=== PATIENT | male | born 1965 | race Two or more races ===

== ENCOUNTER → 2020-02-06 07:46 | Outpatient (REF) | payer MEDICARE, MEDICAID, SELFPAY ==
--- NOTE | 2020-02-06 | NM_ITS ---
EXAMINATION: RADIONUCLIDE SOLID FOOD GASTRIC EMPTYING 4-HOUR STUDY CLINICAL INFORMATION: Nausea and vomiting. COMPARISON: No previous gastric emptying study is available for comparison. TECHNIQUE: A standard meal consisting of 4 oz of Egg Beaters brand equivalent tagged with 920 microcuries Tc-99m Sulfur Colloid, 8 oz water and 2 slices of toast with jelly was administered orally to the patient. Images were obtained using a dual head gamma camera in the anterior and posterior projections over of the stomach immediately post ingestion and at hourly intervals up to 4 hours post ingestion. The anterior and posterior counts at each time interval were averaged using the geometric mean and expressed as percentage of the immediate post ingestion counts. FINDINGS: There is good visualization of activity in the stomach immediately post ingestion. As the study progresses, there is good clearance of activity from the stomach and visualization of progressively increasing small bowel activity. By the end of the study, there is almost no retention noted in the stomach. Retention in the stomach at each time interval was: 1 hour 30% (normal 37%-90%) 2 hours 7% (normal 30%-60%) 3 hours 6% 4 hours 6% (normal 0%-10%) NM/NM gastric emptying study IMPRESSION: Normal 4-hour solid food gastric emptying study.
== END ==
LOC: HO.NUCMED 07:46
PROVIDERS: PCP Internal Medicine; Visit Provider Internal Medicine Gastroenterology
DX: R11.2 Nausea with vomiting, unspecified (principal); K21.9 Gastro-esophageal reflux disease without esophagitis
CPT/HCPCS: 78264; A9541

== ENCOUNTER → 2020-02-19 08:31 | Outpatient (BNVA) | payer MEDICARE, MEDICAID, SELFPAY | PROVIDERS: PCP Internal Medicine; Visit Provider Surgery | DX: K64.4 Residual hemorrhoidal skin tags (principal); K64.8 Other hemorrhoids | CPT/HCPCS: 46600; 99212 ==

== ENCOUNTER 2020-03-03 14:06 | Emergency (ER) | payer MEDICARE, MEDICAID, SELFPAY ==
[2020-03-03 14:36] VITALS: BP 151/87; PULSE 100; RESP 16; TEMP 36.6; O2SAT 97; BMI 35.5
[2020-03-03 15:21] VITALS: BP 150/95; PULSE 98; RESP 16; TEMP 36.7; O2SAT 97
--- NOTE | 2020-03-03 15:39 | ED.BACK ---
HPI - Back Pain/Injury General Chief Complaint: Back Pain/Injury Stated Complaint: back pain,no inj Time Seen by Provider: 03/03/20 15:34 Source: patient Mode of arrival: ambulatory Limitations: no limitations History of Present Illness HPI Narrative: 54-year-old male with a past medical history of diabetes and asthma presenting to the ED with complaints of left mid to lower back pain radiating to his left lower leg for the past 3 weeks worse today. Denies any injuries or any additional complaints or concerns at this time. Reports he had a similar episode although it was on the right side but similar presentation. Patient reports it is worse with all types of movement. Relieved by nothing. Reports when he had a similar presentation in the past he went to the hospital multiple times and they finally gave him steroids and that when he has symptomatic relief therefore is Requesting steroids at this time. Related Data Home Medications Medication Instructions Recorded Confirmed aspirin 81 mg chewable tablet 81 mg PO DAILY 02/19/20 atorvastatin 40 mg tablet 40 mg PO BEDTIME 02/19/20 dulaglutide 1.5 mg/0.5 mL 1.5 mg SUBCUT QWEEK 02/19/20 subcutaneous pen injector insulin glargine 100 unit/mL (3 80 unit SUBCUT QPM ml 02/19/20 mL) subcutaneous pen losartan 100 mg tablet 100 mg PO DAILY 02/19/20 metformin 500 mg tablet 500 mg PO BID 02/19/20 methadone 10 mg tablet 10 mg PO Q6-8H PRN 02/19/20 montelukast 10 mg tablet 10 mg PO DAILY 02/19/20 pantoprazole 40 mg tablet,delayed 40 mg PO BID tab 02/19/20 release sucralfate 100 mg/mL oral 5 ml PO BID ml 02/19/20 suspension Previous Rx's Medication Instructions Recorded menthol 0.44 %-zinc oxide 20.6 % 1 applic TOPICAL QID PRN #71 g 02/19/20 topical ointment cyclobenzaprine 10 mg PO TID PRN #10 tab 03/03/20 ibuprofen 800 mg PO Q8H PRN #14 tab 03/03/20 prednisone 40 mg PO DAILY 5 Days #10 tab 03/03/20 Allergies Allergy/AdvReac Type Severity Reaction Status Date / Time Penicillins [PENICILLINS] Allergy Unknown RASH Unverified 01/11/20 15:08 Review of Systems Review of Systems: Constitutional : No trauma, No Weight loss, No Fever, No Chills, ENT/Mouth : No Hearing loss, No Ear Pain, No Nasal Congestion, No Sinus Pain, No Hoarseness, No sore throat, No Rhinorrhea, No Swallowing Difficulty Cardiovascular : No Chest Pain, No SOB Respiratory : No Cough, No Dyspnea Gastrointestinal : No Nausea, No Vomiting, No Diarrhea, No abdominal Pain, No Hematochezia, No Melena Genitourinary : No Dysuria, No Urinary Frequency, No Hematuria, No Urinary or Bowel Incontinence/retention Musculoskeletal : + Back pain, No neck pain, No joint stiffness, No joint swelling Skin : No Skin Lesions, No rash or signs of infection Neuro : No Weakness, No radiation, No Numbness, No Paresthesias, No headache, no loss of bowel or bladder incontinence, no saddle anesthesia Denies history of IV drug usage. Yes all other systems are reviewed and are negative [facility] Past Medical History Attestation statement: The following information was validated with the patient. Medical History Asthma Bleeding hemorrhoids Diabetes mellitus Surgical History History of carpal tunnel release History of colonoscopy History of neck surgery History of release of tendon History of sinus surgery History of tonsillectomy History of umbilical hernia repair Family History Family History Mother History of colon cancer Brother History of liver cancer Maternal Aunt History of colon cancer Social History Social History Alcohol intake: never Smoking Status: Never smoker Smoked in Last 30 Days: No Use of substances other than those prescribed or required for medical reasons: No Advance Directives: No Advance Directives Information Provided: Yes Physical Exam Vital Signs: Vital Signs: Last Vital Signs Temp 98.1 F 03/03/20 15:21 Pulse 98 03/03/20 15:21 Resp 16 03/03/20 15:21 BP 150/95 H 03/03/20 15:21 Pulse Ox 97 03/03/20 15:21 Body Mass Index 35.5 vital signs have been reviewed as normal and appeared to be correct. Blood pressure normal. Heart rate normal. Respiration rate normal. Temperature normal. Oxygen saturation normal. Appearance: Alert. Oriented X3. No acute distress. Head: Normal external exam. Normocephalic. Atraumatic. No Rodriguez signs noted. No raccoon eyes noted Eyes: PERRLA. EOMI. Conjunctiva and sclera normal. Eyelids normal. ENT: EAC normal. TM's Normal. Pharynx normal. Uvula midline. Moist mucous membranes. No trismus noted. No drooling noted. No muffled voice noted. Neck: Normal inspection. Neck supple. FROM. No adenopathy. Thyroid Normal. No meningeal signs. No neck mass noted. CVS: Normal heart rate and rhythm. Heart sound normal. No murmurs noted. Pulses normal throughout. Respiratory: No respiratory distress. Painless inspiration. Breath sounds normal. No wheezes/rales/rhonchi noted. Chest nontender. No accessory muscle usage noted or decreased air movement noted. Abdomen: Soft and nontender. Bowel sounds normal in all 4 quadrants. No distention noted. No organomegaly noted. No visible injury noted. Back: No CVA tenderness. Full range of motion noted. No obvious deformities, or edema. Mild para-spinal muscular tenderness from lumbar region to coccyx. Full ROM in back and lower extremities. 5/5 strength hip extension/flexion, abduction, adduction. Mild Lumbar pain with hip flexion against resistance. Straight leg raise test negative on right; Straight leg raise test potitive on left; Reflexes normal ankle and knee bilaterally; EHL motor strength normal bilaterally Skin: Skin warm and dry. Normal skin color. Normal skin turgor. No rashes/lesions/lacerations noted. Extremities: No lower extremity edema. Extremities exhibit normal range of motion. Extremities nontender. Neuro: Oriented X 3. No motor deficit. No sensory deficit. Reflexes normal. Course Course Course Narrative: Pt c likely muscular pain, but could be herniated disc. Neuro exam shows no deficits. Not c/w AAA/epidural abscess/dissection.No high risk Hx (Incont, fever, immunosupp, recent surgery/LP, coag, signif trauma, wt loss, puls mass, hx/o Ca, TB, or IVDU) to warrant MRI/CT today. Not c/w Pyelo/UTI/kidney stone/spinal fx. Not cauda equina syndrome. DC c meds and f/u. MDM - Back Pain/Injury Medical Records Attestation: I reviewed the patient's medical records. Discharge Plan Discharge Clinical Impression: Back pain, Sciatica Patient Disposition: Home, Self-Care Instructions: Sciatica (ED), Lumbar Radiculopathy (ED), Lower Back Exercises (ED) Prescriptions: New prednisone 20 mg tablet 40 mg PO DAILY 5 Days Qty: 10 RF: 0 cyclobenzaprine 10 mg tablet 10 mg PO TID PRN (Reason: muscle spasm) Qty: 10 RF: 0 ibuprofen 800 mg tablet 800 mg PO Q8H PRN (Reason: pain) Qty: 14 RF: 0 No Action metformin 500 mg tablet 500 mg PO BID RF: 0 Lantus Solostar U-100 Insulin 100 unit/mL (3 mL) insulin pen 80 unit subcut QPM RF: 0 Trulicity 1.5 mg/0.5 mL pen injector 1.5 mg subcut QWEEK RF: 0 atorvastatin [Lipitor] 40 mg tablet 40 mg PO BEDTIME RF: 0 losartan 100 mg tablet 100 mg PO DAILY RF: 0 montelukast [Singulair] 10 mg tablet 10 mg PO DAILY RF: 0 pantoprazole 40 mg tablet,delayed release (DR/EC) 40 mg PO BID RF: 0 methadone 10 mg tablet 10 mg PO Q6-8H PRNRF: 0 sucralfate [Carafate] 100 mg/mL suspension 5 ml PO BID RF: 0 aspirin [Aspirin Childrens] 81 mg tablet,chewable 81 mg PO DAILY RF: 0 Calmoseptine 0.44-20.6 % ointment 1 applic topical QID PRN (Reason: skin irritation) Qty: 71 RF: 3 Referrals: Vamshi Man MD [Primary Care Provider] - 2 days Stand Alone Forms: Work/School Release Print Language: Turkish
== END 2020-03-03 16:09 | disposition home or self-care (01) ==
PROVIDERS: Emergency Provider Emergency Medicine; PCP Internal Medicine
DX: M54.40 Lumbago with sciatica, unspecified side (principal); Z79.899 Other long term (current) drug therapy
CPT/HCPCS: 99283; 99284

== ENCOUNTER → 2020-04-13 09:12 | Outpatient (BNVA) | payer MEDICARE, MEDICAID, SELFPAY | PROVIDERS: PCP Internal Medicine; Visit Provider Internal Medicine Gastroenterology | DX: Z13.89 Encounter for screening for other disorder (principal) | CPT/HCPCS: Q3014 ==

== ENCOUNTER 2020-07-09 09:23 | Outpatient (REF) | payer MEDICARE, MEDICAID, SELFPAY ==
[2020-07-09 10:54] LABS: MANUAL DIFF FLAG NO
[2020-07-09 11:01] LABS: Basophils Percent Auto 0.6 % (0-2); Eosinophils Absolute Auto 0.1 X10*3/uL (0.0-0.4); Eosinophils Percent Auto 1.5 % (0-4); Hematocrit 45.3 % (42-52); Hemoglobin 14.5 g/dl (14.0-18.0); Imm Gran Abs Auto 0.01 X10*3/uL (0.00-0.03); Imm Gran Pct Auto 0.1 % (0.0-0.4); Lymphocytes Absolute Auto 1.6 X10*3/uL (1.2-4.9); Mean Corpuscular Hemoglobin 27.8 pg (27.0-33.0); Mean Corpuscular Volume 86.8 fL (80-98); Mean Platelet Volume 9.6 fL (9.4-12.4); Monocytes Absolute Auto 0.8 X10*3/uL (0.1-1.2); Monocytes Percent Auto 11.2 % (2-11); Neutrophils Absolute Auto 4.3 X10*3/uL (2.0-8.3); Neutrophils Percent Auto 63.6 % (45-73); Platelet Count 197 X10*3/uL (160-400); Red Blood Count 5.22 X10*6/uL (4.60-5.80); Red Cell Distribution Width 12.8 % (11.0-16.0); White Blood Count 6.8 X10*3/uL (4.8-10.8)
[2020-07-09 11:24] LABS: Alanine Aminotransferase 85 U/L (0-40); Albumin Level 4.1 g/dL (3.5-5.0); Alkaline Phosphatase 68 U/L (39-117); Anion Gap 13 (12-20); Aspartate Amino Transferase 43 U/L (5-37); Bilirubin Total 0.7 mg/dL (0.0-1.0); Blood Urea Nitrogen 10 mg/dL (9-16); Calcium 8.8 mg/dL (8.4-10.2); Carbon Dioxide 25 mmol/L (22-29); Chloride 101 mmol/L (96-108); Estimated Glomerular Filt Rate > 60; Glucose Random 259 mg/dL (60-115); Potassium 4.7 mmol/L (3.3-5.1); Sodium 134 mmol/L (135-145); Total Protein 6.5 g/dL (6.5-8.0)
[2020-07-09 11:46] LABS: Glucose Urine UA >=1000 MG/DL (NEG); Leukocyte Esterase Urine NEG (NEG); Nitrite Urine NEG (NEG); Specific Gravity - Urine 1.015 (1.005-1.025); Urine Blood NEG (NEG); Urine Ketones NEG (NEG); Urine Protein NEG (NEG-TRACE)
[2020-07-09 11:49] LABS: Appearance Urine CLEAR; Color Urine YELLOW
[2020-07-09 12:19] LABS: RBC Urine 0 /HPF (0); WBC Urine 0 /HPF (0-4)
[2020-07-09 14:19] LABS: CT PCR NOT DETECTED (Not Detect.); NG PCR NOT DETECTED (Not Detect.)
== END 2020-07-09 09:24 | disposition home or self-care (01) ==
LOC: HO.LAB 09:23
PROVIDERS: PCP Internal Medicine; Visit Provider Internal Medicine Gastroenterology
DX: K64.9 Unspecified hemorrhoids (principal); R13.10 Dysphagia, unspecified; R30.0 Dysuria; K57.90 Diverticulosis of intestine, part unspecified, without perforation or abscess without bleeding; K21.9 Gastro-esophageal reflux disease without esophagitis; E11.9 Type 2 diabetes mellitus without complications
CPT/HCPCS: 80053; 81001; 85025; 87491; 87591; 99212

== ENCOUNTER 2020-08-19 07:58 | Day surgery (SDC) | payer MEDICARE, MEDICAID, SELFPAY ==
[2020-08-13 10:28] VITALS: BMI 35.0
--- NOTE | 2020-08-18 10:38 | P.CONAN_ITS ---
Documented by User: Maylin Peyton 08/18/20 10:39 HPI - Anesthesia Eval Consult details Narrative: 55yo M for Upper Endoscopy with Balloon Dilation Methadone daily PMF Active Problems Active Problems: All Active Problems (Updated 08/13/20 @ 10:24 by Lesley Miller) Dysphagia (Acute) GERD (gastroesophageal reflux disease) (Acute) Constipation by delayed colonic transit (Acute) Bleeding hemorrhoids (Acute) Diabetes mellitus (Acute) Asthma (Acute) Past Medical History Medical History Asthma Bleeding hemorrhoids Diabetes mellitus Elevated cholesterol GERD (gastroesophageal reflux disease) HTN (hypertension) Family History Family History Mother History of colon cancer Brother History of liver cancer Maternal Aunt History of colon cancer Father No problems noted. Surgical History Surgical History History of carpal tunnel release History of colonoscopy History of esophagogastroduodenoscopy (EGD) History of neck surgery History of release of tendon History of sinus surgery History of tonsillectomy History of umbilical hernia repair Social History Social History Household Members: None Alcohol intake: never Smoking Status: Never smoker Use of substances other than those prescribed or required for medical reasons: No Advance Directives Information Provided: No Meds Allergies Allergy/AdvReac Type Severity Reaction Status Date / Time Penicillins [PENICILLINS] Allergy Unknown RASH Verified 07/09/20 09:42 Home Medications Medication Instructions Recorded Confirmed Last Taken Type aspirin 81 mg chewable tablet 81 mg PO DAILY 02/19/20 04/13/20 Unknown History atorvastatin 40 mg tablet 40 mg PO BEDTIME 02/19/20 04/13/20 Unknown History dulaglutide 1.5 mg/0.5 mL 1.5 mg SUBCUT QWEEK 02/19/20 04/13/20 Unknown History subcutaneous pen injector insulin glargine 100 unit/mL (3 80 unit SUBCUT QPM ml 02/19/20 04/13/20 Unknown History mL) subcutaneous pen losartan 100 mg tablet 100 mg PO DAILY 02/19/20 04/13/20 Unknown History metformin 500 mg tablet 500 mg PO BID 02/19/20 04/13/20 Unknown History methadone 10 mg tablet 10 mg PO Q6-8H PRN 02/19/20 04/13/20 08/19/20 History montelukast 10 mg tablet 10 mg PO DAILY 02/19/20 04/13/20 Unknown History sucralfate 100 mg/mL oral 5 ml PO BID ml 02/19/20 04/13/20 Unknown History suspension Exam Exam Date and Time: August 18, 2020 1038 Height,Weight and Vital Signs: Height 6 ft 2 in Weight 123.944 kg Assessment and Plan Assessment Anesthesia Assessment: Chart Reviewed Documented by User: Gabbie Khan 08/19/20 08:33 [facility] Past Medical History Medical History Asthma Bleeding hemorrhoids Diabetes mellitus Elevated cholesterol GERD (gastroesophageal reflux disease) HTN (hypertension) Family History Family History Mother History of colon cancer Brother History of liver cancer Maternal Aunt History of colon cancer Father No problems noted. Surgical History Surgical History History of carpal tunnel release History of colonoscopy History of esophagogastroduodenoscopy (EGD) History of neck surgery History of release of tendon History of sinus surgery History of tonsillectomy History of umbilical hernia repair Social History Social History Household Members: None Alcohol intake: never Smoking Status: Never smoker Use of substances other than those prescribed or required for medical reasons: No Advance Directives Information Provided: No Meds Allergies Allergy/AdvReac Type Severity Reaction Status Date / Time Penicillins [PENICILLINS] Allergy Unknown RASH Verified 07/09/20 09:42 Home Medications Medication Instructions Recorded Confirmed Last Taken Type aspirin 81 mg chewable tablet 81 mg PO DAILY 02/19/20 04/13/20 Unknown History atorvastatin 40 mg tablet 40 mg PO BEDTIME 02/19/20 04/13/20 Unknown History dulaglutide 1.5 mg/0.5 mL 1.5 mg SUBCUT QWEEK 02/19/20 04/13/20 Unknown History subcutaneous pen injector insulin glargine 100 unit/mL (3 80 unit SUBCUT QPM ml 02/19/20 04/13/20 Unknown History mL) subcutaneous pen losartan 100 mg tablet 100 mg PO DAILY 02/19/20 04/13/20 Unknown History metformin 500 mg tablet 500 mg PO BID 02/19/20 04/13/20 Unknown History methadone 10 mg tablet 10 mg PO Q6-8H PRN 02/19/20 04/13/20 08/19/20 History montelukast 10 mg tablet 10 mg PO DAILY 02/19/20 04/13/20 Unknown History sucralfate 100 mg/mL oral 5 ml PO BID ml 02/19/20 04/13/20 Unknown History suspension Exam Airway Mallampati Class: II TM Dist: >3cm Neck ROM: Limited Loose/Missing/Broken Teeth: No Heart: RRR Lungs: CTA Assessment and Plan Assessment Anesthesia Assessment: Anesthesia Plan Discussed and Chart Reviewed Final Anesthetic Review NPO: Yes ASA Class: II Final Preanesthetic Review: Meds/Allgs Chart Reviewed, Consent Obtained/Reviewed and Anes Risks/Benef Reviewed Patient Risk: Low Procedure Risk: Intermediate Anesthetic Plan Anesthetic Plan: MAC: Disposition: Standard PACU
[2020-08-19 08:01] VITALS: BP 138/88; PULSE 112; RESP 18; TEMP 36.8; O2SAT 96
[2020-08-19 08:07] LABS: Glucose, Whole Blood 201 mg/dL (60-115)
[2020-08-19] MEDS: Lactated Ringers 1,000 ML 100 ML IVCONT (08:16)
--- NOTE | 2020-08-19 08:23 | P.HPSUR_ITS ---
Pre-Procedural Eval Section B Chief Complaint: Dysphagia Details of Present Illness: colon cancer Relevant Family History (Specify if Yes): Yes Relevant Social History: None Present Medications: see Short Stay Collaborative assessment Medical History: Significant History (Asthma Bleeding hemorrhoids Diabetes mellitus) History of Previous Operations: Relevant previous surgery/procedure and date(s) (History of carpal tunnel release History of colonoscopy History of esophagogastroduodenoscopy (EGD) History of neck surgery History of release of tendon History of sinus surgery History of tonsillectomy History of umbilical hernia repair) Allergies: Allergies Allergy/AdvReac Type Severity Reaction Status Date / Time Penicillins [PENICILLINS] Allergy Unknown RASH Verified 07/09/20 09:42 Review of Systems Sugical H&P ROS: Negative: Constitution, Cardiovascular, Respiratory, Neurological, Psychiatric, Hem-Onc, Allergic/Immunologic, Gastrointestinal, Genitourinary, Musculoskeletal, Integumentary, Endocrine and Eyes/Ears/Nose/Throat Exam Surgical H&P Exam: Normal: HEENT, Normal: Heart, Normal: Lungs, Normal: Ex tremities, Normal: Abdomen, Normal: Skin and Normal: Neurological Plan Diagnosis/Plan: Unchanged I have reviewed the history and physical and performed a pertinent physical examination on my patient. No changes have occurred unless specified.
--- NOTE | 2020-08-19 09:32 | P.BOP_ITS ---
Brief Operative Note Date of Service: 08/19/20 Pre-op diagnosis: dysphagia Post-op diagnosis: same Procedure: see op note Surgeon: Cynthia Howe MD Anesthesia: MAC Was an Helicopter Mechanic used for this Procedure?: No Estimated blood loss (mL): 0 Condition: stable Disposition: PACU
--- NOTE | 2020-08-19 09:33 | W.PM.OPN ---
Operative Note Operative Note Date of Service: 08/19/20 Narrative: Procedure Description: EGD FLEXIBLE TRANSORAL UPPER GASTROINTESTINAL ENDOSCOPY UPPER ENDOSCOPY Consent: Indications for the procedure and potential complications of bleeding, perforation, reaction to medications and missed diagnosis were discussed with the patient and informed consent was obtained. Instrument: Olympus GIF H 190 J mid size upper endoscope Monitoring: Vital signs and clinical assessment, continuous EKG monitoring, Pulse oximetry, Carbon Dioxide monitoring and blood pressure monitoring were done throughout the procedure. Procedure: The patient was placed in the left lateral decubitis position and pre-procedure medications were administered and a bite block was placed. The endoscope was inserted into the mouth and advanced under direct vision to the third part of duodenum. A careful inspection was made as the upper endoscope was withdrawn including a retroflexed examination of the proximal stomach; Findings and interventions are described below. Findings: Larynx:normal Esophagus: GE junction at 40 cm, diaphragm hiatus at 40 cm, no varices or esophagitis, bx taken from GEJ and distal esophagus. A 16 mm bougie was used for dilation over a savary wire, no tears seen Stomach: Streaky erythema akash in mid and proximal stomach. Biopsies were obtained. Grade 2 flap valve on retroflexed examination of the cardia. Duodenum: Normal bulb and descending duodenum, Intervention: Biopsies as noted above, balloon dilation Impression/Findings: gastritis PLAN: confirm which anti acid medications he is taking and reassess compliance If taking esomeprazole and carafate then can change PPI and see if get improved response or add pepcid for night
[2020-08-19 09:38] VITALS: BP 131/85; PULSE 98; RESP 16; TEMP 36.3; O2SAT 97
[2020-08-19 09:53] VITALS: BP 142/91; PULSE 97; RESP 17; TEMP 36.3; O2SAT 97
== END 2020-08-19 10:33 | disposition home or self-care (01) ==
PROVIDERS: PCP Internal Medicine; Visit Provider Internal Medicine Gastroenterology
PROC: (CPT 43248; principal; 2020-08-19 09:20)
DX: R13.10 Dysphagia, unspecified (principal); K29.50 Unspecified chronic gastritis without bleeding; K44.9 Diaphragmatic hernia without obstruction or gangrene; J45.909 Unspecified asthma, uncomplicated; I10 Essential (primary) hypertension; E11.9 Type 2 diabetes mellitus without complications; Z79.4 Long term (current) use of insulin; Z79.899 Other long term (current) drug therapy; F11.90 Opioid use, unspecified, uncomplicated
CPT/HCPCS: 43248; 43239; 82947; 88305; 88342; C1769; J3010

== ENCOUNTER → 2020-09-10 09:37 | Outpatient (BNVA) | payer MEDICARE, MEDICAID, SELFPAY | PROVIDERS: PCP Internal Medicine; Visit Provider Internal Medicine Gastroenterology | DX: R13.10 Dysphagia, unspecified (principal); K21.9 Gastro-esophageal reflux disease without esophagitis; Z79.899 Other long term (current) drug therapy | CPT/HCPCS: Q3014 ==

== ENCOUNTER → 2021-04-12 11:40 | Outpatient (BNVA) | payer MEDICARE, MEDICAID, SELFPAY | PROVIDERS: Visit Provider Internal Medicine Gastroenterology | DX: K21.9 Gastro-esophageal reflux disease without esophagitis (principal); R13.10 Dysphagia, unspecified | CPT/HCPCS: 99212 ==

== ENCOUNTER → 2021-08-12 09:54 | Outpatient (BNVA) | payer MEDICARE, MEDICAID, SELFPAY | PROVIDERS: Visit Provider Internal Medicine Gastroenterology | DX: K21.9 Gastro-esophageal reflux disease without esophagitis (principal); R10.10 Upper abdominal pain, unspecified; R13.10 Dysphagia, unspecified | CPT/HCPCS: 99212 ==

== ENCOUNTER 2021-08-20 06:14 | Emergency (ER) | payer MEDICARE, MEDICAID, SELFPAY ==
[2021-08-20 06:21] VITALS: BP 144/88; PULSE 87; RESP 18; TEMP 36.3; O2SAT 99; BMI 32.8
[2021-08-20] MEDS: Ketorolac Tromethamine 60 MG/2 ML VIAL IM (08:35)
--- NOTE | 2021-08-20 08:37 | ED_ITS ---
HPI - Back Pain/Injury General Chief Complaint: Back Pain/Injury Stated Complaint: R side lower back & leg pain Time Seen by Provider: 08/20/21 08:18 Source: patient Mode of arrival: ambulatory Limitations: no limitations History of Present Illness HPI Narrative: 56-year-old male with a history of asthma, diabetes, GERD, sciatica, high cholesterol, hypertension here with reports of 1 week of right-sided back pain which radiates down the right leg with intermittent numbness and tingling. Patient denies any numbness in the groin. No bowel or bladder incontinence. No fevers or chills. Patient denies any history of trauma or injury. Patient tells me he has a history of sciatica and this feels similar. In the past is an improvement with prednisone and muscle relaxants. Related Data Home Medications Medication Instructions Recorded Confirmed aspirin 81 mg chewable tablet 81 mg PO DAILY 02/19/20 04/13/20 (Aspirin Childrens) atorvastatin 40 mg tablet (Lipitor) 40 mg PO BEDTIME 02/19/20 04/13/20 dulaglutide 1.5 mg/0.5 mL 1.5 mg SUBCUT QWEEK 02/19/20 04/13/20 subcutaneous pen injector (Trulicity) insulin glargine 100 unit/mL (3 80 unit SUBCUT QPM ml 02/19/20 04/13/20 mL) subcutaneous pen (Lantus Solostar U-100 Insulin) losartan 100 mg tablet 100 mg PO DAILY 02/19/20 04/13/20 metformin 500 mg tablet 500 mg PO BID 02/19/20 04/13/20 methadone 10 mg tablet 10 mg PO Q6-8H PRN 02/19/20 04/13/20 montelukast 10 mg tablet 10 mg PO DAILY 02/19/20 04/13/20 (Singulair) bupropion HCl 300 mg 24 hr tablet, 300 mg PO QAM 09/10/20 extended release duloxetine 60 mg capsule,delayed 60 mg PO DAILY 09/10/20 release semaglutide 2 mg/dose (8 mg/3 mL) 2 mg SUBCUT QWEEK 08/12/21 subcutaneous pen injector (Ozempic) zolpidem 10 mg tablet 10 mg PO BEDTIME PRN 08/12/21 Previous Rx's Medication Instructions Recorded menthol 0.44 %-zinc oxide 20.6 % 1 applic TOPICAL QID PRN #71 g 02/19/20 topical ointment (Calmoseptine) cyclobenzaprine 10 mg tablet 10 mg PO TID PRN #10 tab 03/03/20 ibuprofen 800 mg tablet 800 mg PO Q8H PRN #14 tab 03/03/20 sucralfate 1 gram tablet 1 g PO BID #60 tab 04/13/20 hydrocortisone 2.5 % topical cream 1 appl [place] BID-QID PRN #30 g 07/09/20 with perineal applicator (Procto-Med HC) sucralfate 100 mg/mL oral 10 ml PO BID #400 ml 08/19/20 suspension famotidine 40 mg tablet (Pepcid) 40 mg PO BEDTIME #60 tab 09/10/20 esomeprazole magnesium 40 mg 40 mg PO DAILY #30 cap 08/03/21 capsule,delayed release dicyclomine 10 mg capsule 10 mg PO TID #30 cap 08/12/21 psyllium husk 3.4 gram/5.4 gram 1 tbsp PO BID #660 g 08/12/21 oral powder (Metamucil) cyclobenzaprine 10 mg tablet 10 mg PO TID PRN #14 tab 08/20/21 ibuprofen 800 mg tablet 800 mg PO Q8H PRN #30 tab 08/20/21 prednisone 20 mg tablet 40 mg PO DAILY #10 tab 08/20/21 Allergies Allergy/AdvReac Type Severity Reaction Status Date / Time Penicillins [PENICILLINS] Allergy Unknown RASH Verified 08/20/21 06:20 Review of Systems Review of Systems: Yes all other systems are reviewed and are negative Constitutional: Constitutional: Reports no additional constitutional c omplaints, Denies body ache(s), Denies chills, Denies fever(s), Denies headache(s) and Denies weakness Eyes: Eyes: Reports no additional eye complaints and Denies change in vision ENT: Reports system reviewed and no additional complaints, except as documented, Denies dizziness, Denies headache(s), Denies nasal congestion, Denies nasal discharge and Denies neck pain Cardiovascular: Cardiovascular: Reports no additional cardiovascular complaints, Denies chest pain, Denies leg edema and Denies dyspnea Respiratory: Respiratory: Reports no additional respiratory complaints, Denies cough and Denies dyspnea Gastrointestinal: Gastrointestinal: Reports no additional gastrointestinal complaints, Denies abdominal pain, Denies diarrhea, Denies nausea and Denies vomiting Genitourinary: Genitourinary: Denies urinary incontinence Musculoskeletal: Musculoskeletal: Reports no additional musculoskeletal complaints, Reports back pain, Denies arthralgias, Denies joint swelling, Denies neck pain, Denies numbness and Denies tingling Integumentary/Breasts: Skin/Breast: Reports system reviewed and no additional complaints, except as docu and Denies rash Neurologic: Reports system reviewed and no additional complaints, except as documented, Denies Abnormal speech present, Denies dizziness, Denies headache(s), Denies numbness, Denies tingling and Denies weakness PMFSH Past Medical History Attestation statement: The following information was validated with the patient. Source: old records reviewed and nursing notes reviewed Medical History Asthma Bleeding hemorrhoids Diabetes mellitus Elevated cholesterol GERD (gastroesophageal reflux disease) HTN (hypertension) Surgical History History of carpal tunnel release History of colonoscopy History of esophagogastroduodenoscopy (EGD) History of neck surgery History of release of tendon History of sinus surgery History of tonsillectomy History of umbilical hernia repair Family History Family History Mother History of colon cancer Brother History of liver cancer Maternal Aunt History of colon cancer Father No problems noted. Social History Social History Household Members: None Alcohol intake: never Advance Directives: No Advance Directives Information Provided: Yes Physical Exam Vital Signs: Vital Signs: Last Vital Signs Temp 97.3 F 08/20/21 06:21 Pulse 87 08/20/21 06:21 Resp 18 08/20/21 06:21 BP 144/88 H 08/20/21 06:21 Pulse Ox 99 08/20/21 06:21 BMI result Body Mass Index 32.8 Const: General: cooperative, healthy appearing, comfortable and no acute d istress Orientation/consciousness: patient oriented x3 Limitations: no limitations HEENT: Head: Yes normal to inspection Ears: hearing grossly normal bilaterally General nose exam: Normal external nose present Face and sinu s: Yes normal facial exam Mouth: Normal oral and palatal mucosa present Throat: Yes posterior oropharynx normal Eyes: General: appearance normal, both eyes and all related structures Pupils: Equal, round and reactive pupils present Neck: Neck: Yes normal visual inspection Chest: Chest palpation & inspection: normal inspection of the chest Resp: Effort & Inspection: normal respiratory effort Auscultation: clear to auscultation bilaterally Cardio: Rate: regular rate Rhythm: regular rhythm Peripheral pulses: Peripheral pulses 2+ throughout GI: Inspection: Yes normal to inspection Palpation (GI): Soft to palpation and nontender Auscultation: normal bowel sounds Back/Spine/Pelvis: Other: There is tenderness to the right lumbar soft tissue and over the right buttocks. There is no midline tenderness, no step-offs or deformities of the lower spine. There is pain that is worsened with a right straight leg raise. Thoracic/Lumbar Spine: thoracic and lumbar spine normal to inspection Skin: General skin exam: no rashes or lesions noted Neuro: General: patient oriented x3, no focal motor deficits and normal sensation to monofilament Cranial nerves: Yes CN's II-XII intact bilaterally, Yes Equal, round and reactive pupils present, Yes Bilaterally intact EOM present, Yes Nystagmus not present, Yes Normal facial strength present and Yes Midline tongue present Cognition (Neuro): normal cognition Speech: No Abnormal speech present Gait exam (Neuro): Normal gait present Motor exam (neuro): 5/5 motor strength present throughout Sensory Exam: Normal double simultaneous stimulation for sensation Deep tendon reflexes (DTR's): Right patellar reflex intensity grade: 2+ and Left patellar reflex intensity grade: 2+ Extrem: General: Yes normal to inspection Course Course Course Narrative: 56-year-old male here with reports of acute on chronic right-sided low back pain with radiation down the right leg with a history of sciatica. Patient states this feels similar to his previous sciatic episodes which have improved the past with steroids and Flexeril. No reports of injury or trauma. No weakness, incontinence or saddle anesthesia. No red flag symptoms or neurological deficits. Patient given Toradol in the emergency department with improvement of symptoms. Will discharge home with NSAID, muscle relaxant, prednisone. Reviewed worrisome signs and symptoms of when to return to the emergency department. Comfortable discharge home. MDM - Back Pain/Injury MDM Narrative Medical decision making narrative: Low concern for epidural abscess with no history of IV drug abuse or immunocompromised state and no reports of fevers within normal neurological exam. Low concern for cauda equina with no incontinence, weakness, normal neuro exam. Medical Records Attestation: I reviewed the patient's medical records. Lab Data Attestation: I reviewed the patient's lab results. Discharge Plan Discharge Clinical Impression: Sciatica Patient Disposition: Home, Self-Care Instructions: Sciatica (ED) Additional Instructions: Gentle stretching Heat or ice the area Follow-up with primary care doctor in 5-7 days for persistent symptoms Prescriptions: New ibuprofen 800 mg tablet 800 mg PO Q8H PRN (Reason: pain) Qty: 30 0RF cyclobenzaprine 10 mg tablet 10 mg PO TID PRN (Reason: muscle spasm) Qty: 14 0RF prednisone 20 mg tablet 40 mg PO DAILY Qty: 10 0RF No Action esomeprazole magnesium 40 mg capsule,delayed release(DR/EC) 40 mg PO DAILY Qty: 30 1RF cyclobenzaprine 10 mg tablet 10 mg PO TID PRN (Reason: muscle spasm) Qty: 10 0RF ibuprofen 800 mg tablet 800 mg PO Q8H PRN (Reason: pain) Qty: 14 0RF sucralfate 100 mg/mL suspension 10 ml PO BID Qty: 400 1RF sucralfate 1 gram tablet 1 g PO BID Qty: 60 3RF metformin 500 mg tablet 500 mg PO BID 0RF Lantus Solostar U-100 Insulin 100 unit/mL (3 mL) insulin pen 80 unit subcut QPM 0RF Trulicity 1.5 mg/0.5 mL pen injector 1.5 mg subcut QWEEK 0RF atorvastatin [Lipitor] 40 mg tablet 40 mg PO BEDTIME 0RF losartan 100 mg tablet 100 mg PO DAILY 0RF montelukast [Singulair] 10 mg tablet 10 mg PO DAILY 0RF methadone 10 mg tablet 10 mg PO Q6-8H PRN (Reason: Pain) 0RF aspirin [Aspirin Childrens] 81 mg tablet,chewable 81 mg PO DAILY 0RF Calmoseptine 0.44-20.6 % ointment 1 applic topical QID PRN (Reason: skin irritation) Qty: 71 3RF duloxetine 60 mg capsule,delayed release(DR/EC) 60 mg PO DAILY 0RF bupropion HCl 300 mg tablet extended release 24 hr 300 mg PO QAM 0RF famotidine [Pepcid] 40 mg tablet 40 mg PO BEDTIME Qty: 60 3RF hydrocortisone [Procto-Med HC] 2.5 % cream with perineal applicator 1 appl [place] BID-QID PRN (Reason: hemorrhoids) Qty: 30 0RF zolpidem 10 mg tablet 10 mg PO BEDTIME PRN (Reason: insomnia) 0RF Ozempic 2 mg/dose (8 mg/3 mL) pen injector 2 mg subcut QWEEK 0RF dicyclomine 10 mg capsule 10 mg PO TID Qty: 30 0RF Metamucil 3.4 gram/5.4 gram powder 1 tbsp PO BID Qty: 660 2RF Rx Instructions: mix into at least 8 oz of water or juice before administering Referrals: ED Physician,Generic [Physician] - 5 days (for persistent symptoms)
== END 2021-08-20 08:42 | disposition home or self-care (01) ==
PROVIDERS: Emergency Provider Emergency Medicine Emergency Medical Services; PCP Internal Medicine
DX: M54.41 Lumbago with sciatica, right side (principal); E11.9 Type 2 diabetes mellitus without complications; I10 Essential (primary) hypertension; J45.909 Unspecified asthma, uncomplicated
CPT/HCPCS: 96372; 99283; 99284; J1885

== ENCOUNTER 2021-09-19 10:00 | Emergency (ER) | payer MEDICARE, MEDICAID, SELFPAY ==
[2021-09-19 10:04] VITALS: BP 143/88; PULSE 102; RESP 20; TEMP 36.9; O2SAT 97; BMI 34.2
--- NOTE | 2021-09-19 10:36 | ED_ITS ---
HPI - Back Pain/Injury General Chief Complaint: Back Pain/Injury Stated Complaint: r side pain Time Seen by Provider: 09/19/21 10:33 Source: patient Mode of arrival: ambulatory Limitations: language barrier ( Albanian-speaking) History of Present Illness HPI Narrative: 56-year-old male with a past medical history of asthma, diabetes, GERD, hyperlipidemia, hypertension and chronic lower back pain with intermittent episodes of sciatica presenting to the ED with complaints of lower back pain radiating to his right lower leg which is similar to his prior episodes for the past few days worse today. He denies any fevers, chills, dizziness, headaches, neck pain/ stiffness, trouble swallowing or breathing, chest pain or shortness of breath, dyspnea on exertion, orthopnea, paresthesias, palpitations, abdominal pain, flank pain, hematuria, dysuria, urinary incontinence or retention, bowel incontinence or retention, saddle anesthesia, history of IV drug use or any other symptoms complaints or concerns at this time. Reports that he normally gets prescribed Motrin, prednisone and muscle relaxers and that provides symptomatic relief for his pain. He has been seen here in the past for same complaint. MD elicited complaint: back pain Pertinent past history: prior back pain Onset (ago): day(s) Timing: constant and progressively worsening Severity: moderate Similar Symptoms Previously: Yes Quality: burning, stabbing, spasming and throbbing Location: lumbar spine Radiation: right upper leg and right leg below the knee Exacerbating factors: movement, supine positioning, sitting upright, walking and lifting Relieving factors: medication ( Motrin/ prednisone and muscle relaxers in combination) Context: unknown Associated symptoms: denies other symptoms Treatments prior to arrival: cold therapy, heat therapy, NSAIDS and acetaminophen Work related injury: No Related Data Home Medications Medication Instructions Recorded Confirmed aspirin 81 mg chewable tablet 81 mg PO DAILY 02/19/20 04/13/20 (Aspirin Childrens) atorvastatin 40 mg tablet (Lipitor) 40 mg PO BEDTIME 02/19/20 04/13/20 dulaglutide 1.5 mg/0.5 mL 1.5 mg SUBCUT QWEEK 02/19/20 04/13/20 subcutaneous pen injector (Trulicity) insulin glargine 100 unit/mL (3 80 unit SUBCUT QPM ml 02/19/20 04/13/20 mL) subcutaneous pen (Lantus Solostar U-100 Insulin) losartan 100 mg tablet 100 mg PO DAILY 02/19/20 04/13/20 metformin 500 mg tablet 500 mg PO BID 02/19/20 04/13/20 methadone 10 mg tablet 10 mg PO Q6-8H PRN 02/19/20 04/13/20 montelukast 10 mg tablet 10 mg PO DAILY 02/19/20 04/13/20 (Singulair) bupropion HCl 300 mg 24 hr tablet, 300 mg PO QAM 09/10/20 extended release duloxetine 60 mg capsule,delayed 60 mg PO DAILY 09/10/20 release semaglutide 2 mg/dose (8 mg/3 mL) 2 mg SUBCUT QWEEK 08/12/21 subcutaneous pen injector (Ozempic) zolpidem 10 mg tablet 10 mg PO BEDTIME PRN 08/12/21 Previous Rx's Medication Instructions Recorded menthol 0.44 %-zinc oxide 20.6 % 1 applic TOPICAL QID PRN #71 g 02/19/20 topical ointment (Calmoseptine) cyclobenzaprine 10 mg tablet 10 mg PO TID PRN #10 tab 03/03/20 ibuprofen 800 mg tablet 800 mg PO Q8H PRN #14 tab 03/03/20 sucralfate 1 gram tablet 1 g PO BID #60 tab 04/13/20 hydrocortisone 2.5 % topical cream 1 appl [place] BID-QID PRN #30 g 07/09/20 with perineal applicator (Procto-Med HC) sucralfate 100 mg/mL oral 10 ml PO BID #400 ml 08/19/20 suspension famotidine 40 mg tablet (Pepcid) 40 mg PO BEDTIME #60 tab 09/10/20 esomeprazole magnesium 40 mg 40 mg PO DAILY #30 cap 08/03/21 capsule,delayed release psyllium husk 3.4 gram/5.4 gram 1 tbsp PO BID #660 g 08/12/21 oral powder (Metamucil) cyclobenzaprine 10 mg tablet 10 mg PO TID PRN #14 tab 08/20/21 ibuprofen 800 mg tablet 800 mg PO Q8H PRN #30 tab 08/20/21 prednisone 20 mg tablet 40 mg PO DAILY #10 tab 08/20/21 dicyclomine 10 mg capsule 10 mg PO TID #30 cap 09/05/21 cyclobenzaprine 10 mg tablet 10 mg PO Q8H PRN #20 tab 09/19/21 ibuprofen 800 mg tablet 800 mg PO Q8H PRN #14 tab 09/19/21 prednisone 20 mg tablet 40 mg PO DAILY 7 Days #14 tab 09/19/21 Allergies Allergy/AdvReac Type Severity Reaction Status Date / Time Penicillins [PENICILLINS] Allergy Unknown RASH Verified 08/20/21 06:20 Review of Systems Review of Systems: Constitutional : No trauma, No Weight loss, No Fever, No Chills, ENT/Mouth : No Hearing loss, No Ear Pain, No Nasal Congestion, No Sinus Pain, No Hoarseness, No sore throat, No Rhinorrhea, No Swallowing Difficulty Cardiovascular : No Chest Pain, No SOB Respiratory : No Cough, No Dyspnea Gastrointestinal : No Nausea, No Vomiting, No Diarrhea, No abdominal Pain, No Hematochezia, No Melena Genitourinary : No Dysuria, No Urinary Frequency, No Hematuria, No Urinary or Bowel Incontinence/retention Musculoskeletal : + Back pain, No neck pain, No joint stiffness, No joint swelling Skin : No Skin Lesions, No rash or signs of infection Neuro : No Weakness, No radiation, No Numbness, No Paresthesias, No headache, no loss of bowel or bladder incontinence, no saddle anesthesia, Focal weakness, No radiation Denies history of IV drug usage. Yes all other systems are reviewed and are negative [facility] Past Medical History Attestation statement: The following information was validated with the patient. Source: old records reviewed and nursing notes reviewed Medical History Asthma Bleeding hemorrhoids Diabetes mellitus Elevated cholesterol GERD (gastroesophageal reflux disease) HTN (hypertension) Surgical History History of carpal tunnel release History of colonoscopy History of esophagogastroduodenoscopy (EGD) History of neck surgery History of release of tendon History of sinus surgery History of tonsillectomy History of umbilical hernia repair Family History Family History Mother History of colon cancer Brother History of liver cancer Maternal Aunt History of colon cancer Father No problems noted. Social History Social History Household Members: None Alcohol intake: never Advance Directives: Yes Advance Directives Information Provided: Yes Advance Directives on File: No Physical Exam Vital Signs: Vital Signs: Last Vital Signs Temp 98.4 F 09/19/21 10:04 Pulse 102 H 09/19/21 10:04 Resp 20 09/19/21 10:04 BP 143/88 H 09/19/21 10:04 Pulse Ox 97 09/19/21 10:04 BMI result Body Mass Index 34.2 vital signs have been reviewed as normal and appeared to be correct. Blood pressure normal. Heart rate normal. Respiration rate normal. Temperature normal. Oxygen saturation normal. Appearance: Alert. Oriented X3. No acute distress. Head: Normal external exam. Normocephalic. Atraumatic. No Rodriguez signs noted. No raccoon eyes noted Eyes: PERRLA. EOMI. Conjunctiva and sclera normal. Eyelids normal. ENT: EAC normal. TM's Normal. Pharynx normal. Uvula midline. Moist mucous membranes. No trismus noted. No drooling noted. No muffled voice noted. Neck: Normal inspection. Neck supple. FROM. No adenopathy. Thyroid Normal. No meningeal signs. No neck mass noted. CVS: Normal heart rate and rhythm. Heart sound normal. No murmurs noted. Pulses normal throughout. Respiratory: No respiratory distress. Painless inspiration. Breath sounds normal. No wheezes/rales/rhonchi noted. Chest nontender. No accessory muscle usage noted or decreased air movement noted. Abdomen: Soft and nontender. Bowel sounds normal in all 4 quadrants. No distention noted. No organomegaly noted. No visible injury noted. Back: No CVA tenderness. Full range of motion noted. No obvious deformities, or edema. Mild para-spinal muscular tenderness from lumbar region to coccyx. Full ROM in back and lower extremities. 5/5 strength hip extension/flexion, abduction, adduction. Mild Lumbar pain with hip flexion against resistance. Straight leg raise test positive on right; Straight leg raise test negative on left; Reflexes normal ankle and knee bilaterally; EHL motor strength normal bilaterally. No rashes/lesion/induration/fluctuance or signs infection noted. Skin: Skin warm and dry. Normal skin color. Normal skin turgor. No rashes/lesions/lacerations noted. Extremities: No lower extremity edema. Extremities exhibit normal range of motion. Extremities nontender. Neuro: Oriented X 3. No motor deficit. No sensory deficit. Reflexes normal. Patient has a normal steady gait. Course Course Course Narrative: Pt c likely muscular pain, but could be herniated disc. Neuro exam shows no deficits. Not c/w AAA/epidural abscess/dissection.No high risk Hx (Incont, fever, immunosupp, recent surgery/LP, coag, signif trauma, wt loss, puls mass, hx/o Ca, TB, or IVDU) to warrant MRI/CT today. Not c/w Pyelo/UTI/kidney stone/spinal fx. Not cauda equina syndrome. Imaging not currently indicated. DC c meds and f/u. MDM - Back Pain/Injury Medical Records Attestation: I reviewed the patient's medical records. Discharge Plan Discharge Clinical Impression: Lumbar radiculopathy, Sciatica Patient Disposition: Home, Self-Care Instructions: Sciatica (ED), Lumbar Radiculopathy (ED) Prescriptions: New ibuprofen 800 mg tablet 800 mg PO Q8H PRN (Reason: pain) Qty: 14 0RF prednisone 20 mg tablet 40 mg PO DAILY 7 Days Qty: 14 0RF cyclobenzaprine 10 mg tablet 10 mg PO Q8H PRN (Reason: Muscle spasm) Qty: 20 0RF No Action esomeprazole magnesium 40 mg capsule,delayed release(DR/EC) 40 mg PO DAILY Qty: 30 1RF dicyclomine 10 mg capsule 10 mg PO TID Qty: 30 0RF cyclobenzaprine 10 mg tablet 10 mg PO TID PRN (Reason: muscle spasm) Qty: 10 0RF ibuprofen 800 mg tablet 800 mg PO Q8H PRN (Reason: pain) Qty: 14 0RF sucralfate 100 mg/mL suspension 10 ml PO BID Qty: 400 1RF ibuprofen 800 mg tablet 800 mg PO Q8H PRN (Reason: pain) Qty: 30 0RF cyclobenzaprine 10 mg tablet 10 mg PO TID PRN (Reason: muscle spasm) Qty: 14 0RF prednisone 20 mg tablet 40 mg PO DAILY Qty: 10 0RF sucralfate 1 gram tablet 1 g PO BID Qty: 60 3RF metformin 500 mg tablet 500 mg PO BID 0RF Lantus Solostar U-100 Insulin 100 unit/mL (3 mL) insulin pen 80 unit subcut QPM 0RF Trulicity 1.5 mg/0.5 mL pen injector 1.5 mg subcut QWEEK 0RF atorvastatin [Lipitor] 40 mg tablet 40 mg PO BEDTIME 0RF losartan 100 mg tablet 100 mg PO DAILY 0RF montelukast [Singulair] 10 mg tablet 10 mg PO DAILY 0RF methadone 10 mg tablet 10 mg PO Q6-8H PRN (Reason: Pain) 0RF aspirin [Aspirin Childrens] 81 mg tablet,chewable 81 mg PO DAILY 0RF Calmoseptine 0.44-20.6 % ointment 1 applic topical QID PRN (Reason: skin irritation) Qty: 71 3RF duloxetine 60 mg capsule,delayed release(DR/EC) 60 mg PO DAILY 0RF bupropion HCl 300 mg tablet extended release 24 hr 300 mg PO QAM 0RF famotidine [Pepcid] 40 mg tablet 40 mg PO BEDTIME Qty: 60 3RF hydrocortisone [Procto-Med HC] 2.5 % cream with perineal applicator 1 appl [place] BID-QID PRN (Reason: hemorrhoids) Qty: 30 0RF zolpidem 10 mg tablet 10 mg PO BEDTIME PRN (Reason: insomnia) 0RF Ozempic 2 mg/dose (8 mg/3 mL) pen injector 2 mg subcut QWEEK 0RF Metamucil 3.4 gram/5.4 gram powder 1 tbsp PO BID Qty: 660 2RF Rx Instructions: mix into at least 8 oz of water or juice before administering Referrals: Vamshi Man MD [Primary Care Provider] - 2 days Stand Alone Forms: Work/School Release Print Language: Albanian
== END 2021-09-19 10:59 | disposition home or self-care (01) ==
PROVIDERS: Emergency Provider Student in an Organized Health Care Education/Training Program; PCP Internal Medicine
DX: M54.16 Radiculopathy, lumbar region (principal); M54.41 Lumbago with sciatica, right side
CPT/HCPCS: 99282; 99283

== ENCOUNTER 2021-11-02 08:27 | Day surgery (SDC) | payer MEDICARE, MEDICAID, SELFPAY ==
--- NOTE | 2021-10-31 12:10 | HO.ANESPROP2 ---
Documented by User: Maylin Todd NP 10/31/21 12:12 HPI - Anesthesia Eval Consult details Narrative: 56yo M for Upper Endoscopy Methadone daily s/p EGD 08/2020 with TIVA PMFSH Active Problems Active Problems: All Active Problems (Updated 09/20/21 @ 00:02 by Background Dapeter) Dysphagia (Acute) GERD (gastroesophageal reflux disease) (Acute) Constipation by delayed colonic transit (Acute) Upper abdominal pain (Acute) Bleeding hemorrhoids (Acute) Diabetes mellitus (Acute) Asthma (Acute) Past Medical History Medical History Asthma Bleeding hemorrhoids Diabetes mellitus Elevated cholesterol GERD (gastroesophageal reflux disease) HTN (hypertension) Family History Family History Mother History of colon cancer Brother History of liver cancer Maternal Aunt History of colon cancer Father No problems noted. Surgical History Surgical History History of carpal tunnel release History of colonoscopy History of esophagogastroduodenoscopy (EGD) History of neck surgery History of release of tendon History of sinus surgery History of tonsillectomy History of umbilical hernia repair Social History Social History Household Members: None Alcohol intake: never Advance Directives: No Advance Directives Information Provided: Yes Meds Allergies Allergy/AdvReac Type Severity Reaction Status Date / Time Penicillins [PENICILLINS] Allergy Unknown RASH Verified 10/27/21 11:43 Home Medications Medication Instructions Recorded Confirmed Last Taken Type aspirin 81 mg chewable tablet 81 mg PO DAILY 02/19/20 10/27/21 Unknown History (Aspirin Childrens) atorvastatin 40 mg tablet (Lipitor) 40 mg PO BEDTIME 02/19/20 10/27/21 Unknown History dulaglutide 1.5 mg/0.5 mL 1.5 mg subcut QWEEK 02/19/20 10/27/21 Unknown History subcutaneous pen injector (Trulicity) insulin glargine 100 unit/mL (3 80 unit subcut QPM 02/19/20 10/27/21 Unknown History mL) subcutaneous pen (Lantus Solostar U-100 Insulin) losartan 100 mg tablet 100 mg PO DAILY 02/19/20 10/27/21 Unknown History metformin 500 mg tablet 500 mg PO BID 02/19/20 10/27/21 Unknown History methadone 10 mg tablet 10 mg PO Q6-8H PRN Pain 02/19/20 10/27/21 08/19/20 History montelukast 10 mg tablet 10 mg PO DAILY 02/19/20 10/27/21 Unknown History (Singulair) bupropion HCl 300 mg 24 hr tablet, 300 mg PO QAM 09/10/20 10/27/21 Unknown History extended release duloxetine 60 mg capsule,delayed 60 mg PO DAILY 09/10/20 10/27/21 Unknown History release semaglutide 2 mg/dose (8 mg/3 mL) 2 mg subcut QWEEK 08/12/21 10/27/21 Unknown History subcutaneous pen injector (Ozempic) zolpidem 10 mg tablet 10 mg PO BEDTIME PRN insomnia 08/12/21 10/27/21 Unknown History albuterol sulfate 90 mcg/actuation 2 puff inhalation Q4H PRN Wheezing 10/27/21 10/27/21 Unknown History aerosol inhaler alprazolam 2 mg tablet 1 tab PO BID PRN anxiety 10/27/21 10/27/21 Unknown History brimonidine 0.15 % eye drops 1 drp BID 10/27/21 10/27/21 Unknown History cetirizine 10 mg tablet 1 tab PO QPM 10/27/21 10/27/21 Unknown History fluticasone propionate 50 1 - 2 spray intranasal DAILY 10/27/21 10/27/21 Unknown History mcg/actuation nasal spray,suspension latanoprost 0.005 % eye drops 1 drp ophthalmic (eye) BEDTIME 10/27/21 10/27/21 Unknown History meloxicam 7.5 mg tablet 1 tab PO DAILY PRN pain 10/27/21 10/27/21 Unknown History multivitamin with folic acid 400 1 tab PO DAILY 10/27/21 10/27/21 Unknown History mcg tablet (Tab-A-Kelsie) naloxone 4 mg/actuation nasal 1 spray intranasal 10/27/21 Unknown History spray (Narcan) tamsulosin 0.4 mg capsule 1 tab PO BEDTIME 10/27/21 10/27/21 Unknown History Exam Exam Date and Time: October 31, 2021 1210 Assessment and Plan Assessment Anesthesia Assessment: Chart Reviewed Documented by User: Christine Enriquez MD 11/02/21 08:54 PMF Active Problems Active Problems: All Active Problems (Updated 09/20/21 @ 00:02 by Background Daemon) Dysphagia (Acute) GERD (gastroesophageal reflux disease) (Acute) Constipation by delayed colonic transit (Acute) Upper abdominal pain (Acute) Bleeding hemorrhoids (Acute) Diabetes mellitus (Acute) Asthma (Acute). Inhaler prn No methadone today DHARA. CPAP machine in the past. Awaiting re-evaluation in December. No CPAP for now Glaucoma Increased BMI Past Medical History Medical History Asthma Bleeding hemorrhoids Diabetes mellitus Elevated cholesterol GERD (gastroesophageal reflux disease) HTN (hypertension) Family History Family History Mother History of colon cancer Brother History of liver cancer Maternal Aunt History of colon cancer Father No problems noted. Family history of problems with anesthesia: No Surgical History Surgical History History of carpal tunnel release History of colonoscopy History of esophagogastroduodenoscopy (EGD) History of neck surgery History of release of tendon History of sinus surgery History of tonsillectomy History of umbilical hernia repair History of Problems with Anesthesia: No Social History Social History Household Members: None Alcohol intake: never Advance Directives: No Advance Directives Information Provided: Yes Meds Allergies Allergy/AdvReac Type Severity Reaction Status Date / Time Penicillins [PENICILLINS] Allergy Unknown RASH Verified 10/27/21 11:43 Home Medications Medication Instructions Recorded Confirmed Last Taken Type aspirin 81 mg chewable tablet 81 mg PO DAILY 02/19/20 10/27/21 Unknown History (Aspirin Childrens) atorvastatin 40 mg tablet (Lipitor) 40 mg PO BEDTIME 02/19/20 10/27/21 Unknown History dulaglutide 1.5 mg/0.5 mL 1.5 mg subcut QWEEK 02/19/20 10/27/21 Unknown History subcutaneous pen injector (Trulicity) insulin glargine 100 unit/mL (3 80 unit subcut QPM 02/19/20 10/27/21 Unknown History mL) subcutaneous pen (Lantus Solostar U-100 Insulin) losartan 100 mg tablet 100 mg PO DAILY 02/19/20 10/27/21 Unknown History metformin 500 mg tablet 500 mg PO BID 02/19/20 10/27/21 Unknown History methadone 10 mg tablet 10 mg PO Q6-8H PRN Pain 02/19/20 10/27/21 08/19/20 History montelukast 10 mg tablet 10 mg PO DAILY 02/19/20 10/27/21 Unknown History (Singulair) bupropion HCl 300 mg 24 hr tablet, 300 mg PO QAM 09/10/20 10/27/21 Unknown History extended release duloxetine 60 mg capsule,delayed 60 mg PO DAILY 09/10/20 10/27/21 Unknown History release semaglutide 2 mg/dose (8 mg/3 mL) 2 mg subcut QWEEK 08/12/21 10/27/21 Unknown History subcutaneous pen injector (Ozempic) zolpidem 10 mg tablet 10 mg PO BEDTIME PRN insomnia 08/12/21 10/27/21 Unknown History albuterol sulfate 90 mcg/actuation 2 puff inhalation Q4H PRN Wheezing 10/27/21 10/27/21 Unknown History aerosol inhaler alprazolam 2 mg tablet 1 tab PO BID PRN anxiety 10/27/21 10/27/21 Unknown History brimonidine 0.15 % eye drops 1 drp BID 10/27/21 10/27/21 Unknown History cetirizine 10 mg tablet 1 tab PO QPM 10/27/21 10/27/21 Unknown History fluticasone propionate 50 1 - 2 spray intranasal DAILY 10/27/21 10/27/21 Unknown History mcg/actuation nasal spray,suspension latanoprost 0.005 % eye drops 1 drp ophthalmic (eye) BEDTIME 10/27/21 10/27/21 Unknown History meloxicam 7.5 mg tablet 1 tab PO DAILY PRN pain 10/27/21 10/27/21 Unknown History multivitamin with folic acid 400 1 tab PO DAILY 10/27/21 10/27/21 Unknown History mcg tablet (Tab-A-Kelsie) naloxone 4 mg/actuation nasal 1 spray intranasal 10/27/21 Unknown History spray (Narcan) tamsulosin 0.4 mg capsule 1 tab PO BEDTIME 10/27/21 10/27/21 Unknown History Exam Height,Weight and Vital Signs: Height 6 ft 2 in Weight 120.202 kg Pertinent Lab Results Pertinent Lab Results: Lab Results 11/02/21 Range/Units 08:40 POC Glucose 160 H (60-115) mg/dL Airway Mallampati Class: II TM Dist: >3cm Neck ROM: Full Loose/Missing/Broken Teeth: No (Patient denies) Heart: RRR Lungs: CTAB. No wheezes Assessment and Plan Assessment Anesthesia Assessment: Anesthesia Plan Discussed Final Anesthetic Review Family History of Problems with Anesthesia: No History of Problems with Anesthesia: No NPO: Yes ASA Class: III Final Preanesthetic Review: No Changes in Pt Med Stat, Meds/Allgs Chart Reviewed, Consent Obtained/Reviewed and Anes Risks/Benef Reviewed Patient Risk: Intermediate Procedure Risk: Low Assessment/Block/Sedation in SS: Assess/Block/Sedation-SS Anesthetic Plan Anesthetic Plan: MAC: Disposition: Standard PACU
[2021-11-02 08:43] LABS: Glucose, Whole Blood 160 mg/dL (60-115)
[2021-11-02 08:49] VITALS: BMI 34.0
[2021-11-02 08:50] VITALS: BP 119/84; PULSE 106; RESP 20; TEMP 36.2; O2SAT 97
--- NOTE | 2021-11-02 09:01 | P.HPSUR_ITS ---
Pre-Procedural Eval Section A Date of Service: 11/02/21 Section B Chief Complaint: reflux,dysphagia Relevant Family History (Specify if Yes): No Relevant Social History: None Present Medications: see Short Stay Collaborative assessment Medical History: Significant History (Asthma Bleeding hemorrhoids Diabetes mellitus Elevated cholesterol GERD (gastroesophageal reflux disease) HTN (hypertension)) History of Previous Operations: Relevant previous surgery/procedure and date(s) Allergies: Allergies Allergy/AdvReac Type Severity Reaction Status Date / Time Penicillins [PENICILLINS] Allergy Unknown RASH Verified 10/27/21 11:43 Review of Systems Sugical H&P ROS: Negative: Constitution, Cardiovascular, Respiratory, Neurological, Psychiatric, Hem-Onc, Allergic/Immunologic, Gastrointestinal, Genitourinary, Musculoskeletal, Integumentary, Endocrine and Eyes/E ars/Nose/Throat Exam Surgical H&P Exam: Normal: HEENT, Normal: Heart, Normal: Lungs, Normal: Extremities, Normal: Abdomen, Normal: Skin and Normal: Neurological Plan Diagnosis/Plan: Unchanged I have reviewed the history and physical and performed a pertinent physical examination on my patient. No changes have occurred unless specified.
--- NOTE | 2021-11-02 09:33 | W.PM.OPN ---
Operative Note Operative Note Date of Service: 11/02/21 Narrative: Procedure Description: EGD Indication: [] Anesthesia: MAC FLEXIBLE TRANSORAL UPPER GASTROINTESTINAL ENDOSCOPY UPPER ENDOSCOPY Consent: Indications for the procedure and potential complications of bleeding, perforation, reaction to medications and missed diagnosis were discussed with the patient and informed consent was obtained. Instrument: Olympus GIF H 190 J mid size upper endoscope Monitoring: Vital signs and clinical assessment, continuous EKG monitoring, Pulse oximetry, Carbon Dioxide monitoring and blood pressure monitoring were done throughout the procedure. Procedure: The patient was placed in the left lateral decubitis position and pre-procedure medications were administered and a bite block was placed. The endoscope was inserted into the mouth and advanced under direct vision to the third part of duodenum. A careful inspection was made as the upper endoscope was withdrawn including a retroflexed examination of the proximal stomach; Findings and interventions are described below. Findings: Larynx:normal Esophagus: GE junction at 40 cm, diaphragm hiatus at 40 cm, irregular Z line, bx taken from GEJ and random esophagus. Balloon dilation done to 20 mm at LES and UES, no tears seen Stomach: Patchy gastric erythema. Biopsies were obtained. Grade 2 flap valve on retroflexed examination of the cardia. x 1 small fundic gland polyp taken Duodenum: PAtchy erythema, possible peptic duodenitis , bx taken Intervention: Biopsies as noted above, balloon dilation Impression/Findings: gastritis peptic duodenitis fundic gland polyp PLAN: make sure compliant with PPI if sx persist then pH impedance and manometry or maybe VILLEGAS, possible GES
[2021-11-02 09:41] VITALS: BP 121/78; PULSE 95; RESP 18; TEMP 37.1; O2SAT 95
[2021-11-02 09:56] VITALS: BP 123/86; PULSE 106; RESP 20; TEMP 37.1; O2SAT 95
== END 2021-11-02 10:22 | disposition home or self-care (01) ==
PROVIDERS: Visit Provider Internal Medicine Gastroenterology
PROC: 0DJ08ZZ Inspection of Upper Intestinal Tract, Via Natural or Artificial Opening Endoscopic (ICD-10-PCS; CPT 43235; principal; 2021-11-02 09:20)
DX: R13.10 Dysphagia, unspecified (principal); K21.9 Gastro-esophageal reflux disease without esophagitis; K29.50 Unspecified chronic gastritis without bleeding; K29.80 Duodenitis without bleeding; K44.9 Diaphragmatic hernia without obstruction or gangrene; K57.30 Diverticulosis of large intestine without perforation or abscess without bleeding; K31.7 Polyp of stomach and duodenum; K64.1 Second degree hemorrhoids; I10 Essential (primary) hypertension; J45.909 Unspecified asthma, uncomplicated; E78.00 Pure hypercholesterolemia, unspecified; E11.9 Type 2 diabetes mellitus without complications; Z79.4 Long term (current) use of insulin; Z79.899 Other long term (current) drug therapy; Z88.0 Allergy status to penicillin
CPT/HCPCS: 43249; 43239; 82947; 88305; 88342; C1726; J3010

== ENCOUNTER 2021-11-17 13:49 | Emergency (ER) | payer MEDICARE, MEDICAID, SELFPAY ==
--- NOTE | ~2021-11-17 | CT_ITS ---
EXAMINATION: CT ABDOMEN AND PELVIS WITHOUT CONTRAST CLINICAL INFORMATION: Left flank pain. History of diverticulitis. COMPARISON: None TECHNIQUE: Multidetector volumetric imaging was performed from the superior aspect of the liver through the pubic symphysis. Sagittal and coronal reformatted images were obtained on the technologist's workstation. This CT examination was performed using dose optimization techniques as appropriate, variously including the following: *Automated exposure control *Adjustment of mA and/or kV according to patient size (this includes techniques or standardized protocols for targeted exams where dose is matched to indication/reason for exam; i.e. extremities or head) *Use of iterative reconstruction technique DLP: 965 mGy-cm FINDINGS: LUNG BASES: The visualized lung bases are unremarkable. No pleural or pericardial effusion. There is some mild coronary artery calcification present. LIVER, GALLBLADDER, AND BILIARY TREE: There is fatty infiltration of the liver. No hepatomegaly. No focal mass. No intrahepatic bile duct dilatation. The gallbladder is unremarkable with no evidence of radiopaque gallstones, gallbladder wall thickening, or obvious pericholecystic inflammatory changes. PANCREAS: Unremarkable. SPLEEN: Unremarkable. ADRENAL GLANDS: Unremarkable. KIDNEYS AND URETERS: Right kidney: There is a midpole cyst present. No hydronephrosis. There is a large amount of perinephric stranding. No collecting system calculi. Right ureter appears unremarkable. Left kidney: No renal calculi identified. No hydronephrosis. There is a large amount of perinephric stranding. There is a small lower pole exophytic cyst. No definite solid mass is appreciated. The left ureter appears unremarkable. BLADDER: Unremarkable. GASTROINTESTINAL TRACT: No dilated loops of large or small bowel are evident. No free air or free fluid is seen. No pericolonic inflammatory change. The appendix appears unremarkable. ABDOMINAL WALL: No significant hernia is appreciated. There appears to have been mesh repair of an anterior midline umbilical hernia. LYMPH NODES: No lymphadenopathy appreciated. VASCULAR: Unremarkable. PELVIC VISCERA: Unremarkable. OSSEOUS STRUCTURES: No suspicious destructive bony lesions identified. There is DISH present with calcification of the anterior longitudinal ligament of the lower thoracic spine. CT/CT abdomen pelvis wo con IMPRESSION: Large amount of perinephric fat stranding bilaterally but without evidence of obstructive uropathy or nephrolithiasis. No evidence of ileus or bowel obstruction. No evidence of acute diverticulitis. Diffuse fatty infiltration of the liver. Fleischner guidelines were followed.
[2021-11-17 13:51] VITALS: BP 136/87; PULSE 107; RESP 16; TEMP 37.2; O2SAT 95; BMI 34.0
--- NOTE | 2021-11-17 14:21 | ED_ITS ---
HPI - Abdominal Pain General Chief Complaint: Abdominal Pain Stated Complaint: R side pain Time Seen by Provider: 11/17/21 13:57 Source: patient Mode of arrival: ambulatory Limitations: no limitations History of Present Illness HPI narrative: Patient comes to the ED complaining of left lower quadrant pain and left flank pain that started yesterday evening PA patient denies history of kidney stones and a CT does have history of diverticulitis. Patient states yesterday night he vomited 4 times, no episodes of diarrhea. Patient denies fever chills, no dysuria or hematuria. Patient also complaining of a chronic difficulty swallowing, which has already been addressed by Dr. Howe from Gastroenterology, patient was diagnosed with gastritis, peptic duodenitis and fundic gland polyp Related Data Home Medications Medication Instructions Recorded Confirmed aspirin 81 mg chewable tablet 81 mg PO DAILY 02/19/20 10/27/21 (Aspirin Childrens) atorvastatin 40 mg tablet (Lipitor) 40 mg PO BEDTIME 02/19/20 10/27/21 dulaglutide 1.5 mg/0.5 mL 1.5 mg subcut QWEEK 02/19/20 10/27/21 subcutaneous pen injector (Trulicity) insulin glargine 100 unit/mL (3 80 unit subcut QPM 02/19/20 10/27/21 mL) subcutaneous pen (Lantus Solostar U-100 Insulin) losartan 100 mg tablet 100 mg PO DAILY 02/19/20 10/27/21 metformin 500 mg tablet 500 mg PO BID 02/19/20 10/27/21 methadone 10 mg tablet 10 mg PO Q6-8H PRN Pain 02/19/20 10/27/21 montelukast 10 mg tablet 10 mg PO DAILY 02/19/20 10/27/21 (Singulair) bupropion HCl 300 mg 24 hr tablet, 300 mg PO QAM 09/10/20 10/27/21 extended release duloxetine 60 mg capsule,delayed 60 mg PO DAILY 09/10/20 10/27/21 release semaglutide 2 mg/dose (8 mg/3 mL) 2 mg subcut QWEEK 08/12/21 10/27/21 subcutaneous pen injector (Ozempic) zolpidem 10 mg tablet 10 mg PO BEDTIME PRN insomnia 08/12/21 10/27/21 albuterol sulfate 90 mcg/actuation 2 puff inhalation Q4H PRN Wheezing 10/27/21 10/27/21 aerosol inhaler alprazolam 2 mg tablet 1 tab PO BID PRN anxiety 10/27/21 10/27/21 brimonidine 0.15 % eye drops 1 drp BID 10/27/21 10/27/21 cetirizine 10 mg tablet 1 tab PO QPM 10/27/21 10/27/21 fluticasone propionate 50 1 - 2 spray intranasal DAILY 10/27/21 10/27/21 mcg/actuation nasal spray,suspension latanoprost 0.005 % eye drops 1 drp ophthalmic (eye) BEDTIME 10/27/21 10/27/21 meloxicam 7.5 mg tablet 1 tab PO DAILY PRN pain 10/27/21 10/27/21 multivitamin with folic acid 400 1 tab PO DAILY 10/27/21 10/27/21 mcg tablet (Tab-A-Kelsie) naloxone 4 mg/actuation nasal 1 spray intranasal 10/27/21 spray (Narcan) tamsulosin 0.4 mg capsule 1 tab PO BEDTIME 10/27/21 10/27/21 Previous Rx's Medication Instructions Recorded menthol 0.44 %-zinc oxide 20.6 % 1 applic topical QID PRN skin 02/19/20 topical ointment (Calmoseptine) irritation #71 grams sucralfate 1 gram tablet 1 g PO BID #60 tabs 04/13/20 hydrocortisone 2.5 % topical cream 1 appl VA BID-QID PRN hemorrhoids 07/09/20 with perineal applicator #30 grams (Procto-Med HC) sucralfate 100 mg/mL oral 10 ml PO BID #400 mL 08/19/20 suspension famotidine 40 mg tablet (Pepcid) 40 mg PO BEDTIME #60 tabs 09/10/20 psyllium husk 3.4 gram/5.4 gram 1 tbsp PO BID #660 grams 08/12/21 oral powder (Metamucil) dicyclomine 10 mg capsule 10 mg PO TID #30 caps 09/05/21 cyclobenzaprine 10 mg tablet 10 mg PO Q8H PRN Muscle spasm #20 09/19/21 tabs ibuprofen 800 mg tablet 800 mg PO Q8H PRN pain #14 tabs 09/19/21 prednisone 20 mg tablet 40 mg PO DAILY rash 7 days #14 tabs 09/19/21 esomeprazole magnesium 40 mg 40 mg PO DAILY #30 caps 10/13/21 capsule,delayed release Allergies Allergy/AdvReac Type Severity Reaction Status Date / Time Penicillins [PENICILLINS] Allergy Unknown RASH Verified 10/27/21 11:43 Review of Systems Review of Systems Constitutional : No Weight loss, No Fever, No Chills, No Night Sweats, No F atigue, No Malaise ENT/Mouth : No Hearing loss, No Ear Pain, No Nasal Congestion, No Sinus Pain, No Hoarseness, No sore throat, No Rhinorrhea, No Swallowing Difficulty Eyes: No Eye Pain, No Swelling, No Redness, No Foreign Body, No Discharge, No Vision Changes Cardiovascular : No Chest Pain, No SOB, No Dyspnea on Exertion, No Orthopnea, No Edema, No Palpitations Respiratory : No Cough, No Sputum, No Wheezing, No Smoke Exposure, No Dyspnea Gastrointestinal : Multiple episodes of nausea and vomiting, No Diarrhea, No Constipation, complaining of left lower quadrant pain, No Hematochezia, No [place] na Genitourinary : no irregular bleeding, No Dysuria, No Urinary Frequency, No Hematuria, No Urinary Incontinence, No Urgency, complaining of left Flank Pain, No Urinary Flow Changes, No Hesitancy Musculoskeletal : No joint pain, No Myalgias, No Joint Swelling Skin : No Skin Lesions, No rash Neuro : No Weakness, No Numbness, No Paresthesias, No Loss of Consciousness, No Dizziness, No Headache Psych : No Anxiety/Panic, No Depression, No SI/HI/AH/VH, No Social Issues, Heme/Lymph: No Bruising, No Bleeding,No Lymphadenopathy Endocrine : No Polyuria, No Polydipsia, No Temperature Intolerance [facility] Past Medical History Medical History Asthma Bleeding hemorrhoids Diabetes mellitus Elevated cholesterol GERD (gastroesophageal reflux disease) HTN (hypertension) Surgical History History of carpal tunnel release History of colonoscopy History of esophagogastroduodenoscopy (EGD) History of neck surgery History of release of tendon History of sinus surgery History of tonsillectomy History of umbilical hernia repair Family History Family History Mother History of colon cancer Brother History of liver cancer Maternal Aunt History of colon cancer Father No problems noted. Social History Social History Household Members: None Alcohol intake: never Patient Tobacco Use Status: Never used Tobacco Use of substances other than those prescribed or required for medical reasons: No Advance Directives: No Advance Directives Information Provided: Yes Physical Exam ED Vital Signs: Vital Signs - 24 hr 11/17/21 13:51 11/17/21 14:44 11/17/21 17:04 Temperature 99.0 F 98.6 F 98.7 F Pulse Rate 107 H 97 91 Respiratory Rate 16 15 16 Blood Pressure 136/87 112/75 129/75 Pulse Oximetry 95 94 94 Oxygen Delivery Method Room Air Room Air Room Air 11/17/21 19:16 Temperature 97.7 F Pulse Rate 92 Respiratory Rate 14 Blood Pressure 141/96 H Pulse Oximetry 92 Oxygen Delivery Method Room Air BMI result Body Mass Index 34.0 Const Other: Appearance: Alert. Oriented X3. No acute distress. Eyes: Pupils equal, round and reactive to light. ENT: Pharynx normal. Neck: Normal inspection. Neck supple. No lymph nodes noted. No crepitus CVS: Normal heart rate and rhythm. Pulses normal. Normal S1 and S2 Respiratory: No respiratory distress. Breath sounds normal. No Wheezing. No rales Abdomen: Soft , mild discomfort to palpation in the left lower quadrant, no rebound, no guarding No rigidity. No distention. Back: No CVA tenderness Skin: Skin warm and dry. Normal skin color. Normal skin turgor. Extremities: No lower extremity edema. No Lacerations. No Rash Neuro: Oriented X 3. No motor deficit. No sensory deficit. Moving all extremities. No slurred speech. CN 2 through 12 grossly intact Psych: calm, cooperative, normal affect Course Course Course Narrative: Patient fluids, Zofran and morphine. Labs and imaging pending. I discussed the labs and CT with the patient, patient does not seem to have acute diverticulitis or nephrolithiasis. Patient's pain is likely musculoskeletal. However, patient's creatinine is elevated today. Patient was given 2 L of fluid and we are rechecking labs again. Patient agrees with plan Patient received 2 L of IV fluids, creatinine decreased to 1.6. I discussed with the patient that ideally he should be receiving more fluids, then repeat creatinine, patient declined another bag of fluids or the stay in the hospital. Patient states that he will take plenty of fluids with electrolytes and will follow up with primary care physician. Otherwise, patient feeling well, no abdominal pain MDM - Abdominal Pain Lab Data Result diagrams: 11/17/21 14:19 11/17/21 19:04 Labs: Lab Results 11/17/21 11/17/21 11/17/21 Range/Units 14:18 14:19 14:19 WBC 8.3 (4.8-10.8) X10*3/uL RBC 5.81 H (4.60-5.80) X10*6/uL Hgb 15.9 (14.0-18.0) g/dl Hct 48.6 (42.0-52.0) % MCV 83.6 (80.0-98.0) fL MCH 27.4 (27.0-33.0) pg MCHC 32.7 (31.0-36.0) g/dl RDW 13.3 (11.0-16.0) % Plt Count 201 (160-400) X10*3/uL MPV 9.2 L (9.4-12.4) fL Immature Gran % (Auto) 0.2 (0.0-0.4) % Neut % (Auto) 61.3 (45-73) % Lymph % (Auto) 24.1 (20-40) % [place] % (Auto) 13.1 H (2-11) % Eos % (Auto) 0.8 (0-4) % Baso % (Auto) 0.5 (0-2) % Lymph # (Auto) 2.0 (1.2-4.9) X10*3/uL [place] # (Auto) 1.1 (0.1-1.2) X10*3/uL Eos # (Auto) 0.1 (0.0-0.4) X10*3/uL Baso # (Auto) 0.0 (0.0-0.2) X10*3/uL Abs Immat Gran (auto) 0.02 (0.00-0.03) X10*3/uL Absolute Neuts (auto) 5.1 (2.0-8.3) x10*3/uL Absolute Nucleated RBC 0.000 (0.0-0.012) X10*3/uL Nucleated RBC % (auto) 0.0 (0.0-0.2) /100WBC Sodium 137 (135-145) mmol/L Potassium 4.8 (3.3-5.1) mmol/L Chloride 102 (96-108) mmol/L Carbon Dioxide 27 (22-29) mmol/L Anion Gap 13 (12-20) BUN 23 H (9-16) mg/dL Creatinine 1.95 H (0.5-1.4) mg/dL Estim Creat Clear Calc 58.2 Estimated GFR 36 Random Glucose 227 H (60-115) mg/dL Lactic Acid 1.1 (0.5-2.0) mmol/L Calcium 9.1 (8.4-10.2) mg/dL Total Bilirubin 1.3 H (0.0-1.0) mg/dL Direct Bilirubin 0.5 (0.0-0.5) mg/dL AST 30 (5-37) U/L ALT 45 H (0-40) U/L Alkaline Phosphatase 67 (39-117) U/L Total Protein 6.9 (6.5-8.0) g/dL Albumin 4.3 (3.5-5.0) g/dL Lipase 31 (8-78) U/L Urine Color Urine Appearance Urine pH (5.0-8.0) Ur Specific [place] (1.005-1.025) Urine Protein (NEG-TRACE) MG/DL Urine Glucose (UA) (NEG) MG/DL Urine Ketones (NEG) MG/DL Urine Blood (NEG) Urine Nitrite (NEG) Ur Leukocyte Esterase (NEG) COVID-19 (ARGENIS) (Negative) COVID-19 Clin Com 11/17/21 11/17/21 11/17/21 Range/Units 14:19 14:28 19:04 WBC (4.8-10.8) X10*3/uL RBC (4.60-5.80) X10*6/uL Hgb (14.0-18.0) g/dl Hct (42.0-52.0) % MCV (80.0-98.0) fL MCH (27.0-33.0) pg MCHC (31.0-36.0) g/dl RDW (11.0-16.0) % Plt Count (160-400) X10*3/uL MPV (9.4-12.4) fL Immature Gran % (Auto) (0.0-0.4) % Neut % (Auto) (45-73) % Lymph % (Auto) (20-40) % [place] % (Auto) (2-11) % Eos % (Auto) (0-4) % Baso % (Auto) (0-2) % Lymph # (Auto) (1.2-4.9) X10*3/uL [place] # (Auto) (0.1-1.2) X10*3/uL Eos # (Auto) (0.0-0.4) X10*3/uL Baso # (Auto) (0.0-0.2) X10*3/uL Abs Immat Gran (auto) (0.00-0.03) X10*3/uL Absolute Neuts (auto) (2.0-8.3) x10*3/uL Absolute Nucleated RBC (0.0-0.012) X10*3/uL Nucleated RBC % (auto) (0.0-0.2) /100WBC Sodium 139 (135-145) mmol/L Potassium 4.9 (3.3-5.1) mmol/L Chloride 105 (96-108) mmol/L Carbon Dioxide 27 (22-29) mmol/L Anion Gap 12 (12-20) BUN 20 H (9-16) mg/dL Creatinine 1.61 H (0.5-1.4) mg/dL Estim Creat Clear Calc 70.5 Estimated GFR 45 Random Glucose 149 H (60-115) mg/dL Lactic Acid (0.5-2.0) mmol/L Calcium 8.5 D (8.4-10.2) mg/dL Total Bilirubin (0.0-1.0) mg/dL Direct Bilirubin (0.0-0.5) mg/dL AST (5-37) U/L ALT (0-40) U/L Alkaline Phosphatase (39-117) U/L Total Protein (6.5-8.0) g/dL Albumin (3.5-5.0) g/dL Lipase (8-78) U/L Urine Color YELLOW Urine Appearance CLEAR Urine pH 6.0 (5.0-8.0) Ur Specific [place] <= 1.005 (1.005-1.025) Urine Protein NEG (NEG-TRACE) MG/DL Urine Glucose (UA) NEG (NEG) MG/DL Urine Ketones NEG (NEG) MG/DL Urine Blood NEG (NEG) Urine Nitrite NEG (NEG) Ur Leukocyte Esterase NEG (NEG) COVID-19 (ARGENIS) Negative (Negative) COVID-19 Clin Com See Note Discharge Plan Discharge Clinical Impression: Left flank pain, Acute kidney injury Patient Disposition: Home, Self-Care Instructions: Acute Kidney Injury (DC), Abdominal Pain (ED) Additional Instructions: Please follow-up with your primary care physician tomorrow. If you have any worsening or new symptoms, please return to the emergency room or call 911 Prescriptions: No Action dicyclomine 10 mg capsule 10 mg PO TID Qty: 30 0RF esomeprazole magnesium 40 mg capsule,delayed release(DR/EC) 40 mg PO DAILY Qty: 30 0RF sucralfate 100 mg/mL suspension 10 ml PO BID Qty: 400 1RF latanoprost 0.005 % drops 1 drp ophthalmic (eye) BEDTIME cetirizine 10 mg tablet 1 tab PO QPM meloxicam 7.5 mg tablet 1 tab PO DAILY PRN (Reason: pain) tamsulosin 0.4 mg capsule 1 tab PO BEDTIME alprazolam 2 mg tablet 1 tab PO BID PRN (Reason: anxiety) albuterol sulfate 90 mcg/actuation HFA aerosol inhaler 2 puff inhalation Q4H PRN (Reason: Wheezing) fluticasone propionate 50 mcg/actuation spray,suspension 1 - 2 spray intranasal DAILY brimonidine 0.15 % drops 1 drp BID multivitamin with folic acid [Tab-A-Kelsie] 400 mcg tablet 1 tab PO DAILY naloxone [Narcan] 4 mg/actuation spray,non-aerosol 1 spray intranasal ibuprofen 800 mg tablet 800 mg PO Q8H PRN (Reason: pain) Qty: 14 0RF prednisone 20 mg tablet 40 mg PO DAILY 7 Days Qty: 14 0RF cyclobenzaprine 10 mg tablet 10 mg PO Q8H PRN (Reason: Muscle spasm) Qty: 20 0RF sucralfate 1 gram tablet 1 g PO BID Qty: 60 3RF metformin 500 mg tablet 500 mg PO BID Lantus Solostar U-100 Insulin 100 unit/mL (3 mL) insulin pen 80 unit subcut QPM Trulicity 1.5 mg/0.5 mL pen injector 1.5 mg subcut QWEEK atorvastatin [Lipitor] 40 mg tablet 40 mg PO BEDTIME losartan 100 mg tablet 100 mg PO DAILY montelukast [Singulair] 10 mg tablet 10 mg PO DAILY methadone 10 mg tablet 10 mg PO Q6-8H PRN (Reason: Pain) aspirin [Aspirin Childrens] 81 mg tablet,chewable 81 mg PO DAILY Calmoseptine 0.44-20.6 % ointment 1 applic topical QID PRN (Reason: skin irritation) Qty: 71 3RF duloxetine 60 mg capsule,delayed release(DR/EC) 60 mg PO DAILY bupropion HCl 300 mg tablet extended release 24 hr 300 mg PO QAM famotidine [Pepcid] 40 mg tablet 40 mg PO BEDTIME Qty: 60 3RF hydrocortisone [Procto-Med HC] 2.5 % cream with perineal applicator 1 appl VA BID-QID PRN (Reason: hemorrhoids) Qty: 30 0RF zolpidem 10 mg tablet 10 mg PO BEDTIME PRN (Reason: insomnia) Ozempic 2 mg/dose (8 mg/3 mL) pen injector 2 mg subcut QWEEK Metamucil 3.4 gram/5.4 gram powder 1 tbsp PO BID Qty: 660 2RF Rx Instructions: mix into at least 8 oz of water or juice before administering
[2021-11-17 14:27] LABS: Basophils Percent Auto 0.5 % (0-2); Eosinophils Absolute Auto 0.1 X10*3/uL (0.0-0.4); Eosinophils Percent Auto 0.8 % (0-4); Hematocrit 48.6 % (42.0-52.0); Hemoglobin 15.9 g/dl (14.0-18.0); Imm Gran Abs Auto 0.02 X10*3/uL (0.00-0.03); Imm Gran Pct Auto 0.2 % (0.0-0.4); Lymphocytes Percent Auto 24.1 % (20-40); MANUAL DIFF FLAG NO; Mean Corpuscular HGB Conc 32.7 g/dl (31.0-36.0); Mean Corpuscular Hemoglobin 27.4 pg (27.0-33.0); Mean Corpuscular Volume 83.6 fL (80.0-98.0); Mean Platelet Volume 9.2 fL (9.4-12.4); Monocytes Absolute Auto 1.1 X10*3/uL (0.1-1.2); Monocytes Percent Auto 13.1 % (2-11); Neutrophils Absolute Auto 5.1 x10*3/uL (2.0-8.3); Neutrophils Percent Auto 61.3 % (45-73); Platelet Count 201 X10*3/uL (160-400); Red Blood Count 5.81 X10*6/uL (4.60-5.80); Red Cell Distribution Width 13.3 % (11.0-16.0); White Blood Count 8.3 X10*3/uL (4.8-10.8)
[2021-11-17] MEDS: 0.9 % Sodium Chloride 1,000 ML 999 ML IVCONT ×2 (14:37→16:23)
[2021-11-17] MEDS: ondansetron HCL 4 MG/2 ML VIAL IVPUSH (14:37)
[2021-11-17 14:41] LABS: Lactic Acid 1.1 mmol/L (0.5-2.0)
[2021-11-17 14:43] LABS: Appearance Urine CLEAR; Color Urine YELLOW; Glucose Urine UA NEG (NEG); Leukocyte Esterase Urine NEG (NEG); Nitrite Urine NEG (NEG); Specific Gravity - Urine <= 1.005 (1.005-1.025); Urine Blood NEG (NEG); Urine Ketones NEG (NEG); Urine Protein NEG (NEG-TRACE)
[2021-11-17 14:44] VITALS: BP 112/75; PULSE 97; RESP 15; TEMP 37; O2SAT 94
[2021-11-17 14:46] LABS: Alanine Aminotransferase 45 U/L (0-40); Albumin Level 4.3 g/dL (3.5-5.0); Alkaline Phosphatase 67 U/L (39-117); Anion Gap 13 (12-20); Aspartate Amino Transferase 30 U/L (5-37); Bilirubin Direct 0.5 mg/dL (0.0-0.5); Bilirubin Total 1.3 mg/dL (0.0-1.0); Blood Urea Nitrogen 23 mg/dL (9-16); Calcium 9.1 mg/dL (8.4-10.2); Carbon Dioxide 27 mmol/L (22-29); Chloride 102 mmol/L (96-108); Creatinine Clr Calc Pharmacy 58.2; Estimated Glomerular Filt Rate 36; Glucose Random 227 mg/dL (60-115); Lipase 31 U/L (8-78); Potassium 4.8 mmol/L (3.3-5.1); Sodium 137 mmol/L (135-145); Total Protein 6.9 g/dL (6.5-8.0)
[2021-11-17 14:47] LABS: COVID-19 Test Negative (Negative); IDNOW Serial# 16C4AD1C
[2021-11-17] MEDS: Morphine Sulfate 4 MG/ML CARTRIDGE IVPUSH (16:22)
--- NOTE | 2021-11-17 16:27 | PC.NURSE ---
Administered Morphine per MAR for pain. Callbell within reach and instructed pt to use it should he need to get up for any reason.
[2021-11-17 17:04] VITALS: BP 129/75; PULSE 91; RESP 16; TEMP 37.1; O2SAT 94
[2021-11-17 19:16] VITALS: BP 141/96; PULSE 92; RESP 14; TEMP 36.5; O2SAT 92
[2021-11-17 19:24] LABS: Anion Gap 12 (12-20); Blood Urea Nitrogen 20 mg/dL (9-16); Calcium 8.5 mg/dL (8.4-10.2); Carbon Dioxide 27 mmol/L (22-29); Chloride 105 mmol/L (96-108); Creatinine Clr Calc Pharmacy 70.5; Estimated Glomerular Filt Rate 45; Glucose Random 149 mg/dL (60-115); Potassium 4.9 mmol/L (3.3-5.1); Sodium 139 mmol/L (135-145)
[2021-11-17 20:11] VITALS: BP 123/84; PULSE 92; RESP 16; O2SAT 95
== END 2021-11-17 20:18 | disposition home or self-care (01) ==
PROVIDERS: Emergency Provider Emergency Medicine; PCP Internal Medicine
DX: N17.9 Acute kidney failure, unspecified (principal); R10.9 Unspecified abdominal pain; Z20.822 Contact with and (suspected) exposure to COVID-19; E11.9 Type 2 diabetes mellitus without complications; I10 Essential (primary) hypertension; E78.5 Hyperlipidemia, unspecified; Z79.82 Long term (current) use of aspirin; Z79.02 Long term (current) use of antithrombotics/antiplatelets; Z79.4 Long term (current) use of insulin; Z79.899 Other long term (current) drug therapy
CPT/HCPCS: 36415; 74176; 80048; 80076; 81003; 83605; 83690; 85025; 87040; 87635; 96361; 96374; 96375; 99284; 99285; J2270; J2405

== ENCOUNTER 2021-12-13 08:00 | Outpatient (REF) | payer MEDICARE, MEDICAID, SELFPAY ==
--- NOTE | ~2021-12-13 | US_ITS ---
EXAMINATION: US COMPLETE ABDOMEN WITH LIVER ELASTOGRAPHY CLINICAL INFORMATION: Abdominal pain. COMPARISON: Previous CT of the abdomen and pelvis November 2021 TECHNIQUE: Real-time imaging of the abdominal viscera. Noninvasive ultrasound liver fibrosis assessment is performed using Prema ElastPQ point quantification shear wave elastography (2D-SWE) with a C5-2 MHz transducer. Multiple elastography samples are obtained. Exam is limited due to patient body habitus. FINDINGS: PANCREAS: Normal. ABDOMINAL AORTA: The proximal, middle, and distal aortic segments are normal in caliber. INFERIOR VENA CAVA: Visualized portions are normal. LIVER: Liver echotexture is increased probably representing fatty infiltration. There is a small hypoechoic area adjacent to the gallbladder, characteristic location of focal fatty sparing. No other focal lesion. Liver is normal in size and contour. No biliary duct dilatation. The right lobe measures 16 cm in length. The left lobe measures 12.5 cm in length. Portal flow is normal/hepatopedal Shear wave liver elastography median stiffness is 1.35 m/s (reference: normal median stiffness is 1.3 m/s or less). IQR/median stiffness to assess sampling precision is 0.06 (reference: good quality data set is IQR/median stiffness of 0.15 or less). GALLBLADDER: Normal. The gallbladder is physiologically distended without evidence of stones, sludge, polyps, wall thickening or pericholecystic fluid. COMMON BILE DUCT: Not well visualized. RIGHT KIDNEY: There are several cysts, largest measuring 2 cm in the midpole. No hydronephrosis. No renal calculi or focal parenchymal lesions. The kidney measures 13.4 cm in maximum dimension. LEFT KIDNEY: There is a 0.7 x 1 x 0.8 cm cyst exophytic to the lateral midpole. No hydronephrosis. No renal calculi or focal parenchymal lesions. The kidney measures 12.7 cm in maximum dimension. SPLEEN: Normal. The spleen measures 12.7 cm in maximum dimension. FREE FLUID: None. US/US abdomen comp w elastography IMPRESSION: 1. Impression: Limited exam. Echogenic liver suggestive of fatty infiltration. Bilateral renal cysts. 2. Liver elastography: Adequate liver sampling. In the absence of other known clinical signs, rules out compensated advanced chronic liver disease. REFERENCE: Society of Radiologists in Ultrasound Liver Stiffness Thresholds (2020): LIVER STIFFNESS THRESHOLDS: *Liver Stiffness equal or less than 1.3 m/s: High probability of being normal. *Liver Stiffness less than 1.7 m/s: In the absence of other known clinical signs, rules out compensated advanced chronic liver disease. *Liver Stiffness 1.7-2.1 m/s: Suggestive of compensated advanced chronic liver disease but need further test for confirmation. *Liver Stiffness over 2.1 m/s: Rules in compensated advanced chronic liver disease. *Liver Stiffness over 2.4 m/s: Suggestive of clinically significant portal hypertension. QUALITY OF DATA SET: *IQR/Median value equal or less than 0.15 implies a quality data set. *IQR/Median value over 0.15 implies a poor quality data set. SIGNIFICANT CHANGE FROM PRIOR EXAM: Significant change if liver stiffness measurement is 10% or greater from prior exam. OTHER CONSIDERATIONS: The stage of liver fibrosis may be overestimated in the setting of acute hepatitis, liver inflammation, elevated liver function tests, hepatic vascular congestion, obstructive cholestasis, non-fasting state, and infiltrative diseases such as amyloidosis and lymphoma. In some patients with NAFLD, the liver stiffness thresholds for compensated advanced chronic liver disease may be lower. In causes other than viral hepatitis and NAFLD, liver stiffness thresholds are not well established.
== END 2021-12-13 08:01 | disposition home or self-care (01) ==
LOC: HO.US 08:00
PROVIDERS: Visit Provider Internal Medicine Gastroenterology
DX: R10.10 Upper abdominal pain, unspecified (principal); R13.10 Dysphagia, unspecified; K21.9 Gastro-esophageal reflux disease without esophagitis
CPT/HCPCS: 76705; 76981

== ENCOUNTER → 2022-02-13 11:25 | Outpatient (BNVA) | payer MEDICARE, MEDICAID, SELFPAY | PROVIDERS: PCP Internal Medicine; Visit Provider Internal Medicine Gastroenterology | DX: R13.10 Dysphagia, unspecified (principal); K21.9 Gastro-esophageal reflux disease without esophagitis | CPT/HCPCS: 99212 ==

== ENCOUNTER 2022-04-03 06:31 | Emergency (ER) | payer MEDICARE, MEDICAID, SELFPAY ==
--- NOTE | ~2022-04-03 | CT_ITS ---
EXAMINATION: CT ABDOMEN AND PELVIS WITHOUT CONTRAST CLINICAL INFORMATION: Left flank pain radiating to the left groin, kidney stone COMPARISON: Ultrasound 12/13/2021. CT 11/17/2021 TECHNIQUE: Multidetector volumetric imaging was performed from the lung bases through the pubic symphysis. Sagittal and coronal reformatted images were obtained on the technologist workstation. This CT examination was performed using dose optimization techniques as appropriate, variously including the following: *Automated exposure control *Adjustment of mA and/or kV according to patient size (this includes techniques or standardized protocols for targeted exams where dose is matched to indication/reason for exam; i.e. extremities or head) *Use of iterative reconstruction technique FINDINGS: The lack of intravenous contrast limits evaluation of the solid visceral organs including the liver, spleen, pancreas, and kidneys. LUNG BASES: Bibasilar atelectasis. Minimal coronary artery calcification is visible. LIVER, GALLBLADDER, AND BILIARY TREE: Diffuse hepatic steatosis with areas of focal fatty sparing adjacent to gallbladder fossa. No suspicious focal liver lesion on limited noncontrast imaging. The gallbladder is unremarkable with no evidence of radiopaque gallstones, gallbladder wall thickening, or obvious pericholecystic inflammatory changes. PANCREAS: Limited non-contrast evaluation is normal. No rex-pancreatic fluid. SPLEEN: Limited non-contrast evaluation is normal. ADRENAL GLANDS: Normal; no adrenal mass. KIDNEYS AND URETERS: Water density right renal parapelvic cyst. No calculi or hydronephrosis bilaterally. No hydroureter. GASTROINTESTINAL TRACT: Stomach and small bowel are nondilated. Normal appendix. Diverticulosis without evidence of colitis or diverticulitis. ABDOMINAL WALL: Ventral abdominal hernia mesh. There is stranding of the fat of the anterior pelvic wall of the level of the umbilicus suggesting subcutaneous injections. LYMPH NODES: No pathologically enlarged lymph nodes in the abdomen or pelvis. VASCULAR: Normal caliber abdominal aorta. BLADDER: Unremarkable. PELVIC VISCERA: Unremarkable. OSSEOUS STRUCTURES: No acute or suspicious osseous abnormalities. CT/CT abdomen pelvis wo IV con IMPRESSION: No acute CT findings. No evidence of radiopaque urolithiasis or obstructive uropathy. .
[2022-04-03 06:34] VITALS: BP 148/93; PULSE 98; RESP 17; TEMP 36.6; O2SAT 98; BMI 32.5
[2022-04-03 07:11] LABS: MANUAL DIFF FLAG NO
[2022-04-03 07:13] LABS: Basophils Absolute Auto 0.1 X10*3/uL (0.0-0.2); Basophils Percent Auto 0.9 % (0-2); Eosinophils Absolute Auto 0.1 X10*3/uL (0.0-0.4); Eosinophils Percent Auto 2.4 % (0-4); Hematocrit 42.6 % (42.0-52.0); Imm Gran Abs Auto 0.01 X10*3/uL (0.00-0.03); Imm Gran Pct Auto 0.2 % (0.0-0.4); Lymphocytes Absolute Auto 2.4 X10*3/uL (1.2-4.9); Mean Corpuscular HGB Conc 32.9 g/dl (31.0-36.0); Mean Corpuscular Hemoglobin 28.1 pg (27.0-33.0); Mean Corpuscular Volume 85.5 fL (80.0-98.0); Monocytes Absolute Auto 0.9 X10*3/uL (0.1-1.2); Monocytes Percent Auto 16.5 % (2-11); Neutrophils Absolute Auto 1.9 x10*3/uL (2.0-8.3); Platelet Count 214 X10*3/uL (160-400); Red Blood Count 4.98 X10*6/uL (4.60-5.80); Red Cell Distribution Width 12.9 % (11.0-16.0); White Blood Count 5.3 X10*3/uL (4.8-10.8)
[2022-04-03 07:27] LABS: Alanine Aminotransferase 41 U/L (0-40); Albumin Level 3.9 g/dL (3.5-5.0); Alkaline Phosphatase 62 U/L (39-117); Anion Gap 12 (12-20); Aspartate Amino Transferase 30 U/L (5-37); Bilirubin Total 0.7 mg/dL (0.0-1.0); Blood Urea Nitrogen 13 mg/dL (9-16); Calcium 8.9 mg/dL (8.4-10.2); Carbon Dioxide 27 mmol/L (22-29); Chloride 101 mmol/L (96-108); Creatinine Clr Calc Pharmacy 126.4; Estimated Glomerular Filt Rate > 60; Glucose Random 187 mg/dL (60-115); Lipase 38 U/L (8-78); Potassium 4.5 mmol/L (3.3-5.1); Sodium 135 mmol/L (135-145); Total Protein 6.2 g/dL (6.5-8.0)
[2022-04-03 07:36] LABS: Appearance Urine Clear; Color Urine Yellow; Glucose Urine UA 500 mg/dL (Negative); Leukocyte Esterase Urine Negative (Negative); Nitrite Urine Negative (Negative); PH 6.5 (5.0-9.0); Specific Gravity - Urine 1.025 (1.005-1.025); Urine Blood Negative (Negative); Urine Ketones Trace mg/dL (Negative); Urine Protein Negative (Neg-Trace)
--- NOTE | 2022-04-03 08:07 | ED.ABDPAIN ---
HPI - Abdominal Pain General Chief Complaint: Abdominal Pain Stated Complaint: side pain, radiates to back Time Seen by Provider: 04/03/22 07:57 Source: patient and old records reviewed Limitations: no limitations History of Present Illness HPI narrative: Patient with 2 days of left flank pain radiating left groin. Worse with movement. Some dysuria. No nausea vomiting diarrhea or constipation. Patient had similar pain although bilateral in November of this year. At the time he was diagnosed with acute kidney injury. He followed up with renal and apparently improved. No causative factors for this pain that he can think of. He has a history of sciatica and disc disease with prior neck surgery. He currently denies any weakness numbness or paresthesias. No loss of bowel or bladder function. Related Data Home Medications Medication Instructions Recorded Confirmed aspirin 81 mg chewable tablet 81 mg PO DAILY 02/19/20 02/13/22 (Aspirin Childrens) atorvastatin 40 mg tablet (Lipitor) 40 mg PO BEDTIME 02/19/20 02/13/22 insulin glargine 100 unit/mL (3 80 unit subcut QPM 02/19/20 02/13/22 mL) subcutaneous pen (Lantus Solostar U-100 Insulin) losartan 100 mg tablet 100 mg PO DAILY 02/19/20 02/13/22 metformin 500 mg tablet 500 mg PO BID 02/19/20 02/13/22 methadone 10 mg tablet 10 mg PO Q6-8H PRN Pain 02/19/20 02/13/22 montelukast 10 mg tablet 10 mg PO DAILY 02/19/20 02/13/22 (Singulair) bupropion HCl 300 mg 24 hr tablet, 300 mg PO QAM 09/10/20 02/13/22 extended release duloxetine 60 mg capsule,delayed 60 mg PO DAILY 09/10/20 02/13/22 release semaglutide 2 mg/dose (8 mg/3 mL) 2 mg subcut QWEEK 08/12/21 02/13/22 subcutaneous pen injector (Ozempic) zolpidem 10 mg tablet 10 mg PO BEDTIME PRN insomnia 08/12/21 02/13/22 albuterol sulfate 90 mcg/actuation 2 puff inhalation Q4H PRN Wheezing 10/27/21 02/13/22 aerosol inhaler alprazolam 2 mg tablet 1 tab PO BID PRN anxiety 10/27/21 02/13/22 brimonidine 0.15 % eye drops 1 drp BID 10/27/21 02/13/22 cetirizine 10 mg tablet 1 tab PO QPM 10/27/21 02/13/22 fluticasone propionate 50 1 - 2 spray intranasal DAILY 10/27/21 02/13/22 mcg/actuation nasal spray,suspension latanoprost 0.005 % eye drops 1 drp ophthalmic (eye) BEDTIME 10/27/21 02/13/22 meloxicam 7.5 mg tablet 1 tab PO DAILY PRN pain 10/27/21 02/13/22 multivitamin with folic acid 400 1 tab PO DAILY 10/27/21 02/13/22 mcg tablet (Tab-A-Kelsie) naloxone 4 mg/actuation nasal 1 spray intranasal 10/27/21 02/13/22 spray (Narcan) tamsulosin 0.4 mg capsule 1 tab PO BEDTIME 10/27/21 02/13/22 Previous Rx's Medication Instructions Recorded menthol 0.44 %-zinc oxide 20.6 % 1 applic topical QID PRN skin 02/19/20 topical ointment (Calmoseptine) irritation #71 grams sucralfate 1 gram tablet 1 g PO BID #60 tabs 04/13/20 hydrocortisone 2.5 % topical cream 1 appl ME BID-QID PRN hemorrhoids 07/09/20 with perineal applicator #30 grams (Procto-Med HC) sucralfate 100 mg/mL oral 10 ml PO BID #400 mL 08/19/20 suspension famotidine 40 mg tablet (Pepcid) 40 mg PO BEDTIME #60 tabs 09/10/20 psyllium husk 3.4 gram/5.4 gram 1 tbsp PO BID #660 grams 08/12/21 oral powder (Metamucil) dicyclomine 10 mg capsule 10 mg PO TID #30 caps 09/05/21 cyclobenzaprine 10 mg tablet 10 mg PO Q8H PRN Muscle spasm #20 09/19/21 tabs ibuprofen 800 mg tablet 800 mg PO Q8H PRN pain #14 tabs 09/19/21 prednisone 20 mg tablet 40 mg PO DAILY rash 7 days #14 tabs 09/19/21 esomeprazole magnesium 40 mg 40 mg PO DAILY #30 caps 10/13/21 capsule,delayed release baclofen 10 mg tablet 10 mg PO BID #20 tabs 04/03/22 Allergies Allergy/AdvReac Type Severity Reaction Status Date / Time Penicillins [PENICILLINS] Allergy Unknown RASH Verified 04/03/22 06:34 Review of Systems Comments: No fevers or chills Comments: No chest pain Comments: No cough or dyspnea Comments: Left flank and groin pain as mentioned Comments: Dysuria. No hematuria. Comments: Back pain as mentioned. Worse with movement. Comments: No rash Comments: No new weakness numbness or paresthesias. History of sciatica. [facility] Past Medical History Medical History Asthma Bleeding hemorrhoids Diabetes mellitus Elevated cholesterol GERD (gastroesophageal reflux disease) HTN (hypertension) Surgical History History of carpal tunnel release History of colonoscopy History of esophagogastroduodenoscopy (EGD) History of neck surgery History of release of tendon History of sinus surgery History of tonsillectomy History of umbilical hernia repair Family History Family History Mother History of colon cancer Brother History of liver cancer Maternal Aunt History of colon cancer Father No problems noted. Social History Social History Household Members: None Alcohol intake: never Patient Tobacco Use Status: Never used Tobacco Smoked in Last 30 Days: No Use of substances other than those prescribed or required for medical reasons: No Advance Directives: Yes Advance Directives Information Provided: No Advance Directives on File: No Physical Exam ED Vital Signs: Vital Signs - 24 hr 04/03/22 06:34 Temperature 97.9 F Pulse Rate 98 Respiratory Rate 17 Blood Pressure 148/93 H Pulse Oximetry 98 Oxygen Delivery Method Room Air BMI result Body Mass Index 32.5 Const Other: Awake alert no acute distress Resp Other: Clear and equal bilaterally without wheezes rales or rhonchi Cardio Other: Regular rate and rhythm without murmurs rubs or gallops GI Other: Soft. Left lower abdominal tenderness. Left flank tenderness to percussion. No guarding rebound. Normal bowel sounds. Back/Spine/Pelvis Other: No midline spinous tenderness Skin Other: Warm pink and dry without rash Neuro Other: No focal neurologic deficits Course Course Course Narrative: 08:19. Renal function is normal on this visit. Review of prior visit shows he had elevated creatinine in November of this year. It has sense normalized. Remainder of lab work is also unremarkable. Await CT scan results 09:47. CT scan is normal. Pain is most likely musculoskeletal and radicular in origin. Given his recent history of acute kidney injury, I would avoid nonsteroidal anti-inflammatories. Patient states he has been on baclofen in the past for back pain. I think this is a reasonable choice. Will discharge home with a prescription for baclofen and follow-up referral for physiatry Medical Decision Making Medical Decision Making MDM Narrative: Patient with flank pain radiating to left groin in the setting of prior acute kidney injury. He also has a history of degenerative disc disease with prior C-spine surgery and ongoing sciatic pain for which he is on methadone. Etiology of pain could be either. Will order CT scan. Lab Data Result Diagrams: 04/03/22 07:07 04/03/22 07:07 Labs: Lab Results 04/03/22 04/03/22 04/03/22 Range/Units 07:07 07:07 07:11 WBC 5.3 (4.8-10.8) X10*3/uL RBC 4.98 (4.60-5.80) X10*6/uL Hgb 14.0 (14.0-18.0) g/dl Hct 42.6 (42.0-52.0) % MCV 85.5 (80.0-98.0) fL MCH 28.1 (27.0-33.0) pg MCHC 32.9 (31.0-36.0) g/dl RDW 12.9 (11.0-16.0) % Plt Count 214 (160-400) X10*3/uL MPV 9.0 L (9.4-12.4) fL Immature Gran % (Auto) 0.2 (0.0-0.4) % Neut % (Auto) 36.0 L (45-73) % Lymph % (Auto) 44.0 H (20-40) % [place] % (Auto) 16.5 H (2-11) % Eos % (Auto) 2.4 (0-4) % Baso % (Auto) 0.9 (0-2) % Lymph # (Auto) 2.4 (1.2-4.9) X10*3/uL [place] # (Auto) 0.9 (0.1-1.2) X10*3/uL Eos # (Auto) 0.1 (0.0-0.4) X10*3/uL Baso # (Auto) 0.1 (0.0-0.2) X10*3/uL Abs Immat Gran (auto) 0.01 (0.00-0.03) X10*3/uL Absolute Neuts (auto) 1.9 L (2.0-8.3) x10*3/uL Absolute Nucleated RBC 0.000 (0.0-0.012) X10*3/uL Nucleated RBC % (auto) 0.0 (0.0-0.2) /100WBC Sodium 135 (135-145) mmol/L Potassium 4.5 (3.3-5.1) mmol/L Chloride 101 (96-108) mmol/L Carbon Dioxide 27 (22-29) mmol/L Anion Gap 12 (12-20) BUN 13 (9-16) mg/dL Creatinine 0.87 (0.5-1.4) mg/dL Estim Creat Clear Calc 126.4 Estimated GFR > 60 Random Glucose 187 H (60-115) mg/dL Calcium 8.9 (8.4-10.2) mg/dL Total Bilirubin 0.7 (0.0-1.0) mg/dL AST 30 (5-37) U/L ALT 41 H (0-40) U/L Alkaline Phosphatase 62 (39-117) U/L Total Protein 6.2 L (6.5-8.0) g/dL Albumin 3.9 (3.5-5.0) g/dL Lipase 38 (8-78) U/L Urine Color Yellow Urine Appearance Clear Urine pH 6.5 (5.0-9.0) Ur Specific [place] 1.025 (1.005-1.025) Urine Protein Negative (Neg-Trace) mg/dL Urine Glucose (UA) 500 H (Negative) mg/dL Urine Ketones Trace (Negative) mg/dL Urine Blood Negative (Negative) Urine Nitrite Negative (Negative) Ur Leukocyte Esterase Negative (Negative) Discharge Plan Discharge Clinical Impression: Back pain Patient Disposition: Home, Self-Care Instructions: Back Pain (ED) Additional Instructions: Follow-up with pain your spine and sports. Call [phone] for appointment Prescriptions: New baclofen 10 mg tablet 10 mg PO BID Qty: 20 0RF No Action dicyclomine 10 mg capsule 10 mg PO TID Qty: 30 0RF esomeprazole magnesium 40 mg capsule,delayed release(DR/EC) 40 mg PO DAILY Qty: 30 0RF sucralfate 100 mg/mL suspension 10 ml PO BID Qty: 400 1RF latanoprost 0.005 % drops 1 drp ophthalmic (eye) BEDTIME cetirizine 10 mg tablet 1 tab PO QPM meloxicam 7.5 mg tablet 1 tab PO DAILY PRN (Reason: pain) tamsulosin 0.4 mg capsule 1 tab PO BEDTIME alprazolam 2 mg tablet 1 tab PO BID PRN (Reason: anxiety) albuterol sulfate 90 mcg/actuation HFA aerosol inhaler 2 puff inhalation Q4H PRN (Reason: Wheezing) fluticasone propionate 50 mcg/actuation spray,suspension 1 - 2 spray intranasal DAILY brimonidine 0.15 % drops 1 drp BID multivitamin with folic acid [Tab-A-Kelsie] 400 mcg tablet 1 tab PO DAILY naloxone [Narcan] 4 mg/actuation spray,non-aerosol 1 spray intranasal ibuprofen 800 mg tablet 800 mg PO Q8H PRN (Reason: pain) Qty: 14 0RF prednisone 20 mg tablet 40 mg PO DAILY 7 Days Qty: 14 0RF cyclobenzaprine 10 mg tablet 10 mg PO Q8H PRN (Reason: Muscle spasm) Qty: 20 0RF sucralfate 1 gram tablet 1 g PO BID Qty: 60 3RF metformin 500 mg tablet 500 mg PO BID Lantus Solostar U-100 Insulin 100 unit/mL (3 mL) insulin pen 80 unit subcut QPM atorvastatin [Lipitor] 40 mg tablet 40 mg PO BEDTIME losartan 100 mg tablet 100 mg PO DAILY montelukast [Singulair] 10 mg tablet 10 mg PO DAILY methadone 10 mg tablet 10 mg PO Q6-8H PRN (Reason: Pain) aspirin [Aspirin Childrens] 81 mg tablet,chewable 81 mg PO DAILY Calmoseptine 0.44-20.6 % ointment 1 applic topical QID PRN (Reason: skin irritation) Qty: 71 3RF duloxetine 60 mg capsule,delayed release(DR/EC) 60 mg PO DAILY bupropion HCl 300 mg tablet extended release 24 hr 300 mg PO QAM famotidine [Pepcid] 40 mg tablet 40 mg PO BEDTIME Qty: 60 3RF hydrocortisone [Procto-Med HC] 2.5 % cream with perineal applicator 1 appl ME BID-QID PRN (Reason: hemorrhoids) Qty: 30 0RF zolpidem 10 mg tablet 10 mg PO BEDTIME PRN (Reason: insomnia) Ozempic 2 mg/dose (8 mg/3 mL) pen injector 2 mg subcut QWEEK Metamucil 3.4 gram/5.4 gram powder 1 tbsp PO BID Qty: 660 2RF Rx Instructions: mix into at least 8 oz of water or juice before administering
== END 2022-04-03 09:53 | disposition home or self-care (01) ==
PROVIDERS: Emergency Provider Emergency Medicine; PCP Internal Medicine
DX: M54.50 Low back pain, unspecified (principal); R10.13 Epigastric pain; Z79.899 Other long term (current) drug therapy
CPT/HCPCS: 36415; 74176; 80053; 81003; 83690; 85025; 99284

== ENCOUNTER 2022-05-13 06:20 | Emergency (ER) | payer MEDICARE, MEDICAID, SELFPAY ==
--- NOTE | ~2022-05-13 | CT_ITS ---
EXAMINATION: CT ABDOMEN AND PELVIS WITH CONTRAST CLINICAL INFORMATION: Abdominal pain COMPARISON: None TECHNIQUE: Multiple axial images were obtained from the superior aspect of the liver through the pubic symphysis after the administration of 85 mL of intravenous Omnipaque 350. Images were evaluated on independent dedicated 3-D workstation and 3-D images were reconstructed with concurrent radiologist supervision and subsequently interpreted. Oral contrast was not administered. This CT examination was performed using dose optimization techniques as appropriate, variously including the following: *Automated exposure control *Adjustment of mA and/or kV according to patient size (this includes techniques or standardized protocols for targeted exams where dose is matched to indication/reason for exam; i.e. extremities or head) *Use of iterative reconstruction technique DLP: 41 mGy-cm FINDINGS: LUNG BASES: The visualized lung bases are clear. CARDIOMEDIASTINUM: The visualized heart is normal in size without pericardial effusion. No coronary artery calcification. LIVER: Homogeneous in attenuation. Normal in size. GALLBLADDER: Noninflamed. BILIARY SYSTEM: No intrahepatic or extrahepatic biliary dilation. PANCREAS: Homogeneous in attenuation. SPLEEN: Normal in size. GENITOURINARY: Bilateral kidneys demonstrate symmetric enhancement. No perinephric fluid collection. No renal calculi. No hydroureteronephrosis. Right parapelvic simple cyst measuring 3.6 cm; no follow-up needed. ADRENAL GLANDS: Unremarkable. REPRODUCTIVE: Prostatomegaly. GASTROINTESTINAL: The visualized alimentary tract is normal in course. No evidence of obstruction. Diverticular disease of the descending and sigmoid colon without diverticulitis. APPENDIX: The appendix is seen in its entirety and is unremarkable. PERITONEUM: No pneumoperitoneum. No intra-abdominal fluid collection. VASCULATURE: The abdominal aorta is normal in course and caliber. LYMPH NODES: No pathologically enlarged abdominal or pelvic lymph nodes. SOFT TISSUES/MUSCULOSKELETAL: Ventral hernia repair. No acute fractures or focal osseous lesions. CT/CT abdomen pelvis w IV con IMPRESSION: No acute abdominal or pelvic pathology.
[2022-05-13 06:26] VITALS: BP 127/87; PULSE 98; RESP 18; TEMP 36.4; O2SAT 98; BMI 34.0
[2022-05-13 06:57] VITALS: BP 122/77; PULSE 99; RESP 17; TEMP 36.4; O2SAT 96
--- NOTE | 2022-05-13 07:22 | PC.NURSE ---
Pt reports LLQ abd pain x 3 days with vomiting and diarrhea starting yesterday. Speaking full sentences. Skin PWD. No acute vomiting at this time. No guarding or grimace noted with rest. Plan for labs and imaging
--- NOTE | 2022-05-13 07:23 | ED.ABDPAIN ---
HPI - Abdominal Pain General Chief Complaint: Abdominal Pain Stated Complaint: left abd pain Time Seen by Provider: 05/13/22 07:14 Source: patient Mode of arrival: ambulatory Limitations: no limitations History of Present Illness HPI narrative: This is a 57 years old the male presented to the emergency department with chief complaint of abdominal pain, also complaining nausea vomiting the symptoms have been going on for at least a day. The patient has history of chronic pain he has history of diabetes and hypertension. He is also having some diarrhea MD elicited complaint: abdominal pain Pertinent past history: other (Diabetes hypertension) Onset (ago): day(s) (2) Pain Consistency: constant Location: LLQ Quality: cramping Radiation: none Migration to: no migration Exacerbating factors: nothing Relieving factors: nothing Associated symptoms: nausea, vomiting and diarrhea Related Data Home Medications Medication Instructions Recorded Confirmed aspirin 81 mg chewable tablet 81 mg PO DAILY 02/19/20 02/13/22 (Aspirin Childrens) atorvastatin 40 mg tablet (Lipitor) 40 mg PO BEDTIME 02/19/20 02/13/22 insulin glargine 100 unit/mL (3 80 unit subcut QPM 02/19/20 02/13/22 mL) subcutaneous pen (Lantus Solostar U-100 Insulin) losartan 100 mg tablet 100 mg PO DAILY 02/19/20 02/13/22 metformin 500 mg tablet 500 mg PO BID 02/19/20 02/13/22 methadone 10 mg tablet 10 mg PO Q6-8H PRN Pain 02/19/20 02/13/22 montelukast 10 mg tablet 10 mg PO DAILY 02/19/20 02/13/22 (Singulair) bupropion HCl 300 mg 24 hr tablet, 300 mg PO QAM 09/10/20 02/13/22 extended release duloxetine 60 mg capsule,delayed 60 mg PO DAILY 09/10/20 02/13/22 release semaglutide 2 mg/dose (8 mg/3 mL) 2 mg subcut QWEEK 08/12/21 02/13/22 subcutaneous pen injector (Ozempic) zolpidem 10 mg tablet 10 mg PO BEDTIME PRN insomnia 08/12/21 02/13/22 albuterol sulfate 90 mcg/actuation 2 puff inhalation Q4H PRN Wheezing 10/27/21 02/13/22 aerosol inhaler alprazolam 2 mg tablet 1 tab PO BID PRN anxiety 10/27/21 02/13/22 brimonidine 0.15 % eye drops 1 drp BID 10/27/21 02/13/22 cetirizine 10 mg tablet 1 tab PO QPM 10/27/21 02/13/22 fluticasone propionate 50 1 - 2 spray intranasal DAILY 10/27/21 02/13/22 mcg/actuation nasal spray,suspension latanoprost 0.005 % eye drops 1 drp ophthalmic (eye) BEDTIME 10/27/21 02/13/22 meloxicam 7.5 mg tablet 1 tab PO DAILY PRN pain 10/27/21 02/13/22 multivitamin with folic acid 400 1 tab PO DAILY 10/27/21 02/13/22 mcg tablet (Tab-A-Kelsie) naloxone 4 mg/actuation nasal 1 spray intranasal 10/27/21 02/13/22 spray (Narcan) tamsulosin 0.4 mg capsule 1 tab PO BEDTIME 10/27/21 02/13/22 Previous Rx's Medication Instructions Recorded menthol 0.44 %-zinc oxide 20.6 % 1 applic topical QID PRN skin 02/19/20 topical ointment (Calmoseptine) irritation #71 grams sucralfate 1 gram tablet 1 g PO BID #60 tabs 04/13/20 hydrocortisone 2.5 % topical cream 1 appl [place] BID-QID PRN hemorrhoids 07/09/20 with perineal applicator #30 grams (Procto-Med ) sucralfate 100 mg/mL oral 10 ml PO BID #400 mL 08/19/20 suspension famotidine 40 mg tablet (Pepcid) 40 mg PO BEDTIME #60 tabs 09/10/20 psyllium husk 3.4 gram/5.4 gram 1 tbsp PO BID #660 grams 08/12/21 oral powder (Metamucil) dicyclomine 10 mg capsule 10 mg PO TID #30 caps 09/05/21 cyclobenzaprine 10 mg tablet 10 mg PO Q8H PRN Muscle spasm #20 09/19/21 tabs ibuprofen 800 mg tablet 800 mg PO Q8H PRN pain #14 tabs 09/19/21 prednisone 20 mg tablet 40 mg PO DAILY rash 7 days #14 tabs 09/19/21 esomeprazole magnesium 40 mg 40 mg PO DAILY #30 caps 10/13/21 capsule,delayed release baclofen 10 mg tablet 10 mg PO BID #20 tabs 04/03/22 Allergies Allergy/AdvReac Type Severity Reaction Status Date / Time Penicillins [PENICILLINS] Allergy Unknown RASH Verified 05/13/22 06:30 [facility] Past Medical History Medical History Asthma Bleeding hemorrhoids Diabetes mellitus Elevated cholesterol GERD (gastroesophageal reflux disease) HTN (hypertension) Surgical History History of carpal tunnel release History of colonoscopy History of esophagogastroduodenoscopy (EGD) History of neck surgery History of release of tendon History of sinus surgery History of tonsillectomy History of umbilical hernia repair Family History Family History Mother History of colon cancer Brother History of liver cancer Maternal Aunt History of colon cancer Father No problems noted. Social History Social History Household Members: None Alcohol intake: never Patient Tobacco Use Status: Never used Tobacco Smoked in Last 30 Days: No Use of substances other than those prescribed or required for medical reasons: No Advance Directives: No Physical Exam ED Vital Signs: Vital Signs - 24 hr 05/13/22 06:26 05/13/22 06:57 05/13/22 09:13 Temperature 97.5 F 97.6 F 98.6 F Pulse Rate 98 99 94 Respiratory Rate 18 17 17 Blood Pressure 127/87 122/77 126/79 Pulse Oximetry 98 96 96 Oxygen Delivery Method Room Air Room Air Room Air BMI result Body Mass Index 34.0 Const General: cooperative Nutritional Appearance: well nourished Orientation/consciousness: patient oriented x3 HENMT Head: Yes normal to inspection Face and sinus: Yes normal facial exam Mouth: Normal oral and palatal mucosa present Throat: Yes posterior oropharynx normal Neck Neck: Yes normal visual inspection Chest Chest palpation & inspection: normal inspection of the chest Resp Effort & Inspection: normal respiratory effort Auscultation: clear to auscultation bilaterally Cardio Jugular venous distension: no JVD Rate: regular rate Rhythm: regular rhythm GI Inspection: Yes normal to inspection Palpation (GI): Soft to palpation, not firm, nontender and no guarding Skin General skin exam: no rashes or lesions noted and elasticity normal Lesions: no lesions Rashes: no rashes Neuro General: patient oriented x3 Cranial nerves: Yes CN's II-XII intact bilaterally Course Reevaluation(s) Reevaluation #1: reexamined pain free,ct and labs OK will d/c Time: 09:08 Medical Decision Making Medical Decision Making [facility] Narrative: Patient presents with abdominal pain nausea vomiting we will get labs CT observe reassess Differential Diagnosis Differential Diagnoses: The differential diagnosis associated with the presentation includes colitis/diverticulitis/sbo Admission/Observation Consideration of admission/observation: Escalation of care including admission/observation considered Lab Data [facility] Lab Attestation statement: I reviewed the patient's lab results. 05/13/22 07:34 05/13/22 07:34 Labs: Lab Results 05/13/22 05/13/22 05/13/22 Range/Units 07:34 07:34 07:34 WBC 7.4 (4.8-10.8) X10*3/uL RBC 5.68 (4.60-5.80) X10*6/uL Hgb 15.6 (14.0-18.0) g/dl Hct 46.9 (42.0-52.0) % MCV 82.6 (80.0-98.0) fL MCH 27.5 (27.0-33.0) pg MCHC 33.3 (31.0-36.0) g/dl RDW 12.5 (11.0-16.0) % Plt Count 208 (160-400) X10*3/uL MPV 8.9 L (9.4-12.4) fL Immature Gran % (Auto) 0.1 (0.0-0.4) % Neut % (Auto) 64.6 (45-73) % Lymph % (Auto) 23.3 (20-40) % [place] % (Auto) 10.2 (2-11) % Eos % (Auto) 1.1 (0-4) % Baso % (Auto) 0.7 (0-2) % Lymph # (Auto) 1.7 (1.2-4.9) X10*3/uL [place] # (Auto) 0.8 (0.1-1.2) X10*3/uL Eos # (Auto) 0.1 (0.0-0.4) X10*3/uL Baso # (Auto) 0.1 (0.0-0.2) X10*3/uL Abs Immat Gran (auto) 0.01 (0.00-0.03) X10*3/uL Absolute Neuts (auto) 4.8 (2.0-8.3) x10*3/uL Absolute Nucleated RBC 0.000 (0.0-0.012) X10*3/uL Nucleated RBC % (auto) 0.0 (0.0-0.2) /100WBC Sodium 135 (135-145) mmol/L Potassium 4.8 (3.3-5.1) mmol/L Chloride 108 (96-108) mmol/L Carbon Dioxide 18 L (22-29) mmol/L Anion Gap 14 (12-20) BUN 14 (9-16) mg/dL Creatinine 1.04 (0.5-1.4) mg/dL Estim Creat Clear Calc 108.0 Estimated GFR > 60 Random Glucose 207 H (60-115) mg/dL Calcium 9.2 (8.4-10.2) mg/dL Total Bilirubin 1.0 (0.0-1.0) mg/dL AST 38 H (5-37) U/L ALT 62 H (0-40) U/L Alkaline Phosphatase 68 (39-117) U/L Total Protein 6.9 (6.5-8.0) g/dL Albumin 4.4 (3.5-5.0) g/dL Lipase 27 (8-78) U/L Urine Color Dark Yellow Urine Appearance Cloudy Urine pH 5.5 (5.0-9.0) Ur Specific Dev[place] 1.025 (1.005-1.025) Urine Protein 30 (1+) H (Neg-Trace) mg/dL Urine Glucose (UA) 100 H (Negative) mg/dL Urine Ketones Trace (Negative) mg/dL Urine Blood Negative (Negative) Urine Nitrite Negative (Negative) Ur Leukocyte Esterase Negative (Negative) Urine RBC 0-2 (0-2) /HPF Urine WBC 0-5 (0-5) /HPF Ur Squamous Epith Cells 0-2 (0-2) /HPF Urine Bacteria None Seen (None Seen) Hyaline Casts 0-2 (0-2) /LPF Independent Interpretation I performed an independent interpretation of an: CT Scan Interpretation: NAD Radiology Impression Discussion of test interpretation with radiology: I have reviewed the radiologist's reading. Radiologist Impression: GENITOURINARY: Bilateral kidneys demonstrate symmetric enhancement. No perinephric fluid collection. No renal calculi. No hydroureteronephrosis. Right parapelvic simple cyst measuring 3.6 cm; no follow-up needed. ADRENAL GLANDS: Unremarkable. REPRODUCTIVE: Prostatomegaly. GASTROINTESTINAL: The visualized alimentary tract is normal in course. No evidence of obstruction. Diverticular disease of the descending and sigmoid colon without diverticulitis. APPENDIX: The appendix is seen in its entirety and is unremarkable. PERITONEUM: No pneumoperitoneum. No intra-abdominal fluid collection. VASCULATURE: The abdominal aorta is normal in course and caliber. LYMPH NODES: No pathologically enlarged abdominal or pelvic lymph nodes. SOFT TISSUES/MUSCULOSKELETAL: Ventral hernia repair. No acute fractures or focal osseous lesions. CT/CT abdomen pelvis w IV con IMPRESSION: No acute abdominal or pelvic pathology. ? Dictated By: Liu Blackmon Signed By: External Record Review External record reviewed: Inpatient record Chronic Conditions Patient?s care impacted by: Diabetes and Hypertension Medications Administered Discontinued Medications Generic Name Dose Route Start Last Admin Trade Name Freq PRN Reason Stop Dose Admin Sodium Chloride 1,000 mls @ 999 mls/hr 05/13/22 07:30 05/13/22 09:19 Ns IVCONT 05/13/22 08:30 Infused .Q1H1M JEANETH Infusion Iohexol 100 ml 05/13/22 08:19 05/13/22 08:19 Iohexol 350 Mg/Ml 100 Ml Infus..Btl IV 05/13/22 08:20 85 ml ONCE ONE Administration Morphine Sulfate 4 mg 05/13/22 07:21 05/13/22 07:41 Morphine Sulfate 4 Mg/Ml Cartridge IVPUSH 05/13/22 07:22 4 mg ONCE ONE Administration Protocol Ondansetron HCl 4 mg 05/13/22 07:21 05/13/22 07:41 Ondansetron Hcl 4 Mg/2 Ml Vial IVPUSH 05/13/22 07:22 4 mg ONCE ONE Administration Discharge Plan Discharge Clinical Impression: Abdominal pain Patient Disposition: Home, Self-Care Instructions: Abdominal Pain (ED) Additional Instructions: Follow up with Primary Care doctor,return if worse Prescriptions: No Action dicyclomine 10 mg capsule 10 mg PO TID Qty: 30 0RF esomeprazole magnesium 40 mg capsule,delayed release(DR/EC) 40 mg PO DAILY Qty: 30 0RF sucralfate 100 mg/mL suspension 10 ml PO BID Qty: 400 1RF latanoprost 0.005 % drops 1 drp ophthalmic (eye) BEDTIME cetirizine 10 mg tablet 1 tab PO QPM meloxicam 7.5 mg tablet 1 tab PO DAILY PRN (Reason: pain) tamsulosin 0.4 mg capsule 1 tab PO BEDTIME alprazolam 2 mg tablet 1 tab PO BID PRN (Reason: anxiety) albuterol sulfate 90 mcg/actuation HFA aerosol inhaler 2 puff inhalation Q4H PRN (Reason: Wheezing) fluticasone propionate 50 mcg/actuation spray,suspension 1 - 2 spray intranasal DAILY brimonidine 0.15 % drops 1 drp BID multivitamin with folic acid [Tab-A-Kelsie] 400 mcg tablet 1 tab PO DAILY naloxone [Narcan] 4 mg/actuation spray,non-aerosol 1 spray intranasal baclofen 10 mg tablet 10 mg PO BID Qty: 20 0RF ibuprofen 800 mg tablet 800 mg PO Q8H PRN (Reason: pain) Qty: 14 0RF prednisone 20 mg tablet 40 mg PO DAILY 7 Days Qty: 14 0RF cyclobenzaprine 10 mg tablet 10 mg PO Q8H PRN (Reason: Muscle spasm) Qty: 20 0RF sucralfate 1 gram tablet 1 g PO BID Qty: 60 3RF metformin 500 mg tablet 500 mg PO BID Lantus Solostar U-100 Insulin 100 unit/mL (3 mL) insulin pen 80 unit subcut QPM atorvastatin [Lipitor] 40 mg tablet 40 mg PO BEDTIME losartan 100 mg tablet 100 mg PO DAILY montelukast [Singulair] 10 mg tablet 10 mg PO DAILY methadone 10 mg tablet 10 mg PO Q6-8H PRN (Reason: Pain) aspirin [Aspirin Childrens] 81 mg tablet,chewable 81 mg PO DAILY Calmoseptine 0.44-20.6 % ointment 1 applic topical QID PRN (Reason: skin irritation) Qty: 71 3RF duloxetine 60 mg capsule,delayed release(DR/EC) 60 mg PO DAILY bupropion HCl 300 mg tablet extended release 24 hr 300 mg PO QAM famotidine [Pepcid] 40 mg tablet 40 mg PO BEDTIME Qty: 60 3RF hydrocortisone [Procto-Med HC] 2.5 % cream with perineal applicator 1 appl [place] BID-QID PRN (Reason: hemorrhoids) Qty: 30 0RF zolpidem 10 mg tablet 10 mg PO BEDTIME PRN (Reason: insomnia) Ozempic 2 mg/dose (8 mg/3 mL) pen injector 2 mg subcut QWEEK Metamucil 3.4 gram/5.4 gram powder 1 tbsp PO BID Qty: 660 2RF Rx Instructions: mix into at least 8 oz of water or juice before administering Referrals: Vamshi Man MD [Primary Care Provider] - 2 days Interventions: ED Discharge Assessment Last Done: 05/13/22 09:21 Discharge Date/Time: 05/13/22 09:21
[2022-05-13 07:38] LABS: MANUAL DIFF FLAG NO
[2022-05-13 07:40] LABS: Basophils Absolute Auto 0.1 X10*3/uL (0.0-0.2); Basophils Percent Auto 0.7 % (0-2); Eosinophils Absolute Auto 0.1 X10*3/uL (0.0-0.4); Eosinophils Percent Auto 1.1 % (0-4); Hematocrit 46.9 % (42.0-52.0); Hemoglobin 15.6 g/dl (14.0-18.0); Imm Gran Abs Auto 0.01 X10*3/uL (0.00-0.03); Imm Gran Pct Auto 0.1 % (0.0-0.4); Lymphocytes Absolute Auto 1.7 X10*3/uL (1.2-4.9); Lymphocytes Percent Auto 23.3 % (20-40); Mean Corpuscular HGB Conc 33.3 g/dl (31.0-36.0); Mean Corpuscular Hemoglobin 27.5 pg (27.0-33.0); Mean Corpuscular Volume 82.6 fL (80.0-98.0); Mean Platelet Volume 8.9 fL (9.4-12.4); Monocytes Absolute Auto 0.8 X10*3/uL (0.1-1.2); Monocytes Percent Auto 10.2 % (2-11); Neutrophils Absolute Auto 4.8 x10*3/uL (2.0-8.3); Neutrophils Percent Auto 64.6 % (45-73); Platelet Count 208 X10*3/uL (160-400); Red Blood Count 5.68 X10*6/uL (4.60-5.80); Red Cell Distribution Width 12.5 % (11.0-16.0); White Blood Count 7.4 X10*3/uL (4.8-10.8)
[2022-05-13] MEDS: ondansetron HCL 4 MG/2 ML VIAL IVPUSH (07:41)
[2022-05-13] MEDS: Morphine Sulfate 4 MG/ML CARTRIDGE IVPUSH (07:41)
[2022-05-13] MEDS: 0.9 % Sodium Chloride 1,000 ML 999 ML IVCONT (07:41)
[2022-05-13 08:01] LABS: Alanine Aminotransferase 62 U/L (0-40); Albumin Level 4.4 g/dL (3.5-5.0); Alkaline Phosphatase 68 U/L (39-117); Anion Gap 14 (12-20); Aspartate Amino Transferase 38 U/L (5-37); Blood Urea Nitrogen 14 mg/dL (9-16); Calcium 9.2 mg/dL (8.4-10.2); Carbon Dioxide 18 mmol/L (22-29); Chloride 108 mmol/L (96-108); Estimated Glomerular Filt Rate > 60; Glucose Random 207 mg/dL (60-115); Lipase 27 U/L (8-78); Potassium 4.8 mmol/L (3.3-5.1); Sodium 135 mmol/L (135-145); Total Protein 6.9 g/dL (6.5-8.0)
[2022-05-13 08:11] LABS: Appearance Urine Cloudy; Color Urine Dark Yellow; Glucose Urine UA 100 mg/dL (Negative); Leukocyte Esterase Urine Negative (Negative); Nitrite Urine Negative (Negative); PH 5.5 (5.0-9.0); Specific Gravity - Urine 1.025 (1.005-1.025); UMIC TRIGGER UACC YES; Urine Blood Negative (Negative); Urine Ketones Trace mg/dL (Negative); Urine Protein 30 (1+) mg/dL (Neg-Trace)
[2022-05-13 08:13] LABS: Bacteria Urine None Seen (None Seen); Hyaline Casts Urine 0-2 /LPF (0-2); RBC Urine 0-2 /HPF (0-2); Squamous Epithelial Cell Urine 0-2 /HPF (0-2); WBC Urine 0-5 /HPF (0-5)
[2022-05-13] MEDS: iohexoL 350 MG/ML 100 ML INFUS..BTL IV (08:19)
[2022-05-13 09:13] VITALS: BP 126/79; PULSE 94; RESP 17; TEMP 37; O2SAT 96
== END 2022-05-13 09:21 | disposition home or self-care (01) ==
PROVIDERS: Emergency Provider Emergency Medicine; PCP Internal Medicine
DX: R10.9 Unspecified abdominal pain (principal); E11.9 Type 2 diabetes mellitus without complications; I10 Essential (primary) hypertension; E78.5 Hyperlipidemia, unspecified; Z79.82 Long term (current) use of aspirin; Z79.02 Long term (current) use of antithrombotics/antiplatelets; Z79.4 Long term (current) use of insulin; Z79.899 Other long term (current) drug therapy
CPT/HCPCS: 36415; 74177; 80053; 81001; 81003; 83690; 85025; 96361; 96374; 96375; 99284; J2270; J2405; Q9967

== ENCOUNTER 2022-06-06 06:31 | Day surgery (SDC) | payer MEDICARE, MEDICAID, SELFPAY ==
[2022-05-30 12:27] VITALS: BMI 33.3
--- NOTE | 2022-06-06 06:44 | MHC.SHP ---
Pre-Procedural Eval Section A Date of Service: 06/06/22 Section B Chief Complaint: Dysphagia, Relevant Family History (Specify if Yes): No Relevant Social History: None Present Medications: see Short Stay Collaborative assessment Medical History: Significant History (Asthma Bleeding hemorrhoids Diabetes mellitus Elevated cholesterol GERD (gastroesophageal reflux disease) HTN (hypertension)) History of Previous Operations: Relevant previous surgery/procedure and date(s) (History of carpal tunnel release History of colonoscopy History of esophagogastroduodenoscopy (EGD) History of neck surgery History of release of tendon History of sinus surgery History of tonsillectomy History of umbilical hernia repair) Allergies: Allergies Allergy/AdvReac Type Severity Reaction Status Date / Time Penicillins [PENICILLINS] Allergy Unknown RASH Verified 05/13/22 06:30 Review of Systems Sugical H&P ROS: Negative: Constitution, Cardiovascular, Respiratory, Neurological, Psychiatric, Hem-Onc, Allergic/Immunologic, Gastrointestinal, Genitourinary, Musculoskeletal, Integumentary, Endocrine and Eyes/Ears/Nose/Throat Exam Surgical H&P Exam: Normal: HEENT, Normal: Heart, Normal: Lungs, Normal: Extremities, Normal: Abdomen, Normal: Skin and Normal: Neurological Plan Diagnosis/Plan: Unchanged I have reviewed the history and physical and performed a pertinent physical examination on my patient. No changes have occurred unless specified. Time Spent With Patient Time: Total time managing care of this patient today ____ minutes.
[2022-06-06 06:49] VITALS: BP 130/84; PULSE 99; RESP 18; TEMP 36.7; O2SAT 97
[2022-06-06 06:52] LABS: Glucose, Whole Blood 113 mg/dL (60-115)
[2022-06-06 06:58] VITALS: BMI 32.5
[2022-06-06] MEDS: Lactated Ringers 1,000 ML 50 ML IVCONT (07:16)
--- NOTE | 2022-06-06 07:30 | P.CONAN_ITS ---
[facility] Active Problems Active Problems: All Active Problems (Updated 05/14/22 @ 00:00 by Background Shane) History of esophageal dilatation (Acute) Dysphagia (Acute) GERD (gastroesophageal reflux disease) (Acute) Constipation by delayed colonic transit (Acute) Upper abdominal pain (Acute) Bleeding hemorrhoids (Acute) Diabetes mellitus (Acute) Asthma (Acute) Past Medical History Medical History Asthma Bleeding hemorrhoids Diabetes mellitus Elevated cholesterol GERD (gastroesophageal reflux disease) HTN (hypertension) Family History Family History Mother History of colon cancer Brother History of liver cancer Maternal Aunt History of colon cancer Father No problems noted. Family history of problems with anesthesia: No Surgical History Surgical History History of carpal tunnel release History of colonoscopy History of esophagogastroduodenoscopy (EGD) History of neck surgery History of release of tendon History of sinus surgery History of tonsillectomy History of umbilical hernia repair History of Problems with Anesthesia: No Social History Social History Household Members: None Alcohol intake: never Patient Tobacco Use Status: Former Tobacco user Quit Date: 20 years ago Use of substances other than those prescribed or required for medical reasons: No Are you DNR?: No Advance Directives: No Advance Directives Information Provided: Yes Meds Allergies Allergy/AdvReac Type Severity Reaction Status Date / Time Penicillins [PENICILLINS] Allergy Unknown RASH Verified 05/13/22 06:30 Active Medications: Current Medications Lactated Ringer's (Lr) 1,000 mls @ 50 mls/hr IVCONT .Q20H JEANETH Last Admin: 06/06/22 07:16 Dose: 50 mls/hr Home Medications Medication Instructions Recorded Confirmed Last Taken Type aspirin 81 mg chewable tablet 81 mg PO DAILY 02/19/20 02/13/22 Unknown History (Aspirin Childrens) atorvastatin 40 mg tablet (Lipitor) 40 mg PO BEDTIME 02/19/20 02/13/22 Unknown History insulin glargine 100 unit/mL (3 80 unit subcut QPM 02/19/20 02/13/22 Unknown History mL) subcutaneous pen (Lantus Solostar U-100 Insulin) losartan 100 mg tablet 100 mg PO DAILY 02/19/20 02/13/22 Unknown History metformin 500 mg tablet 500 mg PO BID 02/19/20 02/13/22 Unknown History methadone 10 mg tablet 10 mg PO Q6-8H PRN Pain 02/19/20 02/13/22 08/19/20 History montelukast 10 mg tablet 10 mg PO DAILY 02/19/20 02/13/22 Unknown History (Singulair) bupropion HCl 300 mg 24 hr tablet, 300 mg PO QAM 09/10/20 02/13/22 Unknown History extended release duloxetine 60 mg capsule,delayed 60 mg PO DAILY 09/10/20 02/13/22 Unknown History release semaglutide 2 mg/dose (8 mg/3 mL) 2 mg subcut QWEEK 08/12/21 02/13/22 Unknown History subcutaneous pen injector (Ozempic) zolpidem 10 mg tablet 10 mg PO BEDTIME PRN insomnia 08/12/21 02/13/22 Unknown History albuterol sulfate 90 mcg/actuation 2 puff inhalation Q4H PRN Wheezing 10/27/21 02/13/22 Unknown History aerosol inhaler alprazolam 2 mg tablet 1 tab PO BID PRN anxiety 10/27/21 02/13/22 Unknown History brimonidine 0.15 % eye drops 1 drp BID 10/27/21 02/13/22 Unknown History cetirizine 10 mg tablet 1 tab PO QPM 10/27/21 02/13/22 Unknown History fluticasone propionate 50 1 - 2 spray intranasal DAILY 10/27/21 02/13/22 Unknown History mcg/actuation nasal spray,suspension latanoprost 0.005 % eye drops 1 drp ophthalmic (eye) BEDTIME 10/27/21 02/13/22 Unknown History meloxicam 7.5 mg tablet 1 tab PO DAILY PRN pain 10/27/21 02/13/22 Unknown History multivitamin with folic acid 400 1 tab PO DAILY 10/27/21 02/13/22 Unknown History mcg tablet (Tab-A-Kelsie) naloxone 4 mg/actuation nasal 1 spray intranasal 10/27/21 02/13/22 Unknown History spray (Narcan) tamsulosin 0.4 mg capsule 1 tab PO BEDTIME 10/27/21 02/13/22 Unknown History Exam Exam Date and Time: June 06, 2022 0730 Height,Weight and Vital Signs: Height 6 ft 4 in Weight 121.109 kg Last Vital Signs Temp 98.1 F 06/06/22 06:49 Pulse 99 06/06/22 06:49 Resp 18 06/06/22 06:49 BP 130/84 06/06/22 06:49 Pulse Ox 97 06/06/22 06:49 O2 Del Method 06/06/22 06:49 Pertinent Lab Results Pertinent Lab Results: Laboratory Tests 06/06/22 06:47 POC Glucose 113 Airway Mallampati Class: III TM Dist: >3cm Neck ROM: Limited Loose/Missing/Broken Teeth: No Heart: RRR Lungs: CTA Assessment and Plan Assessment Anesthesia Assessment: Anesthesia Plan Discussed and Chart Reviewed Final Anesthetic Review Family History of Problems with Anesthesia: No History of Problems with Anesthesia: No NPO: Yes ASA Class: II Final Preanesthetic Review: Meds/Allgs Chart Reviewed, Consent Obtained/Reviewed and Anes Risks/Benef Reviewed Patient Risk: Low Procedure Risk: Intermediate Anesthetic Plan Anesthetic Plan: MAC: Disposition: Standard PACU
--- NOTE | 2022-06-06 07:53 | W.PM.OPN ---
Operative Note Operative Note Date of Service: 06/06/22 Narrative: Procedure Description: EGD Indication: dysphagia Anesthesia: MAC FLEXIBLE TRANSORAL UPPER GASTROINTESTINAL ENDOSCOPY UPPER ENDOSCOPY Consent: Indications for the procedure and potential complications of bleeding, perforation, reaction to medications and missed diagnosis were discussed with the patient and informed consent was obtained. Instrument: Olympus GIF H 190 J mid size upper endoscope Monitoring: Vital signs and clinical assessment, continuous EKG monitoring, Pulse oximetry, Carbon Dioxide monitoring and blood pressure monitoring were done throughout the procedure. Procedure: The patient was placed in the left lateral decubitis position and pre-procedure medications were administered and a bite block was placed. The endoscope was inserted into the mouth and advanced under direct vision to the third part of duodenum. A careful inspection was made as the upper endoscope was withdrawn including a retroflexed examination of the proximal stomach; Findings and interventions are described below. Findings: Larynx:normal Esophagus: GE junction at 40? cm, diaphragm hiatus at 40 cm, irregular Z line, savary dilation done at 17 mm using a guide wire-- no tears seen Stomach: Patchy gastric erythema. Biopsies were obtained. Grade 2 flap valve on retroflexed examination of the cardia. Duodenum: normal Intervention: Biopsies as noted above, savary dilation Impression/Findings: gastritis PLAN: ensure compliance with PPI magic mouthwash for 1 week
[2022-06-06 08:10] VITALS: BP 113/70; PULSE 92; RESP 20; TEMP 36.3; O2SAT 97
[2022-06-06 08:25] VITALS: BP 117/81; PULSE 96; RESP 20; O2SAT 97
[2022-06-06 08:40] VITALS: BP 125/85; PULSE 99; RESP 20; TEMP 36.6; O2SAT 95
== END 2022-06-06 09:11 | disposition home or self-care (01) ==
PROVIDERS: PCP Internal Medicine; Visit Provider Internal Medicine Gastroenterology
PROC: 0DJ08ZZ Inspection of Upper Intestinal Tract, Via Natural or Artificial Opening Endoscopic (ICD-10-PCS; CPT 43235; principal; 2022-06-06 07:30)
DX: R13.10 Dysphagia, unspecified (principal); K29.50 Unspecified chronic gastritis without bleeding; K22.89 Other specified disease of esophagus; K44.9 Diaphragmatic hernia without obstruction or gangrene; K21.9 Gastro-esophageal reflux disease without esophagitis; J45.909 Unspecified asthma, uncomplicated; E11.9 Type 2 diabetes mellitus without complications; E78.00 Pure hypercholesterolemia, unspecified; I10 Essential (primary) hypertension; Z79.899 Other long term (current) drug therapy; Z79.84 Long term (current) use of oral hypoglycemic drugs; Z79.51 Long term (current) use of inhaled steroids; Z88.0 Allergy status to penicillin; Z87.891 Personal history of nicotine dependence
CPT/HCPCS: 43248; 43239; 82947; 88305; 88342; C1769

== ENCOUNTER 2022-07-04 07:55 | Emergency (ER) | payer MEDICARE, MEDICAID, SELFPAY ==
[2022-07-04 07:58] VITALS: BP 142/78; PULSE 75; RESP 16; TEMP 36.4; O2SAT 98; BMI 32.5
[2022-07-04 09:51] VITALS: BP 138/79; PULSE 88; RESP 18; TEMP 36.3; O2SAT 98
--- NOTE | 2022-07-04 10:05 | ED_ITS ---
HPI - Back Pain/Injury General Chief Complaint: Back Pain/Injury Stated Complaint: sciatic pain Time Seen by Provider: 07/04/22 09:31 Source: patient Mode of arrival: ambulatory Limitations: language barrier (Sinhala-speaking) History of Present Illness HPI Narrative: 57yoM with a PMHx of asthma, diabetes, GERD, hyperlipidemia, hypertension, fibromyalgia, chronic right shoulder pain, chronic neck pain and chronic lower back pain with intermittent episodes of sciatica presenting to the ED with complaints of lower back pain radiating to his right lower leg which is similar to his prior episodes for the past few days worse today.? He also reports acute on chronic right shoulder pain especially with movement. He denies any fevers, chills, dizziness, headaches, neck pain/ stiffness, trouble swallowing or lexis thing, chest pain or shortness of breath, dyspnea on exertion, orthopnea, paresthesias, palpitations, abdominal pain, flank pain, hematuria, dysuria, urinary incontinence or retention, bowel incontinence or retention, saddle anesthesia, history of IV drug use or any other symptoms complaints or concerns at this time.? Reports that he normally gets prescribed Motrin, prednisone and muscle relaxers and that provides symptomatic relief for his pain.? He has been seen here in the past for same complaint. MD elicited complaint: back pain Pertinent past history: prior back pain Onset (ago): week(s) (1 week worse today) Timing: constant Severity: moderate Similar Symptoms Previously: Yes Quality: burning and aching Location: lumbar spine Radiation: right leg below the knee Exacerbating factors: movement, supine positioning, sitting upright, walking and lifting Relieving factors: none Context: unknown Associated symptoms: denies other symptoms Treatments prior to arrival: other (He has tried [id number] medication no symptomatic relief therefore he reports usually Motrin, Flexeril and prednisone helps his symptoms) Work related injury: No Related Data Home Medications Medication Instructions Recorded Confirmed aspirin 81 mg chewable tablet 81 mg PO DAILY 02/19/20 06/06/22 (Aspirin Childrens) atorvastatin 40 mg tablet (Lipitor) 40 mg PO BEDTIME 02/19/20 06/06/22 insulin glargine 100 unit/mL (3 80 unit subcut QPM 02/19/20 06/06/22 mL) subcutaneous pen (Lantus Solostar U-100 Insulin) losartan 100 mg tablet 100 mg PO DAILY 02/19/20 06/06/22 metformin 500 mg tablet 500 mg PO BID 02/19/20 06/06/22 methadone 10 mg tablet 10 mg PO Q6-8H PRN Pain 02/19/20 06/06/22 montelukast 10 mg tablet 10 mg PO DAILY 02/19/20 06/06/22 (Singulair) bupropion HCl 300 mg 24 hr tablet, 300 mg PO QAM 09/10/20 06/06/22 extended release duloxetine 60 mg capsule,delayed 60 mg PO DAILY 09/10/20 06/06/22 release semaglutide 2 mg/dose (8 mg/3 mL) 2 mg subcut QWEEK 08/12/21 06/06/22 subcutaneous pen injector (Ozempic) zolpidem 10 mg tablet 10 mg PO BEDTIME PRN insomnia 08/12/21 06/06/22 albuterol sulfate 90 mcg/actuation 2 puff inhalation Q4H PRN Wheezing 10/27/21 06/06/22 aerosol inhaler alprazolam 2 mg tablet 1 tab PO BID PRN anxiety 10/27/21 06/06/22 brimonidine 0.15 % eye drops 1 drp BID 10/27/21 06/06/22 cetirizine 10 mg tablet 1 tab PO QPM 10/27/21 06/06/22 fluticasone propionate 50 1 - 2 spray intranasal DAILY 10/27/21 06/06/22 mcg/actuation nasal spray,suspension latanoprost 0.005 % eye drops 1 drp ophthalmic (eye) BEDTIME 10/27/21 06/06/22 meloxicam 7.5 mg tablet 1 tab PO DAILY PRN pain 10/27/21 06/06/22 multivitamin with folic acid 400 1 tab PO DAILY 10/27/21 06/06/22 mcg tablet (Tab-A-Kelsie) naloxone 4 mg/actuation nasal 1 spray intranasal 10/27/21 02/13/22 spray (Narcan) tamsulosin 0.4 mg capsule 1 tab PO BEDTIME 10/27/21 06/06/22 Previous Rx's Medication Instructions Recorded menthol 0.44 %-zinc oxide 20.6 % 1 applic topical QID PRN skin 02/19/20 topical ointment (Calmoseptine) irritation #71 grams sucralfate 1 gram tablet 1 g PO BID #60 tabs 04/13/20 hydrocortisone 2.5 % topical cream 1 appl NE BID-QID PRN hemorrhoids 07/09/20 with perineal applicator #30 grams (Procto-Med HC) sucralfate 100 mg/mL oral 10 ml PO BID #400 mL 08/19/20 suspension psyllium husk 3.4 gram/5.4 gram 1 tbsp PO BID #660 grams 08/12/21 oral powder (Metamucil) dicyclomine 10 mg capsule 10 mg PO TID #30 caps 09/05/21 ibuprofen 800 mg tablet 800 mg PO Q8H PRN pain #14 tabs 09/19/21 esomeprazole magnesium 40 mg 40 mg PO DAILY #30 caps 10/13/21 capsule,delayed release baclofen 10 mg tablet 10 mg PO BID #20 tabs 04/03/22 Magic Mouthwash 10 ml PO QID #240 mL 06/06/22 Diphen/Lido/Antacid 1:1:1 240 mL suspension cyclobenzaprine 10 mg tablet 10 mg PO Q8H #14 tabs 07/04/22 ketorolac 10 mg tablet 10 mg PO Q8H #14 tabs 07/04/22 prednisone 20 mg tablet 40 mg PO DAILY inflammation 5 days 07/04/22 #10 tabs Allergies Allergy/AdvReac Type Severity Reaction Status Date / Time Penicillins [PENICILLINS] Allergy Unknown RASH Verified 07/04/22 08:00 Review of Systems Review of Systems: Constitutional : No trauma, No Weight loss, No Fever, No Chills, ENT/Mouth : No Hearing loss, No Ear Pain, No Nasal Congestion, No Sinus Pain, No Hoarseness, No sore throat, No Rhinorrhea, No Swallowing Difficulty Cardiovascular : No Chest Pain, No SOB Respiratory : No Cough, No Dyspnea Gastrointestinal : No Nausea, No Vomiting, No Diarrhea, No abdominal Pain, No Hematochezia, No Melena Genitourinary : No Dysuria, No Urinary Frequency, No Hematuria, No Urinary or Bowel Incontinence/retention Musculoskeletal : + Back pain, No neck pain, No joint stiffness, No joint swelling Skin : No Skin Lesions, No rash or signs of infection Neuro : No Weakness, + radiation, No Numbness, No Paresthesias, No headache, no loss of bowel or bladder incontinence, no saddle anesthesia Denies history of IV drug usage. Yes all other systems are reviewed and are negative [facility] Past Medical History Attestation statement: The following information was validated with the patient. Source: old records reviewed and nursing notes reviewed Medical History Asthma Bleeding hemorrhoids Diabetes mellitus Elevated cholesterol GERD (gastroesophageal reflux disease) HTN (hypertension) Surgical History History of carpal tunnel release History of colonoscopy History of esophagogastroduodenoscopy (EGD) History of neck surgery History of release of tendon History of sinus surgery History of tonsillectomy History of umbilical hernia repair Family History Family History Mother History of colon cancer Brother History of liver cancer Maternal Aunt History of colon cancer Father No problems noted. Social History Social History Household Members: None Alcohol intake: never Patient Tobacco Use Status: Former Tobacco user Quit Date: 20 years ago Smoked in Last 30 Days: No Use of substances other than those prescribed or required for medical reasons: No Advance Directives: No Advance Directives Information Provided: Yes Physical Exam Vital Signs: Vital Signs: Last Vital Signs Temp 97.3 F 07/04/22 09:51 Pulse 88 07/04/22 09:51 Resp 18 07/04/22 09:51 BP 138/79 07/04/22 09:51 Pulse Ox 98 07/04/22 09:51 O2 Del Method 07/04/22 09:51 BMI result Body Mass Index 32.5 vital signs have been reviewed as normal and appeared to be correct. Blood p ressure normal. Heart rate normal. Respiration rate normal. Temperature normal. Oxygen saturation normal. Appearance: Alert. Oriented X3. No acute distress. Head: Normal external exam. Normocephalic. Atraumatic. No Rodriguez signs noted. No raccoon eyes noted Eyes: PERRLA. EOMI. Conjunctiva and sclera normal. Eyelids normal. ENT: EAC normal. TM's Normal. Pharynx normal. Uvula midline. Moist mucous membranes. No trismus noted. No drooling noted. No muffled voice noted. Neck: Normal inspection. Neck supple. FROM. No adenopathy. Thyroid Normal. No meningeal signs. No neck mass noted. CVS: Normal heart rate and rhythm. Heart sound normal. No murmurs noted. Pulses normal throughout. Respiratory: No respiratory distress. Painless inspiration. Breath sounds no rmal. No wheezes/rales/rhonchi noted. Chest nontender. No accessory muscle usage noted or decreased air movement noted. Abdomen: Soft and nontender. Bowel sounds normal in all 4 quadrants. No disten tion noted. No organomegaly noted. No visible injury noted. Back: No CVA tenderness. Full range of motion noted. No obvious deformities, or edema. Mild para-spinal muscular tenderness from lumbar region to coccyx. Full ROM in back and lower extremities. 5/5 strength hip extension/flexion, abduction, adduction. Mild Lumbar pain with hip flexion against resistance. Straight leg raise test potitive on right; Straight leg raise test negative on left; Reflexes normal ankle and knee bilaterally; EHL motor strength normal bilaterally. No rashes/lesion/induration/fluctuance or signs infection noted. Skin: Skin warm and dry. Normal skin color. Normal skin turgor. No rashes/lesions/lacerations noted. Extremities: No lower extremity edema. Extremities exhibit normal range of motion. Extremities nontender. Neuro: Oriented X 3. No motor deficit. No sensory deficit. Reflexes normal. Patient has a normal steady gait. Course Course Course Narrative: Pt c likely muscular pain, but could be herniated disc. Neuro exam shows no deficits. Not c/w AAA/epidural abscess/dissection.No high risk Hx (Incont, fever, immunosupp, recent surgery/LP, coag, signif trauma, wt loss, puls mass, hx/o Ca, TB, or IVDU) to warrant MRI/CT today. Not c/w Pyelo/UTI/kidney stone/spinal fx. Not cauda equina syndrome. Imaging not currently indicated. DC c meds and f/u. Medical Decision Making External Record Review All prior labs, imaging, notes that are accessible in our system either inpatient or outpatient reviewed by myself Chronic Conditions Patient?s care impacted by: Diabetes, Hypertension and Other (Sciatica fibromyalgia, chronic right shoulder pain and neck pain and multiple other chronic conditions see HPI) Discharge Plan Discharge Clinical Impression: Lumbar radiculopathy, Sciatica Patient Disposition: Home, Self-Care Instructions: Sciatica (ED), Lower Back Exercises (ED) Prescriptions: New ketorolac 10 mg tablet 10 mg PO Q8H Qty: 14 0RF cyclobenzaprine 10 mg tablet 10 mg PO Q8H Qty: 14 0RF prednisone 20 mg tablet 40 mg PO DAILY 5 Days Qty: 10 0RF No Action dicyclomine 10 mg capsule 10 mg PO TID Qty: 30 0RF esomeprazole magnesium 40 mg capsule,delayed release(DR/EC) 40 mg PO DAILY Qty: 30 0RF sucralfate 100 mg/mL suspension 10 ml PO BID Qty: 400 1RF latanoprost 0.005 % drops 1 drp ophthalmic (eye) BEDTIME cetirizine 10 mg tablet 1 tab PO QPM meloxicam 7.5 mg tablet 1 tab PO DAILY PRN (Reason: pain) tamsulosin 0.4 mg capsule 1 tab PO BEDTIME alprazolam 2 mg tablet 1 tab PO BID PRN (Reason: anxiety) albuterol sulfate 90 mcg/actuation HFA aerosol inhaler 2 puff inhalation Q4H PRN (Reason: Wheezing) fluticasone propionate 50 mcg/actuation spray,suspension 1 - 2 spray intranasal DAILY brimonidine 0.15 % drops 1 drp BID multivitamin with folic acid [Tab-A-Kelsie] 400 mcg tablet 1 tab PO DAILY naloxone [Narcan] 4 mg/actuation spray,non-aerosol 1 spray intranasal baclofen 10 mg tablet 10 mg PO BID Qty: 20 0RF Magic Mouthwash Diphen/Lido/Antacid 1:1:1 240 mL suspension 10 ml PO QID Qty: 240 0RF Rx Instructions: Lidocaine Viscous 2 % 80mL; diphenhydramine 12.5 mg/5 mL 80mL; aluminum-mag hydrox-simeth [id number]/5mL 80mL ibuprofen 800 mg tablet 800 mg PO Q8H PRN (Reason: pain) Qty: 14 0RF sucralfate 1 gram tablet 1 g PO BID Qty: 60 3RF metformin 500 mg tablet 500 mg PO BID Lantus Solostar U-100 Insulin 100 unit/mL (3 mL) insulin pen 80 unit subcut QPM atorvastatin [Lipitor] 40 mg tablet 40 mg PO BEDTIME losartan 100 mg tablet 100 mg PO DAILY montelukast [Singulair] 10 mg tablet 10 mg PO DAILY methadone 10 mg tablet 10 mg PO Q6-8H PRN (Reason: Pain) aspirin [Aspirin Childrens] 81 mg tablet,chewable 81 mg PO DAILY Calmoseptine 0.44-20.6 % ointment 1 applic topical QID PRN (Reason: skin irritation) Qty: 71 3RF duloxetine 60 mg capsule,delayed release(DR/EC) 60 mg PO DAILY bupropion HCl 300 mg tablet extended release 24 hr 300 mg PO QAM hydrocortisone [Procto-Med HC] 2.5 % cream with perineal applicator 1 appl NE BID-QID PRN (Reason: hemorrhoids) Qty: 30 0RF zolpidem 10 mg tablet 10 mg PO BEDTIME PRN (Reason: insomnia) Ozempic 2 mg/dose (8 mg/3 mL) pen injector 2 mg subcut QWEEK Metamucil 3.4 gram/5.4 gram powder 1 tbsp PO BID Qty: 660 2RF Rx Instructions: mix into at least 8 oz of water or juice before administering Referrals: Vamshi Man MD [Primary Care Provider] - 2 days Print Language: Sinhala
--- NOTE | 2022-07-04 10:37 | PC.NURSE ---
this nurse went to medicate the patient and the patient is not in room, will check back and see if the patient has returned shortly.
--- NOTE | 2022-07-04 11:05 | PC.NURSE ---
provider was notified patient left without being medicated or taking the discharge paperwork.
== END 2022-07-04 11:08 | disposition home or self-care (01) ==
PROVIDERS: Emergency Provider Emergency Medicine; PCP Internal Medicine
DX: M54.41 Lumbago with sciatica, right side (principal); Z79.899 Other long term (current) drug therapy
CPT/HCPCS: 99282; 99284

== ENCOUNTER → 2022-07-10 10:56 | Outpatient (BNVA) | payer MEDICARE, MEDICAID, SELFPAY | PROVIDERS: PCP Internal Medicine; Visit Provider Internal Medicine Gastroenterology | DX: R10.9 Unspecified abdominal pain (principal) | CPT/HCPCS: 81003; 99212 ==

== ENCOUNTER 2022-07-10 15:29 | Outpatient (REF) | payer MEDICARE, MEDICAID, SELFPAY ==
[2022-07-10 15:51] LABS: Appearance Urine Clear; Color Urine Dark Yellow; Glucose Urine UA 500 mg/dL (Negative); Leukocyte Esterase Urine Negative (Negative); Nitrite Urine Negative (Negative); PH 5.5 (5.0-9.0); Specific Gravity - Urine 1.015 (1.005-1.025); Urine Blood Negative (Negative); Urine Ketones Trace mg/dL (Negative); Urine Protein Trace mg/dL (Neg-Trace)
== END 2022-07-10 15:30 | disposition home or self-care (01) ==
LOC: HO.LNP 15:29
PROVIDERS: Visit Provider Internal Medicine Gastroenterology
DX: Z13.89 Encounter for screening for other disorder (principal)
CPT/HCPCS: 81003

== ENCOUNTER 2022-08-25 08:47 | Outpatient (REF) | payer MEDICARE, MEDICAID, SELFPAY ==
--- NOTE | ~2022-08-25 | US_ITS ---
EXAMINATION: US COMPLETE ABDOMEN WITH LIVER ELASTOGRAPHY CLINICAL INFORMATION: Abdominal pain COMPARISON: Abdominal ultrasound 12/13/2021 TECHNIQUE: Real-time imaging of the abdominal viscera. Noninvasive ultrasound liver fibrosis assessment is performed using Prema ElastPQ point quantification shear wave elastography (2D-SWE) with a C5-2 MHz transducer. Multiple elastography samples are obtained. FINDINGS: PANCREAS: Normal. The visualized pancreatic head and body are normal in appearance. The remainder of the pancreas is obscured from visualization by the overlying bowel gas. ABDOMINAL AORTA: The proximal, middle, and distal aortic segments are normal in caliber. INFERIOR VENA CAVA: Visualized portions are normal. LIVER: The liver is normal in size. There is diffusely increased echogenicity of the liver. Decreased echogenicity adjacent to the gallbladder is nonspecific but most suggestive of focal fatty sparing. The right lobe measures 14.4 cm in length. The left lobe measures 10.9 cm in length. Portal flow is hepatopedal Shear wave liver elastography median stiffness is 1.6 m/s (reference: normal median stiffness is 1.3 m/s or less). IQR/median stiffness to assess sampling precision is 0.07 (reference: good quality data set is IQR/median stiffness of 0.15 or less). GALLBLADDER: Normal. The gallbladder is physiologically distended without evidence of stones, sludge, polyps, wall thickening or pericholecystic fluid. COMMON BILE DUCT: Normal in caliber measuring 0.2 cm in diameter. RIGHT KIDNEY: The kidney measures 13.3 cm in maximum dimension. A few small relatively simple appearing cysts are noted, largest measuring approximately 3.4 cm. No renal calculi or hydronephrosis. LEFT KIDNEY: The kidney measures 13.6 cm in maximum dimension. A single 9 mm simple appearing midpole cyst is noted. No renal calculi or hydronephrosis. SPLEEN: The spleen measures 12.9 cm in maximum dimension. FREE FLUID: None. US/US abdomen comp w elastography IMPRESSION: 1. Diffusely increased liver echogenicity suggesting hepatic steatosis. 2. Mild splenomegaly. 3. Liver elastography: In the absence of other known clinical signs, measurements rule out compensated advanced chronic liver disease. If there are known clinical signs, further testing may be needed for confirmation. REFERENCE: Society of Radiologists in Ultrasound Liver Stiffness Thresholds (2020): LIVER STIFFNESS THRESHOLDS: *Liver Stiffness equal or less than 1.3 m/s: High probability of being normal. *Liver Stiffness less than 1.7 m/s: In the absence of other known clinical signs, rules out compensated advanced chronic liver disease. *Liver Stiffness 1.7-2.1 m/s: Suggestive of compensated advanced chronic liver disease but need further test for confirmation. *Liver Stiffness over 2.1 m/s: Rules in compensated advanced chronic liver disease. *Liver Stiffness over 2.4 m/s: Suggestive of clinically significant portal hypertension. QUALITY OF DATA SET: *IQR/Median value equal or less than 0.15 implies a quality data set. *IQR/Median value over 0.15 implies a poor quality data set. SIGNIFICANT CHANGE FROM PRIOR EXAM: Significant change if liver stiffness measurement is 10% or greater from prior exam. OTHER CONSIDERATIONS: The stage of liver fibrosis may be overestimated in the setting of acute hepatitis, liver inflammation, elevated liver function tests, hepatic vascular congestion, obstructive cholestasis, non-fasting state, and infiltrative diseases such as amyloidosis and lymphoma. In some patients with NAFLD, the liver stiffness thresholds for compensated advanced chronic liver disease may be lower. In causes other than viral hepatitis and NAFLD, liver stiffness thresholds are not well established.
== END 2022-08-25 08:48 | disposition home or self-care (01) ==
LOC: HO.US 08:47
PROVIDERS: PCP Internal Medicine; Visit Provider Internal Medicine Gastroenterology
DX: R10.9 Unspecified abdominal pain (principal)
CPT/HCPCS: 76705; 76981

== ENCOUNTER 2022-09-17 07:05 | Emergency (ER) | payer MEDICARE, MEDICAID, SELFPAY ==
--- NOTE | ~2022-09-17 | CT_ITS ---
EXAMINATION: CT FACIAL BONES WITHOUT CONTRAST CLINICAL INFORMATION: History of right parotid swelling and pain. COMPARISON: None available. TECHNIQUE: Multidetector CT imaging examination through the maxillofacial region is performed without use of intravenous contrast. Axial images and multiplanar reformatted images are reviewed. This CT examination was performed using dose optimization techniques as appropriate, variously including the following: *Automated exposure control *Adjustment of mA and/or kV according to patient size (this includes techniques or standardized protocols for targeted exams where dose is matched to indication/reason for exam; i.e. extremities or head) *Use of iterative reconstruction technique DLP: 310 mGy-cm FINDINGS: No soft tissue mass or fluid collection within the examined maxillofacial region. The parotid glands have normal attenuation. There are no glandular or ductal calcifications. The submandibular glands, which have a normal appearance, are partially included in the [id number]. No pathologic sized lymph nodes within the visualized portion of the upper neck. The visualized muscles of the facial region and upper neck have normal attenuation. The partially visualized intracranial structures are normal. There is atherosclerotic calcification of cavernous carotid arteries. There is facet osteoarthritis and mild disc degenerative change at C2-C3. The right C3-C4 facet joint is ankylosed. The globes and orbital regan, including lamina papyracea, are intact. The orbital apex, optic canals, and retrobulbar fat planes are normal. The maxilla, mandible and temporomandibular joints are intact. No periodontal disease. Nasal bones, pterygoid plates and zygomatic arches are normal. The paranasal sinuses are well-aerated and the ostiomeatal units are patent. No air-fluid levels in the paranasal sinuses. CT/CT facial bones wo IV con IMPRESSION: * No significant findings. No acute abnormalities within the maxillofacial region. No maxillofacial bone injury. * Parotid glands have a normal imaging appearance. No evidence of sialoadenitis.
[2022-09-17 07:10] VITALS: BP 129/90; PULSE 99; RESP 18; TEMP 36.1; O2SAT 97; BMI 33.1
[2022-09-17 07:43] LABS: COVID-19 Test Negative (Negative); IDNOW Serial# 6674DD1D
--- NOTE | 2022-09-17 07:56 | ED.GENADULT ---
HPI - General Adult General Chief complaint: General Medical Stated complaint: R side ear pain Time Seen by Provider: 09/17/22 07:49 Source: patient Mode of arrival: ambulatory Limitations: no limitations History of Present Illness HPI narrative: Patient complaining of pain right side of the face jaw pain your pain for last 1 week you had similar symptoms when he had COVID last year home COVID test was negative no fever no chills pain increases on chewing food. Pain started all of a sudden is more on the right in the left side but does have swelling of both sides denies any tooth problem patient does have pain off and on in the right TMJ joint for a while hears clicks sometimes Related Data Home Medications Medication Instructions Recorded Confirmed aspirin 81 mg chewable tablet 81 mg PO DAILY 02/19/20 06/06/22 (Aspirin Childrens) atorvastatin 40 mg tablet (Lipitor) 40 mg PO BEDTIME 02/19/20 06/06/22 insulin glargine 100 unit/mL (3 80 unit subcut QPM 02/19/20 06/06/22 mL) subcutaneous pen (Lantus Solostar U-100 Insulin) losartan 100 mg tablet 100 mg PO DAILY 02/19/20 06/06/22 methadone 10 mg tablet 10 mg PO Q6-8H PRN Pain 02/19/20 06/06/22 montelukast 10 mg tablet 10 mg PO DAILY 02/19/20 06/06/22 (Singulair) duloxetine 60 mg capsule,delayed 60 mg PO DAILY 09/10/20 06/06/22 release semaglutide 2 mg/dose (8 mg/3 mL) 2 mg subcut QWEEK 08/12/21 06/06/22 subcutaneous pen injector (Ozempic) zolpidem 10 mg tablet 10 mg PO BEDTIME PRN insomnia 08/12/21 06/06/22 albuterol sulfate 90 mcg/actuation 2 puff inhalation Q4H PRN Wheezing 10/27/21 06/06/22 aerosol inhaler alprazolam 2 mg tablet 1 tab PO BID PRN anxiety 10/27/21 06/06/22 brimonidine 0.15 % eye drops 1 drp BID 10/27/21 06/06/22 cetirizine 10 mg tablet 1 tab PO QPM 10/27/21 06/06/22 fluticasone propionate 50 1 - 2 spray intranasal DAILY 10/27/21 06/06/22 mcg/actuation nasal spray,suspension latanoprost 0.005 % eye drops 1 drp ophthalmic (eye) BEDTIME 10/27/21 06/06/22 meloxicam 7.5 mg tablet 1 tab PO DAILY PRN pain 10/27/21 06/06/22 multivitamin with folic acid 400 1 tab PO DAILY 10/27/21 06/06/22 mcg tablet (Tab-A-Kelsie) naloxone 4 mg/actuation nasal 1 spray intranasal 10/27/21 02/13/22 spray (Narcan) tamsulosin 0.4 mg capsule 1 tab PO BEDTIME 10/27/21 06/06/22 blood sugar diagnostic (FreeStyle #10 ea 07/10/22 Lite Strips) glipizide 5 mg tablet 5 mg PO BID 07/10/22 magnesium oxide 400 mg (241.3 mg 400 mg PO DAILY 07/10/22 magnesium) tablet metformin 750 mg tablet,extended 750 mg PO DAILY 07/10/22 release 24 hr pantoprazole 40 mg tablet,delayed 40 mg PO BID 07/10/22 release pen needle, diabetic 33 gauge x #100 ea 07/10/2204/19 (Comfort EZ Pen Sunset) testosterone enanthate 200 mg/mL 150 mg IM Q2W 07/10/22 intramuscular oil tizanidine 4 mg tablet 4 mg PO TID 07/10/22 Previous Rx's Medication Instructions Recorded menthol 0.44 %-zinc oxide 20.6 % 1 applic topical QID PRN skin 02/19/20 topical ointment (Calmoseptine) irritation #71 grams sucralfate 1 gram tablet 1 g PO BID #60 tabs 04/13/20 hydrocortisone 2.5 % topical cream 1 appl [place] BID-QID PRN hemorrhoids 07/09/20 with perineal applicator #30 grams (Procto-Med HC) sucralfate 100 mg/mL oral 10 ml PO BID #400 mL 08/19/20 suspension ibuprofen 800 mg tablet 800 mg PO Q8H PRN pain #14 tabs 09/19/21 baclofen 10 mg tablet 10 mg PO BID #20 tabs 04/03/22 Magic Mouthwash 10 ml PO QID #240 mL 06/06/22 Diphen/Lido/Antacid 1:1:1 240 mL suspension cyclobenzaprine 10 mg tablet 10 mg PO Q8H #14 tabs 07/04/22 ketorolac 10 mg tablet 10 mg PO Q8H #14 tabs 07/04/22 dicyclomine 10 mg capsule 10 mg PO TID #30 caps 07/10/22 wheat dextrin 3 gram/3.5 gram oral 1 packet PO DAILY #28 ea 07/10/22 powder packet (Benefiber Clear Sugar Free(dextrin)) naproxen 500 mg tablet 500 mg PO BID PRN pain #30 tabs 09/17/22 Allergies Allergy/AdvReac Type Severity Reaction Status Date / Time Penicillins [PENICILLINS] Allergy Unknown RASH Verified 07/10/22 11:05 Review of Systems Review of Systems: Yes all other systems are reviewed and are negative [facility] Past Medical History Medical History Asthma Bleeding hemorrhoids Diabetes mellitus Elevated cholesterol GERD (gastroesophageal reflux disease) HTN (hypertension) Surgical History History of carpal tunnel release History of colonoscopy History of esophagogastroduodenoscopy (EGD) History of neck surgery History of release of tendon History of sinus surgery History of tonsillectomy History of umbilical hernia repair Family History Family History Mother History of colon cancer Brother History of liver cancer Maternal Aunt History of colon cancer Father No problems noted. Social History Social History Household Members: None Alcohol intake: never Patient Tobacco Use Status: Former Tobacco user Quit Date: 20 years ago Advance Directives: No Advance Directives Information Provided: No Physical Exam ED Vital Signs: Vital Signs - 24 hr 09/17/22 07:10 Temperature 96.9 F Pulse Rate 99 Respiratory Rate 18 Blood Pressure 129/90 H Pulse Oximetry 97 Oxygen Delivery Method Room Air BMI result Body Mass Index 33.1 Appearance: Alert. Oriented X3. No acute distress. Eyes: PERRLA, No Nystagmus ENT: Pharynx normal. Oral Mucosa moist no dental tenderness, bilateral parotid swelling right more than left with upper cervical lymph node enlarged tender to touch, EAC normal tympanic membrane intact and normal color Neck: Normal inspection. Neck supple. CVS: Normal heart rate and rhythm. Pulses normal. Respiratory: No respiratory distress. Equal air entry bilateral, Abdomen: Soft and nontender. Skin: Skin warm and dry. Normal skin color. Normal skin turgor. Neuro: Oriented X 3. Medications Administered Discontinued Medications Generic Name Dose Route Start Last Admin Trade Name Freq PRN Reason Stop Dose Admin Ibuprofen 600 mg 09/17/22 10:10 09/17/22 10:23 Ibuprofen 600 Mg Tablet PO 09/17/22 10:11 600 mg ONCE ONE Administration Medical Decision Making Medical Decision Making [facility] [place] Narrative: Patient with right parotid swelling with tenderness likely sialolithiasis also has superficial lymph node no signs of infection will get a CT scan to rule out fluid collection Patient's CT scan negative for any acute pathology no lymph node enlarged likely patient has TMJ disorder which he states that having pain in the right TMJ joint for some time off and on got worse for last 1 week Lab Data [facility] [place] Lab Attestation statement: I reviewed the patient's lab results. Labs: Lab Results 09/17/22 Range/Units 07:19 COVID-19 (ARGENIS) Negative (Negative) COVID-19 Clin Com See Note Discharge Plan Discharge Clinical Impression: TMJ arthralgia Patient Disposition: Home, Self-Care Instructions: Temporomandibular Disorder (ED) Additional Instructions: Follow-up with dentist Wear the mouth guard Naproxen for pain Your pain in the right side of the face is from the TMJ joint arthritis Prescriptions: New naproxen 500 mg tablet 500 mg PO BID PRN (Reason: pain) Qty: 30 0RF No Action sucralfate 100 mg/mL suspension 10 ml PO BID Qty: 400 1RF latanoprost 0.005 % drops 1 drp ophthalmic (eye) BEDTIME cetirizine 10 mg tablet 1 tab PO QPM meloxicam 7.5 mg tablet 1 tab PO DAILY PRN (Reason: pain) tamsulosin 0.4 mg capsule 1 tab PO BEDTIME alprazolam 2 mg tablet 1 tab PO BID PRN (Reason: anxiety) albuterol sulfate 90 mcg/actuation HFA aerosol inhaler 2 puff inhalation Q4H PRN (Reason: Wheezing) fluticasone propionate 50 mcg/actuation spray,suspension 1 - 2 spray intranasal DAILY brimonidine 0.15 % drops 1 drp BID multivitamin with folic acid [Tab-A-Kelsie] 400 mcg tablet 1 tab PO DAILY naloxone [Narcan] 4 mg/actuation spray,non-aerosol 1 spray intranasal baclofen 10 mg tablet 10 mg PO BID Qty: 20 0RF Magic Mouthwash Diphen/Lido/Antacid 1:1:1 240 mL suspension 10 ml PO QID Qty: 240 0RF Rx Instructions: Lidocaine Viscous 2 % 80mL; diphenhydramine 12.5 mg/5 mL 80mL; aluminum-mag hydrox-simeth [id number]/5mL 80mL ibuprofen 800 mg tablet 800 mg PO Q8H PRN (Reason: pain) Qty: 14 0RF ketorolac 10 mg tablet 10 mg PO Q8H Qty: 14 0RF cyclobenzaprine 10 mg tablet 10 mg PO Q8H Qty: 14 0RF sucralfate 1 gram tablet 1 g PO BID Qty: 60 3RF Lantus Solostar U-100 Insulin 100 unit/mL (3 mL) insulin pen 80 unit subcut QPM atorvastatin [Lipitor] 40 mg tablet 40 mg PO BEDTIME losartan 100 mg tablet 100 mg PO DAILY montelukast [Singulair] 10 mg tablet 10 mg PO DAILY methadone 10 mg tablet 10 mg PO Q6-8H PRN (Reason: Pain) aspirin [Aspirin Childrens] 81 mg tablet,chewable 81 mg PO DAILY Calmoseptine 0.44-20.6 % ointment 1 applic topical QID PRN (Reason: skin irritation) Qty: 71 3RF duloxetine 60 mg capsule,delayed release(DR/EC) 60 mg PO DAILY hydrocortisone [Procto-Med HC] 2.5 % cream with perineal applicator 1 appl [place] BID-QID PRN (Reason: hemorrhoids) Qty: 30 0RF zolpidem 10 mg tablet 10 mg PO BEDTIME PRN (Reason: insomnia) Ozempic 2 mg/dose (8 mg/3 mL) pen injector 2 mg subcut QWEEK dicyclomine 10 mg capsule 10 mg PO TID Qty: 30 0RF pantoprazole 40 mg tablet,delayed release (DR/EC) 40 mg PO BID (DME) FreeStyle Lite Strips Strip See Rx Instructions .ROUTE TID Qty: 10 Rx Instructions: As directed (DME) pen needle, diabetic [Comfort EZ Pen Sunset] 33 gauge x 1/4 needle See Rx Instructions .ROUTE .MEDSUPPLY Qty: 100 Rx Instructions: As directed metformin 750 mg tablet extended release 24 hr 750 mg PO DAILY glipizide 5 mg tablet 5 mg PO BID tizanidine 4 mg tablet 4 mg PO TID magnesium oxide 400 mg (241.3 mg magnesium) tablet 400 mg PO DAILY testosterone enanthate 200 mg/mL oil 150 mg IM Q2W Benefiber Clear SF (dextrin) 3 gram/3.5 gram powder in packet 1 packet PO DAILY Qty: 28 3RF Rx Instructions: mix into at least 4 oz water or juice before administering Interventions: ED Discharge Assessment Last Done: 09/17/22 10:25 Discharge Date/Time: 09/17/22 10:26
[2022-09-17 09:57] VITALS: BP 144/84; PULSE 66; RESP 16; TEMP 36.6; O2SAT 97
[2022-09-17] MEDS: Ibuprofen 600 MG TABLET PO (10:23)
== END 2022-09-17 10:26 | disposition home or self-care (01) ==
PROVIDERS: Emergency Provider Internal Medicine; PCP Internal Medicine
DX: M26.623 Arthralgia of bilateral temporomandibular joint (principal); Z87.891 Personal history of nicotine dependence; Z20.822 Contact with and (suspected) exposure to COVID-19; Z20.828 Contact with and (suspected) exposure to other viral communicable diseases
CPT/HCPCS: 70486; 87635; 99284

== ENCOUNTER 2022-10-02 07:31 | Emergency (ER) | payer MEDICARE, MEDICAID, SELFPAY ==
--- NOTE | ~2022-10-02 | XR_ITS ---
EXAMINATION: XR FOOT, RIGHT CLINICAL INFORMATION: Pain question fracture COMPARISON: None available. TECHNIQUE: AP, lateral, and oblique views of the right foot. FINDINGS: Study is no evidence of acute fracture or subluxations. There is healed deformity with hardware in place at the base of the fifth metatarsal bone. Soft tissues unremarkable. There is small plantar calcaneal spurring. XR/XR foot RT min 3V IMPRESSION: No fracture seen
[2022-10-02 07:33] VITALS: BP 153/93; PULSE 82; RESP 18; TEMP 36; O2SAT 97; BMI 34.0
--- NOTE | 2022-10-02 09:16 | ED_ITS ---
HPI - Extremity Injury (Lower) General Chief Complaint: Extremity Injury, Lower Stated Complaint: R foot pain Time Seen by Provider: 10/02/22 09:05 Source: patient Mode of arrival: ambulatory Limitations: no limitations History of Present Illness HPI Narrative: 57-year-old male presenting to the emergency department with complaints of a traumatic right foot pain for the past few days worsening. Patient reports 25 years ago he had break in his right foot, and had it repaired with screws, he reports he feels like the screw was poking him, and is very uncomfortable. Patient denies inciting trauma. Denies fevers, chills, rash, numbness, tingling, chest pain, shortness of breath, headache, vision changes, dizziness or weakness. Not currently followed by orthopedics. Related Data Home Medications Medication Instructions Recorded Confirmed aspirin 81 mg chewable tablet 81 mg PO DAILY 02/19/20 06/06/22 (Aspirin Childrens) atorvastatin 40 mg tablet (Lipitor) 40 mg PO BEDTIME 02/19/20 06/06/22 insulin glargine 100 unit/mL (3 80 unit subcut QPM 02/19/20 06/06/22 mL) subcutaneous pen (Lantus Solostar U-100 Insulin) losartan 100 mg tablet 100 mg PO DAILY 02/19/20 06/06/22 methadone 10 mg tablet 10 mg PO Q6-8H PRN Pain 02/19/20 06/06/22 montelukast 10 mg tablet 10 mg PO DAILY 02/19/20 06/06/22 (Singulair) duloxetine 60 mg capsule,delayed 60 mg PO DAILY 09/10/20 06/06/22 release semaglutide 2 mg/dose (8 mg/3 mL) 2 mg subcut QWEEK 08/12/21 06/06/22 subcutaneous pen injector (Ozempic) zolpidem 10 mg tablet 10 mg PO BEDTIME PRN insomnia 08/12/21 06/06/22 albuterol sulfate 90 mcg/actuation 2 puff inhalation Q4H PRN Wheezing 10/27/21 06/06/22 aerosol inhaler alprazolam 2 mg tablet 1 tab PO BID PRN anxiety 10/27/21 06/06/22 brimonidine 0.15 % eye drops 1 drp BID 10/27/21 06/06/22 cetirizine 10 mg tablet 1 tab PO QPM 10/27/21 06/06/22 fluticasone propionate 50 1 - 2 spray intranasal DAILY 10/27/21 06/06/22 mcg/actuation nasal spray,suspension latanoprost 0.005 % eye drops 1 drp ophthalmic (eye) BEDTIME 10/27/21 06/06/22 meloxicam 7.5 mg tablet 1 tab PO DAILY PRN pain 10/27/21 06/06/22 multivitamin with folic acid 400 1 tab PO DAILY 10/27/21 06/06/22 mcg tablet (Tab-A-Kelsie) naloxone 4 mg/actuation nasal 1 spray intranasal 10/27/21 02/13/22 spray (Narcan) tamsulosin 0.4 mg capsule 1 tab PO BEDTIME 10/27/21 06/06/22 blood sugar diagnostic (FreeStyle #10 ea 07/10/22 Lite Strips) glipizide 5 mg tablet 5 mg PO BID 07/10/22 magnesium oxide 400 mg (241.3 mg 400 mg PO DAILY 07/10/22 magnesium) tablet metformin 750 mg tablet,extended 750 mg PO DAILY 07/10/22 release 24 hr pantoprazole 40 mg tablet,delayed 40 mg PO BID 07/10/22 release pen needle, diabetic 33 gauge x #100 ea 07/10/2204/19 (Comfort EZ Pen [place]) testosterone enanthate 200 mg/mL 150 mg IM Q2W 07/10/22 intramuscular oil tizanidine 4 mg tablet 4 mg PO TID 07/10/22 Previous Rx's Medication Instructions Recorded menthol 0.44 %-zinc oxide 20.6 % 1 applic topical QID PRN skin 02/19/20 topical ointment (Calmoseptine) irritation #71 grams sucralfate 1 gram tablet 1 g PO BID #60 tabs 04/13/20 hydrocortisone 2.5 % topical cream 1 appl CA BID-QID PRN hemorrhoids 07/09/20 with perineal applicator #30 grams (Procto-Med HC) sucralfate 100 mg/mL oral 10 ml PO BID #400 mL 08/19/20 suspension ibuprofen 800 mg tablet 800 mg PO Q8H PRN pain #14 tabs 09/19/21 baclofen 10 mg tablet 10 mg PO BID #20 tabs 04/03/22 Magic Mouthwash 10 ml PO QID #240 mL 06/06/22 Diphen/Lido/Antacid 1:1:1 240 mL suspension cyclobenzaprine 10 mg tablet 10 mg PO Q8H #14 tabs 07/04/22 ketorolac 10 mg tablet 10 mg PO Q8H #14 tabs 07/04/22 dicyclomine 10 mg capsule 10 mg PO TID #30 caps 07/10/22 wheat dextrin 3 gram/3.5 gram oral 1 packet PO DAILY #28 ea 07/10/22 powder packet (Benefiber Clear Sugar Free(dextrin)) naproxen 500 mg tablet 500 mg PO BID PRN pain #30 tabs 09/17/22 ketorolac 10 mg tablet 10 mg PO TID PRN pain 5 days #15 10/02/22 tabs prednisone 20 mg tablet 40 mg PO DAILY 5 days #10 tabs 10/02/22 Allergies Allergy/AdvReac Type Severity Reaction Status Date / Time Penicillins [PENICILLINS] Allergy Unknown RASH Verified 10/02/22 07:47 Review of Systems Review of Systems: Constitutional : No Weight loss, No Fever, No Chills, No Fatigue, No Malaise ENT/Mouth : No sore throat, No Rhinorrhea Eyes: No Eye Pain, No Swelling, No Redness Cardiovascular : No Chest Pain, No SOB, No Dyspnea on Exertion, No Orthopnea, No Edema, No Palpitations Respiratory : No Cough, No Sputum, No Wheezing Gastrointestinal : No Nausea, No Vomiting, No Diarrhea, No Constipation, No abdominal Pain, No Hematochezia, No Melena Genitourinary : No Dysuria, No Urinary Frequency, No Hematuria, Musculoskeletal : + joint pain, No Myalgias, No Joint Swelling Skin : No Skin Lesions, No rash Neuro : No Weakness, No Numbness, No Dizziness, No Headache Psych : No Anxiety/Panic, No Depression All other systems reviewed and are negative Yes all other systems are reviewed and are negative PMFSH Past Medical History Attestation statement: The following information was validated with the patient. Source: old records reviewed and nursing notes reviewed Medical History Asthma Bleeding hemorrhoids Diabetes mellitus Elevated cholesterol GERD (gastroesophageal reflux disease) HTN (hypertension) Surgical History History of carpal tunnel release History of colonoscopy History of esophagogastroduodenoscopy (EGD) History of neck surgery History of release of tendon History of sinus surgery History of tonsillectomy History of umbilical hernia repair Family History Family History Mother History of colon cancer Brother History of liver cancer Maternal Aunt History of colon cancer Father No problems noted. Social History Social History Household Members: None Alcohol intake: never Patient Tobacco Use Status: Former Tobacco user Quit Date: 20 years ago Advance Directives: No Advance Directives Information Provided: No Physical Exam Vital Signs: Vital Signs: Last Vital Signs Temp 96.8 F 10/02/22 07:33 Pulse 82 10/02/22 07:33 Resp 18 10/02/22 07:33 BP 153/93 H 10/02/22 07:33 Pulse Ox 97 10/02/22 07:33 O2 Del Method Room Air 10/02/22 07:33 BMI result Body Mass Index 34.0 vss Appearance: Alert.? Oriented X3.? No acute distress.? Head: Normocephalic, atraumatic, no step-offs or deformities Eyes: Pupils equal, round and reactive to light.? Neck: Normal inspection.? Neck supple.? CVS: Normal heart rate and rhythm.? Pulses normal.? Respiratory: No respiratory distress.? Breath sounds normal.? Abdomen: Soft and nontender.? Skin: Skin warm and dry.? Normal skin color.? Normal skin turgor.? Extremities: No lower extremity edema.? No calf ttp. 5/5 strength to bilateral upper and lower extremities 2+ DP, AT, PT pulses equal and b/l. Normal distal sensation to b/l lower extremities. Full range of motion to bilateral ankles, toes. Tenderness to palpation to the lateral aspect of right foot overlying the 5th metatarsal. Neuro: Oriented X 3.? No motor deficit.? No sensory deficit. CN 2-12 intact Course Reevaluation(s) Reevaluation #1: x-ray no acute fractures or dislocations. Will give Toradol and prednisone. And have him follow-up with the orthopedic team. Educated patient on diagnosis and treatment plan, answered all question, patient verbalizes understanding. At this time patient will be discharged home, advised to return with new or worsening symptoms. Educated on worrisome signs and symptoms and when to return. At this time I feel comfortable discharge home. Time: 09:25 Medical Decision Making Medical Decision Making [facility] Narrative: 917 57 year old male presents w/ right foot pain atraumatic hx of fx to r foot 25 years ago with repair PE- No lower extremity edema.? No calf ttp. 5/5 strength to bilateral upper and lower extremities 2+ DP, AT, PT pulses equal and b/l. Normal distal sensation to b/l lower extremities. Full range of motion to bilateral ankles, toes. Tenderness to palpation to the lateral aspect of right foot overlying the Fifth metatarsal. Likely inflammatory arthritis vs gout vs pseudo gout. Unlikely fx, dislocation, septic joint, threatened limb, no signs of neurovascular compromise Plan imaging Differential Diagnosis Differential Diagnoses: The differential diagnosis associated with the presentation includes Likely inflammatory arthritis vs gout vs pseudo gout. Unlikely fx, dislocation, septic joint, threatened limb, no signs of neurovascular compromise Admission/Observation Consideration of admission/observation: Escalation of care including admission/observation considered Lab Data [facility] Lab Attestation statement: I reviewed the patient's lab results. Independent Interpretation I performed an independent interpretation of an: Plain X-Ray (XR/XR foot RT min 3V IMPRESSION: No fracture seen) Radiology Impression Discussion of test interpretation with radiology: I have reviewed the radiologist's reading. External Record Review External record reviewed: Inpatient record, Office record, Outpatient record, Prior outpatient labs, Prior outpatient radiology, Primary care record and Outside ED record Core Measures AMI core measures followed: Yes Measure exclusions: not indicated Critical Care Time Critical Care Time Critical Care Time: No Discharge Plan Discharge Clinical Impression: Foot pain, right Patient Disposition: Home, Self-Care Instructions: Arthralgia (ED) Additional Instructions: Take your medications as prescribed. If you were prescribed antibiotics today, it is important that you take your medication to their entirety, do not skip any doses, do not finish them early. Follow-up with your primary care provider this week. Return to the emergency department with new or worsening symptoms. Such as fevers, chills, chest pain, shortness of breath, nausea, vomiting, dizziness, headache, vision changes, lethargy In case of emergency call 911 XR/XR foot RT min 3V IMPRESSION: No fracture seen Prescriptions: New ketorolac 10 mg tablet 10 mg PO TID PRN (Reason: pain) 5 Days Qty: 15 0RF prednisone 20 mg tablet 40 mg PO DAILY 5 Days Qty: 10 0RF No Action sucralfate 100 mg/mL suspension 10 ml PO BID Qty: 400 1RF latanoprost 0.005 % drops 1 drp ophthalmic (eye) BEDTIME cetirizine 10 mg tablet 1 tab PO QPM meloxicam 7.5 mg tablet 1 tab PO DAILY PRN (Reason: pain) tamsulosin 0.4 mg capsule 1 tab PO BEDTIME alprazolam 2 mg tablet 1 tab PO BID PRN (Reason: anxiety) albuterol sulfate 90 mcg/actuation HFA aerosol inhaler 2 puff inhalation Q4H PRN (Reason: Wheezing) fluticasone propionate 50 mcg/actuation spray,suspension 1 - 2 spray intranasal DAILY brimonidine 0.15 % drops 1 drp BID multivitamin with folic acid [Tab-A-Kelsie] 400 mcg tablet 1 tab PO DAILY naloxone [Narcan] 4 mg/actuation spray,non-aerosol 1 spray intranasal baclofen 10 mg tablet 10 mg PO BID Qty: 20 0RF Magic Mouthwash Diphen/Lido/Antacid 1:1:1 240 mL suspension 10 ml PO QID Qty: 240 0RF Rx Instructions: Lidocaine Viscous 2 % 80mL; diphenhydramine 12.5 mg/5 mL 80mL; aluminum-mag hydrox-simeth [id number]/5mL 80mL ibuprofen 800 mg tablet 800 mg PO Q8H PRN (Reason: pain) Qty: 14 0RF ketorolac 10 mg tablet 10 mg PO Q8H Qty: 14 0RF cyclobenzaprine 10 mg tablet 10 mg PO Q8H Qty: 14 0RF naproxen 500 mg tablet 500 mg PO BID PRN (Reason: pain) Qty: 30 0RF sucralfate 1 gram tablet 1 g PO BID Qty: 60 3RF Lantus Solostar U-100 Insulin 100 unit/mL (3 mL) insulin pen 80 unit subcut QPM atorvastatin [Lipitor] 40 mg tablet 40 mg PO BEDTIME losartan 100 mg tablet 100 mg PO DAILY montelukast [Singulair] 10 mg tablet 10 mg PO DAILY methadone 10 mg tablet 10 mg PO Q6-8H PRN (Reason: Pain) aspirin [Aspirin Childrens] 81 mg tablet,chewable 81 mg PO DAILY Calmoseptine 0.44-20.6 % ointment 1 applic topical QID PRN (Reason: skin irritation) Qty: 71 3RF duloxetine 60 mg capsule,delayed release(DR/EC) 60 mg PO DAILY hydrocortisone [Procto-Med HC] 2.5 % cream with perineal applicator 1 appl CA BID-QID PRN (Reason: hemorrhoids) Qty: 30 0RF zolpidem 10 mg tablet 10 mg PO BEDTIME PRN (Reason: insomnia) Ozempic 2 mg/dose (8 mg/3 mL) pen injector 2 mg subcut QWEEK dicyclomine 10 mg capsule 10 mg PO TID Qty: 30 0RF pantoprazole 40 mg tablet,delayed release (DR/EC) 40 mg PO BID (DME) FreeStyle Lite Strips Strip See Rx Instructions .ROUTE TID Qty: 10 Rx Instructions: As directed (DME) pen needle, diabetic [Comfort EZ Pen [place]] 33 gauge x 1/4 needle See Rx Instructions .ROUTE .MEDSUPPLY Qty: 100 Rx Instructions: As directed metformin 750 mg tablet extended release 24 hr 750 mg PO DAILY glipizide 5 mg tablet 5 mg PO BID tizanidine 4 mg tablet 4 mg PO TID magnesium oxide 400 mg (241.3 mg magnesium) tablet 400 mg PO DAILY testosterone enanthate 200 mg/mL oil 150 mg IM Q2W Benefiber Clear SF (dextrin) 3 gram/3.5 gram powder in packet 1 packet PO DAILY Qty: 28 3RF Rx Instructions: mix into at least 4 oz water or juice before administering Referrals: Vamshi Man MD [Primary Care Provider] - 2 days Stand Alone Forms: Work/School Release
[2022-10-02] MEDS: Ketorolac Tromethamine 15 MG/ML VIAL 30 MG IM (10:22)
== END 2022-10-02 10:35 | disposition home or self-care (01) ==
PROVIDERS: Emergency Provider Student in an Organized Health Care Education/Training Program; PCP Internal Medicine
DX: M79.671 Pain in right foot (principal); E11.9 Type 2 diabetes mellitus without complications; I10 Essential (primary) hypertension; Z87.891 Personal history of nicotine dependence; Z79.899 Other long term (current) drug therapy; Z79.4 Long term (current) use of insulin
CPT/HCPCS: 73630; 96372; 99284; J1885

== ENCOUNTER 2022-11-13 10:29 | Outpatient (AMB) | payer MEDICARE, MEDICAID, SELFPAY ==
--- NOTE | 2022-11-13 10:39 | MHC.OFFVIS ---
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 Patient reports he has foot surgery in 1993 where a plate and screw were placed. States he is currently having pain and difficulty walking. States he feels like pins and needles in his foot and at times he feels as if he might lose his balance. Has numbness and tingling that comes and goes in foot. Patient also complaining of knee pain. 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 He states he has pain, pins and needles sensation and intermittent numbness and tingling in his foot. His pain is aggravated with walking, in the mornings and during night. He also c/o experiencing as if his knee may give out. He has a history of foot surgery in 1993 where a plate and screw were placed. [facility] Medical History Asthma Bleeding hemorrhoids Diabetes mellitus Elevated cholesterol GERD (gastroesophageal reflux disease) HTN (hypertension) Surgical History History of carpal tunnel release History of colonoscopy History of esophagogastroduodenoscopy (EGD) History of neck surgery History of release of tendon History of sinus surgery History of tonsillectomy History of umbilical hernia repair Family History Mother History of colon cancer Brother History of liver cancer Maternal Aunt History of colon cancer Father No problems noted. Social History Household Members: None Alcohol intake: never Patient Tobacco Use Status: Former Tobacco user Quit Date: 20 years ago Review of Systems Const All systems reviewed & are unremarkable except as noted in HPI and below Physical Exam Vital Signs: BMI result Body Mass Index 34.0 Const General: cooperative, healthy appearing, comfortable, no acute distress, well developed and alert Orientation/consciousness: patient oriented x3 HEENT Head: Yes normal to inspection, Yes normocephalic and Yes atraumatic Eyes General: appearance normal, both eyes and all related structures Resp Effort & Inspection: normal respiratory effort and able to speak in complete sentences Cardio Rate: regular rate Peripheral pulses: Peripheral pulses 2+ throughout GI Palpation (GI): Soft to palpation Skin Lesions: no lesions Rashes: no rashes Neuro General: patient oriented x3 Extrem Other: Right foot: Normal to inspection. He does have a scar along the lateral aspect of the foot along the base of the 5th metatarsal with mild tenderness to palpation. There is no tenderness along the plantar fascia. NVI. Results Reviewed Results Reviewed: X-rays of the right foot obtained in the office today show orthopedic hardware in the 5th metatarsal with some joint collapse at the base of 5th metatarsal joint. Assessment & Plan Assessment & Plan (1) Osteoarthritis of right foot: Code(s): M19.071 - Primary osteoarthritis, right ankle and foot Plan We discussed options which include physical therapy and referral to ground services instructor. He is interested in the referral which I placed today. He will see us back as needed. Orders: Referrals Podiatry Referral M19.071 - Primary osteoarthritis, right ankle and foot Patient Instructions: Scribed for Luana Gama PA-C, by Rashawn Yu medical director of hospice, on 11/13/2022 at 10:30 AM EST. Luana Esquivel PA-C, have personally reviewed and agree with the information entered by the scribe. Coding Level of Care Code New Pt Level 3 (45544) Diagnoses Osteoarthritis of right foot M19.071
[2022-11-13 10:45] VITALS: BMI 34.0
== END 2022-11-13 11:16 | disposition home or self-care (01) ==
PROVIDERS: PCP Internal Medicine; Visit Provider Physician Assistant
DX: M19.071 Primary osteoarthritis, right ankle and foot (principal); T84.84XA Pain due to internal orthopedic prosthetic devices, implants and grafts, initial encounter
CPT/HCPCS: 99203

== ENCOUNTER → 2022-11-13 10:29 | Outpatient (BNVA) | payer MEDICARE, MEDICAID, SELFPAY | PROVIDERS: PCP Internal Medicine; Visit Provider Physician Assistant | DX: M19.071 Primary osteoarthritis, right ankle and foot (principal) | CPT/HCPCS: 99202 ==

== ENCOUNTER 2022-11-23 12:42 | Outpatient (AMB) | payer MEDICARE, MEDICAID, SELFPAY ==
--- NOTE | 2022-11-23 13:00 | MHC.OFFVIS ---
Intake Vital Signs 11/23/22 13:08 Height 6 ft 2 in Weight 265 lb BMI 34.0 Intake Visit Reasons: New Prob - Right knee pain Intake Note: Elissa a 57 year old male who presents today for an evaluation of right knee pain. Patient reports pain has been present for about a year. He has throbbing pain on the lateral aspect of knee that radiates down to his foot as well as numbness. Denies injury. No other tx. Finds very little relief with tylenol and motrin. Allergies Penicillins [PENICILLINS] Allergy (Unknown, Verified 11/23/22 13:09) RASH HPI New Prob - Right knee pain HPI Details 57-year-old male who presents to the office today with an medical interpreter for evaluation of right knee pain for about an year. He states he has throbbing pain and numbness in the lateral aspect of his knee which radiates down to his foot. His pain is aggravated with ambulation and stair use. He also c/o swelling at night. He denies sustaining any injury and has not had any treatment in the past. He finds minimal relief with Tylenol and Motrin. He has a history of diabetes. His sugar level was 120 this morning. [facility] Medical History Asthma Bleeding hemorrhoids Diabetes mellitus Elevated cholesterol GERD (gastroesophageal reflux disease) HTN (hypertension) Surgical History History of carpal tunnel release History of colonoscopy History of esophagogastroduodenoscopy (EGD) History of neck surgery History of release of tendon History of sinus surgery History of tonsillectomy History of umbilical hernia repair Family History Mother History of colon cancer Brother History of liver cancer Maternal Aunt History of colon cancer Father No problems noted. Social History Household Members: None Alcohol intake: never Patient Tobacco Use Status: Former Tobacco user Quit Date: 20 years ago Review of Systems Const All systems reviewed & are unremarkable except as noted in HPI and below Physical Exam Vital Signs: BMI result Body Mass Index 34.0 Extrem Other: Right knee: Skin intact, no erythema or joint effusion. Tenderness along the lateral joint line. Full ROM with crepitus. Negative Pearl?s. No ligamentous laxity. NVI. Office Procedures Joint Injection/Drain Joint Injection/Drain Primary Site: right knee Prep: site was prepped using aseptic technique, ethochloride spray was applied and injection warnings given Injected: 40 mg of, 80 mg of, DepoMedrol, with 8 mL of, 1% plain lidocaine and in the joint Approach Used: anterolateral Procedure: The patient tolerated the procedure well and there was some relief with the local anesthesia Coding 74434 - Glenohumeral/Tronchanteric Bursa/Intraarticular Procedure code (CPT) selection complete Results Reviewed Results Reviewed: 11/23/22 13:17 Lidocaine HCl 2 % MPF [Xylocaine 2 % MPF] 5 ml .ROUTE .STK-MED ONE methylPREDNISolone acetate [DEPO-MedroL] 40 mg .ROUTE .STK-MED ONE Xrays were obtained in the office today and personally reviewed by me of the right knee show mild oa with PF osteophyte formation Assessment & Plan Assessment & Plan (1) Osteoarthritis of right knee: Code(s): M17.11 - Unilateral primary osteoarthritis, right knee Plan We discussed options today which include steroid injection. They did consent to move forward with the injection, which was tolerated well. I recommended rest, ice and elevation and OTC anti-inflammatories PRN for discomfort. We also discussed their diabetes and the effect the steroid can have on their blood glucose levels; therefore, they will continue to monitor these very closely over the next 72 hours. If there are any concerns, they should report to the ED immediately. Orders: Orders XR knee RT 2V Today M25.569 - Pain in unspecified knee XR knee standing BI Today M25.561 - Pain in right knee, M25.562 - Pain in left knee PT Evaluation and Treatment Today M17.11 - Unilateral primary osteoarthritis, right knee Patient Instructions: Scribed for Luana Gama PA-C, by Rashawn Yu medical and scientific illustrator, on 11/23/2022 at 12:45 PM EST. Luana Esquivel PA-C, have personally reviewed and agree with the information entered by the scribe. Coding Level of Care Code Est Pt Level 3 (15715) Diagnoses Osteoarthritis of right knee M17.11 CPT Codes Coding - Joint 7: 79755 - Glenohumeral/Tronchanteric Bursa/Intraarticular ([id number])
[2022-11-23 13:08] VITALS: BMI 34.0
== END 2022-11-23 13:38 | disposition home or self-care (01) ==
PROVIDERS: PCP Internal Medicine; Visit Provider Physician Assistant
DX: M17.11 Unilateral primary osteoarthritis, right knee (principal)
CPT/HCPCS: 20610; 99213

== ENCOUNTER 2022-11-23 13:01 | Outpatient (REF) | payer MEDICARE, MEDICAID, SELFPAY ==
--- NOTE | ~2022-11-23 | XR_ITS ---
EXAMINATION: XR BILATERAL KNEES CLINICAL INFORMATION: Reason for Exam M25.561 - Pain in right knee COMPARISON: None TECHNIQUE: One views of the bilateral knees and 2 views of the right knee FINDINGS: RIGHT KNEE: No acute fracture or dislocation. Mild degenerative changes of the knee with small patellofemoral compartment osteophytes. No joint effusion. Soft tissues are unremarkable. LEFT KNEE: No acute fracture or dislocation on this limited single view. Joint spaces are maintained. Soft tissues are unremarkable. XR/XR knee standing BI IMPRESSION: * No acute osseous abnormality. * Mild degenerative changes of the right knee.
--- NOTE | ~2022-11-23 | XR_ITS ---
EXAMINATION: XR BILATERAL KNEES CLINICAL INFORMATION: Reason for Exam M25.561 - Pain in right knee COMPARISON: None TECHNIQUE: One views of the bilateral knees and 2 views of the right knee FINDINGS: RIGHT KNEE: No acute fracture or dislocation. Mild degenerative changes of the knee with small patellofemoral compartment osteophytes. No joint effusion. Soft tissues are unremarkable. LEFT KNEE: No acute fracture or dislocation on this limited single view. Joint spaces are maintained. Soft tissues are unremarkable. XR/XR knee RT 2V IMPRESSION: * No acute osseous abnormality. * Mild degenerative changes of the right knee.
== END 2022-11-23 13:02 | disposition home or self-care (01) ==
LOC: HO.HOSX 13:01
PROVIDERS: Visit Provider Physician Assistant
DX: M17.11 Unilateral primary osteoarthritis, right knee (principal)
CPT/HCPCS: 20610; 73560; 73565; 99212; J1020

== ENCOUNTER → 2022-11-27 09:59 | Outpatient (BNVA) | payer MEDICARE, MEDICAID, SELFPAY | PROVIDERS: PCP Internal Medicine; Visit Provider Physician Assistant ==

== ENCOUNTER 2022-12-11 09:21 | Outpatient (AMB) | payer MEDICARE, MEDICAID, SELFPAY ==
--- NOTE | 2022-12-11 09:29 | A.OFFVIS_ITS ---
Intake Vital Signs 12/11/22 09:31 Height 6 ft 2 in Weight 271 lb 2.697 oz BMI 34.8 BP 122/75 Blood Pressure Location Lt brachial Position Sitting Pulse 98 Intake Visit Reasons: 4 month follow up Intake Note: Elissa presents in the office as a 4 month follow up. CC: He has a EGD w/ Dil scheduled for next month. He states he is having issues - he vomits and he feels like the food is getting stuck and he also gets pains in his colon. 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: Yes Grain I Farmworker Name: Chidi [id number] Allergies Penicillins [PENICILLINS] Allergy (Unknown, Verified 12/11/22 09:29) RASH HPI 4 month follow up HPI Details A 57 y/o male follow up with dysphagia and early satiety RECAP: EGD with balloon dilation which helped his dysphagia He had rept EGD with dilation for recurrence of dysphagia 06/08 with savary 17 mm He is was also dx with rapid gastric emptying and urgency possibly from DM and medication effects US 08/2022-- elastography 1.6, steatosis, nml GB, no stones/sludge INTERIM: His swallowing is worse again, scheduled for EGD with dilation Dec he has nausea and vomiting, usu worse with pain and when he feels food getting stuck he is on ozempic for 2 yrs as well he has not been taking fiber supplement s as pharmacy never got script he is still taking methadone EXAM: GENERAL: The patient is well developed and nontoxic. VITAL SIGNS:see workflow HEENT: Nonicteric sclerae, PERRLA, EOMI. Oropharynx clear. Moist mucous membranes. Conjunctivae appear well perfused. No thyroid mass. CHEST: Chest wall is nontender. HEART: Regular rate and rhythm without murmurs. LUNGS: Clear to auscultation bilaterally. ABDOMEN: Soft, positive bowel sounds, nontender, no organomegaly. pos flank tenderness and left sided abdomen SKIN: No rash, no excessive bruising, petechiae, or purpura. NEUROLOGIC: Cranial nerves II-XII intact without motor/sensory deficit. Psych--nml MS; using walking stick, limping, tender para spinal muscles and lower spine ?A/P: 1/ Dysphagia, possibly related to medications, DM, methadone 2/ rapid gastric emptying 3/ left sided flank discomfort seems to be radicular from the spine PLAN: 1/ he is agreeable to repeat EGD, will do with 18 0r 19 mm--scheduled next month 2/ refer PT for back pain 3/ avoid triggers for his sx akash spicey foods and alcohol 4/ resent benefiber PFSH Medical History Asthma Bleeding hemorrhoids Diabetes mellitus Elevated cholesterol GERD (gastroesophageal reflux disease) HTN (hypertension) Surgical History History of carpal tunnel release History of colonoscopy History of esophagogastroduodenoscopy (EGD) History of neck surgery History of release of tendon History of sinus surgery History of tonsillectomy History of umbilical hernia repair Family History Mother History of colon cancer Brother History of liver cancer Maternal Aunt History of colon cancer Father No problems noted. Social History Household Members: None Alcohol intake: never Patient Tobacco Use Status: Former Tobacco user Quit Date: 20 years ago Physical Exam Vital Signs: Last Vital Signs Pulse 98 12/11/22 09:31 BP 122/75 12/11/22 09:31 BMI result Body Mass Index 34.8 Assessment & Plan Assessment & Plan (1) Back pain: Code(s): M54.9 - Dorsalgia, unspecified Orders: Orders PT Evaluation and Treatment Today M54.9 - Dorsalgia, unspecified Medications: Refilled wheat dextrin (Benefiber Clear Sugar Free(dextrin)) mix into at least 4 oz water or juice before administering 1 packet PO DAILY 28 ea 3RF Discontinued sucralfate Discontinued Reason: Doctor's Order 10 mL PO BID 400 mL 1RF ibuprofen Discontinued Reason: Patient Completed Course 800 mg PO Q8H PRN 14 tabs 0RF pain prednisone Discontinued Reason: Doctor's Order 40 mg (2 x 20 mg) PO DAILY 5 days 10 tabs 0RF sucralfate Discontinued Reason: Patient Completed Course 1 g PO BID 60 tabs 3RF Coding Level of Care Code Est Pt Level 3 (30906) Diagnoses Back pain M54.9
[2022-12-11 09:31] VITALS: BP 122/75; PULSE 98; BMI 34.8
== END 2022-12-11 09:57 | disposition home or self-care (01) ==
PROVIDERS: PCP Internal Medicine; Visit Provider Internal Medicine Gastroenterology
DX: M54.9 Dorsalgia, unspecified (principal)
CPT/HCPCS: 99213

== ENCOUNTER → 2022-12-11 09:21 | Outpatient (BNVA) | payer MEDICARE, MEDICAID, SELFPAY | PROVIDERS: PCP Internal Medicine; Visit Provider Internal Medicine Gastroenterology | DX: R13.10 Dysphagia, unspecified (principal); R68.81 Early satiety; M54.9 Dorsalgia, unspecified | CPT/HCPCS: 99212 ==

== ENCOUNTER 2022-12-26 08:30 | Day surgery (SDC) | payer MEDICARE, MEDICAID, SELFPAY ==
[2022-12-22 10:58] VITALS: BMI 34.8
[2022-12-22 11:18] VITALS: BMI 34.8
--- NOTE | 2022-12-25 09:25 | P.CONAN_ITS ---
Documented by User: Maylin Todd NP 12/25/22 09:27 HPI - Anesthesia Eval Consult details Narrative: 57yo M for Upper Endoscopy s/p EGD 05/2022 with [facility] Active Problems Active Problems: All Active Problems (Updated 11/23/22 @ 13:14 by Luana Gama PA-C) Osteoarthritis of right knee (Acute) Obesity (BMI 30.0-34.9) (Acute) Osteoarthritis of right foot (Acute) Left flank discomfort (Acute) History of esophageal dilatation (Acute) Upper abdominal pain (Acute) Constipation by delayed colonic transit (Acute) GERD (gastroesophageal reflux disease) (Acute) Dysphagia (Acute) Bleeding hemorrhoids (Acute) Diabetes mellitus (Acute) Asthma (Acute) Past Medical History Medical History GERD (gastroesophageal reflux disease) Elevated cholesterol HTN (hypertension) Bleeding hemorrhoids Diabetes mellitus Asthma Family History Family History Mother History of colon cancer Brother History of liver cancer Maternal Aunt History of colon cancer Father No problems noted. Family history of problems with anesthesia: No Surgical History Surgical History History of esophagogastroduodenoscopy (EGD) History of tonsillectomy History of sinus surgery History of neck surgery History of carpal tunnel release History of release of tendon History of umbilical hernia repair History of colonoscopy History of Problems with Anesthesia: No Social History Social History (Updated 12/26/22 @ 09:19 by Christine Enriquez MD) Household Members: None Are you a primary director of critical care to a significant other at home: No Do you presently have visiting nurse or other home services: No Alcohol intake: never Patient Tobacco Use Status: Former Tobacco user Quit Date: 2002 Tobacco use type: Cigarette Meds Allergies Allergy/AdvReac Type Severity Reaction Status Date / Time Penicillins [PENICILLINS] Allergy Unknown RASH Verified 12/11/22 09:29 Home Medications Medication Instructions Recorded Confirmed Last Taken Type aspirin 81 mg chewable tablet 81 mg PO DAILY 02/19/20 12/22/22 12/18/22 History (Aspirin Childrens) atorvastatin 40 mg tablet (Lipitor) 40 mg PO BEDTIME 02/19/20 12/22/22 Unknown History insulin glargine 100 unit/mL (3 80 unit subcut QPM 02/19/20 12/22/22 Unknown History mL) subcutaneous pen (Lantus Solostar U-100 Insulin) losartan 100 mg tablet 100 mg PO DAILY 02/19/20 12/22/22 Unknown History methadone 10 mg tablet 10 mg PO TID PRN Pain 02/19/20 12/22/22 12/26/22 History montelukast 10 mg tablet 10 mg PO DAILY 02/19/20 12/22/22 Unknown History (Singulair) duloxetine 60 mg capsule,delayed 60 mg PO DAILY 09/10/20 12/22/22 Unknown History release semaglutide 2 mg/dose (8 mg/3 mL) 2 mg subcut QWEEK 08/12/21 12/22/22 12/21/22 History subcutaneous pen injector (Ozempic) zolpidem 10 mg tablet 10 mg PO BEDTIME PRN insomnia 08/12/21 12/22/22 Unknown History albuterol sulfate 90 mcg/actuation 2 puff inhalation Q4H PRN Wheezing 10/27/21 12/22/22 Unknown History aerosol inhaler alprazolam 2 mg tablet 1 tab PO BID PRN anxiety 10/27/21 06/06/22 Unknown History brimonidine 0.15 % eye drops 1 drp BID 10/27/21 06/06/22 Unknown History cetirizine 10 mg tablet 1 tab PO QPM 10/27/21 12/22/22 Unknown History latanoprost 0.005 % eye drops 1 drp ophthalmic (eye) BEDTIME 10/27/21 12/22/22 Unknown History multivitamin with folic acid 400 1 tab PO DAILY 10/27/21 06/06/22 Unknown History mcg tablet (Tab-A-Kelsie) naloxone 4 mg/actuation nasal 1 spray intranasal 10/27/21 02/13/22 Unknown History spray (Narcan) tamsulosin 0.4 mg capsule 1 tab PO BEDTIME 10/27/21 06/06/22 Unknown History blood sugar diagnostic (FreeStyle #10 ea 07/10/22 Unknown History Lite Strips) glipizide 5 mg tablet 5 mg PO BID 07/10/22 12/22/22 Unknown History magnesium oxide 400 mg (241.3 mg 400 mg PO DAILY 07/10/22 12/22/22 Unknown History magnesium) tablet metformin 750 mg tablet,extended 750 mg PO DAILY 07/10/22 12/22/22 Unknown History release 24 hr pantoprazole 40 mg tablet,delayed 40 mg PO BID 07/10/22 12/22/22 Unknown History release pen needle, diabetic 33 gauge x #100 ea 07/10/22 Unknown History 1/4 (Comfort EZ Pen [place]) testosterone enanthate 200 mg/mL 150 mg IM Q2W 07/10/22 Unknown History intramuscular oil tizanidine 4 mg tablet 4 mg PO TID PRN Pain 07/10/22 12/22/22 Unknown History bupropion HCl 300 mg 24 hr tablet, 300 mg PO DAILY 12/11/22 12/22/22 Unknown History extended release fluticasone propionate 110 2 puff inhalation BID 12/11/22 12/22/22 Unknown History mcg/actuation HFA aerosol inhaler (Flovent HFA) ketorolac 0.4 % eye drops drp ophthalmic (eye) 12/11/22 Unknown History linaclotide 290 mcg capsule 290 mcg PO DAILY PRN Constipation 12/11/22 12/22/22 Unknown History (Linzess) pen needle, diabetic 31 gauge x #1,200 ea 12/11/22 Unknown History 5/16 (UltiCare Pen Needle) prazosin 5 mg capsule mg PO 12/11/22 Unknown History cyclobenzaprine 10 mg tablet 10 mg PO Q8H PRN Spasms 12/22/22 12/22/22 Unknown History Exam Exam Date and Time: December 25, 2022 0925 Height,Weight and Vital Signs: Height 6 ft 2 in Weight 122.924 kg Assessment and Plan Assessment Anesthesia Assessment: Chart Reviewed Final Anesthetic Review Family History of Problems with Anesthesia: No History of Problems with Anesthesia: No Documented by User: Christine Enriquez MD 12/26/22 09:19 HPI - Anesthesia Eval Consult details Narrative: 57yo M for Upper Endoscopy s/p EGD 05/2022 with MAC. 300mg prop, 40 lidocaine PMFSH Active Problems Active Problems: All Active Problems (Updated 12/26/22 @ 08:51 by Christine Enriquez MD) Osteoarthritis of right knee (Acute) Obesity (BMI 30.0-34.9) (Acute) Osteoarthritis of right foot (Acute) Left flank discomfort (Acute) History of esophageal dilatation (Acute) Upper abdominal pain (Acute) Constipation by delayed colonic transit (Acute) GERD (gastroesophageal reflux disease) (Acute) Dysphagia (Acute) Bleeding hemorrhoids (Acute) Diabetes mellitus (Acute) Asthma (Acute). Stable. Inhaler prn DHARA. Not using CPAP. Could not tolerate Past Medical History Medical History GERD (gastroesophageal reflux disease) Elevated cholesterol HTN (hypertension) Bleeding hemorrhoids Diabetes mellitus Asthma Family History Family History Mother History of colon cancer Brother History of liver cancer Maternal Aunt History of colon cancer Father No problems noted. Surgical History Surgical History History of esophagogastroduodenoscopy (EGD) History of tonsillectomy History of sinus surgery History of neck surgery History of carpal tunnel release History of release of tendon History of umbilical hernia repair History of colonoscopy Social History Social History (Updated 12/26/22 @ 09:19 by Christine Enriquez MD) Household Members: None Are you a primary director of critical care to a significant other at home: No Do you presently have visiting nurse or other home services: No Alcohol intake: never Patient Tobacco Use Status: Former Tobacco user Quit Date: 2002 Tobacco use type: Cigarette Meds Allergies Allergy/AdvReac Type Severity Reaction Status Date / Time Penicillins [PENICILLINS] Allergy Unknown RASH Verified 12/11/22 09:29 Home Medications Medication Instructions Recorded Confirmed Last Taken Type aspirin 81 mg chewable tablet 81 mg PO DAILY 02/19/20 12/22/22 12/18/22 History (Aspirin Childrens) atorvastatin 40 mg tablet (Lipitor) 40 mg PO BEDTIME 02/19/20 12/22/22 Unknown History insulin glargine 100 unit/mL (3 80 unit subcut QPM 02/19/20 12/22/22 Unknown History mL) subcutaneous pen (Lantus Solostar U-100 Insulin) losartan 100 mg tablet 100 mg PO DAILY 02/19/20 12/22/22 Unknown History methadone 10 mg tablet 10 mg PO TID PRN Pain 02/19/20 12/22/22 12/26/22 History montelukast 10 mg tablet 10 mg PO DAILY 02/19/20 12/22/22 Unknown History (Singulair) duloxetine 60 mg capsule,delayed 60 mg PO DAILY 09/10/20 12/22/22 Unknown History release semaglutide 2 mg/dose (8 mg/3 mL) 2 mg subcut QWEEK 08/12/21 12/22/22 12/21/22 History subcutaneous pen injector (Ozempic) zolpidem 10 mg tablet 10 mg PO BEDTIME PRN insomnia 08/12/21 12/22/22 Unknown History albuterol sulfate 90 mcg/actuation 2 puff inhalation Q4H PRN Wheezing 10/27/21 12/22/22 Unknown History aerosol inhaler alprazolam 2 mg tablet 1 tab PO BID PRN anxiety 10/27/21 06/06/22 Unknown History brimonidine 0.15 % eye drops 1 drp BID 10/27/21 06/06/22 Unknown History cetirizine 10 mg tablet 1 tab PO QPM 10/27/21 12/22/22 Unknown History latanoprost 0.005 % eye drops 1 drp ophthalmic (eye) BEDTIME 10/27/21 12/22/22 Unknown History multivitamin with folic acid 400 1 tab PO DAILY 10/27/21 06/06/22 Unknown History mcg tablet (Tab-A-Kelsie) naloxone 4 mg/actuation nasal 1 spray intranasal 10/27/21 02/13/22 Unknown History spray (Narcan) tamsulosin 0.4 mg capsule 1 tab PO BEDTIME 10/27/21 06/06/22 Unknown History blood sugar diagnostic (Bob #10 ea 07/10/22 Unknown History Lite Strips) glipizide 5 mg tablet 5 mg PO BID 07/10/22 12/22/22 Unknown History magnesium oxide 400 mg (241.3 mg 400 mg PO DAILY 07/10/22 12/22/22 Unknown History magnesium) tablet metformin 750 mg tablet,extended 750 mg PO DAILY 07/10/22 12/22/22 Unknown History release 24 hr pantoprazole 40 mg tablet,delayed 40 mg PO BID 07/10/22 12/22/22 Unknown History release pen needle, diabetic 33 gauge x #100 ea 07/10/22 Unknown History 1/4 (Comfort EZ Pen [place]) testosterone enanthate 200 mg/mL 150 mg IM Q2W 07/10/22 Unknown History intramuscular oil tizanidine 4 mg tablet 4 mg PO TID PRN Pain 07/10/22 12/22/22 Unknown History bupropion HCl 300 mg 24 hr tablet, 300 mg PO DAILY 12/11/22 12/22/22 Unknown History extended release fluticasone propionate 110 2 puff inhalation BID 12/11/22 12/22/22 Unknown History mcg/actuation HFA aerosol inhaler (Flovent HFA) ketorolac 0.4 % eye drops drp ophthalmic (eye) 12/11/22 Unknown History linaclotide 290 mcg capsule 290 mcg PO DAILY PRN Constipation 12/11/22 12/22/22 Unknown History (Linzess) pen needle, diabetic 31 gauge x #1,200 ea 12/11/22 Unknown History 5/16 (UltiCare Pen Needle) prazosin 5 mg capsule mg PO 12/11/22 Unknown History cyclobenzaprine 10 mg tablet 10 mg PO Q8H PRN Spasms 12/22/22 12/22/22 Unknown History Exam Height,Weight and Vital Signs: Height 6 ft 2 in Weight 122.924 kg Vital Signs Temp Pulse Resp BP Pulse Ox O2 Del Method 12/26/22 08:33 98 F 100 18 122/78 98 Room Air Pertinent Lab Results Pertinent Lab Results: Lab Results 12/26/22 Range/Units 08:39 POC Glucose 144 H (60-115) mg/dL Airway Mallampati Class: II TM Dist: >3cm Neck ROM: Full (But neck pain. H/o cervical surgery. Only very occasional UE numbness. Usually secondary to staying in same position for prolonged periods ) Loose/Missing/Broken Teeth: No (Denies broken, loose, missing teeth) Heart: RRR Lungs: CTAB Assessment and Plan Assessment Anesthesia Assessment: Anesthesia Plan Discussed Final Anesthetic Review NPO: Yes ASA Class: III Final Preanesthetic Review: No Changes in Pt Med Stat, Meds/Allgs Chart Reviewed, Consent Obtained/Reviewed and Anes Risks/Benef Reviewed Patient Risk: Intermediate Procedure Risk: Low Assessment/Block/Sedation in SS: Assess/Block/Sedation-SS Anesthetic Plan Anesthetic Plan: MAC: Disposition: Standard PACU
[2022-12-26 08:33] VITALS: BP 122/78; PULSE 100; RESP 18; TEMP 36.6; O2SAT 98
[2022-12-26 08:46] LABS: Glucose, Whole Blood 144 mg/dL (60-115)
[2022-12-26] MEDS: Lactated Ringers 1,000 ML 100 ML IVCONT (09:00)
--- NOTE | 2022-12-26 09:08 | MHC.SHP ---
Pre-Procedural Eval Section A Date of Service: 12/26/22 The patient is an INPATIENT: No The History & Physical has been completed within 30 days and I have reviewed it.: Yes Section B Chief Complaint: Unspecified abdominal pain Allergies: Allergies Allergy/AdvReac Type Severity Reaction Status Date / Time Penicillins [PENICILLINS] Allergy Unknown RASH Verified 12/11/22 09:29 Plan Diagnosis/Plan: Unchanged I have reviewed the history and physical and performed a pertinent physical examination on my patient. No changes have occurred unless specified. Time Spent With Patient Time: Total time managing care of this patient today ____ minutes.
--- NOTE | 2022-12-26 09:09 | W.PM.OPN ---
Operative Note Operative Note Date of Service: 12/26/22 Narrative: Procedure Description: EGD Indication: dysphagia Anesthesia: MAC FLEXIBLE TRANSORAL UPPER GASTROINTESTINAL ENDOSCOPY UPPER ENDOSCOPY Consent: Indications for the procedure and potential complications of bleeding, perforation, reaction to medications and missed diagnosis were discussed with the patient and informed consent was obtained. Instrument: Olympus GIF H 190 J mid size upper endoscope Monitoring: Vital signs and clinical assessment, continuous EKG monitoring, Pulse oximetry, Carbon Dioxide monitoring and blood pressure monitoring were done throughout the procedure. Procedure: The patient was placed in the left lateral decubitis position and pre-procedure medications were administered and a bite block was placed. The endoscope was inserted into the mouth and advanced under direct vision to the third part of duodenum. A careful inspection was made as the upper endoscope was withdrawn including a retroflexed examination of the proximal stomach; Findings and interventions are described below. Findings: Larynx:normal Esophagus: GE junction at 40? cm, diaphragm hiatus at 40 cm, irregular Z line, bx taken to r/o Barretts, ballon dilation of lower esophagus and upper esophagus to 20 mm, no tears seen Stomach: Normal mucosa with few fundic gland polyps seen. Grade 2 flap valve on retroflexed examination of the cardia. Duodenum: normal Intervention: Biopsies as noted above, balloon dilation Impression/Findings: fundic gland polyps possible barretts PLAN: cont with PPI rept dilation prn Impression/Findings: [] PLAN: []
[2022-12-26 09:45] VITALS: BP 127/86; PULSE 98; RESP 16; TEMP 36.1; O2SAT 97
[2022-12-26 10:00] VITALS: BP 124/94; PULSE 88; RESP 16; O2SAT 96
[2022-12-26 10:15] VITALS: BP 129/87; PULSE 91; RESP 16; TEMP 36.1; O2SAT 96
== END 2022-12-26 10:57 | disposition home or self-care (01) ==
PROVIDERS: PCP Internal Medicine; Visit Provider Internal Medicine Gastroenterology
PROC: 0DJ08ZZ Inspection of Upper Intestinal Tract, Via Natural or Artificial Opening Endoscopic (ICD-10-PCS; CPT 43235; principal; 2022-12-26 10:00)
DX: K31.7 Polyp of stomach and duodenum (principal); K22.9 Disease of esophagus, unspecified; R13.10 Dysphagia, unspecified; R68.81 Early satiety; K59.01 Slow transit constipation; K21.9 Gastro-esophageal reflux disease without esophagitis; M54.9 Dorsalgia, unspecified; E11.9 Type 2 diabetes mellitus without complications; E78.5 Hyperlipidemia, unspecified; J45.909 Unspecified asthma, uncomplicated; F11.20 Opioid dependence, uncomplicated; E66.9 Obesity, unspecified; Z68.34 Body mass index [BMI] 34.0-34.9, adult; Z79.4 Long term (current) use of insulin; Z79.899 Other long term (current) drug therapy; Z87.891 Personal history of nicotine dependence
CPT/HCPCS: 43239; 43249; 82947; 88305; C1726

== ENCOUNTER → 2022-12-26 08:30 | Outpatient (BNV) | payer MEDICARE, MEDICAID, SELFPAY | PROVIDERS: PCP Internal Medicine; Visit Provider Internal Medicine Gastroenterology | DX: R13.10 Dysphagia, unspecified (principal); K20.90 Esophagitis, unspecified without bleeding | CPT/HCPCS: 43249 ==

== ENCOUNTER 2023-01-04 09:00 | Outpatient (RCR) | payer MEDICARE, MEDICAID, SELFPAY ==
--- NOTE | 2022-12-25 10:55 | MHC.PT.EP ---
[facility] [place] [facility] [place] [facility] [place] [address] Bib Navarrete [address] [phone] F: [phone] F: [phone] F: [phone] F: [phone] Physical Therapy Plan of Care Date of Evaluation: 12/25/22 Date of Surgery: Diagnosis: OA OF RIGHT KNEE Assessment: 57 YO MALE REF TO PT FOR Rt KNEE OA, PROGRESSIVE x 1 YEAR - HE HAS A H/O DIABETES AND YRS AGO ORIF Rt 5TH METATARSAL. HE AMB W A CANE AND NOTES HE HAS DIFFIC W TRANSITIONAL MVMTS, STAIR NAVIGATION, PROLONGED STANDING, AND BENDING. HE STATED HIS Rt KNEE PAIN IS WORSE AT NIGHT. THE Pt HAS LIMITED AME HIP AND HS FLEXIBILITY, (+) LUMBOPELVIC ASYMMETRY, DECR PROX LEs STRENGTH, AND FLUCTUATING PATELLAR PAIN IN Rt > Lt KNEE. THE Pt WOULD EBENFIT FROM PT TO ADDRESS THE ABOVE FINDINGS-> EASE TISSUE TENSION, ACTIVATE GLUTES, DEV HEP , IMPROVE FUNCTIONAL MOBILITY TOLERANCE. Frequency and Duration: The patient will be seen 2 x WK x 5 WKS Short Term Goals: *IMPROVE AME HIP/ HS FLEXIBILITY *INITIATE HEP FOR AME LEs AND LUMBOPELVIC STAB *DECREASE Rt KNEE PAIN IMPROVE BODY MECH W ADLs Paper Machine Backtender Goals: *INDEP HEP AND SX MGMT TECHN *Pt IMPROVE ADL PERF AND INITIATE FITNESS WALKING/ HEP EVIDENT W IMPROVED LEFI (44/80) *IMPROVE LEs STRENGTH BY 1/2 TO 1 GRADE *Pt DEMON INDEP FUNCTIONAL SQUAT AND EFFICIENT GAIT [facility] Treatment Plan: Modalities to reduce pain, spasms and effusion. Manual therapy to restore motion and function. Therapeutic exercise to improve strength and flexibility. Neuromuscular re-education for posture and balance. Therapeutic activities to return to functional activities of daily living. Electronically signed by: PETTY MUNOZ,PT Please sign and return to therapist. Thank you for your referral.
--- NOTE | 2023-02-14 10:40 | MHC.PT.DC ---
[facility] [place] Office [place] Office [place] Office [address] [facility] [phone] F: [phone] F: [phone] F: [phone] F: [phone] Physical Therapy Discharge Report Diagnosis: OA OF RIGHT KNEE Date of Surgery: Date of Evaluation: 12/25/22 Date of Discharge: 02/14/23 Treatments to Date: 3 Cancellations to Date: 4 No Shows to Date: 0 Discharge Status: Improved Function Patient Elected to Stop Visit Non-compliance Discharge Summary: THE Pt WAS BENEFITTING FROM PT FOR HER Rt KNEE OA, HOWEVER, SHE EXACERBATED HER LBP/ SCIATICA SXS , WHICH IMPACTED HER ACTIVITY AND EXER TOLERANCE. SHE CANCELLED HER LAST FEW APPTS, THEREFORE, A FORMAL REASSESSMENT WAS NOT PERFORMED. Electronically signed by: PETTY MENCHACA,PT Please sign and return to therapist. Thank you for your referral.
== END 2023-02-14 10:41 | disposition home or self-care (01) ==
LOC: HO.PT 09:00
PROVIDERS: PCP Internal Medicine; Visit Provider Physician Assistant
DX: M17.11 Unilateral primary osteoarthritis, right knee (principal)
CPT/HCPCS: 97110; 97140; 97161; 97530

== ENCOUNTER 2023-01-09 08:57 | Outpatient (AMB) | payer MEDICARE, MEDICAID, SELFPAY ==
[2023-01-09 09:27] VITALS: BMI 34.8
--- NOTE | 2023-01-09 09:27 | MHC.AMNUTRGE ---
Intake VS Expanded 01/09/23 09:27 01/12/23 09:36 Height 6 ft 2 in 6 ft 2 in Weight 270 lb 15.17 oz 271 lb BMI 34.8 34.8 Intake Visit Reasons: weight loss and DM Allergies Penicillins [PENICILLINS] Allergy (Unknown, Verified 12/11/22 09:29) RASH HPI Nutrition Presentation Details Pt presents for MNT for DM and obesity. The Pt was referred by Dr. Brooklynn Sexton, line maintainer section Pt reports needing review on DM meal planning and weight loss. Pt also c/o of intolerance to some foods (lactose , and certain flavors or consistencies Pt reports meal consist of B: cereal with water (varies in cereals, low sugar cereals mostly or farina, oatmeal ), drinks juice or coffee, L: skips or may have a fritter D: rice/beans/chicken no veg, water or juice reports not eating after 6 pm Reports needing to increase fiber, does not include high fiber foods and dislikes flavored fiber supplement Pt reports taking lantus 80-90 units/day , Metformin 750 once. glipizide 5 mg twice a day , Ozempic 2 mg/d Pt did not bring glucometer to this appt, reports sometimes having symptoms similar to hypoglycemia which he treats by having juice Dr. Man [address] [place] [address] in [facility] [id number] Equation Height 6 ft 2 in Weight 271 lb Resting Metabolic Rate 2127.32 Calculated Activity Level Sedentary Calories Needed to Maintain Weight 2552.78 Diagnosis Nutrition problem #1 food nutri know defi As related to (etiology) #1 diagnosis As evidenced by (sign/symptom) #1 knowledge deficit of diet Monitoring/Goals Nutrition problem monitoring HgbA1c, total PRO intake and total CHO intake Learning/Education Readiness to learn fair Stages of change preparation Educational materials provided Yes (meal planning 2500 tonny ) Most Recent Diabetes Results: No Data to Display REPLACED BY [facility] Medical History GERD (gastroesophageal reflux disease) Elevated cholesterol HTN (hypertension) Bleeding hemorrhoids Diabetes mellitus Asthma Surgical History History of esophagogastroduodenoscopy (EGD) History of tonsillectomy History of sinus surgery History of neck surgery History of carpal tunnel release History of release of tendon History of umbilical hernia repair History of colonoscopy Family History Mother History of colon cancer Brother History of liver cancer Maternal Aunt History of colon cancer Father No problems noted. Social History (Updated 12/26/22 @ 09:19 by Christine Enriquez MD) Household Members: None Are you a primary career technical education teacher to a significant other at home: No Do you presently have visiting nurse or other home services: No Alcohol intake: never Patient Tobacco Use Status: Former Tobacco user Quit Date: 2002 Tobacco use type: Cigarette Assessment & Plan Assessment & Plan (1) Diabetes mellitus: Code(s): E11.9 - Type 2 diabetes mellitus without complications Plan: wt: 123 kg Est kcal needs as per MSJ: 2500 (40% carb, 30% protein/fat) Est fluid needs as per 30 ml/d: 3700 Est prot per day as per 1 g/kg bw: 123 Recommend fiber intake : 8-10 g per day and gradually increase to 25-28 g per day for women and 35-38 g for men or as tolerated Recommend sodium intake per day : less than 2000 mg Educated patient on: ( R = reviewed V = verbalizes understanding N/R = needs review N/A = not applicable Food sources of carbohydrate, adequate serving sizes and its role in various health conditions: R Differences between complex carbohydrates a simple carbohydrates, role of fiber in diet: R Differences between types of fats and role in diet (mono on saturated fat fatty acids, saturated fatty acids, trans fats): R basic Food sources of sodium in salt and healthy modifications for heart health in kidney health: R V R/V Vitamins and minerals: R V R/V Healthy plate method concept: R V R/V Physical activity: Benefits a precaution: R V R/V Hypoglycemia protocol (rule of 15): R V R/V Dietary prevention of Hyperglycemia: R V R/V (2) Obesity (BMI 30.0-34.9): Code(s): E66.9 - Obesity, unspecified Patient Instructions: Choose unflavored fiber supplement if unable to tolerate flavored sugar free fiber supplement Choose a meal replacement plant based (avoiding dairy as per statements of vomiting after consuming dairy) at lunch time PCP: May Recommend prescribing freestyle jose juan 3 sesor with reader to monitor blood sugar , Pt is on insulin and reports having episodes of hypoglycemia Coding Level of Care Code Nutr Indiv Intake (73071) Diagnoses Diabetes mellitus E11.9 Obesity (BMI 30.0-34.9) E66.9 Time Spent (min) 30
[2023-01-12 09:36] VITALS: BMI 34.8
== END 2023-01-09 10:11 | disposition home or self-care (01) ==
PROVIDERS: PCP Internal Medicine; Visit Provider Dietitian, Registered
DX: E11.9 Type 2 diabetes mellitus without complications (principal); E66.9 Obesity, unspecified

== ENCOUNTER → 2023-01-09 08:57 | Outpatient (BNVA) | payer MEDICARE, MEDICAID, SELFPAY | PROVIDERS: PCP Internal Medicine; Visit Provider Dietitian, Registered | DX: E66.9 Obesity, unspecified (principal); E11.9 Type 2 diabetes mellitus without complications; Z68.34 Body mass index [BMI] 34.0-34.9, adult | CPT/HCPCS: 97802 ==

== ENCOUNTER 2023-01-25 09:47 | Outpatient (AMB) | payer MEDICARE, MEDICAID, SELFPAY ==
[2023-01-25 10:05] VITALS: BMI 34.8
--- NOTE | 2023-01-25 10:05 | MHC.OFFVIS ---
Intake Vital Signs 01/25/23 10:05 Height 6 ft 2 in Weight 271 lb BMI 34.8 Intake Visit Reasons: OV-Right knee pain Intake Note: Elissa a 57 year old male who presents today for an evaluation of right knee pain, last injection 12/11/22. Patient reports little relief with last injection. He attended PT however this made his pain worse. He states now having pain in his whole right side as well as back pain. Text Transcriber Name: Fred ID#[id number] Allergies Penicillins [PENICILLINS] Allergy (Unknown, Verified 01/25/23 10:17) RASH HPI OV-Right knee pain HPI Details 57-year-old male who returns to the office today for a follow-up of right knee pain. He had his last injection on 12/11/22 which provide him mild relief. His pain is aggravated with ambulation, stair use and at night. He had undergone physical therapy which worsened his pain. He states he has pain in his whole right side and back pain as well. He finds minimal relief with Motrin and Tylenol. [facility] Medical History GERD (gastroesophageal reflux disease) Elevated cholesterol HTN (hypertension) Bleeding hemorrhoids Diabetes mellitus Asthma Surgical History H/O foot surgery History of esophagogastroduodenoscopy (EGD) History of tonsillectomy History of sinus surgery History of neck surgery History of carpal tunnel release History of release of tendon History of umbilical hernia repair History of colonoscopy Family History Mother History of colon cancer Brother History of liver cancer Maternal Aunt History of colon cancer Father No problems noted. Social History Household Members: None Are you a primary wound care coordinator to a significant other at home: No Do you presently have visiting nurse or other home services: No Alcohol intake: never Patient Tobacco Use Status: Former Tobacco user Quit Date: 2002 Tobacco use type: Cigarette Review of Systems Const All systems reviewed & are unremarkable except as noted in HPI and below Physical Exam Vital Signs: BMI result Body Mass Index 34.8 Extrem Other: Right knee: Skin intact, no erythema or joint effusion. Tenderness along the lateral joint line. Full ROM with crepitus. Negative Pearl?s. No ligamentous laxity. NVI. Assessment & Plan Assessment & Plan (1) Osteoarthritis of right knee: Code(s): M17.11 - Unilateral primary osteoarthritis, right knee Qualifiers: Osteoarthritis type: primary Qualified Code(s): M17.11 - Unilateral primary osteoarthritis, right knee Plan An MRI of right knee has been ordered to further evaluate integrity of meniscus. He was given a prescription of Celebrex to take twice a day for 2 weeks. He will see back in 1 month for right knee steroid injection as he is leaving on vacation in the middle of February. Orders: Orders MR knee RT wo con Today M17.11 - Unilateral primary osteoarthritis, right knee Medications: New celecoxib (Celebrex) 200 mg PO BID 60 caps 3RF 30 days Patient Instructions: Scribed for Luana Gama PA-C, by Rashawn Yu medical observer, on 01/25/2023 at 10:15 AM MELLISA. Luana Esquivel PA-C, have personally reviewed and agree with the information entered by the scribe. Coding Level of Care Code Est Pt Level 3 (24006) Diagnoses Primary osteoarthritis of right knee M17.11 Osteoarthritis type: primary
== END 2023-01-25 10:34 | disposition home or self-care (01) ==
PROVIDERS: PCP Internal Medicine; Visit Provider Physician Assistant
DX: M17.11 Unilateral primary osteoarthritis, right knee (principal)
CPT/HCPCS: 99214

== ENCOUNTER → 2023-01-25 09:47 | Outpatient (BNVA) | payer MEDICARE, MEDICAID, SELFPAY | PROVIDERS: PCP Internal Medicine; Visit Provider Physician Assistant | DX: M17.11 Unilateral primary osteoarthritis, right knee (principal) | CPT/HCPCS: 99212 ==

== ENCOUNTER 2023-02-02 08:54 | Emergency (ER) | payer MEDICARE, MEDICAID, SELFPAY ==
--- NOTE | ~2023-02-02 | CT_ITS ---
EXAMINATION: CT ABDOMEN AND PELVIS WITHOUT CONTRAST CLINICAL INFORMATION: Left lower quadrant pain. COMPARISON: 05/13/2022 TECHNIQUE: Multidetector volumetric imaging was performed from the superior aspect of the liver through the pubic symphysis. Sagittal and coronal reformatted images were obtained on the technologist's workstation. This CT examination was performed using dose optimization techniques as appropriate, variously including the following: *Automated exposure control *Adjustment of mA and/or kV according to patient size (this includes techniques or standardized protocols for targeted exams where dose is matched to indication/reason for exam; i.e. extremities or head) *Use of iterative reconstruction technique DLP: 814 mGy-cm FINDINGS: LUNG BASES: The visualized lung bases are unremarkable. LIVER, GALLBLADDER, AND BILIARY TREE: The liver is decreased in attenuation. No focal hepatic lesion or biliary ductal dilatation is present. The gallbladder is unremarkable with no evidence of radiopaque gallstones, gallbladder wall thickening, or obvious pericholecystic inflammatory changes. PANCREAS: Unremarkable. SPLEEN: Unremarkable. ADRENAL GLANDS: Unremarkable. KIDNEYS AND URETERS: The kidneys are normal in size, shape, and attenuation. 1.6 cm right renal cyst. No further follow-up is needed. No hydronephrosis. Nonspecific perinephric stranding. BLADDER: Unremarkable. GASTROINTESTINAL TRACT: Diverticular disease of the colon. Appendix is within normal limits. No small bowel obstruction ABDOMINAL WALL: Surgical mesh from prior umbilical hernia repair. LYMPH NODES: No bulky abdominal or pelvic lymphadenopathy. VASCULAR: Normal caliber abdominal aorta. PELVIC VISCERA: Enlarged prostate gland. OSSEOUS STRUCTURES: No destructive bone lesions. CT/CT abdomen pelvis wo IV con IMPRESSION: No acute abnormality in the abdomen or pelvis. Hepatic steatosis.
[2023-02-02 09:03] VITALS: BP 133/79; PULSE 100; RESP 19; TEMP 36.6; O2SAT 98; BMI 34.2
[2023-02-02 09:22] LABS: MANUAL DIFF FLAG NO
[2023-02-02 09:27] LABS: Basophils Percent Auto 0.5 % (0-2); Eosinophils Percent Auto 0.5 % (0-4); Imm Gran Abs Auto 0.02 X10*3/uL (0.00-0.03); Imm Gran Pct Auto 0.2 % (0.0-0.4); Lymphocytes Absolute Auto 1.7 X10*3/uL (1.2-4.9); Lymphocytes Percent Auto 19.6 % (20-40); Mean Corpuscular HGB Conc 33.3 g/dl (31.0-36.0); Mean Corpuscular Hemoglobin 27.7 pg (27.0-33.0); Mean Corpuscular Volume 83.2 fL (80.0-98.0); Monocytes Absolute Auto 0.9 X10*3/uL (0.1-1.2); Monocytes Percent Auto 10.1 % (2-11); Neutrophils Percent Auto 69.1 % (45-73); Platelet Count 221 X10*3/uL (160-400); Red Blood Count 5.41 X10*6/uL (4.60-5.80); Red Cell Distribution Width 12.8 % (11.0-16.0); White Blood Count 8.7 X10*3/uL (4.8-10.8)
[2023-02-02 09:27] LABS: Appearance Urine Clear; Color Urine Yellow; Glucose Urine UA 100 mg/dL (Negative); Leukocyte Esterase Urine Negative (Negative); Nitrite Urine Negative (Negative); Specific Gravity - Urine 1.015 (1.005-1.025); Urine Blood Negative (Negative); Urine Ketones Negative (Negative); Urine Protein Negative (Neg-Trace)
--- NOTE | 2023-02-02 09:37 | ED_ITS ---
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 He reports ongoing nausea with 1 episode of vomiting this morning. No diarrhea or constipation. Pain is worse in both locations with food. No fever, chills, urinary symptoms or known sick contacts. MD elicited complaint: abdominal pain Pertinent past history: constipation Onset (ago): day(s) (4) Pain Consistency: constant Location: epigastric and LLQ Severity: moderate Quality: stabbing Migration to: no migration Exacerbating factors: eating Relieving factors: nothing Associated symptoms: nausea and vomiting Related Data Home Medications Medication Instructions Recorded Confirmed aspirin 81 mg chewable tablet 81 mg PO DAILY 02/19/20 12/22/22 (Aspirin Childrens) atorvastatin 40 mg tablet (Lipitor) 40 mg PO BEDTIME 02/19/20 12/22/22 insulin glargine 100 unit/mL (3 80 unit subcut QPM 02/19/20 12/22/22 mL) subcutaneous pen (Lantus Solostar U-100 Insulin) losartan 100 mg tablet 100 mg PO DAILY 02/19/20 12/22/22 methadone 10 mg tablet 10 mg PO TID PRN Pain 02/19/20 12/22/22 montelukast 10 mg tablet 10 mg PO DAILY 02/19/20 12/22/22 (Singulair) duloxetine 60 mg capsule,delayed 60 mg PO DAILY 09/10/20 12/22/22 release semaglutide 2 mg/dose (8 mg/3 mL) 2 mg subcut QWEEK 08/12/21 12/22/22 subcutaneous pen injector (Ozempic) zolpidem 10 mg tablet 10 mg PO BEDTIME PRN insomnia 08/12/21 12/22/22 albuterol sulfate 90 mcg/actuation 2 puff inhalation Q4H PRN Wheezing 10/27/21 12/22/22 aerosol inhaler alprazolam 2 mg tablet 1 tab PO BID PRN anxiety 10/27/21 06/06/22 brimonidine 0.15 % eye drops 1 drp BID 10/27/21 06/06/22 cetirizine 10 mg tablet 1 tab PO QPM 10/27/21 12/22/22 latanoprost 0.005 % eye drops 1 drp ophthalmic (eye) BEDTIME 10/27/21 12/22/22 multivitamin with folic acid 400 1 tab PO DAILY 10/27/21 06/06/22 mcg tablet (Tab-A-Kelsie) naloxone 4 mg/actuation nasal 1 spray intranasal 10/27/21 02/13/22 spray (Narcan) tamsulosin 0.4 mg capsule 1 tab PO BEDTIME 10/27/21 06/06/22 blood sugar diagnostic (FreeStyle #10 ea 07/10/22 Lite Strips) glipizide 5 mg tablet 5 mg PO BID 07/10/22 12/22/22 magnesium oxide 400 mg (241.3 mg 400 mg PO DAILY 07/10/22 12/22/22 magnesium) tablet metformin 750 mg tablet,extended 750 mg PO DAILY 07/10/22 12/22/22 release 24 hr pantoprazole 40 mg tablet,delayed 40 mg PO BID 07/10/22 12/22/22 release pen needle, diabetic 33 gauge x #100 ea 07/10/2204/19 (Comfort EZ Pen [place]) testosterone enanthate 200 mg/mL 150 mg IM Q2W 07/10/22 intramuscular oil tizanidine 4 mg tablet 4 mg PO TID PRN Pain 07/10/22 12/22/22 bupropion HCl 300 mg 24 hr tablet, 300 mg PO DAILY 12/11/22 12/22/22 extended release fluticasone propionate 110 2 puff inhalation BID 12/11/22 12/22/22 mcg/actuation HFA aerosol inhaler (Flovent HFA) ketorolac 0.4 % eye drops drp ophthalmic (eye) 12/11/22 linaclotide 290 mcg capsule 290 mcg PO DAILY PRN Constipation 12/11/22 12/22/22 (Linzess) pen needle, diabetic 31 gauge x #1,200 ea 12/11/22 5/16 (UltiCare Pen Needle) prazosin 5 mg capsule mg PO 12/11/22 cyclobenzaprine 10 mg tablet 10 mg PO Q8H PRN Spasms 12/22/22 12/22/22 levocetirizine 5 mg tablet 5 mg PO DAILY 01/25/23 metoprolol succinate 25 mg 25 mg PO DAILY 01/25/23 tablet,extended release 24 hr spironolactone 25 mg tablet 25 mg PO DAILY 01/25/23 Previous Rx's Medication Instructions Recorded hydrocortisone 2.5 % topical cream 1 appl FL BID-QID PRN hemorrhoids 07/09/20 with perineal applicator #30 grams (Procto-Med HC) baclofen 10 mg tablet 10 mg PO BID #20 tabs 04/03/22 dicyclomine 10 mg capsule 10 mg PO TID #30 caps 07/10/22 naproxen 500 mg tablet 500 mg PO BID PRN pain #30 tabs 09/17/22 ketorolac 10 mg tablet 10 mg PO TID PRN pain 5 days #15 10/02/22 tabs wheat dextrin 3 gram/3.5 gram oral 1 packet PO DAILY #28 ea 12/11/22 powder packet (Benefiber Clear Sugar Free(dextrin)) celecoxib 200 mg capsule (Celebrex) 200 mg PO BID 30 days #60 caps 01/25/23 ondansetron 4 mg disintegrating 4 mg PO Q8H PRN nausea and 02/02/23 tablet vomiting 3 days #10 tabs sucralfate 1 gram tablet (Carafate) 1 g PO AC #60 tabs 02/02/23 Allergies Allergy/AdvReac Type Severity Reaction Status Date / Time Penicillins [PENICILLINS] Allergy Unknown RASH Verified 02/02/23 09:03 Review of Systems Review of Systems Yes all other systems are reviewed and are negative [facility] Past Medical History Medical History GERD (gastroesophageal reflux disease) Elevated cholesterol HTN (hypertension) Bleeding hemorrhoids Diabetes mellitus Asthma Surgical History H/O foot surgery History of esophagogastroduodenoscopy (EGD) History of tonsillectomy History of sinus surgery History of neck surgery History of carpal tunnel release History of release of tendon History of umbilical hernia repair History of colonoscopy Family History Family History Mother History of colon cancer Brother History of liver cancer Maternal Aunt History of colon cancer Father No problems noted. Social History Social History Household Members: None Are you a primary home care associate to a significant other at home: No Do you presently have visiting nurse or other home services: No Alcohol intake: never Patient Tobacco Use Status: Former Tobacco user Quit Date: 2002 Tobacco use type: Cigarette Smoked in Last 30 Days: No Use of substances other than those prescribed or required for medical reasons: No Advance Directives: No Advance Directives Information Provided: Yes Physical Exam ED Vital Signs: Vital Signs - 24 hr 02/02/23 09:03 Temperature 97.8 F Pulse Rate 100 Respiratory Rate 19 Blood Pressure 133/79 Pulse Oximetry 98 Oxygen Delivery Method Room Air BMI result Body Mass Index 34.2 Appearance: Alert. Oriented X3. No acute distress. Head: normocephalic, atraumatic. Eyes: Pupils equal, round and reactive to light. ENT: Pharynx normal. No tonsillar swelling or exudate. Neck: Normal inspection. Neck supple. CVS: Normal heart rate and rhythm. Pulses normal. Respiratory: No respiratory distress. Breath sounds normal. Abdomen: Obese, Soft with mild epigastric tenderenss, moderate LLQ tenderness w/ guarding, no rebound, normal active +BS x4 Skin: Skin warm and dry. Normal skin color. Normal skin turgor. No rashes. Extremities: No lower extremity edema. No joint swelling. Neuro/psych: Oriented X 3. No motor deficit. No sensory deficit. CN II-XII intact. Normal speech and cognition. Medical Decision Making Medical Decision Making MDM Narrative: 57 yo male with history of obesity, GERD, DM, asthma, dysphagia, constipation, anxiety who presents to the ER from home c/o 4 days of LLQ pain and epigastric abdominal pain along w/ N/V x1 today. Exam w/ tenderness of LLQ. No leukocytosis on labs. Lipsae normal. CT scan abd/pelvis ordered for further evaluation which showed no acute findings. Pain improved with PPI and zofran. Epigastic pain most likely due to gastritis vs gerd. he is on PPI BID. will start carafate and have him f/u with PCP and GI. stable for d/c home. return precautions discussed Differential Diagnosis Differential Diagnoses: The differential diagnosis associated with the presentation includes diverticulitis, abscess, gastritis, GERD, PUD, gastroenteritis, doubt ACS Admission/Observation Consideration of admission/observation: Escalation of care including admission/observation considered Lab Data MDM Lab Attestation statement: I reviewed the patient's lab results. no leukocytosis or anemia, normal LFTs and lipase 02/02/23 09:14 02/02/23 09:14 Labs: Lab Results 02/02/23 02/02/23 Range/Units 09:11 09:14 WBC 8.7 (4.8-10.8) X10*3/uL RBC 5.41 (4.60-5.80) X10*6/uL Hgb 15.0 (14.0-18.0) g/dl Hct 45.0 (42.0-52.0) % MCV 83.2 (80.0-98.0) fL MCH 27.7 (27.0-33.0) pg MCHC 33.3 (31.0-36.0) g/dl RDW 12.8 (11.0-16.0) % Plt Count 221 (160-400) X10*3/uL MPV 9.0 L (9.4-12.4) fL Immature Gran % (Auto) 0.2 (0.0-0.4) % Neut % (Auto) 69.1 (45-73) % Lymph % (Auto) 19.6 L (20-40) % [place] % (Auto) 10.1 (2-11) % Eos % (Auto) 0.5 (0-4) % Baso % (Auto) 0.5 (0-2) % Lymph # (Auto) 1.7 (1.2-4.9) X10*3/uL [place] # (Auto) 0.9 (0.1-1.2) X10*3/uL Eos # (Auto) 0.0 (0.0-0.4) X10*3/uL Baso # (Auto) 0.0 (0.0-0.2) X10*3/uL Abs Immat Gran (auto) 0.02 (0.00-0.03) X10*3/uL Absolute Neuts (auto) 6.0 (2.0-8.3) x10*3/uL Absolute Nucleated RBC 0.000 (0.0-0.012) X10*3/uL Nucleated RBC % (auto) 0.0 (0.0-0.2) /100WBC Sodium 135 (135-145) mmol/L Potassium 4.2 (3.3-5.1) mmol/L Chloride 105 (96-108) mmol/L Carbon Dioxide 23 (22-29) mmol/L Anion Gap 11 L (12-20) BUN 15 (9-16) mg/dL Creatinine 0.95 (0.5-1.4) mg/dL Estim Creat Clear Calc 118.5 Estimated GFR > 60 Random Glucose 160 H (60-115) mg/dL Calcium 9.6 (8.4-10.2) mg/dL Total Bilirubin 0.7 (0.0-1.0) mg/dL Direct Bilirubin 0.3 (0.0-0.5) mg/dL AST 30 (5-37) U/L ALT 43 H (0-40) U/L Alkaline Phosphatase 67 (39-117) U/L Total Protein 7.3 (6.5-8.0) g/dL Albumin 4.4 (3.5-5.0) g/dL Lipase 25 (8-78) U/L Urine Color Yellow Urine Appearance Clear Urine pH 6.0 (5.0-9.0) Ur Specific [place] 1.015 (1.005-1.025) Urine Protein Negative (Neg-Trace) mg/dL Urine Glucose (UA) 100 H (Negative) mg/dL Urine Ketones Negative (Negative) mg/dL Urine Blood Negative (Negative) Urine Nitrite Negative (Negative) Ur Leukocyte Esterase Negative (Negative) Independent Interpretation I performed an independent interpretation of an: CT Scan Interpretation: no evidence of bowel obstruction, no pericolonic stranding or visible abscess in LLQ. agree w/ radiology read Radiology Impression Discussion of test interpretation with radiology: I have reviewed the radiologist's reading. Radiologist Impression: EXAMINATION: CT ABDOMEN AND PELVIS WITHOUT CONTRAST CLINICAL INFORMATION: Left lower quadrant pain. COMPARISON: 05/13/2022 TECHNIQUE: Multidetector volumetric imaging was performed from the superior aspect of the liver through the pubic symphysis. Sagittal and coronal reformatted images were obtained on the technologist's workstation. This CT examination was performed using dose optimization techniques as appropriate, variously including the following: *Automated exposure control *Adjustment of mA and/or kV according to patient size (this includes techniques or standardized protocols for targeted exams where dose is matched to indication/reason for exam; i.e. extremities or head) *Use of iterative reconstruction technique DLP: 814 mGy-cm FINDINGS: LUNG BASES: The visualized lung bases are unremarkable. LIVER, GALLBLADDER, AND BILIARY TREE: The liver is decreased in attenuation. No focal hepatic lesion or biliary ductal dilatation is present. The gallbladder is unremarkable with no evidence of radiopaque gallstones, gallbladder wall thickening, or obvious pericholecystic inflammatory changes. PANCREAS: Unremarkable. SPLEEN: Unremarkable. ADRENAL GLANDS: Unremarkable. KIDNEYS AND URETERS: The kidneys are normal in size, shape, and attenuation. 1.6 cm right renal cyst. No further follow-up is needed. No hydronephrosis. Nonspecific perinephric stranding. BLADDER: Unremarkable. GASTROINTESTINAL TRACT: Diverticular disease of the colon. Appendix is within normal limits. No small bowel obstruction ABDOMINAL WALL: Surgical mesh from prior umbilical hernia repair. LYMPH NODES: No bulky abdominal or pelvic lymphadenopathy. VASCULAR: Normal caliber abdominal aorta. PELVIC VISCERA: Enlarged prostate gland. OSSEOUS STRUCTURES: No destructive bone lesions. CT/CT abdomen pelvis wo IV con IMPRESSION: No acute abnormality in the abdomen or pelvis. Hepatic steatosis. Independent Historian Clinical information obtained from an independent historian. History obtained from or confirmed by: Spouse External Record Review External record reviewed: Outpatient record, Prior outpatient labs and Prior outpatient radiology Prescription Management I considered prescription management with: Pain Medication and Antibiotic Chronic Conditions Patient?s care impacted by: Diabetes and Other (GERD) Medications Administered Discontinued Medications Generic Name Dose Route Start Last Admin Trade Name Freq PRN Reason Stop Dose Admin Omeprazole 40 mg 02/02/23 09:46 02/02/23 10:16 Omeprazole 40 Mg Capsule.Dr PO 02/02/23 09:47 40 mg ONCE ONE Administration Ondansetron HCl 4 mg 02/02/23 09:46 02/02/23 10:16 Ondansetron Odt 4 Mg Tab.Rapdis TRANSLINGU 02/02/23 09:47 4 mg ONCE ONE Administration Critical Care Time Critical Care Time Critical Care Time: No Discharge Plan Discharge Clinical Impression: Abdominal pain Qualifiers: Abdominal location: left lower quadrant Qualified Code(s): R10.32 - Left lower quadrant pain Patient Disposition: Home, Self-Care Instructions: Gastritis (DC), Abdominal Pain (ED) Additional Instructions: Your lab workup & CT scan today were unremarkable. Your pain is most likely due to gastritis which is and irritation and inflammation of your stomach lining. Start taking the prescribed medication as directed for this. Stick to a bland diet. Avoid foods high in acid, avoid alcohol and NSAID medications like Aleve, Motrin, Advil or ibuprofen. Take the prescribed medication before meals to help with pain. Follow up with your doctor as needed. Follow up with GI doctor if you symptoms persist despite dietary modifications and medication. If you develop new or worsening symptoms call 911 or come back to the ER for further evaluation. Petersen an?lisis de laboratorio y tomograf?a computarizada de hoy no fueron extraordinarios. Lo m?s probable es que petersen dolor se deba a la gastritis, que es kenneth irritaci?n e inflamaci?n del revestimiento del est?paco. Comience a nikita el medicamento recetado seg?n las indicaciones. Siga kenneth dieta blanda. Evite los alimentos con alto contenido de ?cido, evite el alcohol y los medicamentos ANDI weston Aleve, Motrin, Advil o ibuprofeno. [place] el medicamento recetado antes de las comidas para aliviar el dolor. Sydnie un seguimiento con petersen m?dico seg?n sea necesario. Sydnie un seguimiento con petersen m?dico gastrointestinal si petrona s?ntomas persisten a pesar de las modificaciones en la dieta y la medicaci?n. Si desarrolla s?ntomas nuevos o que empeoran, llame al 911 o regrese a la reina de emergencias para kenneth evaluaci?n adicional. Prescriptions: New sucralfate [Carafate] 1 gram tablet 1 g PO AC Qty: 60 0RF ondansetron 4 mg tablet,disintegrating 4 mg PO Q8H PRN (Reason: nausea and vomiting) 3 Days Qty: 10 0RF No Action latanoprost 0.005 % drops 1 drp ophthalmic (eye) BEDTIME cetirizine 10 mg tablet 1 tab PO QPM tamsulosin 0.4 mg capsule 1 tab PO BEDTIME alprazolam 2 mg tablet 1 tab PO BID PRN (Reason: anxiety) albuterol sulfate 90 mcg/actuation HFA aerosol inhaler 2 puff inhalation Q4H PRN (Reason: Wheezing) brimonidine 0.15 % drops 1 drp BID multivitamin with folic acid [Tab-A-Kelsie] 400 mcg tablet 1 tab PO DAILY naloxone [Narcan] 4 mg/actuation spray,non-aerosol 1 spray intranasal baclofen 10 mg tablet 10 mg PO BID Qty: 20 0RF cyclobenzaprine 10 mg tablet 10 mg PO Q8H PRN (Reason: Spasms) naproxen 500 mg tablet 500 mg PO BID PRN (Reason: pain) Qty: 30 0RF ketorolac 10 mg tablet 10 mg PO TID PRN (Reason: pain) 5 Days Qty: 15 0RF Lantus Solostar U-100 Insulin 100 unit/mL (3 mL) insulin pen 80 unit subcut QPM atorvastatin [Lipitor] 40 mg tablet 40 mg PO BEDTIME losartan 100 mg tablet 100 mg PO DAILY montelukast [Singulair] 10 mg tablet 10 mg PO DAILY methadone 10 mg tablet 10 mg PO TID PRN (Reason: Pain) aspirin [Aspirin Childrens] 81 mg tablet,chewable 81 mg PO DAILY duloxetine 60 mg capsule,delayed release(DR/EC) 60 mg PO DAILY hydrocortisone [Procto-Med HC] 2.5 % cream with perineal applicator 1 appl FL BID-QID PRN (Reason: hemorrhoids) Qty: 30 0RF zolpidem 10 mg tablet 10 mg PO BEDTIME PRN (Reason: insomnia) Ozempic 2 mg/dose (8 mg/3 mL) pen injector 2 mg subcut QWEEK dicyclomine 10 mg capsule 10 mg PO TID Qty: 30 0RF pantoprazole 40 mg tablet,delayed release (DR/EC) 40 mg PO BID (DME) FreeStyle Lite Strips Strip See Rx Instructions .ROUTE TID Qty: 10 Rx Instructions: As directed (DME) pen needle, diabetic [Comfort EZ Pen [place]] 33 gauge x 1/4 needle See Rx Instructions .ROUTE .MEDSUPPLY Qty: 100 Rx Instructions: As directed metformin 750 mg tablet extended release 24 hr 750 mg PO DAILY glipizide 5 mg tablet 5 mg PO BID tizanidine 4 mg tablet 4 mg PO TID PRN (Reason: Pain) magnesium oxide 400 mg (241.3 mg magnesium) tablet 400 mg PO DAILY testosterone enanthate 200 mg/mL oil 150 mg IM Q2W (DME) pen needle, diabetic [UltiCare Pen Needle] 31 gauge x 5/16 needle See Rx Instructions .ROUTE .MEDSUPPLY Qty: 1200 Rx Instructions: As directed fluticasone propionate [Flovent HFA] 110 mcg/actuation HFA aerosol inhaler 2 puff inhalation BID bupropion HCl 300 mg tablet extended release 24 hr 300 mg PO DAILY ketorolac 0.4 % drops ophthalmic (eye) prazosin 5 mg capsule PO Linzess 290 mcg capsule 290 mcg PO DAILY PRN (Reason: Constipation) Benefiber Clear SF (dextrin) 3 gram/3.5 gram powder in packet 1 packet PO DAILY Qty: 28 3RF Rx Instructions: mix into at least 4 oz water or juice before administering levocetirizine 5 mg tablet 5 mg PO DAILY spironolactone 25 mg tablet 25 mg PO DAILY metoprolol succinate 25 mg tablet extended release 24 hr 25 mg PO DAILY celecoxib [Celebrex] 200 mg capsule 200 mg PO BID 30 Days Qty: 60 3RF Referrals: Vamshi Man MD [Primary Care Provider] - Print Language: Macedonian
[2023-02-02 09:43] LABS: Alanine Aminotransferase 43 U/L (0-40); Albumin Level 4.4 g/dL (3.5-5.0); Alkaline Phosphatase 67 U/L (39-117); Anion Gap 11 (12-20); Aspartate Amino Transferase 30 U/L (5-37); Bilirubin Direct 0.3 mg/dL (0.0-0.5); Bilirubin Total 0.7 mg/dL (0.0-1.0); Blood Urea Nitrogen 15 mg/dL (9-16); Calcium 9.6 mg/dL (8.4-10.2); Carbon Dioxide 23 mmol/L (22-29); Chloride 105 mmol/L (96-108); Creatinine Clr Calc Pharmacy 118.5; Estimated Glomerular Filt Rate > 60; Glucose Random 160 mg/dL (60-115); Lipase 25 U/L (8-78); Potassium 4.2 mmol/L (3.3-5.1); Sodium 135 mmol/L (135-145); Total Protein 7.3 g/dL (6.5-8.0)
[2023-02-02] MEDS: Ondansetron ODT 4 MG TAB.RAPDIS TRANSLINGU (10:16)
[2023-02-02] MEDS: Omeprazole 40 MG CAPSULE.DR PO (10:16)
== END 2023-02-02 11:49 | disposition home or self-care (01) ==
PROVIDERS: Emergency Provider Emergency Medicine; PCP Internal Medicine
DX: R10.13 Epigastric pain (principal); R10.32 Left lower quadrant pain; R11.2 Nausea with vomiting, unspecified; Z79.899 Other long term (current) drug therapy
CPT/HCPCS: 36415; 74176; 80048; 80076; 81003; 83690; 85025; 99284

== ENCOUNTER 2023-02-21 13:54 | Outpatient (AMB) | payer MEDICARE, MEDICAID, SELFPAY ==
[2023-02-21 14:01] VITALS: BMI 34.1
--- NOTE | 2023-02-21 14:01 | A.OFFVIS_ITS ---
Intake Vital Signs 3 02/21/23 14:01 Height 6 ft 2 in Weight 266 lb BMI 34.1 Intake Visit Reasons: OV-Right knee pain Intake Note: Elissa 57 yr old male presents today for his MRI review of his right knee. States he would like to discuss an injection as well. Allergies Penicillins [PENICILLINS] Allergy (Unknown, Verified 02/21/23 14:03) RASH HPI OV-Right knee pain 2 HPI0 Details 57-year-old male who returns to the [facility] today for an MRI review of right knee. He states he is taking the celebrex which does help but he continues to have some discomfort around the patella with WB activity. He has a history of diabetes. His sugar level is well controlled. [facility] Medical History GERD (gastroesophageal reflux disease) Elevated cholesterol HTN (hypertension) Bleeding hemorrhoids Diabetes mellitus Asthma Surgical History H/O foot surgery History of esophagogastroduodenoscopy (EGD) History of tonsillectomy History of sinus surgery History of neck surgery History of carpal tunnel release History of release of tendon History of umbilical hernia repair History of colonoscopy Family History Mother History of colon cancer Brother History of liver cancer Maternal Aunt History of colon cancer Father No problems noted. Social History Household Members: None Are you a primary out of school hours care worker to a significant other at home: No Do you presently have visiting nurse or other home services: No Alcohol intake: never Patient Tobacco Use Status: Former Tobacco user Quit Date: 2002 Tobacco use type: Cigarette Review of Systems Const All systems reviewed & are unremarkable except as noted in HPI and below Physical Exam Vital Signs: BMI result Body Mass Index 34.1 Extrem Other: Right knee: Skin intact, no erythema or joint effusion. Retropatellar tenderness present. Full ROM with crepitus. Negative Pearl?s. No ligamentous laxity. NVI. Office Procedures Joint Injection/Drain Joint Injection/Drain Primary Site: right knee Prep: site was prepped using aseptic technique, ethochloride spray was applied and injection warnings given Injected: 40 mg of, DepoMedrol, with 8 mL of, 1% plain lidocaine and in the joint Approach Used: anterolateral Procedure: The patient tolerated the procedure well and there was some relief with the local anesthesia Coding 37577 - Glenohumeral/Tronchanteric Bursa/Intraarticular Procedure code (CPT) selection complete Results Reviewed Results Reviewed: 02/21/23 14:02 Lidocaine HCl 2 % MPF [Xylocaine 2 % MPF] 5 ml .ROUTE .STK-MED ONE methylPREDNISolone acetate [DEPO-MedroL] 80 mg .ROUTE .STK-MED ONE 02/21/23 14:16 Lidocaine HCl 2 % MPF [Xylocaine 2 % MPF] 5 ml .ROUTE .STK-MED ONE methylPREDNISolone acetate [DEPO-MedroL] 40 mg .ROUTE .STK-MED ONE Omit the 80mg depo MRI RIGHT KNEE Assessment & Plan Assessment & Plan (1) Osteoarthritis of right knee: Code(s): M17.11 - Unilateral primary osteoarthritis, right knee Qualifiers: Osteoarthritis type: primary Qualified Code(s): M17.11 - Unilateral primary osteoarthritis, right knee Plan We discussed options today which include steroid injection. They did consent to move forward with the right knee injection, which was tolerated well. I recommended rest, ice and elevation and OTC anti-inflammatories PRN for discomfort. We also discussed their diabetes and the effect the steroid can have on their blood glucose levels; therefore, they will continue to monitor these very closely over the next 72 hours. If there are any concerns, they should report to the ED immediately. Patient Instructions: Scribed for Luana Gama PA-C, by Rashawn Yu medical office coordinator, on 02/21/2023 at 2:30 PM EST. Luana Esquivel PA-C, have personally reviewed and agree with the information entered by the scribe. Coding Level of Care Code Est Pt Level 3 (24129) Diagnoses Primary osteoarthritis of right knee M17.11 Osteoarthritis type: primary CPT Codes Coding - Joint 7: 56626 - Glenohumeral/Tronchanteric Bursa/Intraarticular ([id number])
== END 2023-02-21 14:33 | disposition home or self-care (01) ==
PROVIDERS: PCP Internal Medicine; Visit Provider Physician Assistant
DX: M17.11 Unilateral primary osteoarthritis, right knee (principal)
CPT/HCPCS: 20610; 99213

== ENCOUNTER → 2023-02-21 13:54 | Outpatient (BNVA) | payer MEDICARE, MEDICAID, SELFPAY | PROVIDERS: PCP Internal Medicine; Visit Provider Physician Assistant | DX: M17.11 Unilateral primary osteoarthritis, right knee (principal) | CPT/HCPCS: 20610; 99212; J1020 ==

== ENCOUNTER 2023-04-03 08:58 | Outpatient (AMB) | payer MEDICARE, MEDICAID, SELFPAY ==
[2023-04-03 09:05] VITALS: BMI 34.8
--- NOTE | 2023-04-03 09:05 | A.OFFVIS_ITS ---
Intake VS Expanded 04/03/23 09:05 Height 6 ft 2 in Weight 271 lb 6.224 oz BMI 34.8 Intake Visit Reasons: T2DM/CONFIRMED Allergies Penicillins [PENICILLINS] Allergy (Unknown, Verified 02/21/23 14:03) RASH Medication List - Last Reconciled 04/11/[address], LDN albuterol sulfate 90 mcg/actuation 2 puffs inhalation Q4H PRN alprazolam 1 tab PO BID PRN aspirin (Aspirin Childrens) 81 mg PO DAILY atorvastatin (Lipitor) 40 mg PO BEDTIME baclofen 10 mg PO BID blood sugar diagnostic (FreeStyle Lite Strips) As directed bupropion HCl 300 mg PO DAILY carvedilol 6.25 mg PO BID celecoxib (Celebrex) 200 mg PO BID 30 days cyclobenzaprine 10 mg PO Q8H PRN dicyclomine 10 mg PO TID duloxetine 60 mg PO DAILY fluticasone propionate 110 mcg/actuation (Flovent HFA) 2 puffs inhalation BID glipizide 5 mg PO BID hydrocortisone 2.5% (Procto-Med HC) 1 appl NM BID-QID PRN insulin glargine U-300 conc (Toujeo Max U-300 SoloStar) 60 units subcut DAILY ketorolac 10 mg PO TID PRN 5 days ketorolac 0.4% drps ophthalmic (eye) latanoprost 0.005% 1 drp ophthalmic (eye) BEDTIME levocetirizine 5 mg PO DAILY linaclotide (Linzess) 290 mcg PO DAILY PRN liraglutide (Victoza 3-Deejay) 1.8 mg subcut Q24H magnesium oxide 400 mg PO DAILY metformin ER 750 mg PO DAILY methadone 10 mg PO TID PRN montelukast (Singulair) 10 mg PO DAILY multivitamin with folic acid 400 mcg (Tab-A-Kelsie) 1 tab PO DAILY naloxone 4 mg/actuation (Narcan) 1 spray intranasal naproxen 500 mg PO BID PRN ondansetron 4 mg PO Q8H PRN 3 days pantoprazole 40 mg PO BID pen needle, diabetic (UltiCare Pen Needle) As directed pen needle, diabetic (Comfort EZ Pen [place]) As directed prazosin mg PO sacubitril-valsartan 49-51 mg (Entresto) 1 tab PO BID spironolactone 25 mg PO DAILY sucralfate (Carafate) 1 g PO AC tamsulosin 1 tab PO BEDTIME testosterone enanthate 150 mg IM Q2W tizanidine 4 mg PO TID PRN wheat dextrin (Benefiber Clear Sugar Free(dextrin)) 1 packet PO DAILY zolpidem 10 mg PO BEDTIME PRN HPI Nutrition Presentation Details Pt presents for MNT follow up for T2DM Pt reports understanding relationship of food/carbohydrate to BG level Pt verbalizes having elevated BG when including pastries in large amount in his diet Food frequency fruits: 1-2/d veg: not including nonstarchy veg prot: poultry/beef/eggs, not including fish seed/nuts: yes dairy: 3-4 serving/d fried foods 3-4 x/wk pastries and the like : daily Most Recent Diabetes Results: Creatinine 0.95 mg/dL (0.5-1.4) 02/02/23 Blood Urea Nitrogen 15 mg/dL (9-16) 02/02/23 Sodium 135 mmol/L (135-145) 02/02/23 Potassium 4.2 mmol/L (3.3-5.1) 02/02/23 Chloride 105 mmol/L (96-108) 02/02/23 Carbon Dioxide 23 mmol/L (22-29) 02/02/23 Calcium 9.6 mg/dL (8.4-10.2) 02/02/23 AST 30 U/L (5-37) 02/02/23 ALT 43 U/L (0-40) H 02/02/23 Total Protein 7.3 g/dL (6.5-8.0) 02/02/23 Albumin 4.4 g/dL (3.5-5.0) 02/02/23 [facility] Medical History GERD (gastroesophageal reflux disease) Elevated cholesterol HTN (hypertension) Bleeding hemorrhoids Diabetes mellitus Asthma Surgical History H/O foot surgery History of esophagogastroduodenoscopy (EGD) History of tonsillectomy History of sinus surgery History of neck surgery History of carpal tunnel release History of release of tendon History of umbilical hernia repair History of colonoscopy Family History Mother History of colon cancer Brother History of liver cancer Maternal Aunt History of colon cancer Father No problems noted. Social History Household Members: None Are you a primary pet caregiver to a significant other at home: No Do you presently have visiting nurse or other home services: No Alcohol intake: never Patient Tobacco Use Status: Former Tobacco user Quit Date: 2002 Tobacco use type: Cigarette Assessment & Plan Assessment & Plan (1) Diabetes mellitus: Code(s): E11.9 - Type 2 diabetes mellitus without complications Plan: wt: 123 kg Est kcal needs as per MSJ: 2500 (40% carb, 30% protein/fat) Est fluid needs as per 30 ml/d: 3700 Est prot per day as per 1 g/kg bw: 123 Recommend fiber intake : 8-10 g per day and gradually increase to 25-28 g per day for women and 35-38 g for men or as tolerated Recommend sodium intake per day : less than 2000 mg Educated patient on: ( R = reviewed V = verbalizes understanding N/R = needs review N/A = not applicable * Food sources of carbohydrate, adequate serving sizes and its role in various health conditions: R * Differences between complex carbohydrates a simple carbohydrates, role of fiber in diet: R * Differences between types of fats and role in diet (mono on saturated fat fatty acids, saturated fatty acids, trans fats): R basic * Food sources of sodium in salt and healthy modifications for heart health in kidney health: R * Vitamins and minerals: NR * Healthy plate method concept: R * Physical activity: Benefits a precaution: R * Hypoglycemia protocol (rule of 15): R V - rule of 15 * Dietary prevention of Hyperglycemia: R V (2) Obesity (BMI 30.0-34.9): Code(s): E66.9 - Obesity, unspecified Plan: Reduce pastries to 1-3 x/week, reducing on total carb to 30 g as snack (low in sugar)- read food labels Patient Instructions: Choose foods high in fiber, aim at 18g/day Reduce pastries and similar foods, read food labels, limit snacks to 2 a day reducing on total carb/low in sugar to 30 g carb and 1-2 oz of lean protein Coding Level of Care Code Nutr Indiv Subseq (41186) Diagnoses Diabetes mellitus E11.9 Obesity (BMI 30.0-34.9) E66.9 Time Spent (min) 30
== END 2023-04-03 09:47 | disposition home or self-care (01) ==
PROVIDERS: PCP Internal Medicine; Visit Provider Dietitian, Registered
DX: E11.9 Type 2 diabetes mellitus without complications (principal); E66.9 Obesity, unspecified

== ENCOUNTER → 2023-04-03 08:58 | Outpatient (BNVA) | payer MEDICARE, MEDICAID, SELFPAY | PROVIDERS: PCP Internal Medicine; Visit Provider Dietitian, Registered | DX: E11.9 Type 2 diabetes mellitus without complications (principal); E66.9 Obesity, unspecified; Z68.34 Body mass index [BMI] 34.0-34.9, adult | CPT/HCPCS: 97803 ==

== ENCOUNTER 2023-04-21 08:30 | Emergency (ER) | payer MEDICARE, MEDICAID, SELFPAY ==
[2023-04-21 08:48] VITALS: BP 127/84; PULSE 94; RESP 18; TEMP 36.8; O2SAT 98; BMI 34.4
--- NOTE | 2023-04-21 09:38 | ED.EXTPRO ---
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 Patient states that over the last week he has had intermittent sticking of his right index and middle fingers with intermittent hand pain. Patient denies any dizziness, lightheadedness, abdominal pain, nausea, vomiting, fever, chills, blurry vision, double vision, loss of vision, chest pain, difficulty breathing, shortness of breath, back pain, night sweats, pain with urination, increased urinary frequency, increased urinary urgency, blood in his urine or stool, syncope or a near syncopal episode, recent trauma or falls, bowel incontinence, bladder incontinence, bowel retention, bladder retention, or any other complaints at this time. Onset (ago): week(s) (1) Pain Consistency: intermittent Location: right Severity scale (1-10): 2 Radiation: none Relieving factors: nothing Exacerbating factors: nothing Associated symptoms: denies other symptoms Related Data Home Medications Medication Instructions Recorded Confirmed aspirin 81 mg chewable tablet 81 mg PO DAILY 02/19/20 12/22/22 (Aspirin Childrens) atorvastatin 40 mg tablet (Lipitor) 40 mg PO BEDTIME 02/19/20 12/22/22 methadone 10 mg tablet 10 mg PO TID PRN Pain 02/19/20 12/22/22 montelukast 10 mg tablet 10 mg PO DAILY 02/19/20 12/22/22 (Singulair) duloxetine 60 mg capsule,delayed 60 mg PO DAILY 09/10/20 12/22/22 release zolpidem 10 mg tablet 10 mg PO BEDTIME PRN insomnia 08/12/21 12/22/22 albuterol sulfate 90 mcg/actuation 2 puff inhalation Q4H PRN Wheezing 10/27/21 12/22/22 aerosol inhaler alprazolam 2 mg tablet 1 tab PO BID PRN anxiety 10/27/21 06/06/22 latanoprost 0.005 % eye drops 1 drp ophthalmic (eye) BEDTIME 10/27/21 12/22/22 multivitamin with folic acid 400 1 tab PO DAILY 10/27/21 06/06/22 mcg tablet (Tab-A-Kelsie) naloxone 4 mg/actuation nasal 1 spray intranasal 10/27/21 02/13/22 spray (Narcan) tamsulosin 0.4 mg capsule 1 tab PO BEDTIME 10/27/21 06/06/22 blood sugar diagnostic (FreeStyle #10 ea 07/10/22 Lite Strips) glipizide 5 mg tablet 5 mg PO BID 07/10/22 12/22/22 magnesium oxide 400 mg (241.3 mg 400 mg PO DAILY 07/10/22 12/22/22 magnesium) tablet metformin 750 mg tablet,extended 750 mg PO DAILY 07/10/22 12/22/22 release 24 hr pantoprazole 40 mg tablet,delayed 40 mg PO BID 07/10/22 12/22/22 release pen needle, diabetic 33 gauge x #100 ea 07/10/2204/19 (Comfort EZ Pen [place]) testosterone enanthate 200 mg/mL 150 mg IM Q2W 07/10/22 intramuscular oil tizanidine 4 mg tablet 4 mg PO TID PRN Pain 07/10/22 12/22/22 bupropion HCl 300 mg 24 hr tablet, 300 mg PO DAILY 12/11/22 04/03/23 extended release fluticasone propionate 110 2 puff inhalation BID 12/11/22 12/22/22 mcg/actuation HFA aerosol inhaler (Flovent HFA) ketorolac 0.4 % eye drops drp ophthalmic (eye) 12/11/22 linaclotide 290 mcg capsule 290 mcg PO DAILY PRN Constipation 12/11/22 12/22/22 (Linzess) pen needle, diabetic 31 gauge x #1,200 ea 12/11/22/ (UltiCare Pen Needle) prazosin 5 mg capsule mg PO 12/11/22 cyclobenzaprine 10 mg tablet 10 mg PO Q8H PRN Spasms 12/22/22 12/22/22 levocetirizine 5 mg tablet 5 mg PO DAILY 01/25/23 spironolactone 25 mg tablet 25 mg PO DAILY 01/25/23 insulin glargine U-300 conc 300 60 unit subcut DAILY 04/03/23 04/03/23 unit/mL (3 mL) subcutaneous pen (Toujeo Max U-300 SoloStar) liraglutide 0.6 mg/0.1 mL (18 mg/3 1.8 mg subcut Q24H 04/03/23 04/03/23 mL) subcutaneous pen injector (Victoza 3-Deejay) carvedilol 6.25 mg tablet 6.25 mg PO BID 04/11/23 04/11/23 sacubitril 49 mg-valsartan 51 mg 1 tab PO BID 04/11/23 04/11/23 tablet (Entresto) Previous Rx's Medication Instructions Recorded hydrocortisone 2.5 % topical cream 1 appl AR BID-QID PRN hemorrhoids 07/09/20 with perineal applicator #30 grams (Procto-Med HC) baclofen 10 mg tablet 10 mg PO BID #20 tabs 04/03/22 dicyclomine 10 mg capsule 10 mg PO TID #30 caps 07/10/22 naproxen 500 mg tablet 500 mg PO BID PRN pain #30 tabs 09/17/22 ketorolac 10 mg tablet 10 mg PO TID PRN pain 5 days #15 10/02/22 tabs wheat dextrin 3 gram/3.5 gram oral 1 packet PO DAILY #28 ea 12/11/22 powder packet (Benefiber Clear Sugar Free(dextrin)) celecoxib 200 mg capsule (Celebrex) 200 mg PO BID 30 days #60 caps 01/25/23 ondansetron 4 mg disintegrating 4 mg PO Q8H PRN nausea and 02/02/23 tablet vomiting 3 days #10 tabs sucralfate 1 gram tablet (Carafate) 1 g PO AC #60 tabs 02/02/23 prednisone 20 mg tablet 20 mg PO DAILY 7 days #7 tabs 04/21/23 Allergies Allergy/AdvReac Type Severity Reaction Status Date / Time Penicillins [PENICILLINS] Allergy Unknown RASH Verified 04/21/23 08:48 Review of Systems Constitutional: Constitutional: Reports no additional constitutional complaints, Denies chills, Denies fever(s) and Denies night sweats Eyes: Eyes: Reports no additional eye complaints, Denies blurry vision, Denies change in vision, Denies diplopia, Denies eye discharge, Denies loss of vision and Denies eye pain ENT: Denies dizziness Cardiovascular: Cardiovascular: Reports no additional cardiovascular complaints, Denies chest pain, Denies lightheadedness, Denies Loss of Consciousness and Denies dyspnea Respiratory: Respiratory: Reports no additional respiratory complaints and Denies dyspnea Gastrointestinal: Gastrointestinal: Reports no additional gastrointestinal complaints, Denies abdominal pain, Denies melena, Denies hematochezia, Denies change in bowel habits and Denies change in stool character Genitourinary: Genitourinary: Reports no additional male genitourinary complaints, Denies hematuria, Denies oliguria, Denies difficulty urinating, Denies dysuria, Denies urinary frequency, Denies urinary hesitancy, Denies urinary incontinence and Denies urinary urgency Musculoskeletal: Musculoskeletal: Reports no additional musculoskeletal complaints, Denies numbness and Denies tingling Comments: intermittent right hand pain with intermittent sticking of the right index and middle fingers Neurologic: Denies dizziness, Denies loss of vision, Denies numbness and Denies tingling Psychiatric: Psychiatric: Reports no additional psychiatric complaints Endocrine: Endocrine: Reports no additional endocrine complaints Hematologic/Lymphatic: Hematologic/Lymphatic: Reports no additional hematologic/lymphatic complaints Allergic/Immunologic: Allergic/Immunologic: Reports no additional allergic/immunologic complaints PMF Past Medical History Attestation statement: The following information was validated with the patient. Source: old records reviewed and nursing notes reviewed Onset Date is defined in the Problem List Problems that require an onset date and time if occurred within 24 hrs of arrival to the ED Aortic Dissection and Rupture; Neurologic impairment; Cardiopulmonary Arrest; Endotracheal Intubation; Insertion or Replacement of Mechanical Circulatory Assist Device Medical History Obesity (BMI 30.0-34.9) Left flank discomfort Upper abdominal pain Constipation by delayed colonic transit GERD (gastroesophageal reflux disease) Elevated cholesterol HTN (hypertension) Bleeding hemorrhoids Diabetes mellitus Asthma Surgical History H/O foot surgery History of esophagogastroduodenoscopy (EGD) History of tonsillectomy History of sinus surgery History of neck surgery History of carpal tunnel release History of release of tendon History of umbilical hernia repair History of colonoscopy Family History Family History Mother History of colon cancer Brother History of liver cancer Maternal Aunt History of colon cancer Father No problems noted. Social History Social History Household Members: None Are you a primary care director rn to a significant other at home: No Do you presently have visiting nurse or other home services: No Alcohol intake: never Patient Tobacco Use Status: Former Tobacco user Quit Date: 2002 Tobacco use type: Cigarette Advance Directives: No Advance Directives Information Provided: Yes Physical Exam Vital Signs: Vital Signs: Last Vital Signs Temp 98.3 F 04/21/23 08:48 Pulse 94 04/21/23 08:48 Resp 18 04/21/23 08:48 BP 127/84 04/21/23 08:48 Pulse Ox 98 04/21/23 08:48 O2 Del Method Room Air 04/21/23 08:48 BMI result Body Mass Index 34.4 Const: General: cooperative, no acute distress, alert and awake Nutritional Appearance: well nourished Orientation/consciousness: patient oriented x3 Limitations: no limitations HEENT: Head: Yes normal to inspection and Yes atraumatic Ears: hearing grossly normal bilaterally and external ears normal General nose exam: Normal external nose present, no nasal discharge noted and no epistaxis Face and sinus: Yes normal facial exam, No abrasion and No laceration Mouth: Normal oral and palatal mucosa present, no drooling and no muffled voice Eyes: General: appearance normal, both eyes and all related structures Periorbital: periorbital findings normal Eyelids: Yes eyelids normal Conjunctivae: conjunctivae normal Pupils: Equal, round and reactive pupils present EOM: EOMs intact bilaterally Neck: Neck: Yes normal visual inspection, Yes full ROM and Yes no lymphadenopathy Chest: Chest palpation & inspection: normal inspection of the chest Resp: Effort & Inspection: normal respiratory effort and able to speak in complete sentences GI: Inspection: Yes normal to inspection Neuro: General: patient oriented x3 and moves all extremities Cranial nerves: Yes Equal, round and reactive pupils present Cognition (Neuro): normal cognition Motor exam (neuro): 5/5 motor strength present throughout Sensory Exam: Normal double simultaneous stimulation for sensation Coordination: [id number] test normal Extrem: General: Yes normal to inspection, Yes full ROM and Yes capillary refill normal Psych: Appearance: grossly normal Mental Status: mental status grossly normal Affect: normal affect Attitude: cooperative Thought process: Normal thought process present Thought content: Normal thought content present Insight: Good insight present (Psych) Medical Decision Making Medical Decision Making MDM Narrative: Patient is a 58 year old assigned male at with a history of OA, GERD, DM, and asthma presenting to the emergency department today with intermittent right hand pain with intermittent sticking of the right index and middle fingers. Patient's physical exam was unremarkable. I explained my physical exam findings to the patient. I answered all questions asked by the patient. I stressed the importance of the patient taking his medication as prescribed. I stressed the importance of the patient following up with his primary care provider and an orthopedic provider. I stressed the importance of the patient returning to the emergency department immediately if his symptoms were to worsen or if he were to develop any dizziness, shortness of breath, difficulty breathing, chest pain, blurry vision, loss of vision, nausea, vomiting, abdominal pain, fever, chills, back pain, or any other complaints. Patient verbalized agreement and understanding with this treatment plan and discharge. Differential Diagnosis Differential Diagnoses: The differential diagnosis associated with the presentation includes Trigger finger Admission/Observation Consideration of admission/observation: Escalation of care including admission/observation considered Patient would have been admitted to the hospital had his clinical presentation warranted hospital admission. Discharge Plan Discharge Clinical Impression: Trigger finger Patient Disposition: Home, Self-Care Instructions: Trigger Finger (ED) Additional Instructions: Follow up with your primary care provider and an orthopedic provider. Return to the emergency department immediately if your symptoms worsen or if you develop any dizziness, shortness of breath, difficulty breathing, chest pain, blurry vision, loss of vision, nausea, vomiting, abdominal pain, fever, chills, back pain, or any other complaints. Sydnie un seguimiento con dennis proveedor de atenci?n primaria y un proveedor ortop?dico. Regrese al departamento de emergencias inmediatamente si petrona s?ntomas empeoran o si presenta mareos, dificultad para respirar, dificultad para respirar, dolor en el pecho, visi?n borrosa, p?rdida de la visi?n, n?useas, v?mitos, dolor abdominal, fiebre, escalofr?os, dolor de espalda o cualquier otras quejas. Prescriptions: New prednisone 20 mg tablet 20 mg PO DAILY 7 Days Qty: 7 0RF No Action latanoprost 0.005 % drops 1 drp ophthalmic (eye) BEDTIME tamsulosin 0.4 mg capsule 1 tab PO BEDTIME alprazolam 2 mg tablet 1 tab PO BID PRN (Reason: anxiety) albuterol sulfate 90 mcg/actuation HFA aerosol inhaler 2 puff inhalation Q4H PRN (Reason: Wheezing) multivitamin with folic acid [Tab-A-Kelsie] 400 mcg tablet 1 tab PO DAILY naloxone [Narcan] 4 mg/actuation spray,non-aerosol 1 spray intranasal baclofen 10 mg tablet 10 mg PO BID Qty: 20 0RF cyclobenzaprine 10 mg tablet 10 mg PO Q8H PRN (Reason: Spasms) naproxen 500 mg tablet 500 mg PO BID PRN (Reason: pain) Qty: 30 0RF ketorolac 10 mg tablet 10 mg PO TID PRN (Reason: pain) 5 Days Qty: 15 0RF sucralfate [Carafate] 1 gram tablet 1 g PO AC Qty: 60 0RF ondansetron 4 mg tablet,disintegrating 4 mg PO Q8H PRN (Reason: nausea and vomiting) 3 Days Qty: 10 0RF atorvastatin [Lipitor] 40 mg tablet 40 mg PO BEDTIME montelukast [Singulair] 10 mg tablet 10 mg PO DAILY methadone 10 mg tablet 10 mg PO TID PRN (Reason: Pain) aspirin [Aspirin Childrens] 81 mg tablet,chewable 81 mg PO DAILY duloxetine 60 mg capsule,delayed release(DR/EC) 60 mg PO DAILY hydrocortisone [Procto-Med HC] 2.5 % cream with perineal applicator 1 appl AR BID-QID PRN (Reason: hemorrhoids) Qty: 30 0RF zolpidem 10 mg tablet 10 mg PO BEDTIME PRN (Reason: insomnia) dicyclomine 10 mg capsule 10 mg PO TID Qty: 30 0RF pantoprazole 40 mg tablet,delayed release (DR/EC) 40 mg PO BID (DME) FreeStyle Lite Strips Strip See Rx Instructions .ROUTE TID Qty: 10 Rx Instructions: As directed (DME) pen needle, diabetic [Comfort EZ Pen [place]] 33 gauge x 1/4 needle See Rx Instructions .ROUTE .MEDSUPPLY Qty: 100 Rx Instructions: As directed metformin 750 mg tablet extended release 24 hr 750 mg PO DAILY glipizide 5 mg tablet 5 mg PO BID tizanidine 4 mg tablet 4 mg PO TID PRN (Reason: Pain) magnesium oxide 400 mg (241.3 mg magnesium) tablet 400 mg PO DAILY testosterone enanthate 200 mg/mL oil 150 mg IM Q2W (DME) pen needle, diabetic [UltiCare Pen Needle] 31 gauge x 5/16 needle See Rx Instructions .ROUTE .MEDSUPPLY Qty: 1200 Rx Instructions: As directed fluticasone propionate [Flovent HFA] 110 mcg/actuation HFA aerosol inhaler 2 puff inhalation BID bupropion HCl 300 mg tablet extended release 24 hr 300 mg PO DAILY ketorolac 0.4 % drops ophthalmic (eye) prazosin 5 mg capsule PO Linzess 290 mcg capsule 290 mcg PO DAILY PRN (Reason: Constipation) Benefiber Clear SF (dextrin) 3 gram/3.5 gram powder in packet 1 packet PO DAILY Qty: 28 3RF Rx Instructions: mix into at least 4 oz water or juice before administering levocetirizine 5 mg tablet 5 mg PO DAILY spironolactone 25 mg tablet 25 mg PO DAILY celecoxib [Celebrex] 200 mg capsule 200 mg PO BID 30 Days Qty: 60 3RF Toujeo Max U-300 SoloStar 300 unit/mL (3 mL) insulin pen 60 unit subcut DAILY Victoza 3-Deejay 0.6 mg/0.1 mL (18 mg/3 mL) pen injector 1.8 mg subcut Q24H carvedilol 6.25 mg tablet 6.25 mg PO BID Rx Instructions: must administer with a meal/food Entresto 49-51 mg tablet 1 tab PO BID Referrals: [facility] [place] [facility] [Provider Group] (Call to establish and follow up with an orthopedic provider. Llame para establecer y realizar un seguimiento con un proveedor ortop?dico.) Vamshi Man MD [Primary Care Provider] - Interventions: ED Discharge Assessment Last Done: 04/21/23 10:06 Discharge Date/Time: 04/21/23 10:07 Print Language: Luxembourgish
== END 2023-04-21 10:07 | disposition home or self-care (01) ==
PROVIDERS: Emergency Provider Student in an Organized Health Care Education/Training Program; PCP Internal Medicine
DX: M65.321 Trigger finger, right index finger (principal); M65.331 Trigger finger, right middle finger; E11.9 Type 2 diabetes mellitus without complications; I10 Essential (primary) hypertension; E78.5 Hyperlipidemia, unspecified; E66.9 Obesity, unspecified; Z68.34 Body mass index [BMI] 34.0-34.9, adult; Z79.82 Long term (current) use of aspirin; Z79.02 Long term (current) use of antithrombotics/antiplatelets; Z79.899 Other long term (current) drug therapy; Z79.4 Long term (current) use of insulin; Z79.84 Long term (current) use of oral hypoglycemic drugs
CPT/HCPCS: 99283

== ENCOUNTER 2023-05-08 11:35 | Outpatient (AMB) | payer MEDICARE, MEDICAID, SELFPAY ==
[2023-05-08 12:20] VITALS: BP 138/78; PULSE 89; O2SAT 98; BMI 34.3
--- NOTE | 2023-05-08 12:20 | HO.NEPHOV_ITS ---
HPI HPI Comments History of Present Illness Details I had the privilege of seeing Elissa in consultation for his hypertension and renal cysts. He had pancreatic cyst as well and had been having yearly MRI. He had seen Dr. Brooks before and is here for me to take ov er his care. He does not have any flank pain, nephrolithiasis, hematuria. He has taken Jardiance before and had urinary symptoms from it and was discontinued. It was replaced by glipizide, the dose of which he has adjusted as he thought he had similar symptoms from it like Jardiance. He is on insulin and his blood sugar is fair. He is also on a Entresto and spironolactone. He denies any chest pain, shortness of breath, proximal nocturnal dyspnea, orthopnea, pedal edema or orthostatic symptoms. He claims to be compliant with medications. He denies taking any nonsteroidal anti-inflammatories. He has no family history of any ESRD or renal transplantation. He denies any significant proteinuria or retinopathy. His last serum creatinine was 0.9. [facility] Medical History (Updated 05/08/23 @ 13:56 by Jose Whitney MD) Obesity (BMI 30.0-34.9) Left flank discomfort Upper abdominal pain Constipation by delayed colonic transit GERD (gastroesophageal reflux disease) Elevated cholesterol HTN (hypertension) Bleeding hemorrhoids Diabetes mellitus Asthma Surgical History H/O foot surgery History of esophagogastroduodenoscopy (EGD) History of tonsillectomy History of sinus surgery History of neck surgery History of carpal tunnel release History of release of tendon History of umbilical hernia repair History of colonoscopy Family History Mother History of colon cancer Brother History of liver cancer Maternal Aunt History of colon cancer Father No problems noted. Social History Household Members: None Are you a primary childcare teacher to a significant other at home: No Do you presently have visiting nurse or other home services: No Alcohol intake: never Patient Tobacco Use Status: Former Tobacco user Quit Date: 2002 Tobacco use type: Cigarette Vital Signs 05/08/23 12:20 Height 6 ft 2 in Weight 267 lb 6 oz BMI 34.3 BP 138/78 Position Sitting Pulse 89 Pulse Source Pulse Oximeter Pulse Oximetry (%) 98 Oxygen Delivery Method Room Air Physical Exam Vital Signs: Last Vital Signs Pulse 89 05/08/23 12:20 BP 138/78 05/08/23 12:20 Pulse Ox 98 05/08/23 12:20 Oxygen Delivery Method Room Air 05/08/23 12:20 BMI result Body Mass Index 34.3 Const General: comfortable and no acute distress Orientation/consciousness: patient oriented x3 HEENT Head: Yes normocephalic Mouth: Normal oral and palatal mucosa present Eyes EOM: EOMs intact bilaterally Neck Neck: Yes supple Resp Auscultation: clear to auscultation bilaterally Cardio Jugular venous distension: no JVD Rate: regular rate GI Palpation (GI): Soft to palpation Auscultation: normal bowel sounds General: Yes no CVA tenderness Back/Spine/Pelvis Back: no CVA tenderness Skin General skin exam: no rashes or lesions noted Neuro General: patient oriented x3 and moves all extremities Extrem General: Yes no pedal edema Assessment & Plan Assessment & Plan (1) HTN (hypertension): Code(s): I10 - Essential (primary) hypertension Qualifiers: Hypertension type: primary hypertension Qualified Code(s): I10 - Essential (primary) hypertension (2) Renal cyst: Code(s): N28.1 - Cyst of kidney, acquired Plan Elissa has longstanding hypertension and is on multiple antihypertensive medications. He had been on losartan in the past which was switched to Entresto and spironolactone by Dr. Campa as per the patient. He is not very clear or sure why that change had happened. He does not monitor his blood pressure at home. He needs to lose weight. He needs to cut back sodium in the diet. He denied any cardiomyopathy. He has renal cysts for long time which has been followed by yearly imaging when he gets the scanned for pancreatic cyst. He is not known to have any significant proteinuria. He had biopsy of the renal lesions which were unremarkable as per the patient. I ordered blood work and urine studies. I asked him to check his blood pressure at home and keep a log of it. He likely will need adjustment of his blood pressure medications which I plan to do at the next visit based on evolving data. Answered all questions. Follow-up given. Orders: Orders Creatinine Today I10 - Essential (primary) hypertension Blood Urea Nitrogen Today I10 - Essential (primary) hypertension Electrolytes Today I10 - Essential (primary) hypertension Protein Creatinine Ratio, Ur Today I10 - Essential (primary) hypertension Coding Level of Care Code New Pt Level 4 (46658) Diagnoses Primary hypertension I10 Hypertension type: primary hypertension Renal cyst N28.1 Results Reviewed Nephrology Results: Hgb 15.0 g/dl (14.0-18.0) 02/02/23 WBC 8.7 X10*3/uL (4.8-10.8) 02/02/23 Plt Count 221 X10*3/uL (160-400) 02/02/23 Sodium 135 mmol/L (135-145) 02/02/23 Potassium 4.2 mmol/L (3.3-5.1) 02/02/23 Chloride 105 mmol/L (96-108) 02/02/23 Carbon Dioxide 23 mmol/L (22-29) 02/02/23 BUN 15 mg/dL (9-16) 02/02/23 Creatinine 0.95 mg/dL (0.5-1.4) 02/02/23 Calcium 9.6 mg/dL (8.4-10.2) 02/02/23 Urine Protein Negative mg/dL (Neg-Trace) 02/02/23
== END 2023-05-08 13:01 | disposition home or self-care (01) ==
PROVIDERS: PCP Internal Medicine; Visit Provider Internal Medicine Nephrology
DX: I10 Essential (primary) hypertension (principal); N28.1 Cyst of kidney, acquired
CPT/HCPCS: 99204

== ENCOUNTER → 2023-05-08 11:35 | Outpatient (BNVA) | payer MEDICARE, MEDICAID, SELFPAY | PROVIDERS: PCP Internal Medicine; Visit Provider Internal Medicine Nephrology | DX: I10 Essential (primary) hypertension (principal); N28.1 Cyst of kidney, acquired; Z79.899 Other long term (current) drug therapy | CPT/HCPCS: 99202 ==

== ENCOUNTER 2023-05-21 12:53 | Outpatient (AMB) | payer MEDICARE, MEDICAID, SELFPAY ==
--- NOTE | 2023-05-21 13:45 | MHC.OFFVIS ---
Intake Vital Signs 05/21/23 13:51 Height 6 ft 2 in Weight 261 lb BMI 33.5 BP 130/74 Blood Pressure Location Lt brachial Position Sitting Pulse 107 H Intake Visit Reasons: 4 Month Follow Up Intake Note: Patient follow up abdominal pain. Patient cc: N/V, abdominal pain on middle of abdomen and LLQ pain, acid reflex with burning sensation, constipation on and off and some dysphagia. Denies any other GI issues. Boom Cat Operator Required: Yes Boom Cat Operator Name: [facility] interpeter Accompanied by: Self / Same As Patient Allergies Penicillins [PENICILLINS] Allergy (Unknown, Verified 05/21/23 13:41) RASH HPI 4 Month Follow Up HPI Details A 57 y/o male follow up with dysphagia and early satiety RECAP: EGD with balloon dilation which helped his dysphagia He had rept EGD with dilation for recurrence of dysphagia 06/08 with savary 17 mm He is was also dx with rapid gastric emptying and urgency possibly from DM and medication effects US 08/2022-- elastography 1.6, steatosis, nml GB, no stones/sludge INTERIM: His swallowing is worse again but not as bad as before, having some issues with swallowing solids he has urgency for urine, for 1 month he has discomfort LLQ --sometimes better passign stool or urine, can be worse lying on that side he is still taking methadone he is taking benefiber which helps his bowel ozempic working well EXAM: GENERAL: The patient is well developed and nontoxic. VITAL SIGNS:see workflow HEENT: Nonicteric sclerae, PERRLA, EOMI. Oropharynx clear. Moist mucous membranes. Conjunctivae appear well perfused. No thyroid mass. CHEST: Chest wall is nontender. HEART: Regular rate and rhythm without murmurs. LUNGS: Clear to auscultation bilaterally. ABDOMEN: Soft, positive bowel sounds, nontender, no organomegaly. pos flank tenderness and left sided abdomen SKIN: No rash, no excessive bruising, petechiae, or purpura. NEUROLOGIC: Cranial nerves II-XII intact without motor/sensory deficit. Psych--nml MS; using walking stick, limping, tender para spinal muscles and lower spine A/P: 1/ Dysphagia, possibly related to medications, DM, methadone 2/ rapid gastric emptying 3/ left sided flank discomfort seems to be radicular from the spine PLAN: 1/ US abdomen 2/ rept EGD with bougie dilation 3/ refer cardiolgoy due to pt request--has pos urine light chains--spect scan was negative [facility] Medical History (Updated 05/21/23 @ 14:22 by Cynthia Howe MD) Obesity (BMI 30.0-34.9) Left flank discomfort Upper abdominal pain Constipation by delayed colonic transit GERD (gastroesophageal reflux disease) Elevated cholesterol HTN (hypertension) Bleeding hemorrhoids Diabetes mellitus Asthma Surgical History H/O foot surgery History of esophagogastroduodenoscopy (EGD) History of tonsillectomy History of sinus surgery History of neck surgery History of carpal tunnel release History of release of tendon History of umbilical hernia repair History of colonoscopy Family History Mother History of colon cancer Brother History of liver cancer Maternal Aunt History of colon cancer Father No problems noted. Social History Household Members: None Are you a primary rental boats caretaker to a significant other at home: No Do you presently have visiting nurse or other home services: No Alcohol intake: never Patient Tobacco Use Status: Former Tobacco user Quit Date: 2002 Tobacco use type: Cigarette Physical Exam Vital Signs: Last Vital Signs Pulse 107 H 05/21/23 13:51 BP 130/74 05/21/23 13:51 BMI result Body Mass Index 33.5 Assessment & Plan Assessment & Plan (1) Cardiomyopathy: Code(s): I42.9 - Cardiomyopathy, unspecified Plan: A/P: 1/ Dysphagia, possibly related to medications, DM, methadone 2/ rapid gastric emptying 3/ left sided flank discomfort seems to be radicular from the spine PLAN: 1/ US abdomen 2/ rept EGD with bougie dilation 3/ refer cardiolgoy due to pt request--has pos urine light chains--spect scan was negative (2) GERD (gastroesophageal reflux disease): Code(s): K21.9 - Gastro-esophageal reflux disease without esophagitis Qualifiers: Esophagitis presence: esophagitis presence not specified Qualified Code(s): K21.9 - Gastro-esophageal reflux disease without esophagitis Plan: A/P: 1/ Dysphagia, possibly related to medications, DM, methadone 2/ rapid gastric emptying 3/ left sided flank discomfort seems to be radicular from the spine PLAN: 1/ US abdomen 2/ rept EGD with bougie dilation 3/ refer cardiolgoy due to pt request--has pos urine light chains--spect scan was negative (3) Dysphagia: Code(s): R13.10 - Dysphagia, unspecified Qualifiers: Dysphagia type: esophageal phase Qualified Code(s): R13.10 - Dysphagia, unspecified Plan: A/P: 1/ Dysphagia, possibly related to medications, DM, methadone 2/ rapid gastric emptying 3/ left sided flank discomfort seems to be radicular from the spine PLAN: 1/ US abdomen 2/ rept EGD with bougie dilation 3/ refer cardiolgoy due to pt request--has pos urine light chains--spect scan was negative Orders: Orders US abdomen complete Today R10.9 - Unspecified abdominal pain Referrals Cardiology Referral I42.9 - Cardiomyopathy, unspecified, K21.9 - Gastro-esophageal reflux disease without esophagitis, R13.10 - Dysphagia, unspecified Coding Level of Care Code Est Pt Level 3 (44600) Diagnoses Cardiomyopathy I42.9 Gastroesophageal reflux disease, unspecified whether esophagitis present K21.9 Esophagitis presence: esophagitis presence not specified Esophageal dysphagia R13.10 Dysphagia type: esophageal phase
[2023-05-21 13:51] VITALS: BP 130/74; PULSE 107; BMI 33.5
== END 2023-05-21 14:27 | disposition home or self-care (01) ==
PROVIDERS: PCP Internal Medicine; Visit Provider Internal Medicine Gastroenterology
DX: I42.9 Cardiomyopathy, unspecified (principal); K21.9 Gastro-esophageal reflux disease without esophagitis; R13.10 Dysphagia, unspecified
CPT/HCPCS: 99213

== ENCOUNTER → 2023-05-21 12:53 | Outpatient (BNVA) | payer MEDICARE, MEDICAID, SELFPAY | PROVIDERS: PCP Internal Medicine; Visit Provider Internal Medicine Gastroenterology | DX: R10.9 Unspecified abdominal pain (principal); K21.9 Gastro-esophageal reflux disease without esophagitis; R13.10 Dysphagia, unspecified; I42.9 Cardiomyopathy, unspecified | CPT/HCPCS: 99212 ==

== ENCOUNTER 2023-05-30 13:11 | Outpatient (AMB) | payer MEDICARE, MEDICAID, SELFPAY ==
[2023-05-30 13:18] VITALS: BMI 33.5
--- NOTE | 2023-05-30 13:18 | A.OFFVIS_ITS ---
Intake Vital Signs 05/30/23 13:18 Height 6 ft 2 in Weight 261 lb BMI 33.5 Intake Visit Reasons: ov-OA of right knee last inject 02/21/23 Intake Note: Elissa a 58 year old male presents today for a follow up of right knee OA, last injection on 02/21/23. Patient reports injection provided him relief for about 3 months. He would like to repeat injection today. Allergies Penicillins [PENICILLINS] Allergy (Unknown, Verified 05/30/23 13:19) RASH HPI ov-OA of right knee last inject 02/21/23 HPI Details 58-year-old male who returns to the [facility] today for a follow-up of right knee pain. He had his last injection on 02/21/23 which provided him relief for about 3 months. He would like to repeat the injection. [facility] Medical History (Updated 05/21/23 @ 14:22 by Cynthia Howe MD) Obesity (BMI 30.0-34.9) Left flank discomfort Upper abdominal pain Constipation by delayed colonic transit GERD (gastroesophageal reflux disease) Elevated cholesterol HTN (hypertension) Bleeding hemorrhoids Diabetes mellitus Asthma Surgical History H/O foot surgery History of esophagogastroduodenoscopy (EGD) History of tonsillectomy History of sinus surgery History of neck surgery History of carpal tunnel release History of release of tendon History of umbilical hernia repair History of colonoscopy Family History Mother History of colon cancer Brother History of liver cancer Maternal Aunt History of colon cancer Father No problems noted. Social History Household Members: None Are you a primary care clinician to a significant other at home: No Do you presently have visiting nurse or other home services: No Alcohol intake: never Patient Tobacco Use Status: Former Tobacco user Quit Date: 2002 Tobacco use type: Cigarette Review of Systems Const All systems reviewed & are unremarkable except as noted in HPI and below Physical Exam Vital Signs: BMI result Body Mass Index 33.5 Extrem Other: Right knee: Skin intact, no erythema or joint effusion. Retropatellar tenderness present. Full ROM with crepitus. Negative Pearl?s. No ligamentous laxity. NVI. Office Procedures Joint Injection/Drain Joint Injection/Drain Primary Site: right knee Prep: site was prepped using aseptic technique, ethochloride spray was applied and injection warnings given Injected: 40 mg of, DepoMedrol, with 8 mL of, 1% plain lidocaine and in the joint Approach Used: anterolateral Procedure: The patient tolerated the procedure well and there was some relief with the local anesthesia Coding 30235 - Glenohumeral/Tronchanteric Bursa/Intraarticular Procedure code (CPT) selection complete Assessment & Plan Assessment & Plan (1) Osteoarthritis of right knee: Code(s): M17.11 - Unilateral primary osteoarthritis, right knee Qualifiers: Osteoarthritis type: primary Qualified Code(s): M17.11 - Unilateral primary osteoarthritis, right knee Plan We discussed options today which include steroid injection. They did consent to move forward with the right knee injection, which was tolerated well. I recommended rest, ice and elevation and OTC anti-inflammatories PRN for discomfort. We will also get a prior authorization for gel injections. We also discussed their diabetes and the effect the steroid can have on their blood glucose levels; therefore, they will continue to monitor these very closely over the next 72 hours. If there are any concerns, they should report to the ED immediately. Patient Instructions: Scribed for Luana Gama PA-C, by Rashawn Yu medical aides teacher, on 05/30/2023 at 1:30 PM MELLISA. Luana Esquivel PA-C, have personally reviewed and agree with the information entered by the scribe. Coding Level of Care Code Est Pt Level 3 (08162) Diagnoses Primary osteoarthritis of right knee M17.11 Osteoarthritis type: primary CPT Codes Coding - Joint 7: 11411 - Glenohumeral/Tronchanteric Bursa/Intraarticular ([id number])
== END 2023-05-30 14:18 | disposition home or self-care (01) ==
PROVIDERS: PCP Internal Medicine; Visit Provider Physician Assistant
DX: M17.11 Unilateral primary osteoarthritis, right knee (principal)
CPT/HCPCS: 20610; 99213

== ENCOUNTER → 2023-05-30 13:11 | Outpatient (BNVA) | payer MEDICARE, MEDICAID, SELFPAY | PROVIDERS: PCP Internal Medicine; Visit Provider Physician Assistant | DX: M17.11 Unilateral primary osteoarthritis, right knee (principal) | CPT/HCPCS: 20610; 99212; J1020 ==

== ENCOUNTER 2023-06-05 08:46 | Outpatient (REF) | payer MEDICARE, MEDICAID, SELFPAY ==
--- NOTE | ~2023-06-05 | US_ITS ---
EXAMINATION: US ABDOMEN COMPLETE CLINICAL INFORMATION: Unspecified abdominal pain. Left-sided abdominal pain. COMPARISON: CT abdomen and pelvis 02/02/2023. Ultrasound of the abdomen complete with elastography 08/25/2022 and 12/13/2021. TECHNIQUE: Real-time imaging of the abdominal viscera. Limited visualization due to bowel gas and body habitus. FINDINGS: PANCREAS: Limited visualization of pancreatic tail and head. Imaged portion of pancreatic body is unremarkable. ABDOMINAL AORTA: Limited visualization with poor visualization of the proximal to mid abdominal aorta. Imaged portion of mid to distal abdominal aorta is unremarkable. INFERIOR VENA CAVA: Visualized portions are normal. LIVER: Increased hepatic parenchymal heterogeneity and echogenicity could be associated with hepatocellular disease/hepatic steatosis and severely limits visualization. Correlation with liver function tests and clinical exam recommended to determine further management. GALLBLADDER: No gallstones. Gallbladder wall thickness is 3 mm. COMMON BILE DUCT: Normal in caliber measuring 0.3 cm in diameter. RIGHT KIDNEY: No hydronephrosis. No renal calculi. Mid pole 2.7 cm and 1.0 cm mid to lower pole cysts are difficult to fully characterize due to limited visualization. A 1.[address] scan of 02/02/2023 characterized 1.6 cm right renal cyst for which there was no indication for follow-up imaging. Ultrasound of 08/30/2022 characterized relatively simple-appearing cysts. The kidney measures 13.4 cm in maximum dimension. LEFT KIDNEY: No hydronephrosis. No renal calculi. Limited visualization. A 0.9 cm lateral midpole exophytic hypoechoic lesion is difficult to characterize due to limited visualization. Ultrasound of 08/30/2022 characterized a simple 9 mm cyst. The kidney measures 12.6 cm in maximum dimension. SPLEEN: Unremarkable. The spleen measures 11.1 cm in maximum dimension. FREE FLUID: None. US/US abdomen complete IMPRESSION: 1. Increased hepatic parenchymal heterogeneity and echogenicity could be associated with hepatocellular disease/hepatic steatosis and severely limits visualization. Correlation with liver function tests and clinical exam recommended to determine further management. 2. Bilateral renal cysts are difficult to fully characterize due to limited visualization. CT scan of 02/02/2023 characterized 1.6 cm right renal cyst for which there was no indication for follow-up imaging. Ultrasound of 08/30/2022 characterized relatively simple-appearing cysts.
== END 2023-06-05 08:47 | disposition home or self-care (01) ==
LOC: HO.HMGCX 08:46
PROVIDERS: PCP Internal Medicine; Visit Provider Internal Medicine Gastroenterology
DX: R10.9 Unspecified abdominal pain (principal)
CPT/HCPCS: 76700

== ENCOUNTER 2023-06-26 10:55 | Outpatient (AMB) | payer MEDICARE, MEDICAID, SELFPAY ==
--- NOTE | 2023-06-26 11:08 | A.OFFVIS_ITS ---
Intake Vital Signs 06/26/23 11:10 Height 6 ft 2 in Weight 261 lb BMI 33.5 Intake Visit Reasons: New Prob- Right hand pain locking Intake Note: Elissa 58 yr old male who is right hand dominant presents today for a new problem visit for his right hand small finger, index and thumb pain. States his pinky is locking when making a fist that started about 2-3 months ago. Pain is worse in the night time and morning. Hx of B/L CTR , tendonitis sx inb/l ebow as well done at [facility] 10 yrs ago. Last A1c was done about 6 months ago and was a 7.5. Denies recent injury. Allergies Penicillins [PENICILLINS] Allergy (Unknown, Verified 05/30/23 13:19) RASH HPI New Prob- Right hand pain locking HPI Details Elissa is a 58 year old right hand dominant Polish speaking Diabetic man who presents with complaints of right hand pain & locking. He complains of painful locking of his thumb, index & small fingers. He was seen in the ED on 04/21/23 for this, and was given a course of PO Prednisone which he says was not particularly helpful. He says his index & small fingers are the most bothersome. He has a hx of bilateral carpal tunnel release at an outside clinic in the past. He denies any numbness or tingling. He is currently on methadone 10mg TID. He is scheduled to have a right ankle surgery sometime in July. [facility] Medical History (Updated 06/26/23 @ 11:26 by Cachorro Schaefer) Obesity (BMI 30.0-34.9) Left flank discomfort Upper abdominal pain Constipation by delayed colonic transit GERD (gastroesophageal reflux disease) Elevated cholesterol HTN (hypertension) Bleeding hemorrhoids Diabetes mellitus Asthma Surgical History H/O foot surgery History of esophagogastroduodenoscopy (EGD) History of tonsillectomy History of sinus surgery History of neck surgery History of carpal tunnel release History of release of tendon History of umbilical hernia repair History of colonoscopy Family History Mother History of colon cancer Brother History of liver cancer Maternal Aunt History of colon cancer Father No problems noted. 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 Review of Systems Const All systems reviewed & are unremarkable except as noted in HPI and below Physical Exam Vital Signs: BMI result Body Mass Index 33.5 Const General: cooperative, healthy appearing and no acute distress Orientation/consciousness: patient oriented x3 HEENT Head: Yes normocephalic and Yes atraumatic Eyes EOM: EOMs intact bilaterally Resp Effort & Inspection: normal respiratory effort and able to speak in complete sentences Cardio Jugular venous distension: no JVD Skin General skin exam: turgor normal Rashes: no rashes Neuro General: patient oriented x3 Extrem Other: Evaluation of Right Upper Extremity: The patient is alert, oriented, and in no acute distress Neuro: Median, Ulnar, Radial nerves motor and sensory intact and sensation is normal to the tips of all digits Vascular: Cap refill brisk ROM: He can make a fist and extend all his digits Visible and palpable locking of the small finger Palpable catching of the thumb & index fingers Tender over the a1 oriana of the thumb, index, and small fingers Skin: No lacerations or abrasions. General: No Ecchymosis. No Erythema or evidence of infection. Psych Appearance: grossly normal Affect: normal affect Attitude: cooperative Assessment & Plan Assessment & Plan (1) Trigger index finger of right hand: Code(s): M65.321 - Trigger finger, right index finger (2) Trigger little finger of right hand: Code(s): M65.351 - Trigger finger, right little finger (3) Trigger thumb of right hand: Code(s): M65.311 - Trigger thumb, right thumb (4) Diabetes mellitus: Code(s): E11.9 - Type 2 diabetes mellitus without complications (5) Cardiomyopathy: Code(s): I42.9 - Cardiomyopathy, unspecified Plan Assessment & Plan: 1. Right index finger trigger finger 2. Right small finger trigger finger I educated him about this condition I discussed operative and non-operative treatment options The patient would like to proceed with surgery The risks and benefits of operative treatment were discussed with the patient and the patient wishes to proceed with surgery. These risks include, but are not limited to risk of damage to blood vessels, nerves, tendons, infection, recurrence, incomplete relief of preoperative symptoms, persistent pain, possible need for further surgery and the risks associated with regional blocks and anesthesia. The plan is to take the patient to the operating room sometime in the next few weeks for the following procedures: 1. Right index finger trigger release, under local 2. Right small finger trigger release, under local All of the preoperative paperwork including the consent was reviewed today. All the patient's questions were answered. The patient understands that they will be contacted by our home health scheduler soon to schedule this procedure He denies blood thinners, lung, kidney issues he is a Diabetic, he says his most recent HgA1c was ~7.5% in ~12/2022. They will need an updated HgA1c that is <8.1% in order to proceed with surgery, and they expressed understanding He has Cardiomyopathy and Asthma 3. Right trigger thumb He would like to discuss treatment for this at a later date Scribed for Leonora Guzman MD by Cachorro Schaefer, biomedical engineering internship, on 06/26/23 at 11:26 AM, EST. Coding Level of Care Code New Pt Level 4 (03157) Diagnoses Trigger index finger of right hand M65.321 Trigger little finger of right hand M65.351 Trigger thumb of right hand M65.311 Diabetes mellitus E11.9 Cardiomyopathy I42.9
[2023-06-26 11:10] VITALS: BMI 33.5
== END 2023-06-26 11:32 | disposition home or self-care (01) ==
PROVIDERS: PCP Internal Medicine; Visit Provider Orthopaedic Surgery
DX: M65.321 Trigger finger, right index finger (principal); M65.351 Trigger finger, right little finger; M65.311 Trigger thumb, right thumb; E11.9 Type 2 diabetes mellitus without complications; I42.9 Cardiomyopathy, unspecified
CPT/HCPCS: 99204

== ENCOUNTER → 2023-06-26 10:55 | Outpatient (BNVA) | payer MEDICARE, MEDICAID, SELFPAY | PROVIDERS: PCP Internal Medicine; Visit Provider Orthopaedic Surgery | DX: M65.321 Trigger finger, right index finger (principal); M65.351 Trigger finger, right little finger | CPT/HCPCS: 99202 ==

== ENCOUNTER 2023-07-02 09:29 | Outpatient (AMB) | payer MEDICARE, MEDICAID, SELFPAY ==
--- NOTE | 2023-07-02 09:35 | A.OFFVIS_ITS ---
Intake Vital Signs 07/02/23 09:39 Height 6 ft 2 in Weight 261 lb BMI 33.5 Intake Visit Reasons: ov- right knee Durolane injection Intake Note: Elissa a 58 year old male presents today for a right knee Durolane injection. Allergies Penicillins [PENICILLINS] Allergy (Unknown, Verified 07/02/23 09:38) RASH HPI ov- right knee Durolane injection HPI Details 58-year-old male who returns to the [facility] today for a right knee Durolane injection. [facility] Medical History (Updated 06/26/23 @ 11:26 by Cachorro Schaefer) Obesity (BMI 30.0-34.9) Left flank discomfort Upper abdominal pain Constipation by delayed colonic transit GERD (gastroesophageal reflux disease) Elevated cholesterol HTN (hypertension) Bleeding hemorrhoids Diabetes mellitus Asthma Surgical History H/O foot surgery History of esophagogastroduodenoscopy (EGD) History of tonsillectomy History of sinus surgery History of neck surgery History of carpal tunnel release History of release of tendon History of umbilical hernia repair History of colonoscopy Family History Mother History of colon cancer Brother History of liver cancer Maternal Aunt History of colon cancer Father No problems noted. 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 Tenderness along the medial and lateral joint line. Full ROM with crepitus. Negative Pearl?s. No ligamentous laxity. NVI. Office Procedures Joint Injection/Drain Joint Injection/Drain Details: durolane injection Primary Site: right knee Prep: site was prepped using aseptic technique, ethochloride spray was applied and injection warnings given Approach Used: anterolateral Procedure: The patient tolerated the procedure well Coding 39794 - Glenohumeral/Tronchanteric Bursa/Intraarticular Procedure code (CPT) selection complete Assessment & Plan Assessment & Plan (1) Osteoarthritis of right knee: Code(s): M17.11 - Unilateral primary osteoarthritis, right knee Qualifiers: Osteoarthritis type: primary Qualified Code(s): M17.11 - Unilateral primary osteoarthritis, right knee Plan We discussed options today which include Durolane injection. They did consent to move forward with the right knee Durolane injection, which was tolerated well. I recommended rest, ice and elevation and OTC anti-inflammatories PRN for discomfort. If symptoms persist or worsens over the next 6-8 weeks, patient will contact the office, otherwise follow-up as needed. Patient Instructions: Scribed for Luana Gama PA-C, by Rashawn Yu medical accountant, on 07/02/2023 at 9:45 AM EST. I, Luana Gama PA-C, have personally reviewed and agree with the information entered by the scribe. Coding Level of Care Code Procedure Only Diagnoses Primary osteoarthritis of right knee M17.11 Osteoarthritis type: primary CPT Codes Coding - Joint 7: 72494 - Glenohumeral/Tronchanteric Bursa/Intraarticular ([id number])
[2023-07-02 09:39] VITALS: BMI 33.5
== END 2023-07-02 10:15 | disposition home or self-care (01) ==
PROVIDERS: PCP Internal Medicine; Visit Provider Physician Assistant
DX: M17.11 Unilateral primary osteoarthritis, right knee (principal)
CPT/HCPCS: 20610

== ENCOUNTER → 2023-07-02 09:29 | Outpatient (BNVA) | payer MEDICARE, MEDICAID, SELFPAY | PROVIDERS: PCP Internal Medicine; Visit Provider Physician Assistant | DX: M17.11 Unilateral primary osteoarthritis, right knee (principal) | CPT/HCPCS: 20610; J7318 ==

== ENCOUNTER 2023-07-03 09:19 | Outpatient (AMB) | payer MEDICARE, MEDICAID, SELFPAY ==
[2023-07-03 09:36] VITALS: BMI 33.5
--- NOTE | 2023-07-03 09:36 | A.OFFVIS_ITS ---
Intake VS Expanded 07/03/23 09:36 07/05/23 08:49 Height 6 ft 2 in 6 ft 2 in Weight 261 lb 0.437 oz 261 lb BMI 33.5 33.5 Intake Visit Reasons: T2DM/LVM Allergies Penicillins [PENICILLINS] Allergy (Unknown, Verified 07/02/23 09:38) RASH lactose Adverse Reaction (Intermediate, Uncoded 07/04/23 11:00) Abdominal Pain HPI Nutrition Presentation Details Pt presents for MNT for T2DM and obesity. Pt was referred by Dr. 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 Man at [facility] [place] Pt did not bring glucometer to this appt Pt reports doing well, reports he is on Mounjaro for DM and it is helping him lose weight, thus far 5-6 lbs in about 2 months. Pt reports blood glucose are in better control 90-150s. Pt did not bring glucometer/sensor for download typical meal intake 11 am oatmeal/lactose free milk full fat /water or farina or boiled egg with wheat bread, coffee (2 cups in AM and coffee another time 2 pm 1-2 yogurt or1-2 fruit 4 pm rice/beans and meat or potato and c hicken in air fryer, asparagus, broccoli,water 7-8 pm: yogurt or fruit fish: 0-1 month fruits: 2-3 /day ve serving /day dairy: lactose free 2-3 cup/d + cheese fried foods: using air fryer pastries and similar: 1-2/wk beverages: water, coffee, juice physical activity: sedentary - uses cane for support etoh: denies smoking: denies TQO-Pvpnvul-Rs.Jeor Equation Height 6 ft 2 in Weight 261 lb Resting Metabolic Rate 2077.08 Calculated Activity Level Sedentary Calories Needed to Maintain Weight 2492.50 Diagnosis Nutrition problem #1 overweight/obesity As related to (etiology) #1 diagnosis (BMI33.5 on 06/2023 and t2DM) As evidenced by (sign/symptom) #1 high BMI (33.5 on 06/2023. ) Monitoring/Goals Nutrition problem monitoring total PRO intake, total CHO intake and weight Nutrition goal/outcome list 3 CHO foods and list 3 high fiber foods Learning/Education Readiness to learn good Stages of change action Educational materials provided Yes (meal planning) Most Recent Diabetes Results: No Data to Display [facility] Medical History (Updated 06/26/23 @ 11:26 by Cachorro Schaefer) Obesity (BMI 30.0-34.9) Left flank discomfort Upper abdominal pain Constipation by delayed colonic transit GERD (gastroesophageal reflux disease) Elevated cholesterol HTN (hypertension) Bleeding hemorrhoids Diabetes mellitus Asthma Surgical History H/O foot surgery History of esophagogastroduodenoscopy (EGD) History of tonsillectomy History of sinus surgery History of neck surgery History of carpal tunnel release History of release of tendon History of umbilical hernia repair History of colonoscopy Family History Mother History of colon cancer Brother History of liver cancer Maternal Aunt History of colon cancer Father No problems noted. 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 Assessment & Plan Assessment & Plan (1) Diabetes mellitus: Code(s): E11.9 - Type 2 diabetes mellitus without complications Plan: wt: 123 kg, 118kg (06/2023) Est kcal needs as per MSJ: 2500 (40% carb, 30% protein/fat) Est fluid needs as per 30 ml/d: 3500 Est prot per day as per 1 g/kg bw: 118 Recommend fiber intake : 8-10 g per day and gradually increase to 25-28 g per day for women and 35-38 g for men or as tolerated Recommend sodium intake per day : less than 2000 mg Educated patient on: ( R = reviewed V = verbalizes understanding N/R = needs review N/A = not applicable * Food sources of carbohydrate, adequate serving sizes and its role in various health conditions: R * Differences between complex carbohydrates a simple carbohydrates, role of fiber in diet: R * Differences between types of fats and role in diet (mono on saturated fat fatty acids, saturated fatty acids, trans fats): R basic * Food sources of sodium in salt and healthy modifications for heart health in kidney health: R * Vitamins and minerals: R * Healthy plate method concept: R * Physical activity: Benefits a precaution: R * Hypoglycemia protocol (rule of 15): R V - rule of 15 * Dietary prevention of Hyperglycemia: R V (2) Obesity (BMI 30.0-34.9): Code(s): E66.9 - Obesity, unspecified Plan: Reduce pastries to 1-3 x/week, reducing on total carb to 30 g as snack (low in sugar)- read food labels Patient Instructions: Rasheed healthy plate method at dinner, include fish in place of pork twice a week - see meal ideas and portions Have a fruit in place of pastries keep hydrated by having water with meals and snack Engage in physical activity when medically cleared Coding Level of Care Code Nutr Indiv Subseq (41784) Diagnoses Diabetes mellitus E11.9 Obesity (BMI 30.0-34.9) E66.9 Time Spent (min) 30
[2023-07-05 08:49] VITALS: BMI 33.5
== END 2023-07-03 09:57 | disposition home or self-care (01) ==
PROVIDERS: PCP Internal Medicine; Visit Provider Dietitian, Registered
DX: E11.9 Type 2 diabetes mellitus without complications (principal); E66.9 Obesity, unspecified

== ENCOUNTER → 2023-07-03 09:19 | Outpatient (BNVA) | payer MEDICARE, MEDICAID, SELFPAY | PROVIDERS: PCP Internal Medicine; Visit Provider Dietitian, Registered | DX: E11.9 Type 2 diabetes mellitus without complications (principal); E66.9 Obesity, unspecified; Z68.33 Body mass index [BMI] 33.0-33.9, adult | CPT/HCPCS: 97803 ==

== ENCOUNTER 2023-08-07 10:23 | Outpatient (REF) | payer MEDICARE, MEDICAID, SELFPAY ==
[2023-08-07 11:54] LABS: Anion Gap 12 (12-20); Blood Urea Nitrogen 15 mg/dL (9-16); Carbon Dioxide 26 mmol/L (22-29); Chloride 107 mmol/L (96-108); Estimated Glomerular Filt Rate > 60; Potassium 4.2 mmol/L (3.3-5.1); Sodium 141 mmol/L (135-145)
[2023-08-07 14:02] LABS: Creatinine Urine 147.55 mg/dL; Protein/Creatinine Ratio, Ur 0.07 (<0.2); Total Protein Urine Random 10 mg/dL (<12)
== END 2023-08-07 10:24 | disposition home or self-care (01) ==
LOC: HO.LAB 10:23
PROVIDERS: PCP Internal Medicine; Visit Provider Internal Medicine Nephrology
DX: I10 Essential (primary) hypertension (principal)
CPT/HCPCS: 36415; 80051; 82565; 82570; 84156; 84520

== ENCOUNTER 2023-08-14 09:38 | Outpatient (AMB) | payer MEDICARE, MEDICAID, SELFPAY ==
[2023-08-14 10:07] VITALS: BP 110/80; PULSE 92; O2SAT 98; BMI 33.0
--- NOTE | 2023-08-14 10:07 | HO.NEPHOV_ITS ---
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 He had pancreatic cyst as well and had been having yearly MRI. He had s een Dr. Brooks before and is here for me to continue his renal care. He does not have any flank pain, nephrolithiasis, hematuria. He has taken Jardiance before and had urinary symptoms from it and was discontinued. It was replaced by glipizide, the dose of which he has adjusted as he thought he had similar symptoms from it like Jardiance. He is on insulin and his blood sugar is fair. He is also on a Entresto and spironolactone. He denies any chest pain, shortness of breath, proximal nocturnal dyspnea, orthopnea, pedal edema or orthostatic symptoms. He claims to be compliant with medications. He denies taking any nonsteroidal anti-inflammatories. He has no family history of any ESRD or renal transplantation. He denies any significant proteinuria or retinopathy. His last serum creatinine was 0.9. He had high PSA and was due to have prostate biopsy yesterday but was cancelled. His A1c has improved to 6.5. He wants his see a different Urologist [facility] Medical History (Updated 08/14/23 @ 10:37 by Jose Whitney MD) Obesity (BMI 30.0-34.9) Left flank discomfort Upper abdominal pain Constipation by delayed colonic transit GERD (gastroesophageal reflux disease) Elevated cholesterol HTN (hypertension) Bleeding hemorrhoids Diabetes mellitus Asthma Surgical History H/O foot surgery History of esophagogastroduodenoscopy (EGD) History of tonsillectomy History of sinus surgery History of neck surgery History of carpal tunnel release History of release of tendon History of umbilical hernia repair History of colonoscopy Family History Mother History of colon cancer Brother History of liver cancer Maternal Aunt History of colon cancer Father No problems noted. 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 Physical Exam Vital Signs: Last Vital Signs Pulse 92 08/14/23 10:07 BP 110/80 08/14/23 10:07 Pulse Ox 98 08/14/23 10:07 Oxygen Delivery Method Room Air 08/14/23 10:07 BMI result Body Mass Index 33.0 Const General: comfortable and no acute distress Orientation/consciousness: patient oriented x3 HEENT Head: Yes normocephalic Mouth: Normal oral and palatal mucosa present Eyes EOM: EOMs intact bilaterally Neck Neck: Yes supple Resp Auscultation: clear to auscultation bilaterally Cardio Jugular venous distension: no JVD Rate: regular rate GI Palpation (GI): Soft to palpation Auscultation: normal bowel sounds General: Yes no CVA tenderness Back/Spine/Pelvis Back: no CVA tenderness Skin General skin exam: no rashes or lesions noted Neuro General: patient oriented x3 and moves all extremities Extrem General: Yes no pedal edema Results Reviewed Nephrology Results: Sodium 141 mmol/L (135-145) 08/07/23 Potassium 4.2 mmol/L (3.3-5.1) 08/07/23 Chloride 107 mmol/L (96-108) 08/07/23 Carbon Dioxide 26 mmol/L (22-29) 08/07/23 BUN 15 mg/dL (9-16) 08/07/23 Creatinine 0.91 mg/dL (0.5-1.4) 08/07/23 Urine Creatinine 147.55 mg/dL 08/07/23 Protein/Creatinin Ratio 0.07 (<0.2) 08/07/23 Assessment & Plan Assessment & Plan (1) Renal cyst: Code(s): N28.1 - Cyst of kidney, acquired Category: Medical (2) HTN (hypertension): Code(s): I10 - Essential (primary) hypertension Category: Medical Qualifiers: Hypertension type: primary hypertension Qualified Code(s): I10 - Essential (primary) hypertension (3) High prostate specific antigen (PSA): Code(s): R97.20 - Elevated prostate specific antigen [PSA] Category: Medical Plan Elissa has longstanding hypertension and is on multiple antihypertensive medications. He had been on losartan in the past which was switched to Entresto and spironolactone by Dr. Campa . He needs to lose weight. He needs to cut back sodium in the diet. He denied any cardiomyopathy. He has renal cysts for long time which has been followed by yearly imaging when he gets the scanned for pancreatic cyst. He is not known to have any significant proteinuria. He had biopsy of the renal lesions which were unremarkable as per the patient. I ordered blood work and urine studies. I asked him to check his blood pressure at home and keep a log of it. He likely will need adjustment of his blood pressure medications which I plan to do at the next visit based on evolving data. I referred him to a different Urologist as per patient request ( High PSA- was goint to have prostate biopsy yesterday( patient going to have records retrieved from the old office ). Answered all questions. Follow-up given. Orders: Orders Blood Urea Nitrogen Today I10 - Essential (primary) hypertension, N28.1 - Cyst of kidney, acquired, R97.20 - Elevated prostate specific antigen [PSA] Calcium Today I10 - Essential (primary) hypertension, N28.1 - Cyst of kidney, acquired, R97.20 - Elevated prostate specific antigen [PSA] Protein Creatinine Ratio, Ur Today I10 - Essential (primary) hypertension, N28.1 - Cyst of kidney, acquired, R97.20 - Elevated prostate specific antigen [PSA] Creatinine Today I10 - Essential (primary) hypertension, N28.1 - Cyst of kidney, acquired, R97.20 - Elevated prostate specific antigen [PSA] Electrolytes Today I10 - Essential (primary) hypertension, N28.1 - Cyst of kidney, acquired, R97.20 - Elevated prostate specific antigen [PSA] Referrals Urology Referral I10 - Essential (primary) hypertension, N28.1 - Cyst of kidney, acquired, R97.20 - Elevated prostate specific antigen [PSA] Coding Level of Care Code Est Pt Level 4 (17194) Diagnoses Renal cyst N28.1 Primary hypertension I10 Hypertension type: primary hypertension High prostate specific antigen (PSA) R97.20
== END 2023-08-14 10:42 | disposition home or self-care (01) ==
PROVIDERS: PCP Internal Medicine; Visit Provider Internal Medicine Nephrology
DX: N28.1 Cyst of kidney, acquired (principal); I10 Essential (primary) hypertension; R97.20 Elevated prostate specific antigen [PSA]
CPT/HCPCS: 99214

== ENCOUNTER → 2023-08-14 09:38 | Outpatient (BNVA) | payer MEDICARE, MEDICAID, SELFPAY | PROVIDERS: PCP Internal Medicine; Visit Provider Internal Medicine Nephrology | DX: N28.1 Cyst of kidney, acquired (principal); I10 Essential (primary) hypertension; R97.20 Elevated prostate specific antigen [PSA] | CPT/HCPCS: 99212 ==

== ENCOUNTER 2023-09-26 08:28 | Outpatient (AMB) | payer MEDICARE, MEDICAID, SELFPAY ==
--- NOTE | 2023-09-26 08:34 | A.OFFVIS_ITS ---
VS Expanded 09/26/23 08:35 09/26/23 08:54 Height 6 ft 2 in 6 ft 2 in Weight 261 lb 14.546 oz 262 lb BMI 33.6 33.6 Intake Visit Reasons: t2dm Allergies Penicillins [PENICILLINS] Allergy (Unknown, Verified 08/14/23 10:11) RASH lactose Adverse Reaction (Intermediate, Uncoded 07/04/23 11:00) Abdominal Pain Nutrition Presentation Details: Pt presents for MNT f/u for T2DM Pt brought embrace talk glucometer - reports freestyle sensors were not providing accurate information - Per glucometer 7d BG average at 106 mg/dl, 14 d average at 118 mg/dl and 30 d average 124 mg/dl Pt reports working on diet modifications, following RFMicron plate method Reports reducing on sugars (pastries/reg soda and the like) Including fruits: 3-4 /day Vegetables: 4 serving/d dairy: 3 serving/d protein : 4-6 oz 3 x/day , including fish 2 times /wk Pt reports taking Vit D, multivitamin,omega 3 /day walking : 30 min daily , and sometimes twice a day water: 48 oz /day denies constipation ,diarrhea, vomiting Reports feeling well, no concerns expressed Pt reports tolerating oatmilk better than lactose becki milk BS Monitoring Most Recent Diabetes Results: Creatinine 0.91 mg/dL (0.5-1.4) 08/07/23 Blood Urea Nitrogen 15 mg/dL (9-16) 08/07/23 Sodium 141 mmol/L (135-145) 08/07/23 Potassium 4.2 mmol/L (3.3-5.1) 08/07/23 Chloride 107 mmol/L (96-108) 08/07/23 Carbon Dioxide 26 mmol/L (22-29) 08/07/23 XXP-[id number]-Qc.Jeor Equation Height: 6 ft 2 in Weight: 262 lb Resting Metabolic Rate: 2081.61 Calculated Activity Level: Mild Activity Calories Needed to Maintain Weight: 2862.21 [facility] Medical History (Updated 08/14/23 @ 10:37 by Jose Whitney MD) Obesity (BMI 30.0-34.9) Left flank discomfort Upper abdominal pain Constipation by delayed colonic transit GERD (gastroesophageal reflux disease) Elevated cholesterol HTN (hypertension) Bleeding hemorrhoids Diabetes mellitus Asthma Surgical History H/O foot surgery History of esophagogastroduodenoscopy (EGD) History of tonsillectomy History of sinus surgery History of neck surgery History of carpal tunnel release History of release of tendon History of umbilical hernia repair History of colonoscopy Family History Mother History of colon cancer Brother History of liver cancer Maternal Aunt History of colon cancer Father No problems noted. 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 Assessment & Plan Assessment & Plan (1) Diabetes mellitus: Code(s): E11.9 - Type 2 diabetes mellitus without complications Category: Medical Plan: wt: 123 kg, 118kg (06/2023), 119kg (09/2023) Est kcal needs as per MSJ: 2500 (40% carb, 30% protein/fat) Est fluid needs as per 30 ml/d: 3500 Est prot per day as per 1 g/kg bw: 118 Recommend fiber intake : 8-10 g per day and gradually increase to 25-28 g per day for women and 35-38 g for men or as tolerated Recommend sodium intake per day : less than 2000 mg Educated patient on: ( R = reviewed V = verbalizes understanding N/R = needs review N/A = not applicable * Food sources of carbohydrate, adequate serving sizes and its role in various h ealth conditions: R * Differences between complex carbohydrates a simple carbohydrates, role of fiber in diet: R * Differences between types of fats and role in diet (mono on saturated fat fatty acids, saturated fatty acids, trans fats): R basic * Food sources of sodium in salt and healthy modifications for heart health in kidney health: R * Vitamins and minerals: R * Healthy plate method concept: R , V * Physical activity: Benefits a precaution: R * Hypoglycemia protocol (rule of 15): R V - rule of 15 * Dietary prevention of Hyperglycemia: R V (2) Obesity (BMI 30.0-34.9): Code(s): E66.9 - Obesity, unspecified Category: Medical Plan: Reduce pastries to 1-3 x/week, reducing on total carb to 30 g as snack (low in sugar)- read food labels Patient Instructions: Continue working on following healthy plate method Keep hydrated by having water with meals/snacks Continue working on reducing highly processed foods/fried foods , choose foods baked, steamed Coding Level of Care Code Nutr Indiv Subseq (63507) Diagnoses Diabetes mellitus E11.9 Obesity (BMI 30.0-34.9) E66.9 Time Spent (min) 30
[2023-09-26 08:35] VITALS: BMI 33.6
[2023-09-26 08:54] VITALS: BMI 33.6
== END 2023-09-26 09:01 | disposition home or self-care (01) ==
PROVIDERS: PCP Internal Medicine; Visit Provider Dietitian, Registered
DX: E11.9 Type 2 diabetes mellitus without complications (principal); E66.9 Obesity, unspecified

== ENCOUNTER → 2023-09-26 08:28 | Outpatient (BNVA) | payer MEDICARE, MEDICAID, SELFPAY | PROVIDERS: PCP Internal Medicine; Visit Provider Dietitian, Registered | DX: E11.9 Type 2 diabetes mellitus without complications (principal); E66.9 Obesity, unspecified; Z68.33 Body mass index [BMI] 33.0-33.9, adult; Z71.3 Dietary counseling and surveillance | CPT/HCPCS: 97803 ==

== ENCOUNTER 2023-10-01 13:15 | Outpatient (AMB) | payer MEDICARE, MEDICAID, SELFPAY ==
--- NOTE | 2023-10-01 13:25 | A.OFFVIS_ITS ---
Intake Visit Reasons: Elev PSA BPH w/LUTS/testicuction/2nd opinion Intake Note: NEW Patient presents today to established treatment for Elevated PSA, LUTS, ED patient looking for a 2nd opinion: Meds- None Allergies to Antibiotic- No Known Allergies Blood Thinner- None Post Void Residual: 47 mL Hand Stoner Required: Yes Hand Stoner Language: Window Dresser Name: John [id number] - Video Information Interpreted: non-clinical & clinical Accompanied by: Self / Same As Patient Allergies Penicillins [PENICILLINS] Allergy (Unknown, Verified 10/01/23 13:43) RASH lactose Adverse Reaction (Intermediate, Uncoded 10/01/23 13:43) Abdominal Pain Medication List - Last Reconciled 10/01/23 by Stephanie Flowers MD albuterol sulfate 90 mcg/actuation 2 puffs inhalation Q4H PRN alprazolam 1 tab PO BID PRN aspirin (Aspirin Childrens) 81 mg PO DAILY atorvastatin (Lipitor) 40 mg PO BEDTIME blood sugar diagnostic (FreeStyle Lite Strips) As directed brimonidine 0.15% 1 drp ophthalmic (eye) Q8H bupropion HCl XL 300 mg PO DAILY carvedilol 6.25 mg PO BID cholecalciferol (vitamin D3) 25 mcg PO DAILY duloxetine 60 mg PO DAILY finasteride (Proscar) 5 mg PO DAILY 90 days fluticasone propionate 110 mcg/actuation (Flovent HFA) 2 puffs inhalation BID hydrocortisone 2.5% (Procto-Med HC) 1 appl DC BID-QID PRN ibuprofen 800 mg PO Q8H PRN 30 days insulin glargine U-300 conc (Toujeo Max U-300 SoloStar) 70 units subcut DAILY insulin lispro 1 sliding scale dose subcut USEASDIRECTD ketotifen fumarate 0.025%(0.035%) 1 drp ophthalmic (eye) BID latanoprost 0.005% 1 drp ophthalmic (eye) BEDTIME levocetirizine 5 mg PO DAILY linaclotide (Linzess) 290 mcg PO DAILY PRN magnesium oxide 400 mg PO DAILY metformin ER 750 mg PO DAILY methadone 10 mg PO TID PRN metoclopramide HCl 10 mg PO TID montelukast (Singulair) 10 mg PO DAILY multivitamin with folic acid 400 mcg (Tab-A-Kelsie) 1 tab PO DAILY naloxone 4 mg/actuation (Narcan) 1 spray intranasal ondansetron 4 mg PO Q8H PRN 3 days pantoprazole 40 mg PO BID pen needle, diabetic (UltiCare Pen Needle) As directed pen needle, diabetic (Comfort EZ Pen [place]) As directed prazosin 2 mg PO BEDTIME prednisone 20 mg PO DAILY 7 days sacubitril-valsartan 49-51 mg (Entresto) 1 tab PO BID spironolactone 25 mg PO DAILY tamsulosin 1 tab PO BEDTIME testosterone enanthate 150 mg IM Q2W tirzepatide (Mounjaro) 10 mg subcut QWEEK tizanidine 4 mg PO TID PRN zolpidem 10 mg PO BEDTIME PRN HPI Comments Details: Elissa is a 58-year-old male who is here for new patient visit. The patient is Sammarinese-speaking. Certified stock controller service used during this visit. Past medical history diabetes, he is on testosterone replacement, he states his PCP prescribes his testosterone. He was followed by [facility] for BPH. He had a recent prostate biopsy on 09/18/2023 due to elevated PSA of 5.3. Review of pathology 12 biopsies were done all came back benign prostatic tissue. The patient has been on tamsulosin 0.4 mg. I have discussed trial of Proscar 5 mg daily. The patient asked about [id number] supplements that may be helpful. I discussed use of saw palmetto. Bladder scan PVR 47 mL. Will continue to monitor PSA. Will check a renal bladder ultrasound. Follow-up in 6 months. [facility] Medical History Obesity (BMI 30.0-34.9) Left flank discomfort Upper abdominal pain Constipation by delayed colonic transit GERD (gastroesophageal reflux disease) Elevated cholesterol HTN (hypertension) Bleeding hemorrhoids Diabetes mellitus Asthma Surgical History H/O foot surgery History of esophagogastroduodenoscopy (EGD) History of tonsillectomy History of sinus surgery History of neck surgery History of carpal tunnel release History of release of tendon History of umbilical hernia repair History of colonoscopy Family History Mother History of colon cancer Brother History of liver cancer Maternal Aunt History of colon cancer Father No problems noted. 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 Review of Systems Const All systems reviewed & are unremarkable except as noted in HPI and below Reports no additional complaints Eyes Reports no additional complaints ENT Reports no additional complaints Card Reports no additional complaints Resp Reports no additional complaints GI Reports no additional complaints Reports as per HPI Musc Reports no additional complaints Skin/Breast Reports system reviewed and no additional complaints, except as documented Neuro Reports no additional complaints Psych Reports no additional complaints Endo Reports no additional complaints Abdi/Lymph Reports no additional complaints Aller/Immun Reports no additional complaints Physical Exam Const General: healthy appearing, no acute distress and well developed Orientation/consciousness: patient oriented x3 HEENT Head: Yes normocephalic and Yes atraumatic Eyes Conjunctivae: conjunctivae normal Neck Neck: Yes normal visual inspection Chest Chest palpation & inspection: normal inspection of the chest Resp Effort & Inspection: normal respiratory effort Cardio Rate: regular rate GI Inspection: Yes normal to inspection Palpation (GI): Soft to palpation Skin General skin exam: no rashes or lesions noted Neuro General: patient oriented x3 Extrem General: No pedal edema Psych Appearance: grossly normal Affect: normal affect Office Procedures Post Void Residual Post Residual Void Post Void Residual (PVR): 47 [id number] Void Residual by ultrasound Results AMB Urinalysis, Automated UA Leukoctes 0 Sheryl/uL Last Edit by CADEN Gordon on 10/01/23 13:45 UA Nitrite Negative Last Edit by CADEN Gordon on 10/01/23 13:45 UA Urobilinogen 0.2 mg/dL Last Edit by CADEN Gordon on 10/01/23 13:4 5 UA Protein 0 mg/dL Last Edit by Zac Lopes Dayo on 10/01/23 13:45 UA pH 6.0 Last Edit by Zac Lopes Dayo on 10/01/23 13:45 UA Blood 200 Bonifacio/uL Last Edit by Zac Lopes [facility] on 10/01/23 13:45 3+ Zac Lopes 10/01/23 13:45 UA Specific [place] 1.010 Last Edit by CADEN Gordon on 10/01/23 13: 45 UA Ketone Negative Last Edit by CADEN Gordon on 10/01/23 13:45 UA Bilirubin 0 mg/dL Last Edit by CADEN Gordon on 10/01/23 13:45 UA Glucose 0 mg/dL Last Edit by Zac Lopes Dayo on 10/01/23 13:45 Results Reviewed Results Reviewed: Laboratory Last Values Urine pH (Auto) 6.0 10/01/23 13:42 Specific [place] (Auto) 1.010 10/01/23 13:42 Urine Protein (Auto) 0 mg/dL 10/01/23 13:42 Glucose (UA)(Auto) 0 mg/dL 10/01/23 13:42 Urine Ketones (Auto) Negative 10/01/23 13:42 Urine Blood (Auto) 200 Bonifacio/uL 10/01/23 13:42 Urine Nitrite (Auto) Negative 10/01/23 13:42 Urine Bilirubin (Auto) 0 mg/dL 10/01/23 13:42 Urine Urobilinogen (Auto) 0.2 mg/dL 10/01/23 13:42 Leukocyte Esterase (Auto) 0 Sheryl/uL 10/01/23 13:42 Assessment & Plan Assessment & Plan (1) BPH loc w urin obs/LUTS: Code(s): N40.1 - Benign prostatic hyperplasia with lower urinary tract symptoms Category: Medical (2) BPH with elevated PSA: Code(s): N40.0 - Benign prostatic hyperplasia without lower urinary tract symptoms; R97.20 - Elevated prostate specific antigen [PSA] Category: Medical Plan Continue tamsulosin 0.4 mg daily, start Proscar 5 mg daily. Will continue to monitor PSA. Will check a renal bladder ultrasound. Follow-up in 6 months. Orders: Orders AMB Urinalysis Automated Today Z13.9 - Encounter for screening, unspecified PSA,Total (Free>4and<10) 5 Months N40.0 - Benign prostatic hyperplasia without lower urinary tract symptoms, N40.1 - Benign prostatic hyperplasia with lower urinary tract symptoms, R97.20 - Elevated prostate specific antigen [PSA] US retroperitoneal comp 3 Months N40.0 - Benign prostatic hyperplasia without lower urinary tract symptoms, R97.20 - Elevated prostate specific antigen [PSA] AMB Post Void Residual by ultrasound Today N39.8 - Other specified disorders of urinary system Medications: New finasteride (Proscar) 5 mg PO DAILY 90 days 90 tabs 3RF Changed From tamsulosin 1 tab PO BEDTIME To tamsulosin 0.4 mg PO BEDTIME 90 caps 2RF Patient Instructions: The patient had an opportunity to ask questions regarding treatment plan. The patient expressed understanding and agreement with the above treatment plan. The patient is aware they should contact our office by phone for worsening of their current condition or the appearance of new symptoms. Compliance is encouraged with any medications and followup testing that is ordered. It is a privilege to be allowed the opportunity to participate in the urologic care of your patient. If you have any questions or concerns regarding treatment for the above conditions please do not hesitate to contact me. The office telephone contact is [phone]. This note is constructed in part using voice recognition software. While every effort has been made to ensure accuracy millstone cleaner errors may have been included. Yours sincerely, Stephanie Flowers MD Coding Level of Care Code New Pt Level 4 (25058) Diagnoses BPH loc w urin obs/LUTS N40.1 BPH with elevated PSA N40.0; R97.20 CPT Codes Post Residual Void - PVR CPT Code: 60990-Kshn Void Residual by ultrasound ([id number])
== END 2023-10-01 14:02 | disposition home or self-care (01) ==
PROVIDERS: PCP Internal Medicine; Visit Provider Urology
DX: N40.1 Benign prostatic hyperplasia with lower urinary tract symptoms (principal); N40.0 Benign prostatic hyperplasia without lower urinary tract symptoms; R97.20 Elevated prostate specific antigen [PSA]; Z13.9 Encounter for screening, unspecified
CPT/HCPCS: 99204

== ENCOUNTER → 2023-10-01 13:15 | Outpatient (BNVA) | payer MEDICARE, MEDICAID, SELFPAY | PROVIDERS: PCP Internal Medicine; Visit Provider Urology | DX: N40.1 Benign prostatic hyperplasia with lower urinary tract symptoms (principal); R97.20 Elevated prostate specific antigen [PSA] | CPT/HCPCS: 51798; 81003; 99202 ==

== ENCOUNTER 2023-10-10 07:59 | Emergency (ER) | payer MEDICARE, MEDICAID, SELFPAY ==
--- NOTE | ~2023-10-10 | XR_ITS ---
EXAMINATION: XR LUMBOSACRAL SPINE CLINICAL INFORMATION: Back pain COMPARISON: None available. TECHNIQUE: Three views of the lumbosacral spine. FINDINGS: There is straightening of lumbar lordosis with well aligned vertebral bodies and narrowing of L4-L5 intervertebral disc space. There is minimal marginal spurring. There is no spondylolysis or spondylolisthesis. Pedicles are preserved. There are 5 not ribs bearing vertebral bodies and lumbar spine. Soft tissues unremarkable. XR/XR lumbar spine 2-3V IMPRESSION: Mild degenerative changes at the level of L4-L5.
[2023-10-10 08:01] VITALS: BP 130/77; PULSE 87; RESP 18; TEMP 36.3; O2SAT 97; BMI 33.3
--- NOTE | 2023-10-10 11:41 | ED.BACK ---
HPI - Back Pain/Injury General Chief Complaint: Back Pain/Injury Stated Complaint: Pain R side Time Seen by Provider: 10/10/23 08:07 Source: patient and RN notes reviewed Mode of arrival: ambulatory Limitations: no limitations History of Present Illness ED Provider: Jocelyne Guadalupe PA-C HPI Narrative: This is a 58 year old male, with a history of hypertension, sciatica, diabetes, and asthma, who presents emergency department with complaints of acute on chronic right low back pain x 4 days. Patient states that he has had a constant low back pain that worsens with movement, and with ambulation. Patient denies any recent trauma, injury, heavy lifting or falls. Patient states that he has a history of sciatica and symptoms feel similar. He has had no saddle anesthesia. He denies any urinary or bowel retention or incontinence. Denies any fevers, chills, abdominal pain, shortness of breath, nausea, vomiting or diarrhea. He has been taking ibuprofen as well as muscle relaxants at home without any relief. No other complaints or concerns at this time. MD elicited complaint: back pain Pertinent past history: prior back pain Onset (ago): day(s) Timing: constant and progressively worsening Severity: moderate Similar Symptoms Previously: Yes Quality: burning and tingling Location: lumbar spine and right lower back Radiation: none Exacerbating factors: none Relieving factors: none Associated symptoms: denies other symptoms Treatments prior to arrival: NSAIDS and other medications (Flexeril) Work related injury: No Related Data Home Medications ?Medication ?Instructions ?Recorded ?Confirmed aspirin 81 mg chewable tablet 81 mg PO DAILY 02/19/20 10/01/23 (Aspirin Childrens) atorvastatin 40 mg tablet (Lipitor) 40 mg PO BEDTIME 02/19/20 10/01/23 methadone 10 mg tablet 10 mg PO TID PRN Pain 02/19/20 10/01/23 montelukast 10 mg tablet 10 mg PO DAILY 02/19/20 10/01/23 (Singulair) duloxetine 60 mg capsule,delayed 60 mg PO DAILY 09/10/20 10/01/23 release zolpidem 10 mg tablet 10 mg PO BEDTIME PRN insomnia 08/12/21 10/01/23 albuterol sulfate 90 mcg/actuation 2 puff inhalation Q4H PRN Wheezing 10/27/21 10/01/23 aerosol inhaler alprazolam 2 mg tablet 1 tab PO BID PRN anxiety 10/27/21 10/01/23 latanoprost 0.005 % eye drops 1 drp ophthalmic (eye) BEDTIME 10/27/21 10/01/23 multivitamin with folic acid 400 1 tab PO DAILY 10/27/21 10/01/23 mcg tablet (Tab-A-Kelsie) naloxone 4 mg/actuation nasal 1 spray intranasal 10/27/21 10/01/23 spray (Narcan) blood sugar diagnostic (FreeStyle #10 ea 07/10/22 10/01/23 Lite Strips) magnesium oxide 400 mg (241.3 mg 400 mg PO DAILY 07/10/22 10/01/23 magnesium) tablet metformin 750 mg tablet,extended 750 mg PO DAILY 07/10/22 10/01/23 release 24 hr pantoprazole 40 mg tablet,delayed 40 mg PO BID 07/10/22 10/01/23 release pen needle, diabetic 33 gauge x #100 ea 07/10/22 10/01/2304/19 (Comfort EZ Pen [place]) testosterone enanthate 200 mg/mL 150 mg IM Q2W 07/10/22 10/01/23 intramuscular oil tizanidine 4 mg tablet 4 mg PO TID PRN Pain 07/10/22 10/01/23 bupropion HCl 300 mg 24 hr tablet, 300 mg PO DAILY 12/11/22 10/01/23 extended release fluticasone propionate 110 2 puff inhalation BID 12/11/22 10/01/23 mcg/actuation HFA aerosol inhaler (Flovent HFA) linaclotide 290 mcg capsule 290 mcg PO DAILY PRN Constipation 12/11/22 10/01/23 (Linzess) pen needle, diabetic 31 gauge x #1,200 ea 12/11/22 10/01/2308/29 (UltiCare Pen Needle) levocetirizine 5 mg tablet 5 mg PO DAILY 01/25/23 10/01/23 spironolactone 25 mg tablet 25 mg PO DAILY 01/25/23 10/01/23 carvedilol 6.25 mg tablet 6.25 mg PO BID 04/11/23 10/01/23 sacubitril 49 mg-valsartan 51 mg 1 tab PO BID 04/11/23 10/01/23 tablet (Entresto) brimonidine 0.15 % eye drops 1 drp ophthalmic (eye) Q8H 05/08/23 10/01/23 cholecalciferol (vitamin D3) 25 25 mcg PO DAILY 05/08/23 10/01/23 mcg (1,000 unit) capsule insulin lispro 100 unit/mL 1 sliding scale dose subcut 05/08/23 10/01/23 subcutaneous pen USEASDIRECTD ketotifen fumarate 0.025 % (0.035 1 drp ophthalmic (eye) BID 05/08/23 10/01/23 %) eye drops metoclopramide HCl 10 mg tablet 10 mg PO TID 05/08/23 10/01/23 prazosin 1 mg capsule 2 mg PO BEDTIME 05/08/23 10/01/23 insulin glargine U-300 conc 300 70 unit subcut DAILY 08/14/23 10/01/23 unit/mL (3 mL) subcutaneous pen (TouReal Food Blends Max U-300 SoloStar) tirzepatide 7.5 mg/0.5 mL 10 mg subcut QWEEK 08/14/23 10/01/23 subcutaneous pen injector (Tamela) Previous Rx's ?Medication ?Instructions ?Recorded hydrocortisone 2.5 % topical cream 1 appl ID BID-QID PRN hemorrhoids 07/09/20 with perineal applicator #30 grams (Procto-Med ) ondansetron 4 mg disintegrating 4 mg PO Q8H PRN nausea and 02/02/23 tablet vomiting 3 days #10 tabs prednisone 20 mg tablet 20 mg PO DAILY 7 days #7 tabs 04/21/23 ibuprofen 800 mg tablet 800 mg PO Q8H PRN pain 30 days #90 07/03/23 tabs finasteride 5 mg tablet (Proscar) 5 mg PO DAILY 90 days #90 tabs 10/01/23 tamsulosin 0.4 mg capsule 0.4 mg PO BEDTIME #90 caps 10/01/23 Allergies Allergy/AdvReac Type Severity Reaction Status Date / Time Penicillins [PENICILLINS] Allergy Unknown RASH Verified 10/10/23 08:03 lactose AdvReac Intermediate Abdominal Uncoded 10/10/23 08:03 Pain Review of Systems Review of Systems: Yes all other systems are reviewed and are negative Constitutional: Constitutional: Reports as per HPI PMFSH Past Medical History Attestation statement: The following information was validated with the patient. Medical History Obesity (BMI 30.0-34.9) Left flank discomfort Upper abdominal pain Constipation by delayed colonic transit GERD (gastroesophageal reflux disease) Elevated cholesterol HTN (hypertension) Bleeding hemorrhoids Diabetes mellitus Asthma Surgical History H/O foot surgery History of esophagogastroduodenoscopy (EGD) History of tonsillectomy History of sinus surgery History of neck surgery History of carpal tunnel release History of release of tendon History of umbilical hernia repair History of colonoscopy Family History Family History Mother History of colon cancer Brother History of liver cancer Maternal Aunt History of colon cancer Father No problems noted. 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 Physical Exam Vital Signs: Vital Signs: Last Vital Signs Temp 97.3 F 10/10/23 08:01 Pulse 87 10/10/23 08:01 Resp 18 10/10/23 08:01 BP 130/77 10/10/23 08:01 Pulse Ox 97 10/10/23 08:01 O2 Del Method Room Air 10/10/23 08:01 BMI result Body Mass Index 33.3 Const: General: cooperative, comfortable and no acute distress Orientation/consciousness: patient oriented x3 Limitations: no limitations HEENT: Head: Yes normal to inspection, Yes normocephalic and Yes atraumatic Ears: hearing grossly normal bilaterally General nose exam: Normal external nose present Face and sinus: Yes normal facial exam Mouth: Normal oral and palatal mucosa present, oropharynx normal and moist mucous membranes Throat: Yes posterior oropharynx normal Eyes: General: appearance normal, both eyes and all related structures Eyelids: Yes eyelids normal Conjunctivae: conjunctivae normal Sclerae: sclerae normal Pupils: Equal, round and reactive pupils present EOM: EOMs intact bilaterally Neck: Neck: Yes normal visual inspection, Yes full ROM and Yes no lymphadenopathy Lymphatic: no lymphadenopathy noted Chest: Chest palpation & inspection: normal inspection of the chest Resp: Effort & Inspection: normal respiratory effort and able to speak in complete sentences Auscultation: clear to auscultation bilaterally, no crackles, no rales, no rhonchi and no wheezes Cardio: Rate: regular rate Rhythm: regular rhythm Heart sounds: S1 normal heart sound present and S2 normal heart sound present GI: Other: Abdomen is soft, nontender, nondistended Inspection: Yes normal to inspection Back/Spine/Pelvis: Other: Midline spine tenderness on examination, with right SI joint tenderness palpation. Strength 5/5 in lower extremities. Distal sensation circulation intact. Positive straight leg raise on the right Skin: General skin exam: no rashes or lesions noted Trauma: no lacerations or abrasions Wounds: no wounds Neuro: General: patient oriented x3 and moves all extremities Cranial nerves: Yes Equal, round and reactive pupils present Extrem: General: Yes normal to inspection Right upper extremity: normal to inspection Left upper extremity: normal to inspection Right lower extremity: normal to inspection Left lower extremity: normal to inspection Course Reevaluation(s) Reevaluation #1: X-rays were pending, and they finally returned, showing some L4-L5 degenerative changes. I went to go to re-evaluate patient and inform him of his results as well as discuss discharge instructions and treatment plan however patient appears to have left without completing treatment as he has no longer present in the room. Spoke with nurse who is taking care of him and patient has not been seen. Time: 11:59 Medical Decision Making Medical Decision Making [facility] Narrative: This is a 58-year-old male who presents emergency department with complaints of acute on chronic low back pain x4 days. On arrival, vital signs within normal limits. He is under no acute distress. Patient has had low back pain with no recent injury or trauma. Pain radiates down his right leg. He has been taking [id number] ibuprofen as well as prescribed muscle relaxants without any relief. On examination, patient has tenderness to palpation along the lumbar midline spine as well as the right SI joint. He has a positive straight leg raise. This patient presents with back pain most consistent with lumbar radiculopathy. Differential diagnoses includes lumbago versus musculoskeletal spasm / strain versus sciatica. No back pain red flags on history or physical. Presentation not consistent with malignancy (lack of history of malignancy, lack of B symptoms), fracture (no trauma, no bony tenderness to palpation), cauda equina syndrome (no bowel or urinary incontinence/retention, no saddle anesthesia, no distal weakness), pyelonephritis (afebrile, no CVAT, no urinary symptoms). Given the clinical picture, and that we have no x-rays on his record and he has midline spine tenderness, will obtain x-rays to rule out any bony abnormality. Differential Diagnosis Differential Diagnoses: The differential diagnosis associated with the presentation includes See above Admission/Observation Consideration of admission/observation: Escalation of care including admission/observation considered Escalation of care including admission/observation considered however given workup today not warranted at this time. Radiology Impression Discussion of test interpretation with radiology: I have reviewed the radiologist's reading. Radiologist Impression: XR/XR lumbar spine 2-3V IMPRESSION: Mild degenerative changes at the level of L4-L5. Dictated By: Vandana Cook MD Discharge Plan Discharge Clinical Impression: Lumbar radiculopathy, right Patient Disposition: Left W/O Completing Treatment Prescriptions: No Action ibuprofen 800 mg tablet 800 mg PO Q8H PRN (Reason: pain) 30 Days Qty: 90 3RF latanoprost 0.005 % drops 1 drp ophthalmic (eye) BEDTIME alprazolam 2 mg tablet 1 tab PO BID PRN (Reason: anxiety) albuterol sulfate 90 mcg/actuation HFA aerosol inhaler 2 puff inhalation Q4H PRN (Reason: Wheezing) multivitamin with folic acid [Tab-A-Kelsie] 400 mcg tablet 1 tab PO DAILY naloxone [Narcan] 4 mg/actuation spray,non-aerosol 1 spray intranasal ondansetron 4 mg tablet,disintegrating 4 mg PO Q8H PRN (Reason: nausea and vomiting) 3 Days Qty: 10 0RF prednisone 20 mg tablet 20 mg PO DAILY 7 Days Qty: 7 0RF atorvastatin [Lipitor] 40 mg tablet 40 mg PO BEDTIME montelukast [Singulair] 10 mg tablet 10 mg PO DAILY methadone 10 mg tablet 10 mg PO TID PRN (Reason: Pain) aspirin [Aspirin Childrens] 81 mg tablet,chewable 81 mg PO DAILY duloxetine 60 mg capsule,delayed release(DR/EC) 60 mg PO DAILY hydrocortisone [Procto-Med HC] 2.5 % cream with perineal applicator 1 appl ID BID-QID PRN (Reason: hemorrhoids) Qty: 30 0RF zolpidem 10 mg tablet 10 mg PO BEDTIME PRN (Reason: insomnia) pantoprazole 40 mg tablet,delayed release (DR/EC) 40 mg PO BID (DME) FreeStyle Lite Strips Strip See Rx Instructions .ROUTE TID Qty: 10 Rx Instructions: As directed (DME) pen needle, diabetic [Comfort EZ Pen [place]] 33 gauge x 1/4 needle See Rx Instructions .ROUTE .MEDSUPPLY Qty: 100 Rx Instructions: As directed metformin 750 mg tablet extended release 24 hr 750 mg PO DAILY tizanidine 4 mg tablet 4 mg PO TID PRN (Reason: Pain) magnesium oxide 400 mg (241.3 mg magnesium) tablet 400 mg PO DAILY testosterone enanthate 200 mg/mL oil 150 mg IM Q2W (DME) pen needle, diabetic [UltiCare Pen Needle] 31 gauge x 5/16 needle See Rx Instructions .ROUTE .MEDSUPPLY Qty: 1200 Rx Instructions: As directed fluticasone propionate [Flovent HFA] 110 mcg/actuation HFA aerosol inhaler 2 puff inhalation BID bupropion HCl 300 mg tablet extended release 24 hr 300 mg PO DAILY Linzess 290 mcg capsule 290 mcg PO DAILY PRN (Reason: Constipation) levocetirizine 5 mg tablet 5 mg PO DAILY spironolactone 25 mg tablet 25 mg PO DAILY carvedilol 6.25 mg tablet 6.25 mg PO BID Rx Instructions: must administer with a meal/food Entresto 49-51 mg tablet 1 tab PO BID Toujeo Max U-300 SoloStar 300 unit/mL (3 mL) insulin pen 70 unit subcut DAILY Mounjaro 7.5 mg/0.5 mL pen injector 10 mg subcut QWEEK finasteride [Proscar] 5 mg tablet 5 mg PO DAILY 90 Days Qty: 90 3RF tamsulosin 0.4 mg capsule 0.4 mg PO BEDTIME Qty: 90 2RF brimonidine 0.15 % drops 1 drp ophthalmic (eye) Q8H prazosin 1 mg capsule 2 mg PO BEDTIME ketotifen fumarate 0.025 % (0.035 %) drops 1 drp ophthalmic (eye) BID Rx Instructions: administer at least 8 hours apart metoclopramide HCl 10 mg tablet 10 mg PO TID insulin lispro 100 unit/mL insulin pen 1 sliding scale dose subcut USEASDIRECTD cholecalciferol (vitamin D3) 25 mcg (1,000 unit) capsule 25 mcg PO DAILY Discharge Date/Time: 10/10/23 11:54
--- OUTSIDE RECORDS SUMMARY | 2023-10-11 08:08 | XMS_ITS | Continuity of Care Document ---
Author Organization [facility] Address [address] [place] [address]- Care Team Providers Care Sewing Techniques Demonstrator Name Role Phone Vamshi Man MD Primary Care Physician Encounter [facility] Date(s): 04/01/23 - 05/01/23 [facility] [address]- [place] Allergies, Adverse Reactions, Alerts Substance Reaction Severity Status Other Food Allergy fresh peaches - itch y mouth, throat and lips swell Active penicillin 1 rash Resolved Latex RASH Active 1rash per mother as child. Did take a penicillin for treatment of H pylori per pt w/o problem. Immunizations Given and Recorded Vaccine Date Status Refusal Reason SARS-CoV-2(COVID-19)mRNA-LNP vac([id number]) 01/30/23 Given influenza virus vaccine, inactivated 01/05/23 Ravindra rded influenza virus vaccine, inactivated 01/20/20 Give n influenza virus vaccine, inactivated 01/24/19 Give n influenza virus vaccine, inactivated 01/11/18 Ravindra rded influenza virus vaccine, inactivated 01/10/17 Give n influenza virus vaccine, inactivated 01/28/16 Ravindra rded influenza virus vaccine, inactivated 1 01/15/16 Re corded influenza virus vaccine, inactivated 2 01/14/15 Re corded influenza virus vaccine, inactivated 3 01/01/14 Gi adrianne influenza virus vaccine, inactivated 4 01/15/13 Gi adrianne influenza virus vaccine, inactivated 5 01/04/12 Gi adrianne influenza virus vaccine, inactivated 6 01/12/11 Gi adrianne influenza virus vaccine, inactivated 7 01/25/10 Gi adrianne influenza virus vaccine, inactivated 8 01/05/09 Gi adrianne influenza virus vaccine, inactivated 03/19/06 Give n [id number] 12y+ bivalent booster vax 02/16/22 Given pneumococcal 20-valent conjugate vaccine 02/16/22 Given Influenza Virus Vaccine (oldterm) 9 01/27/22 Recor ded Influenza Virus Vaccine (oldterm) 01/26/21 Recorde d SARS-CoV-2 mRNA ([id number]) vax 11/11/21 Given SARS-CoV-2 (COVID-19) mRNA BNT-162b2 vac 02/23/21 Given SARS-CoV-2 (COVID-19) mRNA BNT-162b2 vac 10 05/20/20 Recorded SARS-CoV-2 (COVID-19) mRNA BNT-162b2 vac 04/29/20 Recorded zoster vaccine, inactivated 11 02/06/18 Recorded zoster vaccine, inactivated 12, 13 11/26/17 Record ed tetanus/diphtheria/pertussis, acel(Tdap) 14 09/29/17 Recorded tetanus/diphtheria/pertussis, acel(Tdap) 15 01/18/12 Given influ virus vac, H1N1, inactive(oldterm) 16 02/16/09 Given tetanus-diphtheria toxoids (Td) 03/23/05 Given pneumococcal 23-valent vaccine 03/23/05 Given Hepatitis A Adult Vaccine 17 06/02/04 Given Hepatitis A Adult Vaccine 18 02/21/03 Given hepatitis B adult vaccine 19 06/04/03 Given hepatitis B adult vaccine 12/19/02 Given hepatitis B adult vaccine 11/18/02 Given [facility] 3Result Comment: [01/01/2014] ORDERED BY PRISCILLA PFEIFFER MD 4Result Comment: [01/15/2013] ordered by Vamshi Man MD 5Admin Note: VIS 11/08/10 GIVEN 6Admin Note: VIS 11/08/2010 Fluzone given 7Admin Note: ADMINISTERED BY R.N. 8Admin Note: sanofi-pasteur 9Result Comment: pharmacy. Date approximate. Per pt recall. Non in ExtRx or MIIS 10Result Comment: Patient showed RN picture of immunization card 11Location History: [facility] 12Location History: [facility] 13Result Comment: [11/27/2017] REceived at [facility] [place], [place]; ordered by Dr Michael Oliveira 14Location History: Hospital ER 15Admin Note: VIS GIVEN 16Admin Note: Sanofi-Pasteur VIS 02/12/2009 17Admin Note: 2nd 18Admin Note: GIVEN BY RN. 19Admin Note: third Medications 22G or 23G 1.5 inch hypodermic needle 22G or 23G 1.5 inch hypodermic needle, See Instructions, # 4 each, Refills 1, Tot. Refills 1, Maintenance, for testosterone. Use 21G, 22G or 23G needle for injection into abdominal fat, anterior thigh or lateral gluteal muscle, 02/16/22 23:36:00 EDT,... Start Date: 02/16/22 Status: Ordered 3 mL syringe with 0.5-1.5 18G-21G needle 3 mL syringe with 0.5-1.5 18G-21G needle, See Instructions, # 4 each, Refills 1, Tot. Refills 1, Maintenance, for testosterone, withdrawing from vial., 02/16/22 23:36:00 EDT, 18G preferred if available, Supply, 188, cm, 02/16/22 13:07:00 EDT, Height,... Start Date: 02/16/22 Status: Ordered albuterol CFC free 90 mcg/inh inhalation aerosol 2, puffs, By Mouth, Every 4 hours, as needed Start Date: 08/20/18 Status: Ordered Alcohol Wipes See Instructions, # 100 each, Refills 5, Tot. Refills 5, Maintenance, for insulin and glucose testing up to 7x/wk total. Dx: E11, 11/18/20 15:30:00 EDT, Compound, 188, cm, 09/22/20 8:33:00 EDT, Height, 125.2, kg, 06/20/20 14:28:00 EST, Dry Weight Start Date: 11/18/20 Status: Ordered ALPRAZolam [address] Tesha Schwarz, # 60 tablet, 0 Refills, Maintenance, 01/13/15 23:11:48 Start Date: 01/13/15 Status: Ordered Ambien 10 mg oral tablet 10 mg, 1, tablet, By Mouth, Daily at bedtime, PRN as needed for sleep, Dr Tesha Schwarz, 0 Refills Start Date: 12/23/07 Status: Ordered Arnuity Ellipta 100 mcg inhalation powder 1 puffs = 100 mcg, Inhalation, Every 24 hours, # 30 each, 11 Refills, Maintenance, 02/08/23 10:21:00 EDT, Powder, [facility], replaces Flovent due to insurance coverage, 188, cm, 01/30/23 13:26:00 EDT, Height, 126, kg, 01/30/23 13:26:00 EDT,... Start Date: 02/08/23 Status: Ordered Aspirin Low Dose 81 mg oral delayed release tablet 1 tablet, By Mouth, Daily, # 90 tablet, 4 Refills, Maintenance, 03/01/23 17:49:00 EST, [facility], 188, cm, 01/30/23 13:26:00 EDT, Height, 126, kg, 01/30/23 13:26:00 EDT, Dry Weight Start Date: 03/01/23 Status: Ordered atorvastatin 40 mg oral tablet See Instructions, TAKE 1 TABLET BY MOUTH EVERY DAY, # 90 tablet, 0 Refills, Maintenance, 05/01/23 21:18:00 EST, [facility], 188, cm, 04/26/23 13:06:00 EST, Height, 126.09, kg, 04/26/23 13:06:00 EST, Dry Weight Start Date: 05/01/23 Status: Ordered AutoCPAP 9-18 with heated humidification AutoCPAP 9-18 with heated humidification, See Instructions, # 1 each, Refills 0, Tot. Refills 0, Maintenance, use overnight and naps from Regional, 11/04/18 12:28:22 EDT, Compound Start Date: 11/04/18 Status: Ordered brimonidine 0.15% ophthalmic solution 0 Refills, Maintenance, 12/22/21 7:34:00 EDT Start Date: 12/22/21 Status: Ordered buPROPion 300 mg/24 hours (XL) oral tablet, extended release 1 tablet = 300 mg, By Mouth, Daily, Latosha Reyes, Maintenance, 03/14/18 8:20:24 EST, ER Tablet Start Date: 03/14/18 Status: Ordered carvedilol 6.25 mg oral tablet 6.25 mg, 1, tablet, By Mouth, 2 times a day, # 60 tablet, Refills 0, Maintenance, 04/26/23 14:20:00EST, Partial fill upon patient request if the prescription is for a schedule II opioid drug. Start Date: 04/26/23 Status: Ordered clotrimazole 1% topical cream 1 application, Topically, 2 times a day, apply to penile rash, # 30 Gm, 2 Refills, Maintenance, 04/27/22 23:43:00 EST, Cream, [facility], 1 application Topically 2 times a day,Instr:apply to penile rash, 188, cm, 04/27/22 13:44:00 EST, Heigh... Start Date: 04/27/22 Status: Ordered diazepam 10 mg oral tablet See Instructions, PRN, 1 tablet By Mouth 1 hr before MRI, # 1 tablet, Refills 2, Tot. Refills 2, Maintenance, as needed for anxiety, 01/30/23 15:02:00 EDT, Instructions Replace Required Details, Route to Pharmacy Electronically, [facility],... Start Date: 01/30/23 Status: Ordered diclofenac 1% topical gel = 2 Gm, Topically, 4 times a day, PRN for pain, (portuguese) not to exceed: 16 gm/day/joint lower limb8 gm/day/joint of upper limb 32 gm/day may interchange for cream, # 100 Gm, 11 Refills, Maintenance, 04/15/22 13:02:00 EST, Gel, [facility]... Start Date: 04/15/22 Status: Ordered docusate sodium/sennosides 50/8.6mg docusate sodium/sennosides 50/8.6mg, 1-3 tablet, By Mouth, 2 times a day, PRN Constipation, # 100 tablet, Refills 11, Tot. Refills 11, Maintenance, 04/04/23 11:31:00 EST, Compound, 188, cm, 01/30/23 13:26:00 EDT, Height, 126, kg, 01/30/23 13:26:00 EDT... Start Date: 04/04/23 Status: Ordered duloxetine 60 mg oral enteric coated capsule TAKE 1 CAPSULE BY MOUTH ONCE A DAY WITH MEALS Start Date: 05/11/20 Status: Ordered Entresto 49 mg-51 mg oral tablet 1 tablet, By Mouth, 2 times a day, # 60 tablet, Maintenance, 04/26/23 14:22:00 EST, Tablet, Partialfill upon patient request if the prescription is for a schedule II opioid drug. Start Date: 04/26/23 Status: Ordered EpiPen 2-Deejay 0.3 mg injectable kit Maria G Collado/Melissa, 0 Refills, Maintenance, 01/01/16 18:30:41 Start Date: 01/01/16 Status: Ordered fluticasone 50 mcg/inh nasal spray 0 Refills, Maintenance, 05/11/20 16:57:00 EST Start Date: 05/11/20 Status: Ordered Freestyle Tatyana Strandquist Freestyle Tatyana Strandquist, See Instructions, # 1 each, Refills 0, Tot. Refills 0, Maintenance, Type 2 diabetes mellitus on insulin (E11, Z79.4). For use w/ Tatyana sensor, 02/08/23 10:36:00 EDT, Compound,188, cm, 01/30/23 13:26:00 EDT, Height, 126, kg, 10... Start Date: 02/08/23 Status: Ordered Freestyle Tatyana Sensor Freestyle Tatyana Sensor, See Instructions, # 2 each, Refills 5, Tot. Refills 5, Maintenance, Type 2 diabetes mellitus on insulin (E11, Z79.4). For use w/ Tatyana reader. Change every 10-14 days., 04/01/23 22:29:00 EST, Compound, 188, cm, 01/30/23 13:26:0... Start Date: 04/01/23 Status: Ordered Freestyle Lite Monitor See Instructions, # 1 each, Maintenance, Dx: E11 (DM2) (on insulin) Z79.4., 02/16/22 23:40:00 EDT, Compound, 188, cm, 02/16/22 13:07:00 EDT, Height, 122.63, kg, 11/22/21 16:37:00 EDT, Dry Weight Start Date: 02/16/22 Status: Ordered FREESTYLE PHYLLIS LITE FREESTYLE PHYLLIS LITE, See Instructions, # 100 each, 10 Refills, Maintenance, USE UP TO 3X PER DAY NEEDED. DX: E11, 07/06/22 3:56:00 EDT, 188, cm, 05/19/22 10:14:00 EST, Height, 122.63, kg, 11/22/21 16:37:00 EDT, Dry Weight Start Date: 07/06/22 Status: Ordered FREESTYLE PHYLLIS LITE FREESTYLE PHYLLIS LITE, See Instructions, # 100 each, 9 Refills, Maintenance, USE UP TO 3X PER DAY NEEDED. DX: E11, 08/08/22 9:44:00 EDT, 188, cm, 07/18/22 14:01:00 EDT, Height, 122.63, kg, 11/22/21 16:37:00 EDT, Dry Weight Start Date: 08/08/22 Status: Ordered Glucose Monitor See Instructions, PRN, # 1 each, Refills 0, Tot. Refills 0, Maintenance, diabetes mellitus 2, Embrace glucometer. Dx: E11, Z79. 4., diabetes m 2, 08/12/21 11:19:00 EDT, Compound, 188, cm, 07/27/21 8:34:00 EDT, Height, 125.2, kg, 06/20/20 14:28:00 EST,... Start Date: 08/12/21 Status: Ordered Home Blood Pressure Monitor See Instructions, # 1 each, Maintenance, electronic sensor, Hypertension with difficulty to control, 12/22/19 10:32:00 EDT, Compound Start Date: 12/22/19 Status: Ordered Humalog Kwik Pen 100 units/mL subcutaneous injection See Instructions, 10 units Subcutaneous Injection 1-3 times a day before meals., # 15 mL, 11 Refills, Maintenance, 11/28/21 21:27:00 EDT, Solution, [facility], 188, cm, 11/22/21 16:37:00 EDT, Height, 122.63, kg, 11/22/21 16:37:00 EDT, Dry We... Start Date: 11/28/21 Status: Ordered ketotifen 0.025% ophthalmic solution INSTILL 1 DROP INTO AFFECTED EYE TWICE A DAY Dr Poe Start Date: 05/11/20 Status: Ordered Lancets See Instructions, # 100 each, Refills 5, Tot. Refills 5, Maintenance, 3x per day for type 2 diabetes m. Dx: E11., 08/12/21 11:15:00 EDT, Compound, 188, cm, 07/27/21 8:34:00 EDT, Height, 125.2, kg, 06/20/20 14:28:00 EST, Dry Weight Start Date: 08/12/21 Status: Ordered latanoprost 0.005% ophthalmic solution 0 Refills, Maintenance, 05/11/20 16:57:00 EST Start Date: 05/11/20 Status: Ordered levocetirizine 5 mg oral tablet 1 tablet = 5 mg, By Mouth, Daily before dinner, Dr. Peyman Roach, # 30 tablet, Maintenance, 04/29/23 23:05:00 EST, Tablet Start Date: 04/29/23 Status: Ordered lidocaine 5% topical ointment See Instructions, PRN Pain , Moderate, 1 APPLICATION TOPICALLY 3 TIMES A DAY, # 50 Gm, 5 Refills, Maintenance, 12/22/21 7:28:00 EDT, [facility], same Rx was sent 11/11 w/ 5 refills, 1 APPLICATION TOPICALLY 3 TIMES A DAY,PRN:Pain , Moderate, 1... Start Date: 12/22/21 Status: Ordered Linzess 290 mcg oral capsule 1 capsule = 290 mcg, By Mouth, Daily, # 30 capsule, 0 Refills, Maintenance, 02/16/22 14:12:00 EDT, Capsule, Partial fill upon patient request if the prescription is for a schedule II opioid drug. Start Date: 02/16/22 Status: Ordered LORazepam 1 mg oral tablet See Instructions, PRN for anxiety, 2 tablets By Mouth 1 hours prior to MRI, # 2 tablet, 0 Refills, Maintenance, 01/12/22 7:27:00 EDT, Tablet, [facility], 188, cm, 12/26/21 14:06:00 EDT, Height, 122.63, kg, 11/22/21 16:37:00 EDT, Dry Weight Start Date: 01/12/22 Status: Ordered LUBRIC TEARS CALE 0.4-0.3% [place] INSTILL 1 DROP FOUR TIMES DAILY EACH EYE Start Date: 05/11/20 Status: Ordered magnesium oxide 400 mg oral tablet 1 tablet = 400 mg, By Mouth, Daily, # 30 tablet, 11 Refills, Maintenance, 04/27/22 15:29:00 EST, Tablet, [facility], Partial fill upon patient request if the prescription is for a schedule II opioid drug., 188, cm, 04/27/22 13:44:00 EST, Hei... Start Date: 04/27/22 Status: Ordered meloxicam 15 mg oral tablet 1 tablet = 15 mg, By Mouth, Daily, Take with food PRN back pain Grenadian, # 14 tablet, 0 Refills, Maintenance, 11/25/21 13:26:00 EDT, [facility], Partial fill upon patient request if the prescription is for a schedule II opioid drug., 188,... Start Date: 11/25/21 Stop Date: 12/09/21 Status: Ordered metFORMIN 750 mg oral tablet, extended release 1 tablet = 750 mg, By Mouth, Daily, [replaces the metformin 500mg bid], # 30 tablet, 5 Refills, Maintenance, 11/01/22 8:40:00 EDT, ER Tablet, [facility], Partial fill upon patient request if the prescription is for a schedule II opioid drug.... Start Date: 11/01/22 Status: Ordered methadone 10 mg oral tablet See Instructions, By mouth. 2 tab in AM, 1.5 midday, 2 in evening;for pain. IDC10: G90.5 CRPS. 28 day supply. [facility]., # 154 tablet, 0 Refills, Maintenance, pain, 06/19/23 23:14:00 EST,[facility], May partial fill., 06/19/23... Start Date: 06/19/23 Status: Ordered methadone 10 mg oral tablet See Instructions, By mouth. 2 tab in AM, 1.5 midday, 2 in evening;for pain. IDC10: G90.5 CRPS. 28 day supply. [facility]., # 154 tablet, 0 Refills, Maintenance, pain, 05/22/23 23:14:00 EST,[facility], May partial fill., 05/22/23... Start Date: 05/22/23 Status: Ordered methadone 10 mg oral tablet See Instructions, By mouth. 2 tab in AM, 1.5 midday, 2 in evening;for pain. IDC10: G90.5 CRPS. 28 day supply. [facility]., # 154 tablet, 0 Refills, Maintenance, pain, 07/17/23 23:14:00 EDT,[facility], May partial fill., 07/17/23... Start Date: 07/17/23 Status: Ordered methadone 10 mg oral tablet See Instructions, By mouth. 2 tab in AM, 1.5 midday, 2 in evening;for pain. IDC10: G90.5 CRPS. 28 day supply. [facility]., # 154 tablet, 0 Refills, Maintenance, pain, 04/24/23 22:44:00 EST,[facility], August partial fill., 188, cm,... Start Date: 04/24/23 Status: Ordered Metoclopramide = 10 mg, By Mouth, 3 times a day before meals and bedtime, 0 Refills, Maintenance, 08/20/18 13:55:26 EDT Start Date: 08/20/18 Status: Ordered Mounjaro 7.5 mg/0.5 mL subcutaneous solution = 7.5 mg, Subcutaneous Injection, Every week, rotate injection sites, # 4 each, 5 Refills, Maintenance, 04/27/23 0:18:00 EST, Solution, [facility], please d/c all prior Rx/refills for semaglutide, liraglutide, dulaglutide, 188, cm, 04/26/23... Start Date: 04/27/23 Status: Ordered Narcan 4 mg/0.1 mL nasal spray = 4 mg, Nares, Both, Once, may repeat every 2 to 3 minutes until patient responds, # 2 each, 1 Refills, Soft Stop, 02/16/22 23:38:00 EDT, [facility], 188, cm, 02/16/22 13:07:00 EDT, Height,122.63, kg, 11/22/21 16:37:00 EDT, Dry Weight Start Date: 02/16/22 Status: Ordered ondansetron 4 mg oral tablet TAKE 1 TABLET BY MOUTH EVERY 8 HOURS NEEDED FOR NAUSEA Idalia Sandoval Start Date: 08/20/18 Status: Ordered pantoprazole 40 mg oral delayed release tablet 0 Refills, Maintenance, 02/16/22 23:33:00 EDT Start Date: 02/16/22 Status: Ordered PEN NEEDLES MIS [id number] PEN NEEDLES MIS [id number], See Instructions, # 100 each, 5 Refills, Maintenance, USE DAILY TYPE 2 DIABETES MELLITUS ON INSULIN WITH PEN, 08/25/22 16:39:00 EDT, 188, cm, 07/18/22 14:01:00 EDT, Height, 122.63, kg, 11/22/21 16:37:00 EDT, Dry Weight Start Date: 08/25/22 Status: Ordered PEN NEEDLES MIS [id number] PEN NEEDLES MIS [id number], See Instructions, # 150 each, 5 Refills, Maintenance, USE 2-5X/DAY TYPE 2 DIABETES MELLITUS ON LANTUS AND HUMALOG INSULIN WITH PEN, 04/30/23 9:00:00 EST, 188, cm, 04/26/23 13:06:00 EST, Height, 126.09, kg, 04/26/23 13:06:00 ES... Start Date: 04/30/23 Status: Ordered Pen Skandia, 31 G x 8 mm BD Ultra Fine III See Instructions, # 150 each, Refills 11, Tot. Refills 11, Maintenance, use 2- 5x/day Type 2 Diabetes Mellitus on Lantus and Humalog insulin with pen, 05/30/22 12:24:00 EST, Compound, 188, cm, 05/19/22 10:14:00 EST, Height, 122.63, kg, 11/22/21 16:37:0... Start Date: 05/30/22 Stop Date: 05/25/23 Status: Ordered prazosin 1 mg oral capsule 2 mg, AT BEDTIME Start Date: 05/11/20 Status: Ordered SAFETY 30G MIS LANCETS SAFETY 30G MIS LANCETS, See Instructions, # 100 each, 11 Refills, Maintenance, USE DIRECTED THREE TIMES DAILY, 06/13/22 11:35:00 EST, 188, cm, 05/19/22 10:14:00 EST, Height, 122.63, kg, 11/22/21 16:37:00 EDT, Dry Weight Start Date: 06/13/22 Status: Ordered Singulair 10 mg oral tablet 10 mg, 1, tablet, By Mouth, Daily, # 90 tablet, Refills 3, Tot. Refills 3, Maintenance, 02/18/23 19:20:00 EST, Route to Pharmacy Electronically, [facility], 188, cm, 01/30/23 13:26:00 EDT, Height, 126, kg, 01/30/23 13:26:00 EDT, Dry Weight Start Date: 02/18/23 Status: Ordered spironolactone 25 mg oral tablet 25 mg, 1, tablet, By Mouth, Daily, Refills 0, Maintenance, 04/26/23 14:34:00 EST, Partial fill uponpatient request if the prescription is for a schedule II opioid drug. Start Date: 04/26/23 Status: Ordered Tab-A-Kelsie oral tablet 1 tablet, By Mouth, Daily, # 30 tablet, 5 Refills, Maintenance, 12/19/22 20:41:00 EDT, [facility], 30, TAKE 1 TABLET BY MOUTH EVERY DAY, 188, cm, 10/19/22 13:16:00 EDT, Height, 122.63, kg, 11/22/21 16:37:00 EDT, Dry Weight Start Date: 12/19/22 Status: Ordered tamsulosin 0.4 mg oral capsule 0.8 mg, 2, capsule, By Mouth, Daily, dose increase, # 60 capsule, Refills 11, Tot. Refills 11, Maintenance, 07/27/22 11:57:00 EDT, Route to Pharmacy Electronically, [facility], 188, cm, 07/18/22 14:01:00 EDT, Height, 122.63, kg, 11/22/21 16:... Start Date: 07/27/22 Status: Ordered Test Strips See Instructions, # 100 each, Refills 5, Tot. Refills 5, Maintenance, Precision Ganga strips (for Freestyle Tatyana glucometer). Type 2 diabetes mellitus on insulin (E11, Z79.4). Test 2-4x/day if symptoms, or sensor concerns., 02/08/23 10:36:00 EDT, [place]... Start Date: 02/08/23 Status: Ordered Test Strips See Instructions, # 100 each, Refills 11, Tot. Refills 11, Maintenance, Glucometer test strips. Dx Diabetes M-2 on insulin (ICD-10: E11, Z79. 4). 3x per day, 08/15/21 14:12:00 EDT, Compound, 188, cm,07/27/21 8:34:00 EDT, Height, 125.2, kg, 06/20/20... Start Date: 08/15/21 Status: Ordered testosterone enanthate 200 mg/mL intramuscular solution 0.75 mL, Intramuscular, Every 14 days, IM or subcutaneous. [facility]., # 2 mL, 5 Refills, Maintenance, 10/27/22 17:23:00 EDT, [facility], 188, cm, 10/19/22 13:16:00 EDT, Height, 122.63, kg, 11/22/21 16:37:00 EDT, Dry Weight Start Date: 10/27/22 Status: Ordered tiZANidine 4 mg oral tablet 4 mg, 1, tablet, By Mouth, 3 times a day, PRN, # 90 tablet, Refills 11, Tot. Refills 11, Maintenance, as needed for muscle spasm, 08/18/22 8:03:00 EDT, Route to Pharmacy Electronically, [facility], 188, cm, 07/18/22 14:01:00 EDT, Height, 122... Start Date: 08/18/22 Status: Ordered Toujeo Max SoloStar 300 units/mL subcutaneous solution = 60 units, Subcutaneous Injection, Daily, # 12 mL, 11 Refills, Maintenance, 02/08/23 10:15:00 EDT,Solution, [facility], replaces Lantus due to insurance coverage, 188, cm, 01/30/23 13:26:00 EDT, Height, 126, kg, 01/30/23 13:26:00 EDT, Dry... Start Date: 02/08/23 Status: Ordered Tylenol Extra Strength 500 mg oral tablet 2 tablet = 1,000 mg, By Mouth, 3 times a day, # 30 tablet, 11 Refills, Maintenance, 03/24/21 21:00:00 EST, [facility], 188, cm, 03/22/21 14:17:00 EST, Height, 125.2, kg, 06/20/20 14:28:00 EST, Dry Weight Start Date: 03/24/21 Status: Ordered Vitamin D3 1000 intl units oral tablet 1 tablet, By Mouth, Daily, # 90 tablet, 4 Refills, Maintenance, 04/01/23 22:28:00 EST, [facility], 188, cm, 01/30/23 13:26:00 EDT, Height, 126, kg, 01/30/23 13:26:00 EDT, Dry Weight Start Date: 04/01/23 Stop Date: 03/26/24 Status: Ordered Problem List Condition Confirmation Course Effective Dates Status Health Status Informant Alcohol abuse - per CONNIE kumar 2015 Confirmed Active Allergic rhinitis Confirmed Active Anxiety disorder Confirmed Active Asthma Confirmed Active Cataracts Confirmed 2013 Active Cervical disc disorder with radiculopathy 1 Confirmed 2010 Active Chronic pain syndrome 2, 3 Confirmed Stable Active Condyloma acuminatum of penis Confirmed 2017 Active 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 Confirmed Active Gastresophageal reflux disease Confirmed Active Hx of syphilis serology Confirmed Active Hypertriglyceridemia Confirmed Active Erectile dysfunction Confirmed 2015 Active Chronic lateral epicondylitis of elbow 4 Confirmed 2010 Active Chronic back pain Confirmed Active DHARA (obstructive sleep apnea) Confirmed 03/18/04 Active Plantar fasciitis Confirmed Active Severe obesity (BMI 35.0-39.9) with comorbidity Confirmed Active Shoulder impingement syndrome- R 5 Confirmed Active Snoring Confirmed 03/18/04 Active Osteoarthritis of cervical and lumbar spine Confirmed Active 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 3R Foot- ? chr regional pain syndrome 4s/p Modified Marbin procedure, repair of conjoined tendon of extensor carpi radialis longus and brevis and of partial tear of the lateral collateral ligament 12/29/10- Dr Calin Melgar. 5Arthroscopic subacromial decompression with debridement of undersurface partial cuff tear, & distal clavicle excision AC joint arthritis 2008 Social History Social History Type Response Smoking Status Former smoker, quit more than 30 days ago entered on: 07/18/22 Sex Male Patient Care team information Care Team Personnel Name: Shoaib An RN Position: [facility] RN Supv Member Role: Primary Care Nurse Name: Vamshi Man MD Position: [facility] Physician - Primary Care Member Role: PCP Address: Address: [address] [place] [address] Name: Luz Potter Position: [facility] Outreach Member Role: Lifetime Consulting Physician Name: Miki Rodriguez MD Position: [facility] Renal MD Member Role: Lifetime Consulting Physician Address: Address: [address] [facility] [place] [address]- Care Team Related Persons Name: BRANDON MTZ Address: home [address] [place] [address] Name: BRANDON BARKER Address: home [address] [place] [address] Name: ROSALINDA BERTRAND Address: home [address] [place] [address]
--- OUTSIDE RECORDS SUMMARY | 2023-10-11 08:08 | XMS_ITS | Continuity of Care Document ---
Author Organization [facility] Address [address] [place] [address]- Care Team Providers Care Shuttlecock Feather Trimmer Name Role Phone Vamshi Man MD Primary Care Physician Encounter [facility] Date(s): 04/20/20 - 05/20/20 [facility]/[address] [address]- Allergies, Adverse Reactions, Alerts Substance Reaction Severity Status penicillin 1 rash Resolved Latex RASH Active Other Food Allergy fresh peaches - itch y mouth, throat and lips swell Active 1rash per mother as child. Did take a penicillin for treatment of H pylori per pt w/o problem. Immunizations Given and Recorded Vaccine Date Status Refusal Reason SARS-CoV-2 (COVID-19) mRNA BNT-162b2 vac 04/29/20 Recorded influenza virus vaccine, inactivated 01/20/20 Give n influenza virus vaccine, inactivated 01/24/19 Give n influenza virus vaccine, inactivated 01/11/18 Ravindra rded influenza virus vaccine, inactivated 01/10/17 Give n influenza virus vaccine, inactivated 1 01/15/16 Re [...] influenza virus vaccine, inactivated 03/19/06 Give n zoster vaccine, inactivated 9 02/06/18 Recorded zoster vaccine, inactivated , 11 11/26/17 Record ed tetanus/diphtheria/pertussis, acel(Tdap) 12 6/16/18 Recorded tetanus/diphtheria/pertussis, acel(Tdap) 13 01/18/12 Given influ virus vac, H1N1, inactive(oldterm) 14 02/16/09 Given tetanus-diphtheria toxoids (Td) 03/23/05 Given pneumococcal 23-valent vaccine 03/23/05 Given Hepatitis A Adult Vaccine 15 06/02/04 Given Hepatitis A Adult Vaccine 16 02/21/03 Given hepatitis B adult vaccine 17 06/04/03 Given hepatitis B adult vaccine 12/19/02 Given hepatitis B adult vaccine 11/18/02 Given [facility] 3Result Comment: [01/01/2014] ORDERED BY PRISCILLA PFEIFFER MD 4Result Comment: [01/15/2013] ordered by Vamshi Man MD 5Admin Note: VIS 11/08/10 GIVEN 6Admin Note: VIS 11/08/2010 Fluzone given 7Admin Note: ADMINISTERED BY R.N. 8Admin Note: sanofi-pasteur 9Location History: [facility] 10Location History: El[facility] Bertrand 11Result Comment: [11/27/2017] REceived at [facility] at [place], [place]; ordered by Dr Michael Oliveira 12Location History: Hospital ER 13Admin Note: VIS GIVEN 14Admin Note: [employer] VIS 02/12/2009 15Admin Note: 2nd 16Admin Note: GIVEN BY RN. 17Admin Note: third Medications 22G or 23G 1.5 inch hypodermic needle 22G or 23G 1.5 inch hypodermic needle, See Instructions, # 4 each, Refills 1, Tot. Refills 1, Maintenance, for testosterone. Use 21G, 22G or 23G needle for injection into anterior thigh or lateral gluteal muscle, 01/25/20 22:24:00 EDT, 22G preferred w... Start Date: 01/25/20 Status: Ordered 3 mL syringe with 0.5-1.5 18G-21G needle 3 mL syringe with 0.5-1.5 18G-21G needle, See Instructions, # 4 each, Refills 1, Tot. Refills 1, Maintenance, for testosterone, withdrawing from vial., 01/25/20 22:24:00 EDT, 18G preferred if available, Supply, 185, cm, 01/07/20 13:55:00 EDT, Height,... Start Date: 01/25/20 Status: Ordered albuterol CFC free 90 mcg/inh inhalation aerosol 2, puffs, By Mouth, Every 4 hours, as needed Start Date: 08/20/18 Status: Ordered Alcohol Wipes See Instructions, # 50 each, Refills 5, Tot. Refills 5, Maintenance, for insulin and glucose testing up to 7x/wk total. Dx: E11, 12/25/18 9:47:15 EDT, Compound Start Date: 12/25/18 Status: Ordered ALPRAZolam [address] Tesha Schwarz, # 60 tablet, 0 Refills, Maintenance, 01/13/15 23:11:48 Start Date: 01/13/15 Status: Ordered Ambien 10 mg oral tablet 10 mg, 1, tablet, By Mouth, Daily at bedtime, PRN as needed for sleep, Dr Tesha Schwarz, 0 Refills Start Date: 12/23/07 Status: Ordered aspirin 81 mg oral delayed release tablet 81 mg, 1, tablet, By Mouth, Daily, # 30 tablet, Refills 5, Tot. Refills 5, 03/30/20 21:31:00 EST, Route to Pharmacy Electronically, [facility], [facility]. original sent 11/04/19. remaining refills sent., 185, cm, 02/25/20 10:29:00 EST, Hei... Start Date: 03/30/20 Status: Ordered AutoCPAP 9-18 with heated humidification AutoCPAP 9-18 with heated humidification, See Instructions, # 1 each, Refills 0, Tot. Refills 0, Maintenance, use overnight and naps from [facility], 11/04/18 12:28:22 EDT, Compound Start Date: 11/04/18 Status: Ordered Batteries for Freestyle Lite Glucometer Batteries for Freestyle Lite Glucometer, See Instructions, # 1 each, Refills 0, Tot. Refills 0, Maintenance, use as directed for Type 2 Diabetes Mellitus, E11.9, To Check BS., 12/25/18 9:47:26 EDT, Compound Start Date: 12/25/18 Status: Ordered buPROPion 300 mg/24 hours (XL) oral tablet, extended release 1 tablet = 300 mg, By Mouth, Daily, Latosha GarrisonNulty, Maintenance, 03/14/18 8:20:24 EST, ER Tablet Start Date: 03/14/18 Status: Ordered cetirizine 10 mg oral tablet TAKE 1 TABLET ONCE A DAY IN THE EVENING FOR 90 DAYS Start Date: 08/20/18 Status: Ordered cholecalciferol 1000 intl units oral capsule 1 capsule, By Mouth, Daily, # 90 capsule, 3 Refills, Maintenance, 03/30/20 21:36:00 EST, [facility], 185, cm, 02/25/20 10:29:00 EST, Height, 126.81, kg, 02/25/20 10:29:00 EST, Dry Weight Start Date: 03/30/20 Status: Ordered clotrimazole 1% topical cream 1 application, Topically, 2 times a day, apply to penile rash, # 30 Gm, 2 Refills, Maintenance, 01/07/20 14:49:00 EDT, Cream, [facility], 1 application Topically 2 times a day,Instr:apply to penile rash, 185, cm, 01/07/20 13:55:00 EDTFrancheska... Start Date: 01/07/20 Status: Ordered Cozaar 100 mg oral tablet 1 tablet = 100 mg, By Mouth, Daily in AM, # 30 tablet, 5 Refills, Maintenance, 03/15/20 17:08:00 EST, Tablet, [facility], duplicate rx. original sent 09/16/19. remaining refills sent., 185, cm, 02/25/20 10:29:00 EST, Height, 126.81, kg, ... Start Date: 03/15/20 Status: Ordered diclofenac 1% topical gel = 2 Gm, Topically, 4 times a day, PRN for pain, (pitcairn islander) not to exceed: 16 gm/day/joint lower limb8 gm/day/joint of upper limb 32 gm/day, # 100 Gm, 1 Refills, Maintenance, 10/27/19 10:15:00 EDT, Gel, [facility], 185, cm, 06/24/19 13:00:... Start Date: 10/27/19 Status: Ordered docusate sodium/sennosides 50/8.6mg docusate sodium/sennosides 50/8.6mg, 1-3 tablet, By Mouth, 2 times a day, PRN Constipation, # 100 tablet, Refills 11, Tot. Refills 11, Maintenance, 08/22/17 20:25:34 EDT, Compound Start Date: 08/22/17 Status: Ordered dulaglutide 1.5 mg/0.5 mL subcutaneous solution 0.5 mL = 1.5 mg, Subcutaneous Injection, Every week, # 2.5 mL, 11 Refills, Maintenance, 02/15/20 21:05:00 EST, Solution, [facility], 185, cm, 01/07/20 13:55:00 EDT, Height, 127.72, kg, 05/06/19 13:41:00 EST, Dry Weight Start Date: 02/15/20 Status: Ordered duloxetine 60 mg oral enteric coated capsule TAKE 1 CAPSULE BY MOUTH ONCE A DAY WITH MEALS Start Date: 05/11/20 Status: Ordered EpiPen 2-Deejay 0.3 mg injectable kit Maria G Collado/Melissa, 0 Refills, Maintenance, 01/01/16 18:30:41 Start Date: 01/01/16 Status: Ordered esomeprazole 40 mg oral enteric coated capsule TAKE 1 CAPSULE BY MOUTH EVERY DAY Start Date: 05/11/20 Status: Ordered Flovent HFA 110 mcg/inh inhalation aerosol 2 puffs, Inhalation, 2 times a day, # 12 Gm, 0 Refills, Maintenance, 05/11/20 16:57:00 EST, Aerosol Start Date: 05/11/20 Status: Ordered Flovent HFA 110 mcg/inh inhalation aerosol INHALE [address] Collado Start Date: 08/20/18 Status: Ordered fluticasone 50 mcg/inh nasal spray 0 Refills, Maintenance, 05/11/20 16:57:00 EST Start Date: 05/11/20 Status: Ordered fluticasone 50 mcg/inh nasal spray SHAKE LQ AND U 1 TO 2 SPRAYS IEN QD Start Date: 08/20/18 Status: Ordered Freestyle Lite Lancets See Instructions, # 50 each, Refills 5, Tot. Refills 5, Maintenance, fasting checks and before meals when instructed for type 2 diabetes m. Dx: E11., 12/25/18 9:47:18 EDT, Compound Start Date: 12/25/18 Stop Date: 06/23/19 Status: Ordered Freestyle Lite Monitor See Instructions, # 1 each, Refills 0, Tot. Refills 0, Maintenance, use as directed for Type 2 Diabetes Mellitus, E11.9, on insulin, check BS 0-3 times a day as directed., 01/03/19 11:05:49 EDT, Compound Start Date: 01/03/19 Stop Date: 02/02/19 Status: Ordered Freestyle Lite Test Strips See Instructions, # 100 each, Refills 11, Tot. Refills 11, Maintenance, Up to 3x per day as needed.Dx: E11, 08/09/19 9:33:00 EDT, Compound, 185, cm, 06/24/19 13:00:00 EDT, Height, 127.72, kg, 05/06/19 13:41:00 EST, Dry Weight Start Date: 08/09/19 Status: Ordered gabapentin 600 mg oral tablet TAKE 1 TABLET BY MOUTH THREE TIMES A DAY Start Date: 05/11/20 Status: Ordered Home Blood Pressure Monitor See Instructions, # 1 each, Maintenance, electronic sensor, Hypertension with difficulty to control, 12/22/19 10:32:00 EDT, Compound Start Date: 12/22/19 Status: Ordered ketotifen 0.025% ophthalmic solution INSTILL 1 DROP INTO AFFECTED EYE TWICE A DAY Dr Poe Start Date: 05/11/20 Status: Ordered Lantus Solostar Pen 100 units/mL subcutaneous solution = 90 units, Subcutaneous Infusion, Daily at bedtime, # 15 mL, 2 Refills, Maintenance, 05/06/20 9:55:00 EST, [facility], 185, cm, 02/25/20 10:29:00 EST, Height, 126.81, kg, 02/25/20 10:29:00EST, Dry Weight Start Date: 05/06/20 Status: Ordered latanoprost 0.005% ophthalmic solution 0 Refills, Maintenance, 05/11/20 16:57:00 EST Start Date: 05/11/20 Status: Ordered lidocaine 4% topical cream 1 application, Topically, 3 times a day, may interchange 3-5% cream or ointment or 2% gel per insurance coverage., # 60 Gm, 5 Refills, Maintenance, 10/28/19 20:11:00 EDT, [facility], 1 application Topically 3 times a day,Instr:august interchang... Start Date: 10/28/19 Status: Ordered Lipitor 40 mg oral tablet 1 tablet = 40 mg, By Mouth, Daily, # 90 tablet, 3 Refills, Maintenance, 03/30/20 21:30:00 EST, [facility], duplicate rx. original sent 11/04/19. remaining refill sent., 185, cm, 02/25/20 10:29:00 EST, Height, 126.81, kg, 02/25/20 10:29:00 EST... Start Date: 03/30/20 Status: Ordered LUBRIC TEARS CALE 0.4-0.3% [place] INSTILL 1 DROP FOUR TIMES DAILY EACH EYE Start Date: 05/11/20 Status: Ordered metFORMIN 500 mg oral tablet 1 tablet = 500 mg, By Mouth, 2 times a day, with meals. Replaces metformin ER, # 60 tablet, 11 Refills, Maintenance, 06/24/19 15:02:00 EDT, Tablet, [facility], 185, cm, 06/24/19 13:00:00 EDT, Height, 127.72, kg, 05/06/19 13:41:00 EST, Dry We... Start Date: 06/24/19 Status: Ordered methadone 10 mg oral tablet See Instructions, By mouth. 2 tab in AM, 1.5 midday, 2 in evening;for pain. IDC10: G90.5 CRPS. 28 day supply. [facility]., # 154 tablet, 0 Refills, Maintenance, pain, 03/30/20 23:51:00 EST,[facility], May partial fill., 03/30/20... Start Date: 03/30/20 Status: Ordered methadone 10 mg oral tablet See Instructions, By mouth. 2 tab in AM, 1.5 midday, 2 in evening;for pain. IDC10: G90.5 CRPS. 28 day supply. [facility]., # 154 tablet, 0 Refills, Maintenance, pain, 05/24/20 16:29:00 EST,[facility], May partial fill., 05/24/20... Start Date: 05/24/20 Status: Ordered Metoclopramide = 10 mg, By Mouth, 3 times a day before meals and bedtime, 0 Refills, Maintenance, 08/20/18 13:55:26 EDT Start Date: 08/20/18 Status: Ordered Narcan 4 mg/0.1 mL nasal spray = 4 mg, Nares, Both, Once, may repeat every 2 to 3 minutes until patient responds, # 2 each, 0 Refills, Soft Stop, 05/15/18 9:41:53 EST Start Date: 05/15/18 Status: Ordered nystatin-triamcinolone topical 407656 u/gm-0.1% ointment 1 applicator, Topically, 3 times a day, to foreskin area FOR 3 DAYS then switch to other antifungal, # 15 Gm, 1 Refills, Maintenance, 01/07/20 14:48:00 EDT, [facility], 1 applicator Topically 3 times a day,Instr:to foreskin area FOR 3 DAYS t... Start Date: 01/07/20 Status: Ordered olopatadine 0.1% ophthalmic solution 1 drops, Eyes, Both, 2 times a day, 0 Refills, Maintenance, 01/01/16 18:36:52 EDT Start Date: 01/01/16 Status: Ordered ondansetron 4 mg oral tablet TAKE 1 TABLET BY MOUTH EVERY 8 HOURS NEEDED FOR NAUSEA Idalia Sandoval Start Date: 08/20/18 Status: Ordered PARoxetine 40 mg oral tablet 40 mg, 1, tablet, By Mouth, Daily, # 30 tablet, Maintenance, 08/20/18 21:41:59 EDT Start Date: 08/20/18 Status: Ordered Pen [place], 31 G x 8 mm BD Ultra Fine III See Instructions, # 100 each, Refills 5, Tot. Refills 5, Maintenance, use bid Type 11 Diabetes Mellitus, 06/10/19 10:25:00 EST, Compound, 185, cm, 05/06/19 13:41:00 EST, Height, 127.72, kg, 05/06/19 13:41:00 EST, Dry Weight Start Date: 06/10/19 Stop Date: 12/07/19 Status: Ordered prazosin 1 mg oral capsule TAKE 1 CAPSULE BY MOUTH AT BEDTIME Start Date: 05/11/20 Status: Ordered Singulair 10 mg oral tablet 10 mg, 1, tablet, By Mouth, Daily, # 90 tablet, Refills 3, Tot. Refills 3, Maintenance, 03/30/20 21:31:00 EST, Route to Pharmacy Electronically, [facility], 185, cm, 02/25/20 10:29:00 EST, Height, 126.81, kg, 02/25/20 10:29:00 EST, Dry Weight Start Date: 03/30/20 Status: Ordered sucralfate 1 gm oral tablet TAKE 1 TABLET BY MOUTH TWICE DAILY Start Date: 05/11/20 Status: Ordered tamsulosin 0.4 mg oral capsule 0.4 mg, 1, capsule, By Mouth, Daily, Dr Mario, # 90 capsule, Refills 0, Maintenance, 05/11/20 16:58:00 EST Start Date: 05/11/20 Status: Ordered testosterone enanthate 200 mg/mL intramuscular solution 0.75 mL, Intramuscular, Every 14 days, [facility], # 5 mL, 5 Refills, Maintenance, 01/11/20 21:30:00 EDT, [facility], 185, cm, 01/07/20 13:55:00 EDT, Height, 127.72, kg, 05/06/19 13:41:00 EST, Dry Weight Start Date: 01/11/20 Status: Ordered tiZANidine 4 mg oral tablet 4 mg, 1, tablet, By Mouth, 3 times a day, PRN, # 90 tablet, Refills 11, Tot. Refills 11, Maintenance, as needed for muscle spasm, 05/11/20 18:47:00 EST, Route to Pharmacy Electronically, [facility], 185, cm, 02/25/20 10:29:00 EST, Height, 12... Start Date: 05/11/20 Status: Ordered traZODone 100 mg oral tablet TAKE ONE TO TWO TABLETS BY MOUTH AT BEDTIME NEEDED S. 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) 04/17/14 Active Family history finding DM, C AD, HTN, colon Ca, TGs?(Confirmed) Active Gastresophageal reflux disease(Confirmed) Active Hx of syphilis serology(Confirmed) Active Hypertriglyceridemia(Confirmed) Active Erectile dysfunction(Confirmed) 2015 Active Chronic lateral epicondyliti s of elbow(Confirmed) 2010 Active Chronic back pain(Confirmed) Active DHARA (obstructive sleep apnea)(Confirmed) 03/18/04 Active Plantar fasciitis(Confirmed) Active Shoulder impingement syndrom 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 3R Foot- ? chr regional pain syndrome 4s/p Modified [place] procedure, repair of conjoined tendon of extensor carpi radialis longus and brevis and of partial tear of the lateral collateral ligament 12/29/10- Dr Calin Melgar. 5Arthroscopic subacromial decompression with debridement of undersurface partial cuff tear, & distal clavicle excision AC joint arthritis 2008 Social History Social History Type Response Smoking Status Former smokeless tob acco user, quit more than 30 days ago entered on: 06/24/19 Sex Male
--- OUTSIDE RECORDS SUMMARY | 2023-10-11 08:08 | XMS_ITS | Continuity of Care Document ---
Author Organization [facility] Address [address] [place] [address]- Care Team Providers [employer] Hand Finisher Name Role Phone Vamshi Man MD Primary Care Physician En[place] [facility] [place]): 05/26/23 - 06/25/23 [facility]/[place] [address]- [place] Allergies, Adverse Reactions, Alerts Substance Reaction Severity Status penicillin 1 rash Resolved penicillins Active Other Food Allergy fresh peaches - itch y mouth, throat and lips swell Active Latex RASH Active 1rash per mother as child. Did take a penicillin for treatment of H pylori per pt w/o problem. Immunizations Given and Recorded Vaccine Date Status Refusal Reason SARS-CoV-2(COVID-19)mRNA-LNP vac([id number]) 01/30/23 Given influenza virus vaccine, inactivated 01/05/23 [place] rded influenza virus vaccine, inactivated 01/20/20 Give [...] influenza virus vaccine, inactivated 03/19/06 Give n [id number] 12y+ bivalent booster vax 02/16/22 Given pneumococcal 20-valent conjugate vaccine 02/16/22 Given Influenza Virus Vaccine (oldterm) 9 01/27/22 Recor ded Influenza Virus Vaccine (oldterm) 01/26/21 Recorde d SARS-CoV-2 mRNA ([id number]) vax 11/11/21 Given SARS-CoV-2 (COVID-19) mRNA BNT-162b2 [...] Elissa Bertrand 13Result Comment: [11/27/2017] REceived at [facility] [place], [place]; ordered by Dr Michael Oliveira 14Location [...] Dr Tesha Schwarz, 0 Refills Start Date: 9/8/08 Status: Ordered Arnuity Ellipta 100 mcg inhalation powder 1 puffs = 100 mcg, Inhalation, Every 24 hours, # 30 each, 11 Refills, Maintenance, 02/08/23 10:21:00 EDT, Powder, [facility], replaces Flovent due to insurance coverage, 188, cm, 01/30/23 13:26:00 EDT, Height, 126, kg, 01/30/23 13:26:00 EDT,... Start Date: 02/08/23 Status: Ordered Aspirin Low Dose 81 mg oral delayed release tablet 1 tablet, By Mouth, Daily, # 90 tablet, 4 Refills, Maintenance, 03/01/23 17:49:00 EST, [facility], 188, cm, 01/30/23 13:26:00 EDT, Height, 126, kg, 01/30/23 13:26:00 EDT, Dry Weight Start Date: 03/01/23 Status: Ordered atorvastatin 40 mg oral tablet See Instructions, TAKE 1 TABLET BY MOUTH EVERY DAY, # 90 tablet, 0 Refills, Maintenance, 05/01/23 21:18:00 EST, [facility], 188, cm, 04/26/23 13:06:00 EST, Height, 126.09, [...] 2 Refills, Maintenance, 04/27/22 23:43:00 EST, Cream, [facility], 1 application Topically 2 times a day,Instr:apply to penile rash, 188, cm, 04/27/22 13:44:00 EST, [facility]... Start Date: 04/27/22 Status: Ordered diazepam 10 mg oral tablet See Instructions, PRN, 1 tablet By Mouth 1 hr before MRI, # 1 tablet, Refills 2, Tot. Refills 2, Maintenance, as needed for anxiety, 01/30/23 15:02:00 EDT, Instructions Replace Required Details, Route to Pharmacy Electronically, [facility],... Start Date: 01/30/23 Status: Ordered diclofenac 1% topical gel = 2 Gm, Topically, 4 times a day, PRN for pain, (tajik) not to exceed: 16 gm/day/joint lower limb8 gm/day/joint of upper limb 32 gm/day may interchange for cream, # 100 Gm, 11 Refills, Maintenance, 04/15/22 13:02:00 EST, Gel, [facility]... Start Date: 04/15/22 Status: Ordered docusate [...] Start Date: 05/11/20 Status: Ordered Freestyle Tatyana [place] Freestyle Tatyana [place], See Instructions, # 1 each, Refills 0, Tot. Refills 0, Maintenance, Type 2 diabetes mellitus on insulin (E11, Z79.4). For use w/ Tatyana sensor, 05/31/23 13:17:00 EST, Compound,188, cm, 05/09/23 12:59:00 EST, Height, 126.09, kg,... Start Date: 05/31/23 Status: Ordered Freestyle Tatyana Sensor Freestyle Tatyana [...] 11 Refills, Maintenance, 11/28/21 21:27:00 EDT, Solution, [facility], 188, cm, 11/22/21 16:37:00 EDT, Height, [...] Gm, 5 Refills, Maintenance, 12/22/21 7:28:00 EDT, [facility], same Rx was sent 11/11 w/ [...] 0 Refills, Maintenance, 01/12/22 7:27:00 EDT, Tablet, [facility], 188, cm, 12/26/21 14:06:00 EDT, Height, 122.63, kg, 11/22/21 16:37:00 EDT, Dry Weight Start Date: 01/12/22 Status: Ordered LUBRIC TEARS CALE 0.4-0.3% [place] INSTILL 1 DROP FOUR TIMES DAILY EACH EYE Start Date: 05/11/20 Status: Ordered magnesium oxide 400 mg oral tablet 1 tablet = 400 mg, By Mouth, Daily, # 90 tablet, 3 Refills, Maintenance, 05/07/23 16:31:00 EST, Tablet, [facility], 188, cm, 04/26/23 13:06:00 EST, Height, 126.09, kg, 04/26/23 13:06:00 EST, Dry Weight Start Date: 05/07/23 Status: Ordered meloxicam 15 mg oral tablet 1 tablet = 15 mg, By Mouth, Daily, Take with food PRN back pain Singaporean, # 14 tablet, 0 Refills, Maintenance, 11/25/21 13:26:00 EDT, [facility], Partial fill upon patient request if the prescription is for a schedule II opioid drug., 188,... Start Date: 11/25/21 Stop Date: 12/09/21 Status: Ordered metFORMIN 750 mg oral tablet, extended release 1 tablet = 750 mg, By Mouth, Daily, [replaces the metformin 500mg bid], # 30 tablet, 5 Refills, Maintenance, 05/15/23 8:10:00 EST, ER Tablet, [facility], Partial fill upon patient request if the prescription is for a schedule II opioid drug.... Start Date: 05/15/23 Status: Ordered methadone 10 mg oral tablet See Instructions, By mouth. 2 tab in AM, 1.5 midday, 2 in evening;for pain. IDC10: G90.5 CRPS. 28 day supply. [facility]., # 154 tablet, 0 Refills, Maintenance, pain, 06/19/23 23:14:00 EST,[facility], August partial fill., 06/19/23... Start Date: 06/19/23 Status: Ordered methadone 10 mg oral tablet See Instructions, By mouth. 2 tab in AM, 1.5 midday, 2 in evening;for pain. IDC10: G90.5 CRPS. 28 day supply. [facility]., # 154 tablet, 0 Refills, Maintenance, pain, 05/22/23 23:14:00 EST,[facility], August partial fill., 05/22/23... Start Date: 05/22/23 Status: Ordered methadone 10 mg oral tablet See Instructions, By mouth. 2 tab in AM, 1.5 midday, 2 in evening;for pain. IDC10: G90.5 CRPS. 28 day supply. [facility]., # 154 tablet, 0 Refills, Maintenance, pain, 07/17/23 23:14:00 EDT,[facility], August partial fill., 07/17/23... Start Date: 07/17/23 Status: Ordered methadone 10 mg oral tablet See Instructions, By mouth. 2 tab in AM, 1.5 midday, 2 in evening;for pain. IDC10: G90.5 CRPS. 28 day supply. [facility]., # 154 tablet, 0 Refills, Maintenance, pain, 04/24/23 22:44:00 EST,[facility], August partial fill., 188, cm,... Start Date: 04/24/23 Status: Ordered Metoclopramide = 10 mg, By Mouth, 3 times a day before meals and bedtime, 0 Refills, Maintenance, 08/20/18 13:55:26 EDT Start Date: 08/20/18 Status: Ordered Mounjaro 7.5 mg/0.5 mL subcutaneous solution = 7.5 mg, Subcutaneous Injection, Every week, rotate injection sites, # 4 each, 5 Refills, Maintenance, 04/27/23 0:18:00 EST, Solution, [facility], please d/c all prior Rx/refills for semaglutide, liraglutide, dulaglutide, 188, cm, 04/26/23... Start Date: 04/27/23 Status: Ordered Narcan 4 mg/0.1 mL nasal spray = 4 mg, Nares, Both, Once, may repeat every 2 to 3 minutes until patient responds, # 2 each, 1 Refills, Soft Stop, 02/16/22 23:38:00 EDT, [facility], 188, cm, 02/16/22 13:07:00 EDT, Height,122.63, kg, 11/22/21 16:37:00 EDT, Dry Weight Start Date: 02/16/22 Status: Ordered ondansetron 4 mg oral tablet TAKE 1 TABLET BY MOUTH EVERY 8 HOURS NEEDED FOR NAUSEA Idalia Sandoval Start Date: 08/20/18 Status: Ordered pantoprazole 40 mg oral delayed release tablet 0 Refills, Maintenance, 02/16/22 23:33:00 EDT Start Date: 02/16/22 Status: Ordered Pen [place], 31 G x 8 mm BD Ultra Fine III See Instructions, # 100 each, Refills 11, Tot. Refills 11, Maintenance, use 2- 5x/day Type 2 Diabetes Mellitus on Lantus and Humalog insulin with pen, 05/31/23 13:55:00 EST, Compound, 188, cm, 05/09/23 12:59:00 EST, Height, 126.09, kg, 04/26/23 13:06:0... Start Date: 05/31/23 Stop Date: 05/25/24 Status: Ordered prazosin 1 mg oral capsule [...] 02/18/23 19:20:00 EST, Route to Pharmacy Electronically, [facility], 188, cm, 01/30/23 13:26:00 EDT, Height, [...] tablet, 5 Refills, Maintenance, 12/19/22 20:41:00 EDT, [facility], 30, TAKE 1 TABLET BY MOUTH EVERY DAY, 188, cm, 10/19/22 13:16:00 EDT, Height, 122.63, kg, 11/22/21 16:37:00 EDT, Dry Weight Start Date: 12/19/22 Status: Ordered tamsulosin 0.4 mg oral capsule 0.8 mg, 2, capsule, By Mouth, Daily, dose increase, # 60 capsule, Refills 11, Tot. Refills 11, Maintenance, 07/27/22 11:57:00 EDT, Route to Pharmacy Electronically, [facility], 188, cm, 07/18/22 14:01:00 EDT, Height, 122.63, kg, 11/22/21 16:... Start Date: 07/27/22 Status: Ordered Test Strips See Instructions, # 100 each, Refills 5, Tot. Refills 5, Maintenance, Precision Ganga strips (for Freestyle Tatyana glucometer). Type 2 diabetes mellitus on insulin (E11, Z79.4). Test 2-4x/day if symptoms, or sensor concerns., 02/08/23 10:36:00 EDT, [facility]... Start Date: 02/08/23 Status: Ordered Test Strips [...] Intramuscular, Every 14 days, IM or subcutaneous. [facility]., # 2 mL, 5 Refills, Maintenance, 05/04/23 13:34:00 EST, [facility], 188, cm, 04/26/23 13:06:00 EST, Height, 126.09, kg, 04/26/23 13:06:00 EST, Dry Weight Start Date: 05/04/23 Status: Ordered tiZANidine 4 mg oral tablet 4 mg, 1, tablet, By Mouth, 3 times a day, PRN, # 90 tablet, Refills 11, Tot. Refills 11, Maintenance, as needed for muscle spasm, 08/18/22 8:03:00 EDT, Route to Pharmacy Electronically, [facility], 188, cm, 07/18/22 14:01:00 EDT, Height, 122... Start Date: 08/18/22 Status: Ordered Della Hodges SoloStar 300 units/mL subcutaneous solution = 60 units, Subcutaneous Injection, Daily, # 12 mL, 11 Refills, Maintenance, 02/08/23 10:15:00 EDT,Solution, [facility], replaces Lantus due to insurance coverage, 188, cm, 01/30/23 13:26:00 EDT, Height, 126, kg, 01/30/23 13:26:00 EDT, Dry... Start Date: 02/08/23 Status: Ordered Tylenol Extra Strength 500 mg oral tablet 2 tablet = 1,000 mg, By Mouth, 3 times a day, # 30 tablet, 11 Refills, Maintenance, 03/24/21 21:00:00 EST, [facility], 188, cm, 03/22/21 14:17:00 EST, Height, 125.2, kg, 06/20/20 14:28:00 EST, Dry Weight Start Date: 03/24/21 Status: Ordered Vitamin D3 1000 intl units oral tablet 1 tablet, By Mouth, Daily, # 90 tablet, 4 Refills, Maintenance, 04/01/23 22:28:00 EST, [facility], 188, cm, 01/30/23 13:26:00 EDT, Height, 126, kg, 01/30/23 13:26:00 EDT, Dry Weight Start Date: 04/01/23 Stop Date: 03/26/24 Status: Ordered Problem List Condition Confirmation Course Effective Dates Status Health Status Informant Alcohol abuse - per josé 2015 Confirmed Active Allergic rhinitis Confirmed Active [...] 2010 Active Chronic back pain Confirmed Active Obese class I Confirmed Active DHARA (obstructive sleep apnea) Confirmed 03/18/04 Active Plantar fasciitis Confirmed Active Shoulder impingement syndrome- R 5 Confirmed Active Snoring Confirmed 03/18/04 Active Osteoarthritis of cervical and lumbar spine Confirmed Active 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 3R Foot- ? chr regional pain syndrome 4s/p Modified Zebulon procedure, repair of conjoined tendon of extensor carpi radialis longus and brevis and of partial tear of the lateral collateral ligament 12/29/10- Dr Calin Melgar. 5Arthroscopic subacromial decompression with debridement of undersurface partial cuff tear, & distal clavicle excision AC joint arthritis 2007 Social History Social History Type Response Smoking Status Former smoker, quit more than 30 days ago entered on: 07/18/22 Sex Male Patient Care team information Care Team Personnel Name: Shoaib An RN Position: [facility] RN Supv Member Role: Primary Care Nurse Name: Donovan DE LOS SANTOS, Vamshi Oshea Position: [facility] Physician - Primary Care Member Role: PCP Address: Address: [address] [place] [address]- Name: Luz Potter Position: [facility] Outreach Member Role: Lifetime Consulting Physician Name: Miki Rodriguez MD Position: [facility] Renal MD Member Role: Lifetime Consulting Physician Address: Address: [address] [facility] [place], [place] [address] Care Team Related Persons Name: BRANDON MTZ Address: home [address] [place] [address] Name: BRANDON BARKER Address: home [address] [place] [address] Name: ROSALINDA BERTRAND
--- OUTSIDE RECORDS SUMMARY | 2023-10-11 08:08 | XMS_ITS | Continuity of Care Document ---
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 Did take a penicillin for treatment of H pylori per pt w/o problem. Immunizations Given and Recorded Vaccine Date Status Refusal Reason SARS-CoV-2(COVID-19)mRNA-LNP vac([id number]) 01/30/23 Given influenza virus vaccine, inactivated 01/05/23 [...] influenza virus vaccine, inactivated 03/19/06 Give n [id number] 12y+ bivalent booster vax 11/3/22 Given pneumococcal 20-valent conjugate vaccine 02/16/22 Given Influenza Virus Vaccine (oldterm) 9 01/27/22 Recor ded Influenza Virus Vaccine (oldterm) 01/26/21 Recorde d SARS-CoV-2 mRNA ([id number]) vax 11/11/21 Given SARS-CoV-2 (COVID-19) mRNA BNT-162b2 [...] Elissa Bertrand 13Result Comment: [11/27/2017] REceived at [facility] at [place], [place]; ordered by Dr Michael Bogdasarian 14Location History: Hospital ER 15Admin Note: VIS [...] 11 Refills, Maintenance, 02/08/23 10:21:00 EDT, Powder, [facility], replaces Flovent due to insurance coverage, 188, cm, 01/30/23 13:26:00 EDT, Height, 126, kg, 01/30/23 13:26:00 EDT,... Start Date: 02/08/23 Status: Ordered Aspirin Low Dose 81 mg oral delayed release tablet 1 tablet, By Mouth, Daily, # 90 tablet, 4 Refills, Maintenance, 03/01/23 17:49:00 EST, [facility], 188, cm, 01/30/23 13:26:00 EDT, Height, 126, kg, 01/30/23 13:26:00 EDT, Dry Weight Start Date: 03/01/23 Status: Ordered atorvastatin 40 mg oral tablet See Instructions, TAKE 1 TABLET BY MOUTH EVERY DAY, # 90 tablet, 1 Refills, Maintenance, 11/02/22 16:19:00 EDT, [facility], 188, cm, 10/19/22 13:16:00 EDT, Height, 122.63, kg, 11/22/21 16:37:00 EDT, Dry Weight Start Date: 11/02/22 Status: Ordered AutoCPAP 9-18 with heated humidification AutoCPAP 9-18 with heated humidification, See Instructions, # 1 each, Refills 0, Tot. Refills 0, Maintenance, use overnight and naps from [facility], 11/04/18 12:28:22 EDT, Compound Start Date: 11/04/18 Status: Ordered baclofen 5 mg oral tablet 1 tablet = 5 mg, By Mouth, 3 times a day, take it with meals x 3/day, # 12 tablet, 0 Refills, Maintenance, 05/15/22 16:24:00 EST, Tablet, [facility], Partial fill upon patient request if the prescription is for a schedule II opioid drug., 18... Start Date: 05/15/22 Stop Date: 05/19/22 Status: Ordered brimonidine 0.15% ophthalmic solution 0 Refills, Maintenance, 12/22/21 7:34:00 EDT Start Date: 12/22/21 Status: Ordered buPROPion 300 mg/24 hours (XL) oral tablet, extended release 1 tablet = 300 mg, By Mouth, Daily, Latosha Amy, Maintenance, 03/14/18 8:20:24 EST, ER Tablet Start Date: 03/14/18 Status: Ordered cetirizine 10 mg oral tablet TAKE 1 TABLET ONCE A DAY IN THE EVENING FOR 90 DAYS Start Date: 08/20/18 Status: Ordered clotrimazole 1% topical cream 1 application, Topically, 2 times a day, apply to penile rash, # 30 Gm, 2 Refills, Maintenance, 04/27/22 23:43:00 EST, Cream, [facility], 1 application Topically 2 times a day,Instr:apply to penile rash, 188, cm, 04/27/22 13:44:00 EST, Francheska... Start Date: 04/27/22 Status: Ordered diazepam 10 mg oral tablet See Instructions, PRN, 1 tablet By Mouth 1 hr before MRI, # 1 tablet, Refills 2, Tot. Refills 2, Maintenance, as needed for anxiety, 01/30/23 15:02:00 EDT, Instructions Replace Required Details, Route to Pharmacy Electronically, [facility],... Start Date: 01/30/23 Status: Ordered diclofenac 1% topical gel = 2 Gm, Topically, 4 times a day, PRN for pain, (amharic) not to exceed: 16 gm/day/joint lower limb8 gm/day/joint of upper limb 32 gm/day may interchange for cream, # 100 Gm, 11 Refills, Maintenance, 04/15/22 13:02:00 EST, Gel, [facility]... Start Date: 04/15/22 Status: Ordered docusate sodium/sennosides 50/8.6mg docusate sodium/sennosides 50/8.6mg, 1-3 tablet, By Mouth, 2 times a day, PRN Constipation, # 100 tablet, Refills 11, Tot. Refills 11, Maintenance, 08/22/17 20:25:34 EDT, Compound Start Date: 08/22/17 Status: Ordered duloxetine 60 mg oral enteric coated capsule TAKE 1 CAPSULE BY MOUTH ONCE A DAY WITH MEALS Start Date: 05/11/20 Status: Ordered EpiPen 2-Deejay 0.3 mg injectable kit Maria G Collado/Melissa, 0 Refills, Maintenance, 01/01/16 18:30:41 Start Date: 01/01/16 Status: Ordered fexofenadine 60 mg oral tablet 1 tablet = 60 mg, By Mouth, 2 times a day, do not take cetirizine if taking fexofenadine (Anisha),# 60 tablet, 0 Refills, Maintenance, 09/03/22 13:58:00 EDT, Tablet, [facility], 188, cm, 07/18/22 14:01:00 EDT, Height, 122.63, kg, 11/22/21... Start Date: 09/03/22 Status: Ordered fexofenadine 60 mg oral tablet 1 tablet = 60 mg, By Mouth, 2 times a day, PRN for allergy symptoms, # 20 tablet, 0 Refills, Maintenance, 09/03/22 13:58:00 EDT, Tablet, [facility], Partial fill upon patient request if theprescription is for a schedule II opioid drug., 188... Start Date: 09/03/22 Status: Ordered fluticasone 50 mcg/inh nasal spray 0 Refills, Maintenance, 05/11/20 16:57:00 EST Start Date: 05/11/20 Status: Ordered Freestyle Tatyana [place] Freestyle Tatyana [place], See Instructions, # 1 each, Refills 0, [...] w/ Tatyana reader. Change every 10-14 days., 03/15/23 10:42:00 EST, Compound, 188, cm, 01/30/23 13:26:0... Start Date: 03/15/23 Status: Ordered Freestyle Lite Monitor See Instructions, [...] Dry Weight Start Date: 08/08/22 Status: Ordered gabapentin 600 mg oral tablet 1 tablet = 600 mg, By Mouth, 2 times a day, PRN back pain and sciatica May cause drowsiness, do notdrive after taking Turkmen, # 28 tablet, 0 Refills, Maintenance, 04/07/22 15:51:00 EST, [facility], [facility], cm, 02/16/22 13:07:00 EDT, Heigh... Start Date: 04/07/22 Stop Date: 04/21/22 Status: Ordered Glucose Monitor See Instructions, PRN, [...] 11 Refills, Maintenance, 11/28/21 21:27:00 EDT, Solution, [facility], 188, cm, 11/22/21 16:37:00 EDT, Height, [...] EST Start Date: 05/11/20 Status: Ordered lidocaine 5% topical ointment See Instructions, PRN Pain , Moderate, 1 APPLICATION TOPICALLY 3 TIMES A DAY, # 50 Gm, 5 Refills, Maintenance, 12/22/21 7:28:00 EDT, [facility], same Rx was sent 11/11 w/ [...] 0 Refills, Maintenance, 01/12/22 7:27:00 EDT, Tablet, [facility], 188, cm, 12/26/21 14:06:00 EDT, Height, 122.63, kg, 11/22/21 16:37:00 EDT, Dry Weight Start Date: 01/12/22 Status: Ordered losartan 100 mg oral tablet See Instructions, TAKE 1 TABLET BY MOUTH DAILY IN AM, # 30 tablet, 5 Refills, Maintenance, 02/28/2314:13:00 EST, [facility], 188, cm, 01/30/23 13:26:00 EDT, Height, 126, kg, 01/30/23 13:26:00 EDT, Dry Weight Start Date: 02/28/23 Status: Ordered LUBRIC TEARS CALE 0.4-0.3% Milliliters INSTILL 1 DROP FOUR TIMES DAILY EACH EYE Start Date: 05/11/20 Status: Ordered magnesium oxide 400 mg oral tablet 1 tablet = 400 mg, By Mouth, Daily, # 30 tablet, 11 Refills, Maintenance, 04/27/22 15:29:00 EST, Tablet, [facility], Partial fill upon patient request if the prescription is for a schedule II opioid drug., 188, cm, 04/27/22 13:44:00 EST, Hei... Start Date: 04/27/22 Status: Ordered meloxicam 15 mg oral tablet 1 tablet = 15 mg, By Mouth, Daily, Take with food PRN back pain Turkmen, # 14 tablet, 0 Refills, Maintenance, 11/25/21 13:26:00 EDT, [facility], Partial fill upon patient request if the prescription is for a schedule II opioid drug., 188,... Start Date: 11/25/21 Stop Date: 12/09/21 Status: Ordered metFORMIN 750 mg oral tablet, extended release 1 tablet = 750 mg, By Mouth, Daily, [replaces the metformin 500mg bid], # 30 tablet, 5 Refills, Maintenance, 11/01/22 8:40:00 EDT, ER Tablet, [facility], Partial fill upon patient request if the prescription is for a schedule II opioid drug.... Start Date: 11/01/22 Status: Ordered methadone 10 mg oral tablet See Instructions, By mouth. 2 tab in AM, 1.5 midday, 2 in evening;for pain. IDC10: G90.5 CRPS. 28 day supply. [facility]., # 154 tablet, 0 Refills, Maintenance, pain, 03/27/23 10:28:00 EST,[facility], May partial fill., 03/27/23... Start Date: 03/27/23 Status: Ordered methadone 10 mg oral tablet See Instructions, By mouth. 2 tab in AM, 1.5 midday, 2 in evening;for pain. IDC10: G90.5 CRPS. 28 day supply. [facility]., # 154 tablet, 0 Refills, Maintenance, pain, 02/27/23 10:28:00 EST,[facility], May partial fill., 02/27/23... Start Date: 02/27/23 Status: Ordered methadone 10 mg oral tablet See Instructions, By mouth. 2 tab in AM, 1.5 midday, 2 in evening;for pain. IDC10: G90.5 CRPS. 28 day supply. [facility]. Early fill before travel., # 154 tablet, 0 Refills, Maintenance, pain, 02/27/23 14:24:00 EST, [facility],... Start Date: 02/27/23 Status: Ordered methadone 10 mg oral tablet See Instructions, By mouth. 2 tab in AM, 1.5 midday, 2 in evening;for pain. IDC10: G90.5 CRPS. 28 day supply. [facility]., # 154 tablet, 0 Refills, Maintenance, pain, 01/30/23 14:06:00 EDT,[facility], August partial fill., 01/30/23... Start Date: 01/30/23 Status: Ordered Metoclopramide = 10 mg, By Mouth, 3 times a day before meals and bedtime, 0 Refills, Maintenance, 08/20/18 13:55:26 EDT Start Date: 08/20/18 Status: Ordered naproxen 500 mg oral tablet 1 tablet = 500 mg, By Mouth, 2 times a day, # 60 tablet, 0 Refills, Maintenance, 02/16/22 23:34:00 EDT, Tablet, Partial fill upon patient request if the prescription is for a schedule II opioid drug. Start Date: 02/16/22 Status: Ordered Narcan 4 mg/0.1 mL nasal spray = 4 mg, Nares, Both, Once, may repeat every 2 to 3 minutes until patient responds, # 2 each, 1 Refills, Soft Stop, 02/16/22 23:38:00 EDT, [facility], 188, cm, 02/16/22 13:07:00 EDT, Height,122.63, kg, 11/22/21 16:37:00 EDT, Dry Weight Start Date: 02/16/22 Status: Ordered olopatadine 0.1% ophthalmic solution 1 [...] Date: 02/16/22 Status: Ordered PEN NEEDLES MIS [id number] PEN NEEDLES MIS [id number], See Instructions, # 100 each, 5 Refills, Maintenance, USE DAILY TYPE 2 DIABETES MELLITUS ON INSULIN WITH PEN, 08/25/22 16:39:00 EDT, 188, cm, 07/18/22 14:01:00 EDT, Height, 122.63, kg, 11/22/21 16:37:00 EDT, Dry Weight Start Date: 08/25/22 Status: Ordered Pen [place]im[place]o, 31 G x 8 mm BD Ultra [...] 02/18/23 19:20:00 EST, Route to Pharmacy Electronically, [facility], 188, cm, 01/30/23 13:26:00 EDT, Height, 126, kg, 01/30/23 13:26:00 EDT, Dry Weight Start Date: 02/18/23 Status: Ordered Tab-A-Kelsie oral tablet 1 tablet, By Mouth, Daily, # 30 tablet, 5 Refills, Maintenance, 12/19/22 20:41:00 EDT, [facility], 30, TAKE 1 TABLET BY MOUTH EVERY DAY, 188, cm, 10/19/22 13:16:00 EDT, Height, 122.63, kg, 11/22/21 16:37:00 EDT, Dry Weight Start Date: 12/19/22 Status: Ordered tamsulosin 0.4 mg oral capsule 0.8 mg, 2, capsule, By Mouth, Daily, dose increase, # 60 capsule, Refills 11, Tot. Refills 11, Maintenance, 07/27/22 11:57:00 EDT, Route to Pharmacy Electronically, [facility], 188, cm, 07/18/22 14:01:00 EDT, Height, 122.63, kg, 11/22/21 16:... Start Date: 07/27/22 Status: Ordered Test Strips See Instructions, # 100 each, Refills 5, Tot. Refills 5, Maintenance, Precision Ganga strips (for Freestyle Tatyana glucometer). Type 2 diabetes mellitus on insulin (E11, Z79.4). Test 2-4x/day if symptoms, or sensor concerns., 02/08/23 10:36:00 EDT, [facility]... Start Date: 02/08/23 Status: Ordered Test Strips [...] Intramuscular, Every 14 days, IM or subcutaneous. [facility]., # 2 mL, 5 Refills, Maintenance, 10/27/22 17:23:00 EDT, [facility], 188, cm, 10/19/22 13:16:00 EDT, Height, 122.63, kg, 11/22/21 16:37:00 EDT, Dry Weight Start Date: 10/27/22 Status: Ordered tiZANidine 4 mg oral tablet 4 mg, 1, tablet, By Mouth, 3 times a day, PRN, # 90 tablet, Refills 11, Tot. Refills 11, Maintenance, as needed for muscle spasm, 08/18/22 8:03:00 EDT, Route to Pharmacy Electronically, [facility], 188, cm, 07/18/22 14:01:00 EDT, Height, 122... Start Date: 08/18/22 Status: Ordered Toujeo Max SoloStar 300 units/mL subcutaneous solution = 60 units, Subcutaneous Injection, Daily, # 12 mL, 11 Refills, Maintenance, 02/08/23 10:15:00 EDT,Solution, [facility], replaces Lantus due to insurance coverage, 188, cm, 01/30/23 13:26:00 EDT, Height, 126, kg, 01/30/23 13:26:00 EDT, Dry... Start Date: 02/08/23 Status: Ordered traZODone 100 mg oral tablet TAKE ONE TO TWO TABLETS BY MOUTH AT BEDTIME NEEDED Damaris Morales Start Date: 05/11/20 Status: Ordered Tylenol Extra Strength 500 mg oral tablet 2 tablet = 1,000 mg, By Mouth, 3 times a day, # 30 tablet, 11 Refills, Maintenance, 03/24/21 21:00:00 EST, [facility], 188, cm, 03/22/21 14:17:00 EST, Height, 125.2, kg, 06/20/20 14:28:00 EST, Dry Weight Start Date: 03/24/21 Status: Ordered Victoza 18 mg/3 mL subcutaneous solution = 1.8 mg, Subcutaneous Injection, Daily, # 9 mL, 11 Refills, Maintenance, 02/08/23 10:25:00 EDT, Solution, [facility], replaces semaglutide, 188, cm, 01/30/23 13:26:00 EDT, Height, 126, kg,01/30/23 13:26:00 EDT, Dry Weight Start Date: 02/08/23 Status: Ordered Problem List Condition Confirmation Course [...] ? chr regional pain syndrome 4s/p Modified Jefferson procedure, repair of conjoined tendon of extensor [...] Team Personnel Name: Shoaib An RN Position: [facility] RN Supv Member Role: Primary Care Nurse Name: Donovan DE LOS SANTOS, Vamshi Oshea Position: [facility] Physician - Primary Care Member Role: PCP Address: Address: [address] [place] [address]- Name: Luz Potter Position: [facility] Outreach Member Role: Lifetime Consulting Physician Name: Miki Rodriguez MD Position: [facility] Renal MD Member Role: Lifetime Consulting Physician Address: Address: [address] [facility] [place] [address]- Care Team Related Persons Name: BRANDON MTZ Address: home [address] [place] [address] Name: BRANDON BARKER Address: home [address] [place] [address] Name: ROSALINDA BERTRAND Address: [address] [place] [address]
--- OUTSIDE RECORDS SUMMARY | 2023-10-11 08:08 | XMS_ITS | Continuity of Care Document ---
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 Did take a penicillin for treatment of H pylori per pt w/o problem. Immunizations Given and Recorded Vaccine Date Status Refusal Reason influenza virus vaccine, inactivated 01/24/19 Give n [...] inactivated 9 02/06/18 Recorded zoster vaccine, inactivated 10, 11 11/26/17 Record ed tetanus/diphtheria/pertussis, acel(Tdap) 12 09/29/17 Recorded tetanus/diphtheria/pertussis, acel(Tdap) 13 01/18/12 Given influ [...] Elissa Bertrand 11Result Comment: [11/27/2017] REceived at [facility] at [place], [place]; ordered by Dr Michael Oliveira 12Location History: Hospital ER 13Admin Note: VIS GIVEN 14Admin Note: [employer] VIS 02/12/2009 15Admin Note: 2nd 16Admin Note: GIVEN BY RN. 17Admin Note: third Medications albuterol CFC free 90 mcg/inh inhalation aerosol [...] 30 tablet, Refills 5, Tot. Refills 5, 11/04/19 15:57:00 EDT, Route to Pharmacy Electronically, [facility], 185, cm, 06/24/19 13:00:00 EDT, Height, 127.72, kg, 05/06/19 13:41:00 EST, Dry Weight Start Date: 11/04/19 Status: Ordered AutoCPAP 9-18 with heated humidification [...] capsule 1 capsule, By Mouth, Daily, # 30 capsule, 11 Refills, Maintenance, 10/30/18 7:31:03 EDT Start Date: 10/30/18 Status: Ordered clotrimazole 1% topical cream 1 application, Topically, 2 times a day, apply to penile rash, # 30 Gm, 1 Refills, Maintenance, 06/24/19 15:23:00 EDT, Cream, [facility], 1 application Topically 2 times a day,Instr:apply to penile rash, 185, cm, 06/24/19 13:00:00 EDT, Francheska... Start Date: 06/24/19 Status: Ordered Cozaar 100 mg oral tablet 1 tablet = 100 mg, By Mouth, Daily in AM, # 30 tablet, 11 Refills, Maintenance, 09/16/19 15:00:00 EDT, Tablet, [facility], 185, cm, 06/24/19 13:00:00 EDT, Height, 127.72, kg, 05/06/19 13:41:00 EST, Dry Weight Start Date: 09/16/19 Status: Ordered diclofenac 1% topical gel = 2 Gm, Topically, 4 times a day, PRN for pain, (citizen of [place]) not to exceed: 16 gm/day/joint lower limb8 gm/day/joint of upper limb 32 gm/day, # 100 Gm, 1 Refills, Maintenance, 10/27/19 10:15:00 EDT, Gel, [facility], 185, cm, 06/24/19 13:00:... Start Date: 10/27/19 Status: Ordered docusate sodium/sennosides 50/8.6mg docusate sodium/sennosides 50/8.6mg, 1-3 tablet, By Mouth, 2 times a day, PRN Constipation, # 100 tablet, Refills 11, Tot. Refills 11, Maintenance, 08/22/17 20:25:34 EDT, Compound Start Date: 08/22/17 Status: Ordered dulaglutide 1.5 mg/0.5 mL subcutaneous solution 0.5 mL = 1.5 mg, Subcutaneous Injection, Every week, replaces Victoza, # 2.5 mL, 1 Refills, Maintenance, 12/02/19 10:07:00 EDT, Solution, [facility], duplicate rx. remaining refills sent. original sent 02/12/19., 185, cm, 06/24/19 13:00:00 E... Start Date: 12/02/19 Status: Ordered EpiPen 2-Deejay 0.3 mg injectable kit Maria G Collado/Melissa, 0 Refills, Maintenance, 01/01/16 18:30:41 Start Date: 01/01/16 Status: Ordered Flovent HFA 110 mcg/inh inhalation [...] Dry Weight Start Date: 08/09/19 Status: Ordered Home Blood Pressure Monitor See Instructions, # 1 each, Maintenance, electronic sensor, Hypertension with difficulty to control, 12/22/19 10:32:00 EDT, Compound Start Date: 12/22/19 Status: Ordered Jardiance 10 mg oral tablet 1 tablet, By Mouth, Daily in AM, # 30 tablet, 1 Refills, Maintenance, 04/15/19 5:02:00 EST, [facility], 185, cm, 02/12/19 9:28:00 EDT, Height, 123.7, kg, 08/22/18 12:59:00 EDT, Dry Weight Start Date: 04/15/19 Status: Ordered Lantus Solostar Pen 100 units/mL subcutaneous solution = 90 units, Subcutaneous Infusion, Daily at bedtime, # 15 mL, 5 Refills, Maintenance, 10/09/19 15:22:00 EDT, [facility], duplicate rx. original rx sent 03/18/19. remaining refills sent, 185,cm, 06/24/19 13:00:00 EDT, Height, 127.72, kg, 04/17... Start Date: 10/09/19 Status: Ordered latanoprost 0.005% ophthalmic solution 1 drops, Eyes, Both, Daily at bedtime, cover gap- Studio Control Operator Dr Broussard, # 2.5 mL, 1 Refills, Maintenance, 02/25/14 10:47:09, Ophth Solution, 1 drops Eyes, Both Daily at bedtime,Instr:cover gap-Studio Control Operator Dr Broussard Start Date: 02/25/14 Status: Ordered lidocaine 4% topical cream 1 application, Topically, 3 times a day, may interchange 3-5% cream or ointment or 2% gel per insurance coverage., # 60 Gm, 5 Refills, Maintenance, 10/28/19 20:11:00 EDT, [facility], 1 application Topically 3 times a day,Instr:august interchang... Start Date: 10/28/19 Status: Ordered Linzess 145 mcg oral capsule TAKE 1 CAPSULE BY MOUTH 30 MINUTES BEFORE MEAL (constipation) Start Date: 03/31/17 Status: Ordered Lipitor 40 mg oral tablet 1 tablet = 40 mg, By Mouth, Daily, # 30 tablet, 5 Refills, Maintenance, 11/04/19 15:57:00 EDT, [facility], 185, cm, 06/24/19 13:00:00 EDT, Height, 127.72, kg, 05/06/19 13:41:00 EST, Dry Weight Start Date: 11/04/19 Status: Ordered metFORMIN 500 mg oral tablet 1 tablet = 500 mg, By Mouth, 2 times a day, with meals. Replaces metformin ER, # 60 tablet, 11 Refills, Maintenance, 06/24/19 15:02:00 EDT, Tablet, [facility], 185, cm, 06/24/19 13:00:00 EDT, Height, 127.72, kg, 05/06/19 13:41:00 EST, Dry We... Start Date: 06/24/19 Status: Ordered metFORMIN 500 mg oral tablet, extended release 2 tablet = 1,000 mg, By Mouth, 2 times a day, (not the 1000mgER form due to cost), # 120 tablet, 11Refills, Maintenance, 03/18/19 10:55:38 EST, 185, cm, 02/12/19 9:28:19 EDT, Height, 123.7, kg, 08/22/18 12:59:19 EDT, Dry Weight Start Date: 03/18/19 Status: Ordered methadone 10 mg oral tablet See Instructions, By mouth. 2 tab in AM, 1.5 midday, 2 in evening;for pain. IDC10: G90.5 CRPS. 28 day supply. [facility]., # 154 tablet, 0 Refills, Maintenance, pain, 11/10/19 12:54:00 EDT,[facility], August partial fill., 11/10/19... Start Date: 11/10/19 Status: Ordered methadone 10 mg oral tablet See Instructions, By mouth. 2 tab in AM, 1.5 midday, 2 in evening;for pain. IDC10: G90.5 CRPS. 28 day supply. [facility]., # 154 tablet, 0 Refills, Maintenance, pain, 12/08/19 12:56:00 EDT,[facility], August partial fill., 12/08/19... Start Date: 12/08/19 Status: Ordered Metoclopramide = 10 mg, By [...] 9:41:53 EST Start Date: 05/15/18 Status: Ordered nystatin topical 908722 u/gm cream 1 application, Topically, 2 times a day, for fungal rash, # 30 Gm, 0 Refills, Maintenance, 09/15/2014:01:00 EDT, Cream, [facility], 1 application Topically 2 times a day,x14 days,Instr:forfungal rash, 185, cm, 06/24/19 13:00:00 EDT, Height... Start Date: 09/16/19 Stop Date: 09/30/19 Status: Ordered nystatin-triamcinolone topical 956879 u/gm-0.1% ointment 1 applicator, Topically, 3 times a day, to foreskin area, # 15 Gm, 1 Refills, Maintenance, 02/12/1911:01:58 EDT, 1 applicator Topically 3 times a day,Instr:to foreskin area Start Date: 02/12/19 Status: Ordered olopatadine 0.1% ophthalmic solution 1 [...] EDT Start Date: 08/20/18 Status: Ordered Pen [place], 31 G x 8 mm BD Ultra Fine III See Instructions, # 100 each, Refills 5, Tot. Refills 5, Maintenance, use bid Type 11 Diabetes Mellitus, 06/10/19 10:25:00 EST, Compound, 185, cm, 05/06/19 13:41:00 EST, Height, 127.72, kg, 05/06/19 13:41:00 EST, Dry Weight Start Date: 06/10/19 Stop Date: 12/07/19 Status: Ordered Protonix 40 mg oral granule 1 each = 40 mg, By Mouth, 2 times a day, # 60 each, 0 Refills, Maintenance, 08/05/18 15:06:07 EDT, Granule Start Date: 08/05/18 Status: Ordered Rexulti 2 mg oral tablet 1 tablet = 2 mg, By Mouth, Daily, 0 Refills, Maintenance, 08/20/18 13:55:00 EDT Start Date: 08/20/18 Status: Ordered Singulair 10 mg oral tablet 10 mg, 1, tablet, By Mouth, Daily, # 30 tablet, Refills 11, Tot. Refills 11, Maintenance, 11/29/18 11:27:43 EDT, Route to Pharmacy Electronically, [id number], [facility] Start Date: 11/29/18 Status: Ordered Testosterone Cypionate = 0.75 mg, Intramuscular, Every 14 days, Adm. today to RG Lot [id number] exp: 02/2020, 0 Refills, Maintenance, 11/14/18 14:06:08 EDT Start Date: 11/14/18 Status: Ordered testosterone enanthate 200 mg/mL intramuscular solution 0.75 mL, Intramuscular, Every 14 days, [facility], # 5 mL, 5 Refills, Maintenance, 05/06/19 15:06:00 EST, [facility], 185, cm, 05/06/19 13:41:00 EST, Height, 127.72, kg, 05/06/19 13:41:00 EST, Dry Weight Start Date: 05/06/19 Status: Ordered tiZANidine 4 mg oral tablet 4 mg, 1, tablet, By Mouth, 3 times a day, PRN, # 90 tablet, Refills 11, Tot. Refills 11, Maintenance, as needed for muscle spasm, 02/04/19 21:34:51 EDT, Route to Pharmacy Electronically, NCPDP_[id number], [facility] Start Date: 02/04/19 Status: Ordered Problem List Condition Effective Dates Status Health Status Inform ant Alcohol abuse - per CONNIE kumar 2016(Confirmed) Active Allergic rhinitis(Confirmed) Active Anxiety disorder(Confirmed) Active [...]
--- OUTSIDE RECORDS SUMMARY | 2023-10-11 08:08 | XMS_ITS | Continuity of Care Document ---
Author Organization [facility] Address [address] [place] [id number]- Care Team Providers Care [employer] Name Role Phone Vamshi Man MD Primary Care Physician [phone] Encounter [facility] Date(s): 07/03/23 - 08/02/23 [facility]/[address] [address]- Allergies, Adverse Reactions, Alerts Substance Reaction Severity Status penicillin 1 rash Resolved penicillins Active Latex RASH Active Other Food Allergy fresh peaches - itch y mouth, throat and lips swell Active 1rash per mother as child. Did take a penicillin for treatment of H pylori per pt w/o problem. Immunizations Given and Recorded Vaccine Date Status Refusal Reason SARS-CoV-2(COVID-19)mRNA-LNP vac([id number]) 01/30/23 Given influenza virus vaccine, inactivated 01/05/23 [...] influenza virus vaccine, inactivated 03/19/06 Give n [id number] 12y+ bivalent booster vax 02/16/22 Given pneumococcal 20-valent conjugate vaccine 02/16/22 Given Influenza Virus Vaccine (oldterm) 9 01/27/22 Recor ded Influenza Virus Vaccine (oldterm) 01/26/21 Recorde d SARS-CoV-2 mRNA ([id number]) vax 11/11/21 Given SARS-CoV-2 (COVID-19) mRNA BNT-162b2 [...] Elissa Bertrand 13Result Comment: [11/27/2017] REceived at [facility] [place], [place]; ordered by Dr Michael Oliveira 14Location [...] 11 Refills, Maintenance, 02/08/23 10:21:00 EDT, Powder, [facility], replaces Flovent due to insurance coverage, 188, cm, 01/30/23 13:26:00 EDT, Height, 126, kg, 01/30/23 13:26:00 EDT,... Start Date: 02/08/23 Status: Ordered Aspirin Low Dose 81 mg oral delayed release tablet 1 tablet, By Mouth, Daily, # 90 tablet, 4 Refills, Maintenance, 03/01/23 17:49:00 EST, [facility], 188, cm, 01/30/23 13:26:00 EDT, Height, 126, kg, 01/30/23 13:26:00 EDT, Dry Weight Start Date: 03/01/23 Status: Ordered atorvastatin 40 mg oral tablet 1 tablet, By Mouth, Daily, # 90 tablet, 1 Refills, Maintenance, 07/25/23 20:12:00 EDT, [facility], 188, cm, 07/05/23 11:09:00 EDT, Height, 126.09, kg, 04/26/23 13:06:00 EST, Dry Weight Start Date: 07/25/23 Status: Ordered AutoCPAP 9-18 with heated humidification [...] 2 Refills, Maintenance, 04/27/22 23:43:00 EST, Cream, [facility], 1 application Topically 2 times a day,Instr:apply to penile rash, 188, cm, 04/27/22 13:44:00 EST, Heigh... Start Date: 04/27/22 Status: Ordered diazepam 10 mg oral tablet See Instructions, PRN, 1 tablet By Mouth 1 hr before MRI, # 1 tablet, Refills 2, Tot. Refills 2, Maintenance, as needed for anxiety, 01/30/23 15:02:00 EDT, Instructions Replace Required Details, Route to Pharmacy Electronically, [facility],... Start Date: 01/30/23 Status: Ordered diclofenac 1% topical gel = 2 Gm, Topically, 4 times a day, PRN for pain, (irish) not to exceed: 16 gm/day/joint lower limb8 gm/day/joint of upper limb 32 gm/day may interchange for cream, # 100 Gm, 11 Refills, Maintenance, 04/15/22 13:02:00 EST, Gel, [facility]... Start Date: 04/15/22 Status: Ordered docusate [...] Status: Ordered fluticasone 50 mcg/inh nasal spray 2 sprays = 100 mcg, Nares, Both, 2 times a day, # 16 Gm, 11 Refills, Maintenance, 07/09/23 11:37:00EDT, [place], [facility], Partial fill upon patient request if the prescription is for a schedule II opioid drug., 2 sprays Nares, Both 2 times... Start Date: 07/09/23 Status: Ordered Freestyle Tatyana [place] Freestyle Tatyana [place], See Instructions, # 1 each, Refills 0, Tot. Refills 0, Maintenance, Type 2 diabetes mellitus on insulin (E11, Z79.4). For use w/ Tatyana sensor, 07/10/23 11:13:00 EDT, Compound,188, cm, 07/05/23 11:09:00 EDT, Height, 126.09, kg,... Start Date: 07/10/23 Status: Ordered Freestyle Tatyana Sensor Freestyle Tatyana Sensor, See Instructions, # 2 each, Refills 5, Tot. Refills 5, Maintenance, Type 2 diabetes mellitus on insulin (E11, Z79.4). For use w/ Tatyana reader. Change every 14 days., 07/29/23 20:08:00 EDT, Compound, 188, cm, 07/26/23 17:37:00 E... Start Date: 07/29/23 Status: Ordered Freestyle Lite Monitor See Instructions, [...] 11 Refills, Maintenance, 11/28/21 21:27:00 EDT, Solution, [facility], 188, cm, 11/22/21 16:37:00 EDT, Height, 122.63, [...] Gm, 5 Refills, Maintenance, 12/22/21 7:28:00 EDT, [facility], same Rx was sent 11/11 w/ [...] 0 Refills, Maintenance, 01/12/22 7:27:00 EDT, Tablet, [facility], 188, cm, 12/26/21 14:06:00 EDT, Height, 122.63, kg, 11/22/21 16:37:00 EDT, Dry Weight Start Date: 01/12/22 Status: Ordered LUBRIC TEARS CALE 0.4-0.3% Milliliters INSTILL 1 DROP FOUR TIMES DAILY EACH EYE Start Date: 05/11/20 Status: Ordered magnesium oxide 400 mg oral tablet 1 tablet = 400 mg, By Mouth, Daily, # 90 tablet, 3 Refills, Maintenance, 05/07/23 16:31:00 EST, Tablet, [facility], 188, cm, 04/26/23 13:06:00 EST, Height, 126.09, kg, 04/26/23 13:06:00 EST, Dry Weight Start Date: 05/07/23 Status: Ordered meloxicam 15 mg oral tablet 1 tablet = 15 mg, By Mouth, Daily, Take with food PRN back pain Armenian, # 14 tablet, 0 Refills, Maintenance, 11/25/21 13:26:00 EDT, [facility], Partial fill upon patient request if the prescription is for a schedule II opioid drug., 188,... Start Date: 11/25/21 Stop Date: 12/09/21 Status: Ordered metFORMIN 750 mg oral tablet, extended release 1 tablet = 750 mg, By Mouth, Daily, [replaces the metformin 500mg bid], # 30 tablet, 5 Refills, Maintenance, 05/15/23 8:10:00 EST, ER Tablet, [facility], Partial fill upon patient request if the prescription is for a schedule II opioid drug.... Start Date: 05/15/23 Status: Ordered methadone 10 mg oral tablet See Instructions, By mouth. 2 tab in AM, 1.5 midday, 2 in evening;for pain. IDC10: G90.5 CRPS. 28 day supply. [facility]., # 154 tablet, 0 Refills, Maintenance, pain, 10/09/23 21:08:00 EDT,[facility], May partial fill., 0... Start Date: 10/09/23 Status: Ordered methadone 10 mg oral tablet See Instructions, By mouth. 2 tab in AM, 1.5 midday, 2 in evening;for pain. IDC10: G90.5 CRPS. 28 day supply. [facility]., # 154 tablet, 0 Refills, Maintenance, pain, 09/11/23 21:08:00 EDT,[facility], May partial fill., 0... Start Date: 09/11/23 Status: Ordered methadone 10 mg oral tablet See Instructions, By mouth. 2 tab in AM, 1.5 midday, 2 in evening;for pain. IDC10: G90.5 CRPS. 28 day supply. [facility]., # 154 tablet, 0 Refills, Maintenance, pain, 08/14/23 21:08:00 EDT,[facility], May partial fill., 0... Start Date: 08/14/23 Status: Ordered methadone 10 mg oral tablet See Instructions, By mouth. 2 tab in AM, 1.5 midday, 2 in evening;for pain. IDC10: G90.5 CRPS. 28 day supply. [facility]., # 154 tablet, 0 Refills, Maintenance, pain, 04/24/23 22:44:00 EST,[facility], May partial fill., 188, cm,... Start Date: 04/24/23 Status: Ordered Metoclopramide = 10 mg, By Mouth, 3 times a day before meals and bedtime, 0 Refills, Maintenance, 08/20/18 13:55:26 EDT Start Date: 08/20/18 Status: Ordered Mounjaro 10 mg/0.5 mL subcutaneous solution = 10 mg, Subcutaneous Infusion, Every 7 days, please interchange with other Rx for 7.5 mg if unavailable., # 4 each, 11 Refills, Maintenance, 07/26/23 14:10:00 EDT, [facility], Partial fillupon patient request if the prescription is for a s... Start Date: 07/26/23 Status: Ordered Mounjaro 7.5 mg/0.5 mL subcutaneous solution = 7.5 mg, Subcutaneous Injection, Every week, rotate injection sites, # 4 each, 5 Refills, Maintenance, 07/07/23 17:04:00 EDT, Solution, [facility], should still have a couple months of refills from last Rx sent in April but sending again... Start Date: 07/07/23 Status: Ordered Narcan 4 mg/0.1 mL nasal spray = 4 mg, Nares, Both, Once, may repeat every 2 to 3 minutes until patient responds, # 2 each, 1 Refills, Soft Stop, 02/16/22 23:38:00 EDT, [facility], 188, cm, 02/16/22 13:07:00 EDT, Height,122.63, kg, 11/22/21 16:37:00 EDT, Dry Weight Start Date: 02/16/22 Status: Ordered ondansetron 4 mg oral tablet TAKE 1 TABLET BY MOUTH EVERY 8 HOURS NEEDED FOR NAUSEA Idalia Sandoval Start Date: 08/20/18 Status: Ordered pantoprazole 40 mg oral delayed release tablet 0 Refills, Maintenance, 02/16/22 23:33:00 EDT Start Date: 02/16/22 Status: Ordered Pen [place], 31 G x 8 mm BD Ultra [...] 02/18/23 19:20:00 EST, Route to Pharmacy Electronically, [facility], 188, cm, 01/30/23 13:26:00 EDT, Height, [...] Daily, # 30 tablet, 5 Refills, Maintenance, 07/09/23 11:09:00 EDT, [facility], 30, 1 tablet By Mouth Daily, 188, cm, 07/05/23 11:09:00 EDT, Height, 126.09, kg, 04/26/23 13:06:00 EST, Dry Weight Start Date: 07/09/23 Status: Ordered tamsulosin 0.4 mg oral capsule 0.8 mg, 2, capsule, By Mouth, Daily, dose increase, # 180 capsule, Refills 11, Tot. Refills 11, Maintenance, 07/26/23 14:15:00 EDT, Route to Pharmacy Electronically, [facility], 188, cm, 07/26/23 13:30:00 EDT, Height, 121.81, kg, 07/26/23 13... Start Date: 07/26/23 Status: Ordered Test Strips See Instructions, # 100 each, Refills 5, Tot. Refills 5, Maintenance, Precision Ganga strips (for Freestyle Tatyana glucometer). Type 2 diabetes mellitus on insulin (E11, Z79.4). Test 2-4x/day if symptoms, or sensor concerns., 02/08/23 10:36:00 EDT, [place]... Start Date: 02/08/23 Status: Ordered Test Strips [...] Intramuscular, Every 14 days, IM or subcutaneous. [facility]., # 2 mL, 5 Refills, Maintenance, 05/04/23 13:34:00 EST, [facility], 188, cm, 04/26/23 13:06:00 EST, Height, 126.09, kg, 04/26/23 13:06:00 EST, Dry Weight Start Date: 05/04/23 Status: Ordered tiZANidine 4 mg oral tablet 4 mg, 1, tablet, By Mouth, 3 times a day, PRN, # 90 tablet, Refills 11, Tot. Refills 11, Maintenance, as needed for muscle spasm, 08/18/22 8:03:00 EDT, Route to Pharmacy Electronically, [facility], 188, cm, 07/18/22 14:01:00 EDT, Height, 122... Start Date: 08/18/22 Status: Ordered Toujeo Max SoloStar 300 units/mL subcutaneous solution = 70 units, Subcutaneous Injection, Daily, decrease frin 90u, # 12 mL, 11 Refills, Maintenance, 07/26/23 14:19:00 EDT, Solution, [facility], replaces Lantus due to insurance coverage, 188, cm, 07/26/23 13:30:00 EDT, Height, 121.81, kg, 07/25... Start Date: 07/26/23 Status: Ordered Tylenol Extra Strength 500 mg oral tablet 2 tablet = 1,000 mg, By Mouth, 3 times a day, # 30 tablet, 11 Refills, Maintenance, 03/24/21 21:00:00 EST, [facility], 188, cm, 03/22/21 14:17:00 EST, Height, 125.2, kg, 06/20/20 14:28:00 EST, Dry Weight Start Date: 03/24/21 Status: Ordered Vitamin D3 1000 intl units oral tablet 1 tablet, By Mouth, Daily, # 90 tablet, 4 Refills, Maintenance, 04/01/23 22:28:00 EST, [facility], 188, cm, 01/30/23 13:26:00 EDT, Height, 126, kg, 01/30/23 13:26:00 EDT, Dry Weight Start Date: 04/01/23 Stop Date: 03/26/24 Status: Ordered Problem List Condition Confirmation Course Effective Dates Status Health Status Informant Alcohol abuse - per bushraperez 2015 Confirmed Active Allergic rhinitis Confirmed Active [...] ? chr regional pain syndrome 4s/p Modified [place] procedure, repair of conjoined tendon of extensor carpi radialis longus and brevis and of partial tear of the lateral collateral ligament 12/29/10- Dr Calin Melgar. 5Arthroscopic subacromial decompression with debridement of undersurface partial cuff tear, & distal clavicle excision AC joint arthritis 2008 Social History Social History Type Response Smoking Status Former smoker, quit more than 30 days ago entered on: 07/26/23 Sex Male Patient Care team information Care Team Personnel Name: Shoaib An RN Position: [facility] RN Supv Member Role: Primary Care Nurse Name: Donovan DE OLS SANTOS, Vamshi Oshea Position: [facility] Physician - Primary Care Member Role: PCP Address: Address: [address] Name: Luz Potter Position: [facility] Outreach Member Role: Lifetime Consulting Physician Name: Miki Rodriguez MD Position: [facility] Renal MD Member Role: Lifetime Consulting Physician Address: Address: [address] [facility] [facility] [address] [facility] [place], [address] Care Team Related Persons Name: BRANDON MTZ Address: home [address] [address] Name: BRANDON BARKER Address: home [address] [place] [address] Name: ROSALINDA BERTRAND
--- OUTSIDE RECORDS SUMMARY | 2023-10-11 08:08 | XMS_ITS | Continuity of Care Document ---
Author Organization [facility] Address [address] [place] [address]- Care Team Providers Care Director Of Photography Name Role Phone Vamshi Man MD Primary Care Physician Encounter [facility] Date(s): 10/07/20 - 11/20/20 [facility]/[address] [address]- Attending Physician: Vamshi Man MD Admitting Physician: Vamshi Man MD Allergies, Adverse Reactions, Alerts Substance Reaction Severity Status penicillin 1 rash Resolved Latex RASH Active Other Food Allergy fresh peaches - itch y mouth, throat and lips swell Active 1rash per mother as child. Did take a penicillin for treatment of H pylori per pt w/o problem. Immunizations Given and Recorded Vaccine Date Status Refusal Reason SARS-CoV-2 (COVID-19) mRNA BNT-162b2 vac 1 05/20/20 Recorded SARS-CoV-2 (COVID-19) mRNA BNT-162b2 vac 04/29/20 Recorded influenza virus vaccine, inactivated 01/20/20 Give n influenza virus vaccine, inactivated 01/24/19 Give n influenza virus vaccine, inactivated 01/11/18 Ravindra rded influenza virus vaccine, inactivated 01/10/17 Give n influenza virus vaccine, inactivated 2 01/15/16 Re corded influenza virus vaccine, inactivated 3 01/14/15 Re corded influenza virus vaccine, inactivated 4 01/01/14 Gi adrianne influenza virus vaccine, inactivated 5 01/15/13 Gi adrianne influenza virus vaccine, inactivated 6 01/04/12 Gi adrianne influenza virus vaccine, inactivated 7 01/12/11 Gi adrianne influenza virus vaccine, inactivated 8 01/25/10 Gi adrianne influenza virus vaccine, inactivated 9 01/05/09 Gi adrianne influenza virus vaccine, inactivated 03/19/06 Give n zoster vaccine, inactivated 10 02/06/18 Recorded zoster vaccine, inactivated 11, 12 11/26/17 Record ed tetanus/diphtheria/pertussis, acel(Tdap) 13 09/29/17 Recorded tetanus/diphtheria/pertussis, acel(Tdap) 14 01/18/12 Given influ virus vac, H1N1, inactive(oldterm) 15 02/16/09 Given tetanus-diphtheria toxoids (Td) 03/23/05 Given pneumococcal 23-valent vaccine 03/23/05 Given Hepatitis A Adult Vaccine 16 06/02/04 Given Hepatitis A Adult Vaccine 17 02/21/03 Given hepatitis B adult vaccine 18 06/04/03 Given hepatitis B adult vaccine 12/19/02 Given hepatitis B adult vaccine 11/18/02 Given 1Result Comment: Patient showed RN picture of immunization card 2[facility] 4Result Comment: [01/01/2014] ORDERED BY PRISCILLA PFEIFFER MD 5Result Comment: [01/15/2013] ordered by Vamshi Man MD 6Admin Note: VIS 11/08/10 GIVEN 7Admin Note: VIS 11/08/2010 Fluzone given 8Admin Note: ADMINISTERED BY R.N. 9Admin Note: sanofi-pasteur 10Location History: [facility] 11Location History: Elissa Bertrand 12Result Comment: [11/27/2017] REceived at [facility] at [place], [place]; ordered by Dr Michael Oliveira 13Location History: Hospital ER 14Admin Note: VIS GIVEN 15Admin Note: Sanofi-Pasteur VIS 02/12/2009 16Admin Note: 2nd 17Admin Note: GIVEN BY RN. 18Admin Note: third Medications 22G or 23G 1.5 [...] 7x/wk total. Dx: E11, 11/18/20 15:30:00 EDT, [facility], 188, cm, 09/22/20 8:33:00 EDT, Height, 125.2, [...] 0 Refills Start Date: 12/23/07 Status: Ordered Aspirin Low Dose 81 mg oral delayed release tablet 1 tablet, By Mouth, Daily, # 30 tablet, 5 Refills, Maintenance, 11/18/20 15:30:00 EDT, [facility], 188, cm, 09/22/20 8:33:00 EDT, Height, 125.2, kg, 06/20/20 14:28:00 EST, Dry Weight Start Date: 11/18/20 Status: Ordered AutoCPAP 9-18 with heated humidification AutoCPAP 9-18 with heated humidification, See Instructions, # 1 each, Refills 0, Tot. Refills 0, Maintenance, use overnight and naps from [facility], 11/04/18 12:28:22 EDT, Compound Start Date: 11/04/18 [...] capsule, 3 Refills, Maintenance, 03/30/20 21:36:00 EST, [facility], 185, cm, 02/25/20 10:29:00 EST, Height, 126.81, kg, 02/25/20 10:29:00 EST, Dry Weight Start Date: 03/30/20 Status: Ordered clotrimazole 1% topical cream 1 application, Topically, 2 times a day, apply to penile rash, # 30 Gm, 2 Refills, Maintenance, 01/07/20 14:49:00 EDT, Cream, [facility], 1 application Topically 2 times a day,Instr:apply to penile rash, 185, cm, 01/07/20 13:55:00 EDT, Heigh... Start Date: 01/07/20 Status: Ordered Cozaar 100 mg oral tablet 1 tablet = 100 mg, By Mouth, Daily in AM, # 30 tablet, 11 Refills, Maintenance, 09/22/20 9:41:00 EDT, Tablet, [facility], duplicate rx. original sent 09/16/19. remaining refills sent., 188, cm, 09/22/20 8:33:00 EDT, Height, 125.2, kg, 06/20/20... Start Date: 09/22/20 Status: Ordered cyclobenzaprine 10 mg oral tablet 10 mg, 1, tablet, By Mouth, 3 times a day, PRN, do not drive after taking this medication, # 30 tablet, Refills 0, Tot. Refills 0, Maintenance, Spasm for spasm, 06/25/20 15:39:00 EST, Route to Pharmacy Electronically, [facility], Partial f... Start Date: 06/25/20 Status: Ordered diclofenac 1% topical gel = 2 Gm, Topically, 4 times a day, PRN for pain, ([place]) not to exceed: 16 gm/day/joint lower limb8 gm/day/joint of upper limb 32 gm/day may interchange for cream, # 100 Gm, 5 Refills, Maintenance,07/08/20 15:35:00 EDT, Gel, [facility] Start Date: 07/08/20 Status: Ordered docusate sodium/sennosides 50/8.6mg docusate sodium/sennosides 50/8.6mg, 1-3 tablet, By Mouth, 2 times a day, PRN Constipation, # 100 tablet, Refills 11, Tot. Refills 11, Maintenance, 08/22/17 20:25:34 EDT, Compound Start Date: 08/22/17 Status: Ordered dulaglutide 1.5 mg/0.5 mL subcutaneous solution 0.5 mL = 1.5 mg, Subcutaneous Injection, Every week, # 2.5 mL, 11 Refills, Maintenance, 02/15/20 21:05:00 EST, Solution, [facility], 185, cm, 01/07/20 13:55:00 EDT, Height, [...] to 3x per day as needed.Dx: E11, 08/12/20 10:15:00 EDT, Compound, 188, cm, 07/08/20 13:42:00 EDT, Height, 125.2, kg, 06/20/20 14:28:00 EST, Dry Weight Start Date: 08/12/20 Status: Ordered gabapentin 600 mg oral tablet [...] units, Subcutaneous Infusion, Daily at bedtime, # 30 mL, 3 Refills, Maintenance, 07/08/20 15:42:00 EDT, [facility], Duplicate rx-Original rx sent 06/22/20. Resent., 188, cm, 07/08/20 13:42:00 EDT, Height, 125.2, kg, 06/20/20 14:28:00 EST,... Start Date: 07/08/20 Status: Ordered latanoprost 0.005% ophthalmic solution 0 Refills, Maintenance, 05/11/20 16:57:00 EST Start Date: 05/11/20 Status: Ordered lidocaine 5% topical ointment See Instructions, 1 APPLICATION TOPICALLY 3 TIMES A DAY, # 70.88 Gm, 4 Refills, Acute, [facility], 14, 1 APPLICATION TOPICALLY 3 TIMES A DAY, 188, cm, 09/22/20 8:33:00 EDT, Height, 125.2, kg, 06/20/20 14:28:00 EST, Dry Weight Start Date: 11/08/20 Status: Ordered Lipitor 40 mg oral tablet 1 tablet = 40 mg, By Mouth, Daily, # 90 tablet, 3 Refills, Maintenance, 03/30/20 21:30:00 EST, [facility], duplicate rx. original sent 11/04/19. remaining refill sent., 185, cm, 02/25/20 10:29:00 EST, Height, 126.81, kg, 02/25/20 10:29:00 EST... Start Date: 03/30/20 Status: Ordered LORazepam 1 mg oral tablet See Instructions, PRN for anxiety, 2 tablets By Mouth 1 hours prior to MRI, # 2 tablet, 0 Refills, Acute 09/22/21 9:45:00 EDT, 09/22/20 9:43:00 EDT, Tablet, [facility], Partial fill upon patient request if the prescription is for a schedule... Start Date: 09/22/20 Stop Date: 09/22/21 Status: Ordered LUBRIC TEARS CALE 0.4-0.3% Milliliters INSTILL 1 DROP FOUR TIMES DAILY EACH EYE Start Date: 05/11/20 Status: Ordered metFORMIN 500 mg oral tablet 1 tablet = 500 mg, By Mouth, 2 times a day, with meals. Replaces metformin ER, # 180 tablet, 3 Refills, Maintenance, 07/08/20 15:40:00 EDT, Tablet, [facility], Duplicate rx-Original rx sent06/22/20. Resent., 188, cm, 07/08/20 13:42:00 EDT, He... Start Date: 07/08/20 Status: Ordered methadone 10 mg oral tablet See Instructions, By mouth. 2 tab in AM, 1.5 midday, 2 in evening;for pain. IDC10: G90.5 CRPS. 28 day supply. [facility]., # 154 tablet, 0 Refills, Maintenance, pain, 11/09/20 9:00:00 EDT, [facility], May partial fill., 11/09/20,... Start Date: 11/09/20 Status: Ordered methadone 10 mg oral tablet See Instructions, By mouth. 2 tab in AM, 1.5 midday, 2 in evening;for pain. IDC10: G90.5 CRPS. 28 day supply. [facility]., # 154 tablet, 0 Refills, Maintenance, pain, 12/07/20 9:00:00 EDT, [facility], May partial fill., 12/07/20,... Start Date: 12/07/20 Status: Ordered Metoclopramide = 10 mg, By [...] Start Date: 05/15/18 Status: Ordered nystatin-triamcinolone topical 338956 u/gm-0.1% ointment 1 applicator, Topically, 3 times a day, to foreskin area FOR 3 DAYS then switch to other antifungal, # 15 Gm, 1 Refills, Maintenance, 07/08/20 15:34:00 EDT, [facility], 1 applicator Topically 3 times a day,Instr:to foreskin area FOR 3 DAYS t... Start Date: 07/08/20 Status: Ordered olopatadine 0.1% ophthalmic solution 1 drops, Eyes, Both, 2 times a day, 0 Refills, Maintenance, 01/01/16 18:36:52 EDT Start Date: 01/01/16 Status: Ordered ondansetron 4 mg oral tablet TAKE 1 TABLET BY MOUTH EVERY 8 HOURS NEEDED FOR NAUSEA Idalia Lori Start Date: 08/20/18 Status: Ordered PARoxetine 40 mg oral tablet 40 mg, 1, tablet, By Mouth, Daily, # 30 tablet, Maintenance, 08/20/18 21:41:59 EDT Start Date: 08/20/18 Status: Ordered Pen [place], 31 G x 8 mm BD Ultra [...] 03/30/20 21:31:00 EST, Route to Pharmacy Electronically, [facility], 185, cm, 02/25/20 10:29:00 EST, Height, [...] solution 0.75 mL, Intramuscular, Every 14 days, [facility], # 5 mL, 5 Refills, Maintenance, 08/29/20 21:33:00 EDT, [facility], 188, cm, 07/08/20 13:42:00 EDT, Height, 125.2, kg, 06/20/20 14:28:00 EST, Dry Weight Start Date: 08/29/20 Status: Ordered tiZANidine 4 mg oral tablet 4 mg, 1, tablet, By Mouth, 3 times a day, PRN, # 90 tablet, Refills 11, Tot. Refills 11, Maintenance, as needed for muscle spasm, 07/08/20 15:40:00 EDT, Route to Pharmacy Electronically, [facility], 188, cm, 07/08/20 13:42:00 EDT, Height, 12... Start Date: 07/08/20 Status: Ordered traZODone 100 mg oral tablet [...]
--- OUTSIDE RECORDS SUMMARY | 2023-10-11 08:08 | XMS_ITS | Continuity of Care Document ---
Author Organization [facility] Address [address] [place] [id number]- Care Team Providers Care Pulling Machine Operator Name Role Phone Vamshi Man MD Primary Care Physician [facility]counter [facility] Date(s): 08/22/23 - 09/21/23 [facility]/[address] [address]- Allergies, Adverse Reactions, Alerts Substance Reaction Severity Status penicillin 1 rash Resolved penicillins Active Latex RASH Active Other Food Allergy fresh peaches - itch y mouth, throat and lips swell Active 1rash per mother as child. Did take a penicillin for treatment of H pylori per pt w/o problem. Immunizations Given and Recorded Vaccine Date Status Refusal Reason SARS-CoV-2(COVID-19)mRNA-LNP vac([id number]) 01/30/23 Given influenza virus vaccine, inactivated 01/05/23 [...] influenza virus vaccine, inactivated 03/19/06 Give n [id number] 12y+ bivalent booster vax 02/16/22 Given pneumococcal 20-valent conjugate vaccine 02/16/22 Given Influenza Virus Vaccine (oldterm) 9 01/27/22 Recor ded Influenza Virus Vaccine (oldterm) 01/26/21 Recorde d SARS-CoV-2 mRNA ([id number]) vax 11/11/21 Given SARS-CoV-2 (COVID-19) mRNA BNT-162b2 [...] Bertrand 13Result Comment: [11/27/2017] REceived at [facility] at [place], [place]; ordered by Dr Michael Oliveira 14Location [...] 11 Refills, Maintenance, 02/08/23 10:21:00 EDT, Powder, [facility], replaces Flovent due to insurance coverage, 188, cm, 01/30/23 13:26:00 EDT, Height, 126, kg, 01/30/23 13:26:00 EDT,... Start Date: 02/08/23 Status: Ordered Aspirin Low Dose 81 mg oral delayed release tablet 1 tablet, By Mouth, Daily, # 90 tablet, 4 Refills, Maintenance, 03/01/23 17:49:00 EST, [facility], 188, cm, 01/30/23 13:26:00 EDT, Height, 126, kg, 01/30/23 13:26:00 EDT, Dry Weight Start Date: 03/01/23 Status: Ordered atorvastatin 40 mg oral tablet 1 tablet, By Mouth, Daily, # 90 tablet, 1 Refills, Maintenance, 07/25/23 20:12:00 EDT, [facility], 188, cm, 07/05/23 11:09:00 EDT, Height, [...] 2 Refills, Maintenance, 04/27/22 23:43:00 EST, Cream, [facility], 1 application Topically 2 times a day,Instr:apply to penile rash, 188, cm, 04/27/22 13:44:00 EST, Heigh... Start Date: 04/27/22 Status: Ordered diazepam 10 mg oral tablet See Instructions, PRN, 1 tablet By Mouth 1 hr before MRI, # 1 tablet, Refills 2, Tot. Refills 2, Maintenance, as needed for anxiety, 01/30/23 15:02:00 EDT, Instructions Replace Required Details, Route to Pharmacy Electronically, [facility],... Start Date: 01/30/23 Status: Ordered diclofenac 1% topical gel = 2 Gm, Topically, 4 times a day, PRN for pain, (mongolian) not to exceed: 16 gm/day/joint lower limb8 gm/day/joint of upper limb 32 gm/day may interchange for cream, # 100 Gm, 11 Refills, Maintenance, 04/15/22 13:02:00 EST, Gel, [facility]... Start Date: 04/15/22 Status: Ordered docusate [...] 16 Gm, 11 Refills, Maintenance, 07/09/23 11:37:00EDT, [place], [facility], Partial fill upon patient request if the prescription is for a schedule II opioid drug., 2 sprays Nares, Both 2 times... Start Date: 07/09/23 Status: Ordered Freestyle Tatyana Horace Freestyle Tatyana Horace, See Instructions, # 1 each, Refills 0, [...] w/ Tatyana reader. Change every 14 days., 08/11/23 11:15:00 EDT, Recently sent to [facility]... Start Date: 08/11/23 Status: Ordered Freestyle Tatyana Sensor Freestyle Tatyana [...] Dry Weight Start Date: 08/08/22 Status: Ordered glipiZIDE 5 mg oral tablet 60/month. Dr Brooks, # 60, Maintenance, 08/11/23 11:43:00 EDT Start Date: 08/11/23 Status: Ordered Glucose Monitor See Instructions, PRN, [...] 11 Refills, Maintenance, 11/28/21 21:27:00 EDT, Solution, [facility], 188, cm, 11/22/21 16:37:00 EDT, Height, [...] Dry Weight Start Date: 08/12/21 Status: Ordered levocetirizine 5 mg oral tablet 1 tablet = 5 mg, By Mouth, Daily before dinner, Dr. Peyman Roach, # 30 tablet, Maintenance, 04/29/23 23:05:00 EST, Tablet Start Date: 04/29/23 Status: Ordered lidocaine 5% topical ointment See Instructions, PRN Pain , Moderate, 1 APPLICATION TOPICALLY 3 TIMES A DAY, # 50 Gm, 5 Refills, Maintenance, 12/22/21 7:28:00 EDT, [facility], same Rx was sent 11/11 w/ [...] opioid drug. Start Date: 02/16/22 Status: Ordered LUBRIC TEARS CALE 0.4-0.3% Milliliters INSTILL 1 DROP FOUR TIMES DAILY EACH EYE Start Date: 05/11/20 Status: Ordered magnesium oxide 400 mg oral tablet 1 tablet = 400 mg, By Mouth, Daily, # 90 tablet, 3 Refills, Maintenance, 05/07/23 16:31:00 EST, Tablet, [facility], 188, cm, 04/26/23 13:06:00 EST, Height, 126.09, kg, 04/26/23 13:06:00 EST, Dry Weight Start Date: 05/07/23 Status: Ordered metFORMIN 750 mg oral tablet, extended release 1 tablet = 750 mg, By Mouth, Daily, [replaces the metformin 500mg bid], # 30 tablet, 5 Refills, Maintenance, 05/15/23 8:10:00 EST, ER Tablet, [facility], Partial fill upon patient request if the prescription is for a schedule II opioid drug.... Start Date: 05/15/23 Status: Ordered methadone 10 mg oral tablet See Instructions, By mouth. 2 tab in AM, 1.5 midday, 2 in evening;for pain. IDC10: G90.5 CRPS. [address] [facility]., # 154 tablet, 0 Refills, Maintenance, pain, 10/09/23 21:08:00 EDT,[facility], May partial fill., 0... Start Date: 10/09/23 Status: Ordered methadone 10 mg oral tablet See Instructions, By mouth. 2 tab in AM, 1.5 midday, 2 in evening;for pain. IDC10: G90.5 CRPS. [address] [facility]., # 154 tablet, 0 Refills, Maintenance, pain, 09/11/23 21:08:00 EDT,[facility], May partial fill., 0... Start Date: 09/11/23 Status: Ordered methadone 10 mg oral tablet See Instructions, By mouth. 2 tab in AM, 1.5 midday, 2 in evening;for pain. IDC10: G90.5 CRPS. [address] [facility]., # 154 tablet, 0 Refills, Maintenance, pain, 08/14/23 21:08:00 EDT,[facility], May partial fill., 0... Start Date: 08/14/23 Status: Ordered methadone 10 mg oral tablet See Instructions, By mouth. 2 tab in AM, 1.5 midday, 2 in evening;for pain. IDC10: G90.5 CRPS. [address] [facility]., # 154 tablet, 0 Refills, Maintenance, pain, 04/24/23 22:44:00 EST,[facility], May partial fill., 188, cm,... Start Date: 04/24/23 Status: Ordered Mounjaro 10 mg/0.5 mL subcutaneous solution = 10 mg, Subcutaneous Infusion, Every 7 days, please interchange with other Rx for 7.5 mg if unavailable., # 4 each, 11 Refills, Maintenance, 07/26/23 14:10:00 EDT, [facility], Partial fillupon patient request if the prescription is for a s... Start Date: 07/26/23 Status: Ordered Mounjaro 7.5 mg/0.5 mL subcutaneous solution = 7.5 mg, Subcutaneous Injection, Every week, rotate injection sites, # 4 each, 5 Refills, Maintenance, 07/07/23 17:04:00 EDT, Solution, [facility], should still have a couple months of refills from last Rx sent in April but sending again... Start Date: 07/07/23 Status: Ordered naproxen 500 mg oral tablet 1 tablet = 500 mg, By Mouth, 2 times a day, # 60 tablet, Maintenance, 08/11/23 11:46:00 EDT, Tablet Start Date: 08/11/23 Status: Ordered Narcan 4 mg/0.1 mL nasal spray = 4 mg, Nares, Both, Once, may repeat every 2 to 3 minutes until patient responds, # 2 each, 1 Refills, Soft Stop, 02/16/22 23:38:00 EDT, [facility], 188, cm, 02/16/22 13:07:00 EDT, Height,122.63, kg, 11/22/21 16:37:00 EDT, Dry Weight Start Date: 02/16/22 Status: Ordered ondansetron 4 mg oral tablet Rx by Idalia Sandoval, # 60, Maintenance, 08/11/23 11:48:00 EDT Start Date: 08/11/23 Status: Ordered pantoprazole 40 mg oral delayed release tablet 0 Refills, Maintenance, 02/16/22 23:33:00 EDT Start Date: 02/16/22 Status: Ordered Pen [place], 31 G x 8 mm BD Ultra Fine III See Instructions, # 100 each, Refills 11, Tot. Refills 11, Maintenance, use 2- 5x/day Type 2 Diabetes Mellitus on Lantus and Humalog insulin with pen, 05/31/23 13:55:00 EST, Compound, 188, cm, 05/09/23 12:59:00 EST, Height, 126.09, kg, 04/26/23 13:06:0... Start Date: 05/31/23 Stop Date: 05/25/24 Status: Ordered prazosin 1 mg oral capsule 5 mg, AT BEDTIME Start Date: 05/11/20 Status: Ordered Rocklatan 0.02%-0.005% ophthalmic solution Maintenance, 08/11/23 11:32:00 EDT Start Date: 08/11/23 Status: Ordered SAFETY 30G MIS LANCETS SAFETY [...] 02/18/23 19:20:00 EST, Route to Pharmacy Electronically, [facility], 188, cm, 01/30/23 13:26:00 EDT, Height, [...] tablet, 5 Refills, Maintenance, 07/09/23 11:09:00 EDT, [facility], 30, 1 tablet By Mouth Daily, 188, cm, 07/05/23 11:09:00 EDT, Height, 126.09, kg, 04/26/23 13:06:00 EST, Dry Weight Start Date: 07/09/23 Status: Ordered tamsulosin 0.4 mg oral capsule 0.8 mg, 2, capsule, By Mouth, Daily, dose increase, # 180 capsule, Refills 11, Tot. Refills 11, Maintenance, 07/26/23 14:15:00 EDT, Route to Pharmacy Electronically, [facility], 188, cm, 07/26/23 13:30:00 EDT, Height, 121.81, kg, 07/26/23 13... Start Date: 07/26/23 Status: Ordered Test Strips See Instructions, # 100 each, Refills 5, Tot. Refills 5, Maintenance, Precision Ganga strips (for Freestyle Tatyana glucometer). Type 2 diabetes mellitus on insulin (E11, Z79.4). Test 2-4x/day if symptoms, or sensor concerns., 02/08/23 10:36:00 EDT, [facility]... Start Date: 02/08/23 Status: Ordered Test Strips [...] Intramuscular, Every 14 days, IM or subcutaneous. [facility]., # 2 mL, 5 Refills, Maintenance, 08/11/23 11:20:00 EDT, [facility], Last sent to [facility]. Sending now to [facility] due to pt request msg [email or web address]... Start Date: 08/11/23 Status: Ordered tiZANidine 4 mg oral tablet 4 mg, 1, tablet, By Mouth, 3 times a day, PRN, # 90 tablet, Refills 11, Tot. Refills 11, Maintenance, as needed for muscle spasm, 09/10/23 13:47:00 EDT, Route to Pharmacy Electronically, [facility], 188, cm, 07/26/23 17:37:00 EDT, Height, 12... Start Date: 09/10/23 Status: Ordered Toujeo Max SoloStar 300 units/mL subcutaneous solution = 70 units, Subcutaneous Injection, Daily, decrease frin 90u, # 12 mL, 11 Refills, Maintenance, 07/26/23 14:19:00 EDT, Solution, [facility], replaces Lantus due to insurance coverage, 188, cm, 07/26/23 13:30:00 EDT, Height, 121.81, kg, 07/25... Start Date: 07/26/23 Status: Ordered Tylenol Extra Strength 500 mg oral tablet 2 tablet = 1,000 mg, By Mouth, 3 times a day, # 30 tablet, 11 Refills, Maintenance, 03/24/21 21:00:00 EST, [facility], 188, cm, 03/22/21 14:17:00 EST, Height, 125.2, kg, 06/20/20 14:28:00 EST, Dry Weight Start Date: 03/24/21 Status: Ordered Vitamin D3 1000 intl units oral tablet 1 tablet, By Mouth, Daily, # 90 tablet, 4 Refills, Maintenance, 04/01/23 22:28:00 EST, 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 chr regional pain syndrome 4s/p Modified Greene procedure, repair of conjoined tendon of extensor [...] Team Personnel Name: Shoaib An RN Position: [facility] RN Supv Member Role: Primary Care Nurse Name: Donovan DE LOS SANTOS, Vamshi Oshea Position: [facility] Physician - Primary Care Member Role: PCP Address: Address: [address] [place] [address]- Name: Luz Potter Position: [facility] Outreach Member Role: Lifetime Consulting Physician Name: Miki Rodriguez MD Position: [facility] Renal MD Member Role: Lifetime Consulting Physician Address: Address: [address] [facility] [place], [place] [address]- Care Team Related Persons Name: BRANDON MTZ Address: home [address] [place] [address] Name: BRANDON BARKER Address: home [address] [place] [address] Name: ROSALINDA BERTRAND
--- OUTSIDE RECORDS SUMMARY | 2023-10-11 08:08 | XMS_ITS | Continuity of Care Document ---
Author Organization [facility] Address [address] [place] [address]- Care Team Providers Care Foreign Legal Consultant Name Role Phone Vamshi Man MD Primary Care Physician [phone] [facility] Date[facility]): 03/29/23 - 04/28/23 [facility]/[place] [address]- [place] Allergies, Adverse Reactions, Alerts Substance Reaction Severity Status penicillin 1 rash Resolved Latex RASH Active Other Food Allergy fresh peaches - itch y mouth, throat and lips swell Active 1rash per mother as child. Did take a penicillin for treatment of H pylori per pt w/o problem. Immunizations Given and Recorded Vaccine Date Status Refusal Reason SARS-CoV-2(COVID-19)mRNA-LNP vac([id number]) 01/30/23 Given influenza virus vaccine, inactivated 01/05/23 [...] influenza virus vaccine, inactivated 03/19/06 Give n [id number] 12y+ bivalent booster vax 02/16/22 Given pneumococcal 20-valent conjugate vaccine 02/16/22 Given Influenza Virus Vaccine (oldterm) 9 01/27/22 Recor ded Influenza Virus Vaccine (oldterm) 01/26/21 Recorde d SARS-CoV-2 mRNA ([id number]-[id number]) vax 11/11/21 Given SARS-CoV-2 (COVID-19) mRNA BNT-162b2 [...] Elissa Bertrand 13Result Comment: [11/27/2017] REceived at [facility] at [place], [place]; ordered by Dr Michael Oliveira 14Location [...] 11 Refills, Maintenance, 02/08/23 10:21:00 EDT, Powder, [facility], replaces Flovent due to insurance coverage, 188, cm, 01/30/23 13:26:00 EDT, Height, 126, kg, 01/30/23 13:26:00 EDT,... Start Date: 02/08/23 Status: Ordered Aspirin Low Dose 81 mg oral delayed release tablet 1 tablet, By Mouth, Daily, # 90 tablet, 4 Refills, Maintenance, 03/01/23 17:49:00 EST, [facility], 188, cm, 01/30/23 13:26:00 EDT, Height, 126, kg, 01/30/23 13:26:00 EDT, Dry Weight Start Date: 03/01/23 Status: Ordered atorvastatin 40 mg oral tablet See Instructions, TAKE 1 TABLET BY MOUTH EVERY DAY, # 90 tablet, 1 Refills, Maintenance, 11/02/22 16:19:00 EDT, [facility], 188, cm, 10/19/22 13:16:00 EDT, Height, [...] 0 Refills, Maintenance, 05/15/22 16:24:00 EST, Tablet, [facility], Partial fill upon patient request if [...] opioid drug. Start Date: 04/26/23 Status: Ordered cetirizine 10 mg oral tablet TAKE 1 TABLET ONCE A DAY IN THE EVENING FOR 90 DAYS Start Date: 08/20/18 Status: Ordered clotrimazole 1% topical cream 1 application, Topically, 2 times a day, apply to penile rash, # 30 Gm, 2 Refills, Maintenance, 04/27/22 23:43:00 EST, Cream, [facility], 1 application Topically 2 times a day,Instr:apply to penile rash, 188, cm, 04/27/22 13:44:00 EST, [facility]... Start Date: 04/27/22 Status: Ordered diazepam 10 mg oral tablet See Instructions, PRN, 1 tablet By Mouth 1 hr before MRI, # 1 tablet, Refills 2, Tot. Refills 2, Maintenance, as needed for anxiety, 01/30/23 15:02:00 EDT, Instructions Replace Required Details, Route to Pharmacy Electronically, [facility],... Start Date: 01/30/23 Status: Ordered diclofenac 1% topical gel = 2 Gm, Topically, 4 times a day, PRN for pain, (syriac) not to exceed: 16 gm/day/joint lower limb8 gm/day/joint of upper limb 32 gm/day may interchange for cream, # 100 Gm, 11 Refills, Maintenance, 04/15/22 13:02:00 EST, Gel, [facility]... Start Date: 04/15/22 Status: Ordered docusate sodium/sennosides 50/8.6mg docusate sodium/sennosides 50/8.6mg, 1-3 tablet, By Mouth, 2 times a day, PRN Constipation, # 100 tablet, Refills 11, Tot. Refills 11, Maintenance, 04/04/23 11:31:00 EST, Compound, 188, cm, 01/30/23 13:26:00 EDT, Height, 126, kg, 01/30/23 13:26:00 EDT... Start Date: 04/04/23 Status: Ordered docusate sodium/sennosides 50/8.6mg docusate sodium/sennosides [...] 0 Refills, Maintenance, 09/03/22 13:58:00 EDT, Tablet, [facility], 188, cm, 07/18/22 14:01:00 EDT, Height, 122.63, kg, 11/22/21... Start Date: 09/03/22 Status: Ordered fexofenadine 60 mg oral tablet 1 tablet = 60 mg, By Mouth, 2 times a day, PRN for allergy symptoms, # 20 tablet, 0 Refills, Maintenance, 09/03/22 13:58:00 EDT, Tablet, [facility], Partial fill upon patient request if theprescription is for a schedule II opioid drug., 188... Start Date: 09/03/22 Status: Ordered fluticasone 50 mcg/inh nasal spray 0 Refills, Maintenance, 05/11/20 16:57:00 EST Start Date: 05/11/20 Status: Ordered Freestyle Tatyana [facility] Freestyle Tatyana [facility], See Instructions, # 1 each, Refills 0, [...] May cause drowsiness, do notdrive after taking Macedonian, # 28 tablet, 0 Refills, Maintenance, 04/07/22 15:51:00 EST, [facility], 188, cm, 02/16/22 13:07:00 EDT, Heigh... Start [...] 11 Refills, Maintenance, 11/28/21 21:27:00 EDT, Solution, [facility], 188, cm, 11/22/21 16:37:00 EDT, Height, [...] Gm, 5 Refills, Maintenance, 12/22/21 7:28:00 EDT, [facility], same Rx was sent 11/11 w/ [...] 0 Refills, Maintenance, 01/12/22 7:27:00 EDT, Tablet, [facility], 188, cm, 12/26/21 14:06:00 EDT, Height, 122.63, kg, 11/22/21 16:37:00 EDT, Dry Weight Start Date: 01/12/22 Status: Ordered LUBRIC TEARS CALE 0.4-0.3% Milliliters INSTILL 1 DROP FOUR TIMES DAILY EACH EYE Start Date: 05/11/20 Status: Ordered magnesium oxide 400 mg oral tablet 1 tablet = 400 mg, By Mouth, Daily, # 30 tablet, 11 Refills, Maintenance, 04/27/22 15:29:00 EST, Tablet, [facility], Partial fill upon patient request if the prescription is for a schedule II opioid drug., 188, cm, 04/27/22 13:44:00 EST, Hei... Start Date: 04/27/22 Status: Ordered meloxicam 15 mg oral tablet 1 tablet = 15 mg, By Mouth, Daily, Take with food PRN back pain Macedonian, # 14 tablet, 0 Refills, Maintenance, 11/25/21 13:26:00 EDT, [facility], Partial fill upon patient request if the prescription is for a schedule II opioid drug., 188,... Start Date: 11/25/21 Stop Date: 12/09/21 Status: Ordered metFORMIN 750 mg oral tablet, extended release 1 tablet = 750 mg, By Mouth, Daily, [replaces the metformin 500mg bid], # 30 tablet, 5 Refills, Maintenance, 11/01/22 8:40:00 EDT, ER Tablet, [facility], Partial fill upon [...] 0 Refills, Maintenance, pain, 02/27/23 14:24:00 EST, [facility],... Start Date: 02/27/23 Status: Ordered methadone 10 mg oral tablet See Instructions, By mouth. 2 tab in AM, 1.5 midday, 2 in evening;for pain. IDC10: G90.5 CRPS. 28 day supply. [facility]., # 154 tablet, 0 Refills, Maintenance, pain, 04/24/23 22:44:00 EST,[facility], May partial fill., 188, cm,... Start Date: 04/24/23 Status: Ordered Metoclopramide = 10 mg, By Mouth, 3 times a day before meals and bedtime, 0 Refills, Maintenance, 08/20/18 13:55:26 EDT Start Date: 08/20/18 Status: Ordered Mounjaro 7.5 mg/0.5 mL subcutaneous solution = 7.5 mg, Subcutaneous Injection, Every week, rotate injection sites, # 4 each, 5 Refills, Maintenance, 04/27/23 0:18:00 EST, Solution, [facility], please d/c all prior Rx/refills for semaglutide, liraglutide, dulaglutide, 188, cm, 04/26/23... Start Date: 04/27/23 Status: Ordered naproxen 500 mg oral tablet [...] 1 Refills, Soft Stop, 02/16/22 23:38:00 EDT, [facility], 188, cm, 02/16/22 13:07:00 EDT, Height,122.63, [...] Idalia Sandoval Start Date: 08/20/18 Status: Ordered Ozempic 8 mg/3 mL (2 mg dose) subcutaneous solution See Instructions, 2 MG SUBCUTANEOUS INFUSION EVERY 7 DAYS,INSTR:IN THE ABDOMEN, THIGH, OR UPPER ARM., # 3 mL, 10 Refills, Maintenance, 04/01/23 22:39:00 EST, [facility], Assuming this is available given order was proposed so d/c liraglutide.... Start Date: 04/01/23 Status: Ordered pantoprazole 40 mg oral delayed release tablet 0 Refills, Maintenance, 02/16/22 23:33:00 EDT Start Date: 02/16/22 Status: Ordered PEN NEEDLES MIS [id number] PEN NEEDLES MIS [id number], See Instructions, # 100 each, 5 Refills, Maintenance, USE DAILY TYPE 2 DIABETES MELLITUS ON INSULIN WITH PEN, 08/25/22 16:39:00 EDT, 188, cm, 07/18/22 14:01:00 EDT, Height, 122.63, kg, 11/22/21 16:37:00 EDT, Dry Weight Start Date: 08/25/22 Status: Ordered Pen [place], 31 G x 8 mm BD Ultra [...] 02/18/23 19:20:00 EST, Route to Pharmacy Electronically, [facility], 188, cm, 01/30/23 13:26:00 EDT, Height, [...] tablet, 5 Refills, Maintenance, 12/19/22 20:41:00 EDT, [facility], 30, TAKE 1 TABLET BY MOUTH EVERY DAY, 188, cm, 10/19/22 13:16:00 EDT, Height, 122.63, kg, 11/22/21 16:37:00 EDT, Dry Weight Start Date: 12/19/22 Status: Ordered tamsulosin 0.4 mg oral capsule 0.8 mg, 2, capsule, By Mouth, Daily, dose increase, # 60 capsule, Refills 11, Tot. Refills 11, Maintenance, 07/27/22 11:57:00 EDT, Route to Pharmacy Electronically, [facility], 188, cm, 07/18/22 14:01:00 EDT, Height, 122.63, kg, 11/22/21 16:... Start Date: 07/27/22 Status: Ordered Test Strips See Instructions, # 100 each, Refills 5, Tot. Refills 5, Maintenance, Precision Ganga strips (for Freestyle Tatyana glucometer). Type 2 diabetes mellitus on insulin (E11, Z79.4). Test 2-4x/day if symptoms, or sensor concerns., 02/08/23 10:36:00 EDT, [facility]... Start Date: 02/08/23 Status: Ordered Test Strips [...] Intramuscular, Every 14 days, IM or subcutaneous. [facility]., # 2 mL, 5 Refills, Maintenance, 10/27/22 17:23:00 EDT, [facility], 188, cm, 10/19/22 13:16:00 EDT, Height, 122.63, kg, 11/22/21 16:37:00 EDT, Dry Weight Start Date: 10/27/22 Status: Ordered tiZANidine 4 mg oral tablet 4 mg, 1, tablet, By Mouth, 3 times a day, PRN, # 90 tablet, Refills 11, Tot. Refills 11, Maintenance, as needed for muscle spasm, 08/18/22 8:03:00 EDT, Route to Pharmacy Electronically, [facility], 188, cm, 07/18/22 14:01:00 EDT, Height, 122... Start Date: 08/18/22 Status: Ordered Toujeo Max SoloStar 300 units/mL subcutaneous solution = 60 units, Subcutaneous Injection, Daily, # 12 mL, 11 Refills, Maintenance, 02/08/23 10:15:00 EDT,Solution, [facility], replaces Lantus due to insurance coverage, 188, cm, 01/30/23 13:26:00 EDT, Height, 126, kg, 01/30/23 13:26:00 EDT, Dry... Start Date: 02/08/23 Status: Ordered traZODone 100 mg oral tablet TAKE ONE TO TWO TABLETS BY MOUTH AT BEDTIME NEEDED S. Carmen Start Date: 05/11/20 Status: Ordered Tylenol Extra Strength 500 mg oral tablet 2 tablet = 1,000 mg, By Mouth, 3 times a day, # 30 tablet, 11 Refills, Maintenance, 03/24/21 21:00:00 EST, [facility], 188, cm, 03/22/21 14:17:00 EST, Height, 125.2, kg, 06/20/20 14:28:00 EST, Dry Weight Start Date: 03/24/21 Status: Ordered Victoza 18 mg/3 mL subcutaneous solution = 1.8 mg, Subcutaneous Injection, Daily, # 9 mL, 11 Refills, Maintenance, 02/08/23 10:25:00 EDT, Solution, [facility], replaces semaglutide, 188, cm, 01/30/23 13:26:00 EDT, Height, 126, kg,01/30/23 13:26:00 EDT, Dry Weight Start Date: 02/08/23 Status: Ordered Vitamin D3 1000 intl units oral tablet 1 tablet, By Mouth, Daily, # 90 tablet, 4 Refills, Maintenance, 04/01/23 22:28:00 EST, [facility], 188, cm, 01/30/23 13:26:00 EDT, Height, [...] Team Personnel Name: Shoaib An RN Position: [facility] RN Supv Member Role: Primary Care Nurse Name: Vamshi Man MD Position: [facility] Physician - Primary Care Member Role: PCP Address: Address: [address] [place] [address]- Name: Luz Potter Position: [facility] Outreach Member Role: Lifetime Consulting Physician Name: Miki Rodriguez MD Position: [facility] Renal MD Member Role: Lifetime Consulting Physician Address: Address: [address] [facility] [place] [address]- Care Team Related Persons Name: BRANDON MTZ Address: home [address] [place] [address] Name: BRANDON BARKER Address: home [address] [place] [address] Name: ROSALINDA BERTRAND Address: home [address] [place] [address]
--- OUTSIDE RECORDS SUMMARY | 2023-10-11 08:08 | XMS_ITS | Continuity of Care Document ---
Author Organization [facility] Address [address] [place] [address]- Care Team Providers Care Head Neck Surgeon Name Role Phone Vamsih Man MD Primary Care Physician Encounter [facility] Date(s): 06/14/20 - 07/14/20 [facility]/[address] [address]- Allergies, Adverse Reactions, Alerts Substance Reaction Severity [...] Elissa Bertrand 12Result Comment: [11/27/2017] REceived at [facility] at [place], [place]; ordered by Dr Michael Oliveira 13Location [...] Wipes See Instructions, # 100 each, Refills 3, Tot. Refills 3, Maintenance, for insulin and glucose testing up to 7x/wk total. Dx: E11, 07/08/20 15:41:00 EDT, Compound, 188, cm, 07/08/20 13:42:00 EDT, Height, 125.2, kg, 06/20/20 14:28:00 EST, Dry Weight Start Date: 07/08/20 Status: Ordered ALPRAZolam 2 mg oral tablet [...] 03/30/20 21:31:00 EST, Route to Pharmacy Electronically, [facility], [facility] rx. original sent 11/04/19. remaining refills sent., 185, cm, 02/25/20 10:29:00 EST, Hei... Start Date: 03/30/20 Status: Ordered AutoCPAP 9-18 with heated humidification AutoCPAP 9-18 with heated humidification, See Instructions, # 1 each, Refills 0, Tot. Refills 0, Maintenance, use overnight and naps from [facility], 11/04/18 12:28:22 EDT, Compound Start Date: 11/04/18 [...] capsule, 3 Refills, Maintenance, 03/30/20 21:36:00 EST, [facility], 185, cm, 02/25/20 10:29:00 EST, Height, 126.81, kg, 02/25/20 10:29:00 EST, Dry Weight Start Date: 03/30/20 Status: Ordered clotrimazole 1% topical cream 1 application, Topically, 2 times a day, apply to penile rash, # 30 Gm, 2 Refills, Maintenance, 01/07/20 14:49:00 EDT, Cream, [facility], 1 application Topically 2 times a day,Instr:apply to penile rash, 185, cm, 01/07/20 13:55:00 EDT, Francheska... Start Date: 01/07/20 Status: Ordered Cozaar 100 mg oral tablet 1 tablet = 100 mg, By Mouth, Daily in AM, # 30 tablet, 5 Refills, Maintenance, 03/15/20 17:08:00 EST, Tablet, [facility], duplicate rx. original sent 09/16/19. remaining refills sent., 185, cm, 02/25/20 10:29:00 EST, Height, 126.81, kg, ... Start Date: 03/15/20 Status: Ordered cyclobenzaprine 10 mg oral tablet 10 mg, 1, tablet, By Mouth, 3 times a day, PRN, do not drive after taking this medication, # 30 tablet, Refills 0, Tot. Refills 0, Maintenance, Spasm for spasm, 06/25/20 15:39:00 EST, Route to Pharmacy Electronically, [facility], Partial f... Start Date: 06/25/20 Status: Ordered diclofenac 1% topical gel = 2 Gm, Topically, 4 times a day, PRN for pain, (mongolian) not to exceed: 16 gm/day/joint lower limb8 gm/day/joint of upper limb 32 gm/day may interchange for cream, # 100 Gm, 5 Refills, Maintenance,07/08/20 15:35:00 EDT, Gel, [facility] Start Date: 07/08/20 Status: Ordered docusate [...] 11 Refills, Maintenance, 02/15/20 21:05:00 EST, Solution, [facility], 185, cm, 01/07/20 13:55:00 EDT, Height, [...] mL, 3 Refills, Maintenance, 07/08/20 15:42:00 EDT, [facility], Duplicate rx-Original rx sent 06/22/20. Resent., 188, cm, 07/08/20 13:42:00 EDT, Height, 125.2, kg, 06/20/20 14:28:00 EST,... Start Date: 07/08/20 Status: Ordered latanoprost 0.005% ophthalmic solution 0 Refills, Maintenance, 05/11/20 16:57:00 EST Start Date: 05/11/20 Status: Ordered Lipitor 40 mg oral tablet 1 tablet = 40 mg, By Mouth, Daily, # 90 tablet, 3 Refills, Maintenance, 03/30/20 21:30:00 EST, [facility], duplicate rx. original sent 11/04/19. remaining [...] 3 Refills, Maintenance, 07/08/20 15:40:00 EDT, Tablet, [facility], Duplicate rx-Original rx sent06/22/20. Resent., 188, cm, 07/08/20 13:42:00 EDT, He... Start Date: 07/08/20 Status: Ordered methadone 10 mg oral tablet See Instructions, By mouth. 2 tab in AM, 1.5 midday, 2 in evening;for pain. IDC10: G90.5 CRPS. 28 day supply. [facility]., # 154 tablet, 0 Refills, Maintenance, pain, 07/20/20 15:43:00 EDT,[facility], May partial fill., 188, cm,... Start Date: 07/20/20 Status: Ordered methadone 10 mg oral tablet See Instructions, By mouth. 2 tab in AM, 1.5 midday, 2 in evening;for pain. IDC10: G90.5 CRPS. 28 day supply. [facility]., # 154 tablet, 0 Refills, Maintenance, pain, 08/17/20 15:47:00 EDT,[facility], May partial fill., 08/17/20... Start Date: 08/17/20 Status: Ordered Metoclopramide = 10 mg, By [...] Start Date: 05/15/18 Status: Ordered nystatin-triamcinolone topical 761340 u/gm-0.1% ointment 1 applicator, Topically, 3 times a day, to foreskin area FOR 3 DAYS then switch to other antifungal, # 15 Gm, 1 Refills, Maintenance, 07/08/20 15:34:00 EDT, [facility], 1 applicator Topically 3 times a [...] EDT Start Date: 08/20/18 Status: Ordered Pen Spivey, 31 G x 8 mm BD Ultra [...] 03/30/20 21:31:00 EST, Route to Pharmacy Electronically, [facility], 185, cm, 02/25/20 10:29:00 EST, Height, [...] solution 0.75 mL, Intramuscular, Every 14 days, [facility], # 5 mL, 5 Refills, Maintenance, 01/11/20 21:30:00 EDT, [facility], 185, cm, 01/07/20 13:55:00 EDT, Height, 127.72, kg, 05/06/19 13:41:00 EST, Dry Weight Start Date: 01/11/20 Status: Ordered tiZANidine 4 mg oral tablet 4 mg, 1, tablet, By Mouth, 3 times a day, PRN, # 90 tablet, Refills 11, Tot. Refills 11, Maintenance, as needed for muscle spasm, 07/08/20 15:40:00 EDT, Route to Pharmacy Electronically, [facility], 188, cm, 07/08/20 13:42:00 EDT, Height, 12... Start Date: 07/08/20 Status: Ordered traZODone 100 mg oral tablet TAKE ONE TO TWO TABLETS BY MOUTH AT BEDTIME NEEDED Damaris Morales Start Date: 05/11/20 Status: Ordered Problem List [...] ? chr regional pain syndrome 4s/p Modified [place] procedure, repair of conjoined tendon of extensor [...]
--- OUTSIDE RECORDS SUMMARY | 2023-10-11 08:08 | XMS_ITS | Continuity of Care Document ---
Author Organization [facility] Address [address] [place] [address]- Care Team Providers Care Fish Processing Supervisor Name Role Phone Vamshi Man MD Primary Care Physician [phone] Encounter [facility] Date(s): 02/06/23 - 03/08/23 [facility]/[place] [address]- [place] Allergies, Adverse Reactions, Alerts Substance Reaction Severity Status penicillin 1 rash Resolved Other Food Allergy fresh peaches - itch y mouth, throat and lips swell Active Latex RASH Active 1rash per mother as child. Did take a penicillin for treatment of H pylori per pt w/o problem. Immunizations Given and Recorded Vaccine Date Status Refusal Reason SARS-CoV-2(COVID-19)mRNA-LNP vac([id number]) 01/30/23 Given [id number] 12y+ bivalent booster vax 02/16/22 Given pneumococcal 20-valent conjugate vaccine 02/16/22 Given Influenza Virus Vaccine (oldterm) 1 01/27/22 Recor ded Influenza Virus Vaccine (oldterm) 01/26/21 Recorde d SARS-CoV-2 mRNA ([id number]) vax 11/11/21 Given SARS-CoV-2 (COVID-19) mRNA BNT-162b2 vac 02/23/21 Given SARS-CoV-2 (COVID-19) mRNA BNT-162b2 vac 2 05/20/20 Recorded SARS-CoV-2 (COVID-19) mRNA BNT-162b2 vac 04/29/20 Recorded influenza virus vaccine, inactivated 01/20/20 Give n influenza virus vaccine, inactivated 01/24/19 Give n influenza virus vaccine, inactivated 01/11/18 Ravindra rded influenza virus vaccine, inactivated 01/10/17 Give n influenza virus vaccine, inactivated 01/28/16 Ravindra rded influenza virus vaccine, inactivated 3 01/15/16 Re corded influenza virus vaccine, inactivated 4 01/14/15 Re corded influenza virus vaccine, inactivated 5 01/01/14 Gi adrianne influenza virus vaccine, inactivated 6 01/15/13 Gi adrianne influenza virus vaccine, inactivated 7 01/04/12 Gi adrianne influenza virus vaccine, inactivated 8 01/12/11 Gi adrianne influenza virus vaccine, inactivated 9 01/25/10 Gi adrianne influenza virus vaccine, inactivated 10 01/05/09 G iven influenza virus vaccine, inactivated 03/19/06 Give n zoster vaccine, inactivated 11 02/06/18 Recorded zoster [...] B adult vaccine 11/18/02 Given 1Result Comment: pharmacy. Date approximate. Per pt recall. Non in ExtRx or MIIS 2Result Comment: Patient showed RN picture of immunization card [facility] 5Result Comment: [01/01/2014] ORDERED BY PRISCILLA PFEIFFER MD 6Result Comment: [01/15/2013] ordered by Vamshi Man MD 7Admin Note: VIS 11/08/10 GIVEN 8Admin Note: VIS 11/08/2010 Fluzone given 9Admin Note: ADMINISTERED BY R.N. 10Admin Note: sanofi-pasteur 11Location History: [facility] 12Location History: Elissa Bertrand 13Result Comment: [11/27/2017] REceived at [facility] at [place], [place]; ordered by Dr Michael Oliveira 14Location [...] 11 Refills, Maintenance, 02/08/23 10:21:00 EDT, Powder, [facility], replaces Flovent due to insurance coverage, 188, cm, 01/30/23 13:26:00 EDT, Height, 126, kg, 01/30/23 13:26:00 EDT,... Start Date: 02/08/23 Status: Ordered Aspirin Low Dose 81 mg oral delayed release tablet 1 tablet, By Mouth, Daily, # 90 tablet, 4 Refills, Maintenance, 03/01/23 17:49:00 EST, [facility], 188, cm, 01/30/23 13:26:00 EDT, Height, 126, kg, 01/30/23 13:26:00 EDT, Dry Weight Start Date: 03/01/23 Status: Ordered atorvastatin 40 mg oral tablet See Instructions, TAKE 1 TABLET BY MOUTH EVERY DAY, # 90 tablet, 1 Refills, Maintenance, 11/02/22 16:19:00 EDT, [facility], 188, cm, 10/19/22 13:16:00 EDT, Height, [...] 0 Refills, Maintenance, 05/15/22 16:24:00 EST, Tablet, [facility], Partial fill upon patient request if [...] 2 Refills, Maintenance, 04/27/22 23:43:00 EST, Cream, [facility], 1 application Topically 2 times a day,Instr:apply to penile rash, 188, cm, 04/27/22 13:44:00 EST, Francheska... Start Date: 04/27/22 Status: Ordered diazepam 10 mg oral tablet See Instructions, PRN, 1 tablet By Mouth 1 hr before MRI, # 1 tablet, Refills 2, Tot. Refills 2, Maintenance, as needed for anxiety, 01/30/23 15:02:00 EDT, Instructions Replace Required Details, Route to Pharmacy Electronically, [facility],... Start Date: 01/30/23 Status: Ordered diclofenac 1% topical gel = 2 Gm, Topically, 4 times a day, PRN for pain, (yoruba) not to exceed: 16 gm/day/joint lower limb8 gm/day/joint of upper limb 32 gm/day may interchange for cream, # 100 Gm, 11 Refills, Maintenance, 04/15/22 13:02:00 EST, Gel, [facility]... Start Date: 04/15/22 Status: Ordered docusate [...] 0 Refills, Maintenance, 09/03/22 13:58:00 EDT, Tablet, [facility], 188, cm, 07/18/22 14:01:00 EDT, Height, 122.63, kg, 11/22/21... Start Date: 09/03/22 Status: Ordered fexofenadine 60 mg oral tablet 1 tablet = 60 mg, By Mouth, 2 times a day, PRN for allergy symptoms, # 20 tablet, 0 Refills, Maintenance, 09/03/22 13:58:00 EDT, Tablet, [facility], Partial fill upon patient request if theprescription is for a schedule II opioid drug., 188... Start Date: 09/03/22 Status: Ordered fluticasone 50 mcg/inh nasal spray 0 Refills, Maintenance, 05/11/20 16:57:00 EST Start Date: 05/11/20 Status: Ordered Freestyle Tatyana Viburnum Freestyle Tatyana Viburnum, See Instructions, # 1 each, Refills 0, Tot. Refills 0, Maintenance, Type 2 diabetes mellitus on insulin (E11, Z79.4). For use w/ Tatyana sensor, 02/08/23 10:36:00 EDT, Compound,188, cm, 01/30/23 13:26:00 EDT, Height, 126, kg, 10... Start Date: 02/08/23 Status: Ordered Freestyle Tatyana Sensor Freestyle Tatyana Sensor, See Instructions, # 3 each, Refills 0, Tot. Refills 0, Maintenance, Type 2 diabetes mellitus on insulin (E11, Z79.4). For use w/ Tatyana reader. Change every 10-14 days., 02/08/23 10:36:00 EDT, Compound, 188, cm, 01/30/23 13:26:0... Start Date: 02/08/23 Status: Ordered Freestyle Lite Monitor See Instructions, [...] May cause drowsiness, do notdrive after taking Portuguese, # 28 tablet, 0 Refills, Maintenance, 04/07/22 15:51:00 EST, [facility], 188, cm, 02/16/22 13:07:00 EDT, Heigh... Start [...] 11 Refills, Maintenance, 11/28/21 21:27:00 EDT, Solution, [facility], 188, cm, 11/22/21 16:37:00 EDT, Height, [...] Gm, 5 Refills, Maintenance, 12/22/21 7:28:00 EDT, [facility], same Rx was sent 11/11 w/ [...] 0 Refills, Maintenance, 01/12/22 7:27:00 EDT, Tablet, [facility], 188, cm, 12/26/21 14:06:00 EDT, Height, 122.63, kg, 11/22/21 16:37:00 EDT, Dry Weight Start Date: 01/12/22 Status: Ordered losartan 100 mg oral tablet See Instructions, TAKE 1 TABLET BY MOUTH DAILY IN AM, # 30 tablet, 5 Refills, Maintenance, 02/28/2314:13:00 EST, [facility], 188, cm, 01/30/23 13:26:00 EDT, Height, 126, kg, 01/30/23 13:26:00 EDT, Dry Weight Start Date: 02/28/23 Status: Ordered LUBRIC TEARS CALE 0.4-0.3% Milliliters INSTILL 1 DROP FOUR TIMES DAILY EACH EYE Start Date: 05/11/20 Status: Ordered magnesium oxide 400 mg oral tablet 1 tablet = 400 mg, By Mouth, Daily, # 30 tablet, 11 Refills, Maintenance, 04/27/22 15:29:00 EST, Tablet, [facility], Partial fill upon patient request if the prescription is for a schedule II opioid drug., 188, cm, 04/27/22 13:44:00 EST, Hei... Start Date: 04/27/22 Status: Ordered meloxicam 15 mg oral tablet 1 tablet = 15 mg, By Mouth, Daily, Take with food PRN back pain Portuguese, # 14 tablet, 0 Refills, Maintenance, 11/25/21 13:26:00 EDT, [facility], Partial fill upon patient request if the prescription is for a schedule II opioid drug., 188,... Start Date: 11/25/21 Stop Date: 12/09/21 Status: Ordered metFORMIN 750 mg oral tablet, extended release 1 tablet = 750 mg, By Mouth, Daily, [replaces the metformin 500mg bid], # 30 tablet, 5 Refills, Maintenance, 11/01/22 8:40:00 EDT, ER Tablet, [facility], Partial fill upon patient request if the prescription is for a schedule II opioid drug.... Start Date: 11/01/22 Status: Ordered methadone 10 mg oral tablet See Instructions, By mouth. 2 tab in AM, 1.5 midday, 2 in evening;for pain. IDC10: G90.5 CRPS. 28 day supply. [facility]., # 154 tablet, 0 Refills, Maintenance, pain, 03/27/23 10:28:00 EST,[facility], August partial fill., 03/27/23... Start Date: 03/27/23 Status: Ordered methadone 10 mg oral tablet See Instructions, By mouth. 2 tab in AM, 1.5 midday, 2 in evening;for pain. IDC10: G90.5 CRPS. 28 day supply. [facility]., # 154 tablet, 0 Refills, Maintenance, pain, 02/27/23 10:28:00 EST,[facility], August partial fill., 02/27/23... Start Date: 02/27/23 Status: Ordered methadone 10 mg oral tablet See Instructions, By mouth. 2 tab in AM, 1.5 midday, 2 in evening;for pain. IDC10: G90.5 CRPS. 28 day supply. [facility]. Early fill before travel., # 154 tablet, 0 Refills, Maintenance, pain, 02/27/23 14:24:00 EST, [facility],... Start Date: 02/27/23 Status: Ordered methadone 10 mg oral tablet See Instructions, By mouth. 2 tab in AM, 1.5 midday, 2 in evening;for pain. IDC10: G90.5 CRPS. 28 day supply. [facility]., # 154 tablet, 0 Refills, Maintenance, pain, 01/30/23 14:06:00 EDT,[facility], August partial fill., 01/30/23... Start Date: [...] 1 Refills, Soft Stop, 02/16/22 23:38:00 EDT, [facility], 188, cm, 02/16/22 13:07:00 EDT, Height,122.63, [...] Date: 02/16/22 Status: Ordered PEN NEEDLES MIS [id number] PEN NEEDLES MIS [id number], See Instructions, # 100 each, 5 Refills, Maintenance, USE DAILY TYPE 2 DIABETES MELLITUS ON INSULIN WITH PEN, 08/25/22 16:39:00 EDT, 188, cm, 07/18/22 14:01:00 EDT, Height, 122.63, kg, 11/22/21 16:37:00 EDT, Dry Weight Start Date: 08/25/22 Status: Ordered Pen [place], 31 G x 8 mm BD Ultra [...] 02/18/23 19:20:00 EST, Route to Pharmacy Electronically, [facility], 188, cm, 01/30/23 13:26:00 EDT, Height, 126, kg, 01/30/23 13:26:00 EDT, Dry Weight Start Date: 02/18/23 Status: Ordered Tab-A-Kelsie oral tablet 1 tablet, By Mouth, Daily, # 30 tablet, 5 Refills, Maintenance, 12/19/22 20:41:00 EDT, [facility], 30, TAKE 1 TABLET BY MOUTH EVERY DAY, 188, cm, 10/19/22 13:16:00 EDT, Height, 122.63, kg, 11/22/21 16:37:00 EDT, Dry Weight Start Date: 12/19/22 Status: Ordered tamsulosin 0.4 mg oral capsule 0.8 mg, 2, capsule, By Mouth, Daily, dose increase, # 60 capsule, Refills 11, Tot. Refills 11, Maintenance, 07/27/22 11:57:00 EDT, Route to Pharmacy Electronically, [facility], 188, cm, 07/18/22 14:01:00 EDT, Height, 122.63, kg, 11/22/21 16:... Start Date: 07/27/22 Status: Ordered Test Strips See Instructions, # 100 each, Refills 5, Tot. Refills 5, Maintenance, Precision Ganga strips (for Freestyle Tatyana glucometer). Type 2 diabetes mellitus on insulin (E11, Z79.4). Test 2-4x/day if symptoms, or sensor concerns., 02/08/23 10:36:00 EDT, [facility]... Start Date: 02/08/23 Status: Ordered Test Strips [...] Intramuscular, Every 14 days, IM or subcutaneous. [facility]., # 2 mL, 5 Refills, Maintenance, 10/27/22 17:23:00 EDT, [facility], 188, cm, 10/19/22 13:16:00 EDT, Height, 122.63, kg, 11/22/21 16:37:00 EDT, Dry Weight Start Date: 10/27/22 Status: Ordered tiZANidine 4 mg oral tablet 4 mg, 1, tablet, By Mouth, 3 times a day, PRN, # 90 tablet, Refills 11, Tot. Refills 11, Maintenance, as needed for muscle spasm, 08/18/22 8:03:00 EDT, Route to Pharmacy Electronically, [facility], 188, cm, 07/18/22 14:01:00 EDT, Height, 122... Start Date: 08/18/22 Status: Ordered Toujeo Max SoloStar 300 units/mL subcutaneous solution = 90 units, Subcutaneous Injection, Daily, # 12 mL, 11 Refills, Maintenance, 02/08/23 10:15:00 EDT,Solution, [facility], replaces Lantus due to insurance coverage, 188, cm, 01/30/23 13:26:00 EDT, Height, 126, kg, 01/30/23 13:26:00 EDT, Dry... Start Date: 02/08/23 Status: Ordered traZODone 100 mg oral tablet TAKE ONE TO TWO TABLETS BY MOUTH AT BEDTIME NEEDED SZayra Morales Start Date: 05/11/20 Status: Ordered Tylenol Extra Strength 500 mg oral tablet 2 tablet = 1,000 mg, By Mouth, 3 times a day, # 30 tablet, 11 Refills, Maintenance, 03/24/21 21:00:00 EST, [facility], 188, cm, 03/22/21 14:17:00 EST, Height, 125.2, kg, 06/20/20 14:28:00 EST, Dry Weight Start Date: 03/24/21 Status: Ordered Victoza 18 mg/3 mL subcutaneous solution = 1.8 mg, Subcutaneous Injection, Daily, # 9 mL, 11 Refills, Maintenance, 02/08/23 10:25:00 EDT, Solution, [facility], replaces semaglutide, 188, cm, 01/30/23 13:26:00 [...] ? chr regional pain syndrome 4s/p Modified [place] procedure, repair of conjoined tendon of extensor [...] Care team information Care Team Personnel Name: Juve REYNA, Shoaib Position: [facility] RN Supv Member Role: Primary Care Nurse Name: Donvoan DE LOS SANTOS, Vamshi Oshea Position: [facility] Physician - Primary Care Member Role: PCP Address: Address: [address] [place] [address]- Name: Luz Potter Position: [facility] Outreach Member Role: Lifetime Consulting Physician Name: Michael DE LOS SANTOS, Miki Position: [facility] Renal MD Member Role: Lifetime Consulting Physician Address: Address: [address] [facility] [place] [address]- Care Team Related Persons Name: BRANDON MTZ Address: home [address] [place] [address] Name: BRANDON BARKER Address: home [address] [place] [address] Name: ROSALINDA BERTRAND Address: home [address] [place] [address]
--- OUTSIDE RECORDS SUMMARY | 2023-10-11 08:08 | XMS_ITS | Continuity of Care Document ---
Author Organization [facility] Address [address] [place] [id number]- Care Team Providers Care Fibre Cement Moulder Name Role Phone Vamshi Man MD Primary Care Physician Encounter [facility] Date(s): 08/23/23 - 10/06/23 [facility]/[address] [address]- Attending Physician: Nik Reynolds MD Admitting Physician: Nik Reynolds MD Allergies, Adverse Reactions, Alerts Substance Reaction Severity Status penicillin 1 rash Resolved penicillins Active Latex RASH Active Other Food Allergy fresh peaches - itch y mouth, throat and lips swell Active 1rash per mother as child. Did take a penicillin for treatment of H pylori per pt w/o problem. Immunizations Given and Recorded Vaccine Date Status Refusal Reason SARS-CoV-2(COVID-19)mRNA-LNP vac([id number]) 01/30/23 Given influenza virus vaccine, inactivated 01/05/23 [...] influenza virus vaccine, inactivated 03/19/06 Give n [id number] 12y+ bivalent booster vax 02/16/22 Given pneumococcal 20-valent conjugate vaccine 02/16/22 Given Influenza Virus Vaccine (oldterm) 9 01/27/22 Recor ded Influenza Virus Vaccine (oldterm) 01/26/21 Recorde d SARS-CoV-2 mRNA ([id number]) vax 11/11/21 Given SARS-CoV-2 (COVID-19) mRNA BNT-162b2 [...] Elissa Bertrand 13Result Comment: [11/27/2017] REceived at [facility] on [facility] [place], [place]; ordered by Dr Michael Oliveira 14Location [...] 11 Refills, Maintenance, 02/08/23 10:21:00 EDT, Powder, [facility], replaces Flovent due to insurance coverage, 188, cm, 01/30/23 13:26:00 EDT, Height, 126, kg, 01/30/23 13:26:00 EDT,... Start Date: 02/08/23 Status: Ordered Aspirin Low Dose 81 mg oral delayed release tablet 1 tablet, By Mouth, Daily, # 90 tablet, 4 Refills, Maintenance, 03/01/23 17:49:00 EST, [facility], 188, cm, 01/30/23 13:26:00 EDT, Height, 126, kg, 01/30/23 13:26:00 EDT, Dry Weight Start Date: 03/01/23 Status: Ordered atorvastatin 40 mg oral tablet 1 tablet, By Mouth, Daily, # 90 tablet, 1 Refills, Maintenance, 07/25/23 20:12:00 EDT, [facility], 188, cm, 07/05/23 11:09:00 EDT, Height, 126.09, [...] 2 Refills, Maintenance, 04/27/22 23:43:00 EST, Cream, [facility], 1 application Topically 2 times a day,Instr:apply to penile rash, 188, cm, 04/27/22 13:44:00 EST, Heigh... Start Date: 04/27/22 Status: Ordered diazepam 10 mg oral tablet See Instructions, PRN, 1 tablet By Mouth 1 hr before MRI, # 1 tablet, Refills 2, Tot. Refills 2, Maintenance, as needed for anxiety, 01/30/23 15:02:00 EDT, Instructions Replace Required Details, Route to Pharmacy Electronically, [facility],... Start Date: 01/30/23 Status: Ordered diclofenac 1% topical gel = 2 Gm, Topically, 4 times a day, PRN for pain, (danish) not to exceed: 16 gm/day/joint lower limb8 gm/day/joint of upper limb 32 gm/day may interchange for cream, # 100 Gm, 11 Refills, Maintenance, 04/15/22 13:02:00 EST, Gel, [facility]... Start Date: 04/15/22 Status: Ordered docusate [...] 16 Gm, 11 Refills, Maintenance, 07/09/23 11:37:00EDT, [place], [facility], Partial fill upon patient request if the prescription is for a schedule II opioid drug., 2 sprays Nares, Both 2 times... Start Date: 07/09/23 Status: Ordered Freestyle Tatyana [place] Freestyle Tatyana [place], See Instructions, # 1 each, Refills 0, [...] days., 08/11/23 11:15:00 EDT, Recently sent to [facility]... Start Date: 08/11/23 Status: Ordered [...] 11 Refills, Maintenance, 11/28/21 21:27:00 EDT, Solution, [facility], 188, cm, 11/22/21 16:37:00 EDT, Height, [...] Gm, 5 Refills, Maintenance, 12/22/21 7:28:00 EDT, [facility], same Rx was sent 11/11 w/ [...] tablet, 0 Refills, Maintenance, pain, 10/09/23 21:08:00 EDT,[facility], May partial fill., 0... Start Date: 10/09/23 Status: Ordered methadone 10 mg oral tablet See Instructions, By mouth. 2 tab in AM, 1.5 midday, 2 in evening;for pain. IDC10: G90.5 CRPS. 28 day supply. [facility]., # 154 tablet, 0 Refills, Maintenance, pain, 09/11/23 21:08:00 EDT,[facility], May partial fill., 0... Start Date: 09/11/23 Status: Ordered methadone 10 mg oral tablet See Instructions, By mouth. 2 tab in AM, 1.5 midday, 2 in evening;for pain. IDC10: G90.5 CRPS. 28 day supply. [facility]., # 154 tablet, 0 Refills, Maintenance, pain, 08/14/23 21:08:00 EDT,[facility], August partial fill., 0... Start Date: 08/14/23 Status: Ordered methadone 10 mg oral tablet See Instructions, By mouth. 2 tab in AM, 1.5 midday, 2 in evening;for pain. IDC10: G90.5 CRPS. 28 day supply. [facility]., # 154 tablet, 0 Refills, Maintenance, pain, 04/24/23 22:44:00 EST,[facility], August partial fill., 188, cm,... Start [...] 1 Refills, Soft Stop, 02/16/22 23:38:00 EDT, [facility], 188, cm, 02/16/22 13:07:00 EDT, Height,122.63, kg, 11/22/21 16:37:00 EDT, Dry Weight Start Date: 02/16/22 Status: Ordered ondansetron 4 mg oral tablet Rx by Idalia Sandoval, # 60, Maintenance, 08/11/23 11:48:00 EDT Start Date: 08/11/23 Status: Ordered pantoprazole 40 mg oral delayed release tablet 0 Refills, Maintenance, 02/16/22 23:33:00 EDT Start Date: 02/16/22 Status: Ordered Pen [place], 31 G x 8 mm BD Ultra [...] 02/18/23 19:20:00 EST, Route to Pharmacy Electronically, [facility], 188, cm, 01/30/23 13:26:00 EDT, Height, [...] tablet, 5 Refills, Maintenance, 07/09/23 11:09:00 EDT, [facility], 30, 1 tablet By Mouth Daily, 188, cm, 07/05/23 11:09:00 EDT, Height, 126.09, kg, 04/26/23 13:06:00 EST, Dry Weight Start Date: 07/09/23 Status: Ordered tamsulosin 0.4 mg oral capsule 0.8 mg, 2, capsule, By Mouth, Daily, dose increase, # 180 capsule, Refills 11, Tot. Refills 11, Maintenance, 07/26/23 14:15:00 EDT, Route to Pharmacy Electronically, [facility], 188, cm, 07/26/23 13:30:00 EDT, Height, 121.81, kg, 07/26/23 13... Start Date: 07/26/23 Status: Ordered Test Strips See Instructions, # 100 each, Refills 5, Tot. Refills 5, Maintenance, Precision Ganga strips (for Freestyle Tatyana glucometer). Type 2 diabetes mellitus on insulin (E11, Z79.4). Test 2-4x/day if symptoms, or sensor concerns., 02/08/23 10:36:00 EDT, [place]... Start Date: 02/08/23 Status: Ordered Test Strips [...] Intramuscular, Every 14 days, IM or subcutaneous. [facility]., # 2 mL, 5 Refills, Maintenance, 08/11/23 11:20:00 EDT, [facility], Last sent to [facility]. Sending now to [facility] due to pt request msg [email or web address]... Start Date: 08/11/23 Status: Ordered tiZANidine 4 mg oral tablet 4 mg, 1, tablet, By Mouth, 3 times a day, PRN, # 90 tablet, Refills 11, Tot. Refills 11, Maintenance, as needed for muscle spasm, 09/10/23 13:47:00 EDT, Route to Pharmacy Electronically, [facility], 188, cm, 07/26/23 17:37:00 EDT, Height, 12... Start Date: 09/10/23 Status: Ordered Toujeo Max SoloStar 300 units/mL subcutaneous solution = 70 units, Subcutaneous Injection, Daily, decrease frin 90u, # 12 mL, 11 Refills, Maintenance, 07/26/23 14:19:00 EDT, Solution, [facility], replaces Lantus due to insurance coverage, 188, cm, 07/26/23 13:30:00 EDT, Height, 121.81, kg, 07/25... Start Date: 07/26/23 Status: Ordered Tylenol Extra Strength 500 mg oral tablet 2 tablet = 1,000 mg, By Mouth, 3 times a day, # 30 tablet, 11 Refills, Maintenance, 03/24/21 21:00:00 EST, [facility], 188, cm, 03/22/21 14:17:00 EST, Height, 125.2, kg, 06/20/20 14:28:00 EST, Dry Weight Start Date: 03/24/21 Status: Ordered Vitamin D3 1000 intl units oral tablet 1 tablet, By Mouth, Daily, # 90 tablet, 4 Refills, Maintenance, 04/01/23 22:28:00 EST, [facility], 188, cm, 01/30/23 13:26:00 EDT, Height, [...] ? chr regional pain syndrome 4s/p Modified [place] procedure, repair of conjoined tendon of extensor [...] Team Personnel Name: Shoaib An RN Position: [facility] RN Supv Member Role: Primary Care Nurse Name: Vamshi Man MD Position: [facility] Physician - Primary Care Member Role: PCP Address: Address: [address] [place] [address]- Name: Luz Potter Position: [facility] Outreach Member Role: Lifetime Consulting Physician Name: Miki Rodriguez MD Position: [facility] Renal MD Member Role: Lifetime Consulting Physician Address: Address: [address] [facility] [address]- Care Team Related Persons Name: BRANDON MTZ Address: home [address] [place] [address] Name: BRANDON BARKER Address: home [address] [place] [address] Name: ROSALINDA BERTRAND
--- OUTSIDE RECORDS SUMMARY | 2023-10-11 08:08 | XMS_ITS | Continuity of Care Document ---
Author Organization [facility] Address [address] [place] [id number]- Care Team Providers Care Phlebotomy Director Name Role Phone Vamshi Man MD Primary Care Physician Encounter [facility] Date(s): 10/19/20 - 11/21/20 [facility]/[address] [address]- Attending Physician: Vamshi Man MD Admitting Physician: Vamshi Man MD Referring Physician: Vamshi Man MD Allergies, Adverse Reactions, [...] Elissa Bertrand 12Result Comment: [11/27/2017] REceived at [facility] [place], [place]; ordered by Dr Michael Oliveira 13Location [...] 7x/wk total. Dx: E11, 11/18/20 15:30:00 EDT, [facility], 188, cm, 09/22/20 8:33:00 EDT, Height, [...] tablet, 5 Refills, Maintenance, 11/18/20 15:30:00 EDT, [facility], 188, cm, 09/22/20 8:33:00 EDT, Height, [...] capsule, 3 Refills, Maintenance, 03/30/20 21:36:00 EST, [facility], 185, cm, 02/25/20 10:29:00 EST, Height, 126.81, kg, 02/25/20 10:29:00 EST, Dry Weight Start Date: 03/30/20 Status: Ordered clotrimazole 1% topical cream 1 application, Topically, 2 times a day, apply to penile rash, # 30 Gm, 2 Refills, Maintenance, 01/07/20 14:49:00 EDT, Cream, [facility], 1 application Topically 2 times a day,Instr:apply to penile rash, 185, cm, 01/07/20 13:55:00 EDT, Heigh... Start Date: 01/07/20 Status: Ordered Cozaar 100 mg oral tablet 1 tablet = 100 mg, By Mouth, Daily in AM, # 30 tablet, 11 Refills, Maintenance, 09/22/20 9:41:00 EDT, Tablet, [facility], duplicate rx. original sent 09/16/19. remaining [...] 06/25/20 15:39:00 EST, Route to Pharmacy Electronically, [facility], Partial f... Start Date: 06/25/20 Status: Ordered diclofenac 1% topical gel = 2 Gm, Topically, 4 times a day, PRN for pain, (tunisian) not to exceed: 16 gm/day/joint lower limb8 gm/day/joint of upper limb 32 gm/day may interchange for cream, # 100 Gm, 5 Refills, Maintenance,07/08/20 15:35:00 EDT, Gel, [facility] Start Date: 07/08/20 Status: Ordered docusate [...] 11 Refills, Maintenance, 02/15/20 21:05:00 EST, Solution, [facility], 185, cm, 01/07/20 13:55:00 EDT, Height, [...] control, 12/22/19 10:32:00 EDT, Compound Start Date: 9/7/20 Status: Ordered ketotifen 0.025% ophthalmic solution INSTILL 1 DROP INTO AFFECTED EYE TWICE A DAY Dr Poe Start Date: 05/11/20 Status: Ordered Lantus Solostar Pen 100 units/mL subcutaneous solution = 90 units, Subcutaneous Infusion, Daily at bedtime, # 30 mL, 3 Refills, Maintenance, 07/08/20 15:42:00 EDT, [facility], Duplicate rx-Original rx sent 06/22/20. Resent., 188, cm, 07/08/20 13:42:00 EDT, Height, 125.2, kg, 06/20/20 14:28:00 EST,... Start Date: 07/08/20 Status: Ordered latanoprost 0.005% ophthalmic solution 0 Refills, Maintenance, 05/11/20 16:57:00 EST Start Date: 05/11/20 Status: Ordered lidocaine 5% topical ointment See Instructions, 1 APPLICATION TOPICALLY 3 TIMES A DAY, # 70.88 Gm, 4 Refills, Acute, [facility], 14, 1 APPLICATION TOPICALLY 3 TIMES A DAY, 188, cm, 09/22/20 8:33:00 EDT, Height, 125.2, kg, 06/20/20 14:28:00 EST, Dry Weight Start Date: 11/08/20 Status: Ordered Lipitor 40 mg oral tablet 1 tablet = 40 mg, By Mouth, Daily, # 90 tablet, 3 Refills, Maintenance, 03/30/20 21:30:00 EST, [facility], duplicate rx. original sent 11/04/19. remaining refill sent., 185, cm, 02/25/20 10:29:00 EST, Height, 126.81, kg, 02/25/20 10:29:00 EST... Start Date: 03/30/20 Status: Ordered LORazepam 1 mg oral tablet See Instructions, PRN for anxiety, 2 tablets By Mouth 1 hours prior to MRI, # 2 tablet, 0 Refills, Acute 09/22/21 9:45:00 EDT, 09/22/20 9:43:00 EDT, Tablet, [facility], Partial fill upon patient request if [...] 3 Refills, Maintenance, 07/08/20 15:40:00 EDT, Tablet, [facility], Duplicate rx-Original rx sent06/22/20. Resent., 188, cm, 07/08/20 13:42:00 EDT, He... Start Date: 07/08/20 Status: Ordered methadone 10 mg oral tablet See Instructions, By mouth. 2 tab in AM, 1.5 midday, 2 in evening;for pain. IDC10: G90.5 CRPS. 28 day supply. [facility]., # 154 tablet, 0 Refills, Maintenance, pain, 11/09/20 9:00:00 EDT, [facility], May partial fill., 11/09/20,... Start Date: 11/09/20 Status: Ordered methadone 10 mg oral tablet See Instructions, By mouth. 2 tab in AM, 1.5 midday, 2 in evening;for pain. IDC10: G90.5 CRPS. 28 day supply. [facility]., # 154 tablet, 0 Refills, Maintenance, pain, 12/07/20 9:00:00 EDT, [facility], May partial fill., 12/07/20,... Start Date: [...] Start Date: 05/15/18 Status: Ordered nystatin-triamcinolone topical 052673 u/gm-0.1% ointment 1 applicator, Topically, 3 times a day, to foreskin area FOR 3 DAYS then switch to other antifungal, # 15 Gm, 1 Refills, Maintenance, 07/08/20 15:34:00 EDT, [facility], 1 applicator Topically 3 times a [...] EDT Start Date: 08/20/18 Status: Ordered Pen [place], 31 G x 8 mm BD Ultra [...] 03/30/20 21:31:00 EST, Route to Pharmacy Electronically, [facility], 185, cm, 02/25/20 10:29:00 EST, Height, [...] solution 0.75 mL, Intramuscular, Every 14 days, [facility], # 5 mL, 5 Refills, Maintenance, 08/29/20 21:33:00 EDT, [facility], 188, cm, 07/08/20 13:42:00 EDT, Height, 125.2, kg, 06/20/20 14:28:00 EST, Dry Weight Start Date: 08/29/20 Status: Ordered tiZANidine 4 mg oral tablet 4 mg, 1, tablet, By Mouth, 3 times a day, PRN, # 90 tablet, Refills 11, Tot. Refills 11, Maintenance, as needed for muscle spasm, 07/08/20 15:40:00 EDT, Route to Pharmacy Electronically, [facility], 188, cm, 07/08/20 13:42:00 EDT, Height, [...]
--- OUTSIDE RECORDS SUMMARY | 2023-10-11 08:08 | XMS_ITS | Continuity of Care Document ---
Author Organization [facility] Address [address] [place] [address]- Care Team Providers Care Middle School Counselor Name Role Phone Vamshi Man MD Primary Care Physician [phone] Encounter [facility] Date(s): 01/04/19 - 05/04/[address] [facility] [address] [address]- [facility] Attending Physician: Sarah Arauz MD Admitting Physician: Sarah Arauz MD Referring Physician: Vamshi Man MD Allergies, [...] Elissa Bertrand 11Result Comment: [11/27/2017] REceived at [facility] [place], [place]; ordered by Dr Michael Oliveira 12Location [...] 30 tablet, Refills 11, Tot. Refills 11, 10/30/18 7:28:48 EDT, Route to Pharmacy Electronically, [id number], [facility] Start Date: 10/30/18 Status: Ordered AutoCPAP 9-18 with heated humidification [...] apply to penile rash, # 30 Gm, 0 Refills, Maintenance, 12/25/18 10:16:01 EDT, Cream, 1 application Topically 2 times a day,Instr:apply to penile rash Start Date: 12/25/18 Status: Ordered Cozaar 100 mg oral tablet 1 tablet = 100 mg, By Mouth, Daily in AM, # 30 tablet, 11 Refills, Maintenance, 08/20/18 21:51:53 EDT, Tablet Start Date: 08/20/18 Status: Ordered diclofenac 1% topical gel = 2 Gm, Topically, 4 times a day, PRN for pain, (cayman islander) not to exceed: 16 gm/day/joint lower limb8 gm/day/joint of upper limb 32 gm/day, # 100 Gm, 5 Refills, Maintenance, 12/25/18 10:40:26 EDT, Gel, 2 Gm Topically 4 times a day,PRN:for pain,Inst... Start Date: 12/25/18 Status: Ordered docusate sodium/sennosides 50/8.6mg docusate sodium/sennosides 50/8.6mg, 1-3 tablet, By Mouth, 2 times a day, PRN Constipation, # 100 tablet, Refills 11, Tot. Refills 11, Maintenance, 08/22/17 20:25:34 EDT, Compound Start Date: 08/22/17 Status: Ordered dulaglutide 1.5 mg/0.5 mL subcutaneous solution 0.5 mL = 1.5 mg, Subcutaneous Injection, Every week, replaces Victoza, # 2.5 mL, 11 Refills, Maintenance, 02/12/19 10:31:58 EDT, Solution Start Date: 02/12/19 Status: Ordered EpiPen 2-Deejay 0.3 mg injectable [...] Freestyle Lite Test Strips See Instructions, # 50 each, Refills 5, Tot. Refills 5, Maintenance, 7x per week as needed. Dx: E11, 12/25/18 9:47:20 EDT, Compound Start Date: 12/25/18 Status: Ordered Jardiance 10 mg oral tablet 1 tablet, By Mouth, Daily in AM, # 30 tablet, 1 Refills, Maintenance, 04/15/19 5:02:00 EST, [facility], 185, cm, 02/12/19 9:28:00 EDT, Height, 123.7, kg, 08/22/18 12:59:00 EDT, Dry Weight Start Date: 04/15/19 Status: Ordered Lantus Solostar Pen 100 units/mL subcutaneous solution = 90 units, Subcutaneous Infusion, Daily at bedtime, # 15 mL, 11 Refills, Maintenance, 03/18/19 10:56:08 EST, 40u Rx written yesterday was error, 185, cm, 02/12/19 9:28:19 EDT, Height, 123.7, kg, 08/22/18 12:59:19 EDT, Dry Weight Start Date: 03/18/19 Status: Ordered latanoprost 0.005% ophthalmic solution 1 drops, Eyes, Both, Daily at bedtime, cover gap- [employer] Dr Broussard, # 2.5 mL, 1 Refills, Maintenance, 02/25/14 10:47:09, Ophth Solution, 1 drops Eyes, Both Daily at bedtime,Instr:cover gap-[employer] Dr Broussard Start Date: 02/25/14 Status: Ordered lidocaine 4% topical cream 1 application, Topically, 3 times a day, may interchange 3-5% cream or ointment or 2% gel per insurance coverage., # 60 Gm, 5 Refills, Maintenance, 12/25/18 10:40:51 EDT, 1 application Topically 3 times a day,Instr:may interchange 3-5% cream or ointme... Start Date: 12/25/18 Status: Ordered Linzess 145 mcg oral capsule TAKE 1 CAPSULE BY MOUTH 30 MINUTES BEFORE MEAL (constipation) Start Date: 03/31/17 Status: Ordered Lipitor 40 mg oral tablet 1 tablet = 40 mg, By Mouth, Daily, # 30 tablet, 5 Refills, Maintenance, Route to Pharmacy Electronically, [id number], [facility] Start Date: 10/28/18 Status: Ordered metFORMIN 500 mg oral tablet, extended release 2 tablet = 1,000 mg, By Mouth, 2 times a day, (not the 1000mgER form due to cost), # 120 tablet, 11Refills, Maintenance, 03/18/19 10:55:38 EST, 185, cm, 02/12/19 9:28:19 EDT, Height, 123.7, kg, 08/22/18 12:59:19 EDT, Dry Weight Start Date: 03/18/19 Status: Ordered methadone 10 mg oral tablet See Instructions, PRN Pain , Severe, By mouth. 2 tab in AM, 1.5 midday, 2 in evening;for pain. IDC10: G90.5 CRPS. 28 day supply. [facility]., # 154 tablet, 0 Refills, Maintenance, pain, 05/01/19 19:01:00 EST, [facility],... Start Date: 05/01/19 Status: Ordered methadone 10 mg oral tablet See Instructions, By mouth. 2 tab in AM, 1.5 midday, 2 in evening;for pain. IDC10: G90.5 CRPS. 28 day supply. [facility]., # 154 tablet, 0 Refills, Maintenance, pain, 05/01/19 19:01:00 EST, [facility], May partial fill.,... Start Date: 05/01/19 Status: Ordered Metoclopramide = 10 mg, By [...] Start Date: 05/15/18 Status: Ordered nystatin topical 216106 u/gm cream 1 application, Topically, 2 times a day, for fungal rash, # 30 Gm, 0 Refills, Maintenance, 12/27/1710:41:38, Cream, 1 application Topically 2 times a day,x14 days,Instr:for fungal rash Start Date: 12/27/16 Stop Date: 01/10/17 Status: Ordered nystatin-triamcinolone topical 637878 u/gm-0.1% ointment 1 applicator, Topically, 3 times [...] 21:41:59 EDT Start Date: 08/20/18 Status: Ordered Protonix 40 mg oral granule [...] 11/29/18 11:27:43 EDT, Route to Pharmacy Electronically, [id number], [facility] Start Date: 11/29/18 Status: Ordered Testosterone Cypionate = 0.75 mg, Intramuscular, Every 14 days, Adm. today to Lot [id number] exp: 02/2020, 0 Refills, Maintenance, 11/14/18 14:06:08 EDT Start Date: 11/14/18 Status: Ordered testosterone enanthate 200 mg/mL intramuscular solution 0.75 mL, Intramuscular, Every 14 days, [facility], # 5 mL, 5 Refills, Maintenance, 12/25/18 9:56:09 EDT Start Date: 12/25/18 Status: Ordered tiZANidine 4 mg oral tablet 4 mg, 1, tablet, By Mouth, 3 times a day, PRN, # 90 tablet, Refills 11, Tot. Refills 11, Maintenance, as needed for muscle spasm, 02/04/19 21:34:51 EDT, Route to Pharmacy Electronically, NCPDP_[id number], [facility] Start Date: 02/04/19 Status: Ordered Problem [...] of cervical a nd lumbar spine(Confirmed) Active Type 2 diabetes mellitus (wi th diabetic polyneuropathy)(Confirmed) Active 1C5-6 Left 22 surgery R foot ankle w hardware lateral foot and ?tendon at lat malleolus. 3R Foot- ? chr regional pain syndrome 4s/p Modified [place] procedure, repair of conjoined tendon of extensor [...] more than 30 days ago entered on: 02/12/19 Sex Male
--- OUTSIDE RECORDS SUMMARY | 2023-10-11 08:09 | XMS_ITS | Continuity of Care Document ---
Author Organization [facility] Address [address] [place] [id number]- Care Team Providers Care Senior Web Developer Name Role Phone Vamshi Man MD Primary Care Physician [phone] Encounter [facility] Date(s): 07/25/23 - 08/24/23 [facility]/[address] [address]- Allergies, Adverse Reactions, Alerts Substance Reaction Severity Status penicillin 1 rash Resolved penicillins Active Latex RASH Active Other Food Allergy fresh peaches - itch y mouth, throat and lips swell Active 1rash per mother as child. Did take a penicillin for treatment of H pylori per pt w/o problem. Immunizations Given and Recorded Vaccine Date Status Refusal Reason SARS-CoV-2(COVID-19)mRNA-LNP vac([id number]) 01/30/23 Given influenza virus vaccine, inactivated 01/05/23 [...] influenza virus vaccine, inactivated 03/19/06 Give n [id number] 12y+ bivalent booster vax 02/16/22 Given pneumococcal 20-valent conjugate vaccine 02/16/22 Given Influenza Virus Vaccine (oldterm) 9 01/27/22 Recor ded Influenza Virus Vaccine (oldterm) 01/26/21 Recorde d SARS-CoV-2 mRNA ([id number]) vax 11/11/21 Given SARS-CoV-2 (COVID-19) mRNA BNT-162b2 [...] Elissa Bertrand 13Result Comment: [11/27/2017] REceived at [facility] [place], [place]; ordered by Dr Michael Oliveira 14Location [...] 11 Refills, Maintenance, 02/08/23 10:21:00 EDT, Powder, [facility], replaces Flovent due to insurance coverage, 188, cm, 01/30/23 13:26:00 EDT, Height, 126, kg, 01/30/23 13:26:00 EDT,... Start Date: 02/08/23 Status: Ordered Aspirin Low Dose 81 mg oral delayed release tablet 1 tablet, By Mouth, Daily, # 90 tablet, 4 Refills, Maintenance, 03/01/23 17:49:00 EST, [facility], 188, cm, 01/30/23 13:26:00 EDT, Height, 126, kg, 01/30/23 13:26:00 EDT, Dry Weight Start Date: 03/01/23 Status: Ordered atorvastatin 40 mg oral tablet 1 tablet, By Mouth, Daily, # 90 tablet, 1 Refills, Maintenance, 07/25/23 20:12:00 EDT, [facility], 188, cm, 07/05/23 11:09:00 EDT, Height, 126.09, [...] 2 Refills, Maintenance, 04/27/22 23:43:00 EST, Cream, [facility], 1 application Topically 2 times a day,Instr:apply to penile rash, 188, cm, 04/27/22 13:44:00 EST, Heigh... Start Date: 04/27/22 Status: Ordered diazepam 10 mg oral tablet See Instructions, PRN, 1 tablet By Mouth 1 hr before MRI, # 1 tablet, Refills 2, Tot. Refills 2, Maintenance, as needed for anxiety, 01/30/23 15:02:00 EDT, Instructions Replace Required Details, Route to Pharmacy Electronically, [facility],... Start Date: 01/30/23 Status: Ordered diclofenac 1% topical gel = 2 Gm, Topically, 4 times a day, PRN for pain, ([place]) not to exceed: 16 gm/day/joint lower limb8 gm/day/joint of upper limb 32 gm/day may interchange for cream, # 100 Gm, 11 Refills, Maintenance, 04/15/22 13:02:00 EST, Gel, [facility]... Start Date: 04/15/22 Status: Ordered docusate [...] 16 Gm, 11 Refills, Maintenance, 07/09/23 11:37:00EDT, [place], [facility], Partial fill upon patient request if the prescription is for a schedule II opioid drug., 2 sprays Nares, Both 2 times... Start Date: 07/09/23 Status: Ordered Freestyle Tatyana Shady Side Freestyle Tatyana Shady Side, See Instructions, # 1 each, Refills 0, [...] days., 08/11/23 11:15:00 EDT, Recently sent to [facility]... Start Date: 08/11/23 Status: [...] 11 Refills, Maintenance, 11/28/21 21:27:00 EDT, Solution, [facility], 188, cm, 11/22/21 16:37:00 EDT, Height, [...] Gm, 5 Refills, Maintenance, 12/22/21 7:28:00 EDT, [facility], same Rx was sent 11/11 w/ [...] 3 Refills, Maintenance, 05/07/23 16:31:00 EST, Tablet, [facility], 188, cm, 04/26/23 13:06:00 EST, Height, 126.09, kg, 04/26/23 13:06:00 EST, Dry Weight Start Date: 05/07/23 Status: Ordered metFORMIN 750 mg oral tablet, extended release 1 tablet = 750 mg, By Mouth, Daily, [replaces the metformin 500mg bid], # 30 tablet, 5 Refills, Maintenance, 05/15/23 8:10:00 EST, ER Tablet, [facility], Partial fill upon patient request if the prescription is for a schedule II opioid drug.... Start Date: 05/15/23 Status: Ordered methadone 10 mg oral tablet See Instructions, By mouth. 2 tab in AM, 1.5 midday, 2 in evening;for pain. IDC10: G90.5 CRPS. 28 day supply. [facility]., # 154 tablet, 0 Refills, Maintenance, pain, 10/09/23 21:08:00 EDT,[facility], May partial fill., 0... Start Date: 10/09/23 Status: Ordered methadone 10 mg oral tablet See Instructions, By mouth. 2 tab in AM, 1.5 midday, 2 in evening;for pain. IDC10: G90.5 CRPS. 28 day supply. [facility]., # 154 tablet, 0 Refills, Maintenance, pain, 09/11/23 21:08:00 EDT,[facility], May partial fill., 0... Start Date: 09/11/23 Status: Ordered methadone 10 mg oral tablet See Instructions, By mouth. 2 tab in AM, 1.5 midday, 2 in evening;for pain. IDC10: G90.5 CRPS. 28 day supply. [facility]., # 154 tablet, 0 Refills, Maintenance, pain, 08/14/23 21:08:00 EDT,[facility], May partial fill., 0... Start Date: 08/14/23 Status: Ordered methadone 10 mg oral tablet See Instructions, By mouth. 2 tab in AM, 1.5 midday, 2 in evening;for pain. IDC10: G90.5 CRPS. 28 day supply. [facility]., # 154 tablet, 0 Refills, Maintenance, pain, 04/24/23 22:44:00 EST,[facility], May partial fill., 188, cm,... Start Date: 04/24/23 Status: Ordered Mounjaro 10 mg/0.5 mL subcutaneous solution = 10 mg, Subcutaneous Infusion, Every 7 days, please interchange with other Rx for 7.5 mg if unavailable., # 4 each, 11 Refills, Maintenance, 07/26/23 14:10:00 EDT, [facility], Partial fillupon patient request if the prescription is for a s... Start Date: 07/26/23 Status: Ordered Mounjaro 7.5 mg/0.5 mL subcutaneous solution = 7.5 mg, Subcutaneous Injection, Every week, rotate injection sites, # 4 each, 5 Refills, Maintenance, 07/07/23 17:04:00 EDT, Solution, [facility], should still have a couple months of [...] 1 Refills, Soft Stop, 02/16/22 23:38:00 EDT, [facility], 188, cm, 02/16/22 13:07:00 EDT, Height,122.63, kg, 11/22/21 16:37:00 EDT, Dry Weight Start Date: 02/16/22 Status: Ordered ondansetron 4 mg oral tablet Rx by Idalia Sandoval, # 60, Maintenance, 08/11/23 11:48:00 EDT Start Date: 08/11/23 Status: Ordered pantoprazole 40 mg oral delayed release tablet 0 Refills, Maintenance, 02/16/22 23:33:00 EDT Start Date: 02/16/22 Status: Ordered Pen [place], 31 G x 8 mm BD Ultra [...] 02/18/23 19:20:00 EST, Route to Pharmacy Electronically, [facility], 188, cm, 01/30/23 13:26:00 EDT, Height, [...] tablet, 5 Refills, Maintenance, 07/09/23 11:09:00 EDT, [facility], 30, 1 tablet By Mouth Daily, 188, cm, 07/05/23 11:09:00 EDT, Height, 126.09, kg, 04/26/23 13:06:00 EST, Dry Weight Start Date: 07/09/23 Status: Ordered tamsulosin 0.4 mg oral capsule 0.8 mg, 2, capsule, By Mouth, Daily, dose increase, # 180 capsule, Refills 11, Tot. Refills 11, Maintenance, 07/26/23 14:15:00 EDT, Route to Pharmacy Electronically, [facility], 188, cm, 07/26/23 13:30:00 EDT, Height, 121.81, kg, 07/26/23 13... Start Date: 07/26/23 Status: Ordered Test Strips See Instructions, # 100 each, Refills 5, Tot. Refills 5, Maintenance, Precision Ganga strips (for Freestyle Tatyana glucometer). Type 2 diabetes mellitus on insulin (E11, Z79.4). Test 2-4x/day if symptoms, or sensor concerns., 02/08/23 10:36:00 EDT, [place]... Start Date: 02/08/23 Status: Ordered Test Strips [...] Intramuscular, Every 14 days, IM or subcutaneous. [facility]., # 2 mL, 5 Refills, Maintenance, 08/11/23 11:20:00 EDT, [facility], Last sent to [facility]. Sending now to [facility] due to pt request msg [email or web address]... Start Date: 08/11/23 Status: Ordered tiZANidine 4 mg oral tablet 4 mg, 1, tablet, By Mouth, 3 times a day, PRN, # 90 tablet, Refills 11, Tot. Refills 11, Maintenance, as needed for muscle spasm, 08/18/22 8:03:00 EDT, Route to Pharmacy Electronically, [facility], 188, cm, 07/18/22 14:01:00 EDT, Height, 122... Start Date: 08/18/22 Status: Ordered Toujeo Max SoloStar 300 units/mL subcutaneous solution = 70 units, Subcutaneous Injection, Daily, decrease frin 90u, # 12 mL, 11 Refills, Maintenance, 07/26/23 14:19:00 EDT, Solution, [facility], replaces Lantus due to insurance coverage, 188, cm, 07/26/23 13:30:00 EDT, Height, 121.81, kg, 07/25... Start Date: 07/26/23 Status: Ordered Tylenol Extra Strength 500 mg oral tablet 2 tablet = 1,000 mg, By Mouth, 3 times a day, # 30 tablet, 11 Refills, Maintenance, 03/24/21 21:00:00 EST, [facility], 188, cm, 03/22/21 14:17:00 EST, Height, 125.2, kg, 06/20/20 14:28:00 EST, Dry Weight Start Date: 03/24/21 Status: Ordered Vitamin D3 1000 intl units oral tablet 1 tablet, By Mouth, Daily, # 90 tablet, 4 Refills, Maintenance, 04/01/23 22:28:00 EST, [facility], 188, cm, 01/30/23 13:26:00 EDT, Height, 126, [...] Team Personnel Name: Shoaib An RN Position: [facility] RN Supv Member Role: Primary Care Nurse Name: Donovan DE LOS SANTOS, Vamshi Oshea Position: [facility] Physician - Primary Care Member Role: PCP Address: Address: [address] [place] [address]- Name: Luz Potter Position: [facility] Outreach Member Role: Lifetime Consulting Physician Name: Miki Rodriguez MD Position: [facility] Renal MD Member Role: Lifetime Consulting Physician Address: Address: [address] [facility], [place] [address]- Care Team Related Persons Name: BRANDON MTZ Address: home [address] [place] [address] Name: BRANDON BARKER Address: home [address] [place] [address] Name: ROSALINDA BERTRAND
--- OUTSIDE RECORDS SUMMARY | 2023-10-11 08:09 | XMS_ITS | Continuity of Care Document ---
Author Organization [facility] Address Unknown Care Team Providers Care Bicycle Repairer Name Role Phone Vamshi Man MD Primary Care Physician Encounter [facility] [place] Date(s): 11/02/21 - 12/02/21 [facility] Allergies, Adverse Reactions, Alerts Substance Reaction Severity Status penicillin 1 rash Resolved Latex RASH Active Other Food Allergy fresh peaches - itch y mouth, throat and lips swell Active 1rash per mother as child. Did take a penicillin for treatment of H pylori per pt w/o problem. Immunizations Given and Recorded Vaccine Date Status Refusal Reason SARS-CoV-2 mRNA ([id number]) vax 11/11/21 Given SARS-CoV-2 (COVID-19) mRNA BNT-162b2 vac 02/23/21 Given SARS-CoV-2 (COVID-19) mRNA BNT-162b2 vac 1 05/20/20 Recorded SARS-CoV-2 (COVID-19) mRNA BNT-162b2 vac 04/29/20 Recorded Influenza Virus Vaccine (oldterm) 01/26/21 Recorde d influenza virus vaccine, inactivated 01/20/20 Give n influenza virus vaccine, inactivated 01/24/19 Give n influenza virus vaccine, inactivated 01/11/18 Ravindra rded influenza virus vaccine, inactivated 01/10/17 Give n influenza virus vaccine, inactivated 01/28/16 Ravindra rded influenza virus vaccine, inactivated 2 01/15/16 Re [...] Elissa Bertrand 12Result Comment: [11/27/2017] REceived at [facility] [place], [place]; ordered by Dr Michael Oliveira 13Location [...] into anterior thigh or lateral gluteal muscle, 12/01/21 10:53:00 EDT, 22G preferred w... Start Date: 12/01/21 Status: Ordered 3 mL syringe with 0.5-1.5 18G-21G needle 3 mL syringe with 0.5-1.5 18G-21G needle, See Instructions, # 4 each, Refills 1, Tot. Refills 1, Maintenance, for testosterone, withdrawing from vial., 12/01/21 10:53:00 EDT, 18G preferred if available, Supply, 188, cm, 11/22/21 16:37:00 EDT, Height,... Start Date: 12/01/21 Status: Ordered albuterol CFC free 90 mcg/inh [...] Daily, # 30 tablet, 5 Refills, Maintenance, 11/20/21 13:03:00 EDT, [facility], 188, cm, 11/11/21 12:46:00 EDT, Height, 125.2, kg, 06/20/20 14:28:00 EST, Dry Weight Start Date: 11/20/21 Status: Ordered atorvastatin 40 mg oral tablet 1 tablet, By Mouth, Daily, # 90 tablet, 1 Refills, [facility], 188, cm, 09/15/21 12:49:00EDT, Height, 125.2, kg, 06/20/20 14:28:00 EST, Dry Weight Start Date: 10/04/21 Status: Ordered AutoCPAP 9-18 with heated humidification AutoCPAP 9-18 with heated humidification, See Instructions, # 1 each, Refills 0, Tot. Refills 0, Maintenance, use [facility], 11/04/18 12:28:22 EDT, Compound Start Date: 11/04/18 Status: Ordered buPROPion 300 mg/24 hours (XL) [...] rash, # 30 Gm, 2 Refills, Maintenance, 09/15/21 14:49:00 EDT, Cream, [facility], 1 application Topically 2 times a day,Instr:apply to penile rash, 188, cm, 09/15/21 12:49:00 EDT, [facility]... Start Date: 09/15/21 Status: Ordered cyclobenzaprine 10 mg oral tablet 10 mg, 1, tablet, By Mouth, 3 times a day, PRN, do not drive after taking this medication, # 30 tablet, Refills 0, Tot. Refills 0, Maintenance, Spasm for spasm, 06/25/20 15:39:00 EST, Route to Pharmacy Electronically, [facility], Partial f... Start Date: 06/25/20 Status: Ordered diclofenac 1% topical gel = 2 Gm, Topically, 4 times a day, PRN for pain, (italian) not to exceed: 16 gm/day/joint lower limb8 gm/day/joint of upper limb 32 gm/day may interchange for cream, # 100 Gm, 5 Refills, Maintenance,07/08/20 15:35:00 EDT, Gel, [facility] Start Date: 07/08/20 Status: Ordered docusate [...] 2-Deejay 0.3 mg injectable kit Maria G Colaldo/Melissa, 0 Refills, Maintenance, 01/01/16 18:30:41 Start Date: 01/01/16 Status: Ordered esomeprazole 40 mg oral enteric coated capsule TAKE 1 CAPSULE BY MOUTH EVERY DAY Start Date: 05/11/20 Status: Ordered Flovent HFA 110 mcg/inh inhalation aerosol 2 puffs, Inhalation, 2 times a day, # 12 Gm, 0 Refills, Maintenance, 05/11/20 16:57:00 EST, Aerosol Start Date: 05/11/20 Status: Ordered fluticasone 50 mcg/inh nasal spray 0 Refills, Maintenance, 05/11/20 16:57:00 EST Start Date: 05/11/20 Status: Ordered gabapentin 600 mg oral tablet 1 tablet = 600 mg, By Mouth, 2 times a day, for 14 days, PRN back pain and sciatica May cause drowsiness, do not drive after taking Venezuelan, # 28 tablet, 0 Refills, Hard Stop 12/09/21 13:27:00 EDT, 11/25/21 13:27:00 EDT, [facility], Part... Start Date: 11/25/21 Stop Date: 12/09/21 Status: Ordered gabapentin 600 mg oral tablet 1 tablet = 600 mg, By Mouth, 2 times a day, PRN back pain and sciatica May cause drowsiness, do notdrive after taking Venezuelan, # 28 tablet, 0 Refills, Maintenance, 12/09/21 13:27:00 EDT, [facility], 188, cm, 11/22/21 16:37:00 EDT, [facility]... Start Date: 12/09/21 Stop Date: 12/23/21 Status: Ordered Glucose Monitor See Instructions, PRN, [...] 11 Refills, Maintenance, 11/28/21 21:27:00 EDT, Solution, [facility], 188, cm, 11/22/21 16:37:00 EDT, Height, 122.63, kg, 11/22/21 16:37:00 EDT, Dry We... Start Date: 11/28/21 Status: Ordered Jardiance 10 mg oral tablet 1 tablet, By Mouth, Daily in AM, # 30 tablet, 11 Refills, Maintenance, 07/25/21 20:18:00 EDT, [facility], 188, cm, 06/28/21 16:20:00 EDT, Height, 125.2, kg, 06/20/20 14:28:00 EST, Dry Weight Start Date: 07/25/21 Status: Ordered ketotifen 0.025% ophthalmic solution INSTILL [...] Dry Weight Start Date: 08/12/21 Status: Ordered Lantus Solostar Pen 100 units/mL subcutaneous solution = 90 units, Subcutaneous Infusion, Daily at bedtime, # 30 mL, 11 Refills, Maintenance, 01/14/21 18:16:00 EDT, [facility], 188, cm, 12/22/20 9:45:00 EDT, Height, 125.2, kg, 06/20/20 14:28:00EST, Dry Weight Start Date: 01/14/21 Status: Ordered latanoprost 0.005% ophthalmic solution 0 Refills, Maintenance, 05/11/20 16:57:00 EST Start Date: 05/11/20 Status: Ordered lidocaine 5% topical ointment See Instructions, PRN Pain , Moderate, 1 APPLICATION TOPICALLY 3 TIMES A DAY, # 50 Gm, 5 Refills, Maintenance, 11/11/21 13:27:00 EDT, [facility], 1 APPLICATION TOPICALLY 3 TIMES A DAY,PRN:Pain , Moderate, 188, cm, 11/11/21 12:46:00 EDT, [facility] Start Date: 11/11/21 Status: Ordered LORazepam 1 mg oral tablet See Instructions, PRN for anxiety, 2 tablets By Mouth 1 hours prior to MRI, # 2 tablet, 1 Refills, Maintenance, 05/25/21 10:06:00 EST, Tablet, [facility], 188, cm, 05/25/21 9:26:00 EST, Height, 125.2, kg, 06/20/20 14:28:00 EST, Dry Weight Start Date: 05/25/21 Status: Ordered losartan 100 mg oral tablet 1 tablet, By Mouth, Daily in AM, # 30 tablet, 5 Refills, [facility], 188, cm, 09/15/21 12:49:00 EDT, Height, 125.2, kg, 06/20/20 14:28:00 EST, Dry Weight Start Date: 10/04/21 Status: Ordered LUBRIC TEARS CALE 0.4-0.3% [place] INSTILL 1 DROP FOUR TIMES DAILY EACH EYE Start Date: 05/11/20 Status: Ordered meloxicam 15 mg oral tablet 1 tablet = 15 mg, By Mouth, Daily, Take with food PRN back pain Venezuelan, # 14 tablet, 0 Refills, Maintenance, 11/25/21 13:26:00 EDT, [facility], Partial fill upon patient request if the prescription is for a schedule II opioid drug., 188,... Start Date: 11/25/21 Stop Date: 12/09/21 Status: Ordered metFORMIN 750 mg oral tablet, extended release 1 tablet = 750 mg, By Mouth, Daily, [replaces the metformin 500mg bid], # 30 tablet, 11 Refills, Maintenance, 11/22/21 17:53:00 EDT, ER Tablet, [facility], Partial fill upon patient requestif the prescription is for a schedule II opioid alessandra... Start Date: 11/22/21 Status: Ordered methadone 10 mg oral tablet See Instructions, By mouth. 2 tab in AM, 1.5 midday, 2 in evening;for pain. IDC10: G90.5 CRPS. 28 day supply. [facility]., # 154 tablet, 0 Refills, Maintenance, pain, 11/08/21 7:19:00 EDT, [facility], May partial fill., 188, cm,... Start Date: 11/08/21 Status: Ordered methadone 10 mg oral tablet See Instructions, By mouth. 2 tab in AM, 1.5 midday, 2 in evening;for pain. IDC10: G90.5 CRPS. 28 day supply. [facility]., # 154 tablet, 0 Refills, Maintenance, pain, 12/06/21 7:20:00 EDT, [facility], May partial fill., 12/06/21,... Start Date: 12/06/21 Status: Ordered methadone 10 mg oral tablet See Instructions, By mouth. 2 tab in AM, 1.5 midday, 2 in evening;for pain. IDC10: G90.5 CRPS. 28 day supply. [facility]., # 154 tablet, 0 Refills, Maintenance, pain, 01/03/22 7:12:00 EDT, [facility], May partial fill., 01/03/22,... Start Date: 01/03/22 Status: Ordered Metoclopramide = 10 mg, By Mouth, 3 times a day before meals and bedtime, 0 Refills, Maintenance, 08/20/18 13:55:26 EDT Start Date: 08/20/18 Status: Ordered multivitamin Multiple Vitamins oral tablet 1 tablet, By Mouth, Daily, B complex multivitamin, # 30 tablet, 11 Refills, Maintenance, 11/22/21 17:58:00 EDT, [facility], Partial fill upon patient request if the prescription is for a schedule II opioid drug., 1 tablet By Mouth Daily,Inst... Start Date: 11/22/21 Status: Ordered Narcan 4 mg/0.1 mL nasal spray = 4 mg, Nares, Both, Once, may repeat every 2 to 3 minutes until patient responds, # 2 each, 0 Refills, Soft Stop, 05/25/21 10:17:00 EST, [facility], 188, cm, 05/25/21 9:26:00 EST, Height, 125.2, kg, 06/20/20 14:28:00 EST, Dry Weight Start Date: 05/25/21 Status: Ordered nystatin-triamcinolone topical 046243 u/gm-0.1% ointment 1 applicator, Topically, 3 times a day, to foreskin area FOR 3 DAYS then switch to other antifungal, # 15 Gm, 1 Refills, Maintenance, 05/25/21 10:20:00 EST, [facility], 1 applicator Topically 3 times a day,Instr:to foreskin area FOR 3 DAYS t... Start Date: 05/25/21 Status: Ordered olopatadine 0.1% ophthalmic solution 1 drops, Eyes, Both, 2 times a day, 0 Refills, Maintenance, 01/01/16 18:36:52 EDT Start Date: 01/01/16 Status: Ordered ondansetron 4 mg oral tablet TAKE 1 TABLET BY MOUTH EVERY 8 HOURS NEEDED FOR NAUSEA Idalia Sandoval Start Date: 08/20/18 Status: Ordered Pen [place], 31 G x 8 mm BD Ultra Fine III See Instructions, # 150 each, Refills 11, Tot. Refills 11, Maintenance, use 2- 5x/day Type 2 Diabetes Mellitus on Lantus and Humalog insulin with pen, 02/27/22 13:16:00 EST, Compound, 188, cm, 11/22/21 16:37:00 EDT, Height, 122.63, kg, 11/22/21 16:37:0... Start Date: 02/27/22 Stop Date: 02/22/23 Status: Ordered Pen [place], 31 G x 8 mm BD Ultra Fine III See Instructions, for 30 days, # 100 each, Refills 4, Tot. Refills 4, Hard Stop 02/27/22 13:16:00 EST, use daily Type 2 Diabetes Mellitus on insulin with pen, 09/30/21 13:16:00 EDT, Compound, 188, cm, 09/15/21 12:49:00 EDT, Height, 125.2, kg, 06/20/20... Start Date: 09/30/21 Stop Date: 02/27/22 Status: Ordered prazosin 1 mg oral capsule 2 mg, AT BEDTIME Start Date: 05/11/20 Status: Ordered semaglutide 1 mg/0.5 mL (1 mg dose) subcutaneous solution = 1 mg, Subcutaneous Infusion, Every 7 days, dose increase, # 1 each, 11 Refills, Maintenance, 09/15/21 14:29:00 EDT, [facility], Partial fill upon patient request if the prescription is for a schedule II opioid drug., 188, cm, 09/15/21 12:4... Start Date: 09/15/21 Status: Ordered Singulair 10 mg oral tablet 10 mg, 1, tablet, By Mouth, Daily, # 90 tablet, Refills 3, Tot. Refills 3, Maintenance, 03/30/20 21:31:00 EST, Route to Pharmacy Electronically, [facility], 185, cm, 02/25/20 10:29:00 EST, Height, 126.81, kg, 02/25/20 10:29:00 EST, Dry Weight Start Date: 03/30/20 Status: Ordered sucralfate 1 gm oral tablet TAKE 1 TABLET BY MOUTH TWICE DAILY Start Date: 05/11/20 Status: Ordered tamsulosin 0.4 mg oral capsule 0.4 mg, 1, capsule, By Mouth, Daily, Per urology, # 30 capsule, Refills 0, Maintenance, 11/11/21 13:10:00 EDT, Partial fill upon patient request if the prescription is for a schedule II opioid drug. Start Date: 11/11/21 Status: Ordered Test Strips See Instructions, # 100 each, Refills 11, Tot. Refills 11, Maintenance, Glucometer test strips. Dx Diabetes M-2 on insulin (ICD-10: E11, Z79. 4). 3x per day, 08/15/21 14:12:00 EDT, Compound, 188, cm,07/27/21 8:34:00 EDT, Height, 125.2, kg, 06/20/20... Start Date: 08/15/21 Status: Ordered testosterone enanthate 200 mg/mL intramuscular solution 0.75 mL, Intramuscular, Every 14 days, IM or subcutaneous. [facility]., # 5 mL, 5 Refills, Maintenance, 11/22/21 17:58:00 EDT, [facility], 188, cm, 11/22/21 16:37:00 EDT, Height, 122.63, kg, 11/22/21 16:37:00 EDT, Dry Weight Start Date: 11/22/21 Status: Ordered tiZANidine 4 mg oral tablet 4 mg, 1, tablet, By Mouth, 3 times a day, PRN, # 90 tablet, Refills 11, Tot. Refills 11, Maintenance, as needed for muscle spasm, 08/12/21 11:09:00 EDT, Route to Pharmacy Electronically, [facility], 188, cm, 07/27/21 8:34:00 EDT, Height, 125... Start Date: 08/12/21 Status: Ordered traZODone 100 mg oral tablet TAKE ONE TO TWO TABLETS BY MOUTH AT BEDTIME NEEDED Damaris Morales Start Date: 05/11/20 Status: Ordered Tylenol Extra Strength 500 mg oral tablet 2 tablet = 1,000 mg, By Mouth, 3 times a day, # 30 tablet, 11 Refills, Maintenance, 03/24/21 21:00:00 EST, [facility], 188, cm, 03/22/21 14:17:00 EST, Height, 125.2, kg, 06/20/20 14:28:00 EST, Dry Weight Start Date: 03/24/21 Status: Ordered Vitamin D3 1000 intl units oral tablet 1 tablet, By Mouth, Daily, for 30 days, # 30 tablet, 11 Refills, Physician Stop 10/30/22 17:07:00 EDT, 11/04/21 17:07:00 EDT, [facility], 188, cm, 09/15/21 12:49:00 EDT, Height, 125.2, kg, 06/20/20 14:28:00 EST, Dry Weight Start Date: 11/04/21 Stop Date: 10/30/22 Status: Ordered Problem List Condition Effective Dates Status Health Status Inform ant Alcohol abuse - per MH josé 2015(Confirmed) Active Allergic rhinitis(Confirmed) Active Anxiety disorder(Confirmed) [...] elbow(Confirmed) 2010 Active Chronic back pain(Confirmed) Active Obese class I(Confirmed) Active DHARA (obstructive sleep apnea)(Confirmed) 03/18/04 Active Plantar fasciitis(Confirmed) Active Shoulder impingement syndrom 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 3R Foot- ? chr regional pain syndrome 4s/p Modified [place] procedure, repair of conjoined tendon of extensor carpi radialis longus and brevis and of partial tear of the lateral collateral ligament 12/29/10- Dr Calin Melgar. 5Arthroscopic subacromial decompression with debridement of undersurface partial cuff tear, & distal clavicle excision AC joint arthritis 2008 Social History Social History Type Response Smoking Status Never (less than 100 in lifetime); Exposure to Secondhand Smoke: No entered on: 11/11/21 Sex Male
--- OUTSIDE RECORDS SUMMARY | 2023-10-11 08:09 | XMS_ITS | Continuity of Care Document ---
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 Did take a penicillin for treatment of H pylori per pt w/o problem. Immunizations Given and Recorded Vaccine Date Status Refusal Reason SARS-CoV-2 (COVID-19) mRNA BNT-162b2 vac 02/23/21 Given [...] Elissa Bertrand 12Result Comment: [11/27/2017] REceived at [facility] at [place], [place]; ordered by Dr Michael Oliveira 13Location [...] tablet, 5 Refills, Maintenance, 11/18/20 15:30:00 EDT, [facility], 188, cm, 09/22/20 8:33:00 EDT, Height, 125.2, kg, 06/20/20 14:28:00 EST, Dry Weight Start Date: 11/18/20 Status: Ordered AutoCPAP 9-18 with heated humidification AutoCPAP 9-18 with heated humidification, See Instructions, # 1 each, Refills 0, Tot. Refills 0, Maintenance, use overnight and naps from [facility], 11/04/18 12:28:22 EDT, Compound Start Date: [...] capsule, 3 Refills, Maintenance, 03/30/20 21:36:00 EST, [facility], 185, cm, 02/25/20 10:29:00 EST, Height, 126.81, kg, 02/25/20 10:29:00 EST, Dry Weight Start Date: 03/30/20 Status: Ordered clotrimazole 1% topical cream 1 application, Topically, 2 times a day, apply to penile rash, # 30 Gm, 2 Refills, Maintenance, 01/07/20 14:49:00 EDT, Cream, [facility], 1 application Topically 2 times a day,Instr:apply to penile rash, 185, cm, 01/07/20 13:55:00 EDT, [facility]... Start Date: 01/07/20 Status: Ordered Cozaar 100 mg oral tablet 1 tablet = 100 mg, By Mouth, Daily in AM, # 30 tablet, 11 Refills, Maintenance, 09/22/20 9:41:00 EDT, Tablet, [facility], duplicate rx. original sent 09/16/19. remaining [...] 06/25/20 15:39:00 EST, Route to Pharmacy Electronically, [facility], Partial f... Start Date: 06/25/20 Status: Ordered diclofenac 1% topical gel = 2 Gm, Topically, 4 times a day, PRN for pain, (niuean) not to exceed: 16 gm/day/joint lower limb8 gm/day/joint of upper limb 32 gm/day may interchange for cream, # 100 Gm, 5 Refills, Maintenance,07/08/20 15:35:00 EDT, Gel, [facility] Start Date: 07/08/20 Status: Ordered docusate [...] 11 Refills, Maintenance, 02/15/20 21:05:00 EST, Solution, [facility], 185, cm, 01/07/20 13:55:00 EDT, Height, [...] mL, 11 Refills, Maintenance, 01/14/21 18:16:00 EDT, [facility], 188, cm, 12/22/20 9:45:00 EDT, Height, 125.2, kg, 06/20/20 14:28:00EST, Dry Weight Start Date: 01/14/21 Status: Ordered latanoprost 0.005% ophthalmic solution 0 Refills, Maintenance, 05/11/20 16:57:00 EST Start Date: 05/11/20 Status: Ordered lidocaine 5% topical ointment See Instructions, 1 APPLICATION TOPICALLY 3 TIMES A DAY, # 70.88 Gm, 4 Refills, Acute, [facility], 14, 1 APPLICATION TOPICALLY 3 TIMES A DAY, 188, cm, 09/22/20 8:33:00 EDT, Height, 125.2, kg, 06/20/20 14:28:00 EST, Dry Weight Start Date: 11/08/20 Status: Ordered Lipitor 40 mg oral tablet 1 tablet = 40 mg, By Mouth, Daily, # 90 tablet, 3 Refills, Maintenance, 03/30/20 21:30:00 EST, [facility], duplicate rx. original sent 11/04/19. remaining refill sent., 185, cm, 02/25/20 10:29:00 EST, Height, 126.81, kg, 02/25/20 10:29:00 EST... Start Date: 03/30/20 Status: Ordered LORazepam 1 mg oral tablet See Instructions, PRN for anxiety, 2 tablets By Mouth 1 hours prior to MRI, # 2 tablet, 0 Refills, Acute 04/15/21 10:58:00 EST, 02/23/21 9:45:00 EST, Tablet, [facility], 188, cm, 02/23/21 9:53:00 EST, Height, 125.2, kg, 06/20/20 14:28:00 EST... Start Date: 02/23/21 Stop Date: 04/15/21 Status: Ordered LORazepam 1 mg oral tablet See Instructions, PRN for anxiety, 2 tablets By Mouth 1 hours prior to MRI, # 2 tablet, 0 Refills, Acute 09/22/21 9:45:00 EDT, 09/22/20 9:43:00 EDT, Tablet, [facility], Partial fill upon [...] pain. IDC10: G90.5 CRPS. 28 day supply. [facility]., # 154 tablet, 0 Refills, Maintenance, pain, 02/01/21 10:39:00 EDT,[facility], May partial fill., 02/01/21... Start Date: 02/01/21 Status: Ordered methadone 10 mg oral tablet See Instructions, By mouth. 2 tab in AM, 1.5 midday, 2 in evening;for pain. IDC10: G90.5 CRPS. 28 day supply. [facility]., # 154 tablet, 0 Refills, Maintenance, pain, 03/01/21 6:30:00 EST, [facility], May partial fill., 188, cm,... Start Date: 03/01/21 Status: Ordered Metoclopramide = 10 mg, By Mouth, 3 times a day before meals and bedtime, 0 Refills, Maintenance, 08/20/18 13:55:26 EDT Start Date: 08/20/18 Status: Ordered multivitamin Multiple Vitamins oral tablet 1 tablet, By Mouth, Daily, B complex multivitamin, # 30 tablet, 11 Refills, Maintenance, 12/22/20 10:52:00 EDT, [facility], Partial fill upon patient request if the prescription is for a schedule II opioid drug., 1 tablet By Mouth Daily,Inst... Start Date: 12/22/20 Status: Ordered Narcan 4 mg/0.1 mL nasal spray = 4 mg, Nares, Both, Once, may repeat every 2 to 3 minutes until patient responds, # 2 each, 0 Refills, Soft Stop, 05/15/18 9:41:53 EST Start Date: 05/15/18 Status: Ordered nystatin-triamcinolone topical 570731 u/gm-0.1% ointment 1 applicator, Topically, 3 times a day, to foreskin area FOR 3 DAYS then switch to other antifungal, # 15 Gm, 1 Refills, Maintenance, 07/08/20 15:34:00 EDT, [facility], 1 applicator Topically 3 times a [...] EDT Start Date: 08/20/18 Status: Ordered Pen [place], 31 G x 8 mm BD Ultra [...] 03/30/20 21:31:00 EST, Route to Pharmacy Electronically, [facility], 185, cm, 02/25/20 10:29:00 EST, Height, [...] solution 0.75 mL, Intramuscular, Every 14 days, [facility], # 5 mL, 5 Refills, Maintenance, 08/29/20 21:33:00 EDT, [facility], 188, cm, 07/08/20 13:42:00 EDT, Height, 125.2, kg, 06/20/20 14:28:00 EST, Dry Weight Start Date: 08/29/20 Status: Ordered tiZANidine 4 mg oral tablet 4 mg, 1, tablet, By Mouth, 3 times a day, PRN, # 90 tablet, Refills 11, Tot. Refills 11, Maintenance, as needed for muscle spasm, 07/08/20 15:40:00 EDT, Route to Pharmacy Electronically, [facility], 188, cm, 07/08/20 13:42:00 EDT, Height, 12... Start Date: 07/08/20 Status: Ordered traZODone 100 mg oral tablet TAKE ONE TO TWO TABLETS BY MOUTH AT BEDTIME NEEDED S. McAnulty Start Date: 05/11/20 Status: Ordered Tylenol Extra Strength 500 mg oral tablet 2 tablet = 1,000 mg, By Mouth, 3 times a day, # 30 tablet, 0 Refills, Maintenance, 02/24/21 16:47:00 EST, [facility], Partial fill upon patient request if the prescription is for a scheduleII opioid drug., 188, cm, 02/24/21 16:26:00 EST, He... Start Date: 02/24/21 Status: Ordered Problem List Condition Effective Dates Status Health Status Inform ant Alcohol abuse - per MH evaln 2015(Confirmed) Active Allergic rhinitis(Confirmed) Active Anxiety disorder(Confirmed) [...]
--- OUTSIDE RECORDS SUMMARY | 2023-10-11 08:09 | XMS_ITS | Continuity of Care Document ---
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 Start Date: 03/25/21 Status: Ordered 3 mL syringe with 0.5-1.5 18G-21G needle 3 mL syringe with 0.5-1.5 18G-21G needle, See Instructions, # 4 each, Refills 1, Tot. Refills 1, Maintenance, for testosterone, withdrawing from vial., 03/25/21 0:36:00 EST, 18G preferred if available, Supply, 188, cm, 03/22/21 14:17:00 EST, Height,... Start Date: 03/25/21 Status: Ordered albuterol CFC free 90 mcg/inh [...] tablet, 5 Refills, Maintenance, 11/18/20 15:30:00 EDT, [facility], 188, cm, 09/22/20 8:33:00 EDT, Height, 125.2, kg, 06/20/20 14:28:00 EST, Dry Weight Start Date: 11/18/20 Status: Ordered AutoCPAP 9-18 with heated humidification AutoCPAP 9-18 with heated humidification, See Instructions, # 1 each, Refills 0, Tot. Refills 0, Maintenance, use overnight and naps from [facility], 11/04/18 12:28:22 EDT, Compound Start Date: [...] capsule, 3 Refills, Maintenance, 03/30/20 21:36:00 EST, [facility], 185, cm, 02/25/20 10:29:00 EST, Height, 126.81, kg, 02/25/20 10:29:00 EST, Dry Weight Start Date: 03/30/20 Status: Ordered clotrimazole 1% topical cream 1 application, Topically, 2 times a day, apply to penile rash, # 30 Gm, 2 Refills, Maintenance, 01/07/20 14:49:00 EDT, Cream, [facility], 1 application Topically 2 times a day,Instr:apply to penile rash, 185, cm, 01/07/20 13:55:00 EDT, Francheska... Start Date: 01/07/20 Status: Ordered Cozaar 100 mg oral tablet 1 tablet = 100 mg, By Mouth, Daily in AM, # 30 tablet, 11 Refills, Maintenance, 09/22/20 9:41:00 EDT, Tablet, [facility], duplicate rx. original sent 09/16/19. remaining [...] 06/25/20 15:39:00 EST, Route to Pharmacy Electronically, [facility], Partial f... Start Date: 06/25/20 Status: Ordered diclofenac 1% topical gel = 2 Gm, Topically, 4 times a day, PRN for pain, (swedish) not to exceed: 16 gm/day/joint lower limb8 gm/day/joint of upper limb 32 gm/day may interchange for cream, # 100 Gm, 5 Refills, Maintenance,07/08/20 15:35:00 EDT, Gel, [facility] Start Date: 07/08/20 Status: Ordered docusate sodium/sennosides 50/8.6mg docusate sodium/sennosides 50/8.6mg, 1-3 tablet, By Mouth, 2 times a day, PRN Constipation, # 100 tablet, Refills 11, Tot. Refills 11, Maintenance, 08/22/17 20:25:34 EDT, Compound Start Date: 08/22/17 Status: Ordered dulaglutide 1.5 mg/0.5 mL subcutaneous solution 0.5 mL = 1.5 mg, Subcutaneous Injection, Every week, # 2.5 mL, 11 Refills, Maintenance, 03/03/21 21:23:00 EST, Solution, [facility], 188, cm, 02/24/21 16:26:00 EST, Height, 125.2, kg, 06/20/20 14:28:00 EST, Dry Weight Start Date: 03/03/21 Status: Ordered duloxetine 60 mg oral enteric [...] mL, 11 Refills, Maintenance, 01/14/21 18:16:00 EDT, [facility], 188, cm, 12/22/20 9:45:00 EDT, Height, 125.2, kg, 06/20/20 14:28:00EST, Dry Weight Start Date: 01/14/21 Status: Ordered latanoprost 0.005% ophthalmic solution 0 Refills, Maintenance, 05/11/20 16:57:00 EST Start Date: 05/11/20 Status: Ordered lidocaine 5% topical ointment See Instructions, 1 APPLICATION TOPICALLY 3 TIMES A DAY, # 70.88 Gm, 4 Refills, Acute, [facility], 14, 1 APPLICATION TOPICALLY 3 TIMES A DAY, 188, cm, 09/22/20 8:33:00 EDT, Height, 125.2, kg, 06/20/20 14:28:00 EST, Dry Weight Start Date: 11/08/20 Status: Ordered Lipitor 40 mg oral tablet 1 tablet = 40 mg, By Mouth, Daily, # 90 tablet, 3 Refills, Maintenance, 03/30/20 21:30:00 EST, [facility], duplicate rx. original sent 11/04/19. remaining refill sent., 185, cm, 02/25/20 10:29:00 EST, Height, 126.81, kg, 02/25/20 10:29:00 EST... Start Date: 03/30/20 Status: Ordered LORazepam 1 mg oral tablet See Instructions, PRN for anxiety, 2 tablets By Mouth 1 hours prior to MRI, # 2 tablet, 0 Refills, Acute 04/15/21 10:58:00 EST, 02/23/21 9:45:00 EST, Tablet, [facility], 188, cm, 02/23/21 9:53:00 EST, Height, 125.2, kg, 06/20/20 14:28:00 EST... Start Date: 02/23/21 Stop Date: 04/15/21 Status: Ordered LORazepam 1 mg oral tablet See Instructions, PRN for anxiety, 2 tablets By Mouth 1 hours prior to MRI, # 2 tablet, 0 Refills, Acute 09/22/21 9:45:00 EDT, 09/22/20 9:43:00 EDT, Tablet, [facility], Partial fill upon patient request if the prescription is for a schedule... Start Date: 09/22/20 Stop Date: 09/22/21 Status: Ordered LORazepam 1 mg oral tablet See Instructions, PRN for anxiety, 2 tablets By Mouth 1 hours prior to MRI, # 2 tablet, 0 Refills, Maintenance, 04/15/21 10:58:00 EST, Tablet, [facility], 188, cm, 03/22/21 14:17:00 EST, Height, 125.2, kg, 06/20/20 14:28:00 EST, Dry Weight Start Date: 04/15/21 Status: Ordered LUBRIC TEARS CALE 0.4-0.3% [place] INSTILL 1 DROP FOUR TIMES DAILY EACH EYE Start Date: 05/11/20 Status: Ordered metFORMIN 500 mg oral tablet 1 tablet = 500 mg, By Mouth, 2 times a day, with meals. Replaces metformin ER, # 180 tablet, 3 Refills, Maintenance, 07/08/20 15:40:00 EDT, Tablet, [facility], Duplicate rx-Original rx sent06/22/20. Resent., 188, cm, 07/08/20 13:42:00 EDT, He... Start Date: 07/08/20 Status: Ordered methadone 10 mg oral tablet See Instructions, By mouth. 2 tab in AM, 1.5 midday, 2 in evening;for pain. IDC10: G90.5 CRPS. 28 day supply. [facility]., # 154 tablet, 0 Refills, Maintenance, pain, 03/29/21 21:05:00 EST,[facility], May partial fill., 03/29/21... Start Date: 03/29/21 Status: Ordered methadone 10 mg oral tablet See Instructions, By mouth. 2 tab in AM, 1.5 midday, 2 in evening;for pain. IDC10: G90.5 CRPS. 28 day supply. [facility]., # 154 tablet, 0 Refills, Maintenance, pain, 04/26/21 0:34:00 EST, [facility], May partial fill., 04/26/21,... Start Date: 04/26/21 Status: Ordered Metoclopramide = 10 mg, By Mouth, 3 times a day before meals and bedtime, 0 Refills, Maintenance, 08/20/18 13:55:26 EDT Start Date: 08/20/18 Status: Ordered multivitamin Multiple Vitamins oral tablet 1 tablet, By Mouth, Daily, B complex multivitamin, # 30 tablet, 11 Refills, Maintenance, 12/22/20 10:52:00 EDT, [facility], Partial fill upon patient request if [...] Start Date: 05/15/18 Status: Ordered nystatin-triamcinolone topical 364415 u/gm-0.1% ointment 1 applicator, Topically, 3 times a day, to foreskin area FOR 3 DAYS then switch to other antifungal, # 15 Gm, 1 Refills, Maintenance, 07/08/20 15:34:00 EDT, [facility], 1 applicator Topically 3 times a [...] EDT Start Date: 08/20/18 Status: Ordered Pen [place], 31 G x 8 mm BD Ultra [...] 03/30/20 21:31:00 EST, Route to Pharmacy Electronically, [facility], 185, cm, 02/25/20 10:29:00 EST, Height, [...] solution 0.75 mL, Intramuscular, Every 14 days, [facility], # 5 mL, 5 Refills, Maintenance, 03/25/21 1:06:00 EST, [facility], 188, cm, 03/22/21 14:17:00 EST, Height, 125.2, kg, 06/20/20 14:28:00 EST, Dry Weight Start Date: 03/25/21 Status: Ordered tiZANidine 4 mg oral tablet 4 mg, 1, tablet, By Mouth, 3 times a day, PRN, # 90 tablet, Refills 11, Tot. Refills 11, Maintenance, as needed for muscle spasm, 07/08/20 15:40:00 EDT, Route to Pharmacy Electronically, [facility], 188, cm, 07/08/20 13:42:00 EDT, Height, 12... Start Date: 07/08/20 Status: Ordered traZODone 100 mg oral tablet TAKE ONE TO TWO TABLETS BY MOUTH AT BEDTIME NEEDED SZayra Morales Start Date: 05/11/20 Status: Ordered Tylenol Extra Strength 500 mg oral tablet 2 tablet = 1,000 mg, By Mouth, 3 times a day, # 30 tablet, 11 Refills, Maintenance, 03/24/21 21:00:00 EST, [facility], 188, cm, 03/22/21 14:17:00 EST, Height, 125.2, kg, 06/20/20 14:28:00 EST, Dry Weight Start Date: 03/24/21 Status: Ordered Problem List Condition Effective Dates Status Health Status Inform ant Alcohol abuse - per evalmargot 2015(Confirmed) Active Allergic rhinitis(Confirmed) Active Anxiety disorder(Confirmed) [...]
--- OUTSIDE RECORDS SUMMARY | 2023-10-11 08:09 | XMS_ITS | Continuity of Care Document ---
Author Organization [facility] Address [address] [place] [address]- Care Team Providers Care Post Acute Care Registered Nurse Name Role Phone Vamshi Man MD Primary Care Physician Encounter [facility] Date(s): 05/24/20 - 06/23/20 [facility]/[address] [address]- Allergies, Adverse Reactions, Alerts Substance Reaction Severity [...] Elissa Bertrand 12Result Comment: [11/27/2017] REceived at [facility] [place], [place]; ordered by Dr Michael Oliveira 13Location [...] testing up to 7x/wk total. Dx: E11, 06/15/20 9:12:00 EST, Compound, 185, cm, 02/25/20 10:29:00 EST, Height, 126.81, kg, 02/25/20 10:29:00 EST, Dry Weight Start Date: 06/15/20 Status: Ordered ALPRAZolam 2 mg oral tablet [...] 03/30/20 21:31:00 EST, Route to Pharmacy Electronically, [facility], dupilcate rx. original sent 11/04/19. remaining refills sent., 185, cm, 02/25/20 10:29:00 EST, Hei... Start Date: 03/30/20 Status: Ordered AutoCPAP 9-18 with heated humidification AutoCPAP 9-18 with heated humidification, See Instructions, # 1 each, Refills 0, Tot. Refills 0, Maintenance, [facility], 11/04/18 12:28:22 EDT, Compound Start Date: [...] capsule, 3 Refills, Maintenance, 03/30/20 21:36:00 EST, [facility], 185, cm, 02/25/20 10:29:00 EST, Height, 126.81, kg, 02/25/20 10:29:00 EST, Dry Weight Start Date: 03/30/20 Status: Ordered clotrimazole 1% topical cream 1 application, Topically, 2 times a day, apply to penile rash, # 30 Gm, 2 Refills, Maintenance, 01/07/20 14:49:00 EDT, Cream, [facility], 1 application Topically 2 times a day,Instr:apply to penile rash, 185, cm, 01/07/20 13:55:00 EDT, Francheska... Start Date: 01/07/20 Status: Ordered Cozaar 100 mg oral tablet 1 tablet = 100 mg, By Mouth, Daily in AM, # 30 tablet, 5 Refills, Maintenance, 03/15/20 17:08:00 EST, Tablet, [facility], duplicate rx. original sent 09/16/19. remaining refills sent., 185, cm, 02/25/20 10:29:00 EST, Height, 126.81, kg, ... Start Date: 03/15/20 Status: Ordered cyclobenzaprine 5 mg oral tablet 1 tablet = 5 mg, By Mouth, 3 times a day, for 7 days, DO NOT DRIVE OR OPERATE MACHINERY ON THIS MEDICATION, # 21 tablet, 0 Refills, Acute 06/27/20 14:15:00 EDT, 06/20/20 14:15:00 EST, Tablet, [facility]/pharmacy #[id number], Partial fill upon patient request if th... Start Date: 06/20/20 Stop Date: 06/27/20 Status: Ordered diclofenac 1% topical gel = 2 Gm, Topically, 4 times a day, PRN for pain, (uzbek) not to exceed: 16 gm/day/joint lower limb8 gm/day/joint of upper limb 32 gm/day, # 100 Gm, 1 Refills, Maintenance, 10/27/19 10:15:00 EDT, Gel, [facility], 185, cm, 06/24/19 13:00:... Start Date: [...] 11 Refills, Maintenance, 02/15/20 21:05:00 EST, Solution, [facility], 185, cm, 01/07/20 13:55:00 EDT, Height, [...] EDT, Compound Start Date: 12/22/19 Status: Ordered ibuprofen 400 mg oral tablet 400 mg, 1, tablet, By Mouth, Every 6 hours, PRN, for 7 days, # 50 tablet, Refills 0, Tot. Refills 0, Acute 06/27/20 14:15:00 EDT, for pain, 06/20/20 14:15:00 EST, [id number] fill upon patient request... Start Date: 06/20/20 Stop Date: 06/27/20 Status: Ordered ketotifen 0.025% ophthalmic solution INSTILL 1 DROP INTO AFFECTED EYE TWICE A DAY Dr Poe Start Date: 05/11/20 Status: Ordered Lantus Solostar Pen 100 units/mL subcutaneous solution = 90 units, Subcutaneous Infusion, Daily at bedtime, # 30 mL, 3 Refills, Maintenance, 06/23/20 23:04:00 EST, [facility], Duplicate rx-Original rx sent 06/22/20. Resent., 188, cm, 06/20/20 14:28:00 EST, Height, 125.2, kg, 06/20/20 14:28:00 EST,... Start Date: 06/23/20 Status: Ordered latanoprost 0.005% ophthalmic solution 0 Refills, Maintenance, 05/11/20 16:57:00 EST Start Date: 05/11/20 Status: Ordered lidocaine 4% topical cream 1 application, Topically, 3 times a day, may interchange 3-5% cream or ointment or 2% gel per insurance coverage., # 60 Gm, 5 Refills, Maintenance, 10/28/19 20:11:00 EDT, [facility], 1 application Topically 3 times a day,Instr:may interchang... Start Date: 10/28/19 Status: Ordered lidocaine 4% topical film 1 patch, Topically, 2 times a day, for 5 days, # 10 patch, 0 Refills, Acute 06/25/20 14:16:00 EST, 06/20/20 14:16:00 EST, Film, [id number] Partial fill upon patient request if the prescription is for a schedule II opioid drug., 1 patch Topica... Start Date: 06/20/20 Stop Date: 06/25/20 Status: Ordered Lipitor 40 mg oral tablet 1 tablet = 40 mg, By Mouth, Daily, # 90 tablet, 3 Refills, Maintenance, 03/30/20 21:30:00 EST, [facility], duplicate rx. original sent 11/04/19. remaining [...] ER, # 180 tablet, 3 Refills, Maintenance, 06/23/20 23:04:00 EST, Tablet, [facility], Duplicate rx-Original rx sent06/22/20. Resent., 188, cm, 06/20/20 14:28:00 EST, He... Start Date: 06/23/20 Status: Ordered methadone 10 mg oral tablet See Instructions, By mouth. 2 tab in AM, 1.5 midday, 2 in evening;for pain. IDC10: G90.5 CRPS. 28 day supply. [facility]., # 154 tablet, 0 Refills, Maintenance, pain, 06/21/20 17:50:00 EST,[facility], August partial fill., 185, cm,... Start Date: 06/21/20 Status: Ordered methadone 10 mg oral tablet See Instructions, By mouth. 2 tab in AM, 1.5 midday, 2 in evening;for pain. IDC10: G90.5 CRPS. 28 day supply. [facility]., # 154 tablet, 0 Refills, Maintenance, pain, 05/24/20 16:29:00 EST,[facility], August partial fill., 05/24/20... Start Date: 05/24/20 Status: [...] Start Date: 05/15/18 Status: Ordered nystatin-triamcinolone topical 880170 u/gm-0.1% ointment 1 applicator, Topically, 3 times a day, to foreskin area FOR 3 DAYS then switch to other antifungal, # 15 Gm, 1 Refills, Maintenance, 01/07/20 14:48:00 EDT, [facility], 1 applicator Topically 3 times a [...] EDT Start Date: 08/20/18 Status: Ordered Pen [place], 31 G x 8 mm BD Ultra [...] AT BEDTIME Start Date: 05/11/20 Status: Ordered predniSONE 20 mg oral tablet 2 tablet = 40 mg, By Mouth, Daily, for 4 days, # 8 tablet, 0 Refills, Acute 06/24/20 14:15:00 EST, 06/20/20 14:15:00 EST, Tablet, [facility]/pharmacy #[id number], Partial fill upon patient request if the prescription is for a schedule II opioid drug., 188, cm, ... Start Date: 06/20/20 Stop Date: 06/24/20 Status: Ordered Singulair 10 mg oral tablet 10 mg, 1, tablet, By Mouth, Daily, # 90 tablet, Refills 3, Tot. Refills 3, Maintenance, 03/30/20 21:31:00 EST, Route to Pharmacy Electronically, [facility], 185, cm, 02/25/20 10:29:00 EST, Height, [...] solution 0.75 mL, Intramuscular, Every 14 days, [facility], # 5 mL, 5 Refills, Maintenance, 01/11/20 21:30:00 EDT, [facility], 185, cm, 01/07/20 13:55:00 EDT, Height, 127.72, kg, 05/06/19 13:41:00 EST, Dry Weight Start Date: 01/11/20 Status: Ordered tiZANidine 4 mg oral tablet 4 mg, 1, tablet, By Mouth, 3 times a day, PRN, # 90 tablet, Refills 11, Tot. Refills 11, Maintenance, as needed for muscle spasm, 05/11/20 18:47:00 EST, Route to Pharmacy Electronically, [facility], 185, cm, 02/25/20 10:29:00 EST, Height, 12... Start Date: 05/11/20 Status: Ordered traZODone 100 mg oral tablet TAKE ONE TO TWO TABLETS BY MOUTH AT BEDTIME NEEDED S. McAnulty Start Date: 05/11/20 Status: Ordered Tylenol Extra Strength 500 mg oral tablet 2 tablet = 1,000 mg, By Mouth, 3 times a day, PRN as needed for pain, for 7 days, # 50 tablet, 0 Refills, Acute 06/27/20 14:15:00 EDT, 06/20/20 14:15:00 EST, Tablet, [facility]/pharmacy #[id number], Partial fill upon patient request if the prescription is for a sc... Start Date: 06/20/20 Stop Date: 06/27/20 Status: Ordered Problem List Condition Effective Dates Status Health Status Inform ant Alcohol abuse - per josé 2016(Confirmed) Active Allergic rhinitis(Confirmed) Active Anxiety disorder(Confirmed) [...] ? chr regional pain syndrome 4s/p Modified [place] procedure, repair of conjoined tendon of extensor [...]
--- OUTSIDE RECORDS SUMMARY | 2023-10-11 08:09 | XMS_ITS | Continuity of Care Document ---
Author Organization [facility] Address [address] [place] [address]- Care Team Providers Care Old Testament Professor Name Role Phone Vamshi Man MD Primary Care Physician [phone] Encounter [facility] Date(s): 08/27/19 - 09/03/19 [facility]/[address] [address]- [facility] Attending Physician: Vamshi Man MD Allergies, Adverse Reactions, [...] Elissa Bertrand 11Result Comment: [11/27/2017] REceived at [facility] [place], [place]; ordered by Dr Michael Oliveira 12Location [...] 10/30/18 7:28:48 EDT, Route to Pharmacy Electronically, [id number], [facility] Start Date: 10/30/18 Status: Ordered AutoCPAP [...] 1 Refills, Maintenance, 06/24/19 15:23:00 EDT, Cream, [facility], 1 application Topically 2 times a day,Instr:apply [...] 4 times a day, PRN for pain, (chinese) not to exceed: 16 gm/day/joint lower limb8 gm/day/joint of upper limb 32 gm/day, # 100 Gm, 1 Refills, Maintenance, 05/29/19 13:35:00 EST, Gel, [facility], 185, cm, 05/06/19 13:41:... Start Date: 05/29/19 Status: Ordered docusate sodium/sennosides 50/8.6mg docusate sodium/sennosides [...] Dry Weight Start Date: 08/09/19 Status: Ordered Jardiance 10 mg oral tablet 1 tablet, By Mouth, Daily in AM, # 30 tablet, 1 Refills, Maintenance, 04/15/19 5:02:00 EST, [facility], 185, cm, 02/12/19 9:28:00 EDT, Height, 123.7, [...] Eyes, Both, Daily at bedtime, cover gap- Room Service Bellhop Dr Broussard, # 2.5 mL, 1 Refills, Maintenance, 02/25/14 10:47:09, Ophth Solution, 1 drops Eyes, Both Daily at bedtime,Instr:cover gap-Room Service [facility] Dr Broussard Start Date: 02/25/14 Status: Ordered lidocaine 4% topical cream 1 application, Topically, 3 times a day, may interchange 3-5% cream or ointment or 2% gel per insurance coverage., # 60 Gm, 5 Refills, Maintenance, 06/03/19 14:41:00 EST, [facility], 1 application Topically 3 times a day,Instr:august interchang... Start Date: 06/03/19 Status: Ordered Linzess 145 mcg oral capsule TAKE 1 CAPSULE BY MOUTH 30 MINUTES BEFORE MEAL (constipation) Start Date: 03/31/17 Status: Ordered Lipitor 40 mg oral tablet 1 tablet = 40 mg, By Mouth, Daily, # 30 tablet, 5 Refills, Maintenance, 05/15/19 11:16:00 EST, [facility], 185, cm, 05/06/19 13:41:00 EST, Height, 127.72, kg, 05/06/19 13:41:00 EST, Dry Weight Start Date: 05/15/19 Status: Ordered metFORMIN 500 mg oral tablet 1 tablet = 500 mg, By Mouth, 2 times a day, with meals. Replaces metformin ER, # 60 tablet, 11 Refills, Maintenance, 06/24/19 15:02:00 EDT, Tablet, [facility], 185, cm, 06/24/19 13:00:00 EDT, Height, 127.72, [...] pain. IDC10: G90.5 CRPS. 28 day supply. [facility]., # 154 tablet, 0 Refills, Maintenance, pain, 08/19/19 0:36:00 EDT, [facility], August partial fill., 185, cm,... Start Date: 08/19/19 Status: Ordered Metoclopramide = 10 mg, By [...] Start Date: 05/15/18 Status: Ordered nystatin topical 960204 u/gm cream 1 application, Topically, 2 times a day, for fungal rash, # 30 Gm, 0 Refills, Maintenance, 12/27/1710:41:38, Cream, 1 application Topically 2 times a day,x14 days,Instr:for fungal rash Start Date: 12/27/16 Stop Date: 01/10/17 Status: Ordered nystatin-triamcinolone topical 300796 u/gm-0.1% ointment 1 applicator, Topically, 3 times [...] EDT Start Date: 08/20/18 Status: Ordered Pen [place], 31 G x 8 mm BD Ultra [...] 11/29/18 11:27:43 EDT, Route to Pharmacy Electronically, [id number], [facility] Start Date: 11/29/18 Status: Ordered Testosterone Cypionate = 0.75 mg, Intramuscular, Every 14 days, Adm. today to Lot [id number] exp: 02/2020, 0 Refills, Maintenance, 11/14/18 14:06:08 EDT Start Date: 11/14/18 Status: Ordered testosterone enanthate 200 mg/mL intramuscular solution 0.75 mL, Intramuscular, Every 14 days, [facility], # 5 mL, 5 Refills, Maintenance, 05/06/19 15:06:00 EST, [facility], 185, cm, 05/06/19 13:41:00 EST, Height, 127.72, kg, 05/06/19 13:41:00 EST, Dry Weight Start Date: 05/06/19 Status: Ordered tiZANidine 4 mg oral tablet 4 mg, 1, tablet, By Mouth, 3 times a day, PRN, # 90 tablet, Refills 11, Tot. Refills 11, Maintenance, as needed for muscle spasm, 02/04/19 21:34:51 EDT, Route to Pharmacy Electronically, NCPDP_[id number], [facility] Start Date: 02/04/19 Status: Ordered Problem [...]
--- OUTSIDE RECORDS SUMMARY | 2023-10-11 08:09 | XMS_ITS | Continuity of Care Document ---
Author Organization [facility] Address [address] [place] [address]- Care Team Providers Care Agricultural Produce Packer Name Role Phone Vamshi Man MD Primary Care Physician [phone] [facility]counter [facility] Date(s): 05/28/23 - 06/27/23 [facility]/[place] [address]- [place] Allergies, Adverse Reactions, Alerts Substance Reaction Severity Status penicillins Active Other Food Allergy fresh peaches - itch y mouth, throat and lips swell Active penicillin 1 rash Resolved Latex RASH Active 1rash per mother as child. Did take a penicillin for treatment of H pylori per pt w/o problem. Immunizations Given and Recorded Vaccine Date Status Refusal Reason SARS-CoV-2(COVID-19)mRNA-LNP vac([id number]) 01/30/23 Given influenza virus vaccine, inactivated 01/05/23 Raivndra rded influenza virus vaccine, inactivated 01/20/20 Give [...] influenza virus vaccine, inactivated 03/19/06 Give n [id number] 12y+ bivalent booster vax 02/16/22 Given pneumococcal 20-valent conjugate vaccine 02/16/22 Given Influenza Virus Vaccine (oldterm) 9 01/27/22 Recor ded Influenza Virus Vaccine (oldterm) 01/26/21 Recorde d SARS-CoV-2 mRNA ([id number]) vax 11/11/21 Given SARS-CoV-2 (COVID-19) mRNA BNT-162b2 [...] Elissa Bertrand 13Result Comment: [11/27/2017] REceived at [facility] at [place], [place]; ordered by Dr Michael Oliveira 14Location [...] 11 Refills, Maintenance, 02/08/23 10:21:00 EDT, Powder, [facility], replaces Flovent due to insurance coverage, 188, cm, 01/30/23 13:26:00 EDT, Height, 126, kg, 01/30/23 13:26:00 EDT,... Start Date: 02/08/23 Status: Ordered Aspirin Low Dose 81 mg oral delayed release tablet 1 tablet, By Mouth, Daily, # 90 tablet, 4 Refills, Maintenance, 03/01/23 17:49:00 EST, [facility], 188, cm, 01/30/23 13:26:00 EDT, Height, 126, kg, 01/30/23 13:26:00 EDT, Dry Weight Start Date: 03/01/23 Status: Ordered atorvastatin 40 mg oral tablet See Instructions, TAKE 1 TABLET BY MOUTH EVERY DAY, # 90 tablet, 0 Refills, Maintenance, 05/01/23 21:18:00 EST, [facility], 188, cm, 04/26/23 13:06:00 EST, Height, [...] 2 Refills, Maintenance, 04/27/22 23:43:00 EST, Cream, [facility], 1 application Topically 2 times a day,Instr:apply to penile rash, 188, cm, 04/27/22 13:44:00 EST, Heigh... Start Date: 04/27/22 Status: Ordered diazepam 10 mg oral tablet See Instructions, PRN, 1 tablet By Mouth 1 hr before MRI, # 1 tablet, Refills 2, Tot. Refills 2, Maintenance, as needed for anxiety, 01/30/23 15:02:00 EDT, Instructions Replace Required Details, Route to Pharmacy Electronically, [facility],... Start Date: 01/30/23 Status: Ordered diclofenac 1% topical gel = 2 Gm, Topically, 4 times a day, PRN for pain, (guamanian) not to exceed: 16 gm/day/joint lower limb8 gm/day/joint of upper limb 32 gm/day may interchange for cream, # 100 Gm, 11 Refills, Maintenance, 04/15/22 13:02:00 EST, Gel, [facility]... Start Date: 04/15/22 Status: Ordered docusate [...] Start Date: 05/11/20 Status: Ordered Freestyle Tatyana [place] Freestyle Tatyana [place], See Instructions, # 1 each, Refills 0, Tot. Refills 0, Maintenance, Type 2 diabetes mellitus on insulin (E11, Z79.4). For use w/ Tatyana sensor, 05/31/23 13:17:00 EST, Compound,188, cm, 05/09/23 12:59:00 EST, Height, 126.09, kg,... Start Date: 05/31/23 Status: Ordered Freestyle Tatyana Sensor Freestyle Taytana Sensor, See Instructions, # 2 each, Refills [...] 11 Refills, Maintenance, 11/28/21 21:27:00 EDT, Solution, [facility], 188, cm, 11/22/21 16:37:00 EDT, Height, [...] Gm, 5 Refills, Maintenance, 12/22/21 7:28:00 EDT, [facility], same Rx was sent 11/11 w/ [...] 0 Refills, Maintenance, 01/12/22 7:27:00 EDT, Tablet, [facility], 188, cm, 12/26/21 14:06:00 EDT, Height, 122.63, kg, 11/22/21 16:37:00 EDT, Dry Weight Start Date: 01/12/22 Status: Ordered LUBRIC TEARS CALE 0.4-0.3% [place] INSTILL 1 DROP FOUR TIMES DAILY EACH EYE Start Date: 05/11/20 Status: Ordered magnesium oxide 400 mg oral tablet 1 tablet = 400 mg, By Mouth, Daily, # 90 tablet, 3 Refills, Maintenance, 05/07/23 16:31:00 EST, Tablet, [facility], 188, cm, 04/26/23 13:06:00 EST, Height, 126.09, kg, 04/26/23 13:06:00 EST, Dry Weight Start Date: 05/07/23 Status: Ordered meloxicam 15 mg oral tablet 1 tablet = 15 mg, By Mouth, Daily, Take with food PRN back pain Peruvian, # 14 tablet, 0 Refills, Maintenance, 11/25/21 [...] pain. IDC10: G90.5 CRPS. 28 day supply. [facility]., # 154 tablet, 0 Refills, Maintenance, pain, 05/22/23 23:14:00 EST,[facility], August partial fill., 05/22/23... Start Date: 05/22/23 Status: Ordered methadone 10 mg oral tablet See Instructions, By mouth. 2 tab in AM, 1.5 midday, 2 in evening;for pain. IDC10: G90.5 CRPS. 28 day supply. [facility]., # 154 tablet, 0 Refills, Maintenance, [...] EDT Start Date: 02/16/22 Status: Ordered Pen [place], 31 G x 8 mm BD Ultra [...] 02/18/23 19:20:00 EST, Route to Pharmacy Electronically, [facility], 188, cm, 01/30/23 13:26:00 EDT, Height, [...] tablet, 5 Refills, Maintenance, 12/19/22 20:41:00 EDT, [facility], 30, TAKE 1 TABLET BY MOUTH EVERY DAY, 188, cm, 10/19/22 13:16:00 EDT, Height, 122.63, kg, 11/22/21 16:37:00 EDT, Dry Weight Start Date: 12/19/22 Status: Ordered tamsulosin 0.4 mg oral capsule 0.8 mg, 2, capsule, By Mouth, Daily, dose increase, # 60 capsule, Refills 11, Tot. Refills 11, Maintenance, 07/27/22 11:57:00 EDT, Route to Pharmacy Electronically, [facility], 188, cm, 07/18/22 14:01:00 EDT, Height, 122.63, kg, 11/22/21 16:... Start Date: 07/27/22 Status: Ordered Test Strips See Instructions, # 100 each, Refills 5, Tot. Refills 5, Maintenance, Precision Ganga strips (for Freestyle Tatyana glucometer). Type 2 diabetes mellitus on insulin (E11, Z79.4). Test 2-4x/day if symptoms, or sensor concerns., 02/08/23 10:36:00 EDT, [place]... Start Date: 02/08/23 Status: Ordered Test Strips [...] Intramuscular, Every 14 days, IM or subcutaneous. [facility]., # 2 mL, 5 Refills, Maintenance, 05/04/23 13:34:00 EST, [facility], 188, cm, 04/26/23 13:06:00 EST, Height, 126.09, kg, 04/26/23 13:06:00 EST, Dry Weight Start Date: 05/04/23 Status: Ordered tiZANidine 4 mg oral tablet 4 mg, 1, tablet, By Mouth, 3 times a day, PRN, # 90 tablet, Refills 11, Tot. Refills 11, Maintenance, as needed for muscle spasm, 08/18/22 8:03:00 EDT, Route to Pharmacy Electronically, [facility], 188, cm, 07/18/22 14:01:00 EDT, Height, 122... Start Date: 08/18/22 Status: Ordered Della Hodges SoloStar 300 units/mL subcutaneous solution = 60 units, Subcutaneous Injection, Daily, # 12 mL, 11 Refills, Maintenance, 02/08/23 10:15:00 EDT,Solution, [facility], replaces Lantus due to insurance coverage, 188, cm, 01/30/23 13:26:00 EDT, Height, 126, kg, 01/30/23 13:26:00 EDT, Dry... Start Date: 02/08/23 Status: Ordered Tylenol Extra Strength 500 mg oral tablet 2 tablet = 1,000 mg, By Mouth, 3 times a day, # 30 tablet, 11 Refills, Maintenance, 03/24/21 21:00:00 EST, [facility], 188, cm, 03/22/21 14:17:00 EST, Height, 125.2, kg, 06/20/20 14:28:00 EST, Dry Weight Start Date: 03/24/21 Status: Ordered Vitamin D3 1000 intl units oral tablet 1 tablet, By Mouth, Daily, # 90 tablet, 4 Refills, Maintenance, 04/01/23 22:28:00 EST, [facility], 188, cm, 01/30/23 13:26:00 EDT, Height, [...] ? chr regional pain syndrome 4s/p Modified Wilmer procedure, repair of conjoined tendon of extensor [...] Team Personnel Name: Shoaib An RN Position: [facility] RN Supv Member Role: Primary Care Nurse Name: Donovan DE LOS SANTOS, Vamshi Oshea Position: [facility] Physician - Primary Care Member Role: PCP Address: Address: [address] [place] [address]- Name: Luz Potter Position: [facility] Outreach Member Role: Lifetime Consulting Physician Name: Miki Rodriguez MD Position: [facility] Renal MD Member Role: Lifetime Consulting Physician Address: Address: [address] [facility] [place], [place] [address] Care Team Related Persons Name: BRANDON MTZ Address: home [address] [place] [address] Name: BRANDON BARKER Address: home [address] [place] [address] Name: ROSALINDA BERTRAND
--- OUTSIDE RECORDS SUMMARY | 2023-10-11 08:09 | XMS_ITS | Continuity of Care Document ---
Author Organization [facility] Address Unknown Care Team Providers Care Intermediate Manager Name Role Phone Vamshi Man MD Primary Care Physician [facility] Date[facility]s): 11/22/20 - 12/22/20 [facility] Allergies, Adverse Reactions, Alerts Substance Reaction Severity [...] Elissa Bertrand 12Result Comment: [11/27/2017] REceived at [facility] at [place], [place]; ordered by Dr Michael Oliveira 13Location [...] tablet, 5 Refills, Maintenance, 11/18/20 15:30:00 EDT, [facility], 188, cm, 09/22/20 8:33:00 EDT, Height, 125.2, kg, 06/20/20 14:28:00 EST, Dry Weight Start Date: 11/18/20 Status: Ordered AutoCPAP 9-18 with heated humidification AutoCPAP 9-18 with heated humidification, See Instructions, # 1 each, Refills 0, Tot. Refills 0, Maintenance, use overnight and naps from [facility], 11/04/18 12:28:22 EDT, Compound Start Date: [...] capsule, 3 Refills, Maintenance, 03/30/20 21:36:00 EST, [facility], 185, cm, 02/25/20 10:29:00 EST, Height, 126.81, kg, 02/25/20 10:29:00 EST, Dry Weight Start Date: 03/30/20 Status: Ordered clotrimazole 1% topical cream 1 application, Topically, 2 times a day, apply to penile rash, # 30 Gm, 2 Refills, Maintenance, 01/07/20 14:49:00 EDT, Cream, [facility], 1 application Topically 2 times a day,Instr:apply to penile rash, 185, cm, 01/07/20 13:55:00 EDT, [facility]... Start Date: 01/07/20 Status: Ordered Cozaar 100 mg oral tablet 1 tablet = 100 mg, By Mouth, Daily in AM, # 30 tablet, 11 Refills, Maintenance, 09/22/20 9:41:00 EDT, Tablet, [facility], duplicate rx. original sent 09/16/19. remaining [...] 06/25/20 15:39:00 EST, Route to Pharmacy Electronically, [facility], Partial f... Start Date: 06/25/20 Status: Ordered diclofenac 1% topical gel = 2 Gm, Topically, 4 times a day, PRN for pain, (mohawk) not to exceed: 16 gm/day/joint lower limb8 gm/day/joint of upper limb 32 gm/day may interchange for cream, # 100 Gm, 5 Refills, Maintenance,07/08/20 15:35:00 EDT, Gel, [facility] Start Date: 07/08/20 Status: Ordered docusate [...] 11 Refills, Maintenance, 02/15/20 21:05:00 EST, Solution, [facility], 185, cm, 01/07/20 13:55:00 EDT, Height, [...] Dr Poe Start Date: 05/11/20 Status: Ordered ketotifen 0.025% ophthalmic solution 1 drops, Eyes, Both, Every 12 hours, # 5 mL, 0 Refills, Acute 01/21/21 10:37:00 EDT, 12/22/20 10:36:00 EDT, Ophth Solution, [facility], Partial fill upon patient request if the prescriptionis for a schedule II opioid drug., 1 drops Eyes, Anival... Start Date: 12/22/20 Stop Date: 01/21/21 Status: Ordered Lantus Solostar Pen 100 units/mL subcutaneous solution = 90 units, Subcutaneous Infusion, Daily at bedtime, # 30 mL, 3 Refills, Maintenance, 07/08/20 15:42:00 EDT, [facility], Duplicate rx-Original rx sent 06/22/20. Resent., 188, cm, 07/08/20 13:42:00 EDT, Height, 125.2, kg, 06/20/20 14:28:00 EST,... Start Date: 07/08/20 Status: Ordered latanoprost 0.005% ophthalmic solution 0 Refills, Maintenance, 05/11/20 16:57:00 EST Start Date: 05/11/20 Status: Ordered lidocaine 5% topical ointment See Instructions, 1 APPLICATION TOPICALLY 3 TIMES A DAY, # 70.88 Gm, 4 Refills, Acute, [facility], 14, 1 APPLICATION TOPICALLY 3 TIMES A DAY, 188, cm, 09/22/20 8:33:00 EDT, Height, 125.2, kg, 06/20/20 14:28:00 EST, Dry Weight Start Date: 11/08/20 Status: Ordered Lipitor 40 mg oral tablet 1 tablet = 40 mg, By Mouth, Daily, # 90 tablet, 3 Refills, Maintenance, 03/30/20 21:30:00 EST, [facility], duplicate rx. original sent 11/04/19. remaining refill sent., 185, cm, 02/25/20 10:29:00 EST, Height, 126.81, kg, 02/25/20 10:29:00 EST... Start Date: 03/30/20 Status: Ordered LORazepam 1 mg oral tablet See Instructions, PRN for anxiety, 2 tablets By Mouth 1 hours prior to MRI, # 2 tablet, 0 Refills, Acute 09/22/21 9:45:00 EDT, 09/22/20 9:43:00 EDT, Tablet, [facility], Partial fill upon patient [...] 3 Refills, Maintenance, 07/08/20 15:40:00 EDT, Tablet, [facility], Duplicate rx-Original rx sent06/22/20. Resent., 188, cm, 07/08/20 13:42:00 EDT, He... Start Date: 07/08/20 Status: Ordered methadone 10 mg oral tablet See Instructions, By mouth. 2 tab in AM, 1.5 midday, 2 in evening;for pain. IDC10: G90.5 CRPS. 28 day supply. [facility]., # 154 tablet, 0 Refills, Maintenance, pain, 01/04/21 10:39:00 EDT,[facility], May partial fill., 01/04/21... Start Date: 01/04/21 Status: Ordered methadone 10 mg oral tablet See Instructions, By mouth. 2 tab in AM, 1.5 midday, 2 in evening;for pain. IDC10: G90.5 CRPS. 28 day supply. [facility]., # 154 tablet, 0 Refills, Maintenance, pain, 02/01/21 10:39:00 EDT,[facility], May partial fill., 02/01/21... Start Date: 02/01/21 Status: Ordered Metoclopramide = 10 mg, By Mouth, 3 times a day before meals and bedtime, 0 Refills, Maintenance, 08/20/18 13:55:26 EDT Start Date: 08/20/18 Status: Ordered multivitamin Multiple Vitamins oral tablet 1 tablet, By Mouth, Daily, B complex multivitamin, # 30 tablet, 11 Refills, Maintenance, 12/22/20 10:52:00 EDT, [facility], Partial fill upon patient [...] Start Date: 05/15/18 Status: Ordered nystatin-triamcinolone topical 413991 u/gm-0.1% ointment 1 applicator, Topically, 3 times a day, to foreskin area FOR 3 DAYS then switch to other antifungal, # 15 Gm, 1 Refills, Maintenance, 07/08/20 15:34:00 EDT, [facility], 1 applicator Topically 3 times a [...] EDT Start Date: 08/20/18 Status: Ordered Pen [place], 31 G x 8 mm BD Ultra [...] 03/30/20 21:31:00 EST, Route to Pharmacy Electronically, [facility], 185, cm, 11/11/20 10:29:00 EST, Height, 126.81, kg, 02/25/20 10:29:00 [...] solution 0.75 mL, Intramuscular, Every 14 days, [facility], # 5 mL, 5 Refills, Maintenance, 08/29/20 21:33:00 EDT, [facility], 188, cm, 07/08/20 13:42:00 EDT, Height, 125.2, kg, 06/20/20 14:28:00 EST, Dry Weight Start Date: 08/29/20 Status: Ordered tiZANidine 4 mg oral tablet 4 mg, 1, tablet, By Mouth, 3 times a day, PRN, # 90 tablet, Refills 11, Tot. Refills 11, Maintenance, as needed for muscle spasm, 07/08/20 15:40:00 EDT, Route to Pharmacy Electronically, [facility], 188, cm, 07/08/20 13:42:00 EDT, Height, [...] ? chr regional pain syndrome 4s/p Modified [place] procedure, repair of conjoined tendon of extensor [...]
--- OUTSIDE RECORDS SUMMARY | 2023-10-11 08:09 | XMS_ITS | Continuity of Care Document ---
Author Organization [facility] Address [address] [place] [address]- Care Team Providers Care Felt Puller Name Role Phone Vamshi Man MD Primary Care Physician [facility] Date[facility]s): 05/11/20 - 06/10/20 [facility]/[address] [address]- Allergies, Adverse Reactions, Alerts Substance Reaction Severity [...] Elissa Bertrand 11Result Comment: [11/27/2017] REceived at [facility] [place], [place]; ordered by Dr Michael Oliveira 12Location [...] 03/30/20 21:31:00 EST, Route to Pharmacy Electronically, [facility], [facility] rx. original sent 11/04/19. remaining refills sent., 185, cm, 02/25/20 10:29:00 EST, Hei... Start Date: 03/30/20 Status: Ordered AutoCPAP 9-18 with heated humidification AutoCPAP 9-18 with heated humidification, See Instructions, # 1 each, Refills 0, Tot. Refills 0, Maintenance, use overnight and naps from [facility], 11/04/18 12:28:22 EDT, Compound Start Date: [...] capsule, 3 Refills, Maintenance, 03/30/20 21:36:00 EST, [facility], 185, cm, 02/25/20 10:29:00 EST, Height, 126.81, kg, 02/25/20 10:29:00 EST, Dry Weight Start Date: 03/30/20 Status: Ordered clotrimazole 1% topical cream 1 application, Topically, 2 times a day, apply to penile rash, # 30 Gm, 2 Refills, Maintenance, 01/07/20 14:49:00 EDT, Cream, [facility], 1 application Topically 2 times a day,Instr:apply to penile rash, 185, cm, 01/07/20 13:55:00 EDT, [facility]... Start Date: 01/07/20 Status: Ordered Cozaar 100 mg oral tablet 1 tablet = 100 mg, By Mouth, Daily in AM, # 30 tablet, 5 Refills, Maintenance, 03/15/20 17:08:00 EST, Tablet, [facility], duplicate rx. original sent 09/16/19. remaining refills sent., 185, cm, 02/25/20 10:29:00 EST, Height, 126.81, kg, ... Start Date: 03/15/20 Status: Ordered diclofenac 1% topical gel = 2 Gm, Topically, 4 times a day, PRN for pain, (chadian) not to exceed: 16 gm/day/joint lower limb8 gm/day/joint of upper limb 32 gm/day, # 100 Gm, 1 Refills, Maintenance, 10/27/19 10:15:00 EDT, Gel, [facility], 185, cm, 06/24/19 13:00:... Start Date: [...] 11 Refills, Maintenance, 02/15/20 21:05:00 EST, Solution, [facility], 185, cm, 01/07/20 13:55:00 EDT, Height, [...] mL, 2 Refills, Maintenance, 05/06/20 9:55:00 EST, [facility], 185, cm, 02/25/20 10:29:00 EST, Height, 126.81, [...] Gm, 5 Refills, Maintenance, 10/28/19 20:11:00 EDT, [facility], 1 application Topically 3 times a day,Instr:august interchang... Start Date: 10/28/19 Status: Ordered Lipitor 40 mg oral tablet 1 tablet = 40 mg, By Mouth, Daily, # 90 tablet, 3 Refills, Maintenance, 03/30/20 21:30:00 EST, [facility], duplicate rx. original sent 11/04/19. remaining [...] 11 Refills, Maintenance, 06/24/19 15:02:00 EDT, Tablet, [facility], 185, cm, 06/24/19 13:00:00 EDT, Height, 127.72, kg, 05/06/19 13:41:00 EST, Dry We... Start Date: 06/24/19 Status: Ordered methadone 10 mg oral tablet See Instructions, By mouth. 2 tab in AM, 1.5 midday, 2 in evening;for pain. IDC10: G90.5 CRPS. 28 day supply. [facility]., # 154 tablet, 0 Refills, Maintenance, pain, 03/30/20 23:51:00 EST,[facility], May partial fill., 03/30/20... Start Date: 03/30/20 Status: Ordered methadone 10 mg oral tablet See Instructions, By mouth. 2 tab in AM, 1.5 midday, 2 in evening;for pain. IDC10: G90.5 CRPS. 28 day supply. [facility]., # 154 tablet, 0 Refills, Maintenance, pain, 05/24/20 16:29:00 EST,[facility], May partial fill., 05/24/20... Start Date: [...] Start Date: 05/15/18 Status: Ordered nystatin-triamcinolone topical 734172 u/gm-0.1% ointment 1 applicator, Topically, 3 times a day, to foreskin area FOR 3 DAYS then switch to other antifungal, # 15 Gm, 1 Refills, Maintenance, 01/07/20 14:48:00 EDT, [facility], 1 applicator Topically 3 times a [...] EDT Start Date: 08/20/18 Status: Ordered Pen [place], 31 G x 8 mm BD Ultra [...] 03/30/20 21:31:00 EST, Route to Pharmacy Electronically, [facility], 185, cm, 02/25/20 10:29:00 EST, Height, [...] solution 0.75 mL, Intramuscular, Every 14 days, [facility], # 5 mL, 5 Refills, Maintenance, 01/11/20 21:30:00 EDT, [facility], 185, cm, 01/07/20 13:55:00 EDT, Height, 127.72, kg, 05/06/19 13:41:00 EST, Dry Weight Start Date: 01/11/20 Status: Ordered tiZANidine 4 mg oral tablet 4 mg, 1, tablet, By Mouth, 3 times a day, PRN, # 90 tablet, Refills 11, Tot. Refills 11, Maintenance, as needed for muscle spasm, 05/11/20 18:47:00 EST, Route to Pharmacy Electronically, [facility], 185, cm, 02/25/20 10:29:00 EST, Height, 12... Start Date: 05/11/20 Status: Ordered traZODone 100 mg oral tablet TAKE ONE TO TWO TABLETS BY MOUTH AT BEDTIME NEEDED S. McAnulty Start Date: 05/11/20 Status: Ordered Problem List Condition Effective Dates Status Health Status Inform ant Alcohol abuse - per josé 2015(Confirmed) Active Allergic rhinitis(Confirmed) Active Anxiety disorder(Confirmed) Active Asthma(Confirmed) Active Cataracts(Confirmed) 2014 Active Cervical disc disorder with radiculopathy(Confirmed) 1 2010 Active Chronic pain syndrome(Confirmed)(Stable) 2, 3 [...]
--- OUTSIDE RECORDS SUMMARY | 2023-10-11 08:09 | XMS_ITS | Continuity of Care Document ---
Author Organization [facility] Address [address] [place] [address]- Care Team Providers Care Benefit Director Name Role Phone Vamshi Man MD Primary Care Physician [facility]counter [facility] Date(s): 07/06/22 - 08/05/22 [facility]/[place] [address]- [place] Allergies, Adverse Reactions, Alerts Substance Reaction Severity Status penicillin 1 rash Resolved Latex RASH Active Other Food Allergy fresh peaches - itch y mouth, throat and lips swell Active 1rash per mother as child. Did take a penicillin for treatment of H pylori per pt w/o problem. Immunizations Given and Recorded Vaccine Date Status Refusal Reason [id number] 12y+ bivalent booster vax 02/16/22 Given pneumococcal 20-valent conjugate vaccine 02/16/22 Given Influenza Virus Vaccine (oldterm) 1 01/27/22 Recor ded Influenza Virus Vaccine (oldterm) 01/26/21 Recorde d SARS-CoV-2 mRNA ([id number]) vax 11/11/21 Given SARS-CoV-2 (COVID-19) mRNA BNT-162b2 [...] Ravindra rded influenza virus vaccine, inactivated 3 10/1/16 Re corded influenza virus vaccine, inactivated 4 [...] Elissa Bertrand 13Result Comment: [11/27/2017] REceived at [facility] [place], [place]; ordered by Dr Michael Oliveira 14Location [...] tablet, 5 Refills, Maintenance, 11/20/21 13:03:00 EDT, [facility], 188, cm, 11/11/21 12:46:00 EDT, Height, 125.2, kg, 06/20/20 14:28:00 EST, Dry Weight Start Date: 11/20/21 Status: Ordered atorvastatin 40 mg oral tablet 1 tablet, By Mouth, Daily, # 90 tablet, 1 Refills, Maintenance, 04/10/22 12:34:00 EST, [facility], 188, cm, 02/16/22 13:07:00 EDT, Height, 122.63, kg, 11/22/21 16:37:00 EDT, Dry Weight Start Date: 04/10/22 Status: Ordered AutoCPAP 9-18 with heated humidification [...] 0 Refills, Maintenance, 05/15/22 16:24:00 EST, Tablet, [facility], Partial fill upon patient [...] 2 Refills, Maintenance, 04/27/22 23:43:00 EST, Cream, [facility], 1 application Topically 2 times a day,Instr:apply to penile rash, 188, cm, 04/27/22 13:44:00 EST, Heigh... Start Date: 04/27/22 Status: Ordered diclofenac 1% topical gel = 2 Gm, Topically, 4 times a day, PRN for pain, (romanian) not to exceed: 16 gm/day/joint lower limb8 gm/day/joint of upper limb 32 gm/day may interchange for cream, # 100 Gm, 11 Refills, Maintenance, 04/15/22 13:02:00 EST, Gel, [facility]... Start Date: 04/15/22 Status: Ordered docusate [...] EST Start Date: 05/11/20 Status: Ordered Freestyle Lite Monitor See Instructions, [...] Dry Weight Start Date: 07/06/22 Status: Ordered gabapentin 600 mg oral tablet 1 tablet = 600 mg, By Mouth, 2 times a day, PRN back pain and sciatica May cause drowsiness, do notdrive after taking Mexican, # 28 tablet, 0 Refills, Maintenance, 04/07/22 15:51:00 EST, [facility], 188, cm, 02/16/22 13:07:00 EDT, Heigh... Start [...] 11 Refills, Maintenance, 11/28/21 21:27:00 EDT, Solution, [facility], 188, cm, 11/22/21 16:37:00 EDT, Height, 122.63, kg, 11/22/21 16:37:00 EDT, Dry We... Start Date: 11/28/21 Status: Ordered ketotifen 0.025% ophthalmic solution INSTILL 1 DROP INTO AFFECTED EYE TWICE A DAY Dr Lui Ribeiro Date: 05/11/20 Status: Ordered Lancets See Instructions, # 100 each, Refills 5, Tot. Refills 5, Maintenance, 3x per day for type 2 diabetes m. Dx: E11., 08/12/21 11:15:00 EDT, Compound, 188, cm, 07/27/21 8:34:00 EDT, Height, 125.2, kg, 06/20/20 14:28:00 EST, Dry Weight Start Date: 08/12/21 Status: Ordered Lantus Solostar Pen 100 units/mL subcutaneous solution See Instructions, INJECT 90 UNITS SUBCUTANEOUS INFUSION DAILY AT BEDTIME, # 30 mL, 5 Refills, Maintenance, 08/02/22 14:51:00 EDT, [facility], 188, cm, 07/18/22 14:01:00 EDT, Height, 122.63,kg, 11/22/21 16:37:00 EDT, Dry Weight Start Date: 08/02/22 Status: Ordered latanoprost 0.005% ophthalmic solution 0 Refills, Maintenance, 05/11/20 16:57:00 EST Start Date: 05/11/20 Status: Ordered lidocaine 5% topical ointment See Instructions, PRN Pain , Moderate, 1 APPLICATION TOPICALLY 3 TIMES A DAY, # 50 Gm, 5 Refills, Maintenance, 12/22/21 7:28:00 EDT, [facility], same Rx was sent 11/11 w/ [...] 0 Refills, Maintenance, 01/12/22 7:27:00 EDT, Tablet, [facility], 188, cm, 12/26/21 14:06:00 EDT, Height, 122.63, kg, 11/22/21 16:37:00 EDT, Dry Weight Start Date: 01/12/22 Status: Ordered losartan 100 mg oral tablet 1 tablet, By Mouth, Daily in AM, # 30 tablet, 5 Refills, 03/20/22 10:07:00 EST, [facility], 188, cm, 02/16/22 13:07:00 EDT, Height, 122.63, kg, 11/22/21 16:37:00 EDT, Dry Weight Start Date: 03/20/22 Status: Ordered LUBRIC TEARS CALE 0.4-0.3% Milliliters INSTILL 1 DROP FOUR TIMES DAILY EACH EYE Start Date: 05/11/20 Status: Ordered magnesium oxide 400 mg oral tablet 1 tablet = 400 mg, By Mouth, Daily, # 30 tablet, 11 Refills, Maintenance, 04/27/22 15:29:00 EST, Tablet, [facility], Partial fill upon patient request if the prescription is for a schedule II opioid drug., 188, cm, 04/27/22 13:44:00 EST, Hei... Start Date: 04/27/22 Status: Ordered meloxicam 15 mg oral tablet 1 tablet = 15 mg, By Mouth, Daily, Take with food PRN back pain Mexican, # 14 tablet, 0 Refills, Maintenance, 11/25/21 [...] Refills, Maintenance, 11/22/21 17:53:00 EDT, ER Tablet, [facility], Partial fill upon patient requestif the prescription is for a schedule II opioid alessandra... Start Date: 11/22/21 Status: Ordered methadone 10 mg oral tablet See Instructions, By mouth. 2 tab in AM, 1.5 midday, 2 in evening;for pain. IDC10: G90.5 CRPS. 28 day supply. [facility]., # 154 tablet, 0 Refills, Maintenance, pain, 10/10/22 19:56:00 EDT,[facility], August partial fill., 10/10/22... Start Date: 10/10/22 Status: Ordered methadone 10 mg oral tablet See Instructions, By mouth. 2 tab in AM, 1.5 midday, 2 in evening;for pain. IDC10: G90.5 CRPS. 28 day supply. [facility]., # 154 tablet, 0 Refills, Maintenance, pain, 09/12/22 19:56:00 EDT,[facility], August partial fill., 09/12/22... Start Date: 09/12/22 Status: Ordered methadone 10 mg oral tablet See Instructions, By mouth. 2 tab in AM, 1.5 midday, 2 in evening;for pain. IDC10: G90.5 CRPS. 28 day supply. [facility]., # 154 tablet, 0 Refills, Maintenance, pain, 08/15/22 19:56:00 EDT,[facility], August partial fill., 08/15/22... Start Date: 08/15/22 Status: Ordered methadone 10 mg oral tablet See Instructions, By mouth. 2 tab in AM, 1.5 midday, 2 in evening;for pain. IDC10: G90.5 CRPS. 28 day supply. [facility]., # 154 tablet, 0 Refills, Maintenance, pain, 04/25/22 23:30:00 EST,[facility], August partial fill., 04/25/22... Start Date: 04/25/22 Status: Ordered Metoclopramide = 10 mg, By Mouth, 3 times a day before meals and bedtime, 0 Refills, Maintenance, 08/20/18 13:55:26 EDT Start Date: 08/20/18 Status: Ordered multivitamin Multiple Vitamins oral tablet 1 tablet, By Mouth, Daily, B complex multivitamin, # 30 tablet, 11 Refills, Maintenance, 11/22/21 17:58:00 EDT, [facility], Partial fill upon patient request if the prescription is for a schedule II opioid drug., 1 tablet By Mouth Daily,Inst... Start Date: 11/22/21 Status: Ordered naproxen 500 mg oral tablet [...] 1 Refills, Soft Stop, 02/16/22 23:38:00 EDT, [facility], 188, cm, 02/16/22 13:07:00 EDT, Height,122.63, [...] EDT Start Date: 02/16/22 Status: Ordered Pen [place], 31 G x 8 mm BD Ultra [...] Dry Weight Start Date: 06/13/22 Status: Ordered semaglutide 8 mg/3 mL (2 mg dose) subcutaneous solution = 2 mg, Subcutaneous Infusion, Every 7 days, in the abdomen, thigh, or upper arm. Dose increase, # 3 mL, 11 Refills, Maintenance, 04/27/22 23:40:00 EST, [facility], 188, cm, 04/27/22 13:44:00 EST, Height, 122.63, kg, 11/22/21 16:37:00 EDT,... Start Date: 04/27/22 Status: Ordered Singulair 10 mg oral tablet 10 mg, 1, tablet, By Mouth, Daily, # 90 tablet, Refills 3, Tot. Refills 3, Maintenance, 03/30/20 21:31:00 EST, Route to Pharmacy Electronically, [facility], 185, cm, 02/25/20 10:29:00 EST, Height, 126.81, kg, 02/25/20 10:29:00 EST, Dry Weight Start Date: 03/30/20 Status: Ordered tamsulosin 0.4 mg oral capsule 0.8 mg, 2, capsule, By Mouth, Daily, dose increase, # 60 capsule, Refills 11, Tot. Refills 11, Maintenance, 07/27/22 11:57:00 EDT, Route to Pharmacy Electronically, [facility], 188, cm, 07/18/22 14:01:00 EDT, Height, [...] Intramuscular, Every 14 days, IM or subcutaneous. [facility]., # 2 mL, 5 Refills, Maintenance, 07/26/22 21:21:00 EDT, [facility], 188, cm, 07/18/22 14:01:00 EDT, Height, 122.63, kg, 11/22/21 16:37:00 EDT, Dry Weight Start Date: 07/26/22 Status: Ordered tiZANidine 4 mg oral tablet 4 mg, 1, tablet, By Mouth, 3 times a day, PRN, # 90 tablet, Refills 11, Tot. Refills 11, Maintenance, as needed for muscle spasm, 08/12/21 11:09:00 EDT, Route to Pharmacy Electronically, [facility], 188, cm, 07/27/21 8:34:00 EDT, Height, 125... Start Date: 08/12/21 Status: Ordered traZODone 100 mg oral tablet TAKE ONE TO TWO TABLETS BY MOUTH AT BEDTIME NEEDED SZayra Morales Start Date: 05/11/20 Status: Ordered Tylenol Extra Strength 500 mg oral tablet 2 tablet = 1,000 mg, By Mouth, 3 times a day, # 30 tablet, 11 Refills, Maintenance, 03/24/21 21:00:00 EST, [facility], 188, cm, 03/22/21 14:17:00 EST, Height, 125.2, kg, 06/20/20 14:28:00 EST, Dry Weight Start Date: 03/24/21 Status: Ordered Vitamin D3 1000 intl units oral tablet 1 tablet, By Mouth, Daily, for 30 days, # 30 tablet, 11 Refills, Physician Stop 10/30/22 17:07:00 EDT, 11/04/21 17:07:00 EDT, [facility], 188, cm, 09/15/21 12:49:00 EDT, Height, 125.2, kg, 06/20/20 14:28:00 EST, Dry Weight Start Date: 11/04/21 Stop Date: 10/30/22 Status: Ordered Problem List Condition Confirmation Course [...] Team Personnel Name: Shoaib An RN Position: [facility] RN Supv Member Role: Primary Care Nurse Name: Vamshi Man MD Position: [facility] Primary Care Physician Member Role: PCP Address: Address: [address] [place] [address]- Name: Miki Rodriguez MD Position: [facility] Renal MD Member Role: Lifetime Consulting Physician Address: Address: [address] [facility] [place] [address]- Care Team Related Persons Name: BRANDON MTZ Address: home [address] [place] [address] Name: BRANDON BARKER Address: home [address] [place] [address] Name: ROSALINDA BERTRAND Address: home [address] [place] [address]
--- OUTSIDE RECORDS SUMMARY | 2023-10-11 08:09 | XMS_ITS | Continuity of Care Document ---
Author Organization [facility] Address [address] [place] [address]- Care Team Providers Care Dry Wall Sprayer Name Role Phone Vamshi Man MD Primary Care Physician [facility]counter [facility] Date(s): 06/22/20 - 07/22/20 [facility]/[address] [address]- Allergies, Adverse Reactions, Alerts Substance Reaction Severity [...] Elissa Bertrand 12Result Comment: [11/27/2017] REceived at [facility] at [place], [place]; ordered by Dr Michael Oliveira 13Location [...] 03/30/20 21:31:00 EST, Route to Pharmacy Electronically, [facility], dupilcate rx. original sent 11/04/19. remaining refills sent., 185, cm, 02/25/20 10:29:00 EST, Hei... Start Date: 03/30/20 Status: Ordered AutoCPAP 9-18 with heated humidification AutoCPAP 9-18 with heated humidification, See Instructions, # 1 each, Refills 0, Tot. Refills 0, Maintenance, use overnight and naps from [facility], 11/04/18 12:28:22 EDT, Compound Start Date: [...] capsule, 3 Refills, Maintenance, 03/30/20 21:36:00 EST, [facility], 185, cm, 02/25/20 10:29:00 EST, Height, 126.81, kg, 02/25/20 10:29:00 EST, Dry Weight Start Date: 03/30/20 Status: Ordered clotrimazole 1% topical cream 1 application, Topically, 2 times a day, apply to penile rash, # 30 Gm, 2 Refills, Maintenance, 01/07/20 14:49:00 EDT, Cream, [facility], 1 application Topically 2 times a day,Instr:apply to penile rash, 185, cm, 01/07/20 13:55:00 EDT, [facility]... Start Date: 01/07/20 Status: Ordered Cozaar 100 mg oral tablet 1 tablet = 100 mg, By Mouth, Daily in AM, # 30 tablet, 5 Refills, Maintenance, 03/15/20 17:08:00 EST, Tablet, [facility], duplicate rx. original sent 09/16/19. remaining [...] 06/25/20 15:39:00 EST, Route to Pharmacy Electronically, [facility], Partial f... Start Date: 06/25/20 Status: Ordered diclofenac 1% topical gel = 2 Gm, Topically, 4 times a day, PRN for pain, (grenadian) not to exceed: 16 gm/day/joint lower limb8 gm/day/joint of upper limb 32 gm/day may interchange for cream, # 100 Gm, 5 Refills, Maintenance,07/08/20 15:35:00 EDT, Gel, [facility] Start Date: 07/08/20 Status: Ordered docusate [...] 11 Refills, Maintenance, 02/15/20 21:05:00 EST, Solution, [facility], 185, cm, 01/07/20 13:55:00 EDT, Height, [...] mL, 3 Refills, Maintenance, 07/08/20 15:42:00 EDT, [facility], Duplicate rx-Original rx sent 06/22/20. Resent., 188, cm, 07/08/20 13:42:00 EDT, Height, 125.2, kg, 06/20/20 14:28:00 EST,... Start Date: 07/08/20 Status: Ordered latanoprost 0.005% ophthalmic solution 0 Refills, Maintenance, 05/11/20 16:57:00 EST Start Date: 05/11/20 Status: Ordered Lipitor 40 mg oral tablet 1 tablet = 40 mg, By Mouth, Daily, # 90 tablet, 3 Refills, Maintenance, 03/30/20 21:30:00 EST, [facility], duplicate rx. original sent 11/04/19. remaining [...] 3 Refills, Maintenance, 07/08/20 15:40:00 EDT, Tablet, [facility], Duplicate rx-Original rx sent06/22/20. Resent., 188, cm, 07/08/20 13:42:00 EDT, He... Start Date: 07/08/20 Status: Ordered methadone 10 mg oral tablet See Instructions, By mouth. 2 tab in AM, 1.5 midday, 2 in evening;for pain. IDC10: G90.5 CRPS. 28 day supply. [facility]., # 154 tablet, 0 Refills, Maintenance, pain, 07/20/20 15:43:00 EDT,[facility], May partial fill., 188, cm,... Start Date: 07/20/20 Status: Ordered methadone 10 mg oral tablet See Instructions, By mouth. 2 tab in AM, 1.5 midday, 2 in evening;for pain. IDC10: G90.5 CRPS. 28 day supply. [facility]., # 154 tablet, 0 Refills, Maintenance, pain, 08/17/20 15:47:00 EDT,[facility], May partial fill., 08/17/20... Start Date: [...] Start Date: 05/15/18 Status: Ordered nystatin-triamcinolone topical 114403 u/gm-0.1% ointment 1 applicator, Topically, 3 times a day, to foreskin area FOR 3 DAYS then switch to other antifungal, # 15 Gm, 1 Refills, Maintenance, 07/08/20 15:34:00 EDT, [facility], 1 applicator Topically 3 times a [...] EDT Start Date: 08/20/18 Status: Ordered Pen [place], 31 G x 8 mm BD Ultra [...] 03/30/20 21:31:00 EST, Route to Pharmacy Electronically, [facility], 185, cm, 02/25/20 10:29:00 EST, Height, [...] solution 0.75 mL, Intramuscular, Every 14 days, [facility], # 5 mL, 5 Refills, Maintenance, 01/11/20 21:30:00 EDT, [facility], 185, cm, 01/07/20 13:55:00 EDT, Height, 127.72, kg, 05/06/19 13:41:00 EST, Dry Weight Start Date: 01/11/20 Status: Ordered tiZANidine 4 mg oral tablet 4 mg, 1, tablet, By Mouth, 3 times a day, PRN, # 90 tablet, Refills 11, Tot. Refills 11, Maintenance, as needed for muscle spasm, 07/08/20 15:40:00 EDT, Route to Pharmacy Electronically, [facility], 188, cm, 07/08/20 13:42:00 EDT, Height, 12... Start Date: 07/08/20 Status: Ordered traZODone 100 mg oral tablet TAKE ONE TO TWO TABLETS BY MOUTH AT BEDTIME NEEDED SZayra Morales Start Date: 05/11/20 Status: Ordered Problem [...] ? chr regional pain syndrome 4s/p Modified Cascade procedure, repair of conjoined tendon of extensor [...]
--- OUTSIDE RECORDS SUMMARY | 2023-10-11 08:09 | XMS_ITS | Continuity of Care Document ---
Author Organization [facility] Address [address] [place] [id number]- Care Team Providers Care Insurance Collector Name Role Phone Vamshi Man MD Primary Care Physician [facility]): 08[facility]09[facility]23 - 09/08/23 [facility]/[address] [address]- Allergies, Adverse Reactions, Alerts Substance Reaction Severity Status penicillin 1 rash Resolved penicillins Active Other Food Allergy fresh peaches - itch y mouth, throat and lips swell Active Latex RASH Active 1rash per mother as child. Did take a penicillin for treatment of H pylori per pt w/o problem. Immunizations Given and Recorded Vaccine Date Status Refusal Reason SARS-CoV-2(COVID-19)mRNA-LNP vac([id number]) 01/30/23 Given influenza virus vaccine, inactivated 01/05/23 [...] influenza virus vaccine, inactivated 03/19/06 Give n [id number] 12y+ bivalent booster vax 02/16/22 Given pneumococcal 20-valent conjugate vaccine 02/16/22 Given Influenza Virus Vaccine (oldterm) 9 01/27/22 Recor ded Influenza Virus Vaccine (oldterm) 01/26/21 Recorde d SARS-CoV-2 mRNA ([id number]) vax 11/11/21 Given SARS-CoV-2 (COVID-19) mRNA BNT-162b2 [...] 13Result Comment: [11/27/2017] REceived at [facility] [place], [place]; ordered by Dr Michael Oliveira 14Location [...] 11 Refills, Maintenance, 02/08/23 10:21:00 EDT, Powder, [facility], replaces Flovent due to insurance coverage, 188, cm, 01/30/23 13:26:00 EDT, Height, 126, kg, 01/30/23 13:26:00 EDT,... Start Date: 02/08/23 Status: Ordered Aspirin Low Dose 81 mg oral delayed release tablet 1 tablet, By Mouth, Daily, # 90 tablet, 4 Refills, Maintenance, 03/01/23 17:49:00 EST, [facility], 188, cm, 01/30/23 13:26:00 EDT, Height, 126, kg, 01/30/23 13:26:00 EDT, Dry Weight Start Date: 03/01/23 Status: Ordered atorvastatin 40 mg oral tablet 1 tablet, By Mouth, Daily, # 90 tablet, 1 Refills, Maintenance, 07/25/23 20:12:00 EDT, [facility], 188, cm, 07/05/23 11:09:00 EDT, Height, [...] 2 Refills, Maintenance, 04/27/22 23:43:00 EST, Cream, [facility], 1 application Topically 2 times a day,Instr:apply to penile rash, 188, cm, 04/27/22 13:44:00 EST, Heigh... Start Date: 04/27/22 Status: Ordered diazepam 10 mg oral tablet See Instructions, PRN, 1 tablet By Mouth 1 hr before MRI, # 1 tablet, Refills 2, Tot. Refills 2, Maintenance, as needed for anxiety, 01/30/23 15:02:00 EDT, Instructions Replace Required Details, Route to Pharmacy Electronically, [facility],... Start Date: 01/30/23 Status: Ordered diclofenac 1% topical gel = 2 Gm, Topically, 4 times a day, PRN for pain, (bangladeshi) not to exceed: 16 gm/day/joint lower limb8 gm/day/joint of upper limb 32 gm/day may interchange for cream, # 100 Gm, 11 Refills, Maintenance, 04/15/22 13:02:00 EST, Gel, [facility]... Start Date: 04/15/22 Status: Ordered docusate [...] 16 Gm, 11 Refills, Maintenance, 07/09/23 11:37:00EDT, [place], [facility], Partial fill upon patient request if the prescription is for a schedule II opioid drug., 2 sprays Nares, Both 2 times... Start Date: 07/09/23 Status: Ordered Freestyle Tatyana [place] Freestyle Tatyana [place], See Instructions, # 1 each, Refills 0, [...] days., 08/11/23 11:15:00 EDT, Recently sent to [facility]... Start Date: 08/11/23 Status: [...] 11 Refills, Maintenance, 11/28/21 21:27:00 EDT, Solution, [facility], 188, cm, 11/22/21 16:37:00 EDT, Height, [...] Gm, 5 Refills, Maintenance, 12/22/21 7:28:00 EDT, [facility], same Rx was sent 11/11 w/ [...] 3 Refills, Maintenance, 05/07/23 16:31:00 EST, Tablet, [facility], 188, cm, 04/26/23 13:06:00 EST, Height, 126.09, kg, 04/26/23 13:06:00 EST, Dry Weight Start Date: 05/07/23 Status: Ordered metFORMIN 750 mg oral tablet, extended release 1 tablet = 750 mg, By Mouth, Daily, [replaces the metformin 500mg bid], # 30 tablet, 5 Refills, Maintenance, 05/15/23 8:10:00 EST, ER Tablet, [facility], Partial fill upon patient request if the prescription is for a schedule II opioid drug.... Start Date: 05/15/23 Status: Ordered methadone 10 mg oral tablet See Instructions, By mouth. 2 tab in AM, 1.5 midday, 2 in evening;for pain. IDC10: G90.5 CRPS. 28 day supply. [facility]., # 154 tablet, 0 Refills, Maintenance, pain, 10/09/23 21:08:00 EDT,[facility], May partial fill., 0... Start Date: 10/09/23 Status: Ordered methadone 10 mg oral tablet See Instructions, By mouth. 2 tab in AM, 1.5 midday, 2 in evening;for pain. IDC10: G90.5 CRPS. 28 day supply. [facility]., # 154 tablet, 0 Refills, Maintenance, pain, 09/11/23 21:08:00 EDT,[facility], May partial fill., 0... Start Date: 09/11/23 Status: Ordered methadone 10 mg oral tablet See Instructions, By mouth. 2 tab in AM, 1.5 midday, 2 in evening;for pain. IDC10: G90.5 CRPS. 28 day supply. [facility]., # 154 tablet, 0 Refills, Maintenance, pain, 08/14/23 21:08:00 EDT,[facility], May partial fill., 0... Start Date: 08/14/23 Status: Ordered methadone 10 mg oral tablet See Instructions, By mouth. 2 tab in AM, 1.5 midday, 2 in evening;for pain. IDC10: G90.5 CRPS. 28 day supply. [facility]., # 154 tablet, 0 Refills, Maintenance, pain, 04/24/23 22:44:00 EST,[facility], May partial fill., 188, cm,... Start Date: 04/24/23 Status: Ordered Mounjaro 10 mg/0.5 mL subcutaneous solution = 10 mg, Subcutaneous Infusion, Every 7 days, please interchange with other Rx for 7.5 mg if unavailable., # 4 each, 11 Refills, Maintenance, 07/26/23 14:10:00 EDT, [facility], Partial fillupon patient request if the prescription is for a s... Start Date: 07/26/23 Status: Ordered Mounjaro 7.5 mg/0.5 mL subcutaneous solution = 7.5 mg, Subcutaneous Injection, Every week, rotate injection sites, # 4 each, 5 Refills, Maintenance, 07/07/23 17:04:00 EDT, Solution, [facility], should still have a couple months [...] 1 Refills, Soft Stop, 02/16/22 23:38:00 EDT, [facility], 188, cm, 02/16/22 13:07:00 EDT, Height,122.63, kg, 11/22/21 16:37:00 EDT, Dry Weight Start Date: 02/16/22 Status: Ordered ondansetron 4 mg oral tablet Rx by Idalia Sandoval, # 60, Maintenance, 08/11/23 11:48:00 EDT Start Date: 08/11/23 Status: Ordered pantoprazole 40 mg oral delayed release tablet 0 Refills, Maintenance, 02/16/22 23:33:00 EDT Start Date: 02/16/22 Status: Ordered Pen [place], 31 G x 8 mm BD Ultra [...] 02/18/23 19:20:00 EST, Route to Pharmacy Electronically, [facility], 188, cm, 01/30/23 13:26:00 EDT, Height, [...] tablet, 5 Refills, Maintenance, 07/09/23 11:09:00 EDT, [facility], 30, 1 tablet By Mouth Daily, 188, cm, 07/05/23 11:09:00 EDT, Height, 126.09, kg, 04/26/23 13:06:00 EST, Dry Weight Start Date: 07/09/23 Status: Ordered tamsulosin 0.4 mg oral capsule 0.8 mg, 2, capsule, By Mouth, Daily, dose increase, # 180 capsule, Refills 11, Tot. Refills 11, Maintenance, 07/26/23 14:15:00 EDT, Route to Pharmacy Electronically, [facility], 188, cm, 07/26/23 13:30:00 EDT, Height, 121.81, kg, 07/26/23 13... Start Date: 07/26/23 Status: Ordered Test Strips See Instructions, # 100 each, Refills 5, Tot. Refills 5, Maintenance, Precision Ganga strips (for Freestyle Tatyana glucometer). Type 2 diabetes mellitus on insulin (E11, Z79.4). Test 2-4x/day if symptoms, or sensor concerns., 02/08/23 10:36:00 EDT, [place]... Start Date: 02/08/23 Status: Ordered Test Strips [...] Intramuscular, Every 14 days, IM or subcutaneous. [facility]., # 2 mL, 5 Refills, Maintenance, 08/11/23 11:20:00 EDT, [facility], Last sent to [facility]. Sending now to [facility] due to pt request msg [email or web address]... Start Date: 08/11/23 Status: Ordered tiZANidine 4 mg oral tablet 4 mg, 1, tablet, By Mouth, 3 times a day, PRN, # 90 tablet, Refills 11, Tot. Refills 11, Maintenance, as needed for muscle spasm, 08/18/22 8:03:00 EDT, Route to Pharmacy Electronically, [facility], 188, cm, 07/18/22 14:01:00 EDT, Height, 122... Start Date: 08/18/22 Status: Ordered Toujeo Max SoloStar 300 units/mL subcutaneous solution = 70 units, Subcutaneous Injection, Daily, decrease frin 90u, # 12 mL, 11 Refills, Maintenance, 07/26/23 14:19:00 EDT, Solution, [facility], replaces Lantus due to insurance coverage, 188, cm, 07/26/23 13:30:00 EDT, Height, 121.81, kg, 07/25... Start Date: 07/26/23 Status: Ordered Tylenol Extra Strength 500 mg oral tablet 2 tablet = 1,000 mg, By Mouth, 3 times a day, # 30 tablet, 11 Refills, Maintenance, 03/24/21 21:00:00 EST, [facility], 188, cm, 03/22/21 14:17:00 EST, Height, 125.2, kg, 06/20/20 14:28:00 EST, Dry Weight Start Date: 03/24/21 Status: Ordered Vitamin D3 1000 intl units oral tablet 1 tablet, By Mouth, Daily, # 90 tablet, 4 Refills, Maintenance, 04/01/23 22:28:00 EST, [facility], 188, cm, 01/30/23 [...] Team Personnel Name: Shoaib An RN Position: [facility] RN Supv Member Role: Primary Care Nurse Name: Donovan DE LOS SANTOS, Vamshi Oshea Position: [facility] Physician - Primary Care Member Role: PCP Address: Address: [address] [place] [address]- Name: Luz Potter Position: [facility] Outreach Member Role: Lifetime Consulting Physician Name: Miki Rodriguez MD Position: [facility] Renal MD Member Role: Lifetime Consulting Physician Address: Address: [address] [facility], [place] [address]- Care Team Related Persons Name: BRANDON MTZ Address: home [address] [facility] [facility] [address] [place] [address] Name: BRANDON BARKER Address: home [address] [place] [address] Name: ROSALINDA BERTRAND
--- OUTSIDE RECORDS SUMMARY | 2023-10-11 08:09 | XMS_ITS | Continuity of Care Document ---
Author Organization [facility] Address [address] [place] [id number]- Care Team Providers Care Master Pilot Name Role Phone Vamshi Man MD Primary Care Physician [phone] [facility]): 08[facility]23 - 08/31/23 [facility]/[address] [address]- Allergies, Adverse Reactions, Alerts Substance Reaction Severity Status Other Food Allergy fresh peaches - itch y mouth, throat and lips swell Active Latex RASH Active penicillin 1 rash Resolved penicillins Active 1rash per mother as child. Did take a penicillin for treatment of H pylori per pt w/o problem. Immunizations Given and Recorded Vaccine Date Status Refusal Reason SARS-CoV-2(COVID-19)mRNA-LNP vac([id number]) 01/30/23 Given influenza virus vaccine, inactivated 01/05/23 [...] influenza virus vaccine, inactivated 03/19/06 Give n [id number] 12y+ bivalent booster vax 02/16/22 Given pneumococcal 20-valent conjugate vaccine 02/16/22 Given Influenza Virus Vaccine (oldterm) 9 01/27/22 Recor ded Influenza Virus Vaccine (oldterm) 01/26/21 Recorde d SARS-CoV-2 mRNA ([id number]) vax 11/11/21 Given SARS-CoV-2 (COVID-19) mRNA BNT-162b2 [...] Elissa Bertrand 13Result Comment: [11/27/2017] REceived at [facility] [place], [place]; ordered by Dr Michael Oliveira 14Location [...] 11 Refills, Maintenance, 02/08/23 10:21:00 EDT, Powder, [facility], replaces Flovent due to insurance coverage, 188, cm, 01/30/23 13:26:00 EDT, Height, 126, kg, 01/30/23 13:26:00 EDT,... Start Date: 02/08/23 Status: Ordered Aspirin Low Dose 81 mg oral delayed release tablet 1 tablet, By Mouth, Daily, # 90 tablet, 4 Refills, Maintenance, 03/01/23 17:49:00 EST, [facility], 188, cm, 01/30/23 13:26:00 EDT, Height, 126, kg, 01/30/23 13:26:00 EDT, Dry Weight Start Date: 03/01/23 Status: Ordered atorvastatin 40 mg oral tablet 1 tablet, By Mouth, Daily, # 90 tablet, 1 Refills, Maintenance, 07/25/23 20:12:00 EDT, [facility], 188, cm, 07/05/23 11:09:00 EDT, Height, [...] 2 Refills, Maintenance, 04/27/22 23:43:00 EST, Cream, [facility], 1 application Topically 2 times a day,Instr:apply to penile rash, 188, cm, 04/27/22 13:44:00 EST, Heigh... Start Date: 04/27/22 Status: Ordered diazepam 10 mg oral tablet See Instructions, PRN, 1 tablet By Mouth 1 hr before MRI, # 1 tablet, Refills 2, Tot. Refills 2, Maintenance, as needed for anxiety, 01/30/23 15:02:00 EDT, Instructions Replace Required Details, Route to Pharmacy Electronically, [facility],... Start Date: 01/30/23 Status: Ordered diclofenac 1% topical gel = 2 Gm, Topically, 4 times a day, PRN for pain, (uzbek) not to exceed: 16 gm/day/joint lower limb8 gm/day/joint of upper limb 32 gm/day may interchange for cream, # 100 Gm, 11 Refills, Maintenance, 04/15/22 13:02:00 EST, Gel, [facility]... Start Date: 04/15/22 Status: Ordered docusate [...] 16 Gm, 11 Refills, Maintenance, 07/09/23 11:37:00EDT, [place], [facility], Partial fill upon patient request if the prescription is for a schedule II opioid drug., 2 sprays Nares, Both 2 times... Start Date: 07/09/23 Status: Ordered Freestyle Tatyana [place] Freestyle Tatyana [place], See Instructions, # 1 each, Refills 0, [...] days., 08/11/23 11:15:00 EDT, Recently sent to [facility]... Start Date: 08/11/23 Status: [...] 11 Refills, Maintenance, 11/28/21 21:27:00 EDT, Solution, [facility], 188, cm, 11/22/21 16:37:00 EDT, Height, [...] Gm, 5 Refills, Maintenance, 12/22/21 7:28:00 EDT, [facility], same Rx was sent 11/11 w/ [...] 3 Refills, Maintenance, 05/07/23 16:31:00 EST, Tablet, [facility], 188, cm, 04/26/23 13:06:00 EST, Height, 126.09, kg, 04/26/23 13:06:00 EST, Dry Weight Start Date: 05/07/23 Status: Ordered metFORMIN 750 mg oral tablet, extended release 1 tablet = 750 mg, By Mouth, Daily, [replaces the metformin 500mg bid], # 30 tablet, 5 Refills, Maintenance, 05/15/23 8:10:00 EST, ER Tablet, [facility], Partial fill upon patient request if the prescription is for a schedule II opioid drug.... Start Date: 05/15/23 Status: Ordered methadone 10 mg oral tablet See Instructions, By mouth. 2 tab in AM, 1.5 midday, 2 in evening;for pain. IDC10: G90.5 CRPS. 28 day supply. [facility]., # 154 tablet, 0 Refills, Maintenance, pain, 10/09/23 21:08:00 EDT,[facility], May partial fill., 0... Start Date: 10/09/23 Status: Ordered methadone 10 mg oral tablet See Instructions, By mouth. 2 tab in AM, 1.5 midday, 2 in evening;for pain. IDC10: G90.5 CRPS. 28 day supply. [facility]., # 154 tablet, 0 Refills, Maintenance, pain, 09/11/23 21:08:00 EDT,[facility], May partial fill., 0... Start Date: 09/11/23 Status: Ordered methadone 10 mg oral tablet See Instructions, By mouth. 2 tab in AM, 1.5 midday, 2 in evening;for pain. IDC10: G90.5 CRPS. 28 day supply. [facility]., # 154 tablet, 0 Refills, Maintenance, pain, 08/14/23 21:08:00 EDT,[facility], August partial fill., 0... Start Date: 08/14/23 Status: Ordered methadone 10 mg oral tablet See Instructions, By mouth. 2 tab in AM, 1.5 midday, 2 in evening;for pain. IDC10: G90.5 CRPS. 28 day supply. [facility]., # 154 tablet, 0 Refills, Maintenance, pain, 04/24/23 22:44:00 EST,[facility], May partial fill., 188, cm,... Start Date: 04/24/23 Status: Ordered Mounjaro 10 mg/0.5 mL subcutaneous solution = 10 mg, Subcutaneous Infusion, Every 7 days, please interchange with other Rx for 7.5 mg if unavailable., # 4 each, 11 Refills, Maintenance, 07/26/23 14:10:00 EDT, [facility], Partial fillupon patient request if the prescription is for a s... Start Date: 07/26/23 Status: Ordered Mounjaro 7.5 mg/0.5 mL subcutaneous solution = 7.5 mg, Subcutaneous Injection, Every week, rotate injection sites, # 4 each, 5 Refills, Maintenance, 07/07/23 17:04:00 EDT, Solution, [facility], should still have a couple months [...] 1 Refills, Soft Stop, 02/16/22 23:38:00 EDT, [facility], 188, cm, 02/16/22 13:07:00 EDT, Height,122.63, kg, 11/22/21 16:37:00 EDT, Dry Weight Start Date: 02/16/22 Status: Ordered ondansetron 4 mg oral tablet Rx by Idalia Lori, # 60, Maintenance, 08/11/23 11:48:00 EDT Start Date: 08/11/23 Status: Ordered pantoprazole 40 mg oral delayed release tablet 0 Refills, Maintenance, 02/16/22 23:33:00 EDT Start Date: 02/16/22 Status: Ordered Pen [place], 31 G x 8 mm BD Ultra [...] 02/18/23 19:20:00 EST, Route to Pharmacy Electronically, [facility], 188, cm, 01/30/23 13:26:00 EDT, Height, [...] tablet, 5 Refills, Maintenance, 07/09/23 11:09:00 EDT, [facility], 30, 1 tablet By Mouth Daily, 188, cm, 07/05/23 11:09:00 EDT, Height, 126.09, kg, 04/26/23 13:06:00 EST, Dry Weight Start Date: 07/09/23 Status: Ordered tamsulosin 0.4 mg oral capsule 0.8 mg, 2, capsule, By Mouth, Daily, dose increase, # 180 capsule, Refills 11, Tot. Refills 11, Maintenance, 07/26/23 14:15:00 EDT, Route to Pharmacy Electronically, [facility], 188, cm, 07/26/23 13:30:00 EDT, Height, 121.81, kg, 07/26/23 13... Start Date: 07/26/23 Status: Ordered Test Strips See Instructions, # 100 each, Refills 5, Tot. Refills 5, Maintenance, Precision Ganga strips (for Freestyle Tatyana glucometer). Type 2 diabetes mellitus on insulin (E11, Z79.4). Test 2-4x/day if symptoms, or sensor concerns., 02/08/23 10:36:00 EDT, [facility]... Start Date: 02/08/23 Status: Ordered Test Strips [...] Intramuscular, Every 14 days, IM or subcutaneous. [facility]., # 2 mL, 5 Refills, Maintenance, 08/11/23 11:20:00 EDT, [facility], Last sent to [facility]. Sending now to [facility] due to pt request wale... Start Date: 08/11/23 Status: Ordered tiZANidine 4 mg oral tablet 4 mg, 1, tablet, By Mouth, 3 times a day, PRN, # 90 tablet, Refills 11, Tot. Refills 11, Maintenance, as needed for muscle spasm, 08/18/22 8:03:00 EDT, Route to Pharmacy Electronically, [facility], 188, cm, 07/18/22 14:01:00 EDT, Height, 122... Start Date: 08/18/22 Status: Ordered Toujeo Max SoloStar 300 units/mL subcutaneous solution = 70 units, Subcutaneous Injection, Daily, decrease frin 90u, # 12 mL, 11 Refills, Maintenance, 07/26/23 14:19:00 EDT, Solution, [facility], replaces Lantus due to insurance coverage, 188, cm, 07/26/23 13:30:00 EDT, Height, 121.81, kg, 07/25... Start Date: 07/26/23 Status: Ordered Tylenol Extra Strength 500 mg oral tablet 2 tablet = 1,000 mg, By Mouth, 3 times a day, # 30 tablet, 11 Refills, Maintenance, 03/24/21 21:00:00 EST, [facility], 188, cm, 03/22/21 14:17:00 EST, Height, 125.2, kg, 06/20/20 14:28:00 EST, Dry Weight Start Date: 03/24/21 Status: Ordered Vitamin D3 1000 intl units oral tablet 1 tablet, By Mouth, Daily, # 90 tablet, 4 Refills, Maintenance, 04/01/23 22:28:00 EST, [facility], 188, cm, 01/30/23 13:26:00 EDT, Height, [...] Team Personnel Name: Shoaib An RN Position: [facility] RN Supv Member Role: Primary Care Nurse Name: Donovan DE LOS SANTOS, Vamshi Oshea Position: [facility] Physician - Primary Care Member Role: PCP Address: Address: [address] [place] [address]- Name: Luz Potter Position: [facility] Outreach Member Role: Lifetime Consulting Physician Name: Miki Rodriguez MD Position: [facility] Renal MD Member Role: Lifetime Consulting Physician Address: Address: [address] [facility], [place] [address]- Care Team Related Persons Name: BRANDON MTZ Address: home [address] [facility] [address] [place] [address] Name: BRANDON BARKER Address: home [address] [place] [address] Name: ROSALINDA BERTRAND
--- OUTSIDE RECORDS SUMMARY | 2023-10-11 08:10 | XMS_ITS | Continuity of Care Document ---
Author Organization [facility] Address Unknown Care Team Providers Care Change Director Name Role Phone Vamshi Man MD Primary Care Physician [facility] Date(s): 11/19/20 - 12/19/20 [facility] Allergies, Adverse Reactions, Alerts Substance Reaction [...] Elissa Bertrand 12Result Comment: [11/27/2017] REceived at [facility] at [place], [place]; ordered by Dr Michael Oliveira 13Location [...] tablet, 5 Refills, Maintenance, 11/18/20 15:30:00 EDT, [facility], 188, cm, 09/22/20 8:33:00 EDT, Height, 125.2, kg, 06/20/20 14:28:00 EST, Dry Weight Start Date: 11/18/20 Status: Ordered AutoCPAP 9-18 with heated humidification AutoCPAP 9-18 with heated humidification, See Instructions, # 1 each, Refills 0, Tot. Refills 0, Maintenance, use overnight and naps from [facility], 11/04/18 12:28:22 EDT, Compound Start Date: [...] capsule, 3 Refills, Maintenance, 03/30/20 21:36:00 EST, [facility], 185, cm, 02/25/20 10:29:00 EST, Height, 126.81, kg, 02/25/20 10:29:00 EST, Dry Weight Start Date: 03/30/20 Status: Ordered clotrimazole 1% topical cream 1 application, Topically, 2 times a day, apply to penile rash, # 30 Gm, 2 Refills, Maintenance, 01/07/20 14:49:00 EDT, Cream, [facility], 1 application Topically 2 times a day,Instr:apply to penile rash, 185, cm, 01/07/20 13:55:00 EDT, [facility]... Start Date: 01/07/20 Status: Ordered Cozaar 100 mg oral tablet 1 tablet = 100 mg, By Mouth, Daily in AM, # 30 tablet, 11 Refills, Maintenance, 09/22/20 9:41:00 EDT, Tablet, [facility], duplicate rx. original sent 09/16/19. remaining [...] 06/25/20 15:39:00 EST, Route to Pharmacy Electronically, [facility], Partial f... Start Date: 06/25/20 Status: Ordered diclofenac 1% topical gel = 2 Gm, Topically, 4 times a day, PRN for pain, (greek) not to exceed: 16 gm/day/joint lower limb8 gm/day/joint of upper limb 32 gm/day may interchange for cream, # 100 Gm, 5 Refills, Maintenance,07/08/20 15:35:00 EDT, Gel, [facility] Start Date: 07/08/20 Status: Ordered docusate [...] 11 Refills, Maintenance, 02/15/20 21:05:00 EST, Solution, [facility], 185, cm, 01/07/20 13:55:00 EDT, Height, [...] mL, 3 Refills, Maintenance, 07/08/20 15:42:00 EDT, [facility], Duplicate rx-Original rx sent 06/22/20. Resent., 188, cm, 07/08/20 13:42:00 EDT, Height, 125.2, kg, 06/20/20 14:28:00 EST,... Start Date: 07/08/20 Status: Ordered latanoprost 0.005% ophthalmic solution 0 Refills, Maintenance, 05/11/20 16:57:00 EST Start Date: 05/11/20 Status: Ordered lidocaine 5% topical ointment See Instructions, 1 APPLICATION TOPICALLY 3 TIMES A DAY, # 70.88 Gm, 4 Refills, Acute, [facility], 14, 1 APPLICATION TOPICALLY 3 TIMES A DAY, 188, cm, 09/22/20 8:33:00 EDT, Height, 125.2, kg, 06/20/20 14:28:00 EST, Dry Weight Start Date: 11/08/20 Status: Ordered Lipitor 40 mg oral tablet 1 tablet = 40 mg, By Mouth, Daily, # 90 tablet, 3 Refills, Maintenance, 03/30/20 21:30:00 EST, [facility], duplicate rx. original sent 11/04/19. remaining refill sent., 185, cm, 02/25/20 10:29:00 EST, Height, 126.81, kg, 02/25/20 10:29:00 EST... Start Date: 03/30/20 Status: Ordered LORazepam 1 mg oral tablet See Instructions, PRN for anxiety, 2 tablets By Mouth 1 hours prior to MRI, # 2 tablet, 0 Refills, Acute 09/22/21 9:45:00 EDT, 09/22/20 9:43:00 EDT, Tablet, [facility], Partial fill upon patient request if [...] 3 Refills, Maintenance, 07/08/20 15:40:00 EDT, Tablet, [facility], Duplicate rx-Original rx sent06/22/20. Resent., 188, cm, 07/08/20 13:42:00 EDT, He... Start Date: 07/08/20 Status: Ordered methadone 10 mg oral tablet See Instructions, By mouth. 2 tab in AM, 1.5 midday, 2 in evening;for pain. IDC10: G90.5 CRPS. 28 day supply. [facility]., # 154 tablet, 0 Refills, Maintenance, pain, 11/09/20 9:00:00 EDT, [facility], May partial fill., 11/09/20,... Start Date: 11/09/20 Status: Ordered methadone 10 mg oral tablet See Instructions, By mouth. 2 tab in AM, 1.5 midday, 2 in evening;for pain. IDC10: G90.5 CRPS. 28 day supply. [facility]., # 154 tablet, 0 Refills, Maintenance, pain, 12/07/20 9:00:00 EDT, [facility], May partial fill., 12/07/20,... Start Date: [...] Start Date: 05/15/18 Status: Ordered nystatin-triamcinolone topical 271698 u/gm-0.1% ointment 1 applicator, Topically, 3 times a day, to foreskin area FOR 3 DAYS then switch to other antifungal, # 15 Gm, 1 Refills, Maintenance, 07/08/20 15:34:00 EDT, [facility], 1 applicator Topically 3 times a day,Instr:to [...] EDT Start Date: 08/20/18 Status: Ordered Pen [place], 31 G x 8 mm BD Ultra [...] 03/30/20 21:31:00 EST, Route to Pharmacy Electronically, [facility], 185, cm, 02/25/20 10:29:00 EST, Height, [...] solution 0.75 mL, Intramuscular, Every 14 days, [facility], # 5 mL, 5 Refills, Maintenance, 08/29/20 21:33:00 EDT, [facility], 188, cm, 07/08/20 13:42:00 EDT, Height, 125.2, kg, 06/20/20 14:28:00 EST, Dry Weight Start Date: 08/29/20 Status: Ordered tiZANidine 4 mg oral tablet 4 mg, 1, tablet, By Mouth, 3 times a day, PRN, # 90 tablet, Refills 11, Tot. Refills 11, Maintenance, as needed for muscle spasm, 07/08/20 15:40:00 EDT, Route to Pharmacy Electronically, [facility], 188, cm, 07/08/20 13:42:00 EDT, Height, [...] 2013 Active Cervical disc disorder with radiculopathy(Confirmed) 1 [...]
--- OUTSIDE RECORDS SUMMARY | 2023-10-11 08:10 | XMS_ITS | Continuity of Care Document ---
Author Organization [facility] Address [address] [place] [address]- Care Team Providers Care Sand Analyst Name Role Phone Vamshi Man MD Primary Care Physician [facility] Date(s): 06/14/20 - 07/14/20 [facility]/[address] [address]- Allergies, Adverse Reactions, Alerts Substance Reaction Severity [...] Bertrand 12Result Comment: [11/27/2017] REceived at [facility] [place], [place]; ordered by Dr Michael Oliveira 13Location [...] 03/30/20 21:31:00 EST, Route to Pharmacy Electronically, [facility], Mommy Nearestilcate rx. original sent 11/04/19. remaining refills sent., 185, cm, 02/25/20 10:29:00 EST, Hei... Start Date: 03/30/20 Status: Ordered AutoCPAP 9-18 with heated humidification AutoCPAP 9-18 with heated humidification, See Instructions, # 1 each, Refills 0, Tot. Refills 0, Maintenance, use overnight and naps from [facility], 11/04/18 12:28:22 EDT, Compound Start Date: [...] capsule, 3 Refills, Maintenance, 03/30/20 21:36:00 EST, [facility], 185, cm, 02/25/20 10:29:00 EST, Height, 126.81, kg, 02/25/20 10:29:00 EST, Dry Weight Start Date: 03/30/20 Status: Ordered clotrimazole 1% topical cream 1 application, Topically, 2 times a day, apply to penile rash, # 30 Gm, 2 Refills, Maintenance, 01/07/20 14:49:00 EDT, Cream, [facility], 1 application Topically 2 times a day,Instr:apply to penile rash, 185, cm, 01/07/20 13:55:00 EDT, [facility]... Start Date: 01/07/20 Status: Ordered Cozaar 100 mg oral tablet 1 tablet = 100 mg, By Mouth, Daily in AM, # 30 tablet, 5 Refills, Maintenance, 03/15/20 17:08:00 EST, Tablet, [facility], duplicate rx. original sent 09/16/19. remaining [...] 06/25/20 15:39:00 EST, Route to Pharmacy Electronically, [facility], Partial f... Start Date: 06/25/20 Status: Ordered diclofenac 1% topical gel = 2 Gm, Topically, 4 times a day, PRN for pain, (libyan) not to exceed: 16 gm/day/joint lower limb8 gm/day/joint of upper limb 32 gm/day may interchange for cream, # 100 Gm, 5 Refills, Maintenance,07/08/20 15:35:00 EDT, Gel, [facility] Start Date: 07/08/20 Status: Ordered docusate [...] 11 Refills, Maintenance, 02/15/20 21:05:00 EST, Solution, [facility], 185, cm, 01/07/20 13:55:00 EDT, Height, [...] mL, 3 Refills, Maintenance, 07/08/20 15:42:00 EDT, [facility], Duplicate rx-Original rx sent 06/22/20. Resent., 188, cm, 07/08/20 13:42:00 EDT, Height, 125.2, kg, 06/20/20 14:28:00 EST,... Start Date: 07/08/20 Status: Ordered latanoprost 0.005% ophthalmic solution 0 Refills, Maintenance, 05/11/20 16:57:00 EST Start Date: 05/11/20 Status: Ordered Lipitor 40 mg oral tablet 1 tablet = 40 mg, By Mouth, Daily, # 90 tablet, 3 Refills, Maintenance, 03/30/20 21:30:00 EST, [facility], duplicate rx. original sent 11/04/19. remaining [...] 3 Refills, Maintenance, 07/08/20 15:40:00 EDT, Tablet, [facility], Duplicate rx-Original rx sent06/22/20. Resent., 188, cm, 07/08/20 13:42:00 EDT, He... Start Date: 07/08/20 Status: Ordered methadone 10 mg oral tablet See Instructions, By mouth. 2 tab in AM, 1.5 midday, 2 in evening;for pain. IDC10: G90.5 CRPS. 28 day supply. [facility]., # 154 tablet, 0 Refills, Maintenance, pain, 07/20/20 15:43:00 EDT,[facility], May partial fill., 188, cm,... Start Date: 07/20/20 Status: Ordered methadone 10 mg oral tablet See Instructions, By mouth. 2 tab in AM, 1.5 midday, 2 in evening;for pain. IDC10: G90.5 CRPS. 28 day supply. [facility]., # 154 tablet, 0 Refills, Maintenance, pain, 08/17/20 15:47:00 EDT,[facility], May partial fill., 08/17/20... Start Date: [...] Start Date: 05/15/18 Status: Ordered nystatin-triamcinolone topical 029543 u/gm-0.1% ointment 1 applicator, Topically, 3 times a day, to foreskin area FOR 3 DAYS then switch to other antifungal, # 15 Gm, 1 Refills, Maintenance, 07/08/20 15:34:00 EDT, [facility], 1 applicator Topically 3 times a [...] EDT Start Date: 08/20/18 Status: Ordered Pen [place], 31 G x 8 mm BD Ultra [...] 03/30/20 21:31:00 EST, Route to Pharmacy Electronically, [facility], 185, cm, 02/25/20 10:29:00 EST, Height, [...] solution 0.75 mL, Intramuscular, Every 14 days, [facility], # 5 mL, 5 Refills, Maintenance, 01/11/20 21:30:00 EDT, [facility], 185, cm, 01/07/20 13:55:00 EDT, Height, 127.72, kg, 05/06/19 13:41:00 EST, Dry Weight Start Date: 01/11/20 Status: Ordered tiZANidine 4 mg oral tablet 4 mg, 1, tablet, By Mouth, 3 times a day, PRN, # 90 tablet, Refills 11, Tot. Refills 11, Maintenance, as needed for muscle spasm, 07/08/20 15:40:00 EDT, Route to Pharmacy Electronically, [facility], 188, cm, 07/08/20 13:42:00 EDT, Height, [...] ? chr regional pain syndrome 4s/p Modified Mcdonough procedure, repair of conjoined tendon of extensor [...]
--- OUTSIDE RECORDS SUMMARY | 2023-10-11 08:10 | XMS_ITS | Continuity of Care Document ---
Author Organization [facility] Address Unknown Care Team Providers Care Rotary Shear Worker Helper Name Role Phone Vamshi Man MD Primary Care Physician [phone] Encounter [facility] Date(s): 04/27/21 - 05/27/21 [facility] Allergies, Adverse Reactions, Alerts Substance Reaction Severity [...] Elissa Bertrand 12Result Comment: [11/27/2017] REceived at [facility] at [place], [place]; ordered by Dr Michael Oliveira 13Location [...] Daily, # 30 tablet, 5 Refills, Maintenance, 05/14/21 20:06:00 EST, [facility], 188, cm, 03/22/21 14:17:00 EST, Height, 125.2, kg, 06/20/20 14:28:00 EST, Dry Weight Start Date: 05/14/21 Status: Ordered atorvastatin 40 mg oral tablet 1 tablet, By Mouth, Daily, # 90 tablet, 1 Refills, [facility], 188, cm, 03/22/21 14:17:00EST, Height, 125.2, kg, 06/20/20 14:28:00 EST, Dry Weight Start Date: 04/13/21 Status: Ordered AutoCPAP 9-18 with heated humidification [...] 2 Refills, Maintenance, 01/07/20 14:49:00 EDT, Cream, [facility], 1 application Topically 2 times a day,Instr:apply to penile rash, 185, cm, 01/07/20 13:55:00 EDT, [facility]... Start Date: 01/07/20 Status: Ordered Cozaar 100 mg oral tablet 1 tablet = 100 mg, By Mouth, Daily in AM, # 30 tablet, 11 Refills, Maintenance, 09/22/20 9:41:00 EDT, Tablet, [facility], duplicate rx. original sent 09/16/19. remaining [...] 06/25/20 15:39:00 EST, Route to Pharmacy Electronically, [facility], Partial f... Start Date: 06/25/20 Status: Ordered diclofenac 1% topical gel = 2 Gm, Topically, 4 times a day, PRN for pain, (albanian) not to exceed: 16 gm/day/joint lower limb8 gm/day/joint of upper limb 32 gm/day may interchange for cream, # 100 Gm, 5 Refills, Maintenance,07/08/20 15:35:00 EDT, Gel, [facility] Start Date: 07/08/20 Status: Ordered docusate [...] mL, 11 Refills, Maintenance, 01/14/21 18:16:00 EDT, [facility], 188, cm, 12/22/20 9:45:00 EDT, Height, 125.2, kg, 06/20/20 14:28:00EST, Dry Weight Start Date: 01/14/21 Status: Ordered latanoprost 0.005% ophthalmic solution 0 Refills, Maintenance, 05/11/20 16:57:00 EST Start Date: 05/11/20 Status: Ordered lidocaine 5% topical ointment See Instructions, 1 APPLICATION TOPICALLY 3 TIMES A DAY, # 70.88 Gm, 4 Refills, Acute, [facility], 14, 1 APPLICATION TOPICALLY 3 TIMES A DAY, 188, cm, 09/22/20 8:33:00 EDT, Height, 125.2, kg, 06/20/20 14:28:00 EST, Dry Weight Start Date: 11/08/20 Status: Ordered LORazepam 1 mg oral tablet See Instructions, PRN for anxiety, 2 tablets By Mouth 1 hours prior to MRI, # 2 tablet, 1 Refills, Maintenance, 05/25/21 10:06:00 EST, Tablet, [facility], 188, cm, 05/25/21 9:26:00 EST, Height, 125.2, kg, 06/20/20 14:28:00 EST, Dry Weight Start Date: 05/25/21 Status: Ordered LUBRIC TEARS CALE 0.4-0.3% Milliliters INSTILL 1 DROP FOUR TIMES DAILY EACH EYE Start Date: 05/11/20 Status: Ordered metFORMIN 500 mg oral tablet 1 tablet = 500 mg, By Mouth, 2 times a day, with meals. Replaces metformin ER, # 180 tablet, 3 Refills, Maintenance, 07/08/20 15:40:00 EDT, Tablet, [facility], Duplicate rx-Original rx sent06/22/20. Resent., 188, cm, 07/08/20 13:42:00 EDT, He... Start Date: 07/08/20 Status: Ordered methadone 10 mg oral tablet See Instructions, By mouth. 2 tab in AM, 1.5 midday, 2 in evening;for pain. IDC10: G90.5 CRPS. 28 day supply. [facility]., # 154 tablet, 0 Refills, Maintenance, pain, 05/24/21 22:11:00 EST,[facility], August partial fill., 05/24/21... Start Date: 05/24/21 Status: Ordered methadone 10 mg oral tablet See Instructions, By mouth. 2 tab in AM, 1.5 midday, 2 in evening;for pain. IDC10: G90.5 CRPS. 28 day supply. [facility]., # 154 tablet, 0 Refills, Maintenance, pain, 06/21/21 22:11:00 EST,[facility], May partial fill., 06/21/21... Start Date: 06/21/21 Status: Ordered Metoclopramide = 10 mg, By Mouth, 3 times a day before meals and bedtime, 0 Refills, Maintenance, 08/20/18 13:55:26 EDT Start Date: 08/20/18 Status: Ordered multivitamin Multiple Vitamins oral tablet 1 tablet, By Mouth, Daily, B complex multivitamin, # 30 tablet, 11 Refills, Maintenance, 12/22/20 10:52:00 EDT, [facility], Partial fill upon patient request if the prescription is for a schedule II opioid drug., 1 tablet By Mouth Daily,Inst... Start Date: 12/22/20 Status: Ordered Narcan 4 mg/0.1 mL nasal spray = 4 mg, Nares, Both, Once, may repeat every 2 to 3 minutes until patient responds, # 2 each, 0 Refills, Soft Stop, 05/25/21 10:17:00 EST, [facility], 188, cm, 05/25/21 9:26:00 EST, Height, 125.2, kg, 06/20/20 14:28:00 EST, Dry Weight Start Date: 05/25/21 Status: Ordered nystatin-triamcinolone topical 463539 u/gm-0.1% ointment 1 applicator, Topically, 3 times a day, to foreskin area FOR 3 DAYS then switch to other antifungal, # 15 Gm, 1 Refills, Maintenance, 05/25/21 10:20:00 EST, [facility], 1 applicator Topically 3 times a [...] EDT Start Date: 08/20/18 Status: Ordered Pen [place], 31 G x 8 mm BD Ultra Fine III See Instructions, # 100 each, Refills 3, Tot. Refills 3, Maintenance, use bid Type 11 Diabetes Mellitus, 03/29/21 13:09:00 EST, Compound, 188, cm, 03/22/21 14:17:00 EST, Height, 125.2, kg, 06/20/20 14:28:00 EST, Dry Weight Start Date: 03/29/21 Stop Date: 07/27/21 Status: Ordered prazosin 1 mg oral capsule TAKE 1 CAPSULE BY MOUTH AT BEDTIME Start Date: 05/11/20 Status: Ordered semaglutide 2 mg/1.5 mL (0.25 mg or 0.5 mg dose) subcutaneous solution = 0.5 mg, Subcutaneous Infusion, Every 7 days, replaces dulaglutide. rotate injection sites, # 1.5 mL, 11 Refills, Maintenance, 05/25/21 10:14:00 EST, [facility], Partial fill upon patient request if the prescription is for a schedule II op... Start Date: 05/25/21 Status: Ordered Singulair 10 mg oral tablet 10 mg, 1, tablet, By Mouth, Daily, # 90 tablet, Refills 3, Tot. Refills 3, Maintenance, 03/30/20 21:31:00 EST, Route to Pharmacy Electronically, [facility], 185, cm, 02/25/20 10:29:00 EST, Height, [...] solution 0.75 mL, Intramuscular, Every 14 days, [facility], # 5 mL, 5 Refills, Maintenance, 03/25/21 1:06:00 EST, [facility], 188, cm, 03/22/21 14:17:00 EST, Height, 125.2, kg, 06/20/20 14:28:00 EST, Dry Weight Start Date: 03/25/21 Status: Ordered tiZANidine 4 mg oral tablet 4 mg, 1, tablet, By Mouth, 3 times a day, PRN, # 90 tablet, Refills 11, Tot. Refills 11, Maintenance, as needed for muscle spasm, 07/08/20 15:40:00 EDT, Route to Pharmacy Electronically, [facility], 188, cm, 07/08/20 13:42:00 EDT, Height, 12... Start Date: 07/08/20 Status: Ordered traZODone 100 mg oral tablet TAKE ONE TO TWO TABLETS BY MOUTH AT BEDTIME NEEDED S. McAnulty Start Date: 05/11/20 Status: Ordered Tylenol Extra Strength 500 mg oral tablet 2 tablet = 1,000 mg, By Mouth, 3 times a day, # 30 tablet, 11 Refills, Maintenance, 03/24/21 21:00:00 EST, [facility], 188, cm, 03/22/21 14:17:00 EST, Height, 125.2, kg, 06/20/20 14:28:00 EST, Dry Weight Start Date: 03/24/21 Status: Ordered Vitamin D3 1000 intl units oral tablet 1 tablet, By Mouth, Daily, # 30 tablet, 5 Refills, [facility], 188, cm, 03/22/21 14:17:00EST, Height, 125.2, kg, 06/20/20 14:28:00 EST, Dry Weight Start Date: 05/04/21 Status: Ordered Problem List Condition Effective Dates [...]
--- OUTSIDE RECORDS SUMMARY | 2023-10-11 08:10 | XMS_ITS | Continuity of Care Document ---
Author Organization [facility] Address Unknown Care Team Providers Care Crepe Box Tender Name Role Phone Vamshi Man MD Primary Care Phys[facility] Date[facility]): 08/25/21 - 09/24/21 [facility] Allergies, Adverse Reactions, Alerts [...] Elissa Bertrand 12Result Comment: [11/27/2017] REceived at [facility] at [place], [place]; ordered by Dr Michael Oliveira 13Location [...] into anterior thigh or lateral gluteal muscle, 09/15/21 14:37:00 EDT, 22G preferred w... Start Date: 09/15/21 Status: Ordered 22G or 23G 1.5 inch hypodermic needle 22G or 23G 1.5 inch hypodermic needle, See Instructions, # 4 each, Refills 1, Tot. Refills 1, Maintenance, for testosterone. Use 21G, 22G or 23G needle for injection into anterior thigh or lateral gluteal muscle, 07/27/21 9:46:00 EDT, 22G preferred wh... Start Date: 07/27/21 Status: Ordered 3 mL syringe with 0.5-1.5 18G-21G needle 3 mL syringe with 0.5-1.5 18G-21G needle, See Instructions, # 4 each, Refills 1, Tot. Refills 1, Maintenance, for testosterone, withdrawing from vial., 09/15/21 14:37:00 EDT, 18G preferred if available, Supply, 188, cm, 09/15/21 12:49:00 EDT, Height,... Start Date: 09/15/21 Status: Ordered 3 mL syringe with 0.5-1.5 18G-21G needle 3 mL syringe with 0.5-1.5 18G-21G needle, See Instructions, # 4 each, Refills 1, Tot. Refills 1, Maintenance, for testosterone, withdrawing from vial., 07/27/21 9:46:00 EDT, 18G preferred if available, Supply, 188, cm, 07/27/21 8:34:00 EDT, Height, 1... Start Date: 07/27/21 Status: Ordered albuterol CFC free 90 mcg/inh [...] tablet, 5 Refills, Maintenance, 05/14/21 20:06:00 EST, [facility], 188, cm, 03/22/21 14:17:00 EST, Height, 125.2, kg, 06/20/20 14:28:00 EST, Dry Weight Start Date: 05/14/21 Status: Ordered atorvastatin 40 mg oral tablet 1 tablet, By Mouth, Daily, # 90 tablet, 1 Refills, [facility], 188, cm, 03/22/21 14:17:00EST, Height, 125.2, kg, 06/20/20 14:28:00 EST, Dry Weight Start Date: 04/13/21 Status: Ordered AutoCPAP 9-18 with heated humidification AutoCPAP 9-18 with heated humidification, See Instructions, # 1 each, Refills 0, Tot. Refills 0, Maintenance, use overnight and naps from [facility], 11/04/18 12:28:22 EDT, Compound Start Date: 11/04/18 [...] 2 Refills, Maintenance, 09/15/21 14:49:00 EDT, Cream, [facility], 1 application Topically 2 times a day,Instr:apply to penile rash, 188, cm, 09/15/21 12:49:00 EDT, Heigh... Start Date: 09/15/21 Status: Ordered Cozaar 100 mg oral tablet 1 tablet = 100 mg, By Mouth, Daily in AM, # 30 tablet, 11 Refills, Maintenance, 09/22/20 9:41:00 EDT, Tablet, [facility], duplicate rx. original sent 09/16/19. remaining [...] 06/25/20 15:39:00 EST, Route to Pharmacy Electronically, [facility], Partial f... Start Date: 06/25/20 Status: Ordered diclofenac 1% topical gel = 2 Gm, Topically, 4 times a day, PRN for pain, (amharic) not to exceed: 16 gm/day/joint lower limb8 gm/day/joint of upper limb 32 gm/day may interchange for cream, # 100 Gm, 5 Refills, Maintenance,07/08/20 15:35:00 EDT, Gel, [facility] Start Date: 07/08/20 Status: Ordered docusate [...] IEN QD Start Date: 08/20/18 Status: Ordered gabapentin 300 mg oral capsule 300 mg, 1, capsule, By Mouth, Daily at bedtime, to help with new pain in back/hip, # 30 capsule, Refills 0, Tot. Refills 0, Maintenance, 08/22/21 16:07:00 EDT, Route to Pharmacy Electronically, [facility], Partial fill upon patient request i... Start Date: 08/22/21 Status: Ordered gabapentin 600 mg oral tablet 1 tablet = 600 mg, By Mouth, Daily at bedtime, for sciatic pain, # 25 tablet, 1 Refills, Maintenance, 09/15/21 14:34:00 EDT, [facility], Partial fill upon patient request if the prescription is for a schedule II opioid drug., 188, cm, ... Start Date: 09/15/21 Status: Ordered Glucose Monitor See Instructions, PRN, [...] tablet, 11 Refills, Maintenance, 07/25/21 20:18:00 EDT, [facility], 188, cm, 06/28/21 16:20:00 EDT, Height, [...] mL, 11 Refills, Maintenance, 01/14/21 18:16:00 EDT, [facility], 188, cm, 12/22/20 9:45:00 EDT, Height, 125.2, kg, 06/20/20 14:28:00EST, Dry Weight Start Date: 01/14/21 Status: Ordered latanoprost 0.005% ophthalmic solution 0 Refills, Maintenance, 05/11/20 16:57:00 EST Start Date: 05/11/20 Status: Ordered lidocaine 5% topical ointment See Instructions, PRN Pain , Moderate, 1 APPLICATION TOPICALLY 3 TIMES A DAY, # 50 Gm, 5 Refills, Maintenance, 08/29/21 22:40:00 EDT, [facility], 1 APPLICATION TOPICALLY 3 TIMES A DAY,PRN:Pain , Moderate, 188, cm, 08/26/21 9:59:00 EDT, [facility]... Start Date: 08/29/21 Status: Ordered LORazepam 1 mg oral tablet See Instructions, PRN for anxiety, 2 tablets By Mouth 1 hours prior to MRI, # 2 tablet, 1 Refills, Maintenance, 05/25/21 10:06:00 EST, Tablet, [facility], 188, cm, 05/25/21 9:26:00 EST, Height, 125.2, kg, 06/20/20 14:28:00 EST, Dry Weight Start Date: 05/25/21 Status: Ordered LUBRIC TEARS CALE 0.4-0.3% [place] INSTILL 1 DROP FOUR TIMES DAILY EACH EYE Start Date: 05/11/20 Status: Ordered meloxicam 7.5 mg oral tablet 1 tablet = 7.5 mg, By Mouth, Daily, PRN Pain , Moderate, take in am with food, # 30 tablet, 1 Refills, Maintenance, 09/15/21 14:35:00 EDT, Tablet, [facility], Partial fill upon patient request if the prescription is for a schedule II opioid... Start Date: 09/15/21 Status: Ordered metFORMIN 500 mg oral tablet 1 tablet, By Mouth, 2 times a day, # 60 tablet, 5 Refills, [facility], 188, cm, 06/28/21 16:20:00 EDT, Height, 125.2, kg, 06/20/20 14:28:00 EST, Dry Weight Start Date: 07/08/21 Status: Ordered methadone 10 mg oral tablet See Instructions, By mouth. 2 tab in AM, 1.5 midday, 2 in evening;for pain. IDC10: G90.5 CRPS. 28 day supply. [facility]., # 154 tablet, 0 Refills, Maintenance, pain, 09/13/21 22:42:00 EDT,[facility], May partial fill., 09/13/21... Start Date: 09/13/21 Status: Ordered methadone 10 mg oral tablet See Instructions, By mouth. 2 tab in AM, 1.5 midday, 2 in evening;for pain. IDC10: G90.5 CRPS. 28 day supply. [facility]., # 154 tablet, 0 Refills, Maintenance, pain, 10/11/21 14:47:00 EDT,[facility], May partial fill., 10/11/21... Start Date: 10/11/21 Status: Ordered Metoclopramide = 10 mg, By Mouth, 3 times a day before meals and bedtime, 0 Refills, Maintenance, 08/20/18 13:55:26 EDT Start Date: 08/20/18 Status: Ordered multivitamin Multiple Vitamins oral tablet 1 tablet, By Mouth, Daily, B complex multivitamin, # 30 tablet, 11 Refills, Maintenance, 12/22/20 10:52:00 EDT, [facility], Partial fill upon patient request if the prescription is for a schedule II opioid drug., 1 tablet By Mouth Daily,Inst... Start Date: 12/22/20 Status: Ordered Narcan 4 mg/0.1 mL nasal spray = 4 mg, Nares, Both, Once, may repeat every 2 to 3 minutes until patient responds, # 2 each, 0 Refills, Soft Stop, 05/25/21 10:17:00 EST, [facility], 188, cm, 05/25/21 9:26:00 EST, Height, 125.2, kg, 06/20/20 14:28:00 EST, Dry Weight Start Date: 05/25/21 Status: Ordered nystatin-triamcinolone topical 130244 u/gm-0.1% ointment 1 applicator, Topically, 3 times a day, to foreskin area FOR 3 DAYS then switch to other antifungal, # 15 Gm, 1 Refills, Maintenance, 05/25/21 10:20:00 EST, [facility], 1 applicator Topically 3 times a [...] [place] Start Date: 08/20/18 Status: Ordered Pen [place], 31 G x 8 mm BD Ultra [...] each, 11 Refills, Maintenance, 09/15/21 14:29:00 EDT, [facility], Partial fill upon patient request if the prescription is for a schedule II opioid drug., 188, cm, 09/15/21 12:4... Start Date: 09/15/21 Status: Ordered Singulair 10 mg oral tablet 10 mg, 1, tablet, By Mouth, Daily, # 90 tablet, Refills 3, Tot. Refills 3, Maintenance, 03/30/20 21:31:00 EST, Route to Pharmacy Electronically, [facility], 185, cm, 02/25/20 10:29:00 EST, Height, 126.81, kg, 02/25/20 10:29:00 EST, Dry Weight Start Date: 03/30/20 Status: Ordered sucralfate 1 gm oral tablet TAKE 1 TABLET BY MOUTH TWICE DAILY Start Date: 05/11/20 Status: Ordered Test Strips See Instructions, # 100 each, Refills 11, Tot. Refills 11, Maintenance, Glucometer test strips. Dx Diabetes M-2 on insulin (ICD-10: E11, Z79. 4). 3x per day, 08/15/21 14:12:00 EDT, Compound, 188, cm,07/27/21 8:34:00 EDT, Height, 125.2, kg, 06/20/20... Start Date: 08/15/21 Status: Ordered testosterone enanthate 200 mg/mL intramuscular solution 0.75 mL, Intramuscular, Every 14 days, [facility], # 5 mL, 5 Refills, Maintenance, 07/27/21 9:48:00 EDT, [facility], 188, cm, 07/27/21 8:34:00 EDT, Height, 125.2, kg, 06/20/20 14:28:00 EST, Dry Weight Start Date: 07/27/21 Status: Ordered tiZANidine 4 mg oral tablet 4 mg, 1, tablet, By Mouth, 3 times a day, PRN, # 90 tablet, Refills 11, Tot. Refills 11, Maintenance, as needed for muscle spasm, 08/12/21 11:09:00 EDT, Route to Pharmacy Electronically, [facility], 188, cm, 07/27/21 8:34:00 EDT, Height, 125... Start Date: 08/12/21 Status: Ordered traZODone 100 mg oral tablet TAKE ONE TO TWO TABLETS BY MOUTH AT BEDTIME NEEDED S. McAnulty Start Date: 05/11/20 Status: Ordered Tylenol Extra Strength 500 mg oral tablet 2 tablet = 1,000 mg, By Mouth, 3 times a day, # 30 tablet, 11 Refills, Maintenance, 03/24/21 21:00:00 EST, [facility], 188, cm, 03/22/21 14:17:00 EST, Height, 125.2, kg, 06/20/20 14:28:00 EST, Dry Weight Start Date: 03/24/21 Status: Ordered Vitamin D3 1000 intl units oral tablet 1 tablet, By Mouth, Daily, # 30 tablet, 5 Refills, [facility], 188, cm, 03/22/21 14:17:00EST, Height, 125.2, [...]
--- OUTSIDE RECORDS SUMMARY | 2023-10-11 08:10 | XMS_ITS | Continuity of Care Document ---
Author Organization [facility] Address [address] [place] [address]- Care Team Providers Care Patient Ambassador Name Role Phone Vamshi Man MD Primary Care Physician [facility] Date[facility]): 12/01[facility]19 - 12/31/19 [facility]/[address] [address]- [facility] Allergies, Adverse Reactions, Alerts Substance Reaction Severity [...] Elissa Bertrand 11Result Comment: [11/27/2017] REceived at [facility] at [place], [place]; ordered by Dr Michael Oliveira 12Location [...] 11/04/19 15:57:00 EDT, Route to Pharmacy Electronically, [facility], 185, cm, 06/24/19 13:00:00 EDT, Height, [...] 1 Refills, Maintenance, 06/24/19 15:23:00 EDT, Cream, [facility], 1 application Topically 2 times a day,Instr:apply to penile rash, 185, cm, 06/24/19 13:00:00 EDT, [facility]... Start Date: 06/24/19 Status: Ordered Cozaar 100 mg oral tablet 1 tablet = 100 mg, By Mouth, Daily in AM, # 30 tablet, 11 Refills, Maintenance, 09/16/19 15:00:00 EDT, Tablet, [facility], 185, cm, 06/24/19 13:00:00 EDT, Height, 127.72, kg, 05/06/19 13:41:00 EST, Dry Weight Start Date: 09/16/19 Status: Ordered diclofenac 1% topical gel = 2 Gm, Topically, 4 times a day, PRN for pain, (niuean) not to exceed: 16 gm/day/joint lower limb8 gm/day/joint of upper limb 32 gm/day, # 100 Gm, 1 Refills, Maintenance, 10/27/19 10:15:00 EDT, Gel, [facility], 185, cm, 06/24/19 13:00:... Start Date: [...] 1 Refills, Maintenance, 12/02/19 10:07:00 EDT, Solution, [facility], duplicate rx. remaining refills sent. original [...] tablet, 1 Refills, Maintenance, 04/15/19 5:02:00 EST, [facility], 185, cm, 02/12/19 9:28:00 EDT, Height, 123.7, kg, 08/22/18 12:59:00 EDT, Dry Weight Start Date: 04/15/19 Status: Ordered Lantus Solostar Pen 100 units/mL subcutaneous solution = 90 units, Subcutaneous Infusion, Daily at bedtime, # 15 mL, 5 Refills, Maintenance, 10/09/19 15:22:00 EDT, [facility], duplicate rx. original rx sent 03/18/19. remaining refills sent, 185,cm, 06/24/19 13:00:00 EDT, Height, 127.72, kg, 04/17... Start Date: 10/09/19 Status: Ordered latanoprost 0.005% ophthalmic solution 1 drops, Eyes, Both, Daily at bedtime, cover gap- Coffee Break Attendant Dr Broussard, # 2.5 mL, 1 Refills, Maintenance, 02/25/14 10:47:09, Ophth Solution, 1 drops Eyes, Both Daily at bedtime,Instr:cover gap-Coffee Break Attendant Dr Broussard Start Date: 02/25/14 Status: Ordered lidocaine 4% topical cream 1 application, Topically, 3 times a day, may interchange 3-5% cream or ointment or 2% gel per insurance coverage., # 60 Gm, 5 Refills, Maintenance, 10/28/19 20:11:00 EDT, [facility], 1 application Topically 3 times a day,Instr:august interchang... Start Date: 10/28/19 Status: Ordered Linzess 145 mcg oral capsule TAKE 1 CAPSULE BY MOUTH 30 MINUTES BEFORE MEAL (constipation) Start Date: 03/31/17 Status: Ordered Lipitor 40 mg oral tablet 1 tablet = 40 mg, By Mouth, Daily, # 30 tablet, 5 Refills, Maintenance, 11/04/19 15:57:00 EDT, [facility], 185, cm, 06/24/19 13:00:00 EDT, Height, 127.72, kg, 05/06/19 13:41:00 EST, Dry Weight Start Date: 11/04/19 Status: Ordered metFORMIN 500 mg oral tablet 1 tablet = 500 mg, By Mouth, 2 times a day, with meals. Replaces metformin ER, # 60 tablet, 11 Refills, Maintenance, 06/24/19 15:02:00 EDT, Tablet, [facility], 185, cm, 06/24/19 13:00:00 EDT, Height, [...] pain. IDC10: G90.5 CRPS. 28 day supply. [facility]., # 154 tablet, 0 Refills, Maintenance, pain, 11/10/19 12:54:00 EDT,[facility], August partial fill., 11/10/19... Start Date: 11/10/19 Status: Ordered methadone 10 mg oral tablet See Instructions, By mouth. 2 tab in AM, 1.5 midday, 2 in evening;for pain. IDC10: G90.5 CRPS. 28 day supply. [facility]., # 154 tablet, 0 Refills, Maintenance, pain, 12/08/19 12:56:00 EDT,[facility], August partial fill., 12/08/19... Start Date: [...] Start Date: 05/15/18 Status: Ordered nystatin topical 075724 u/gm cream 1 application, Topically, 2 times a day, for fungal rash, # 30 Gm, 0 Refills, Maintenance, 09/15/2014:01:00 EDT, Cream, [facility], 1 application Topically 2 times a day,x14 days,Instr:forfungal rash, 185, cm, 06/24/19 13:00:00 EDT, Height... Start Date: 09/16/19 Stop Date: 09/30/19 Status: Ordered nystatin-triamcinolone topical 175722 u/gm-0.1% ointment 1 applicator, Topically, 3 times [...] EDT Start Date: 08/20/18 Status: Ordered Pen [place], 31 G x 8 mm BD Ultra [...] 11/29/18 11:27:43 EDT, Route to Pharmacy Electronically, [id number], [facility] Start Date: 11/29/18 Status: Ordered Testosterone Cypionate = 0.75 mg, Intramuscular, Every 14 days, Adm. today to RG Lot [id number] exp: 02/2020, 0 Refills, Maintenance, 11/14/18 14:06:08 EDT Start Date: 11/14/18 Status: Ordered testosterone enanthate 200 mg/mL intramuscular solution 0.75 mL, Intramuscular, Every 14 days, [facility], # 5 mL, 5 Refills, Maintenance, 05/06/19 15:06:00 EST, [facility], 185, cm, 05/06/19 13:41:00 EST, Height, 127.72, kg, 05/06/19 13:41:00 EST, Dry Weight Start Date: 05/06/19 Status: Ordered tiZANidine 4 mg oral tablet 4 mg, 1, tablet, By Mouth, 3 times a day, PRN, # 90 tablet, Refills 11, Tot. Refills 11, Maintenance, as needed for muscle spasm, 02/04/19 21:34:51 EDT, Route to Pharmacy Electronically, NCPDP_[id number], [facility] Start Date: 02/04/19 Status: Ordered Problem [...]
--- OUTSIDE RECORDS SUMMARY | 2023-10-11 08:10 | XMS_ITS | Continuity of Care Document ---
Author Organization [facility] Address [address] [place] [address]- Care Team Providers Care [employer] Clerk Name Role Phone Vamshi Man MD Primary Care Physician [facility] Date[facility]s): 05/05/20 - 06/04/20 [facility]/[address] [address]- Allergies, Adverse Reactions, Alerts Substance Reaction Severity [...] influenza virus vaccine, inactivated 3 01/01/14 Gi darianne influenza virus vaccine, inactivated 4 01/15/13 Gi [...] Elissa Bertrand 11Result Comment: [11/27/2017] REceived at [facility] at [place], [place]; ordered by Dr Michael Oliveira 12Location [...] 03/30/20 21:31:00 EST, Route to Pharmacy Electronically, [facility], EpiEP rx. original sent 11/04/19. remaining refills sent., 185, cm, 02/25/20 10:29:00 EST, Hei... Start Date: 03/30/20 Status: Ordered AutoCPAP 9-18 with heated humidification AutoCPAP 9-18 with heated humidification, See Instructions, # 1 each, Refills 0, Tot. Refills 0, Maintenance, use overnight and naps from [facility], 11/04/18 12:28:22 EDT, Compound Start Date: 11/04/18 [...] capsule, 3 Refills, Maintenance, 03/30/20 21:36:00 EST, [facility], 185, cm, 02/25/20 10:29:00 EST, Height, 126.81, kg, 02/25/20 10:29:00 EST, Dry Weight Start Date: 03/30/20 Status: Ordered clotrimazole 1% topical cream 1 application, Topically, 2 times a day, apply to penile rash, # 30 Gm, 2 Refills, Maintenance, 01/07/20 14:49:00 EDT, Cream, [facility], 1 application Topically 2 times a day,Instr:apply to penile rash, 185, cm, 01/07/20 13:55:00 EDT, [facility]... Start Date: 01/07/20 Status: Ordered Cozaar 100 mg oral tablet 1 tablet = 100 mg, By Mouth, Daily in AM, # 30 tablet, 5 Refills, Maintenance, 03/15/20 17:08:00 EST, Tablet, [facility], duplicate rx. original sent 09/16/19. remaining refills sent., 185, cm, 02/25/20 10:29:00 EST, Height, 126.81, kg, ... Start Date: 03/15/20 Status: Ordered diclofenac 1% topical gel = 2 Gm, Topically, 4 times a day, PRN for pain, (welsh) not to exceed: 16 gm/day/joint lower limb8 gm/day/joint of upper limb 32 gm/day, # 100 Gm, 1 Refills, Maintenance, 10/27/19 10:15:00 EDT, Gel, [facility], 185, cm, 06/24/19 13:00:... Start Date: [...] 11 Refills, Maintenance, 02/15/20 21:05:00 EST, Solution, [facility], 185, cm, 01/07/20 13:55:00 EDT, Height, [...] mL, 2 Refills, Maintenance, 05/06/20 9:55:00 EST, [facility], 185, cm, 02/25/20 10:29:00 EST, Height, [...] Gm, 5 Refills, Maintenance, 10/28/19 20:11:00 EDT, [facility], 1 application Topically 3 times a day,Instr:august interchang... Start Date: 10/28/19 Status: Ordered Lipitor 40 mg oral tablet 1 tablet = 40 mg, By Mouth, Daily, # 90 tablet, 3 Refills, Maintenance, 03/30/20 21:30:00 EST, [facility], duplicate rx. original sent 11/04/19. remaining [...] 11 Refills, Maintenance, 06/24/19 15:02:00 EDT, Tablet, [facility], 185, cm, 06/24/19 13:00:00 EDT, Height, 127.72, kg, 05/06/19 13:41:00 EST, Dry We... Start Date: 06/24/19 Status: Ordered methadone 10 mg oral tablet See Instructions, By mouth. 2 tab in AM, 1.5 midday, 2 in evening;for pain. IDC10: G90.5 CRPS. 28 day supply. [facility]., # 154 tablet, 0 Refills, Maintenance, pain, 03/30/20 23:51:00 EST,[facility], May partial fill., 03/30/20... Start Date: 03/30/20 Status: Ordered methadone 10 mg oral tablet See Instructions, By mouth. 2 tab in AM, 1.5 midday, 2 in evening;for pain. IDC10: G90.5 CRPS. 28 day supply. [facility]., # 154 tablet, 0 Refills, Maintenance, pain, 05/24/20 16:29:00 EST,[facility], May partial fill., 05/24/20... Start Date: [...] Start Date: 05/15/18 Status: Ordered nystatin-triamcinolone topical 267357 u/gm-0.1% ointment 1 applicator, Topically, 3 times a day, to foreskin area FOR 3 DAYS then switch to other antifungal, # 15 Gm, 1 Refills, Maintenance, 01/07/20 14:48:00 EDT, [facility], 1 applicator Topically 3 times a [...] EDT Start Date: 08/20/18 Status: Ordered Pen [place], 31 G x 8 mm BD Ultra [...] 03/30/20 21:31:00 EST, Route to Pharmacy Electronically, [facility], 185, cm, 02/25/20 10:29:00 EST, Height, [...] solution 0.75 mL, Intramuscular, Every 14 days, [facility], # 5 mL, 5 Refills, Maintenance, 01/11/20 21:30:00 EDT, [facility], 185, cm, 01/07/20 13:55:00 EDT, Height, 127.72, kg, 05/06/19 13:41:00 EST, Dry Weight Start Date: 01/11/20 Status: Ordered tiZANidine 4 mg oral tablet 4 mg, 1, tablet, By Mouth, 3 times a day, PRN, # 90 tablet, Refills 11, Tot. Refills 11, Maintenance, as needed for muscle spasm, 05/11/20 18:47:00 EST, Route to Pharmacy Electronically, [facility], 185, cm, 02/25/20 10:29:00 EST, Height, [...]
--- OUTSIDE RECORDS SUMMARY | 2023-10-11 08:10 | XMS_ITS | Continuity of Care Document ---
Author Organization [facility] Address [address] [place] [address]- Care Team Providers Care Chisel Worker Name Role Phone Vamshi Man MD Primary Care Physician [phone] Encounter [facility] Date(s): 05/06/23 - 06/05/23 [facility] [address]- [place] Allergies, Adverse Reactions, Alerts Substance Reaction Severity Status penicillin 1 rash Resolved penicillins Active Latex RASH Active Other Food Allergy fresh peaches - itch y mouth, throat and lips swell Active 1rash per mother as child. Did take a penicillin for treatment of H pylori per pt w/o problem. Immunizations Given and Recorded Vaccine Date Status Refusal Reason SARS-CoV-2(COVID-19)mRNA-LNP vac([id number]) 01/30/23 Given influenza virus vaccine, inactivated 01/05/23 [...] influenza virus vaccine, inactivated 03/19/06 Give n [id number] 12y+ bivalent booster vax 02/16/22 Given pneumococcal 20-valent conjugate vaccine 02/16/22 Given Influenza Virus Vaccine (oldterm) 9 01/27/22 Recor ded Influenza Virus Vaccine (oldterm) 01/26/21 Recorde d SARS-CoV-2 mRNA ([id number]) vax 11/11/21 Given SARS-CoV-2 (COVID-19) mRNA BNT-162b2 [...] Elissa Bertrand 13Result Comment: [11/27/2017] REceived at [facility] [place], [place]; ordered by Dr Michael Oliveira 14Location [...] 11 Refills, Maintenance, 02/08/23 10:21:00 EDT, Powder, [facility], replaces Flovent due to insurance coverage, 188, cm, 01/30/23 13:26:00 EDT, Height, 126, kg, 01/30/23 13:26:00 EDT,... Start Date: 02/08/23 Status: Ordered Aspirin Low Dose 81 mg oral delayed release tablet 1 tablet, By Mouth, Daily, # 90 tablet, 4 Refills, Maintenance, 03/01/23 17:49:00 EST, [facility], 188, cm, 01/30/23 13:26:00 EDT, Height, 126, kg, 01/30/23 13:26:00 EDT, Dry Weight Start Date: 03/01/23 Status: Ordered atorvastatin 40 mg oral tablet See Instructions, TAKE 1 TABLET BY MOUTH EVERY DAY, # 90 tablet, 0 Refills, Maintenance, 05/01/23 21:18:00 EST, [facility], 188, cm, 04/26/23 13:06:00 EST, Height, [...] 2 Refills, Maintenance, 04/27/22 23:43:00 EST, Cream, [facility], 1 application Topically 2 times a day,Instr:apply to penile rash, 188, cm, 04/27/22 13:44:00 EST, Heigh... Start Date: 04/27/22 Status: Ordered diazepam 10 mg oral tablet See Instructions, PRN, 1 tablet By Mouth 1 hr before MRI, # 1 tablet, Refills 2, Tot. Refills 2, Maintenance, as needed for anxiety, 01/30/23 15:02:00 EDT, Instructions Replace Required Details, Route to Pharmacy Electronically, [facility],... Start Date: 01/30/23 Status: Ordered diclofenac 1% topical gel = 2 Gm, Topically, 4 times a day, PRN for pain, (lao) not to exceed: 16 gm/day/joint lower limb8 gm/day/joint of upper limb 32 gm/day may interchange for cream, # 100 Gm, 11 Refills, Maintenance, 04/15/22 13:02:00 EST, Gel, [facility]... Start Date: 04/15/22 Status: Ordered docusate [...] Start Date: 05/11/20 Status: Ordered Freestyle Tatyana [place] Freestyle Tatyana [place], See Instructions, # 1 each, Refills 0, [...] 11 Refills, Maintenance, 11/28/21 21:27:00 EDT, Solution, [facility], 188, cm, 11/22/21 16:37:00 EDT, Height, [...] Gm, 5 Refills, Maintenance, 12/22/21 7:28:00 EDT, [facility], same Rx was sent 11/11 w/ [...] 0 Refills, Maintenance, 01/12/22 7:27:00 EDT, Tablet, [facility], 188, cm, 12/26/21 14:06:00 EDT, Height, 122.63, kg, 11/22/21 16:37:00 EDT, Dry Weight Start Date: 01/12/22 Status: Ordered LUBRIC TEARS CALE 0.4-0.3% [place] INSTILL 1 DROP FOUR TIMES DAILY EACH EYE Start Date: 05/11/20 Status: Ordered magnesium oxide 400 mg oral tablet 1 tablet = 400 mg, By Mouth, Daily, # 90 tablet, 3 Refills, Maintenance, 05/07/23 16:31:00 EST, Tablet, [facility], 188, cm, 04/26/23 13:06:00 EST, Height, 126.09, kg, 04/26/23 13:06:00 EST, Dry Weight Start Date: 05/07/23 Status: Ordered meloxicam 15 mg oral tablet 1 tablet = 15 mg, By Mouth, Daily, Take with food PRN back pain Malay, # 14 tablet, 0 Refills, Maintenance, 11/25/21 13:26:00 EDT, [facility], Partial fill upon patient request if the prescription is for a schedule II opioid drug., 188,... Start Date: 11/25/21 Stop Date: 12/09/21 Status: Ordered metFORMIN 750 mg oral tablet, extended release 1 tablet = 750 mg, By Mouth, Daily, [replaces the metformin 500mg bid], # 30 tablet, 5 Refills, Maintenance, 05/15/23 8:10:00 EST, ER Tablet, [facility], Partial fill upon patient request if the prescription is for a schedule II opioid drug.... Start Date: 05/15/23 Status: Ordered methadone 10 mg oral tablet See Instructions, By mouth. 2 tab in AM, 1.5 midday, 2 in evening;for pain. IDC10: G90.5 CRPS. 28 day supply. [facility]., # 154 tablet, 0 Refills, Maintenance, pain, 06/19/23 23:14:00 EST,[facility], August partial fill., 06/19/23... Start Date: 06/19/23 Status: Ordered methadone 10 mg oral tablet See Instructions, By mouth. 2 tab in AM, 1.5 midday, 2 in evening;for pain. IDC10: G90.5 CRPS. 28 day supply. [facility]., # 154 tablet, 0 Refills, Maintenance, pain, 05/22/23 23:14:00 EST,[facility], August partial fill., 05/22/23... Start Date: 05/22/23 Status: Ordered methadone 10 mg oral tablet See Instructions, By mouth. 2 tab in AM, 1.5 midday, 2 in evening;for pain. IDC10: G90.5 CRPS. 28 day supply. [facility]., # 154 tablet, 0 Refills, Maintenance, pain, 07/17/23 23:14:00 EDT,[facility], August partial fill., 07/17/23... Start Date: 07/17/23 Status: Ordered methadone 10 mg oral tablet See Instructions, By mouth. 2 tab in AM, 1.5 midday, 2 in evening;for pain. IDC10: G90.5 CRPS. 28 day supply. [facility]., # 154 tablet, 0 Refills, Maintenance, pain, 04/24/23 22:44:00 EST,[facility], August partial fill., 188, cm,... Start Date: 04/24/23 Status: Ordered Metoclopramide = 10 mg, By Mouth, 3 times a day before meals and bedtime, 0 Refills, Maintenance, 08/20/18 13:55:26 EDT Start Date: 08/20/18 Status: Ordered Mounjaro 7.5 mg/0.5 mL subcutaneous solution = 7.5 mg, Subcutaneous Injection, Every week, rotate injection sites, # 4 each, 5 Refills, Maintenance, 04/27/23 0:18:00 EST, Solution, [facility], please d/c all prior Rx/refills for semaglutide, liraglutide, dulaglutide, 188, cm, 04/26/23... Start Date: 04/27/23 Status: Ordered Narcan 4 mg/0.1 mL nasal spray = 4 mg, Nares, Both, Once, may repeat every 2 to 3 minutes until patient responds, # 2 each, 1 Refills, Soft Stop, 02/16/22 23:38:00 EDT, [facility], 188, cm, 02/16/22 13:07:00 EDT, Height,122.63, kg, 11/22/21 16:37:00 EDT, Dry Weight Start Date: 02/16/22 Status: Ordered ondansetron 4 mg oral tablet TAKE 1 TABLET BY MOUTH EVERY 8 HOURS NEEDED FOR NAUSEA Idalia Sandoval Start Date: 08/20/18 Status: Ordered pantoprazole 40 mg oral delayed release tablet 0 Refills, Maintenance, 02/16/22 23:33:00 EDT Start Date: 02/16/22 Status: Ordered [place], 31 G x 8 mm BD Ultra [...] 02/18/23 19:20:00 EST, Route to Pharmacy Electronically, [facility], 188, cm, 01/30/23 13:26:00 EDT, Height, [...] tablet, 5 Refills, Maintenance, 12/19/22 20:41:00 EDT, [facility], 30, TAKE 1 TABLET BY MOUTH EVERY DAY, 188, cm, 10/19/22 13:16:00 EDT, Height, 122.63, kg, 11/22/21 16:37:00 EDT, Dry Weight Start Date: 12/19/22 Status: Ordered tamsulosin 0.4 mg oral capsule 0.8 mg, 2, capsule, By Mouth, Daily, dose increase, # 60 capsule, Refills 11, Tot. Refills 11, Maintenance, 07/27/22 11:57:00 EDT, Route to Pharmacy Electronically, [facility], 188, cm, 07/18/22 14:01:00 EDT, Height, 122.63, kg, 11/22/21 16:... Start Date: 07/27/22 Status: Ordered Test Strips See Instructions, # 100 each, Refills 5, Tot. Refills 5, Maintenance, Precision Ganga strips (for Freestyle Tatyana glucometer). Type 2 diabetes mellitus on insulin (E11, Z79.4). Test 2-4x/day if symptoms, or sensor concerns., 02/08/23 10:36:00 EDT, [facility]... Start Date: 02/08/23 Status: Ordered Test Strips [...] Intramuscular, Every 14 days, IM or subcutaneous. [facility]., # 2 mL, 5 Refills, Maintenance, 05/04/23 13:34:00 EST, [facility], 188, cm, 04/26/23 13:06:00 EST, Height, 126.09, kg, 04/26/23 13:06:00 EST, Dry Weight Start Date: 05/04/23 Status: Ordered tiZANidine 4 mg oral tablet 4 mg, 1, tablet, By Mouth, 3 times a day, PRN, # 90 tablet, Refills 11, Tot. Refills 11, Maintenance, as needed for muscle spasm, 08/18/22 8:03:00 EDT, Route to Pharmacy Electronically, [facility], 188, cm, 07/18/22 14:01:00 EDT, Height, 122... Start Date: 08/18/22 Status: Ordered Della Hodges SoloStar 300 units/mL subcutaneous solution = 60 units, Subcutaneous Injection, Daily, # 12 mL, 11 Refills, Maintenance, 02/08/23 10:15:00 EDT,Solution, [facility], replaces Lantus due to insurance coverage, 188, cm, 01/30/23 13:26:00 EDT, Height, 126, kg, 01/30/23 13:26:00 EDT, Dry... Start Date: 02/08/23 Status: Ordered Tylenol Extra Strength 500 mg oral tablet 2 tablet = 1,000 mg, By Mouth, 3 times a day, # 30 tablet, 11 Refills, Maintenance, 03/24/21 21:00:00 EST, [facility], 188, cm, 03/22/21 14:17:00 EST, Height, 125.2, kg, 06/20/20 14:28:00 EST, Dry Weight Start Date: 03/24/21 Status: Ordered Vitamin D3 1000 intl units oral tablet 1 tablet, By Mouth, Daily, # 90 tablet, 4 Refills, Maintenance, 04/01/23 22:28:00 EST, [facility], 188, cm, 01/30/23 13:26:00 EDT, Height, [...] ? chr regional pain syndrome 4s/p Modified [place] procedure, repair of conjoined tendon of extensor [...] Team Personnel Name: Shoaib An RN Position: [facility] RN Supv Member Role: Primary Care Nurse Name: Donovan DE LOS SANTOS, Vamshi Oshea Position: [facility] Physician - Primary Care Member Role: PCP Address: Address: [address] [place] [address]- Name: Luz Potter Position: [facility] Outreach Member Role: Lifetime Consulting Physician Name: Miki Rodriguez MD Position: [facility] Renal MD Member Role: Lifetime Consulting Physician Address: Address: [address] [facility] [place] [address]- Care Team Related Persons Name: BRANDON MTZ Address: home [address] [place] [address] Name: BRANDON BARKER Address: home [address] [place] [address] Name: ROSALINDA BERTRAND Address: home [address] [place] [address]
--- OUTSIDE RECORDS SUMMARY | 2023-10-11 08:10 | XMS_ITS | Continuity of Care Document ---
Author Organization [facility] Address [address] [place] [address]- Care Team Providers Care Linderman Operator Name Role Phone Vamshi Man MD Primary Care Physician [facility] Date[facility]s): 02/19/19 - 05/23/19 [facility]/[address] [address]- [facility] Attending Physician: Vamshi Man MD Admitting Physician: [...] Elissa Bertrand 11Result Comment: [11/27/2017] REceived at [facility] [place], [place]; ordered by Dr Michael Oliveira 12Location [...] 10/30/18 7:28:48 EDT, Route to Pharmacy Electronically, [id number], [facility] Start Date: 10/30/18 Status: Ordered AutoCPAP [...] 4 times a day, PRN for pain, (sami) not to exceed: 16 gm/day/joint lower limb8 [...] tablet, 1 Refills, Maintenance, 04/15/19 5:02:00 EST, [facility], 185, cm, 02/12/19 9:28:00 EDT, Height, [...] Eyes, Both, Daily at bedtime, cover gap- Group Worker Dr Broussard, # 2.5 mL, 1 Refills, Maintenance, 02/25/14 10:47:09, Ophth Solution, 1 drops Eyes, Both Daily at bedtime,Instr:cover gap-Group Worker Dr Broussard Start Date: 02/25/14 Status: Ordered [...] tablet, 5 Refills, Maintenance, 05/15/19 11:16:00 EST, [facility], 185, cm, 05/06/19 13:41:00 EST, Height, 127.72, kg, 05/06/19 13:41:00 EST, Dry Weight Start Date: 05/15/19 Status: Ordered metFORMIN 500 mg oral tablet, [...] 0 Refills, Maintenance, pain, 05/01/19 19:01:00 EST, [facility], August partial fill.,... Start Date: 05/01/19 Status: Ordered methadone 10 mg oral tablet See Instructions, PRN Pain , Severe, By mouth. 2 tab in AM, 1.5 midday, 2 in evening;for pain. IDC10: G90.5 CRPS. 28 day supply. [facility]., # 154 tablet, 0 Refills, Maintenance, pain, 05/06/19 15:01:00 EST, [facility], May parti... Start Date: 05/06/19 Status: Ordered Metoclopramide = 10 mg, By [...] Start Date: 05/15/18 Status: Ordered nystatin topical 490590 u/gm cream 1 application, Topically, 2 times a day, for fungal rash, # 30 Gm, 0 Refills, Maintenance, 12/27/1710:41:38, Cream, 1 application Topically 2 times a day,x14 days,Instr:for fungal rash Start Date: 12/27/16 Stop Date: 01/10/17 Status: Ordered nystatin-triamcinolone topical 736675 u/gm-0.1% ointment 1 applicator, Topically, 3 times [...] 11/29/18 11:27:43 EDT, Route to Pharmacy Electronically, [id number], [facility] Start Date: 11/29/18 Status: Ordered Testosterone Cypionate = 0.75 mg, Intramuscular, Every 14 days, Adm. today to Lot [id number] exp: 02/2020, 0 Refills, Maintenance, 11/14/18 14:06:08 EDT Start Date: 11/14/18 Status: Ordered testosterone enanthate 200 mg/mL intramuscular solution 0.75 mL, Intramuscular, Every 14 days, [facility], # 5 mL, 5 Refills, Maintenance, 05/06/19 15:06:00 EST, [facility], 185, cm, 05/06/19 13:41:00 EST, Height, 127.72, kg, 05/06/19 13:41:00 EST, Dry Weight Start Date: 05/06/19 Status: Ordered tiZANidine 4 mg oral tablet 4 mg, 1, tablet, By Mouth, 3 times a day, PRN, # 90 tablet, Refills 11, Tot. Refills 11, Maintenance, as needed for muscle spasm, 02/04/19 21:34:51 EDT, Route to Pharmacy Electronically, [id number], [facility] Start Date: 02/04/19 Status: Ordered Problem [...] syphilis serology(Confirmed) Active Hypertriglyceridemia(Confirmed) Active Erectile dysfunction(Confirmed) 2016 Active Chronic lateral epicondyliti s of elbow(Confirmed) [...] ? chr regional pain syndrome 4s/p Modified [place] procedure, repair of conjoined tendon of extensor [...]
--- OUTSIDE RECORDS SUMMARY | 2023-10-11 08:10 | XMS_ITS | Continuity of Care Document ---
Author Organization [facility] ter Address [address] [place] [id number]- Care Team Providers Care Fireproof Door Assembler Name Role Phone Vamshi Man MD Primary Care Physician [phone] [place] [facility] [place] - 03/12/[address] [address] Attending Physician: Ai Nelson NP Admitting Physician: Ai Nelson NP Referring Physician: Ai Nelson NP Allergies, Adverse Reactions, Alerts Substance Reaction Severity Status penicillin 1 rash Resolved Latex RASH Active Other Food Allergy fresh peaches - itch y mouth, throat and lips swell Active 1rash per mother as child. Did take a penicillin for treatment of H pylori per pt w/o problem. Immunizations Given and Recorded Vaccine Date Status Refusal Reason [id number] 12y+ bivalent booster vax 02/16/22 Given pneumococcal 20-valent conjugate vaccine 02/16/22 Given SARS-CoV-2 mRNA ([id number]) vax 11/11/21 Given SARS-CoV-2 (COVID-19) mRNA BNT-162b2 [...] Elissa Bertrand 12Result Comment: [11/27/2017] REceived at [facility] at [place], [place]; ordered by Dr Michael Oliveira 13Location [...] tablet, 5 Refills, Maintenance, 11/20/21 13:03:00 EDT, [facility], 188, cm, 11/11/21 12:46:00 EDT, Height, 125.2, kg, 06/20/20 14:28:00 EST, Dry Weight Start Date: 11/20/21 Status: Ordered atorvastatin 40 mg oral tablet 1 tablet, By Mouth, Daily, # 90 tablet, 1 Refills, [facility], 188, cm, 09/15/21 12:49:00EDT, Height, 125.2, kg, [...] rash, # 30 Gm, 2 Refills, Maintenance, 02/16/22 23:34:00 EDT, Cream, [facility], 1 application Topically 2 times a day,Instr:apply to penile rash, 188, cm, 02/16/22 13:07:00 EDT, [facility]... Start Date: 02/16/22 Status: Ordered diclofenac 1% topical gel = 2 Gm, Topically, 4 times a day, PRN for pain, (yoruba) not to exceed: 16 gm/day/joint lower limb8 gm/day/joint of upper limb 32 gm/day may interchange for cream, # 100 Gm, 5 Refills, Maintenance,02/16/22 23:35:00 EDT, Gel, [facility] Start Date: 02/16/22 Status: Ordered docusate sodium/sennosides 50/8.6mg docusate sodium/sennosides [...] Dry Weight Start Date: 02/16/22 Status: Ordered gabapentin 600 mg oral tablet 1 tablet = 600 mg, By Mouth, 2 times a day, PRN back pain and sciatica May cause drowsiness, do notdrive after taking Beninese, # 28 tablet, 0 Refills, Maintenance, 02/19/22 22:53:00 EST, [facility], 188, cm, 02/16/22 13:07:00 EDT, Heigh... Start Date: 02/19/22 Stop Date: 03/05/22 Status: Ordered Glucose Monitor See Instructions, PRN, [...] 11 Refills, Maintenance, 11/28/21 21:27:00 EDT, Solution, [facility], 188, cm, 11/22/21 16:37:00 EDT, Height, [...] BEDTIME, # 30 mL, 5 Refills, Maintenance, 01/23/22 8:43:00 EDT, [facility], 188, cm, 12/26/21 14:06:00 EDT, Height, 122.63, kg, 11/22/21 16:37:00 EDT, Dry Weight Start Date: 01/23/22 Status: Ordered latanoprost 0.005% ophthalmic solution 0 Refills, Maintenance, 05/11/20 16:57:00 EST Start Date: 05/11/20 Status: Ordered lidocaine 5% topical ointment See Instructions, PRN Pain , Moderate, 1 APPLICATION TOPICALLY 3 TIMES A DAY, # 50 Gm, 5 Refills, Maintenance, 12/22/21 7:28:00 EDT, [facility], same Rx was sent 11/11 w/ [...] 0 Refills, Maintenance, 01/12/22 7:27:00 EDT, Tablet, [facility], 188, cm, 12/26/21 14:06:00 EDT, Height, 122.63, kg, 11/22/21 16:37:00 EDT, Dry Weight Start Date: 01/12/22 Status: Ordered losartan 100 mg oral tablet 1 tablet, By Mouth, Daily in AM, # 30 tablet, 5 Refills, [facility], 188, cm, 09/15/21 12:49:00 EDT, Height, 125.2, kg, 06/20/20 14:28:00 EST, Dry Weight Start Date: 10/04/21 Status: Ordered LUBRIC TEARS CALE 0.4-0.3% [place] INSTILL 1 DROP FOUR TIMES DAILY EACH EYE Start Date: 05/11/20 Status: Ordered meloxicam 15 mg oral tablet 1 tablet = 15 mg, By Mouth, Daily, Take with food PRN back pain Beninese, # 14 tablet, 0 Refills, Maintenance, 11/25/21 13:26:00 EDT, [facility], Partial fill upon patient request if the prescription is for a schedule II opioid drug., 188,... Start Date: 11/25/21 Stop Date: 12/09/21 Status: Ordered metFORMIN 750 mg oral tablet, extended release 1 tablet = 750 mg, By Mouth, Daily, [replaces the metformin 500mg bid], # 30 tablet, 11 Refills, Maintenance, 11/22/21 17:53:00 EDT, ER Tablet, [facility], Partial fill upon patient requestif the prescription is for a schedule II opioid alessandra... Start Date: 11/22/21 Status: Ordered methadone 10 mg oral tablet See Instructions, By mouth. 2 tab in AM, 1.5 midday, 2 in evening;for pain. IDC10: G90.5 CRPS. 28 day supply. [facility]., # 154 tablet, 0 Refills, Maintenance, pain, 01/31/22 7:25:00 EDT, [facility], May partial fill., 01/31/22,... Start Date: 01/31/22 Status: Ordered methadone 10 mg oral tablet See Instructions, By mouth. 2 tab in AM, 1.5 midday, 2 in evening;for pain. IDC10: G90.5 CRPS. 28 day supply. [facility]., # 154 tablet, 0 Refills, Maintenance, pain, 02/28/22 14:14:00 EST,[facility], May partial fill. May fill... Start Date: 02/28/22 Status: Ordered methadone 10 mg oral tablet See Instructions, By mouth. 2 tab in AM, 1.5 midday, 2 in evening;for pain. IDC10: G90.5 CRPS. 28 day supply. [facility]., # 154 tablet, 0 Refills, Maintenance, pain, 04/25/22 23:30:00 EST,[facility], May partial fill., 04/25/22... Start Date: 04/25/22 Status: Ordered methadone 10 mg oral tablet See Instructions, By mouth. 2 tab in AM, 1.5 midday, 2 in evening;for pain. IDC10: G90.5 CRPS. 28 day supply. [facility]., # 154 tablet, 0 Refills, Maintenance, pain, 03/28/22 23:30:00 EST,[facility], May partial fill., 03/28/22... Start Date: 03/28/22 Status: Ordered Metoclopramide = 10 mg, By Mouth, 3 times a day before meals and bedtime, 0 Refills, Maintenance, 08/20/18 13:55:26 EDT Start Date: 08/20/18 Status: Ordered multivitamin Multiple Vitamins oral tablet 1 tablet, By Mouth, Daily, B complex multivitamin, # 30 tablet, 11 Refills, Maintenance, 11/22/21 17:58:00 EDT, [facility], Partial fill upon patient request if [...] 1 Refills, Soft Stop, 02/16/22 23:38:00 EDT, [facility], 188, cm, 02/16/22 13:07:00 EDT, Height,122.63, [...] EDT Start Date: 02/16/22 Status: Ordered [place], 31 G x 8 mm BD Ultra Fine III See Instructions, # 150 each, Refills 11, Tot. Refills 11, Maintenance, use 2- 5x/day Type 2 Diabetes Mellitus on Lantus and Humalog insulin with pen, 11/14/22 13:16:00 EST, Compound, 188, cm, 11/22/21 16:37:00 EDT, Height, 122.63, kg, 11/22/21 16:37:0... Start Date: 02/27/22 Stop Date: 02/22/23 Status: Ordered prazosin 1 mg oral capsule 2 mg, AT BEDTIME Start Date: 05/11/20 Status: Ordered semaglutide 1 mg/0.5 mL (1 mg dose) subcutaneous solution = 1 mg, Subcutaneous Infusion, Every 7 days, dose increase, # 1 each, 11 Refills, Maintenance, 09/15/21 14:29:00 EDT, [facility], Partial fill upon patient request if the prescription is for a schedule II opioid drug., 188, cm, 09/15/21 12:4... Start Date: 09/15/21 Status: Ordered Singulair 10 mg oral tablet 10 mg, 1, tablet, By Mouth, Daily, # 90 tablet, Refills 3, Tot. Refills 3, Maintenance, 03/30/20 21:31:00 EST, Route to Pharmacy Electronically, [facility], 185, cm, 02/25/20 10:29:00 EST, Height, 126.81, kg, 02/25/20 10:29:00 EST, Dry Weight Start Date: 03/30/20 Status: Ordered tamsulosin 0.4 mg oral capsule 0.4 mg, 1, capsule, By Mouth, Daily, Per urology, # 30 capsule, Refills 11, Tot. Refills 11, Maintenance, 02/16/22 23:29:00 EDT, Route to Pharmacy Electronically, [facility], 188, cm, 02/16/22 13:07:00 EDT, Height, 122.63, kg, 11/22/21 16:37... Start Date: 02/16/22 Status: Ordered Test Strips See Instructions, # 100 each, Refills 11, Tot. Refills 11, Maintenance, Glucometer test strips. Dx Diabetes M-2 on insulin (ICD-10: E11, Z79. 4). 3x per day, 08/15/21 14:12:00 EDT, Compound, 188, cm,07/27/21 8:34:00 EDT, Height, 125.2, kg, 06/20/20... Start Date: 08/15/21 Status: Ordered testosterone enanthate 200 mg/mL intramuscular solution 0.75 mL, Intramuscular, Every 14 days, IM or subcutaneous. [facility]., # 2 mL, 5 Refills, Maintenance, 02/05/22 22:55:00 EDT, [facility], 188, cm, 12/26/21 14:06:00 EDT, Height, 122.63, kg, 11/22/21 16:37:00 EDT, Dry Weight Start Date: 02/05/22 Status: Ordered tiZANidine 4 mg oral tablet 4 mg, 1, tablet, By Mouth, 3 times a day, PRN, # 90 tablet, Refills 11, Tot. Refills 11, Maintenance, as needed for muscle spasm, 08/12/21 11:09:00 EDT, Route to Pharmacy Electronically, [facility], 188, cm, 07/27/21 8:34:00 EDT, Height, 125... Start Date: 08/12/21 Status: Ordered traZODone 100 mg oral tablet TAKE ONE TO TWO TABLETS BY MOUTH AT BEDTIME NEEDED S. Carmen Start Date: 05/11/20 Status: Ordered Tylenol Extra Strength 500 mg oral tablet 2 tablet = 1,000 mg, By Mouth, 3 times a day, # 30 tablet, 11 Refills, Maintenance, 03/24/21 21:00:00 EST, [facility], 188, cm, 03/22/21 14:17:00 EST, Height, 125.2, kg, 06/20/20 14:28:00 EST, Dry Weight Start Date: 03/24/21 Status: Ordered Vitamin D3 1000 intl units oral tablet 1 tablet, By Mouth, Daily, for 30 days, # 30 tablet, 11 Refills, Physician Stop 10/30/22 17:07:00 EDT, 11/04/21 17:07:00 EDT, [facility], 188, cm, 09/15/21 12:49:00 EDT, Height, [...] ? chr regional pain syndrome 4s/p Modified [place] procedure, repair of conjoined tendon of extensor [...] Smoke: No entered on: 11/11/21 Sex Male Patient Care team information Care Team Personnel Name: Shoaib An RN Position: [facility] RN Supv Member Role: Primary Care Nurse Name: Vamshi Man MD Position: [facility] Primary Care Physician Member Role: PCP Address: Address: [address] [place] [address]- Name: Miki Rodriguez MD Position: [facility] Renal MD Member Role: Lifetime Consulting Physician Address: Address: [address] [facility], [place] [address]- Care Team Related Persons Name: BRANDON MTZ Address: home [address] [place] [address] Name: BRANDON BARKER Address: home [address] [place] [address] Name: ROSALINDA BERTRAND Address: home [address] [place] [address]
--- OUTSIDE RECORDS SUMMARY | 2023-10-11 08:10 | XMS_ITS | Continuity of Care Document ---
Author Organization [facility] Address [address] [place] [address]- Care Team Providers Care Knifeman Name Role Phone Vamshi Man MD Primary Care Physician [phone] Encounter [facility] [place] Date(s): 08/03/20 - 09/16/20 [facility]/[address] [address]- Attending Physician: Not on Staff, Attending MD [...] Elissa Bertrand 12Result Comment: [11/27/2017] REceived at [facility] at [place], [place]; ordered by Dr Michael Oliveira 13Location [...] 03/30/20 21:31:00 EST, Route to Pharmacy Electronically, [facility], Act[facility] rx. original sent 11/04/19. remaining refills sent., 185, cm, 02/25/20 10:29:00 EST, Hei... Start Date: 03/30/20 Status: Ordered AutoCPAP 9-18 with heated humidification AutoCPAP 9-18 with heated humidification, See Instructions, # 1 each, Refills 0, Tot. Refills 0, Maintenance, use overnight and naps from [facility], 11/04/18 12:28:22 EDT, Compound Start Date: 11/04/18 [...] capsule, 3 Refills, Maintenance, 03/30/20 21:36:00 EST, [facility], 185, cm, 02/25/20 10:29:00 EST, Height, 126.81, kg, 02/25/20 10:29:00 EST, Dry Weight Start Date: 03/30/20 Status: Ordered clotrimazole 1% topical cream 1 application, Topically, 2 times a day, apply to penile rash, # 30 Gm, 2 Refills, Maintenance, 01/07/20 14:49:00 EDT, Cream, [facility], 1 application Topically 2 times a day,Instr:apply to penile rash, 185, cm, 01/07/20 13:55:00 EDT, [facility]... Start Date: 01/07/20 Status: Ordered Cozaar 100 mg oral tablet 1 tablet = 100 mg, By Mouth, Daily in AM, # 30 tablet, 5 Refills, Maintenance, 03/15/20 17:08:00 EST, Tablet, [facility], duplicate rx. original sent 09/16/19. remaining [...] 06/25/20 15:39:00 EST, Route to Pharmacy Electronically, [facility], Partial f... Start Date: 06/25/20 Status: Ordered diclofenac 1% topical gel = 2 Gm, Topically, 4 times a day, PRN for pain, (yi) not to exceed: 16 gm/day/joint lower limb8 gm/day/joint of upper limb 32 gm/day may interchange for cream, # 100 Gm, 5 Refills, Maintenance,07/08/20 15:35:00 EDT, Gel, [facility] Start Date: 07/08/20 Status: Ordered docusate [...] 11 Refills, Maintenance, 02/15/20 21:05:00 EST, Solution, [facility], 185, cm, 01/07/20 13:55:00 EDT, Height, [...] mL, 3 Refills, Maintenance, 07/08/20 15:42:00 EDT, [facility], Duplicate rx-Original rx sent 06/22/20. Resent., 188, cm, 07/08/20 13:42:00 EDT, Height, 125.2, kg, 06/20/20 14:28:00 EST,... Start Date: 07/08/20 Status: Ordered latanoprost 0.005% ophthalmic solution 0 Refills, Maintenance, 05/11/20 16:57:00 EST Start Date: 05/11/20 Status: Ordered Lipitor 40 mg oral tablet 1 tablet = 40 mg, By Mouth, Daily, # 90 tablet, 3 Refills, Maintenance, 03/30/20 21:30:00 EST, [facility], duplicate rx. original sent 11/04/19. remaining [...] 3 Refills, Maintenance, 07/08/20 15:40:00 EDT, Tablet, [facility], Duplicate rx-Original rx sent06/22/20. Resent., 188, cm, 07/08/20 13:42:00 EDT, He... Start Date: 07/08/20 Status: Ordered methadone 10 mg oral tablet See Instructions, By mouth. 2 tab in AM, 1.5 midday, 2 in evening;for pain. IDC10: G90.5 CRPS. 28 day supply. [facility]., # 154 tablet, 0 Refills, Maintenance, pain, 09/14/20 0:46:00 EDT, [facility], May partial fill., 09/14/20,... Start Date: 09/14/20 Status: Ordered methadone 10 mg oral tablet See Instructions, By mouth. 2 tab in AM, 1.5 midday, 2 in evening;for pain. IDC10: G90.5 CRPS. 28 day supply. [facility]., # 154 tablet, 0 Refills, Maintenance, pain, 08/17/20 15:47:00 EDT,[facility], August partial fill., 08/17/20... Start Date: 08/17/20 Status: [...] Start Date: 05/15/18 Status: Ordered nystatin-triamcinolone topical 234822 u/gm-0.1% ointment 1 applicator, Topically, 3 times a day, to foreskin area FOR 3 DAYS then switch to other antifungal, # 15 Gm, 1 Refills, Maintenance, 07/08/20 15:34:00 EDT, [facility], 1 applicator Topically 3 times a day,Instr:to [...] EDT Start Date: 08/20/18 Status: Ordered Pen [place], 31 G x 8 mm BD Ultra [...] 03/30/20 21:31:00 EST, Route to Pharmacy Electronically, [facility], 185, cm, 02/25/20 10:29:00 EST, Height, [...] solution 0.75 mL, Intramuscular, Every 14 days, [facility], # 5 mL, 5 Refills, Maintenance, 08/29/20 21:33:00 EDT, [facility], 188, cm, 07/08/20 13:42:00 EDT, Height, 125.2, kg, 06/20/20 14:28:00 EST, Dry Weight Start Date: 08/29/20 Status: Ordered tiZANidine 4 mg oral tablet 4 mg, 1, tablet, By Mouth, 3 times a day, PRN, # 90 tablet, Refills 11, Tot. Refills 11, Maintenance, as needed for muscle spasm, 07/08/20 15:40:00 EDT, Route to Pharmacy Electronically, [facility], 188, cm, 07/08/20 13:42:00 EDT, Height, [...]
--- OUTSIDE RECORDS SUMMARY | 2023-10-11 08:10 | XMS_ITS | Continuity of Care Document ---
Author Organization [facility] Address [address] [place] [address]- Care Team Providers Care Upper Cutter Machine Name Role Phone Vamshi Man MD Primary Care Physician Encounter [facility] Date(s): 09/10/20 - 10/10/20 [facility]/[address] [address]- Allergies, Adverse Reactions, Alerts Substance Reaction Severity [...] Elissa Bertrand 12Result Comment: [11/27/2017] REceived at [facility] [place], [place]; ordered by Dr Michael Oliveira 13Location [...] 03/30/20 21:31:00 EST, Route to Pharmacy Electronically, [facility], dupilcate rx. original sent 11/04/19. remaining refills sent., 185, cm, 02/25/20 10:29:00 EST, Hei... Start Date: 03/30/20 Status: Ordered AutoCPAP 9-18 with heated humidification AutoCPAP 9-18 with heated humidification, See Instructions, # 1 each, Refills 0, Tot. Refills 0, Maintenance, use overnight and naps from [facility], 11/04/18 12:28:22 EDT, Compound Start Date: [...] capsule, 3 Refills, Maintenance, 03/30/20 21:36:00 EST, [facility], 185, cm, 02/25/20 10:29:00 EST, Height, 126.81, kg, 02/25/20 10:29:00 EST, Dry Weight Start Date: 03/30/20 Status: Ordered clotrimazole 1% topical cream 1 application, Topically, 2 times a day, apply to penile rash, # 30 Gm, 2 Refills, Maintenance, 01/07/20 14:49:00 EDT, Cream, [facility], 1 application Topically 2 times a day,Instr:apply to penile rash, 185, cm, 01/07/20 13:55:00 EDT, [facility]... Start Date: 01/07/20 Status: Ordered Cozaar 100 mg oral tablet 1 tablet = 100 mg, By Mouth, Daily in AM, # 30 tablet, 11 Refills, Maintenance, 09/22/20 9:41:00 EDT, Tablet, [facility], duplicate rx. original sent 09/16/19. remaining [...] 06/25/20 15:39:00 EST, Route to Pharmacy Electronically, [facility], Partial f... Start Date: 06/25/20 Status: Ordered diclofenac 1% topical gel = 2 Gm, Topically, 4 times a day, PRN for pain, (solomon islander) not to exceed: 16 gm/day/joint lower limb8 gm/day/joint of upper limb 32 gm/day may interchange for cream, # 100 Gm, 5 Refills, Maintenance,07/08/20 15:35:00 EDT, Gel, [facility] Start Date: 07/08/20 Status: Ordered docusate [...] 11 Refills, Maintenance, 02/15/20 21:05:00 EST, Solution, [facility], 185, cm, 01/07/20 13:55:00 EDT, Height, [...] mL, 3 Refills, Maintenance, 07/08/20 15:42:00 EDT, [facility], Duplicate rx-Original rx sent 06/22/20. Resent., 188, cm, 07/08/20 13:42:00 EDT, Height, 125.2, kg, 06/20/20 14:28:00 EST,... Start Date: 07/08/20 Status: Ordered latanoprost 0.005% ophthalmic solution 0 Refills, Maintenance, 05/11/20 16:57:00 EST Start Date: 05/11/20 Status: Ordered Lipitor 40 mg oral tablet 1 tablet = 40 mg, By Mouth, Daily, # 90 tablet, 3 Refills, Maintenance, 03/30/20 21:30:00 EST, [facility], duplicate rx. original sent 11/04/19. remaining refill sent., 185, cm, 02/25/20 10:29:00 EST, Height, 126.81, kg, 02/25/20 10:29:00 EST... Start Date: 03/30/20 Status: Ordered LORazepam 1 mg oral tablet See Instructions, PRN for anxiety, 2 tablets By Mouth 1 hours prior to MRI, # 2 tablet, 0 Refills, Acute 09/22/21 9:45:00 EDT, 09/22/20 9:43:00 EDT, Tablet, [facility], Partial fill upon patient request if [...] 3 Refills, Maintenance, 07/08/20 15:40:00 EDT, Tablet, [facility], Duplicate rx-Original rx sent06/22/20. Resent., 188, cm, 07/08/20 13:42:00 EDT, He... Start Date: 07/08/20 Status: Ordered methadone 10 mg oral tablet See Instructions, By mouth. 2 tab in AM, 1.5 midday, 2 in evening;for pain. IDC10: G90.5 CRPS. 28 day supply. [facility]., # 154 tablet, 0 Refills, Maintenance, pain, 10/12/20 9:38:00 EDT, [facility], August partial fill., 10/12/20,... Start Date: 10/12/20 Status: Ordered methadone 10 mg oral tablet See Instructions, By mouth. 2 tab in AM, 1.5 midday, 2 in evening;for pain. IDC10: G90.5 CRPS. 28 day supply. [facility]., # 154 tablet, 0 Refills, Maintenance, pain, 11/09/20 9:38:00 EDT, [facility], August partial fill., 11/09/20,... Start Date: 11/09/20 Status: Ordered Metoclopramide = 10 mg, By [...] Start Date: 05/15/18 Status: Ordered nystatin-triamcinolone topical 307742 u/gm-0.1% ointment 1 applicator, Topically, 3 times a day, to foreskin area FOR 3 DAYS then switch to other antifungal, # 15 Gm, 1 Refills, Maintenance, 07/08/20 15:34:00 EDT, [facility], 1 applicator Topically 3 times a [...] EDT Start Date: 08/20/18 Status: Ordered Pen [place], 31 G x 8 mm BD Ultra [...] 03/30/20 21:31:00 EST, Route to Pharmacy Electronically, [facility], 185, cm, 02/25/20 10:29:00 EST, Height, [...] solution 0.75 mL, Intramuscular, Every 14 days, [facility], # 5 mL, 5 Refills, Maintenance, 08/29/20 21:33:00 EDT, [facility], 188, cm, 07/08/20 13:42:00 EDT, Height, 125.2, kg, 06/20/20 14:28:00 EST, Dry Weight Start Date: 08/29/20 Status: Ordered tiZANidine 4 mg oral tablet 4 mg, 1, tablet, By Mouth, 3 times a day, PRN, # 90 tablet, Refills 11, Tot. Refills 11, Maintenance, as needed for muscle spasm, 07/08/20 15:40:00 EDT, Route to Pharmacy Electronically, [facility], 188, cm, 07/08/20 13:42:00 EDT, Height, [...] ? chr regional pain syndrome 4s/p Modified [place] procedure, repair of conjoined tendon of extensor [...]
--- OUTSIDE RECORDS SUMMARY | 2023-10-11 08:10 | XMS_ITS | Continuity of Care Document ---
Author Organization [facility] Address [address] [place] [address]- Care Team Providers Care Financial Dealers Name Role Phone Vamshi Man MD Primary Care Physician [facility] Date(s): 11/06/22 - 12/06/22 [facility] [address]- [place] Allergies, Adverse Reactions, Alerts Substance Reaction Severity Status penicillin 1 rash Resolved Other Food Allergy fresh peaches - itch y mouth, throat and lips swell Active Latex RASH Active 1rash per mother as child. Did take a penicillin for treatment of H pylori per pt w/o problem. Immunizations Given and Recorded Vaccine Date Status Refusal Reason [id number] 12y+ bivalent booster vax 02/16/22 Given pneumococcal 20-valent conjugate vaccine 02/16/22 Given Influenza Virus Vaccine (oldterm) 1 01/27/22 Recor ded Influenza Virus Vaccine (oldterm) 01/26/21 Recorde d SARS-CoV-2 mRNA ([id number]) vax 11/11/21 Given SARS-CoV-2 (COVID-19) mRNA BNT-162b2 [...] Elissa Bertrand 13Result Comment: [11/27/2017] REceived at [facility] [place], [place]; ordered by Dr Michael Oliveira 14Location [...] Daily, # 30 tablet, 5 Refills, Maintenance, 09/06/22 21:30:00 EDT, [facility], 188, cm, 07/18/22 14:01:00 EDT, Height, 122.63, kg, 11/22/21 16:37:00 EDT, Dry Weight Start Date: 09/06/22 Status: Ordered atorvastatin 40 mg oral tablet See Instructions, TAKE 1 TABLET BY MOUTH EVERY DAY, # 90 tablet, 1 Refills, Maintenance, 11/02/22 16:19:00 EDT, [facility], 188, cm, 10/19/22 13:16:00 EDT, Height, [...] 0 Refills, Maintenance, 05/15/22 16:24:00 EST, Tablet, [facility], Partial fill upon patient [...] 2 Refills, Maintenance, 04/27/22 23:43:00 EST, Cream, [facility], 1 application Topically 2 times a day,Instr:apply to penile rash, 188, cm, 04/27/22 13:44:00 EST, [place]... Start Date: 04/27/22 Status: Ordered diclofenac 1% topical gel = 2 Gm, Topically, 4 times a day, PRN for pain, (colombian) not to exceed: 16 gm/day/joint lower limb8 gm/day/joint of upper limb 32 gm/day may interchange for cream, # 100 Gm, 11 Refills, Maintenance, 04/15/22 13:02:00 EST, Gel, [facility]... Start Date: 04/15/22 Status: Ordered docusate [...] 0 Refills, Maintenance, 09/03/22 13:58:00 EDT, Tablet, [facility], 188, cm, 07/18/22 14:01:00 EDT, Height, 122.63, kg, 11/22/21... Start Date: 09/03/22 Status: Ordered fexofenadine 60 mg oral tablet 1 tablet = 60 mg, By Mouth, 2 times a day, PRN for allergy symptoms, # 20 tablet, 0 Refills, Maintenance, 09/03/22 13:58:00 EDT, Tablet, [facility], Partial fill upon patient request if theprescription is for a schedule II opioid drug., 188... Start Date: 09/03/22 Status: Ordered Flovent HFA 110 mcg/inh inhalation [...] May cause drowsiness, do notdrive after taking Somali, # 28 tablet, 0 Refills, Maintenance, 04/07/22 15:51:00 EST, [facility], [facility], 02/16/22 13:07:00 EDT, Heigh... Start [...] 11 Refills, Maintenance, 11/28/21 21:27:00 EDT, Solution, [facility], 188, cm, 11/22/21 16:37:00 EDT, Height, [...] mL, 5 Refills, Maintenance, 08/02/22 14:51:00 EDT, [facility], 188, cm, 07/18/22 14:01:00 EDT, Height, 122.63,kg, 11/22/21 16:37:00 EDT, Dry Weight Start Date: 08/02/22 Status: Ordered latanoprost 0.005% ophthalmic solution 0 Refills, Maintenance, 05/11/20 16:57:00 EST Start Date: 05/11/20 Status: Ordered lidocaine 5% topical ointment See Instructions, PRN Pain , Moderate, 1 APPLICATION TOPICALLY 3 TIMES A DAY, # 50 Gm, 5 Refills, Maintenance, 12/22/21 7:28:00 EDT, [facility], same Rx was sent 11/11 w/ [...] 0 Refills, Maintenance, 01/12/22 7:27:00 EDT, Tablet, [facility], 188, cm, 12/26/21 14:06:00 EDT, Height, 122.63, kg, 11/22/21 16:37:00 EDT, Dry Weight Start Date: 01/12/22 Status: Ordered losartan 100 mg oral tablet See Instructions, TAKE 1 TABLET BY MOUTH DAILY IN AM, # 30 tablet, 4 Refills, Maintenance, 10/06/2315:25:00 EDT, [facility], 188, cm, 07/18/22 14:01:00 EDT, Height, 122.63, kg, 11/22/21 16:37:00 EDT, Dry Weight Start Date: 10/05/22 Status: Ordered LUBRIC TEARS CALE 0.4-0.3% Milliliters INSTILL 1 DROP FOUR TIMES DAILY EACH EYE Start Date: 05/11/20 Status: Ordered magnesium oxide 400 mg oral tablet 1 tablet = 400 mg, By Mouth, Daily, # 30 tablet, 11 Refills, Maintenance, 04/27/22 15:29:00 EST, Tablet, [facility], Partial fill upon patient request if the prescription is for a schedule II opioid drug., 188, cm, 04/27/22 13:44:00 EST, Hei... Start Date: 04/27/22 Status: Ordered meloxicam 15 mg oral tablet 1 tablet = 15 mg, By Mouth, Daily, Take with food PRN back pain Somali, # 14 tablet, 0 Refills, Maintenance, 11/25/21 [...] Refills, Maintenance, 11/01/22 8:40:00 EDT, ER Tablet, [facility], Partial fill upon patient request if the prescription is for a schedule II opioid drug.... Start Date: 11/01/22 Status: Ordered methadone 10 mg oral tablet See Instructions, By mouth. 2 tab in AM, 1.5 midday, 2 in evening;for pain. IDC10: G90.5 CRPS. 28 day supply. [facility]., # 154 tablet, 0 Refills, Maintenance, pain, 12/05/22 17:25:00 EDT,[facility], May partial fill., 12/05/22... Start Date: 12/05/22 Status: Ordered methadone 10 mg oral tablet See Instructions, By mouth. 2 tab in AM, 1.5 midday, 2 in evening;for pain. IDC10: G90.5 CRPS. 28 day supply. [facility]., # 154 tablet, 0 Refills, Maintenance, pain, 01/02/23 17:25:00 EDT,[facility], May partial fill., 01/02/23... Start Date: 01/02/23 Status: Ordered methadone 10 mg oral tablet See Instructions, By mouth. 2 tab in AM, 1.5 midday, 2 in evening;for pain. IDC10: G90.5 CRPS. 28 day supply. [facility]., # 154 tablet, 0 Refills, Maintenance, pain, 11/07/22 17:25:00 EDT,[facility], August partial fill., 11/07/22... Start Date: 11/07/22 Status: Ordered methadone 10 mg oral tablet See Instructions, By mouth. 2 tab in AM, 1.5 midday, 2 in evening;for pain. IDC10: G90.5 CRPS. 28 day supply. [facility]., # 154 tablet, 0 Refills, Maintenance, pain, 04/25/22 23:30:00 EST,[facility], August partial fill., 04/25/22... Start Date: 04/25/22 Status: Ordered Metoclopramide = 10 mg, By Mouth, 3 times a day before meals and bedtime, 0 Refills, Maintenance, 08/20/18 13:55:26 EDT Start Date: 08/20/18 Status: Ordered multivitamin Multiple Vitamins oral tablet 1 tablet, By Mouth, Daily, B complex multivitamin, # 30 tablet, 11 Refills, Maintenance, 11/22/21 17:58:00 EDT, [facility], Partial fill upon patient [...] Date: 02/16/22 Status: Ordered PEN NEEDLES MIS [id number] PEN NEEDLES MIS [id number], See Instructions, # 100 each, 5 Refills, Maintenance, USE DAILY TYPE 2 DIABETES MELLITUS ON INSULIN WITH PEN, 08/25/22 16:39:00 EDT, 188, cm, 07/18/22 14:01:00 EDT, Height, 122.63, kg, 11/22/21 16:37:00 EDT, Dry Weight Start Date: 08/25/22 Status: Ordered Pen [place], 31 G x 8 mm BD Ultra [...] mL, 11 Refills, Maintenance, 04/27/22 23:40:00 EST, [facility], 188, cm, 04/27/22 13:44:00 EST, Height, 122.63, kg, 11/22/21 16:37:00 EDT,... Start Date: 04/27/22 Status: Ordered Singulair 10 mg oral tablet 10 mg, 1, tablet, By Mouth, Daily, # 90 tablet, Refills 3, Tot. Refills 3, Maintenance, 03/30/20 21:31:00 EST, Route to Pharmacy Electronically, [facility], 185, cm, 02/25/20 10:29:00 EST, Height, 126.81, kg, 02/25/20 10:29:00 EST, Dry Weight Start Date: 03/30/20 Status: Ordered tamsulosin 0.4 mg oral capsule 0.8 mg, 2, capsule, By Mouth, Daily, dose increase, # 60 capsule, Refills 11, Tot. Refills 11, Maintenance, 07/27/22 11:57:00 EDT, Route to Pharmacy Electronically, [facility], 188, cm, 07/18/22 14:01:00 EDT, Height, [...] Intramuscular, Every 14 days, IM or subcutaneous. [facility]., # 2 mL, 5 Refills, Maintenance, 10/27/22 17:23:00 EDT, [facility], 188, cm, 10/19/22 13:16:00 EDT, Height, 122.63, kg, 11/22/21 16:37:00 EDT, Dry Weight Start Date: 10/27/22 Status: Ordered tiZANidine 4 mg oral tablet 4 mg, 1, tablet, By Mouth, 3 times a day, PRN, # 90 tablet, Refills 11, Tot. Refills 11, Maintenance, as needed for muscle spasm, 08/18/22 8:03:00 EDT, Route to Pharmacy Electronically, [facility], 188, cm, 07/18/22 14:01:00 EDT, Height, 122... Start Date: 08/18/22 Status: Ordered traZODone 100 mg oral tablet TAKE ONE TO TWO TABLETS BY MOUTH AT BEDTIME NEEDED S. McAnulty Start Date: 05/11/20 Status: Ordered Tylenol Extra Strength 500 mg oral tablet 2 tablet = 1,000 mg, By Mouth, 3 times a day, # 30 tablet, 11 Refills, Maintenance, 03/24/21 21:00:00 EST, [facility], 188, cm, 03/22/21 14:17:00 EST, Height, 125.2, kg, 06/20/20 14:28:00 EST, Dry Weight Start Date: 03/24/21 Status: Ordered Problem List Condition Confirmation Course [...] Team Personnel Name: Shoaib An RN Position: [facility] RN Supv Member Role: Primary Care Nurse Name: Donovan DE LOS SANTOS, Vamshi Oshea Position: [facility] Physician - Primary Care Member Role: PCP Address: Address: [address] [place] [address]- Name: Miki Rodriguez MD Position: [facility] Renal MD Member Role: Lifetime Consulting Physician Address: Address: [address] [facility] [place] [address]- Care Team Related Persons Name: BRANDON MTZ Address: home [address] [place] [address] Name: BRANDON BARKER Address: home [address] [place] [address] Name: ROSALINDA BERTRAND Address: [address] [place] [address]
--- OUTSIDE RECORDS SUMMARY | 2023-10-11 08:10 | XMS_ITS | Continuity of Care Document ---
Author Organization [facility] Address Unknown Care Team Providers Care Bark Press Operator Name Role Phone Vamshi Man MD Primary Care Physician [phone] [facility]counter [facility] Date[facility]s): 08/08/21 - 09/07/21 [facility] Allergies, Adverse Reactions, Alerts Substance Reaction Severity Status Other Food Allergy fresh peaches - itch y mouth, throat and lips swell Active Latex RASH Active penicillin 1 rash Resolved 1rash per [...] 12Result Comment: [11/27/2017] REceived at [facility] at [place], [place]; ordered by Dr Michael Oliveira 13Location [...] tablet, 5 Refills, Maintenance, 05/14/21 20:06:00 EST, [facility], 188, cm, 03/22/21 14:17:00 EST, Height, 125.2, kg, 06/20/20 14:28:00 EST, Dry Weight Start Date: 05/14/21 Status: Ordered atorvastatin 40 mg oral tablet 1 tablet, By Mouth, Daily, # 90 tablet, 1 Refills, [facility], 188, cm, 03/22/21 14:17:00EST, Height, 125.2, [...] 2 Refills, Maintenance, 01/07/20 14:49:00 EDT, Cream, [facility], 1 application Topically 2 times a day,Instr:apply to penile rash, 185, cm, 01/07/20 13:55:00 EDT, [facility]... Start Date: 01/07/20 Status: Ordered Cozaar 100 mg oral tablet 1 tablet = 100 mg, By Mouth, Daily in AM, # 30 tablet, 11 Refills, Maintenance, 09/22/20 9:41:00 EDT, Tablet, [facility], duplicate rx. original sent 09/16/19. remaining [...] 06/25/20 15:39:00 EST, Route to Pharmacy Electronically, [facility], Partial f... Start Date: 06/25/20 Status: Ordered diclofenac 1% topical gel = 2 Gm, Topically, 4 times a day, PRN for pain, (icelandic) not to exceed: 16 gm/day/joint lower limb8 gm/day/joint of upper limb 32 gm/day may interchange for cream, # 100 Gm, 5 Refills, Maintenance,07/08/20 15:35:00 EDT, [facility] Start Date: 07/08/20 Status: Ordered docusate [...] Status: Ordered gabapentin 300 mg oral capsule See Instructions, 1 capsule QAM, 1 capsule midday, 3 capsules at bedtime; take instead of usual prescription for 1 week, # 35 capsule, Refills 0, Tot. Refills 0, Maintenance, 08/26/21 10:49:00 EDT, Instructions Replace Required Details, Route to Pharm... Start Date: 08/26/21 Status: Ordered gabapentin 300 mg oral capsule 300 mg, 1, capsule, By Mouth, Daily at bedtime, to help with new pain in back/hip, # 30 capsule, Refills 0, Tot. Refills 0, Maintenance, 08/22/21 16:07:00 EDT, Route to Pharmacy Electronically, [facility], Partial fill upon patient request i... Start Date: 08/22/21 Status: Ordered Glucose Monitor See Instructions, PRN, [...] tablet, 11 Refills, Maintenance, 07/25/21 20:18:00 EDT, [facility], 188, cm, 06/28/21 16:20:00 EDT, Height, [...] mL, 11 Refills, Maintenance, 01/14/21 18:16:00 EDT, [facility], 188, cm, 12/22/20 9:45:00 EDT, Height, 125.2, kg, 06/20/20 14:28:00EST, Dry Weight Start Date: 01/14/21 Status: Ordered latanoprost 0.005% ophthalmic solution 0 Refills, Maintenance, 05/11/20 16:57:00 EST Start Date: 05/11/20 Status: Ordered lidocaine 5% topical ointment See Instructions, PRN Pain , Moderate, 1 APPLICATION TOPICALLY 3 TIMES A DAY, # 50 Gm, 5 Refills, Maintenance, 08/29/21 22:40:00 EDT, [facility], 1 APPLICATION TOPICALLY 3 TIMES A DAY,PRN:Pain , Moderate, 188, cm, 08/26/21 9:59:00 EDT, [facility]... Start Date: 08/29/21 Status: Ordered LORazepam 1 mg oral tablet See Instructions, PRN for anxiety, 2 tablets By Mouth 1 hours prior to MRI, # 2 tablet, 1 Refills, Maintenance, 05/25/21 10:06:00 EST, Tablet, [facility], 188, cm, 05/25/21 9:26:00 EST, Height, 125.2, kg, 06/20/20 14:28:00 EST, Dry Weight Start Date: 05/25/21 Status: Ordered LUBRIC TEARS CALE 0.4-0.3% Milliliters INSTILL 1 DROP FOUR TIMES DAILY EACH EYE Start Date: 05/11/20 Status: Ordered meloxicam 7.5 mg oral tablet 1 tablet = 7.5 mg, By Mouth, Daily, take in am with food, # 30 tablet, 0 Refills, Maintenance, 08/22/21 16:07:00 EDT, Tablet, [facility], Partial fill upon patient request if the prescription is for a schedule II opioid drug., 188, cm, 05/0... Start Date: 08/22/21 Status: Ordered metFORMIN 500 mg oral tablet 1 tablet, By Mouth, 2 times a day, # 60 tablet, 5 Refills, [facility], 188, cm, 06/28/21 16:20:00 EDT, Height, 125.2, kg, 06/20/20 14:28:00 EST, Dry Weight Start Date: 07/08/21 Status: Ordered methadone 10 mg oral tablet See Instructions, By mouth. 2 tab in AM, 1.5 midday, 2 in evening;for pain. IDC10: G90.5 CRPS. 28 day supply. [facility]., # 154 tablet, 0 Refills, Maintenance, pain, 09/13/21 22:42:00 EDT,[facility], May partial fill., 09/13/21... Start Date: 09/13/21 Status: Ordered methadone 10 mg oral tablet See Instructions, By mouth. 2 tab in AM, 1.5 midday, 2 in evening;for pain. IDC10: G90.5 CRPS. 28 day supply. [facility]., # 154 tablet, 0 Refills, Maintenance, pain, 08/16/21 11:07:00 EDT,[facility], May partial fill., 08/16/21... Start Date: 08/16/21 Status: Ordered Metoclopramide = 10 mg, By Mouth, 3 times a day before meals and bedtime, 0 Refills, Maintenance, 08/20/18 13:55:26 EDT Start Date: 08/20/18 Status: Ordered multivitamin Multiple Vitamins oral tablet 1 tablet, By Mouth, Daily, B complex multivitamin, # 30 tablet, 11 Refills, Maintenance, 12/22/20 10:52:00 EDT, [facility], Partial fill upon patient request if the prescription is for a schedule II opioid drug., 1 tablet By Mouth Daily,Inst... Start Date: 12/22/20 Status: Ordered Narcan 4 mg/0.1 mL nasal spray = 4 mg, Nares, Both, Once, may repeat every 2 to 3 minutes until patient responds, # 2 each, 0 Refills, Soft Stop, 05/25/21 10:17:00 EST, [facility], 188, cm, 05/25/21 9:26:00 EST, Height, 125.2, kg, 06/20/20 14:28:00 EST, Dry Weight Start Date: 05/25/21 Status: Ordered nystatin-triamcinolone topical 668671 u/gm-0.1% ointment 1 applicator, Topically, 3 times a day, to foreskin area FOR 3 DAYS then switch to other antifungal, # 15 Gm, 1 Refills, Maintenance, 05/25/21 10:20:00 EST, [facility], 1 applicator Topically 3 times a day,Instr:to foreskin area FOR 3 DAYS t... Start Date: 05/25/21 Status: Ordered olopatadine 0.1% ophthalmic solution 1 drops, Eyes, Both, 2 times a day, 0 Refills, Maintenance, 01/01/16 18:36:52 EDT Start Date: 01/01/16 Status: Ordered ondansetron 4 mg oral tablet TAKE 1 TABLET BY MOUTH EVERY 8 HOURS NEEDED FOR NAUSEA Idaila Sandoval Start Date: 08/20/18 Status: Ordered Pen [place], 31 G x 8 mm BD Ultra [...] mL, 11 Refills, Maintenance, 05/25/21 10:14:00 EST, [facility], Partial fill upon patient request if the prescription is for a schedule II op... Start Date: 05/25/21 Status: Ordered Singulair 10 mg oral tablet 10 mg, 1, tablet, By Mouth, Daily, # 90 tablet, Refills 3, Tot. Refills 3, Maintenance, 03/30/20 21:31:00 EST, Route to Pharmacy Electronically, [facility], 185, cm, 02/25/20 10:29:00 EST, Height, [...] solution 0.75 mL, Intramuscular, Every 14 days, [facility], # 5 mL, 5 Refills, Maintenance, 07/27/21 9:48:00 EDT, [facility], 188, cm, 07/27/21 8:34:00 EDT, Height, 125.2, kg, 06/20/20 14:28:00 EST, Dry Weight Start Date: 07/27/21 Status: Ordered tiZANidine 4 mg oral tablet 4 mg, 1, tablet, By Mouth, 3 times a day, PRN, # 90 tablet, Refills 11, Tot. Refills 11, Maintenance, as needed for muscle spasm, 08/12/21 11:09:00 EDT, Route to Pharmacy Electronically, [facility], 188, cm, 07/27/21 8:34:00 EDT, Height, 125... Start Date: 08/12/21 Status: Ordered traZODone 100 mg oral tablet TAKE ONE TO TWO TABLETS BY MOUTH AT BEDTIME NEEDED S. Carmen Start Date: 05/11/20 Status: Ordered Tylenol Extra Strength 500 mg oral tablet 2 tablet = 1,000 mg, By Mouth, 3 times a day, # 30 tablet, 11 Refills, Maintenance, 03/24/21 21:00:00 EST, [facility], 188, cm, 03/22/21 14:17:00 EST, Height, 125.2, kg, 06/20/20 14:28:00 EST, Dry Weight Start Date: 03/24/21 Status: Ordered Vitamin D3 1000 intl units oral tablet 1 tablet, By Mouth, Daily, # 30 tablet, 5 Refills, [facility], 188, cm, 03/22/21 14:17:00EST, Height, 125.2, kg, 06/20/20 14:28:00 EST, Dry Weight Start Date: 05/04/21 Status: Ordered Problem List Condition Effective Dates Status Health Status Inform ant Alcohol abuse - per evalmargot 2016(Confirmed) Active Allergic rhinitis(Confirmed) Active Anxiety disorder(Confirmed) [...]
--- OUTSIDE RECORDS SUMMARY | 2023-10-11 08:10 | XMS_ITS | Continuity of Care Document ---
Author Organization [facility] Address [address] [place] [id number]- Care Team Providers Care Ct Technologist Name Role Phone Vamshi Man MD Primary Care Physician [phone] Encounter [facility] Date(s): 07/13/23 - 08/12/23 [facility]/[address] [address]- Allergies, Adverse Reactions, Alerts Substance Reaction Severity Status penicillin 1 rash Resolved penicillins Active Latex RASH Active Other Food Allergy fresh peaches - itch y mouth, throat and lips swell Active 1rash per mother as child. Did take a penicillin for treatment of H pylori per pt w/o problem. Immunizations Given and Recorded Vaccine Date Status Refusal Reason SARS-CoV-2(COVID-19)mRNA-LNP vac([id number]) 01/30/23 Given influenza virus vaccine, inactivated 01/05/23 [...] influenza virus vaccine, inactivated 03/19/06 Give n [id number] 12y+ bivalent booster vax 02/16/22 Given pneumococcal 20-valent conjugate vaccine 02/16/22 Given Influenza Virus Vaccine (oldterm) 9 01/27/22 Recor ded Influenza Virus Vaccine (oldterm) 01/26/21 Recorde d SARS-CoV-2 mRNA ([id number]) vax 11/11/21 Given SARS-CoV-2 (COVID-19) mRNA BNT-162b2 [...] Elissa Bertrand 13Result Comment: [11/27/2017] REceived at [facility] [place], [place]; ordered by Dr Michael Oliveira 14Location [...] 11 Refills, Maintenance, 02/08/23 10:21:00 EDT, Powder, [facility], replaces Flovent due to insurance coverage, 188, cm, 01/30/23 13:26:00 EDT, Height, 126, kg, 01/30/23 13:26:00 EDT,... Start Date: 02/08/23 Status: Ordered Aspirin Low Dose 81 mg oral delayed release tablet 1 tablet, By Mouth, Daily, # 90 tablet, 4 Refills, Maintenance, 03/01/23 17:49:00 EST, [facility], 188, cm, 01/30/23 13:26:00 EDT, Height, [...] 2 Refills, Maintenance, 04/27/22 23:43:00 EST, Cream, [facility], 1 application Topically 2 times a day,Instr:apply to penile rash, 188, cm, 04/27/22 13:44:00 EST, Heigh... Start Date: 04/27/22 Status: Ordered diazepam 10 mg oral tablet See Instructions, PRN, 1 tablet By Mouth 1 hr before MRI, # 1 tablet, Refills 2, Tot. Refills 2, Maintenance, as needed for anxiety, 01/30/23 15:02:00 EDT, Instructions Replace Required Details, Route to Pharmacy Electronically, [facility],... Start Date: 01/30/23 Status: Ordered diclofenac 1% topical gel = 2 Gm, Topically, 4 times a day, PRN for pain, (romanian) not to exceed: 16 gm/day/joint lower limb8 gm/day/joint of upper limb 32 gm/day may interchange for cream, # 100 Gm, 11 Refills, Maintenance, 04/15/22 13:02:00 EST, Gel, [facility]... Start Date: 04/15/22 Status: Ordered docusate [...] 16 Gm, 11 Refills, Maintenance, 07/09/23 11:37:00EDT, [place], [facility], Partial fill upon patient request if the prescription is for a schedule II opioid drug., 2 sprays Nares, Both 2 times... Start Date: 07/09/23 Status: Ordered Freestyle Tatyana He[place] Freestyle Tatyana [place], See Instructions, # 1 each, Refills 0, [...] days., 08/11/23 11:15:00 EDT, Recently sent to [facility]... Start Date: 08/11/23 Status: [...] 11 Refills, Maintenance, 11/28/21 21:27:00 EDT, Solution, [facility], 188, cm, 11/22/21 16:37:00 EDT, Height, [...] Gm, 5 Refills, Maintenance, 12/22/21 7:28:00 EDT, [facility], same Rx was sent 11/11 w/ [...] tablet, 0 Refills, Maintenance, pain, 10/09/23 21:08:00 EDT,[facility], May partial fill., 0... Start Date: 10/09/23 Status: Ordered methadone 10 mg oral tablet See Instructions, By mouth. 2 tab in AM, 1.5 midday, 2 in evening;for pain. IDC10: G90.5 CRPS. 28 day supply. [facility]., # 154 tablet, 0 Refills, Maintenance, pain, 09/11/23 21:08:00 EDT,[facility], May partial fill., 0... Start Date: 09/11/23 Status: Ordered methadone 10 mg oral tablet See Instructions, By mouth. 2 tab in AM, 1.5 midday, 2 in evening;for pain. IDC10: G90.5 CRPS. 28 day supply. [facility]., # 154 tablet, 0 Refills, Maintenance, pain, 08/14/23 21:08:00 EDT,[facility], May [...] EDT Start Date: 02/16/22 Status: Ordered Pen [place], 31 G x 8 mm BD Ultra [...] 02/18/23 19:20:00 EST, Route to Pharmacy Electronically, [facility], 188, cm, 01/30/23 13:26:00 EDT, Height, [...] tablet, 5 Refills, Maintenance, 07/09/23 11:09:00 EDT, [facility], 30, 1 tablet By Mouth Daily, 188, cm, 07/05/23 11:09:00 EDT, Height, 126.09, kg, 04/26/23 13:06:00 EST, Dry Weight Start Date: 07/09/23 Status: Ordered tamsulosin 0.4 mg oral capsule 0.8 mg, 2, capsule, By Mouth, Daily, dose increase, # 180 capsule, Refills 11, Tot. Refills 11, Maintenance, 07/26/23 14:15:00 EDT, Route to Pharmacy Electronically, [facility], 188, cm, 07/26/23 13:30:00 EDT, Height, 121.81, kg, 07/26/23 13... Start Date: 07/26/23 Status: Ordered Test Strips See Instructions, # 100 each, Refills 5, Tot. Refills 5, Maintenance, Precision Ganga strips (for Freestyle Tatyana glucometer). Type 2 diabetes mellitus on insulin (E11, Z79.4). Test 2-4x/day if symptoms, or sensor concerns., 02/08/23 10:36:00 EDT, [facility]... Start Date: 02/08/23 Status: Ordered Test Strips [...] Intramuscular, Every 14 days, IM or subcutaneous. [facility]., # 2 mL, 5 Refills, Maintenance, 08/11/23 11:20:00 EDT, [facility], Last sent to [facility]. Sending now to [facility] due to pt request msg [email or web address]... [...] tablet, 11 Refills, Maintenance, 03/24/21 21:00:00 EST, [facility], 188, cm, 03/22/21 14:17:00 EST, Height, 125.2, kg, 06/20/20 14:28:00 EST, Dry Weight Start Date: 03/24/21 Status: Ordered Vitamin D3 1000 intl units oral tablet 1 tablet, By Mouth, Daily, # 90 tablet, 4 Refills, Maintenance, 04/01/23 22:28:00 EST, [facility], 188, cm, 01/30/23 13:26:00 EDT, Height, [...] ? chr regional pain syndrome 4s/p Modified [place] procedure, repair of conjoined tendon of extensor [...] Team Personnel Name: Shoaib An RN Position: [facility] RN Supv Member Role: Primary Care Nurse Name: Donovan DE LOS SANTOS, Vamshi Oshea Position: [facility] Physician - Primary Care Member Role: PCP Address: Address: [address] [place] [address]- Name: Luz Potter Position: [facility] Outreach Member Role: Lifetime Consulting Physician Name: Miki Rodriguez MD Position: [facility] Renal MD Member Role: Lifetime Consulting Physician Address: Address: [address] [facility], [place] [address]- Care Team Related Persons Name: BRANDON MTZ Address: home [address] [place] [address] Name: BRANDON BARKER Address: home [address] [place] [address] Name: ROSALINDA BERTRAND
--- OUTSIDE RECORDS SUMMARY | 2023-10-11 08:11 | XMS_ITS | Continuity of Care Document ---
Author Organization [facility] Address [address] [place] [address]- Care Team Providers Care Contact Lens Manufacturer Name Role Phone Vamshi Man MD Primary Care Physician Encounter [facility] Date(s): 08/08/22 - 09/07/22 [facility]/[place] [address]- [place] Allergies, Adverse Reactions, Alerts Substance Reaction Severity Status penicillin 1 rash Resolved Latex RASH Active Other Food Allergy fresh peaches - itch y mouth, throat and lips swell Active 1rash per mother as child. Did take a penicillin for treatment of H pylori per pt w/o problem. Immunizations Given and Recorded Vaccine Date Status Refusal Reason [id number] 12y+ bivalent booster vax 02/16/22 Given pneumococcal 20-valent conjugate vaccine 02/16/22 Given Influenza Virus Vaccine (oldterm) 1 01/27/22 Recor ded Influenza Virus Vaccine (oldterm) 01/26/21 Recorde d SARS-CoV-2 mRNA (amwjrjj-[id number]) vax 11/11/21 Given SARS-CoV-2 (COVID-19) mRNA BNT-162b2 [...] Elissa Bertrand 13Result Comment: [11/27/2017] REceived at [facility] [place], [place]; ordered by Dr Michael Oliveira 14Location [...] tablet, 5 Refills, Maintenance, 09/06/22 21:30:00 EDT, [facility], 188, cm, 07/18/22 14:01:00 EDT, Height, 122.63, kg, 11/22/21 16:37:00 EDT, Dry Weight Start Date: 09/06/22 Status: Ordered atorvastatin 40 mg oral tablet 1 tablet, By Mouth, Daily, # 90 tablet, 1 Refills, Maintenance, 04/10/22 12:34:00 EST, [facility], 188, cm, 02/16/22 13:07:00 EDT, Height, [...] 0 Refills, Maintenance, 05/15/22 16:24:00 EST, Tablet, [facility], Partial fill upon patient request if [...] 2 Refills, Maintenance, 04/27/22 23:43:00 EST, Cream, [facility], 1 application Topically 2 times a day,Instr:apply to penile rash, 188, cm, 04/27/22 13:44:00 EST, [facility]... Start Date: 04/27/22 Status: Ordered diclofenac 1% topical gel = 2 Gm, Topically, 4 times a day, PRN for pain, (urdu) not to exceed: 16 gm/day/joint lower limb8 gm/day/joint of upper limb 32 gm/day may interchange for cream, # 100 Gm, 11 Refills, Maintenance, 04/15/22 13:02:00 EST, Gel, [facility]... Start Date: 04/15/22 Status: Ordered docusate [...] 0 Refills, Maintenance, 09/03/22 13:58:00 EDT, Tablet, [facility], 188, cm, 07/18/22 14:01:00 EDT, Height, 122.63, kg, 11/22/21... Start Date: 09/03/22 Status: Ordered fexofenadine 60 mg oral tablet 1 tablet = 60 mg, By Mouth, 2 times a day, PRN for allergy symptoms, # 20 tablet, 0 Refills, Maintenance, 09/03/22 13:58:00 EDT, Tablet, [facility], Partial fill upon patient request if [...] May cause drowsiness, do notdrive after taking [place], # 28 tablet, 0 Refills, Maintenance, 04/07/22 15:51:00 EST, [facility], 188, cm, 02/16/22 13:07:00 EDT, Heigh... Start [...] 11 Refills, Maintenance, 11/28/21 21:27:00 EDT, Solution, [facility], 188, cm, 11/22/21 16:37:00 EDT, Height, [...] mL, 5 Refills, Maintenance, 08/02/22 14:51:00 EDT, [facility], 188, cm, 07/18/22 14:01:00 EDT, Height, 122.63,kg, 11/22/21 16:37:00 EDT, Dry Weight Start Date: 08/02/22 Status: Ordered latanoprost 0.005% ophthalmic solution 0 Refills, Maintenance, 05/11/20 16:57:00 EST Start Date: 05/11/20 Status: Ordered lidocaine 5% topical ointment See Instructions, PRN Pain , Moderate, 1 APPLICATION TOPICALLY 3 TIMES A DAY, # 50 Gm, 5 Refills, Maintenance, 12/22/21 7:28:00 EDT, [facility], same Rx was sent 11/11 w/ [...] 0 Refills, Maintenance, 01/12/22 7:27:00 EDT, Tablet, [facility], 188, cm, 12/26/21 14:06:00 EDT, Height, 122.63, kg, 11/22/21 16:37:00 EDT, Dry Weight Start Date: 01/12/22 Status: Ordered losartan 100 mg oral tablet 1 tablet, By Mouth, Daily in AM, # 30 tablet, 5 Refills, 03/20/22 10:07:00 EST, [facility], 188, cm, 02/16/22 13:07:00 EDT, Height, 122.63, kg, 11/22/21 16:37:00 EDT, Dry Weight Start Date: 03/20/22 Status: Ordered LUBRIC TEARS CALE 0.4-0.3% [place] INSTILL 1 DROP FOUR TIMES DAILY EACH EYE Start Date: 05/11/20 Status: Ordered magnesium oxide 400 mg oral tablet 1 tablet = 400 mg, By Mouth, Daily, # 30 tablet, 11 Refills, Maintenance, 04/27/22 15:29:00 EST, Tablet, [facility], Partial fill upon patient request if the prescription is for a schedule II opioid drug., 188, cm, 04/27/22 13:44:00 EST, Hei... Start Date: 04/27/22 Status: Ordered meloxicam 15 mg oral tablet 1 tablet = 15 mg, By Mouth, Daily, Take with food PRN back pain [place], # 14 tablet, 0 Refills, Maintenance, 11/25/21 13:26:00 EDT, [facility], Partial fill upon patient request if the prescription is for a schedule II opioid drug., 188,... Start Date: 11/25/21 Stop Date: 12/09/21 Status: Ordered metFORMIN 750 mg oral tablet, extended release 1 tablet = 750 mg, By Mouth, Daily, [replaces the metformin 500mg bid], # 30 tablet, 11 Refills, Maintenance, 11/22/21 17:53:00 EDT, ER Tablet, [facility], Partial fill upon patient requestif the prescription is for a schedule II opioid alessandra... Start Date: 11/22/21 Status: Ordered methadone 10 mg oral tablet See Instructions, By mouth. 2 tab in AM, 1.5 midday, 2 in evening;for pain. IDC10: G90.5 CRPS. 28 day supply. [facility]., # 154 tablet, 0 Refills, Maintenance, pain, 10/10/22 19:56:00 EDT,[facility], May partial fill., 10/10/22... Start Date: 10/10/22 Status: Ordered methadone 10 mg oral tablet See Instructions, By mouth. 2 tab in AM, 1.5 midday, 2 in evening;for pain. IDC10: G90.5 CRPS. 28 day supply. [facility]., # 154 tablet, 0 Refills, Maintenance, pain, 09/12/22 19:56:00 EDT,[facility], May partial fill., 09/12/22... Start Date: 09/12/22 Status: Ordered methadone 10 mg oral tablet See Instructions, By mouth. 2 tab in AM, 1.5 midday, 2 in evening;for pain. IDC10: G90.5 CRPS. 28 day supply. [facility]., # 154 tablet, 0 Refills, Maintenance, pain, 08/15/22 19:56:00 EDT,[facility], May partial fill., 08/15/22... Start Date: 08/15/22 Status: Ordered methadone 10 mg oral tablet See Instructions, By mouth. 2 tab in AM, 1.5 midday, 2 in evening;for pain. IDC10: G90.5 CRPS. 28 day supply. [facility]., # 154 tablet, 0 Refills, Maintenance, pain, 04/25/22 23:30:00 EST,[facility], May partial fill., 04/25/22... Start Date: 04/25/22 Status: Ordered Metoclopramide = 10 mg, By Mouth, 3 times a day before meals and bedtime, 0 Refills, Maintenance, 08/20/18 13:55:26 EDT Start Date: 08/20/18 Status: Ordered multivitamin Multiple Vitamins oral tablet 1 tablet, By Mouth, Daily, B complex multivitamin, # 30 tablet, 11 Refills, Maintenance, 11/22/21 17:58:00 EDT, [facility], Partial fill upon patient request if [...] 1 Refills, Soft Stop, 02/16/22 23:38:00 EDT, [facility], 188, cm, 02/16/22 13:07:00 EDT, Height,122.63, [...] Date: 02/16/22 Status: Ordered PEN NEEDLES MIS [id number] PEN NEEDLES MIS [id number], See Instructions, # 100 each, 5 Refills, Maintenance, USE DAILY TYPE 2 DIABETES MELLITUS ON INSULIN WITH PEN, 08/25/22 16:39:00 EDT, 188, cm, 07/18/22 14:01:00 EDT, Height, 122.63, kg, 11/22/21 16:37:00 EDT, Dry Weight Start Date: 08/25/22 Status: Ordered Pen [place], 31 G x 8 mm BD Ultra Fine III See Instructions, # 150 each, Refills 11, Tot. Refills 11, Maintenance, use 2- 5x/day Type 2 Diabetes Mellitus on Lantus and Humalog insulin with pen, 05/30/22 12:24:00 EST, [facility], 188, cm, 05/19/22 10:14:00 EST, Height, 122.63, [...] mL, 11 Refills, Maintenance, 04/27/22 23:40:00 EST, [facility], 188, cm, 04/27/22 13:44:00 EST, Height, 122.63, kg, 11/22/21 16:37:00 EDT,... Start Date: 04/27/22 Status: Ordered Singulair 10 mg oral tablet 10 mg, 1, tablet, By Mouth, Daily, # 90 tablet, Refills 3, Tot. Refills 3, Maintenance, 03/30/20 21:31:00 EST, Route to Pharmacy Electronically, [facility], 185, cm, 02/25/20 10:29:00 EST, Height, 126.81, kg, 02/25/20 10:29:00 EST, Dry Weight Start Date: 03/30/20 Status: Ordered tamsulosin 0.4 mg oral capsule 0.8 mg, 2, capsule, By Mouth, Daily, dose increase, # 60 capsule, Refills 11, Tot. Refills 11, Maintenance, 07/27/22 11:57:00 EDT, Route to Pharmacy Electronically, [facility], 188, cm, 07/18/22 14:01:00 EDT, Height, [...] Intramuscular, Every 14 days, IM or subcutaneous. [facility]., # 2 mL, 5 Refills, Maintenance, 07/26/22 21:21:00 EDT, [facility], 188, cm, 07/18/22 14:01:00 EDT, Height, 122.63, kg, 11/22/21 16:37:00 EDT, Dry Weight Start Date: 07/26/22 Status: Ordered tiZANidine 4 mg oral tablet 4 mg, 1, tablet, By Mouth, 3 times a day, PRN, # 90 tablet, Refills 11, Tot. Refills 11, Maintenance, as needed for muscle spasm, 08/18/22 8:03:00 EDT, Route to Pharmacy Electronically, [facility], 188, cm, 07/18/22 14:01:00 EDT, Height, 122... Start Date: 08/18/22 Status: Ordered traZODone 100 mg oral tablet TAKE ONE TO TWO TABLETS BY MOUTH AT BEDTIME NEEDED SZayra Morales Start Date: 05/11/20 Status: Ordered Tylenol Extra Strength 500 mg oral tablet 2 tablet = 1,000 mg, By Mouth, 3 times a day, # 30 tablet, 11 Refills, Maintenance, 03/24/21 21:00:00 EST, [facility], 188, cm, 03/22/21 14:17:00 EST, Height, 125.2, kg, 06/20/20 14:28:00 EST, Dry Weight Start Date: 03/24/21 Status: Ordered Vitamin D3 1000 intl units oral tablet 1 tablet, By Mouth, Daily, for 30 days, # 30 tablet, 11 Refills, Physician Stop 10/30/22 17:07:00 EDT, 11/04/21 17:07:00 EDT, [facility], 188, cm, 09/15/21 12:49:00 EDT, Height, [...] ? chr regional pain syndrome 4s/p Modified [place] procedure, repair of conjoined tendon of extensor [...] Team Personnel Name: Shoaib An RN Position: [facility] RN Supv Member Role: Primary Care Nurse Name: Donovan DE LOS SANTOS, Vamshi Oshea Position: [facility] Physician - Primary Care Member Role: PCP Address: Address: [address] [place] [address]- Name: Miki Rodriguez MD Position: [facility] Renal MD Member Role: Lifetime Consulting Physician Address: Address: [address] [facility] [place] [address]- Care Team Related Persons Name: BRANDON MTZ Address: home [address] [place] [address] Name: BRANDON BARKER Address: home [address] [place] [address] Name: ROSALINDA BERTRAND Address: home [address] [place] [address]
--- OUTSIDE RECORDS SUMMARY | 2023-10-11 08:11 | XMS_ITS | Continuity of Care Document ---
Author Organization [facility] Address [address] [place] [address]- Care Team Providers Care Full Stack Web Developer Name Role Phone Vamshi Man MD Primary Care Physician [facility] Date[facility]): 04/[facility]/23 - 05/30/23 [facility]/[place] [address]- [place] Allergies, Adverse Reactions, Alerts Substance Reaction Severity Status penicillin 1 rash Resolved penicillins Active Latex RASH Active Other Food Allergy fresh peaches - itch y mouth, throat and lips swell Active 1rash per mother as child. Did take a penicillin for treatment of H pylori per pt w/o problem. Immunizations Given and Recorded Vaccine Date Status Refusal Reason SARS-CoV-2(COVID-19)mRNA-LNP vac([id number]) 01/30/23 Given influenza virus vaccine, inactivated 01/05/23 [...] influenza virus vaccine, inactivated 03/19/06 Give n [id number] 12y+ bivalent booster vax 02/16/22 Given pneumococcal 20-valent conjugate vaccine 02/16/22 Given Influenza Virus Vaccine (oldterm) 9 01/27/22 Recor ded Influenza Virus Vaccine (oldterm) 01/26/21 Recorde d SARS-CoV-2 mRNA ([id number]) vax 11/11/21 Given SARS-CoV-2 (COVID-19) mRNA BNT-162b2 [...] Elissa Bertrand 13Result Comment: [11/27/2017] REceived at [facility] at [place], [place]; ordered by Dr Michael Oliveira 14Location [...] 11 Refills, Maintenance, 02/08/23 10:21:00 EDT, Powder, [facility], replaces Flovent due to insurance coverage, 188, cm, 01/30/23 13:26:00 EDT, Height, 126, kg, 01/30/23 13:26:00 EDT,... Start Date: 02/08/23 Status: Ordered Aspirin Low Dose 81 mg oral delayed release tablet 1 tablet, By Mouth, Daily, # 90 tablet, 4 Refills, Maintenance, 03/01/23 17:49:00 EST, [facility], 188, cm, 01/30/23 13:26:00 EDT, Height, 126, kg, 01/30/23 13:26:00 EDT, Dry Weight Start Date: 03/01/23 Status: Ordered atorvastatin 40 mg oral tablet See Instructions, TAKE 1 TABLET BY MOUTH EVERY DAY, # 90 tablet, 0 Refills, Maintenance, 05/01/23 21:18:00 EST, [facility], 188, cm, 04/26/23 13:06:00 EST, Height, [...] 2 Refills, Maintenance, 04/27/22 23:43:00 EST, Cream, [facility], 1 application Topically 2 times a day,Instr:apply to penile rash, 188, cm, 04/27/22 13:44:00 EST, Heigh... Start Date: 04/27/22 Status: Ordered diazepam 10 mg oral tablet See Instructions, PRN, 1 tablet By Mouth 1 hr before MRI, # 1 tablet, Refills 2, Tot. Refills 2, Maintenance, as needed for anxiety, 01/30/23 15:02:00 EDT, Instructions Replace Required Details, Route to Pharmacy Electronically, [facility],... Start Date: 01/30/23 Status: Ordered diclofenac 1% topical gel = 2 Gm, Topically, 4 times a day, PRN for pain, (mohawk) not to exceed: 16 gm/day/joint lower limb8 gm/day/joint of upper limb 32 gm/day may interchange for cream, # 100 Gm, 11 Refills, Maintenance, 04/15/22 13:02:00 EST, Gel, [facility]... Start Date: 04/15/22 Status: Ordered docusate [...] Start Date: 05/11/20 Status: Ordered Freestyle Tatyana [place] Freestyle Tatyana [place], See Instructions, # 1 each, Refills 0, [...] 11 Refills, Maintenance, 11/28/21 21:27:00 EDT, Solution, [facility], 188, cm, 11/22/21 16:37:00 EDT, Height, [...] Gm, 5 Refills, Maintenance, 12/22/21 7:28:00 EDT, [facility], same Rx was sent 11/11 w/ [...] 0 Refills, Maintenance, 01/12/22 7:27:00 EDT, Tablet, [facility], 188, cm, 12/26/21 14:06:00 EDT, Height, 122.63, kg, 11/22/21 16:37:00 EDT, Dry Weight Start Date: 01/12/22 Status: Ordered LUBRIC TEARS CALE 0.4-0.3% [place] INSTILL 1 DROP FOUR TIMES DAILY EACH EYE Start Date: 05/11/20 Status: Ordered magnesium oxide 400 mg oral tablet 1 tablet = 400 mg, By Mouth, Daily, # 90 tablet, 3 Refills, Maintenance, 05/07/23 16:31:00 EST, Tablet, [facility], 188, cm, 04/26/23 13:06:00 EST, Height, 126.09, kg, 04/26/23 13:06:00 EST, Dry Weight Start Date: 05/07/23 Status: Ordered meloxicam 15 mg oral tablet 1 tablet = 15 mg, By Mouth, Daily, Take with food PRN back pain Telugu, # 14 tablet, 0 Refills, Maintenance, 11/25/21 [...] Refills, Maintenance, 05/15/23 8:10:00 EST, ER Tablet, [facility], [...] 05/22/23 23:14:00 EST,[facility], August partial fill., 05/22/23... Start Date: 05/22/23 Status: Ordered methadone 10 mg oral tablet See Instructions, By mouth. 2 tab in AM, 1.5 midday, 2 in evening;for pain. IDC10: G90.5 CRPS. 28 day supply. [facility]., # 154 tablet, 0 Refills, Maintenance, pain, 07/17/23 23:14:00 EDT,[facility], August partial fill., 07/17/23... Start Date: 07/17/23 [...] Date: 02/16/22 Status: Ordered PEN NEEDLES MIS 30FW2YM PEN NEEDLES MIS 64HF7MF, See Instructions, # 100 each, 1 Refills, Maintenance, USE DAILY TYPE 2 DIABETES MELLITUS ON INSULIN WITH PEN, 05/28/23 20:14:00 EST, 188, cm, 05/09/23 12:59:00 EST, Height, 126.09, kg, 04/26/23 13:06:00 EST, Dry Weight Start Date: 05/28/23 Status: Ordered PEN NEEDLES MIS 78YP0OH PEN NEEDLES MIS [id number], See Instructions, # 100 each, 5 Refills, Maintenance, USE DAILY TYPE 2 DIABETES MELLITUS ON INSULIN WITH PEN, 08/25/22 16:39:00 EDT, 188, cm, 07/18/22 14:01:00 EDT, Height, 122.63, kg, 11/22/21 16:37:00 EDT, Dry Weight Start Date: 08/25/22 Status: Ordered PEN NEEDLES MIS [id number] PEN NEEDLES MIS [id number], See Instructions, # 150 each, 5 Refills, Maintenance, USE 2-5X/DAY TYPE 2 DIABETES MELLITUS ON LANTUS AND HUMALOG INSULIN WITH PEN, 04/30/23 9:00:00 EST, 188, cm, 04/26/23 13:06:00 EST, Height, 126.09, kg, 04/26/23 13:06:00 ES... Start Date: 04/30/23 Status: Ordered Pen [place], 31 G x 8 mm BD Ultra [...] 02/18/23 19:20:00 EST, Route to Pharmacy Electronically, [facility], 188, cm, 01/30/23 13:26:00 EDT, Height, [...] tablet, 5 Refills, Maintenance, 12/19/22 20:41:00 EDT, [facility], 30, TAKE 1 TABLET BY MOUTH EVERY DAY, 188, cm, 10/19/22 13:16:00 EDT, Height, 122.63, kg, 11/22/21 16:37:00 EDT, Dry Weight Start Date: 12/19/22 Status: Ordered tamsulosin 0.4 mg oral capsule 0.8 mg, 2, capsule, By Mouth, Daily, dose increase, # 60 capsule, Refills 11, Tot. Refills 11, Maintenance, 07/27/22 11:57:00 EDT, Route to Pharmacy Electronically, [facility], 188, cm, 07/18/22 14:01:00 EDT, Height, 122.63, kg, 11/22/21 16:... Start Date: 07/27/22 Status: Ordered Test Strips See Instructions, # 100 each, Refills 5, Tot. Refills 5, Maintenance, Precision Ganga strips (for Freestyle Tatyana glucometer). Type 2 diabetes mellitus on insulin (E11, Z79.4). Test 2-4x/day if symptoms, or sensor concerns., 02/08/23 10:36:00 EDT, [place]... Start Date: 02/08/23 Status: Ordered Test Strips [...] Intramuscular, Every 14 days, IM or subcutaneous. [facility]., # 2 mL, 5 Refills, Maintenance, 05/04/23 13:34:00 EST, [facility], 188, cm, 04/26/23 13:06:00 EST, Height, [...] mL, 11 Refills, Maintenance, 02/08/23 10:15:00 EDT,Solution, [facility], replaces Lantus due to insurance coverage, 188, cm, 01/30/23 13:26:00 EDT, Height, 126, kg, 01/30/23 13:26:00 EDT, Dry... Start Date: 02/08/23 Status: Ordered Tylenol Extra Strength 500 mg oral tablet 2 tablet = 1,000 mg, By Mouth, 3 times a day, # 30 tablet, 11 Refills, Maintenance, 03/24/21 21:00:00 EST, [facility], 188, cm, 03/22/21 14:17:00 EST, Height, 125.2, kg, 06/20/20 14:28:00 EST, Dry Weight Start Date: 03/24/21 Status: Ordered Vitamin D3 1000 intl units oral tablet 1 tablet, By Mouth, Daily, # 90 tablet, 4 Refills, Maintenance, 04/01/23 22:28:00 EST, [facility], 188, cm, 01/30/23 13:26:00 EDT, Height, [...] ? chr regional pain syndrome 4s/p Modified [place] procedure, repair of conjoined tendon of [...] Name: Shoaib An RN Position: [facility] RN Supv Member Role: Primary Care Nurse Name: Vamshi Man MD Position: [facility] Physician - Primary Care Member Role: PCP Address: Address: [address] [place] [address]- Name: Luz Potter Position: [facility] Outreach Member Role: Lifetime Consulting Physician Name: Miki Rodriguez MD Position: [facility] Renal MD Member Role: Lifetime Consulting Physician Address: Address: [address] [facility] [address] [facility] [address] [facility] [place] [address]- Care Team Related Persons Name: BRANDON MTZ Address: home [address] [place] [address] Name: BRANDON BARKER Address: home [address] [place] [address] Name: ROSALINDA BERTRAND Address: home [address] [place] [address]
--- OUTSIDE RECORDS SUMMARY | 2023-10-11 08:11 | XMS_ITS | Continuity of Care Document ---
Author Organization [facility] Address [address] [place] [address]- Care Team Providers Care Herb Digger Name Role Phone Vamshi Man MD Primary Care Physician [facility] Date[facility]): 12[facility]19 - 12/31/19 [facility]/[address] [address]- [facility] Allergies, Adverse Reactions, Alerts Substance [...] Comment: [11/27/2017] REceived at [facility] at [place], [place]; ordered by Dr Michael Oliveira 12Location [...] 11/04/19 15:57:00 EDT, Route to Pharmacy Electronically, [facility], 185, cm, 06/24/19 13:00:00 EDT, Height, [...] 1 Refills, Maintenance, 06/24/19 15:23:00 EDT, Cream, [facility], 1 application Topically 2 times a day,Instr:apply to penile rash, 185, cm, 06/24/19 13:00:00 EDT, [facility]... Start Date: 06/24/19 Status: Ordered Cozaar 100 mg oral tablet 1 tablet = 100 mg, By Mouth, Daily in AM, # 30 tablet, 11 Refills, Maintenance, 09/16/19 15:00:00 EDT, Tablet, [facility], 185, cm, 06/24/19 13:00:00 EDT, Height, 127.72, kg, 05/06/19 13:41:00 EST, Dry Weight Start Date: 09/16/19 Status: Ordered diclofenac 1% topical gel = 2 Gm, Topically, 4 times a day, PRN for pain, (dominican) not to exceed: 16 gm/day/joint lower limb8 gm/day/joint of upper limb 32 gm/day, # 100 Gm, 1 Refills, Maintenance, 10/27/19 10:15:00 EDT, Gel, [facility], 185, cm, 06/24/19 13:00:... Start Date: [...] 1 Refills, Maintenance, 12/02/19 10:07:00 EDT, Solution, [facility], duplicate rx. remaining refills sent. original [...] tablet, 1 Refills, Maintenance, 04/15/19 5:02:00 EST, [facility], 185, cm, 02/12/19 9:28:00 EDT, Height, 123.7, kg, 08/22/18 12:59:00 EDT, Dry Weight Start Date: 04/15/19 Status: Ordered Lantus Solostar Pen 100 units/mL subcutaneous solution = 90 units, Subcutaneous Infusion, Daily at bedtime, # 15 mL, 5 Refills, Maintenance, 10/09/19 15:22:00 EDT, [facility], duplicate rx. original rx sent 03/18/19. remaining refills sent, 185,cm, 06/24/19 13:00:00 EDT, Height, 127.72, kg, 04/17... Start Date: 10/09/19 Status: Ordered latanoprost 0.005% ophthalmic solution 1 drops, Eyes, Both, Daily at bedtime, cover gap- Reading Professor Dr Broussard, # 2.5 mL, 1 Refills, Maintenance, 02/25/14 10:47:09, Ophth Solution, 1 drops Eyes, Both Daily at bedtime,Instr:cover gap-Reading Professor Dr Broussard Start Date: 02/25/14 Status: Ordered lidocaine 4% topical cream 1 application, Topically, 3 times a day, may interchange 3-5% cream or ointment or 2% gel per insurance coverage., # 60 Gm, 5 Refills, Maintenance, 10/28/19 20:11:00 EDT, [facility], 1 application Topically 3 times a day,Instr:august interchang... Start Date: 10/28/19 Status: Ordered Linzess 145 mcg oral capsule TAKE 1 CAPSULE BY MOUTH 30 MINUTES BEFORE MEAL (constipation) Start Date: 03/31/17 Status: Ordered Lipitor 40 mg oral tablet 1 tablet = 40 mg, By Mouth, Daily, # 30 tablet, 5 Refills, Maintenance, 11/04/19 15:57:00 EDT, [facility], 185, cm, 06/24/19 13:00:00 EDT, Height, 127.72, kg, 05/06/19 13:41:00 EST, Dry Weight Start Date: 11/04/19 Status: Ordered metFORMIN 500 mg oral tablet 1 tablet = 500 mg, By Mouth, 2 times a day, with meals. Replaces metformin ER, # 60 tablet, 11 Refills, Maintenance, 06/24/19 15:02:00 EDT, Tablet, [facility], 185, cm, 06/24/19 13:00:00 EDT, Height, [...] pain. IDC10: G90.5 CRPS. 28 day supply. [facility]., # 154 tablet, 0 Refills, Maintenance, [...] Start Date: 05/15/18 Status: Ordered nystatin topical 257652 u/gm cream 1 application, Topically, 2 times a day, for fungal rash, # 30 Gm, 0 Refills, Maintenance, 09/15/2014:01:00 EDT, Cream, [facility], 1 application Topically 2 times a day,x14 days,Instr:forfungal rash, 185, cm, 06/24/19 13:00:00 EDT, Height... Start Date: 09/16/19 Stop Date: 09/30/19 Status: Ordered nystatin-triamcinolone topical 821075 u/gm-0.1% ointment 1 applicator, Topically, 3 times [...] EDT Start Date: 08/20/18 Status: Ordered Pen [place], 31 G x 8 mm BD Ultra [...] 11/29/18 11:27:43 EDT, Route to Pharmacy Electronically, [id number], [facility] Start Date: 11/29/18 Status: Ordered Testosterone Cypionate = 0.75 mg, Intramuscular, Every 14 days, Adm. today to RG Lot [id number] exp: 02/2020, 0 Refills, Maintenance, 11/14/18 14:06:08 EDT Start Date: 11/14/18 Status: Ordered testosterone enanthate 200 mg/mL intramuscular solution 0.75 mL, Intramuscular, Every 14 days, [facility], # 5 mL, 5 Refills, Maintenance, 05/06/19 15:06:00 EST, [facility], 185, cm, 05/06/19 13:41:00 EST, Height, 127.72, kg, 05/06/19 13:41:00 EST, Dry Weight Start Date: 05/06/19 Status: Ordered tiZANidine 4 mg oral tablet 4 mg, 1, tablet, By Mouth, 3 times a day, PRN, # 90 tablet, Refills 11, Tot. Refills 11, Maintenance, as needed for muscle spasm, 02/04/19 21:34:51 EDT, Route to Pharmacy Electronically, NCPDP_[id number], [facility] Start Date: 02/04/19 Status: Ordered Problem [...]
--- OUTSIDE RECORDS SUMMARY | 2023-10-11 08:11 | XMS_ITS | Continuity of Care Document ---
Author Organization [facility] Address [address] [place] [address]- Care Team Providers Care Lunchroom Operator Name Role Phone Vamshi Man MD Primary Care Physician [phone] [facility]): 06[facility]20 - 07/15/20 [facility]/[address] [address]- Allergies, Adverse Reactions, Alerts Substance Reaction Severity [...] 12Result Comment: [11/27/2017] REceived at [facility] at [place], [place]; ordered by Dr Michael Oliveira 13Location [...] 03/30/20 21:31:00 EST, Route to Pharmacy Electronically, [facility], [facility] rx. original sent 11/04/19. remaining refills sent., 185, cm, 02/25/20 10:29:00 EST, Hei... Start Date: 03/30/20 Status: Ordered AutoCPAP 9-18 with heated humidification AutoCPAP 9-18 with heated humidification, See Instructions, # 1 each, Refills 0, Tot. Refills 0, Maintenance, use overnight and naps from [facility], 11/04/18 12:28:22 EDT, Compound Start Date: [...] capsule, 3 Refills, Maintenance, 03/30/20 21:36:00 EST, [facility], 185, cm, 02/25/20 10:29:00 EST, Height, 126.81, kg, 02/25/20 10:29:00 EST, Dry Weight Start Date: 03/30/20 Status: Ordered clotrimazole 1% topical cream 1 application, Topically, 2 times a day, apply to penile rash, # 30 Gm, 2 Refills, Maintenance, 01/07/20 14:49:00 EDT, Cream, [facility], 1 application Topically 2 times a day,Instr:apply to penile rash, 185, cm, 01/07/20 13:55:00 EDT, [facility]... Start Date: 01/07/20 Status: Ordered Cozaar 100 mg oral tablet 1 tablet = 100 mg, By Mouth, Daily in AM, # 30 tablet, 5 Refills, Maintenance, 03/15/20 17:08:00 EST, Tablet, [facility], duplicate rx. original sent 09/16/19. remaining [...] 06/25/20 15:39:00 EST, Route to Pharmacy Electronically, [facility], Partial f... Start Date: 06/25/20 Status: Ordered diclofenac 1% topical gel = 2 Gm, Topically, 4 times a day, PRN for pain, (hong konger) not to exceed: 16 gm/day/joint lower limb8 gm/day/joint of upper limb 32 gm/day may interchange for cream, # 100 Gm, 5 Refills, Maintenance,07/08/20 15:35:00 EDT, Gel, [facility] Start Date: 07/08/20 Status: Ordered docusate [...] 11 Refills, Maintenance, 02/15/20 21:05:00 EST, Solution, [facility], 185, cm, 01/07/20 13:55:00 EDT, Height, [...] mL, 3 Refills, Maintenance, 07/08/20 15:42:00 EDT, [facility], Duplicate rx-Original rx sent 06/22/20. Resent., 188, cm, 07/08/20 13:42:00 EDT, Height, 125.2, kg, 06/20/20 14:28:00 EST,... Start Date: 07/08/20 Status: Ordered latanoprost 0.005% ophthalmic solution 0 Refills, Maintenance, 05/11/20 16:57:00 EST Start Date: 05/11/20 Status: Ordered Lipitor 40 mg oral tablet 1 tablet = 40 mg, By Mouth, Daily, # 90 tablet, 3 Refills, Maintenance, 03/30/20 21:30:00 EST, [facility], duplicate rx. original sent 11/04/19. remaining [...] 3 Refills, Maintenance, 07/08/20 15:40:00 EDT, Tablet, [facility], Duplicate rx-Original rx sent06/22/20. Resent., 188, cm, 07/08/20 13:42:00 EDT, He... Start Date: 07/08/20 Status: Ordered methadone 10 mg oral tablet See Instructions, By mouth. 2 tab in AM, 1.5 midday, 2 in evening;for pain. IDC10: G90.5 CRPS. 28 day supply. [facility]., # 154 tablet, 0 Refills, Maintenance, pain, 07/20/20 15:43:00 EDT,[facility], May partial fill., 188, cm,... Start Date: 07/20/20 Status: Ordered methadone 10 mg oral tablet See Instructions, By mouth. 2 tab in AM, 1.5 midday, 2 in evening;for pain. IDC10: G90.5 CRPS. 28 day supply. [facility]., # 154 tablet, 0 Refills, Maintenance, pain, 08/17/20 15:47:00 EDT,[facility], May partial fill., 08/17/20... Start Date: [...] Start Date: 05/15/18 Status: Ordered nystatin-triamcinolone topical 056976 u/gm-0.1% ointment 1 applicator, Topically, 3 times a day, to foreskin area FOR 3 DAYS then switch to other antifungal, # 15 Gm, 1 Refills, Maintenance, 07/08/20 15:34:00 EDT, [facility], 1 applicator Topically 3 times a [...] EDT Start Date: 08/20/18 Status: Ordered Pen [place], 31 G x 8 mm BD [...] 03/30/20 21:31:00 EST, Route to Pharmacy Electronically, [facility], 185, cm, 02/25/20 10:29:00 EST, Height, [...] solution 0.75 mL, Intramuscular, Every 14 days, [facility], # 5 mL, 5 Refills, Maintenance, 01/11/20 21:30:00 EDT, [facility], 185, cm, 01/07/20 13:55:00 EDT, Height, 127.72, kg, 05/06/19 13:41:00 EST, Dry Weight Start Date: 01/11/20 Status: Ordered tiZANidine 4 mg oral tablet 4 mg, 1, tablet, By Mouth, 3 times a day, PRN, # 90 tablet, Refills 11, Tot. Refills 11, Maintenance, as needed for muscle spasm, 07/08/20 15:40:00 EDT, Route to Pharmacy Electronically, [facility], 188, cm, 07/08/20 13:42:00 EDT, Height, [...] ? chr regional pain syndrome 4s/p Modified [place] procedure, repair of conjoined tendon of extensor [...]
--- OUTSIDE RECORDS SUMMARY | 2023-10-11 08:11 | XMS_ITS | Continuity of Care Document ---
Author Organization [facility] Address Unknown Care Team Providers Care Restaurant Assistant Manager Name Role Phone Vamshi Man MD Primary Care Physician Encounter [facility] [place] Date(s): 11/17/20 - 12/31/20 [facility] Attending Physician: Vamshi Man MD [...] Bertrand 12Result Comment: [11/27/2017] REceived at [facility] at [place], [place]; ordered by Dr Michael Oliveira 13Location [...] tablet, 5 Refills, Maintenance, 11/18/20 15:30:00 EDT, [facility], 188, cm, 09/22/20 8:33:00 EDT, Height, [...] capsule, 3 Refills, Maintenance, 03/30/20 21:36:00 EST, [facility], 185, cm, 02/25/20 10:29:00 EST, Height, 126.81, kg, 02/25/20 10:29:00 EST, Dry Weight Start Date: 03/30/20 Status: Ordered clotrimazole 1% topical cream 1 application, Topically, 2 times a day, apply to penile rash, # 30 Gm, 2 Refills, Maintenance, 01/07/20 14:49:00 EDT, Cream, [facility], 1 application Topically 2 times a day,Instr:apply to penile rash, 185, cm, 01/07/20 13:55:00 EDT, [facility]... Start Date: 01/07/20 Status: Ordered Cozaar 100 mg oral tablet 1 tablet = 100 mg, By Mouth, Daily in AM, # 30 tablet, 11 Refills, Maintenance, 09/22/20 9:41:00 EDT, Tablet, [facility], duplicate rx. original sent 09/16/19. remaining [...] 06/25/20 15:39:00 EST, Route to Pharmacy Electronically, [facility], Partial f... Start Date: 06/25/20 Status: Ordered diclofenac 1% topical gel = 2 Gm, Topically, 4 times a day, PRN for pain, (solomon islander) not to exceed: 16 gm/day/joint lower limb8 gm/day/joint of upper limb 32 gm/day may interchange for cream, # 100 Gm, 5 Refills, Maintenance,07/08/20 15:35:00 EDT, Gel, [facility] Start Date: 07/08/20 Status: Ordered docusate [...] 11 Refills, Maintenance, 02/15/20 21:05:00 EST, Solution, [facility], 185, cm, 01/07/20 13:55:00 EDT, Height, [...] 10:37:00 EDT, 12/22/20 10:36:00 EDT, Ophth Solution, [facility], Partial fill upon patient request if the prescriptionis for a schedule II opioid drug., 1 drops Eyes, Anival... Start Date: 12/22/20 Stop Date: 01/21/21 Status: Ordered Lantus Solostar Pen 100 units/mL subcutaneous solution = 90 units, Subcutaneous Infusion, Daily at bedtime, # 30 mL, 3 Refills, Maintenance, 07/08/20 15:42:00 EDT, [facility], Duplicate rx-Original rx sent 06/22/20. Resent., 188, cm, 07/08/20 13:42:00 EDT, Height, 125.2, kg, 06/20/20 14:28:00 EST,... Start Date: 07/08/20 Status: Ordered latanoprost 0.005% ophthalmic solution 0 Refills, Maintenance, 05/11/20 16:57:00 EST Start Date: 05/11/20 Status: Ordered lidocaine 5% topical ointment See Instructions, 1 APPLICATION TOPICALLY 3 TIMES A DAY, # 70.88 Gm, 4 Refills, Acute, [facility], 14, 1 APPLICATION TOPICALLY 3 TIMES A DAY, 188, cm, 09/22/20 8:33:00 EDT, Height, 125.2, kg, 06/20/20 14:28:00 EST, Dry Weight Start Date: 11/08/20 Status: Ordered Lipitor 40 mg oral tablet 1 tablet = 40 mg, By Mouth, Daily, # 90 tablet, 3 Refills, Maintenance, 03/30/20 21:30:00 EST, [facility], duplicate rx. original sent 11/04/19. remaining refill sent., 185, cm, 02/25/20 10:29:00 EST, Height, 126.81, kg, 02/25/20 10:29:00 EST... Start Date: 03/30/20 Status: Ordered LORazepam 1 mg oral tablet See Instructions, PRN for anxiety, 2 tablets By Mouth 1 hours prior to MRI, # 2 tablet, 0 Refills, Acute 09/22/21 9:45:00 EDT, 09/22/20 9:43:00 EDT, Tablet, [facility], Partial fill upon [...] tablet, 0 Refills, Maintenance, pain, 01/04/21 10:39:00 EDT,[facility], May partial fill., 01/04/21... Start Date: 01/04/21 Status: Ordered methadone 10 mg oral tablet See Instructions, By mouth. 2 tab in AM, 1.5 midday, 2 in evening;for pain. IDC10: G90.5 CRPS. 28 day supply. [facility]., # 154 tablet, 0 Refills, Maintenance, pain, 02/01/21 10:39:00 EDT,[facility], May partial fill., 02/01/21... Start Date: 02/01/21 [...] Start Date: 05/15/18 Status: Ordered nystatin-triamcinolone topical 075364 u/gm-0.1% ointment 1 applicator, Topically, 3 times a day, to foreskin area FOR 3 DAYS then switch to other antifungal, # 15 Gm, 1 Refills, Maintenance, 07/08/20 15:34:00 EDT, [facility], 1 applicator Topically 3 times a day,Instr:to foreskin area FOR 3 DAYS t... Start Date: 07/08/20 Status: Ordered olopatadine 0.1% ophthalmic solution 1 drops, Eyes, Both, 2 times a day, 0 Refills, Maintenance, 01/01/16 18:36:52 EDT Start Date: 01/01/16 Status: Ordered ondansetron 4 mg oral tablet TAKE 1 TABLET BY MOUTH EVERY 8 HOURS NEEDED FOR NAUSEA Idlaia Sandoval Start Date: 08/20/18 Status: Ordered PARoxetine 40 mg oral tablet 40 mg, 1, tablet, By Mouth, Daily, # 30 tablet, Maintenance, 08/20/18 21:41:59 EDT Start Date: 08/20/18 Status: Ordered Pen [place], 31 G x 8 mm BD Ultra [...] 03/30/20 21:31:00 EST, Route to Pharmacy Electronically, [facility], 185, cm, 02/25/20 10:29:00 EST, Height, [...] solution 0.75 mL, Intramuscular, Every 14 days, [facility], # 5 mL, 5 Refills, Maintenance, 08/29/20 21:33:00 EDT, [facility], 188, cm, 07/08/20 13:42:00 EDT, Height, 125.2, kg, 06/20/20 14:28:00 EST, Dry Weight Start Date: 08/29/20 Status: Ordered tiZANidine 4 mg oral tablet 4 mg, 1, tablet, By Mouth, 3 times a day, PRN, # 90 tablet, Refills 11, Tot. Refills 11, Maintenance, as needed for muscle spasm, 07/08/20 15:40:00 EDT, Route to Pharmacy Electronically, [facility], 188, cm, 07/08/20 13:42:00 EDT, Height, [...] elbow(Confirmed) 2010 Active Chronic back pain(Confirmed) Active DAHRA (obstructive sleep apnea)(Confirmed) 03/18/04 Active Plantar fasciitis(Confirmed) Active Shoulder impingement syndrom 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 3R Foot- ? chr regional pain syndrome 4s/p Modified [place] procedure, repair of conjoined tendon of extensor [...]
--- OUTSIDE RECORDS SUMMARY | 2023-10-11 08:11 | XMS_ITS | Continuity of Care Document ---
Author Organization [facility] Address [address] [place] [address]- Care Team Providers Care Delivery Lead Name Role Phone Vamshi Man MD Primary Care Physician Encounter [facility] [place] Date(s): 09/24/22 - 10/24/22 [facility] [address]- [place] Allergies, Adverse Reactions, Alerts Substance Reaction Severity Status penicillin 1 rash Resolved Latex RASH Active Other Food Allergy fresh peaches - itch y mouth, throat and lips swell Active 1rash per mother as child. Did take a penicillin for treatment of H pylori per pt w/o problem. Immunizations Given and Recorded Vaccine Date Status Refusal Reason [id number] 12y+ bivalent booster vax 02/16/22 Given pneumococcal 20-valent conjugate vaccine 02/16/22 Given Influenza Virus Vaccine (oldterm) 1 01/27/22 Recor ded Influenza Virus Vaccine (oldterm) 01/26/21 Recorde d SARS-CoV-2 mRNA ([id number]) vax 11/11/21 Given SARS-CoV-2 (COVID-19) mRNA BNT-162b2 [...] Elissa Bertrand 13Result Comment: [11/27/2017] REceived at [facility] [place], [place]; ordered by Dr Michael Oliveira 14Location [...] tablet, 5 Refills, Maintenance, 09/06/22 21:30:00 EDT, [facility], 188, cm, 07/18/22 14:01:00 EDT, Height, 122.63, kg, 11/22/21 16:37:00 EDT, Dry Weight Start Date: 09/06/22 Status: Ordered atorvastatin 40 mg oral tablet 1 tablet, By Mouth, Daily, # 90 tablet, 1 Refills, Maintenance, 04/10/22 12:34:00 EST, [facility], 188, cm, 02/16/22 13:07:00 EDT, Height, [...] 0 Refills, Maintenance, 05/15/22 16:24:00 EST, Tablet, [facility], Partial fill upon patient request [...] 2 Refills, Maintenance, 04/27/22 23:43:00 EST, Cream, [facility], 1 application Topically 2 times a day,Instr:apply to penile rash, 188, cm, 04/27/22 13:44:00 EST, [facility]... Start Date: 04/27/22 Status: Ordered diclofenac 1% topical gel = 2 Gm, Topically, 4 times a day, PRN for pain, (maltese) not to exceed: 16 gm/day/joint lower limb8 gm/day/joint of upper limb 32 gm/day may interchange for cream, # 100 Gm, 11 Refills, Maintenance, 04/15/22 13:02:00 EST, Gel, [facility]... Start Date: 04/15/22 Status: Ordered docusate [...] 0 Refills, Maintenance, 09/03/22 13:58:00 EDT, Tablet, [facility], 188, cm, 07/18/22 14:01:00 EDT, Height, 122.63, kg, 11/22/21... Start Date: 09/03/22 Status: Ordered fexofenadine 60 mg oral tablet 1 tablet = 60 mg, By Mouth, 2 times a day, PRN for allergy symptoms, # 20 tablet, 0 Refills, Maintenance, 09/03/22 13:58:00 EDT, Tablet, [facility], Partial fill upon patient request if [...] May cause drowsiness, do notdrive after taking Belizean, # 28 tablet, 0 Refills, Maintenance, 04/07/22 15:51:00 EST, [facility], 188, cm, 02/16/22 13:07:00 EDT, Heigh... Start [...] 11 Refills, Maintenance, 11/28/21 21:27:00 EDT, Solution, [facility], 188, cm, 11/22/21 16:37:00 EDT, Height, [...] mL, 5 Refills, Maintenance, 08/02/22 14:51:00 EDT, [facility], 188, cm, 07/18/22 14:01:00 EDT, Height, 122.63,kg, 11/22/21 16:37:00 EDT, Dry Weight Start Date: 08/02/22 Status: Ordered latanoprost 0.005% ophthalmic solution 0 Refills, Maintenance, 05/11/20 16:57:00 EST Start Date: 05/11/20 Status: Ordered lidocaine 5% topical ointment See Instructions, PRN Pain , Moderate, 1 APPLICATION TOPICALLY 3 TIMES A DAY, # 50 Gm, 5 Refills, Maintenance, 12/22/21 7:28:00 EDT, [facility], same Rx was sent 11/11 w/ [...] 0 Refills, Maintenance, 01/12/22 7:27:00 EDT, Tablet, [facility], 188, cm, 12/26/21 14:06:00 EDT, Height, 122.63, kg, 11/22/21 16:37:00 EDT, Dry Weight Start Date: 01/12/22 Status: Ordered losartan 100 mg oral tablet See Instructions, TAKE 1 TABLET BY MOUTH DAILY IN AM, # 30 tablet, 4 Refills, Maintenance, 10/06/2315:25:00 EDT, [facility], 188, cm, 07/18/22 14:01:00 EDT, Height, 122.63, kg, 11/22/21 16:37:00 EDT, Dry Weight Start Date: 10/05/22 Status: Ordered LUBRIC TEARS CALE 0.4-0.3% Milliliters INSTILL 1 DROP FOUR TIMES DAILY EACH EYE Start Date: 05/11/20 Status: Ordered magnesium oxide 400 mg oral tablet 1 tablet = 400 mg, By Mouth, Daily, # 30 tablet, 11 Refills, Maintenance, 04/27/22 15:29:00 EST, Tablet, [facility], Partial fill upon patient request if the prescription is for a schedule II opioid drug., 188, cm, 04/27/22 13:44:00 EST, Hei... Start Date: 04/27/22 Status: Ordered meloxicam 15 mg oral tablet 1 tablet = 15 mg, By Mouth, Daily, Take with food PRN back pain Bel[place]an, # 14 tablet, 0 Refills, Maintenance, 11/25/21 13:26:00 EDT, [facility], Partial fill upon patient request if the prescription is for a schedule II opioid drug., 188,... Start Date: 11/25/21 Stop Date: 12/09/21 Status: Ordered metFORMIN 750 mg oral tablet, extended release 1 tablet = 750 mg, By Mouth, Daily, [replaces the metformin 500mg bid], # 30 tablet, 11 Refills, Maintenance, 11/22/21 17:53:00 EDT, ER Tablet, [facility], Partial fill upon patient requestif the prescription is for a schedule II opioid alessandra... Start Date: 11/22/21 Status: Ordered methadone 10 mg oral tablet See Instructions, By mouth. 2 tab in AM, 1.5 midday, 2 in evening;for pain. IDC10: G90.5 CRPS. 28 day supply. [facility]., # 154 tablet, 0 Refills, Maintenance, pain, 10/10/22 19:56:00 EDT,[facility], May partial fill., 10/10/22... Start Date: 10/10/22 Status: Ordered methadone 10 mg oral tablet See Instructions, By mouth. 2 tab in AM, 1.5 midday, 2 in evening;for pain. IDC10: G90.5 CRPS. 28 day supply. [facility]., # 154 tablet, 0 Refills, Maintenance, pain, 09/12/22 19:56:00 EDT,[facility], May partial fill., 09/12/22... Start Date: 09/12/22 Status: Ordered methadone 10 mg oral tablet See Instructions, By mouth. 2 tab in AM, 1.5 midday, 2 in evening;for pain. IDC10: G90.5 CRPS. 28 day supply. [facility]., # 154 tablet, 0 Refills, Maintenance, pain, 08/15/22 19:56:00 EDT,[facility], August partial fill., 08/15/22... Start Date: 08/15/22 Status: Ordered methadone 10 mg oral tablet See Instructions, By mouth. 2 tab in AM, 1.5 midday, 2 in evening;for pain. IDC10: G90.5 CRPS. 28 day supply. [facility]., # 154 tablet, 0 Refills, Maintenance, pain, 04/25/22 23:30:00 EST,[facility], August partial fill., 04/25/22... Start Date: 04/25/22 Status: Ordered Metoclopramide = 10 mg, By Mouth, 3 times a day before meals and bedtime, 0 Refills, Maintenance, 08/20/18 13:55:26 EDT Start Date: 08/20/18 Status: Ordered metoclopramide 5 mg oral tablet 1 tablet = 5 mg, By Mouth, 4 times a day, as needed 30 minutes before meals, # 15 tablet, 0 Refills, Acute 11/13/22 17:24:00 EDT, 09/24/22 17:22:00 EDT, Tablet, [facility], 188, cm, 07/18/22 14:01:00 EDT, Height, 122.63, kg, 11/22/21 16:37:0... Start Date: 09/24/22 Stop Date: 11/13/22 Status: Ordered multivitamin Multiple Vitamins oral tablet 1 tablet, By Mouth, Daily, B complex multivitamin, # 30 tablet, 11 Refills, Maintenance, 11/22/21 17:58:00 EDT, [facility], Partial fill upon patient [...] 1 Refills, Soft Stop, 02/16/22 23:38:00 EDT, [facility], 188, cm, 02/16/22 13:07:00 EDT, Height,122.63, [...] Date: 02/16/22 Status: Ordered PEN NEEDLES MIS [id number] PEN NEEDLES MIS [id number], See Instructions, # 100 each, 5 Refills, Maintenance, USE DAILY TYPE 2 DIABETES MELLITUS ON INSULIN WITH PEN, 08/25/22 16:39:00 EDT, 188, cm, 07/18/22 14:01:00 EDT, Height, 122.63, kg, 11/22/21 16:37:00 EDT, Dry Weight Start Date: 08/25/22 Status: Ordered Pen [place], 31 G x 8 mm BD Ultra [...] mL, 11 Refills, Maintenance, 04/27/22 23:40:00 EST, [facility], 188, cm, 04/27/22 13:44:00 EST, Height, 122.63, kg, 11/22/21 16:37:00 EDT,... Start Date: 04/27/22 Status: Ordered Singulair 10 mg oral tablet 10 mg, 1, tablet, By Mouth, Daily, # 90 tablet, Refills 3, Tot. Refills 3, Maintenance, 03/30/20 21:31:00 EST, Route to Pharmacy Electronically, [facility], 185, cm, 02/25/20 10:29:00 EST, Height, 126.81, kg, 02/25/20 10:29:00 EST, Dry Weight Start Date: 03/30/20 Status: Ordered tamsulosin 0.4 mg oral capsule 0.8 mg, 2, capsule, By Mouth, Daily, dose increase, # 60 capsule, Refills 11, Tot. Refills 11, Maintenance, 07/27/22 11:57:00 EDT, Route to Pharmacy Electronically, [facility], 188, cm, 07/18/22 14:01:00 EDT, Height, [...] Intramuscular, Every 14 days, IM or subcutaneous. [facility]., # 2 mL, 5 Refills, Maintenance, 07/26/22 21:21:00 EDT, [facility], 188, cm, 07/18/22 14:01:00 EDT, Height, 122.63, kg, 11/22/21 16:37:00 EDT, Dry Weight Start Date: 07/26/22 Status: Ordered tiZANidine 4 mg oral tablet 4 mg, 1, tablet, By Mouth, 3 times a day, PRN, # 90 tablet, Refills 11, Tot. Refills 11, Maintenance, as needed for muscle spasm, 08/18/22 8:03:00 EDT, Route to Pharmacy Electronically, [facility], 188, cm, 07/18/22 14:01:00 EDT, Height, 122... Start Date: 08/18/22 Status: Ordered traZODone 100 mg oral tablet TAKE ONE TO TWO TABLETS BY MOUTH AT BEDTIME NEEDED SZayra Morales Start Date: 05/11/20 Status: Ordered Tylenol Extra Strength 500 mg oral tablet 2 tablet = 1,000 mg, By Mouth, 3 times a day, # 30 tablet, 11 Refills, Maintenance, 03/24/21 21:00:00 EST, [facility], 188, cm, 03/22/21 14:17:00 EST, Height, 125.2, kg, 06/20/20 14:28:00 EST, Dry Weight Start Date: 03/24/21 Status: Ordered Vitamin D3 1000 intl units oral tablet 1 tablet, By Mouth, Daily, for 30 days, # 30 tablet, 11 Refills, Physician Stop 10/30/22 17:07:00 EDT, 11/04/21 17:07:00 EDT, [facility], 188, cm, 09/15/21 12:49:00 EDT, Height, [...] Team Personnel Name: Shoaib An RN Position: [facility] RN Supv Member Role: Primary Care Nurse Name: Vamshi Man MD Position: [facility] Physician - Primary Care Member Role: PCP Address: Address: [address] [place] [address]- Name: Miki Rodriguez MD Position: [facility] Renal MD Member Role: Lifetime Consulting Physician Address: Address: [address] [facility] [place] [address]- Care Team Related Persons Name: BRANDON MTZ Address: home [address] [place] [address] Name: BRANDON BARKER Address: home [address] [place] [address] Name: ROSALINDA BERTRAND Address: [address] [address]
--- OUTSIDE RECORDS SUMMARY | 2023-10-11 08:11 | XMS_ITS | Continuity of Care Document ---
Author Organization [facility] Address [address] [place] [address]- Care Team Providers Care Cold Roll Catcher Name Role Phone Vamshi Man MD Primary Care Physician Encounter [facility] Date(s): 03/02/20 - 04/01/20 [facility]/[address] [address]- Allergies, Adverse Reactions, Alerts Substance Reaction Severity Status penicillin 1 rash Resolved Latex RASH Active Other Food Allergy fresh peaches - itch y mouth, throat and lips swell Active 1rash per mother as child. Did take a penicillin for treatment of H pylori per pt w/o problem. Immunizations Given and Recorded Vaccine Date Status Refusal Reason influenza virus vaccine, inactivated 01/20/20 Give n [...] Elissa Bertrand 11Result Comment: [11/27/2017] REceived at [facility] [place], [place]; ordered by Dr Michael Oliveira 12Location [...] 03/30/20 21:31:00 EST, Route to Pharmacy Electronically, [facility], [place] rx. original sent 11/04/19. remaining refills sent., [...] capsule, 3 Refills, Maintenance, 03/30/20 21:36:00 EST, [facility], 185, cm, 02/25/20 10:29:00 EST, Height, 126.81, kg, 02/25/20 10:29:00 EST, Dry Weight Start Date: 03/30/20 Status: Ordered clotrimazole 1% topical cream 1 application, Topically, 2 times a day, apply to penile rash, # 30 Gm, 2 Refills, Maintenance, 01/07/20 14:49:00 EDT, Cream, [facility], 1 application Topically 2 times a day,Instr:apply to penile rash, 185, cm, 01/07/20 13:55:00 EDT, [facility]... Start Date: 01/07/20 Status: Ordered Cozaar 100 mg oral tablet 1 tablet = 100 mg, By Mouth, Daily in AM, # 30 tablet, 5 Refills, Maintenance, 03/15/20 17:08:00 EST, Tablet, [facility], duplicate rx. original sent 09/16/19. remaining refills sent., 185, cm, 02/25/20 10:29:00 EST, Height, 126.81, kg, ... Start Date: 03/15/20 Status: Ordered diclofenac 1% topical gel = 2 Gm, Topically, 4 times a day, PRN for pain, (singaporean) not to exceed: 16 gm/day/joint lower limb8 gm/day/joint of upper limb 32 gm/day, # 100 Gm, 1 Refills, Maintenance, 10/27/19 10:15:00 EDT, Gel, [facility], 185, cm, 06/24/19 13:00:... Start Date: [...] 11 Refills, Maintenance, 02/15/20 21:05:00 EST, Solution, [facility], 185, cm, 01/07/20 13:55:00 EDT, Height, 127.72, kg, 05/06/19 13:41:00 EST, Dry Weight Start Date: 02/15/20 Status: Ordered EpiPen 2-Deejay 0.3 mg injectable [...] AM, # 30 tablet, 11 Refills, Maintenance, 01/07/20 14:40:00 EDT, [facility], 185, cm, 01/07/20 13:55:00 EDT, Height, 127.72, kg, 05/06/19 13:41:00 EST, Dry Weight Start Date: 01/07/20 Status: Ordered Lantus Solostar Pen 100 units/mL subcutaneous solution = 90 units, Subcutaneous Infusion, Daily at bedtime, # 15 mL, 2 Refills, Maintenance, 03/08/20 15:23:00 EST, [facility], 185, cm, 02/25/20 10:29:00 EST, Height, 126.81, kg, 02/25/20 10:29:00 EST, Dry Weight Start Date: 03/08/20 Status: Ordered latanoprost 0.005% ophthalmic solution 1 drops, Eyes, Both, Daily at bedtime, cover gap- Clinic Administrator Dr Broussard, # 2.5 mL, 1 Refills, Maintenance, 02/25/14 10:47:09, Ophth Solution, 1 drops Eyes, Both Daily at bedtime,Instr:cover gap-Clinic Administrator Dr Broussard Start Date: 02/25/14 Status: Ordered lidocaine 4% topical cream 1 application, Topically, 3 times a day, may interchange 3-5% cream or ointment or 2% gel per insurance coverage., # 60 Gm, 5 Refills, Maintenance, 10/28/19 20:11:00 EDT, [facility], 1 application Topically 3 times a day,Instr:may interchang... Start Date: 10/28/19 Status: Ordered Lipitor 40 mg oral tablet 1 tablet = 40 mg, By Mouth, Daily, # 90 tablet, 3 Refills, Maintenance, 03/30/20 21:30:00 EST, [facility], duplicate rx. original sent 11/04/19. remaining refill sent., 185, cm, 02/25/20 10:29:00 EST, Height, 126.81, kg, 02/25/20 10:29:00 EST... Start Date: 03/30/20 Status: Ordered metFORMIN 500 mg oral tablet 1 tablet = 500 mg, By Mouth, 2 times a day, with meals. Replaces metformin ER, # 60 tablet, 11 Refills, Maintenance, 06/24/19 15:02:00 EDT, Tablet, [facility], 185, cm, 06/24/19 13:00:00 EDT, [...] pain. IDC10: G90.5 CRPS. 28 day supply. [facility]., # 154 tablet, 0 Refills, Maintenance, pain, 03/30/20 23:51:00 EST,[facility], May partial fill., 03/30/20... Start Date: 03/30/20 Status: Ordered methadone 10 mg oral tablet See Instructions, By mouth. 2 tab in AM, 1.5 midday, 2 in evening;for pain. IDC10: G90.5 CRPS. 28 day supply. [facility]., # 154 tablet, 0 Refills, Maintenance, pain, 03/02/20 21:37:00 EST,[facility], May partial fill., 03/02/20... Start Date: 03/02/20 Status: Ordered Metoclopramide = 10 mg, By [...] Start Date: 05/15/18 Status: Ordered nystatin-triamcinolone topical 377977 u/gm-0.1% ointment 1 applicator, Topically, 3 times a day, to foreskin area FOR 3 DAYS then switch to other antifungal, # 15 Gm, 1 Refills, Maintenance, 01/07/20 14:48:00 EDT, [facility], 1 applicator Topically 3 times a [...] EDT Start Date: 08/20/18 Status: Ordered Pen [place], 31 G x 8 mm BD Ultra [...] 03/30/20 21:31:00 EST, Route to Pharmacy Electronically, [facility], 185, cm, 02/25/20 10:29:00 EST, Height, 126.81, kg, 02/25/20 10:29:00 EST, Dry Weight Start Date: 03/30/20 Status: Ordered Testosterone Cypionate = 0.75 mg, Intramuscular, Every 14 days, Adm. today to Lot [id number] exp: 02/2020, 0 Refills, Maintenance, 11/14/18 14:06:08 EDT Start Date: 11/14/18 Status: Ordered testosterone enanthate 200 mg/mL intramuscular solution 0.75 mL, Intramuscular, Every 14 days, [facility], # 5 mL, 5 Refills, Maintenance, 01/06/20 11:17:00 EDT, [facility], 185, cm, 06/24/19 13:00:00 EDT, Height, 127.72, kg, 05/06/19 13:41:00 EST, Dry Weight Start Date: 01/06/20 Status: Ordered testosterone enanthate 200 mg/mL intramuscular solution 0.75 mL, Intramuscular, Every 14 days, [facility], # 5 mL, 5 Refills, Maintenance, 01/11/20 21:30:00 EDT, [facility], 185, cm, 01/07/20 13:55:00 EDT, Height, 127.72, kg, 05/06/19 13:41:00 EST, Dry Weight Start Date: 01/11/20 Status: Ordered tiZANidine 4 mg oral tablet 4 mg, 1, tablet, By Mouth, 3 times a day, PRN, # 90 tablet, Refills 11, Tot. Refills 11, Maintenance, as needed for muscle spasm, 02/04/19 21:34:51 EDT, Route to Pharmacy Electronically, [id number]_[id number], [facility] Start Date: 02/04/19 Status: Ordered Problem [...] ? chr regional pain syndrome 4s/p Modified [place] procedure, repair of conjoined tendon of extensor [...]
--- OUTSIDE RECORDS SUMMARY | 2023-10-11 08:11 | XMS_ITS | Continuity of Care Document ---
Author Organization [facility] Address [address] [place] [address]- Care Team Providers Care Placing Judge Name Role Phone Vamshi Man MD Primary Care Physician Encounter [place] Date(s): 03/20/19 - 05/03/19 [facility]/[address] [address]- [facility] Attending Physician: Vamshi Man MD Admitting Physician: [...] Elissa Bertrand 11Result Comment: [11/27/2017] REceived at [facility] at [place], [place]; ordered by Dr Michael Oliveira 12Location [...] 10/30/18 7:28:48 EDT, Route to Pharmacy Electronically, [id number], [facility] Start Date: 10/30/18 Status: Ordered AutoCPAP 9-18 [...] 4 times a day, PRN for pain, (bermudian) not to exceed: 16 gm/day/joint lower limb8 [...] tablet, 1 Refills, Maintenance, 04/15/19 5:02:00 EST, [facility], 185, cm, 02/12/19 9:28:00 EDT, Height, [...] Eyes, Both, Daily at bedtime, cover gap- Child Advocate Dr Broussard, # 2.5 mL, 1 Refills, Maintenance, 02/25/14 10:47:09, Ophth Solution, 1 drops Eyes, Both Daily at bedtime,Instr:cover gap-Child Advocate Dr Broussard Start Date: 02/25/14 Status: Ordered [...] 5 Refills, Maintenance, Route to Pharmacy Electronically, [id number], [facility] Start Date: 10/28/18 Status: Ordered metFORMIN 500 [...] 0 Refills, Maintenance, pain, 05/01/19 19:01:00 EST, [facility],... Start Date: 05/01/19 Status: Ordered methadone 10 mg oral tablet See Instructions, By mouth. 2 tab in AM, 1.5 midday, 2 in evening;for pain. IDC10: G90.5 CRPS. 28 day supply. [facility]., # 154 tablet, 0 Refills, Maintenance, pain, 05/01/19 19:01:00 EST, [facility], May partial fill.,... Start Date: 05/01/19 Status: [...] Start Date: 05/15/18 Status: Ordered nystatin topical 701271 u/gm cream 1 application, Topically, 2 times a day, for fungal rash, # 30 Gm, 0 Refills, Maintenance, 12/27/1710:41:38, Cream, 1 application Topically 2 times a day,x14 days,Instr:for fungal rash Start Date: 12/27/16 Stop Date: 01/10/17 Status: Ordered nystatin-triamcinolone topical 762686 u/gm-0.1% ointment 1 applicator, Topically, 3 times [...] 11/29/18 11:27:43 EDT, Route to Pharmacy Electronically, [id number], [facility] Start Date: 11/29/18 Status: Ordered Testosterone Cypionate = 0.75 mg, Intramuscular, Every 14 days, Adm. today to Lot [id number] exp: 02/2020, 0 Refills, Maintenance, 11/14/18 14:06:08 EDT Start Date: 11/14/18 Status: Ordered testosterone enanthate 200 mg/mL intramuscular solution 0.75 mL, Intramuscular, Every 14 days, [facility], # 5 mL, 5 Refills, Maintenance, 12/25/18 9:56:09 EDT Start Date: 12/25/18 Status: Ordered tiZANidine 4 mg oral tablet 4 mg, 1, tablet, By Mouth, 3 times a day, PRN, # 90 tablet, Refills 11, Tot. Refills 11, Maintenance, as needed for muscle spasm, 02/04/19 21:34:51 EDT, Route to Pharmacy Electronically, [id number], [facility] Start Date: 02/04/19 Status: Ordered Problem [...]
--- OUTSIDE RECORDS SUMMARY | 2023-10-11 08:11 | XMS_ITS | Continuity of Care Document ---
Author Organization [facility] Address [address] [place] [address]- Care Team Providers Care Block Setter Gypsum Name Role Phone Vamshi Man MD Primary Care Physician Encounter [facility] [place] Date(s): 03/22/22 - 04/21/22 [facility]/[place] [address]- [place] Allergies, Adverse Reactions, Alerts Substance Reaction Severity Status penicillin 1 rash Resolved Latex RASH Active Other Food Allergy fresh peaches - itch y mouth, throat and lips swell Active 1rash per mother as child. Did take a penicillin for treatment of H pylori per pt w/o problem. Immunizations Given and Recorded Vaccine Date Status Refusal Reason [id number] 12y+ bivalent booster vax 02/16/22 Given pneumococcal 20-valent conjugate vaccine 02/16/22 Given SARS-CoV-2 mRNA (ozjfwox-tasi-yvape) vax 11/11/21 Given SARS-CoV-2 (COVID-19) mRNA BNT-162b2 [...] Elissa Bertrand 12Result Comment: [11/27/2017] RE[place] [facility] [place], [place]; ordered by Dr Michael Oliveira 13Location [...] 7x/wk total. Dx: E11, 11/18/20 15:30:00 EDT, [facility], 188, cm, 09/22/20 8:33:00 EDT, Height, [...] tablet, 5 Refills, Maintenance, 11/20/21 13:03:00 EDT, [facility], 188, cm, 11/11/21 12:46:00 EDT, Height, 125.2, kg, 06/20/20 14:28:00 EST, Dry Weight Start Date: 11/20/21 Status: Ordered atorvastatin 40 mg oral tablet 1 tablet, By Mouth, Daily, # 90 tablet, 1 Refills, Maintenance, 04/10/22 12:34:00 EST, [facility], 188, cm, 02/16/22 13:07:00 EDT, Height, [...] 2 Refills, Maintenance, 02/16/22 23:34:00 EDT, Cream, [facility], 1 application Topically 2 times a day,Instr:apply to penile rash, 188, cm, 02/16/22 13:07:00 EDT, Heigh... Start Date: 02/16/22 Status: Ordered diclofenac 1% topical gel = 2 Gm, Topically, 4 times a day, PRN for pain, (bhutanese) not to exceed: 16 gm/day/joint lower limb8 [...] = 1.5 mg, Subcutaneous Injection, Every week, this replaces semaglutide until it becomes available again, # 2.5 mL, 11 Refills, Maintenance, 03/30/22 23:35:00 EST, Solution, [facility], 188, cm, 02/16/22 13:07:00 EDT, Height, 122.63,... Start Date: 03/30/22 Status: Ordered duloxetine 60 mg oral enteric [...] May cause drowsiness, do notdrive after taking Kosovan, # 28 tablet, 0 Refills, Maintenance, 04/07/22 15:51:00 EST, [facility], 188, cm, 02/16/22 13:07:00 EDT, Heigh... Start [...] 11 Refills, Maintenance, 11/28/21 21:27:00 EDT, Solution, [facility], 188, cm, 11/22/21 16:37:00 EDT, Height, [...] mL, 5 Refills, Maintenance, 01/23/22 8:43:00 EDT, [facility], 188, cm, 12/26/21 14:06:00 EDT, Height, 122.63, kg, 11/22/21 16:37:00 EDT, Dry Weight Start Date: 01/23/22 Status: Ordered latanoprost 0.005% ophthalmic solution 0 Refills, Maintenance, 05/11/20 16:57:00 EST Start Date: 05/11/20 Status: Ordered lidocaine 5% topical ointment See Instructions, PRN Pain , Moderate, 1 APPLICATION TOPICALLY 3 TIMES A DAY, # 50 Gm, 5 Refills, Maintenance, 12/22/21 7:28:00 EDT, [facility], same Rx was sent 11/11 w/ [...] 0 Refills, Maintenance, 01/12/22 7:27:00 EDT, Tablet, [facility], 188, cm, 12/26/21 14:06:00 EDT, Height, 122.63, kg, 11/22/21 16:37:00 EDT, Dry Weight Start Date: 01/12/22 Status: Ordered losartan 100 mg oral tablet 1 tablet, By Mouth, Daily in AM, # 30 tablet, 5 Refills, 03/20/22 10:07:00 EST, [facility], 188, cm, 02/16/22 13:07:00 EDT, Height, 122.63, kg, 11/22/21 16:37:00 EDT, Dry Weight Start Date: 03/20/22 Status: Ordered LUBRIC TEARS CALE 0.4-0.3% Milliliters INSTILL 1 DROP FOUR TIMES DAILY EACH EYE Start Date: 05/11/20 Status: Ordered meloxicam 15 mg oral tablet 1 tablet = 15 mg, By Mouth, Daily, Take with food PRN back pain Kosovan, # 14 tablet, 0 Refills, Maintenance, 11/25/21 13:26:00 EDT, [facility], Partial fill upon patient request if the prescription is for a schedule II opioid drug., 188,... Start Date: 11/25/21 Stop Date: 12/09/21 Status: Ordered metFORMIN 750 mg oral tablet, extended release 1 tablet = 750 mg, By Mouth, Daily, [replaces the metformin 500mg bid], # 30 tablet, 11 Refills, Maintenance, 11/22/21 17:53:00 EDT, ER Tablet, [facility], Partial fill upon patient requestif the prescription is for a schedule II opioid alessandra... Start Date: 11/22/21 Status: Ordered methadone 10 mg oral tablet See Instructions, By mouth. 2 tab in AM, 1.5 midday, 2 in evening;for pain. IDC10: G90.5 CRPS. 28 day supply. [facility]., # 154 tablet, 0 Refills, Maintenance, pain, 01/31/22 7:25:00 EDT, [facility], May partial fill., 01/31/22,... Start Date: 01/31/22 Status: Ordered methadone 10 mg oral tablet See Instructions, By mouth. 2 tab in AM, 1.5 midday, 2 in evening;for pain. IDC10: G90.5 CRPS. 28 day supply. [facility]., # 154 tablet, 0 Refills, Maintenance, pain, 02/28/22 14:14:00 EST,[facility], May partial fill. May fill... Start Date: 02/28/22 Status: Ordered methadone 10 mg oral tablet See Instructions, By mouth. 2 tab in AM, 1.5 midday, 2 in evening;for pain. IDC10: G90.5 CRPS. 28 day supply. [facility]., # 154 tablet, 0 Refills, Maintenance, pain, 04/25/22 23:30:00 EST,[facility], May partial fill., 04/25/22... Start Date: 04/25/22 Status: Ordered methadone 10 mg oral tablet See Instructions, By mouth. 2 tab in AM, 1.5 midday, 2 in evening;for pain. IDC10: G90.5 CRPS. 28 day supply. [facility]., # 154 tablet, 0 Refills, Maintenance, pain, 03/28/22 23:30:00 EST,[facility], May partial fill., 03/28/22... Start Date: 03/28/22 Status: Ordered Metoclopramide = 10 mg, By Mouth, 3 times a day before meals and bedtime, 0 Refills, Maintenance, 08/20/18 13:55:26 EDT Start Date: 08/20/18 Status: Ordered multivitamin Multiple Vitamins oral tablet 1 tablet, By Mouth, Daily, B complex multivitamin, # 30 tablet, 11 Refills, Maintenance, 11/22/21 17:58:00 EDT, [facility], Partial fill upon patient request if [...] 1 Refills, Soft Stop, 02/16/22 23:38:00 EDT, [facility], 188, cm, 02/16/22 13:07:00 EDT, Height,122.63, [...] EDT Start Date: 02/16/22 Status: Ordered Pen [place], 31 G x 8 mm BD Ultra [...] each, 11 Refills, Maintenance, 09/15/21 14:29:00 EDT, [facility], Partial fill upon patient request if the prescription is for a schedule II opioid drug., 188, cm, 09/15/21 12:4... Start Date: 09/15/21 Status: Ordered Singulair 10 mg oral tablet 10 mg, 1, tablet, By Mouth, Daily, # 90 tablet, Refills 3, Tot. Refills 3, Maintenance, 03/30/20 21:31:00 EST, Route to Pharmacy Electronically, [facility], 185, cm, 02/25/20 10:29:00 EST, Height, 126.81, kg, 02/25/20 10:29:00 EST, Dry Weight Start Date: 03/30/20 Status: Ordered tamsulosin 0.4 mg oral capsule 0.4 mg, 1, capsule, By Mouth, Daily, Per urology, # 30 capsule, Refills 11, Tot. Refills 11, Maintenance, 02/16/22 23:29:00 EDT, Route to Pharmacy Electronically, [facility], 188, cm, 02/16/22 13:07:00 EDT, Height, [...] Intramuscular, Every 14 days, IM or subcutaneous. [facility]., # 2 mL, 5 Refills, Maintenance, 02/05/22 22:55:00 EDT, [facility], 188, cm, 12/26/21 14:06:00 EDT, Height, 122.63, kg, 11/22/21 16:37:00 EDT, Dry Weight Start Date: 02/05/22 Status: Ordered tiZANidine 4 mg oral tablet 4 mg, 1, tablet, By Mouth, 3 times a day, PRN, # 90 tablet, Refills 11, Tot. Refills 11, Maintenance, as needed for muscle spasm, 08/12/21 11:09:00 EDT, Route to Pharmacy Electronically, [facility], 188, cm, 07/27/21 8:34:00 EDT, Height, 125... Start Date: 08/12/21 Status: Ordered traZODone 100 mg oral tablet TAKE ONE TO TWO TABLETS BY MOUTH AT BEDTIME NEEDED Damaris Morales Start Date: 05/11/20 Status: Ordered Tylenol Extra Strength 500 mg oral tablet 2 tablet = 1,000 mg, By Mouth, 3 times a day, # 30 tablet, 11 Refills, Maintenance, 03/24/21 21:00:00 EST, [facility], 188, cm, 03/22/21 14:17:00 EST, Height, 125.2, kg, 06/20/20 14:28:00 EST, Dry Weight Start Date: 03/24/21 Status: Ordered Vitamin D3 1000 intl units oral tablet 1 tablet, By Mouth, Daily, for 30 days, # 30 tablet, 11 Refills, Physician Stop 10/30/22 17:07:00 EDT, 11/04/21 17:07:00 EDT, [facility], 188, cm, 09/15/21 12:49:00 EDT, Height, [...] ? chr regional pain syndrome 4s/p Modified [place] procedure, repair of conjoined tendon of extensor [...] Team Personnel Name: Shoaib An RN Position: Bharath RN Supv Member Role: Primary Care Nurse Name: Vamshi Man MD Position: [facility] Primary Care Physician Member Role: PCP Address: Address: [address] [place] [address]- Name: Miki Rodriguez MD Position: S Renal MD Member Role: Lifetime Consulting Physician Address: Address: [address] [facility] [place] [address]- Care Team Related Persons Name: BRANDON TMZ Address: home [address] [facility] [address] [place] [address] Name: BRANDON BARKER Address: home [address] [place] [address] Name: ROSALINDA BERTRAND Address: home [address] [place] [address]
--- OUTSIDE RECORDS SUMMARY | 2023-10-11 08:11 | XMS_ITS | Continuity of Care Document ---
Author Organization [facility] Address [address] [place] [address]- Care Team Providers Care Drywall Hanger Helper Name Role Phone Vamshi Man MD Primary Care Physician Encounter [facility] Date(s): 08/24/20 - 09/23/20 [facility]/[address] [address]- Allergies, Adverse Reactions, Alerts Substance Reaction Severity [...] MD 5Result Comment: [01/15/2013] ordered by Vamshi Mna MD 6Admin Note: VIS 11/08/10 GIVEN 7Admin Note: VIS 11/08/2010 Fluzone given 8Admin Note: ADMINISTERED BY R.N. 9Admin Note: [employer]i-[employer] 10Location History: [facility] 11Location History: Elissa Bertrand 12Result Comment: [11/27/2017] REceived at [facility] at [place], [place]; ordered by Dr Michael Oliveira 13Location [...] 03/30/20 21:31:00 EST, Route to Pharmacy Electronically, [facility], dupilcate rx. original sent 11/04/19. remaining refills sent., 185, cm, 02/25/20 10:29:00 EST, Hei... Start Date: 03/30/20 Status: Ordered AutoCPAP 9-18 with heated humidification AutoCPAP 9-18 with heated humidification, See Instructions, # 1 each, Refills 0, Tot. Refills 0, Maintenance, use overnight and naps from Replaced By [facility], 11/04/18 12:28:22 EDT, Compound Start Date: 11/04/18 [...] capsule, 3 Refills, Maintenance, 03/30/20 21:36:00 EST, [facility], 185, cm, 02/25/20 10:29:00 EST, Height, 126.81, kg, 02/25/20 10:29:00 EST, Dry Weight Start Date: 03/30/20 Status: Ordered clotrimazole 1% topical cream 1 application, Topically, 2 times a day, apply to penile rash, # 30 Gm, 2 Refills, Maintenance, 01/07/20 14:49:00 EDT, Cream, [facility], 1 application Topically 2 times a day,Instr:apply to penile rash, 185, cm, 01/07/20 13:55:00 EDT, [facility]... Start Date: 01/07/20 Status: Ordered Cozaar 100 mg oral tablet 1 tablet = 100 mg, By Mouth, Daily in AM, # 30 tablet, 11 Refills, Maintenance, 09/22/20 9:41:00 EDT, Tablet, [facility], duplicate rx. original sent 09/16/19. remaining [...] 06/25/20 15:39:00 EST, Route to Pharmacy Electronically, [facility], Partial f... Start Date: 06/25/20 Status: Ordered diclofenac 1% topical gel = 2 Gm, Topically, 4 times a day, PRN for pain, (greenlandic) not to exceed: 16 gm/day/joint lower limb8 gm/day/joint of upper limb 32 gm/day may interchange for cream, # 100 Gm, 5 Refills, Maintenance,07/08/20 15:35:00 EDT, Gel, [facility] Start Date: 07/08/20 Status: Ordered docusate [...] 11 Refills, Maintenance, 02/15/20 21:05:00 EST, Solution, [facility], 185, cm, 01/07/20 13:55:00 EDT, Height, [...] mL, 3 Refills, Maintenance, 07/08/20 15:42:00 EDT, [facility], Duplicate rx-Original rx sent 06/22/20. Resent., 188, cm, 07/08/20 13:42:00 EDT, Height, 125.2, kg, 06/20/20 14:28:00 EST,... Start Date: 07/08/20 Status: Ordered latanoprost 0.005% ophthalmic solution 0 Refills, Maintenance, 05/11/20 16:57:00 EST Start Date: 05/11/20 Status: Ordered Lipitor 40 mg oral tablet 1 tablet = 40 mg, By Mouth, Daily, # 90 tablet, 3 Refills, Maintenance, 03/30/20 21:30:00 EST, [facility], duplicate rx. original sent 11/04/19. remaining refill sent., 185, cm, 02/25/20 10:29:00 EST, Height, 126.81, kg, 02/25/20 10:29:00 EST... Start Date: 03/30/20 Status: Ordered LORazepam 1 mg oral tablet See Instructions, PRN for anxiety, 2 tablets By Mouth 1 hours prior to MRI, # 2 tablet, 0 Refills, Acute 09/22/21 9:45:00 EDT, 09/22/20 9:43:00 EDT, Tablet, [facility], Partial fill upon patient request if [...] 3 Refills, Maintenance, 07/08/20 15:40:00 EDT, Tablet, [facility], Duplicate rx-Original rx sent06/22/20. Resent., 188, cm, 07/08/20 13:42:00 EDT, He... Start Date: 07/08/20 Status: Ordered methadone 10 mg oral tablet See Instructions, By mouth. 2 tab in AM, 1.5 midday, 2 in evening;for pain. IDC10: G90.5 CRPS. 28 day supply. [facility]., # 154 tablet, 0 Refills, Maintenance, pain, 10/12/20 9:38:00 EDT, [facility], August partial fill., 10/12/20,... Start Date: 10/12/20 Status: Ordered methadone 10 mg oral tablet See Instructions, By mouth. 2 tab in AM, 1.5 midday, 2 in evening;for pain. IDC10: G90.5 CRPS. 28 day supply. [facility]., # 154 tablet, 0 Refills, Maintenance, pain, 11/09/20 9:38:00 EDT, [facility], August partial fill., 11/09/20,... Start Date: 11/09/20 [...] Start Date: 05/15/18 Status: Ordered nystatin-triamcinolone topical [id number] u/gm-0.1% ointment 1 applicator, Topically, 3 times a day, to foreskin area FOR 3 DAYS then switch to other antifungal, # 15 Gm, 1 Refills, Maintenance, 07/08/20 15:34:00 EDT, [facility], 1 applicator Topically 3 times a [...] EDT Start Date: 08/20/18 Status: Ordered Pen [place], 31 G x 8 mm BD [...] 03/30/20 21:31:00 EST, Route to Pharmacy Electronically, [facility], 185, cm, 02/25/20 10:29:00 EST, Height, [...] solution 0.75 mL, Intramuscular, Every 14 days, [facility], # 5 mL, 5 Refills, Maintenance, 08/29/20 21:33:00 EDT, [facility], 188, cm, 07/08/20 13:42:00 EDT, Height, 125.2, kg, 06/20/20 14:28:00 EST, Dry Weight Start Date: 08/29/20 Status: Ordered tiZANidine 4 mg oral tablet 4 mg, 1, tablet, By Mouth, 3 times a day, PRN, # 90 tablet, Refills 11, Tot. Refills 11, Maintenance, as needed for muscle spasm, 07/08/20 15:40:00 EDT, Route to Pharmacy Electronically, [facility], 188, cm, 07/08/20 13:42:00 EDT, Height, [...] ? chr regional pain syndrome 4s/p Modified [place] procedure, repair of conjoined tendon of extensor [...]
--- OUTSIDE RECORDS SUMMARY | 2023-10-11 08:11 | XMS_ITS | Continuity of Care Document ---
Author Organization [facility] Address [address] [place] [address]- Care Team Providers Care Negative Retoucher Name Role Phone Vamshi Man MD Primary Care Physician [phone] Encounter [facility] Date(s): 01/25/23 - 02/24/23 [facility]/[place] [address]- [place] Allergies, Adverse Reactions, Alerts Substance Reaction Severity Status Other Food Allergy fresh peaches - itch y mouth, throat and lips swell Active Latex RASH Active penicillin 1 rash Resolved 1rash per mother as child. Did take a penicillin for treatment of H pylori per pt w/o problem. Immunizations Given and Recorded Vaccine Date Status Refusal Reason SARS-CoV-2(COVID-19)mRNA-LNP vac([id number]) 01/30/23 Given [id number] 12y+ bivalent booster vax 02/16/22 Given pneumococcal 20-valent conjugate vaccine 02/16/22 Given Influenza Virus Vaccine (oldterm) 1 01/27/22 Recor ded Influenza Virus Vaccine (oldterm) 01/26/21 Recorde d SARS-CoV-2 mRNA ([id number]) vax 11/11/21 Given SARS-CoV-2 (COVID-19) mRNA BNT-162b2 [...] influenza virus vaccine, inactivated 8 01/12/11 Gi darianne influenza virus vaccine, inactivated 9 01/25/10 Gi [...] Elissa Bertrand 13Result Comment: [11/27/2017] REceived at [facility] [place], [place]; ordered by Dr Michael Oliveira 14Location [...] 11 Refills, Maintenance, 02/08/23 10:21:00 EDT, Powder, [facility], replaces Flovent due to insurance coverage, 188, cm, 01/30/23 13:26:00 EDT, Height, 126, kg, 01/30/23 13:26:00 EDT,... Start Date: 02/08/23 Status: Ordered Aspirin Low Dose 81 mg oral delayed release tablet 1 tablet, By Mouth, Daily, # 30 tablet, 5 Refills, Maintenance, 09/06/22 21:30:00 EDT, [facility], 188, cm, 07/18/22 14:01:00 EDT, Height, 122.63, kg, 11/22/21 16:37:00 EDT, Dry Weight Start Date: 09/06/22 Status: Ordered atorvastatin 40 mg oral tablet See Instructions, TAKE 1 TABLET BY MOUTH EVERY DAY, # 90 tablet, 1 Refills, Maintenance, 11/02/22 16:19:00 EDT, [facility], 188, cm, 10/19/22 13:16:00 EDT, Height, [...] 0 Refills, Maintenance, 05/15/22 16:24:00 EST, Tablet, [facility], Partial fill upon patient request if [...] 2 Refills, Maintenance, 04/27/22 23:43:00 EST, Cream, [facility], 1 application Topically 2 times a day,Instr:apply to penile rash, 188, cm, 04/27/22 13:44:00 EST, [facility]... Start Date: 04/27/22 Status: Ordered diazepam 10 mg oral tablet See Instructions, PRN, 1 tablet By Mouth 1 hr before MRI, # 1 tablet, Refills 2, Tot. Refills 2, Maintenance, as needed for anxiety, 01/30/23 15:02:00 EDT, Instructions Replace Required Details, Route to Pharmacy Electronically, [facility],... Start Date: 01/30/23 Status: Ordered diclofenac 1% topical gel = 2 Gm, Topically, 4 times a day, PRN for pain, (barbadian) not to exceed: 16 gm/day/joint lower limb8 gm/day/joint of upper limb 32 gm/day may interchange for cream, # 100 Gm, 11 Refills, Maintenance, 04/15/22 13:02:00 EST, Gel, [facility]... Start Date: 04/15/22 Status: Ordered docusate [...] 0 Refills, Maintenance, 09/03/22 13:58:00 EDT, Tablet, [facility], 188, cm, 07/18/22 14:01:00 EDT, Height, 122.63, kg, 11/22/21... Start Date: 09/03/22 Status: Ordered fexofenadine 60 mg oral tablet 1 tablet = 60 mg, By Mouth, 2 times a day, PRN for allergy symptoms, # 20 tablet, 0 Refills, Maintenance, 09/03/22 13:58:00 EDT, Tablet, [facility], Partial fill upon patient request if theprescription is for a schedule II opioid drug., 188... Start Date: 09/03/22 Status: Ordered fluticasone 50 mcg/inh nasal spray 0 Refills, Maintenance, 05/11/20 16:57:00 EST Start Date: 05/11/20 Status: Ordered Freestyle Tatyana [place] Freestyle Tatyana [place], See Instructions, # 1 each, Refills 0, [...] Weight Start Date: 02/16/22 Status: Ordered FREESTYLE PYHLLIS LITE FREESTYLE PHYLLIS LITE, See Instructions, # [...] May cause drowsiness, do notdrive after taking Welsh, # 28 tablet, 0 Refills, Maintenance, 04/07/22 15:51:00 EST[facility], cm, 02/16/22 13:07:00 EDT, Heigh... [...] 11 Refills, Maintenance, 11/28/21 21:27:00 EDT, Solution, [facility], 188, cm, 11/22/21 16:37:00 EDT, Height, [...] Gm, 5 Refills, Maintenance, 12/22/21 7:28:00 EDT, [facility], same Rx was sent 11/11 w/ [...] 0 Refills, Maintenance, 01/12/22 7:27:00 EDT, Tablet, [facility], 188, cm, 12/26/21 14:06:00 EDT, Height, 122.63, kg, 11/22/21 16:37:00 EDT, Dry Weight Start Date: 01/12/22 Status: Ordered losartan 100 mg oral tablet See Instructions, TAKE 1 TABLET BY MOUTH DAILY IN AM, # 30 tablet, 4 Refills, Maintenance, 10/06/2315:25:00 EDT, [facility], 188, cm, 07/18/22 14:01:00 EDT, Height, [...] is for a schedule II opioid drug., [place], cm, 04/27/22 13:44:00 EST, Hei... Start Date: 04/27/22 Status: Ordered meloxicam 15 mg oral tablet 1 tablet = 15 mg, By Mouth, Daily, Take with food PRN back pain Welsh, # 14 tablet, 0 Refills, Maintenance, 11/25/21 13:26:00 EDT, [facility], Partial fill upon patient request if the prescription is for a schedule II opioid drug., 188,... Start Date: 11/25/21 Stop Date: 12/09/21 Status: Ordered metFORMIN 750 mg oral tablet, extended release 1 tablet = 750 mg, By Mouth, Daily, [replaces the metformin 500mg bid], # 30 tablet, 5 Refills, Maintenance, 11/01/22 8:40:00 EDT, ER Tablet, [facility], Partial fill upon patient request if the prescription is for a schedule II opioid drug.... Start Date: 11/01/22 Status: Ordered methadone 10 mg oral tablet See Instructions, By mouth. 2 tab in AM, 1.5 midday, 2 in evening;for pain. IDC10: G90.5 CRPS. 28 day supply. [facility]., # 154 tablet, 0 Refills, Maintenance, pain, 03/27/23 10:28:00 EST,[facility], August partial fill., 03/27/23... Start Date: 03/27/23 Status: Ordered methadone 10 mg oral tablet See Instructions, By mouth. 2 tab in AM, 1.5 midday, 2 in evening;for pain. IDC10: G90.5 CRPS. 28 day supply. [facility]., # 154 tablet, 0 Refills, Maintenance, pain, 02/27/23 10:28:00 EST,[facility], May partial fill., 02/27/23... Start Date: 02/27/23 Status: Ordered methadone 10 mg oral tablet See Instructions, By mouth. 2 tab in AM, 1.5 midday, 2 in evening;for pain. IDC10: G90.5 CRPS. 28 day supply. [facility]. Early fill before travel., # 154 tablet, 0 Refills, Maintenance, pain, 02/27/23 14:24:00 EST, [facility],... Start Date: 02/27/23 Status: Ordered methadone 10 mg oral tablet See Instructions, By mouth. 2 tab in AM, 1.5 midday, 2 in evening;for pain. IDC10: G90.5 CRPS. 28 day supply. [facility]., # 154 tablet, 0 Refills, Maintenance, pain, 01/30/23 14:06:00 EDT,[facility], May partial fill., 01/30/23... Start Date: 01/30/23 Status: [...] 1 Refills, Soft Stop, 02/16/22 23:38:00 EDT, [facility], 188, cm, 02/16/22 13:07:00 EDT, Height,122.63, [...] Date: 02/16/22 Status: Ordered PEN NEEDLES MIS [id number] PEN NEEDLES MIS [id number], See Instructions, # 100 each, 5 Refills, Maintenance, USE DAILY TYPE 2 DIABETES MELLITUS ON INSULIN WITH PEN, 08/25/22 16:39:00 EDT, 188, cm, 07/18/22 14:01:00 EDT, Height, 122.63, kg, 11/22/21 16:37:00 EDT, Dry Weight Start Date: 08/25/22 Status: Ordered Pen [place], 31 G x 8 mm BD Ultra [...] 02/18/23 19:20:00 EST, Route to Pharmacy Electronically, [facility], 188, cm, 01/30/23 13:26:00 EDT, Height, 126, kg, 01/30/23 13:26:00 EDT, Dry Weight Start Date: 02/18/23 Status: Ordered Tab-A-Kelsie oral tablet 1 tablet, By Mouth, Daily, # 30 tablet, 5 Refills, Maintenance, 12/19/22 20:41:00 EDT, [facility], 30, TAKE 1 TABLET BY MOUTH EVERY DAY, 188, cm, 10/19/22 13:16:00 EDT, Height, 122.63, kg, 11/22/21 16:37:00 EDT, Dry Weight Start Date: 12/19/22 Status: Ordered tamsulosin 0.4 mg oral capsule 0.8 mg, 2, capsule, By Mouth, Daily, dose increase, # 60 capsule, Refills 11, Tot. Refills 11, Maintenance, 07/27/22 11:57:00 EDT, Route to Pharmacy Electronically, [facility], 188, cm, 07/18/22 14:01:00 EDT, Height, 122.63, kg, 11/22/21 16:... Start Date: 07/27/22 Status: Ordered Test Strips See Instructions, # 100 each, Refills 5, Tot. Refills 5, Maintenance, Precision Ganga strips (for Freestyle Tatyana glucometer). Type 2 diabetes mellitus on insulin (E11, Z79.4). Test 2-4x/day if symptoms, or sensor concerns., 02/08/23 10:36:00 EDT, [facility]... Start Date: 02/08/23 Status: Ordered Test Strips [...] Intramuscular, Every 14 days, IM or subcutaneous. [facility]., # 2 mL, 5 Refills, Maintenance, 10/27/22 17:23:00 EDT, [facility], 188, cm, 10/19/22 13:16:00 EDT, Height, 122.63, kg, 11/22/21 16:37:00 EDT, Dry Weight Start Date: 10/27/22 Status: Ordered tiZANidine 4 mg oral tablet 4 mg, 1, tablet, By Mouth, 3 times a day, PRN, # 90 tablet, Refills 11, Tot. Refills 11, Maintenance, as needed for muscle spasm, 08/18/22 8:03:00 EDT, Route to Pharmacy Electronically, [facility], 188, cm, 07/18/22 14:01:00 EDT, Height, 122... Start Date: 08/18/22 Status: Ordered Toujeo Max SoloStar 300 units/mL subcutaneous solution = 90 units, Subcutaneous Injection, Daily, # 12 mL, 11 Refills, Maintenance, 02/08/23 10:15:00 EDT,Solution, [facility], replaces Lantus due to insurance coverage, [...] tablet, 11 Refills, Maintenance, 03/24/21 21:00:00 EST, [facility], 188, cm, 03/22/21 14:17:00 EST, Height, 125.2, kg, 06/20/20 14:28:00 EST, Dry Weight Start Date: 03/24/21 Status: Ordered Victoza 18 mg/3 mL subcutaneous solution = 1.8 mg, Subcutaneous Injection, Daily, # 9 mL, 11 Refills, Maintenance, 02/08/23 10:25:00 EDT, Solution, [facility], replaces semaglutide, 188, cm, 01/30/23 13:26:00 [...] ? chr regional pain syndrome 4s/p Modified [place] procedure, repair of conjoined tendon of extensor [...] Team Personnel Name: Shoaib An RN Position: [facility] RN Supv Member Role: Primary Care Nurse Name: Vamshi Man MD Position: [facility] Physician - Primary Care Member Role: PCP Address: Address: [address] [place] [address]- Name: Luz Potter Position: [facility] Outreach Member Role: Lifetime Consulting Physician Name: Miki Rodriguez MD Position: [facility] Renal MD Member Role: Lifetime Consulting Physician Address: Address: [address] [facility] [place] [address]- Care Team Related Persons Name: BRANDON MTZ Address: home [address] [place] [address] Name: BRANDON BARKER Address: home [address] [place] [address] Name: ROSALINDA BERTRAND Address: home [address] [place] [address]
--- OUTSIDE RECORDS SUMMARY | 2023-10-11 08:11 | XMS_ITS | Continuity of Care Document ---
Author Organization [facility] Address Unknown Care Team Providers Care Clinical Research Director Name Role Phone Vamshi Man MD Primary Care Physician Encounter [facility] Date(s): 09/22/20 - 12/16/20 [facility] Attending Physician: Vamshi Man MD Admitting Physician: [...] REceived at [facility] [place], [place]; ordered by Dr Michael Oliveira 13Location [...] tablet, 5 Refills, Maintenance, 11/18/20 15:30:00 EDT, [facility], 188, cm, 09/22/20 8:33:00 EDT, Height, [...] capsule, 3 Refills, Maintenance, 03/30/20 21:36:00 EST, [facility], 185, cm, 02/25/20 10:29:00 EST, Height, 126.81, kg, 02/25/20 10:29:00 EST, Dry Weight Start Date: 03/30/20 Status: Ordered clotrimazole 1% topical cream 1 application, Topically, 2 times a day, apply to penile rash, # 30 Gm, 2 Refills, Maintenance, 01/07/20 14:49:00 EDT, Cream, [facility], 1 application Topically 2 times a day,Instr:apply to penile rash, 185, cm, 01/07/20 13:55:00 EDT, [facility]... Start Date: 01/07/20 Status: Ordered Cozaar 100 mg oral tablet 1 tablet = 100 mg, By Mouth, Daily in AM, # 30 tablet, 11 Refills, Maintenance, 09/22/20 9:41:00 EDT, Tablet, [facility], duplicate rx. original sent 09/16/19. remaining [...] 06/25/20 15:39:00 EST, Route to Pharmacy Electronically, [facility], Partial f... Start Date: 06/25/20 Status: Ordered diclofenac 1% topical gel = 2 Gm, Topically, 4 times a day, PRN for pain, (italian) not to exceed: 16 gm/day/joint lower limb8 gm/day/joint of upper limb 32 gm/day may interchange for cream, # 100 Gm, 5 Refills, Maintenance,07/08/20 15:35:00 EDT, Gel, [facility] Start Date: 07/08/20 Status: Ordered docusate [...] 11 Refills, Maintenance, 02/15/20 21:05:00 EST, Solution, [facility], 185, cm, 01/07/20 13:55:00 EDT, Height, [...] mL, 3 Refills, Maintenance, 07/08/20 15:42:00 EDT, [facility], Duplicate rx-Original rx sent 06/22/20. Resent., 188, cm, 07/08/20 13:42:00 EDT, Height, 125.2, kg, 06/20/20 14:28:00 EST,... Start Date: 07/08/20 Status: Ordered latanoprost 0.005% ophthalmic solution 0 Refills, Maintenance, 05/11/20 16:57:00 EST Start Date: 05/11/20 Status: Ordered lidocaine 5% topical ointment See Instructions, 1 APPLICATION TOPICALLY 3 TIMES A DAY, # 70.88 Gm, 4 Refills, Acute, [facility], 14, 1 APPLICATION TOPICALLY 3 TIMES A DAY, 188, cm, 09/22/20 8:33:00 EDT, Height, 125.2, kg, 06/20/20 14:28:00 EST, Dry Weight Start Date: 11/08/20 Status: Ordered Lipitor 40 mg oral tablet 1 tablet = 40 mg, By Mouth, Daily, # 90 tablet, 3 Refills, Maintenance, 03/30/20 21:30:00 EST, [facility], duplicate rx. original sent 11/04/19. remaining refill sent., 185, cm, 02/25/20 10:29:00 EST, Height, 126.81, kg, 02/25/20 10:29:00 EST... Start Date: 03/30/20 Status: Ordered LORazepam 1 mg oral tablet See Instructions, PRN for anxiety, 2 tablets By Mouth 1 hours prior to MRI, # 2 tablet, 0 Refills, Acute 09/22/21 9:45:00 EDT, 09/22/20 9:43:00 EDT, Tablet, [facility], Partial fill upon patient request if [...] pain. IDC10: G90.5 CRPS. 28 day supply. [facility]., # 154 tablet, 0 Refills, Maintenance, [...] Start Date: 05/15/18 Status: Ordered nystatin-triamcinolone topical 655906 u/gm-0.1% ointment 1 applicator, Topically, 3 times a day, to foreskin area FOR 3 DAYS then switch to other antifungal, # 15 Gm, 1 Refills, Maintenance, 07/08/20 15:34:00 EDT, [facility], 1 applicator Topically 3 times a [...] EDT Start Date: 08/20/18 Status: Ordered Pen [place], 31 G x 8 mm BD Ultra [...] 03/30/20 21:31:00 EST, Route to Pharmacy Electronically, [facility], 185, cm, 02/25/20 10:29:00 EST, Height, [...] solution 0.75 mL, Intramuscular, Every 14 days, [facility], # 5 mL, 5 Refills, Maintenance, 08/29/20 21:33:00 EDT, [facility], 188, cm, 07/08/20 13:42:00 EDT, Height, 125.2, kg, 06/20/20 14:28:00 EST, Dry Weight Start Date: 08/29/20 Status: Ordered tiZANidine 4 mg oral tablet 4 mg, 1, tablet, By Mouth, 3 times a day, PRN, # 90 tablet, Refills 11, Tot. Refills 11, Maintenance, as needed for muscle spasm, 07/08/20 15:40:00 EDT, Route to Pharmacy Electronically, [facility], 188, cm, 07/08/20 13:42:00 EDT, Height, [...] ? chr regional pain syndrome 4s/p Modified [place] procedure, repair of conjoined tendon of [...]
--- OUTSIDE RECORDS SUMMARY | 2023-10-11 08:11 | XMS_ITS | Continuity of Care Document ---
Author Organization [facility] Address [address] [place] [address]- Care Team Providers Care Farmworker Turkey Farm Name Role Phone Vamshi Man MD Primary Care Physician Encounter [facility] Date(s): 08/11/20 - 09/10/20 [facility]/[address] [address]- Allergies, Adverse Reactions, Alerts Substance Reaction Severity [...] Elissa Bertrand 12Result Comment: [11/27/2017] REceived at [facility] [place], [place]; ordered by Dr Michael Oliveira 13Location [...] 03/30/20 21:31:00 EST, Route to Pharmacy Electronically, [facility], dupilcate rx. original sent 11/04/19. remaining refills sent., 185, cm, 02/25/20 10:29:00 EST, Hei... Start Date: 03/30/20 Status: Ordered AutoCPAP 9-18 with heated humidification AutoCPAP 9-18 with heated humidification, See Instructions, # 1 each, Refills 0, Tot. Refills 0, Maintenance, use overnight and naps from [facility], 11/04/18 12:28:22 EDT, Compound Start [...] capsule, 3 Refills, Maintenance, 03/30/20 21:36:00 EST, [facility], 185, cm, 02/25/20 10:29:00 EST, Height, 126.81, kg, 02/25/20 10:29:00 EST, Dry Weight Start Date: 03/30/20 Status: Ordered clotrimazole 1% topical cream 1 application, Topically, 2 times a day, apply to penile rash, # 30 Gm, 2 Refills, Maintenance, 01/07/20 14:49:00 EDT, Cream, [facility], 1 application Topically 2 times a day,Instr:apply to penile rash, 185, cm, 01/07/20 13:55:00 EDT, [facility]... Start Date: 01/07/20 Status: Ordered Cozaar 100 mg oral tablet 1 tablet = 100 mg, By Mouth, Daily in AM, # 30 tablet, 5 Refills, Maintenance, 03/15/20 17:08:00 EST, Tablet, [facility], duplicate rx. original sent 09/16/19. remaining [...] 06/25/20 15:39:00 EST, Route to Pharmacy Electronically, [facility], Partial f... Start Date: 06/25/20 Status: Ordered diclofenac 1% topical gel = 2 Gm, Topically, 4 times a day, PRN for pain, (chadian) not to exceed: 16 gm/day/joint lower limb8 gm/day/joint of upper limb 32 gm/day may interchange for cream, # 100 Gm, 5 Refills, Maintenance,07/08/20 15:35:00 EDT, Gel, [facility] Start Date: 07/08/20 Status: Ordered docusate [...] 11 Refills, Maintenance, 02/15/20 21:05:00 EST, Solution, [facility], 185, cm, 01/07/20 13:55:00 EDT, Height, [...] mL, 3 Refills, Maintenance, 07/08/20 15:42:00 EDT, [facility], Duplicate rx-Original rx sent 06/22/20. Resent., 188, cm, 07/08/20 13:42:00 EDT, Height, 125.2, kg, 06/20/20 14:28:00 EST,... Start Date: 07/08/20 Status: Ordered latanoprost 0.005% ophthalmic solution 0 Refills, Maintenance, 05/11/20 16:57:00 EST Start Date: 05/11/20 Status: Ordered Lipitor 40 mg oral tablet 1 tablet = 40 mg, By Mouth, Daily, # 90 tablet, 3 Refills, Maintenance, 03/30/20 21:30:00 EST, [facility], duplicate rx. original sent 11/04/19. remaining [...] pain. IDC10: G90.5 CRPS. 28 day supply. [facility]., # 154 tablet, 0 Refills, Maintenance, pain, 09/14/20 0:46:00 EDT, [facility], May partial fill., 09/14/20,... Start Date: 09/14/20 Status: Ordered methadone 10 mg oral tablet See Instructions, By mouth. 2 tab in AM, 1.5 midday, 2 in evening;for pain. IDC10: G90.5 CRPS. 28 day supply. [facility]., # 154 tablet, 0 Refills, Maintenance, pain, 08/17/20 15:47:00 EDT,[facility], May partial fill., 08/17/20... Start Date: [...] Start Date: 05/15/18 Status: Ordered nystatin-triamcinolone topical 959153 u/gm-0.1% ointment 1 applicator, Topically, 3 times a day, to foreskin area FOR 3 DAYS then switch to other antifungal, # 15 Gm, 1 Refills, Maintenance, 07/08/20 15:34:00 EDT, [facility], 1 applicator Topically 3 times a [...] EDT Start Date: 08/20/18 Status: Ordered Pen [place], 31 G x 8 mm BD Ultra [...] 03/30/20 21:31:00 EST, Route to Pharmacy Electronically, [facility], 185, cm, 02/25/20 10:29:00 EST, Height, [...] solution 0.75 mL, Intramuscular, Every 14 days, [facility], # 5 mL, 5 Refills, Maintenance, 08/29/20 21:33:00 EDT, [facility], 188, cm, 07/08/20 13:42:00 EDT, Height, 125.2, kg, 06/20/20 14:28:00 EST, Dry Weight Start Date: 08/29/20 Status: Ordered tiZANidine 4 mg oral tablet 4 mg, 1, tablet, By Mouth, 3 times a day, PRN, # 90 tablet, Refills 11, Tot. Refills 11, Maintenance, as needed for muscle spasm, 07/08/20 15:40:00 EDT, Route to Pharmacy Electronically, [facility], 188, cm, 07/08/20 13:42:00 EDT, Height, [...]
--- OUTSIDE RECORDS SUMMARY | 2023-10-11 08:11 | XMS_ITS | Continuity of Care Document ---
Author Organization [facility] Address [address] [place] [address]- Care Team Providers Care Assistant Foreman Name Role Phone Vamshi Man MD Primary Care Physician Encounter [facility] Date(s): 04/04/19 - 04/14/[address] [address]- [facility] Attending Physician: Savanna Liu Admitting Physician: AdmSavanna galo Referring Physician: Admtr, Joe8 Allergies, Adverse Reactions, Alerts Substance Reaction Severity [...] Comment: [11/27/2017] REceived at [facility] at [place], [place]; ordered by Dr Michael Oliveira 12Location [...] 10/30/18 7:28:48 EDT, Route to Pharmacy Electronically, [id number], [facility] Start Date: 10/30/18 Status: Ordered AutoCPAP [...] 4 times a day, PRN for pain, (vietnamese) not to exceed: 16 gm/day/joint lower limb8 [...] EDT, Solution Start Date: 02/12/19 Status: Ordered empagliflozin 10 mg oral tablet 1 tablet = 10 mg, By Mouth, Daily in AM, # 30 tablet, 1 Refills, Maintenance, 02/21/19 14:34:12 EST, Tablet Start Date: 02/21/19 Status: Ordered EpiPen 2-Deejay 0.3 mg injectable [...] EDT, Compound Start Date: 12/25/18 Status: Ordered Lantus Solostar Pen 100 units/mL subcutaneous solution = 90 units, Subcutaneous Infusion, Daily at bedtime, # 15 mL, 11 Refills, Maintenance, 03/18/19 10:56:08 EST, 40u Rx written yesterday was error, 185, cm, 02/12/19 9:28:19 EDT, Height, 123.7, kg, 08/22/18 12:59:19 EDT, Dry Weight Start Date: 03/18/19 Status: Ordered latanoprost 0.005% ophthalmic solution 1 drops, Eyes, Both, Daily at bedtime, cover gap- Making Line Worker Dr Broussard, # 2.5 mL, 1 Refills, Maintenance, 02/25/14 10:47:09, Ophth Solution, 1 drops Eyes, Both Daily at bedtime,Instr:cover gap-Making Line Worker Dr Broussard Start Date: 02/25/14 Status: [...] 5 Refills, Maintenance, Route to Pharmacy Electronically, [id number], [facility] Start Date: 10/28/18 Status: Ordered metFORMIN [...] # 154 tablet, 0 Refills, Maintenance, pain, 02/12/19 11:03:13 EDT, 03/11/19 Start Date: 02/12/19 Status: Ordered methadone 10 mg oral tablet See Instructions, PRN Pain , Severe, By mouth. 2 tab in AM, 1.5 midday, 2 in evening;for pain. IDC10: G90.5 CRPS. 28 day supply. [facility]. Due 04/08 but early fill due to holiday hours, # 154 tablet, 0 Refills, Maintenance, pain, 02/12/19... Start Date: 02/12/19 Status: Ordered Metoclopramide = 10 mg, By [...] Start Date: 05/15/18 Status: Ordered nystatin topical 464202 u/gm cream 1 application, Topically, 2 times a day, for fungal rash, # 30 Gm, 0 Refills, Maintenance, 12/27/1710:41:38, Cream, 1 application Topically 2 times a day,x14 days,Instr:for fungal rash Start Date: 12/27/16 Stop Date: 01/10/17 Status: Ordered nystatin-triamcinolone topical 286001 u/gm-0.1% ointment 1 applicator, Topically, 3 times [...] 11/29/18 11:27:43 EDT, Route to Pharmacy Electronically, [id number], [facility] Start Date: 11/29/18 Status: Ordered Testosterone Cypionate = 0.75 mg, Intramuscular, Every 14 days, Adm. today to RG Lot [id number] exp: 02/2020, 0 Refills, Maintenance, 11/14/18 14:06:08 EDT Start Date: 11/14/18 Status: Ordered testosterone enanthate 200 mg/mL intramuscular solution 0.75 mL, Intramuscular, Every 14 days, [facility], # 5 mL, 5 Refills, Maintenance, 12/25/18 9:56:09 EDT Start Date: 12/25/18 Status: Ordered tiZANidine 4 mg oral tablet 4 mg, 1, tablet, By Mouth, 3 times a day, PRN, # 90 tablet, Refills 11, Tot. Refills 11, Maintenance, as needed for muscle spasm, 02/04/19 21:34:51 EDT, Route to Pharmacy Electronically, NCPDP_[id number], [facility] Start Date: 02/04/19 Status: Ordered Problem List Condition Effective Dates Status Health Status Inform ant Alcohol abuse - per MH josé 2016(Confirmed) Active Allergic rhinitis(Confirmed) Active Anxiety [...] ? chr regional pain syndrome 4s/p Modified [place] procedure, repair of conjoined tendon of extensor [...]
--- OUTSIDE RECORDS SUMMARY | 2023-10-11 08:12 | XMS_ITS | Continuity of Care Document ---
Author Organization [facility] Address [address] [place] [address]- Care Team Providers Care Senior Asset Manager Name Role Phone Vamshi Man MD Primary Care Physician Encounter [facility] Date(s): 10/12/21 - 01/26/22 [facility] [address]- Attending Physician: Vamshi Man MD Admitting Physician: [...] Vaccine Date Status Refusal Reason SARS-CoV-2 mRNA ([id number]) vax 11/11/21 Given SARS-CoV-2 (COVID-19) mRNA BNT-162b2 [...] Bertrand 12Result Comment: [11/27/2017] REceived at [facility] at [place], [place]; ordered by Dr Michael Oliveira 13Location [...] 7x/wk total. Dx: E11, 11/18/20 15:30:00 EDT, [facility], 188, cm, 09/22/20 8:33:00 EDT, [...] tablet, 5 Refills, Maintenance, 11/20/21 13:03:00 EDT, [facility], 188, cm, 11/11/21 12:46:00 EDT, Height, 125.2, kg, 06/20/20 14:28:00 EST, Dry Weight Start Date: 11/20/21 Status: Ordered atorvastatin 40 mg oral tablet 1 tablet, By Mouth, Daily, # 90 tablet, 1 Refills, [facility], 188, cm, 09/15/21 12:49:00EDT, Height, 125.2, [...] 2 Refills, Maintenance, 09/15/21 14:49:00 EDT, Cream, [facility], 1 application Topically 2 times a [...] 06/25/20 15:39:00 EST, Route to Pharmacy Electronically, [facility], Partial f... Start Date: 06/25/20 Status: Ordered diclofenac 1% topical gel = 2 Gm, Topically, 4 times a day, PRN for pain, (y[place]ut) not to exceed: 16 gm/day/joint lower limb8 gm/day/joint of upper limb 32 gm/day may interchange for cream, # 100 Gm, 5 Refills, Maintenance,07/08/20 15:35:00 EDT, Gel, [facility] Start Date: 07/08/20 Status: Ordered docusate [...] May cause drowsiness, do notdrive after taking Greek, # 28 tablet, 0 Refills, Maintenance, 01/11/22 6:31:00 EDT, [facility], 188, cm, 12/26/21 14:06:00 EDT, Height... Start Date: 01/11/22 Stop Date: 01/25/22 Status: Ordered Glucose Monitor See Instructions, PRN, [...] 11 Refills, Maintenance, 11/28/21 21:27:00 EDT, Solution, [facility], 188, cm, 11/22/21 16:37:00 EDT, Height, 122.63, kg, 11/22/21 16:37:00 EDT, Dry We... Start Date: 11/28/21 Status: Ordered Jardiance 10 mg oral tablet 1 tablet, By Mouth, Daily in AM, # 30 tablet, 11 Refills, Maintenance, 07/25/21 20:18:00 EDT, [facility], 188, cm, 06/28/21 16:20:00 EDT, Height, [...] mL, 5 Refills, Maintenance, 01/23/22 8:43:00 EDT, [facility], 188, cm, 12/26/21 14:06:00 EDT, Height, 122.63, kg, 11/22/21 16:37:00 EDT, Dry Weight Start Date: 01/23/22 Status: Ordered latanoprost 0.005% ophthalmic solution 0 Refills, Maintenance, 05/11/20 16:57:00 EST Start Date: 05/11/20 Status: Ordered lidocaine 5% topical ointment See Instructions, PRN Pain , Moderate, 1 APPLICATION TOPICALLY 3 TIMES A DAY, # 50 Gm, 5 Refills, Maintenance, 12/22/21 7:28:00 EDT, [facility], same Rx was sent 11/11 w/ 5 refills, 1 APPLICATION TOPICALLY 3 TIMES A DAY,PRN:Pain , Moderate, 1... Start Date: 12/22/21 Status: Ordered LORazepam 1 mg oral tablet See Instructions, PRN for anxiety, 2 tablets By Mouth 1 hours prior to MRI, # 2 tablet, 0 Refills, Maintenance, 01/12/22 7:27:00 EDT, Tablet, [facility], 188, cm, 12/26/21 14:06:00 EDT, Height, 122.63, kg, 11/22/21 16:37:00 EDT, Dry Weight Start Date: 01/12/22 Status: Ordered losartan 100 mg oral tablet 1 tablet, By Mouth, Daily in AM, # 30 tablet, 5 Refills, [facility], 188, cm, 09/15/21 12:49:00 EDT, Height, 125.2, kg, 06/20/20 14:28:00 EST, Dry Weight Start Date: 10/04/21 Status: Ordered LUBRIC TEARS CALE 0.4-0.3% Milliliters INSTILL 1 DROP FOUR TIMES DAILY EACH EYE Start Date: 05/11/20 Status: Ordered meloxicam 15 mg oral tablet 1 tablet = 15 mg, By Mouth, Daily, Take with food PRN back pain Greek, # 14 tablet, 0 Refills, Maintenance, 11/25/21 13:26:00 EDT, [facility], Partial fill upon patient request if the prescription is for a schedule II opioid drug., 188,... Start Date: 11/25/21 Stop Date: 12/09/21 Status: Ordered metFORMIN 750 mg oral tablet, extended release 1 tablet = 750 mg, By Mouth, Daily, [replaces the metformin 500mg bid], # 30 tablet, 11 Refills, Maintenance, 11/22/21 17:53:00 EDT, ER Tablet, [facility], Partial fill upon patient requestif the prescription is for a schedule II opioid alessandra... Start Date: 11/22/21 Status: Ordered methadone 10 mg oral tablet See Instructions, By mouth. 2 tab in AM, 1.5 midday, 2 in evening;for pain. IDC10: G90.5 CRPS. 28 day supply. [facility]., # 154 tablet, 0 Refills, Maintenance, pain, 11/08/21 7:19:00 EDT, [facility], May partial fill., 188, cm,... Start Date: 11/08/21 Status: Ordered methadone 10 mg oral tablet See Instructions, By mouth. 2 tab in AM, 1.5 midday, 2 in evening;for pain. IDC10: G90.5 CRPS. 28 day supply. [facility]., # 154 tablet, 0 Refills, Maintenance, pain, 12/06/21 7:20:00 EDT, [facility], May partial fill., 12/06/21,... Start Date: 12/06/21 Status: Ordered methadone 10 mg oral tablet See Instructions, By mouth. 2 tab in AM, 1.5 midday, 2 in evening;for pain. IDC10: G90.5 CRPS. 28 day supply. [facility]., # 154 tablet, 0 Refills, Maintenance, pain, 01/31/22 7:25:00 EDT, [facility], May partial fill., 01/31/22,... Start Date: 01/31/22 Status: Ordered methadone 10 mg oral tablet See Instructions, By mouth. 2 tab in AM, 1.5 midday, 2 in evening;for pain. IDC10: G90.5 CRPS. 28 day supply. [facility]., # 154 tablet, 0 Refills, Maintenance, pain, 01/03/22 7:12:00 EDT, [facility], May partial fill., 01/03/22,... Start Date: 01/03/22 Status: Ordered Metoclopramide = 10 mg, By Mouth, 3 times a day before meals and bedtime, 0 Refills, Maintenance, 08/20/18 13:55:26 EDT Start Date: 08/20/18 Status: Ordered multivitamin Multiple Vitamins oral tablet 1 tablet, By Mouth, Daily, B complex multivitamin, # 30 tablet, 11 Refills, Maintenance, 11/22/21 17:58:00 EDT, [facility], Partial fill upon patient request if the prescription is for a schedule II opioid drug., 1 tablet By Mouth Daily,Inst... Start Date: 11/22/21 Status: Ordered Narcan 4 mg/0.1 mL nasal spray = 4 mg, Nares, Both, Once, may repeat every 2 to 3 minutes until patient responds, # 2 each, 0 Refills, Soft Stop, 05/25/21 10:17:00 EST, [facility], 188, cm, 05/25/21 9:26:00 EST, Height, 125.2, kg, 06/20/20 14:28:00 EST, Dry Weight Start Date: 05/25/21 Status: Ordered nystatin-triamcinolone topical 303547 u/gm-0.1% ointment 1 applicator, Topically, 3 times a day, to foreskin area FOR 3 DAYS then switch to other antifungal, # 15 Gm, 1 Refills, Maintenance, 05/25/21 10:20:00 EST, [facility], 1 applicator Topically 3 times a [...] Sandoval Start Date: 08/20/18 Status: Ordered Pen [place], 31 G x 8 mm BD Ultra Fine III See Instructions, # 150 each, Refills 11, Tot. Refills 11, Maintenance, use 2- 5x/day Type 2 Diabetes Mellitus on Lantus and Humalog insulin with pen, 02/27/22 13:16:00 EST, Compound, 188, cm, 11/22/21 16:37:00 EDT, Height, 122.63, kg, 11/22/21 16:37:0... Start Date: 02/27/22 Stop Date: 02/22/23 Status: Ordered Pen [place], 31 G x 8 mm BD Ultra [...] each, 11 Refills, Maintenance, 09/15/21 14:29:00 EDT, [facility], Partial fill upon patient request if the prescription is for a schedule II opioid drug., 188, cm, 09/15/21 12:4... Start Date: 09/15/21 Status: Ordered Singulair 10 mg oral tablet 10 mg, 1, tablet, By Mouth, Daily, # 90 tablet, Refills 3, Tot. Refills 3, Maintenance, 03/30/20 21:31:00 EST, Route to Pharmacy Electronically, [facility], 185, cm, 02/25/20 10:29:00 EST, Height, [...] Intramuscular, Every 14 days, IM or subcutaneous. [facility]., # 5 mL, 5 Refills, Maintenance, 11/22/21 17:58:00 EDT, [facility], 188, cm, 11/22/21 16:37:00 EDT, Height, 122.63, kg, 11/22/21 16:37:00 EDT, Dry Weight Start Date: 11/22/21 Status: Ordered tiZANidine 4 mg oral tablet 4 mg, 1, tablet, By Mouth, 3 times a day, PRN, # 90 tablet, Refills 11, Tot. Refills 11, Maintenance, as needed for muscle spasm, 08/12/21 11:09:00 EDT, Route to Pharmacy Electronically, [facility], 188, cm, 07/27/21 8:34:00 EDT, Height, 125... Start Date: 08/12/21 Status: Ordered traZODone 100 mg oral tablet TAKE ONE TO TWO TABLETS BY MOUTH AT BEDTIME NEEDED Damaris Morales Start Date: 05/11/20 Status: Ordered Tylenol Extra Strength 500 mg oral tablet 2 tablet = 1,000 mg, By Mouth, 3 times a day, # 30 tablet, 11 Refills, Maintenance, 03/24/21 21:00:00 EST, [facility], 188, cm, 03/22/21 14:17:00 EST, Height, 125.2, kg, 06/20/20 14:28:00 EST, Dry Weight Start Date: 03/24/21 Status: Ordered Vitamin D3 1000 intl units oral tablet 1 tablet, By Mouth, Daily, for 30 days, # 30 tablet, 11 Refills, Physician Stop 10/30/22 17:07:00 EDT, 11/04/21 17:07:00 EDT, [facility], 188, cm, 09/15/21 12:49:00 EDT, Height, [...] ? chr regional pain syndrome 4s/p Modified [place] procedure, repair of conjoined tendon of extensor [...] 11/11/21 Sex Male Patient Care team information Personnel Name: Donovan DE LOS SANTOS, Vamshi Oshea Address: Address: [address] [place] [address]
--- OUTSIDE RECORDS SUMMARY | 2023-10-11 08:12 | XMS_ITS | Continuity of Care Document ---
Author Organization [facility] Address [address] [place] [address]- Care Team Providers Care Hollow Ware Maker Name Role Phone Vamshi Man MD Primary Care Physician [phone] Encounter [facility] Date(s): 03/24/22 - 04/23/22 [facility]/[place] [address]- [place] Allergies, Adverse Reactions, Alerts Substance Reaction Severity Status Other Food Allergy fresh peaches - itch y mouth, throat and lips swell Active penicillin 1 rash Resolved Latex RASH Active 1rash per mother as child. Did take a penicillin for treatment of H pylori per pt w/o problem. Immunizations Given and Recorded Vaccine Date Status Refusal Reason [id number] 12y+ bivalent booster vax 02/16/22 Given pneumococcal 20-valent conjugate vaccine 02/16/22 Given SARS-CoV-2 mRNA ([id number]) vax 11/11/21 Given SARS-CoV-2 (COVID-19) mRNA BNT-162b2 [...] Elissa Bertrand 12Result Comment: [11/27/2017] REceived at [facility] [place], [place]; ordered by Dr Michael Oliveira 13Location [...] 7x/wk total. Dx: E11, 11/18/20 15:30:00 EDT, [facility], 188, cm, 09/22/20 8:33:00 EDT, [...] tablet, 5 Refills, Maintenance, 11/20/21 13:03:00 EDT, [facility], 188, cm, 11/11/21 12:46:00 EDT, Height, 125.2, kg, 03/07/21 14:28:00 EST, Dry Weight Start Date: 11/20/21 Status: Ordered atorvastatin 40 mg oral tablet 1 tablet, By Mouth, Daily, # 90 tablet, 1 Refills, Maintenance, 04/10/22 12:34:00 EST, [facility], 188, cm, 02/16/22 13:07:00 EDT, Height, [...] 2 Refills, Maintenance, 02/16/22 23:34:00 EDT, Cream, [facility], 1 application Topically 2 times a day,Instr:apply to penile rash, 188, cm, 02/16/22 13:07:00 EDT, Heigh... Start Date: 02/16/22 Status: Ordered diclofenac 1% topical gel = 2 Gm, Topically, 4 times a day, PRN for pain, (palestinian) not to exceed: 16 gm/day/joint lower limb8 [...] 11 Refills, Maintenance, 03/30/22 23:35:00 EST, Solution, [facility], 188, cm, 02/16/22 13:07:00 EDT, Height, [...] May cause drowsiness, do notdrive after taking Nigerian, # 28 tablet, 0 Refills, Maintenance, 04/07/22 15:51:00 EST, [facility], 188, cm, 02/16/22 13:07:00 EDT, Heigh... Start [...] 11 Refills, Maintenance, 11/28/21 21:27:00 EDT, Solution, [facility], 188, cm, 11/22/21 16:37:00 EDT, Height, [...] mL, 5 Refills, Maintenance, 01/23/22 8:43:00 EDT, [facility], 188, cm, 12/26/21 14:06:00 EDT, Height, 122.63, kg, 11/22/21 16:37:00 EDT, Dry Weight Start Date: 01/23/22 Status: Ordered latanoprost 0.005% ophthalmic solution 0 Refills, Maintenance, 05/11/20 16:57:00 EST Start Date: 05/11/20 Status: Ordered lidocaine 5% topical ointment See Instructions, PRN Pain , Moderate, 1 APPLICATION TOPICALLY 3 TIMES A DAY, # 50 Gm, 5 Refills, Maintenance, 12/22/21 7:28:00 EDT, [facility], same Rx was sent 11/11 w/ [...] 0 Refills, Maintenance, 01/12/22 7:27:00 EDT, Tablet, [facility], 188, cm, 12/26/21 14:06:00 EDT, Height, 122.63, kg, 11/22/21 16:37:00 EDT, Dry Weight Start Date: 01/12/22 Status: Ordered losartan 100 mg oral tablet 1 tablet, By Mouth, Daily in AM, # 30 tablet, 5 Refills, 03/20/22 10:07:00 EST, [facility], 188, cm, 02/16/22 13:07:00 EDT, Height, 122.63, kg, 11/22/21 16:37:00 EDT, Dry Weight Start Date: 03/20/22 Status: Ordered LUBRIC TEARS CALE 0.4-0.3% Milliliters INSTILL 1 DROP FOUR TIMES DAILY EACH EYE Start Date: 05/11/20 Status: Ordered meloxicam 15 mg oral tablet 1 tablet = 15 mg, By Mouth, Daily, Take with food PRN back pain Nigerian, # 14 tablet, 0 Refills, Maintenance, 11/25/21 13:26:00 EDT, [facility], Partial fill upon patient request if the prescription is for a schedule II opioid drug., 188,... Start Date: 11/25/21 Stop Date: 12/09/21 Status: Ordered metFORMIN 750 mg oral tablet, extended release 1 tablet = 750 mg, By Mouth, Daily, [replaces the metformin 500mg bid], # 30 tablet, 11 Refills, Maintenance, 11/22/21 17:53:00 EDT, ER Tablet, [facility], Partial fill upon patient requestif the prescription is for a schedule II opioid alessandra... Start Date: 11/22/21 Status: Ordered methadone 10 mg oral tablet See Instructions, By mouth. 2 tab in AM, 1.5 midday, 2 in evening;for pain. IDC10: G90.5 CRPS. 28 day supply. [facility]., # 154 tablet, 0 Refills, Maintenance, pain, 01/31/22 7:25:00 EDT, [facility], May partial fill., 01/31/22,... Start Date: 01/31/22 Status: Ordered methadone 10 mg oral tablet See Instructions, By mouth. 2 tab in AM, 1.5 midday, 2 in evening;for pain. IDC10: G90.5 CRPS. 28 day supply. [facility]., # 154 tablet, 0 Refills, Maintenance, pain, 02/28/22 14:14:00 EST,[facility], May partial fill. May fill... Start Date: 02/28/22 Status: Ordered methadone 10 mg oral tablet See Instructions, By mouth. 2 tab in AM, 1.5 midday, 2 in evening;for pain. IDC10: G90.5 CRPS. 28 day supply. [facility]., # 154 tablet, 0 Refills, Maintenance, pain, 04/25/22 23:30:00 EST,[facility], May partial fill., 04/25/22... Start Date: 04/25/22 Status: Ordered methadone 10 mg oral tablet See Instructions, By mouth. 2 tab in AM, 1.5 midday, 2 in evening;for pain. IDC10: G90.5 CRPS. 28 day supply. [facility]., # 154 tablet, 0 Refills, Maintenance, pain, 03/28/22 23:30:00 EST,[facility], May partial fill., 03/28/22... Start Date: 03/28/22 Status: Ordered Metoclopramide = 10 mg, By Mouth, 3 times a day before meals and bedtime, 0 Refills, Maintenance, 08/20/18 13:55:26 EDT Start Date: 08/20/18 Status: Ordered multivitamin Multiple Vitamins oral tablet 1 tablet, By Mouth, Daily, B complex multivitamin, # 30 tablet, 11 Refills, Maintenance, 11/22/21 17:58:00 EDT, [facility], Partial fill upon patient request [...] 1 Refills, Soft Stop, 02/16/22 23:38:00 EDT, [facility], 188, cm, 02/16/22 13:07:00 EDT, Height,122.63, [...] EDT Start Date: 02/16/22 Status: Ordered Pen [place], 31 G x 8 mm BD Ultra [...] each, 11 Refills, Maintenance, 09/15/21 14:29:00 EDT, [facility], Partial fill upon patient request if the prescription is for a schedule II opioid drug., 188, cm, 09/15/21 12:4... Start Date: 09/15/21 Status: Ordered Singulair 10 mg oral tablet 10 mg, 1, tablet, By Mouth, Daily, # 90 tablet, Refills 3, Tot. Refills 3, Maintenance, 03/30/20 21:31:00 EST, Route to Pharmacy Electronically, [facility], 185, cm, 02/25/20 10:29:00 EST, Height, 126.81, kg, 02/25/20 10:29:00 EST, Dry Weight Start Date: 03/30/20 Status: Ordered tamsulosin 0.4 mg oral capsule 0.4 mg, 1, capsule, By Mouth, Daily, Per urology, # 30 capsule, Refills 11, Tot. Refills 11, Maintenance, 02/16/22 23:29:00 EDT, Route to Pharmacy Electronically, [facility], 188, cm, 02/16/22 13:07:00 EDT, Height, [...] Intramuscular, Every 14 days, IM or subcutaneous. [facility]., # 2 mL, 5 Refills, Maintenance, 02/05/22 22:55:00 EDT, [facility], 188, cm, 12/26/21 14:06:00 EDT, Height, 122.63, kg, 11/22/21 16:37:00 EDT, Dry Weight Start Date: 02/05/22 Status: Ordered tiZANidine 4 mg oral tablet 4 mg, 1, tablet, By Mouth, 3 times a day, PRN, # 90 tablet, Refills 11, Tot. Refills 11, Maintenance, as needed for muscle spasm, 08/12/21 11:09:00 EDT, Route to Pharmacy Electronically, [facility], 188, cm, 07/27/21 8:34:00 EDT, Height, 125... Start Date: 08/12/21 Status: Ordered traZODone 100 mg oral tablet TAKE ONE TO TWO TABLETS BY MOUTH AT BEDTIME NEEDED Damaris Morales Start Date: 05/11/20 Status: Ordered Tylenol Extra Strength 500 mg oral tablet 2 tablet = 1,000 mg, By Mouth, 3 times a day, # 30 tablet, 11 Refills, Maintenance, 03/24/21 21:00:00 EST, [facility], 188, cm, 03/22/21 14:17:00 EST, Height, 125.2, kg, 06/20/20 14:28:00 EST, Dry Weight Start Date: 03/24/21 Status: Ordered Vitamin D3 1000 intl units oral tablet 1 tablet, By Mouth, Daily, for 30 days, # 30 tablet, 11 Refills, Physician Stop 10/30/22 17:07:00 EDT, 11/04/21 17:07:00 EDT, [facility], 188, cm, 09/15/21 12:49:00 EDT, Height, [...] ? chr regional pain syndrome 4s/p Modified [place] procedure, repair of conjoined tendon of extensor [...] Name: Vamshi Man MD Position: [facility] Primary Care Physician Member Role: PCP Address: Address: [address] [place] [address]- Name: Miki Rodriguez MD Position: S Renal MD Member Role: Lifetime Consulting Physician Address: Address: [address] [facility] [place] [address]- Care Team Related Persons Name: BRANDON MTZ Address: home [address] [place] [address] Name: BRANDON BARKER Address: [address] [place] [address] Name: ROSALINDA BERTRAND Address: home [address] [place] [address]
--- OUTSIDE RECORDS SUMMARY | 2023-10-11 08:12 | XMS_ITS | Continuity of Care Document ---
Author Organization [facility] Address [address] [place] [address]- Care Team Providers Care Senior Software Project Manager Name Role Phone Vamshi Man MD Primary Care Physician Encounter [facility] Date(s): 12/25/22 - 01/24/23 [facility] [address]- [place] Allergies, Adverse Reactions, Alerts Substance Reaction Severity Status penicillin 1 rash Resolved Latex RASH Active Other Food Allergy fresh peaches - itch y mouth, throat and lips swell Active 1rash per mother as child. Did take a penicillin for treatment of H pylori per pt w/o problem. Immunizations Given and Recorded Vaccine Date Status Refusal Reason [id number] 12y+ bivalent booster vax 02/16/22 Given pneumococcal 20-valent conjugate vaccine 02/16/22 Given Influenza Virus Vaccine (oldterm) 1 01/27/22 Recor ded Influenza Virus Vaccine (oldterm) 01/26/21 Recorde d SARS-CoV-2 mRNA ([id number]) vax 11/11/21 Given SARS-CoV-2 (COVID-19) mRNA BNT-162b2 [...] Elissa Bertrand 13Result Comment: [11/27/2017] REceived at [facility] [place], [place]; ordered by Dr Michael Oliveira 14Location [...] tablet, 5 Refills, Maintenance, 09/06/22 21:30:00 EDT, [facility], 188, cm, 07/18/22 14:01:00 EDT, Height, 122.63, kg, 11/22/21 16:37:00 EDT, Dry Weight Start Date: 09/06/22 Status: Ordered atorvastatin 40 mg oral tablet See Instructions, TAKE 1 TABLET BY MOUTH EVERY DAY, # 90 tablet, 1 Refills, Maintenance, 11/02/22 16:19:00 EDT, [facility], 188, cm, 10/19/22 13:16:00 EDT, Height, [...] 0 Refills, Maintenance, 05/15/22 16:24:00 EST, Tablet, [facility], Partial fill upon patient request [...] 2 Refills, Maintenance, 04/27/22 23:43:00 EST, Cream, [facility], 1 application Topically 2 times a day,Instr:apply to penile rash, 188, cm, 04/27/22 13:44:00 EST, Francheska... Start Date: 04/27/22 Status: Ordered diclofenac 1% topical gel = 2 Gm, Topically, 4 times a day, PRN for pain, ([place] timore[place]) not to exceed: 16 gm/day/joint lower limb8 gm/day/joint of upper limb 32 gm/day may interchange for cream, # 100 Gm, 11 Refills, Maintenance, 04/15/22 13:02:00 EST, Gel, [facility]... Start Date: 04/15/22 Status: Ordered docusate [...] 0 Refills, Maintenance, 09/03/22 13:58:00 EDT, Tablet, [facility], 188, cm, 07/18/22 14:01:00 EDT, Height, 122.63, kg, 11/22/21... Start Date: 09/03/22 Status: Ordered fexofenadine 60 mg oral tablet 1 tablet = 60 mg, By Mouth, 2 times a day, PRN for allergy symptoms, # 20 tablet, 0 Refills, Maintenance, 09/03/22 13:58:00 EDT, Tablet, [facility], Partial fill upon patient request [...] May cause drowsiness, do notdrive after taking Slovak, # 28 tablet, 0 Refills, Maintenance, 04/07/22 15:51:00 EST, [facility], [facility], 02/16/22 13:07:00 EDT, Heigh... Start [...] 11 Refills, Maintenance, 11/28/21 21:27:00 EDT, Solution, [facility], 188, cm, 11/22/21 16:37:00 EDT, Height, [...] mL, 5 Refills, Maintenance, 08/02/22 14:51:00 EDT, [facility], 188, cm, 07/18/22 14:01:00 EDT, Height, 122.63,kg, 11/22/21 16:37:00 EDT, Dry Weight Start Date: 08/02/22 Status: Ordered latanoprost 0.005% ophthalmic solution 0 Refills, Maintenance, 05/11/20 16:57:00 EST Start Date: 05/11/20 Status: Ordered lidocaine 5% topical ointment See Instructions, PRN Pain , Moderate, 1 APPLICATION TOPICALLY 3 TIMES A DAY, # 50 Gm, 5 Refills, Maintenance, 12/22/21 7:28:00 EDT, [facility], same Rx was sent 11/11 w/ [...] 0 Refills, Maintenance, 01/12/22 7:27:00 EDT, Tablet, [facility], 188, cm, 12/26/21 14:06:00 EDT, Height, 122.63, kg, 11/22/21 16:37:00 EDT, Dry Weight Start Date: 01/12/22 Status: Ordered losartan 100 mg oral tablet See Instructions, TAKE 1 TABLET BY MOUTH DAILY IN AM, # 30 tablet, 4 Refills, Maintenance, 10/06/2315:25:00 EDT, [facility], 188, cm, 07/18/22 14:01:00 EDT, Height, 122.63, kg, 11/22/21 16:37:00 EDT, Dry Weight Start Date: 10/05/22 Status: Ordered LUBRIC TEARS CALE 0.4-0.3% Milliliters INSTILL 1 DROP FOUR TIMES DAILY EACH EYE Start Date: 05/11/20 Status: Ordered magnesium oxide 400 mg oral tablet 1 tablet = 400 mg, By Mouth, Daily, # 30 tablet, 11 Refills, Maintenance, 04/27/22 15:29:00 EST, Tablet, [facility], Partial fill upon patient request if the prescription is for a schedule II opioid drug., 188, cm, 04/27/22 13:44:00 EST, Hei... Start Date: 04/27/22 Status: Ordered meloxicam 15 mg oral tablet 1 tablet = 15 mg, By Mouth, Daily, Take with food PRN back pain Slovak, # 14 tablet, 0 Refills, Maintenance, 11/25/21 13:26:00 EDT, [facility], Partial fill upon patient request if the prescription is for a schedule II opioid drug., 188,... Start Date: 11/25/21 Stop Date: 12/09/21 Status: Ordered metFORMIN 750 mg oral tablet, extended release 1 tablet = 750 mg, By Mouth, Daily, [replaces the metformin 500mg bid], # 30 tablet, 5 Refills, Maintenance, 11/01/22 8:40:00 EDT, ER Tablet, [facility], Partial fill upon patient request if the prescription is for a schedule II opioid drug.... Start Date: 11/01/22 Status: Ordered methadone 10 mg oral tablet See Instructions, By mouth. 2 tab in AM, 1.5 midday, 2 in evening;for pain. IDC10: G90.5 CRPS. 28 day supply. [facility]., # 154 tablet, 0 Refills, Maintenance, pain, 12/05/22 17:25:00 EDT,[facility], May partial fill., 12/05/22... Start Date: 12/05/22 Status: Ordered methadone 10 mg oral tablet See Instructions, By mouth. 2 tab in AM, 1.5 midday, 2 in evening;for pain. IDC10: G90.5 CRPS. 28 day supply. [facility]., # 154 tablet, 0 Refills, Maintenance, pain, 01/02/23 17:25:00 EDT,[facility], May partial fill., 01/02/23... Start Date: 01/02/23 Status: Ordered methadone 10 mg oral tablet See Instructions, By mouth. 2 tab in AM, 1.5 midday, 2 in evening;for pain. IDC10: G90.5 CRPS. 28 day supply. [facility]., # 154 tablet, 0 Refills, Maintenance, pain, 11/07/22 17:25:00 EDT,[facility], August partial fill., 11/07/22... Start Date: 11/07/22 Status: Ordered methadone 10 mg oral tablet See Instructions, By mouth. 2 tab in AM, 1.5 midday, 2 in evening;for pain. IDC10: G90.5 CRPS. 28 day supply. [facility]., # 154 tablet, 0 Refills, Maintenance, pain, 04/25/22 23:30:00 EST,[facility], August partial fill., 04/25/22... Start Date: [...] 1 Refills, Soft Stop, 02/16/22 23:38:00 EDT, [facility], 188, cm, 02/16/22 13:07:00 EDT, [...] Date: 02/16/22 Status: Ordered PEN NEEDLES MIS [id number] PEN NEEDLES MIS [id number], See Instructions, # 100 each, 5 Refills, Maintenance, USE DAILY TYPE 2 DIABETES MELLITUS ON INSULIN WITH PEN, 08/25/22 16:39:00 EDT, 188, cm, 07/18/22 14:01:00 EDT, Height, 122.63, kg, 11/22/21 16:37:00 EDT, Dry Weight Start Date: 08/25/22 Status: Ordered Pen [place], 31 G x 8 mm BD [...] mL, 11 Refills, Maintenance, 04/27/22 23:40:00 EST, [facility], 188, cm, 04/27/22 13:44:00 EST, Height, 122.63, kg, 11/22/21 16:37:00 EDT,... Start Date: 04/27/22 Status: Ordered Singulair 10 mg oral tablet 10 mg, 1, tablet, By Mouth, Daily, # 90 tablet, Refills 3, Tot. Refills 3, Maintenance, 03/30/20 21:31:00 EST, Route to Pharmacy Electronically, [facility], 185, cm, 02/25/20 10:29:00 EST, Height, 126.81, kg, 02/25/20 10:29:00 EST, Dry Weight Start Date: 03/30/20 Status: Ordered Tab-A-Kelsie oral tablet 1 tablet, By Mouth, Daily, # 30 tablet, 5 Refills, Maintenance, 12/19/22 20:41:00 EDT, [facility], 30, TAKE 1 TABLET BY MOUTH EVERY DAY, 188, cm, 10/19/22 13:16:00 EDT, Height, 122.63, kg, 11/22/21 16:37:00 EDT, Dry Weight Start Date: 12/19/22 Status: Ordered tamsulosin 0.4 mg oral capsule 0.8 mg, 2, capsule, By Mouth, Daily, dose increase, # 60 capsule, Refills 11, Tot. Refills 11, Maintenance, 07/27/22 11:57:00 EDT, Route to Pharmacy Electronically, [facility], 188, cm, 07/18/22 14:01:00 EDT, Height, [...] Intramuscular, Every 14 days, IM or subcutaneous. [facility]., # 2 mL, 5 Refills, Maintenance, 10/27/22 17:23:00 EDT, [facility], 188, cm, 10/19/22 13:16:00 EDT, Height, 122.63, kg, 11/22/21 16:37:00 EDT, Dry Weight Start Date: 10/27/22 Status: Ordered tiZANidine 4 mg oral tablet 4 mg, 1, tablet, By Mouth, 3 times a day, PRN, # 90 tablet, Refills 11, Tot. Refills 11, Maintenance, as needed for muscle spasm, 08/18/22 8:03:00 EDT, Route to Pharmacy Electronically, [facility], 188, cm, 07/18/22 14:01:00 EDT, Height, 122... Start Date: 08/18/22 Status: Ordered traZODone 100 mg oral tablet TAKE ONE TO TWO TABLETS BY MOUTH AT BEDTIME NEEDED S. McAnulty Start Date: 05/11/20 Status: Ordered Tylenol Extra Strength 500 mg oral tablet 2 tablet = 1,000 mg, By Mouth, 3 times a day, # 30 tablet, 11 Refills, Maintenance, 03/24/21 21:00:00 EST, [facility], 188, cm, 03/22/21 14:17:00 EST, Height, [...] Care Member Role: PCP Address: Address: [address] [place] [address]- Name: Miki Rodriguez MD Position: [facility] Renal MD Member Role: Lifetime Consulting Physician Address: Address: [address] [facility] [place] [address]- Care Team Related Persons Name: BRANDON MTZ Address: home [address] [place] [address] Name: BRANDON BARKER Address: home [address] [place] [address] Name: ROSALINDA BERTRAND Address: home [address] [place] [address]
--- OUTSIDE RECORDS SUMMARY | 2023-10-11 08:12 | XMS_ITS | Continuity of Care Document ---
Author Organization [facility] Address [address] [place] [address]- Care Team Providers Care Buoy Tender Name Role Phone Vamshi Man MD Primary Care Physician [phone] Encounter [facility] Date(s): 08/30/20 - 09/29/20 [facility]/[address] [address]- Allergies, Adverse Reactions, Alerts Substance Reaction Severity [...] Elissa Bertrand 12Result Comment: [11/27/2017] REceived at [facility] [place], [place]; ordered by Dr Michael Oliveira 13Location [...] 03/30/20 21:31:00 EST, Route to Pharmacy Electronically, [facility], dupilcate rx. original sent 11/04/19. remaining refills sent., 185, cm, 02/25/20 10:29:00 EST, Hei... Start Date: 03/30/20 Status: Ordered AutoCPAP 9-18 with heated humidification AutoCPAP 9-18 with heated humidification, See Instructions, # 1 each, Refills 0, Tot. Refills 0, Maintenance, use overnight and naps from [facility], 11/04/18 12:28:22 EDT, Compound Start Date: 11/04/18 [...] capsule, 3 Refills, Maintenance, 03/30/20 21:36:00 EST, [facility], 185, cm, 02/25/20 10:29:00 EST, Height, 126.81, kg, 02/25/20 10:29:00 EST, Dry Weight Start Date: 03/30/20 Status: Ordered clotrimazole 1% topical cream 1 application, Topically, 2 times a day, apply to penile rash, # 30 Gm, 2 Refills, Maintenance, 01/07/20 14:49:00 EDT, Cream, [facility], 1 application Topically 2 times a day,Instr:apply to penile rash, 185, cm, 01/07/20 13:55:00 EDT, Francheska... Start Date: 01/07/20 Status: Ordered Cozaar 100 mg oral tablet 1 tablet = 100 mg, By Mouth, Daily in AM, # 30 tablet, 11 Refills, Maintenance, 09/22/20 9:41:00 EDT, Tablet, [facility], duplicate rx. original sent 09/16/19. remaining [...] 06/25/20 15:39:00 EST, Route to Pharmacy Electronically, [facility], Partial f... Start Date: 06/25/20 Status: Ordered diclofenac 1% topical gel = 2 Gm, Topically, 4 times a day, PRN for pain, (iranian) not to exceed: 16 gm/day/joint lower limb8 gm/day/joint of upper limb 32 gm/day may interchange for cream, # 100 Gm, 5 Refills, Maintenance,07/08/20 15:35:00 EDT, Gel, [facility] Start Date: 07/08/20 Status: Ordered docusate [...] 11 Refills, Maintenance, 02/15/20 21:05:00 EST, Solution, [facility], 185, cm, 01/07/20 13:55:00 EDT, Height, [...] mL, 3 Refills, Maintenance, 07/08/20 15:42:00 EDT, [facility], Duplicate rx-Original rx sent 06/22/20. Resent., 188, cm, 07/08/20 13:42:00 EDT, Height, 125.2, kg, 06/20/20 14:28:00 EST,... Start Date: 07/08/20 Status: Ordered latanoprost 0.005% ophthalmic solution 0 Refills, Maintenance, 05/11/20 16:57:00 EST Start Date: 05/11/20 Status: Ordered Lipitor 40 mg oral tablet 1 tablet = 40 mg, By Mouth, Daily, # 90 tablet, 3 Refills, Maintenance, 03/30/20 21:30:00 EST, [facility], duplicate rx. original sent 11/04/19. remaining refill sent., 185, cm, 02/25/20 10:29:00 EST, Height, 126.81, kg, 02/25/20 10:29:00 EST... Start Date: 03/30/20 Status: Ordered LORazepam 1 mg oral tablet See Instructions, PRN for anxiety, 2 tablets By Mouth 1 hours prior to MRI, # 2 tablet, 0 Refills, Acute 09/22/21 9:45:00 EDT, 09/22/20 9:43:00 EDT, Tablet, [facility], Partial fill upon patient request if [...] 3 Refills, Maintenance, 07/08/20 15:40:00 EDT, Tablet, [facility], Duplicate rx-Original rx sent06/22/20. Resent., 188, cm, 07/08/20 13:42:00 EDT, He... Start Date: 07/08/20 Status: Ordered methadone 10 mg oral tablet See Instructions, By mouth. 2 tab in AM, 1.5 midday, 2 in evening;for pain. IDC10: G90.5 CRPS. 28 day supply. [facility]., # 154 tablet, 0 Refills, Maintenance, pain, 10/12/20 9:38:00 EDT, [facility], August partial fill., 10/12/20,... Start Date: 10/12/20 Status: Ordered methadone 10 mg oral tablet See Instructions, By mouth. 2 tab in AM, 1.5 midday, 2 in evening;for pain. IDC10: G90.5 CRPS. 28 day supply. [facility]., # 154 tablet, 0 Refills, Maintenance, pain, 11/09/20 9:38:00 EDT, [facility], August partial fill., 11/09/20,... Start Date: [...] Start Date: 05/15/18 Status: Ordered nystatin-triamcinolone topical 286646 u/gm-0.1% ointment 1 applicator, Topically, 3 times a day, to foreskin area FOR 3 DAYS then switch to other antifungal, # 15 Gm, 1 Refills, Maintenance, 07/08/20 15:34:00 EDT, [facility], 1 applicator Topically 3 times a [...] EDT Start Date: 08/20/18 Status: Ordered Pen [place], 31 G x 8 mm BD Ultra [...] 03/30/20 21:31:00 EST, Route to Pharmacy Electronically, [facility], 185, cm, 02/25/20 10:29:00 EST, Height, [...] solution 0.75 mL, Intramuscular, Every 14 days, [facility], # 5 mL, 5 Refills, Maintenance, 08/29/20 21:33:00 EDT, [facility], 188, cm, 07/08/20 13:42:00 EDT, Height, 125.2, kg, 06/20/20 14:28:00 EST, Dry Weight Start Date: 08/29/20 Status: Ordered tiZANidine 4 mg oral tablet 4 mg, 1, tablet, By Mouth, 3 times a day, PRN, # 90 tablet, Refills 11, Tot. Refills 11, Maintenance, as needed for muscle spasm, 07/08/20 15:40:00 EDT, Route to Pharmacy Electronically, [facility], 188, cm, 07/08/20 13:42:00 EDT, Height, [...] ? chr regional pain syndrome 4s/p Modified Wiley procedure, repair of conjoined tendon of extensor [...]
--- OUTSIDE RECORDS SUMMARY | 2023-10-11 08:12 | XMS_ITS | Continuity of Care Document ---
Author Organization [facility] Address [address] [place] [address]- Care Team Providers Care Field Crop Farmworker Name Role Phone Vamshi Man MD Primary Care Physician [phone] Encounter [facility] Date(s): 09/06/22 - 10/06/22 [facility] [id number]- [place] Allergies, Adverse Reactions, Alerts Substance Reaction Severity Status penicillin 1 rash Resolved Latex RASH Active Other Food Allergy fresh peaches - itch y mouth, throat and lips swell Active 1rash per mother as child. Did take a penicillin for treatment of H pylori per pt w/o problem. Immunizations Given and Recorded Vaccine Date Status Refusal Reason [id number] 12y+ bivalent booster vax 02/16/22 Given pneumococcal 20-valent conjugate vaccine 02/16/22 Given Influenza Virus Vaccine (oldterm) 1 01/27/22 Recor ded Influenza Virus Vaccine (oldterm) 01/26/21 Recorde d SARS-CoV-2 mRNA ([id number]) vax 11/11/21 Given SARS-CoV-2 (COVID-19) mRNA BNT-162b2 [...] Elissa Bertrand 13Result Comment: [11/27/2017] REceived at [facility], [place]; ordered by Dr Michael Oliveira 14Location [...] tablet, 5 Refills, Maintenance, 09/06/22 21:30:00 EDT, [facility], 188, cm, 07/18/22 14:01:00 EDT, Height, 122.63, kg, 11/22/21 16:37:00 EDT, Dry Weight Start Date: 09/06/22 Status: Ordered atorvastatin 40 mg oral tablet 1 tablet, By Mouth, Daily, # 90 tablet, 1 Refills, Maintenance, 04/10/22 12:34:00 EST, [facility], 188, cm, 02/16/22 13:07:00 EDT, Height, [...] 0 Refills, Maintenance, 05/15/22 16:24:00 EST, Tablet, [facility], Partial fill upon patient request if [...] 2 Refills, Maintenance, 04/27/22 23:43:00 EST, Cream, [facility], 1 application Topically 2 times a day,Instr:apply to penile rash, 188, cm, 04/27/22 13:44:00 EST, Francheska... Start Date: 04/27/22 Status: Ordered diclofenac 1% topical gel = 2 Gm, Topically, 4 times a day, PRN for pain, (polish) not to exceed: 16 gm/day/joint lower limb8 gm/day/joint of upper limb 32 gm/day may interchange for cream, # 100 Gm, 11 Refills, Maintenance, 04/15/22 13:02:00 EST, Gel, [facility]... Start Date: 04/15/22 Status: Ordered docusate [...] 0 Refills, Maintenance, 09/03/22 13:58:00 EDT, Tablet, [facility], 188, cm, 07/18/22 14:01:00 EDT, Height, 122.63, kg, 11/22/21... Start Date: 09/03/22 Status: Ordered fexofenadine 60 mg oral tablet 1 tablet = 60 mg, By Mouth, 2 times a day, PRN for allergy symptoms, # 20 tablet, 0 Refills, Maintenance, 09/03/22 13:58:00 EDT, Tablet, [facility], Partial fill upon patient request if [...] May cause drowsiness, do notdrive after taking Samoan, # 28 tablet, 0 Refills, Maintenance, 04/07/22 15:51:00 EST, [facility], 188, cm, 02/16/22 13:07:00 EDT, Heigh... Start [...] 11 Refills, Maintenance, 11/28/21 21:27:00 EDT, Solution, [facility], 188, cm, 11/22/21 16:37:00 EDT, Height, [...] mL, 5 Refills, Maintenance, 08/02/22 14:51:00 EDT, [facility], 188, cm, 07/18/22 14:01:00 EDT, Height, 122.63,kg, 11/22/21 16:37:00 EDT, Dry Weight Start Date: 08/02/22 Status: Ordered latanoprost 0.005% ophthalmic solution 0 Refills, Maintenance, 05/11/20 16:57:00 EST Start Date: 05/11/20 Status: Ordered lidocaine 5% topical ointment See Instructions, PRN Pain , Moderate, 1 APPLICATION TOPICALLY 3 TIMES A DAY, # 50 Gm, 5 Refills, Maintenance, 12/22/21 7:28:00 EDT, [facility], same Rx was sent 11/11 w/ [...] 0 Refills, Maintenance, 01/12/22 7:27:00 EDT, Tablet, [facility], 188, cm, 12/26/21 14:06:00 EDT, Height, 122.63, kg, 11/22/21 16:37:00 EDT, Dry Weight Start Date: 01/12/22 Status: Ordered losartan 100 mg oral tablet See Instructions, TAKE 1 TABLET BY MOUTH DAILY IN AM, # 30 tablet, 4 Refills, Maintenance, 10/06/2315:25:00 EDT, [facility], 188, cm, 07/18/22 14:01:00 EDT, Height, 122.63, kg, 11/22/21 16:37:00 EDT, Dry Weight Start Date: 10/05/22 Status: Ordered LUBRIC TEARS CALE 0.4-0.3% Milliliters INSTILL 1 DROP FOUR TIMES DAILY EACH EYE Start Date: 05/11/20 Status: Ordered magnesium oxide 400 mg oral tablet 1 tablet = 400 mg, By Mouth, Daily, # 30 tablet, 11 Refills, Maintenance, 04/27/22 15:29:00 EST, Tablet, [facility], Partial fill upon patient request if the prescription is for a schedule II opioid drug., 188, cm, 04/27/22 13:44:00 EST, Hei... Start Date: 04/27/22 Status: Ordered meloxicam 15 mg oral tablet 1 tablet = 15 mg, By Mouth, Daily, Take with food PRN back pain Samoan, # 14 tablet, 0 Refills, Maintenance, 11/25/21 13:26:00 EDT, [facility], Partial fill upon patient request if the prescription is for a schedule II opioid drug., 188,... Start Date: 11/25/21 Stop Date: 12/09/21 Status: Ordered metFORMIN 750 mg oral tablet, extended release 1 tablet = 750 mg, By Mouth, Daily, [replaces the metformin 500mg bid], # 30 tablet, 11 Refills, Maintenance, 11/22/21 17:53:00 EDT, ER Tablet, [facility], Partial fill upon patient requestif the prescription is for a schedule II opioid alessandra... Start Date: 11/22/21 Status: Ordered methadone 10 mg oral tablet See Instructions, By mouth. 2 tab in AM, 1.5 midday, 2 in evening;for pain. IDC10: G90.5 CRPS. 28 day supply. [facility]., # 154 tablet, 0 Refills, Maintenance, pain, 10/10/22 19:56:00 EDT,[facility], May partial fill., 10/10/22... Start Date: 10/10/22 Status: Ordered methadone 10 mg oral tablet See Instructions, By mouth. 2 tab in AM, 1.5 midday, 2 in evening;for pain. IDC10: G90.5 CRPS. 28 day supply. [facility]., # 154 tablet, 0 Refills, Maintenance, pain, 09/12/22 19:56:00 EDT,[facility], May partial fill., 09/12/22... Start Date: 09/12/22 Status: Ordered methadone 10 mg oral tablet See Instructions, By mouth. 2 tab in AM, 1.5 midday, 2 in evening;for pain. IDC10: G90.5 CRPS. 28 day supply. [facility]., # 154 tablet, 0 Refills, Maintenance, pain, 08/15/22 19:56:00 EDT,[facility], August partial fill., 08/15/22... Start Date: 08/15/22 Status: Ordered methadone 10 mg oral tablet See Instructions, By mouth. 2 tab in AM, 1.5 midday, 2 in evening;for pain. IDC10: G90.5 CRPS. 28 day supply. [facility]., # 154 tablet, 0 Refills, Maintenance, pain, 04/25/22 23:30:00 EST,[facility], August partial fill., 04/25/22... Start Date: [...] 11/13/22 17:24:00 EDT, 09/24/22 17:22:00 EDT, Tablet, [facility], 188, cm, 07/18/22 14:01:00 EDT, Height, 122.63, kg, 11/22/21 16:37:0... Start Date: 09/24/22 Stop Date: 11/13/22 Status: Ordered multivitamin Multiple Vitamins oral tablet 1 tablet, By Mouth, Daily, B complex multivitamin, # 30 tablet, 11 Refills, Maintenance, 11/22/21 17:58:00 EDT, [facility], Partial fill upon patient request if [...] 1 Refills, Soft Stop, 02/16/22 23:38:00 EDT, [facility], 188, cm, 02/16/22 13:07:00 EDT, Height,122.63, [...] Date: 02/16/22 Status: Ordered PEN NEEDLES MIS [id number] PEN NEEDLES MIS [id number], See Instructions, # 100 each, 5 Refills, Maintenance, USE DAILY TYPE 2 DIABETES MELLITUS ON INSULIN WITH PEN, 08/25/22 16:39:00 EDT, 188, cm, 07/18/22 14:01:00 EDT, Height, 122.63, kg, 11/22/21 16:37:00 EDT, Dry Weight Start Date: 08/25/22 Status: Ordered Pen [place], 31 G x 8 mm BD Ultra [...] mL, 11 Refills, Maintenance, 04/27/22 23:40:00 EST, [facility], 188, cm, 04/27/22 13:44:00 EST, Height, 122.63, kg, 11/22/21 16:37:00 EDT,... Start Date: 04/27/22 Status: Ordered Singulair 10 mg oral tablet 10 mg, 1, tablet, By Mouth, Daily, # 90 tablet, Refills 3, Tot. Refills 3, Maintenance, 03/30/20 21:31:00 EST, Route to Pharmacy Electronically, [facility], 185, cm, 02/25/20 10:29:00 EST, Height, 126.81, kg, 02/25/20 10:29:00 EST, Dry Weight Start Date: 03/30/20 Status: Ordered tamsulosin 0.4 mg oral capsule 0.8 mg, 2, capsule, By Mouth, Daily, dose increase, # 60 capsule, Refills 11, Tot. Refills 11, Maintenance, 07/27/22 11:57:00 EDT, Route to Pharmacy Electronically, [facility], 188, cm, 07/18/22 14:01:00 EDT, Height, [...] Intramuscular, Every 14 days, IM or subcutaneous. [facility]., # 2 mL, 5 Refills, Maintenance, 07/26/22 21:21:00 EDT, [facility], 188, cm, 07/18/22 14:01:00 EDT, Height, 122.63, kg, 11/22/21 16:37:00 EDT, Dry Weight Start Date: 07/26/22 Status: Ordered tiZANidine 4 mg oral tablet 4 mg, 1, tablet, By Mouth, 3 times a day, PRN, # 90 tablet, Refills 11, Tot. Refills 11, Maintenance, as needed for muscle spasm, 08/18/22 8:03:00 EDT, Route to Pharmacy Electronically, [facility], 188, cm, 07/18/22 14:01:00 EDT, Height, 122... Start Date: 08/18/22 Status: Ordered traZODone 100 mg oral tablet TAKE ONE TO TWO TABLETS BY MOUTH AT BEDTIME NEEDED SZayra Morales Start Date: 05/11/20 Status: Ordered Tylenol Extra Strength 500 mg oral tablet 2 tablet = 1,000 mg, By Mouth, 3 times a day, # 30 tablet, 11 Refills, Maintenance, 03/24/21 21:00:00 EST, [facility], 188, cm, 03/22/21 14:17:00 EST, Height, 125.2, kg, 06/20/20 14:28:00 EST, Dry Weight Start Date: 03/24/21 Status: Ordered Vitamin D3 1000 intl units oral tablet 1 tablet, By Mouth, Daily, for 30 days, # 30 tablet, 11 Refills, Physician Stop 10/30/22 17:07:00 EDT, 11/04/21 17:07:00 EDT, [facility], 188, cm, 09/15/21 12:49:00 EDT, Height, [...] ? chr regional pain syndrome 4s/p Modified Wynona procedure, repair of conjoined tendon of extensor [...] Team Personnel Name: Shoaib An RN Position: [facility] RN Supv Member Role: Primary Care Nurse Name: Vamshi Man MD Position: [facility] Physician - Primary Care Member Role: PCP Address: Address: [address] [place] [address]- Name: Miki Rodriguez MD Position: [facility] Renal MD Member Role: Lifetime Consulting Physician Address: Address: [address] [facility] [place] [address]- Care Team Related Persons Name: BRANDON MTZ Address: home [address] [place] [address] Name: BRANDON BARKER Address: home [address] [place] [address] Name: ROSALINDA BERTRAND Address: home [address] [place] [address]
--- OUTSIDE RECORDS SUMMARY | 2023-10-11 08:12 | XMS_ITS | Continuity of Care Document ---
Author Organization [facility] Address [address] [place] [address] [address] [place] [address]- Care Team Providers Care Sheltered Workshop Worker Name Role Phone Donovan DE LOS SANTOS, Vamshi Oshea Primary Care Physician Encounter [facility] Date(s): 03/29/23 - 04/28/23 [facility] [address] [place] [id number]- Allergies, Adverse Reactions, Alerts Substance Reaction Severity Status penicillin 1 rash Resolved Latex RASH Active Other Food Allergy fresh peaches - itch y mouth, throat and lips swell Active 1rash per mother as child. Did take a penicillin for treatment of H pylori per pt w/o problem. Immunizations Given and Recorded Vaccine Date Status Refusal Reason SARS-CoV-2(COVID-19)mRNA-LNP vac([id number]) 01/30/23 Given influenza virus vaccine, inactivated 01/05/23 [...] influenza virus vaccine, inactivated 03/19/06 Give n [id number] 12y+ bivalent booster vax 02/16/22 Given pneumococcal 20-valent conjugate vaccine 02/16/22 Given Influenza Virus Vaccine (oldterm) 9 01/27/22 Recor ded Influenza Virus Vaccine (oldterm) 01/26/21 Recorde d SARS-CoV-2 mRNA ([id number]) vax 11/11/21 Given SARS-CoV-2 (COVID-19) mRNA BNT-162b2 [...] Bertrand 13Result Comment: [11/27/2017] REceived at [facility] [place], [place]; ordered by Dr Michael Oliveira 14Location [...] 11 Refills, Maintenance, 02/08/23 10:21:00 EDT, Powder, [facility], replaces Flovent due to insurance coverage, 188, cm, 01/30/23 13:26:00 EDT, Height, 126, kg, 01/30/23 13:26:00 EDT,... Start Date: 02/08/23 Status: Ordered Aspirin Low Dose 81 mg oral delayed release tablet 1 tablet, By Mouth, Daily, # 90 tablet, 4 Refills, Maintenance, 03/01/23 17:49:00 EST, [facility], 188, cm, 01/30/23 13:26:00 EDT, Height, 126, kg, 01/30/23 13:26:00 EDT, Dry Weight Start Date: 03/01/23 Status: Ordered atorvastatin 40 mg oral tablet See Instructions, TAKE 1 TABLET BY MOUTH EVERY DAY, # 90 tablet, 1 Refills, Maintenance, 11/02/22 16:19:00 EDT, [facility], 188, cm, 10/19/22 13:16:00 EDT, Height, [...] 0 Refills, Maintenance, 05/15/22 16:24:00 EST, Tablet, [facility], Partial fill upon patient request if [...] 2 Refills, Maintenance, 04/27/22 23:43:00 EST, Cream, [facility], 1 application Topically 2 times a day,Instr:apply to penile rash, 188, cm, 04/27/22 13:44:00 EST, Heigh... Start Date: 04/27/22 Status: Ordered diazepam 10 mg oral tablet See Instructions, PRN, 1 tablet By Mouth 1 hr before MRI, # 1 tablet, Refills 2, Tot. Refills 2, Maintenance, as needed for anxiety, 01/30/23 15:02:00 EDT, Instructions Replace Required Details, Route to Pharmacy Electronically, [facility],... Start Date: 01/30/23 Status: Ordered diclofenac 1% topical gel = 2 Gm, Topically, 4 times a day, PRN for pain, (greek) not to exceed: 16 gm/day/joint lower limb8 gm/day/joint of upper limb 32 gm/day may interchange for cream, # 100 Gm, 11 Refills, Maintenance, 04/15/22 13:02:00 EST, Gel, [facility]... Start Date: 04/15/22 Status: Ordered docusate [...] 0 Refills, Maintenance, 09/03/22 13:58:00 EDT, Tablet, [facility], 188, cm, 07/18/22 14:01:00 EDT, Height, 122.63, kg, 11/22/21... Start Date: 09/03/22 Status: Ordered fexofenadine 60 mg oral tablet 1 tablet = 60 mg, By Mouth, 2 times a day, PRN for allergy symptoms, # 20 tablet, 0 Refills, Maintenance, 09/03/22 13:58:00 EDT, Tablet, [facility], Partial fill upon patient request if theprescription is for a schedule II opioid drug., 188... Start Date: 09/03/22 Status: Ordered fluticasone 50 mcg/inh nasal spray 0 Refills, Maintenance, 05/11/20 16:57:00 EST Start Date: 05/11/20 Status: Ordered Freestyle Tatyana [place] Freestyle Tatyana [place], See Instructions, # 1 each, Refills 0, [...] May cause drowsiness, do notdrive after taking Fijian, # 28 tablet, 0 Refills, Maintenance, 04/07/22 15:51:00 EST, [facility], 188, cm, 02/16/22 13:07:00 EDT, Heigh... Start [...] 11 Refills, Maintenance, 11/28/21 21:27:00 EDT, Solution, [facility], 188, cm, 11/22/21 16:37:00 EDT, Height, [...] Gm, 5 Refills, Maintenance, 12/22/21 7:28:00 EDT, [facility], same Rx was sent 11/11 w/ [...] 0 Refills, Maintenance, 01/12/22 7:27:00 EDT, Tablet, [facility], 188, cm, 12/26/21 14:06:00 EDT, Height, 122.63, kg, 11/22/21 16:37:00 EDT, Dry Weight Start Date: 01/12/22 Status: Ordered LUBRIC TEARS CALE 0.4-0.3% Milliliters INSTILL 1 DROP FOUR TIMES DAILY EACH EYE Start Date: 05/11/20 Status: Ordered magnesium oxide 400 mg oral tablet 1 tablet = 400 mg, By Mouth, Daily, # 30 tablet, 11 Refills, Maintenance, 04/27/22 15:29:00 EST, Tablet, [facility], Partial fill upon patient request if the prescription is for a schedule II opioid drug., 188, cm, 04/27/22 13:44:00 EST, Hei... Start Date: 04/27/22 Status: Ordered meloxicam 15 mg oral tablet 1 tablet = 15 mg, By Mouth, Daily, Take with food PRN back pain Fijian, # 14 tablet, 0 Refills, Maintenance, 11/25/21 13:26:00 EDT, [facility], Partial fill upon patient request if the prescription is for a schedule II opioid drug., 188,... Start Date: 11/25/21 Stop Date: 12/09/21 Status: Ordered metFORMIN 750 mg oral tablet, extended release 1 tablet = 750 mg, By Mouth, Daily, [replaces the metformin 500mg bid], # 30 tablet, 5 Refills, Maintenance, 11/01/22 8:40:00 EDT, ER Tablet, [facility], Partial fill upon patient request if the prescription is for a schedule II opioid drug.... Start Date: 11/01/22 Status: Ordered methadone 10 mg oral tablet See Instructions, By mouth. 2 tab in AM, 1.5 midday, 2 in evening;for pain. IDC10: G90.5 CRPS. 28 day supply. [facility]., # 154 tablet, 0 Refills, Maintenance, pain, 03/27/23 10:28:00 EST,[facility], May partial fill., 03/27/23... Start Date: 03/27/23 Status: Ordered methadone 10 mg oral tablet See Instructions, By mouth. 2 tab in AM, 1.5 midday, 2 in evening;for pain. IDC10: G90.5 CRPS. 28 day supply. [facility]., # 154 tablet, 0 Refills, Maintenance, pain, 02/27/23 10:28:00 EST,[facility], May partial fill., 02/27/23... Start Date: 02/27/23 Status: Ordered methadone 10 mg oral tablet See Instructions, By mouth. 2 tab in AM, 1.5 midday, 2 in evening;for pain. IDC10: G90.5 CRPS. 28 day supply. [facility]. Early fill before travel., # 154 tablet, 0 Refills, Maintenance, pain, 02/27/23 14:24:00 EST, [facility],... Start Date: 02/27/23 Status: Ordered methadone 10 mg oral tablet See Instructions, By mouth. 2 tab in AM, 1.5 midday, 2 in evening;for pain. IDC10: G90.5 CRPS. 28 day supply. [facility]., # 154 tablet, 0 Refills, Maintenance, pain, 04/24/23 22:44:00 EST,[facility], May partial fill., 188, cm,... Start Date: 04/24/23 Status: Ordered Metoclopramide = 10 mg, By Mouth, 3 times a day before meals and bedtime, 0 Refills, Maintenance, 08/20/18 13:55:26 EDT Start Date: 08/20/18 Status: Ordered Mounjaro 7.5 mg/0.5 mL subcutaneous solution = 7.5 mg, Subcutaneous Injection, Every week, rotate injection sites, # 4 each, 5 Refills, Maintenance, 04/27/23 0:18:00 EST, Solution, [facility], please d/c all prior Rx/refills for [...] 1 Refills, Soft Stop, 02/16/22 23:38:00 EDT, [facility], 188, cm, 02/16/22 13:07:00 EDT, Height,122.63, kg, 11/22/21 16:37:00 EDT, Dry Weight Start Date: 02/16/22 Status: Ordered olopatadine 0.1% ophthalmic solution 1 drops, Eyes, Both, 2 times a day, 0 Refills, Maintenance, 01/01/16 18:36:52 EDT Start Date: 9/17/16 Status: Ordered ondansetron 4 mg oral tablet TAKE 1 TABLET BY MOUTH EVERY 8 HOURS NEEDED FOR NAUSEA Idalia Sandoval Start Date: 08/20/18 Status: Ordered Ozempic 8 mg/3 mL (2 mg dose) subcutaneous solution See Instructions, 2 MG SUBCUTANEOUS INFUSION EVERY 7 DAYS,INSTR:IN THE ABDOMEN, THIGH, OR UPPER ARM., # 3 mL, 10 Refills, Maintenance, 04/01/23 22:39:00 EST, [facility], Assuming this is available given order was proposed so d/c liraglutide.... Start Date: 04/01/23 Status: Ordered pantoprazole 40 mg oral delayed release tablet 0 Refills, Maintenance, 02/16/22 23:33:00 EDT Start Date: 02/16/22 Status: Ordered PEN NEEDLES MIS [id number] PEN NEEDLES MIS [id number], See Instructions, # 100 each, 5 Refills, Maintenance, USE DAILY TYPE 2 DIABETES MELLITUS ON INSULIN WITH PEN, 08/25/22 16:39:00 EDT, 188, cm, 07/18/22 14:01:00 EDT, Height, 122.63, kg, 11/22/21 16:37:00 EDT, Dry Weight Start Date: 08/25/22 Status: Ordered Pen [place], 31 G x 8 mm BD Ultra [...] 02/18/23 19:20:00 EST, Route to Pharmacy Electronically, [facility], 188, cm, 01/30/23 13:26:00 EDT, Height, [...] tablet, 5 Refills, Maintenance, 12/19/22 20:41:00 EDT, [facility], 30, TAKE 1 TABLET BY MOUTH EVERY DAY, 188, cm, 10/19/22 13:16:00 EDT, Height, 122.63, kg, 11/22/21 16:37:00 EDT, Dry Weight Start Date: 12/19/22 Status: Ordered tamsulosin 0.4 mg oral capsule 0.8 mg, 2, capsule, By Mouth, Daily, dose increase, # 60 capsule, Refills 11, Tot. Refills 11, Maintenance, 07/27/22 11:57:00 EDT, Route to Pharmacy Electronically, [facility], 188, cm, 07/18/22 14:01:00 EDT, Height, 122.63, kg, 11/22/21 16:... Start Date: 07/27/22 Status: Ordered Test Strips See Instructions, # 100 each, Refills 5, Tot. Refills 5, Maintenance, Precision Ganga strips (for Freestyle Tatyana glucometer). Type 2 diabetes mellitus on insulin (E11, Z79.4). Test 2-4x/day if symptoms, or sensor concerns., 02/08/23 10:36:00 EDT, [place]... Start Date: 02/08/23 Status: Ordered Test Strips [...] Intramuscular, Every 14 days, IM or subcutaneous. [facility]., # 2 mL, 5 Refills, Maintenance, 10/27/22 17:23:00 EDT, [facility], 188, cm, 10/19/22 13:16:00 EDT, Height, 122.63, kg, 11/22/21 16:37:00 EDT, Dry Weight Start Date: 10/27/22 Status: Ordered tiZANidine 4 mg oral tablet 4 mg, 1, tablet, By Mouth, 3 times a day, PRN, # 90 tablet, Refills 11, Tot. Refills 11, Maintenance, as needed for muscle spasm, 08/18/22 8:03:00 EDT, Route to Pharmacy Electronically, [facility], 188, cm, 07/18/22 14:01:00 EDT, Height, 122... Start Date: 08/18/22 Status: Ordered Toujeo Max SoloStar 300 units/mL subcutaneous solution = 60 units, Subcutaneous Injection, Daily, # 12 mL, 11 Refills, Maintenance, 02/08/23 10:15:00 EDT,Solution, [facility], replaces Lantus due to insurance coverage, [...] tablet, 11 Refills, Maintenance, 03/24/21 21:00:00 EST, [facility], 188, cm, 03/22/21 14:17:00 EST, Height, 125.2, kg, 06/20/20 14:28:00 EST, Dry Weight Start Date: 03/24/21 Status: Ordered Victoza 18 mg/3 mL subcutaneous solution = 1.8 mg, Subcutaneous Injection, Daily, # 9 mL, 11 Refills, Maintenance, 02/08/23 10:25:00 EDT, Solution, [facility], replaces semaglutide, 188, cm, 01/30/23 13:26:00 EDT, Height, 126, kg,01/30/23 13:26:00 EDT, Dry Weight Start Date: 02/08/23 Status: Ordered Vitamin D3 1000 intl units oral tablet 1 tablet, By Mouth, Daily, # 90 tablet, 4 Refills, Maintenance, 04/01/23 22:28:00 EST, [facility], 188, cm, 01/30/23 13:26:00 EDT, Height, [...] ? chr regional pain syndrome 4s/p Modified Lev[place] procedure, repair of conjoined tendon of extensor [...] Team Personnel Name: Juve REYNA, Shoaib Position: [facility] RN Supv Member Role: Primary Care Nurse Name: Donovan DE LOS SANTOS, Vamshi Oshea Position: [facility] Physician - Primary Care Member Role: PCP Address: Address: [address] [place] [address]- Name: Luz Potter Position: [facility] Outreach Member Role: Lifetime Consulting Physician Name: Michael DE LOS SANTOS, Miki Position: [facility] Renal MD Member Role: Lifetime Consulting Physician Address: Address: [address] [facility] [place] [address]- Care Team Related Persons Name: BRANDON MTZ Address: home [address] [place] [address] Name: BRANDON BARKER Address: home [address] [place] [address] Name: ROSALINDA BERTRAND Address: home [address] [place] [address]
--- OUTSIDE RECORDS SUMMARY | 2023-10-11 08:12 | XMS_ITS | Continuity of Care Document ---
Author Organization [facility] Address [address] [place] [address]- Care Team Providers Care Cork Sorter Name Role Phone Vamshi Man MD Primary Care Physician [facility] Date[facility]): 12/30/19 - 01/29/20 [facility] [address] [address]- [facility] Allergies, Adverse Reactions, Alerts Substance [...] [11/27/2017] REceived at [facility] at [place], [place]; ordered by Dr Michael Oliveira 12Location [...] 11/04/19 15:57:00 EDT, Route to Pharmacy Electronically, [facility], 185, cm, 06/24/19 13:00:00 EDT, Height, [...] 2 Refills, Maintenance, 01/07/20 14:49:00 EDT, Cream, [facility], 1 application Topically 2 times a day,Instr:apply to penile rash, 185, cm, 01/07/20 13:55:00 EDT, Francheska... Start Date: 01/07/20 Status: Ordered Cozaar 100 mg oral tablet 1 tablet = 100 mg, By Mouth, Daily in AM, # 30 tablet, 11 Refills, Maintenance, 09/16/19 15:00:00 EDT, Tablet, [facility], 185, cm, 06/24/19 13:00:00 EDT, Height, 127.72, kg, 05/06/19 13:41:00 EST, Dry Weight Start Date: 09/16/19 Status: Ordered diclofenac 1% topical gel = 2 Gm, Topically, 4 times a day, PRN for pain, (yemeni) not to exceed: 16 gm/day/joint lower limb8 gm/day/joint of upper limb 32 gm/day, # 100 Gm, 1 Refills, Maintenance, 10/27/19 10:15:00 EDT, Gel, [facility], 185, cm, 06/24/19 13:00:... Start Date: [...] 1 Refills, Maintenance, 12/02/19 10:07:00 EDT, Solution, [facility], duplicate rx. remaining refills sent. original [...] tablet, 11 Refills, Maintenance, 01/07/20 14:40:00 EDT, [facility], 185, cm, 01/07/20 13:55:00 EDT, Height, 127.72, kg, 05/06/19 13:41:00 EST, Dry Weight Start Date: 01/07/20 Status: Ordered Lantus Solostar Pen 100 units/mL subcutaneous solution = 90 units, Subcutaneous Infusion, Daily at bedtime, # 15 mL, 5 Refills, Maintenance, 10/09/19 15:22:00 EDT, [facility], duplicate rx. original rx sent 03/18/19. remaining refills sent, 185,cm, 06/24/19 13:00:00 EDT, Height, 127.72, kg, 04/17... Start Date: 10/09/19 Status: Ordered latanoprost 0.005% ophthalmic solution 1 drops, Eyes, Both, Daily at bedtime, cover gap- [employer] Dr Broussard, # 2.5 mL, 1 Refills, Maintenance, 02/25/14 10:47:09, Ophth Solution, 1 drops Eyes, Both Daily at bedtime,Instr:cover gap-[employer] Dr Broussard Start Date: 02/25/14 Status: Ordered lidocaine 4% topical cream 1 application, Topically, 3 times a day, may interchange 3-5% cream or ointment or 2% gel per insurance coverage., # 60 Gm, 5 Refills, Maintenance, 10/28/19 20:11:00 EDT, [facility], 1 application Topically 3 times a day,Instr:may interchang... Start Date: 10/28/19 Status: Ordered Lipitor 40 mg oral tablet 1 tablet = 40 mg, By Mouth, Daily, # 30 tablet, 5 Refills, Maintenance, 11/04/19 15:57:00 EDT, [facility], 185, cm, 06/24/19 13:00:00 EDT, Height, 127.72, kg, 05/06/19 13:41:00 EST, Dry Weight Start Date: 11/04/19 Status: Ordered metFORMIN 500 mg oral tablet 1 tablet = 500 mg, By Mouth, 2 times a day, with meals. Replaces metformin ER, # 60 tablet, 11 Refills, Maintenance, 06/24/19 15:02:00 EDT, Tablet, [facility], 185, cm, 06/24/19 13:00:00 EDT, Height, [...] # 154 tablet, 0 Refills, Maintenance, pain, 02/03/20 21:32:00 EDT,[facility], May partial fill., 02/03/20... Start Date: 02/03/20 Status: Ordered methadone 10 mg oral tablet See Instructions, By mouth. 2 tab in AM, 1.5 midday, 2 in evening;for pain. IDC10: G90.5 CRPS. 28 day supply. [facility]., # 154 tablet, 0 Refills, Maintenance, pain, 03/02/20 21:37:00 EST,[facility], May partial fill., 03/02/20... Start Date: 03/02/20 [...] Start Date: 05/15/18 Status: Ordered nystatin-triamcinolone topical 199346 u/gm-0.1% ointment 1 applicator, Topically, 3 times a day, to foreskin area FOR 3 DAYS then switch to other antifungal, # 15 Gm, 1 Refills, Maintenance, 01/07/20 14:48:00 EDT, [facility], 1 applicator Topically 3 times a [...] EDT Start Date: 08/20/18 Status: Ordered Pen [place], 31 G x 8 mm BD Ultra [...] 11/29/18 11:27:43 EDT, Route to Pharmacy Electronically, [id number], [facility] Start Date: 11/29/18 Status: Ordered Testosterone Cypionate = 0.75 mg, Intramuscular, Every 14 days, Adm. today to Lot [id number] exp: 02/2020, 0 Refills, Maintenance, 11/14/18 14:06:08 EDT Start Date: 11/14/18 Status: Ordered testosterone enanthate 200 mg/mL intramuscular solution 0.75 mL, Intramuscular, Every 14 days, [facility], # 5 mL, 5 Refills, Maintenance, 01/06/20 11:17:00 EDT, [facility], 185, cm, 06/24/19 13:00:00 EDT, Height, 127.72, kg, 05/06/19 13:41:00 EST, Dry Weight Start Date: 01/06/20 Status: Ordered testosterone enanthate 200 mg/mL intramuscular solution 0.75 mL, Intramuscular, Every 14 days, [facility], # 5 mL, 5 Refills, Maintenance, 01/11/20 21:30:00 EDT, [facility], 185, cm, 01/07/20 13:55:00 EDT, Height, 127.72, kg, 05/06/19 13:41:00 EST, Dry Weight Start Date: 01/11/20 Status: Ordered tiZANidine 4 mg oral tablet 4 mg, 1, tablet, By Mouth, 3 times a day, PRN, # 90 tablet, Refills 11, Tot. Refills 11, Maintenance, as needed for muscle spasm, 02/04/19 21:34:51 EDT, Route to Pharmacy Electronically, NCPDP_[id number], [facility] Start Date: 02/04/19 Status: Ordered Problem [...] ? chr regional pain syndrome 4s/p Modified [place] procedure, repair of conjoined tendon of extensor [...]
--- OUTSIDE RECORDS SUMMARY | 2023-10-11 08:12 | XMS_ITS | Continuity of Care Document ---
Author Organization [facility] Address [address] [place] [address]- Care Team Providers Care Distribution A Class Lineman Name Role Phone Vamshi Man MD Primary Care Physician [phone] [facility]counter [facility] Date(s): 03/01/20 - 03/31/20 [facility]/[address] [address]- Allergies, Adverse Reactions, Alerts Substance Reaction Severity [...] 11Result Comment: [11/27/2017] REceived at [facility] [place], [place]; ordered by Dr Michael Oliveira 12Location [...] 03/30/20 21:31:00 EST, Route to Pharmacy Electronically, [facility], [employer] [place] [employer] [place] (PRIMP)e rx. original sent 11/04/19. remaining refills sent., 185, cm, 02/25/20 10:29:00 EST, Hei... Start Date: 03/30/20 Status: Ordered AutoCPAP 9-18 with heated humidification AutoCPAP 9-18 with heated humidification, See Instructions, # 1 each, Refills 0, Tot. Refills 0, Maintenance, use overnight and naps from [facility], 11/04/18 12:28:22 EDT, Compound Start Date: 11/04/18 [...] capsule, 3 Refills, Maintenance, 03/30/20 21:36:00 EST, [facility], 185, cm, 02/25/20 10:29:00 EST, Height, 126.81, kg, 02/25/20 10:29:00 EST, Dry Weight Start Date: 03/30/20 Status: Ordered clotrimazole 1% topical cream 1 application, Topically, 2 times a day, apply to penile rash, # 30 Gm, 2 Refills, Maintenance, 01/07/20 14:49:00 EDT, Cream, [facility], 1 application Topically 2 times a day,Instr:apply to penile rash, 185, cm, 01/07/20 13:55:00 EDT, Francheska... Start Date: 01/07/20 Status: Ordered Cozaar 100 mg oral tablet 1 tablet = 100 mg, By Mouth, Daily in AM, # 30 tablet, 5 Refills, Maintenance, 03/15/20 17:08:00 EST, Tablet, [facility], duplicate rx. original sent 09/16/19. remaining refills sent., 185, cm, 02/25/20 10:29:00 EST, Height, 126.81, kg, ... Start Date: 03/15/20 Status: Ordered diclofenac 1% topical gel = 2 Gm, Topically, 4 times a day, PRN for pain, (guyanese) not to exceed: 16 gm/day/joint lower limb8 gm/day/joint of upper limb 32 gm/day, # 100 Gm, 1 Refills, Maintenance, 10/27/19 10:15:00 EDT, Gel, [facility], 185, cm, 06/24/19 13:00:... Start Date: [...] 11 Refills, Maintenance, 02/15/20 21:05:00 EST, Solution, [facility], 185, cm, 01/07/20 13:55:00 EDT, Height, [...] tablet, 11 Refills, Maintenance, 01/07/20 14:40:00 EDT, [facility], 185, cm, 01/07/20 13:55:00 EDT, Height, 127.72, kg, 05/06/19 13:41:00 EST, Dry Weight Start Date: 01/07/20 Status: Ordered Lantus Solostar Pen 100 units/mL subcutaneous solution = 90 units, Subcutaneous Infusion, Daily at bedtime, # 15 mL, 2 Refills, Maintenance, 03/08/20 15:23:00 EST, [facility], 185, cm, 02/25/20 10:29:00 EST, Height, 126.81, kg, 02/25/20 10:29:00 EST, Dry Weight Start Date: 03/08/20 Status: Ordered latanoprost 0.005% ophthalmic solution 1 drops, Eyes, Both, Daily at bedtime, cover gap- [employer] Operator Dr Broussard, # 2.5 mL, 1 Refills, Maintenance, 02/25/14 10:47:09, Ophth Solution, 1 drops Eyes, Both Daily at bedtime,Instr:cover gap-[employer] Operator Dr Broussard Start Date: 02/25/14 Status: Ordered lidocaine 4% topical cream 1 application, Topically, 3 times a day, may interchange 3-5% cream or ointment or 2% gel per insurance coverage., # 60 Gm, 5 Refills, Maintenance, 10/28/19 20:11:00 EDT, [facility], 1 application Topically 3 times a day,Instr:may interchang... Start Date: 10/28/19 Status: Ordered Lipitor 40 mg oral tablet 1 tablet = 40 mg, By Mouth, Daily, # 90 tablet, 3 Refills, Maintenance, 03/30/20 21:30:00 EST, [facility], duplicate rx. original sent 11/04/19. remaining refill sent., 185, cm, 02/25/20 10:29:00 EST, Height, 126.81, kg, 02/25/20 10:29:00 EST... Start Date: 03/30/20 Status: Ordered metFORMIN 500 mg oral tablet 1 tablet = 500 mg, By Mouth, 2 times a day, with meals. Replaces metformin ER, # 60 tablet, 11 Refills, Maintenance, 06/24/19 15:02:00 EDT, Tablet, [facility], 185, cm, 06/24/19 13:00:00 EDT, Height, [...] pain. IDC10: G90.5 CRPS. 28 day supply. [facility]., # 154 tablet, 0 Refills, Maintenance, pain, 03/30/20 23:51:00 EST,[facility], May partial fill., 03/30/20... Start Date: 03/30/20 Status: Ordered methadone 10 mg oral tablet See Instructions, By mouth. 2 tab in AM, 1.5 midday, 2 in evening;for pain. IDC10: G90.5 CRPS. 28 day supply. [facility]., # 154 tablet, 0 Refills, Maintenance, pain, 03/02/20 21:37:00 EST,[facility], May partial fill., 03/02/20... Start Date: [...] Start Date: 05/15/18 Status: Ordered nystatin-triamcinolone topical 165492 u/gm-0.1% ointment 1 applicator, Topically, 3 times a day, to foreskin area FOR 3 DAYS then switch to other antifungal, # 15 Gm, 1 Refills, Maintenance, 01/07/20 14:48:00 EDT, [facility], 1 applicator Topically 3 times a [...] EDT Start Date: 08/20/18 Status: Ordered Pen [place], 31 G x 8 mm BD Ultra [...] 03/30/20 21:31:00 EST, Route to Pharmacy Electronically, [facility], 185, cm, 02/25/20 10:29:00 EST, Height, 126.81, kg, 02/25/20 10:29:00 EST, Dry Weight Start Date: 03/30/20 Status: Ordered Testosterone Cypionate = 0.75 mg, Intramuscular, Every 14 days, Adm. today to Lot [id number] exp: 02/2020, 0 Refills, Maintenance, 11/14/18 14:06:08 EDT Start Date: 11/14/18 Status: Ordered testosterone enanthate 200 mg/mL intramuscular solution 0.75 mL, Intramuscular, Every 14 days, [facility], # 5 mL, 5 Refills, Maintenance, 01/06/20 11:17:00 EDT, [facility], 185, cm, 06/24/19 13:00:00 EDT, Height, 127.72, kg, 05/06/19 13:41:00 EST, Dry Weight Start Date: 01/06/20 Status: Ordered testosterone enanthate 200 mg/mL intramuscular solution 0.75 mL, Intramuscular, Every 14 days, [facility], # 5 mL, 5 Refills, Maintenance, 01/11/20 21:30:00 EDT, [facility], 185, cm, 01/07/20 13:55:00 EDT, Height, 127.72, kg, 05/06/19 13:41:00 EST, Dry Weight Start Date: 01/11/20 Status: Ordered tiZANidine 4 mg oral tablet 4 mg, 1, tablet, By Mouth, 3 times a day, PRN, # 90 tablet, Refills 11, Tot. Refills 11, Maintenance, as needed for muscle spasm, 02/04/19 21:34:51 EDT, Route to Pharmacy Electronically, NCPDP_[id number], [facility] Start Date: 02/04/19 Status: Ordered Problem [...] ? chr regional pain syndrome 4s/p Modified [place] procedure, repair of conjoined tendon of extensor [...]
--- OUTSIDE RECORDS SUMMARY | 2023-10-11 08:12 | XMS_ITS | Continuity of Care Document ---
Author Organization [facility] Address [address] [place] [address]- Care Team Providers Care Archival Records Clerk Name Role Phone Vamshi Man MD Primary Care Physician [facility] Date(s): 06/23/20 - 07/23/20 [facility]/[address] [address]- Allergies, Adverse Reactions, Alerts Substance Reaction Severity [...] Elissa Bertrand 12Result Comment: [11/27/2017] REceived at [facility] [place], [place]; ordered by Dr Michael Oliveira 13Location [...] 03/30/20 21:31:00 EST, Route to Pharmacy Electronically, [facility], Pumodoilcate rx. original sent 11/04/19. remaining refills sent., 185, cm, 02/25/20 10:29:00 EST, Hei... Start Date: 03/30/20 Status: Ordered AutoCPAP 9-18 with heated humidification AutoCPAP 9-18 with heated humidification, See Instructions, # 1 each, Refills 0, Tot. Refills 0, Maintenance, use overnight and naps from [facility], 11/04/18 12:28:22 EDT, Compound Start [...] capsule, 3 Refills, Maintenance, 03/30/20 21:36:00 EST, [facility], 185, cm, 02/25/20 10:29:00 EST, Height, 126.81, kg, 02/25/20 10:29:00 EST, Dry Weight Start Date: 03/30/20 Status: Ordered clotrimazole 1% topical cream 1 application, Topically, 2 times a day, apply to penile rash, # 30 Gm, 2 Refills, Maintenance, 01/07/20 14:49:00 EDT, Cream, [facility], 1 application Topically 2 times a day,Instr:apply to penile rash, 185, cm, 01/07/20 13:55:00 EDT, Francheska... Start Date: 01/07/20 Status: Ordered Cozaar 100 mg oral tablet 1 tablet = 100 mg, By Mouth, Daily in AM, # 30 tablet, 5 Refills, Maintenance, 03/15/20 17:08:00 EST, Tablet, [facility], duplicate rx. original sent 09/16/19. remaining [...] 06/25/20 15:39:00 EST, Route to Pharmacy Electronically, [facility], Partial f... Start Date: 06/25/20 Status: Ordered diclofenac 1% topical gel = 2 Gm, Topically, 4 times a day, PRN for pain, (monegasque) not to exceed: 16 gm/day/joint lower limb8 gm/day/joint of upper limb 32 gm/day may interchange for cream, # 100 Gm, 5 Refills, Maintenance,07/08/20 15:35:00 EDT, Gel, [facility] Start Date: 07/08/20 Status: Ordered docusate [...] 11 Refills, Maintenance, 02/15/20 21:05:00 EST, Solution, [facility], 185, cm, 01/07/20 13:55:00 EDT, Height, 127.72, kg, 05/06/19 13:41:00 EST, Dry Weight Start Date: 02/15/20 Status: Ordered duloxetine 60 mg oral enteric coated capsule TAKE 1 CAPSULE BY MOUTH ONCE A DAY WITH MEALS Start Date: 05/11/20 Status: Ordered EpiPen 2-Deejay 0.3 mg injectable kit Maria G Collado/Mleissa, 0 Refills, Maintenance, 01/01/16 18:30:41 Start Date: [...] mL, 3 Refills, Maintenance, 07/08/20 15:42:00 EDT, [facility], Duplicate rx-Original rx sent 06/22/20. Resent., 188, cm, 07/08/20 13:42:00 EDT, Height, 125.2, kg, 06/20/20 14:28:00 EST,... Start Date: 07/08/20 Status: Ordered latanoprost 0.005% ophthalmic solution 0 Refills, Maintenance, 05/11/20 16:57:00 EST Start Date: 05/11/20 Status: Ordered Lipitor 40 mg oral tablet 1 tablet = 40 mg, By Mouth, Daily, # 90 tablet, 3 Refills, Maintenance, 03/30/20 21:30:00 EST, [facility], duplicate rx. original sent 11/04/19. remaining [...] 3 Refills, Maintenance, 07/08/20 15:40:00 EDT, Tablet, [facility], Duplicate rx-Original rx sent06/22/20. Resent., 188, cm, 07/08/20 13:42:00 EDT, He... Start Date: 07/08/20 Status: Ordered methadone 10 mg oral tablet See Instructions, By mouth. 2 tab in AM, 1.5 midday, 2 in evening;for pain. IDC10: G90.5 CRPS. 28 day supply. [facility]., # 154 tablet, 0 Refills, Maintenance, pain, 07/20/20 15:43:00 EDT,[facility], May partial fill., 188, cm,... Start Date: 07/20/20 Status: Ordered methadone 10 mg oral tablet See Instructions, By mouth. 2 tab in AM, 1.5 midday, 2 in evening;for pain. IDC10: G90.5 CRPS. 28 day supply. [facility]., # 154 tablet, 0 Refills, Maintenance, pain, 08/17/20 15:47:00 EDT,[facility], May partial fill., 08/17/20... Start Date: [...] Start Date: 05/15/18 Status: Ordered nystatin-triamcinolone topical 754438 u/gm-0.1% ointment 1 applicator, Topically, 3 times a day, to foreskin area FOR 3 DAYS then switch to other antifungal, # 15 Gm, 1 Refills, Maintenance, 07/08/20 15:34:00 EDT, [facility], 1 applicator Topically 3 times a [...] EDT Start Date: 08/20/18 Status: Ordered Pen [place], 31 G x 8 mm BD Ultra [...] 03/30/20 21:31:00 EST, Route to Pharmacy Electronically, [facility], 185, cm, 02/25/20 10:29:00 EST, Height, [...] solution 0.75 mL, Intramuscular, Every 14 days, [facility], # 5 mL, 5 Refills, Maintenance, 01/11/20 21:30:00 EDT, [facility], 185, cm, 01/07/20 13:55:00 EDT, Height, 127.72, kg, 05/06/19 13:41:00 EST, Dry Weight Start Date: 01/11/20 Status: Ordered tiZANidine 4 mg oral tablet 4 mg, 1, tablet, By Mouth, 3 times a day, PRN, # 90 tablet, Refills 11, Tot. Refills 11, Maintenance, as needed for muscle spasm, 07/08/20 15:40:00 EDT, Route to Pharmacy Electronically, [facility], 188, cm, 07/08/20 13:42:00 EDT, Height, [...] ? chr regional pain syndrome 4s/p Modified [place] procedure, repair of conjoined tendon of extensor [...]
--- OUTSIDE RECORDS SUMMARY | 2023-10-11 08:12 | XMS_ITS | Continuity of Care Document ---
Author Organization [facility] Address [address] [place] [address]- Care Team Providers Care Insurance Salesman Name Role Phone Vamshi Man MD Primary Care Physician [facility] Date[facility]): 03/15/23 - 04/14/23 [facility]/[place] [address]- [place] Allergies, Adverse Reactions, Alerts Substance Reaction Severity Status penicillin 1 rash Resolved Latex RASH Active Other Food Allergy fresh peaches - itch y mouth, throat and lips swell Active 1rash per mother as child. Did take a penicillin for treatment of H pylori per pt w/o problem. Immunizations Given and Recorded Vaccine Date Status Refusal Reason SARS-CoV-2(COVID-19)mRNA-LNP vac([id number]) 01/30/23 Given influenza virus vaccine, inactivated 01/05/23 [...] influenza virus vaccine, inactivated 03/19/06 Give n [id number] 12y+ bivalent booster vax 02/16/22 Given pneumococcal 20-valent conjugate vaccine 02/16/22 Given Influenza Virus Vaccine (oldterm) 9 01/27/22 Recor ded Influenza Virus Vaccine (oldterm) 01/26/21 Recorde d SARS-CoV-2 mRNA ([id number]) vax 11/11/21 Given SARS-CoV-2 (COVID-19) mRNA BNT-162b2 [...] at [facility] [place], [place]; ordered by Dr Michael Bogdasarian 14Location [...] 11 Refills, Maintenance, 02/08/23 10:21:00 EDT, Powder, [facility], replaces Flovent due to insurance coverage, 188, cm, 01/30/23 13:26:00 EDT, Height, 126, kg, 01/30/23 13:26:00 EDT,... Start Date: 02/08/23 Status: Ordered Aspirin Low Dose 81 mg oral delayed release tablet 1 tablet, By Mouth, Daily, # 90 tablet, 4 Refills, Maintenance, 03/01/23 17:49:00 EST, [facility], 188, cm, 01/30/23 13:26:00 EDT, Height, 126, kg, 01/30/23 13:26:00 EDT, Dry Weight Start Date: 03/01/23 Status: Ordered atorvastatin 40 mg oral tablet See Instructions, TAKE 1 TABLET BY MOUTH EVERY DAY, # 90 tablet, 1 Refills, Maintenance, 11/02/22 16:19:00 EDT, [facility], 188, cm, 10/19/22 13:16:00 EDT, Height, 122.63, kg, 11/22/21 16:37:00 EDT, Dry Weight Start Date: 11/02/22 Status: Ordered AutoCPAP 9-18 with heated humidification AutoCPAP 9-18 with heated humidification, See Instructions, # 1 each, Refills 0, Tot. Refills 0, Maintenance, use overnight and naps from [facility], 11/04/18 12:28:22 EDT, Compound Start Date: 11/04/18 Status: Ordered baclofen 5 mg oral tablet 1 tablet = 5 mg, By Mouth, 3 times a day, take it with meals x 3/day, # 12 tablet, 0 Refills, Maintenance, 05/15/22 16:24:00 EST, Tablet, [facility], Partial fill upon patient request if [...] 2 Refills, Maintenance, 04/27/22 23:43:00 EST, Cream, [facility], 1 application Topically 2 times a day,Instr:apply to penile rash, 188, cm, 04/27/22 13:44:00 EST, Hechidi... Start Date: 04/27/22 Status: Ordered diazepam 10 mg oral tablet See Instructions, PRN, 1 tablet By Mouth 1 hr before MRI, # 1 tablet, Refills 2, Tot. Refills 2, Maintenance, as needed for anxiety, 01/30/23 15:02:00 EDT, Instructions Replace Required Details, Route to Pharmacy Electronically, [facility],... Start Date: 01/30/23 Status: Ordered diclofenac 1% topical gel = 2 Gm, Topically, 4 times a day, PRN for pain, (kazakh) not to exceed: 16 gm/day/joint lower limb8 gm/day/joint of upper limb 32 gm/day may interchange for cream, # 100 Gm, 11 Refills, Maintenance, 04/15/22 13:02:00 EST, Gel, [facility]... Start Date: 04/15/22 Status: Ordered docusate [...] 0 Refills, Maintenance, 09/03/22 13:58:00 EDT, Tablet, [facility], 188, cm, 07/18/22 14:01:00 EDT, Height, 122.63, kg, 11/22/21... Start Date: 09/03/22 Status: Ordered fexofenadine 60 mg oral tablet 1 tablet = 60 mg, By Mouth, 2 times a day, PRN for allergy symptoms, # 20 tablet, 0 Refills, Maintenance, 09/03/22 13:58:00 EDT, Tablet, [facility], Partial fill upon patient request if theprescription is for a schedule II opioid drug., 188... Start Date: 09/03/22 Status: Ordered fluticasone 50 mcg/inh nasal spray 0 Refills, Maintenance, 05/11/20 16:57:00 EST Start Date: 05/11/20 Status: Ordered Freestyle Tatyana [place] Freestyle Tatyana [place], See Instructions, # 1 each, Refills 0, [...] May cause drowsiness, do notdrive after taking Mozambican, # 28 tablet, 0 Refills, Maintenance, 04/07/22 [...] 11 Refills, Maintenance, 11/28/21 21:27:00 EDT, Solution, [facility], 188, cm, 11/22/21 16:37:00 EDT, Height, [...] Gm, 5 Refills, Maintenance, 12/22/21 7:28:00 EDT, [facility], same Rx was sent 11/11 w/ [...] 0 Refills, Maintenance, 01/12/22 7:27:00 EDT, Tablet, [facility], 188, cm, 12/26/21 14:06:00 EDT, Height, 122.63, kg, 11/22/21 16:37:00 EDT, Dry Weight Start Date: 01/12/22 Status: Ordered losartan 100 mg oral tablet See Instructions, TAKE 1 TABLET BY MOUTH DAILY IN AM, # 30 tablet, 5 Refills, Maintenance, 02/28/2314:13:00 EST, [facility], 188, cm, 01/30/23 13:26:00 EDT, Height, 126, kg, 01/30/23 13:26:00 EDT, Dry Weight Start Date: 02/28/23 Status: Ordered LUBRIC TEARS CALE 0.4-0.3% Milliliters INSTILL 1 DROP FOUR TIMES DAILY EACH EYE Start Date: 05/11/20 Status: Ordered magnesium oxide 400 mg oral tablet 1 tablet = 400 mg, By Mouth, Daily, # 30 tablet, 11 Refills, Maintenance, 04/27/22 15:29:00 EST, Tablet, [facility], Partial fill upon patient request if the prescription is for a schedule II opioid drug., 188, cm, 04/27/22 13:44:00 EST, Hei... Start Date: 04/27/22 Status: Ordered meloxicam 15 mg oral tablet 1 tablet = 15 mg, By Mouth, Daily, Take with food PRN back pain Mozambican, # 14 tablet, 0 Refills, Maintenance, 11/25/21 13:26:00 EDT, [facility], Partial fill upon patient request if the prescription is for a schedule II opioid drug., 188,... Start Date: 11/25/21 Stop Date: 12/09/21 Status: Ordered metFORMIN 750 mg oral tablet, extended release 1 tablet = 750 mg, By Mouth, Daily, [replaces the metformin 500mg bid], # 30 tablet, 5 Refills, Maintenance, 11/01/22 8:40:00 EDT, ER Tablet, [facility], Partial fill upon patient request if the prescription is for a schedule II opioid drug.... Start Date: 11/01/22 Status: Ordered methadone 10 mg oral tablet See Instructions, By mouth. 2 tab in AM, 1.5 midday, 2 in evening;for pain. IDC10: G90.5 CRPS. 28 day supply. [facility]., # 154 tablet, 0 Refills, Maintenance, pain, 03/27/23 10:28:00 EST,[facility], May partial fill., 03/27/23... Start Date: 03/27/23 Status: Ordered methadone 10 mg oral tablet See Instructions, By mouth. 2 tab in AM, 1.5 midday, 2 in evening;for pain. IDC10: G90.5 CRPS. 28 day supply. [facility]., # 154 tablet, 0 Refills, Maintenance, pain, 02/27/23 10:28:00 EST,[facility], May partial fill., 02/27/23... Start Date: 02/27/23 Status: Ordered methadone 10 mg oral tablet See Instructions, By mouth. 2 tab in AM, 1.5 midday, 2 in evening;for pain. IDC10: G90.5 CRPS. 28 day supply. [facility]. Early fill before travel., # 154 tablet, 0 Refills, Maintenance, pain, 02/27/23 14:24:00 EST, [facility],... Start Date: 02/27/23 Status: Ordered methadone 10 mg oral tablet See Instructions, By mouth. 2 tab in AM, 1.5 midday, 2 in evening;for pain. IDC10: G90.5 CRPS. 28 day supply. [facility]., # 154 tablet, 0 Refills, Maintenance, pain, 04/24/23 22:44:00 EST,[facility], May partial fill., 188, cm,... [...] 1 Refills, Soft Stop, 02/16/22 23:38:00 EDT, [facility], 188, cm, 02/16/22 13:07:00 EDT, Height,122.63, [...] mL, 10 Refills, Maintenance, 04/01/23 22:39:00 EST, [facility], Assuming this is available given order was proposed so d/c liraglutide.... Start Date: 04/01/23 Status: Ordered pantoprazole 40 mg oral delayed release tablet 0 Refills, Maintenance, 02/16/22 23:33:00 EDT Start Date: 02/16/22 Status: Ordered PEN NEEDLES MIS [id number] PEN NEEDLES MIS [id number], See Instructions, # 100 each, 5 Refills, Maintenance, USE DAILY TYPE 2 DIABETES MELLITUS ON INSULIN WITH PEN, 08/25/22 16:39:00 EDT, 188, cm, 07/18/22 14:01:00 EDT, Height, 122.63, kg, 11/22/21 16:37:00 EDT, Dry Weight Start Date: 08/25/22 Status: Ordered Pen [place], 31 G x 8 mm BD Ultra [...] 02/18/23 19:20:00 EST, Route to Pharmacy Electronically, [facility], 188, cm, 01/30/23 13:26:00 EDT, Height, 126, kg, 01/30/23 13:26:00 EDT, Dry Weight Start Date: 02/18/23 Status: Ordered Tab-A-Kelsie oral tablet 1 tablet, By Mouth, Daily, # 30 tablet, 5 Refills, Maintenance, 12/19/22 20:41:00 EDT, [facility], 30, TAKE 1 TABLET BY MOUTH EVERY DAY, 188, cm, 10/19/22 13:16:00 EDT, Height, 122.63, kg, 11/22/21 16:37:00 EDT, Dry Weight Start Date: 12/19/22 Status: Ordered tamsulosin 0.4 mg oral capsule 0.8 mg, 2, capsule, By Mouth, Daily, dose increase, # 60 capsule, Refills 11, Tot. Refills 11, Maintenance, 07/27/22 11:57:00 EDT, Route to Pharmacy Electronically, [facility], 188, cm, 07/18/22 14:01:00 EDT, Height, 122.63, kg, 11/22/21 16:... Start Date: 07/27/22 Status: Ordered Test Strips See Instructions, # 100 each, Refills 5, Tot. Refills 5, Maintenance, Precision Ganga strips (for Freestyle Tatyana glucometer). Type 2 diabetes mellitus on insulin (E11, Z79.4). Test 2-4x/day if symptoms, or sensor concerns., 02/08/23 10:36:00 EDT, [place]... Start Date: 02/08/23 Status: Ordered Test Strips [...] Intramuscular, Every 14 days, IM or subcutaneous. [facility]., # 2 mL, 5 Refills, Maintenance, 10/27/22 17:23:00 EDT, [facility], 188, cm, 10/19/22 13:16:00 EDT, Height, 122.63, kg, 11/22/21 16:37:00 EDT, Dry Weight Start Date: 10/27/22 Status: Ordered tiZANidine 4 mg oral tablet 4 mg, 1, tablet, By Mouth, 3 times a day, PRN, # 90 tablet, Refills 11, Tot. Refills 11, Maintenance, as needed for muscle spasm, 08/18/22 8:03:00 EDT, Route to Pharmacy Electronically, [facility], 188, cm, 07/18/22 14:01:00 EDT, Height, 122... Start Date: 08/18/22 Status: Ordered Toujeo Max SoloStar 300 units/mL subcutaneous solution = 60 units, Subcutaneous Injection, Daily, # 12 mL, 11 Refills, Maintenance, 02/08/23 10:15:00 EDT,Solution, [facility], replaces Lantus due to insurance coverage, [...] tablet, 11 Refills, Maintenance, 03/24/21 21:00:00 EST, [facility], 188, cm, 03/22/21 14:17:00 EST, Height, 125.2, kg, 06/20/20 14:28:00 EST, Dry Weight Start Date: 03/24/21 Status: Ordered Victoza 18 mg/3 mL subcutaneous solution = 1.8 mg, Subcutaneous Injection, Daily, # 9 mL, 11 Refills, Maintenance, 02/08/23 10:25:00 EDT, Solution, [facility], replaces semaglutide, 188, cm, 01/30/23 13:26:00 EDT, Height, 126, kg,01/30/23 13:26:00 EDT, Dry Weight Start Date: 02/08/23 Status: Ordered Vitamin D3 1000 intl units oral tablet 1 tablet, By Mouth, Daily, # 90 tablet, 4 Refills, Maintenance, 04/01/23 22:28:00 EST, [facility], 188, cm, 01/30/23 13:26:00 EDT, Height, [...] ? chr regional pain syndrome 4s/p Modified Gary procedure, repair of conjoined tendon of extensor [...] Team Personnel Name: Shoaib An RN Position: [facility] RN Supv Member Role: Primary Care Nurse Name: Vamshi Man MD Position: [facility] Physician - Primary Care Member Role: PCP Address: Address: [address] [place] [address] Name: Luz Potter Position: [facility] Outreach Member Role: Lifetime Consulting Physician Name: Miki Rodriguez MD Position: [facility] Renal MD Member Role: Lifetime Consulting Physician Address: Address: [address] [facility] [place] [address]- [place] Care Team Related Persons Name: BRANDON MTZ Address: home [address] [place] [address] Name: BRANDON BARKER Address: home [address] [place] [address] Name: ROSALINDA BERTRAND Address: home [address] [place] [address]
--- OUTSIDE RECORDS SUMMARY | 2023-10-11 08:12 | XMS_ITS | Continuity of Care Document ---
Author Organization [facility] Address [address] [place] [id number]- Care Team Providers Care Moss Bleacher Name Role Phone Vamshi Man MD Primary Care Physician [facility] Date[facility]): 08/06/23 - 09/05/23 [facility]/[address] [address]- Allergies, Adverse Reactions, Alerts Substance Reaction Severity Status penicillin 1 rash Resolved penicillins Active Latex RASH Active Other Food Allergy fresh peaches - itch y mouth, throat and lips swell Active 1rash per mother as child. Did take a penicillin for treatment of H pylori per pt w/o problem. Immunizations Given and Recorded Vaccine Date Status Refusal Reason SARS-CoV-2(COVID-19)mRNA-LNP vac([id number]) 01/30/23 Given influenza virus vaccine, inactivated 01/05/23 [...] influenza virus vaccine, inactivated 03/19/06 Give n [id number] 12y+ bivalent booster vax 02/16/22 Given pneumococcal 20-valent conjugate vaccine 02/16/22 Given Influenza Virus Vaccine (oldterm) 9 01/27/22 Recor ded Influenza Virus Vaccine (oldterm) 01/26/21 Recorde d SARS-CoV-2 mRNA ([id number]) vax 11/11/21 Given SARS-CoV-2 (COVID-19) mRNA BNT-162b2 [...] Bertrand 13Result Comment: [11/27/2017] REceived at [facility] [place], [place]; ordered by Dr Michael Oliveira 14Location [...] 11 Refills, Maintenance, 02/08/23 10:21:00 EDT, Powder, [facility], replaces Flovent due to insurance coverage, 188, cm, 01/30/23 13:26:00 EDT, Height, 126, kg, 01/30/23 13:26:00 EDT,... Start Date: 02/08/23 Status: Ordered Aspirin Low Dose 81 mg oral delayed release tablet 1 tablet, By Mouth, Daily, # 90 tablet, 4 Refills, Maintenance, 03/01/23 17:49:00 EST, [facility], 188, cm, 01/30/23 13:26:00 EDT, Height, 126, kg, 01/30/23 13:26:00 EDT, Dry Weight Start Date: 03/01/23 Status: Ordered atorvastatin 40 mg oral tablet 1 tablet, By Mouth, Daily, # 90 tablet, 1 Refills, Maintenance, 07/25/23 20:12:00 EDT, [facility], 188, cm, 07/05/23 11:09:00 EDT, Height, [...] 2 Refills, Maintenance, 04/27/22 23:43:00 EST, Cream, [facility], 1 application Topically 2 times a day,Instr:apply to penile rash, 188, cm, 04/27/22 13:44:00 EST, Heigh... Start Date: 04/27/22 Status: Ordered diazepam 10 mg oral tablet See Instructions, PRN, 1 tablet By Mouth 1 hr before MRI, # 1 tablet, Refills 2, Tot. Refills 2, Maintenance, as needed for anxiety, 01/30/23 15:02:00 EDT, Instructions Replace Required Details, Route to Pharmacy Electronically, [facility],... Start Date: 01/30/23 Status: Ordered diclofenac 1% topical gel = 2 Gm, Topically, 4 times a day, PRN for pain, (east timorese) not to exceed: 16 gm/day/joint lower limb8 gm/day/joint of upper limb 32 gm/day may interchange for cream, # 100 Gm, 11 Refills, Maintenance, 04/15/22 13:02:00 EST, Gel, [facility]... Start Date: 04/15/22 Status: Ordered docusate [...] 16 Gm, 11 Refills, Maintenance, 07/09/23 11:37:00EDT, [place], [facility], Partial fill upon patient request if the prescription is for a schedule II opioid drug., 2 sprays Nares, Both 2 times... Start Date: 07/09/23 Status: Ordered Freestyle Tatyana [place] Freestyle Tatyana [...] days., 08/11/23 11:15:00 EDT, Recently sent to [facility]... Start Date: 08/11/23 Status: [...] 11 Refills, Maintenance, 11/28/21 21:27:00 EDT, Solution, [facility], 188, cm, 11/22/21 16:37:00 EDT, Height, [...] Gm, 5 Refills, Maintenance, 12/22/21 7:28:00 EDT, [facility], same Rx was sent 11/11 w/ [...] 3 Refills, Maintenance, 05/07/23 16:31:00 EST, Tablet, [facility], 188, cm, 04/26/23 13:06:00 EST, Height, [...] tablet, 0 Refills, Maintenance, pain, 10/09/23 21:08:00 EDT,[facility], May partial fill., 0... Start Date: 10/09/23 Status: Ordered methadone 10 mg oral tablet See Instructions, By mouth. 2 tab in AM, 1.5 midday, 2 in evening;for pain. IDC10: G90.5 CRPS. 28 day supply. [facility]., # 154 tablet, 0 Refills, Maintenance, pain, 09/11/23 21:08:00 EDT,[facility], May partial fill., 0... Start Date: 09/11/23 Status: Ordered methadone 10 mg oral tablet See Instructions, By mouth. 2 tab in AM, 1.5 midday, 2 in evening;for pain. IDC10: G90.5 CRPS. 28 day supply. [facility]., # 154 tablet, 0 Refills, Maintenance, pain, 08/14/23 21:08:00 EDT,[facility], May partial fill., 0... Start Date: 08/14/23 Status: Ordered methadone 10 mg oral tablet See Instructions, By mouth. 2 tab in AM, 1.5 midday, 2 in evening;for pain. IDC10: G90.5 CRPS. 28 day supply. [facility]., # 154 tablet, 0 Refills, Maintenance, pain, 04/24/23 22:44:00 EST,[facility], May partial fill., 188, cm,... Start Date: 04/24/23 Status: Ordered Mounjaro 10 mg/0.5 mL subcutaneous solution = 10 mg, Subcutaneous Infusion, Every 7 days, please interchange with other Rx for 7.5 mg if unavailable., # 4 each, 11 Refills, Maintenance, 07/26/23 14:10:00 EDT, [facility], Partial fillupon patient request if the prescription is for a s... Start Date: 07/26/23 Status: Ordered Mounjaro 7.5 mg/0.5 mL subcutaneous solution = 7.5 mg, Subcutaneous Injection, Every week, rotate injection sites, # 4 each, 5 Refills, Maintenance, 07/07/23 17:04:00 EDT, Solution, [facility], should still have a couple months [...] EDT Start Date: 02/16/22 Status: Ordered Pen [place], 31 G x 8 mm BD Ultra [...] 02/18/23 19:20:00 EST, Route to Pharmacy Electronically, [facility], 188, cm, 01/30/23 13:26:00 EDT, Height, [...] tablet, 5 Refills, Maintenance, 07/09/23 11:09:00 EDT, [facility], 30, 1 tablet By Mouth Daily, 188, cm, 07/05/23 11:09:00 EDT, Height, 126.09, kg, 04/26/23 13:06:00 EST, Dry Weight Start Date: 07/09/23 Status: Ordered tamsulosin 0.4 mg oral capsule 0.8 mg, 2, capsule, By Mouth, Daily, dose increase, # 180 capsule, Refills 11, Tot. Refills 11, Maintenance, 07/26/23 14:15:00 EDT, Route to Pharmacy Electronically, [facility], 188, cm, 07/26/23 13:30:00 EDT, Height, 121.81, kg, 07/26/23 13... Start Date: 07/26/23 Status: Ordered Test Strips See Instructions, # 100 each, Refills 5, Tot. Refills 5, Maintenance, Precision Ganga strips (for Freestyle Tatyana glucometer). Type 2 diabetes mellitus on insulin (E11, Z79.4). Test 2-4x/day if symptoms, or sensor concerns., 02/08/23 10:36:00 EDT, [place] [facility]... Start Date: 02/08/23 Status: Ordered Test Strips [...] Intramuscular, Every 14 days, IM or subcutaneous. [facility]., # 2 mL, 5 Refills, Maintenance, 08/11/23 11:20:00 EDT, [facility], Last sent to [facility]. Sending now to [facility] due to pt request msg [email or web address]... Start Date: 08/11/23 Status: Ordered tiZANidine 4 mg oral tablet 4 mg, 1, tablet, By Mouth, 3 times a day, PRN, # 90 tablet, Refills 11, Tot. Refills 11, Maintenance, as needed for muscle spasm, 08/18/22 8:03:00 EDT, Route to Pharmacy Electronically, [facility], 188, cm, 07/18/22 14:01:00 EDT, Height, 122... Start Date: 08/18/22 Status: Ordered Toujeo Max SoloStar 300 units/mL subcutaneous solution = 70 units, Subcutaneous Injection, Daily, decrease frin 90u, # 12 mL, 11 Refills, Maintenance, 07/26/23 14:19:00 EDT, Solution, [facility], replaces Lantus due to insurance coverage, 188, cm, 07/26/23 13:30:00 EDT, Height, 121.81, kg, 07/25... Start Date: 07/26/23 Status: Ordered Tylenol Extra Strength 500 mg oral tablet 2 tablet = 1,000 mg, By Mouth, 3 times a day, # 30 tablet, 11 Refills, Maintenance, 03/24/21 21:00:00 EST, [facility], 188, cm, 03/22/21 14:17:00 EST, Height, 125.2, kg, 06/20/20 14:28:00 EST, Dry Weight Start Date: 03/24/21 Status: Ordered Vitamin D3 1000 intl units oral tablet 1 tablet, By Mouth, Daily, # 90 tablet, 4 Refills, Maintenance, 04/01/23 22:28:00 EST, [facility], 188, cm, 01/30/23 13:26:00 EDT, Height, [...] Team Personnel Name: Shoaib An RN Position: [facility] RN Supv Member Role: Primary Care Nurse Name: Donovan DE LOS SANTOS, Vamshi Oshea Position: [facility] Physician - Primary Care Member Role: PCP Address: Address: [address] [place] [address]- Name: Luz Potter Position: [facility] Outreach Member Role: Lifetime Consulting Physician Name: Miki Rodriguez MD Position: [facility] Renal MD Member Role: Lifetime Consulting Physician Address: Address: [address] [facility] [place] [place] [address]- Care Team Related Persons Name: BRANDON MTZ Address: [address] [place] [address] Name: BRANDON BARKER Address: home [address] [place] [address] Name: ROSALINDA BERTRAND
--- OUTSIDE RECORDS SUMMARY | 2023-10-11 08:12 | XMS_ITS | Continuity of Care Document ---
Author Organization [facility] Address [address] [place] [id number]- Care Team Providers Care Team Lead Name Role Phone Vamshi Man MD Primary Care Physician [facility]counter [facility] Date(s): 08/13/23 - 09/12/23 [facility] [address]- Allergies, Adverse Reactions, Alerts Substance Reaction Severity Status penicillin 1 rash Resolved penicillins Active Latex RASH Active Other Food Allergy fresh peaches - itch y mouth, throat and lips swell Active 1rash per mother as child. Did take a penicillin for treatment of H pylori per pt w/o problem. Immunizations Given and Recorded Vaccine Date Status Refusal Reason SARS-CoV-2(COVID-19)mRNA-LNP vac([id number]) 01/30/23 Given influenza virus vaccine, inactivated 01/05/23 [...] influenza virus vaccine, inactivated 03/19/06 Give n [id number] 12y+ bivalent booster vax 02/16/22 Given pneumococcal 20-valent conjugate vaccine 02/16/22 Given Influenza Virus Vaccine (oldterm) 9 01/27/22 Recor ded Influenza Virus Vaccine (oldterm) 01/26/21 Recorde d SARS-CoV-2 mRNA ([id number]) vax 11/11/21 Given SARS-CoV-2 (COVID-19) mRNA BNT-162b2 [...] at [facility] [place], [place]; ordered by Dr Michael Oliveira 14Location [...] 11 Refills, Maintenance, 02/08/23 10:21:00 EDT, Powder, [facility], replaces Flovent due to insurance coverage, 188, cm, 01/30/23 13:26:00 EDT, Height, 126, kg, 01/30/23 13:26:00 EDT,... Start Date: 02/08/23 Status: Ordered Aspirin Low Dose 81 mg oral delayed release tablet 1 tablet, By Mouth, Daily, # 90 tablet, 4 Refills, Maintenance, 03/01/23 17:49:00 EST, [facility], 188, cm, 01/30/23 13:26:00 EDT, Height, [...] 2 Refills, Maintenance, 04/27/22 23:43:00 EST, Cream, [facility], 1 application Topically 2 times a day,Instr:apply to penile rash, 188, cm, 04/27/22 13:44:00 EST, Heigh... Start Date: 04/27/22 Status: Ordered diazepam 10 mg oral tablet See Instructions, PRN, 1 tablet By Mouth 1 hr before MRI, # 1 tablet, Refills 2, Tot. Refills 2, Maintenance, as needed for anxiety, 01/30/23 15:02:00 EDT, Instructions Replace Required Details, Route to Pharmacy Electronically, [facility],... Start Date: 01/30/23 Status: Ordered diclofenac 1% topical gel = 2 Gm, Topically, 4 times a day, PRN for pain, (barbadian) not to exceed: 16 gm/day/joint lower limb8 gm/day/joint of upper limb 32 gm/day may interchange for cream, # 100 Gm, 11 Refills, Maintenance, 04/15/22 13:02:00 EST, Gel, [facility]... Start Date: 04/15/22 Status: Ordered docusate [...] 16 Gm, 11 Refills, Maintenance, 07/09/23 11:37:00EDT, [place], [facility], Partial fill upon patient request if the prescription is for a schedule II opioid drug., 2 sprays Nares, Both 2 times... Start Date: 07/09/23 Status: Ordered Freestyle Tatyana [place] Freestyle Tatyana [place], See Instructions, # 1 each, Refills 0, [...] days., 08/11/23 11:15:00 EDT, Recently sent to [facility]... Start Date: 08/11/23 Status: [...] 11 Refills, Maintenance, 11/28/21 21:27:00 EDT, Solution, [facility], 188, cm, 11/22/21 16:37:00 EDT, Height, [...] Gm, 5 Refills, Maintenance, 12/22/21 7:28:00 EDT, [facility], same Rx was sent 11/11 w/ [...] tablet, 0 Refills, Maintenance, pain, 10/09/23 21:08:00 EDT,[facility], May partial fill., 0... Start Date: 10/09/23 Status: Ordered methadone 10 mg oral tablet See Instructions, By mouth. 2 tab in AM, 1.5 midday, 2 in evening;for pain. IDC10: G90.5 CRPS. 28 day supply. [facility]., # 154 tablet, 0 Refills, Maintenance, pain, 09/11/23 21:08:00 EDT,[facility], May partial fill., 0... Start Date: 09/11/23 Status: Ordered methadone 10 mg oral tablet See Instructions, By mouth. 2 tab in AM, 1.5 midday, 2 in evening;for pain. IDC10: G90.5 CRPS. 28 day supply. [facility]., # 154 tablet, 0 Refills, Maintenance, pain, 08/14/23 21:08:00 EDT,[facility], May partial fill., 0... [...] EDT Start Date: 02/16/22 Status: Ordered Pen [place], 31 G x 8 mm BD Ultra [...] 02/18/23 19:20:00 EST, Route to Pharmacy Electronically, [facility], 188, cm, 01/30/23 13:26:00 EDT, Height, [...] tablet, 5 Refills, Maintenance, 07/09/23 11:09:00 EDT, [facility], 30, 1 tablet By Mouth Daily, 188, cm, 07/05/23 11:09:00 EDT, Height, 126.09, kg, 04/26/23 13:06:00 EST, Dry Weight Start Date: 07/09/23 Status: Ordered tamsulosin 0.4 mg oral capsule 0.8 mg, 2, capsule, By Mouth, Daily, dose increase, # 180 capsule, Refills 11, Tot. Refills 11, Maintenance, 07/26/23 14:15:00 EDT, Route to Pharmacy Electronically, [facility], 188, cm, 07/26/23 13:30:00 EDT, Height, 121.81, kg, 07/26/23 13... Start Date: 07/26/23 Status: Ordered Test Strips See Instructions, # 100 each, Refills 5, Tot. Refills 5, Maintenance, Precision Ganga strips (for Freestyle Tatyana glucometer). Type 2 diabetes mellitus on insulin (E11, Z79.4). Test 2-4x/day if symptoms, or sensor concerns., 02/08/23 10:36:00 EDT, [place]... Start Date: 02/08/23 Status: Ordered Test Strips [...] Intramuscular, Every 14 days, IM or subcutaneous. [facility]., # 2 mL, 5 Refills, Maintenance, 08/11/23 11:20:00 EDT, [facility], Last sent to [facility]. Sending now to [facility] due to pt request msg [email or web address]... Start Date: 08/11/23 Status: Ordered tiZANidine 4 mg oral tablet 4 mg, 1, tablet, By Mouth, 3 times a day, PRN, # 90 tablet, Refills 11, Tot. Refills 11, Maintenance, as needed for muscle spasm, 09/10/23 13:47:00 EDT, Route to Pharmacy Electronically, [facility], 188, cm, 07/26/23 17:37:00 EDT, Height, [...] tablet, 11 Refills, Maintenance, 03/24/21 21:00:00 EST, [facility], 188, cm, 03/22/21 14:17:00 EST, Height, 125.2, kg, 06/20/20 14:28:00 EST, Dry Weight Start Date: 03/24/21 Status: Ordered Vitamin D3 1000 intl units oral tablet 1 tablet, By Mouth, Daily, # 90 tablet, 4 Refills, Maintenance, 04/01/23 22:28:00 EST, [facility], 188, cm, 01/30/23 13:26:00 EDT, [...] ? chr regional pain syndrome 4s/p Modified [place] procedure, repair of conjoined tendon of extensor [...] Team Personnel Name: Shoaib An RN Position: [facility] RN Supv Member Role: Primary Care Nurse Name: Donovan DE LOS SANTOS, Vamshi Oshea Position: [facility] Physician - Primary Care Member Role: PCP Address: Address: [address] [place] [address]- Name: Luz Potter Position: [facility] Outreach Member Role: Lifetime Consulting Physician Name: Miki Rodriguez MD Position: [facility] Renal MD Member Role: Lifetime Consulting Physician Address: Address: [address] [facility] [address] [facility], [place] [address]- Care Team Related Persons Name: BRANDON MTZ Address: home [address] [facility] [address] [place] [address] Name: BRANDON BARKER Address: home [address] [place] [address] Name: ROSALINDA BERTRAND
--- OUTSIDE RECORDS SUMMARY | 2023-10-11 08:12 | XMS_ITS | Continuity of Care Document ---
Author Organization [facility] Address Unknown Care Team Providers Care Poultry Offal Icer Name Role Phone Vamshi Man MD Primary Care Physician [phone] Encounter [facility] Date(s): 08/29/21 - 09/28/21 [facility] Allergies, Adverse Reactions, Alerts Substance Reaction [...] Comment: [11/27/2017] REceived at [facility] [place], [place]; ordered by Dr Michael Oliveira 13Location [...] tablet, 5 Refills, Maintenance, 05/14/21 20:06:00 EST, [facility], 188, cm, 03/22/21 14:17:00 EST, Height, 125.2, kg, 06/20/20 14:28:00 EST, Dry Weight Start Date: 05/14/21 Status: Ordered atorvastatin 40 mg oral tablet 1 tablet, By Mouth, Daily, # 90 tablet, 1 Refills, [facility], 188, cm, 03/22/21 14:17:00EST, Height, 125.2, kg, [...] 2 Refills, Maintenance, 09/15/21 14:49:00 EDT, Cream, [facility], 1 application Topically 2 times a day,Instr:apply to penile rash, 188, cm, 09/15/21 12:49:00 EDT, Heigh... Start Date: 09/15/21 Status: Ordered Cozaar 100 mg oral tablet 1 tablet = 100 mg, By Mouth, Daily in AM, # 30 tablet, 11 Refills, Maintenance, 09/22/20 9:41:00 EDT, Tablet, [facility], duplicate rx. original sent 09/16/19. remaining [...] 06/25/20 15:39:00 EST, Route to Pharmacy Electronically, [facility], Partial f... Start Date: 06/25/20 Status: Ordered diclofenac 1% topical gel = 2 Gm, Topically, 4 times a day, PRN for pain, (kiswahili) not to exceed: 16 gm/day/joint lower limb8 gm/day/joint of upper limb 32 gm/day may interchange for cream, # 100 Gm, 5 Refills, Maintenance,07/08/20 15:35:00 EDT, Gel, [facility] Start Date: 07/08/20 Status: Ordered docusate [...] 08/22/21 16:07:00 EDT, Route to Pharmacy Electronically, [facility], Partial fill upon patient request i... Start Date: 08/22/21 Status: Ordered gabapentin 600 mg oral tablet 1 tablet = 600 mg, By Mouth, Daily at bedtime, for sciatic pain, # 25 tablet, 1 Refills, Maintenance, 09/15/21 14:34:00 EDT, [facility], Partial fill upon patient request if [...] tablet, 11 Refills, Maintenance, 07/25/21 20:18:00 EDT, [facility], 188, cm, 06/28/21 16:20:00 EDT, Height, [...] mL, 11 Refills, Maintenance, 01/14/21 18:16:00 EDT, [facility], 188, cm, 12/22/20 9:45:00 EDT, Height, 125.2, kg, 06/20/20 14:28:00EST, Dry Weight Start Date: 01/14/21 Status: Ordered latanoprost 0.005% ophthalmic solution 0 Refills, Maintenance, 05/11/20 16:57:00 EST Start Date: 05/11/20 Status: Ordered lidocaine 5% topical ointment See Instructions, PRN Pain , Moderate, 1 APPLICATION TOPICALLY 3 TIMES A DAY, # 50 Gm, 5 Refills, Maintenance, 08/29/21 22:40:00 EDT, [facility], 1 APPLICATION TOPICALLY 3 TIMES A DAY,PRN:Pain , Moderate, 188, cm, 08/26/21 9:59:00 EDT, [facility]... Start Date: 08/29/21 Status: Ordered LORazepam 1 mg oral tablet See Instructions, PRN for anxiety, 2 tablets By Mouth 1 hours prior to MRI, # 2 tablet, 1 Refills, Maintenance, 05/25/21 10:06:00 EST, Tablet, [facility], 188, cm, 05/25/21 9:26:00 EST, Height, [...] 1 Refills, Maintenance, 09/15/21 14:35:00 EDT, Tablet, [facility], Partial fill upon patient request if the prescription is for a schedule II opioid... Start Date: 09/15/21 Status: Ordered metFORMIN 500 mg oral tablet 1 tablet, By Mouth, 2 times a day, # 60 tablet, 5 Refills, [facility], 188, cm, 06/28/21 16:20:00 EDT, Height, 125.2, kg, 06/20/20 14:28:00 EST, Dry Weight Start Date: 07/08/21 Status: Ordered methadone 10 mg oral tablet See Instructions, By mouth. 2 tab in AM, 1.5 midday, 2 in evening;for pain. IDC10: G90.5 CRPS. 28 day supply. [facility]., # 154 tablet, 0 Refills, Maintenance, pain, 09/13/21 22:42:00 EDT,[facility], May partial fill., 09/13/21... Start Date: 09/13/21 Status: Ordered methadone 10 mg oral tablet See Instructions, By mouth. 2 tab in AM, 1.5 midday, 2 in evening;for pain. IDC10: G90.5 CRPS. 28 day supply. [facility]., # 154 tablet, 0 Refills, Maintenance, pain, 10/11/21 14:47:00 EDT,[facility], May partial fill., 10/11/21... Start Date: 10/11/21 Status: Ordered Metoclopramide = 10 mg, By Mouth, 3 times a day before meals and bedtime, 0 Refills, Maintenance, 08/20/18 13:55:26 EDT Start Date: 08/20/18 Status: Ordered multivitamin Multiple Vitamins oral tablet 1 tablet, By Mouth, Daily, B complex multivitamin, # 30 tablet, 11 Refills, Maintenance, 12/22/20 10:52:00 EDT, [facility], Partial fill upon patient request if the prescription is for a schedule II opioid drug., 1 tablet By Mouth Daily,Inst... Start Date: 12/22/20 Status: Ordered Narcan 4 mg/0.1 mL nasal spray = 4 mg, Nares, Both, Once, may repeat every 2 to 3 minutes until patient responds, # 2 each, 0 Refills, Soft Stop, 05/25/21 10:17:00 EST, [facility], 188, cm, 05/25/21 9:26:00 EST, Height, 125.2, kg, 06/20/20 14:28:00 EST, Dry Weight Start Date: 05/25/21 Status: Ordered nystatin-triamcinolone topical 080204 u/gm-0.1% ointment 1 applicator, Topically, 3 times a day, to foreskin area FOR 3 DAYS then switch to other antifungal, # 15 Gm, 1 Refills, Maintenance, 05/25/21 10:20:00 EST, [facility], 1 applicator Topically 3 times a [...] [place] Start Date: 08/20/18 Status: Ordered Pen [place], 31 G x 8 mm BD Ultra [...] each, 11 Refills, Maintenance, 09/15/21 14:29:00 EDT, [facility], Partial fill upon patient request if the prescription is for a schedule II opioid drug., 188, cm, 09/15/21 12:4... Start Date: 09/15/21 Status: Ordered Singulair 10 mg oral tablet 10 mg, 1, tablet, By Mouth, Daily, # 90 tablet, Refills 3, Tot. Refills 3, Maintenance, 03/30/20 21:31:00 EST, Route to Pharmacy Electronically, [facility], 185, cm, 02/25/20 10:29:00 EST, Height, [...] solution 0.75 mL, Intramuscular, Every 14 days, [facility], # 5 mL, 5 Refills, Maintenance, 07/27/21 9:48:00 EDT, [facility], 188, cm, 07/27/21 8:34:00 EDT, Height, 125.2, kg, 06/20/20 14:28:00 EST, Dry Weight Start Date: 07/27/21 Status: Ordered tiZANidine 4 mg oral tablet 4 mg, 1, tablet, By Mouth, 3 times a day, PRN, # 90 tablet, Refills 11, Tot. Refills 11, Maintenance, as needed for muscle spasm, 08/12/21 11:09:00 EDT, Route to Pharmacy Electronically, [facility], 188, cm, 07/27/21 8:34:00 EDT, Height, 125... Start Date: 08/12/21 Status: Ordered traZODone 100 mg oral tablet TAKE ONE TO TWO TABLETS BY MOUTH AT BEDTIME NEEDED S. McAnulty Start Date: 05/11/20 Status: Ordered Tylenol Extra Strength 500 mg oral tablet 2 tablet = 1,000 mg, By Mouth, 3 times a day, # 30 tablet, 11 Refills, Maintenance, 03/24/21 21:00:00 EST, [facility], 188, cm, 03/22/21 14:17:00 EST, Height, 125.2, kg, 06/20/20 14:28:00 EST, Dry Weight Start Date: 03/24/21 Status: Ordered Vitamin D3 1000 intl units oral tablet 1 tablet, By Mouth, Daily, # 30 tablet, 5 Refills, [facility], 188, cm, 03/22/21 14:17:00EST, Height, 125.2, [...]
--- OUTSIDE RECORDS SUMMARY | 2023-10-11 08:13 | XMS_ITS | Continuity of Care Document ---
Author Organization [facility] Address Unknown Care Team Providers Care Analytical Manager Name Role Phone Vamshi Man MD Primary Care Physician Encounter [facility] Date(s): 09/16/21 - 11/12/21 [facility] Attending Physician: Nik Reynolds MD Admitting Physician: [...] Vaccine Date Status Refusal Reason SARS-CoV-2 mRNA ([id number]) vax 11/11/21 Given SARS-CoV-2 (COVID-19) mRNA BNT-162b2 [...] REceived at [facility] [place], [place]; ordered by Dr Michael Oliveira 13Location [...] tablet, 5 Refills, Maintenance, 05/14/21 20:06:00 EST, [facility], 188, cm, 03/22/21 14:17:00 EST, Height, 125.2, kg, 06/20/20 14:28:00 EST, Dry Weight Start Date: 05/14/21 Status: Ordered atorvastatin 40 mg oral tablet 1 tablet, By Mouth, Daily, # 90 tablet, 1 Refills, [facility], 188, cm, 09/15/21 12:49:00EDT, Height, 125.2, kg, 06/20/20 14:28:00 EST, Dry Weight Start Date: 10/04/21 Status: Ordered AutoCPAP 9-18 with heated humidification AutoCPAP 9-18 with heated humidification, See Instructions, # 1 each, Refills 0, Tot. Refills 0, Maintenance, use overnight and naps from [facility], 11/04/18 12:28:22 EDT, Compound Start Date: 11/04/18 [...] 2 Refills, Maintenance, 09/15/21 14:49:00 EDT, Cream, [facility], 1 application [...] 06/25/20 15:39:00 EST, Route to Pharmacy Electronically, [facility], Partial f... Start Date: 06/25/20 Status: Ordered diclofenac 1% topical gel = 2 Gm, Topically, 4 times a day, PRN for pain, (sammarinese) not to exceed: 16 gm/day/joint lower limb8 gm/day/joint of upper limb 32 gm/day may interchange for cream, # 100 Gm, 5 Refills, Maintenance,07/08/20 15:35:00 EDT, Gel, [facility] Start Date: 07/08/20 Status: Ordered docusate [...] 08/22/21 16:07:00 EDT, Route to Pharmacy Electronically, [facility], Partial fill upon patient request i... Start Date: 08/22/21 Status: Ordered gabapentin 600 mg oral tablet 1 tablet = 600 mg, By Mouth, 2 times a day, PRN back pain and sciatica May cause drowsiness, do notdrive after taking Cymraes, # 28 tablet, 0 Refills, Maintenance, 11/11/21 13:27:00 EDT, [facility], Partial fill upon patient request if... Start Date: 11/11/21 Stop Date: 11/25/21 Status: Ordered gabapentin 600 mg oral tablet 1 tablet = 600 mg, By Mouth, Daily at bedtime, for sciatic pain, # 25 tablet, 1 Refills, Maintenance, 09/15/21 14:34:00 EDT, [facility], Partial fill upon patient request if [...] tablet, 11 Refills, Maintenance, 07/25/21 20:18:00 EDT, [facility], 188, cm, 06/28/21 16:20:00 EDT, Height, [...] mL, 11 Refills, Maintenance, 01/14/21 18:16:00 EDT, [facility], 188, cm, 12/22/20 9:45:00 EDT, Height, 125.2, kg, 06/20/20 14:28:00EST, Dry Weight Start Date: 01/14/21 Status: Ordered latanoprost 0.005% ophthalmic solution 0 Refills, Maintenance, 05/11/20 16:57:00 EST Start Date: 05/11/20 Status: Ordered lidocaine 5% topical ointment See Instructions, PRN Pain , Moderate, 1 APPLICATION TOPICALLY 3 TIMES A DAY, # 50 Gm, 5 Refills, Maintenance, 11/11/21 13:27:00 EDT, [facility], 1 APPLICATION TOPICALLY 3 TIMES A DAY,PRN:Pain , Moderate, 188, cm, 11/11/21 12:46:00 EDT, [facility]... Start Date: 11/11/21 Status: Ordered LORazepam 1 mg oral tablet See Instructions, PRN for anxiety, 2 tablets By Mouth 1 hours prior to MRI, # 2 tablet, 1 Refills, Maintenance, 05/25/21 10:06:00 EST, Tablet, [facility], 188, cm, 05/25/21 9:26:00 EST, Height, 125.2, kg, 06/20/20 14:28:00 EST, Dry Weight Start Date: 05/25/21 Status: Ordered losartan 100 mg oral tablet 1 tablet, By Mouth, Daily in AM, # 30 tablet, 5 Refills, [facility], 188, cm, 09/15/21 12:49:00 EDT, Height, 125.2, kg, 06/20/20 14:28:00 EST, Dry Weight Start Date: 10/04/21 Status: Ordered LUBRIC TEARS CALE 0.4-0.3% [place] INSTILL 1 DROP FOUR TIMES DAILY EACH EYE Start Date: 05/11/20 Status: Ordered meloxicam 15 mg oral tablet 1 tablet = 15 mg, By Mouth, Daily, Take with food PRN back pain Cymraes, # 14 tablet, 0 Refills, Maintenance, 11/11/21 13:26:00 EDT, [facility], Partial fill upon patient request if the prescription is for a schedule II opioid drug., 188,... Start Date: 11/11/21 Stop Date: 11/25/21 Status: Ordered metFORMIN 500 mg oral tablet 1 tablet, By Mouth, 2 times a day, # 60 tablet, 5 Refills, [facility], 188, cm, 06/28/21 16:20:00 EDT, Height, 125.2, kg, 06/20/20 14:28:00 EST, Dry Weight Start Date: 07/08/21 Status: Ordered methadone 10 mg oral tablet See Instructions, By mouth. 2 tab in AM, 1.5 midday, 2 in evening;for pain. IDC10: G90.5 CRPS. 28 day supply. [facility]., # 154 tablet, 0 Refills, Maintenance, pain, 11/08/21 7:19:00 EDT, [facility], May partial fill., 188, cm,... Start Date: 11/08/21 Status: Ordered methadone 10 mg oral tablet See Instructions, By mouth. 2 tab in AM, 1.5 midday, 2 in evening;for pain. IDC10: G90.5 CRPS. 28 day supply. [facility]., # 154 tablet, 0 Refills, Maintenance, pain, 12/06/21 7:20:00 EDT, [facility], May partial fill., 12/06/21,... Start Date: 12/06/21 Status: Ordered Metoclopramide = 10 mg, By Mouth, 3 times a day before meals and bedtime, 0 Refills, Maintenance, 08/20/18 13:55:26 EDT Start Date: 08/20/18 Status: Ordered multivitamin Multiple Vitamins oral tablet 1 tablet, By Mouth, Daily, B complex multivitamin, # 30 tablet, 11 Refills, Maintenance, 12/22/20 10:52:00 EDT, [facility], Partial fill upon patient request if the prescription is for a schedule II opioid drug., 1 tablet By Mouth Daily,Inst... Start Date: 12/22/20 Status: Ordered Narcan 4 mg/0.1 mL nasal spray = 4 mg, Nares, Both, Once, may repeat every 2 to 3 minutes until patient responds, # 2 each, 0 Refills, Soft Stop, 05/25/21 10:17:00 EST, [facility], 188, cm, 05/25/21 9:26:00 EST, Height, 125.2, kg, 06/20/20 14:28:00 EST, Dry Weight Start Date: 05/25/21 Status: Ordered nystatin-triamcinolone topical 356731 u/gm-0.1% ointment 1 applicator, Topically, 3 times a day, to foreskin area FOR 3 DAYS then switch to other antifungal, # 15 Gm, 1 Refills, Maintenance, 05/25/21 10:20:00 EST, [facility], 1 applicator Topically 3 times a [...] [place] Start Date: 08/20/18 Status: Ordered Pen [place], 31 G x 8 mm BD Ultra Fine III See Instructions, # 100 each, Refills 4, Tot. Refills 4, Maintenance, use daily Type 2 Diabetes Mellitus on insulin with pen, 09/30/21 13:16:00 EDT, Compound, 188, cm, 09/15/21 12:49:00 EDT, Height, 125.2, kg, 06/20/20 14:28:00 EST, Dry Weight Start Date: 09/30/21 Stop Date: 02/27/22 Status: Ordered prazosin 1 mg oral capsule 2 mg, AT BEDTIME Start Date: 05/11/20 Status: Ordered semaglutide 1 mg/0.5 mL (1 mg dose) subcutaneous solution = 1 mg, Subcutaneous Infusion, Every 7 days, dose increase, # 1 each, 11 Refills, Maintenance, 09/15/21 14:29:00 EDT, [facility], Partial fill upon patient request if the prescription is for a schedule II opioid drug., 188, cm, 09/15/21 12:4... Start Date: 09/15/21 Status: Ordered Singulair 10 mg oral tablet 10 mg, 1, tablet, By Mouth, Daily, # 90 tablet, Refills 3, Tot. Refills 3, Maintenance, 03/30/20 21:31:00 EST, Route to Pharmacy Electronically, [facility], 185, cm, 02/25/20 10:29:00 EST, Height, [...] solution 0.75 mL, Intramuscular, Every 14 days, [facility], # 5 mL, 5 Refills, Maintenance, 07/27/21 9:48:00 EDT, [facility], 188, cm, 07/27/21 8:34:00 EDT, Height, 125.2, kg, 06/20/20 14:28:00 EST, Dry Weight Start Date: 07/27/21 Status: Ordered tiZANidine 4 mg oral tablet 4 mg, 1, tablet, By Mouth, 3 times a day, PRN, # 90 tablet, Refills 11, Tot. Refills 11, Maintenance, as needed for muscle spasm, 08/12/21 11:09:00 EDT, Route to Pharmacy Electronically, [facility], 188, cm, 07/27/21 8:34:00 EDT, Height, 125... Start Date: 08/12/21 Status: Ordered traZODone 100 mg oral tablet TAKE ONE TO TWO TABLETS BY MOUTH AT BEDTIME NEEDED SZayra Morales Start Date: 05/11/20 Status: Ordered Tylenol Extra Strength 500 mg oral tablet 2 tablet = 1,000 mg, By Mouth, 3 times a day, # 30 tablet, 11 Refills, Maintenance, 03/24/21 21:00:00 EST, [facility], 188, cm, 03/22/21 14:17:00 EST, Height, 125.2, kg, 06/20/20 14:28:00 EST, Dry Weight Start Date: 03/24/21 Status: Ordered Vitamin D3 1000 intl units oral tablet 1 tablet, By Mouth, Daily, for 30 days, # 30 tablet, 11 Refills, Physician Stop 10/30/22 17:07:00 EDT, 11/04/21 17:07:00 EDT, [facility], 188, cm, 09/15/21 12:49:00 EDT, Height, [...] ? chr regional pain syndrome 4s/p Modified [place] procedure, repair of conjoined tendon of extensor [...]
--- OUTSIDE RECORDS SUMMARY | 2023-10-11 08:13 | XMS_ITS | Continuity of Care Document ---
Author Organization [facility] Address Unknown Care Team Providers Care Motor Transport Inspector Name Role Phone Vamshi Man MD Primary Care Physician [facility] Date[facility]): 07/25/21 - 08/24/21 [facility] Allergies, Adverse Reactions, Alerts Substance Reaction [...] Elissa Bertrand 12Result Comment: [11/27/2017] REceived at [facility] at [place], [place]; ordered by Dr Michael Oliveira 13Location [...] tablet, 5 Refills, Maintenance, 05/14/21 20:06:00 EST, [facility], 188, cm, 03/22/21 14:17:00 EST, Height, 125.2, kg, 06/20/20 14:28:00 EST, Dry Weight Start Date: 05/14/21 Status: Ordered atorvastatin 40 mg oral tablet 1 tablet, By Mouth, Daily, # 90 tablet, 1 Refills, [facility], 188, cm, 03/22/21 14:17:00EST, Height, 125.2, [...] 2 Refills, Maintenance, 01/07/20 14:49:00 EDT, Cream, [facility], 1 application Topically 2 times a day,Instr:apply to penile rash, 185, cm, 01/07/20 13:55:00 EDT, [facility]... Start Date: 01/07/20 Status: Ordered Cozaar 100 mg oral tablet 1 tablet = 100 mg, By Mouth, Daily in AM, # 30 tablet, 11 Refills, Maintenance, 09/22/20 9:41:00 EDT, Tablet, [facility], duplicate rx. original sent 09/16/19. remaining [...] 06/25/20 15:39:00 EST, Route to Pharmacy Electronically, [facility], Partial f... Start Date: 06/25/20 Status: Ordered diclofenac 1% topical gel = 2 Gm, Topically, 4 times a day, PRN for pain, (arabic) not to exceed: 16 gm/day/joint lower limb8 gm/day/joint of upper limb 32 gm/day may interchange for cream, # 100 Gm, 5 Refills, Maintenance,07/08/20 15:35:00 EDT, Gel, [facility] Start Date: 07/08/20 Status: Ordered docusate [...] 08/22/21 16:07:00 EDT, Route to Pharmacy Electronically, [facility], Partial fill upon patient request i... [...] tablet, 11 Refills, Maintenance, 07/25/21 20:18:00 EDT, [facility], 188, cm, 06/28/21 16:20:00 EDT, Height, [...] mL, 11 Refills, Maintenance, 01/14/21 18:16:00 EDT, [facility], 188, cm, 12/22/20 9:45:00 EDT, Height, 125.2, kg, 06/20/20 14:28:00EST, Dry Weight Start Date: 01/14/21 Status: Ordered latanoprost 0.005% ophthalmic solution 0 Refills, Maintenance, 05/11/20 16:57:00 EST Start Date: 05/11/20 Status: Ordered lidocaine 5% topical ointment See Instructions, 1 APPLICATION TOPICALLY 3 TIMES A DAY, # 70.88 Gm, 4 Refills, Acute, [facility], 14, 1 APPLICATION TOPICALLY 3 TIMES A DAY, 188, cm, 09/22/20 8:33:00 EDT, Height, 125.2, kg, 06/20/20 14:28:00 EST, Dry Weight Start Date: 11/08/20 Status: Ordered LORazepam 1 mg oral tablet See Instructions, PRN for anxiety, 2 tablets By Mouth 1 hours prior to MRI, # 2 tablet, 1 Refills, Maintenance, 05/25/21 10:06:00 EST, Tablet, [facility], 188, cm, 05/25/21 9:26:00 EST, Height, 125.2, [...] 0 Refills, Maintenance, 08/22/21 16:07:00 EDT, Tablet, [facility], Partial fill upon patient request if the prescription is for a schedule II opioid drug., 188, cm, 05/0... Start Date: 08/22/21 Status: Ordered metFORMIN 500 mg oral tablet 1 tablet, By Mouth, 2 times a day, # 60 tablet, 5 Refills, [facility], 188, cm, 06/28/21 16:20:00 EDT, Height, 125.2, kg, 06/20/20 14:28:00 EST, Dry Weight Start Date: 07/08/21 Status: Ordered methadone 10 mg oral tablet See Instructions, By mouth. 2 tab in AM, 1.5 midday, 2 in evening;for pain. IDC10: G90.5 CRPS. 28 day supply. [facility]., # 154 tablet, 0 Refills, Maintenance, pain, 07/19/21 1:23:00 EDT, [facility], May partial fill., 07/19/21,... Start Date: 07/19/21 Status: Ordered methadone 10 mg oral tablet See Instructions, By mouth. 2 tab in AM, 1.5 midday, 2 in evening;for pain. IDC10: G90.5 CRPS. 28 day supply. [facility]., # 154 tablet, 0 Refills, Maintenance, pain, 08/16/21 11:07:00 EDT,[facility], May partial fill., 08/16/21... Start Date: 08/16/21 [...] 0 Refills, Soft Stop, 05/25/21 10:17:00 EST, [facility], 188, cm, 05/25/21 9:26:00 EST, Height, 125.2, kg, 06/20/20 14:28:00 EST, Dry Weight Start Date: 05/25/21 Status: Ordered nystatin-triamcinolone topical 294862 u/gm-0.1% ointment 1 applicator, Topically, 3 times a day, to foreskin area FOR 3 DAYS then switch to other antifungal, # 15 Gm, 1 Refills, Maintenance, 05/25/21 10:20:00 EST, [facility], 1 applicator Topically 3 times a day,Instr:to foreskin area FOR 3 DAYS t... Start Date: 05/25/21 Status: Ordered olopatadine 0.1% ophthalmic solution 1 drops, Eyes, Both, 2 times a day, 0 Refills, Maintenance, 01/01/16 18:36:52 EDT Start Date: 01/01/16 Status: Ordered ondansetron 4 mg oral tablet TAKE 1 TABLET BY MOUTH EVERY 8 HOURS NEEDED FOR NAUSEA Idalia Edwardsak Start Date: 08/20/18 Status: Ordered PARoxetine 40 mg oral tablet 40 mg, 1, tablet, By Mouth, Daily, # 30 tablet, Maintenance, 08/20/18 21:41:59 EDT Start Date: 08/20/18 Status: Ordered Pen [place], 31 G x 8 mm BD Ultra [...] mL, 11 Refills, Maintenance, 05/25/21 10:14:00 EST, [facility], Partial fill upon patient request if the prescription is for a schedule II op... Start Date: 05/25/21 Status: Ordered Singulair 10 mg oral tablet 10 mg, 1, tablet, By Mouth, Daily, # 90 tablet, Refills 3, Tot. Refills 3, Maintenance, 03/30/20 21:31:00 EST, Route to Pharmacy Electronically, [facility], 185, cm, 02/25/20 10:29:00 EST, Height, [...] 16:58:00 EST Start Date: 05/11/20 Status: Ordered Test Strips See Instructions, # 100 each, Refills 11, Tot. Refills 11, Maintenance, Glucometer test strips. Dx Diabetes M-2 on insulin (ICD-10: E11, Z79. 4). 3x per day, 08/15/21 14:12:00 EDT, Compound, 188, cm,07/27/21 8:34:00 EDT, Height, 125.2, kg, 06/20/20... Start Date: 08/15/21 Status: Ordered testosterone enanthate 200 mg/mL intramuscular solution 0.75 mL, Intramuscular, Every 14 days, [facility], # 5 mL, 5 Refills, Maintenance, 07/27/21 9:48:00 EDT, [facility], 188, cm, 07/27/21 8:34:00 EDT, Height, 125.2, kg, 06/20/20 14:28:00 EST, Dry Weight Start Date: 07/27/21 Status: Ordered tiZANidine 4 mg oral tablet 4 mg, 1, tablet, By Mouth, 3 times a day, PRN, # 90 tablet, Refills 11, Tot. Refills 11, Maintenance, as needed for muscle spasm, 08/12/21 11:09:00 EDT, Route to Pharmacy Electronically, [facility], 188, cm, 07/27/21 8:34:00 EDT, Height, 125... Start Date: 08/12/21 Status: Ordered traZODone 100 mg oral tablet TAKE ONE TO TWO TABLETS BY MOUTH AT BEDTIME NEEDED S. Carmen Start Date: 05/11/20 Status: Ordered Tylenol Extra Strength 500 mg oral tablet 2 tablet = 1,000 mg, By Mouth, 3 times a day, # 30 tablet, 11 Refills, Maintenance, 03/24/21 21:00:00 EST, [facility], 188, cm, 03/22/21 14:17:00 EST, Height, 125.2, kg, 06/20/20 14:28:00 EST, Dry Weight Start Date: 03/24/21 Status: Ordered Vitamin D3 1000 intl units oral tablet 1 tablet, By Mouth, Daily, # 30 tablet, 5 Refills, [facility], 188, cm, 03/22/21 14:17:00EST, Height, 125.2, [...]
--- OUTSIDE RECORDS SUMMARY | 2023-10-11 08:13 | XMS_ITS | Continuity of Care Document ---
Author Organization [facility] Address [address] [place] [address]- Care Team Providers Care Optics Manufacturing Technician Name Role Phone Vamshi Man MD Primary Care Physician [phone] [facility]counter [facility] Date[facility]s): 03/14/23 - 04/13/23 [facility] [address]- [place] Allergies, Adverse Reactions, Alerts Substance Reaction Severity Status penicillin 1 rash Resolved Latex RASH Active Other Food Allergy fresh peaches - itch y mouth, throat and lips swell Active 1rash per mother as child. Did take a penicillin for treatment of H pylori per pt w/o problem. Immunizations Given and Recorded Vaccine Date Status Refusal Reason SARS-CoV-2(COVID-19)mRNA-LNP vac([id number]) 01/30/23 Given influenza virus vaccine, inactivated 01/05/23 [...] influenza virus vaccine, inactivated 03/19/06 Give n [id number] 12y+ bivalent booster vax 11/3/22 Given pneumococcal 20-valent conjugate vaccine 02/16/22 Given Influenza Virus Vaccine (oldterm) 9 01/27/22 Recor ded Influenza Virus Vaccine (oldterm) 01/26/21 Recorde d SARS-CoV-2 mRNA ([id number]) vax 11/11/21 Given SARS-CoV-2 (COVID-19) mRNA BNT-162b2 [...] Elissa Bertrand 13Result Comment: [11/27/2017] REceived at [facility] at [place], [place]; ordered by Dr Michael Bogdasarian 14Location [...] 11 Refills, Maintenance, 02/08/23 10:21:00 EDT, Powder, [facility], replaces Flovent due to insurance coverage, 188, cm, 01/30/23 13:26:00 EDT, Height, 126, kg, 01/30/23 13:26:00 EDT,... Start Date: 02/08/23 Status: Ordered Aspirin Low Dose 81 mg oral delayed release tablet 1 tablet, By Mouth, Daily, # 90 tablet, 4 Refills, Maintenance, 03/01/23 17:49:00 EST, [facility], 188, cm, 01/30/23 13:26:00 EDT, Height, 126, kg, 01/30/23 13:26:00 EDT, Dry Weight Start Date: 03/01/23 Status: Ordered atorvastatin 40 mg oral tablet See Instructions, TAKE 1 TABLET BY MOUTH EVERY DAY, # 90 tablet, 1 Refills, Maintenance, 11/02/22 16:19:00 EDT, [facility], 188, cm, 10/19/22 13:16:00 EDT, Height, 122.63, kg, 11/22/21 16:37:00 EDT, Dry Weight Start Date: 11/02/22 Status: Ordered AutoCPAP 9-18 with heated humidification AutoCPAP 9-18 with heated humidification, See Instructions, # 1 each, Refills 0, Tot. Refills 0, Maintenance, use overnight and naps from [facility], 11/04/18 12:28:22 EDT, Compound Start Date: 11/04/18 Status: Ordered baclofen 5 mg oral tablet 1 tablet = 5 mg, By Mouth, 3 times a day, take it with meals x 3/day, # 12 tablet, 0 Refills, Maintenance, 05/15/22 16:24:00 EST, Tablet, [facility], Partial fill upon patient request if [...] 2 Refills, Maintenance, 04/27/22 23:43:00 EST, Cream, [facility], 1 application Topically 2 times a day,Instr:apply to penile rash, 188, cm, 04/27/22 13:44:00 EST, [facility]... Start Date: 04/27/22 Status: Ordered diazepam 10 mg oral tablet See Instructions, PRN, 1 tablet By Mouth 1 hr before MRI, # 1 tablet, Refills 2, Tot. Refills 2, Maintenance, as needed for anxiety, 01/30/23 15:02:00 EDT, Instructions Replace Required Details, Route to Pharmacy Electronically, [facility],... Start Date: 01/30/23 Status: Ordered diclofenac 1% topical gel = 2 Gm, Topically, 4 times a day, PRN for pain, (yoruba) not to exceed: 16 gm/day/joint lower limb8 gm/day/joint of upper limb 32 gm/day may interchange for cream, # 100 Gm, 11 Refills, Maintenance, 04/15/22 13:02:00 EST, Gel, [facility]... Start Date: 04/15/22 Status: Ordered docusate [...] 0 Refills, Maintenance, 09/03/22 13:58:00 EDT, Tablet, [facility], 188, cm, 07/18/22 14:01:00 EDT, Height, 122.63, kg, 11/22/21... Start Date: 09/03/22 Status: Ordered fexofenadine 60 mg oral tablet 1 tablet = 60 mg, By Mouth, 2 times a day, PRN for allergy symptoms, # 20 tablet, 0 Refills, Maintenance, 09/03/22 13:58:00 EDT, Tablet, [facility], Partial fill upon patient request if theprescription is for a schedule II opioid drug., 188... Start Date: 09/03/22 Status: Ordered fluticasone 50 mcg/inh nasal spray 0 Refills, Maintenance, 05/11/20 16:57:00 EST Start Date: 05/11/20 Status: Ordered Freestyle Tatyana Maren[place] Freestyle Tatyana Maren[place], See Instructions, # 1 each, Refills 0, [...] May cause drowsiness, do notdrive after taking Micronesian, # 28 tablet, 0 Refills, Maintenance, 04/07/22 [...] 11 Refills, Maintenance, 11/28/21 21:27:00 EDT, Solution, [facility], 188, cm, 11/22/21 16:37:00 EDT, Height, [...] Gm, 5 Refills, Maintenance, 12/22/21 7:28:00 EDT, [facility], same Rx was sent 11/11 w/ [...] 0 Refills, Maintenance, 01/12/22 7:27:00 EDT, Tablet, [facility], 188, cm, 12/26/21 14:06:00 EDT, Height, 122.63, kg, 11/22/21 16:37:00 EDT, Dry Weight Start Date: 01/12/22 Status: Ordered losartan 100 mg oral tablet See Instructions, TAKE 1 TABLET BY MOUTH DAILY IN AM, # 30 tablet, 5 Refills, Maintenance, 02/28/2314:13:00 EST, [facility], 188, cm, 01/30/23 13:26:00 EDT, Height, 126, kg, 01/30/23 13:26:00 EDT, Dry Weight Start Date: 02/28/23 Status: Ordered LUBRIC TEARS CALE 0.4-0.3% Milliliters INSTILL 1 DROP FOUR TIMES DAILY EACH EYE Start Date: 05/11/20 Status: Ordered magnesium oxide 400 mg oral tablet 1 tablet = 400 mg, By Mouth, Daily, # 30 tablet, 11 Refills, Maintenance, 04/27/22 15:29:00 EST, Tablet, [facility], Partial fill upon patient request if the prescription is for a schedule II opioid drug., 188, cm, 04/27/22 13:44:00 EST, Hei... Start Date: 04/27/22 Status: Ordered meloxicam 15 mg oral tablet 1 tablet = 15 mg, By Mouth, Daily, Take with food PRN back pain Micronesian, # 14 tablet, 0 Refills, Maintenance, 11/25/21 [...] Refills, Maintenance, 11/01/22 8:40:00 EDT, ER Tablet, [facility], Partial fill upon patient request if the prescription is for a schedule II opioid drug.... Start Date: 11/01/22 Status: Ordered methadone 10 mg oral tablet See Instructions, By mouth. 2 tab in AM, 1.5 midday, 2 in evening;for pain. IDC10: G90.5 CRPS. 28 day supply. [facility]., # 154 tablet, 0 Refills, Maintenance, pain, 03/27/23 10:28:00 EST,[facility], May partial fill., 03/27/23... Start Date: 03/27/23 Status: Ordered methadone 10 mg oral tablet See Instructions, By mouth. 2 tab in AM, 1.5 midday, 2 in evening;for pain. IDC10: G90.5 CRPS. 28 day supply. [facility]., # 154 tablet, 0 Refills, Maintenance, pain, 02/27/23 10:28:00 EST,[facility], May partial fill., 02/27/23... Start Date: 02/27/23 Status: Ordered methadone 10 mg oral tablet See Instructions, By mouth. 2 tab in AM, 1.5 midday, 2 in evening;for pain. IDC10: G90.5 CRPS. 28 day supply. [facility]. Early fill before travel., # 154 tablet, 0 Refills, Maintenance, pain, 02/27/23 14:24:00 EST, [facility],... Start Date: 02/27/23 Status: Ordered methadone 10 mg oral tablet See Instructions, By mouth. 2 tab in AM, 1.5 midday, 2 in evening;for pain. IDC10: G90.5 CRPS. 28 day supply. [facility]., # 154 tablet, 0 Refills, Maintenance, pain, 04/24/23 22:44:00 EST,[facility], May partial fill., 188, cm,... [...] 1 Refills, Soft Stop, 02/16/22 23:38:00 EDT, [facility], 188, cm, 02/16/22 13:07:00 EDT, [...] mL, 10 Refills, Maintenance, 04/01/23 22:39:00 EST, [facility], Assuming this is available given order was proposed so d/c liraglutide.... Start Date: 04/01/23 Status: Ordered pantoprazole 40 mg oral delayed release tablet 0 Refills, Maintenance, 02/16/22 23:33:00 EDT Start Date: 02/16/22 Status: Ordered PEN NEEDLES MIS [id number] PEN NEEDLES MIS [id number], See Instructions, # 100 each, 5 Refills, Maintenance, USE DAILY TYPE 2 DIABETES MELLITUS ON INSULIN WITH PEN, 08/25/22 16:39:00 EDT, 188, cm, 07/18/22 14:01:00 EDT, Height, 122.63, kg, 11/22/21 16:37:00 EDT, Dry Weight Start Date: 08/25/22 Status: Ordered Pen [place], 31 G x 8 mm BD Ultra [...] 02/18/23 19:20:00 EST, Route to Pharmacy Electronically, [facility], 188, cm, 01/30/23 13:26:00 EDT, Height, 126, kg, 01/30/23 13:26:00 EDT, Dry Weight Start Date: 02/18/23 Status: Ordered Tab-A-Kelsie oral tablet 1 tablet, By Mouth, Daily, # 30 tablet, 5 Refills, Maintenance, 12/19/22 20:41:00 EDT, [facility], 30, TAKE 1 TABLET BY MOUTH EVERY DAY, 188, cm, 10/19/22 13:16:00 EDT, Height, 122.63, kg, 11/22/21 16:37:00 EDT, Dry Weight Start Date: 12/19/22 Status: Ordered tamsulosin 0.4 mg oral capsule 0.8 mg, 2, capsule, By Mouth, Daily, dose increase, # 60 capsule, Refills 11, Tot. Refills 11, Maintenance, 07/27/22 11:57:00 EDT, Route to Pharmacy Electronically, [facility], 188, cm, 07/18/22 14:01:00 EDT, Height, 122.63, kg, 11/22/21 16:... Start Date: 07/27/22 Status: Ordered Test Strips See Instructions, # 100 each, Refills 5, Tot. Refills 5, Maintenance, Precision Ganga strips (for Freestyle Tatyana glucometer). Type 2 diabetes mellitus on insulin (E11, Z79.4). Test 2-4x/day if symptoms, or sensor concerns., 02/08/23 10:36:00 EDT, [facility]... Start Date: 02/08/23 Status: Ordered Test Strips [...] Intramuscular, Every 14 days, IM or subcutaneous. [facility]., # 2 mL, 5 Refills, Maintenance, 10/27/22 17:23:00 EDT, [facility], 188, cm, 10/19/22 13:16:00 EDT, Height, 122.63, kg, 11/22/21 16:37:00 EDT, Dry Weight Start Date: 10/27/22 Status: Ordered tiZANidine 4 mg oral tablet 4 mg, 1, tablet, By Mouth, 3 times a day, PRN, # 90 tablet, Refills 11, Tot. Refills 11, Maintenance, as needed for muscle spasm, 08/18/22 8:03:00 EDT, Route to Pharmacy Electronically, [facility], 188, cm, 07/18/22 14:01:00 EDT, Height, 122... Start Date: 08/18/22 Status: Ordered Toujeo Max SoloStar 300 units/mL subcutaneous solution = 60 units, Subcutaneous Injection, Daily, # 12 mL, 11 Refills, Maintenance, 02/08/23 10:15:00 EDT,Solution, [facility], replaces Lantus due to insurance coverage, [...] tablet, 11 Refills, Maintenance, 03/24/21 21:00:00 EST, [facility], 188, cm, 03/22/21 14:17:00 EST, Height, 125.2, kg, 06/20/20 14:28:00 EST, Dry Weight Start Date: 03/24/21 Status: Ordered Victoza 18 mg/3 mL subcutaneous solution = 1.8 mg, Subcutaneous Injection, Daily, # 9 mL, 11 Refills, Maintenance, 02/08/23 10:25:00 EDT, Solution, [facility], replaces semaglutide, 188, cm, 01/30/23 13:26:00 EDT, Height, 126, kg,01/30/23 13:26:00 EDT, Dry Weight Start Date: 02/08/23 Status: Ordered Vitamin D3 1000 intl units oral tablet 1 tablet, By Mouth, Daily, # 90 tablet, 4 Refills, Maintenance, 04/01/23 22:28:00 EST, [facility], 188, cm, 01/30/23 13:26:00 EDT, Height, [...] ? chr regional pain syndrome 4s/p Modified Herndon procedure, repair of conjoined tendon of extensor [...] Team Personnel Name: Shoaib An RN Position: [facility] RN Supv Member Role: Primary Care Nurse Name: Vamshi Man MD Position: [facility] Physician - Primary Care Member Role: PCP Address: Address: [address] [place] [address] Name: Luz Potter Position: [facility] Outreach Member Role: Lifetime Consulting Physician Name: Miki Rodriguez MD Position: [facility] Renal MD Member Role: Lifetime Consulting Physician Address: Address: [address] [place] [address] Ave [address] [facility] [place] [address]- [place] Care Team Related Persons Name: BRANDON MTZ Address: home [address] [place] [address] Name: BRANDON BARKER Address: home [address] [place] [address] Name: ROSALINDA BERTRAND Address: home [address] [place] [address]
--- OUTSIDE RECORDS SUMMARY | 2023-10-11 08:13 | XMS_ITS | Continuity of Care Document ---
Author Organization [facility] Address Unknown Care Team Providers Care Canning Machine Operator Name Role Phone Vamshi Man MD Primary Care Physician [phone] [facility] Date[facility]s): 11/08/20 - 12/08/20 [facility] Allergies, Adverse Reactions, Alerts Substance Reaction [...] Elissa Bertrand 12Result Comment: [11/27/2017] REceived at [facility] [place], [place]; ordered by Dr Michael Oliveira 13Location [...] tablet, 5 Refills, Maintenance, 11/18/20 15:30:00 EDT, [facility], 188, cm, 09/22/20 8:33:00 EDT, Height, 125.2, kg, 06/20/20 14:28:00 EST, Dry Weight Start Date: 11/18/20 Status: Ordered AutoCPAP 9-18 with heated humidification AutoCPAP 9-18 with heated humidification, See Instructions, # 1 each, Refills 0, Tot. Refills 0, Maintenance, use overnight and naps from [facility], 11/04/18 12:28:22 EDT, Compound Start Date: [...] capsule, 3 Refills, Maintenance, 03/30/20 21:36:00 EST, [facility], 185, cm, 02/25/20 10:29:00 EST, Height, 126.81, kg, 02/25/20 10:29:00 EST, Dry Weight Start Date: 03/30/20 Status: Ordered clotrimazole 1% topical cream 1 application, Topically, 2 times a day, apply to penile rash, # 30 Gm, 2 Refills, Maintenance, 01/07/20 14:49:00 EDT, Cream, [facility], 1 application Topically 2 times a day,Instr:apply to penile rash, 185, cm, 01/07/20 13:55:00 EDT, [facility]... Start Date: 01/07/20 Status: Ordered Cozaar 100 mg oral tablet 1 tablet = 100 mg, By Mouth, Daily in AM, # 30 tablet, 11 Refills, Maintenance, 09/22/20 9:41:00 EDT, Tablet, [facility], duplicate rx. original sent 09/16/19. remaining [...] 06/25/20 15:39:00 EST, Route to Pharmacy Electronically, [facility], Partial f... Start Date: 06/25/20 Status: Ordered diclofenac 1% topical gel = 2 Gm, Topically, 4 times a day, PRN for pain, (hong konger) not to exceed: 16 gm/day/joint lower limb8 gm/day/joint of upper limb 32 gm/day may interchange for cream, # 100 Gm, 5 Refills, Maintenance,07/08/20 15:35:00 EDT, Gel, [facility] Start Date: 07/08/20 Status: Ordered docusate [...] 11 Refills, Maintenance, 02/15/20 21:05:00 EST, Solution, [facility], 185, cm, 01/07/20 13:55:00 EDT, Height, [...] mL, 3 Refills, Maintenance, 07/08/20 15:42:00 EDT, [facility], Duplicate rx-Original rx sent 06/22/20. Resent., 188, cm, 07/08/20 13:42:00 EDT, Height, 125.2, kg, 06/20/20 14:28:00 EST,... Start Date: 07/08/20 Status: Ordered latanoprost 0.005% ophthalmic solution 0 Refills, Maintenance, 05/11/20 16:57:00 EST Start Date: 05/11/20 Status: Ordered lidocaine 5% topical ointment See Instructions, 1 APPLICATION TOPICALLY 3 TIMES A DAY, # 70.88 Gm, 4 Refills, Acute, [facility], 14, 1 APPLICATION TOPICALLY 3 TIMES A DAY, 188, cm, 09/22/20 8:33:00 EDT, Height, 125.2, kg, 06/20/20 14:28:00 EST, Dry Weight Start Date: 11/08/20 Status: Ordered Lipitor 40 mg oral tablet 1 tablet = 40 mg, By Mouth, Daily, # 90 tablet, 3 Refills, Maintenance, 03/30/20 21:30:00 EST, [facility], duplicate rx. original sent 11/04/19. remaining refill sent., 185, cm, 02/25/20 10:29:00 EST, Height, 126.81, kg, 02/25/20 10:29:00 EST... Start Date: 03/30/20 Status: Ordered LORazepam 1 mg oral tablet See Instructions, PRN for anxiety, 2 tablets By Mouth 1 hours prior to MRI, # 2 tablet, 0 Refills, Acute 09/22/21 9:45:00 EDT, 09/22/20 9:43:00 EDT, Tablet, [facility], Partial fill upon patient request if [...] Maintenance, pain, 11/09/20 9:00:00 EDT, [facility], August partial fill., 11/09/20,... Start Date: [...] Start Date: 05/15/18 Status: Ordered nystatin-triamcinolone topical 049915 u/gm-0.1% ointment 1 applicator, Topically, 3 times a day, to foreskin area FOR 3 DAYS then switch to other antifungal, # 15 Gm, 1 Refills, Maintenance, 07/08/20 15:34:00 EDT, [facility], 1 applicator Topically 3 times a [...] EDT Start Date: 08/20/18 Status: Ordered Pen [place], 31 G x 8 mm BD Ultra [...] 03/30/20 21:31:00 EST, Route to Pharmacy Electronically, [facility], 185, cm, 02/25/20 10:29:00 EST, Height, [...] solution 0.75 mL, Intramuscular, Every 14 days, [facility], # 5 mL, 5 Refills, Maintenance, 08/29/20 21:33:00 EDT, [facility], 188, cm, 07/08/20 13:42:00 EDT, Height, 125.2, kg, 06/20/20 14:28:00 EST, Dry Weight Start Date: 08/29/20 Status: Ordered tiZANidine 4 mg oral tablet 4 mg, 1, tablet, By Mouth, 3 times a day, PRN, # 90 tablet, Refills 11, Tot. Refills 11, Maintenance, as needed for muscle spasm, 07/08/20 15:40:00 EDT, Route to Pharmacy Electronically, [facility], 188, cm, 07/08/20 13:42:00 EDT, Height, [...]
--- OUTSIDE RECORDS SUMMARY | 2023-10-11 08:13 | XMS_ITS | Continuity of Care Document ---
Author Organization [facility] ter Address [address] [place] [id number]- Care Team Providers Care Rivet Catcher Name Role Phone Vamshi Man MD Primary Care Physician [phone] Encounter [facility] Date(s): 03/22/21 - 03/22/[address] [address]- Discharge Disposition: A-D/C Home Attending Physician: Demetris Barraza MD Admitting Physician: Demetris Barraza MD Referring Physician: Idalia Terrell Allergies, Adverse Reactions, Alerts Substance Reaction Severity [...] Bertrand 12Result Comment: [11/27/2017] REceived at [facility] [place], [place]; ordered by Dr Michael Oliveira 13Location [...] 7x/wk total. Dx: E11, 11/18/20 15:30:00 EDT, [facility], 188, cm, 09/22/20 8:33:00 EDT, Height, [...] tablet, 5 Refills, Maintenance, 11/18/20 15:30:00 EDT, [facility], 188, cm, 09/22/20 8:33:00 EDT, [...] capsule, 3 Refills, Maintenance, 03/30/20 21:36:00 EST, [facility], 185, cm, 02/25/20 10:29:00 EST, Height, 126.81, kg, 02/25/20 10:29:00 EST, Dry Weight Start Date: 03/30/20 Status: Ordered clotrimazole 1% topical cream 1 application, Topically, 2 times a day, apply to penile rash, # 30 Gm, 2 Refills, Maintenance, 01/07/20 14:49:00 EDT, Cream, [facility], 1 application Topically 2 times a day,Instr:apply to penile rash, 185, cm, 01/07/20 13:55:00 EDT, Heigh... Start Date: 01/07/20 Status: Ordered Cozaar 100 mg oral tablet 1 tablet = 100 mg, By Mouth, Daily in AM, # 30 tablet, 11 Refills, Maintenance, 09/22/20 9:41:00 EDT, Tablet, [facility], duplicate rx. original sent 09/16/19. remaining [...] 06/25/20 15:39:00 EST, Route to Pharmacy Electronically, [facility], Partial f... Start Date: 06/25/20 Status: Ordered diclofenac 1% topical gel = 2 Gm, Topically, 4 times a day, PRN for pain, (nepali) not to exceed: 16 gm/day/joint lower limb8 gm/day/joint of upper limb 32 gm/day may interchange for cream, # 100 Gm, 5 Refills, Maintenance,07/08/20 15:35:00 EDT, Gel, [facility] Start Date: 07/08/20 Status: Ordered docusate [...] 11 Refills, Maintenance, 03/03/21 21:23:00 EST, Solution, [facility], 188, cm, 02/24/21 16:26:00 EST, Height, [...] mL, 11 Refills, Maintenance, 01/14/21 18:16:00 EDT, [facility], 188, cm, 12/22/20 9:45:00 EDT, Height, 125.2, kg, 06/20/20 14:28:00EST, Dry Weight Start Date: 01/14/21 Status: Ordered latanoprost 0.005% ophthalmic solution 0 Refills, Maintenance, 05/11/20 16:57:00 EST Start Date: 05/11/20 Status: Ordered lidocaine 5% topical ointment See Instructions, 1 APPLICATION TOPICALLY 3 TIMES A DAY, # 70.88 Gm, 4 Refills, Acute, [facility], 14, 1 APPLICATION TOPICALLY 3 TIMES A DAY, 188, cm, 09/22/20 8:33:00 EDT, Height, 125.2, kg, 06/20/20 14:28:00 EST, Dry Weight Start Date: 11/08/20 Status: Ordered Lipitor 40 mg oral tablet 1 tablet = 40 mg, By Mouth, Daily, # 90 tablet, 3 Refills, Maintenance, 03/30/20 21:30:00 EST, [facility], duplicate rx. original sent 11/04/19. remaining refill sent., 185, cm, 02/25/20 10:29:00 EST, Height, 126.81, kg, 02/25/20 10:29:00 EST... Start Date: 03/30/20 Status: Ordered LORazepam 1 mg oral tablet See Instructions, PRN for anxiety, 2 tablets By Mouth 1 hours prior to MRI, # 2 tablet, 0 Refills, Acute 04/15/21 10:58:00 EST, 02/23/21 9:45:00 EST, Tablet, [facility], 188, cm, 02/23/21 9:53:00 EST, Height, 125.2, kg, 06/20/20 14:28:00 EST... Start Date: 02/23/21 Stop Date: 04/15/21 Status: Ordered LORazepam 1 mg oral tablet See Instructions, PRN for anxiety, 2 tablets By Mouth 1 hours prior to MRI, # 2 tablet, 0 Refills, Acute 09/22/21 9:45:00 EDT, 09/22/20 9:43:00 EDT, Tablet, [facility], Partial fill upon patient request if [...] 3 Refills, Maintenance, 07/08/20 15:40:00 EDT, Tablet, [facility], Duplicate rx-Original rx sent06/22/20. Resent., 188, cm, 07/08/20 13:42:00 EDT, He... Start Date: 07/08/20 Status: Ordered methadone 10 mg oral tablet See Instructions, By mouth. 2 tab in AM, 1.5 midday, 2 in evening;for pain. IDC10: G90.5 CRPS. 28 day supply. [facility]., # 154 tablet, 0 Refills, Maintenance, pain, 02/01/21 10:39:00 EDT,[facility], May partial fill., 02/01/21... Start Date: 02/01/21 Status: Ordered methadone 10 mg oral tablet See Instructions, By mouth. 2 tab in AM, 1.5 midday, 2 in evening;for pain. IDC10: G90.5 CRPS. 28 day supply. [facility]., # 154 tablet, 0 Refills, Maintenance, pain, 03/01/21 6:30:00 EST, [facility], May partial fill., 188, cm,... Start Date: 03/01/21 Status: Ordered Metoclopramide = 10 mg, By Mouth, 3 times a day before meals and bedtime, 0 Refills, Maintenance, 08/20/18 13:55:26 EDT Start Date: 08/20/18 Status: Ordered multivitamin Multiple Vitamins oral tablet 1 tablet, By Mouth, Daily, B complex multivitamin, # 30 tablet, 11 Refills, Maintenance, 12/22/20 10:52:00 EDT, [facility], Partial fill upon patient request if [...] Start Date: 05/15/18 Status: Ordered nystatin-triamcinolone topical 292378 u/gm-0.1% ointment 1 applicator, Topically, 3 times a day, to foreskin area FOR 3 DAYS then switch to other antifungal, # 15 Gm, 1 Refills, Maintenance, 07/08/20 15:34:00 EDT, [facility], 1 applicator Topically 3 times a [...] EDT Start Date: 08/20/18 Status: Ordered Pen [place], 31 G x 8 mm BD Ultra [...] 03/30/20 21:31:00 EST, Route to Pharmacy Electronically, [facility], 185, cm, 02/25/20 10:29:00 EST, Height, [...] solution 0.75 mL, Intramuscular, Every 14 days, [facility], # 5 mL, 5 Refills, Maintenance, 08/29/20 21:33:00 EDT, [facility], 188, cm, 07/08/20 13:42:00 EDT, Height, 125.2, kg, 06/20/20 14:28:00 EST, Dry Weight Start Date: 08/29/20 Status: Ordered tiZANidine 4 mg oral tablet 4 mg, 1, tablet, By Mouth, 3 times a day, PRN, # 90 tablet, Refills 11, Tot. Refills 11, Maintenance, as needed for muscle spasm, 07/08/20 15:40:00 EDT, Route to Pharmacy Electronically, [facility], 188, cm, 07/08/20 13:42:00 EDT, Height, 12... Start Date: 07/08/20 Status: Ordered traZODone 100 mg oral tablet TAKE ONE TO TWO TABLETS BY MOUTH AT BEDTIME NEEDED S. Carmen Start Date: 05/11/20 Status: Ordered Tylenol Extra Strength 500 mg oral tablet 2 tablet = 1,000 mg, By Mouth, 3 times a day, # 30 tablet, 0 Refills, Maintenance, 02/24/21 16:47:00 EST, [facility], Partial fill upon patient request if the prescription is for a scheduleII opioid drug., 188, cm, 02/24/21 16:26:00 He. MELLISA.. Start Date: 02/24/21 Status: Ordered Problem List [...] distal clavicle excision AC joint arthritis 2007 Procedures Procedure Date Related Diagnosis Body Site Status Esophagogastroduodenoscopy w ith Romero?? pH capsule placement 03/22/21 Completed Vital Signs Most recent to oldest [Reference Range]: 1 2 3 Height 188 cm (03/22/21 2:17 PM) Weight 119.3 kg (03/22/21 2:17 PM) Oxygen Saturation [94-100 %] 96 % (03/22/21 4:22 PM) 95 % (03/22/21 4:19 PM) 93 % *L* (03/22/21 4:16 PM) Pulse Rate [55-90 bpm] 93 bpm *H* (03/22/21 2:17 PM) Body Mass Index [18.5-24.99] 33.75 *>HHI* (03/22/21 2:17 PM) Blood Pressure [90-138/55-84 mm Hg] 127/94mm Hg (03/22/21 4:22 PM) 125/84mm Hg (03/22/21 4:19 PM) 116/91mm Hg (03/22/21 4:16 PM) Respiratory Rate [16-30 br/min] 14 br/min *L* (03/22/21 4:22 PM) 16 br/min (03/22/21 4:19 PM) 16 br/min (03/22/21 4:16 PM) Temperature [96.8-100.4 DegF] 97.7 DegF (03/22/21 2:17 PM) Mode of Delivery (Oxygen) Room air (03/22/21 4:22 PM) Room air (03/22/21 4:19 PM) Room air (03/22/21 4:16 PM) Blood pressure sites Arm, left (03/22/21 4:22 PM) Arm, left (03/22/21 4:19 PM) Arm, left (03/22/21 4:16 PM) Temperature Route Temporal (03/22/21 2:17 PM) Social History Social History Type Response Smoking Status Former smokeless tob acco user, quit more than 30 days ago entered on: 06/24/19 Sex Male
--- OUTSIDE RECORDS SUMMARY | 2023-10-11 08:13 | XMS_ITS | Continuity of Care Document ---
Author Organization [facility] Address [address] [place] [address]- Care Team Providers Care Briar Shop Supervisor Name Role Phone Vamshi Man MD Primary Care Physician Encounter [facility] Date(s): 03/29/22 - 04/28/22 [facility] [address]- [place] Allergies, Adverse Reactions, Alerts Substance Reaction Severity Status Other Food Allergy fresh peaches - itch y mouth, throat and lips swell Active penicillin 1 rash Resolved Latex RASH Active 1rash per mother as child. Did take a penicillin for treatment of H pylori per pt w/o problem. Immunizations Given and Recorded Vaccine Date Status Refusal Reason [id number] 12y+ bivalent booster vax 02/16/22 Given pneumococcal 20-valent conjugate vaccine 02/16/22 Given Influenza Virus Vaccine (oldterm) 1 01/27/22 Recor ded Influenza Virus Vaccine (oldterm) 01/26/21 Recorde d SARS-CoV-2 mRNA ([id number]) vax 11/11/21 Given SARS-CoV-2 (COVID-19) mRNA BNT-162b2 [...] [11/27/2017] REceived at [facility] at [place], [place]; ordered by Dr Michael Oliveira 14Location [...] tablet, 5 Refills, Maintenance, 11/20/21 13:03:00 EDT, [facility], 188, cm, 11/11/21 12:46:00 EDT, Height, 125.2, kg, 06/20/20 14:28:00 EST, Dry Weight Start Date: 11/20/21 Status: Ordered atorvastatin 40 mg oral tablet 1 tablet, By Mouth, Daily, # 90 tablet, 1 Refills, Maintenance, 04/10/22 12:34:00 EST, [facility], 188, cm, 02/16/22 13:07:00 EDT, Height, [...] 2 Refills, Maintenance, 04/27/22 23:43:00 EST, Cream, [facility], 1 application Topically 2 times a day,Instr:apply to penile rash, 188, cm, 04/27/22 13:44:00 EST, Heigh... Start Date: 04/27/22 Status: Ordered diclofenac 1% topical gel = 2 Gm, Topically, 4 times a day, PRN for pain, (czech) not to exceed: 16 gm/day/joint lower limb8 gm/day/joint of upper limb 32 gm/day may interchange for cream, # 100 Gm, 11 Refills, Maintenance, 04/15/22 13:02:00 EST, Gel, [facility]... Start Date: 04/15/22 Status: Ordered docusate [...] tablet, 0 Refills, Maintenance, 04/07/22 15:51:00 EST, [facility], 188, cm, 02/16/22 13:07:00 EDT, Hechidi... Start Date: 04/07/22 Stop Date: 04/21/22 Status: [...] 11 Refills, Maintenance, 11/28/21 21:27:00 EDT, Solution, [facility], 188, cm, 11/22/21 16:37:00 EDT, Height, [...] mL, 5 Refills, Maintenance, 01/23/22 8:43:00 EDT, [facility], 188, cm, 12/26/21 14:06:00 EDT, Height, 122.63, kg, 11/22/21 16:37:00 EDT, Dry Weight Start Date: 01/23/22 Status: Ordered latanoprost 0.005% ophthalmic solution 0 Refills, Maintenance, 05/11/20 16:57:00 EST Start Date: 05/11/20 Status: Ordered lidocaine 5% topical ointment See Instructions, PRN Pain , Moderate, 1 APPLICATION TOPICALLY 3 TIMES A DAY, # 50 Gm, 5 Refills, Maintenance, 12/22/21 7:28:00 EDT, [facility], same Rx was sent 11/11 w/ [...] 0 Refills, Maintenance, 01/12/22 7:27:00 EDT, Tablet, [facility], 188, cm, 12/26/21 14:06:00 EDT, Height, 122.63, kg, 11/22/21 16:37:00 EDT, Dry Weight Start Date: 01/12/22 Status: Ordered losartan 100 mg oral tablet 1 tablet, By Mouth, Daily in AM, # 30 tablet, 5 Refills, 03/20/22 10:07:00 EST, [facility], 188, cm, 02/16/22 13:07:00 EDT, Height, 122.63, kg, 11/22/21 16:37:00 EDT, Dry Weight Start Date: 03/20/22 Status: Ordered LUBRIC TEARS CALE 0.4-0.3% Milliliters INSTILL 1 DROP FOUR TIMES DAILY EACH EYE Start Date: 05/11/20 Status: Ordered magnesium oxide 400 mg oral tablet 1 tablet = 400 mg, By Mouth, Daily, # 30 tablet, 11 Refills, Maintenance, 04/27/22 15:29:00 EST, Tablet, [facility], Partial fill upon patient request if the prescription is for a schedule II opioid drug., 188, cm, 04/27/22 13:44:00 EST, Hei... Start Date: 04/27/22 Status: Ordered meloxicam 15 mg oral tablet 1 tablet = 15 mg, By Mouth, Daily, Take with food PRN back pain Nigerian, # 14 tablet, 0 Refills, Maintenance, 11/25/21 13:26:00 EDT, [facility], Partial fill upon patient request if the prescription is for a schedule II opioid drug., 188,... Start Date: 11/25/21 Stop Date: 12/09/21 Status: Ordered metFORMIN 750 mg oral tablet, extended release 1 tablet = 750 mg, By Mouth, Daily, [replaces the metformin 500mg bid], # 30 tablet, 11 Refills, Maintenance, 11/22/21 17:53:00 EDT, ER Tablet, [facility], Partial fill upon patient requestif the prescription is for a schedule II opioid alessandra... Start Date: 11/22/21 Status: Ordered methadone 10 mg oral tablet See Instructions, By mouth. 2 tab in AM, 1.5 midday, 2 in evening;for pain. IDC10: G90.5 CRPS. 28 day supply. [facility]., # 154 tablet, 0 Refills, Maintenance, pain, 07/18/22 23:44:00 EDT,[facility], May partial fill., 07/18/22... Start Date: 07/18/22 Status: Ordered methadone 10 mg oral tablet See Instructions, By mouth. 2 tab in AM, 1.5 midday, 2 in evening;for pain. IDC10: G90.5 CRPS. 28 day supply. [facility]., # 154 tablet, 0 Refills, Maintenance, pain, 05/23/22 23:44:00 EST,[facility], May partial fill., 05/23/22... Start Date: 05/23/22 Status: Ordered methadone 10 mg oral tablet See Instructions, By mouth. 2 tab in AM, 1.5 midday, 2 in evening;for pain. IDC10: G90.5 CRPS. 28 day supply. [facility]., # 154 tablet, 0 Refills, Maintenance, pain, 06/20/22 23:45:00 EST,[facility], August partial fill., 06/20/22... Start Date: 06/20/22 Status: Ordered methadone 10 mg oral tablet See Instructions, By mouth. 2 tab in AM, 1.5 midday, 2 in evening;for pain. IDC10: G90.5 CRPS. 28 day supply. [facility]., # 154 tablet, 0 Refills, Maintenance, pain, 04/25/22 23:30:00 EST,[facility], August partial fill., 04/25/22... Start Date: 04/25/22 Status: Ordered Metoclopramide = 10 mg, By Mouth, 3 times a day before meals and bedtime, 0 Refills, Maintenance, 08/20/18 13:55:26 EDT Start Date: 08/20/18 Status: Ordered multivitamin Multiple Vitamins oral tablet 1 tablet, By Mouth, Daily, B complex multivitamin, # 30 tablet, 11 Refills, Maintenance, 11/22/21 17:58:00 EDT, [facility], Partial fill upon patient request [...] 1 Refills, Soft Stop, 02/16/22 23:38:00 EDT, [facility], 188, cm, 02/16/22 13:07:00 EDT, [...] EDT Start Date: 02/16/22 Status: Ordered Pen [place], 31 G x 8 mm BD Ultra [...] BEDTIME Start Date: 05/11/20 Status: Ordered semaglutide 8 mg/3 mL (2 mg dose) subcutaneous solution = 2 mg, Subcutaneous Infusion, Every 7 days, in the abdomen, thigh, or upper arm. Dose increase, # 3 mL, 11 Refills, Maintenance, 04/27/22 23:40:00 EST, [facility], 188, cm, 04/27/22 13:44:00 EST, Height, 122.63, kg, 11/22/21 16:37:00 EDT,... Start Date: 04/27/22 Status: Ordered Singulair 10 mg oral tablet 10 mg, 1, tablet, By Mouth, Daily, # 90 tablet, Refills 3, Tot. Refills 3, Maintenance, 03/30/20 21:31:00 EST, Route to Pharmacy Electronically, [facility], 185, cm, 02/25/20 10:29:00 EST, Height, 126.81, kg, 02/25/20 10:29:00 EST, Dry Weight Start Date: 03/30/20 Status: Ordered tamsulosin 0.4 mg oral capsule 0.4 mg, 1, capsule, By Mouth, Daily, Per urology, # 30 capsule, Refills 11, Tot. Refills 11, Maintenance, 02/16/22 23:29:00 EDT, Route to Pharmacy Electronically, [facility], 188, cm, 02/16/22 13:07:00 EDT, Height, [...] Intramuscular, Every 14 days, IM or subcutaneous. [facility]., # 2 mL, 5 Refills, Maintenance, 02/05/22 22:55:00 EDT, [facility], 188, cm, 12/26/21 14:06:00 EDT, Height, 122.63, kg, 11/22/21 16:37:00 EDT, Dry Weight Start Date: 02/05/22 Status: Ordered tiZANidine 4 mg oral tablet 4 mg, 1, tablet, By Mouth, 3 times a day, PRN, # 90 tablet, Refills 11, Tot. Refills 11, Maintenance, as needed for muscle spasm, 08/12/21 11:09:00 EDT, Route to Pharmacy Electronically, [facility], 188, cm, 07/27/21 8:34:00 EDT, Height, 125... Start Date: 08/12/21 Status: Ordered traZODone 100 mg oral tablet TAKE ONE TO TWO TABLETS BY MOUTH AT BEDTIME NEEDED S. Carmen Start Date: 05/11/20 Status: Ordered Tylenol Extra Strength 500 mg oral tablet 2 tablet = 1,000 mg, By Mouth, 3 times a day, # 30 tablet, 11 Refills, Maintenance, 03/24/21 21:00:00 EST, [facility], 188, cm, 03/22/21 14:17:00 EST, Height, 125.2, kg, 06/20/20 14:28:00 EST, Dry Weight Start Date: 03/24/21 Status: Ordered Vitamin D3 1000 intl units oral tablet 1 tablet, By Mouth, Daily, for 30 days, # 30 tablet, 11 Refills, Physician Stop 10/30/22 17:07:00 EDT, 11/04/21 17:07:00 EDT, [facility], 188, cm, 09/15/21 12:49:00 EDT, Height, [...] ? chr regional pain syndrome 4s/p Modified [place] procedure, repair of conjoined tendon of extensor [...] Exposure to Secondhand Smoke: No entered on: 04/27/22 Sex Male Patient Care team information Care Team Personnel Name: Shoaib An RN Position: [facility] RN Supv Member Role: Primary Care Nurse Name: Vamshi Man MD Position: [facility] Primary Care Physician Member Role: PCP Address: Address: [address] [place] [address]- Name: Miki Rodriguez MD Position: [facility] Renal MD Member Role: Lifetime Consulting Physician Address: Address: [address] [facility] [address] [facility] [place] [address]- Care Team Related Persons Name: BRANDON MTZ Address: home [address] [facility] [facility] [address] [place] [address] Name: BRANDON BARKER Address: home [address] [place] [address] Name: ROSALINDA BERTRAND Address: home [address] [place] [address]
--- OUTSIDE RECORDS SUMMARY | 2023-10-11 08:13 | XMS_ITS | Continuity of Care Document ---
Author Organization [facility] Address [address] [place] [address]- Care Team Providers Care Territory Manager General Sales Name Role Phone Vamshi Man MD Primary Care Physician [phone] [facility] Date(s): 08/07/22 - 09/06/22 [facility] [address]- [place] Allergies, Adverse Reactions, Alerts Substance Reaction Severity Status penicillin 1 rash Resolved Latex RASH Active Other Food Allergy fresh peaches - itch y mouth, throat and lips swell Active 1rash per mother as child. Did take a penicillin for treatment of H pylori per pt w/o problem. Immunizations Given and Recorded Vaccine Date Status Refusal Reason [id number] 12y+ bivalent booster vax 02/16/22 Given pneumococcal 20-valent conjugate vaccine 02/16/22 Given Influenza Virus Vaccine (oldterm) 1 01/27/22 Recor ded Influenza Virus Vaccine (oldterm) 01/26/21 Recorde d SARS-CoV-2 mRNA ([id number]) vax 11/11/21 Given SARS-CoV-2 (COVID-19) mRNA BNT-162b2 [...] Elissa Bertrand 13Result Comment: [11/27/2017] REceived at [facility] [place], [place]; ordered by Dr Michael Oliveira 14Location [...] tablet, 5 Refills, Maintenance, 09/06/22 21:30:00 EDT, [facility], 188, cm, 07/18/22 14:01:00 EDT, Height, 122.63, kg, 11/22/21 16:37:00 EDT, Dry Weight Start Date: 09/06/22 Status: Ordered atorvastatin 40 mg oral tablet 1 tablet, By Mouth, Daily, # 90 tablet, 1 Refills, Maintenance, 04/10/22 12:34:00 EST, [facility], 188, cm, 02/16/22 13:07:00 EDT, Height, 122.63, kg, 11/22/21 16:37:00 EDT, Dry Weight Start Date: 04/10/22 Status: Ordered AutoCPAP 9-18 with heated humidification AutoCPAP 9-18 with heated humidification, See Instructions, # 1 each, Refills 0, Tot. Refills 0, Maintenance, use overnight and naps from [facility], 11/04/18 12:28:22 EDT, Compound Start Date: 11/04/18 Status: Ordered baclofen 5 mg oral tablet 1 tablet = 5 mg, By Mouth, 3 times a day, take it with meals x 3/day, # 12 tablet, 0 Refills, Maintenance, 05/15/22 16:24:00 EST, Tablet, [facility], Partial fill upon [...] 2 Refills, Maintenance, 04/27/22 23:43:00 EST, Cream, [facility], 1 application Topically 2 times a day,Instr:apply to penile rash, 188, cm, 04/27/22 13:44:00 EST, Francheska... Start Date: 04/27/22 Status: Ordered diclofenac 1% topical gel = 2 Gm, Topically, 4 times a day, PRN for pain, (togolese) not to exceed: 16 gm/day/joint lower limb8 gm/day/joint of upper limb 32 gm/day may interchange for cream, # 100 Gm, 11 Refills, Maintenance, 04/15/22 13:02:00 EST, Gel, [facility]... Start Date: 04/15/22 Status: Ordered docusate [...] 0 Refills, Maintenance, 09/03/22 13:58:00 EDT, Tablet, [facility], 188, cm, 07/18/22 14:01:00 EDT, Height, 122.63, kg, 11/22/21... Start Date: 09/03/22 Status: Ordered fexofenadine 60 mg oral tablet 1 tablet = 60 mg, By Mouth, 2 times a day, PRN for allergy symptoms, # 20 tablet, 0 Refills, Maintenance, 09/03/22 13:58:00 EDT, Tablet, [facility], Partial fill upon patient request if [...] May cause drowsiness, do notdrive after taking [place], # 28 tablet, 0 Refills, Maintenance, 04/07/22 15:51:00 EST[facility], [facility], 02/16/22 13:07:00 EDT, Heigh... [...] 11 Refills, Maintenance, 11/28/21 21:27:00 EDT, Solution, [facility], 188, cm, 11/22/21 16:37:00 EDT, Height, [...] mL, 5 Refills, Maintenance, 08/02/22 14:51:00 EDT, [facility], 188, cm, 07/18/22 14:01:00 EDT, Height, 122.63,kg, 11/22/21 16:37:00 EDT, Dry Weight Start Date: 08/02/22 Status: Ordered latanoprost 0.005% ophthalmic solution 0 Refills, Maintenance, 05/11/20 16:57:00 EST Start Date: 05/11/20 Status: Ordered lidocaine 5% topical ointment See Instructions, PRN Pain , Moderate, 1 APPLICATION TOPICALLY 3 TIMES A DAY, # 50 Gm, 5 Refills, Maintenance, 12/22/21 7:28:00 EDT, [facility], same Rx was sent 11/11 w/ [...] 0 Refills, Maintenance, 01/12/22 7:27:00 EDT, Tablet, [facility], 188, cm, 12/26/21 14:06:00 EDT, Height, 122.63, kg, 11/22/21 16:37:00 EDT, Dry Weight Start Date: 01/12/22 Status: Ordered losartan 100 mg oral tablet 1 tablet, By Mouth, Daily in AM, # 30 tablet, 5 Refills, 03/20/22 10:07:00 EST, [facility], 188, cm, 02/16/22 13:07:00 EDT, Height, 122.63, [...] Daily, Take with food PRN back pain [place]ib[place]ian, # 14 tablet, 0 Refills, Maintenance, 11/25/21 13:26:00 EDT, [facility], Partial fill upon patient request if the prescription is for a schedule II opioid drug., 188,... Start Date: 11/25/21 Stop Date: 12/09/21 Status: Ordered metFORMIN 750 mg oral tablet, extended release 1 tablet = 750 mg, By Mouth, Daily, [replaces the metformin 500mg bid], # 30 tablet, 11 Refills, Maintenance, 11/22/21 17:53:00 EDT, ER Tablet, [facility], Partial fill upon patient requestif the prescription is for a schedule II opioid alessandra... Start Date: 11/22/21 Status: Ordered methadone 10 mg oral tablet See Instructions, By mouth. 2 tab in AM, 1.5 midday, 2 in evening;for pain. IDC10: G90.5 CRPS. 28 day supply. [facility]., # 154 tablet, 0 Refills, Maintenance, pain, 10/10/22 19:56:00 EDT,[facility], May partial fill., 10/10/22... Start Date: 10/10/22 Status: Ordered methadone 10 mg oral tablet See Instructions, By mouth. 2 tab in AM, 1.5 midday, 2 in evening;for pain. IDC10: G90.5 CRPS. 28 day supply. [facility]., # 154 tablet, 0 Refills, Maintenance, pain, 09/12/22 19:56:00 EDT,[facility], May partial fill., 09/12/22... Start Date: 09/12/22 Status: Ordered methadone 10 mg oral tablet See Instructions, By mouth. 2 tab in AM, 1.5 midday, 2 in evening;for pain. IDC10: G90.5 CRPS. 28 day supply. [facility]., # 154 tablet, 0 Refills, Maintenance, pain, 08/15/22 19:56:00 EDT,[facility], August partial fill., 08/15/22... Start Date: 08/15/22 Status: Ordered methadone 10 mg oral tablet See Instructions, By mouth. 2 tab in AM, 1.5 midday, 2 in evening;for pain. IDC10: G90.5 CRPS. 28 day supply. [facility]., # 154 tablet, 0 Refills, Maintenance, pain, 04/25/22 23:30:00 EST,[facility], August partial fill., 04/25/22... Start Date: 04/25/22 Status: Ordered Metoclopramide = 10 mg, By Mouth, 3 times a day before meals and bedtime, 0 Refills, Maintenance, 08/20/18 13:55:26 EDT Start Date: 08/20/18 Status: Ordered multivitamin Multiple Vitamins oral tablet 1 tablet, By Mouth, Daily, B complex multivitamin, # 30 tablet, 11 Refills, Maintenance, 11/22/21 17:58:00 EDT, [facility], Partial fill upon patient request [...] 1 Refills, Soft Stop, 02/16/22 23:38:00 EDT, [facility], 188, cm, 02/16/22 13:07:00 EDT, Height,122.63, [...] Date: 02/16/22 Status: Ordered PEN NEEDLES MIS [id number] PEN NEEDLES MIS [id number], See Instructions, # 100 each, 5 Refills, Maintenance, USE DAILY 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 Start Date: 04/27/22 Status: Ordered Singulair 10 mg oral tablet 10 mg, 1, tablet, By Mouth, Daily, # 90 tablet, Refills 3, Tot. Refills 3, Maintenance, 03/30/20 21:31:00 EST, Route to Pharmacy Electronically, [facility], 185, cm, 02/25/20 10:29:00 EST, Height, 126.81, kg, 02/25/20 10:29:00 EST, Dry Weight Start Date: 03/30/20 Status: Ordered tamsulosin 0.4 mg oral capsule 0.8 mg, 2, capsule, By Mouth, Daily, dose increase, # 60 capsule, Refills 11, Tot. Refills 11, Maintenance, 07/27/22 11:57:00 EDT, Route to Pharmacy Electronically, [facility], 188, cm, 07/18/22 14:01:00 EDT, Height, [...] Intramuscular, Every 14 days, IM or subcutaneous. [facility]., # 2 mL, 5 Refills, Maintenance, 07/26/22 21:21:00 EDT, [facility], 188, cm, 07/18/22 14:01:00 EDT, Height, 122.63, kg, 11/22/21 16:37:00 EDT, Dry Weight Start Date: 07/26/22 Status: Ordered tiZANidine 4 mg oral tablet 4 mg, 1, tablet, By Mouth, 3 times a day, PRN, # 90 tablet, Refills 11, Tot. Refills 11, Maintenance, as needed for muscle spasm, 08/18/22 8:03:00 EDT, Route to Pharmacy Electronically, [facility], 188, cm, 07/18/22 14:01:00 EDT, Height, 122... Start Date: 08/18/22 Status: Ordered traZODone 100 mg oral tablet TAKE ONE TO TWO TABLETS BY MOUTH AT BEDTIME NEEDED S. McAnulty Start Date: 05/11/20 Status: Ordered Tylenol Extra Strength 500 mg oral tablet 2 tablet = 1,000 mg, By Mouth, 3 times a day, # 30 tablet, 11 Refills, Maintenance, 03/24/21 21:00:00 EST, [facility], 188, cm, 03/22/21 14:17:00 EST, Height, 125.2, kg, 06/20/20 14:28:00 EST, Dry Weight Start Date: 03/24/21 Status: Ordered Vitamin D3 1000 intl units oral tablet 1 tablet, By Mouth, Daily, for 30 days, # 30 tablet, 11 Refills, Physician Stop 10/30/22 17:07:00 EDT, 11/04/21 17:07:00 EDT, [facility], 188, cm, 09/15/21 12:49:00 EDT, Height, [...] ? chr regional pain syndrome 4s/p Modified [place] procedure, repair of conjoined tendon of extensor [...] Care Nurse Name: Vamshi Man MD Position: [facility] Physician - Primary Care Member Role: PCP Address: Address: [address] [place] [address]- Name: Miki Rodriguez MD Position: [facility] Renal MD Member Role: Lifetime Consulting Physician Address: Address: [address] [facility] [place] [address]- Care Team Related Persons Name: BRANDON MTZ Address: home [address] [place] [address] Name: BRANDON BARKER Address: home [address] [place] [address] Name: ROSALINDA BERTRAND Address: home [address] [place] [address]
--- OUTSIDE RECORDS SUMMARY | 2023-10-11 08:13 | XMS_ITS | Continuity of Care Document ---
Author Organization [facility] Address [address] [place] [id number]- Care Team Providers Care Rubber Tester Name Role Phone Vamshi aMn MD Primary Care Physician [facility] Date[facility]s): 01/02/22 - 02/01/[address] [address] Allergies, Adverse Reactions, Alerts Substance Reaction Severity Status penicillin 1 rash Resolved Latex RASH Active Other Food Allergy fresh peaches - itch y mouth, throat and lips swell Active 1rash per mother as child. Did take a penicillin for treatment of H pylori per pt w/o problem. Immunizations Given and Recorded Vaccine Date Status Refusal Reason SARS-CoV-2 mRNA ([id number]) vax 11/11/21 Given SARS-CoV-2 (COVID-19) mRNA BNT-162b2 [...] Comment: [11/27/2017] REceived at [facility] [place], [place]; ordered by Dr Michael Oliveira 13Location [...] 7x/wk total. Dx: E11, 11/18/20 15:30:00 EDT, [facility], 188, cm, 09/22/20 8:33:00 EDT, Height, [...] tablet, 5 Refills, Maintenance, 11/20/21 13:03:00 EDT, [facility], 188, cm, 11/11/21 12:46:00 EDT, Height, 125.2, kg, 06/20/20 14:28:00 EST, Dry Weight Start Date: 11/20/21 Status: Ordered atorvastatin 40 mg oral tablet 1 tablet, By Mouth, Daily, # 90 tablet, 1 Refills, [facility], 188, cm, 09/15/21 12:49:00EDT, Height, 125.2, [...] 2 Refills, Maintenance, 09/15/21 14:49:00 EDT, Cream, [facility], 1 application Topically 2 times a [...] 06/25/20 15:39:00 EST, Route to Pharmacy Electronically, [facility], Partial f... Start Date: 06/25/20 Status: Ordered diclofenac 1% topical gel = 2 Gm, Topically, 4 times a day, PRN for pain, (dominican) not to exceed: 16 gm/day/joint lower limb8 gm/day/joint of upper limb 32 gm/day may interchange for cream, # 100 Gm, 5 Refills, Maintenance,07/08/20 15:35:00 EDT, Gel, [facility] Start Date: 07/08/20 Status: Ordered docusate [...] May cause drowsiness, do notdrive after taking [place] Islander, # 28 tablet, 0 Refills, Maintenance, 01/11/22 6:31:00 EDT, [facility], 188, cm, 12/26/21 14:06:00 EDT, Height... [...] 11 Refills, Maintenance, 11/28/21 21:27:00 EDT, Solution, [facility], 188, cm, 11/22/21 16:37:00 EDT, Height, 122.63, kg, 11/22/21 16:37:00 EDT, Dry We... Start Date: 11/28/21 Status: Ordered Jardiance 10 mg oral tablet 1 tablet, By Mouth, Daily in AM, # 30 tablet, 11 Refills, Maintenance, 07/25/21 20:18:00 EDT, [facility], 188, cm, 06/28/21 16:20:00 EDT, Height, [...] mL, 5 Refills, Maintenance, 01/23/22 8:43:00 EDT, [facility], 188, cm, 12/26/21 14:06:00 EDT, Height, 122.63, kg, 11/22/21 16:37:00 EDT, Dry Weight Start Date: 01/23/22 Status: Ordered latanoprost 0.005% ophthalmic solution 0 Refills, Maintenance, 05/11/20 16:57:00 EST Start Date: 05/11/20 Status: Ordered lidocaine 5% topical ointment See Instructions, PRN Pain , Moderate, 1 APPLICATION TOPICALLY 3 TIMES A DAY, # 50 Gm, 5 Refills, Maintenance, 12/22/21 7:28:00 EDT, [facility], same Rx was sent 11/11 w/ 5 refills, 1 APPLICATION TOPICALLY 3 TIMES A DAY,PRN:Pain , Moderate, 1... Start Date: 12/22/21 Status: Ordered LORazepam 1 mg oral tablet See Instructions, PRN for anxiety, 2 tablets By Mouth 1 hours prior to MRI, # 2 tablet, 0 Refills, Maintenance, 01/12/22 7:27:00 EDT, Tablet, [facility], 188, cm, 12/26/21 14:06:00 EDT, Height, 122.63, kg, 11/22/21 16:37:00 EDT, Dry Weight Start Date: 01/12/22 Status: Ordered losartan 100 mg oral tablet 1 tablet, By Mouth, Daily in AM, # 30 tablet, 5 Refills, [facility], 188, cm, 09/15/21 12:49:00 EDT, Height, 125.2, kg, 06/20/20 14:28:00 EST, Dry Weight Start Date: 10/04/21 Status: Ordered LUBRIC TEARS CALE 0.4-0.3% [place] INSTILL 1 DROP FOUR TIMES DAILY EACH EYE Start Date: 05/11/20 Status: Ordered meloxicam 15 mg oral tablet 1 tablet = 15 mg, By Mouth, Daily, Take with food PRN back pain [place] Islander, # 14 tablet, 0 Refills, Maintenance, 11/25/21 13:26:00 EDT, [facility], Partial fill upon patient request if the prescription is for a schedule II opioid drug., 188,... Start Date: 11/25/21 Stop Date: 12/09/21 Status: Ordered metFORMIN 750 mg oral tablet, extended release 1 tablet = 750 mg, By Mouth, Daily, [replaces the metformin 500mg bid], # 30 tablet, 11 Refills, Maintenance, 11/22/21 17:53:00 EDT, ER Tablet, [facility], Partial fill upon patient requestif the prescription is for a schedule II opioid alessandra... Start Date: 11/22/21 Status: Ordered methadone 10 mg oral tablet See Instructions, By mouth. 2 tab in AM, 1.5 midday, 2 in evening;for pain. IDC10: G90.5 CRPS. 28 day supply. [facility]., # 154 tablet, 0 Refills, Maintenance, pain, 11/08/21 7:19:00 EDT, [facility], May partial fill., 188, cm,... Start Date: 11/08/21 Status: Ordered methadone 10 mg oral tablet See Instructions, By mouth. 2 tab in AM, 1.5 midday, 2 in evening;for pain. IDC10: G90.5 CRPS. 28 day supply. [facility]., # 154 tablet, 0 Refills, Maintenance, pain, 12/06/21 7:20:00 EDT, [facility], May partial fill., 12/06/21,... Start Date: 12/06/21 Status: Ordered methadone 10 mg oral tablet See Instructions, By mouth. 2 tab in AM, 1.5 midday, 2 in evening;for pain. IDC10: G90.5 CRPS. 28 day supply. [facility]., # 154 tablet, 0 Refills, Maintenance, pain, 01/31/22 7:25:00 EDT, [facility], May partial fill., 01/31/22,... Start Date: 01/31/22 Status: Ordered methadone 10 mg oral tablet See Instructions, By mouth. 2 tab in AM, 1.5 midday, 2 in evening;for pain. IDC10: G90.5 CRPS. 28 day supply. [facility]., # 154 tablet, 0 Refills, Maintenance, pain, 01/03/22 7:12:00 EDT, [facility], May partial fill., 01/03/22,... Start Date: 01/03/22 Status: Ordered Metoclopramide = 10 mg, By Mouth, 3 times a day before meals and bedtime, 0 Refills, Maintenance, 08/20/18 13:55:26 EDT Start Date: 08/20/18 Status: Ordered multivitamin Multiple Vitamins oral tablet 1 tablet, By Mouth, Daily, B complex multivitamin, # 30 tablet, 11 Refills, Maintenance, 11/22/21 17:58:00 EDT, [facility], Partial fill upon patient request if the prescription is for a schedule II opioid drug., 1 tablet By Mouth Daily,Inst... Start Date: 11/22/21 Status: Ordered Narcan 4 mg/0.1 mL nasal spray = 4 mg, Nares, Both, Once, may repeat every 2 to 3 minutes until patient responds, # 2 each, 0 Refills, Soft Stop, 05/25/21 10:17:00 EST, [facility], 188, cm, 05/25/21 9:26:00 EST, Height, 125.2, kg, 06/20/20 14:28:00 EST, Dry Weight Start Date: 05/25/21 Status: Ordered nystatin-triamcinolone topical 137727 u/gm-0.1% ointment 1 applicator, Topically, 3 times a day, to foreskin area FOR 3 DAYS then switch to other antifungal, # 15 Gm, 1 Refills, Maintenance, 05/25/21 10:20:00 EST, [facility], 1 applicator Topically 3 times a [...] [place] Start Date: 08/20/18 Status: Ordered Pen [place], 31 G x 8 mm BD Ultra Fine III See Instructions, # 150 each, Refills 11, Tot. Refills 11, Maintenance, use 2- 5x/day Type 2 Diabetes Mellitus on Lantus and Humalog insulin with pen, 02/27/22 13:16:00 EST, Compound, 188, cm, 11/22/21 16:37:00 EDT, Height, 122.63, kg, 11/22/21 16:37:0... Start Date: 02/27/22 Stop Date: 02/22/23 Status: Ordered Pen [place], 31 G x 8 mm BD Ultra [...] each, 11 Refills, Maintenance, 09/15/21 14:29:00 EDT, [facility], Partial fill upon patient request if the prescription is for a schedule II opioid drug., 188, cm, 09/15/21 12:4... Start Date: 09/15/21 Status: Ordered Singulair 10 mg oral tablet 10 mg, 1, tablet, By Mouth, Daily, # 90 tablet, Refills 3, Tot. Refills 3, Maintenance, 03/30/20 21:31:00 EST, Route to Pharmacy Electronically, [facility], 185, cm, 02/25/20 10:29:00 EST, Height, [...] Intramuscular, Every 14 days, IM or subcutaneous. [facility]., # 5 mL, 5 Refills, Maintenance, 11/22/21 17:58:00 EDT, [facility], 188, cm, 11/22/21 16:37:00 EDT, Height, 122.63, kg, 11/22/21 16:37:00 EDT, Dry Weight Start Date: 11/22/21 Status: Ordered tiZANidine 4 mg oral tablet 4 mg, 1, tablet, By Mouth, 3 times a day, PRN, # 90 tablet, Refills 11, Tot. Refills 11, Maintenance, as needed for muscle spasm, 08/12/21 11:09:00 EDT, Route to Pharmacy Electronically, [facility], 188, cm, 07/27/21 8:34:00 EDT, Height, 125... Start Date: 08/12/21 Status: Ordered traZODone 100 mg oral tablet TAKE ONE TO TWO TABLETS BY MOUTH AT BEDTIME NEEDED Damaris Morales Start Date: 05/11/20 Status: Ordered Tylenol Extra Strength 500 mg oral tablet 2 tablet = 1,000 mg, By Mouth, 3 times a day, # 30 tablet, 11 Refills, Maintenance, 03/24/21 21:00:00 EST, [facility], 188, cm, 03/22/21 14:17:00 EST, Height, 125.2, kg, 06/20/20 14:28:00 EST, Dry Weight Start Date: 03/24/21 Status: Ordered Vitamin D3 1000 intl units oral tablet 1 tablet, By Mouth, Daily, for 30 days, # 30 tablet, 11 Refills, Physician Stop 10/30/22 17:07:00 EDT, 11/04/21 17:07:00 EDT, [facility], 188, cm, 09/15/21 12:49:00 EDT, Height, [...] DE LOS SANTOS, Vamshi Oshea Address: Address: [address] [place] [address]-
--- OUTSIDE RECORDS SUMMARY | 2023-10-11 08:13 | XMS_ITS | Continuity of Care Document ---
Author Organization [facility] Address Unknown Care Team Providers Care Diesel Mechanic Helper Name Role Phone Vamshi Man MD Primary Care Physician Encounter [facility] Date(s): 03/01/21 - 03/31/21 [facility] Allergies, Adverse Reactions, Alerts Substance Reaction [...] at [facility] [place], [place]; ordered by Dr Michael Oliveira 13Location [...] tablet, 5 Refills, Maintenance, 11/18/20 15:30:00 EDT, [facility], 188, cm, 09/22/20 8:33:00 EDT, Height, 125.2, kg, 06/20/20 14:28:00 EST, Dry Weight Start Date: 11/18/20 Status: Ordered AutoCPAP 9-18 with heated humidification AutoCPAP 9-18 with heated humidification, See Instructions, # 1 each, Refills 0, Tot. Refills 0, Maintenance, use overnight and naps from [facility], 11/04/18 12:28:22 EDT, Compound Start Date: 11/04/18 [...] capsule, 3 Refills, Maintenance, 03/30/20 21:36:00 EST, [facility], 185, cm, 02/25/20 10:29:00 EST, Height, 126.81, kg, 02/25/20 10:29:00 EST, Dry Weight Start Date: 03/30/20 Status: Ordered clotrimazole 1% topical cream 1 application, Topically, 2 times a day, apply to penile rash, # 30 Gm, 2 Refills, Maintenance, 01/07/20 14:49:00 EDT, Cream, [facility], 1 application Topically 2 times a day,Instr:apply to penile rash, 185, cm, 01/07/20 13:55:00 EDT, [facility]... Start Date: 01/07/20 Status: Ordered Cozaar 100 mg oral tablet 1 tablet = 100 mg, By Mouth, Daily in AM, # 30 tablet, 11 Refills, Maintenance, 09/22/20 9:41:00 EDT, Tablet, [facility], duplicate rx. original sent 09/16/19. [...] 06/25/20 15:39:00 EST, Route to Pharmacy Electronically, [facility], Partial f... Start Date: 06/25/20 Status: Ordered diclofenac 1% topical gel = 2 Gm, Topically, 4 times a day, PRN for pain, (bermudian) not to exceed: 16 gm/day/joint lower limb8 gm/day/joint of upper limb 32 gm/day may interchange for cream, # 100 Gm, 5 Refills, Maintenance,07/08/20 15:35:00 EDT, Gel, [facility] Start Date: 07/08/20 Status: Ordered [...] 11 Refills, Maintenance, 03/03/21 21:23:00 EST, Solution, [facility], 188, cm, 02/24/21 16:26:00 EST, Height, [...] mL, 11 Refills, Maintenance, 01/14/21 18:16:00 EDT, [facility], 188, cm, 12/22/20 9:45:00 EDT, Height, 125.2, kg, 06/20/20 14:28:00EST, Dry Weight Start Date: 01/14/21 Status: Ordered latanoprost 0.005% ophthalmic solution 0 Refills, Maintenance, 05/11/20 16:57:00 EST Start Date: 05/11/20 Status: Ordered lidocaine 5% topical ointment See Instructions, 1 APPLICATION TOPICALLY 3 TIMES A DAY, # 70.88 Gm, 4 Refills, Acute, [facility], 14, 1 APPLICATION TOPICALLY 3 TIMES A DAY, 188, cm, 09/22/20 8:33:00 EDT, Height, 125.2, kg, 06/20/20 14:28:00 EST, Dry Weight Start Date: 11/08/20 Status: Ordered Lipitor 40 mg oral tablet 1 tablet = 40 mg, By Mouth, Daily, # 90 tablet, 3 Refills, Maintenance, 03/30/20 21:30:00 EST, [facility], duplicate rx. original sent 11/04/19. remaining refill sent., 185, cm, 02/25/20 10:29:00 EST, Height, 126.81, kg, 02/25/20 10:29:00 EST... Start Date: 03/30/20 Status: Ordered LORazepam 1 mg oral tablet See Instructions, PRN for anxiety, 2 tablets By Mouth 1 hours prior to MRI, # 2 tablet, 0 Refills, Acute 04/15/21 10:58:00 EST, 02/23/21 9:45:00 EST, Tablet, [facility], 188, cm, 02/23/21 9:53:00 EST, Height, 125.2, kg, 06/20/20 14:28:00 EST... Start Date: 02/23/21 Stop Date: 04/15/21 Status: Ordered LORazepam 1 mg oral tablet See Instructions, PRN for anxiety, 2 tablets By Mouth 1 hours prior to MRI, # 2 tablet, 0 Refills, Acute 09/22/21 9:45:00 EDT, 09/22/20 9:43:00 EDT, Tablet, [facility], Partial fill upon patient request if the prescription is for a schedule... Start Date: 09/22/20 Stop Date: 09/22/21 Status: Ordered LORazepam 1 mg oral tablet See Instructions, PRN for anxiety, 2 tablets By Mouth 1 hours prior to MRI, # 2 tablet, 0 Refills, Maintenance, 04/15/21 10:58:00 EST, Tablet, [facility], 188, cm, 03/22/21 14:17:00 EST, Height, [...] 3 Refills, Maintenance, 07/08/20 15:40:00 EDT, Tablet, [facility], Duplicate rx-Original rx sent06/22/20. Resent., 188, cm, 07/08/20 13:42:00 EDT, He... Start Date: 07/08/20 Status: Ordered methadone 10 mg oral tablet See Instructions, By mouth. 2 tab in AM, 1.5 midday, 2 in evening;for pain. IDC10: G90.5 CRPS. 28 day supply. [facility]., # 154 tablet, 0 Refills, Maintenance, pain, 03/29/21 21:05:00 EST,[facility], May partial fill., 03/29/21... Start Date: 03/29/21 Status: Ordered methadone 10 mg oral tablet See Instructions, By mouth. 2 tab in AM, 1.5 midday, 2 in evening;for pain. IDC10: G90.5 CRPS. 28 day supply. [facility]., # 154 tablet, 0 Refills, Maintenance, pain, 04/26/21 0:34:00 EST, [facility], May partial fill., 04/26/21,... Start Date: 04/26/21 Status: Ordered Metoclopramide = 10 mg, By Mouth, 3 times a day before meals and bedtime, 0 Refills, Maintenance, 08/20/18 13:55:26 EDT Start Date: 08/20/18 Status: Ordered multivitamin Multiple Vitamins oral tablet 1 tablet, By Mouth, Daily, B complex multivitamin, # 30 tablet, 11 Refills, Maintenance, 12/22/20 10:52:00 EDT, [facility], Partial fill upon patient request [...] Start Date: 05/15/18 Status: Ordered nystatin-triamcinolone topical 910117 u/gm-0.1% ointment 1 applicator, Topically, 3 times a day, to foreskin area FOR 3 DAYS then switch to other antifungal, # 15 Gm, 1 Refills, Maintenance, 07/08/20 15:34:00 EDT, [facility], 1 applicator Topically 3 times [...] EDT Start Date: 08/20/18 Status: Ordered Pen [place], 31 G x 8 mm BD Ultra [...] 03/30/20 21:31:00 EST, Route to Pharmacy Electronically, [facility], 185, cm, 02/25/20 10:29:00 EST, [...] solution 0.75 mL, Intramuscular, Every 14 days, [facility], # 5 mL, 5 Refills, Maintenance, 03/25/21 1:06:00 EST, [facility], 188, cm, 03/22/21 14:17:00 EST, Height, 125.2, kg, 06/20/20 14:28:00 EST, Dry Weight Start Date: 03/25/21 Status: Ordered tiZANidine 4 mg oral tablet 4 mg, 1, tablet, By Mouth, 3 times a day, PRN, # 90 tablet, Refills 11, Tot. Refills 11, Maintenance, as needed for muscle spasm, 07/08/20 15:40:00 EDT, Route to Pharmacy Electronically, [facility], 188, cm, 07/08/20 13:42:00 EDT, Height, 12... Start Date: 07/08/20 Status: Ordered traZODone 100 mg oral tablet TAKE ONE TO TWO TABLETS BY MOUTH AT BEDTIME NEEDED S. Adyroseanna Start Date: 05/11/20 Status: Ordered Tylenol Extra Strength 500 mg oral tablet 2 tablet = 1,000 mg, By Mouth, 3 times a day, # 30 tablet, 11 Refills, Maintenance, 03/24/21 21:00:00 EST, [facility], 188, cm, 03/22/21 14:17:00 EST, [...]
--- OUTSIDE RECORDS SUMMARY | 2023-10-11 08:13 | XMS_ITS | Continuity of Care Document ---
Author Organization [facility] Address [address] [place] [address]- Care Team Providers Care Fish Agent Name Role Phone Vamshi Man MD Primary Care Physician Encounter [facility] Date(s): 03/28/22 - 04/27/22 [facility]/[place] [address]- [place] Allergies, Adverse Reactions, Alerts Substance Reaction Severity Status penicillin 1 rash Resolved Latex RASH Active Other Food Allergy fresh peaches - itch y mouth, throat and lips swell Active 1rash per mother as child. Did take a penicillin for treatment of H pylori per pt w/o problem. Immunizations Given and Recorded Vaccine Date Status Refusal Reason [id number] 12y+ bivalent booster vax 02/16/22 Given pneumococcal 20-valent conjugate vaccine 02/16/22 Given Influenza Virus Vaccine (oldterm) 1 01/27/22 Recor ded Influenza Virus Vaccine (oldterm) 01/26/21 Recorde d SARS-CoV-2 mRNA ([id number]) vax 11/11/21 Given SARS-CoV-2 (COVID-19) mRNA BNT-162b2 [...] [11/27/2017] REceived at [facility] [place], [place]; ordered by Dr Michael Oliveira 14Location [...] tablet, 5 Refills, Maintenance, 11/20/21 13:03:00 EDT, [facility], 188, cm, 11/11/21 12:46:00 EDT, Height, 125.2, kg, 06/20/20 14:28:00 EST, Dry Weight Start Date: 11/20/21 Status: Ordered atorvastatin 40 mg oral tablet 1 tablet, By Mouth, Daily, # 90 tablet, 1 Refills, Maintenance, 04/10/22 12:34:00 EST, [facility], 188, cm, 02/16/22 13:07:00 EDT, Height, [...] 2 Refills, Maintenance, 04/27/22 23:43:00 EST, Cream, [facility], 1 application Topically 2 times a day,Instr:apply to penile rash, 188, cm, 04/27/22 13:44:00 EST, [facility]... Start Date: 04/27/22 Status: Ordered diclofenac 1% topical gel = 2 Gm, Topically, 4 times a day, PRN for pain, (welsh) not to exceed: 16 gm/day/joint lower limb8 gm/day/joint of upper limb 32 gm/day may interchange for cream, # 100 Gm, 11 Refills, Maintenance, 04/15/22 13:02:00 EST, Gel, [facility]... Start Date: 04/15/22 Status: Ordered docusate [...] May cause drowsiness, do notdrive after taking Maltese, # 28 tablet, 0 Refills, Maintenance, 04/07/22 15:51:00 EST, [facility], 188, cm, 02/16/22 13:07:00 EDT, Heigh... Start [...] 11 Refills, Maintenance, 11/28/21 21:27:00 EDT, Solution, [facility], 188, cm, 11/22/21 16:37:00 EDT, Height, [...] mL, 5 Refills, Maintenance, 01/23/22 8:43:00 EDT, [facility], 188, cm, 12/26/21 14:06:00 EDT, Height, 122.63, kg, 11/22/21 16:37:00 EDT, Dry Weight Start Date: 01/23/22 Status: Ordered latanoprost 0.005% ophthalmic solution 0 Refills, Maintenance, 05/11/20 16:57:00 EST Start Date: 05/11/20 Status: Ordered lidocaine 5% topical ointment See Instructions, PRN Pain , Moderate, 1 APPLICATION TOPICALLY 3 TIMES A DAY, # 50 Gm, 5 Refills, Maintenance, 12/22/21 7:28:00 EDT, [facility], same Rx was sent 11/11 w/ [...] 0 Refills, Maintenance, 01/12/22 7:27:00 EDT, Tablet, [facility], 188, cm, 12/26/21 14:06:00 EDT, Height, 122.63, kg, 11/22/21 16:37:00 EDT, Dry Weight Start Date: 01/12/22 Status: Ordered losartan 100 mg oral tablet 1 tablet, By Mouth, Daily in AM, # 30 tablet, 5 Refills, 03/20/22 10:07:00 EST, [facility], 188, cm, 02/16/22 13:07:00 EDT, Height, 122.63, kg, 11/22/21 16:37:00 EDT, Dry Weight Start Date: 03/20/22 Status: Ordered LUBRIC TEARS CALE 0.4-0.3% Milliliters INSTILL 1 DROP FOUR TIMES DAILY EACH EYE Start Date: 05/11/20 Status: Ordered magnesium oxide 400 mg oral tablet 1 tablet = 400 mg, By Mouth, Daily, # 30 tablet, 11 Refills, Maintenance, 04/27/22 15:29:00 EST, Tablet, [facility], Partial fill upon patient request if the prescription is for a schedule II opioid drug., 188, cm, 04/27/22 13:44:00 EST, Hei... Start Date: 04/27/22 Status: Ordered meloxicam 15 mg oral tablet 1 tablet = 15 mg, By Mouth, Daily, Take with food PRN back pain Maltese, # 14 tablet, 0 Refills, Maintenance, 11/25/21 13:26:00 EDT, [facility], Partial fill upon patient request if the prescription is for a schedule II opioid drug., 188,... Start Date: 11/25/21 Stop Date: 12/09/21 Status: Ordered metFORMIN 750 mg oral tablet, extended release 1 tablet = 750 mg, By Mouth, Daily, [replaces the metformin 500mg bid], # 30 tablet, 11 Refills, Maintenance, 11/22/21 17:53:00 EDT, ER Tablet, [facility], Partial fill upon patient requestif the prescription is for a schedule II opioid alessandra... Start Date: 11/22/21 Status: Ordered methadone 10 mg oral tablet See Instructions, By mouth. 2 tab in AM, 1.5 midday, 2 in evening;for pain. IDC10: G90.5 CRPS. 28 day supply. [facility]., # 154 tablet, 0 Refills, Maintenance, pain, 07/18/22 23:44:00 EDT,[facility], May partial fill., 07/18/22... Start Date: 07/18/22 Status: Ordered methadone 10 mg oral tablet See Instructions, By mouth. 2 tab in AM, 1.5 midday, 2 in evening;for pain. IDC10: G90.5 CRPS. 28 day supply. [facility]., # 154 tablet, 0 Refills, Maintenance, pain, 05/23/22 23:44:00 EST,[facility], May partial fill., 05/23/22... Start Date: 05/23/22 Status: Ordered methadone 10 mg oral tablet See Instructions, By mouth. 2 tab in AM, 1.5 midday, 2 in evening;for pain. IDC10: G90.5 CRPS. 28 day supply. [facility]., # 154 tablet, 0 Refills, Maintenance, pain, 03/07/23 23:45:00 EST,[facility], May partial fill., 06/20/22... Start Date: 06/20/22 Status: Ordered methadone 10 mg oral tablet See Instructions, By mouth. 2 tab in AM, 1.5 midday, 2 in evening;for pain. IDC10: G90.5 CRPS. 28 day supply. [facility]., # 154 tablet, 0 Refills, Maintenance, pain, 04/25/22 23:30:00 EST,[facility], May partial fill., 04/25/22... Start Date: 04/25/22 Status: Ordered Metoclopramide = 10 mg, By Mouth, 3 times a day before meals and bedtime, 0 Refills, Maintenance, 08/20/18 13:55:26 EDT Start Date: 08/20/18 Status: Ordered multivitamin Multiple Vitamins oral tablet 1 tablet, By Mouth, Daily, B complex multivitamin, # 30 tablet, 11 Refills, Maintenance, 11/22/21 17:58:00 EDT, [facility], Partial fill upon patient request [...] 1 Refills, Soft Stop, 02/16/22 23:38:00 EDT, [facility], 188, cm, 02/16/22 13:07:00 EDT, [...] EDT Start Date: 02/16/22 Status: Ordered Pen [place], 31 G x 8 mm BD Ultra [...] mL, 11 Refills, Maintenance, 04/27/22 23:40:00 EST, [facility], 188, cm, 04/27/22 13:44:00 EST, Height, 122.63, kg, 11/22/21 16:37:00 EDT,... Start Date: 04/27/22 Status: Ordered Singulair 10 mg oral tablet 10 mg, 1, tablet, By Mouth, Daily, # 90 tablet, Refills 3, Tot. Refills 3, Maintenance, 03/30/20 21:31:00 EST, Route to Pharmacy Electronically, [facility], 185, cm, 02/25/20 10:29:00 EST, Height, 126.81, kg, 02/25/20 10:29:00 EST, Dry Weight Start Date: 03/30/20 Status: Ordered tamsulosin 0.4 mg oral capsule 0.4 mg, 1, capsule, By Mouth, Daily, Per urology, # 30 capsule, Refills 11, Tot. Refills 11, Maintenance, 02/16/22 23:29:00 EDT, Route to Pharmacy Electronically, [facility], 188, cm, 02/16/22 13:07:00 EDT, Height, [...] Intramuscular, Every 14 days, IM or subcutaneous. [facility]., # 2 mL, 5 Refills, Maintenance, 02/05/22 22:55:00 EDT, [facility], 188, cm, 12/26/21 14:06:00 EDT, Height, 122.63, kg, 11/22/21 16:37:00 EDT, Dry Weight Start Date: 02/05/22 Status: Ordered tiZANidine 4 mg oral tablet 4 mg, 1, tablet, By Mouth, 3 times a day, PRN, # 90 tablet, Refills 11, Tot. Refills 11, Maintenance, as needed for muscle spasm, 08/12/21 11:09:00 EDT, Route to Pharmacy Electronically, [facility], 188, cm, 07/27/21 8:34:00 EDT, Height, 125... Start Date: 08/12/21 Status: Ordered traZODone 100 mg oral tablet TAKE ONE TO TWO TABLETS BY MOUTH AT BEDTIME NEEDED Damaris Morales Start Date: 05/11/20 Status: Ordered Tylenol Extra Strength 500 mg oral tablet 2 tablet = 1,000 mg, By Mouth, 3 times a day, # 30 tablet, 11 Refills, Maintenance, 03/24/21 21:00:00 EST, [facility], 188, cm, 03/22/21 14:17:00 EST, Height, 125.2, kg, 06/20/20 14:28:00 EST, Dry Weight Start Date: 03/24/21 Status: Ordered Vitamin D3 1000 intl units oral tablet 1 tablet, By Mouth, Daily, for 30 days, # 30 tablet, 11 Refills, Physician Stop 10/30/22 17:07:00 EDT, 11/04/21 17:07:00 EDT, [facility], 188, cm, 09/15/21 12:49:00 EDT, Height, [...] chr regional pain syndrome 4s/p Modified [place] procedure, repair of conjoined tendon of extensor [...] Team Personnel Name: Shoaib An RN Position: [facility] RN Supv Member Role: Primary Care Nurse Name: Vamshi Man MD Position: [facility] Primary Care Physician Member Role: PCP Address: Address: [address] [place] [address]- Name: Miki Rodriguez MD Position: [facility] Renal MD Member Role: Lifetime Consulting Physician Address: Address: [address] [facility] [place] [address]- Care Team Related Persons Name: BRANDON MTZ Address: home [address] [place] [address] Name: BRANDON BARKER Address: home [address] [place] [address] Name: ROSALINDA BERTRAND Address: home [address] [place] [address]
--- OUTSIDE RECORDS SUMMARY | 2023-10-11 08:13 | XMS_ITS | Continuity of Care Document ---
Author Organization [facility] Address [address] [place] [address]- Care Team Providers Care Underpresser Hand Name Role Phone Vamshi Man MD Primary Care Physician Encounter [facility] Date(s): 01/06/20 - 02/05/20 [facility] [address] [address]- [facility] Allergies, Adverse Reactions, Alerts Substance [...] Comment: [11/27/2017] REceived at [facility] [place], [place]; ordered by Dr Michael Oliveira 12Location [...] 11/04/19 15:57:00 EDT, Route to Pharmacy Electronically, [facility], 185, cm, 06/24/19 13:00:00 EDT, Height, 127.72, kg, 05/06/19 13:41:00 EST, Dry Weight Start Date: 11/04/19 Status: Ordered AutoCPAP 9-18 with heated humidification AutoCPAP 9-18 with heated humidification, See Instructions, # 1 each, Refills 0, Tot. Refills 0, Maintenance, use overnight and naps from [facility], 11/04/18 12:28:22 EDT, Compound Start [...] 2 Refills, Maintenance, 01/07/20 14:49:00 EDT, Cream, [facility], 1 application Topically 2 times a day,Instr:apply to penile rash, 185, cm, 01/07/20 13:55:00 EDT, Franc[facility]... Start Date: 01/07/20 Status: Ordered Cozaar 100 mg oral tablet 1 tablet = 100 mg, By Mouth, Daily in AM, # 30 tablet, 11 Refills, Maintenance, 09/16/19 15:00:00 EDT, Tablet, [facility], 185, cm, 06/24/19 13:00:00 EDT, Height, 127.72, kg, 05/06/19 13:41:00 EST, Dry Weight Start Date: 09/16/19 Status: Ordered diclofenac 1% topical gel = 2 Gm, Topically, 4 times a day, PRN for pain, (british virgin islander) not to exceed: 16 gm/day/joint lower limb8 gm/day/joint of upper limb 32 gm/day, # 100 Gm, 1 Refills, Maintenance, 10/27/19 10:15:00 EDT, Gel, [facility], 185, cm, 06/24/19 13:00:... Start Date: [...] 1 Refills, Maintenance, 12/02/19 10:07:00 EDT, Solution, [facility], duplicate rx. remaining refills sent. original [...] tablet, 11 Refills, Maintenance, 01/07/20 14:40:00 EDT, [facility], 185, cm, 01/07/20 13:55:00 EDT, Height, 127.72, kg, 05/06/19 13:41:00 EST, Dry Weight Start Date: 01/07/20 Status: Ordered Lantus Solostar Pen 100 units/mL subcutaneous solution = 90 units, Subcutaneous Infusion, Daily at bedtime, # 15 mL, 5 Refills, Maintenance, 10/09/19 15:22:00 EDT, [facility], duplicate rx. original rx sent 03/18/19. remaining refills sent, 185,cm, 06/24/19 13:00:00 EDT, Height, 127.72, kg, 04/17... Start Date: 10/09/19 Status: Ordered latanoprost 0.005% ophthalmic solution 1 drops, Eyes, Both, Daily at bedtime, cover gap- Electrical Estimator Dr Broussard, # 2.5 mL, 1 Refills, Maintenance, 02/25/14 10:47:09, Ophth Solution, 1 drops Eyes, Both Daily at bedtime,Instr:cover gap-Electrical Estimator Dr Broussard Start Date: 02/25/14 Status: Ordered lidocaine 4% topical cream 1 application, Topically, 3 times a day, may interchange 3-5% cream or ointment or 2% gel per insurance coverage., # 60 Gm, 5 Refills, Maintenance, 10/28/19 20:11:00 EDT, [facility], 1 application Topically 3 times a day,Instr:may interchang... Start Date: 10/28/19 Status: Ordered Lipitor 40 mg oral tablet 1 tablet = 40 mg, By Mouth, Daily, # 30 tablet, 5 Refills, Maintenance, 11/04/19 15:57:00 EDT, [facility], 185, cm, 06/24/19 13:00:00 EDT, Height, 127.72, kg, 05/06/19 13:41:00 EST, Dry Weight Start Date: 11/04/19 Status: Ordered metFORMIN 500 mg oral tablet 1 tablet = 500 mg, By Mouth, 2 times a day, with meals. Replaces metformin ER, # 60 tablet, 11 Refills, Maintenance, 06/24/19 15:02:00 EDT, Tablet, [facility], 185, cm, 06/24/19 13:00:00 EDT, Height, [...] tablet, 0 Refills, Maintenance, pain, 02/03/20 21:32:00 EDT,[facility], May partial fill., 02/03/20... Start Date: 02/03/20 Status: Ordered methadone 10 mg oral tablet See Instructions, By mouth. 2 tab in AM, 1.5 midday, 2 in evening;for pain. IDC10: G90.5 CRPS. 28 day supply. [facility]., # 154 tablet, 0 Refills, Maintenance, pain, 03/02/20 21:37:00 EST,[facility], May partial fill., 03/02/20... Start [...] Start Date: 05/15/18 Status: Ordered nystatin-triamcinolone topical 512883 u/gm-0.1% ointment 1 applicator, Topically, 3 times a day, to foreskin area FOR 3 DAYS then switch to other antifungal, # 15 Gm, 1 Refills, Maintenance, 01/07/20 14:48:00 EDT, [facility], 1 applicator Topically 3 times a [...] EDT Start Date: 08/20/18 Status: Ordered Pen [place], 31 G x 8 mm BD Ultra [...] 11/29/18 11:27:43 EDT, Route to Pharmacy Electronically, [id number], [facility] Start Date: 11/29/18 Status: Ordered Testosterone Cypionate = 0.75 mg, Intramuscular, Every 14 days, Adm. today to Lot [id number] exp: 02/2020, 0 Refills, Maintenance, 11/14/18 14:06:08 EDT Start Date: 11/14/18 Status: Ordered testosterone enanthate 200 mg/mL intramuscular solution 0.75 mL, Intramuscular, Every 14 days, [facility], # 5 mL, 5 Refills, Maintenance, 01/06/20 11:17:00 EDT, [facility], 185, cm, 06/24/19 13:00:00 EDT, Height, 127.72, kg, 05/06/19 13:41:00 EST, Dry Weight Start Date: 01/06/20 Status: Ordered testosterone enanthate 200 mg/mL intramuscular solution 0.75 mL, Intramuscular, Every 14 days, [facility], # 5 mL, 5 Refills, Maintenance, 01/11/20 21:30:00 EDT, [facility], 185, cm, 01/07/20 13:55:00 EDT, Height, 127.72, kg, 05/06/19 13:41:00 EST, Dry Weight Start Date: 01/11/20 Status: Ordered tiZANidine 4 mg oral tablet 4 mg, 1, tablet, By Mouth, 3 times a day, PRN, # 90 tablet, Refills 11, Tot. Refills 11, Maintenance, as needed for muscle spasm, 02/04/19 21:34:51 EDT, Route to Pharmacy Electronically, [id number], [facility] Start Date: 02/04/19 Status: Ordered Problem [...] ? chr regional pain syndrome 4s/p Modified [place] procedure, repair of conjoined tendon of extensor [...]
--- OUTSIDE RECORDS SUMMARY | 2023-10-11 08:13 | XMS_ITS | Continuity of Care Document ---
Author Organization [facility] Address Unknown Care Team Providers Care Metalizing Machine Operator Name Role Phone Vamshi Man MD Primary Care Physician [facility] 11[facility]20 - 12/28/20 [facility] Allergies, Adverse Reactions, Alerts Substance Reaction Severity [...] REceived at [facility] at [place], [place]; ordered by Dr Michael Oliveira 13Location [...] tablet, 5 Refills, Maintenance, 11/18/20 15:30:00 EDT, [facility], 188, cm, 09/22/20 8:33:00 EDT, Height, 125.2, kg, 06/20/20 14:28:00 EST, Dry Weight Start Date: 11/18/20 Status: Ordered AutoCPAP 9-18 with heated humidification AutoCPAP 9-18 with heated humidification, See Instructions, # 1 each, Refills 0, Tot. Refills 0, Maintenance, use overnight and naps from [facility], 11/04/18 12:28:22 EDT, Compound Start [...] capsule, 3 Refills, Maintenance, 03/30/20 21:36:00 EST, [facility], 185, cm, 02/25/20 10:29:00 EST, Height, 126.81, kg, 02/25/20 10:29:00 EST, Dry Weight Start Date: 03/30/20 Status: Ordered clotrimazole 1% topical cream 1 application, Topically, 2 times a day, apply to penile rash, # 30 Gm, 2 Refills, Maintenance, 01/07/20 14:49:00 EDT, Cream, [facility], 1 application Topically 2 times a day,Instr:apply to penile rash, 185, cm, 01/07/20 13:55:00 EDT, Franc[facility]ka... Start Date: 01/07/20 Status: Ordered Cozaar 100 mg oral tablet 1 tablet = 100 mg, By Mouth, Daily in AM, # 30 tablet, 11 Refills, Maintenance, 09/22/20 9:41:00 EDT, Tablet, [facility], duplicate rx. original sent 09/16/19. [...] 06/25/20 15:39:00 EST, Route to Pharmacy Electronically, [facility], Partial f... Start Date: 06/25/20 Status: Ordered diclofenac 1% topical gel = 2 Gm, Topically, 4 times a day, PRN for pain, (swedish) not to exceed: 16 gm/day/joint lower limb8 gm/day/joint of upper limb 32 gm/day may interchange for cream, # 100 Gm, 5 Refills, Maintenance,07/08/20 15:35:00 EDT, Gel, [facility] Start Date: 07/08/20 Status: Ordered [...] 11 Refills, Maintenance, 02/15/20 21:05:00 EST, Solution, [facility], 185, cm, 01/07/20 13:55:00 EDT, [...] 10:37:00 EDT, 12/22/20 10:36:00 EDT, Ophth Solution, [facility], Partial fill upon patient request if the prescriptionis for a schedule II opioid drug., 1 drops Eyes, Anival... Start Date: 12/22/20 Stop Date: 01/21/21 Status: Ordered Lantus Solostar Pen 100 units/mL subcutaneous solution = 90 units, Subcutaneous Infusion, Daily at bedtime, # 30 mL, 3 Refills, Maintenance, 07/08/20 15:42:00 EDT, [facility], Duplicate rx-Original rx sent 06/22/20. Resent., 188, cm, 07/08/20 13:42:00 EDT, Height, 125.2, kg, 06/20/20 14:28:00 EST,... Start Date: 07/08/20 Status: Ordered latanoprost 0.005% ophthalmic solution 0 Refills, Maintenance, 05/11/20 16:57:00 EST Start Date: 05/11/20 Status: Ordered lidocaine 5% topical ointment See Instructions, 1 APPLICATION TOPICALLY 3 TIMES A DAY, # 70.88 Gm, 4 Refills, Acute, [facility], 14, 1 APPLICATION TOPICALLY 3 TIMES A DAY, 188, cm, 09/22/20 8:33:00 EDT, Height, 125.2, kg, 06/20/20 14:28:00 EST, Dry Weight Start Date: 11/08/20 Status: Ordered Lipitor 40 mg oral tablet 1 tablet = 40 mg, By Mouth, Daily, # 90 tablet, 3 Refills, Maintenance, 03/30/20 21:30:00 EST, [facility], duplicate rx. original sent 11/04/19. remaining [...] 3 Refills, Maintenance, 07/08/20 15:40:00 EDT, Tablet, [facility], Duplicate rx-Original rx sent06/22/20. Resent., 188, [...] pain. IDC10: G90.5 CRPS. 28 day supply. [facility]., # 154 tablet, 0 Refills, Maintenance, [...] Start Date: 05/15/18 Status: Ordered nystatin-triamcinolone topical 295285 u/gm-0.1% ointment 1 applicator, Topically, 3 times a day, to foreskin area FOR 3 DAYS then switch to other antifungal, # 15 Gm, 1 Refills, Maintenance, 07/08/20 15:34:00 EDT, [facility], 1 applicator Topically 3 times a [...] EDT Start Date: 08/20/18 Status: Ordered Pen [place], 31 G x 8 mm BD Ultra [...] 03/30/20 21:31:00 EST, Route to Pharmacy Electronically, [facility], 185, cm, 11/11/20 10:29:00 EST, Height, [...] solution 0.75 mL, Intramuscular, Every 14 days, [facility], # 5 mL, 5 Refills, Maintenance, 08/29/20 21:33:00 EDT, [facility], 188, cm, 07/08/20 13:42:00 EDT, Height, 125.2, kg, 06/20/20 14:28:00 EST, Dry Weight Start Date: 08/29/20 Status: Ordered tiZANidine 4 mg oral tablet 4 mg, 1, tablet, By Mouth, 3 times a day, PRN, # 90 tablet, Refills 11, Tot. Refills 11, Maintenance, as needed for muscle spasm, 07/08/20 15:40:00 EDT, Route to Pharmacy Electronically, [facility], 188, cm, 07/08/20 13:42:00 EDT, [...] ? chr regional pain syndrome 4s/p Modified [place] procedure, repair of conjoined tendon of extensor [...]
--- OUTSIDE RECORDS SUMMARY | 2023-10-11 08:13 | XMS_ITS | Continuity of Care Document ---
Author Organization [facility] Address [address] [place] [id number]- Care Team Providers Care Valve Repairer Reclamation Name Role Phone Vamshi Man MD Primary Care Physician [facility] Date[facility]s): 07/30/23 - 08/29/23 [facility]/[address] [address]- Allergies, Adverse Reactions, Alerts Substance Reaction Severity Status Other Food Allergy fresh peaches - itch y mouth, throat and lips swell Active penicillin 1 rash Resolved penicillins Active Latex RASH Active 1rash per mother as child. Did take a penicillin for treatment of H pylori per pt w/o problem. Immunizations Given and Recorded Vaccine Date Status Refusal Reason SARS-CoV-2(COVID-19)mRNA-LNP vac([id number]) 01/30/23 Given influenza virus vaccine, inactivated 01/05/23 [...] influenza virus vaccine, inactivated 03/19/06 Give n [id number] 12y+ bivalent booster vax 02/16/22 Given pneumococcal 20-valent conjugate vaccine 02/16/22 Given Influenza Virus Vaccine (oldterm) 9 01/27/22 Recor ded Influenza Virus Vaccine (oldterm) 01/26/21 Recorde d SARS-CoV-2 mRNA ([id number]) vax 11/11/21 Given SARS-CoV-2 (COVID-19) mRNA BNT-162b2 [...] Elissa Bertrand 13Result Comment: [11/27/2017] REceived at [facility] at [place], [place]; ordered by Dr Michael Oliveira 14Location [...] 11 Refills, Maintenance, 02/08/23 10:21:00 EDT, Powder, [facility], replaces Flovent due to insurance coverage, 188, cm, 01/30/23 13:26:00 EDT, Height, 126, kg, 01/30/23 13:26:00 EDT,... Start Date: 02/08/23 Status: Ordered Aspirin Low Dose 81 mg oral delayed release tablet 1 tablet, By Mouth, Daily, # 90 tablet, 4 Refills, Maintenance, 03/01/23 17:49:00 EST, [facility], 188, cm, 01/30/23 13:26:00 EDT, Height, 126, kg, 01/30/23 13:26:00 EDT, Dry Weight Start Date: 03/01/23 Status: Ordered atorvastatin 40 mg oral tablet 1 tablet, By Mouth, Daily, # 90 tablet, 1 Refills, Maintenance, 07/25/23 20:12:00 EDT, [facility], 188, cm, 07/05/23 11:09:00 EDT, Height, [...] 2 Refills, Maintenance, 04/27/22 23:43:00 EST, Cream, [facility], 1 application Topically 2 times a day,Instr:apply to penile rash, 188, cm, 04/27/22 13:44:00 EST, Heigh... Start Date: 04/27/22 Status: Ordered diazepam 10 mg oral tablet See Instructions, PRN, 1 tablet By Mouth 1 hr before MRI, # 1 tablet, Refills 2, Tot. Refills 2, Maintenance, as needed for anxiety, 01/30/23 15:02:00 EDT, Instructions Replace Required Details, Route to Pharmacy Electronically, [facility],... Start Date: 01/30/23 Status: Ordered diclofenac 1% topical gel = 2 Gm, Topically, 4 times a day, PRN for pain, (chinese) not to exceed: 16 gm/day/joint lower limb8 gm/day/joint of upper limb 32 gm/day may interchange for cream, # 100 Gm, 11 Refills, Maintenance, 04/15/22 13:02:00 EST, Gel, [facility]... Start Date: 04/15/22 Status: Ordered docusate [...] 16 Gm, 11 Refills, Maintenance, 07/09/23 11:37:00EDT, Smilax, [facility], Partial fill upon patient request if the prescription is for a schedule II opioid drug., 2 sprays Nares, Both 2 times... Start Date: 07/09/23 Status: Ordered Freestyle Tatyana Perris Freestyle Tatyana Perris, See Instructions, # 1 each, Refills 0, [...] days., 08/11/23 11:15:00 EDT, Recently sent to [facility]... Start Date: 08/11/23 Status: [...] 11 Refills, Maintenance, 11/28/21 21:27:00 EDT, Solution, [facility], 188, cm, 11/22/21 16:37:00 EDT, Height, [...] Gm, 5 Refills, Maintenance, 12/22/21 7:28:00 EDT, [facility], same Rx was sent 11/11 w/ [...] 3 Refills, Maintenance, 05/07/23 16:31:00 EST, Tablet, [facility], 188, cm, 04/26/23 13:06:00 EST, Height, 126.09, kg, 04/26/23 13:06:00 EST, Dry Weight Start Date: 05/07/23 Status: Ordered metFORMIN 750 mg oral tablet, extended release 1 tablet = 750 mg, By Mouth, Daily, [replaces the metformin 500mg bid], # 30 tablet, 5 Refills, Maintenance, 05/15/23 8:10:00 EST, ER Tablet, [facility], Partial fill upon patient request if the prescription is for a schedule II opioid drug.... Start Date: 05/15/23 Status: Ordered methadone 10 mg oral tablet See Instructions, By mouth. 2 tab in AM, 1.5 midday, 2 in evening;for pain. IDC10: G90.5 CRPS. 28 day supply. [facility]., # 154 tablet, 0 Refills, Maintenance, pain, 10/09/23 21:08:00 EDT,[facility], May partial fill., 0... Start Date: 10/09/23 Status: Ordered methadone 10 mg oral tablet See Instructions, By mouth. 2 tab in AM, 1.5 midday, 2 in evening;for pain. IDC10: G90.5 CRPS. 28 day supply. [facility]., # 154 tablet, 0 Refills, Maintenance, pain, 09/11/23 21:08:00 EDT,[facility], May partial fill., 0... Start Date: 09/11/23 Status: Ordered methadone 10 mg oral tablet See Instructions, By mouth. 2 tab in AM, 1.5 midday, 2 in evening;for pain. IDC10: G90.5 CRPS. 28 day supply. [facility]., # 154 tablet, 0 Refills, Maintenance, pain, 08/14/23 21:08:00 EDT,[facility], May partial fill., 0... Start Date: 08/14/23 Status: Ordered methadone 10 mg oral tablet See Instructions, By mouth. 2 tab in AM, 1.5 midday, 2 in evening;for pain. IDC10: G90.5 CRPS. 28 day supply. [facility]., # 154 tablet, 0 Refills, Maintenance, pain, 04/24/23 22:44:00 EST,[facility], May partial fill., 188, cm,... Start Date: 04/24/23 Status: Ordered Mounjaro 10 mg/0.5 mL subcutaneous solution = 10 mg, Subcutaneous Infusion, Every 7 days, please interchange with other Rx for 7.5 mg if unavailable., # 4 each, 11 Refills, Maintenance, 07/26/23 14:10:00 EDT, [facility], Partial fillupon patient request if the prescription is for a s... Start Date: 07/26/23 Status: Ordered Mounjaro 7.5 mg/0.5 mL subcutaneous solution = 7.5 mg, Subcutaneous Injection, Every week, rotate injection sites, # 4 each, 5 Refills, Maintenance, 07/07/23 17:04:00 EDT, Solution, [facility], should still have a couple months [...] EDT Start Date: 02/16/22 Status: Ordered Pen [place], 31 G x 8 mm BD Ultra [...] 02/18/23 19:20:00 EST, Route to Pharmacy Electronically, [facility], 188, cm, 01/30/23 13:26:00 EDT, Height, [...] tablet, 5 Refills, Maintenance, 07/09/23 11:09:00 EDT, [facility], 30, 1 tablet By Mouth Daily, 188, cm, 07/05/23 11:09:00 EDT, Height, 126.09, kg, 04/26/23 13:06:00 EST, Dry Weight Start Date: 07/09/23 Status: Ordered tamsulosin 0.4 mg oral capsule 0.8 mg, 2, capsule, By Mouth, Daily, dose increase, # 180 capsule, Refills 11, Tot. Refills 11, Maintenance, 07/26/23 14:15:00 EDT, Route to Pharmacy Electronically, [facility], 188, cm, 07/26/23 13:30:00 EDT, Height, 121.81, kg, 07/26/23 13... Start Date: 07/26/23 Status: Ordered Test Strips See Instructions, # 100 each, Refills 5, Tot. Refills 5, Maintenance, Precision Ganga strips (for Freestyle Tatyana glucometer). Type 2 diabetes mellitus on insulin (E11, Z79.4). Test 2-4x/day if symptoms, or sensor concerns., 02/08/23 10:36:00 EDT, [place]... Start Date: 02/08/23 Status: Ordered Test Strips [...] Intramuscular, Every 14 days, IM or subcutaneous. [facility]., # 2 mL, 5 Refills, Maintenance, 08/11/23 11:20:00 EDT, [facility], Last sent to [facility]. Sending now to [facility] due to pt request msg [email or web address]... Start Date: 08/11/23 Status: Ordered tiZANidine 4 mg oral tablet 4 mg, 1, tablet, By Mouth, 3 times a day, PRN, # 90 tablet, Refills 11, Tot. Refills 11, Maintenance, as needed for muscle spasm, 08/18/22 8:03:00 EDT, Route to Pharmacy Electronically, [facility], 188, cm, 07/18/22 14:01:00 EDT, Height, 122... Start Date: 08/18/22 Status: Ordered Toujeo Max SoloStar 300 units/mL subcutaneous solution = 70 units, Subcutaneous Injection, Daily, decrease frin 90u, # 12 mL, 11 Refills, Maintenance, 07/26/23 14:19:00 EDT, Solution, [facility], replaces Lantus due to insurance coverage, 188, cm, 07/26/23 13:30:00 EDT, Height, 121.81, kg, 07/25... Start Date: 07/26/23 Status: Ordered Tylenol Extra Strength 500 mg oral tablet 2 tablet = 1,000 mg, By Mouth, 3 times a day, # 30 tablet, 11 Refills, Maintenance, 03/24/21 21:00:00 EST, [facility], 188, cm, 03/22/21 14:17:00 EST, Height, 125.2, kg, 06/20/20 14:28:00 EST, Dry Weight Start Date: 03/24/21 Status: Ordered Vitamin D3 1000 intl units oral tablet 1 tablet, By Mouth, Daily, # 90 tablet, 4 Refills, Maintenance, 04/01/23 22:28:00 EST, [facility], 188, cm, 01/30/23 13:26:00 EDT, Height, [...] Care Member Role: PCP Address: Address: [address] [place] [address]- Name: Luz Potter Position: [facility] Outreach Member Role: Lifetime Consulting Physician Name: Miki Rodriguez MD Position: [facility] Renal MD Member Role: Lifetime Consulting Physician Address: Address: [address] [facility], [place] [address]- Care Team Related Persons Name: BRANDON MTZ Address: home [address] [place] [address] Name: BRANDON BARKER Address: home [address] [place] [address] Name: ROSALINDA BERTRAND
--- OUTSIDE RECORDS SUMMARY | 2023-10-11 08:13 | XMS_ITS | Continuity of Care Document ---
Author Organization [facility] Address Unknown Care Team Providers Care Data Warehousing Manager Name Role Phone Vamshi Man MD Primary Care Physician [phone] [facility] 02[facility]01[facility]21 - 03/03/21 [facility] Allergies, Adverse Reactions, Alerts [...] at [facility] at [place], [place]; ordered by Dr Michael Oliveira 13Location [...] tablet, 5 Refills, Maintenance, 11/18/20 15:30:00 EDT, [facility], 188, cm, 09/22/20 8:33:00 EDT, Height, 125.2, kg, 06/20/20 14:28:00 EST, Dry Weight Start Date: 11/18/20 Status: Ordered AutoCPAP 9-18 with heated humidification AutoCPAP 9-18 with heated humidification, See Instructions, # 1 each, Refills 0, Tot. Refills 0, Maintenance, use overnight and naps from [facility], 11/04/18 12:28:22 EDT, Compound Start Date: 11/04/18 [...] capsule, 3 Refills, Maintenance, 03/30/20 21:36:00 EST, [facility], 185, cm, 02/25/20 10:29:00 EST, Height, 126.81, kg, 02/25/20 10:29:00 EST, Dry Weight Start Date: 03/30/20 Status: Ordered clotrimazole 1% topical cream 1 application, Topically, 2 times a day, apply to penile rash, # 30 Gm, 2 Refills, Maintenance, 01/07/20 14:49:00 EDT, Cream, [facility], 1 application Topically 2 times a day,Instr:apply to penile rash, 185, cm, 01/07/20 13:55:00 EDT, [facility]... Start Date: 01/07/20 Status: Ordered Cozaar 100 mg oral tablet 1 tablet = 100 mg, By Mouth, Daily in AM, # 30 tablet, 11 Refills, Maintenance, 09/22/20 9:41:00 EDT, Tablet, [facility], duplicate rx. original sent 09/16/19. remaining [...] 06/25/20 15:39:00 EST, Route to Pharmacy Electronically, [facility], Partial f... Start Date: 06/25/20 Status: Ordered diclofenac 1% topical gel = 2 Gm, Topically, 4 times a day, PRN for pain, ([place] citizen) not to exceed: 16 gm/day/joint lower limb8 gm/day/joint of upper limb 32 gm/day may interchange for cream, # 100 Gm, 5 Refills, Maintenance,07/08/20 15:35:00 EDT, Gel, [facility] Start Date: 07/08/20 Status: Ordered docusate [...] 11 Refills, Maintenance, 03/03/21 21:23:00 EST, Solution, [facility], 188, cm, 02/24/21 16:26:00 EST, Height, [...] mL, 11 Refills, Maintenance, 01/14/21 18:16:00 EDT, [facility], 188, cm, 12/22/20 9:45:00 EDT, Height, 125.2, kg, 06/20/20 14:28:00EST, Dry Weight Start Date: 01/14/21 Status: Ordered latanoprost 0.005% ophthalmic solution 0 Refills, Maintenance, 05/11/20 16:57:00 EST Start Date: 05/11/20 Status: Ordered lidocaine 5% topical ointment See Instructions, 1 APPLICATION TOPICALLY 3 TIMES A DAY, # 70.88 Gm, 4 Refills, Acute, [facility], 14, 1 APPLICATION TOPICALLY 3 TIMES A DAY, 188, cm, 09/22/20 8:33:00 EDT, Height, 125.2, kg, 06/20/20 14:28:00 EST, Dry Weight Start Date: 11/08/20 Status: Ordered Lipitor 40 mg oral tablet 1 tablet = 40 mg, By Mouth, Daily, # 90 tablet, 3 Refills, Maintenance, 03/30/20 21:30:00 EST, [facility], duplicate rx. original sent 11/04/19. remaining refill sent., 185, cm, 02/25/20 10:29:00 EST, Height, 126.81, kg, 02/25/20 10:29:00 EST... Start Date: 03/30/20 Status: Ordered LORazepam 1 mg oral tablet See Instructions, PRN for anxiety, 2 tablets By Mouth 1 hours prior to MRI, # 2 tablet, 0 Refills, Acute 04/15/21 10:58:00 EST, 02/23/21 9:45:00 EST, Tablet, [facility], 188, cm, 02/23/21 9:53:00 EST, Height, [...] pain. IDC10: G90.5 CRPS. 28 day supply. [facility]., # 154 tablet, 0 Refills, Maintenance, pain, 02/01/21 10:39:00 EDT,[facility], May partial fill., 02/01/21... Start Date: 02/01/21 Status: Ordered methadone 10 mg oral tablet See Instructions, By mouth. 2 tab in AM, 1.5 midday, 2 in evening;for pain. IDC10: G90.5 CRPS. 28 day supply. [facility]., # 154 tablet, 0 Refills, Maintenance, pain, 03/01/21 6:30:00 EST, [facility], May partial fill., 188, cm,... Start [...] Start Date: 05/15/18 Status: Ordered nystatin-triamcinolone topical 378747 u/gm-0.1% ointment 1 applicator, Topically, 3 times a day, to foreskin area FOR 3 DAYS then switch to other antifungal, # 15 Gm, 1 Refills, Maintenance, 07/08/20 15:34:00 EDT, [facility], 1 applicator Topically 3 times a [...] EDT Start Date: 08/20/18 Status: Ordered Pen [place], 31 G x 8 mm BD Ultra [...] 03/30/20 21:31:00 EST, Route to Pharmacy Electronically, [facility], 185, cm, 02/25/20 10:29:00 EST, Height, [...] solution 0.75 mL, Intramuscular, Every 14 days, [facility], # 5 mL, 5 Refills, Maintenance, 08/29/20 21:33:00 EDT, [facility], 188, cm, 07/08/20 13:42:00 EDT, Height, 125.2, kg, 06/20/20 14:28:00 EST, Dry Weight Start Date: 08/29/20 Status: Ordered tiZANidine 4 mg oral tablet 4 mg, 1, tablet, By Mouth, 3 times a day, PRN, # 90 tablet, Refills 11, Tot. Refills 11, Maintenance, as needed for muscle spasm, 07/08/20 15:40:00 EDT, Route to Pharmacy Electronically, [facility], 188, cm, 07/08/20 13:42:00 EDT, Height, 12... Start Date: 07/08/20 Status: Ordered traZODone 100 mg oral tablet TAKE ONE TO TWO TABLETS BY MOUTH AT BEDTIME NEEDED S. McAnulty Start Date: 05/11/20 Status: Ordered Tylenol Extra Strength 500 mg oral tablet 2 tablet = 1,000 mg, By Mouth, 3 times a day, # 30 tablet, 0 Refills, Maintenance, 02/24/21 16:47:00 EST, [facility], Partial fill upon patient request if [...] ? chr regional pain syndrome 4s/p Modified [place] procedure, repair of conjoined tendon of extensor [...]
--- OUTSIDE RECORDS SUMMARY | 2023-10-11 08:14 | XMS_ITS | Continuity of Care Document ---
Author Organization [facility] Address [address] [place] [address]- Care Team Providers Care Enterprise Project Manager Name Role Phone Vamshi Man MD Primary Care Physician [phone] [place] [facility] [place]18[place]21 - 12/21/21 [facility]/[place] [address]- Attending Physician: Vicente Blair MD Admitting Physician: Vicente Blair MD Allergies, Adverse Reactions, Alerts Substance Reaction Severity Status penicillin 1 rash Resolved Latex RASH Active Other Food Allergy fresh peaches - itch y mouth, throat and lips swell Active 1rash per mother as child. Did take a penicillin for treatment of H pylori per pt w/o problem. Immunizations Given and Recorded Vaccine Date Status Refusal Reason SARS-CoV-2 mRNA ([id number]) vax 11/11/21 Given SARS-CoV-2 (COVID-19) mRNA BNT-162b2 [...] Bertrand 12Result Comment: [11/27/2017] REceived at [facility] [place], [place]; ordered by Dr Michael Oliveira 13Location [...] 7x/wk total. Dx: E11, 11/18/20 15:30:00 EDT, [facility], 188, cm, 09/22/20 8:33:00 EDT, [...] tablet, 5 Refills, Maintenance, 11/20/21 13:03:00 EDT, [facility], 188, cm, 11/11/21 12:46:00 EDT, Height, 125.2, kg, 06/20/20 14:28:00 EST, Dry Weight Start Date: 11/20/21 Status: Ordered atorvastatin 40 mg oral tablet 1 tablet, By Mouth, Daily, # 90 tablet, 1 Refills, [facility], 188, cm, 09/15/21 12:49:00EDT, Height, 125.2, [...] 2 Refills, Maintenance, 09/15/21 14:49:00 EDT, Cream, [facility], 1 application Topically 2 times a day,Instr:apply to penile rash, 188, cm, 09/15/21 12:49:00 EDT, Heigh... Start Date: 09/15/21 Status: Ordered cyclobenzaprine 10 mg oral tablet 10 mg, 1, tablet, By Mouth, 3 times a day, PRN, do not drive after taking this medication, # 30 tablet, Refills 0, Tot. Refills 0, Maintenance, Spasm for spasm, 06/25/20 15:39:00 EST, Route to Pharmacy Electronically, [facility], Partial f... Start Date: 06/25/20 Status: Ordered diclofenac 1% topical gel = 2 Gm, Topically, 4 times a day, PRN for pain, (jordanian) not to exceed: 16 gm/day/joint lower limb8 gm/day/joint of upper limb 32 gm/day may interchange for cream, # 100 Gm, 5 Refills, Maintenance,07/08/20 15:35:00 EDT, Gel, [facility] Start Date: 07/08/20 Status: Ordered docusate [...] May cause drowsiness, do notdrive after taking British, # 28 tablet, 0 Refills, Maintenance, 12/09/21 13:27:00 EDT, [facility], 188, cm, 11/22/21 16:37:00 EDT, Francheska... Start [...] 11 Refills, Maintenance, 11/28/21 21:27:00 EDT, Solution, [facility], 188, cm, 11/22/21 16:37:00 EDT, Height, 122.63, kg, 11/22/21 16:37:00 EDT, Dry We... Start Date: 11/28/21 Status: Ordered Jardiance 10 mg oral tablet 1 tablet, By Mouth, Daily in AM, # 30 tablet, 11 Refills, Maintenance, 07/25/21 20:18:00 EDT, [facility], 188, cm, 06/28/21 16:20:00 EDT, Height, [...] mL, 11 Refills, Maintenance, 01/14/21 18:16:00 EDT, [facility], 188, cm, 12/22/20 9:45:00 EDT, Height, 125.2, kg, 06/20/20 14:28:00EST, Dry Weight Start Date: 01/14/21 Status: Ordered latanoprost 0.005% ophthalmic solution 0 Refills, Maintenance, 05/11/20 16:57:00 EST Start Date: 05/11/20 Status: Ordered lidocaine 5% topical ointment See Instructions, PRN Pain , Moderate, 1 APPLICATION TOPICALLY 3 TIMES A DAY, # 50 Gm, 5 Refills, Maintenance, 11/11/21 13:27:00 EDT, [facility], 1 APPLICATION TOPICALLY 3 TIMES A DAY,PRN:Pain , Moderate, 188, cm, 11/11/21 12:46:00 EDT, [place]... Start Date: 11/11/21 Status: Ordered LORazepam 1 mg oral tablet See Instructions, PRN for anxiety, 2 tablets By Mouth 1 hours prior to MRI, # 2 tablet, 1 Refills, Maintenance, 05/25/21 10:06:00 EST, Tablet, [facility], 188, cm, 05/25/21 9:26:00 EST, Height, 125.2, kg, 06/20/20 14:28:00 EST, Dry Weight Start Date: 05/25/21 Status: Ordered losartan 100 mg oral tablet 1 tablet, By Mouth, Daily in AM, # 30 tablet, 5 Refills, [facility], 188, cm, 09/15/21 12:49:00 EDT, Height, 125.2, kg, 06/20/20 14:28:00 EST, Dry Weight Start Date: 10/04/21 Status: Ordered LUBRIC TEARS CALE 0.4-0.3% Milliliters INSTILL 1 DROP FOUR TIMES DAILY EACH EYE Start Date: 05/11/20 Status: Ordered meloxicam 15 mg oral tablet 1 tablet = 15 mg, By Mouth, Daily, Take with food PRN back pain British, # 14 tablet, 0 Refills, Maintenance, 11/25/21 13:26:00 EDT, [facility], Partial fill upon patient request if the prescription is for a schedule II opioid drug., 188,... Start Date: 11/25/21 Stop Date: 12/09/21 Status: Ordered metFORMIN 750 mg oral tablet, extended release 1 tablet = 750 mg, By Mouth, Daily, [replaces the metformin 500mg bid], # 30 tablet, 11 Refills, Maintenance, 11/22/21 17:53:00 EDT, ER Tablet, [facility], Partial fill upon patient requestif the prescription is for a schedule II opioid alessandra... Start Date: 11/22/21 Status: Ordered methadone 10 mg oral tablet See Instructions, By mouth. 2 tab in AM, 1.5 midday, 2 in evening;for pain. IDC10: G90.5 CRPS. [address] [facility]., # 154 tablet, 0 Refills, Maintenance, pain, 11/08/21 7:19:00 EDT, [facility], May partial fill., 188, cm,... Start Date: 11/08/21 Status: Ordered methadone 10 mg oral tablet See Instructions, By mouth. 2 tab in AM, 1.5 midday, 2 in evening;for pain. IDC10: G90.5 CRPS. [address] [facility]., # 154 tablet, 0 Refills, Maintenance, pain, 12/06/21 7:20:00 EDT, [facility], May partial fill., 12/06/21,... Start Date: 12/06/21 Status: Ordered methadone 10 mg oral tablet See Instructions, By mouth. 2 tab in AM, 1.5 midday, 2 in evening;for pain. IDC10: G90.5 CRPS. [address] [facility]., # 154 tablet, 0 Refills, Maintenance, pain, 01/03/22 7:12:00 EDT, [facility], May partial fill., 01/03/22,... Start Date: 01/03/22 Status: Ordered Metoclopramide = 10 mg, By Mouth, 3 times a day before meals and bedtime, 0 Refills, Maintenance, 08/20/18 13:55:26 EDT Start Date: 08/20/18 Status: Ordered multivitamin Multiple Vitamins oral tablet 1 tablet, By Mouth, Daily, B complex multivitamin, # 30 tablet, 11 Refills, Maintenance, 11/22/21 17:58:00 EDT, [facility], Partial fill upon patient request if the prescription is for a schedule II opioid drug., 1 tablet By Mouth Daily,Inst... Start Date: 11/22/21 Status: Ordered Narcan 4 mg/0.1 mL nasal spray = 4 mg, Nares, Both, Once, may repeat every 2 to 3 minutes until patient responds, # 2 each, 0 Refills, Soft Stop, 05/25/21 10:17:00 EST, [facility], 188, cm, 05/25/21 9:26:00 EST, Height, 125.2, kg, 06/20/20 14:28:00 EST, Dry Weight Start Date: 05/25/21 Status: Ordered nystatin-triamcinolone topical 090555 u/gm-0.1% ointment 1 applicator, Topically, 3 times a day, to foreskin area FOR 3 DAYS then switch to other antifungal, # 15 Gm, 1 Refills, Maintenance, 05/25/21 10:20:00 EST, [facility], 1 applicator Topically 3 times a [...] Sandoval Start Date: 08/20/18 Status: Ordered Pen [place], 31 G x 8 mm BD Ultra Fine III See Instructions, # 150 each, Refills 11, Tot. Refills 11, Maintenance, use 2- 5x/day Type 2 Diabetes Mellitus on Lantus and Humalog insulin with pen, 02/27/22 13:16:00 EST, Compound, 188, cm, 11/22/21 16:37:00 EDT, Height, 122.63, kg, 11/22/21 16:37:0... Start Date: 02/27/22 Stop Date: 02/22/23 Status: Ordered Pen [place], 31 G x 8 mm BD Ultra [...] each, 11 Refills, Maintenance, 09/15/21 14:29:00 EDT, [facility], Partial fill upon patient request if the prescription is for a schedule II opioid drug., 188, cm, 09/15/21 12:4... Start Date: 09/15/21 Status: Ordered Singulair 10 mg oral tablet 10 mg, 1, tablet, By Mouth, Daily, # 90 tablet, Refills 3, Tot. Refills 3, Maintenance, 03/30/20 21:31:00 EST, Route to Pharmacy Electronically, [facility], 185, cm, 02/25/20 10:29:00 EST, Height, [...] Intramuscular, Every 14 days, IM or subcutaneous. [facility]., # 5 mL, 5 Refills, Maintenance, 11/22/21 17:58:00 EDT, [facility], 188, cm, 11/22/21 16:37:00 EDT, Height, 122.63, kg, 11/22/21 16:37:00 EDT, Dry Weight Start Date: 11/22/21 Status: Ordered tiZANidine 4 mg oral tablet 4 mg, 1, tablet, By Mouth, 3 times a day, PRN, # 90 tablet, Refills 11, Tot. Refills 11, Maintenance, as needed for muscle spasm, 08/12/21 11:09:00 EDT, Route to Pharmacy Electronically, [facility], 188, cm, 07/27/21 8:34:00 EDT, Height, 125... Start Date: 08/12/21 Status: Ordered traZODone 100 mg oral tablet TAKE ONE TO TWO TABLETS BY MOUTH AT BEDTIME NEEDED Damaris Morales Start Date: 05/11/20 Status: Ordered Tylenol Extra Strength 500 mg oral tablet 2 tablet = 1,000 mg, By Mouth, 3 times a day, # 30 tablet, 11 Refills, Maintenance, 03/24/21 21:00:00 EST, [facility], 188, cm, 03/22/21 14:17:00 EST, Height, 125.2, kg, 06/20/20 14:28:00 EST, Dry Weight Start Date: 03/24/21 Status: Ordered Vitamin D3 1000 intl units oral tablet 1 tablet, By Mouth, Daily, for 30 days, # 30 tablet, 11 Refills, Physician Stop 10/30/22 17:07:00 EDT, 11/04/21 17:07:00 EDT, [facility], 188, cm, 09/15/21 12:49:00 EDT, Height, [...] Smoke: No entered on: 11/11/21 Sex Male Care Team Personnel Name: Vamshi Man MD Address: [address] [place] [address]-
--- OUTSIDE RECORDS SUMMARY | 2023-10-11 08:14 | XMS_ITS | Continuity of Care Document ---
Author Organization [facility] Address [address] [place] [id number]- Care Team Providers Care Delinquency Prevention Officer Name Role Phone Vamshi Man MD Primary Care Physician [place] [facility] [place]/23 [facility]/[address] [address]- Allergies, Adverse Reactions, Alerts Substance Reaction Severity Status penicillins Active Other Food Allergy fresh peaches - itch y mouth, throat and lips swell Active Latex RASH Active penicillin 1 rash Resolved 1rash per mother as child. Did take a penicillin for treatment of H pylori per pt w/o problem. Immunizations Given and Recorded Vaccine Date Status Refusal Reason SARS-CoV-2(COVID-19)mRNA-LNP vac([id number]) 01/30/23 Given influenza virus vaccine, inactivated 01/05/23 [...] influenza virus vaccine, inactivated 03/19/06 Give n [id number] 12y+ bivalent booster vax 02/16/22 Given pneumococcal 20-valent conjugate vaccine 02/16/22 Given Influenza Virus Vaccine (oldterm) 9 01/27/22 Recor ded Influenza Virus Vaccine (oldterm) 01/26/21 Recorde d SARS-CoV-2 mRNA ([id number]) vax 11/11/21 Given SARS-CoV-2 (COVID-19) mRNA BNT-162b2 [...] Elissa Bertrand 13Result Comment: [11/27/2017] REceived at [facility] at [place], [place]; ordered by Dr Michael Oliveira 14Location [...] 11 Refills, Maintenance, 02/08/23 10:21:00 EDT, Powder, [facility], replaces Flovent due to insurance coverage, 188, cm, 01/30/23 13:26:00 EDT, Height, 126, kg, 01/30/23 13:26:00 EDT,... Start Date: 02/08/23 Status: Ordered Aspirin Low Dose 81 mg oral delayed release tablet 1 tablet, By Mouth, Daily, # 90 tablet, 4 Refills, Maintenance, 03/01/23 17:49:00 EST, [facility], 188, cm, 01/30/23 13:26:00 EDT, Height, 126, kg, 01/30/23 13:26:00 EDT, Dry Weight Start Date: 03/01/23 Status: Ordered atorvastatin 40 mg oral tablet 1 tablet, By Mouth, Daily, # 90 tablet, 1 Refills, Maintenance, 07/25/23 20:12:00 EDT, [facility], 188, cm, 07/05/23 11:09:00 EDT, Height, 126.09, kg, 04/26/23 13:06:00 EST, Dry Weight Start Date: 07/25/23 Status: Ordered AutoCPAP 9-18 with heated humidification AutoCPAP 9-18 with heated humidification, See Instructions, # 1 each, Refills 0, Tot. Refills 0, Maintenance, use overnight and naps from [facility], 11/04/18 12:28:22 EDT, Compound Start [...] Refills, Maintenance, 04/27/22 23:43:00 EST, Cream, [facility], 1 application Topically 2 times a day,Instr:apply to penile rash, 188, cm, 04/27/22 13:44:00 EST, Heigh... Start Date: 04/27/22 Status: Ordered diazepam 10 mg oral tablet See Instructions, PRN, 1 tablet By Mouth 1 hr before MRI, # 1 tablet, Refills 2, Tot. Refills 2, Maintenance, as needed for anxiety, 01/30/23 15:02:00 EDT, Instructions Replace Required Details, Route to Pharmacy Electronically, [facility],... Start Date: 01/30/23 Status: Ordered diclofenac 1% topical gel = 2 Gm, Topically, 4 times a day, PRN for pain, (icelandic) not to exceed: 16 gm/day/joint lower limb8 gm/day/joint of upper limb 32 gm/day may interchange for cream, # 100 Gm, 11 Refills, Maintenance, 04/15/22 13:02:00 EST, Gel, [facility]... Start Date: 04/15/22 Status: Ordered docusate [...] 16 Gm, 11 Refills, Maintenance, 07/09/23 11:37:00EDT, [place], [facility], Partial fill upon patient request if the prescription is for a schedule II opioid drug., 2 sprays Nares, Both 2 times... Start Date: 07/09/23 Status: Ordered Freestyle Tatyana Taswell Freestyle Tatyana Taswell, See Instructions, # 1 each, Refills 0, [...] 11 Refills, Maintenance, 11/28/21 21:27:00 EDT, Solution, [facility], 188, cm, 11/22/21 16:37:00 EDT, Height, 122.63, [...] 5 Refills, Maintenance, 12/22/21 7:28:00 EDT, [facility], same Rx was sent 11/11 w/ [...] 0 Refills, Maintenance, 01/12/22 7:27:00 EDT, Tablet, [facility], 188, cm, 12/26/21 14:06:00 EDT, Height, 122.63, kg, 11/22/21 16:37:00 EDT, Dry Weight Start Date: 01/12/22 Status: Ordered LUBRIC TEARS CALE 0.4-0.3% Milliliters INSTILL 1 DROP FOUR TIMES DAILY EACH EYE Start Date: 05/11/20 Status: Ordered magnesium oxide 400 mg oral tablet 1 tablet = 400 mg, By Mouth, Daily, # 90 tablet, 3 Refills, Maintenance, 05/07/23 16:31:00 EST, Tablet, [facility], 188, cm, 04/26/23 13:06:00 EST, Height, 126.09, kg, 04/26/23 13:06:00 EST, Dry Weight Start Date: 05/07/23 Status: Ordered meloxicam 15 mg oral tablet 1 tablet = 15 mg, By Mouth, Daily, Take with food PRN back pain [place] Rican, # 14 tablet, 0 Refills, Maintenance, 11/25/21 13:26:00 EDT, [facility], Partial fill upon patient request if the prescription is for a schedule II opioid drug., 188,... Start Date: 11/25/21 Stop Date: 12/09/21 Status: Ordered metFORMIN 750 mg oral tablet, extended release 1 tablet = 750 mg, By Mouth, Daily, [replaces the metformin 500mg bid], # 30 tablet, 5 Refills, Maintenance, 05/15/23 8:10:00 EST, ER Tablet, [facility], Partial fill upon patient request if the prescription is for a schedule II opioid drug.... Start Date: 05/15/23 Status: Ordered methadone 10 mg oral tablet See Instructions, By mouth. 2 tab in AM, 1.5 midday, 2 in evening;for pain. IDC10: G90.5 CRPS. 28 day supply. [facility]., # 154 tablet, 0 Refills, Maintenance, pain, 10/09/23 21:08:00 EDT,[facility], May partial fill., 0... Start Date: 10/09/23 Status: Ordered methadone 10 mg oral tablet See Instructions, By mouth. 2 tab in AM, 1.5 midday, 2 in evening;for pain. IDC10: G90.5 CRPS. 28 day supply. [facility]., # 154 tablet, 0 Refills, Maintenance, pain, 09/11/23 21:08:00 EDT,[facility], May partial fill., 0... Start Date: 09/11/23 Status: Ordered methadone 10 mg oral tablet See Instructions, By mouth. 2 tab in AM, 1.5 midday, 2 in evening;for pain. IDC10: G90.5 CRPS. 28 day supply. [facility]., # 154 tablet, 0 Refills, Maintenance, pain, 08/14/23 21:08:00 EDT,[facility], May partial fill., 0... Start Date: 08/14/23 Status: Ordered methadone 10 mg oral tablet See Instructions, By mouth. 2 tab in AM, 1.5 midday, 2 in evening;for pain. IDC10: G90.5 CRPS. 28 day supply. [facility]., # 154 tablet, 0 Refills, Maintenance, pain, 04/24/23 22:44:00 EST,[facility], May partial fill., 188, cm,... [...] each, 11 Refills, Maintenance, 07/26/23 14:10:00 EDT, [facility], Partial fillupon patient request if the prescription is for a s... Start Date: 07/26/23 Status: Ordered Mounjaro 7.5 mg/0.5 mL subcutaneous solution = 7.5 mg, Subcutaneous Injection, Every week, rotate injection sites, # 4 each, 5 Refills, Maintenance, 07/07/23 17:04:00 EDT, Solution, [facility], should still have a couple months of refills from last Rx sent in April but sending again... Start Date: 07/07/23 Status: Ordered Narcan 4 mg/0.1 mL nasal spray = 4 mg, Nares, Both, Once, may repeat every 2 to 3 minutes until patient responds, # 2 each, 1 Refills, Soft Stop, 02/16/22 23:38:00 EDT, [facility], 188, cm, 02/16/22 13:07:00 EDT, Height,122.63, kg, 11/22/21 16:37:00 EDT, Dry Weight Start Date: 02/16/22 Status: Ordered ondansetron 4 mg oral tablet TAKE 1 TABLET BY MOUTH EVERY 8 HOURS NEEDED FOR NAUSEA Idalia Sandoval Start Date: 08/20/18 Status: Ordered pantoprazole 40 mg oral delayed release tablet 0 Refills, Maintenance, 02/16/22 23:33:00 EDT Start Date: 02/16/22 Status: Ordered Pen [place], 31 G x 8 mm BD Ultra [...] 02/18/23 19:20:00 EST, Route to Pharmacy Electronically, [facility], 188, cm, 01/30/23 13:26:00 EDT, Height, [...] tablet, 5 Refills, Maintenance, 07/09/23 11:09:00 EDT, [facility], 30, 1 tablet By Mouth Daily, 188, cm, 07/05/23 11:09:00 EDT, Height, 126.09, kg, 04/26/23 13:06:00 EST, Dry Weight Start Date: 07/09/23 Status: Ordered tamsulosin 0.4 mg oral capsule 0.8 mg, 2, capsule, By Mouth, Daily, dose increase, # 180 capsule, Refills 11, Tot. Refills 11, Maintenance, 07/26/23 14:15:00 EDT, Route to Pharmacy Electronically, [facility], 188, cm, 07/26/23 13:30:00 EDT, Height, 121.81, kg, 07/26/23 13... Start Date: 07/26/23 Status: Ordered Test Strips See Instructions, # 100 each, Refills 5, Tot. Refills 5, Maintenance, Precision Ganga strips (for Freestyle Tatyana glucometer). Type 2 diabetes mellitus on insulin (E11, Z79.4). Test 2-4x/day if symptoms, or sensor concerns., 02/08/23 10:36:00 EDT, [employer]... Start Date: 02/08/23 Status: Ordered Test Strips [...] Every 14 days, IM or subcutaneous. [facility]., # 2 mL, 5 Refills, Maintenance, 05/04/23 13:34:00 EST, [facility], 188, cm, 04/26/23 13:06:00 EST, Height, 126.09, kg, 04/26/23 13:06:00 EST, Dry Weight Start Date: 05/04/23 Status: Ordered tiZANidine 4 mg oral tablet 4 mg, 1, tablet, By Mouth, 3 times a day, PRN, # 90 tablet, Refills 11, Tot. Refills 11, Maintenance, as needed for muscle spasm, 08/18/22 8:03:00 EDT, Route to Pharmacy Electronically, [facility], 188, cm, 07/18/22 14:01:00 EDT, Height, 122... Start Date: 08/18/22 Status: Ordered Toujeo Max SoloStar 300 units/mL subcutaneous solution = 70 units, Subcutaneous Injection, Daily, decrease frin 90u, # 12 mL, 11 Refills, Maintenance, 07/26/23 14:19:00 EDT, Solution, [facility], replaces Lantus due to insurance coverage, 188, cm, 07/26/23 13:30:00 EDT, Height, 121.81, kg, 07/25... Start Date: 07/26/23 Status: Ordered Tylenol Extra Strength 500 mg oral tablet 2 tablet = 1,000 mg, By Mouth, 3 times a day, # 30 tablet, 11 Refills, Maintenance, 03/24/21 21:00:00 EST, [facility], 188, cm, 03/22/21 14:17:00 EST, Height, 125.2, kg, 06/20/20 14:28:00 EST, Dry Weight Start Date: 03/24/21 Status: Ordered Vitamin D3 1000 intl units oral tablet 1 tablet, By Mouth, Daily, # 90 tablet, 4 Refills, Maintenance, 04/01/23 22:28:00 EST, [facility], 188, cm, 01/30/23 13:26:00 EDT, Height, [...] ? chr regional pain syndrome 4s/p Modified [facility] procedure, repair of conjoined tendon of extensor [...] Team Personnel Name: Shoaib An RN Position: [facility] RN Supv Member Role: Primary Care Nurse Name: Vamshi Man MD Position: [facility] Physician - Primary Care Member Role: PCP Address: Address: [address] [place] [address] Name: Luz Potter Position: [facility] Outreach Member Role: Lifetime Consulting Physician Name: Miki Rodriguez MD Position: [facility] Renal MD Member Role: Lifetime Consulting Physician Address: Address: [address] [facility] [place] [address]- [place] Care Team Related Persons Name: BRANDON MTZ Address: home [address] [address] Name: BRANDON BARKER Address: home [address] [place] [address] Name: ROSALINDA BERTRAND
--- OUTSIDE RECORDS SUMMARY | 2023-10-11 08:14 | XMS_ITS | Continuity of Care Document ---
Author Organization [facility] Address [address] [place] [id number]- Care Team Providers Care Lift Truck Mechanic Name Role Phone Vamshi Man MD Primary Care Physician Encounter [facility] Date(s): 08/14/23 - 09/13/23 [facility]/[address] [address]- Allergies, Adverse Reactions, Alerts Substance Reaction Severity Status penicillin 1 rash Resolved penicillins Active Latex RASH Active Other Food Allergy fresh peaches - itch y mouth, throat and lips swell Active 1rash per mother as child. Did take a penicillin for treatment of H pylori per pt w/o problem. Immunizations Given and Recorded Vaccine Date Status Refusal Reason SARS-CoV-2(COVID-19)mRNA-LNP vac([id number]) 01/30/23 Given influenza virus vaccine, inactivated 01/05/23 [...] influenza virus vaccine, inactivated 03/19/06 Give n [id number] 12y+ bivalent booster vax 02/16/22 Given pneumococcal 20-valent conjugate vaccine 02/16/22 Given Influenza Virus Vaccine (oldterm) 9 01/27/22 Recor ded Influenza Virus Vaccine (oldterm) 01/26/21 Recorde d SARS-CoV-2 mRNA ([id number]) vax 11/11/21 Given SARS-CoV-2 (COVID-19) mRNA BNT-162b2 [...] Elissa Bertrand 13Result Comment: [11/27/2017] REceived at [facility] [place], [place]; ordered by Dr Michael Oliveira 14Location [...] 11 Refills, Maintenance, 02/08/23 10:21:00 EDT, Powder, [facility], replaces Flovent due to insurance coverage, 188, cm, 01/30/23 13:26:00 EDT, Height, 126, kg, 01/30/23 13:26:00 EDT,... Start Date: 02/08/23 Status: Ordered Aspirin Low Dose 81 mg oral delayed release tablet 1 tablet, By Mouth, Daily, # 90 tablet, 4 Refills, Maintenance, 03/01/23 17:49:00 EST, [facility], 188, cm, 01/30/23 13:26:00 EDT, Height, 126, kg, 01/30/23 13:26:00 EDT, Dry Weight Start Date: 03/01/23 Status: Ordered atorvastatin 40 mg oral tablet 1 tablet, By Mouth, Daily, # 90 tablet, 1 Refills, Maintenance, 07/25/23 20:12:00 EDT, [facility], 188, cm, 07/05/23 11:09:00 EDT, Height, [...] 2 Refills, Maintenance, 04/27/22 23:43:00 EST, Cream, [facility], 1 application Topically 2 times a day,Instr:apply to penile rash, 188, cm, 04/27/22 13:44:00 EST, Heigh... Start Date: 04/27/22 Status: Ordered diazepam 10 mg oral tablet See Instructions, PRN, 1 tablet By Mouth 1 hr before MRI, # 1 tablet, Refills 2, Tot. Refills 2, Maintenance, as needed for anxiety, 01/30/23 15:02:00 EDT, Instructions Replace Required Details, Route to Pharmacy Electronically, [facility],... Start Date: 01/30/23 Status: Ordered diclofenac 1% topical gel = 2 Gm, Topically, 4 times a day, PRN for pain, (st helenian) not to exceed: 16 gm/day/joint lower limb8 gm/day/joint of upper limb 32 gm/day may interchange for cream, # 100 Gm, 11 Refills, Maintenance, 04/15/22 13:02:00 EST, Gel, [facility]... Start Date: 04/15/22 Status: Ordered docusate [...] 16 Gm, 11 Refills, Maintenance, 07/09/23 11:37:00EDT, [place], [facility], Partial fill upon patient request if the prescription is for a schedule II opioid drug., 2 sprays Nares, Both 2 times... Start Date: 07/09/23 Status: Ordered Freestyle Tatyana [place] Freestyle Tatyana [place], See Instructions, # 1 each, Refills 0, [...] days., 08/11/23 11:15:00 EDT, Recently sent to [facility]... Start Date: 08/11/23 Status: [...] 02/16/22 Status: Ordered FREESTYLE PHYLLIS LITE FREESTYLE PHYLILS LITE, See Instructions, # 100 each, 10 [...] 11 Refills, Maintenance, 11/28/21 21:27:00 EDT, Solution, [facility], 188, cm, 11/22/21 16:37:00 EDT, Height, [...] mg, By Mouth, Daily before dinner, Dr. Pemyan Roach, # 30 tablet, Maintenance, 04/29/23 23:05:00 EST, Tablet Start Date: 04/29/23 Status: Ordered lidocaine 5% topical ointment See Instructions, PRN Pain , Moderate, 1 APPLICATION TOPICALLY 3 TIMES A DAY, # 50 Gm, 5 Refills, Maintenance, 12/22/21 7:28:00 EDT, [facility], same Rx was sent 11/11 w/ [...] 3 Refills, Maintenance, 05/07/23 16:31:00 EST, Tablet, [facility], 188, cm, 04/26/23 13:06:00 EST, Height, 126.09, kg, 04/26/23 13:06:00 EST, Dry Weight Start Date: 05/07/23 Status: Ordered metFORMIN 750 mg oral tablet, extended release 1 tablet = 750 mg, By Mouth, Daily, [replaces the metformin 500mg bid], # 30 tablet, 5 Refills, Maintenance, 05/15/23 8:10:00 EST, ER Tablet, [facility], Partial fill upon patient request if the prescription is for a schedule II opioid drug.... Start Date: 05/15/23 Status: Ordered methadone 10 mg oral tablet See Instructions, By mouth. 2 tab in AM, 1.5 midday, 2 in evening;for pain. IDC10: G90.5 CRPS. 28 day supply. [facility]., # 154 tablet, 0 Refills, Maintenance, pain, 10/09/23 21:08:00 EDT,[facility], May partial fill., 0... Start Date: 10/09/23 Status: Ordered methadone 10 mg oral tablet See Instructions, By mouth. 2 tab in AM, 1.5 midday, 2 in evening;for pain. IDC10: G90.5 CRPS. 28 day supply. [facility]., # 154 tablet, 0 Refills, Maintenance, pain, 09/11/23 21:08:00 EDT,[facility], May partial fill., 0... Start Date: 09/11/23 Status: Ordered methadone 10 mg oral tablet See Instructions, By mouth. 2 tab in AM, 1.5 midday, 2 in evening;for pain. IDC10: G90.5 CRPS. 28 day supply. [facility]., # 154 tablet, 0 Refills, Maintenance, pain, 08/14/23 21:08:00 EDT,[facility], August partial fill., 0... Start Date: 08/14/23 Status: Ordered methadone 10 mg oral tablet See Instructions, By mouth. 2 tab in AM, 1.5 midday, 2 in evening;for pain. IDC10: G90.5 CRPS. 28 day supply. [facility]., # 154 tablet, 0 Refills, Maintenance, pain, 04/24/23 22:44:00 EST,[facility], May partial fill., 188, cm,... Start Date: 04/24/23 Status: Ordered Mounjaro 10 mg/0.5 mL subcutaneous solution = 10 mg, Subcutaneous Infusion, Every 7 days, please interchange with other Rx for 7.5 mg if unavailable., # 4 each, 11 Refills, Maintenance, 07/26/23 14:10:00 EDT, [facility], Partial fillupon patient request if the prescription is for a s... Start Date: 07/26/23 Status: Ordered Mounjaro 7.5 mg/0.5 mL subcutaneous solution = 7.5 mg, Subcutaneous Injection, Every week, rotate injection sites, # 4 each, 5 Refills, Maintenance, 07/07/23 17:04:00 EDT, Solution, [facility], should still have a couple months [...] 1 Refills, Soft Stop, 02/16/22 23:38:00 EDT, [facility], 188, cm, 02/16/22 13:07:00 EDT, Height,122.63, kg, 11/22/21 16:37:00 EDT, Dry Weight Start Date: 02/16/22 Status: Ordered ondansetron 4 mg oral tablet Rx by Idalia Lori, # 60, Maintenance, 08/11/23 11:48:00 EDT Start Date: 08/11/23 Status: Ordered pantoprazole 40 mg oral delayed release tablet 0 Refills, Maintenance, 02/16/22 23:33:00 EDT Start Date: 02/16/22 Status: Ordered Pen Pierson, 31 G x 8 mm BD Ultra [...] 02/18/23 19:20:00 EST, Route to Pharmacy Electronically, [facility], 188, cm, 01/30/23 13:26:00 EDT, Height, [...] tablet, 5 Refills, Maintenance, 07/09/23 11:09:00 EDT, [facility], 30, 1 tablet By Mouth Daily, 188, cm, 07/05/23 11:09:00 EDT, Height, 126.09, kg, 04/26/23 13:06:00 EST, Dry Weight Start Date: 07/09/23 Status: Ordered tamsulosin 0.4 mg oral capsule 0.8 mg, 2, capsule, By Mouth, Daily, dose increase, # 180 capsule, Refills 11, Tot. Refills 11, Maintenance, 07/26/23 14:15:00 EDT, Route to Pharmacy Electronically, [facility], 188, cm, 07/26/23 13:30:00 EDT, Height, 121.81, kg, 07/26/23 13... Start Date: 07/26/23 Status: Ordered Test Strips See Instructions, # 100 each, Refills 5, Tot. Refills 5, Maintenance, Precision Ganga strips (for Freestyle Tatyana glucometer). Type 2 diabetes mellitus on insulin (E11, Z79.4). Test 2-4x/day if symptoms, or sensor concerns., 02/08/23 10:36:00 EDT, [place]... Start Date: 02/08/23 Status: Ordered Test Strips [...] Intramuscular, Every 14 days, IM or subcutaneous. [facility]., # 2 mL, 5 Refills, Maintenance, 08/11/23 11:20:00 EDT, [facility], Last sent to [facility]. Sending now to [facility] due to pt request wale... Start Date: 08/11/23 Status: Ordered tiZANidine 4 mg oral tablet 4 mg, 1, tablet, By Mouth, 3 times a day, PRN, # 90 tablet, Refills 11, Tot. Refills 11, Maintenance, as needed for muscle spasm, 09/10/23 13:47:00 EDT, Route to Pharmacy Electronically, [facility], 188, cm, 07/26/23 17:37:00 EDT, Height, 12... Start Date: 09/10/23 Status: Ordered Toujeo Max SoloStar 300 units/mL subcutaneous solution = 70 units, Subcutaneous Injection, Daily, decrease frin 90u, # 12 mL, 11 Refills, Maintenance, 07/26/23 14:19:00 EDT, Solution, [facility], replaces Lantus due to insurance coverage, 188, cm, 07/26/23 13:30:00 EDT, Height, 121.81, kg, 07/25... Start Date: 07/26/23 Status: Ordered Tylenol Extra Strength 500 mg oral tablet 2 tablet = 1,000 mg, By Mouth, 3 times a day, # 30 tablet, 11 Refills, Maintenance, 03/24/21 21:00:00 EST, [facility], 188, cm, 03/22/21 14:17:00 EST, Height, 125.2, kg, 06/20/20 14:28:00 EST, Dry Weight Start Date: 03/24/21 Status: Ordered Vitamin D3 1000 intl units oral tablet 1 tablet, By Mouth, Daily, # 90 tablet, 4 Refills, Maintenance, 04/01/23 22:28:00 EST, [facility], 188, cm, 01/30/23 13:26:00 EDT, Height, [...] ? chr regional pain syndrome 4s/p Modified Jessie procedure, repair of conjoined tendon of extensor [...] Team Personnel Name: Shoaib An RN Position: [facility] RN Supv Member Role: Primary Care Nurse Name: Donovan DE LOS SANTOS, Vamshi Oshea Position: [facility] Physician - Primary Care Member Role: PCP Address: Address: [address] [place] [address]- Name: Luz Potter Position: [facility] Outreach Member Role: Lifetime Consulting Physician Name: Miki Rodriguez MD Position: [facility] Renal MD Member Role: Lifetime Consulting Physician Address: Address: [address] [facility] [place], [place] [address]- Care Team Related Persons Name: BRANDON MTZ Address: home [address] [place] [address] Name: BRANDON BARKER Address: home [address] [place] [address] Name: ROSALINDA BERTRAND
--- OUTSIDE RECORDS SUMMARY | 2023-10-11 08:14 | XMS_ITS | Continuity of Care Document ---
Author Organization [facility] Address [address] [place] [address]- Care Team Providers Care Internal Consultant Name Role Phone Vamshi Man MD Primary Care Physician [phone] Encounter [facility] Date(s): 06/01/23 - 07/01/23 [facility] [address], [place] [address] Attending Physician: Savanna Liu Admitting Physician: AdmSavanna galo Referring Physician: AdmtrSavanna Allergies, Adverse Reactions, Alerts Substance Reaction Severity Status penicillin 1 rash Resolved penicillins Active Latex RASH Active Other Food Allergy fresh peaches - itch y mouth, throat and lips swell Active 1rash per mother as child. Did take a penicillin for treatment of H pylori per pt w/o problem. Immunizations Given and Recorded Vaccine Date Status Refusal Reason SARS-CoV-2(COVID-19)mRNA-LNP vac([id number]) 01/30/23 Given influenza virus vaccine, inactivated 01/05/23 [...] influenza virus vaccine, inactivated 03/19/06 Give n [id number] 12y+ bivalent booster vax 02/16/22 Given pneumococcal 20-valent conjugate vaccine 02/16/22 Given Influenza Virus Vaccine (oldterm) 9 01/27/22 Recor ded Influenza Virus Vaccine (oldterm) 01/26/21 Recorde d SARS-CoV-2 mRNA ([id number]) vax 11/11/21 Given SARS-CoV-2 (COVID-19) mRNA BNT-162b2 [...] Comment: [11/27/2017] REceived at [facility] [place], [place]; ordered by Dr Michael Oliveira 14Location [...] 11 Refills, Maintenance, 02/08/23 10:21:00 EDT, Powder, [facility], replaces Flovent due to insurance coverage, 188, cm, 01/30/23 13:26:00 EDT, Height, 126, kg, 01/30/23 13:26:00 EDT,... Start Date: 02/08/23 Status: Ordered Aspirin Low Dose 81 mg oral delayed release tablet 1 tablet, By Mouth, Daily, # 90 tablet, 4 Refills, Maintenance, 03/01/23 17:49:00 EST, [facility], 188, cm, 01/30/23 13:26:00 EDT, Height, 126, kg, 01/30/23 13:26:00 EDT, Dry Weight Start Date: 03/01/23 Status: Ordered atorvastatin 40 mg oral tablet See Instructions, TAKE 1 TABLET BY MOUTH EVERY DAY, # 90 tablet, 0 Refills, Maintenance, 05/01/23 21:18:00 EST, [facility], 188, cm, 04/26/23 13:06:00 EST, Height, [...] 2 Refills, Maintenance, 04/27/22 23:43:00 EST, Cream, [facility], 1 application Topically 2 times a day,Instr:apply to penile rash, 188, cm, 04/27/22 13:44:00 EST, Heigh... Start Date: 04/27/22 Status: Ordered diazepam 10 mg oral tablet See Instructions, PRN, 1 tablet By Mouth 1 hr before MRI, # 1 tablet, Refills 2, Tot. Refills 2, Maintenance, as needed for anxiety, 01/30/23 15:02:00 EDT, Instructions Replace Required Details, Route to Pharmacy Electronically, [facility],... Start Date: 01/30/23 Status: Ordered diclofenac 1% topical gel = 2 Gm, Topically, 4 times a day, PRN for pain, (lithuanian) not to exceed: 16 gm/day/joint lower limb8 gm/day/joint of upper limb 32 gm/day may interchange for cream, # 100 Gm, 11 Refills, Maintenance, 04/15/22 13:02:00 EST, Gel, [facility]... Start Date: 04/15/22 Status: Ordered docusate [...] Start Date: 05/11/20 Status: Ordered Freestyle Tatyana [place] Freestyle Tatyana [place], See Instructions, # 1 each, Refills 0, [...] 11 Refills, Maintenance, 11/28/21 21:27:00 EDT, Solution, [facility], 188, cm, 11/22/21 16:37:00 EDT, Height, [...] Gm, 5 Refills, Maintenance, 12/22/21 7:28:00 EDT, [facility], same Rx was sent 11/11 w/ [...] 0 Refills, Maintenance, 01/12/22 7:27:00 EDT, Tablet, [facility], 188, cm, 12/26/21 14:06:00 EDT, Height, 122.63, kg, 11/22/21 16:37:00 EDT, Dry Weight Start Date: 01/12/22 Status: Ordered LUBRIC TEARS CALE 0.4-0.3% [place] INSTILL 1 DROP FOUR TIMES DAILY EACH EYE Start Date: 05/11/20 Status: Ordered magnesium oxide 400 mg oral tablet 1 tablet = 400 mg, By Mouth, Daily, # 90 tablet, 3 Refills, Maintenance, 05/07/23 16:31:00 EST, Tablet, [facility], 188, cm, 04/26/23 13:06:00 EST, Height, 126.09, kg, 04/26/23 13:06:00 EST, Dry Weight Start Date: 05/07/23 Status: Ordered meloxicam 15 mg oral tablet 1 tablet = 15 mg, By Mouth, Daily, Take with food PRN back pain Ukrainian, # 14 tablet, 0 Refills, Maintenance, 11/25/21 13:26:00 EDT, [facility], Partial fill upon patient request if the prescription is for a schedule II opioid drug., 188,... Start Date: 11/25/21 Stop Date: 12/09/21 Status: Ordered metFORMIN 750 mg oral tablet, extended release 1 tablet = 750 mg, By Mouth, Daily, [replaces the metformin 500mg bid], # 30 tablet, 5 Refills, Maintenance, 05/15/23 8:10:00 EST, ER Tablet, [facility], Partial fill upon patient request if the prescription is for a schedule II opioid drug.... Start Date: 05/15/23 Status: Ordered methadone 10 mg oral tablet See Instructions, By mouth. 2 tab in AM, 1.5 midday, 2 in evening;for pain. IDC10: G90.5 CRPS. [address] [facility]., # 154 tablet, 0 Refills, Maintenance, pain, 06/19/23 23:14:00 EST,[facility], May partial fill., 06/19/23... Start Date: 06/19/23 Status: Ordered methadone 10 mg oral tablet See Instructions, By mouth. 2 tab in AM, 1.5 midday, 2 in evening;for pain. IDC10: G90.5 CRPS. [address] [facility]., # 154 tablet, 0 Refills, Maintenance, pain, 05/22/23 23:14:00 EST,[facility], May partial fill., 05/22/23... Start Date: 05/22/23 Status: Ordered methadone 10 mg oral tablet See Instructions, By mouth. 2 tab in AM, 1.5 midday, 2 in evening;for pain. IDC10: G90.5 CRPS. 28 day supply. [facility]., # 154 tablet, 0 Refills, Maintenance, pain, 07/17/23 23:14:00 EDT,[facility], August partial fill., 07/17/23... Start Date: 07/17/23 Status: Ordered methadone 10 mg oral tablet See Instructions, By mouth. 2 tab in AM, 1.5 midday, 2 in evening;for pain. IDC10: G90.5 CRPS. 28 day supply. [facility]., # 154 tablet, 0 Refills, Maintenance, pain, 04/24/23 22:44:00 EST,[facility], August partial fill., 188, cm,... Start Date: 04/24/23 Status: Ordered Metoclopramide = 10 mg, By Mouth, 3 times a day before meals and bedtime, 0 Refills, Maintenance, 08/20/18 13:55:26 EDT Start Date: 08/20/18 Status: Ordered Mounjaro 7.5 mg/0.5 mL subcutaneous solution = 7.5 mg, Subcutaneous Injection, Every week, rotate injection sites, # 4 each, 5 Refills, Maintenance, 04/27/23 0:18:00 EST, Solution, [facility], please d/c all prior Rx/refills for semaglutide, liraglutide, dulaglutide, 188, cm, 04/26/23... Start Date: 04/27/23 Status: Ordered Narcan 4 mg/0.1 mL nasal spray = 4 mg, Nares, Both, Once, may repeat every 2 to 3 minutes until patient responds, # 2 each, 1 Refills, Soft Stop, 02/16/22 23:38:00 EDT, [facility], 188, cm, 02/16/22 13:07:00 EDT, Height,122.63, kg, 11/22/21 16:37:00 EDT, Dry Weight Start Date: 02/16/22 Status: Ordered ondansetron 4 mg oral tablet TAKE 1 TABLET BY MOUTH EVERY 8 HOURS NEEDED FOR NAUSEA Idalia Sandoval Start Date: 08/20/18 Status: Ordered pantoprazole 40 mg oral delayed release tablet 0 Refills, Maintenance, 02/16/22 23:33:00 EDT Start Date: 02/16/22 Status: Ordered Pen [place], 31 G x 8 mm BD Ultra [...] 02/18/23 19:20:00 EST, Route to Pharmacy Electronically, [facility], 188, cm, 01/30/23 13:26:00 EDT, Height, [...] tablet, 5 Refills, Maintenance, 12/19/22 20:41:00 EDT, [facility], 30, TAKE 1 TABLET BY MOUTH EVERY DAY, 188, cm, 10/19/22 13:16:00 EDT, Height, 122.63, kg, 11/22/21 16:37:00 EDT, Dry Weight Start Date: 12/19/22 Status: Ordered tamsulosin 0.4 mg oral capsule 0.8 mg, 2, capsule, By Mouth, Daily, dose increase, # 60 capsule, Refills 11, Tot. Refills 11, Maintenance, 07/27/22 11:57:00 EDT, Route to Pharmacy Electronically, [facility], 188, cm, 07/18/22 14:01:00 EDT, Height, 122.63, kg, 11/22/21 16:... Start Date: 07/27/22 Status: Ordered Test Strips See Instructions, # 100 each, Refills 5, Tot. Refills 5, Maintenance, Precision Ganga strips (for Freestyle Tatyana glucometer). Type 2 diabetes mellitus on insulin (E11, Z79.4). Test 2-4x/day if symptoms, or sensor concerns., 02/08/23 10:36:00 EDT, [place]... Start Date: 02/08/23 Status: Ordered Test [...] Intramuscular, Every 14 days, IM or subcutaneous. [facility]., # 2 mL, 5 Refills, Maintenance, 05/04/23 13:34:00 EST, [facility], 188, cm, 04/26/23 13:06:00 EST, Height, 126.09, kg, 04/26/23 13:06:00 EST, Dry Weight Start Date: 05/04/23 Status: Ordered tiZANidine 4 mg oral tablet 4 mg, 1, tablet, By Mouth, 3 times a day, PRN, # 90 tablet, Refills 11, Tot. Refills 11, Maintenance, as needed for muscle spasm, 08/18/22 8:03:00 EDT, Route to Pharmacy Electronically, [facility], 188, cm, 07/18/22 14:01:00 EDT, Height, 122... Start Date: 08/18/22 Status: Ordered Della Hodges SoloStar 300 units/mL subcutaneous solution = 60 units, Subcutaneous Injection, Daily, # 12 mL, 11 Refills, Maintenance, 02/08/23 10:15:00 EDT,Solution, [facility], replaces Lantus due to insurance coverage, 188, cm, 01/30/23 13:26:00 EDT, Height, 126, kg, 01/30/23 13:26:00 EDT, Dry... Start Date: 02/08/23 Status: Ordered Tylenol Extra Strength 500 mg oral tablet 2 tablet = 1,000 mg, By Mouth, 3 times a day, # 30 tablet, 11 Refills, Maintenance, 03/24/21 21:00:00 EST, [facility], 188, cm, 03/22/21 14:17:00 EST, Height, 125.2, kg, 06/20/20 14:28:00 EST, Dry Weight Start Date: 03/24/21 Status: Ordered Vitamin D3 1000 intl units oral tablet 1 tablet, By Mouth, Daily, # 90 tablet, 4 Refills, Maintenance, 04/01/23 22:28:00 EST, [facility], 188, cm, 01/30/23 13:26:00 EDT, Height, 126, kg, 01/30/23 13:26:00 EDT, Dry Weight Start Date: 04/01/23 Stop Date: 03/26/24 Status: Ordered Problem List Condition Confirmation Course Effective Dates Status Health Status Informant Alcohol abuse - per CNONIE kumar 2015 Confirmed Active Allergic rhinitis Confirmed [...] Care Nurse Name: Vamshi Man MD Position: [facility] Physician - Primary Care Member Role: PCP Address: Address: [address] [place] [address]- Name: Luz Potter Position: [facility] Outreach Member Role: Lifetime Consulting Physician Name: Miki Rodriguez MD Position: [facility] Renal MD Member Role: Lifetime Consulting Physician Address: Address: [address] [facility] [place] [address]- Care Team Related Persons Name: BRANDON MTZ Address: home [address] [place] [address] Name: BRANDON BARKER Address: home [address] [place] [address] Name: ROSALINDA BERTRAND
--- OUTSIDE RECORDS SUMMARY | 2023-10-11 08:14 | XMS_ITS | Continuity of Care Document ---
Author Organization [facility] Address [address] [place] [address]- Care Team Providers Care Karate Teacher Name Role Phone Vamshi Man MD Primary Care Physician [phone] Encounter [facility] Date(s): 03/24/20 - 04/23/20 [facility]/[address] [address]- Allergies, Adverse Reactions, Alerts Substance Reaction Severity [...] Comment: [11/27/2017] REceived at [facility] at [place], [place]; ordered by Dr Michael Oliveira 12Location [...] 03/30/20 21:31:00 EST, Route to Pharmacy Electronically, [facility], smithcate rx. original sent 11/04/19. remaining refills sent., [...] capsule, 3 Refills, Maintenance, 03/30/20 21:36:00 EST, [facility], 185, cm, 02/25/20 10:29:00 EST, Height, 126.81, kg, 02/25/20 10:29:00 EST, Dry Weight Start Date: 03/30/20 Status: Ordered clotrimazole 1% topical cream 1 application, Topically, 2 times a day, apply to penile rash, # 30 Gm, 2 Refills, Maintenance, 01/07/20 14:49:00 EDT, Cream, [facility], 1 application Topically 2 times a day,Instr:apply to penile rash, 185, cm, 01/07/20 13:55:00 EDT, [facility]... Start Date: 01/07/20 Status: Ordered Cozaar 100 mg oral tablet 1 tablet = 100 mg, By Mouth, Daily in AM, # 30 tablet, 5 Refills, Maintenance, 03/15/20 17:08:00 EST, Tablet, [facility], duplicate rx. original sent 09/16/19. remaining refills sent., 185, cm, 02/25/20 10:29:00 EST, Height, 126.81, kg, ... Start Date: 03/15/20 Status: Ordered diclofenac 1% topical gel = 2 Gm, Topically, 4 times a day, PRN for pain, (urdu) not to exceed: 16 gm/day/joint lower limb8 gm/day/joint of upper limb 32 gm/day, # 100 Gm, 1 Refills, Maintenance, 10/27/19 10:15:00 EDT, Gel, [facility], 185, cm, 06/24/19 13:00:... Start Date: [...] 11 Refills, Maintenance, 02/15/20 21:05:00 EST, Solution, [facility], 185, cm, 01/07/20 13:55:00 EDT, Height, [...] tablet, 11 Refills, Maintenance, 01/07/20 14:40:00 EDT, [facility], 185, cm, 01/07/20 13:55:00 EDT, Height, 127.72, kg, 05/06/19 13:41:00 EST, Dry Weight Start Date: 01/07/20 Status: Ordered Lantus Solostar Pen 100 units/mL subcutaneous solution = 90 units, Subcutaneous Infusion, Daily at bedtime, # 15 mL, 2 Refills, Maintenance, 03/08/20 15:23:00 EST, [facility], 185, cm, 02/25/20 10:29:00 EST, Height, 126.81, kg, 02/25/20 10:29:00 EST, Dry Weight Start Date: 03/08/20 Status: Ordered latanoprost 0.005% ophthalmic solution 1 drops, Eyes, Both, Daily at bedtime, cover gap- Clinical Data Research Dr Broussard, # 2.5 mL, 1 Refills, Maintenance, 02/25/14 10:47:09, Ophth Solution, 1 drops Eyes, Both Daily at bedtime,Instr:cover gap-Clinical Data Research Dr Broussard Start Date: 02/25/14 Status: Ordered lidocaine 4% topical cream 1 application, Topically, 3 times a day, may interchange 3-5% cream or ointment or 2% gel per insurance coverage., # 60 Gm, 5 Refills, Maintenance, 10/28/19 20:11:00 EDT, [facility], 1 application Topically 3 times a day,Instr:may interchang... Start Date: 10/28/19 Status: Ordered Lipitor 40 mg oral tablet 1 tablet = 40 mg, By Mouth, Daily, # 90 tablet, 3 Refills, Maintenance, 03/30/20 21:30:00 EST, [facility], duplicate rx. original sent 11/04/19. remaining [...] pain. IDC10: G90.5 CRPS. 28 day supply. [facility]., # 154 tablet, 0 Refills, Maintenance, pain, 03/30/20 23:51:00 EST,[facility], May partial fill., 03/30/20... Start Date: 03/30/20 Status: Ordered methadone 10 mg oral tablet See Instructions, By mouth. 2 tab in AM, 1.5 midday, 2 in evening;for pain. IDC10: G90.5 CRPS. 28 day supply. [facility]., # 154 tablet, 0 Refills, Maintenance, pain, 03/02/20 21:37:00 EST,[facility], May partial fill., 03/02/20... Start Date: 03/02/20 [...] Start Date: 05/15/18 Status: Ordered nystatin-triamcinolone topical 812103 u/gm-0.1% ointment 1 applicator, Topically, 3 times a day, to foreskin area FOR 3 DAYS then switch to other antifungal, # 15 Gm, 1 Refills, Maintenance, 01/07/20 14:48:00 EDT, [facility], 1 applicator Topically 3 times a [...] EDT Start Date: 08/20/18 Status: Ordered Pen [place], 31 G x 8 mm BD Ultra [...] 03/30/20 21:31:00 EST, Route to Pharmacy Electronically, [facility], 185, cm, 02/25/20 10:29:00 EST, Height, 126.81, kg, 02/25/20 10:29:00 EST, Dry Weight Start Date: 03/30/20 Status: Ordered Testosterone Cypionate = 0.75 mg, Intramuscular, Every 14 days, Adm. today to Lot [id number] exp: 02/2020, 0 Refills, Maintenance, 11/14/18 14:06:08 EDT Start Date: 11/14/18 Status: Ordered testosterone enanthate 200 mg/mL intramuscular solution 0.75 mL, Intramuscular, Every 14 days, [facility], # 5 mL, 5 Refills, Maintenance, 01/06/20 11:17:00 EDT, [facility], 185, cm, 06/24/19 13:00:00 EDT, Height, 127.72, kg, 05/06/19 13:41:00 EST, Dry Weight Start Date: 01/06/20 Status: Ordered testosterone enanthate 200 mg/mL intramuscular solution 0.75 mL, Intramuscular, Every 14 days, [facility], # 5 mL, 5 Refills, Maintenance, 01/11/20 21:30:00 EDT, [facility], 185, cm, 01/07/20 13:55:00 EDT, Height, 127.72, kg, 05/06/19 13:41:00 EST, Dry Weight Start Date: 01/11/20 Status: Ordered tiZANidine 4 mg oral tablet 4 mg, 1, tablet, By Mouth, 3 times a day, PRN, # 90 tablet, Refills 11, Tot. Refills 11, Maintenance, as needed for muscle spasm, 02/04/19 21:34:51 EDT, Route to Pharmacy Electronically, [id number]_[id number], [facility] Start Date: 02/04/19 Status: Ordered Problem [...] ? chr regional pain syndrome 4s/p Modified [place] procedure, repair of conjoined tendon of extensor [...]
--- OUTSIDE RECORDS SUMMARY | 2023-10-11 08:14 | XMS_ITS | Continuity of Care Document ---
Author Organization [facility] Address Unknown Care Team Providers Care Rush Seater Name Role Phone Vamshi Man MD Primary Care Physician [phone] [place] [facility] 03/01[place]21 - 03/31/21 [facility] Allergies, Adverse Reactions, Alerts Substance [...] REceived at [facility] at [place], [place]; ordered by Dr Michael Oliveira 13Location [...] tablet, 5 Refills, Maintenance, 11/18/20 15:30:00 EDT, [facility], 188, cm, 09/22/20 8:33:00 EDT, Height, 125.2, kg, 06/20/20 14:28:00 EST, Dry Weight Start Date: 11/18/20 Status: Ordered AutoCPAP 9-18 with heated humidification AutoCPAP 9-18 with heated humidification, See Instructions, # 1 each, Refills 0, Tot. Refills 0, Maintenance, use overnight and naps from [facility], 11/04/18 12:28:22 EDT, Compound Start Date: [...] capsule, 3 Refills, Maintenance, 03/30/20 21:36:00 EST, [facility], 185, cm, 02/25/20 10:29:00 EST, Height, 126.81, kg, 02/25/20 10:29:00 EST, Dry Weight Start Date: 03/30/20 Status: Ordered clotrimazole 1% topical cream 1 application, Topically, 2 times a day, apply to penile rash, # 30 Gm, 2 Refills, Maintenance, 01/07/20 14:49:00 EDT, Cream, [facility], 1 application Topically 2 times a day,Instr:apply to penile rash, 185, cm, 01/07/20 13:55:00 EDT, [facility]... Start Date: 01/07/20 Status: Ordered Cozaar 100 mg oral tablet 1 tablet = 100 mg, By Mouth, Daily in AM, # 30 tablet, 11 Refills, Maintenance, 09/22/20 9:41:00 EDT, Tablet, [facility], duplicate rx. original sent 09/16/19. remaining [...] 06/25/20 15:39:00 EST, Route to Pharmacy Electronically, [facility], Partial f... Start Date: 06/25/20 Status: Ordered diclofenac 1% topical gel = 2 Gm, Topically, 4 times a day, PRN for pain, (italian) not to exceed: 16 gm/day/joint lower limb8 gm/day/joint of upper limb 32 gm/day may interchange for cream, # 100 Gm, 5 Refills, Maintenance,07/08/20 15:35:00 EDT, Gel, [facility] Start Date: 07/08/20 Status: Ordered docusate [...] 11 Refills, Maintenance, 03/03/21 21:23:00 EST, Solution, [facility], 188, cm, 02/24/21 16:26:00 EST, Height, [...] mL, 11 Refills, Maintenance, 01/14/21 18:16:00 EDT, [facility], 188, cm, 12/22/20 9:45:00 EDT, Height, 125.2, kg, 06/20/20 14:28:00EST, Dry Weight Start Date: 01/14/21 Status: Ordered latanoprost 0.005% ophthalmic solution 0 Refills, Maintenance, 05/11/20 16:57:00 EST Start Date: 05/11/20 Status: Ordered lidocaine 5% topical ointment See Instructions, 1 APPLICATION TOPICALLY 3 TIMES A DAY, # 70.88 Gm, 4 Refills, Acute, [facility], 14, 1 APPLICATION TOPICALLY 3 TIMES A DAY, 188, cm, 09/22/20 8:33:00 EDT, Height, 125.2, kg, 06/20/20 14:28:00 EST, Dry Weight Start Date: 11/08/20 Status: Ordered Lipitor 40 mg oral tablet 1 tablet = 40 mg, By Mouth, Daily, # 90 tablet, 3 Refills, Maintenance, 03/30/20 21:30:00 EST, [facility], duplicate rx. original sent 11/04/19. remaining refill sent., 185, cm, 02/25/20 10:29:00 EST, Height, 126.81, kg, 02/25/20 10:29:00 EST... Start Date: 03/30/20 Status: Ordered LORazepam 1 mg oral tablet See Instructions, PRN for anxiety, 2 tablets By Mouth 1 hours prior to MRI, # 2 tablet, 0 Refills, Acute 04/15/21 10:58:00 EST, 02/23/21 9:45:00 EST, Tablet, [facility], 188, cm, 02/23/21 9:53:00 EST, Height, 125.2, kg, 06/20/20 14:28:00 EST... Start Date: 02/23/21 Stop Date: 04/15/21 Status: Ordered LORazepam 1 mg oral tablet See Instructions, PRN for anxiety, 2 tablets By Mouth 1 hours prior to MRI, # 2 tablet, 0 Refills, Acute 09/22/21 9:45:00 EDT, 09/22/20 9:43:00 EDT, Tablet, [facility], Partial fill upon patient request if the prescription is for a schedule... Start Date: 09/22/20 Stop Date: 09/22/21 Status: Ordered LORazepam 1 mg oral tablet See Instructions, PRN for anxiety, 2 tablets By Mouth 1 hours prior to MRI, # 2 tablet, 0 Refills, Maintenance, 04/15/21 10:58:00 EST, Tablet, [facility], 188, cm, 03/22/21 14:17:00 EST, Height, [...] 3 Refills, Maintenance, 07/08/20 15:40:00 EDT, Tablet, [facility], Duplicate rx-Original rx sent06/22/20. Resent., 188, cm, 07/08/20 13:42:00 EDT, He... Start Date: 07/08/20 Status: Ordered methadone 10 mg oral tablet See Instructions, By mouth. 2 tab in AM, 1.5 midday, 2 in evening;for pain. IDC10: G90.5 CRPS. 28 day supply. [facility]., # 154 tablet, 0 Refills, Maintenance, pain, 03/29/21 21:05:00 EST,[facility], May partial fill., 03/29/21... Start Date: 03/29/21 Status: Ordered methadone 10 mg oral tablet See Instructions, By mouth. 2 tab in AM, 1.5 midday, 2 in evening;for pain. IDC10: G90.5 CRPS. 28 day supply. [facility]., # 154 tablet, 0 Refills, Maintenance, pain, 04/26/21 0:34:00 EST, [facility], May partial fill., 04/26/21,... Start Date: 04/26/21 Status: Ordered Metoclopramide = 10 mg, By Mouth, 3 times a day before meals and bedtime, 0 Refills, Maintenance, 08/20/18 13:55:26 EDT Start Date: 08/20/18 Status: Ordered multivitamin Multiple Vitamins oral tablet 1 tablet, By Mouth, Daily, B complex multivitamin, # 30 tablet, 11 Refills, Maintenance, 12/22/20 10:52:00 EDT, [facility], Partial fill upon patient request if [...] Start Date: 05/15/18 Status: Ordered nystatin-triamcinolone topical 711781 u/gm-0.1% ointment 1 applicator, Topically, 3 times a day, to foreskin area FOR 3 DAYS then switch to other antifungal, # 15 Gm, 1 Refills, Maintenance, 07/08/20 15:34:00 EDT, [facility], 1 applicator Topically 3 times a [...] EDT Start Date: 08/20/18 Status: Ordered Pen [place], 31 G x 8 mm BD Ultra [...] 03/30/20 21:31:00 EST, Route to Pharmacy Electronically, [facility], 185, cm, 02/25/20 10:29:00 EST, Height, [...] solution 0.75 mL, Intramuscular, Every 14 days, [facility], # 5 mL, 5 Refills, Maintenance, 03/25/21 1:06:00 EST, [facility], 188, cm, 03/22/21 14:17:00 EST, Height, 125.2, kg, 06/20/20 14:28:00 EST, Dry Weight Start Date: 03/25/21 Status: Ordered tiZANidine 4 mg oral tablet 4 mg, 1, tablet, By Mouth, 3 times a day, PRN, # 90 tablet, Refills 11, Tot. Refills 11, Maintenance, as needed for muscle spasm, 07/08/20 15:40:00 EDT, Route to Pharmacy Electronically, [facility], 188, cm, 07/08/20 13:42:00 EDT, Height, 12... Start Date: 07/08/20 Status: Ordered traZODone 100 mg oral tablet TAKE ONE TO TWO TABLETS BY MOUTH AT BEDTIME NEEDED S. Adyroseanna Start Date: 05/11/20 Status: Ordered Tylenol Extra Strength 500 mg oral tablet 2 tablet = 1,000 mg, By Mouth, 3 times a day, # 30 tablet, 11 Refills, Maintenance, 03/24/21 21:00:00 EST, [facility], 188, cm, 03/22/21 14:17:00 EST, Height, [...]
--- OUTSIDE RECORDS SUMMARY | 2023-10-11 08:14 | XMS_ITS | Continuity of Care Document ---
Author Organization [facility] Address [address] [place] [address]- Care Team Providers Care Casino Floor Supervisor Name Role Phone Vamshi Man MD Primary Care Physician [phone] [facility]counter [facility] Date[facility]s): 02/15/23 - 03/17/23 [facility]/[place] [address]- [place] Allergies, Adverse Reactions, Alerts Substance Reaction Severity Status Other Food Allergy fresh peaches - itch y mouth, throat and lips swell Active Latex RASH Active penicillin 1 rash Resolved 1rash per mother as child. Did take a penicillin for treatment of H pylori per pt w/o problem. Immunizations Given and Recorded Vaccine Date Status Refusal Reason SARS-CoV-2(COVID-19)mRNA-LNP vac([id number]) 01/30/23 Given [id number] 12y+ bivalent booster vax 02/16/22 Given pneumococcal 20-valent conjugate vaccine 02/16/22 Given Influenza Virus Vaccine (oldterm) 1 01/27/22 Recor ded Influenza Virus Vaccine (oldterm) 01/26/21 Recorde d SARS-CoV-2 mRNA ([id number]) vax 11/11/21 Given SARS-CoV-2 (COVID-19) mRNA BNT-162b2 [...] Elissa Bertrand 13Result Comment: [11/27/2017] REceived at [facility] [place], [place]; ordered by Dr Michael Oliveira 14Location [...] 11 Refills, Maintenance, 02/08/23 10:21:00 EDT, Powder, [facility], replaces Flovent due to insurance coverage, 188, cm, 01/30/23 13:26:00 EDT, Height, 126, kg, 01/30/23 13:26:00 EDT,... Start Date: 02/08/23 Status: Ordered Aspirin Low Dose 81 mg oral delayed release tablet 1 tablet, By Mouth, Daily, # 90 tablet, 4 Refills, Maintenance, 03/01/23 17:49:00 EST, [facility], 188, cm, 01/30/23 13:26:00 EDT, Height, 126, kg, 01/30/23 13:26:00 EDT, Dry Weight Start Date: 03/01/23 Status: Ordered atorvastatin 40 mg oral tablet See Instructions, TAKE 1 TABLET BY MOUTH EVERY DAY, # 90 tablet, 1 Refills, Maintenance, 11/02/22 16:19:00 EDT, [facility], 188, cm, 10/19/22 13:16:00 EDT, Height, [...] 0 Refills, Maintenance, 05/15/22 16:24:00 EST, Tablet, [facility], Partial fill upon patient request if [...] 2 Refills, Maintenance, 04/27/22 23:43:00 EST, Cream, [facility], 1 application Topically 2 times a day,Instr:apply to penile rash, 188, cm, 04/27/22 13:44:00 EST, [facility]... Start Date: 04/27/22 Status: Ordered diazepam 10 mg oral tablet See Instructions, PRN, 1 tablet By Mouth 1 hr before MRI, # 1 tablet, Refills 2, Tot. Refills 2, Maintenance, as needed for anxiety, 01/30/23 15:02:00 EDT, Instructions Replace Required Details, Route to Pharmacy Electronically, [facility],... Start Date: 01/30/23 Status: Ordered diclofenac 1% topical gel = 2 Gm, Topically, 4 times a day, PRN for pain, (hungarian) not to exceed: 16 gm/day/joint lower limb8 gm/day/joint of upper limb 32 gm/day may interchange for cream, # 100 Gm, 11 Refills, Maintenance, 04/15/22 13:02:00 EST, Gel, [facility]... Start Date: 04/15/22 Status: Ordered docusate [...] 0 Refills, Maintenance, 09/03/22 13:58:00 EDT, Tablet, [facility], 188, cm, 07/18/22 14:01:00 EDT, Height, 122.63, kg, 11/22/21... Start Date: 09/03/22 Status: Ordered fexofenadine 60 mg oral tablet 1 tablet = 60 mg, By Mouth, 2 times a day, PRN for allergy symptoms, # 20 tablet, 0 Refills, Maintenance, 09/03/22 13:58:00 EDT, Tablet, [facility], Partial fill upon patient request if theprescription is for a schedule II opioid drug., 188... Start Date: 09/03/22 Status: Ordered fluticasone 50 mcg/inh nasal spray 0 Refills, Maintenance, 05/11/20 16:57:00 EST Start Date: 05/11/20 Status: Ordered Freestyle Tatyana [place] Freestyle Tatyana Hamshire, See Instructions, # 1 each, Refills 0, [...] May cause drowsiness, do notdrive after taking Bermudian, # 28 tablet, 0 Refills, Maintenance, 04/07/22 [...] 11 Refills, Maintenance, 11/28/21 21:27:00 EDT, Solution, [facility], 188, cm, 11/22/21 16:37:00 EDT, Height, [...] Gm, 5 Refills, Maintenance, 12/22/21 7:28:00 EDT, [facility], same Rx was sent 11/11 w/ [...] 0 Refills, Maintenance, 01/12/22 7:27:00 EDT, Tablet, [facility], 188, cm, 12/26/21 14:06:00 EDT, Height, 122.63, kg, 11/22/21 16:37:00 EDT, Dry Weight Start Date: 01/12/22 Status: Ordered losartan 100 mg oral tablet See Instructions, TAKE 1 TABLET BY MOUTH DAILY IN AM, # 30 tablet, 5 Refills, Maintenance, 02/28/2314:13:00 EST, [facility], 188, cm, 01/30/23 13:26:00 EDT, Height, 126, kg, 01/30/23 13:26:00 EDT, Dry Weight Start Date: 02/28/23 Status: Ordered LUBRIC TEARS CALE 0.4-0.3% Milliliters INSTILL 1 DROP FOUR TIMES DAILY EACH EYE Start Date: 05/11/20 Status: Ordered magnesium oxide 400 mg oral tablet 1 tablet = 400 mg, By Mouth, Daily, # 30 tablet, 11 Refills, Maintenance, 04/27/22 15:29:00 EST, Tablet, [facility], Partial fill upon patient request if the prescription is for a schedule II opioid drug., 188, cm, 04/27/22 13:44:00 EST, Hei... Start Date: 04/27/22 Status: Ordered meloxicam 15 mg oral tablet 1 tablet = 15 mg, By Mouth, Daily, Take with food PRN back pain Bermudian, # 14 tablet, 0 Refills, Maintenance, 11/25/21 13:26:00 EDT, [facility], Partial fill upon patient request if the prescription is for a schedule II opioid drug., 188,... Start Date: 11/25/21 Stop Date: 12/09/21 Status: Ordered metFORMIN 750 mg oral tablet, extended release 1 tablet = 750 mg, By Mouth, Daily, [replaces the metformin 500mg bid], # 30 tablet, 5 Refills, Maintenance, 11/01/22 8:40:00 EDT, ER Tablet, [facility], Partial fill upon patient request if the prescription is for a schedule II opioid drug.... Start Date: 11/01/22 Status: Ordered methadone 10 mg oral tablet See Instructions, By mouth. 2 tab in AM, 1.5 midday, 2 in evening;for pain. IDC10: G90.5 CRPS. 28 day supply. [facility]., # 154 tablet, 0 Refills, Maintenance, pain, 03/27/23 10:28:00 EST,[facility], August partial fill., 03/27/23... Start Date: 03/27/23 Status: Ordered methadone 10 mg oral tablet See Instructions, By mouth. 2 tab in AM, 1.5 midday, 2 in evening;for pain. IDC10: G90.5 CRPS. 28 day supply. [facility]., # 154 tablet, 0 Refills, Maintenance, pain, 02/27/23 10:28:00 EST,[facility], August partial fill., 02/27/23... Start Date: 02/27/23 Status: Ordered methadone 10 mg oral tablet See Instructions, By mouth. 2 tab in AM, 1.5 midday, 2 in evening;for pain. IDC10: G90.5 CRPS. 28 day supply. [facility]. Early fill before travel., # 154 tablet, 0 Refills, Maintenance, pain, 02/27/23 14:24:00 EST, [facility],... Start Date: 02/27/23 Status: Ordered methadone 10 mg oral tablet See Instructions, By mouth. 2 tab in AM, 1.5 midday, 2 in evening;for pain. IDC10: G90.5 CRPS. 28 day supply. [facility]., # 154 tablet, 0 Refills, Maintenance, pain, 01/30/23 14:06:00 EDT,[facility], August partial fill., 01/30/23... Start Date: [...] 1 Refills, Soft Stop, 02/16/22 23:38:00 EDT, [facility], 188, cm, 02/16/22 13:07:00 EDT, Height,122.63, [...] Date: 02/16/22 Status: Ordered PEN NEEDLES MIS [id number] PEN NEEDLES MIS [id number], See Instructions, # 100 each, 5 Refills, Maintenance, USE DAILY TYPE 2 DIABETES MELLITUS ON INSULIN WITH PEN, 08/25/22 16:39:00 EDT, 188, cm, 07/18/22 14:01:00 EDT, Height, 122.63, kg, 11/22/21 16:37:00 EDT, Dry Weight Start Date: 08/25/22 Status: Ordered Pen [place], 31 G x 8 mm BD Ultra [...] 02/18/23 19:20:00 EST, Route to Pharmacy Electronically, [facility], 188, cm, 01/30/23 13:26:00 EDT, Height, 126, kg, 01/30/23 13:26:00 EDT, Dry Weight Start Date: 02/18/23 Status: Ordered Tab-A-Kelsie oral tablet 1 tablet, By Mouth, Daily, # 30 tablet, 5 Refills, Maintenance, 12/19/22 20:41:00 EDT, [facility], 30, TAKE 1 TABLET BY MOUTH EVERY DAY, 188, cm, 10/19/22 13:16:00 EDT, Height, 122.63, kg, 11/22/21 16:37:00 EDT, Dry Weight Start Date: 12/19/22 Status: Ordered tamsulosin 0.4 mg oral capsule 0.8 mg, 2, capsule, By Mouth, Daily, dose increase, # 60 capsule, Refills 11, Tot. Refills 11, Maintenance, 07/27/22 11:57:00 EDT, Route to Pharmacy Electronically, [facility], 188, cm, 07/18/22 14:01:00 EDT, Height, 122.63, kg, 11/22/21 16:... Start Date: 07/27/22 Status: Ordered Test Strips See Instructions, # 100 each, Refills 5, Tot. Refills 5, Maintenance, Precision Ganga strips (for Freestyle Tatyana glucometer). Type 2 diabetes mellitus on insulin (E11, Z79.4). Test 2-4x/day if symptoms, or sensor concerns., 02/08/23 10:36:00 EDT, [place]... Start Date: 02/08/23 Status: Ordered Test Strips [...] Intramuscular, Every 14 days, IM or subcutaneous. [facility]., # 2 mL, 5 Refills, Maintenance, 10/27/22 17:23:00 EDT, [facility], 188, cm, 10/19/22 13:16:00 EDT, Height, 122.63, kg, 11/22/21 16:37:00 EDT, Dry Weight Start Date: 10/27/22 Status: Ordered tiZANidine 4 mg oral tablet 4 mg, 1, tablet, By Mouth, 3 times a day, PRN, # 90 tablet, Refills 11, Tot. Refills 11, Maintenance, as needed for muscle spasm, 08/18/22 8:03:00 EDT, Route to Pharmacy Electronically, [facility], 188, cm, 07/18/22 14:01:00 EDT, Height, 122... Start Date: 08/18/22 Status: Ordered Toujeo Max SoloStar 300 units/mL subcutaneous solution = 90 units, Subcutaneous Injection, Daily, # 12 mL, 11 Refills, Maintenance, 02/08/23 10:15:00 EDT,Solution, [facility], replaces Lantus due to insurance coverage, [...] tablet, 11 Refills, Maintenance, 03/24/21 21:00:00 EST, [facility], 188, cm, 03/22/21 14:17:00 EST, Height, 125.2, kg, 06/20/20 14:28:00 EST, Dry Weight Start Date: 03/24/21 Status: Ordered Victoza 18 mg/3 mL subcutaneous solution = 1.8 mg, Subcutaneous Injection, Daily, # 9 mL, 11 Refills, Maintenance, 02/08/23 10:25:00 EDT, Solution, [facility], replaces semaglutide, 188, cm, 01/30/23 13:26:00 [...] Team Personnel Name: Juve REYNA, Shoaib Position: [facility] RN Supv Member Role: Primary Care Nurse Name: Donovan DE LOS SANTOS, Vamshi Oshea Position: [facility] Physician - Primary Care Member Role: PCP Address: Address: [address] [place] [address] Name: Luz Potter Position: [facility] Outreach Member Role: Lifetime Consulting Physician Name: Michael DE LOS SANTOS, Miki Position: [facility] Renal MD Member Role: Lifetime Consulting Physician Address: Address: [address] [facility] [place] [address]- Care Team Related Persons Name: BRANDON MTZ Address: home [address] [place] [address] Name: BRANDON BARKER Address: home [address] [place] [address] Name: ROSALINDA BERTRAND Address: home [address] [place] [address]
--- OUTSIDE RECORDS SUMMARY | 2023-10-11 08:14 | XMS_ITS | Continuity of Care Document ---
Author Organization [facility] Address [address] [place] [id number]- Care Team Providers Care Systems Tester Name Role Phone Vamshi Man MD Primary Care Physician [place] [facility] [place] - 04/28/[address] [address]- Attending Physician: Savanna Liu Admitting Physician: Savanna Liu Referring Physician: AdmtrSavanna Allergies, Adverse Reactions, Alerts Substance Reaction Severity Status Other Food Allergy fresh peaches - itch y mouth, throat and lips swell Active penicillin 1 rash Resolved Latex RASH Active 1rash per mother as child. Did take a penicillin for treatment of H pylori per pt w/o problem. Immunizations Given and Recorded Vaccine Date Status Refusal Reason [id number] 12y+ bivalent booster vax 02/16/22 Given pneumococcal 20-valent conjugate vaccine 02/16/22 Given Influenza Virus Vaccine (oldterm) 1 01/27/22 Recor ded Influenza Virus Vaccine (oldterm) 01/26/21 Recorde d SARS-CoV-2 mRNA ([id number]) vax 11/11/21 Given SARS-CoV-2 (COVID-19) mRNA BNT-162b2 vac 02/23/21 Given SARS-CoV-2 (COVID-19) mRNA BNT-162b2 vac 2 05/20/20 Recorded SARS-CoV-2 (COVID-19) mRNA BNT-162b2 vac 04/29/20 Recorded influenza virus vaccine, inactivated 01/20/20 Give n influenza virus vaccine, inactivated 01/24/19 Give n influenza virus vaccine, inactivated 9/28/18 Ravindra rded influenza virus vaccine, inactivated 01/10/17 [...] Comment: [11/27/2017] REceived at [facility] [place], [place]; ordered by Dr Michael Oliveira 14Location [...] tablet, 5 Refills, Maintenance, 11/20/21 13:03:00 EDT, [facility], 188, cm, 11/11/21 12:46:00 EDT, Height, 125.2, kg, 06/20/20 14:28:00 EST, Dry Weight Start Date: 11/20/21 Status: Ordered atorvastatin 40 mg oral tablet 1 tablet, By Mouth, Daily, # 90 tablet, 1 Refills, Maintenance, 04/10/22 12:34:00 EST, [facility], 188, cm, 02/16/22 13:07:00 EDT, Height, 122.63, [...] 2 Refills, Maintenance, 04/27/22 23:43:00 EST, Cream, [facility], 1 application Topically 2 times a day,Instr:apply to penile rash, 188, cm, 04/27/22 13:44:00 EST, Heigh... Start Date: 04/27/22 Status: Ordered diclofenac 1% topical gel = 2 Gm, Topically, 4 times a day, PRN for pain, (romansh) not to exceed: 16 gm/day/joint lower limb8 gm/day/joint of upper limb 32 gm/day may interchange for cream, # 100 Gm, 11 Refills, Maintenance, 04/15/22 13:02:00 EST, Gel, [facility]... Start Date: 04/15/22 Status: Ordered docusate [...] May cause drowsiness, do notdrive after taking [place], # 28 tablet, 0 Refills, Maintenance, 04/07/22 15:51:00 EST, [facility], 188, cm, 02/16/22 13:07:00 EDT, Heigh... Start [...] 11 Refills, Maintenance, 11/28/21 21:27:00 EDT, Solution, [facility], 188, cm, 11/22/21 16:37:00 EDT, Height, [...] mL, 5 Refills, Maintenance, 01/23/22 8:43:00 EDT, [facility], 188, cm, 12/26/21 14:06:00 EDT, Height, 122.63, kg, 11/22/21 16:37:00 EDT, Dry Weight Start Date: 01/23/22 Status: Ordered latanoprost 0.005% ophthalmic solution 0 Refills, Maintenance, 05/11/20 16:57:00 EST Start Date: 05/11/20 Status: Ordered lidocaine 5% topical ointment See Instructions, PRN Pain , Moderate, 1 APPLICATION TOPICALLY 3 TIMES A DAY, # 50 Gm, 5 Refills, Maintenance, 12/22/21 7:28:00 EDT, [facility], same Rx was sent 11/11 w/ [...] 0 Refills, Maintenance, 01/12/22 7:27:00 EDT, Tablet, [facility], 188, cm, 12/26/21 14:06:00 EDT, Height, 122.63, kg, 11/22/21 16:37:00 EDT, Dry Weight Start Date: 01/12/22 Status: Ordered losartan 100 mg oral tablet 1 tablet, By Mouth, Daily in AM, # 30 tablet, 5 Refills, 03/20/22 10:07:00 EST, [facility], 188, cm, 02/16/22 13:07:00 EDT, Height, 122.63, kg, 11/22/21 16:37:00 EDT, Dry Weight Start Date: 03/20/22 Status: Ordered LUBRIC TEARS CALE 0.4-0.3% [place] INSTILL 1 DROP FOUR TIMES DAILY EACH EYE Start Date: 05/11/20 Status: Ordered magnesium oxide 400 mg oral tablet 1 tablet = 400 mg, By Mouth, Daily, # 30 tablet, 11 Refills, Maintenance, 04/27/22 15:29:00 EST, Tablet, [facility], Partial fill upon patient request if the prescription is for a schedule II opioid drug., 188, cm, 04/27/22 13:44:00 EST, Hei... Start Date: 04/27/22 Status: Ordered meloxicam 15 mg oral tablet 1 tablet = 15 mg, By Mouth, Daily, Take with food PRN back pain Marshall[place], # 14 tablet, 0 Refills, Maintenance, 11/25/21 [...] Refills, Maintenance, 11/22/21 17:53:00 EDT, ER Tablet, [facility], Partial fill upon patient requestif the prescription is for a schedule II opioid alessandra... Start Date: 11/22/21 Status: Ordered methadone 10 mg oral tablet See Instructions, By mouth. 2 tab in AM, 1.5 midday, 2 in evening;for pain. IDC10: G90.5 CRPS. 28 day supply. [facility]., # 154 tablet, 0 Refills, Maintenance, pain, 07/18/22 23:44:00 EDT,[facility], May partial fill., 07/18/22... Start Date: 07/18/22 Status: Ordered methadone 10 mg oral tablet See Instructions, By mouth. 2 tab in AM, 1.5 midday, 2 in evening;for pain. IDC10: G90.5 CRPS. 28 day supply. [facility]., # 154 tablet, 0 Refills, Maintenance, pain, 05/23/22 23:44:00 EST,[facility], May partial fill., 05/23/22... Start Date: 05/23/22 Status: Ordered methadone 10 mg oral tablet See Instructions, By mouth. 2 tab in AM, 1.5 midday, 2 in evening;for pain. IDC10: G90.5 CRPS. 28 day supply. [facility]., # 154 tablet, 0 Refills, Maintenance, pain, 06/20/22 23:45:00 EST,[facility], August partial fill., 06/20/22... Start Date: 06/20/22 Status: Ordered methadone 10 mg oral tablet See Instructions, By mouth. 2 tab in AM, 1.5 midday, 2 in evening;for pain. IDC10: G90.5 CRPS. 28 day supply. [facility]., # 154 tablet, 0 Refills, Maintenance, pain, 04/25/22 23:30:00 EST,[facility], August partial fill., 04/25/22... Start Date: 04/25/22 Status: Ordered Metoclopramide = 10 mg, By Mouth, 3 times a day before meals and bedtime, 0 Refills, Maintenance, 08/20/18 13:55:26 EDT Start Date: 08/20/18 Status: Ordered multivitamin Multiple Vitamins oral tablet 1 tablet, By Mouth, Daily, B complex multivitamin, # 30 tablet, 11 Refills, Maintenance, 11/22/21 17:58:00 EDT, [facility], Partial fill upon [...] 1 Refills, Soft Stop, 02/16/22 23:38:00 EDT, [facility], 188, cm, 02/16/22 13:07:00 EDT, [...] EDT Start Date: 02/16/22 Status: Ordered Pen [place], 31 G x 8 mm BD [...] mL, 11 Refills, Maintenance, 04/27/22 23:40:00 EST, [facility], 188, cm, 04/27/22 13:44:00 EST, Height, 122.63, kg, 11/22/21 16:37:00 EDT,... Start Date: 04/27/22 Status: Ordered Singulair 10 mg oral tablet 10 mg, 1, tablet, By Mouth, Daily, # 90 tablet, Refills 3, Tot. Refills 3, Maintenance, 03/30/20 21:31:00 EST, Route to Pharmacy Electronically, [facility], 185, cm, 02/25/20 10:29:00 EST, Height, 126.81, kg, 02/25/20 10:29:00 EST, Dry Weight Start Date: 03/30/20 Status: Ordered tamsulosin 0.4 mg oral capsule 0.4 mg, 1, capsule, By Mouth, Daily, Per urology, # 30 capsule, Refills 11, Tot. Refills 11, Maintenance, 02/16/22 23:29:00 EDT, Route to Pharmacy Electronically, [facility], 188, cm, 02/16/22 13:07:00 EDT, Height, [...] Intramuscular, Every 14 days, IM or subcutaneous. [facility]., # 2 mL, 5 Refills, Maintenance, 02/05/22 22:55:00 EDT, [facility], 188, cm, 12/26/21 14:06:00 EDT, Height, 122.63, kg, 11/22/21 16:37:00 EDT, Dry Weight Start Date: 02/05/22 Status: Ordered tiZANidine 4 mg oral tablet 4 mg, 1, tablet, By Mouth, 3 times a day, PRN, # 90 tablet, Refills 11, Tot. Refills 11, Maintenance, as needed for muscle spasm, 08/12/21 11:09:00 EDT, Route to Pharmacy Electronically, [facility], 188, cm, 07/27/21 8:34:00 EDT, Height, 125... Start Date: 08/12/21 Status: Ordered traZODone 100 mg oral tablet TAKE ONE TO TWO TABLETS BY MOUTH AT BEDTIME NEEDED SZayra Morales Start Date: 05/11/20 Status: Ordered Tylenol Extra Strength 500 mg oral tablet 2 tablet = 1,000 mg, By Mouth, 3 times a day, # 30 tablet, 11 Refills, Maintenance, 03/24/21 21:00:00 EST, [facility], 188, cm, 03/22/21 14:17:00 EST, Height, 125.2, kg, 06/20/20 14:28:00 EST, Dry Weight Start Date: 03/24/21 Status: Ordered Vitamin D3 1000 intl units oral tablet 1 tablet, By Mouth, Daily, for 30 days, # 30 tablet, 11 Refills, Physician Stop 10/30/22 17:07:00 EDT, 11/04/21 17:07:00 EDT, [facility], 188, cm, 09/15/21 12:49:00 EDT, Height, [...] ? chr regional pain syndrome 4s/p Modified [place] procedure, repair of conjoined tendon of extensor [...] Man MD Position: [facility] Primary Care Physician Member Role: PCP Address: Address: [address] [place] [address]- Name: Miki Rodriguez MD Position: [facility] Renal MD Member Role: Lifetime Consulting Physician Address: Address: [address] [facility] [address] Care Team Related Persons Name: BRANDON MTZ Address: home [address] [place] [address] Name: BRANDON BARKER Address: home [address] [place] [address] Name: ROSALINDA BERTRAND Address: home [address] [place] [address]
--- OUTSIDE RECORDS SUMMARY | 2023-10-11 08:14 | XMS_ITS | Continuity of Care Document ---
Author Organization [facility] Address [address] [place] [address]- Care Team Providers Care Safety Director Name Role Phone Vamshi Man MD Primary Care Physician [phone] Encounter [facility] Date(s): 11/24/19 - 01/07/20 [facility] [address] [address]- [facility] Attending Physician: Vamshi Man MD Admitting Physician: [...] Elissa Bertrand 11Result Comment: [11/27/2017] REceived at [facility] at [place], [place]; ordered by Dr Michael Oliveira 12Location [...] 11/04/19 15:57:00 EDT, Route to Pharmacy Electronically, [facility], 185, cm, 06/24/19 13:00:00 EDT, Height, [...] 2 Refills, Maintenance, 01/07/20 14:49:00 EDT, Cream, [facility], 1 application Topically 2 times a day,Instr:apply to penile rash, 185, cm, 01/07/20 13:55:00 EDT, Heigh... Start Date: 01/07/20 Status: Ordered Cozaar 100 mg oral tablet 1 tablet = 100 mg, By Mouth, Daily in AM, # 30 tablet, 11 Refills, Maintenance, 09/16/19 15:00:00 EDT, Tablet, [facility], 185, cm, 06/24/19 13:00:00 EDT, Height, 127.72, kg, 05/06/19 13:41:00 EST, Dry Weight Start Date: 09/16/19 Status: Ordered diclofenac 1% topical gel = 2 Gm, Topically, 4 times a day, PRN for pain, (ukrainian) not to exceed: 16 gm/day/joint lower limb8 gm/day/joint of upper limb 32 gm/day, # 100 Gm, 1 Refills, Maintenance, 10/27/19 10:15:00 EDT, Gel, [facility], 185, cm, 06/24/19 13:00:... Start Date: [...] 1 Refills, Maintenance, 12/02/19 10:07:00 EDT, Solution, [facility], duplicate rx. remaining refills sent. original [...] tablet, 11 Refills, Maintenance, 01/07/20 14:40:00 EDT, [facility], 185, cm, 01/07/20 13:55:00 EDT, Height, 127.72, kg, 05/06/19 13:41:00 EST, Dry Weight Start Date: 01/07/20 Status: Ordered Lantus Solostar Pen 100 units/mL subcutaneous solution = 90 units, Subcutaneous Infusion, Daily at bedtime, # 15 mL, 5 Refills, Maintenance, 10/09/19 15:22:00 EDT, [facility], duplicate rx. original rx sent 03/18/19. remaining refills sent, 185,cm, 06/24/19 13:00:00 EDT, Height, 127.72, kg, 04/17... Start Date: 10/09/19 Status: Ordered latanoprost 0.005% ophthalmic solution 1 drops, Eyes, Both, Daily at bedtime, cover gap- Thermostat Machine Tender Dr Broussard, # 2.5 mL, 1 Refills, Maintenance, 02/25/14 10:47:09, Ophth Solution, 1 drops Eyes, Both Daily at bedtime,Instr:cover gap-Thermostat Machine Tender Dr Broussard Start Date: 02/25/14 Status: Ordered lidocaine 4% topical cream 1 application, Topically, 3 times a day, may interchange 3-5% cream or ointment or 2% gel per insurance coverage., # 60 Gm, 5 Refills, Maintenance, 10/28/19 20:11:00 EDT, [facility], 1 application Topically 3 times a day,Instr:may interchang... Start Date: 10/28/19 Status: Ordered Linzess 145 mcg oral capsule TAKE 1 CAPSULE BY MOUTH 30 MINUTES BEFORE MEAL (constipation) Start Date: 03/31/17 Status: Ordered Lipitor 40 mg oral tablet 1 tablet = 40 mg, By Mouth, Daily, # 30 tablet, 5 Refills, Maintenance, 11/04/19 15:57:00 EDT, [facility], 185, cm, 06/24/19 13:00:00 EDT, Height, 127.72, kg, 05/06/19 13:41:00 EST, Dry Weight Start Date: 11/04/19 Status: Ordered metFORMIN 500 mg oral tablet 1 tablet = 500 mg, By Mouth, 2 times a day, with meals. Replaces metformin ER, # 60 tablet, 11 Refills, Maintenance, 06/24/19 15:02:00 EDT, Tablet, [facility], 185, cm, 06/24/19 13:00:00 EDT, Height, [...] IDC10: G90.5 CRPS. 28 day supply. [facility]., # 154 tablet, 0 Refills, Maintenance, pain, 12/08/19 12:56:00 EDT,[facility], August partial fill., 12/08/19... Start Date: 12/08/19 Status: Ordered methadone 10 mg oral tablet See Instructions, By mouth. 2 tab in AM, 1.5 midday, 2 in evening;for pain. IDC10: G90.5 CRPS. 28 day supply. [facility]., # 154 tablet, 0 Refills, Maintenance, pain, 01/06/20 10:57:00 EDT,[facility], May partial fill., 185, cm,... Start Date: 01/06/20 Status: Ordered Metoclopramide = 10 mg, By [...] Start Date: 05/15/18 Status: Ordered nystatin-triamcinolone topical 982542 u/gm-0.1% ointment 1 applicator, Topically, 3 times a day, to foreskin area FOR 3 DAYS then switch to other antifungal, # 15 Gm, 1 Refills, Maintenance, 01/07/20 14:48:00 EDT, [facility], 1 applicator Topically 3 times a [...] EDT Start Date: 08/20/18 Status: Ordered Pen [place], 31 G x 8 mm BD Ultra [...] 11/29/18 11:27:43 EDT, Route to Pharmacy Electronically, [id number], [facility] Start Date: 11/29/18 Status: Ordered Testosterone Cypionate = 0.75 mg, Intramuscular, Every 14 days, Adm. today to Lot [id number] exp: 02/2020, 0 Refills, Maintenance, 11/14/18 14:06:08 EDT Start Date: 11/14/18 Status: Ordered testosterone enanthate 200 mg/mL intramuscular solution 0.75 mL, Intramuscular, Every 14 days, [facility], # 5 mL, 5 Refills, Maintenance, 01/06/20 11:17:00 EDT, [facility], 185, cm, 06/24/19 13:00:00 EDT, Height, 127.72, kg, 05/06/19 13:41:00 EST, Dry Weight Start Date: 01/06/20 Status: Ordered tiZANidine 4 mg oral tablet 4 mg, 1, tablet, By Mouth, 3 times a day, PRN, # 90 tablet, Refills 11, Tot. Refills 11, Maintenance, as needed for muscle spasm, 02/04/19 21:34:51 EDT, Route to Pharmacy Electronically, NCPDP_[id number], [facility] Start Date: 02/04/19 Status: Ordered Problem [...]
--- OUTSIDE RECORDS SUMMARY | 2023-10-11 08:14 | XMS_ITS | Continuity of Care Document ---
Author Organization [facility] Address Unknown Care Team Providers Care Account Installation Specialist Name Role Phone Vamshi Man MD Primary Care Physician [phone] Encounter [facility] Date(s): 03/29/21 - 04/28/21 [facility] Allergies, Adverse Reactions, Alerts Substance [...] Elissa Bertrand 12Result Comment: [11/27/2017] REceived at [facility] [place], [place]; ordered by Dr Michael Oliveira 13Location [...] Dry Weight Start Date: 11/18/20 Status: Ordered atorvastatin 40 mg oral tablet 1 tablet, By Mouth, Daily, # 90 tablet, 1 Refills, [facility], 188, cm, 03/22/21 14:17:00EST, Height, 125.2, [...] capsule, 3 Refills, Maintenance, 03/30/20 21:36:00 EST, [facility], 185, cm, 02/25/20 10:29:00 EST, Height, 126.81, kg, 02/25/20 10:29:00 EST, Dry Weight Start Date: 03/30/20 Status: Ordered clotrimazole 1% topical cream 1 application, Topically, 2 times a day, apply to penile rash, # 30 Gm, 2 Refills, Maintenance, 01/07/20 14:49:00 EDT, Cream, [facility], 1 application Topically 2 times a day,Instr:apply to penile rash, 185, cm, 01/07/20 13:55:00 EDT, Heigh... Start Date: 01/07/20 Status: Ordered Cozaar 100 mg oral tablet 1 tablet = 100 mg, By Mouth, Daily in AM, # 30 tablet, 11 Refills, Maintenance, 09/22/20 9:41:00 EDT, Tablet, [facility], duplicate rx. original sent 09/16/19. remaining [...] 06/25/20 15:39:00 EST, Route to Pharmacy Electronically, [facility], Partial f... Start Date: 06/25/20 Status: Ordered diclofenac 1% topical gel = 2 Gm, Topically, 4 times a day, PRN for pain, (azeri) not to exceed: 16 gm/day/joint lower limb8 gm/day/joint of upper limb 32 gm/day may interchange for cream, # 100 Gm, 5 Refills, Maintenance,07/08/20 15:35:00 EDT, Gel, [facility] Start Date: 07/08/20 Status: Ordered docusate [...] 11 Refills, Maintenance, 03/03/21 21:23:00 EST, Solution, [facility], 188, cm, 02/24/21 16:26:00 EST, Height, [...] mL, 11 Refills, Maintenance, 01/14/21 18:16:00 EDT, [facility], 188, cm, 12/22/20 9:45:00 EDT, Height, 125.2, kg, 06/20/20 14:28:00EST, Dry Weight Start Date: 01/14/21 Status: Ordered latanoprost 0.005% ophthalmic solution 0 Refills, Maintenance, 05/11/20 16:57:00 EST Start Date: 05/11/20 Status: Ordered lidocaine 5% topical ointment See Instructions, 1 APPLICATION TOPICALLY 3 TIMES A DAY, # 70.88 Gm, 4 Refills, Acute, [facility], 14, 1 APPLICATION TOPICALLY 3 TIMES A DAY, 188, cm, 09/22/20 8:33:00 EDT, Height, 125.2, kg, 06/20/20 14:28:00 EST, Dry Weight Start Date: 11/08/20 Status: Ordered LORazepam 1 mg oral tablet See Instructions, PRN for anxiety, 2 tablets By Mouth 1 hours prior to MRI, # 2 tablet, 0 Refills, Acute 09/22/21 9:45:00 EDT, 09/22/20 9:43:00 EDT, Tablet, [facility], Partial fill upon patient request if the prescription is for a schedule... Start Date: 09/22/20 Stop Date: 09/22/21 Status: Ordered LORazepam 1 mg oral tablet See Instructions, PRN for anxiety, 2 tablets By Mouth 1 hours prior to MRI, # 2 tablet, 0 Refills, Maintenance, 04/15/21 10:58:00 EST, Tablet, [facility], 188, cm, 03/22/21 14:17:00 EST, Height, [...] 3 Refills, Maintenance, 07/08/20 15:40:00 EDT, Tablet, [facility], Duplicate rx-Original rx sent06/22/20. Resent., 188, cm, 07/08/20 13:42:00 EDT, He... Start Date: 07/08/20 Status: Ordered methadone 10 mg oral tablet See Instructions, By mouth. 2 tab in AM, 1.5 midday, 2 in evening;for pain. IDC10: G90.5 CRPS. 28 day supply. [facility]., # 154 tablet, 0 Refills, Maintenance, pain, 03/29/21 21:05:00 EST,[facility], August partial fill., 03/29/21... Start Date: 03/29/21 Status: Ordered methadone 10 mg oral tablet See Instructions, By mouth. 2 tab in AM, 1.5 midday, 2 in evening;for pain. IDC10: G90.5 CRPS. 28 day supply. [facility]., # 154 tablet, 0 Refills, Maintenance, pain, 04/26/21 0:34:00 EST, [facility], August partial fill., 04/26/21,... Start Date: 04/26/21 Status: Ordered Metoclopramide = 10 mg, By Mouth, 3 times a day before meals and bedtime, 0 Refills, Maintenance, 08/20/18 13:55:26 EDT Start Date: 08/20/18 Status: Ordered multivitamin Multiple Vitamins oral tablet 1 tablet, By Mouth, Daily, B complex multivitamin, # 30 tablet, 11 Refills, Maintenance, 12/22/20 10:52:00 EDT, [facility], Partial fill upon patient [...] Start Date: 05/15/18 Status: Ordered nystatin-triamcinolone topical 631953 u/gm-0.1% ointment 1 applicator, Topically, 3 times a day, to foreskin area FOR 3 DAYS then switch to other antifungal, # 15 Gm, 1 Refills, Maintenance, 07/08/20 15:34:00 EDT, [facility], 1 applicator Topically 3 times a [...] EDT Start Date: 08/20/18 Status: Ordered Pen [place], 31 G x 8 mm BD Ultra [...] 03/30/20 21:31:00 EST, Route to Pharmacy Electronically, [facility], 185, cm, 02/25/20 10:29:00 EST, Height, [...] solution 0.75 mL, Intramuscular, Every 14 days, [facility], # 5 mL, 5 Refills, Maintenance, 03/25/21 1:06:00 EST, [facility], 188, cm, 03/22/21 14:17:00 EST, Height, 125.2, kg, 06/20/20 14:28:00 EST, Dry Weight Start Date: 03/25/21 Status: Ordered tiZANidine 4 mg oral tablet 4 mg, 1, tablet, By Mouth, 3 times a day, PRN, # 90 tablet, Refills 11, Tot. Refills 11, Maintenance, as needed for muscle spasm, 07/08/20 15:40:00 EDT, Route to Pharmacy Electronically, [facility], 188, cm, 07/08/20 13:42:00 EDT, Height, 12... Start Date: 07/08/20 Status: Ordered traZODone 100 mg oral tablet TAKE ONE TO TWO TABLETS BY MOUTH AT BEDTIME NEEDED S. McAnbrett Start Date: 05/11/20 Status: Ordered Tylenol Extra Strength 500 mg oral tablet 2 tablet = 1,000 mg, By Mouth, 3 times a day, # 30 tablet, 11 Refills, Maintenance, 03/24/21 21:00:00 EST, [facility], 188, cm, 03/22/21 14:17:00 EST, Height, [...] ? chr regional pain syndrome 4s/p Modified [place] procedure, repair of conjoined tendon of extensor [...]
--- OUTSIDE RECORDS SUMMARY | 2023-10-11 08:14 | XMS_ITS | Continuity of Care Document ---
Author Organization [facility] Address [address] [place] [address]- Care Team Providers Care Solar Lab Technician Name Role Phone Vamshi Man MD Primary Care Physician Encounter [facility] Date(s): 05/15/23 - 06/14/23 [facility]/[place] [address]- [place] Allergies, Adverse Reactions, Alerts Substance Reaction Severity Status penicillins Active Other Food Allergy fresh peaches - itch y mouth, throat and lips swell Active penicillin 1 rash Resolved Latex RASH Active 1rash per mother as child. Did take a penicillin for treatment of H pylori per pt w/o problem. Immunizations Given and Recorded Vaccine Date Status Refusal Reason SARS-CoV-2(COVID-19)mRNA-LNP vac([id number]) 01/30/23 Given influenza virus vaccine, inactivated 01/05/23 Arvindra rded influenza virus vaccine, inactivated 01/20/20 Give [...] influenza virus vaccine, inactivated 03/19/06 Give n [id number] 12y+ bivalent booster vax 02/16/22 Given pneumococcal 20-valent conjugate vaccine 02/16/22 Given Influenza Virus Vaccine (oldterm) 9 01/27/22 Recor ded Influenza Virus Vaccine (oldterm) 01/26/21 Recorde d SARS-CoV-2 mRNA (enonpik-cmri-lnqza) vax 11/11/21 Given SARS-CoV-2 (COVID-19) mRNA BNT-162b2 [...] Elissa Bertrand 13Result Comment: [11/27/2017] REceived at [facility] at [place], [place]; ordered by Dr Michael Oliveira 14Location [...] 11 Refills, Maintenance, 02/08/23 10:21:00 EDT, Powder, [facility], replaces Flovent due to insurance coverage, 188, cm, 01/30/23 13:26:00 EDT, Height, 126, kg, 01/30/23 13:26:00 EDT,... Start Date: 02/08/23 Status: Ordered Aspirin Low Dose 81 mg oral delayed release tablet 1 tablet, By Mouth, Daily, # 90 tablet, 4 Refills, Maintenance, 03/01/23 17:49:00 EST, [facility], 188, cm, 01/30/23 13:26:00 EDT, Height, 126, kg, 01/30/23 13:26:00 EDT, Dry Weight Start Date: 03/01/23 Status: Ordered atorvastatin 40 mg oral tablet See Instructions, TAKE 1 TABLET BY MOUTH EVERY DAY, # 90 tablet, 0 Refills, Maintenance, 05/01/23 21:18:00 EST, [facility], 188, cm, 04/26/23 13:06:00 EST, Height, [...] 2 Refills, Maintenance, 04/27/22 23:43:00 EST, Cream, [facility], 1 application Topically 2 times a day,Instr:apply to penile rash, 188, cm, 04/27/22 13:44:00 EST, Heigh... Start Date: 04/27/22 Status: Ordered diazepam 10 mg oral tablet See Instructions, PRN, 1 tablet By Mouth 1 hr before MRI, # 1 tablet, Refills 2, Tot. Refills 2, Maintenance, as needed for anxiety, 01/30/23 15:02:00 EDT, Instructions Replace Required Details, Route to Pharmacy Electronically, [facility],... Start Date: 01/30/23 Status: Ordered diclofenac 1% topical gel = 2 Gm, Topically, 4 times a day, PRN for pain, (upper sorbian) not to exceed: 16 gm/day/joint lower limb8 gm/day/joint of upper limb 32 gm/day may interchange for cream, # 100 Gm, 11 Refills, Maintenance, 04/15/22 13:02:00 EST, Gel, [facility]... Start Date: 04/15/22 Status: Ordered docusate [...] Start Date: 05/11/20 Status: Ordered Freestyle Tatyana Lyons Freestyle Tatyana Lyons, See Instructions, # 1 each, Refills 0, [...] 11 Refills, Maintenance, 11/28/21 21:27:00 EDT, Solution, [facility], 188, cm, 11/22/21 16:37:00 EDT, Height, [...] Gm, 5 Refills, Maintenance, 12/22/21 7:28:00 EDT, [facility], same Rx was sent 11/11 w/ [...] Refills, Maintenance, 01/12/22 7:27:00 EDT, Tablet, [facility], 188, cm, 12/26/21 14:06:00 EDT, Height, 122.63, kg, 11/22/21 16:37:00 EDT, Dry Weight Start Date: 01/12/22 Status: Ordered LUBRIC TEARS CALE 0.4-0.3% Milliliters INSTILL 1 DROP FOUR TIMES DAILY EACH EYE Start Date: 05/11/20 Status: Ordered magnesium oxide 400 mg oral tablet 1 tablet = 400 mg, By Mouth, Daily, # 90 tablet, 3 Refills, Maintenance, 05/07/23 16:31:00 EST, Tablet, [facility], 188, cm, 04/26/23 13:06:00 EST, Height, 126.09, kg, 04/26/23 13:06:00 EST, Dry Weight Start Date: 05/07/23 Status: Ordered meloxicam 15 mg oral tablet 1 tablet = 15 mg, By Mouth, Daily, Take with food PRN back pain Nepalese, # 14 tablet, 0 Refills, Maintenance, 11/25/21 [...] tablet, 0 Refills, Maintenance, pain, 06/19/23 23:14:00 EST,[facility], August partial fill., 06/19/23... Start Date: 06/19/23 Status: Ordered methadone 10 mg oral tablet See Instructions, By mouth. 2 tab in AM, 1.5 midday, 2 in evening;for pain. IDC10: G90.5 CRPS. 28 day supply. [facility]., # 154 tablet, 0 Refills, Maintenance, pain, 05/22/23 23:14:00 EST,[facility], August partial fill., 05/22/23... Start Date: 05/22/23 Status: Ordered methadone 10 mg oral tablet See Instructions, By mouth. 2 tab in AM, 1.5 midday, 2 in evening;for pain. IDC10: G90.5 CRPS. 28 day supply. [facility]., # 154 tablet, 0 Refills, Maintenance, pain, 07/17/23 23:14:00 EDT,[facility], August partial fill., 07/17/23... Start Date: 07/17/23 Status: Ordered methadone 10 mg oral tablet See Instructions, By mouth. 2 tab in AM, 1.5 midday, 2 in evening;for pain. IDC10: G90.5 CRPS. 28 day supply. [facility]., # 154 tablet, 0 Refills, Maintenance, pain, 04/24/23 22:44:00 EST,[facility], August partial fill., 188, cm,... Start Date: 04/24/23 Status: Ordered Metoclopramide = 10 mg, By Mouth, 3 times a day before meals and bedtime, 0 Refills, Maintenance, 08/20/18 13:55:26 EDT Start Date: 08/20/18 Status: Ordered Mounjaro 7.5 mg/0.5 mL subcutaneous solution = 7.5 mg, Subcutaneous Injection, Every week, rotate injection sites, # 4 each, 5 Refills, Maintenance, 04/27/23 0:18:00 EST, Solution, [facility], please d/c all prior Rx/refills [...] EDT Start Date: 02/16/22 Status: Ordered Pen Gibbs, 31 G x 8 mm BD Ultra [...] 02/18/23 19:20:00 EST, Route to Pharmacy Electronically, [facility], 188, cm, 01/30/23 13:26:00 EDT, Height, [...] tablet, 5 Refills, Maintenance, 12/19/22 20:41:00 EDT, [facility], 30, TAKE 1 TABLET BY MOUTH EVERY DAY, 188, cm, 10/19/22 13:16:00 EDT, Height, 122.63, kg, 11/22/21 16:37:00 EDT, Dry Weight Start Date: 12/19/22 Status: Ordered tamsulosin 0.4 mg oral capsule 0.8 mg, 2, capsule, By Mouth, Daily, dose increase, # 60 capsule, Refills 11, Tot. Refills 11, Maintenance, 07/27/22 11:57:00 EDT, Route to Pharmacy Electronically, [facility], 188, cm, 07/18/22 14:01:00 EDT, Height, 122.63, kg, 11/22/21 16:... Start Date: 07/27/22 Status: Ordered Test Strips See Instructions, # 100 each, Refills 5, Tot. Refills 5, Maintenance, Precision Ganga strips (for Freestyle Tatyana glucometer). Type 2 diabetes mellitus on insulin (E11, Z79.4). Test 2-4x/day if symptoms, or sensor concerns., 02/08/23 10:36:00 EDT, [facility]... Start Date: 02/08/23 Status: Ordered Test Strips [...] Intramuscular, Every 14 days, IM or subcutaneous. [facility]., # 2 mL, 5 Refills, Maintenance, 05/04/23 13:34:00 EST, [facility], 188, cm, 04/26/23 13:06:00 EST, Height, 126.09, kg, 04/26/23 13:06:00 EST, Dry Weight Start Date: 05/04/23 Status: Ordered tiZANidine 4 mg oral tablet 4 mg, 1, tablet, By Mouth, 3 times a day, PRN, # 90 tablet, Refills 11, Tot. Refills 11, Maintenance, as needed for muscle spasm, 08/18/22 8:03:00 EDT, Route to Pharmacy Electronically, [facility], 188, cm, 07/18/22 14:01:00 EDT, Height, 122... Start Date: 08/18/22 Status: Ordered Della Hodges SoloStar 300 units/mL subcutaneous solution = 60 units, Subcutaneous Injection, Daily, # 12 mL, 11 Refills, Maintenance, 02/08/23 10:15:00 EDT,Solution, [facility], replaces Lantus due to insurance coverage, 188, cm, 01/30/23 13:26:00 EDT, Height, 126, kg, 01/30/23 13:26:00 EDT, Dry... Start Date: 02/08/23 Status: Ordered Tylenol Extra Strength 500 mg oral tablet 2 tablet = 1,000 mg, By Mouth, 3 times a day, # 30 tablet, 11 Refills, Maintenance, 03/24/21 21:00:00 EST, [facility], 188, cm, 03/22/21 14:17:00 EST, Height, 125.2, kg, 06/20/20 14:28:00 EST, Dry Weight Start Date: 03/24/21 Status: Ordered Vitamin D3 1000 intl units oral tablet 1 tablet, By Mouth, Daily, # 90 tablet, 4 Refills, Maintenance, 04/01/23 22:28:00 EST, [facility], 188, cm, 01/30/23 13:26:00 EDT, Height, [...] ? chr regional pain syndrome 4s/p Modified Lanse procedure, repair of conjoined tendon of extensor [...] Donovan DE LOS SANTOS, Vamshi Oshea Position: [facility] Physician - Primary Care Member Role: PCP Address: Address: [address] [place] [address]- Name: Luz Potter Position: [facility] Outreach Member Role: Lifetime Consulting Physician Name: Miki Rodriguez MD Position: [facility] Renal MD Member Role: Lifetime Consulting Physician Address: Address: [address] [facility] [place] [address]- Care Team Related Persons Name: BRANDON MTZ Address: home [address] [place] [address] Name: BRANDON BARKER Address: home [address] [place] [address] Name: ROSALINDA BERTRAND Address: home [address] [place] [address]
--- OUTSIDE RECORDS SUMMARY | 2023-10-11 08:14 | XMS_ITS | Continuity of Care Document ---
Author Organization [facility] Address [address] [place] [address]- Care Team Providers Care House Piping Inspector Name Role Phone Vamshi Man MD Primary Care Physician Encounter [facility] [place](s): 06/22/20 - 07/25/20 [facility] [address] [place] [address]- Attending Physician: Karina Angel MD Admitting Physician: Karina Angel MD Allergies, Adverse Reactions, Alerts Substance Reaction [...] Elissa Bertrand 12Result Comment: [11/27/2017] REceived at [facility] at [place], [place]; ordered by Dr Michael Oliveira 13Location [...] 03/30/20 21:31:00 EST, Route to Pharmacy Electronically, [facility], iLumencate rx. original sent 11/04/19. remaining refills sent., [...] tablet = 300 mg, By Mouth, Daily, aLtosha Reyes, Maintenance, 03/14/18 8:20:24 EST, ER Tablet Start Date: 03/14/18 Status: Ordered cetirizine 10 mg oral tablet TAKE 1 TABLET ONCE A DAY IN THE EVENING FOR 90 DAYS Start Date: 08/20/18 Status: Ordered cholecalciferol 1000 intl units oral capsule 1 capsule, By Mouth, Daily, # 90 capsule, 3 Refills, Maintenance, 03/30/20 21:36:00 EST, [facility], 185, cm, 02/25/20 10:29:00 EST, Height, 126.81, kg, 02/25/20 10:29:00 EST, Dry Weight Start Date: 03/30/20 Status: Ordered clotrimazole 1% topical cream 1 application, Topically, 2 times a day, apply to penile rash, # 30 Gm, 2 Refills, Maintenance, 01/07/20 14:49:00 EDT, Cream, [facility], 1 application Topically 2 times a day,Instr:apply to penile rash, 185, cm, 01/07/20 13:55:00 EDT, Heigh... Start Date: 01/07/20 Status: Ordered Cozaar 100 mg oral tablet 1 tablet = 100 mg, By Mouth, Daily in AM, # 30 tablet, 5 Refills, Maintenance, 03/15/20 17:08:00 EST, Tablet, [facility], duplicate rx. original sent 09/16/19. remaining refills sent., 185, cm, 02/25/20 10:29:00 EST, Height, 126.81, kg, 11/11/... Start Date: 03/15/20 Status: Ordered cyclobenzaprine 10 mg oral tablet 10 mg, 1, tablet, By Mouth, 3 times a day, PRN, do not drive after taking this medication, # 30 tablet, Refills 0, Tot. Refills 0, Maintenance, Spasm for spasm, 06/25/20 15:39:00 EST, Route to Pharmacy Electronically, [facility], Partial f... Start Date: 06/25/20 Status: Ordered diclofenac 1% topical gel = 2 Gm, Topically, 4 times a day, PRN for pain, (occitan) not to exceed: 16 gm/day/joint lower limb8 gm/day/joint of upper limb 32 gm/day may interchange for cream, # 100 Gm, 5 Refills, Maintenance,07/08/20 15:35:00 EDT, Gel, [facility] Start Date: 07/08/20 Status: Ordered docusate [...] 11 Refills, Maintenance, 02/15/20 21:05:00 EST, Solution, [facility], 185, cm, 01/07/20 13:55:00 EDT, Height, [...] mL, 3 Refills, Maintenance, 07/08/20 15:42:00 EDT, [facility], Duplicate rx-Original rx sent 06/22/20. Resent., 188, cm, 07/08/20 13:42:00 EDT, Height, 125.2, kg, 06/20/20 14:28:00 EST,... Start Date: 07/08/20 Status: Ordered latanoprost 0.005% ophthalmic solution 0 Refills, Maintenance, 05/11/20 16:57:00 EST Start Date: 05/11/20 Status: Ordered Lipitor 40 mg oral tablet 1 tablet = 40 mg, By Mouth, Daily, # 90 tablet, 3 Refills, Maintenance, 03/30/20 21:30:00 EST, [facility], duplicate rx. original sent 11/04/19. [...] 3 Refills, Maintenance, 07/08/20 15:40:00 EDT, Tablet, [facility], Duplicate rx-Original rx sent06/22/20. Resent., 188, cm, 07/08/20 13:42:00 EDT, He... Start Date: 07/08/20 Status: Ordered methadone 10 mg oral tablet See Instructions, By mouth. 2 tab in AM, 1.5 midday, 2 in evening;for pain. IDC10: G90.5 CRPS. 28 day supply. [facility]., # 154 tablet, 0 Refills, Maintenance, pain, 07/20/20 15:43:00 EDT,[facility], August partial fill., 188, cm,... Start Date: 07/20/20 Status: Ordered methadone 10 mg oral tablet See Instructions, By mouth. 2 tab in AM, 1.5 midday, 2 in evening;for pain. IDC10: G90.5 CRPS. 28 day supply. [facility]., # 154 tablet, 0 Refills, Maintenance, pain, 08/17/20 15:47:00 EDT,[facility], August partial fill., 08/17/20... Start Date: 08/17/20 [...] Start Date: 05/15/18 Status: Ordered nystatin-triamcinolone topical 810011 u/gm-0.1% ointment 1 applicator, Topically, 3 times a day, to foreskin area FOR 3 DAYS then switch to other antifungal, # 15 Gm, 1 Refills, Maintenance, 07/08/20 15:34:00 EDT, [facility], 1 applicator Topically 3 times a [...] EDT Start Date: 08/20/18 Status: Ordered Pen Francitas, 31 G x 8 mm BD Ultra [...] 03/30/20 21:31:00 EST, Route to Pharmacy Electronically, [facility], 185, cm, 02/25/20 10:29:00 EST, Height, [...] solution 0.75 mL, Intramuscular, Every 14 days, [facility], # 5 mL, 5 Refills, Maintenance, 01/11/20 21:30:00 EDT, [facility], 185, cm, 01/07/20 13:55:00 EDT, Height, 127.72, kg, 05/06/19 13:41:00 EST, Dry Weight Start Date: 01/11/20 Status: Ordered tiZANidine 4 mg oral tablet 4 mg, 1, tablet, By Mouth, 3 times a day, PRN, # 90 tablet, Refills 11, Tot. Refills 11, Maintenance, as needed for muscle spasm, 07/08/20 15:40:00 EDT, Route to Pharmacy Electronically, [facility], 188, cm, 07/08/20 13:42:00 EDT, Height, [...]
--- OUTSIDE RECORDS SUMMARY | 2023-10-11 08:14 | XMS_ITS | Continuity of Care Document ---
Author Organization [facility] Address [address] [place] [address]- Care Team Providers Care Musical Instrument Supervisor Name Role Phone Vamshi Man MD Primary Care Physician [facility] Date(s): 04/24/23 - 05/24/23 [facility]/[place] [address]- [place] Allergies, Adverse Reactions, Alerts Substance Reaction Severity Status penicillin 1 rash Resolved penicillins Active Latex RASH Active Other Food Allergy fresh peaches - itch y mouth, throat and lips swell Active 1rash per mother as child. Did take a penicillin for treatment of H pylori per pt w/o problem. Immunizations Given and Recorded Vaccine Date Status Refusal Reason SARS-CoV-2(COVID-19)mRNA-LNP vac([id number]) 01/30/23 Given influenza virus vaccine, inactivated 01/05/23 [...] influenza virus vaccine, inactivated 03/19/06 Give n [id number] 12y+ bivalent booster vax 02/16/22 Given pneumococcal 20-valent conjugate vaccine 02/16/22 Given Influenza Virus Vaccine (oldterm) 9 01/27/22 Recor ded Influenza Virus Vaccine (oldterm) 01/26/21 Recorde d SARS-CoV-2 mRNA ([id number]) vax 11/11/21 Given SARS-CoV-2 (COVID-19) mRNA BNT-162b2 [...] [11/27/2017] REceived at [facility] at [place], [place]; ordered by Dr Michael Oliveira 14Location [...] 11 Refills, Maintenance, 02/08/23 10:21:00 EDT, Powder, [facility], replaces Flovent due to insurance coverage, 188, cm, 01/30/23 13:26:00 EDT, Height, 126, kg, 01/30/23 13:26:00 EDT,... Start Date: 02/08/23 Status: Ordered Aspirin Low Dose 81 mg oral delayed release tablet 1 tablet, By Mouth, Daily, # 90 tablet, 4 Refills, Maintenance, 03/01/23 17:49:00 EST, [facility], 188, cm, 01/30/23 13:26:00 EDT, Height, 126, kg, 01/30/23 13:26:00 EDT, Dry Weight Start Date: 03/01/23 Status: Ordered atorvastatin 40 mg oral tablet See Instructions, TAKE 1 TABLET BY MOUTH EVERY DAY, # 90 tablet, 0 Refills, Maintenance, 05/01/23 21:18:00 EST, [facility], 188, cm, 04/26/23 13:06:00 EST, Height, [...] 2 Refills, Maintenance, 04/27/22 23:43:00 EST, Cream, [facility], 1 application Topically 2 times a day,Instr:apply to penile rash, 188, cm, 04/27/22 13:44:00 EST, Heigh... Start Date: 04/27/22 Status: Ordered diazepam 10 mg oral tablet See Instructions, PRN, 1 tablet By Mouth 1 hr before MRI, # 1 tablet, Refills 2, Tot. Refills 2, Maintenance, as needed for anxiety, 01/30/23 15:02:00 EDT, Instructions Replace Required Details, Route to Pharmacy Electronically, [facility],... Start Date: 01/30/23 Status: Ordered diclofenac 1% topical gel = 2 Gm, Topically, 4 times a day, PRN for pain, (egyptian) not to exceed: 16 gm/day/joint lower limb8 gm/day/joint of upper limb 32 gm/day may interchange for cream, # 100 Gm, 11 Refills, Maintenance, 04/15/22 13:02:00 EST, Gel, [facility]... Start Date: 04/15/22 Status: Ordered docusate [...] Start Date: 05/11/20 Status: Ordered Freestyle Tatyana [place] Freestyle Tatyana [place], See Instructions, # 1 each, Refills 0, [...] 11 Refills, Maintenance, 11/28/21 21:27:00 EDT, Solution, [facility], 188, cm, 11/22/21 16:37:00 EDT, Height, [...] Gm, 5 Refills, Maintenance, 12/22/21 7:28:00 EDT, [facility], same Rx was sent 11/11 w/ 5 [...] 0 Refills, Maintenance, 01/12/22 7:27:00 EDT, Tablet, [facility], 188, cm, 12/26/21 14:06:00 EDT, Height, 122.63, kg, 11/22/21 16:37:00 EDT, Dry Weight Start Date: 01/12/22 Status: Ordered LUBRIC TEARS CALE 0.4-0.3% [place] INSTILL 1 DROP FOUR TIMES DAILY EACH EYE Start Date: 05/11/20 Status: Ordered magnesium oxide 400 mg oral tablet 1 tablet = 400 mg, By Mouth, Daily, # 90 tablet, 3 Refills, Maintenance, 05/07/23 16:31:00 EST, Tablet, [facility], 188, cm, 04/26/23 13:06:00 EST, Height, 126.09, kg, 04/26/23 13:06:00 EST, Dry Weight Start Date: 05/07/23 Status: Ordered meloxicam 15 mg oral tablet 1 tablet = 15 mg, By Mouth, Daily, Take with food PRN back pain [facility], # 14 tablet, 0 Refills, Maintenance, 11/25/21 13:26:00 EDT, [facility], Partial fill upon patient request if the prescription is for a schedule II opioid drug., 188,... Start Date: 11/25/21 Stop Date: 12/09/21 Status: Ordered metFORMIN 750 mg oral tablet, extended release 1 tablet = 750 mg, By Mouth, Daily, [replaces the metformin 500mg bid], # 30 tablet, 5 Refills, Maintenance, 05/15/23 8:10:00 EST, ER Tablet, [facility], Partial [...] tablet, 0 Refills, Maintenance, pain, 06/19/23 23:14:00 EST,[facility], May partial fill., 06/19/23... Start Date: 06/19/23 Status: Ordered methadone 10 mg oral tablet See Instructions, By mouth. 2 tab in AM, 1.5 midday, 2 in evening;for pain. IDC10: G90.5 CRPS. 28 day supply. [facility]., # 154 tablet, 0 Refills, Maintenance, pain, 05/22/23 23:14:00 EST,[facility], May partial fill., 05/22/23... Start Date: 05/22/23 Status: Ordered methadone 10 mg oral tablet See Instructions, By mouth. 2 tab in AM, 1.5 midday, 2 in evening;for pain. IDC10: G90.5 CRPS. 28 day supply. [facility]., # 154 tablet, 0 Refills, Maintenance, pain, 07/17/23 23:14:00 EDT,[facility], August partial fill., 07/17/23... Start Date: 07/17/23 Status: Ordered methadone 10 mg oral tablet See Instructions, By mouth. 2 tab in AM, 1.5 midday, 2 in evening;for pain. IDC10: G90.5 CRPS. 28 day supply. [facility]., # 154 tablet, 0 Refills, Maintenance, pain, 04/24/23 22:44:00 EST,[facility], August partial fill., 188, [...] 5 Refills, Maintenance, 04/27/23 0:18:00 EST, Solution, [facility], please d/c all prior Rx/refills for semaglutide, liraglutide, dulaglutide, 188, cm, 04/26/23... Start Date: 04/27/23 Status: Ordered Narcan 4 mg/0.1 mL nasal spray = 4 mg, Nares, Both, Once, may repeat every 2 to 3 minutes until patient responds, # 2 each, 1 Refills, Soft Stop, 02/16/22 23:38:00 EDT, [facility], 188, cm, 02/16/22 13:07:00 [...] Date: 02/16/22 Status: Ordered PEN NEEDLES MIS [id number] PEN NEEDLES MIS [id number], See Instructions, # 100 each, 5 Refills, Maintenance, USE DAILY TYPE 2 DIABETES MELLITUS ON INSULIN WITH PEN, 08/25/22 16:39:00 EDT, 188, cm, 07/18/22 14:01:00 EDT, Height, 122.63, kg, 11/22/21 16:37:00 EDT, Dry Weight Start Date: 08/25/22 Status: Ordered PEN NEEDLES MIS [id number] PEN NEEDLES MIS [id number], See Instructions, # 150 each, 5 Refills, Maintenance, USE 2-5X/DAY TYPE 2 DIABETES MELLITUS ON LANTUS AND HUMALOG INSULIN WITH PEN, 04/30/23 9:00:00 EST, 188, cm, 04/26/23 13:06:00 EST, Height, 126.09, kg, 04/26/23 13:06:00 ES... Start Date: 04/30/23 Status: Ordered Pen [place], 31 G x 8 mm BD Ultra [...] 02/18/23 19:20:00 EST, Route to Pharmacy Electronically, [facility], 188, cm, 01/30/23 13:26:00 EDT, Height, 126, kg, 10/17/23 13:26:00 EDT, Dry Weight Start Date: 02/18/23 Status: Ordered spironolactone 25 mg oral tablet 25 mg, 1, tablet, By Mouth, Daily, Refills 0, Maintenance, 04/26/23 14:34:00 EST, Partial fill uponpatient request if the prescription is for a schedule II opioid drug. Start Date: 04/26/23 Status: Ordered Tab-A-Kelsie oral tablet 1 tablet, By Mouth, Daily, # 30 tablet, 5 Refills, Maintenance, 12/19/22 20:41:00 EDT, [facility], 30, TAKE 1 TABLET BY MOUTH EVERY DAY, 188, cm, 10/19/22 13:16:00 EDT, Height, 122.63, kg, 11/22/21 16:37:00 EDT, Dry Weight Start Date: 12/19/22 Status: Ordered tamsulosin 0.4 mg oral capsule 0.8 mg, 2, capsule, By Mouth, Daily, dose increase, # 60 capsule, Refills 11, Tot. Refills 11, Maintenance, 07/27/22 11:57:00 EDT, Route to Pharmacy Electronically, [facility], 188, cm, 07/18/22 14:01:00 EDT, Height, 122.63, kg, 11/22/21 16:... Start Date: 07/27/22 Status: Ordered Test Strips See Instructions, # 100 each, Refills 5, Tot. Refills 5, Maintenance, Precision Ganga strips (for Freestyle Tatyana glucometer). Type 2 diabetes mellitus on insulin (E11, Z79.4). Test 2-4x/day if symptoms, or sensor concerns., 02/08/23 10:36:00 EDT, [place]... Start Date: 02/08/23 Status: Ordered Test Strips [...] Intramuscular, Every 14 days, IM or subcutaneous. [facility]., # 2 mL, 5 Refills, Maintenance, 05/04/23 13:34:00 EST, [facility], 188, cm, 04/26/23 13:06:00 EST, Height, 126.09, kg, 04/26/23 13:06:00 EST, Dry Weight Start Date: 05/04/23 Status: Ordered tiZANidine 4 mg oral tablet 4 mg, 1, tablet, By Mouth, 3 times a day, PRN, # 90 tablet, Refills 11, Tot. Refills 11, Maintenance, as needed for muscle spasm, 08/18/22 8:03:00 EDT, Route to Pharmacy Electronically, [facility], 188, cm, 07/18/22 14:01:00 EDT, Height, 122... Start Date: 08/18/22 Status: Ordered Toujeo Max SoloStar 300 units/mL subcutaneous solution = 60 units, Subcutaneous Injection, Daily, # 12 mL, 11 Refills, Maintenance, 02/08/23 10:15:00 EDT,Solution, [facility], replaces Lantus due to insurance coverage, 188, cm, 01/30/23 13:26:00 EDT, Height, 126, kg, 01/30/23 13:26:00 EDT, Dry... Start Date: 02/08/23 Status: Ordered Tylenol Extra Strength 500 mg oral tablet 2 tablet = 1,000 mg, By Mouth, 3 times a day, # 30 tablet, 11 Refills, Maintenance, 03/24/21 21:00:00 EST, [facility], 188, cm, 03/22/21 14:17:00 EST, Height, 125.2, kg, 06/20/20 14:28:00 EST, Dry Weight Start Date: 03/24/21 Status: Ordered Vitamin D3 1000 intl units oral tablet 1 tablet, By Mouth, Daily, # 90 tablet, 4 Refills, Maintenance, 04/01/23 22:28:00 EST, [facility], 188, cm, 01/30/23 13:26:00 EDT, Height, [...] ? chr regional pain syndrome 4s/p Modified [place] procedure, repair of conjoined tendon of extensor [...] Team Personnel Name: Shoaib An RN Position: [facility] RN Supv Member Role: Primary Care Nurse Name: Vamshi Man MD Position: [facility] Physician - Primary Care Member Role: PCP Address: Address: [address] [place] [address] Name: Luz Potter Position: [facility] Outreach Member Role: Lifetime Consulting Physician Name: Miki Rodriguez MD Position: [facility] Renal MD Member Role: Lifetime Consulting Physician Address: Address: [address] [facility] [place] [address]- Care Team Related Persons Name: BRANDON MTZ Address: home [address] [place] [address] Name: BRANDON BARKER Address: home [address] [place] [address] Name: ROSALINDA BERTRAND Address: home [address] [place] [address]
--- OUTSIDE RECORDS SUMMARY | 2023-10-11 08:15 | XMS_ITS | Continuity of Care Document ---
Author Organization [facility] Address Unknown Care Team Providers Care Loan Secretary Name Role Phone Vamshi Man MD Primary Care Physician [place] [facility] [place] 04/23/21 [facility] Allergies, Adverse Reactions, Alerts [...] Note: sanofi-pasteur 10Location History: PH 11Location History: Eilssa Bertrand 12Result Comment: [11/27/2017] REceived at [facility] at [place], [place]; ordered by Dr Michael Oliveira 13Location [...] tablet, 5 Refills, Maintenance, 11/18/20 15:30:00 EDT, [facility], 188, cm, 09/22/20 8:33:00 EDT, Height, 125.2, kg, 06/20/20 14:28:00 EST, Dry Weight Start Date: 11/18/20 Status: Ordered atorvastatin 40 mg oral tablet 1 tablet, By Mouth, Daily, # 90 tablet, 1 Refills, [facility], 188, cm, 03/22/21 14:17:00EST, Height, 125.2, [...] capsule, 3 Refills, Maintenance, 03/30/20 21:36:00 EST, [facility], 185, cm, 02/25/20 10:29:00 EST, Height, 126.81, kg, 02/25/20 10:29:00 EST, Dry Weight Start Date: 03/30/20 Status: Ordered clotrimazole 1% topical cream 1 application, Topically, 2 times a day, apply to penile rash, # 30 Gm, 2 Refills, Maintenance, 01/07/20 14:49:00 EDT, Cream, [facility], 1 application Topically 2 times a day,Instr:apply to penile rash, 185, cm, 01/07/20 13:55:00 EDT, Heigh... Start Date: 01/07/20 Status: Ordered Cozaar 100 mg oral tablet 1 tablet = 100 mg, By Mouth, Daily in AM, # 30 tablet, 11 Refills, Maintenance, 09/22/20 9:41:00 EDT, Tablet, [facility], duplicate rx. original sent 09/16/19. remaining [...] 06/25/20 15:39:00 EST, Route to Pharmacy Electronically, [facility], Partial f... Start Date: 06/25/20 Status: Ordered diclofenac 1% topical gel = 2 Gm, Topically, 4 times a day, PRN for pain, (romanian) not to exceed: 16 gm/day/joint lower limb8 gm/day/joint of upper limb 32 gm/day may interchange for cream, # 100 Gm, 5 Refills, Maintenance,07/08/20 15:35:00 EDT, Gel, [facility] Start Date: 07/08/20 Status: Ordered docusate [...] 11 Refills, Maintenance, 03/03/21 21:23:00 EST, Solution, [facility], 188, cm, 02/24/21 16:26:00 EST, Height, [...] mL, 11 Refills, Maintenance, 01/14/21 18:16:00 EDT, [facility], 188, cm, 12/22/20 9:45:00 EDT, Height, 125.2, kg, 06/20/20 14:28:00EST, Dry Weight Start Date: 01/14/21 Status: Ordered latanoprost 0.005% ophthalmic solution 0 Refills, Maintenance, 05/11/20 16:57:00 EST Start Date: 05/11/20 Status: Ordered lidocaine 5% topical ointment See Instructions, 1 APPLICATION TOPICALLY 3 TIMES A DAY, # 70.88 Gm, 4 Refills, Acute, [facility], 14, 1 APPLICATION TOPICALLY 3 TIMES A DAY, 188, cm, 09/22/20 8:33:00 EDT, Height, 125.2, kg, 06/20/20 14:28:00 EST, Dry Weight Start Date: 11/08/20 Status: Ordered LORazepam 1 mg oral tablet See Instructions, PRN for anxiety, 2 tablets By Mouth 1 hours prior to MRI, # 2 tablet, 0 Refills, Acute 09/22/21 9:45:00 EDT, 09/22/20 9:43:00 EDT, Tablet, [facility], Partial fill upon patient request if the prescription is for a schedule... Start Date: 09/22/20 Stop Date: 09/22/21 Status: Ordered LORazepam 1 mg oral tablet See Instructions, PRN for anxiety, 2 tablets By Mouth 1 hours prior to MRI, # 2 tablet, 0 Refills, Maintenance, 04/15/21 10:58:00 EST, Tablet, [facility], 188, cm, 03/22/21 14:17:00 EST, Height, [...] 3 Refills, Maintenance, 07/08/20 15:40:00 EDT, Tablet, [facility], Duplicate rx-Original rx sent06/22/20. Resent., 188, cm, 07/08/20 13:42:00 EDT, He... Start Date: 07/08/20 Status: Ordered methadone 10 mg oral tablet See Instructions, By mouth. 2 tab in AM, 1.5 midday, 2 in evening;for pain. IDC10: G90.5 CRPS. 28 day supply. [facility]., # 154 tablet, 0 Refills, Maintenance, pain, 03/29/21 21:05:00 EST,[facility], August partial fill., 03/29/21... Start Date: 03/29/21 Status: Ordered methadone 10 mg oral tablet See Instructions, By mouth. 2 tab in AM, 1.5 midday, 2 in evening;for pain. IDC10: G90.5 CRPS. 28 day supply. [facility]., # 154 tablet, 0 Refills, Maintenance, pain, 04/26/21 0:34:00 EST, [facility], August partial fill., 04/26/21,... Start Date: 04/26/21 Status: Ordered Metoclopramide = 10 mg, By Mouth, 3 times a day before meals and bedtime, 0 Refills, Maintenance, 08/20/18 13:55:26 EDT Start Date: 08/20/18 Status: Ordered multivitamin Multiple Vitamins oral tablet 1 tablet, By Mouth, Daily, B complex multivitamin, # 30 tablet, 11 Refills, Maintenance, 12/22/20 10:52:00 EDT, [facility], Partial fill upon patient [...] Start Date: 05/15/18 Status: Ordered nystatin-triamcinolone topical 146735 u/gm-0.1% ointment 1 applicator, Topically, 3 times a day, to foreskin area FOR 3 DAYS then switch to other antifungal, # 15 Gm, 1 Refills, Maintenance, 07/08/20 15:34:00 EDT, [facility], 1 applicator Topically 3 times a [...] EDT Start Date: 08/20/18 Status: Ordered Pen [place], 31 G x 8 mm BD Ultra [...] 03/30/20 21:31:00 EST, Route to Pharmacy Electronically, [facility], 185, cm, 02/25/20 10:29:00 EST, Height, [...] solution 0.75 mL, Intramuscular, Every 14 days, [facility], # 5 mL, 5 Refills, Maintenance, 03/25/21 1:06:00 EST, [facility], 188, cm, 03/22/21 14:17:00 EST, Height, 125.2, kg, 06/20/20 14:28:00 EST, Dry Weight Start Date: 03/25/21 Status: Ordered tiZANidine 4 mg oral tablet 4 mg, 1, tablet, By Mouth, 3 times a day, PRN, # 90 tablet, Refills 11, Tot. Refills 11, Maintenance, as needed for muscle spasm, 07/08/20 15:40:00 EDT, Route to Pharmacy Electronically, [facility], 188, cm, 07/08/20 13:42:00 EDT, Height, 12... Start Date: 07/08/20 Status: Ordered traZODone 100 mg oral tablet TAKE ONE TO TWO TABLETS BY MOUTH AT BEDTIME NEEDED SZayra Morales Start Date: 05/11/20 Status: Ordered Tylenol Extra Strength 500 mg oral tablet 2 tablet = 1,000 mg, By Mouth, 3 times a day, # 30 tablet, 11 Refills, Maintenance, 03/24/21 21:00:00 EST, [facility], 188, cm, 03/22/21 14:17:00 EST, Height, [...]
--- OUTSIDE RECORDS SUMMARY | 2023-10-11 08:15 | XMS_ITS | Continuity of Care Document ---
Author Organization [facility] Address [address] [place] [address]- Care Team Providers Care Home Care Attendant Name Role Phone Vamshi Man MD Primary Care Physician [phone] [facility]counter [facility] Date(s): 11/04/19 - 12/04/19 [facility]/[address] [address]- [place] States Allergies, Adverse Reactions, Alerts Substance Reaction Severity [...] Bertrand 11Result Comment: [11/27/2017] REceived at [facility] at [place], [place]; ordered by Dr Michael Oliveira 12Location History: Hospital ER 13Admin Note: VIS GIVEN 14Admin Note: Sanofi-P[employer]ur VIS 02/12/2009 15Admin Note: 2nd 16Admin Note: GIVEN BY AXEL. 17Admin Note: third Medications albuterol CFC free [...] 11/04/19 15:57:00 EDT, Route to Pharmacy Electronically, [facility], 185, cm, 06/24/19 13:00:00 EDT, Height, [...] 1 Refills, Maintenance, 06/24/19 15:23:00 EDT, Cream, [facility], 1 application Topically 2 times a day,Instr:apply to penile rash, 185, cm, 06/24/19 13:00:00 EDT, [facility]..Zayra Start Date: 06/24/19 Status: Ordered Cozaar 100 mg oral tablet 1 tablet = 100 mg, By Mouth, Daily in AM, # 30 tablet, 11 Refills, Maintenance, 09/16/19 15:00:00 EDT, Tablet, [facility], 185, cm, 06/24/19 13:00:00 EDT, Height, 127.72, kg, 05/06/19 13:41:00 EST, Dry Weight Start Date: 09/16/19 Status: Ordered diclofenac 1% topical gel = 2 Gm, Topically, 4 times a day, PRN for pain, (saudi arabian) not to exceed: 16 gm/day/joint lower limb8 gm/day/joint of upper limb 32 gm/day, # 100 Gm, 1 Refills, Maintenance, 10/27/19 10:15:00 EDT, Gel, [facility], 185, cm, 06/24/19 13:00:... Start Date: [...] 1 Refills, Maintenance, 12/02/19 10:07:00 EDT, Solution, [facility], duplicate rx. remaining refills sent. original [...] tablet, 1 Refills, Maintenance, 04/15/19 5:02:00 EST, [facility], 185, cm, 02/12/19 9:28:00 EDT, Height, 123.7, kg, 08/22/18 12:59:00 EDT, Dry Weight Start Date: 04/15/19 Status: Ordered Lantus Solostar Pen 100 units/mL subcutaneous solution = 90 units, Subcutaneous Infusion, Daily at bedtime, # 15 mL, 5 Refills, Maintenance, 10/09/19 15:22:00 EDT, [facility], duplicate rx. original rx sent 03/18/19. remaining refills sent, 185,cm, 06/24/19 13:00:00 EDT, Height, 127.72, kg, 04/17... Start Date: 10/09/19 Status: Ordered latanoprost 0.005% ophthalmic solution 1 drops, Eyes, Both, Daily at bedtime, cover gap- Mastic Floor Layer Dr Broussard, # 2.5 mL, 1 Refills, Maintenance, 02/25/14 10:47:09, Ophth Solution, 1 drops Eyes, Both Daily at bedtime,Instr:cover gap-Mastic Floor Layer Dr Broussard Start Date: 02/25/14 Status: Ordered lidocaine 4% topical cream 1 application, Topically, 3 times a day, may interchange 3-5% cream or ointment or 2% gel per insurance coverage., # 60 Gm, 5 Refills, Maintenance, 10/28/19 20:11:00 EDT, [facility], 1 application Topically 3 times a day,Instr:august interchang... Start Date: 10/28/19 Status: Ordered Linzess 145 mcg oral capsule TAKE 1 CAPSULE BY MOUTH 30 MINUTES BEFORE MEAL (constipation) Start Date: 03/31/17 Status: Ordered Lipitor 40 mg oral tablet 1 tablet = 40 mg, By Mouth, Daily, # 30 tablet, 5 Refills, Maintenance, 11/04/19 15:57:00 EDT, [facility], 185, cm, 06/24/19 13:00:00 EDT, Height, 127.72, kg, 05/06/19 13:41:00 EST, Dry Weight Start Date: 11/04/19 Status: Ordered metFORMIN 500 mg oral tablet 1 tablet = 500 mg, By Mouth, 2 times a day, with meals. Replaces metformin ER, # 60 tablet, 11 Refills, Maintenance, 06/24/19 15:02:00 EDT, Tablet, [facility], 185, cm, 06/24/19 13:00:00 EDT, Height, [...] pain. IDC10: G90.5 CRPS. 28 day supply. [facility]., # 154 tablet, 0 Refills, Maintenance, pain, 11/10/19 12:54:00 EDT,[facility], August partial fill., 11/10/19... Start Date: 11/10/19 Status: Ordered methadone 10 mg oral tablet See Instructions, By mouth. 2 tab in AM, 1.5 midday, 2 in evening;for pain. IDC10: G90.5 CRPS. 28 day supply. [facility]., # 154 tablet, 0 Refills, Maintenance, pain, 12/08/19 12:56:00 EDT,[facility], August partial fill., 12/08/19... Start Date: 12/08/19 [...] Start Date: 05/15/18 Status: Ordered nystatin topical 872378 u/gm cream 1 application, Topically, 2 times a day, for fungal rash, # 30 Gm, 0 Refills, Maintenance, 09/15/2014:01:00 EDT, Cream, [facility], 1 application Topically 2 times a day,x14 days,Instr:forfungal rash, 185, cm, 06/24/19 13:00:00 EDT, Height... Start Date: 09/16/19 Stop Date: 09/30/19 Status: Ordered nystatin-triamcinolone topical 723661 u/gm-0.1% ointment 1 applicator, Topically, 3 times [...] EDT Start Date: 08/20/18 Status: Ordered Pen [place], 31 G x 8 mm BD Ultra [...] 11/29/18 11:27:43 EDT, Route to Pharmacy Electronically, [id number], [facility] Start Date: 11/29/18 Status: Ordered Testosterone Cypionate = 0.75 mg, Intramuscular, Every 14 days, Adm. today to Lot [id number] exp: 02/2020, 0 Refills, Maintenance, 11/14/18 14:06:08 EDT Start Date: 11/14/18 Status: Ordered testosterone enanthate 200 mg/mL intramuscular solution 0.75 mL, Intramuscular, Every 14 days, [facility], # 5 mL, 5 Refills, Maintenance, 05/06/19 15:06:00 EST, [facility], 185, cm, 05/06/19 13:41:00 EST, Height, 127.72, kg, 05/06/19 13:41:00 EST, Dry Weight Start Date: 05/06/19 Status: Ordered tiZANidine 4 mg oral tablet 4 mg, 1, tablet, By Mouth, 3 times a day, PRN, # 90 tablet, Refills 11, Tot. Refills 11, Maintenance, as needed for muscle spasm, 02/04/19 21:34:51 EDT, Route to Pharmacy Electronically, NCPDP_[id number], [facility] Start Date: 02/04/19 Status: Ordered Problem List Condition Effective Dates Status Health Status Inform ant Alcohol abuse - per MH evalmargot 2016(Confirmed) Active Allergic rhinitis(Confirmed) Active Anxiety [...] ? chr regional pain syndrome 4s/p Modified [place] procedure, repair of conjoined tendon of extensor [...]
--- OUTSIDE RECORDS SUMMARY | 2023-10-11 08:15 | XMS_ITS | Continuity of Care Document ---
Author Organization [facility] Address [address] [place] [address]- Care Team Providers Care Binder Roller Name Role Phone Vamshi Man MD Primary Care Physician [phone] Encounter [facility] Date(s): 07/26/22 - 11/23/22 [facility]/[place] [address]- Attending Physician: Vamshi Man MD Admitting Physician: [...] and Recorded Vaccine Date Status Refusal Reason [id number] 12y+ bivalent booster vax 02/16/22 Given pneumococcal 20-valent conjugate vaccine 02/16/22 Given Influenza Virus Vaccine (oldterm) 1 01/27/22 Recor ded Influenza Virus Vaccine (oldterm) 01/26/21 Recorde d SARS-CoV-2 mRNA ([id number]) vax 11/11/21 Given SARS-CoV-2 (COVID-19) mRNA BNT-162b2 [...] Elissa Bertrand 13Result Comment: [11/27/2017] REceived at [facility] [place], [place]; ordered by Dr Michael Oliveira 14Location History: Hospital ER 15Admin Note: VIS 01/324/12 GIVEN 16Admin Note: Sanofi-Pasteur VIS 02/12/2009 17Admin [...] tablet, 5 Refills, Maintenance, 09/06/22 21:30:00 EDT, [facility], 188, cm, 07/18/22 14:01:00 EDT, Height, 122.63, kg, 11/22/21 16:37:00 EDT, Dry Weight Start Date: 09/06/22 Status: Ordered atorvastatin 40 mg oral tablet See Instructions, TAKE 1 TABLET BY MOUTH EVERY DAY, # 90 tablet, 1 Refills, Maintenance, 11/02/22 16:19:00 EDT, [facility], 188, cm, 10/19/22 13:16:00 EDT, Height, [...] 0 Refills, Maintenance, 05/15/22 16:24:00 EST, Tablet, [facility], Partial fill upon patient request if [...] 2 Refills, Maintenance, 04/27/22 23:43:00 EST, Cream, [facility], 1 application Topically 2 times a [...] 11 Refills, Maintenance, 04/15/22 13:02:00 EST, Gel, [facility]... Start Date: 04/15/22 Status: Ordered docusate [...] 0 Refills, Maintenance, 09/03/22 13:58:00 EDT, Tablet, [facility], 188, cm, 07/18/22 14:01:00 EDT, Height, 122.63, kg, 11/22/21... Start Date: 09/03/22 Status: Ordered fexofenadine 60 mg oral tablet 1 tablet = 60 mg, By Mouth, 2 times a day, PRN for allergy symptoms, # 20 tablet, 0 Refills, Maintenance, 09/03/22 13:58:00 EDT, Tablet, [facility], Partial fill upon patient request [...] 02/16/22 Status: Ordered FREESTYLE PHYLLIS LITE FREESTYLE PHYLLSI LITE, See Instructions, # 100 each, 10 [...] May cause drowsiness, do notdrive after taking American, # 28 tablet, 0 Refills, Maintenance, 04/07/22 15:51:00 EST, [facility], 188, cm, 02/16/22 13:07:00 EDT, Heigh... Start [...] 11 Refills, Maintenance, 11/28/21 21:27:00 EDT, Solution, [facility], 188, cm, 11/22/21 16:37:00 EDT, Height, [...] mL, 5 Refills, Maintenance, 08/02/22 14:51:00 EDT, [facility], 188, cm, 07/18/22 14:01:00 EDT, Height, 122.63,kg, 11/22/21 16:37:00 EDT, Dry Weight Start Date: 08/02/22 Status: Ordered latanoprost 0.005% ophthalmic solution 0 Refills, Maintenance, 05/11/20 16:57:00 EST Start Date: 05/11/20 Status: Ordered lidocaine 5% topical ointment See Instructions, PRN Pain , Moderate, 1 APPLICATION TOPICALLY 3 TIMES A DAY, # 50 Gm, 5 Refills, Maintenance, 12/22/21 7:28:00 EDT, [facility], same Rx was sent 11/11 w/ [...] 0 Refills, Maintenance, 01/12/22 7:27:00 EDT, Tablet, [facility], 188, cm, 12/26/21 14:06:00 EDT, Height, 122.63, kg, 11/22/21 16:37:00 EDT, Dry Weight Start Date: 01/12/22 Status: Ordered losartan 100 mg oral tablet See Instructions, TAKE 1 TABLET BY MOUTH DAILY IN AM, # 30 tablet, 4 Refills, Maintenance, 10/06/2315:25:00 EDT, [facility], 188, cm, 07/18/22 14:01:00 EDT, Height, 122.63, kg, 11/22/21 16:37:00 EDT, Dry Weight Start Date: 10/05/22 Status: Ordered LUBRIC TEARS CALE 0.4-0.3% Milliliters INSTILL 1 DROP FOUR TIMES DAILY EACH EYE Start Date: 05/11/20 Status: Ordered magnesium oxide 400 mg oral tablet 1 tablet = 400 mg, By Mouth, Daily, # 30 tablet, 11 Refills, Maintenance, 04/27/22 15:29:00 EST, Tablet, [facility], Partial fill upon patient request if the prescription is for a schedule II opioid drug., 188, cm, 04/27/22 13:44:00 EST, Hei... Start Date: 04/27/22 Status: Ordered meloxicam 15 mg oral tablet 1 tablet = 15 mg, By Mouth, Daily, Take with food PRN back pain American, # 14 tablet, 0 Refills, Maintenance, 11/25/21 13:26:00 EDT, [facility], Partial fill upon patient request if the prescription is for a schedule II opioid drug., 188,... Start Date: 11/25/21 Stop Date: 12/09/21 Status: Ordered metFORMIN 750 mg oral tablet, extended release 1 tablet = 750 mg, By Mouth, Daily, [replaces the metformin 500mg bid], # 30 tablet, 5 Refills, Maintenance, 11/01/22 8:40:00 EDT, ER Tablet, [facility], [...] tablet, 0 Refills, Maintenance, pain, 12/05/22 17:25:00 EDT,[facility], May partial fill., 12/05/22... Start Date: 12/05/22 Status: Ordered methadone 10 mg oral tablet See Instructions, By mouth. 2 tab in AM, 1.5 midday, 2 in evening;for pain. IDC10: G90.5 CRPS. 28 day supply. [facility]., # 154 tablet, 0 Refills, Maintenance, pain, 01/02/23 17:25:00 EDT,[facility], May partial fill., 01/02/23... Start Date: 01/02/23 Status: Ordered methadone 10 mg oral tablet See Instructions, By mouth. 2 tab in AM, 1.5 midday, 2 in evening;for pain. IDC10: G90.5 CRPS. 28 day supply. [facility]., # 154 tablet, 0 Refills, Maintenance, pain, 11/07/22 17:25:00 EDT,[facility], August partial fill., 11/07/22... Start Date: 11/07/22 Status: Ordered methadone 10 mg oral tablet See Instructions, By mouth. 2 tab in AM, 1.5 midday, 2 in evening;for pain. IDC10: G90.5 CRPS. 28 day supply. [facility]., # 154 tablet, 0 Refills, Maintenance, pain, 04/25/22 23:30:00 EST,[facility], August partial fill., 04/25/22... 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 Start Date: 04/27/22 Status: Ordered Singulair 10 mg oral tablet 10 mg, 1, tablet, By Mouth, Daily, # 90 tablet, Refills 3, Tot. Refills 3, Maintenance, 03/30/20 21:31:00 EST, Route to Pharmacy Electronically, [facility], 185, cm, 02/25/20 10:29:00 EST, Height, 126.81, kg, 02/25/20 10:29:00 EST, Dry Weight Start Date: 03/30/20 Status: Ordered tamsulosin 0.4 mg oral capsule 0.8 mg, 2, capsule, By Mouth, Daily, dose increase, # 60 capsule, Refills 11, Tot. Refills 11, Maintenance, 07/27/22 11:57:00 EDT, Route to Pharmacy Electronically, [facility], 188, cm, 07/18/22 14:01:00 EDT, Height, [...] Intramuscular, Every 14 days, IM or subcutaneous. [facility]., # 2 mL, 5 Refills, Maintenance, 10/27/22 17:23:00 EDT, [facility], 188, cm, 10/19/22 13:16:00 EDT, Height, 122.63, kg, 11/22/21 16:37:00 EDT, Dry Weight Start Date: 10/27/22 Status: Ordered tiZANidine 4 mg oral tablet 4 mg, 1, tablet, By Mouth, 3 times a day, PRN, # 90 tablet, Refills 11, Tot. Refills 11, Maintenance, as needed for muscle spasm, 08/18/22 8:03:00 EDT, Route to Pharmacy Electronically, [facility], 188, cm, 07/18/22 14:01:00 EDT, Height, 122... Start Date: 08/18/22 Status: Ordered traZODone 100 mg oral tablet TAKE ONE TO TWO TABLETS BY MOUTH AT BEDTIME NEEDED S. McAnulty Start Date: 05/11/20 Status: Ordered Tylenol Extra Strength 500 mg oral tablet 2 tablet = 1,000 mg, By Mouth, 3 times a day, # 30 tablet, 11 Refills, Maintenance, 03/24/21 21:00:00 EST, [facility], 188, cm, 03/22/21 14:17:00 EST, Height, [...] the lateral collateral ligament 12/29/10- Dr Calin Mlegar. 5Arthroscopic subacromial decompression with debridement of undersurface partial cuff tear, & distal clavicle excision AC joint arthritis 2008 Social History Social History Type Response Smoking Status Former smoker, quit more than 30 days ago entered on: 07/18/22 Sex Male Patient Care team information Care Team Personnel Name: Shoaib An RN Position: [facility] RN Supv Member Role: Primary Care Nurse Name: Donovan DE LOS SANTOS, Vamshi Oshea Position: [facility] Physician - Primary Care Member Role: PCP Address: Address: [address] [place] [address]- Name: Michael DE LOS SANTOS, Miki Position: [facility] Renal MD Member Role: Lifetime Consulting Physician Address: Address: [address] [facility] [place] [address]- Care Team Related Persons Name: BRANDON MTZ Address: home [address] [place] [address] Name: BRANDON BARKER Address: home [address] [place] [address] Name: ROSALINDA BERTRAND Address: home [address] [place] [address]
--- OUTSIDE RECORDS SUMMARY | 2023-10-11 08:15 | XMS_ITS | Continuity of Care Document ---
Author Organization [facility] Address [address] [place] [address]- Care Team Providers Care Ice House Supervisor Name Role Phone Vamshi Man MD Primary Care Physician Encounter [facility] [place] [facility] Date(s): 09/07/20 - 10/21/20 [facility] [address] [address]- Attending Physician: Vamshi Man MD Admitting Physician: [...] Elissa Bertrand 12Result Comment: [11/27/2017] REceived at [facility] at [place], [place]; ordered by Dr Michael [...] 03/30/20 21:31:00 EST, Route to Pharmacy Electronically, [facility], dupilcate rx. original sent 11/04/19. remaining [...] capsule, 3 Refills, Maintenance, 03/30/20 21:36:00 EST, [facility], 185, cm, 02/25/20 10:29:00 EST, Height, 126.81, kg, 02/25/20 10:29:00 EST, Dry Weight Start Date: 03/30/20 Status: Ordered clotrimazole 1% topical cream 1 application, Topically, 2 times a day, apply to penile rash, # 30 Gm, 2 Refills, Maintenance, 01/07/20 14:49:00 EDT, Cream, [facility], 1 application Topically 2 times a day,Instr:apply to penile rash, 185, cm, 01/07/20 13:55:00 EDT, Heigh... Start Date: 01/07/20 Status: Ordered Cozaar 100 mg oral tablet 1 tablet = 100 mg, By Mouth, Daily in AM, # 30 tablet, 11 Refills, Maintenance, 09/22/20 9:41:00 EDT, Tablet, [facility], duplicate rx. original sent 09/16/19. [...] 06/25/20 15:39:00 EST, Route to Pharmacy Electronically, [facility], Partial f... Start Date: 06/25/20 Status: Ordered diclofenac 1% topical gel = 2 Gm, Topically, 4 times a day, PRN for pain, (azeri) not to exceed: 16 gm/day/joint lower limb8 gm/day/joint of upper limb 32 gm/day may interchange for cream, # 100 Gm, 5 Refills, Maintenance,07/08/20 15:35:00 EDT, Gel, [facility] Start Date: 07/08/20 Status: Ordered [...] 11 Refills, Maintenance, 02/15/20 21:05:00 EST, Solution, [facility], 185, cm, 01/07/20 13:55:00 EDT, Height, [...] mL, 3 Refills, Maintenance, 07/08/20 15:42:00 EDT, [facility], Duplicate rx-Original rx sent 06/22/20. Resent., 188, cm, 07/08/20 13:42:00 EDT, Height, 125.2, kg, 06/20/20 14:28:00 EST,... Start Date: 07/08/20 Status: Ordered latanoprost 0.005% ophthalmic solution 0 Refills, Maintenance, 05/11/20 16:57:00 EST Start Date: 05/11/20 Status: Ordered Lipitor 40 mg oral tablet 1 tablet = 40 mg, By Mouth, Daily, # 90 tablet, 3 Refills, Maintenance, 03/30/20 21:30:00 EST, [facility], duplicate rx. original sent 11/04/19. remaining refill sent., 185, cm, 02/25/20 10:29:00 EST, Height, 126.81, kg, 02/25/20 10:29:00 EST... Start Date: 03/30/20 Status: Ordered LORazepam 1 mg oral tablet See Instructions, PRN for anxiety, 2 tablets By Mouth 1 hours prior to MRI, # 2 tablet, 0 Refills, Acute 09/22/21 9:45:00 EDT, 09/22/20 9:43:00 EDT, Tablet, [facility], Partial fill upon patient request [...] 3 Refills, Maintenance, 07/08/20 15:40:00 EDT, Tablet, [facility], Duplicate rx-Original rx sent06/22/20. Resent., 188, cm, 07/08/20 13:42:00 EDT, He... Start Date: 07/08/20 Status: Ordered methadone 10 mg oral tablet See Instructions, By mouth. 2 tab in AM, 1.5 midday, 2 in evening;for pain. IDC10: G90.5 CRPS. 28 day supply. [facility]., # 154 tablet, 0 Refills, Maintenance, pain, 10/12/20 9:38:00 EDT, [facility], May partial fill., 10/12/20,... Start Date: 10/12/20 Status: Ordered methadone 10 mg oral tablet See Instructions, By mouth. 2 tab in AM, 1.5 midday, 2 in evening;for pain. IDC10: G90.5 CRPS. 28 day supply. [facility]., # 154 tablet, 0 Refills, Maintenance, pain, 11/09/20 9:38:00 EDT, [facility], May partial fill., 11/09/20,... Start Date: [...] Start Date: 05/15/18 Status: Ordered nystatin-triamcinolone topical 951244 u/gm-0.1% ointment 1 applicator, Topically, 3 times a day, to foreskin area FOR 3 DAYS then switch to other antifungal, # 15 Gm, 1 Refills, Maintenance, 07/08/20 15:34:00 EDT, [facility], 1 applicator Topically 3 times [...] EDT Start Date: 08/20/18 Status: Ordered Pen Holliday, 31 G x 8 mm BD Ultra [...] 03/30/20 21:31:00 EST, Route to Pharmacy Electronically, [facility], 185, cm, 02/25/20 10:29:00 EST, [...] solution 0.75 mL, Intramuscular, Every 14 days, [facility], # 5 mL, 5 Refills, Maintenance, 08/29/20 21:33:00 EDT, [facility], 188, cm, 07/08/20 13:42:00 EDT, Height, 125.2, kg, 06/20/20 14:28:00 EST, Dry Weight Start Date: 08/29/20 Status: Ordered tiZANidine 4 mg oral tablet 4 mg, 1, tablet, By Mouth, 3 times a day, PRN, # 90 tablet, Refills 11, Tot. Refills 11, Maintenance, as needed for muscle spasm, 07/08/20 15:40:00 EDT, Route to Pharmacy Electronically, [facility], 188, cm, 07/08/20 13:42:00 EDT, [...] ? chr regional pain syndrome 4s/p Modified [place] procedure, repair of conjoined tendon of extensor [...]
--- OUTSIDE RECORDS SUMMARY | 2023-10-11 08:15 | XMS_ITS | Continuity of Care Document ---
Author Organization [facility] Address [address] [place] [address]- Care Team Providers Care Per Diem Rn Name Role Phone Vamshi Man MD Primary Care Physician [phone] Encounter [facility] Date(s): 11/04/19 - 12/04/19 [facility]/[address] [address]- [place] States Allergies, Adverse Reactions, Alerts Substance Reaction [...] 11/08/2010 Fluzone given 7Admin Note: ADMINISTERED BY R.NZayra 8Admin Note: sanofi-pasteur 9Location History: PH 10Location History: Elissa Bertrand 11Result Comment: [11/27/2017] REceived at [facility] at [place], [place]; ordered by Dr Michael Oliveira 12Location [...] 11/04/19 15:57:00 EDT, Route to Pharmacy Electronically, [facility], 185, cm, 06/24/19 13:00:00 EDT, Height, [...] 1 Refills, Maintenance, 06/24/19 15:23:00 EDT, Cream, [facility], 1 application Topically 2 times a day,Instr:apply to penile rash, 185, cm, 06/24/19 13:00:00 EDT, Francheska..Zayra Start Date: 06/24/19 Status: Ordered Cozaar 100 mg oral tablet 1 tablet = 100 mg, By Mouth, Daily in AM, # 30 tablet, 11 Refills, Maintenance, 09/16/19 15:00:00 EDT, Tablet, [facility], 185, cm, 06/24/19 13:00:00 EDT, Height, 127.72, kg, 05/06/19 13:41:00 EST, Dry Weight Start Date: 09/16/19 Status: Ordered diclofenac 1% topical gel = 2 Gm, Topically, 4 times a day, PRN for pain, (kuwaiti) not to exceed: 16 gm/day/joint lower limb8 gm/day/joint of upper limb 32 gm/day, # 100 Gm, 1 Refills, Maintenance, 10/27/19 10:15:00 EDT, Gel, [facility], 185, cm, 06/24/19 13:00:... Start Date: [...] 1 Refills, Maintenance, 12/02/19 10:07:00 EDT, Solution, [facility], duplicate rx. remaining refills sent. original [...] tablet, 1 Refills, Maintenance, 04/15/19 5:02:00 EST, [facility], 185, cm, 02/12/19 9:28:00 EDT, Height, 123.7, kg, 08/22/18 12:59:00 EDT, Dry Weight Start Date: 04/15/19 Status: Ordered Lantus Solostar Pen 100 units/mL subcutaneous solution = 90 units, Subcutaneous Infusion, Daily at bedtime, # 15 mL, 5 Refills, Maintenance, 10/09/19 15:22:00 EDT, [facility], duplicate rx. original rx sent 03/18/19. remaining refills sent, 185,cm, 06/24/19 13:00:00 EDT, Height, 127.72, kg, 04/17... Start Date: 10/09/19 Status: Ordered latanoprost 0.005% ophthalmic solution 1 drops, Eyes, Both, Daily at bedtime, cover gap- Shells Inspector Dr Broussard, # 2.5 mL, 1 Refills, Maintenance, 02/25/14 10:47:09, Ophth Solution, 1 drops Eyes, Both Daily at bedtime,Instr:cover gap-Shells Inspector Dr Broussard Start Date: 02/25/14 Status: Ordered lidocaine 4% topical cream 1 application, Topically, 3 times a day, may interchange 3-5% cream or ointment or 2% gel per insurance coverage., # 60 Gm, 5 Refills, Maintenance, 10/28/19 20:11:00 EDT, [facility], 1 application Topically 3 times a day,Instr:august interchang... Start Date: 10/28/19 Status: Ordered Linzess 145 mcg oral capsule TAKE 1 CAPSULE BY MOUTH 30 MINUTES BEFORE MEAL (constipation) Start Date: 03/31/17 Status: Ordered Lipitor 40 mg oral tablet 1 tablet = 40 mg, By Mouth, Daily, # 30 tablet, 5 Refills, Maintenance, 11/04/19 15:57:00 EDT, [facility], 185, cm, 06/24/19 13:00:00 EDT, Height, 127.72, kg, 05/06/19 13:41:00 EST, Dry Weight Start Date: 11/04/19 Status: Ordered metFORMIN 500 mg oral tablet 1 tablet = 500 mg, By Mouth, 2 times a day, with meals. Replaces metformin ER, # 60 tablet, 11 Refills, Maintenance, 06/24/19 15:02:00 EDT, Tablet, [facility], 185, cm, 06/24/19 13:00:00 EDT, Height, [...] pain. IDC10: G90.5 CRPS. 28 day supply. [facility]., # 154 tablet, 0 Refills, Maintenance, pain, 11/10/19 12:54:00 EDT,[facility], August partial fill., 11/10/19... Start Date: 11/10/19 Status: Ordered methadone 10 mg oral tablet See Instructions, By mouth. 2 tab in AM, 1.5 midday, 2 in evening;for pain. IDC10: G90.5 CRPS. 28 day supply. [facility]., # 154 tablet, 0 Refills, Maintenance, pain, 12/08/19 12:56:00 EDT,[facility], August partial fill., 12/08/19... Start Date: [...] Start Date: 05/15/18 Status: Ordered nystatin topical 610595 u/gm cream 1 application, Topically, 2 times a day, for fungal rash, # 30 Gm, 0 Refills, Maintenance, 09/15/2014:01:00 EDT, Cream, [facility], 1 application Topically 2 times a day,x14 days,Instr:forfungal rash, 185, cm, 06/24/19 13:00:00 EDT, Height... Start Date: 09/16/19 Stop Date: 09/30/19 Status: Ordered nystatin-triamcinolone topical 567122 u/gm-0.1% ointment 1 applicator, Topically, 3 times [...] EDT Start Date: 08/20/18 Status: Ordered Pen Lohman, 31 G x 8 mm BD Ultra [...] 11/29/18 11:27:43 EDT, Route to Pharmacy Electronically, [id number], [facility] Start Date: 11/29/18 Status: Ordered Testosterone Cypionate = 0.75 mg, Intramuscular, Every 14 days, Adm. today to Lot [id number] exp: 02/2020, 0 Refills, Maintenance, 11/14/18 14:06:08 EDT Start Date: 11/14/18 Status: Ordered testosterone enanthate 200 mg/mL intramuscular solution 0.75 mL, Intramuscular, Every 14 days, [facility], # 5 mL, 5 Refills, Maintenance, 05/06/19 15:06:00 EST, [facility], 185, cm, 05/06/19 13:41:00 EST, Height, 127.72, kg, 05/06/19 13:41:00 EST, Dry Weight Start Date: 05/06/19 Status: Ordered tiZANidine 4 mg oral tablet 4 mg, 1, tablet, By Mouth, 3 times a day, PRN, # 90 tablet, Refills 11, Tot. Refills 11, Maintenance, as needed for muscle spasm, 02/04/19 21:34:51 EDT, Route to Pharmacy Electronically, NCPDP_[id number], [facility] Start Date: 02/04/19 Status: Ordered Problem List Condition Effective Dates Status Health Status Inform ant Alcohol abuse - per MH evperez 2016(Confirmed) Active Allergic rhinitis(Confirmed) Active Anxiety disorder(Confirmed) [...] ? chr regional pain syndrome 4s/p Modified [place] procedure, repair of conjoined tendon of extensor [...]
--- OUTSIDE RECORDS SUMMARY | 2023-10-11 08:15 | XMS_ITS | Continuity of Care Document ---
Author Organization [facility] Address [address] [place] [address]- Care Team Providers Care Carbon Paper Coating Machine Setter Name Role Phone Vamshi Man MD Primary Care Physician [phone] Encounter [facility] [place] Date(s): 11/15/21 - 12/15/21 [facility]/[place] [address]- [place] Allergies, Adverse Reactions, Alerts Substance Reaction Severity Status Latex RASH Active Other Food Allergy fresh peaches - itch y mouth, throat and lips swell Active penicillin 1 rash Resolved 1rash per mother as child. Did take a penicillin for treatment of H pylori per pt w/o problem. Immunizations Given and Recorded Vaccine Date Status Refusal Reason SARS-CoV-2 mRNA ([id number]) vax 11/11/21 Given SARS-CoV-2 (COVID-19) mRNA BNT-162b2 [...] at [facility] [place], [place]; ordered by Dr Michael Oliveira 13Location [...] 7x/wk total. Dx: E11, 11/18/20 15:30:00 EDT, [facility], 188, cm, 09/22/20 8:33:00 EDT, Height, [...] tablet, 5 Refills, Maintenance, 11/20/21 13:03:00 EDT, [facility], 188, cm, 11/11/21 12:46:00 EDT, Height, 125.2, kg, 06/20/20 14:28:00 EST, Dry Weight Start Date: 11/20/21 Status: Ordered atorvastatin 40 mg oral tablet 1 tablet, By Mouth, Daily, # 90 tablet, 1 Refills, [facility], 188, cm, 09/15/21 12:49:00EDT, Height, 125.2, [...] 2 Refills, Maintenance, 09/15/21 14:49:00 EDT, Cream, [facility], 1 application Topically 2 times a [...] 06/25/20 15:39:00 EST, Route to Pharmacy Electronically, [facility], Partial f... Start Date: 06/25/20 Status: Ordered diclofenac 1% topical gel = 2 Gm, Topically, 4 times a day, PRN for pain, (guyanese) not to exceed: 16 gm/day/joint lower limb8 gm/day/joint of upper limb 32 gm/day may interchange for cream, # 100 Gm, 5 Refills, Maintenance,07/08/20 15:35:00 EDT, Gel, [facility] Start Date: 07/08/20 Status: Ordered docusate [...] May cause drowsiness, do notdrive after taking Mauritanian, # 28 tablet, 0 Refills, Maintenance, 12/09/21 13:27:00 EDT, [facility], 188, cm, 11/22/21 16:37:00 EDT, Heigh... Start Date: 12/09/21 Stop Date: 12/23/21 Status: [...] 11 Refills, Maintenance, 11/28/21 21:27:00 EDT, Solution, [facility], 188, cm, 11/22/21 16:37:00 EDT, Height, 122.63, kg, 11/22/21 16:37:00 EDT, Dry We... Start Date: 11/28/21 Status: Ordered Jardiance 10 mg oral tablet 1 tablet, By Mouth, Daily in AM, # 30 tablet, 11 Refills, Maintenance, 07/25/21 20:18:00 EDT, [facility], 188, cm, 06/28/21 16:20:00 EDT, Height, [...] mL, 11 Refills, Maintenance, 01/14/21 18:16:00 EDT, [facility], 188, cm, 12/22/20 9:45:00 EDT, Height, 125.2, kg, 06/20/20 14:28:00EST, Dry Weight Start Date: 01/14/21 Status: Ordered latanoprost 0.005% ophthalmic solution 0 Refills, Maintenance, 05/11/20 16:57:00 EST Start Date: 05/11/20 Status: Ordered lidocaine 5% topical ointment See Instructions, PRN Pain , Moderate, 1 APPLICATION TOPICALLY 3 TIMES A DAY, # 50 Gm, 5 Refills, Maintenance, 11/11/21 13:27:00 EDT, [facility], 1 APPLICATION TOPICALLY 3 TIMES A DAY,PRN:Pain , Moderate, 188, cm, 11/11/21 12:46:00 EDT, [facility]... Start Date: 11/11/21 Status: Ordered LORazepam 1 mg oral tablet See Instructions, PRN for anxiety, 2 tablets By Mouth 1 hours prior to MRI, # 2 tablet, 1 Refills, Maintenance, 05/25/21 10:06:00 EST, Tablet, [facility], 188, cm, 05/25/21 9:26:00 EST, Height, 125.2, kg, 06/20/20 14:28:00 EST, Dry Weight Start Date: 05/25/21 Status: Ordered losartan 100 mg oral tablet 1 tablet, By Mouth, Daily in AM, # 30 tablet, 5 Refills, [facility], 188, cm, 09/15/21 12:49:00 EDT, Height, 125.2, kg, 06/20/20 14:28:00 EST, Dry Weight Start Date: 10/04/21 Status: Ordered LUBRIC TEARS CALE 0.4-0.3% [place] INSTILL 1 DROP FOUR TIMES DAILY EACH EYE Start Date: 05/11/20 Status: Ordered meloxicam 15 mg oral tablet 1 tablet = 15 mg, By Mouth, Daily, Take with food PRN back pain Mauritanian, # 14 tablet, 0 Refills, Maintenance, 11/25/21 13:26:00 EDT, [facility], Partial fill upon patient request if the prescription is for a schedule II opioid drug., 188,... Start Date: 11/25/21 Stop Date: 12/09/21 Status: Ordered metFORMIN 750 mg oral tablet, extended release 1 tablet = 750 mg, By Mouth, Daily, [replaces the metformin 500mg bid], # 30 tablet, 11 Refills, Maintenance, 11/22/21 17:53:00 EDT, ER Tablet, [facility], Partial fill upon patient requestif the prescription is for a schedule II opioid alessandra... Start Date: 11/22/21 Status: Ordered methadone 10 mg oral tablet See Instructions, By mouth. 2 tab in AM, 1.5 midday, 2 in evening;for pain. IDC10: G90.5 CRPS. 28 day supply. [facility]., # 154 tablet, 0 Refills, Maintenance, pain, 11/08/21 7:19:00 EDT, [facility], May partial fill., 188, cm,... Start Date: 11/08/21 Status: Ordered methadone 10 mg oral tablet See Instructions, By mouth. 2 tab in AM, 1.5 midday, 2 in evening;for pain. IDC10: G90.5 CRPS. 28 day supply. [facility]., # 154 tablet, 0 Refills, Maintenance, pain, 12/06/21 7:20:00 EDT, [facility], May partial fill., 12/06/21,... Start Date: 12/06/21 Status: Ordered methadone 10 mg oral tablet See Instructions, By mouth. 2 tab in AM, 1.5 midday, 2 in evening;for pain. IDC10: G90.5 CRPS. 28 day supply. [facility]., # 154 tablet, 0 Refills, Maintenance, pain, 01/03/22 7:12:00 EDT, [facility], May partial fill., 01/03/22,... Start Date: 01/03/22 Status: Ordered Metoclopramide = 10 mg, By Mouth, 3 times a day before meals and bedtime, 0 Refills, Maintenance, 08/20/18 13:55:26 EDT Start Date: 08/20/18 Status: Ordered multivitamin Multiple Vitamins oral tablet 1 tablet, By Mouth, Daily, B complex multivitamin, # 30 tablet, 11 Refills, Maintenance, 11/22/21 17:58:00 EDT, [facility], Partial fill upon patient request if the prescription is for a schedule II opioid drug., 1 tablet By Mouth Daily,Inst... Start Date: 11/22/21 Status: Ordered Narcan 4 mg/0.1 mL nasal spray = 4 mg, Nares, Both, Once, may repeat every 2 to 3 minutes until patient responds, # 2 each, 0 Refills, Soft Stop, 05/25/21 10:17:00 EST, [facility], 188, cm, 05/25/21 9:26:00 EST, Height, 125.2, kg, 06/20/20 14:28:00 EST, Dry Weight Start Date: 05/25/21 Status: Ordered nystatin-triamcinolone topical 268029 u/gm-0.1% ointment 1 applicator, Topically, 3 times a day, to foreskin area FOR 3 DAYS then switch to other antifungal, # 15 Gm, 1 Refills, Maintenance, 05/25/21 10:20:00 EST, [facility], 1 applicator Topically 3 times a day,Instr:to foreskin area FOR 3 DAYS t... Start Date: 05/25/21 Status: Ordered olopatadine 0.1% ophthalmic solution 1 drops, Eyes, Both, 2 times a day, 0 Refills, Maintenance, 01/01/16 18:36:52 EDT Start Date: 01/01/16 Status: Ordered ondansetron 4 mg oral tablet TAKE 1 TABLET BY MOUTH EVERY 8 HOURS NEEDED FOR NAUSEA Idaliarosas Sandoval Start Date: 08/20/18 Status: Ordered Pen [place], 31 G x 8 mm BD Ultra Fine III See Instructions, # 150 each, Refills 11, Tot. Refills 11, Maintenance, use 2- 5x/day Type 2 Diabetes Mellitus on Lantus and Humalog insulin with pen, 02/27/22 13:16:00 EST, Compound, 188, cm, 11/22/21 16:37:00 EDT, Height, 122.63, kg, 11/22/21 16:37:0... Start Date: 02/27/22 Stop Date: 02/22/23 Status: Ordered Pen [place], 31 G x 8 mm BD Ultra [...] each, 11 Refills, Maintenance, 09/15/21 14:29:00 EDT, [facility], Partial fill upon patient request if the prescription is for a schedule II opioid drug., 188, cm, 09/15/21 12:4... Start Date: 09/15/21 Status: Ordered Singulair 10 mg oral tablet 10 mg, 1, tablet, By Mouth, Daily, # 90 tablet, Refills 3, Tot. Refills 3, Maintenance, 03/30/20 21:31:00 EST, Route to Pharmacy Electronically, [facility], 185, cm, 02/25/20 10:29:00 EST, Height, [...] Intramuscular, Every 14 days, IM or subcutaneous. [facility]., # 5 mL, 5 Refills, Maintenance, 11/22/21 17:58:00 EDT, [facility], 188, cm, 11/22/21 16:37:00 EDT, Height, 122.63, kg, 11/22/21 16:37:00 EDT, Dry Weight Start Date: 11/22/21 Status: Ordered tiZANidine 4 mg oral tablet 4 mg, 1, tablet, By Mouth, 3 times a day, PRN, # 90 tablet, Refills 11, Tot. Refills 11, Maintenance, as needed for muscle spasm, 08/12/21 11:09:00 EDT, Route to Pharmacy Electronically, [facility], 188, cm, 07/27/21 8:34:00 EDT, Height, 125... Start Date: 08/12/21 Status: Ordered traZODone 100 mg oral tablet TAKE ONE TO TWO TABLETS BY MOUTH AT BEDTIME NEEDED SZayra Morales Start Date: 05/11/20 Status: Ordered Tylenol Extra Strength 500 mg oral tablet 2 tablet = 1,000 mg, By Mouth, 3 times a day, # 30 tablet, 11 Refills, Maintenance, 03/24/21 21:00:00 EST, [facility], 188, cm, 03/22/21 14:17:00 EST, Height, 125.2, kg, 06/20/20 14:28:00 EST, Dry Weight Start Date: 03/24/21 Status: Ordered Vitamin D3 1000 intl units oral tablet 1 tablet, By Mouth, Daily, for 30 days, # 30 tablet, 11 Refills, Physician Stop 10/30/22 17:07:00 EDT, 11/04/21 17:07:00 EDT, [facility], 188, cm, 09/15/21 12:49:00 EDT, Height, [...] ? chr regional pain syndrome 4s/p Modified [place] procedure, repair of conjoined tendon of extensor [...] 11/11/21 Sex Male Care Team Personnel Name: Donovan DE LOS SANTOS, Vamshi Oshea Address: [address] [place] [address]
--- OUTSIDE RECORDS SUMMARY | 2023-10-11 08:15 | XMS_ITS | Continuity of Care Document ---
Author Organization [facility] Address Unknown Care Team Providers Care Costume Design Teacher Name Role Phone Vamshi Man MD Primary Care Physician Encounter [facility] [place] Date(s): 02/10/21 - 03/26/21 [facility] Attending Physician: Vamshi Man MD [...] [11/27/2017] REceived at [facility] at [place], [place]; ordered by Dr Michael Oliveira 13Location [...] 7x/wk total. Dx: E11, 11/18/20 15:30:00 EDT, [facility], 188, cm, 09/22/20 8:33:00 EDT, Height, [...] 0, Maintenance, use overnight and naps from [facility], 11/04/18 12:28:22 EDT, Compound Start [...] capsule, 3 Refills, Maintenance, 03/30/20 21:36:00 EST, [facility], 185, cm, 02/25/20 10:29:00 EST, Height, 126.81, kg, 02/25/20 10:29:00 EST, Dry Weight Start Date: 03/30/20 Status: Ordered clotrimazole 1% topical cream 1 application, Topically, 2 times a day, apply to penile rash, # 30 Gm, 2 Refills, Maintenance, 01/07/20 14:49:00 EDT, Cream, [facility], 1 application Topically 2 times a day,Instr:apply to penile rash, 185, cm, 01/07/20 13:55:00 EDT, Heigh... Start Date: 01/07/20 Status: Ordered Cozaar 100 mg oral tablet 1 tablet = 100 mg, By Mouth, Daily in AM, # 30 tablet, 11 Refills, Maintenance, 09/22/20 9:41:00 EDT, Tablet, [facility], duplicate rx. original sent 09/16/19. remaining [...] 06/25/20 15:39:00 EST, Route to Pharmacy Electronically, [facility], Partial f... Start Date: 06/25/20 Status: Ordered diclofenac 1% topical gel = 2 Gm, Topically, 4 times a day, PRN for pain, (telugu) not to exceed: 16 gm/day/joint lower limb8 gm/day/joint of upper limb 32 gm/day may interchange for cream, # 100 Gm, 5 Refills, Maintenance,07/08/20 15:35:00 EDT, Gel, [facility] Start Date: 07/08/20 Status: Ordered docusate [...] 11 Refills, Maintenance, 03/03/21 21:23:00 EST, Solution, [facility], 188, cm, 02/24/21 16:26:00 EST, Height, [...] mL, 11 Refills, Maintenance, 01/14/21 18:16:00 EDT, [facility], 188, cm, 12/22/20 9:45:00 EDT, Height, 125.2, kg, 06/20/20 14:28:00EST, Dry Weight Start Date: 01/14/21 Status: Ordered latanoprost 0.005% ophthalmic solution 0 Refills, Maintenance, 05/11/20 16:57:00 EST Start Date: 05/11/20 Status: Ordered lidocaine 5% topical ointment See Instructions, 1 APPLICATION TOPICALLY 3 TIMES A DAY, # 70.88 Gm, 4 Refills, Acute, [facility], 14, 1 APPLICATION TOPICALLY 3 TIMES A DAY, 188, cm, 09/22/20 8:33:00 EDT, Height, 125.2, kg, 06/20/20 14:28:00 EST, Dry Weight Start Date: 11/08/20 Status: Ordered Lipitor 40 mg oral tablet 1 tablet = 40 mg, By Mouth, Daily, # 90 tablet, 3 Refills, Maintenance, 03/30/20 21:30:00 EST, [facility], duplicate rx. original sent 11/04/19. remaining refill sent., 185, cm, 02/25/20 10:29:00 EST, Height, 126.81, kg, 02/25/20 10:29:00 EST... Start Date: 03/30/20 Status: Ordered LORazepam 1 mg oral tablet See Instructions, PRN for anxiety, 2 tablets By Mouth 1 hours prior to MRI, # 2 tablet, 0 Refills, Acute 04/15/21 10:58:00 EST, 02/23/21 9:45:00 EST, Tablet, [facility], 188, cm, 02/23/21 9:53:00 EST, Height, 125.2, kg, 06/20/20 14:28:00 EST... Start Date: 02/23/21 Stop Date: 04/15/21 Status: Ordered LORazepam 1 mg oral tablet See Instructions, PRN for anxiety, 2 tablets By Mouth 1 hours prior to MRI, # 2 tablet, 0 Refills, Acute 09/22/21 9:45:00 EDT, 09/22/20 9:43:00 EDT, Tablet, [facility], Partial fill upon patient request if the prescription is for a schedule... Start Date: 09/22/20 Stop Date: 09/22/21 Status: Ordered LORazepam 1 mg oral tablet See Instructions, PRN for anxiety, 2 tablets By Mouth 1 hours prior to MRI, # 2 tablet, 0 Refills, Maintenance, 04/15/21 10:58:00 EST, Tablet, [facility], 188, cm, 03/22/21 14:17:00 EST, Height, [...] 3 Refills, Maintenance, 07/08/20 15:40:00 EDT, Tablet, [facility], Duplicate rx-Original rx sent06/22/20. Resent., 188, cm, 07/08/20 13:42:00 EDT, He... Start Date: 07/08/20 Status: Ordered methadone 10 mg oral tablet See Instructions, By mouth. 2 tab in AM, 1.5 midday, 2 in evening;for pain. IDC10: G90.5 CRPS. 28 day supply. [facility]., # 154 tablet, 0 Refills, Maintenance, pain, 03/29/21 21:05:00 EST,[facility], May partial fill., 03/29/21... Start Date: 03/29/21 Status: Ordered methadone 10 mg oral tablet See Instructions, By mouth. 2 tab in AM, 1.5 midday, 2 in evening;for pain. IDC10: G90.5 CRPS. 28 day supply. [facility]., # 154 tablet, 0 Refills, Maintenance, pain, 04/26/21 0:34:00 EST, [facility], May partial fill., 04/26/21,... Start Date: 04/26/21 Status: Ordered Metoclopramide = 10 mg, By Mouth, 3 times a day before meals and bedtime, 0 Refills, Maintenance, 08/20/18 13:55:26 EDT Start Date: 08/20/18 Status: Ordered multivitamin Multiple Vitamins oral tablet 1 tablet, By Mouth, Daily, B complex multivitamin, # 30 tablet, 11 Refills, Maintenance, 12/22/20 10:52:00 EDT, [facility], Partial fill upon patient request if [...] Start Date: 05/15/18 Status: Ordered nystatin-triamcinolone topical 937547 u/gm-0.1% ointment 1 applicator, Topically, 3 times a day, to foreskin area FOR 3 DAYS then switch to other antifungal, # 15 Gm, 1 Refills, Maintenance, 07/08/20 15:34:00 EDT, [facility], 1 applicator Topically 3 times a [...] EDT Start Date: 08/20/18 Status: Ordered Pen [place], 31 G x 8 mm BD Ultra [...] 03/30/20 21:31:00 EST, Route to Pharmacy Electronically, [facility], 185, cm, 02/25/20 10:29:00 EST, Height, [...] solution 0.75 mL, Intramuscular, Every 14 days, [facility], # 5 mL, 5 Refills, Maintenance, 03/25/21 1:06:00 EST, [facility], 188, cm, 03/22/21 14:17:00 EST, Height, 125.2, kg, 06/20/20 14:28:00 EST, Dry Weight Start Date: 03/25/21 Status: Ordered tiZANidine 4 mg oral tablet 4 mg, 1, tablet, By Mouth, 3 times a day, PRN, # 90 tablet, Refills 11, Tot. Refills 11, Maintenance, as needed for muscle spasm, 07/08/20 15:40:00 EDT, Route to Pharmacy Electronically, [facility], 188, cm, 07/08/20 13:42:00 EDT, Height, 12... Start Date: 07/08/20 Status: Ordered traZODone 100 mg oral tablet TAKE ONE TO TWO TABLETS BY MOUTH AT BEDTIME NEEDED SZayra Garsiaroseanna Start Date: 05/11/20 Status: Ordered Tylenol Extra Strength 500 mg oral tablet 2 tablet = 1,000 mg, By Mouth, 3 times a day, # 30 tablet, 11 Refills, Maintenance, 03/24/21 21:00:00 EST, [facility], 188, cm, 03/22/21 14:17:00 EST, Height, 125.2, kg, 06/20/20 14:28:00 EST, Dry Weight Start Date: 03/24/21 Status: Ordered Problem List Condition Effective Dates Status Health Status Inform ant Alcohol abuse - per MH evalmargot 2015(Confirmed) Active Allergic rhinitis(Confirmed) Active Anxiety [...] ? chr regional pain syndrome 4s/p Modified [place] procedure, repair of conjoined tendon of extensor [...]
--- OUTSIDE RECORDS SUMMARY | 2023-10-11 08:15 | XMS_ITS | Continuity of Care Document ---
Author Organization [facility] Address [address] [place] [address]- Care Team Providers Care Mixer Crane Operator Name Role Phone Vamshi Man MD Primary Care Physician [phone] Encounter [facility] Date(s): 04/26/23 - 05/26/23 [facility] [address]- [place] Allergies, Adverse Reactions, Alerts Substance Reaction Severity Status penicillin 1 rash Resolved Other Food Allergy fresh peaches - itch y mouth, throat and lips swell Active Latex RASH Active penicillins Active 1rash per mother as child. Did take a penicillin for treatment of H pylori per pt w/o problem. Immunizations Given and Recorded Vaccine Date Status Refusal Reason SARS-CoV-2(COVID-19)mRNA-LNP vac([id number]) 01/30/23 Given influenza virus vaccine, inactivated 01/05/23 [...] influenza virus vaccine, inactivated 03/19/06 Give n [id number] 12y+ bivalent booster vax 02/16/22 Given pneumococcal 20-valent conjugate vaccine 02/16/22 Given Influenza Virus Vaccine (oldterm) 9 01/27/22 Recor ded Influenza Virus Vaccine (oldterm) 01/26/21 Recorde d SARS-CoV-2 mRNA ([id number]) vax 11/11/21 Given SARS-CoV-2 (COVID-19) mRNA BNT-162b2 [...] 13Result Comment: [11/27/2017] REceived at [facility] at [place], [place]; ordered by Dr Michael Oliveira 14Location [...] 11 Refills, Maintenance, 02/08/23 10:21:00 EDT, Powder, [facility], replaces Flovent due to insurance coverage, 188, cm, 01/30/23 13:26:00 EDT, Height, 126, kg, 01/30/23 13:26:00 EDT,... Start Date: 02/08/23 Status: Ordered Aspirin Low Dose 81 mg oral delayed release tablet 1 tablet, By Mouth, Daily, # 90 tablet, 4 Refills, Maintenance, 03/01/23 17:49:00 EST, [facility], 188, cm, 01/30/23 13:26:00 EDT, Height, 126, kg, 01/30/23 13:26:00 EDT, Dry Weight Start Date: 03/01/23 Status: Ordered atorvastatin 40 mg oral tablet See Instructions, TAKE 1 TABLET BY MOUTH EVERY DAY, # 90 tablet, 0 Refills, Maintenance, 05/01/23 21:18:00 EST, [facility], 188, cm, 04/26/23 13:06:00 EST, Height, [...] 2 Refills, Maintenance, 04/27/22 23:43:00 EST, Cream, [facility], 1 application Topically 2 times a day,Instr:apply to penile rash, 188, cm, 04/27/22 13:44:00 EST, Heigh... Start Date: 04/27/22 Status: Ordered diazepam 10 mg oral tablet See Instructions, PRN, 1 tablet By Mouth 1 hr before MRI, # 1 tablet, Refills 2, Tot. Refills 2, Maintenance, as needed for anxiety, 01/30/23 15:02:00 EDT, Instructions Replace Required Details, Route to Pharmacy Electronically, [facility],... Start Date: 01/30/23 Status: Ordered diclofenac 1% topical gel = 2 Gm, Topically, 4 times a day, PRN for pain, (upper sorbian) not to exceed: 16 gm/day/joint lower limb8 gm/day/joint of upper limb 32 gm/day may interchange for cream, # 100 Gm, 11 Refills, Maintenance, 04/15/22 13:02:00 EST, Gel, [facility]... Start Date: 04/15/22 Status: Ordered docusate [...] Start Date: 05/11/20 Status: Ordered Freestyle Tatyana Witter Freestyle Tatyana Witter, See Instructions, # 1 each, Refills 0, [...] 11 Refills, Maintenance, 11/28/21 21:27:00 EDT, Solution, [facility], 188, cm, 11/22/21 16:37:00 EDT, Height, [...] 5 Refills, Maintenance, 12/22/21 7:28:00 EDT, [facility], same Rx was sent 11/11 w/ 5 [...] 0 Refills, Maintenance, 01/12/22 7:27:00 EDT, Tablet, [facility], 188, cm, 12/26/21 14:06:00 EDT, Height, 122.63, kg, 11/22/21 16:37:00 EDT, Dry Weight Start Date: 01/12/22 Status: Ordered LUBRIC TEARS CALE 0.4-0.3% Milliliters INSTILL 1 DROP FOUR TIMES DAILY EACH EYE Start Date: 05/11/20 Status: Ordered magnesium oxide 400 mg oral tablet 1 tablet = 400 mg, By Mouth, Daily, # 90 tablet, 3 Refills, Maintenance, 05/07/23 16:31:00 EST, Tablet, [facility], 188, cm, 04/26/23 13:06:00 EST, Height, 126.09, kg, 04/26/23 13:06:00 EST, Dry Weight Start Date: 05/07/23 Status: Ordered meloxicam 15 mg oral tablet 1 tablet = 15 mg, By Mouth, Daily, Take with food PRN back pain Indonesian, # 14 tablet, 0 Refills, Maintenance, 11/25/21 13:26:00 EDT, [facility], Partial fill upon patient request if [...] tablet, 0 Refills, Maintenance, pain, 06/19/23 23:14:00 EST,[facility], May partial fill., 06/19/23... Start Date: 06/19/23 Status: Ordered methadone 10 mg oral tablet See Instructions, By mouth. 2 tab in AM, 1.5 midday, 2 in evening;for pain. IDC10: G90.5 CRPS. 28 day supply. [facility]., # 154 tablet, 0 Refills, Maintenance, pain, 05/22/23 23:14:00 EST,[facility], May partial fill., 05/22/23... Start Date: 05/22/23 Status: Ordered methadone 10 mg oral tablet See Instructions, By mouth. 2 tab in AM, 1.5 midday, 2 in evening;for pain. IDC10: G90.5 CRPS. 28 day supply. [facility]., # 154 tablet, 0 Refills, Maintenance, pain, 07/17/23 23:14:00 EDT,[facility], August partial fill., 07/17/23... Start Date: 07/17/23 Status: Ordered methadone 10 mg oral tablet See Instructions, By mouth. 2 tab in AM, 1.5 midday, 2 in evening;for pain. IDC10: G90.5 CRPS. 28 day supply. [facility]., # 154 tablet, 0 Refills, Maintenance, pain, 04/24/23 22:44:00 EST,[facility], August partial fill., 188, cm,... Start Date: 04/24/23 Status: Ordered Metoclopramide = 10 mg, By Mouth, 3 times a day before meals and bedtime, 0 Refills, Maintenance, 08/20/18 13:55:26 EDT Start Date: 08/20/18 Status: Ordered Mounjaro 7.5 mg/0.5 mL subcutaneous solution = 7.5 mg, Subcutaneous Injection, Every week, rotate injection sites, # 4 each, 5 Refills, Maintenance, 04/27/23 0:18:00 EST, Solution, [facility], please d/c all prior Rx/refills for [...] Date: 02/16/22 Status: Ordered PEN NEEDLES MIS [id number] PEN NEEDLES MIS [id number], See Instructions, # 100 each, 5 Refills, Maintenance, USE DAILY TYPE 2 DIABETES MELLITUS ON INSULIN WITH PEN, 08/25/22 16:39:00 EDT, 188, cm, 07/18/22 14:01:00 EDT, Height, 122.63, kg, 11/22/21 16:37:00 EDT, Dry Weight Start Date: 08/25/22 Status: Ordered PEN NEEDLES MIS [id number] PEN NEEDLES MIS [id number], See Instructions, # 150 each, 5 Refills, Maintenance, USE 2-5X/DAY TYPE 2 DIABETES MELLITUS ON LANTUS AND HUMALOG INSULIN WITH PEN, 04/30/23 9:00:00 EST, 188, cm, 04/26/23 13:06:00 EST, Height, 126.09, kg, 04/26/23 13:06:00 ES... Start Date: 04/30/23 Status: Ordered Pen [place], 31 G x 8 mm BD Ultra [...] 02/18/23 19:20:00 EST, Route to Pharmacy Electronically, [facility], 188, cm, 01/30/23 13:26:00 EDT, Height, [...] tablet, 5 Refills, Maintenance, 12/19/22 20:41:00 EDT, [facility], 30, TAKE 1 TABLET BY MOUTH EVERY DAY, 188, cm, 10/19/22 13:16:00 EDT, Height, 122.63, kg, 11/22/21 16:37:00 EDT, Dry Weight Start Date: 12/19/22 Status: Ordered tamsulosin 0.4 mg oral capsule 0.8 mg, 2, capsule, By Mouth, Daily, dose increase, # 60 capsule, Refills 11, Tot. Refills 11, Maintenance, 07/27/22 11:57:00 EDT, Route to Pharmacy Electronically, [facility], 188, cm, 07/18/22 14:01:00 EDT, Height, 122.63, kg, 11/22/21 16:... Start Date: 07/27/22 Status: Ordered Test Strips See Instructions, # 100 each, Refills 5, Tot. Refills 5, Maintenance, Precision Ganga strips (for Freestyle Tatyana glucometer). Type 2 diabetes mellitus on insulin (E11, Z79.4). Test 2-4x/day if symptoms, or sensor concerns., 02/08/23 10:36:00 EDT, [place] [facility]... Start Date: 02/08/23 Status: Ordered Test Strips [...] Intramuscular, Every 14 days, IM or subcutaneous. [facility]., # 2 mL, 5 Refills, Maintenance, 05/04/23 13:34:00 EST, [facility], 188, cm, 04/26/23 13:06:00 EST, Height, [...] mL, 11 Refills, Maintenance, 02/08/23 10:15:00 EDT,Solution, [facility], replaces Lantus due to insurance coverage, 188, cm, 01/30/23 13:26:00 EDT, Height, 126, kg, 01/30/23 13:26:00 EDT, Dry... Start Date: 02/08/23 Status: Ordered Tylenol Extra Strength 500 mg oral tablet 2 tablet = 1,000 mg, By Mouth, 3 times a day, # 30 tablet, 11 Refills, Maintenance, 03/24/21 21:00:00 EST, [facility], 188, cm, 03/22/21 14:17:00 EST, Height, 125.2, kg, 06/20/20 14:28:00 EST, Dry Weight Start Date: 03/24/21 Status: Ordered Vitamin D3 1000 intl units oral tablet 1 tablet, By Mouth, Daily, # 90 tablet, 4 Refills, Maintenance, 04/01/23 22:28:00 EST, [facility], 188, cm, 01/30/23 13:26:00 EDT, Height, [...] Team Personnel Name: Shoaib An RN Position: [facility] RN Supv Member Role: Primary Care Nurse Name: Vamshi Man MD Position: [facility] Physician - Primary Care Member Role: PCP Address: Address: [address] [place] [address] Name: Luz Potter Position: [facility] Outreach Member Role: Lifetime Consulting Physician Name: Miki Rodriguez MD Position: [facility] Renal MD Member Role: Lifetime Consulting Physician Address: Address: [address] [facility] [place] [address]- Care Team Related Persons Name: BRANDON MTZ Address: home [address] [place] [address] Name: BRANDON BARKER Address: home [address] [place] [address] Name: ROSALINDA BERTRAND Address: home [address] [place] [address]
--- OUTSIDE RECORDS SUMMARY | 2023-10-11 08:15 | XMS_ITS | Continuity of Care Document ---
Author Organization [facility] Address [address] [place] [address]- Care Team Providers Care Pie Bottomer Name Role Phone Vamshi Man MD Primary Care Physician [phone] Encounter [facility] Date(s): 06/12/19 - 07/26/19 [facility]/[address] [address]- [facility] Attending Physician: Vamshi Man MD [...] Elissa Bertrand 11Result Comment: [11/27/2017] REceived at [facility] at [place], [place]; ordered by Dr Michael Oliveira 12Location [...] 10/30/18 7:28:48 EDT, Route to Pharmacy Electronically, [id number], [facility] Start Date: 10/30/18 Status: Ordered AutoCPAP [...] 1 Refills, Maintenance, 06/24/19 15:23:00 EDT, Cream, [facility], 1 application Topically 2 times a day,Instr:apply to penile rash, 185, cm, 06/24/19 13:00:00 EDT, Heigh... Start Date: 06/24/19 Status: Ordered Cozaar 100 mg oral tablet 1 tablet = 100 mg, By Mouth, Daily in AM, # 30 tablet, 11 Refills, Maintenance, 08/20/18 21:51:53 EDT, Tablet Start Date: 08/20/18 Status: Ordered diclofenac 1% topical gel = 2 Gm, Topically, 4 times a day, PRN for pain, (georgian) not to exceed: 16 gm/day/joint lower limb8 gm/day/joint of upper limb 32 gm/day, # 100 Gm, 1 Refills, Maintenance, 05/29/19 13:35:00 EST, Gel, [facility], 185, cm, 05/06/19 13:41:... Start Date: [...] tablet, 1 Refills, Maintenance, 04/15/19 5:02:00 EST, [facility], 185, cm, 02/12/19 9:28:00 EDT, Height, [...] Eyes, Both, Daily at bedtime, cover gap- Rehabilitation Tech Dr Broussard, # 2.5 mL, 1 Refills, Maintenance, 02/25/14 10:47:09, Ophth Solution, 1 drops Eyes, Both Daily at bedtime,Instr:cover gap-Rehabilitation Tech Dr Broussard Start Date: 02/25/14 Status: Ordered lidocaine 4% topical cream 1 application, Topically, 3 times a day, may interchange 3-5% cream or ointment or 2% gel per insurance coverage., # 60 Gm, 5 Refills, Maintenance, 06/03/19 14:41:00 EST, [facility], 1 application Topically 3 times a day,Instr:august interchang... Start Date: 06/03/19 Status: Ordered Linzess 145 mcg oral capsule TAKE 1 CAPSULE BY MOUTH 30 MINUTES BEFORE MEAL (constipation) Start Date: 03/31/17 Status: Ordered Lipitor 40 mg oral tablet 1 tablet = 40 mg, By Mouth, Daily, # 30 tablet, 5 Refills, Maintenance, 05/15/19 11:16:00 EST, [facility], 185, cm, 05/06/19 13:41:00 EST, Height, 127.72, kg, 05/06/19 13:41:00 EST, Dry Weight Start Date: 05/15/19 Status: Ordered metFORMIN 500 mg oral tablet 1 tablet = 500 mg, By Mouth, 2 times a day, with meals. Replaces metformin ER, # 60 tablet, 11 Refills, Maintenance, 06/24/19 15:02:00 EDT, Tablet, [facility], 185, cm, 06/24/19 13:00:00 EDT, [...] pain. IDC10: G90.5 CRPS. 28 day supply. [facility]., # 154 tablet, 0 Refills, Maintenance, pain, 07/17/19 22:30:00 EDT,[facility], May partial fill., 185, cm,... Start Date: 07/17/19 Status: Ordered Metoclopramide = 10 mg, By [...] Start Date: 05/15/18 Status: Ordered nystatin topical 277031 u/gm cream 1 application, Topically, 2 times a day, for fungal rash, # 30 Gm, 0 Refills, Maintenance, 12/27/1710:41:38, Cream, 1 application Topically 2 times a day,x14 days,Instr:for fungal rash Start Date: 12/27/16 Stop Date: 01/10/17 Status: Ordered nystatin-triamcinolone topical 765814 u/gm-0.1% ointment 1 applicator, Topically, 3 times [...] EDT Start Date: 08/20/18 Status: Ordered Pen [place], 31 G x 8 mm BD Ultra [...] 11/29/18 11:27:43 EDT, Route to Pharmacy Electronically, [id number], [facility] Start Date: 11/29/18 Status: Ordered Testosterone Cypionate = 0.75 mg, Intramuscular, Every 14 days, Adm. today to RG Lot [id number] exp: 02/2020, 0 Refills, Maintenance, 11/14/18 14:06:08 EDT Start Date: 11/14/18 Status: Ordered testosterone enanthate 200 mg/mL intramuscular solution 0.75 mL, Intramuscular, Every 14 days, [facility], # 5 mL, 5 Refills, Maintenance, 05/06/19 15:06:00 EST, [facility], 185, cm, 05/06/19 13:41:00 EST, Height, 127.72, kg, 05/06/19 13:41:00 EST, Dry Weight Start Date: 05/06/19 Status: Ordered tiZANidine 4 mg oral tablet 4 mg, 1, tablet, By Mouth, 3 times a day, PRN, # 90 tablet, Refills 11, Tot. Refills 11, Maintenance, as needed for muscle spasm, 02/04/19 21:34:51 EDT, Route to Pharmacy Electronically, NCPDP_[id number], [facility] Start Date: 02/04/19 Status: Ordered Problem List Condition Effective Dates Status Health Status Inform ant Alcohol abuse - per evaln 2016(Confirmed) Active Allergic rhinitis(Confirmed) Active Anxiety disorder(Confirmed) [...]
--- OUTSIDE RECORDS SUMMARY | 2023-10-11 08:15 | XMS_ITS | Continuity of Care Document ---
Author Organization [facility] Address Unknown Care Team Providers Care Warp Drawer Name Role Phone Vamshi Man MD Primary Care Physician Encounter [facility] Date(s): 07/04/21 - 08/03/21 [facility] Allergies, Adverse Reactions, Alerts Substance Reaction Severity [...] 12Result Comment: [11/27/2017] REceived at [facility] at [place], [place]; ordered by Dr Michael Oliveira 13Location [...] tablet, 5 Refills, Maintenance, 05/14/21 20:06:00 EST, [facility], 188, cm, 03/22/21 14:17:00 EST, Height, 125.2, kg, 06/20/20 14:28:00 EST, Dry Weight Start Date: 05/14/21 Status: Ordered atorvastatin 40 mg oral tablet 1 tablet, By Mouth, Daily, # 90 tablet, 1 Refills, [facility], 188, cm, 03/22/21 14:17:00EST, Height, 125.2, [...] 2 Refills, Maintenance, 01/07/20 14:49:00 EDT, Cream, [facility], 1 application Topically 2 times a day,Instr:apply to penile rash, 185, cm, 01/07/20 13:55:00 EDT, [facility]... Start Date: 01/07/20 Status: Ordered Cozaar 100 mg oral tablet 1 tablet = 100 mg, By Mouth, Daily in AM, # 30 tablet, 11 Refills, Maintenance, 09/22/20 9:41:00 EDT, Tablet, [facility], duplicate rx. original sent 09/16/19. remaining [...] 06/25/20 15:39:00 EST, Route to Pharmacy Electronically, [facility], Partial f... Start Date: 06/25/20 Status: Ordered diclofenac 1% topical gel = 2 Gm, Topically, 4 times a day, PRN for pain, (cameroonian) not to exceed: 16 gm/day/joint lower limb8 gm/day/joint of upper limb 32 gm/day may interchange for cream, # 100 Gm, 5 Refills, Maintenance,07/08/20 15:35:00 EDT, Gel, [facility] Start Date: 07/08/20 Status: Ordered docusate [...] Ordered Freestyle Lite Lancets See Instructions, # 100 each, Refills 5, Tot. Refills 5, Maintenance, up to 3x per day for type 2 diabetes m. Dx: E11., 06/13/21 12:53:00 EST, Compound, 188, cm, 05/25/21 9:26:00 EST, Height, 125.2, kg, 06/20/20 14:28:00 EST, Dry Weight Start Date: 06/13/21 Stop Date: 12/10/21 Status: Ordered Freestyle Lite Monitor See Instructions, # 1 each, Refills 0, Tot. Refills 0, Maintenance, use as directed for Type 2 Diabetes Mellitus, E11.9, on insulin, check BS 0-3 times a day as directed., 06/13/21 12:53:00 EST, Compound, 188, cm, 05/25/21 9:26:00 EST, Height, 125.2,... Start Date: 06/13/21 Stop Date: 07/13/21 Status: Ordered Freestyle Lite Test Strips See Instructions, # 100 each, Refills 11, Tot. Refills 11, Maintenance, Up to 3x per day as needed.Dx: E11, 06/13/21 12:53:00 EST, Compound, 188, cm, 05/25/21 9:26:00 EST, Height, 125.2, kg, 06/20/20 14:28:00 EST, Dry Weight Start Date: 06/13/21 Status: Ordered gabapentin 600 mg oral tablet TAKE 1 TABLET BY MOUTH THREE TIMES A DAY Start Date: 05/11/20 Status: Ordered Glucose Monitor See Instructions, PRN, # 1 each, Refills 0, Tot. Refills 0, Maintenance, diabetes mellitus 2, Embrace glucometer. Dx: E11, diabetes m 2, 06/20/21 1:28:00 EST, Compound, 188, cm, 05/25/21 9:26:00 EST,Height, 125.2, kg, 06/20/20 14:28:00 EST, Dry Weight Start Date: 06/20/21 Status: Ordered Home Blood Pressure Monitor See Instructions, # 1 each, Maintenance, electronic sensor, Hypertension with difficulty to control, 12/22/19 10:32:00 EDT, Compound Start Date: 12/22/19 Status: Ordered Jardiance 10 mg oral tablet 1 tablet, By Mouth, Daily in AM, # 30 tablet, 11 Refills, Maintenance, 07/25/21 20:18:00 EDT, [facility], 188, cm, 06/28/21 16:20:00 EDT, Height, 125.2, kg, 06/20/20 14:28:00 EST, Dry Weight Start Date: 07/25/21 Status: Ordered ketotifen 0.025% ophthalmic solution INSTILL 1 DROP INTO AFFECTED EYE TWICE A DAY Dr Poe Start Date: 05/11/20 Status: Ordered Lancets See Instructions, # 100 each, Refills 5, Tot. Refills 5, Maintenance, up to 3x per day for type 2 diabetes m. Dx: E11., 06/20/21 1:30:00 EST, Compound, 188, cm, 05/25/21 9:26:00 EST, Height, 125.2, kg, 06/20/20 14:28:00 EST, Dry Weight Start Date: 06/20/21 Status: Ordered Lantus Solostar Pen 100 units/mL subcutaneous solution = 90 units, Subcutaneous Infusion, Daily at bedtime, # 30 mL, 11 Refills, Maintenance, 01/14/21 18:16:00 EDT, [facility], 188, cm, 12/22/20 9:45:00 EDT, Height, 125.2, kg, 06/20/20 14:28:00EST, Dry Weight Start Date: 01/14/21 Status: Ordered latanoprost 0.005% ophthalmic solution 0 Refills, Maintenance, 05/11/20 16:57:00 EST Start Date: 05/11/20 Status: Ordered lidocaine 5% topical ointment See Instructions, 1 APPLICATION TOPICALLY 3 TIMES A DAY, # 70.88 Gm, 4 Refills, Acute, [facility], 14, 1 APPLICATION TOPICALLY 3 TIMES A DAY, 188, cm, 09/22/20 8:33:00 EDT, Height, 125.2, kg, 06/20/20 14:28:00 EST, Dry Weight Start Date: 11/08/20 Status: Ordered LORazepam 1 mg oral tablet See Instructions, PRN for anxiety, 2 tablets By Mouth 1 hours prior to MRI, # 2 tablet, 1 Refills, Maintenance, 05/25/21 10:06:00 EST, Tablet, [facility], 188, cm, 05/25/21 9:26:00 EST, Height, 125.2, kg, 06/20/20 14:28:00 EST, Dry Weight Start Date: 05/25/21 Status: Ordered LUBRIC TEARS CALE 0.4-0.3% Milliliters INSTILL 1 DROP FOUR TIMES DAILY EACH EYE Start Date: 05/11/20 Status: Ordered metFORMIN 500 mg oral tablet 1 tablet, By Mouth, 2 times a day, # 60 tablet, 5 Refills, [facility], 188, cm, 06/28/21 16:20:00 EDT, Height, 125.2, kg, 06/20/20 14:28:00 EST, Dry Weight Start Date: 07/08/21 Status: Ordered methadone 10 mg oral tablet See Instructions, By mouth. 2 tab in AM, 1.5 midday, 2 in evening;for pain. IDC10: G90.5 CRPS. 28 day supply. [facility]., # 154 tablet, 0 Refills, Maintenance, pain, 07/19/21 1:23:00 EDT, [facility], May partial fill., 07/19/21,... Start Date: 07/19/21 Status: Ordered methadone 10 mg oral tablet See Instructions, By mouth. 2 tab in AM, 1.5 midday, 2 in evening;for pain. IDC10: G90.5 CRPS. 28 day supply. [facility]., # 154 tablet, 0 Refills, Maintenance, pain, 06/21/21 22:11:00 EST,[facility], May partial fill., 06/21/21... Start Date: 06/21/21 Status: Ordered Metoclopramide = 10 mg, By Mouth, 3 times a day before meals and bedtime, 0 Refills, Maintenance, 08/20/18 13:55:26 EDT Start Date: 08/20/18 Status: Ordered multivitamin Multiple Vitamins oral tablet 1 tablet, By Mouth, Daily, B complex multivitamin, # 30 tablet, 11 Refills, Maintenance, 12/22/20 10:52:00 EDT, [facility], Partial fill upon patient request if the prescription is for a schedule II opioid drug., 1 tablet By Mouth Daily,Inst... Start Date: 12/22/20 Status: Ordered Narcan 4 mg/0.1 mL nasal spray = 4 mg, Nares, Both, Once, may repeat every 2 to 3 minutes until patient responds, # 2 each, 0 Refills, Soft Stop, 05/25/21 10:17:00 EST, [facility], 188, cm, 05/25/21 9:26:00 EST, Height, 125.2, kg, 06/20/20 14:28:00 EST, Dry Weight Start Date: 05/25/21 Status: Ordered nystatin-triamcinolone topical 264081 u/gm-0.1% ointment 1 applicator, Topically, 3 times a day, to foreskin area FOR 3 DAYS then switch to other antifungal, # 15 Gm, 1 Refills, Maintenance, 05/25/21 10:20:00 EST, [facility], 1 applicator Topically 3 times a [...] EDT Start Date: 08/20/18 Status: Ordered Pen [place], 31 G x 8 mm BD Ultra [...] mL, 11 Refills, Maintenance, 05/25/21 10:14:00 EST, [facility], Partial fill upon patient request if the prescription is for a schedule II op... Start Date: 05/25/21 Status: Ordered Singulair 10 mg oral tablet 10 mg, 1, tablet, By Mouth, Daily, # 90 tablet, Refills 3, Tot. Refills 3, Maintenance, 03/30/20 21:31:00 EST, Route to Pharmacy Electronically, [facility], 185, cm, 02/25/20 10:29:00 EST, Height, [...] Maintenance, Glucometer test strips. Dx Diabetes M-2 (ICD-10: E11). Up to 3x per day as needed., 06/28/21 16:52:00 EDT, Compound, 188, cm, 06/28/21 16:20:00 EDT, Height, 125.2, kg, 06/20/20 1... Start Date: 06/28/21 Status: Ordered testosterone enanthate 200 mg/mL intramuscular solution 0.75 mL, Intramuscular, Every 14 days, [facility], # 5 mL, 5 Refills, Maintenance, 07/27/21 9:48:00 EDT, [facility], 188, cm, 07/27/21 8:34:00 EDT, Height, 125.2, kg, 06/20/20 14:28:00 EST, Dry Weight Start Date: 07/27/21 Status: Ordered tiZANidine 4 mg oral tablet 4 mg, 1, tablet, By Mouth, 3 times a day, PRN, # 90 tablet, Refills 11, Tot. Refills 11, Maintenance, as needed for muscle spasm, 07/08/20 15:40:00 EDT, Route to Pharmacy Electronically, [facility], 188, cm, 07/08/20 13:42:00 EDT, Height, 12... Start Date: 07/08/20 Status: Ordered traZODone 100 mg oral tablet TAKE ONE TO TWO TABLETS BY MOUTH AT BEDTIME NEEDED S. 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
--- OUTSIDE RECORDS SUMMARY | 2023-10-11 08:15 | XMS_ITS | Continuity of Care Document ---
Author Organization [facility] Address [address] [place] [id number]- Care Team Providers Care Accounting Software Specialist Name Role Phone Vamshi Man MD Primary Care Physician Encounter [facility] Date(s): 07/16/23 - 08/15/23 [facility]/[address] [address]- Allergies, Adverse Reactions, Alerts Substance Reaction Severity Status penicillin 1 rash Resolved penicillins Active Other Food Allergy fresh peaches - itch y mouth, throat and lips swell Active Latex RASH Active 1rash per mother as child. Did take a penicillin for treatment of H pylori per pt w/o problem. Immunizations Given and Recorded Vaccine Date Status Refusal Reason SARS-CoV-2(COVID-19)mRNA-LNP vac([id number]) 01/30/23 Given influenza virus vaccine, inactivated 01/05/23 [...] influenza virus vaccine, inactivated 03/19/06 Give n [id number] 12y+ bivalent booster vax 02/16/22 Given pneumococcal 20-valent conjugate vaccine 02/16/22 Given Influenza Virus Vaccine (oldterm) 9 01/27/22 Recor ded Influenza Virus Vaccine (oldterm) 01/26/21 Recorde d SARS-CoV-2 mRNA ([id number]) vax 11/11/21 Given SARS-CoV-2 (COVID-19) mRNA BNT-162b2 [...] Elissa Bertrand 13Result Comment: [11/27/2017] REceived at [facility] [place], [place]; ordered by Dr Michael Oliveira 14Location [...] 11 Refills, Maintenance, 02/08/23 10:21:00 EDT, Powder, [facility], replaces Flovent due to insurance coverage, 188, cm, 01/30/23 13:26:00 EDT, Height, 126, kg, 01/30/23 13:26:00 EDT,... Start Date: 02/08/23 Status: Ordered Aspirin Low Dose 81 mg oral delayed release tablet 1 tablet, By Mouth, Daily, # 90 tablet, 4 Refills, Maintenance, 03/01/23 17:49:00 EST, [facility], 188, cm, 01/30/23 13:26:00 EDT, Height, 126, kg, 01/30/23 13:26:00 EDT, Dry Weight Start Date: 03/01/23 Status: Ordered atorvastatin 40 mg oral tablet 1 tablet, By Mouth, Daily, # 90 tablet, 1 Refills, Maintenance, 07/25/23 20:12:00 EDT, [facility], 188, cm, 07/05/23 11:09:00 EDT, [...] 2 Refills, Maintenance, 04/27/22 23:43:00 EST, Cream, [facility], 1 application Topically 2 times a day,Instr:apply to penile rash, 188, cm, 04/27/22 13:44:00 EST, Heigh... Start Date: 04/27/22 Status: Ordered diazepam 10 mg oral tablet See Instructions, PRN, 1 tablet By Mouth 1 hr before MRI, # 1 tablet, Refills 2, Tot. Refills 2, Maintenance, as needed for anxiety, 01/30/23 15:02:00 EDT, Instructions Replace Required Details, Route to Pharmacy Electronically, [facility],... Start Date: 01/30/23 Status: Ordered diclofenac 1% topical gel = 2 Gm, Topically, 4 times a day, PRN for pain, (khmer) not to exceed: 16 gm/day/joint lower limb8 gm/day/joint of upper limb 32 gm/day may interchange for cream, # 100 Gm, 11 Refills, Maintenance, 04/15/22 13:02:00 EST, Gel, [facility]... Start Date: 04/15/22 Status: Ordered docusate [...] 16 Gm, 11 Refills, Maintenance, 07/09/23 11:37:00EDT, [place], [facility], Partial fill upon patient request if the prescription is for a schedule II opioid drug., 2 sprays Nares, Both 2 times... Start Date: 07/09/23 Status: Ordered Freestyle Tatyana Chimayo Freestyle Tatyana Chimayo, See Instructions, # 1 each, Refills 0, [...] days., 08/11/23 11:15:00 EDT, Recently sent to [facility]... Start Date: 08/11/23 Status: [...] 11 Refills, Maintenance, 11/28/21 21:27:00 EDT, Solution, [facility], 188, cm, 11/22/21 16:37:00 EDT, Height, [...] Gm, 5 Refills, Maintenance, 12/22/21 7:28:00 EDT, [facility], same Rx was sent 11/11 w/ [...] 3 Refills, Maintenance, 05/07/23 16:31:00 EST, Tablet, [facility], 188, cm, 04/26/23 13:06:00 EST, [...] tablet, 0 Refills, Maintenance, pain, 10/09/23 21:08:00 EDT,[facility], May partial fill., 0... Start Date: 10/09/23 Status: Ordered methadone 10 mg oral tablet See Instructions, By mouth. 2 tab in AM, 1.5 midday, 2 in evening;for pain. IDC10: G90.5 CRPS. 28 day supply. [facility]., # 154 tablet, 0 Refills, Maintenance, pain, 09/11/23 21:08:00 EDT,[facility], May partial fill., 0... Start Date: 09/11/23 Status: Ordered methadone 10 mg oral tablet See Instructions, By mouth. 2 tab in AM, 1.5 midday, 2 in evening;for pain. IDC10: G90.5 CRPS. 28 day supply. [facility]., # 154 tablet, 0 Refills, Maintenance, pain, 08/14/23 21:08:00 EDT,[facility], May partial fill., 0... [...] 5 Refills, Maintenance, 07/07/23 17:04:00 EDT, Solution, [facility], should still have a couple [...] EDT Start Date: 02/16/22 Status: Ordered Pen [place], 31 G x 8 mm BD Ultra [...] 02/18/23 19:20:00 EST, Route to Pharmacy Electronically, [facility], 188, cm, 01/30/23 13:26:00 EDT, Height, [...] tablet, 5 Refills, Maintenance, 07/09/23 11:09:00 EDT, [facility], 30, 1 tablet By Mouth Daily, 188, cm, 07/05/23 11:09:00 EDT, Height, 126.09, kg, 04/26/23 13:06:00 EST, Dry Weight Start Date: 07/09/23 Status: Ordered tamsulosin 0.4 mg oral capsule 0.8 mg, 2, capsule, By Mouth, Daily, dose increase, # 180 capsule, Refills 11, Tot. Refills 11, Maintenance, 07/26/23 14:15:00 EDT, Route to Pharmacy Electronically, [facility], 188, cm, 07/26/23 13:30:00 EDT, Height, 121.81, kg, 07/26/23 13... Start Date: 07/26/23 Status: Ordered Test Strips See Instructions, # 100 each, Refills 5, Tot. Refills 5, Maintenance, Precision Ganga strips (for Freestyle Tatyana glucometer). Type 2 diabetes mellitus on insulin (E11, Z79.4). Test 2-4x/day if symptoms, or sensor concerns., 02/08/23 10:36:00 EDT, [place] Start Date: 02/08/23 Status: Ordered Test Strips [...] Intramuscular, Every 14 days, IM or subcutaneous. [facility]., # 2 mL, 5 Refills, Maintenance, 08/11/23 11:20:00 EDT, [facility], Last sent to [facility]. Sending now to [facility] due to pt request msg [...] tablet, 11 Refills, Maintenance, 03/24/21 21:00:00 EST, [facility], 188, cm, 03/22/21 14:17:00 EST, Height, 125.2, kg, 06/20/20 14:28:00 EST, Dry Weight Start Date: 03/24/21 Status: Ordered Vitamin D3 1000 intl units oral tablet 1 tablet, By Mouth, Daily, # 90 tablet, 4 Refills, Maintenance, 04/01/23 22:28:00 EST, [facility], 188, cm, 01/30/23 13:26:00 EDT, [...] Name: Shoaib An RN Position: [facility] RN Supv Member Role: Primary Care Nurse Name: Donovan DE LOS SANTOS, Vamshi Oshea Position: [facility] Physician - Primary Care Member Role: PCP Address: Address: [address] [place] [address]- Name: Luz Potter Position: [facility] Outreach Member Role: Lifetime Consulting Physician Name: Miki Rodriguez MD Position: [facility] Renal MD Member Role: Lifetime Consulting Physician Address: Address: [address] [facility], [place] [address]- Care Team Related Persons Name: BRANDON MTZ Address: home [address] [facility] [place] [address] Name: BRANDON BARKER Address: home [address] [place] [address] Name: ROSALINDA BERTRAND
--- OUTSIDE RECORDS SUMMARY | 2023-10-11 08:15 | XMS_ITS | Continuity of Care Document ---
Author Organization [facility] Address [address] [place] [address]- Care Team Providers Care Yarn Conditioner Name Role Phone Vamshi Man MD Primary Care Physician [phone] Encounter [facility] Date(s): 08/22/22 - 09/21/22 [facility]/[place] [address]- [place] Allergies, Adverse Reactions, Alerts Substance Reaction Severity Status penicillin 1 rash Resolved Latex RASH Active Other Food Allergy fresh peaches - itch y mouth, throat and lips swell Active 1rash per mother as child. Did take a penicillin for treatment of H pylori per pt w/o problem. Immunizations Given and Recorded Vaccine Date Status Refusal Reason [id number] 12y+ bivalent booster vax 02/16/22 Given pneumococcal 20-valent conjugate vaccine 02/16/22 Given Influenza Virus Vaccine (oldterm) 1 01/27/22 Recor ded Influenza Virus Vaccine (oldterm) 01/26/21 Recorde d SARS-CoV-2 mRNA ([id number]) vax 11/11/21 Given SARS-CoV-2 (COVID-19) mRNA BNT-162b2 [...] Elissa Bertrand 13Result Comment: [11/27/2017] REceived at [facility] [place], [place]; ordered by Dr Michael Oliveira 14Location [...] tablet, 5 Refills, Maintenance, 09/06/22 21:30:00 EDT, [facility], 188, cm, 07/18/22 14:01:00 EDT, Height, 122.63, kg, 11/22/21 16:37:00 EDT, Dry Weight Start Date: 09/06/22 Status: Ordered atorvastatin 40 mg oral tablet 1 tablet, By Mouth, Daily, # 90 tablet, 1 Refills, Maintenance, 04/10/22 12:34:00 EST, [facility], 188, cm, 02/16/22 13:07:00 EDT, Height, [...] 0 Refills, Maintenance, 05/15/22 16:24:00 EST, Tablet, [facility], Partial fill upon [...] 2 Refills, Maintenance, 04/27/22 23:43:00 EST, Cream, [facility], 1 application Topically 2 times a day,Instr:apply to penile rash, 188, cm, 04/27/22 13:44:00 EST, [facility]... Start Date: 04/27/22 Status: Ordered diclofenac 1% topical gel = 2 Gm, Topically, 4 times a day, PRN for pain, (montserratian) not to exceed: 16 gm/day/joint lower limb8 [...] 0 Refills, Maintenance, 09/03/22 13:58:00 EDT, Tablet, [facility], 188, cm, 07/18/22 14:01:00 EDT, Height, 122.63, kg, 11/22/21... Start Date: 09/03/22 Status: Ordered fexofenadine 60 mg oral tablet 1 tablet = 60 mg, By Mouth, 2 times a day, PRN for allergy symptoms, # 20 tablet, 0 Refills, Maintenance, 09/03/22 13:58:00 EDT, Tablet, [facility], Partial fill upon patient request if [...] tablet, 0 Refills, Maintenance, 04/07/22 15:51:00 EST, [facility], 188, cm, 02/16/22 13:07:00 EDT, Heigh... Start [...] 11 Refills, Maintenance, 11/28/21 21:27:00 EDT, Solution, [facility], 188, cm, 11/22/21 16:37:00 EDT, Height, [...] mL, 5 Refills, Maintenance, 08/02/22 14:51:00 EDT, [facility], 188, cm, 07/18/22 14:01:00 EDT, Height, 122.63,kg, 11/22/21 16:37:00 EDT, Dry Weight Start Date: 08/02/22 Status: Ordered latanoprost 0.005% ophthalmic solution 0 Refills, Maintenance, 05/11/20 16:57:00 EST Start Date: 05/11/20 Status: Ordered lidocaine 5% topical ointment See Instructions, PRN Pain , Moderate, 1 APPLICATION TOPICALLY 3 TIMES A DAY, # 50 Gm, 5 Refills, Maintenance, 12/22/21 7:28:00 EDT, [facility], same Rx was sent 11/11 w/ [...] 0 Refills, Maintenance, 01/12/22 7:27:00 EDT, Tablet, [facility], 188, cm, 12/26/21 14:06:00 EDT, Height, 122.63, kg, 11/22/21 16:37:00 EDT, Dry Weight Start Date: 01/12/22 Status: Ordered losartan 100 mg oral tablet 1 tablet, By Mouth, Daily in AM, # 30 tablet, 5 Refills, 03/20/22 10:07:00 EST, [facility], 188, cm, 02/16/22 13:07:00 EDT, Height, 122.63, kg, 11/22/21 16:37:00 EDT, Dry Weight Start Date: 03/20/22 Status: Ordered LUBRIC TEARS CALE 0.4-0.3% Milliliters INSTILL 1 DROP FOUR TIMES DAILY EACH EYE Start Date: 05/11/20 Status: Ordered magnesium oxide 400 mg oral tablet 1 tablet = 400 mg, By Mouth, Daily, # 30 tablet, 11 Refills, Maintenance, 04/27/22 15:29:00 EST, Tablet, [facility], Partial fill upon patient request if the prescription is for a schedule II opioid drug., 188, cm, 04/27/22 13:44:00 EST, Hei... Start Date: 04/27/22 Status: Ordered meloxicam 15 mg oral tablet 1 tablet = 15 mg, By Mouth, Daily, Take with food PRN back pain [place], # 14 tablet, 0 Refills, Maintenance, 11/25/21 13:26:00 EDT, [facility], Partial fill upon [...] tablet, 0 Refills, Maintenance, pain, 10/10/22 19:56:00 EDT,[facility], May partial fill., 10/10/22... Start Date: 10/10/22 Status: Ordered methadone 10 mg oral tablet See Instructions, By mouth. 2 tab in AM, 1.5 midday, 2 in evening;for pain. IDC10: G90.5 CRPS. 28 day supply. [facility]., # 154 tablet, 0 Refills, Maintenance, pain, 09/12/22 19:56:00 EDT,[facility], May partial fill., 09/12/22... Start Date: 09/12/22 Status: Ordered methadone 10 mg oral tablet See Instructions, By mouth. 2 tab in AM, 1.5 midday, 2 in evening;for pain. IDC10: G90.5 CRPS. 28 day supply. [facility]., # 154 tablet, 0 Refills, Maintenance, pain, 08/15/22 19:56:00 EDT,[facility], May partial fill., 08/15/22... Start Date: 08/15/22 Status: Ordered methadone 10 mg oral tablet See Instructions, By mouth. 2 tab in AM, 1.5 midday, 2 in evening;for pain. IDC10: G90.5 CRPS. 28 day supply. [facility]., # 154 tablet, 0 Refills, Maintenance, pain, 04/25/22 23:30:00 EST,[facility], May partial fill., 04/25/22... Start Date: 04/25/22 Status: Ordered Metoclopramide = 10 mg, By Mouth, 3 times a day before meals and bedtime, 0 Refills, Maintenance, 08/20/18 13:55:26 EDT Start Date: 08/20/18 Status: Ordered multivitamin Multiple Vitamins oral tablet 1 tablet, By Mouth, Daily, B complex multivitamin, # 30 tablet, 11 Refills, Maintenance, 11/22/21 17:58:00 EDT, [facility], Partial fill upon [...] Date: 02/16/22 Status: Ordered PEN NEEDLES MIS [id number] PEN NEEDLES MIS [id number], See Instructions, # 100 each, 5 Refills, Maintenance, USE DAILY TYPE 2 DIABETES MELLITUS ON INSULIN WITH PEN, 08/25/22 16:39:00 EDT, 188, cm, 07/18/22 14:01:00 EDT, Height, 122.63, kg, 11/22/21 16:37:00 EDT, Dry Weight Start Date: 08/25/22 Status: Ordered Pen [place], 31 G x 8 mm BD Ultra Fine III See Instructions, # 150 each, Refills 11, Tot. Refills 11, Maintenance, use 2- 5x/day Type 2 Diabetes Mellitus on Lantus and Humalog insulin with pen, 05/30/22 12:24:00 EST, [facility], 188, cm, 05/19/22 10:14:00 EST, Height, [...] mL, 11 Refills, Maintenance, 04/27/22 23:40:00 EST, [facility], 188, cm, 04/27/22 13:44:00 EST, Height, 122.63, kg, 11/22/21 16:37:00 EDT,... Start Date: 04/27/22 Status: Ordered Singulair 10 mg oral tablet 10 mg, 1, tablet, By Mouth, Daily, # 90 tablet, Refills 3, Tot. Refills 3, Maintenance, 03/30/20 21:31:00 EST, Route to Pharmacy Electronically, [facility], 185, cm, 02/25/20 10:29:00 EST, Height, 126.81, kg, 02/25/20 10:29:00 EST, Dry Weight Start Date: 03/30/20 Status: Ordered tamsulosin 0.4 mg oral capsule 0.8 mg, 2, capsule, By Mouth, Daily, dose increase, # 60 capsule, Refills 11, Tot. Refills 11, Maintenance, 07/27/22 11:57:00 EDT, Route to Pharmacy Electronically, [facility], 188, cm, 07/18/22 14:01:00 EDT, Height, [...] Intramuscular, Every 14 days, IM or subcutaneous. [facility]., # 2 mL, 5 Refills, Maintenance, 07/26/22 21:21:00 EDT, [facility], 188, cm, 07/18/22 14:01:00 EDT, Height, 122.63, kg, 11/22/21 16:37:00 EDT, Dry Weight Start Date: 07/26/22 Status: Ordered tiZANidine 4 mg oral tablet 4 mg, 1, tablet, By Mouth, 3 times a day, PRN, # 90 tablet, Refills 11, Tot. Refills 11, Maintenance, as needed for muscle spasm, 08/18/22 8:03:00 EDT, Route to Pharmacy Electronically, [facility], 188, cm, 07/18/22 14:01:00 EDT, Height, 122... Start Date: 08/18/22 Status: Ordered traZODone 100 mg oral tablet TAKE ONE TO TWO TABLETS BY MOUTH AT BEDTIME NEEDED SZayra Morales Start Date: 05/11/20 Status: Ordered Tylenol Extra Strength 500 mg oral tablet 2 tablet = 1,000 mg, By Mouth, 3 times a day, # 30 tablet, 11 Refills, Maintenance, 03/24/21 21:00:00 EST, [facility], 188, cm, 03/22/21 14:17:00 EST, Height, 125.2, kg, 06/20/20 14:28:00 EST, Dry Weight Start Date: 03/24/21 Status: Ordered Vitamin D3 1000 intl units oral tablet 1 tablet, By Mouth, Daily, for 30 days, # 30 tablet, 11 Refills, Physician Stop 10/30/22 17:07:00 EDT, 11/04/21 17:07:00 EDT, [facility], 188, cm, 09/15/21 12:49:00 EDT, Height, [...] Personnel Name: Shoaib An RN Position: [facility] RN Supv Member Role: Primary Care Nurse Name: Donovan DE LOS SANTOS, Vamshi Oshea Position: [facility] Physician - Primary Care Member Role: PCP Address: Address: [address] [place] [address]- Name: Miki Rodriguez MD Position: [facility] Renal MD Member Role: Lifetime Consulting Physician Address: Address: [address] [facility] [place] [address]- Care Team Related Persons Name: BRANDON MTZ Address: home [address] [place] [address] Name: BRANDON BARKER Address: home [address] [place] [address] Name: ROSALINDA BERTRAND Address: home [address] [place] [address]
--- OUTSIDE RECORDS SUMMARY | 2023-10-11 08:15 | XMS_ITS | Continuity of Care Document ---
Author Organization [facility] Address Unknown Care Team Providers Care Promotions Specialist Name Role Phone Vamshi Man MD Primary Care Physician [facility]counter [facility] Date(s): 06/28/21 - 07/28/21 [facility] Allergies, Adverse Reactions, Alerts [...] Elissa Bertrand 12Result Comment: [11/27/2017] REceived at [facility] [place], [place]; ordered by Dr Michael Oliveira 13Location [...] tablet, 5 Refills, Maintenance, 05/14/21 20:06:00 EST, [facility], 188, cm, 03/22/21 14:17:00 EST, Height, 125.2, kg, 06/20/20 14:28:00 EST, Dry Weight Start Date: 05/14/21 Status: Ordered atorvastatin 40 mg oral tablet 1 tablet, By Mouth, Daily, # 90 tablet, 1 Refills, [facility], 188, cm, 03/22/21 14:17:00EST, Height, 125.2, [...] 2 Refills, Maintenance, 01/07/20 14:49:00 EDT, Cream, [facility], 1 application Topically 2 times a day,Instr:apply to penile rash, 185, cm, 01/07/20 13:55:00 EDT, Francheska... Start Date: 01/07/20 Status: Ordered Cozaar 100 mg oral tablet 1 tablet = 100 mg, By Mouth, Daily in AM, # 30 tablet, 11 Refills, Maintenance, 09/22/20 9:41:00 EDT, Tablet, [facility], duplicate rx. original sent 09/16/19. remaining [...] 06/25/20 15:39:00 EST, Route to Pharmacy Electronically, [facility], Partial f... Start Date: 06/25/20 Status: Ordered diclofenac 1% topical gel = 2 Gm, Topically, 4 times a day, PRN for pain, (libyan) not to exceed: 16 gm/day/joint lower limb8 gm/day/joint of upper limb 32 gm/day may interchange for cream, # 100 Gm, 5 Refills, Maintenance,07/08/20 15:35:00 EDT, Gel, [facility] Start Date: 07/08/20 Status: Ordered docusate [...] tablet, 11 Refills, Maintenance, 07/25/21 20:18:00 EDT, [facility], 188, cm, 06/28/21 16:20:00 EDT, Height, [...] mL, 11 Refills, Maintenance, 01/14/21 18:16:00 EDT, [facility], 188, cm, 12/22/20 9:45:00 EDT, Height, 125.2, kg, 06/20/20 14:28:00EST, Dry Weight Start Date: 01/14/21 Status: Ordered latanoprost 0.005% ophthalmic solution 0 Refills, Maintenance, 05/11/20 16:57:00 EST Start Date: 05/11/20 Status: Ordered lidocaine 5% topical ointment See Instructions, 1 APPLICATION TOPICALLY 3 TIMES A DAY, # 70.88 Gm, 4 Refills, Acute, [facility], 14, 1 APPLICATION TOPICALLY 3 TIMES [...] a day, # 60 tablet, 5 Refills, [facility], 188, cm, 06/28/21 16:20:00 EDT, Height, 125.2, kg, 06/20/20 14:28:00 EST, Dry Weight Start Date: 07/08/21 Status: Ordered methadone 10 mg oral tablet See Instructions, By mouth. 2 tab in AM, 1.5 midday, 2 in evening;for pain. IDC10: G90.5 CRPS. 28 day supply. [facility]., # 154 tablet, 0 Refills, Maintenance, pain, 07/19/21 1:23:00 EDT, [facility], May partial fill., 07/19/21,... Start Date: 07/19/21 Status: Ordered methadone 10 mg oral tablet See Instructions, By mouth. 2 tab in AM, 1.5 midday, 2 in evening;for pain. IDC10: G90.5 CRPS. 28 day supply. [facility]., # 154 tablet, 0 Refills, Maintenance, pain, 06/21/21 22:11:00 EST,[facility], May partial fill., 06/21/21... Start Date: 06/21/21 [...] 0 Refills, Soft Stop, 05/25/21 10:17:00 EST, [facility], 188, cm, 05/25/21 9:26:00 EST, Height, 125.2, kg, 06/20/20 14:28:00 EST, Dry Weight Start Date: 05/25/21 Status: Ordered nystatin-triamcinolone topical 125633 u/gm-0.1% ointment 1 applicator, Topically, 3 times a day, to foreskin area FOR 3 DAYS then switch to other antifungal, # 15 Gm, 1 Refills, Maintenance, 05/25/21 10:20:00 EST, [facility], 1 applicator Topically 3 times a [...] EDT Start Date: 08/20/18 Status: Ordered Pen [place], 31 G x 8 mm BD Ultra [...] mL, 11 Refills, Maintenance, 05/25/21 10:14:00 EST, [facility], Partial fill upon patient request if the prescription is for a schedule II op... Start Date: 05/25/21 Status: Ordered Singulair 10 mg oral tablet 10 mg, 1, tablet, By Mouth, Daily, # 90 tablet, Refills 3, Tot. Refills 3, Maintenance, 03/30/20 21:31:00 EST, Route to Pharmacy Electronically, [facility], 185, cm, 02/25/20 10:29:00 EST, Height, [...] solution 0.75 mL, Intramuscular, Every 14 days, [facility], # 5 mL, 5 Refills, Maintenance, 07/27/21 9:48:00 EDT, [facility], 188, cm, 07/27/21 8:34:00 EDT, Height, 125.2, kg, 06/20/20 14:28:00 EST, Dry Weight Start Date: 07/27/21 Status: Ordered tiZANidine 4 mg oral tablet 4 mg, 1, tablet, By Mouth, 3 times a day, PRN, # 90 tablet, Refills 11, Tot. Refills 11, Maintenance, as needed for muscle spasm, 07/08/20 15:40:00 EDT, Route to Pharmacy Electronically, [facility], 188, cm, 07/08/20 13:42:00 EDT, Height, 12... Start Date: 07/08/20 Status: Ordered traZODone 100 mg oral tablet TAKE ONE TO TWO TABLETS BY MOUTH AT BEDTIME NEEDED S. McAnulty Start Date: 05/11/20 Status: Ordered Tylenol Extra Strength 500 mg oral tablet 2 tablet = 1,000 mg, By Mouth, 3 times a day, # 30 tablet, 11 Refills, Maintenance, 03/24/21 21:00:00 EST, [facility], 188, cm, 03/22/21 14:17:00 EST, Height, 125.2, kg, 06/20/20 14:28:00 EST, Dry Weight Start Date: 03/24/21 Status: Ordered Vitamin D3 1000 intl units oral tablet 1 tablet, By Mouth, Daily, # 30 tablet, 5 Refills, [facility], 188, cm, 03/22/21 14:17:00EST, Height, 125.2, [...]
--- OUTSIDE RECORDS SUMMARY | 2023-10-11 08:16 | XMS_ITS | Continuity of Care Document ---
Author Organization [facility] Address [address] [place] [id number]- Care Team Providers Care Propellant Charge Loader Name Role Phone Vamshi Man MD Primary Care Physician Encounter [facility] Date(s): 08/01/23 - 08/31/23 [facility]/[address] [address]- Allergies, Adverse Reactions, Alerts Substance Reaction Severity Status Other Food Allergy fresh peaches - itch y mouth, throat and lips swell Active penicillin 1 rash Resolved penicillins Active Latex RASH Active 1rash per mother as child. Did take a penicillin for treatment of H pylori per pt w/o problem. Immunizations Given and Recorded Vaccine Date Status Refusal Reason SARS-CoV-2(COVID-19)mRNA-LNP vac([id number]) 01/30/23 Given influenza virus vaccine, inactivated 01/05/23 [...] influenza virus vaccine, inactivated 03/19/06 Give n [id number] 12y+ bivalent booster vax 02/16/22 Given pneumococcal 20-valent conjugate vaccine 02/16/22 Given Influenza Virus Vaccine (oldterm) 9 01/27/22 Recor ded Influenza Virus Vaccine (oldterm) 01/26/21 Recorde d SARS-CoV-2 mRNA ([id number]) vax 11/11/21 Given SARS-CoV-2 (COVID-19) mRNA BNT-162b2 [...] Bertrand 13Result Comment: [11/27/2017] REceived at [facility] at [place], [place]; ordered by Dr Michael Oliveira 14Location [...] 11 Refills, Maintenance, 02/08/23 10:21:00 EDT, Powder, [facility], replaces Flovent due to insurance coverage, 188, cm, 01/30/23 13:26:00 EDT, Height, 126, kg, 01/30/23 13:26:00 EDT,... Start Date: 02/08/23 Status: Ordered Aspirin Low Dose 81 mg oral delayed release tablet 1 tablet, By Mouth, Daily, # 90 tablet, 4 Refills, Maintenance, 03/01/23 17:49:00 EST, [facility], 188, cm, 01/30/23 13:26:00 EDT, Height, 126, kg, 01/30/23 13:26:00 EDT, Dry Weight Start Date: 03/01/23 Status: Ordered atorvastatin 40 mg oral tablet 1 tablet, By Mouth, Daily, # 90 tablet, 1 Refills, Maintenance, 07/25/23 20:12:00 EDT, [facility], 188, cm, 07/05/23 11:09:00 EDT, Height, [...] 2 Refills, Maintenance, 04/27/22 23:43:00 EST, Cream, [facility], 1 application Topically 2 times a day,Instr:apply to penile rash, 188, cm, 04/27/22 13:44:00 EST, Heigh... Start Date: 04/27/22 Status: Ordered diazepam 10 mg oral tablet See Instructions, PRN, 1 tablet By Mouth 1 hr before MRI, # 1 tablet, Refills 2, Tot. Refills 2, Maintenance, as needed for anxiety, 01/30/23 15:02:00 EDT, Instructions Replace Required Details, Route to Pharmacy Electronically, [facility],... Start Date: 01/30/23 Status: Ordered diclofenac 1% topical gel = 2 Gm, Topically, 4 times a day, PRN for pain, (haitian) not to exceed: 16 gm/day/joint lower limb8 gm/day/joint of upper limb 32 gm/day may interchange for cream, # 100 Gm, 11 Refills, Maintenance, 04/15/22 13:02:00 EST, Gel, [facility]... Start Date: 04/15/22 Status: Ordered docusate [...] 16 Gm, 11 Refills, Maintenance, 07/09/23 11:37:00EDT, [place], [facility], Partial fill upon patient request if the prescription is for a schedule II opioid drug., 2 sprays Nares, Both 2 times... Start Date: 07/09/23 Status: Ordered Freestyle Tatyana [place] Freestyle Tatyana [place], See Instructions, # 1 each, Refills [...] days., 08/11/23 11:15:00 EDT, Recently sent to [facility]... Start Date: 08/11/23 Status: [...] 11 Refills, Maintenance, 11/28/21 21:27:00 EDT, Solution, [facility], 188, cm, 11/22/21 16:37:00 EDT, Height, [...] Gm, 5 Refills, Maintenance, 12/22/21 7:28:00 EDT, [facility], same Rx was sent 11/11 w/ [...] 3 Refills, Maintenance, 05/07/23 16:31:00 EST, Tablet, [facility], 188, cm, 04/26/23 13:06:00 EST, Height, 126.09, kg, 04/26/23 13:06:00 EST, Dry Weight Start Date: 05/07/23 Status: Ordered metFORMIN 750 mg oral tablet, extended release 1 tablet = 750 mg, By Mouth, Daily, [replaces the metformin 500mg bid], # 30 tablet, 5 Refills, Maintenance, 05/15/23 8:10:00 EST, ER Tablet, [facility], Partial fill upon patient request if the prescription is for a schedule II opioid drug.... Start Date: 05/15/23 Status: Ordered methadone 10 mg oral tablet See Instructions, By mouth. 2 tab in AM, 1.5 midday, 2 in evening;for pain. IDC10: G90.5 CRPS. 28 day supply. [facility]., # 154 tablet, 0 Refills, Maintenance, pain, 10/09/23 21:08:00 EDT,[facility], May partial fill., 0... Start Date: 10/09/23 Status: Ordered methadone 10 mg oral tablet See Instructions, By mouth. 2 tab in AM, 1.5 midday, 2 in evening;for pain. IDC10: G90.5 CRPS. 28 day supply. [facility]., # 154 tablet, 0 Refills, Maintenance, pain, 09/11/23 21:08:00 EDT,[facility], May partial fill., 0... Start Date: 09/11/23 Status: Ordered methadone 10 mg oral tablet See Instructions, By mouth. 2 tab in AM, 1.5 midday, 2 in evening;for pain. IDC10: G90.5 CRPS. 28 day supply. [facility]., # 154 tablet, 0 Refills, Maintenance, pain, 08/14/23 21:08:00 EDT,[facility], May partial fill., 0... Start Date: 08/14/23 Status: Ordered methadone 10 mg oral tablet See Instructions, By mouth. 2 tab in AM, 1.5 midday, 2 in evening;for pain. IDC10: G90.5 CRPS. 28 day supply. [facility]., # 154 tablet, 0 Refills, Maintenance, pain, 04/24/23 22:44:00 EST,[facility], May partial fill., 188, cm,... Start Date: 04/24/23 Status: Ordered Mounjaro 10 mg/0.5 mL subcutaneous solution = 10 mg, Subcutaneous Infusion, Every 7 days, please interchange with other Rx for 7.5 mg if unavailable., # 4 each, 11 Refills, Maintenance, 07/26/23 14:10:00 EDT, [facility], Partial fillupon patient request if the prescription is for a s... Start Date: 07/26/23 Status: Ordered Mounjaro 7.5 mg/0.5 mL subcutaneous solution = 7.5 mg, Subcutaneous Injection, Every week, rotate injection sites, # 4 each, 5 Refills, Maintenance, 07/07/23 17:04:00 EDT, Solution, [facility], should still have a couple months [...] 1 Refills, Soft Stop, 02/16/22 23:38:00 EDT, [facility], 188, cm, 02/16/22 13:07:00 EDT, Height,122.63, kg, 11/22/21 16:37:00 EDT, Dry Weight Start Date: 02/16/22 Status: Ordered ondansetron 4 mg oral tablet Rx by Idalia Sandoval, # 60, Maintenance, 08/11/23 11:48:00 EDT Start Date: 08/11/23 Status: Ordered pantoprazole 40 mg oral delayed release tablet 0 Refills, Maintenance, 02/16/22 23:33:00 EDT Start Date: 02/16/22 Status: Ordered Pen [place], 31 G x 8 mm BD Ultra [...] 02/18/23 19:20:00 EST, Route to Pharmacy Electronically, [facility], 188, cm, 01/30/23 13:26:00 EDT, Height, [...] tablet, 5 Refills, Maintenance, 07/09/23 11:09:00 EDT, [facility], 30, 1 tablet By Mouth Daily, 188, cm, 07/05/23 11:09:00 EDT, Height, 126.09, kg, 04/26/23 13:06:00 EST, Dry Weight Start Date: 07/09/23 Status: Ordered tamsulosin 0.4 mg oral capsule 0.8 mg, 2, capsule, By Mouth, Daily, dose increase, # 180 capsule, Refills 11, Tot. Refills 11, Maintenance, 07/26/23 14:15:00 EDT, Route to Pharmacy Electronically, [facility], 188, cm, 07/26/23 13:30:00 EDT, Height, 121.81, kg, 07/26/23 13... Start Date: 07/26/23 Status: Ordered Test Strips See Instructions, # 100 each, Refills 5, Tot. Refills 5, Maintenance, Precision Ganga strips (for Freestyle Tatyana glucometer). Type 2 diabetes mellitus on insulin (E11, Z79.4). Test 2-4x/day if symptoms, or sensor concerns., 02/08/23 10:36:00 EDT, [place]... Start Date: 02/08/23 Status: Ordered Test Strips [...] Intramuscular, Every 14 days, IM or subcutaneous. [facility]., # 2 mL, 5 Refills, Maintenance, 08/11/23 11:20:00 EDT, [facility], Last sent to [facility]. Sending now to [facility] due to pt request msg [email or web address]... Start Date: 08/11/23 Status: Ordered tiZANidine 4 mg oral tablet 4 mg, 1, tablet, By Mouth, 3 times a day, PRN, # 90 tablet, Refills 11, Tot. Refills 11, Maintenance, as needed for muscle spasm, 08/18/22 8:03:00 EDT, Route to Pharmacy Electronically, [facility], 188, cm, 07/18/22 14:01:00 EDT, Height, 122... Start Date: 08/18/22 Status: Ordered Toujeo Max SoloStar 300 units/mL subcutaneous solution = 70 units, Subcutaneous Injection, Daily, decrease frin 90u, # 12 mL, 11 Refills, Maintenance, 07/26/23 14:19:00 EDT, Solution, [facility], replaces Lantus due to insurance coverage, 188, cm, 07/26/23 13:30:00 EDT, Height, 121.81, kg, 07/25... Start Date: 07/26/23 Status: Ordered Tylenol Extra Strength 500 mg oral tablet 2 tablet = 1,000 mg, By Mouth, 3 times a day, # 30 tablet, 11 Refills, Maintenance, 03/24/21 21:00:00 EST, [facility], 188, cm, 03/22/21 14:17:00 EST, Height, 125.2, kg, 06/20/20 14:28:00 EST, Dry Weight Start Date: 03/24/21 Status: Ordered Vitamin D3 1000 intl units oral tablet 1 tablet, By Mouth, Daily, # 90 tablet, 4 Refills, Maintenance, 04/01/23 22:28:00 EST, [facility], 188, cm, 01/30/23 13:26:00 EDT, Height, [...] Personnel Name: Shoaib An RN Position: [facility] RN Supv Member Role: Primary Care Nurse Name: Donovan DE LOS SANTOS, Vamshi Oshea Position: [facility] Physician - Primary Care Member Role: PCP Address: Address: [address] [place] [address]- Name: Luz Potter Position: [facility] Outreach Member Role: Lifetime Consulting Physician Name: Miki Rodriguez MD Position: [facility] Renal MD Member Role: Lifetime Consulting Physician Address: Address: [address] [facility], [place] [address]- Care Team Related Persons Name: BRANDON MTZ Address: home [address] [place] [address] Name: BRANDON BARKER Address: home [address] [place] [address] Name: ROSALINDA BERTRAND
--- OUTSIDE RECORDS SUMMARY | 2023-10-11 08:16 | XMS_ITS | Continuity of Care Document ---
Author Organization [facility] Address [address] [place] [address]- Care Team Providers Care Manager Information Name Role Phone Vamshi Man MD Primary Care Physician [phone] Encounter [facility] Date(s): 01/10/22 - 02/09/22 [facility]/[place] [address]- [place] Allergies, Adverse Reactions, Alerts Substance Reaction Severity Status penicillin 1 rash Resolved Latex RASH Active Other Food Allergy fresh peaches - itch y mouth, throat and lips swell Active 1rash per mother as child. Did take a penicillin for treatment of H pylori per pt w/o problem. Immunizations Given and Recorded Vaccine Date Status Refusal Reason SARS-CoV-2 mRNA ([id number]) vax 11/11/21 Given SARS-CoV-2 (COVID-19) mRNA BNT-162b2 [...] Elissa Bertrand 12Result Comment: [11/27/2017] REceived at [facility] at [place], [place]; ordered by Dr Michael Oliveira 13Location [...] tablet, 5 Refills, Maintenance, 11/20/21 13:03:00 EDT, [facility], 188, cm, 11/11/21 12:46:00 EDT, Height, 125.2, kg, 06/20/20 14:28:00 EST, Dry Weight Start Date: 11/20/21 Status: Ordered atorvastatin 40 mg oral tablet 1 tablet, By Mouth, Daily, # 90 tablet, 1 Refills, [facility], 188, cm, 09/15/21 12:49:00EDT, Height, 125.2, [...] 2 Refills, Maintenance, 09/15/21 14:49:00 EDT, Cream, [facility], 1 application Topically 2 times a [...] 06/25/20 15:39:00 EST, Route to Pharmacy Electronically, [facility], Partial f... Start Date: 06/25/20 Status: Ordered diclofenac 1% topical gel = 2 Gm, Topically, 4 times a day, PRN for pain, (syrian) not to exceed: 16 gm/day/joint lower limb8 gm/day/joint of upper limb 32 gm/day may interchange for cream, # 100 Gm, 5 Refills, Maintenance,07/08/20 15:35:00 EDT, Gel, [facility] Start Date: 07/08/20 Status: Ordered docusate [...] Marshall[place], # 28 tablet, 0 Refills, Maintenance, 02/05/22 22:53:00 EDT, [facility], 188, cm, 12/26/21 14:06:00 EDTFrancheska... Start Date: 02/05/22 Stop Date: 02/19/22 Status: Ordered Glucose Monitor See Instructions, PRN, [...] 11 Refills, Maintenance, 11/28/21 21:27:00 EDT, Solution, [facility], 188, cm, 11/22/21 16:37:00 EDT, Height, 122.63, kg, 11/22/21 16:37:00 EDT, Dry We... Start Date: 11/28/21 Status: Ordered Jardiance 10 mg oral tablet 1 tablet, By Mouth, Daily in AM, # 30 tablet, 11 Refills, Maintenance, 07/25/21 20:18:00 EDT, [facility], 188, cm, 06/28/21 16:20:00 EDT, Height, [...] mL, 5 Refills, Maintenance, 01/23/22 8:43:00 EDT, [facility], 188, cm, 12/26/21 14:06:00 EDT, Height, 122.63, kg, 11/22/21 16:37:00 EDT, Dry Weight Start Date: 01/23/22 Status: Ordered latanoprost 0.005% ophthalmic solution 0 Refills, Maintenance, 05/11/20 16:57:00 EST Start Date: 05/11/20 Status: Ordered lidocaine 5% topical ointment See Instructions, PRN Pain , Moderate, 1 APPLICATION TOPICALLY 3 TIMES A DAY, # 50 Gm, 5 Refills, Maintenance, 12/22/21 7:28:00 EDT, [facility], same Rx was sent 11/11 w/ 5 refills, 1 APPLICATION TOPICALLY 3 TIMES A DAY,PRN:Pain , Moderate, 1... Start Date: 12/22/21 Status: Ordered LORazepam 1 mg oral tablet See Instructions, PRN for anxiety, 2 tablets By Mouth 1 hours prior to MRI, # 2 tablet, 0 Refills, Maintenance, 01/12/22 7:27:00 EDT, Tablet, [facility], 188, cm, 12/26/21 14:06:00 EDT, Height, 122.63, kg, 11/22/21 16:37:00 EDT, Dry Weight Start Date: 01/12/22 Status: Ordered losartan 100 mg oral tablet 1 tablet, By Mouth, Daily in AM, # 30 tablet, 5 Refills, [facility], 188, cm, 09/15/21 12:49:00 EDT, Height, [...] tablet, 0 Refills, Maintenance, 11/25/21 13:26:00 EDT, [facility], Partial fill upon patient request if the prescription is for a schedule II opioid drug., 188,... Start Date: 11/25/21 Stop Date: 12/09/21 Status: Ordered metFORMIN 750 mg oral tablet, extended release 1 tablet = 750 mg, By Mouth, Daily, [replaces the metformin 500mg bid], # 30 tablet, 11 Refills, Maintenance, 11/22/21 17:53:00 EDT, ER Tablet, [facility], Partial fill upon patient requestif the prescription is for a schedule II opioid alessandra... Start Date: 11/22/21 Status: Ordered methadone 10 mg oral tablet See Instructions, By mouth. 2 tab in AM, 1.5 midday, 2 in evening;for pain. IDC10: G90.5 CRPS. [address] [facility]., # 154 tablet, 0 Refills, Maintenance, pain, 11/08/21 7:19:00 EDT, [facility], May partial fill., 188, cm,... Start Date: 11/08/21 Status: Ordered methadone 10 mg oral tablet See Instructions, By mouth. 2 tab in AM, 1.5 midday, 2 in evening;for pain. IDC10: G90.5 CRPS. [address] [facility]., # 154 tablet, 0 Refills, Maintenance, pain, 12/06/21 7:20:00 EDT, [facility], May partial fill., 12/06/21,... Start Date: 12/06/21 Status: Ordered methadone 10 mg oral tablet See Instructions, By mouth. 2 tab in AM, 1.5 midday, 2 in evening;for pain. IDC10: G90.5 CRPS. [address] [facility]., # 154 tablet, 0 Refills, Maintenance, pain, 01/31/22 7:25:00 EDT, [facility], May partial fill., 01/31/22,... Start Date: 01/31/22 Status: Ordered methadone 10 mg oral tablet See Instructions, By mouth. 2 tab in AM, 1.5 midday, 2 in evening;for pain. IDC10: G90.5 CRPS. [address] [facility]., # 154 tablet, 0 Refills, Maintenance, pain, 01/03/22 7:12:00 EDT, [facility], May partial fill., 01/03/22,... Start Date: 01/03/22 Status: Ordered Metoclopramide = 10 mg, By Mouth, 3 times a day before meals and bedtime, 0 Refills, Maintenance, 08/20/18 13:55:26 EDT Start Date: 08/20/18 Status: Ordered multivitamin Multiple Vitamins oral tablet 1 tablet, By Mouth, Daily, B complex multivitamin, # 30 tablet, 11 Refills, Maintenance, 11/22/21 17:58:00 EDT, [facility], Partial fill upon patient request if the prescription is for a schedule II opioid drug., 1 tablet By Mouth Daily,Inst... Start Date: 11/22/21 Status: Ordered Narcan 4 mg/0.1 mL nasal spray = 4 mg, Nares, Both, Once, may repeat every 2 to 3 minutes until patient responds, # 2 each, 0 Refills, Soft Stop, 05/25/21 10:17:00 EST, [facility], 188, cm, 05/25/21 9:26:00 EST, Height, 125.2, kg, 06/20/20 14:28:00 EST, Dry Weight Start Date: 05/25/21 Status: Ordered nystatin-triamcinolone topical 416200 u/gm-0.1% ointment 1 applicator, Topically, 3 times a day, to foreskin area FOR 3 DAYS then switch to other antifungal, # 15 Gm, 1 Refills, Maintenance, 05/25/21 10:20:00 EST, [facility], 1 applicator Topically 3 times a [...] Sandoval Start Date: 08/20/18 Status: Ordered Pen [place], 31 G x 8 mm BD Ultra Fine III See Instructions, # 150 each, Refills 11, Tot. Refills 11, Maintenance, use 2- 5x/day Type 2 Diabetes Mellitus on Lantus and Humalog insulin with pen, 02/27/22 13:16:00 EST, [facility], 188, cm, 11/22/21 16:37:00 EDT, Height, 122.63, kg, 11/22/21 16:37:0... Start Date: 02/27/22 Stop Date: 02/22/23 Status: Ordered Pen [place], 31 G x 8 mm BD Ultra [...] each, 11 Refills, Maintenance, 09/15/21 14:29:00 EDT, [facility], Partial fill upon patient request if the prescription is for a schedule II opioid drug., 188, cm, 09/15/21 12:4... Start Date: 09/15/21 Status: Ordered Singulair 10 mg oral tablet 10 mg, 1, tablet, By Mouth, Daily, # 90 tablet, Refills 3, Tot. Refills 3, Maintenance, 03/30/20 21:31:00 EST, Route to Pharmacy Electronically, [facility], 185, cm, 02/25/20 10:29:00 EST, Height, [...] Intramuscular, Every 14 days, IM or subcutaneous. [facility]., # 2 mL, 5 Refills, Maintenance, 02/05/22 22:55:00 EDT, [facility], 188, cm, 12/26/21 14:06:00 EDT, Height, 122.63, kg, 11/22/21 16:37:00 EDT, Dry Weight Start Date: 02/05/22 Status: Ordered tiZANidine 4 mg oral tablet 4 mg, 1, tablet, By Mouth, 3 times a day, PRN, # 90 tablet, Refills 11, Tot. Refills 11, Maintenance, as needed for muscle spasm, 08/12/21 11:09:00 EDT, Route to Pharmacy Electronically, [facility], 188, cm, 07/27/21 8:34:00 EDT, Height, 125... Start Date: 08/12/21 Status: Ordered traZODone 100 mg oral tablet TAKE ONE TO TWO TABLETS BY MOUTH AT BEDTIME NEEDED Damaris Morales Start Date: 05/11/20 Status: Ordered Tylenol Extra Strength 500 mg oral tablet 2 tablet = 1,000 mg, By Mouth, 3 times a day, # 30 tablet, 11 Refills, Maintenance, 03/24/21 21:00:00 EST, [facility], 188, cm, 03/22/21 14:17:00 EST, Height, 125.2, kg, 06/20/20 14:28:00 EST, Dry Weight Start Date: 03/24/21 Status: Ordered Vitamin D3 1000 intl units oral tablet 1 tablet, By Mouth, Daily, for 30 days, # 30 tablet, 11 Refills, Physician Stop 10/30/22 17:07:00 EDT, 11/04/21 17:07:00 EDT, [facility], 188, cm, 09/15/21 12:49:00 EDT, Height, [...] DE LOS SANTOS, Vamshi Oshea Address: Address: [address] [place] [address]
--- OUTSIDE RECORDS SUMMARY | 2023-10-11 08:16 | XMS_ITS | Continuity of Care Document ---
Author Organization [facility] Address [address] [place] [address]- Care Team Providers Care Joint Finisher Name Role Phone Vamshi Man MD Primary Care Physician Encounter [facility] [place] [place] Date(s): 05/24/20 - 07/17/20 [facility]/[address] [address]- Attending Physician: Not on Staff, Attending MD Admitting Physician: Vamshi Man MD Allergies, [...] influenza virus vaccine, inactivated 7 01/12/11 Gi adiranne influenza virus vaccine, inactivated 8 01/25/10 Gi [...] Elissa Bertrand 12Result Comment: [11/27/2017] REceived at [facility] at [place], [place]; ordered by Dr Michael Oliveira 13Location [...] 03/30/20 21:31:00 EST, Route to Pharmacy Electronically, [facility], [facility] rx. original sent 11/04/19. remaining refills sent., [...] capsule, 3 Refills, Maintenance, 03/30/20 21:36:00 EST, [facility], 185, cm, 02/25/20 10:29:00 EST, Height, 126.81, kg, 02/25/20 10:29:00 EST, Dry Weight Start Date: 03/30/20 Status: Ordered clotrimazole 1% topical cream 1 application, Topically, 2 times a day, apply to penile rash, # 30 Gm, 2 Refills, Maintenance, 01/07/20 14:49:00 EDT, Cream, [facility], 1 application Topically 2 times a day,Instr:apply to penile rash, 185, cm, 01/07/20 13:55:00 EDT, Heigh... Start Date: 01/07/20 Status: Ordered Cozaar 100 mg oral tablet 1 tablet = 100 mg, By Mouth, Daily in AM, # 30 tablet, 5 Refills, Maintenance, 03/15/20 17:08:00 EST, Tablet, [facility], duplicate rx. original sent 09/16/19. remaining [...] 06/25/20 15:39:00 EST, Route to Pharmacy Electronically, [facility], Partial f... Start Date: 06/25/20 Status: Ordered diclofenac 1% topical gel = 2 Gm, Topically, 4 times a day, PRN for pain, (danish) not to exceed: 16 gm/day/joint lower limb8 gm/day/joint of upper limb 32 gm/day may interchange for cream, # 100 Gm, 5 Refills, Maintenance,07/08/20 15:35:00 EDT, Gel, [facility]... Start Date: 07/08/20 Status: Ordered docusate [...] 11 Refills, Maintenance, 02/15/20 21:05:00 EST, Solution, [facility], 185, cm, 01/07/20 13:55:00 EDT, Height, [...] mL, 3 Refills, Maintenance, 07/08/20 15:42:00 EDT, [facility], Duplicate rx-Original rx sent 06/22/20. Resent., 188, cm, 07/08/20 13:42:00 EDT, Height, 125.2, kg, 06/20/20 14:28:00 EST,... Start Date: 07/08/20 Status: Ordered latanoprost 0.005% ophthalmic solution 0 Refills, Maintenance, 05/11/20 16:57:00 EST Start Date: 05/11/20 Status: Ordered Lipitor 40 mg oral tablet 1 tablet = 40 mg, By Mouth, Daily, # 90 tablet, 3 Refills, Maintenance, 03/30/20 21:30:00 EST, [facility], duplicate rx. original sent 11/04/19. remaining [...] Refills, Maintenance, 07/08/20 15:40:00 EDT, Tablet, [facility], Duplicate rx-Original rx sent06/22/20. Resent., 188, cm, 07/08/20 13:42:00 EDT, He... Start Date: 07/08/20 Status: Ordered methadone 10 mg oral tablet See Instructions, By mouth. 2 tab in AM, 1.5 midday, 2 in evening;for pain. IDC10: G90.5 CRPS. 28 day supply. [facility]., # 154 tablet, 0 Refills, Maintenance, pain, 07/20/20 15:43:00 EDT,[facility], August partial fill., 188, cm,... Start Date: 07/20/20 Status: Ordered methadone 10 mg oral tablet See Instructions, By mouth. 2 tab in AM, 1.5 midday, 2 in evening;for pain. IDC10: G90.5 CRPS. 28 day supply. [facility]., # 154 tablet, 0 Refills, Maintenance, pain, 08/17/20 15:47:00 EDT,[facility], August partial fill., 08/17/20... Start Date: [...] Start Date: 05/15/18 Status: Ordered nystatin-triamcinolone topical 597633 u/gm-0.1% ointment 1 applicator, Topically, 3 times a day, to foreskin area FOR 3 DAYS then switch to other antifungal, # 15 Gm, 1 Refills, Maintenance, 07/08/20 15:34:00 EDT, [facility], 1 applicator Topically 3 times a [...] EDT Start Date: 08/20/18 Status: Ordered Pen [place], 31 G x 8 mm BD [...] 03/30/20 21:31:00 EST, Route to Pharmacy Electronically, [facility], 185, cm, 02/25/20 10:29:00 EST, Height, [...] solution 0.75 mL, Intramuscular, Every 14 days, [facility], # 5 mL, 5 Refills, Maintenance, 01/11/20 21:30:00 EDT, [facility], 185, cm, 01/07/20 13:55:00 EDT, Height, 127.72, kg, 05/06/19 13:41:00 EST, Dry Weight Start Date: 01/11/20 Status: Ordered tiZANidine 4 mg oral tablet 4 mg, 1, tablet, By Mouth, 3 times a day, PRN, # 90 tablet, Refills 11, Tot. Refills 11, Maintenance, as needed for muscle spasm, 07/08/20 15:40:00 EDT, Route to Pharmacy Electronically, [facility], 188, cm, 07/08/20 13:42:00 EDT, Height, [...] ? chr regional pain syndrome 4s/p Modified Flint procedure, repair of conjoined tendon of extensor [...]
--- OUTSIDE RECORDS SUMMARY | 2023-10-11 08:16 | XMS_ITS | Continuity of Care Document ---
Author Organization [facility] Address Unknown Care Team Providers Care Nutrition Counselor Name Role Phone Vamshi Man MD Primary Care Physician [phone] Encounter [facility] [place] Date(s): 08/23/21 - 09/22/21 [facility] Allergies, Adverse Reactions, Alerts Substance Reaction [...] Elissa Bertrand 12Result Comment: [11/27/2017] REceived at [facility] at [place], [place]; ordered by Dr Michael Oliveira 13Location [...] tablet, 5 Refills, Maintenance, 05/14/21 20:06:00 EST, [facility], 188, cm, 03/22/21 14:17:00 EST, Height, 125.2, kg, 06/20/20 14:28:00 EST, Dry Weight Start Date: 05/14/21 Status: Ordered atorvastatin 40 mg oral tablet 1 tablet, By Mouth, Daily, # 90 tablet, 1 Refills, [facility], 188, cm, 03/22/21 14:17:00EST, Height, 125.2, kg, 06/20/20 14:28:00 EST, Dry Weight Start Date: 04/13/21 Status: Ordered AutoCPAP 9-18 with heated humidification AutoCPAP 9-18 with heated humidification, See Instructions, # 1 each, Refills 0, Tot. Refills 0, Maintenance, use overnight and naps from [facility], 11/04/18 12:28:22 EDT, Compound [...] 2 Refills, Maintenance, 09/15/21 14:49:00 EDT, Cream, [facility], 1 application Topically 2 times a day,Instr:apply to penile rash, 188, cm, 09/15/21 12:49:00 EDT, Heigh... Start Date: 09/15/21 Status: Ordered Cozaar 100 mg oral tablet 1 tablet = 100 mg, By Mouth, Daily in AM, # 30 tablet, 11 Refills, Maintenance, 09/22/20 9:41:00 EDT, Tablet, [facility], duplicate rx. original sent 09/16/19. remaining [...] 06/25/20 15:39:00 EST, Route to Pharmacy Electronically, [facility], Partial f... Start Date: 06/25/20 Status: Ordered diclofenac 1% topical gel = 2 Gm, Topically, 4 times a day, PRN for pain, (romanian) not to exceed: 16 gm/day/joint lower limb8 gm/day/joint of upper limb 32 gm/day may interchange for cream, # 100 Gm, 5 Refills, Maintenance,07/08/20 15:35:00 EDT, Gel, [facility] Start Date: 07/08/20 Status: Ordered docusate [...] 08/22/21 16:07:00 EDT, Route to Pharmacy Electronically, [facility], Partial fill upon patient request i... Start Date: 08/22/21 Status: Ordered gabapentin 600 mg oral tablet 1 tablet = 600 mg, By Mouth, Daily at bedtime, for sciatic pain, # 25 tablet, 1 Refills, Maintenance, 09/15/21 14:34:00 EDT, [facility], Partial fill upon patient request if [...] tablet, 11 Refills, Maintenance, 07/25/21 20:18:00 EDT, [facility], 188, cm, 06/28/21 16:20:00 EDT, Height, [...] mL, 11 Refills, Maintenance, 01/14/21 18:16:00 EDT, [facility], 188, cm, 12/22/20 9:45:00 EDT, Height, 125.2, kg, 06/20/20 14:28:00EST, Dry Weight Start Date: 01/14/21 Status: Ordered latanoprost 0.005% ophthalmic solution 0 Refills, Maintenance, 05/11/20 16:57:00 EST Start Date: 05/11/20 Status: Ordered lidocaine 5% topical ointment See Instructions, PRN Pain , Moderate, 1 APPLICATION TOPICALLY 3 TIMES A DAY, # 50 Gm, 5 Refills, Maintenance, 08/29/21 22:40:00 EDT, [facility], 1 APPLICATION TOPICALLY 3 TIMES A DAY,PRN:Pain , Moderate, 188, cm, 08/26/21 9:59:00 EDT, [facility]... Start Date: 08/29/21 Status: Ordered LORazepam 1 mg oral tablet See Instructions, PRN for anxiety, 2 tablets By Mouth 1 hours prior to MRI, # 2 tablet, 1 Refills, Maintenance, 05/25/21 10:06:00 EST, Tablet, [facility], 188, cm, 05/25/21 9:26:00 EST, Height, [...] 1 Refills, Maintenance, 09/15/21 14:35:00 EDT, Tablet, [facility], Partial fill upon patient request if the prescription is for a schedule II opioid... Start Date: 09/15/21 Status: Ordered metFORMIN 500 mg oral tablet 1 tablet, By Mouth, 2 times a day, # 60 tablet, 5 Refills, [facility], 188, cm, 06/28/21 16:20:00 EDT, Height, 125.2, kg, 06/20/20 14:28:00 EST, Dry Weight Start Date: 07/08/21 Status: Ordered methadone 10 mg oral tablet See Instructions, By mouth. 2 tab in AM, 1.5 midday, 2 in evening;for pain. IDC10: G90.5 CRPS. 28 day supply. [facility]., # 154 tablet, 0 Refills, Maintenance, pain, 09/13/21 22:42:00 EDT,[facility], May partial fill., 09/13/21... Start Date: 09/13/21 Status: Ordered methadone 10 mg oral tablet See Instructions, By mouth. 2 tab in AM, 1.5 midday, 2 in evening;for pain. IDC10: G90.5 CRPS. 28 day supply. [facility]., # 154 tablet, 0 Refills, Maintenance, pain, 10/11/21 14:47:00 EDT,[facility], May partial fill., 10/11/21... Start Date: 10/11/21 Status: Ordered Metoclopramide = 10 mg, By Mouth, 3 times a day before meals and bedtime, 0 Refills, Maintenance, 08/20/18 13:55:26 EDT Start Date: 08/20/18 Status: Ordered multivitamin Multiple Vitamins oral tablet 1 tablet, By Mouth, Daily, B complex multivitamin, # 30 tablet, 11 Refills, Maintenance, 12/22/20 10:52:00 EDT, [facility], Partial fill upon patient request if the prescription is for a schedule II opioid drug., 1 tablet By Mouth Daily,Inst... Start Date: 12/22/20 Status: Ordered Narcan 4 mg/0.1 mL nasal spray = 4 mg, Nares, Both, Once, may repeat every 2 to 3 minutes until patient responds, # 2 each, 0 Refills, Soft Stop, 05/25/21 10:17:00 EST, [facility], 188, cm, 05/25/21 9:26:00 EST, Height, 125.2, kg, 06/20/20 14:28:00 EST, Dry Weight Start Date: 05/25/21 Status: Ordered nystatin-triamcinolone topical 465287 u/gm-0.1% ointment 1 applicator, Topically, 3 times a day, to foreskin area FOR 3 DAYS then switch to other antifungal, # 15 Gm, 1 Refills, Maintenance, 05/25/21 10:20:00 EST, [facility], 1 applicator Topically 3 times a [...] [place] Start Date: 08/20/18 Status: Ordered Pen [place], 31 G x 8 mm BD Ultra [...] each, 11 Refills, Maintenance, 09/15/21 14:29:00 EDT, [facility], Partial fill upon patient request if the prescription is for a schedule II opioid drug., 188, cm, 09/15/21 12:4... Start Date: 09/15/21 Status: Ordered Singulair 10 mg oral tablet 10 mg, 1, tablet, By Mouth, Daily, # 90 tablet, Refills 3, Tot. Refills 3, Maintenance, 03/30/20 21:31:00 EST, Route to Pharmacy Electronically, [facility], 185, cm, 02/25/20 10:29:00 EST, Height, [...] solution 0.75 mL, Intramuscular, Every 14 days, [facility], # 5 mL, 5 Refills, Maintenance, 07/27/21 9:48:00 EDT, [facility], 188, cm, 07/27/21 8:34:00 EDT, Height, 125.2, kg, 06/20/20 14:28:00 EST, Dry Weight Start Date: 07/27/21 Status: Ordered tiZANidine 4 mg oral tablet 4 mg, 1, tablet, By Mouth, 3 times a day, PRN, # 90 tablet, Refills 11, Tot. Refills 11, Maintenance, as needed for muscle spasm, 08/12/21 11:09:00 EDT, Route to Pharmacy Electronically, [facility], 188, cm, 07/27/21 8:34:00 EDT, Height, 125... Start Date: 08/12/21 Status: Ordered traZODone 100 mg oral tablet TAKE ONE TO TWO TABLETS BY MOUTH AT BEDTIME NEEDED S. McAnulty Start Date: 05/11/20 Status: Ordered Tylenol Extra Strength 500 mg oral tablet 2 tablet = 1,000 mg, By Mouth, 3 times a day, # 30 tablet, 11 Refills, Maintenance, 03/24/21 21:00:00 EST, [facility], 188, cm, 03/22/21 14:17:00 EST, Height, 125.2, kg, 06/20/20 14:28:00 EST, Dry Weight Start Date: 03/24/21 Status: Ordered Vitamin D3 1000 intl units oral tablet 1 tablet, By Mouth, Daily, # 30 tablet, 5 Refills, [facility], 188, cm, 03/22/21 14:17:00EST, Height, 125.2, [...] ? chr regional pain syndrome 4s/p Modified [place] procedure, repair of conjoined tendon of extensor [...]
--- OUTSIDE RECORDS SUMMARY | 2023-10-11 08:16 | XMS_ITS | Continuity of Care Document ---
Author Organization [facility] Address Unknown Care Team Providers Care Corporate Secretary Name Role Phone Vamshi Man MD Primary Care Physician [phone] Encounter [facility] Date(s): 08/01/21 - 08/31/21 [facility] Allergies, Adverse Reactions, Alerts [...] [11/27/2017] REceived at [facility] at [place], [place]; ordered by Dr Michael Oliveira 13Location [...] tablet, 5 Refills, Maintenance, 05/14/21 20:06:00 EST, [facility], 188, cm, 03/22/21 14:17:00 EST, Height, 125.2, kg, 06/20/20 14:28:00 EST, Dry Weight Start Date: 05/14/21 Status: Ordered atorvastatin 40 mg oral tablet 1 tablet, By Mouth, Daily, # 90 tablet, 1 Refills, [facility], 188, cm, 03/22/21 14:17:00EST, Height, 125.2, [...] 2 Refills, Maintenance, 01/07/20 14:49:00 EDT, Cream, [facility], 1 application Topically 2 times a day,Instr:apply to penile rash, 185, cm, 01/07/20 13:55:00 EDT, [facility]... Start Date: 01/07/20 Status: Ordered Cozaar 100 mg oral tablet 1 tablet = 100 mg, By Mouth, Daily in AM, # 30 tablet, 11 Refills, Maintenance, 09/22/20 9:41:00 EDT, Tablet, [facility], duplicate rx. original sent 09/16/19. remaining [...] 06/25/20 15:39:00 EST, Route to Pharmacy Electronically, [facility], Partial f... Start Date: 06/25/20 Status: Ordered diclofenac 1% topical gel = 2 Gm, Topically, 4 times a day, PRN for pain, (czech) not to exceed: 16 gm/day/joint lower limb8 gm/day/joint of upper limb 32 gm/day may interchange for cream, # 100 Gm, 5 Refills, Maintenance,07/08/20 15:35:00 EDT, [facility] Start Date: 07/08/20 Status: Ordered docusate [...] 08/22/21 16:07:00 EDT, Route to Pharmacy Electronically, [facility], Partial fill upon patient request i... [...] tablet, 11 Refills, Maintenance, 07/25/21 20:18:00 EDT, [facility], 188, cm, 06/28/21 16:20:00 EDT, Height, [...] mL, 11 Refills, Maintenance, 01/14/21 18:16:00 EDT, [facility], 188, cm, 12/22/20 9:45:00 EDT, Height, 125.2, kg, 06/20/20 14:28:00EST, Dry Weight Start Date: 01/14/21 Status: Ordered latanoprost 0.005% ophthalmic solution 0 Refills, Maintenance, 05/11/20 16:57:00 EST Start Date: 05/11/20 Status: Ordered lidocaine 5% topical ointment See Instructions, PRN Pain , Moderate, 1 APPLICATION TOPICALLY 3 TIMES A DAY, # 50 Gm, 5 Refills, Maintenance, 08/29/21 22:40:00 EDT, [facility], 1 APPLICATION TOPICALLY 3 TIMES A DAY,PRN:Pain , Moderate, 188, cm, 08/26/21 9:59:00 EDT, [facility]... Start Date: 08/29/21 Status: Ordered LORazepam 1 mg oral tablet See Instructions, PRN for anxiety, 2 tablets By Mouth 1 hours prior to MRI, # 2 tablet, 1 Refills, Maintenance, 05/25/21 10:06:00 EST, Tablet, [facility], 188, cm, 05/25/21 9:26:00 EST, Height, [...] 0 Refills, Maintenance, 08/22/21 16:07:00 EDT, Tablet, [facility], Partial fill upon patient request if the prescription is for a schedule II opioid drug., 188, cm, 05/0... Start Date: 08/22/21 Status: Ordered metFORMIN 500 mg oral tablet 1 tablet, By Mouth, 2 times a day, # 60 tablet, 5 Refills, [facility], 188, cm, 06/28/21 16:20:00 EDT, Height, 125.2, kg, 06/20/20 14:28:00 EST, Dry Weight Start Date: 07/08/21 Status: Ordered methadone 10 mg oral tablet See Instructions, By mouth. 2 tab in AM, 1.5 midday, 2 in evening;for pain. IDC10: G90.5 CRPS. [address] [facility]., # 154 tablet, 0 Refills, Maintenance, pain, 09/13/21 22:42:00 EDT,[facility], May partial fill., 09/13/21... Start Date: 09/13/21 Status: Ordered methadone 10 mg oral tablet See Instructions, By mouth. 2 tab in AM, 1.5 midday, 2 in evening;for pain. IDC10: G90.5 CRPS. [address] [facility]., # 154 tablet, 0 Refills, Maintenance, pain, 08/16/21 11:07:00 EDT,[facility], May partial fill., 08/16/21... Start Date: 08/16/21 Status: Ordered Metoclopramide = 10 mg, By Mouth, 3 times a day before meals and bedtime, 0 Refills, Maintenance, 08/20/18 13:55:26 EDT Start Date: 08/20/18 Status: Ordered multivitamin Multiple Vitamins oral tablet 1 tablet, By Mouth, Daily, B complex multivitamin, # 30 tablet, 11 Refills, Maintenance, 12/22/20 10:52:00 EDT, [facility], Partial fill upon patient request if the prescription is for a schedule II opioid drug., 1 tablet By Mouth Daily,Inst... Start Date: 12/22/20 Status: Ordered Narcan 4 mg/0.1 mL nasal spray = 4 mg, Nares, Both, Once, may repeat every 2 to 3 minutes until patient responds, # 2 each, 0 Refills, Soft Stop, 05/25/21 10:17:00 EST, [facility], 188, cm, 05/25/21 9:26:00 EST, Height, 125.2, kg, 06/20/20 14:28:00 EST, Dry Weight Start Date: 05/25/21 Status: Ordered nystatin-triamcinolone topical 570282 u/gm-0.1% ointment 1 applicator, Topically, 3 times a day, to foreskin area FOR 3 DAYS then switch to other antifungal, # 15 Gm, 1 Refills, Maintenance, 05/25/21 10:20:00 EST, [facility], 1 applicator Topically 3 times a [...] [place] Start Date: 08/20/18 Status: Ordered Pen [place], 31 G x 8 mm BD Ultra [...] mL, 11 Refills, Maintenance, 05/25/21 10:14:00 EST, [facility], Partial fill upon patient request if the prescription is for a schedule II op... Start Date: 05/25/21 Status: Ordered Singulair 10 mg oral tablet 10 mg, 1, tablet, By Mouth, Daily, # 90 tablet, Refills 3, Tot. Refills 3, Maintenance, 03/30/20 21:31:00 EST, Route to Pharmacy Electronically, [facility], 185, cm, 02/25/20 10:29:00 EST, Height, [...] solution 0.75 mL, Intramuscular, Every 14 days, [facility], # 5 mL, 5 Refills, Maintenance, 07/27/21 9:48:00 EDT, [facility], 188, cm, 07/27/21 8:34:00 EDT, Height, 125.2, kg, 06/20/20 14:28:00 EST, Dry Weight Start Date: 07/27/21 Status: Ordered tiZANidine 4 mg oral tablet 4 mg, 1, tablet, By Mouth, 3 times a day, PRN, # 90 tablet, Refills 11, Tot. Refills 11, Maintenance, as needed for muscle spasm, 08/12/21 11:09:00 EDT, Route to Pharmacy Electronically, [facility], 188, cm, 07/27/21 8:34:00 EDT, Height, 125... Start Date: 08/12/21 Status: Ordered traZODone 100 mg oral tablet TAKE ONE TO TWO TABLETS BY MOUTH AT BEDTIME NEEDED S. Carmen Start Date: 05/11/20 Status: Ordered Tylenol Extra Strength 500 mg oral tablet 2 tablet = 1,000 mg, By Mouth, 3 times a day, # 30 tablet, 11 Refills, Maintenance, 03/24/21 21:00:00 EST, [facility], 188, cm, 03/22/21 14:17:00 EST, Height, 125.2, kg, 06/20/20 14:28:00 EST, Dry Weight Start Date: 03/24/21 Status: Ordered Vitamin D3 1000 intl units oral tablet 1 tablet, By Mouth, Daily, # 30 tablet, 5 Refills, [facility], 188, cm, 03/22/21 14:17:00EST, Height, 125.2, [...]
--- OUTSIDE RECORDS SUMMARY | 2023-10-11 08:16 | XMS_ITS | Continuity of Care Document ---
Author Organization [facility] Address [address] [place] [address]- Care Team Providers Care Drawer In Stitch Bonding Machine Name Role Phone Donovan DE LOS SANTOS, Vamshi Oshea Primary Care Physician [phone] [facility]counter [facility] Date[facility]s): 02/28/23 - 03/30/23 [facility]/[place] [address]- [place] Allergies, Adverse Reactions, Alerts Substance Reaction Severity Status Latex RASH Active Other Food Allergy fresh peaches - itch y mouth, throat and lips swell Active penicillin 1 rash Resolved 1rash per mother as child. Did take a penicillin for treatment of H pylori per pt w/o problem. Immunizations Given and Recorded Vaccine Date Status Refusal Reason SARS-CoV-2(COVID-19)mRNA-LNP vac(dtv502) 01/30/23 Given influenza virus vaccine, inactivated 01/05/23 [...] influenza virus vaccine, inactivated 03/19/06 Give n [id number] 12y+ bivalent booster vax 11/3/22 Given pneumococcal 20-valent conjugate vaccine 02/16/22 Given Influenza Virus Vaccine (oldterm) 9 01/27/22 Recor ded Influenza Virus Vaccine (oldterm) 01/26/21 Recorde d SARS-CoV-2 mRNA (proliyf-fpoz-svoia) vax 11/11/21 Given SARS-CoV-2 (COVID-19) mRNA BNT-162b2 [...] Elissa Bertrand 13Result Comment: [11/27/2017] REceived at [facility] at [place], [place]; ordered by Dr Michael Bogdasarian 14Location [...] 11 Refills, Maintenance, 02/08/23 10:21:00 EDT, Powder, [facility], replaces Flovent due to insurance coverage, 188, cm, 01/30/23 13:26:00 EDT, Height, 126, kg, 01/30/23 13:26:00 EDT,... Start Date: 02/08/23 Status: Ordered Aspirin Low Dose 81 mg oral delayed release tablet 1 tablet, By Mouth, Daily, # 90 tablet, 4 Refills, Maintenance, 03/01/23 17:49:00 EST, [facility], 188, cm, 01/30/23 13:26:00 EDT, Height, 126, kg, 01/30/23 13:26:00 EDT, Dry Weight Start Date: 03/01/23 Status: Ordered atorvastatin 40 mg oral tablet See Instructions, TAKE 1 TABLET BY MOUTH EVERY DAY, # 90 tablet, 1 Refills, Maintenance, 11/02/22 16:19:00 EDT, [facility], 188, cm, 10/19/22 13:16:00 EDT, Height, [...] 0 Refills, Maintenance, 05/15/22 16:24:00 EST, Tablet, [facility], Partial fill upon patient request if [...] 2 Refills, Maintenance, 04/27/22 23:43:00 EST, Cream, [facility], 1 application Topically 2 times a day,Instr:apply to penile rash, 188, cm, 04/27/22 13:44:00 EST, Francheska... Start Date: 04/27/22 Status: Ordered diazepam 10 mg oral tablet See Instructions, PRN, 1 tablet By Mouth 1 hr before MRI, # 1 tablet, Refills 2, Tot. Refills 2, Maintenance, as needed for anxiety, 01/30/23 15:02:00 EDT, Instructions Replace Required Details, Route to Pharmacy Electronically, [facility],... Start Date: 01/30/23 Status: Ordered diclofenac 1% topical gel = 2 Gm, Topically, 4 times a day, PRN for pain, (danish) not to exceed: 16 gm/day/joint lower limb8 gm/day/joint of upper limb 32 gm/day may interchange for cream, # 100 Gm, 11 Refills, Maintenance, 04/15/22 13:02:00 EST, Gel, [facility]... Start Date: 04/15/22 Status: Ordered docusate [...] 0 Refills, Maintenance, 09/03/22 13:58:00 EDT, Tablet, [facility], 188, cm, 07/18/22 14:01:00 EDT, Height, 122.63, kg, 11/22/21... Start Date: 09/03/22 Status: Ordered fexofenadine 60 mg oral tablet 1 tablet = 60 mg, By Mouth, 2 times a day, PRN for allergy symptoms, # 20 tablet, 0 Refills, Maintenance, 09/03/22 13:58:00 EDT, Tablet, [facility], Partial fill upon patient request if theprescription is for a schedule II opioid drug., 188... Start Date: 09/03/22 Status: Ordered fluticasone 50 mcg/inh nasal spray 0 Refills, Maintenance, 05/11/20 16:57:00 EST Start Date: 05/11/20 Status: Ordered Freestyle Tatyana Shiro Freestyle Tatyana Shiro, See Instructions, # 1 each, Refills 0, [...] May cause drowsiness, do notdrive after taking Bhutanese, # 28 tablet, 0 Refills, Maintenance, 04/07/22 15:51:00 EST, [facility], 188, cm, 02/16/22 13:07:00 EDT, Heigh... [...] 11 Refills, Maintenance, 11/28/21 21:27:00 EDT, Solution, [facility], 188, cm, 11/22/21 16:37:00 EDT, Height, [...] Gm, 5 Refills, Maintenance, 12/22/21 7:28:00 EDT, [facility], same Rx was sent 11/11 w/ [...] 0 Refills, Maintenance, 01/12/22 7:27:00 EDT, Tablet, [facility], 188, cm, 12/26/21 14:06:00 EDT, Height, 122.63, kg, 11/22/21 16:37:00 EDT, Dry Weight Start Date: 01/12/22 Status: Ordered losartan 100 mg oral tablet See Instructions, TAKE 1 TABLET BY MOUTH DAILY IN AM, # 30 tablet, 5 Refills, Maintenance, 02/28/2314:13:00 EST, [facility], 188, cm, 01/30/23 13:26:00 EDT, Height, 126, kg, 01/30/23 13:26:00 EDT, Dry Weight Start Date: 02/28/23 Status: Ordered LUBRIC TEARS CALE 0.4-0.3% Milliliters INSTILL 1 DROP FOUR TIMES DAILY EACH EYE Start Date: 05/11/20 Status: Ordered magnesium oxide 400 mg oral tablet 1 tablet = 400 mg, By Mouth, Daily, # 30 tablet, 11 Refills, Maintenance, 04/27/22 15:29:00 EST, Tablet, [facility], Partial fill upon patient request if the prescription is for a schedule II opioid drug., 188, cm, 04/27/22 13:44:00 EST, Hei... Start Date: 04/27/22 Status: Ordered meloxicam 15 mg oral tablet 1 tablet = 15 mg, By Mouth, Daily, Take with food PRN back pain Bhutanese, # 14 tablet, 0 Refills, Maintenance, 11/25/21 13:26:00 EDT, [facility], Partial fill upon patient request if the prescription is for a schedule II opioid drug., 188,... Start Date: 11/25/21 Stop Date: 12/09/21 Status: Ordered metFORMIN 750 mg oral tablet, extended release 1 tablet = 750 mg, By Mouth, Daily, [replaces the metformin 500mg bid], # 30 tablet, 5 Refills, Maintenance, 11/01/22 8:40:00 EDT, ER Tablet, [facility], Partial fill upon patient request if the prescription is for a schedule II opioid drug.... Start Date: 11/01/22 Status: Ordered methadone 10 mg oral tablet See Instructions, By mouth. 2 tab in AM, 1.5 midday, 2 in evening;for pain. IDC10: G90.5 CRPS. [address] [facility]., # 154 tablet, 0 Refills, Maintenance, pain, 03/27/23 10:28:00 EST,[facility], May partial fill., 03/27/23... Start Date: 03/27/23 Status: Ordered methadone 10 mg oral tablet See Instructions, By mouth. 2 tab in AM, 1.5 midday, 2 in evening;for pain. IDC10: G90.5 CRPS. [address] [facility]., # 154 tablet, 0 Refills, Maintenance, pain, 02/27/23 10:28:00 EST,[facility], May partial fill., 02/27/23... Start Date: 02/27/23 Status: Ordered methadone 10 mg oral tablet See Instructions, By mouth. 2 tab in AM, 1.5 midday, 2 in evening;for pain. IDC10: G90.5 CRPS. [address] [facility]. Early fill before travel., # 154 tablet, 0 Refills, Maintenance, pain, 02/27/23 14:24:00 EST, [facility],... Start Date: 02/27/23 Status: Ordered methadone 10 mg oral tablet See Instructions, By mouth. 2 tab in AM, 1.5 midday, 2 in evening;for pain. IDC10: G90.5 CRPS. [address] [facility]., # 154 tablet, 0 Refills, Maintenance, pain, 01/30/23 14:06:00 EDT,[facility], August partial fill., 01/30/23... Start Date: [...] 1 Refills, Soft Stop, 02/16/22 23:38:00 EDT, [facility], 188, cm, 02/16/22 13:07:00 EDT, Height,122.63, [...] Date: 02/16/22 Status: Ordered PEN NEEDLES MIS [id number] PEN NEEDLES MIS [id number], See Instructions, # 100 each, 5 Refills, Maintenance, USE DAILY TYPE 2 DIABETES MELLITUS ON INSULIN WITH PEN, 08/25/22 16:39:00 EDT, 188, cm, 07/18/22 14:01:00 EDT, Height, 122.63, kg, 11/22/21 16:37:00 EDT, Dry Weight Start Date: 08/25/22 Status: Ordered Pen [place], 31 G x 8 mm BD Ultra [...] 02/18/23 19:20:00 EST, Route to Pharmacy Electronically, [facility], 188, cm, 01/30/23 13:26:00 EDT, Height, 126, kg, 01/30/23 13:26:00 EDT, Dry Weight Start Date: 02/18/23 Status: Ordered Tab-A-Kelsie oral tablet 1 tablet, By Mouth, Daily, # 30 tablet, 5 Refills, Maintenance, 12/19/22 20:41:00 EDT, [facility], 30, TAKE 1 TABLET BY MOUTH EVERY DAY, 188, cm, 10/19/22 13:16:00 EDT, Height, 122.63, kg, 11/22/21 16:37:00 EDT, Dry Weight Start Date: 12/19/22 Status: Ordered tamsulosin 0.4 mg oral capsule 0.8 mg, 2, capsule, By Mouth, Daily, dose increase, # 60 capsule, Refills 11, Tot. Refills 11, Maintenance, 07/27/22 11:57:00 EDT, Route to Pharmacy Electronically, [facility], 188, cm, 07/18/22 14:01:00 EDT, Height, 122.63, kg, 11/22/21 16:... Start Date: 07/27/22 Status: Ordered Test Strips See Instructions, # 100 each, Refills 5, Tot. Refills 5, Maintenance, Precision Ganga strips (for Freestyle Tatyana glucometer). Type 2 diabetes mellitus on insulin (E11, Z79.4). Test 2-4x/day if symptoms, or sensor concerns., 02/08/23 10:36:00 EDT, [facility]... Start Date: 02/08/23 Status: Ordered Test Strips [...] Intramuscular, Every 14 days, IM or subcutaneous. [facility]., # 2 mL, 5 Refills, Maintenance, 10/27/22 17:23:00 EDT, [facility], 188, cm, 10/19/22 13:16:00 EDT, Height, 122.63, kg, 11/22/21 16:37:00 EDT, Dry Weight Start Date: 10/27/22 Status: Ordered tiZANidine 4 mg oral tablet 4 mg, 1, tablet, By Mouth, 3 times a day, PRN, # 90 tablet, Refills 11, Tot. Refills 11, Maintenance, as needed for muscle spasm, 08/18/22 8:03:00 EDT, Route to Pharmacy Electronically, [facility], 188, cm, 07/18/22 14:01:00 EDT, Height, 122... Start Date: 08/18/22 Status: Ordered Toujeo Max SoloStar 300 units/mL subcutaneous solution = 60 units, Subcutaneous Injection, Daily, # 12 mL, 11 Refills, Maintenance, 02/08/23 10:15:00 EDT,Solution, [facility], replaces Lantus due to insurance coverage, [...] tablet, 11 Refills, Maintenance, 03/24/21 21:00:00 EST, [facility], 188, cm, 03/22/21 14:17:00 EST, Height, 125.2, kg, 06/20/20 14:28:00 EST, Dry Weight Start Date: 03/24/21 Status: Ordered Victoza 18 mg/3 mL subcutaneous solution = 1.8 mg, Subcutaneous Injection, Daily, # 9 mL, 11 Refills, Maintenance, 02/08/23 10:25:00 EDT, Solution, [facility], replaces semaglutide, 188, cm, 01/30/23 13:26:00 [...] Team Personnel Name: Shoaib An RN Position: [facility] RN Supv Member Role: Primary Care Nurse Name: Donovan DE LOS SANTOS, Vamshi Oshea Position: [facility] Physician - Primary Care Member Role: PCP Address: Address: [address] [place] [address]- Name: Luz Potter Position: [facility] Outreach Member Role: Lifetime Consulting Physician Name: Miki Rodriguez MD Position: [facility] Renal MD Member Role: Lifetime Consulting Physician Address: Address: [address] [facility] [place] [address]- Care Team Related Persons Name: BRANDON MTZ Address: home [address] [place] [address] Name: BRANDON BARKER Address: home [address] [place] [address] Name: ROSALINDA BERTRAND Address: home [address] [place] [address]
--- OUTSIDE RECORDS SUMMARY | 2023-10-11 08:16 | XMS_ITS | Continuity of Care Document ---
Author Organization [facility] Address Unknown Care Team Providers Care Virtual Recruiter Name Role Phone Vamshi Man MD Primary Care Physician [facility] Date[facility]s): 11/18/20 - 12/18/20 [facility] Allergies, Adverse Reactions, Alerts Substance Reaction Severity [...] Elissa Bertrand 12Result Comment: [11/27/2017] REceived at [facility] at [place], [place]; ordered by Dr Michael Oliveira 13Location [...] tablet, 5 Refills, Maintenance, 11/18/20 15:30:00 EDT, [facility], 188, cm, 09/22/20 8:33:00 EDT, Height, 125.2, kg, 06/20/20 14:28:00 EST, Dry Weight Start Date: 11/18/20 Status: Ordered AutoCPAP 9-18 with heated humidification AutoCPAP 9-18 with heated humidification, See Instructions, # 1 each, Refills 0, Tot. Refills 0, Maintenance, use overnight and naps from [facility], 11/04/18 12:28:22 EDT, Compound Start [...] capsule, 3 Refills, Maintenance, 03/30/20 21:36:00 EST, [facility], 185, cm, 02/25/20 10:29:00 EST, Height, 126.81, kg, 02/25/20 10:29:00 EST, Dry Weight Start Date: 03/30/20 Status: Ordered clotrimazole 1% topical cream 1 application, Topically, 2 times a day, apply to penile rash, # 30 Gm, 2 Refills, Maintenance, 01/07/20 14:49:00 EDT, Cream, [facility], 1 application Topically 2 times a day,Instr:apply to penile rash, 185, cm, 01/07/20 13:55:00 EDT, [facility]... Start Date: 01/07/20 Status: Ordered Cozaar 100 mg oral tablet 1 tablet = 100 mg, By Mouth, Daily in AM, # 30 tablet, 11 Refills, Maintenance, 09/22/20 9:41:00 EDT, Tablet, [facility], duplicate rx. original sent 09/16/19. remaining [...] 06/25/20 15:39:00 EST, Route to Pharmacy Electronically, [facility], Partial f... Start Date: 06/25/20 Status: Ordered diclofenac 1% topical gel = 2 Gm, Topically, 4 times a day, PRN for pain, (swedish) not to exceed: 16 gm/day/joint lower limb8 gm/day/joint of upper limb 32 gm/day may interchange for cream, # 100 Gm, 5 Refills, Maintenance,07/08/20 15:35:00 EDT, Gel, [facility] Start Date: 07/08/20 Status: Ordered docusate [...] 11 Refills, Maintenance, 02/15/20 21:05:00 EST, Solution, [facility], 185, cm, 01/07/20 13:55:00 EDT, Height, [...] mL, 3 Refills, Maintenance, 07/08/20 15:42:00 EDT, [facility], Duplicate rx-Original rx sent 06/22/20. Resent., 188, cm, 07/08/20 13:42:00 EDT, Height, 125.2, kg, 06/20/20 14:28:00 EST,... Start Date: 07/08/20 Status: Ordered latanoprost 0.005% ophthalmic solution 0 Refills, Maintenance, 05/11/20 16:57:00 EST Start Date: 05/11/20 Status: Ordered lidocaine 5% topical ointment See Instructions, 1 APPLICATION TOPICALLY 3 TIMES A DAY, # 70.88 Gm, 4 Refills, Acute, [facility], 14, 1 APPLICATION TOPICALLY 3 TIMES A DAY, 188, cm, 09/22/20 8:33:00 EDT, Height, 125.2, kg, 06/20/20 14:28:00 EST, Dry Weight Start Date: 11/08/20 Status: Ordered Lipitor 40 mg oral tablet 1 tablet = 40 mg, By Mouth, Daily, # 90 tablet, 3 Refills, Maintenance, 03/30/20 21:30:00 EST, [facility], duplicate rx. original sent 11/04/19. remaining refill sent., 185, cm, 02/25/20 10:29:00 EST, Height, 126.81, kg, 02/25/20 10:29:00 EST... Start Date: 03/30/20 Status: Ordered LORazepam 1 mg oral tablet See Instructions, PRN for anxiety, 2 tablets By Mouth 1 hours prior to MRI, # 2 tablet, 0 Refills, Acute 09/22/21 9:45:00 EDT, 09/22/20 9:43:00 EDT, Tablet, [facility], Partial fill upon patient request if [...] 3 Refills, Maintenance, 07/08/20 15:40:00 EDT, Tablet, [facility], Duplicate rx-Original rx sent06/22/20. Resent., 188, cm, 07/08/20 13:42:00 EDT, He... Start Date: 07/08/20 Status: Ordered methadone 10 mg oral tablet See Instructions, By mouth. 2 tab in AM, 1.5 midday, 2 in evening;for pain. IDC10: G90.5 CRPS. 28 day supply. [facility]., # 154 tablet, 0 Refills, Maintenance, pain, 11/09/20 9:00:00 EDT, [facility], May partial fill., 11/09/20,... Start Date: 11/09/20 Status: Ordered methadone 10 mg oral tablet See Instructions, By mouth. 2 tab in AM, 1.5 midday, 2 in evening;for pain. IDC10: G90.5 CRPS. 28 day supply. [facility]., # 154 tablet, 0 Refills, Maintenance, pain, 12/07/20 9:00:00 EDT, [facility], May partial fill., 12/07/20,... Start Date: [...] Start Date: 05/15/18 Status: Ordered nystatin-triamcinolone topical 125690 u/gm-0.1% ointment 1 applicator, Topically, 3 times a day, to foreskin area FOR 3 DAYS then switch to other antifungal, # 15 Gm, 1 Refills, Maintenance, 07/08/20 15:34:00 EDT, [facility], 1 applicator Topically 3 times a [...] EDT Start Date: 08/20/18 Status: Ordered Pen [place], 31 G x 8 mm BD Ultra [...] 03/30/20 21:31:00 EST, Route to Pharmacy Electronically, [facility], 185, cm, 02/25/20 10:29:00 EST, Height, [...] solution 0.75 mL, Intramuscular, Every 14 days, [facility], # 5 mL, 5 Refills, Maintenance, 08/29/20 21:33:00 EDT, [facility], 188, cm, 07/08/20 13:42:00 EDT, Height, 125.2, kg, 06/20/20 14:28:00 EST, Dry Weight Start Date: 08/29/20 Status: Ordered tiZANidine 4 mg oral tablet 4 mg, 1, tablet, By Mouth, 3 times a day, PRN, # 90 tablet, Refills 11, Tot. Refills 11, Maintenance, as needed for muscle spasm, 07/08/20 15:40:00 EDT, Route to Pharmacy Electronically, [facility], 188, cm, 07/08/20 13:42:00 EDT, Height, [...]
--- OUTSIDE RECORDS SUMMARY | 2023-10-11 08:16 | XMS_ITS | Continuity of Care Document ---
Author Organization [facility] Address [address] [place] [address]- Care Team Providers Care Certified Orthotist Name Role Phone Vamshi Man MD Primary Care Physician [facility]): 01[facility]20 - 02/01/20 [facility] [address] [address]- [facility] Allergies, Adverse Reactions, Alerts Substance [...] Elissa Bertrand 11Result Comment: [11/27/2017] REceived at [facility] at [place], [place]; ordered by Dr Michael Oliveira 12Location [...] 11/04/19 15:57:00 EDT, Route to Pharmacy Electronically, [facility], 185, cm, 06/24/19 13:00:00 EDT, Height, 127.72, kg, 05/06/19 13:41:00 EST, Dry Weight Start Date: 11/04/19 Status: Ordered AutoCPAP 9-18 with heated humidification AutoCPAP 9-18 with heated humidification, See Instructions, # 1 each, Refills 0, Tot. Refills 0, Maintenance, use overnight and naps from [facility], 11/04/18 12:28:22 EDT, Compound Start [...] 2 Refills, Maintenance, 01/07/20 14:49:00 EDT, Cream, [facility], 1 application Topically 2 times a day,Instr:apply to penile rash, 185, cm, 01/07/20 13:55:00 EDT, [facility]... Start Date: 01/07/20 Status: Ordered Cozaar 100 mg oral tablet 1 tablet = 100 mg, By Mouth, Daily in AM, # 30 tablet, 11 Refills, Maintenance, 09/16/19 15:00:00 EDT, Tablet, [facility], 185, cm, 06/24/19 13:00:00 EDT, Height, 127.72, kg, 05/06/19 13:41:00 EST, Dry Weight Start Date: 09/16/19 Status: Ordered diclofenac 1% topical gel = 2 Gm, Topically, 4 times a day, PRN for pain, (north korean) not to exceed: 16 gm/day/joint lower limb8 gm/day/joint of upper limb 32 gm/day, # 100 Gm, 1 Refills, Maintenance, 10/27/19 10:15:00 EDT, Gel, [facility], 185, cm, 06/24/19 13:00:... Start Date: [...] 1 Refills, Maintenance, 12/02/19 10:07:00 EDT, Solution, [facility], duplicate rx. remaining refills sent. original [...] tablet, 11 Refills, Maintenance, 01/07/20 14:40:00 EDT, [facility], 185, cm, 01/07/20 13:55:00 EDT, Height, 127.72, kg, 05/06/19 13:41:00 EST, Dry Weight Start Date: 01/07/20 Status: Ordered Lantus Solostar Pen 100 units/mL subcutaneous solution = 90 units, Subcutaneous Infusion, Daily at bedtime, # 15 mL, 5 Refills, Maintenance, 10/09/19 15:22:00 EDT, [facility], duplicate rx. original rx sent 03/18/19. remaining refills sent, 185,cm, 06/24/19 13:00:00 EDT, Height, 127.72, kg, 04/17... Start Date: 10/09/19 Status: Ordered latanoprost 0.005% ophthalmic solution 1 drops, Eyes, Both, Daily at bedtime, cover gap- Flat Bed Knitter Dr Broussard, # 2.5 mL, 1 Refills, Maintenance, 02/25/14 10:47:09, Ophth Solution, 1 drops Eyes, Both Daily at bedtime,Instr:cover gap-Flat Bed Knitter Dr Broussard Start Date: 02/25/14 Status: Ordered lidocaine 4% topical cream 1 application, Topically, 3 times a day, may interchange 3-5% cream or ointment or 2% gel per insurance coverage., # 60 Gm, 5 Refills, Maintenance, 10/28/19 20:11:00 EDT, [facility], 1 application Topically 3 times a day,Instr:may interchang... Start Date: 10/28/19 Status: Ordered Lipitor 40 mg oral tablet 1 tablet = 40 mg, By Mouth, Daily, # 30 tablet, 5 Refills, Maintenance, 11/04/19 15:57:00 EDT, [facility], 185, cm, 06/24/19 13:00:00 EDT, Height, 127.72, kg, 05/06/19 13:41:00 EST, Dry Weight Start Date: 11/04/19 Status: Ordered metFORMIN 500 mg oral tablet 1 tablet = 500 mg, By Mouth, 2 times a day, with meals. Replaces metformin ER, # 60 tablet, 11 Refills, Maintenance, 06/24/19 15:02:00 EDT, Tablet, [facility], 185, cm, 06/24/19 13:00:00 EDT, Height, [...] tablet, 0 Refills, Maintenance, pain, 02/03/20 21:32:00 EDT,[facility], May partial fill., 02/03/20... Start Date: 02/03/20 Status: Ordered methadone 10 mg oral tablet See Instructions, By mouth. 2 tab in AM, 1.5 midday, 2 in evening;for pain. IDC10: G90.5 CRPS. [address] [facility]., # 154 tablet, 0 Refills, Maintenance, pain, 03/02/20 21:37:00 EST,[facility], May partial fill., 03/02/20... Start Date: [...] Start Date: 05/15/18 Status: Ordered nystatin-triamcinolone topical 769076 u/gm-0.1% ointment 1 applicator, Topically, 3 times a day, to foreskin area FOR 3 DAYS then switch to other antifungal, # 15 Gm, 1 Refills, Maintenance, 01/07/20 14:48:00 EDT, [facility], 1 applicator Topically 3 times a [...] EDT Start Date: 08/20/18 Status: Ordered Pen [place], 31 G x 8 mm BD Ultra [...] 11/29/18 11:27:43 EDT, Route to Pharmacy Electronically, [id number], [facility] Start Date: 11/29/18 Status: Ordered Testosterone Cypionate = 0.75 mg, Intramuscular, Every 14 days, Adm. today to Lot [id number] exp: 02/2020, 0 Refills, Maintenance, 11/14/18 14:06:08 EDT Start Date: 11/14/18 Status: Ordered testosterone enanthate 200 mg/mL intramuscular solution 0.75 mL, Intramuscular, Every 14 days, [facility], # 5 mL, 5 Refills, Maintenance, 01/06/20 11:17:00 EDT, [facility], 185, cm, 06/24/19 13:00:00 EDT, Height, 127.72, kg, 05/06/19 13:41:00 EST, Dry Weight Start Date: 01/06/20 Status: Ordered testosterone enanthate 200 mg/mL intramuscular solution 0.75 mL, Intramuscular, Every 14 days, [facility], # 5 mL, 5 Refills, Maintenance, 01/11/20 21:30:00 EDT, [facility], 185, cm, 01/07/20 13:55:00 EDT, Height, 127.72, kg, 05/06/19 13:41:00 EST, Dry Weight Start Date: 01/11/20 Status: Ordered tiZANidine 4 mg oral tablet 4 mg, 1, tablet, By Mouth, 3 times a day, PRN, # 90 tablet, Refills 11, Tot. Refills 11, Maintenance, as needed for muscle spasm, 02/04/19 21:34:51 EDT, Route to Pharmacy Electronically, NCPDP_[id number], [facility] Start Date: 02/04/19 Status: Ordered Problem [...] ? chr regional pain syndrome 4s/p Modified [place] procedure, repair of conjoined tendon of extensor [...]
--- OUTSIDE RECORDS SUMMARY | 2023-10-11 08:16 | XMS_ITS | Continuity of Care Document ---
Author Organization [facility] Address [address] [place] [address]- Care Team Providers Care Rolfer Name Role Phone Vamshi Man MD Primary Care Physician Encounter [facility] Date(s): 02/26/20 - 06/25/20 [facility]/[address] [address]- Attending Physician: Vamshi Man MD Admitting Physician: [...] Bertrand 12Result Comment: [11/27/2017] REceived at [facility] at [place], [place]; ordered by Dr Michael Oliveira 13Location [...] 03/30/20 21:31:00 EST, Route to Pharmacy Electronically, [facility], [facility]king[facility] rx. original sent 11/04/19. remaining refills sent., [...] capsule, 3 Refills, Maintenance, 03/30/20 21:36:00 EST, [facility], 185, cm, 02/25/20 10:29:00 EST, Height, 126.81, kg, 02/25/20 10:29:00 EST, Dry Weight Start Date: 03/30/20 Status: Ordered clotrimazole 1% topical cream 1 application, Topically, 2 times a day, apply to penile rash, # 30 Gm, 2 Refills, Maintenance, 01/07/20 14:49:00 EDT, Cream, [facility], 1 application Topically 2 times a day,Instr:apply to penile rash, 185, cm, 01/07/20 13:55:00 EDT, Heigh... Start Date: 01/07/20 Status: Ordered Cozaar 100 mg oral tablet 1 tablet = 100 mg, By Mouth, Daily in AM, # 30 tablet, 5 Refills, Maintenance, 03/15/20 17:08:00 EST, Tablet, [facility], duplicate rx. original sent 09/16/19. [...] 06/25/20 15:39:00 EST, Route to Pharmacy Electronically, [facility], Partial f... Start Date: 06/25/20 Status: Ordered diclofenac 1% topical gel = 2 Gm, Topically, 4 times a day, PRN for pain, (kazakh) not to exceed: 16 gm/day/joint lower limb8 gm/day/joint of upper limb 32 gm/day, # 100 Gm, 1 Refills, Maintenance, 10/27/19 10:15:00 EDT, Gel, [facility], 185, cm, 06/24/19 13:00:... Start [...] 11 Refills, Maintenance, 02/15/20 21:05:00 EST, Solution, [facility], 185, cm, 01/07/20 13:55:00 EDT, [...] 06/20/20 14:15:00 EST, Route to Pharmacy Electronically, [facility]/pharmacy #[id number], Partial fill upon patient request... Start Date: 06/20/20 Stop Date: 06/27/20 Status: Ordered ketotifen 0.025% ophthalmic solution INSTILL 1 DROP INTO AFFECTED EYE TWICE A DAY Dr Poe Start Date: 05/11/20 Status: Ordered Lantus Solostar Pen 100 units/mL subcutaneous solution = 90 units, Subcutaneous Infusion, Daily at bedtime, # 30 mL, 3 Refills, Maintenance, 06/23/20 23:04:00 EST, [facility], Duplicate rx-Original rx sent 06/22/20. [...] Gm, 5 Refills, Maintenance, 10/28/19 20:11:00 EDT, [facility], 1 application Topically 3 times a day,Instr:august interchang... Start Date: 10/28/19 Status: Ordered Lipitor 40 mg oral tablet 1 tablet = 40 mg, By Mouth, Daily, # 90 tablet, 3 Refills, Maintenance, 03/30/20 21:30:00 EST, [facility], duplicate rx. original sent 11/04/19. [...] 3 Refills, Maintenance, 06/23/20 23:04:00 EST, Tablet, [facility], Duplicate rx-Original rx sent06/22/20. Resent., 188, cm, 06/20/20 14:28:00 EST, He... Start Date: 06/23/20 Status: Ordered methadone 10 mg oral tablet See Instructions, By mouth. 2 tab in AM, 1.5 midday, 2 in evening;for pain. IDC10: G90.5 CRPS. 28 day supply. [facility]., # 154 tablet, 0 Refills, Maintenance, pain, 06/21/20 17:50:00 EST,[facility], August partial fill., 185, cm,... Start Date: 06/21/20 Status: Ordered methadone 10 mg oral tablet See Instructions, By mouth. 2 tab in AM, 1.5 midday, 2 in evening;for pain. IDC10: G90.5 CRPS. 28 day supply. [facility]., # 154 tablet, 0 Refills, Maintenance, pain, 05/24/20 16:29:00 EST,[facility], May partial fill., 05/24/20... Start Date: 05/24/20 [...] Start Date: 05/15/18 Status: Ordered nystatin-triamcinolone topical 083997 u/gm-0.1% ointment 1 applicator, Topically, 3 times a day, to foreskin area FOR 3 DAYS then switch to other antifungal, # 15 Gm, 1 Refills, Maintenance, 01/07/20 14:48:00 EDT, [facility], 1 applicator Topically 3 times [...] EDT Start Date: 08/20/18 Status: Ordered Pen [place], 31 G x 8 mm BD Ultra [...] 03/30/20 21:31:00 EST, Route to Pharmacy Electronically, [facility], 185, cm, 02/25/20 10:29:00 EST, [...] solution 0.75 mL, Intramuscular, Every 14 days, [facility], # 5 mL, 5 Refills, Maintenance, 01/11/20 21:30:00 EDT, [facility], 185, cm, 01/07/20 13:55:00 EDT, Height, 127.72, kg, 05/06/19 13:41:00 EST, Dry Weight Start Date: 01/11/20 Status: Ordered tiZANidine 4 mg oral tablet 4 mg, 1, tablet, By Mouth, 3 times a day, PRN, # 90 tablet, Refills 11, Tot. Refills 11, Maintenance, as needed for muscle spasm, 05/11/20 18:47:00 EST, Route to Pharmacy Electronically, [facility], 185, cm, 02/25/20 10:29:00 EST, [...] 06/27/20 14:15:00 EDT, 06/20/20 14:15:00 EST, Tablet, [id number], Partial fill upon patient request if the [...]
--- OUTSIDE RECORDS SUMMARY | 2023-10-11 08:16 | XMS_ITS | Continuity of Care Document ---
Author Organization [facility] Address [address] [place] [address]- Care Team Providers Care Rfid Specialist Name Role Phone Vamshi Man MD Primary Care Physician Encounter [facility] Date(s): 11/04/19 - 12/04/19 [facility]/[address] [address]- [place] States Allergies, Adverse Reactions, Alerts Substance Reaction [...] Bertrand 11Result Comment: [11/27/2017] REceived at [facility] at [place], [place]; ordered by Dr Michael Oliveira 12Location [...] 11/04/19 15:57:00 EDT, Route to Pharmacy Electronically, [facility], 185, cm, 06/24/19 13:00:00 EDT, Height, [...] 1 Refills, Maintenance, 06/24/19 15:23:00 EDT, Cream, [facility], 1 application Topically 2 times a day,Instr:apply to penile rash, 185, cm, 06/24/19 13:00:00 EDT, Francheska..Zayra Start Date: 06/24/19 Status: Ordered Cozaar 100 mg oral tablet 1 tablet = 100 mg, By Mouth, Daily in AM, # 30 tablet, 11 Refills, Maintenance, 09/16/19 15:00:00 EDT, Tablet, [facility], 185, cm, 06/24/19 13:00:00 EDT, Height, 127.72, kg, 05/06/19 13:41:00 EST, Dry Weight Start Date: 09/16/19 Status: Ordered diclofenac 1% topical gel = 2 Gm, Topically, 4 times a day, PRN for pain, (greenlandic) not to exceed: 16 gm/day/joint lower limb8 gm/day/joint of upper limb 32 gm/day, # 100 Gm, 1 Refills, Maintenance, 10/27/19 10:15:00 EDT, Gel, [facility], 185, cm, 06/24/19 13:00:... Start Date: [...] 1 Refills, Maintenance, 12/02/19 10:07:00 EDT, Solution, [facility], duplicate rx. remaining refills sent. original [...] tablet, 1 Refills, Maintenance, 04/15/19 5:02:00 EST, [facility], 185, cm, 02/12/19 9:28:00 EDT, Height, 123.7, kg, 08/22/18 12:59:00 EDT, Dry Weight Start Date: 04/15/19 Status: Ordered Lantus Solostar Pen 100 units/mL subcutaneous solution = 90 units, Subcutaneous Infusion, Daily at bedtime, # 15 mL, 5 Refills, Maintenance, 10/09/19 15:22:00 EDT, [facility], duplicate rx. original rx sent 03/18/19. remaining refills sent, 185,cm, 06/24/19 13:00:00 EDT, Height, 127.72, kg, 04/17... Start Date: 10/09/19 Status: Ordered latanoprost 0.005% ophthalmic solution 1 drops, Eyes, Both, Daily at bedtime, cover gap- Rn Building Dr Broussard, # 2.5 mL, 1 Refills, Maintenance, 02/25/14 10:47:09, Ophth Solution, 1 drops Eyes, Both Daily at bedtime,Instr:cover gap-Rn Building Dr Broussard Start Date: 02/25/14 Status: Ordered lidocaine 4% topical cream 1 application, Topically, 3 times a day, may interchange 3-5% cream or ointment or 2% gel per insurance coverage., # 60 Gm, 5 Refills, Maintenance, 10/28/19 20:11:00 EDT, [facility], 1 application Topically 3 times a day,Instr:august interchang... Start Date: 10/28/19 Status: Ordered Linzess 145 mcg oral capsule TAKE 1 CAPSULE BY MOUTH 30 MINUTES BEFORE MEAL (constipation) Start Date: 03/31/17 Status: Ordered Lipitor 40 mg oral tablet 1 tablet = 40 mg, By Mouth, Daily, # 30 tablet, 5 Refills, Maintenance, 11/04/19 15:57:00 EDT, [facility], 185, cm, 06/24/19 13:00:00 EDT, Height, 127.72, kg, 05/06/19 13:41:00 EST, Dry Weight Start Date: 11/04/19 Status: Ordered metFORMIN 500 mg oral tablet 1 tablet = 500 mg, By Mouth, 2 times a day, with meals. Replaces metformin ER, # 60 tablet, 11 Refills, Maintenance, 06/24/19 15:02:00 EDT, Tablet, [facility], 185, cm, 06/24/19 13:00:00 EDT, Height, [...] IDC10: G90.5 CRPS. 28 day supply. [facility]., # 154 tablet, 0 Refills, Maintenance, pain, 11/10/19 12:54:00 EDT,[facility], August partial fill., 11/10/19... Start Date: 11/10/19 Status: Ordered methadone 10 mg oral tablet See Instructions, By mouth. 2 tab in AM, 1.5 midday, 2 in evening;for pain. IDC10: G90.5 CRPS. 28 day supply. [facility]., # 154 tablet, 0 Refills, Maintenance, pain, 12/08/19 12:56:00 EDT,[facility], August partial fill., 12/08/19... Start Date: [...] Start Date: 05/15/18 Status: Ordered nystatin topical 555401 u/gm cream 1 application, Topically, 2 times a day, for fungal rash, # 30 Gm, 0 Refills, Maintenance, 09/15/2014:01:00 EDT, Cream, [facility], 1 application Topically 2 times a day,x14 days,Instr:forfungal rash, 185, cm, 06/24/19 13:00:00 EDT, Height... Start Date: 09/16/19 Stop Date: 09/30/19 Status: Ordered nystatin-triamcinolone topical 982957 u/gm-0.1% ointment 1 applicator, Topically, 3 times [...] EVERY 8 HOURS NEEDED FOR NAUSEA Idalia Olri Start Date: 08/20/18 Status: Ordered PARoxetine 40 mg oral tablet 40 mg, 1, tablet, By Mouth, Daily, # 30 tablet, Maintenance, 08/20/18 21:41:59 EDT Start Date: 08/20/18 Status: Ordered Pen [place], 31 G x 8 mm BD Ultra [...] 11/29/18 11:27:43 EDT, Route to Pharmacy Electronically, [id number], [facility] Start Date: 11/29/18 Status: Ordered Testosterone Cypionate = 0.75 mg, Intramuscular, Every 14 days, Adm. today to Lot [id number] exp: 02/2020, 0 Refills, Maintenance, 11/14/18 14:06:08 EDT Start Date: 11/14/18 Status: Ordered testosterone enanthate 200 mg/mL intramuscular solution 0.75 mL, Intramuscular, Every 14 days, [facility], # 5 mL, 5 Refills, Maintenance, 05/06/19 15:06:00 EST, [facility], 185, cm, 05/06/19 13:41:00 EST, Height, 127.72, kg, 05/06/19 13:41:00 EST, Dry Weight Start Date: 05/06/19 Status: Ordered tiZANidine 4 mg oral tablet 4 mg, 1, tablet, By Mouth, 3 times a day, PRN, # 90 tablet, Refills 11, Tot. Refills 11, Maintenance, as needed for muscle spasm, 02/04/19 21:34:51 EDT, Route to Pharmacy Electronically, [id number], [facility] Start Date: 02/04/19 Status: Ordered Problem [...] ? chr regional pain syndrome 4s/p Modified [place] procedure, repair of conjoined tendon of extensor [...]
--- OUTSIDE RECORDS SUMMARY | 2023-10-11 08:16 | XMS_ITS | Continuity of Care Document ---
Author Organization [facility] Address [address] [address]- Care Team Providers Care Dip Filler Name Role Phone Vamshi Man MD Primary Care Physician [phone] Encounter [facility] Date(s): 08/06/23 - 09/05/[address] [address]- Allergies, Adverse Reactions, Alerts Substance Reaction Severity Status penicillin 1 rash Resolved penicillins Active Latex RASH Active Other Food Allergy fresh peaches - itch y mouth, throat and lips swell Active 1rash per mother as child. Did take a penicillin for treatment of H pylori per pt w/o problem. Immunizations Given and Recorded Vaccine Date Status Refusal Reason SARS-CoV-2(COVID-19)mRNA-LNP vac(bia706) 01/30/23 Given influenza virus vaccine, inactivated 01/05/23 [...] influenza virus vaccine, inactivated 03/19/06 Give n [id number] 12y+ bivalent booster vax 02/16/22 Given pneumococcal 20-valent conjugate vaccine 02/16/22 Given Influenza Virus Vaccine (oldterm) 9 01/27/22 Recor ded Influenza Virus Vaccine (oldterm) 01/26/21 Recorde d SARS-CoV-2 mRNA (finagil-jgpm-bhmna) vax 11/11/21 Given SARS-CoV-2 (COVID-19) mRNA BNT-162b2 [...] 13Result Comment: [11/27/2017] REceived at [facility] at [place], [place]; ordered by Dr Michael Oliveira 14Location [...] 11 Refills, Maintenance, 02/08/23 10:21:00 EDT, Powder, [facility], replaces Flovent due to insurance coverage, 188, cm, 01/30/23 13:26:00 EDT, Height, 126, kg, 01/30/23 13:26:00 EDT,... Start Date: 02/08/23 Status: Ordered Aspirin Low Dose 81 mg oral delayed release tablet 1 tablet, By Mouth, Daily, # 90 tablet, 4 Refills, Maintenance, 03/01/23 17:49:00 EST, [facility], 188, cm, 01/30/23 13:26:00 EDT, Height, 126, kg, 01/30/23 13:26:00 EDT, Dry Weight Start Date: 03/01/23 Status: Ordered atorvastatin 40 mg oral tablet 1 tablet, By Mouth, Daily, # 90 tablet, 1 Refills, Maintenance, 07/25/23 20:12:00 EDT, [facility], 188, cm, 07/05/23 11:09:00 EDT, Height, [...] 2 Refills, Maintenance, 04/27/22 23:43:00 EST, Cream, [facility], 1 application Topically 2 times a day,Instr:apply to penile rash, 188, cm, 04/27/22 13:44:00 EST, Heigh... Start Date: 04/27/22 Status: Ordered diazepam 10 mg oral tablet See Instructions, PRN, 1 tablet By Mouth 1 hr before MRI, # 1 tablet, Refills 2, Tot. Refills 2, Maintenance, as needed for anxiety, 01/30/23 15:02:00 EDT, Instructions Replace Required Details, Route to Pharmacy Electronically, [facility],... Start Date: 01/30/23 Status: Ordered diclofenac 1% topical gel = 2 Gm, Topically, 4 times a day, PRN for pain, (nepalese) not to exceed: 16 gm/day/joint lower limb8 gm/day/joint of upper limb 32 gm/day may interchange for cream, # 100 Gm, 11 Refills, Maintenance, 04/15/22 13:02:00 EST, Gel, [facility]... Start Date: 04/15/22 Status: Ordered docusate [...] drug. Start Date: 04/26/23 Status: Ordered EpiPen 2-Deeajy 0.3 mg injectable kit Maria G Collado/Melissa, 0 Refills, Maintenance, 01/01/16 18:30:41 Start Date: 01/01/16 Status: Ordered fluticasone 50 mcg/inh nasal spray 0 Refills, Maintenance, 05/11/20 16:57:00 EST Start Date: 05/11/20 Status: Ordered fluticasone 50 mcg/inh nasal spray 2 sprays = 100 mcg, Nares, Both, 2 times a day, # 16 Gm, 11 Refills, Maintenance, 07/09/23 11:37:00EDT, [place], [facility], Partial fill upon patient request if the prescription is for a schedule II opioid drug., 2 sprays Nares, Both 2 times... Start Date: 07/09/23 Status: Ordered Freestyle Tatyana Slayden Freestyle Tatyana Slayden, See Instructions, # 1 each, Refills 0, [...] days., 08/11/23 11:15:00 EDT, Recently sent to [facility]... Start Date: 08/11/23 [...] 11 Refills, Maintenance, 11/28/21 21:27:00 EDT, Solution, [facility], 188, cm, 11/22/21 16:37:00 EDT, Height, [...] Gm, 5 Refills, Maintenance, 12/22/21 7:28:00 EDT, [facility], same Rx was sent 11/11 w/ [...] 3 Refills, Maintenance, 05/07/23 16:31:00 EST, Tablet, [facility], 188, cm, 04/26/23 13:06:00 EST, Height, [...] tablet, 0 Refills, Maintenance, pain, 10/09/23 21:08:00 EDT,[facility], May partial fill., 0... Start Date: 10/09/23 Status: Ordered methadone 10 mg oral tablet See Instructions, By mouth. 2 tab in AM, 1.5 midday, 2 in evening;for pain. IDC10: G90.5 CRPS. 28 day supply. [facility]., # 154 tablet, 0 Refills, Maintenance, pain, 09/11/23 21:08:00 EDT,[facility], May partial fill., 0... Start Date: 09/11/23 Status: Ordered methadone 10 mg oral tablet See Instructions, By mouth. 2 tab in AM, 1.5 midday, 2 in evening;for pain. IDC10: G90.5 CRPS. 28 day supply. [facility]., # 154 tablet, 0 Refills, Maintenance, pain, 08/14/23 21:08:00 EDT,[facility], August partial fill., 0... [...] EDT Start Date: 02/16/22 Status: Ordered Pen [place], 31 G x 8 mm BD Ultra [...] 02/18/23 19:20:00 EST, Route to Pharmacy Electronically, [facility], 188, cm, 01/30/23 13:26:00 EDT, Height, [...] tablet, 5 Refills, Maintenance, 07/09/23 11:09:00 EDT, [facility], 30, 1 tablet By Mouth Daily, 188, cm, 07/05/23 11:09:00 EDT, Height, 126.09, kg, 04/26/23 13:06:00 EST, Dry Weight Start Date: 07/09/23 Status: Ordered tamsulosin 0.4 mg oral capsule 0.8 mg, 2, capsule, By Mouth, Daily, dose increase, # 180 capsule, Refills 11, Tot. Refills 11, Maintenance, 07/26/23 14:15:00 EDT, Route to Pharmacy Electronically, [facility], 188, cm, 07/26/23 13:30:00 EDT, Height, 121.81, kg, 07/26/23 13... Start Date: 07/26/23 Status: Ordered Test Strips See Instructions, # 100 each, Refills 5, Tot. Refills 5, Maintenance, Precision Ganga strips (for Freestyle Tatyana glucometer). Type 2 diabetes mellitus on insulin (E11, Z79.4). Test 2-4x/day if symptoms, or sensor concerns., 02/08/23 10:36:00 EDT, [facility]... Start Date: 02/08/23 Status: Ordered Test Strips [...] Intramuscular, Every 14 days, IM or subcutaneous. [facility]., # 2 mL, 5 Refills, Maintenance, 08/11/23 11:20:00 EDT, [facility], Last sent to [facility]. Sending now to [facility] due to pt request msleonardo wale... Start Date: 08/11/23 Status: Ordered tiZANidine [...] 11 Refills, Maintenance, 07/26/23 14:19:00 EDT, Solution, [facility], replaces Lantus due to insurance coverage, 188, cm, 07/26/23 13:30:00 EDT, Height, 121.81, kg, 07/25... Start Date: 07/26/23 Status: Ordered Tylenol Extra Strength 500 mg oral tablet 2 tablet = 1,000 mg, By Mouth, 3 times a day, # 30 tablet, 11 Refills, Maintenance, 03/24/21 21:00:00 EST, [facility], 188, cm, 03/22/21 14:17:00 EST, Height, 125.2, kg, 06/20/20 14:28:00 EST, Dry Weight Start Date: 03/24/21 Status: Ordered Vitamin D3 1000 intl units oral tablet 1 tablet, By Mouth, Daily, # 90 tablet, 4 Refills, Maintenance, 04/01/23 22:28:00 EST, [facility], 188, cm, 01/30/23 13:26:00 EDT, Height, [...] Team Personnel Name: Shoaib An RN Position: [facility] RN Supv Member Role: Primary Care Nurse Name: Donovan DE LOS [place], Vamshi Oshea Position: [facility] Physician - Primary Care Member Role: PCP Address: Address: [address] [place] [address]- Name: Luz Potter Position: [facility] Outreach Member Role: Lifetime Consulting Physician Name: Miki Rodriguez MD Position: [facility] Renal MD Member Role: Lifetime Consulting Physician Address: Address: [address] [facility], [place] [address]- Care Team Related Persons Name: BRANDON MTZ Address: home [address] [facility] [place] [address] Name: BRANDON BARKER Address: home [address] [place] [address] Name: ROSALINDA BERTRAND
--- OUTSIDE RECORDS SUMMARY | 2023-10-11 08:16 | XMS_ITS | Continuity of Care Document ---
Author Organization [facility] Address Unknown Care Team Providers Care Power Shovel Mechanic Name Role Phone Vamshi Man MD Primary Care Physician [phone] Encounter [facility] Date(s): 06/03/21 - 07/03/21 [facility] Allergies, Adverse Reactions, Alerts Substance Reaction [...] at [facility] at [place], [place]; ordered by Dr Michael Oliveira 13Location [...] tablet, 5 Refills, Maintenance, 05/14/21 20:06:00 EST, [facility], 188, cm, 03/22/21 14:17:00 EST, Height, 125.2, kg, 06/20/20 14:28:00 EST, Dry Weight Start Date: 05/14/21 Status: Ordered atorvastatin 40 mg oral tablet 1 tablet, By Mouth, Daily, # 90 tablet, 1 Refills, [facility], 188, cm, 03/22/21 14:17:00EST, Height, 125.2, kg, 06/20/20 14:28:00 EST, Dry Weight Start Date: 04/13/21 Status: Ordered AutoCPAP 9-18 with heated humidification AutoCPAP 9-18 with heated humidification, See Instructions, # 1 each, Refills 0, Tot. Refills 0, Maintenance, use overnight and naps from Regional, 11/04/18 12:28:22 EDT, Compound Start Date: 11/04/18 Status: Ordered Bactrim DS 800 mg-160 mg oral tablet 1 tablet, By Mouth, 2 times a day, for 7 days, # 14 tablet, 0 Refills, Acute 07/05/21 16:51:00 EDT,06/28/21 16:51:00 EDT, Tablet, [facility], Partial fill upon patient request if the prescription is for a schedule II opioid drug., 1 tablet... Start Date: 06/28/21 Stop Date: 07/05/21 Status: Ordered Batteries for Freestyle Lite Glucometer [...] 2 Refills, Maintenance, 01/07/20 14:49:00 EDT, Cream, [facility], 1 application Topically 2 times a day,Instr:apply to penile rash, 185, cm, 01/07/20 13:55:00 EDT, [place]chidi... Start Date: 01/07/20 Status: Ordered Cozaar 100 mg oral tablet 1 tablet = 100 mg, By Mouth, Daily in AM, # 30 tablet, 11 Refills, Maintenance, 09/22/20 9:41:00 EDT, Tablet, [facility], duplicate rx. original sent 09/16/19. remaining [...] 06/25/20 15:39:00 EST, Route to Pharmacy Electronically, [facility], Partial f... Start Date: 06/25/20 Status: Ordered diclofenac 1% topical gel = 2 Gm, Topically, 4 times a day, PRN for pain, (hungarian) not to exceed: 16 gm/day/joint lower limb8 gm/day/joint of upper limb 32 gm/day may interchange for cream, # 100 Gm, 5 Refills, Maintenance,07/08/20 15:35:00 EDT, Gel, [facility] Start Date: 07/08/20 Status: Ordered docusate [...] Embrace glucometer. Dx: E11, diabetes m 2, 03/07/22 1:28:00 EST, Compound, 188, cm, 05/25/21 9:26:00 [...] mL, 11 Refills, Maintenance, 01/14/21 18:16:00 EDT, [facility], 188, cm, 12/22/20 9:45:00 EDT, Height, 125.2, kg, 06/20/20 14:28:00EST, Dry Weight Start Date: 01/14/21 Status: Ordered latanoprost 0.005% ophthalmic solution 0 Refills, Maintenance, 05/11/20 16:57:00 EST Start Date: 05/11/20 Status: Ordered lidocaine 5% topical ointment See Instructions, 1 APPLICATION TOPICALLY 3 TIMES A DAY, # 70.88 Gm, 4 Refills, Acute, [facility], 14, 1 APPLICATION TOPICALLY 3 TIMES A DAY, 188, cm, 09/22/20 8:33:00 EDT, Height, 125.2, kg, 06/20/20 14:28:00 EST, Dry Weight Start Date: 11/08/20 Status: Ordered LORazepam 1 mg oral tablet See Instructions, PRN for anxiety, 2 tablets By Mouth 1 hours prior to MRI, # 2 tablet, 1 Refills, Maintenance, 05/25/21 10:06:00 EST, Tablet, [facility], 188, cm, 05/25/21 9:26:00 EST, Height, [...] 0 Refills, Maintenance, pain, 07/19/21 1:23:00 EDT, [facility], August partial fill., 07/19/21,... Start Date: 07/19/21 Status: Ordered methadone 10 mg oral tablet See Instructions, By mouth. 2 tab in AM, 1.5 midday, 2 in evening;for pain. IDC10: G90.5 CRPS. 28 day supply. [facility]., # 154 tablet, 0 Refills, Maintenance, pain, 06/21/21 22:11:00 EST,[facility], August partial fill., 06/21/21... Start Date: 06/21/21 Status: Ordered Metoclopramide = 10 mg, By Mouth, 3 times a day before meals and bedtime, 0 Refills, Maintenance, 08/20/18 13:55:26 EDT Start Date: 08/20/18 Status: Ordered multivitamin Multiple Vitamins oral tablet 1 tablet, By Mouth, Daily, B complex multivitamin, # 30 tablet, 11 Refills, Maintenance, 12/22/20 10:52:00 EDT, [facility], Partial fill upon patient request if the prescription is for a schedule II opioid drug., 1 tablet By Mouth Daily,Inst... Start Date: 12/22/20 Status: Ordered Narcan 4 mg/0.1 mL nasal spray = 4 mg, Nares, Both, Once, may repeat every 2 to 3 minutes until patient responds, # 2 each, 0 Refills, Soft Stop, 05/25/21 10:17:00 EST, [facility], 188, cm, 05/25/21 9:26:00 EST, Height, 125.2, kg, 06/20/20 14:28:00 EST, Dry Weight Start Date: 05/25/21 Status: Ordered nystatin-triamcinolone topical 166611 u/gm-0.1% ointment 1 applicator, Topically, 3 times a day, to foreskin area FOR 3 DAYS then switch to other antifungal, # 15 Gm, 1 Refills, Maintenance, 05/25/21 10:20:00 EST, [facility], 1 applicator Topically 3 times a [...] EDT Start Date: 08/20/18 Status: Ordered Pen [place], 31 G x 8 mm BD Ultra [...] mL, 11 Refills, Maintenance, 05/25/21 10:14:00 EST, [facility], Partial fill upon patient request if the prescription is for a schedule II op... Start Date: 05/25/21 Status: Ordered Singulair 10 mg oral tablet 10 mg, 1, tablet, By Mouth, Daily, # 90 tablet, Refills 3, Tot. Refills 3, Maintenance, 03/30/20 21:31:00 EST, Route to Pharmacy Electronically, [facility], 185, cm, 02/25/20 10:29:00 EST, Height, 126.81, kg, 02/25/20 10:29:00 EST, Dry Weight Start Date: 03/30/20 Status: Ordered sodium sulfacetamide ophthalmic 10% solution 1 drops, Eyes, Both, 4 times a day, for 7 days, # 15 mL, 0 Refills, Acute 07/05/21 16:59:00 EDT, 06/28/21 16:59:00 EDT, Solution, [facility], Partial fill upon patient request if the prescription is for a schedule II opioid drug., 1 drops Ey... Start Date: 06/28/21 Stop Date: 07/05/21 Status: Ordered sucralfate 1 gm oral tablet [...] solution 0.75 mL, Intramuscular, Every 14 days, [facility], # 5 mL, 5 Refills, Maintenance, 03/25/21 1:06:00 EST, [facility], 188, cm, 03/22/21 14:17:00 EST, Height, 125.2, kg, 06/20/20 14:28:00 EST, Dry Weight Start Date: 03/25/21 Status: Ordered tiZANidine 4 mg oral tablet 4 mg, 1, tablet, By Mouth, 3 times a day, PRN, # 90 tablet, Refills 11, Tot. Refills 11, Maintenance, as needed for muscle spasm, 07/08/20 15:40:00 EDT, Route to Pharmacy Electronically, [facility], 188, cm, 07/08/20 13:42:00 EDT, Height, 12... Start Date: 07/08/20 Status: Ordered traZODone 100 mg oral tablet TAKE ONE TO TWO TABLETS BY MOUTH AT BEDTIME NEEDED SZayra Morales Start Date: 05/11/20 Status: Ordered Tylenol Extra Strength 500 mg oral tablet 2 tablet = 1,000 mg, By Mouth, 3 times a day, # 30 tablet, 11 Refills, Maintenance, 03/24/21 21:00:00 EST, [facility], 188, cm, 03/22/21 14:17:00 EST, Height, 125.2, kg, 06/20/20 14:28:00 EST, Dry Weight Start Date: 03/24/21 Status: Ordered Vitamin D3 1000 intl units oral tablet 1 tablet, By Mouth, Daily, # 30 tablet, 5 Refills, [facility], 188, cm, 03/22/21 14:17:00EST, Height, 125.2, [...] ? chr regional pain syndrome 4s/p Modified [place] procedure, repair of conjoined tendon of extensor [...]
--- OUTSIDE RECORDS SUMMARY | 2023-10-11 08:16 | XMS_ITS | Continuity of Care Document ---
Author Organization [facility] Address [address] [place] [address]- Care Team Providers Care Garnett Fixer Name Role Phone Vamshi Man MD Primary Care Physician Encounter [facility] Date(s): 11/30/21 - 12/30/21 [facility] [address]- [place] Allergies, Adverse Reactions, Alerts Substance Reaction Severity Status penicillin 1 rash Resolved Latex RASH Active Other Food Allergy fresh peaches - itch y mouth, throat and lips swell Active 1rash per mother as child. Did take a penicillin for treatment of H pylori per pt w/o problem. Immunizations Given and Recorded Vaccine Date Status Refusal Reason SARS-CoV-2 mRNA (leytbyl-diet-caxhv) vax 11/11/21 Given SARS-CoV-2 (COVID-19) mRNA BNT-162b2 [...] Elissa Bertrand 12Result Comment: [11/27/2017] REceived at [facility] at [place], [place]; ordered by Dr Michael Oliveira 13Location [...] 7x/wk total. Dx: E11, 11/18/20 15:30:00 EDT, [facility], 188, cm, 09/22/20 8:33:00 EDT, [...] Mouth, Daily, # 90 tablet, 1 Refills, [facility], 188, cm, 09/15/21 12:49:00EDT, Height, 125.2, [...] 2 Refills, Maintenance, 09/15/21 14:49:00 EDT, Cream, [facility], 1 application Topically 2 times a [...] 06/25/20 15:39:00 EST, Route to Pharmacy Electronically, [facility], Partial f... Start Date: 06/25/20 Status: Ordered diclofenac 1% topical gel = 2 Gm, Topically, 4 times a day, PRN for pain, (malaysian) not to exceed: 16 gm/day/joint lower limb8 gm/day/joint of upper limb 32 gm/day may interchange for cream, # 100 Gm, 5 Refills, Maintenance,07/08/20 15:35:00 EDT, Gel, [facility] Start Date: 07/08/20 Status: Ordered docusate [...] May cause drowsiness, do notdrive after taking [place], # 28 tablet, 0 Refills, Maintenance, 12/23/21 13:27:00 EDT, [facility], 188, cm, 11/22/21 16:37:00 EDT, [place]... Start Date: 12/23/21 Stop Date: 01/06/22 Status: Ordered Glucose Monitor See Instructions, PRN, [...] 11 Refills, Maintenance, 11/28/21 21:27:00 EDT, Solution, [facility], 188, cm, 11/22/21 16:37:00 EDT, Height, 122.63, kg, 11/22/21 16:37:00 EDT, Dry We... Start Date: 11/28/21 Status: Ordered Jardiance 10 mg oral tablet 1 tablet, By Mouth, Daily in AM, # 30 tablet, 11 Refills, Maintenance, 07/25/21 20:18:00 EDT, [facility], 188, cm, 06/28/21 16:20:00 EDT, Height, [...] mL, 11 Refills, Maintenance, 01/14/21 18:16:00 EDT, [facility], 188, cm, 12/22/20 9:45:00 EDT, Height, 125.2, kg, 06/20/20 14:28:00EST, Dry Weight Start Date: 01/14/21 Status: Ordered latanoprost 0.005% ophthalmic solution 0 Refills, Maintenance, 05/11/20 16:57:00 EST Start Date: 05/11/20 Status: Ordered lidocaine 5% topical ointment See Instructions, PRN Pain , Moderate, 1 APPLICATION TOPICALLY 3 TIMES A DAY, # 50 Gm, 5 Refills, Maintenance, 12/22/21 7:28:00 EDT, [facility], same Rx was sent 11/11 w/ 5 refills, 1 APPLICATION TOPICALLY 3 TIMES A DAY,PRN:Pain , Moderate, 1... Start Date: 12/22/21 Status: Ordered LORazepam 1 mg oral tablet See Instructions, PRN for anxiety, 2 tablets By Mouth 1 hours prior to MRI, # 2 tablet, 1 Refills, Maintenance, 05/25/21 10:06:00 EST, Tablet, [facility], 188, cm, 05/25/21 9:26:00 EST, Height, [...] Daily, Take with food PRN back pain [place], # 14 tablet, 0 Refills, Maintenance, 11/25/21 13:26:00 EDT, [facility], Partial fill upon patient request if [...] 0 Refills, Maintenance, pain, 11/08/21 7:19:00 EDT, [facility], May partial fill., 188, cm,... Start Date: 11/08/21 Status: Ordered methadone 10 mg oral tablet See Instructions, By mouth. 2 tab in AM, 1.5 midday, 2 in evening;for pain. IDC10: G90.5 CRPS. 28 day supply. [facility]., # 154 tablet, 0 Refills, Maintenance, pain, 12/06/21 7:20:00 EDT, [facility], May partial fill., 12/06/21,... Start [...] 0 Refills, Maintenance, pain, 01/03/22 7:12:00 EDT, [facility], May partial fill., 01/03/22,... Start Date: 01/03/22 Status: Ordered Metoclopramide = 10 mg, By Mouth, 3 times a day before meals and bedtime, 0 Refills, Maintenance, 08/20/18 13:55:26 EDT Start Date: 08/20/18 Status: Ordered multivitamin Multiple Vitamins oral tablet 1 tablet, By Mouth, Daily, B complex multivitamin, # 30 tablet, 11 Refills, Maintenance, 11/22/21 17:58:00 EDT, [facility], Partial fill upon patient request if the prescription is for a schedule II opioid drug., 1 tablet By Mouth Daily,Inst... Start Date: 11/22/21 Status: Ordered Narcan 4 mg/0.1 mL nasal spray = 4 mg, Nares, Both, Once, may repeat every 2 to 3 minutes until patient responds, # 2 each, 0 Refills, Soft Stop, 05/25/21 10:17:00 EST, [facility], 188, cm, 05/25/21 9:26:00 EST, Height, 125.2, kg, 06/20/20 14:28:00 EST, Dry Weight Start Date: 05/25/21 Status: Ordered nystatin-triamcinolone topical 494573 u/gm-0.1% ointment 1 applicator, Topically, 3 times a day, to foreskin area FOR 3 DAYS then switch to other antifungal, # 15 Gm, 1 Refills, Maintenance, 05/25/21 10:20:00 EST, [facility], 1 applicator Topically 3 times a [...] [place] Start Date: 08/20/18 Status: Ordered Pen [place], 31 G x 8 mm BD Ultra Fine III See Instructions, # 150 each, Refills 11, Tot. Refills 11, Maintenance, use 2- 5x/day Type 2 Diabetes Mellitus on Lantus and Humalog insulin with pen, 02/27/22 13:16:00 EST, Compound, 188, cm, 11/22/21 16:37:00 EDT, Height, 122.63, kg, 11/22/21 16:37:0... Start Date: 02/27/22 Stop Date: 02/22/23 Status: Ordered Pen [place], 31 G x 8 mm BD Ultra [...] each, 11 Refills, Maintenance, 09/15/21 14:29:00 EDT, [facility], Partial fill upon patient request if the prescription is for a schedule II opioid drug., 188, cm, 09/15/21 12:4... Start Date: 09/15/21 Status: Ordered Singulair 10 mg oral tablet 10 mg, 1, tablet, By Mouth, Daily, # 90 tablet, Refills 3, Tot. Refills 3, Maintenance, 03/30/20 21:31:00 EST, Route to Pharmacy Electronically, [facility], 185, cm, 02/25/20 10:29:00 EST, Height, [...] Intramuscular, Every 14 days, IM or subcutaneous. [facility]., # 5 mL, 5 Refills, Maintenance, 11/22/21 17:58:00 EDT, [facility], 188, cm, 11/22/21 16:37:00 EDT, Height, 122.63, kg, 11/22/21 16:37:00 EDT, Dry Weight Start Date: 11/22/21 Status: Ordered tiZANidine 4 mg oral tablet 4 mg, 1, tablet, By Mouth, 3 times a day, PRN, # 90 tablet, Refills 11, Tot. Refills 11, Maintenance, as needed for muscle spasm, 08/12/21 11:09:00 EDT, Route to Pharmacy Electronically, [facility], 188, cm, 07/27/21 8:34:00 EDT, Height, 125... Start Date: 08/12/21 Status: Ordered traZODone 100 mg oral tablet TAKE ONE TO TWO TABLETS BY MOUTH AT BEDTIME NEEDED Damaris Morales Start Date: 05/11/20 Status: Ordered Tylenol Extra Strength 500 mg oral tablet 2 tablet = 1,000 mg, By Mouth, 3 times a day, # 30 tablet, 11 Refills, Maintenance, 03/24/21 21:00:00 EST, [facility], 188, cm, 03/22/21 14:17:00 EST, Height, 125.2, kg, 06/20/20 14:28:00 EST, Dry Weight Start Date: 03/24/21 Status: Ordered Vitamin D3 1000 intl units oral tablet 1 tablet, By Mouth, Daily, for 30 days, # 30 tablet, 11 Refills, Physician Stop 10/30/22 17:07:00 EDT, 11/04/21 17:07:00 EDT, [facility], 188, cm, 09/15/21 12:49:00 EDT, Height, [...] ? chr regional pain syndrome 4s/p Modified [place] procedure, repair of conjoined tendon of [...] Team Personnel Name: Vamshi Man MD Address: [address] [place] [address]
--- OUTSIDE RECORDS SUMMARY | 2023-10-11 08:16 | XMS_ITS | Continuity of Care Document ---
Author Organization [facility] Address [address] [place] [address]- Care Team Providers Care Crib Attendant Name Role Phone Vamshi Man MD Primary Care Physician [facility] Date[facility]): 03/19/23 - 04/18/23 [facility]/[place] [address]- [place] Allergies, Adverse Reactions, Alerts Substance Reaction Severity Status Other Food Allergy fresh peaches - itch y mouth, throat and lips swell Active penicillin 1 rash Resolved Latex RASH Active 1rash per mother as child. Did take a penicillin for treatment of H pylori per pt w/o problem. Immunizations Given and Recorded Vaccine Date Status Refusal Reason SARS-CoV-2(COVID-19)mRNA-LNP vac([id number]) 01/30/23 Given influenza virus vaccine, inactivated 01/05/23 [...] influenza virus vaccine, inactivated 03/19/06 Give n [id number] 12y+ bivalent booster vax 02/16/22 Given pneumococcal 20-valent conjugate vaccine 02/16/22 Given Influenza Virus Vaccine (oldterm) 9 01/27/22 Recor ded Influenza Virus Vaccine (oldterm) 01/26/21 Recorde d SARS-CoV-2 mRNA ([id number]) vax 11/11/21 Given SARS-CoV-2 (COVID-19) mRNA BNT-162b2 [...] [11/27/2017] REceived at [facility] [place], [place]; ordered by Dr Michael Bogdasarian 14Location [...] 11 Refills, Maintenance, 02/08/23 10:21:00 EDT, Powder, [facility], replaces Flovent due to insurance coverage, 188, cm, 01/30/23 13:26:00 EDT, Height, 126, kg, 01/30/23 13:26:00 EDT,... Start Date: 02/08/23 Status: Ordered Aspirin Low Dose 81 mg oral delayed release tablet 1 tablet, By Mouth, Daily, # 90 tablet, 4 Refills, Maintenance, 03/01/23 17:49:00 EST, [facility], 188, cm, 01/30/23 13:26:00 EDT, Height, 126, kg, 01/30/23 13:26:00 EDT, Dry Weight Start Date: 03/01/23 Status: Ordered atorvastatin 40 mg oral tablet See Instructions, TAKE 1 TABLET BY MOUTH EVERY DAY, # 90 tablet, 1 Refills, Maintenance, 11/02/22 16:19:00 EDT, [facility], 188, cm, 10/19/22 13:16:00 EDT, Height, 122.63, kg, 11/22/21 16:37:00 EDT, Dry Weight Start Date: 11/02/22 Status: Ordered AutoCPAP 9-18 with heated humidification AutoCPAP 9-18 with heated humidification, See Instructions, # 1 each, Refills 0, Tot. Refills 0, Maintenance, use overnight and naps from [facility], 11/04/18 12:28:22 EDT, Compound Start Date: 11/04/18 Status: Ordered baclofen 5 mg oral tablet 1 tablet = 5 mg, By Mouth, 3 times a day, take it with meals x 3/day, # 12 tablet, 0 Refills, Maintenance, 05/15/22 16:24:00 EST, Tablet, [facility], Partial fill upon patient request if [...] 2 Refills, Maintenance, 04/27/22 23:43:00 EST, Cream, [facility], 1 application Topically 2 times a day,Instr:apply to penile rash, 188, cm, 04/27/22 13:44:00 EST, Hechidi... Start Date: 04/27/22 Status: Ordered diazepam 10 mg oral tablet See Instructions, PRN, 1 tablet By Mouth 1 hr before MRI, # 1 tablet, Refills 2, Tot. Refills 2, Maintenance, as needed for anxiety, 01/30/23 15:02:00 EDT, Instructions Replace Required Details, Route to Pharmacy Electronically, [facility],... Start Date: 01/30/23 Status: Ordered diclofenac 1% topical gel = 2 Gm, Topically, 4 times a day, PRN for pain, (macedonian) not to exceed: 16 gm/day/joint lower limb8 gm/day/joint of upper limb 32 gm/day may interchange for cream, # 100 Gm, 11 Refills, Maintenance, 04/15/22 13:02:00 EST, Gel, [facility]... Start Date: 04/15/22 Status: Ordered docusate [...] 0 Refills, Maintenance, 09/03/22 13:58:00 EDT, Tablet, [facility], 188, cm, 07/18/22 14:01:00 EDT, Height, 122.63, kg, 11/22/21... Start Date: 09/03/22 Status: Ordered fexofenadine 60 mg oral tablet 1 tablet = 60 mg, By Mouth, 2 times a day, PRN for allergy symptoms, # 20 tablet, 0 Refills, Maintenance, 09/03/22 13:58:00 EDT, Tablet, [facility], Partial fill upon patient request if theprescription is for a schedule II opioid drug., 188... Start Date: 09/03/22 Status: Ordered fluticasone 50 mcg/inh nasal spray 0 Refills, Maintenance, 05/11/20 16:57:00 EST Start Date: 05/11/20 Status: Ordered Freestyle Tatyana [place] Freestyle Tatyana [place], See Instructions, # 1 each, Refills 0, [...] May cause drowsiness, do notdrive after taking [place], # 28 tablet, 0 Refills, Maintenance, 04/07/22 [...] 11 Refills, Maintenance, 11/28/21 21:27:00 EDT, Solution, [facility], 188, cm, 11/22/21 16:37:00 EDT, Height, [...] Gm, 5 Refills, Maintenance, 12/22/21 7:28:00 EDT, [facility], same Rx was sent 11/11 w/ [...] 0 Refills, Maintenance, 01/12/22 7:27:00 EDT, Tablet, [facility], 188, cm, 12/26/21 14:06:00 EDT, Height, 122.63, kg, 11/22/21 16:37:00 EDT, Dry Weight Start Date: 01/12/22 Status: Ordered losartan 100 mg oral tablet See Instructions, TAKE 1 TABLET BY MOUTH DAILY IN AM, # 30 tablet, 5 Refills, Maintenance, 02/28/2314:13:00 EST, [facility], 188, cm, 01/30/23 13:26:00 EDT, Height, 126, kg, 01/30/23 13:26:00 EDT, Dry Weight Start Date: 02/28/23 Status: Ordered LUBRIC TEARS CAEL 0.4-0.3% [place] INSTILL 1 DROP FOUR TIMES [...] Take with food PRN back pain [place], # 14 tablet, 0 Refills, Maintenance, 11/25/21 [...] Refills, Maintenance, 11/01/22 8:40:00 EDT, ER Tablet, [facility], Partial fill upon patient request if the prescription is for a schedule II opioid drug.... Start Date: 11/01/22 Status: Ordered methadone 10 mg oral tablet See Instructions, By mouth. 2 tab in AM, 1.5 midday, 2 in evening;for pain. IDC10: G90.5 CRPS. 28 day supply. [facility]., # 154 tablet, 0 Refills, Maintenance, pain, 03/27/23 10:28:00 EST,[facility], May partial fill., 03/27/23... Start Date: 03/27/23 Status: Ordered methadone 10 mg oral tablet See Instructions, By mouth. 2 tab in AM, 1.5 midday, 2 in evening;for pain. IDC10: G90.5 CRPS. 28 day supply. [facility]., # 154 tablet, 0 Refills, Maintenance, pain, 02/27/23 10:28:00 EST,[facility], May partial fill., 02/27/23... Start Date: 02/27/23 Status: Ordered methadone 10 mg oral tablet See Instructions, By mouth. 2 tab in AM, 1.5 midday, 2 in evening;for pain. IDC10: G90.5 CRPS. 28 day supply. [facility]. Early fill before travel., # 154 tablet, 0 Refills, Maintenance, pain, 02/27/23 14:24:00 EST, [facility],... Start Date: 02/27/23 Status: Ordered methadone 10 mg oral tablet See Instructions, By mouth. 2 tab in AM, 1.5 midday, 2 in evening;for pain. IDC10: G90.5 CRPS. 28 day supply. [facility]., # 154 tablet, 0 Refills, Maintenance, pain, 04/24/23 22:44:00 EST,[facility], May partial fill., 188, cm,... Start [...] 1 Refills, Soft Stop, 02/16/22 23:38:00 EDT, [facility], 188, cm, 02/16/22 13:07:00 EDT, Height,122.63, [...] mL, 10 Refills, Maintenance, 04/01/23 22:39:00 EST, [facility], Assuming this is available given order was proposed so d/c liraglutide.... Start Date: 04/01/23 Status: Ordered pantoprazole 40 mg oral delayed release tablet 0 Refills, Maintenance, 02/16/22 23:33:00 EDT Start Date: 02/16/22 Status: Ordered PEN NEEDLES MIS [id number] PEN NEEDLES MIS [id number], See Instructions, # 100 each, 5 Refills, Maintenance, USE DAILY TYPE 2 DIABETES MELLITUS ON INSULIN WITH PEN, 08/25/22 16:39:00 EDT, 188, cm, 07/18/22 14:01:00 EDT, Height, 122.63, kg, 11/22/21 16:37:00 EDT, Dry Weight Start Date: 08/25/22 Status: Ordered Pen [place], 31 G x 8 mm BD Ultra [...] 02/18/23 19:20:00 EST, Route to Pharmacy Electronically, [facility], 188, cm, 01/30/23 13:26:00 EDT, Height, 126, kg, 01/30/23 13:26:00 EDT, Dry Weight Start Date: 02/18/23 Status: Ordered Tab-A-Kelsie oral tablet 1 tablet, By Mouth, Daily, # 30 tablet, 5 Refills, Maintenance, 12/19/22 20:41:00 EDT, [facility], 30, TAKE 1 TABLET BY MOUTH EVERY DAY, 188, cm, 10/19/22 13:16:00 EDT, Height, 122.63, kg, 11/22/21 16:37:00 EDT, Dry Weight Start Date: 12/19/22 Status: Ordered tamsulosin 0.4 mg oral capsule 0.8 mg, 2, capsule, By Mouth, Daily, dose increase, # 60 capsule, Refills 11, Tot. Refills 11, Maintenance, 07/27/22 11:57:00 EDT, Route to Pharmacy Electronically, [facility], 188, cm, 07/18/22 14:01:00 EDT, Height, 122.63, kg, 11/22/21 16:... Start Date: 07/27/22 Status: Ordered Test Strips See Instructions, # 100 each, Refills 5, Tot. Refills 5, Maintenance, Precision Ganga strips (for Freestyle Tatyana glucometer). Type 2 diabetes mellitus on insulin (E11, Z79.4). Test 2-4x/day if symptoms, or sensor concerns., 02/08/23 10:36:00 EDT, [place]... Start Date: 02/08/23 Status: Ordered Test Strips [...] Intramuscular, Every 14 days, IM or subcutaneous. [facility]., # 2 mL, 5 Refills, Maintenance, 10/27/22 17:23:00 EDT, [facility], 188, cm, 10/19/22 13:16:00 EDT, Height, 122.63, kg, 11/22/21 16:37:00 EDT, Dry Weight Start Date: 10/27/22 Status: Ordered tiZANidine 4 mg oral tablet 4 mg, 1, tablet, By Mouth, 3 times a day, PRN, # 90 tablet, Refills 11, Tot. Refills 11, Maintenance, as needed for muscle spasm, 08/18/22 8:03:00 EDT, Route to Pharmacy Electronically, [facility], 188, cm, 07/18/22 14:01:00 EDT, Height, 122... Start Date: 08/18/22 Status: Ordered Toujeo Max SoloStar 300 units/mL subcutaneous solution = 60 units, Subcutaneous Injection, Daily, # 12 mL, 11 Refills, Maintenance, 02/08/23 10:15:00 EDT,Solution, [facility], replaces Lantus due to insurance coverage, [...] tablet, 11 Refills, Maintenance, 03/24/21 21:00:00 EST, [facility], 188, cm, 03/22/21 14:17:00 EST, Height, 125.2, kg, 06/20/20 14:28:00 EST, Dry Weight Start Date: 03/24/21 Status: Ordered Victoza 18 mg/3 mL subcutaneous solution = 1.8 mg, Subcutaneous Injection, Daily, # 9 mL, 11 Refills, Maintenance, 02/08/23 10:25:00 EDT, Solution, [facility], replaces semaglutide, 188, cm, 01/30/23 13:26:00 EDT, Height, 126, kg,01/30/23 13:26:00 EDT, Dry Weight Start Date: 02/08/23 Status: Ordered Vitamin D3 1000 intl units oral tablet 1 tablet, By Mouth, Daily, # 90 tablet, 4 Refills, Maintenance, 04/01/23 22:28:00 EST, [facility], 188, cm, 01/30/23 13:26:00 EDT, Height, [...] Team Personnel Name: Shoaib An RN Position: [facility] RN Supv Member Role: Primary Care Nurse Name: Vamshi Man MD Position: [facility] Physician - Primary Care Member Role: PCP Address: Address: [address] [place] [address] Name: Luz Potter Position: [facility] Outreach Member Role: Lifetime Consulting Physician Name: Miki Rodriguez MD Position: [facility] Renal MD Member Role: Lifetime Consulting Physician Address: Address: [address] [facility] [place] [address]- [place] Care Team Related Persons Name: BRANDON MTZ Address: home [address] [place] [address] Name: BRANDON BARKER Address: home [address] [place] [address] Name: ROSALINDA BERTRAND Address: home [address] [place] [address]
--- OUTSIDE RECORDS SUMMARY | 2023-10-11 08:17 | XMS_ITS | Continuity of Care Document ---
Author Organization [facility] Address [address] [place] [address]- Care Team Providers Care Biofuels Production Technician Name Role Phone Vamshi Man MD Primary Care Physician [facility] Date[facility]): 09[facility]14[facility]22 - 10/14/22 [facility]/[place] [address]- [place] Allergies, Adverse Reactions, Alerts Substance Reaction Severity Status penicillin 1 rash Resolved Latex RASH Active Other Food Allergy fresh peaches - itch y mouth, throat and lips swell Active 1rash per mother as child. Did take a penicillin for treatment of H pylori per pt w/o problem. Immunizations Given and Recorded Vaccine Date Status Refusal Reason [id number] 12y+ bivalent booster vax 02/16/22 Given pneumococcal 20-valent conjugate vaccine 02/16/22 Given Influenza Virus Vaccine (oldterm) 1 01/27/22 Recor ded Influenza Virus Vaccine (oldterm) 01/26/21 Recorde d SARS-CoV-2 mRNA ([id number]) vax 11/11/21 Given SARS-CoV-2 (COVID-19) mRNA BNT-162b2 [...] Elissa Bertrand 13Result Comment: [11/27/2017] REceived at [facility] [place], [place]; ordered by Dr Michael Oliveira 14Location [...] tablet, 5 Refills, Maintenance, 09/06/22 21:30:00 EDT, [facility], 188, cm, 07/18/22 14:01:00 EDT, Height, 122.63, kg, 11/22/21 16:37:00 EDT, Dry Weight Start Date: 09/06/22 Status: Ordered atorvastatin 40 mg oral tablet 1 tablet, By Mouth, Daily, # 90 tablet, 1 Refills, Maintenance, 04/10/22 12:34:00 EST, [facility], 188, cm, 02/16/22 13:07:00 EDT, Height, [...] 0 Refills, Maintenance, 05/15/22 16:24:00 EST, Tablet, [facility], Partial fill upon patient request if [...] 2 Refills, Maintenance, 04/27/22 23:43:00 EST, Cream, [facility], 1 application Topically 2 times a day,Instr:apply to penile rash, 188, cm, 04/27/22 13:44:00 EST, [facility]... Start Date: 04/27/22 Status: Ordered diclofenac 1% topical gel = 2 Gm, Topically, 4 times a day, PRN for pain, (nauruan) not to exceed: 16 gm/day/joint lower limb8 gm/day/joint of upper limb 32 gm/day may interchange for cream, # 100 Gm, 11 Refills, Maintenance, 04/15/22 13:02:00 EST, Gel, [facility]... Start Date: 04/15/22 Status: Ordered docusate [...] 0 Refills, Maintenance, 09/03/22 13:58:00 EDT, Tablet, [facility], 188, cm, 07/18/22 14:01:00 EDT, Height, 122.63, kg, 11/22/21... Start Date: 09/03/22 Status: Ordered fexofenadine 60 mg oral tablet 1 tablet = 60 mg, By Mouth, 2 times a day, PRN for allergy symptoms, # 20 tablet, 0 Refills, Maintenance, 09/03/22 13:58:00 EDT, Tablet, [facility], Partial fill upon patient request if [...] May cause drowsiness, do notdrive after taking [place], # 28 tablet, 0 Refills, Maintenance, 04/07/22 15:51:00 EST[facility], cm, 02/16/22 13:07:00 EDT, Heigh... [...] 11 Refills, Maintenance, 11/28/21 21:27:00 EDT, Solution, [facility], 188, cm, 11/22/21 16:37:00 EDT, Height, [...] mL, 5 Refills, Maintenance, 08/02/22 14:51:00 EDT, [facility], 188, cm, 07/18/22 14:01:00 EDT, Height, 122.63,kg, 11/22/21 16:37:00 EDT, Dry Weight Start Date: 08/02/22 Status: Ordered latanoprost 0.005% ophthalmic solution 0 Refills, Maintenance, 05/11/20 16:57:00 EST Start Date: 05/11/20 Status: Ordered lidocaine 5% topical ointment See Instructions, PRN Pain , Moderate, 1 APPLICATION TOPICALLY 3 TIMES A DAY, # 50 Gm, 5 Refills, Maintenance, 12/22/21 7:28:00 EDT, [facility], same Rx was sent 11/11 w/ [...] 0 Refills, Maintenance, 01/12/22 7:27:00 EDT, Tablet, [facility], 188, cm, 12/26/21 14:06:00 EDT, Height, 122.63, kg, 11/22/21 16:37:00 EDT, Dry Weight Start Date: 01/12/22 Status: Ordered losartan 100 mg oral tablet See Instructions, TAKE 1 TABLET BY MOUTH DAILY IN AM, # 30 tablet, 4 Refills, Maintenance, 10/06/2315:25:00 EDT, [facility], 188, cm, 07/18/22 14:01:00 EDT, Height, [...] Daily, Take with food PRN back pain [place], # 14 tablet, 0 Refills, Maintenance, 11/25/21 [...] 1 Refills, Soft Stop, 02/16/22 23:38:00 EDT, [facility], 188, cm, 02/16/22 13:07:00 EDT, Height,122.63, [...] Date: 02/16/22 Status: Ordered PEN NEEDLES MIS [id number] PEN NEEDLES MIS [id number], See Instructions, # 100 each, 5 Refills, Maintenance, USE DAILY TYPE 2 DIABETES MELLITUS ON INSULIN WITH PEN, 08/25/22 16:39:00 EDT, 188, cm, 07/18/22 14:01:00 EDT, Height, 122.63, kg, 11/22/21 16:37:00 EDT, Dry Weight Start Date: 08/25/22 Status: Ordered Pen [place], 31 G x 8 mm BD Ultra [...] mL, 11 Refills, Maintenance, 04/27/22 23:40:00 EST, [facility], 188, cm, 04/27/22 13:44:00 EST, Height, 122.63, kg, 11/22/21 16:37:00 EDT,... Start Date: 04/27/22 Status: Ordered Singulair 10 mg oral tablet 10 mg, 1, tablet, By Mouth, Daily, # 90 tablet, Refills 3, Tot. Refills 3, Maintenance, 03/30/20 21:31:00 EST, Route to Pharmacy Electronically, [facility], 185, cm, 02/25/20 10:29:00 EST, Height, 126.81, kg, 02/25/20 10:29:00 EST, Dry Weight Start Date: 03/30/20 Status: Ordered tamsulosin 0.4 mg oral capsule 0.8 mg, 2, capsule, By Mouth, Daily, dose increase, # 60 capsule, Refills 11, Tot. Refills 11, Maintenance, 07/27/22 11:57:00 EDT, Route to Pharmacy Electronically, [facility], 188, cm, 07/18/22 14:01:00 EDT, Height, [...] Intramuscular, Every 14 days, IM or subcutaneous. [facility]., # 2 mL, 5 Refills, Maintenance, 07/26/22 21:21:00 EDT, [facility], 188, cm, 07/18/22 14:01:00 EDT, Height, 122.63, kg, 11/22/21 16:37:00 EDT, Dry Weight Start Date: 07/26/22 Status: Ordered tiZANidine 4 mg oral tablet 4 mg, 1, tablet, By Mouth, 3 times a day, PRN, # 90 tablet, Refills 11, Tot. Refills 11, Maintenance, as needed for muscle spasm, 08/18/22 8:03:00 EDT, Route to Pharmacy Electronically, [facility], 188, cm, 07/18/22 14:01:00 EDT, Height, 122... Start Date: 08/18/22 Status: Ordered traZODone 100 mg oral tablet TAKE ONE TO TWO TABLETS BY MOUTH AT BEDTIME NEEDED SZayra Morales Start Date: 05/11/20 Status: Ordered Tylenol Extra Strength 500 mg oral tablet 2 tablet = 1,000 mg, By Mouth, 3 times a day, # 30 tablet, 11 Refills, Maintenance, 03/24/21 21:00:00 EST, [facility], 188, cm, 03/22/21 14:17:00 EST, Height, 125.2, kg, 06/20/20 14:28:00 EST, Dry Weight Start Date: 03/24/21 Status: Ordered Vitamin D3 1000 intl units oral tablet 1 tablet, By Mouth, Daily, for 30 days, # 30 tablet, 11 Refills, Physician Stop 10/30/22 17:07:00 EDT, 11/04/21 17:07:00 EDT, [facility], 188, cm, 09/15/21 12:49:00 EDT, Height, [...] ? chr regional pain syndrome 4s/p Modified [place] procedure, repair of conjoined tendon of extensor [...] Team Personnel Name: Shoaib An RN Position: [facility] RN Supv Member Role: Primary Care Nurse Name: Vamshi Man MD Position: [facility] Physician - Primary Care Member Role: PCP Address: Address: [address] [place] [address]- Name: Miki Rodriguez MD Position: [facility] Renal MD Member Role: Lifetime Consulting Physician Address: Address: [address] [facility] [place] [address]- Care Team Related Persons Name: BRANDON MTZ Address: home [address] [place] [address] Name: BRANDON BARKER Address: home [address] [place] [address] Name: ROSALINDA BERTRAND Address: [place] [address]
--- OUTSIDE RECORDS SUMMARY | 2023-10-11 08:17 | XMS_ITS | Continuity of Care Document ---
Author Organization [facility] Address [address] [place] [address]- Care Team Providers Care Correspondence Representative Name Role Phone Vamshi Man MD Primary Care Physician [place] [facility] [place] 04/23/22 [facility] [address]- Attending Physician: Not on Staff, Attending MD [...] and Recorded Vaccine Date Status Refusal Reason [id number] 12y+ bivalent booster vax 02/16/22 Given pneumococcal 20-valent conjugate vaccine 02/16/22 Given SARS-CoV-2 mRNA ([id number]) vax 11/11/21 Given SARS-CoV-2 (COVID-19) mRNA BNT-162b2 [...] Elissa Bertrand 12Result Comment: [11/27/2017] REceived at [facility] at [place], [place]; ordered by Dr Michael Oliveira 13Location [...] tablet, 5 Refills, Maintenance, 11/20/21 13:03:00 EDT, [facility], 188, cm, 11/11/21 12:46:00 EDT, Height, 125.2, kg, 06/20/20 14:28:00 EST, Dry Weight Start Date: 11/20/21 Status: Ordered atorvastatin 40 mg oral tablet 1 tablet, By Mouth, Daily, # 90 tablet, 1 Refills, Maintenance, 04/10/22 12:34:00 EST, [facility], 188, cm, 02/16/22 13:07:00 EDT, Height, [...] 2 Refills, Maintenance, 02/16/22 23:34:00 EDT, Cream, [facility], 1 application Topically 2 times a day,Instr:apply to penile rash, 188, cm, 02/16/22 13:07:00 EDT, [facility]... Start Date: 02/16/22 Status: Ordered diclofenac 1% topical gel = 2 Gm, Topically, 4 times a day, PRN for pain, (thai) not to exceed: 16 gm/day/joint lower limb8 gm/day/joint of upper limb 32 gm/day may interchange for cream, # 100 Gm, 11 Refills, Maintenance, 04/15/22 13:02:00 EST, Gel, [facility]... Start Date: 04/15/22 Status: Ordered docusate [...] 11 Refills, Maintenance, 03/30/22 23:35:00 EST, Solution, [facility], 188, cm, 02/16/22 13:07:00 EDT, Height, [...] May cause drowsiness, do notdrive after taking Anguillan, # 28 tablet, 0 Refills, Maintenance, 04/07/22 15:51:00 EST, [facility], 188, cm, 02/16/22 13:07:00 EDT, Heigh... Start [...] 11 Refills, Maintenance, 11/28/21 21:27:00 EDT, Solution, [facility], 188, cm, 11/22/21 16:37:00 EDT, Height, [...] mL, 5 Refills, Maintenance, 01/23/22 8:43:00 EDT, [facility], 188, cm, 12/26/21 14:06:00 EDT, Height, 122.63, kg, 11/22/21 16:37:00 EDT, Dry Weight Start Date: 01/23/22 Status: Ordered latanoprost 0.005% ophthalmic solution 0 Refills, Maintenance, 05/11/20 16:57:00 EST Start Date: 05/11/20 Status: Ordered lidocaine 5% topical ointment See Instructions, PRN Pain , Moderate, 1 APPLICATION TOPICALLY 3 TIMES A DAY, # 50 Gm, 5 Refills, Maintenance, 12/22/21 7:28:00 EDT, [facility], same Rx was sent 11/11 w/ [...] 0 Refills, Maintenance, 01/12/22 7:27:00 EDT, Tablet, [facility], 188, cm, 12/26/21 14:06:00 EDT, Height, 122.63, kg, 11/22/21 16:37:00 EDT, Dry Weight Start Date: 01/12/22 Status: Ordered losartan 100 mg oral tablet 1 tablet, By Mouth, Daily in AM, # 30 tablet, 5 Refills, 03/20/22 10:07:00 EST, [facility], 188, cm, 02/16/22 13:07:00 EDT, Height, 122.63, kg, 11/22/21 16:37:00 EDT, Dry Weight Start Date: 03/20/22 Status: Ordered LUBRIC TEARS CALE 0.4-0.3% Milliliters INSTILL 1 DROP FOUR TIMES DAILY EACH EYE Start Date: 05/11/20 Status: Ordered meloxicam 15 mg oral tablet 1 tablet = 15 mg, By Mouth, Daily, Take with food PRN back pain Anguillan, # 14 tablet, 0 Refills, Maintenance, 11/25/21 13:26:00 EDT, [facility], Partial fill upon patient request if the prescription is for a schedule II opioid drug., 188,... Start Date: 11/25/21 Stop Date: 12/09/21 Status: Ordered metFORMIN 750 mg oral tablet, extended release 1 tablet = 750 mg, By Mouth, Daily, [replaces the metformin 500mg bid], # 30 tablet, 11 Refills, Maintenance, 11/22/21 17:53:00 EDT, ER Tablet, [facility], Partial fill upon patient requestif the prescription is for a schedule II opioid alessandra... Start Date: 11/22/21 Status: Ordered methadone 10 mg oral tablet See Instructions, By mouth. 2 tab in AM, 1.5 midday, 2 in evening;for pain. IDC10: G90.5 CRPS. 28 day supply. [facility]., # 154 tablet, 0 Refills, Maintenance, pain, 01/31/22 7:25:00 EDT, [facility], May partial fill., 01/31/22,... Start Date: 01/31/22 Status: Ordered methadone 10 mg oral tablet See Instructions, By mouth. 2 tab in AM, 1.5 midday, 2 in evening;for pain. IDC10: G90.5 CRPS. 28 day supply. [facility]., # 154 tablet, 0 Refills, Maintenance, pain, 02/28/22 14:14:00 EST,[facility], May partial fill. May fill... Start Date: 02/28/22 Status: Ordered methadone 10 mg oral tablet See Instructions, By mouth. 2 tab in AM, 1.5 midday, 2 in evening;for pain. IDC10: G90.5 CRPS. 28 day supply. [facility]., # 154 tablet, 0 Refills, Maintenance, pain, 04/25/22 23:30:00 EST,[facility], May partial fill., 04/25/22... Start Date: 04/25/22 Status: Ordered methadone 10 mg oral tablet See Instructions, By mouth. 2 tab in AM, 1.5 midday, 2 in evening;for pain. IDC10: G90.5 CRPS. 28 day supply. [facility]., # 154 tablet, 0 Refills, Maintenance, pain, 03/28/22 23:30:00 EST,[facility], August partial fill., 03/28/22... Start Date: 03/28/22 Status: Ordered Metoclopramide = 10 mg, By Mouth, 3 times a day before meals and bedtime, 0 Refills, Maintenance, 08/20/18 13:55:26 EDT Start Date: 08/20/18 Status: Ordered multivitamin Multiple Vitamins oral tablet 1 tablet, By Mouth, Daily, B complex multivitamin, # 30 tablet, 11 Refills, Maintenance, 11/22/21 17:58:00 EDT, [facility], Partial fill upon patient [...] 1 Refills, Soft Stop, 02/16/22 23:38:00 EDT, [facility], 188, cm, 02/16/22 13:07:00 EDT, [...] EDT Start Date: 02/16/22 Status: Ordered Pen Philo, 31 G x 8 mm BD Ultra [...] each, 11 Refills, Maintenance, 09/15/21 14:29:00 EDT, [facility], Partial fill upon patient request if the prescription is for a schedule II opioid drug., 188, cm, 09/15/21 12:4... Start Date: 09/15/21 Status: Ordered Singulair 10 mg oral tablet 10 mg, 1, tablet, By Mouth, Daily, # 90 tablet, Refills 3, Tot. Refills 3, Maintenance, 03/30/20 21:31:00 EST, Route to Pharmacy Electronically, [facility], 185, cm, 02/25/20 10:29:00 EST, Height, 126.81, kg, 02/25/20 10:29:00 EST, Dry Weight Start Date: 03/30/20 Status: Ordered tamsulosin 0.4 mg oral capsule 0.4 mg, 1, capsule, By Mouth, Daily, Per urology, # 30 capsule, Refills 11, Tot. Refills 11, Maintenance, 02/16/22 23:29:00 EDT, Route to Pharmacy Electronically, [facility], 188, cm, 02/16/22 13:07:00 EDT, Height, [...] Intramuscular, Every 14 days, IM or subcutaneous. [facility]., # 2 mL, 5 Refills, Maintenance, 02/05/22 22:55:00 EDT, [facility], 188, cm, 12/26/21 14:06:00 EDT, Height, 122.63, kg, 11/22/21 16:37:00 EDT, Dry Weight Start Date: 02/05/22 Status: Ordered tiZANidine 4 mg oral tablet 4 mg, 1, tablet, By Mouth, 3 times a day, PRN, # 90 tablet, Refills 11, Tot. Refills 11, Maintenance, as needed for muscle spasm, 08/12/21 11:09:00 EDT, Route to Pharmacy Electronically, [facility], 188, cm, 07/27/21 8:34:00 EDT, Height, 125... Start Date: 08/12/21 Status: Ordered traZODone 100 mg oral tablet TAKE ONE TO TWO TABLETS BY MOUTH AT BEDTIME NEEDED Damaris Morales Start Date: 05/11/20 Status: Ordered Tylenol Extra Strength 500 mg oral tablet 2 tablet = 1,000 mg, By Mouth, 3 times a day, # 30 tablet, 11 Refills, Maintenance, 03/24/21 21:00:00 EST, [facility], 188, cm, 03/22/21 14:17:00 EST, Height, 125.2, kg, 06/20/20 14:28:00 EST, Dry Weight Start Date: 03/24/21 Status: Ordered Vitamin D3 1000 intl units oral tablet 1 tablet, By Mouth, Daily, for 30 days, # 30 tablet, 11 Refills, Physician Stop 10/30/22 17:07:00 EDT, 11/04/21 17:07:00 EDT, [facility], 188, cm, 09/15/21 12:49:00 EDT, Height, [...] ? chr regional pain syndrome 4s/p Modified [place] procedure, repair of conjoined tendon of extensor [...] Team Personnel Name: Shoaib An RN Position: [facility] RN Supv Member Role: Primary Care Nurse Name: Donovan DE LOS SANTOS, Vamshi Oshea Position: [facility] Primary Care Physician Member Role: PCP Address: Address: [address] [place] [address]- Name: Miki Rodriguez MD Position: [facility] Renal MD Member Role: Lifetime Consulting Physician Address: Address: [address] [facility] [place] [address]- Care Team Related Persons Name: BRANDON MTZ Address: home [address] [place] [address] Name: BRANDON BARKER Address: home [address] [place] [address] Name: ROSALINDA BERTRAND Address: home [address] [place] [address]
--- OUTSIDE RECORDS SUMMARY | 2023-10-11 08:17 | XMS_ITS | Continuity of Care Document ---
Author Organization [facility] Address [address] [place] [address]- Care Team Providers Care Field Service Technician Name Role Phone Vamshi Man MD Primary Care Physician Encounter [facility] Date(s): 06/21/20 - 07/21/20 [facility]/[address] [address]- Allergies, Adverse Reactions, Alerts Substance Reaction Severity [...] 12Result Comment: [11/27/2017] REceived at [facility] at [place], [place]; ordered by Dr Michael Oliveira 13Location [...] 03/30/20 21:31:00 EST, Route to Pharmacy Electronically, [facility], [employer] rx. original sent 11/04/19. remaining refills sent., [...] capsule, 3 Refills, Maintenance, 03/30/20 21:36:00 EST, [facility], 185, cm, 02/25/20 10:29:00 EST, Height, 126.81, kg, 02/25/20 10:29:00 EST, Dry Weight Start Date: 03/30/20 Status: Ordered clotrimazole 1% topical cream 1 application, Topically, 2 times a day, apply to penile rash, # 30 Gm, 2 Refills, Maintenance, 01/07/20 14:49:00 EDT, Cream, [facility], 1 application Topically 2 times a day,Instr:apply to penile rash, 185, cm, 01/07/20 13:55:00 EDT, [facility]... Start Date: 01/07/20 Status: Ordered Cozaar 100 mg oral tablet 1 tablet = 100 mg, By Mouth, Daily in AM, # 30 tablet, 5 Refills, Maintenance, 03/15/20 17:08:00 EST, Tablet, [facility], duplicate rx. original sent 09/16/19. remaining [...] 06/25/20 15:39:00 EST, Route to Pharmacy Electronically, [facility], Partial f... Start Date: 06/25/20 Status: Ordered diclofenac 1% topical gel = 2 Gm, Topically, 4 times a day, PRN for pain, (omani) not to exceed: 16 gm/day/joint lower limb8 gm/day/joint of upper limb 32 gm/day may interchange for cream, # 100 Gm, 5 Refills, Maintenance,07/08/20 15:35:00 EDT, Gel, [facility] Start Date: 07/08/20 Status: Ordered docusate [...] 11 Refills, Maintenance, 02/15/20 21:05:00 EST, Solution, [facility], 185, cm, 01/07/20 13:55:00 EDT, Height, [...] mL, 3 Refills, Maintenance, 07/08/20 15:42:00 EDT, [facility], Duplicate rx-Original rx sent 06/22/20. Resent., 188, cm, 07/08/20 13:42:00 EDT, Height, 125.2, kg, 06/20/20 14:28:00 EST,... Start Date: 07/08/20 Status: Ordered latanoprost 0.005% ophthalmic solution 0 Refills, Maintenance, 05/11/20 16:57:00 EST Start Date: 05/11/20 Status: Ordered Lipitor 40 mg oral tablet 1 tablet = 40 mg, By Mouth, Daily, # 90 tablet, 3 Refills, Maintenance, 03/30/20 21:30:00 EST, [facility], duplicate rx. original sent 11/04/19. remaining [...] pain. IDC10: G90.5 CRPS. 28 day supply. [facility]., # 154 tablet, 0 Refills, Maintenance, pain, 07/20/20 15:43:00 EDT,[facility], May partial fill., 188, cm,... Start Date: 07/20/20 Status: Ordered methadone 10 mg oral tablet See Instructions, By mouth. 2 tab in AM, 1.5 midday, 2 in evening;for pain. IDC10: G90.5 CRPS. 28 day supply. [facility]., # 154 tablet, 0 Refills, Maintenance, pain, 08/17/20 15:47:00 EDT,[facility], May partial fill., 08/17/20... Start Date: [...] Start Date: 05/15/18 Status: Ordered nystatin-triamcinolone topical 145869 u/gm-0.1% ointment 1 applicator, Topically, 3 times a day, to foreskin area FOR 3 DAYS then switch to other antifungal, # 15 Gm, 1 Refills, Maintenance, 07/08/20 15:34:00 EDT, [facility], 1 applicator Topically 3 times a [...] EDT Start Date: 08/20/18 Status: Ordered Pen [place], 31 G x 8 mm BD Ultra [...] 03/30/20 21:31:00 EST, Route to Pharmacy Electronically, [facility], 185, cm, 02/25/20 10:29:00 EST, Height, [...] solution 0.75 mL, Intramuscular, Every 14 days, [facility], # 5 mL, 5 Refills, Maintenance, 01/11/20 21:30:00 EDT, [facility], 185, cm, 01/07/20 13:55:00 EDT, Height, 127.72, kg, 05/06/19 13:41:00 EST, Dry Weight Start Date: 01/11/20 Status: Ordered tiZANidine 4 mg oral tablet 4 mg, 1, tablet, By Mouth, 3 times a day, PRN, # 90 tablet, Refills 11, Tot. Refills 11, Maintenance, as needed for muscle spasm, 07/08/20 15:40:00 EDT, Route to Pharmacy Electronically, [facility], 188, cm, 07/08/20 13:42:00 EDT, Height, [...] ? chr regional pain syndrome 4s/p Modified [place] procedure, repair of conjoined tendon of extensor [...]
--- OUTSIDE RECORDS SUMMARY | 2023-10-11 08:17 | XMS_ITS | Continuity of Care Document ---
Author Organization [facility] Address [address] [place] [address]- Care Team Providers Care Fermenter Helper Name Role Phone Vamshi Man MD Primary Care Physician [place] [facility] [place] 06/29/22 [facility] [address]- [place] Allergies, Adverse Reactions, Alerts Substance Reaction Severity Status penicillin 1 rash Resolved Other Food Allergy fresh peaches - itch y mouth, throat and lips swell Active Latex RASH Active 1rash per mother as child. Did take a penicillin for treatment of H pylori per pt w/o problem. Immunizations Given and Recorded Vaccine Date Status Refusal Reason [id number] 12y+ bivalent booster vax 02/16/22 Given pneumococcal 20-valent conjugate vaccine 02/16/22 Given Influenza Virus Vaccine (oldterm) 1 01/27/22 Recor ded Influenza Virus Vaccine (oldterm) 01/26/21 Recorde d SARS-CoV-2 mRNA ([id number]) vax 11/11/21 Given SARS-CoV-2 (COVID-19) mRNA BNT-162b2 [...] Bertrand 13Result Comment: [11/27/2017] REceived at [facility] [place], [place]; ordered by Dr Michael Oliveira 14Location [...] tablet, 5 Refills, Maintenance, 11/20/21 13:03:00 EDT, [facility], 188, cm, 11/11/21 12:46:00 EDT, Height, 125.2, kg, 06/20/20 14:28:00 EST, Dry Weight Start Date: 11/20/21 Status: Ordered atorvastatin 40 mg oral tablet 1 tablet, By Mouth, Daily, # 90 tablet, 1 Refills, Maintenance, 04/10/22 12:34:00 EST, [facility], 188, cm, 02/16/22 13:07:00 EDT, Height, [...] 2 Refills, Maintenance, 04/27/22 23:43:00 EST, Cream, [facility], 1 application Topically 2 times a [...] May cause drowsiness, do notdrive after taking Tunisian, # 28 tablet, 0 Refills, Maintenance, 04/07/22 15:51:00 EST, [facility], 188, cm, 02/16/22 13:07:00 EDT, Heigh... Start [...] 11 Refills, Maintenance, 11/28/21 21:27:00 EDT, Solution, [facility], 188, cm, 11/22/21 16:37:00 EDT, Height, [...] mL, 5 Refills, Maintenance, 01/23/22 8:43:00 EDT, [facility], 188, cm, 12/26/21 14:06:00 EDT, Height, 122.63, kg, 11/22/21 16:37:00 EDT, Dry Weight Start Date: 01/23/22 Status: Ordered latanoprost 0.005% ophthalmic solution 0 Refills, Maintenance, 05/11/20 16:57:00 EST Start Date: 05/11/20 Status: Ordered lidocaine 5% topical ointment See Instructions, PRN Pain , Moderate, 1 APPLICATION TOPICALLY 3 TIMES A DAY, # 50 Gm, 5 Refills, Maintenance, 12/22/21 7:28:00 EDT, [facility], same Rx was sent 11/11 w/ [...] 0 Refills, Maintenance, 01/12/22 7:27:00 EDT, Tablet, [facility], 188, cm, 12/26/21 14:06:00 EDT, Height, 122.63, kg, 11/22/21 16:37:00 EDT, Dry Weight Start Date: 01/12/22 Status: Ordered losartan 100 mg oral tablet 1 tablet, By Mouth, Daily in AM, # 30 tablet, 5 Refills, 03/20/22 10:07:00 EST, [facility], 188, cm, 02/16/22 13:07:00 EDT, Height, [...] Daily, Take with food PRN back pain Tunisian, # 14 tablet, 0 Refills, Maintenance, 11/25/21 [...] pain. IDC10: G90.5 CRPS. 28 day supply. [facility]., # 154 tablet, 0 Refills, Maintenance, pain, 07/18/22 23:44:00 EDT,[facility], May partial fill., 07/18/22... Start Date: 07/18/22 Status: Ordered methadone 10 mg oral tablet See Instructions, By mouth. 2 tab in AM, 1.5 midday, 2 in evening;for pain. IDC10: G90.5 CRPS. 28 day supply. [facility]., # 154 tablet, 0 Refills, Maintenance, pain, 05/23/22 23:44:00 EST,[facility], May partial fill., 05/23/22... Start Date: 05/23/22 Status: Ordered methadone 10 mg oral tablet See Instructions, By mouth. 2 tab in AM, 1.5 midday, 2 in evening;for pain. IDC10: G90.5 CRPS. 28 day supply. [facility]., # 154 tablet, 0 Refills, Maintenance, pain, 06/20/22 23:45:00 EST,[facility], August partial fill., 06/20/22... Start Date: 06/20/22 Status: Ordered methadone 10 mg oral tablet See Instructions, By mouth. 2 tab in AM, 1.5 midday, 2 in evening;for pain. IDC10: G90.5 CRPS. 28 day supply. [facility]., # 154 tablet, 0 Refills, Maintenance, pain, 04/25/22 23:30:00 EST,[facility], May partial fill., 04/25/22... Start Date: [...] Idalia Lori Start Date: 08/20/18 Status: Ordered pantoprazole 40 mg oral delayed release tablet 0 Refills, Maintenance, 02/16/22 23:33:00 EDT Start Date: 02/16/22 Status: Ordered Pen [place], 31 G x 8 mm BD Ultra Fine III See Instructions, # 150 each, Refills 11, Tot. Refills 11, Maintenance, use 2- 5x/day Type 2 Diabetes Mellitus on Lantus and Humalog insulin with pen, 05/30/22 12:24:00 EST, [facility], 188, cm, 05/19/22 10:14:00 EST, Height, 122.63, [...] mL, 11 Refills, Maintenance, 04/27/22 23:40:00 EST, [facility], 188, cm, 04/27/22 13:44:00 EST, Height, 122.63, kg, 11/22/21 16:37:00 EDT,... Start Date: 04/27/22 Status: Ordered Singulair 10 mg oral tablet 10 mg, 1, tablet, By Mouth, Daily, # 90 tablet, Refills 3, Tot. Refills 3, Maintenance, 03/30/20 21:31:00 EST, Route to Pharmacy Electronically, [facility], 185, cm, 02/25/20 10:29:00 EST, Height, 126.81, kg, 02/25/20 10:29:00 EST, Dry Weight Start Date: 03/30/20 Status: Ordered tamsulosin 0.4 mg oral capsule 0.4 mg, 1, capsule, By Mouth, Daily, Per urology, # 30 capsule, Refills 11, Tot. Refills 11, Maintenance, 02/16/22 23:29:00 EDT, Route to Pharmacy Electronically, [facility], 188, cm, 02/16/22 13:07:00 EDT, Height, [...] Intramuscular, Every 14 days, IM or subcutaneous. [facility]., # 2 mL, 5 Refills, Maintenance, 02/05/22 22:55:00 EDT, [facility], 188, cm, 12/26/21 14:06:00 EDT, Height, 122.63, kg, 11/22/21 16:37:00 EDT, Dry Weight Start Date: 02/05/22 Status: Ordered tiZANidine 4 mg oral tablet 4 mg, 1, tablet, By Mouth, 3 times a day, PRN, # 90 tablet, Refills 11, Tot. Refills 11, Maintenance, as needed for muscle spasm, 08/12/21 11:09:00 EDT, Route to Pharmacy Electronically, [facility], 188, cm, 07/27/21 8:34:00 EDT, Height, 125... Start Date: 08/12/21 Status: Ordered traZODone 100 mg oral tablet TAKE ONE TO TWO TABLETS BY MOUTH AT BEDTIME NEEDED SZayra Morales Start Date: 05/11/20 Status: Ordered Tylenol Extra Strength 500 mg oral tablet 2 tablet = 1,000 mg, By Mouth, 3 times a day, # 30 tablet, 11 Refills, Maintenance, 03/24/21 21:00:00 EST, [facility], 188, cm, 03/22/21 14:17:00 EST, Height, 125.2, kg, 06/20/20 14:28:00 EST, Dry Weight Start Date: 03/24/21 Status: Ordered Vitamin D3 1000 intl units oral tablet 1 tablet, By Mouth, Daily, for 30 days, # 30 tablet, 11 Refills, Physician Stop 10/30/22 17:07:00 EDT, 11/04/21 17:07:00 EDT, [facility], 188, cm, 09/15/21 12:49:00 EDT, Height, [...] Team Personnel Name: Shoaib An RN Position: [facility] RN Supv Member Role: Primary Care Nurse Name: Vamshi Man MD Position: [facility] Primary Care Physician Member Role: PCP Address: Address: [address] [place] [address]- Name: Miki Rodriguez MD Position: [facility] Renal MD Member Role: Lifetime Consulting Physician Address: Address: [address] [facility] [place] [address]- Care Team Related Persons Name: BRANDON MTZ Address: home [address] [place] [address] Name: BRANDON BARKER Address: home [address] [place] [address] Name: ROSALINDA BERTRAND Address: home [address] [place] [address]
--- OUTSIDE RECORDS SUMMARY | 2023-10-11 08:17 | XMS_ITS | Continuity of Care Document ---
Author Organization [facility] Address [address] [place] [id number]- Care Team Providers Care Splitting Machine Feeder Name Role Phone Vamshi Man MD Primary Care Physician Encounter [facility] Date(s): 07/05/23 - 08/04/23 [facility]/[address] [id number]- Allergies, Adverse Reactions, Alerts Substance Reaction Severity Status penicillin 1 rash Resolved penicillins Active Other Food Allergy fresh peaches - itch y mouth, throat and lips swell Active Latex RASH Active 1rash per mother as child. Did take a penicillin for treatment of H pylori per pt w/o problem. Immunizations Given and Recorded Vaccine Date Status Refusal Reason SARS-CoV-2(COVID-19)mRNA-LNP vac([id number]) 01/30/23 Given influenza virus vaccine, inactivated 01/05/23 [...] influenza virus vaccine, inactivated 03/19/06 Give n [id number] 12y+ bivalent booster vax 02/16/22 Given pneumococcal 20-valent conjugate vaccine 02/16/22 Given Influenza Virus Vaccine (oldterm) 9 01/27/22 Recor ded Influenza Virus Vaccine (oldterm) 01/26/21 Recorde d SARS-CoV-2 mRNA ([id number]) vax 11/11/21 Given SARS-CoV-2 (COVID-19) mRNA BNT-162b2 [...] 13Result Comment: [11/27/2017] REceived at [facility] [place], [place]; ordered by Dr Michael Oliveira 14Location [...] 11 Refills, Maintenance, 02/08/23 10:21:00 EDT, Powder, [facility], replaces Flovent due to insurance coverage, 188, cm, 01/30/23 13:26:00 EDT, Height, 126, kg, 01/30/23 13:26:00 EDT,... Start Date: 02/08/23 Status: Ordered Aspirin Low Dose 81 mg oral delayed release tablet 1 tablet, By Mouth, Daily, # 90 tablet, 4 Refills, Maintenance, 03/01/23 17:49:00 EST, [facility], 188, cm, 01/30/23 13:26:00 EDT, Height, [...] 2 Refills, Maintenance, 04/27/22 23:43:00 EST, Cream, [facility], 1 application Topically 2 times a day,Instr:apply to penile rash, 188, cm, 04/27/22 13:44:00 EST, Heigh... Start Date: 04/27/22 Status: Ordered diazepam 10 mg oral tablet See Instructions, PRN, 1 tablet By Mouth 1 hr before MRI, # 1 tablet, Refills 2, Tot. Refills 2, Maintenance, as needed for anxiety, 01/30/23 15:02:00 EDT, Instructions Replace Required Details, Route to Pharmacy Electronically, [facility],... Start Date: 01/30/23 Status: Ordered diclofenac 1% topical gel = 2 Gm, Topically, 4 times a day, PRN for pain, (thai) not to exceed: 16 gm/day/joint lower limb8 gm/day/joint of upper limb 32 gm/day may interchange for cream, # 100 Gm, 11 Refills, Maintenance, 04/15/22 13:02:00 EST, Gel, [facility]... Start Date: 04/15/22 Status: Ordered docusate [...] 16 Gm, 11 Refills, Maintenance, 07/09/23 11:37:00EDT, [place], [facility], Partial fill upon patient request if the prescription is for a schedule II opioid drug., 2 sprays Nares, Both 2 times... Start Date: 07/09/23 Status: Ordered Freestyle Tatyana Fortuna Freestyle Tatyana Fortuna, See Instructions, # 1 each, Refills 0, [...] 11 Refills, Maintenance, 11/28/21 21:27:00 EDT, Solution, [facility], 188, cm, 11/22/21 16:37:00 EDT, Height, [...] Gm, 5 Refills, Maintenance, 12/22/21 7:28:00 EDT, [facility], same Rx was sent 11/11 w/ [...] 0 Refills, Maintenance, 01/12/22 7:27:00 EDT, Tablet, [facility], 188, cm, 12/26/21 14:06:00 EDT, Height, [...] tablet, 0 Refills, Maintenance, pain, 10/09/23 21:08:00 EDT,[facility], May partial fill., 0... Start Date: 10/09/23 Status: Ordered methadone 10 mg oral tablet See Instructions, By mouth. 2 tab in AM, 1.5 midday, 2 in evening;for pain. IDC10: G90.5 CRPS. 28 day supply. [facility]., # 154 tablet, 0 Refills, Maintenance, pain, 09/11/23 21:08:00 EDT,[facility], May partial fill., 0... Start Date: 09/11/23 Status: Ordered methadone 10 mg oral tablet See Instructions, By mouth. 2 tab in AM, 1.5 midday, 2 in evening;for pain. IDC10: G90.5 CRPS. 28 day supply. [facility]., # 154 tablet, 0 Refills, Maintenance, pain, 08/14/23 21:08:00 EDT,[facility], May partial fill., 0... Start Date: 08/14/23 [...] 5 Refills, Maintenance, 07/07/23 17:04:00 EDT, Solution, [facility], should still have a couple months of refills from last Rx sent in April but sending again... Start Date: 07/07/23 Status: Ordered Narcan 4 mg/0.1 mL nasal spray = 4 mg, Nares, Both, Once, may repeat every 2 to 3 minutes until patient responds, # 2 each, 1 Refills, Soft Stop, 02/16/22 23:38:00 EDT, [facility], 188, cm, 02/16/22 13:07:00 EDT, Height,122.63, kg, 11/22/21 16:37:00 EDT, Dry Weight Start Date: 02/16/22 Status: Ordered ondansetron 4 mg oral tablet TAKE 1 TABLET BY MOUTH EVERY 8 HOURS NEEDED FOR NAUSEA Idalia Sandoval Start Date: 08/20/18 Status: Ordered pantoprazole 40 mg oral delayed release tablet 0 Refills, Maintenance, 02/16/22 23:33:00 EDT Start Date: 02/16/22 Status: Ordered Pen [place], 31 G x 8 mm BD Ultra [...] 02/18/23 19:20:00 EST, Route to Pharmacy Electronically, [facility], 188, cm, 01/30/23 13:26:00 EDT, Height, [...] tablet, 5 Refills, Maintenance, 07/09/23 11:09:00 EDT, [facility], 30, 1 tablet By Mouth Daily, 188, cm, 07/05/23 11:09:00 EDT, Height, 126.09, kg, 04/26/23 13:06:00 EST, Dry Weight Start Date: 07/09/23 Status: Ordered tamsulosin 0.4 mg oral capsule 0.8 mg, 2, capsule, By Mouth, Daily, dose increase, # 180 capsule, Refills 11, Tot. Refills 11, Maintenance, 07/26/23 14:15:00 EDT, Route to Pharmacy Electronically, [facility], 188, cm, 07/26/23 13:30:00 EDT, Height, 121.81, kg, 07/26/23 13... Start Date: 07/26/23 Status: Ordered Test Strips See Instructions, # 100 each, Refills 5, Tot. Refills 5, Maintenance, Precision Ganga strips (for Freestyle Tatyana glucometer). Type 2 diabetes mellitus on insulin (E11, Z79.4). Test 2-4x/day if symptoms, or sensor concerns., 02/08/23 10:36:00 EDT, [place]... Start Date: 02/08/23 Status: Ordered Test Strips [...] Intramuscular, Every 14 days, IM or subcutaneous. [facility]., # 2 mL, 5 Refills, Maintenance, 05/04/23 13:34:00 EST, [facility], 188, cm, 04/26/23 13:06:00 EST, Height, [...] tablet, 11 Refills, Maintenance, 03/24/21 21:00:00 EST, [facility], 188, cm, 03/22/21 14:17:00 EST, Height, 125.2, kg, 06/20/20 14:28:00 EST, Dry Weight Start Date: 03/24/21 Status: Ordered Vitamin D3 1000 intl units oral tablet 1 tablet, By Mouth, Daily, # 90 tablet, 4 Refills, Maintenance, 04/01/23 22:28:00 EST, [facility], 188, cm, 01/30/23 13:26:00 EDT, Height, [...] ? chr regional pain syndrome 4s/p Modified Sundance procedure, repair of conjoined tendon of extensor [...] Team Personnel Name: Shoaib An RN Position: [facility] RN Supv Member Role: Primary Care Nurse Name: Donovan DE LOS SANTOS, Vamshi Oshea Position: [facility] Physician - Primary Care Member Role: PCP Address: Address: [address] Name: Luz Potter Position: [facility] Outreach Member Role: Lifetime Consulting Physician Name: Miki Rodriguez MD Position: [facility] Renal MD Member Role: Lifetime Consulting Physician Address: Address: [address] [facility] [address] [facility] [place], [address] Care Team Related Persons Name: BRANDON MTZ Address: home [address] [address] Name: BRANDON BARKER Address: home [address] [place] [address] Name: ROSALINDA BERTRAND
--- OUTSIDE RECORDS SUMMARY | 2023-10-11 08:17 | XMS_ITS | Continuity of Care Document ---
Author Organization [facility] Address [address] [place] [id number]- Care Team Providers Care Tree Deadener Name Role Phone Vamshi Man MD Primary Care Physician [phone] Encounter [facility] Date(s): 12/29/21 - 04/28/[address] [address]- Attending Physician: Sarah Arauz MD Admitting Physician: [...] and Recorded Vaccine Date Status Refusal Reason [id number] 12y+ bivalent booster vax 02/16/22 Given pneumococcal 20-valent conjugate vaccine 02/16/22 Given Influenza Virus Vaccine (oldterm) 1 01/27/22 Recor ded Influenza Virus Vaccine (oldterm) 01/26/21 Recorde d SARS-CoV-2 mRNA ([id number]) vax 11/11/21 Given SARS-CoV-2 (COVID-19) mRNA BNT-162b2 [...] Comment: [11/27/2017] REceived at [facility] [place], [place]; ordered by Dr Michael Oliveira 14Location [...] tablet, 5 Refills, Maintenance, 11/20/21 13:03:00 EDT, [facility], 188, cm, 11/11/21 12:46:00 EDT, Height, 125.2, kg, 06/20/20 14:28:00 EST, Dry Weight Start Date: 11/20/21 Status: Ordered atorvastatin 40 mg oral tablet 1 tablet, By Mouth, Daily, # 90 tablet, 1 Refills, Maintenance, 04/10/22 12:34:00 EST, [facility], 188, cm, 02/16/22 [...] 2 Refills, Maintenance, 04/27/22 23:43:00 EST, Cream, [facility], 1 application Topically 2 times a day,Instr:apply to penile rash, 188, cm, 04/27/22 13:44:00 EST, Heigh... Start Date: 04/27/22 Status: Ordered diclofenac 1% topical gel = 2 Gm, Topically, 4 times a day, PRN for pain, (indonesian) not to exceed: 16 gm/day/joint lower limb8 gm/day/joint of upper limb 32 gm/day may interchange for cream, # 100 Gm, 11 Refills, Maintenance, 04/15/22 13:02:00 EST, Gel, [facility]... Start Date: 04/15/22 Status: Ordered docusate [...] May cause drowsiness, do notdrive after taking [place], # 28 tablet, 0 Refills, Maintenance, 04/07/22 15:51:00 EST, [facility], 188, cm, 02/16/22 13:07:00 EDT, Heigh... Start [...] 11 Refills, Maintenance, 11/28/21 21:27:00 EDT, Solution, [facility], 188, cm, 11/22/21 16:37:00 EDT, Height, [...] mL, 5 Refills, Maintenance, 01/23/22 8:43:00 EDT, [facility], 188, cm, 12/26/21 14:06:00 EDT, Height, 122.63, kg, 11/22/21 16:37:00 EDT, Dry Weight Start Date: 01/23/22 Status: Ordered latanoprost 0.005% ophthalmic solution 0 Refills, Maintenance, 05/11/20 16:57:00 EST Start Date: 05/11/20 Status: Ordered lidocaine 5% topical ointment See Instructions, PRN Pain , Moderate, 1 APPLICATION TOPICALLY 3 TIMES A DAY, # 50 Gm, 5 Refills, Maintenance, 12/22/21 7:28:00 EDT, [facility], same Rx was sent 11/11 w/ [...] 0 Refills, Maintenance, 01/12/22 7:27:00 EDT, Tablet, [facility], 188, cm, 12/26/21 14:06:00 EDT, Height, 122.63, kg, 11/22/21 16:37:00 EDT, Dry Weight Start Date: 01/12/22 Status: Ordered losartan 100 mg oral tablet 1 tablet, By Mouth, Daily in AM, # 30 tablet, 5 Refills, 03/20/22 10:07:00 EST, [facility], 188, cm, 02/16/22 13:07:00 EDT, Height, 122.63, kg, 11/22/21 16:37:00 EDT, Dry Weight Start Date: 03/20/22 Status: Ordered LUBRIC TEARS CALE 0.4-0.3% [place] INSTILL 1 DROP FOUR TIMES DAILY EACH EYE Start Date: 05/11/20 Status: Ordered magnesium oxide 400 mg oral tablet 1 tablet = 400 mg, By Mouth, Daily, # 30 tablet, 11 Refills, Maintenance, 04/27/22 15:29:00 EST, Tablet, [facility], Partial fill upon patient request if the prescription is for a schedule II opioid drug., 188, cm, 04/27/22 13:44:00 EST, Hei... Start Date: 04/27/22 Status: Ordered meloxicam 15 mg oral tablet 1 tablet = 15 mg, By Mouth, Daily, Take with food PRN back pain [place], # 14 tablet, 0 Refills, Maintenance, 11/25/21 [...] tablet, 0 Refills, Maintenance, pain, 07/18/22 23:44:00 EDT,[facility], May partial fill., 07/18/22... Start Date: 07/18/22 Status: Ordered methadone 10 mg oral tablet See Instructions, By mouth. 2 tab in AM, 1.5 midday, 2 in evening;for pain. IDC10: G90.5 CRPS. 28 day supply. [facility]., # 154 tablet, 0 Refills, Maintenance, pain, 05/23/22 23:44:00 EST,[facility], May partial fill., 05/23/22... Start Date: 05/23/22 Status: Ordered methadone 10 mg oral tablet See Instructions, By mouth. 2 tab in AM, 1.5 midday, 2 in evening;for pain. IDC10: G90.5 CRPS. 28 day supply. [facility]., # 154 tablet, 0 Refills, Maintenance, pain, 06/20/22 23:45:00 EST,[facility], August partial fill., 06/20/22... Start [...] EDT Start Date: 02/16/22 Status: Ordered Pen [place], 31 G x 8 mm BD Ultra [...] mL, 11 Refills, Maintenance, 04/27/22 23:40:00 EST, [facility], 188, cm, 04/27/22 13:44:00 EST, Height, 122.63, kg, 11/22/21 16:37:00 EDT,... Start Date: 04/27/22 Status: Ordered Singulair 10 mg oral tablet 10 mg, 1, tablet, By Mouth, Daily, # 90 tablet, Refills 3, Tot. Refills 3, Maintenance, 03/30/20 21:31:00 EST, Route to Pharmacy Electronically, [facility], 185, cm, 02/25/20 10:29:00 EST, Height, 126.81, kg, 02/25/20 10:29:00 EST, Dry Weight Start Date: 03/30/20 Status: Ordered tamsulosin 0.4 mg oral capsule 0.4 mg, 1, capsule, By Mouth, Daily, Per urology, # 30 capsule, Refills 11, Tot. Refills 11, Maintenance, 02/16/22 23:29:00 EDT, Route to Pharmacy Electronically, [facility], 188, cm, 02/16/22 13:07:00 EDT, Height, [...] Intramuscular, Every 14 days, IM or subcutaneous. [facility]., # 2 mL, 5 Refills, Maintenance, 02/05/22 22:55:00 EDT, [facility], 188, cm, 12/26/21 14:06:00 EDT, Height, 122.63, kg, 11/22/21 16:37:00 EDT, Dry Weight Start Date: 02/05/22 Status: Ordered tiZANidine 4 mg oral tablet 4 mg, 1, tablet, By Mouth, 3 times a day, PRN, # 90 tablet, Refills 11, Tot. Refills 11, Maintenance, as needed for muscle spasm, 08/12/21 11:09:00 EDT, Route to Pharmacy Electronically, [facility], 188, cm, 07/27/21 8:34:00 EDT, Height, 125... Start Date: 08/12/21 Status: Ordered traZODone 100 mg oral tablet TAKE ONE TO TWO TABLETS BY MOUTH AT BEDTIME NEEDED SZayra Morales Start Date: 05/11/20 Status: Ordered Tylenol Extra Strength 500 mg oral tablet 2 tablet = 1,000 mg, By Mouth, 3 times a day, # 30 tablet, 11 Refills, Maintenance, 03/24/21 21:00:00 EST, [facility], 188, cm, 03/22/21 14:17:00 EST, Height, 125.2, kg, 06/20/20 14:28:00 EST, Dry Weight Start Date: 03/24/21 Status: Ordered Vitamin D3 1000 intl units oral tablet 1 tablet, By Mouth, Daily, for 30 days, # 30 tablet, 11 Refills, Physician Stop 10/30/22 17:07:00 EDT, 11/04/21 17:07:00 EDT, [facility], 188, cm, 09/15/21 12:49:00 EDT, Height, [...] Team Personnel Name: Shoaib An RN Position: [facility] RN Supv Member Role: Primary Care Nurse Name: Vamshi Man MD Position: [facility] Primary Care Physician Member Role: PCP Address: Address: [address] [place] [address]- Name: Miki Rodriguez MD Position: [facility] Renal MD Member Role: Lifetime Consulting Physician Address: Address: [address] [facility] [address] [facility] [address] Care Team Related Persons Name: BRANDON MTZ Address: home [address] [facility] [address] [address] [place] [address] Name: BRANDON BARKER Address: home [address] [place] [address] Name: ROSALINDA BERTRAND Address: home [address] [place] [address]
--- OUTSIDE RECORDS SUMMARY | 2023-10-11 08:17 | XMS_ITS | Continuity of Care Document ---
Author Organization [facility] Address [address] [place] [address]- Care Team Providers Care Rotary Shear Worker Helper Name Role Phone Donovan DE LOS SANTOS, Vamshi Oshea Primary Care Physician [phone] Encounter [facility] Date(s): 05/02/23 - 07/01/23 [facility] [address] [place] [address]- Attending Physician: Joseph Cantor MD Referring Physician: Cheng Rea DPM Allergies, Adverse Reactions, Alerts Substance Reaction Severity Status penicillin 1 rash Resolved penicillins Active Latex RASH Active Other Food Allergy fresh peaches - itch y mouth, throat and lips swell Active 1rash per mother as child. Did take a penicillin for treatment of H pylori per pt w/o problem. Immunizations Given and Recorded Vaccine Date Status Refusal Reason SARS-CoV-2(COVID-19)mRNA-LNP vac([id number]) 01/30/23 Given influenza virus vaccine, inactivated 01/05/23 [...] influenza virus vaccine, inactivated 03/19/06 Give n [id number] 12y+ bivalent booster vax 02/16/22 Given pneumococcal 20-valent conjugate vaccine 02/16/22 Given Influenza Virus Vaccine (oldterm) 9 01/27/22 Recor ded Influenza Virus Vaccine (oldterm) 01/26/21 Recorde d SARS-CoV-2 mRNA ([id number]) vax 11/11/21 Given SARS-CoV-2 (COVID-19) mRNA BNT-162b2 [...] Bertrand 13Result Comment: [11/27/2017] REceived at [facility] [place]; ordered by Dr Michael Oliveira 14Location [...] 11 Refills, Maintenance, 02/08/23 10:21:00 EDT, Powder, [facility], replaces Flovent due to insurance coverage, 188, cm, 01/30/23 13:26:00 EDT, Height, 126, kg, 01/30/23 13:26:00 EDT,... Start Date: 02/08/23 Status: Ordered Aspirin Low Dose 81 mg oral delayed release tablet 1 tablet, By Mouth, Daily, # 90 tablet, 4 Refills, Maintenance, 03/01/23 17:49:00 EST, [facility], 188, cm, 01/30/23 13:26:00 EDT, Height, 126, kg, 01/30/23 13:26:00 EDT, Dry Weight Start Date: 03/01/23 Status: Ordered atorvastatin 40 mg oral tablet See Instructions, TAKE 1 TABLET BY MOUTH EVERY DAY, # 90 tablet, 0 Refills, Maintenance, 05/01/23 21:18:00 EST, [facility], 188, cm, 04/26/23 13:06:00 [...] 2 Refills, Maintenance, 04/27/22 23:43:00 EST, Cream, [facility], 1 application Topically 2 times a day,Instr:apply to penile rash, 188, cm, 04/27/22 13:44:00 EST, Heigh... Start Date: 04/27/22 Status: Ordered diazepam 10 mg oral tablet See Instructions, PRN, 1 tablet By Mouth 1 hr before MRI, # 1 tablet, Refills 2, Tot. Refills 2, Maintenance, as needed for anxiety, 01/30/23 15:02:00 EDT, Instructions Replace Required Details, Route to Pharmacy Electronically, [facility],... Start Date: 01/30/23 Status: Ordered diclofenac 1% topical gel = 2 Gm, Topically, 4 times a day, PRN for pain, (mexican) not to exceed: 16 gm/day/joint lower limb8 gm/day/joint of upper limb 32 gm/day may interchange for cream, # 100 Gm, 11 Refills, Maintenance, 04/15/22 13:02:00 EST, Gel, [facility]... Start Date: 04/15/22 Status: Ordered docusate [...] ONCE A DAY WITH MEALS Start Date: 1/26/21 Status: Ordered Entresto 49 mg-51 mg oral [...] Start Date: 05/11/20 Status: Ordered Freestyle Tatyana Corona Freestyle Tatyana Corona, See Instructions, # 1 each, Refills 0, [...] 11 Refills, Maintenance, 11/28/21 21:27:00 EDT, Solution, [facility], 188, cm, 11/22/21 16:37:00 EDT, Height, [...] Gm, 5 Refills, Maintenance, 12/22/21 7:28:00 EDT, [facility], same Rx was sent 11/11 w/ [...] 0 Refills, Maintenance, 01/12/22 7:27:00 EDT, Tablet, [facility], 188, cm, 12/26/21 14:06:00 EDT, Height, 122.63, kg, 11/22/21 16:37:00 EDT, Dry Weight Start Date: 01/12/22 Status: Ordered LUBRIC TEARS CALE 0.4-0.3% Milliliters INSTILL 1 DROP FOUR TIMES DAILY EACH EYE Start Date: 05/11/20 Status: Ordered magnesium oxide 400 mg oral tablet 1 tablet = 400 mg, By Mouth, Daily, # 90 tablet, 3 Refills, Maintenance, 05/07/23 16:31:00 EST, Tablet, [facility], 188, cm, 04/26/23 13:06:00 EST, Height, [...] tablet, 0 Refills, Maintenance, pain, 06/19/23 23:14:00 EST,[facility], May partial fill., 06/19/23... Start Date: 06/19/23 Status: Ordered methadone 10 mg oral tablet See Instructions, By mouth. 2 tab in AM, 1.5 midday, 2 in evening;for pain. IDC10: G90.5 CRPS. 28 day supply. [facility]., # 154 tablet, 0 Refills, Maintenance, pain, 05/22/23 23:14:00 EST,[facility], May partial fill., 05/22/23... Start Date: 05/22/23 Status: Ordered methadone 10 mg oral tablet See Instructions, By mouth. 2 tab in AM, 1.5 midday, 2 in evening;for pain. IDC10: G90.5 CRPS. 28 day supply. [facility]., # 154 tablet, 0 Refills, Maintenance, pain, 07/17/23 23:14:00 EDT,[facility], August partial fill., 07/17/23... Start Date: 07/17/23 Status: Ordered methadone 10 mg oral tablet See Instructions, By mouth. 2 tab in AM, 1.5 midday, 2 in evening;for pain. IDC10: G90.5 CRPS. 28 day supply. [facility]., # 154 tablet, 0 Refills, Maintenance, pain, 04/24/23 22:44:00 EST,[facility], August partial fill., 188, cm,... Start Date: 04/24/23 Status: Ordered Metoclopramide = 10 mg, By Mouth, 3 times a day before meals and bedtime, 0 Refills, Maintenance, 08/20/18 13:55:26 EDT Start Date: 08/20/18 Status: Ordered Mounjaro 7.5 mg/0.5 mL subcutaneous solution = 7.5 mg, Subcutaneous Injection, Every week, rotate injection sites, # 4 each, 5 Refills, Maintenance, 04/27/23 0:18:00 EST, Solution, [facility], please d/c all prior Rx/refills for semaglutide, liraglutide, dulaglutide, 188, cm, 04/26/23... Start Date: 04/27/23 Status: Ordered Narcan 4 mg/0.1 mL nasal spray = 4 mg, Nares, Both, Once, may repeat every 2 to 3 minutes until patient responds, # 2 each, 1 Refills, Soft Stop, 02/16/22 23:38:00 EDT, [facility], 188, cm, 02/16/22 13:07:00 EDT, Height,122.63, kg, 11/22/21 16:37:00 EDT, Dry Weight Start Date: 02/16/22 Status: Ordered ondansetron 4 mg oral tablet TAKE 1 TABLET BY MOUTH EVERY 8 HOURS NEEDED FOR NAUSEA Idalia Sandoval Start Date: 08/20/18 Status: Ordered pantoprazole 40 mg oral delayed release tablet 0 Refills, Maintenance, 02/16/22 23:33:00 EDT Start Date: 02/16/22 Status: Ordered Pen Condon, 31 G x 8 mm BD Ultra [...] 02/18/23 19:20:00 EST, Route to Pharmacy Electronically, [facility], 188, cm, 01/30/23 13:26:00 EDT, Height, [...] tablet, 5 Refills, Maintenance, 12/19/22 20:41:00 EDT, [facility], 30, TAKE 1 TABLET BY MOUTH EVERY DAY, 188, cm, 10/19/22 13:16:00 EDT, Height, 122.63, kg, 11/22/21 16:37:00 EDT, Dry Weight Start Date: 12/19/22 Status: Ordered tamsulosin 0.4 mg oral capsule 0.8 mg, 2, capsule, By Mouth, Daily, dose increase, # 60 capsule, Refills 11, Tot. Refills 11, Maintenance, 07/27/22 11:57:00 EDT, Route to Pharmacy Electronically, [facility], 188, cm, 07/18/22 14:01:00 EDT, Height, 122.63, kg, 11/22/21 16:... Start Date: 07/27/22 Status: Ordered Test Strips See Instructions, # 100 each, Refills 5, Tot. Refills 5, Maintenance, Precision Ganga strips (for Freestyle Tatyana glucometer). Type 2 diabetes mellitus on insulin (E11, Z79.4). Test 2-4x/day if symptoms, or sensor concerns., 02/08/23 10:36:00 EDT, Airport... Start Date: 02/08/23 Status: Ordered Test Strips [...] Intramuscular, Every 14 days, IM or subcutaneous. [facility]., # 2 mL, 5 Refills, Maintenance, 05/04/23 13:34:00 EST, [facility], 188, cm, 04/26/23 13:06:00 EST, Height, 126.09, kg, 04/26/23 13:06:00 EST, Dry Weight Start Date: 05/04/23 Status: Ordered tiZANidine 4 mg oral tablet 4 mg, 1, tablet, By Mouth, 3 times a day, PRN, # 90 tablet, Refills 11, Tot. Refills 11, Maintenance, as needed for muscle spasm, 08/18/22 8:03:00 EDT, Route to Pharmacy Electronically, [facility], 188, cm, 07/18/22 14:01:00 EDT, Height, 122... Start Date: 08/18/22 Status: Ordered Della Hodges SoloStar 300 units/mL subcutaneous solution = 60 units, Subcutaneous Injection, Daily, # 12 mL, 11 Refills, Maintenance, 02/08/23 10:15:00 EDT,Solution, [facility], replaces Lantus due to insurance coverage, 188, cm, 01/30/23 13:26:00 EDT, Height, 126, kg, 01/30/23 13:26:00 EDT, Dry... Start Date: 02/08/23 Status: Ordered Tylenol Extra Strength 500 mg oral tablet 2 tablet = 1,000 mg, By Mouth, 3 times a day, # 30 tablet, 11 Refills, Maintenance, 03/24/21 21:00:00 EST, [facility], 188, cm, 03/22/21 14:17:00 EST, Height, 125.2, kg, 06/20/20 14:28:00 EST, Dry Weight Start Date: 03/24/21 Status: Ordered Vitamin D3 1000 intl units oral tablet 1 tablet, By Mouth, Daily, # 90 tablet, 4 Refills, Maintenance, 04/01/23 22:28:00 EST, [facility], 188, cm, 01/30/23 13:26:00 EDT, Height, [...] Care Nurse Name: Vamshi Man MD Position: [facility] Physician - Primary Care Member Role: PCP Address: Address: [address] Name: Luz Potter Position: [facility] Outreach Member Role: Lifetime Consulting Physician Name: Miki Rodriguez MD Position: [facility] Renal MD Member Role: Lifetime Consulting Physician Address: Address: [address] [facility] [address] [facility] [address] Care Team Related Persons Name: BRANDON MTZ Address: home [address] [place] [address] Name: BRANDON BARKER Address: home [address] [place] [address] Name: ROSALINDA BERTRAND
--- OUTSIDE RECORDS SUMMARY | 2023-10-11 08:17 | XMS_ITS | Continuity of Care Document ---
Author Organization [facility] Address [address] [place] [address]- Care Team Providers Care Plant Nursery Worker Name Role Phone Vamshi Man MD Primary Care Physician [phone] Encounter [facility] Date(s): 05/03/23 - 06/02/23 [facility]/[place] [address]- [place] Allergies, Adverse Reactions, Alerts Substance Reaction Severity Status penicillin 1 rash Resolved penicillins Active Latex RASH Active Other Food Allergy fresh peaches - itch y mouth, throat and lips swell Active 1rash per mother as child. Did take a penicillin for treatment of H pylori per pt w/o problem. Immunizations Given and Recorded Vaccine Date Status Refusal Reason SARS-CoV-2(COVID-19)mRNA-LNP vac([id number]) 01/30/23 Given influenza virus vaccine, inactivated 01/05/23 [...] influenza virus vaccine, inactivated 03/19/06 Give n [id number] 12y+ bivalent booster vax 02/16/22 Given pneumococcal 20-valent conjugate vaccine 02/16/22 Given Influenza Virus Vaccine (oldterm) 9 01/27/22 Recor ded Influenza Virus Vaccine (oldterm) 01/26/21 Recorde d SARS-CoV-2 mRNA ([id number]) vax 11/11/21 Given SARS-CoV-2 (COVID-19) mRNA BNT-162b2 [...] Elissa Bertrand 13Result Comment: [11/27/2017] REceived at [facility] [place], [place]; ordered by Dr Michael Oliveira 14Location [...] 11 Refills, Maintenance, 02/08/23 10:21:00 EDT, Powder, [facility], replaces Flovent due to insurance coverage, 188, cm, 01/30/23 13:26:00 EDT, Height, 126, kg, 01/30/23 13:26:00 EDT,... Start Date: 02/08/23 Status: Ordered Aspirin Low Dose 81 mg oral delayed release tablet 1 tablet, By Mouth, Daily, # 90 tablet, 4 Refills, Maintenance, 03/01/23 17:49:00 EST, [facility], 188, cm, 01/30/23 13:26:00 EDT, Height, 126, kg, 01/30/23 13:26:00 EDT, Dry Weight Start Date: 03/01/23 Status: Ordered atorvastatin 40 mg oral tablet See Instructions, TAKE 1 TABLET BY MOUTH EVERY DAY, # 90 tablet, 0 Refills, Maintenance, 05/01/23 21:18:00 EST, [facility], 188, cm, 04/26/23 13:06:00 EST, Height, 126.09, kg, 04/26/23 13:06:00 EST, Dry Weight Start Date: 05/01/23 Status: Ordered AutoCPAP 9-18 with heated humidification AutoCPAP 9-18 with heated humidification, See Instructions, # 1 each, Refills 0, Tot. Refills 0, Maintenance, use overnight and naps from [facility], 11/04/18 12:28:22 EDT, Compound Start Date: 11/04/18 [...] 2 Refills, Maintenance, 04/27/22 23:43:00 EST, Cream, [facility], 1 application Topically 2 times a day,Instr:apply to penile rash, 188, cm, 04/27/22 13:44:00 EST, Heigh... Start Date: 04/27/22 Status: Ordered diazepam 10 mg oral tablet See Instructions, PRN, 1 tablet By Mouth 1 hr before MRI, # 1 tablet, Refills 2, Tot. Refills 2, Maintenance, as needed for anxiety, 01/30/23 15:02:00 EDT, Instructions Replace Required Details, Route to Pharmacy Electronically, [facility],... Start Date: 01/30/23 Status: Ordered diclofenac 1% topical gel = 2 Gm, Topically, 4 times a day, PRN for pain, (kiswahili) not to exceed: 16 gm/day/joint lower limb8 gm/day/joint of upper limb 32 gm/day may interchange for cream, # 100 Gm, 11 Refills, Maintenance, 04/15/22 13:02:00 EST, Gel, [facility]... Start Date: 04/15/22 Status: Ordered docusate [...] Start Date: 05/11/20 Status: Ordered Freestyle Tatyana [place] Freestyle Tatyana [place], See Instructions, # 1 each, Refills 0, [...] 11 Refills, Maintenance, 11/28/21 21:27:00 EDT, Solution, [facility], 188, cm, 11/22/21 16:37:00 EDT, Height, [...] Gm, 5 Refills, Maintenance, 12/22/21 7:28:00 EDT, [facility], same Rx was sent 11/11 w/ [...] 0 Refills, Maintenance, 01/12/22 7:27:00 EDT, Tablet, [facility], 188, cm, 12/26/21 14:06:00 EDT, Height, 122.63, kg, 11/22/21 16:37:00 EDT, Dry Weight Start Date: 01/12/22 Status: Ordered LUBRIC TEARS CALE 0.4-0.3% Milliliters INSTILL 1 DROP FOUR TIMES DAILY EACH EYE Start Date: 05/11/20 Status: Ordered magnesium oxide 400 mg oral tablet 1 tablet = 400 mg, By Mouth, Daily, # 90 tablet, 3 Refills, Maintenance, 05/07/23 16:31:00 EST, Tablet, [facility], 188, cm, 04/26/23 13:06:00 EST, Height, 126.09, kg, 04/26/23 13:06:00 EST, Dry Weight Start Date: 05/07/23 Status: Ordered meloxicam 15 mg oral tablet 1 tablet = 15 mg, By Mouth, Daily, Take with food PRN back pain Georgian, # 14 tablet, 0 Refills, Maintenance, 11/25/21 13:26:00 EDT, [facility], Partial fill upon patient request if [...] tablet, 0 Refills, Maintenance, pain, 06/19/23 23:14:00 EST,[facility], May partial fill., 06/19/23... Start Date: 06/19/23 Status: Ordered methadone 10 mg oral tablet See Instructions, By mouth. 2 tab in AM, 1.5 midday, 2 in evening;for pain. IDC10: G90.5 CRPS. 28 day supply. [facility]., # 154 tablet, 0 Refills, Maintenance, pain, 05/22/23 23:14:00 EST,[facility], May partial fill., 05/22/23... Start Date: 05/22/23 Status: Ordered methadone 10 mg oral tablet See Instructions, By mouth. 2 tab in AM, 1.5 midday, 2 in evening;for pain. IDC10: G90.5 CRPS. 28 day supply. [facility]., # 154 tablet, 0 Refills, Maintenance, pain, 07/17/23 23:14:00 EDT,[facility], August partial fill., 07/17/23... Start Date: 07/17/23 Status: Ordered methadone 10 mg oral tablet See Instructions, By mouth. 2 tab in AM, 1.5 midday, 2 in evening;for pain. IDC10: G90.5 CRPS. 28 day supply. [facility]., # 154 tablet, 0 Refills, Maintenance, pain, 04/24/23 22:44:00 EST,[facility], August partial fill., 188, cm,... Start Date: 04/24/23 Status: Ordered Metoclopramide = 10 mg, By Mouth, 3 times a day before meals and bedtime, 0 Refills, Maintenance, 08/20/18 13:55:26 EDT Start Date: 08/20/18 Status: Ordered Mounjaro 7.5 mg/0.5 mL subcutaneous solution = 7.5 mg, Subcutaneous Injection, Every week, rotate injection sites, # 4 each, 5 Refills, Maintenance, 04/27/23 0:18:00 EST, Solution, [facility], please d/c all prior Rx/refills for [...] EDT Start Date: 02/16/22 Status: Ordered Pen Hailey, 31 G x 8 mm BD Ultra [...] 02/18/23 19:20:00 EST, Route to Pharmacy Electronically, [facility], 188, cm, 01/30/23 13:26:00 EDT, Height, [...] tablet, 5 Refills, Maintenance, 12/19/22 20:41:00 EDT, [facility], 30, TAKE 1 TABLET BY MOUTH EVERY DAY, 188, cm, 10/19/22 13:16:00 EDT, Height, 122.63, kg, 11/22/21 16:37:00 EDT, Dry Weight Start Date: 12/19/22 Status: Ordered tamsulosin 0.4 mg oral capsule 0.8 mg, 2, capsule, By Mouth, Daily, dose increase, # 60 capsule, Refills 11, Tot. Refills 11, Maintenance, 07/27/22 11:57:00 EDT, Route to Pharmacy Electronically, [facility], 188, cm, 07/18/22 14:01:00 EDT, Height, 122.63, kg, 11/22/21 16:... Start Date: 07/27/22 Status: Ordered Test Strips See Instructions, # 100 each, Refills 5, Tot. Refills 5, Maintenance, Precision Ganga strips (for Freestyle Tatyana glucometer). Type 2 diabetes mellitus on insulin (E11, Z79.4). Test 2-4x/day if symptoms, or sensor concerns., 02/08/23 10:36:00 EDT, [facility]... Start Date: 02/08/23 Status: Ordered Test Strips [...] Intramuscular, Every 14 days, IM or subcutaneous. [facility]., # 2 mL, 5 Refills, Maintenance, 05/04/23 13:34:00 EST, [facility], 188, cm, 04/26/23 13:06:00 EST, Height, 126.09, kg, 04/26/23 13:06:00 EST, Dry Weight Start Date: 05/04/23 Status: Ordered tiZANidine 4 mg oral tablet 4 mg, 1, tablet, By Mouth, 3 times a day, PRN, # 90 tablet, Refills 11, Tot. Refills 11, Maintenance, as needed for muscle spasm, 08/18/22 8:03:00 EDT, Route to Pharmacy Electronically, [facility], 188, cm, 07/18/22 14:01:00 EDT, Height, 122... Start Date: 08/18/22 Status: Ordered Della Hodges SoloStar 300 units/mL subcutaneous solution = 60 units, Subcutaneous Injection, Daily, # 12 mL, 11 Refills, Maintenance, 02/08/23 10:15:00 EDT,Solution, [facility], replaces Lantus due to insurance coverage, 188, cm, 01/30/23 13:26:00 EDT, Height, 126, kg, 01/30/23 13:26:00 EDT, Dry... Start Date: 02/08/23 Status: Ordered Tylenol Extra Strength 500 mg oral tablet 2 tablet = 1,000 mg, By Mouth, 3 times a day, # 30 tablet, 11 Refills, Maintenance, 03/24/21 21:00:00 EST, [facility], 188, cm, 03/22/21 14:17:00 EST, Height, 125.2, kg, 06/20/20 14:28:00 EST, Dry Weight Start Date: 03/24/21 Status: Ordered Vitamin D3 1000 intl units oral tablet 1 tablet, By Mouth, Daily, # 90 tablet, 4 Refills, Maintenance, 04/01/23 22:28:00 EST, [facility], 188, cm, 01/30/23 13:26:00 EDT, Height, [...] ? chr regional pain syndrome 4s/p Modified [place] procedure, repair of conjoined tendon of extensor [...] Team Personnel Name: Shoaib An RN Position: [facility] RN Supv Member Role: Primary Care Nurse Name: Vamshi Man MD Position: [facility] Physician - Primary Care Member Role: PCP Address: Address: [address] [place] [address]- Name: Luz Potter Position: [facility] Outreach Member Role: Lifetime Consulting Physician Name: Miki Rodriguez MD Position: [facility] Renal MD Member Role: Lifetime Consulting Physician Address: Address: [address] [facility] [address] [facility] [place] [address]- Care Team Related Persons Name: BRANDON MTZ Address: home [address] [place] [address] Name: BRANDON BARKER Address: home [address] [place] [address] Name: ROSALIDNA BERTRAND Address: home [address] [place] [address]
--- OUTSIDE RECORDS SUMMARY | 2023-10-11 08:17 | XMS_ITS | Continuity of Care Document ---
Author Organization [facility] Address [address] [place] [address]- Care Team Providers Care Network Operations Technician Name Role Phone Vamshi Man MD Primary Care Physician [phone] Encounter [facility] Date(s): 05/17/20 - 06/16/20 [facility]/[address] [address]- Allergies, Adverse Reactions, Alerts Substance Reaction Severity [...] Comment: [11/27/2017] REceived at [facility] [place], [place]; ordered by Dr Michael Oliveira 12Location [...] 03/30/20 21:31:00 EST, Route to Pharmacy Electronically, [facility] original sent [facility]. remaining refills sent., [...] capsule, 3 Refills, Maintenance, 03/30/20 21:36:00 EST, [facility], 185, cm, 02/25/20 10:29:00 EST, Height, 126.81, kg, 02/25/20 10:29:00 EST, Dry Weight Start Date: 03/30/20 Status: Ordered clotrimazole 1% topical cream 1 application, Topically, 2 times a day, apply to penile rash, # 30 Gm, 2 Refills, Maintenance, 01/07/20 14:49:00 EDT, Cream, [facility], 1 application Topically 2 times a day,Instr:apply to penile rash, 185, cm, 01/07/20 13:55:00 EDT, [facility]... Start Date: 01/07/20 Status: Ordered Cozaar 100 mg oral tablet 1 tablet = 100 mg, By Mouth, Daily in AM, # 30 tablet, 5 Refills, Maintenance, 03/15/20 17:08:00 EST, Tablet, [facility], duplicate rx. original sent 09/16/19. remaining refills sent., 185, cm, 02/25/20 10:29:00 EST, Height, 126.81, kg, ... Start Date: 03/15/20 Status: Ordered diclofenac 1% topical gel = 2 Gm, Topically, 4 times a day, PRN for pain, (brazilian) not to exceed: 16 gm/day/joint lower limb8 gm/day/joint of upper limb 32 gm/day, # 100 Gm, 1 Refills, Maintenance, 10/27/19 10:15:00 EDT, Gel, [facility], 185, cm, 06/24/19 13:00:... Start Date: [...] 11 Refills, Maintenance, 02/15/20 21:05:00 EST, Solution, [facility], 185, cm, 01/07/20 13:55:00 EDT, Height, [...] mL, 2 Refills, Maintenance, 05/06/20 9:55:00 EST, [facility], 185, cm, 02/25/20 10:29:00 EST, Height, [...] Gm, 5 Refills, Maintenance, 10/28/19 20:11:00 EDT, [facility], 1 application Topically 3 times a day,Instr:august interchang... Start Date: 10/28/19 Status: Ordered Lipitor 40 mg oral tablet 1 tablet = 40 mg, By Mouth, Daily, # 90 tablet, 3 Refills, Maintenance, 03/30/20 21:30:00 EST, [facility], duplicate rx. original sent 11/04/19. remaining [...] 11 Refills, Maintenance, 06/24/19 15:02:00 EDT, Tablet, [facility], 185, cm, 06/24/19 13:00:00 EDT, Height, 127.72, kg, 05/06/19 13:41:00 EST, Dry We... Start Date: 06/24/19 Status: Ordered methadone 10 mg oral tablet See Instructions, By mouth. 2 tab in AM, 1.5 midday, 2 in evening;for pain. IDC10: G90.5 CRPS. 28 day supply. [facility]., # 154 tablet, 0 Refills, Maintenance, pain, 03/30/20 23:51:00 EST,[facility], May partial fill., 03/30/20... Start Date: 03/30/20 Status: Ordered methadone 10 mg oral tablet See Instructions, By mouth. 2 tab in AM, 1.5 midday, 2 in evening;for pain. IDC10: G90.5 CRPS. 28 day supply. [facility]., # 154 tablet, 0 Refills, Maintenance, pain, 05/24/20 16:29:00 EST,[facility], May partial fill., 05/24/20... Start Date: [...] Start Date: 05/15/18 Status: Ordered nystatin-triamcinolone topical 619266 u/gm-0.1% ointment 1 applicator, Topically, 3 times a day, to foreskin area FOR 3 DAYS then switch to other antifungal, # 15 Gm, 1 Refills, Maintenance, 01/07/20 14:48:00 EDT, [facility], 1 applicator Topically 3 [...] EDT Start Date: 08/20/18 Status: Ordered Pen [place], 31 G x 8 mm BD Ultra [...] 03/30/20 21:31:00 EST, Route to Pharmacy Electronically, [facility], 185, cm, 02/25/20 10:29:00 EST, Height, [...] solution 0.75 mL, Intramuscular, Every 14 days, [facility], # 5 mL, 5 Refills, Maintenance, 01/11/20 21:30:00 EDT, [facility], 185, cm, 01/07/20 13:55:00 EDT, Height, 127.72, kg, 05/06/19 13:41:00 EST, Dry Weight Start Date: 01/11/20 Status: Ordered tiZANidine 4 mg oral tablet 4 mg, 1, tablet, By Mouth, 3 times a day, PRN, # 90 tablet, Refills 11, Tot. Refills 11, Maintenance, as needed for muscle spasm, 05/11/20 18:47:00 EST, Route to Pharmacy Electronically, [facility], 185, cm, 02/25/20 10:29:00 EST, Height, [...]
--- OUTSIDE RECORDS SUMMARY | 2023-10-11 08:17 | XMS_ITS | Continuity of Care Document ---
Author Organization [facility] Address Unknown Care Team Providers Care Automation Analyst Name Role Phone Vamshi Man MD Primary Care Physician Encounter [facility] Date(s): 04/21/21 - 06/04/21 [facility] Attending Physician: Not on Staff, Attending [...] Elissa Bertrand 12Result Comment: [11/27/2017] REceived at [facility] at [place], [place]; ordered by Dr Michael Oliveira 13Location [...] tablet, 5 Refills, Maintenance, 05/14/21 20:06:00 EST, [facility], 188, cm, 03/22/21 14:17:00 EST, Height, 125.2, kg, 06/20/20 14:28:00 EST, Dry Weight Start Date: 05/14/21 Status: Ordered atorvastatin 40 mg oral tablet 1 tablet, By Mouth, Daily, # 90 tablet, 1 Refills, [facility], 188, cm, 03/22/21 14:17:00EST, Height, 125.2, [...] 2 Refills, Maintenance, 01/07/20 14:49:00 EDT, Cream, [facility], 1 application Topically 2 times a day,Instr:apply to penile rash, 185, cm, 01/07/20 13:55:00 EDT, Francheska... Start Date: 01/07/20 Status: Ordered Cozaar 100 mg oral tablet 1 tablet = 100 mg, By Mouth, Daily in AM, # 30 tablet, 11 Refills, Maintenance, 09/22/20 9:41:00 EDT, Tablet, [facility], duplicate rx. original sent 09/16/19. remaining [...] 06/25/20 15:39:00 EST, Route to Pharmacy Electronically, [facility], Partial f... Start Date: 06/25/20 Status: Ordered diclofenac 1% topical gel = 2 Gm, Topically, 4 times a day, PRN for pain, (danish) not to exceed: 16 gm/day/joint lower limb8 gm/day/joint of upper limb 32 gm/day may interchange for cream, # 100 Gm, 5 Refills, Maintenance,07/08/20 15:35:00 EDT, Gel, [facility] Start Date: 07/08/20 Status: Ordered docusate [...] mL, 11 Refills, Maintenance, 01/14/21 18:16:00 EDT, [facility], 188, cm, 12/22/20 9:45:00 EDT, Height, 125.2, kg, 06/20/20 14:28:00EST, Dry Weight Start Date: 01/14/21 Status: Ordered latanoprost 0.005% ophthalmic solution 0 Refills, Maintenance, 05/11/20 16:57:00 EST Start Date: 05/11/20 Status: Ordered lidocaine 5% topical ointment See Instructions, 1 APPLICATION TOPICALLY 3 TIMES A DAY, # 70.88 Gm, 4 Refills, Acute, [facility], 14, 1 APPLICATION TOPICALLY 3 TIMES A DAY, 188, cm, 09/22/20 8:33:00 EDT, Height, 125.2, kg, 06/20/20 14:28:00 EST, Dry Weight Start Date: 11/08/20 Status: Ordered LORazepam 1 mg oral tablet See Instructions, PRN for anxiety, 2 tablets By Mouth 1 hours prior to MRI, # 2 tablet, 1 Refills, Maintenance, 05/25/21 10:06:00 EST, Tablet, [facility], 188, cm, 05/25/21 9:26:00 EST, Height, [...] 3 Refills, Maintenance, 07/08/20 15:40:00 EDT, Tablet, [facility], Duplicate rx-Original rx sent06/22/20. Resent., 188, cm, 07/08/20 13:42:00 EDT, He... Start Date: 07/08/20 Status: Ordered methadone 10 mg oral tablet See Instructions, By mouth. 2 tab in AM, 1.5 midday, 2 in evening;for pain. IDC10: G90.5 CRPS. 28 day supply. [facility]., # 154 tablet, 0 Refills, Maintenance, pain, 05/24/21 22:11:00 EST,[facility], May partial fill., 05/24/21... Start Date: 05/24/21 Status: Ordered methadone 10 mg oral tablet See Instructions, By mouth. 2 tab in AM, 1.5 midday, 2 in evening;for pain. IDC10: G90.5 CRPS. 28 day supply. [facility]., # 154 tablet, 0 Refills, Maintenance, pain, 06/21/21 22:11:00 EST,[facility], May partial fill., 06/21/21... Start Date: 06/21/21 Status: Ordered Metoclopramide = 10 mg, By Mouth, 3 times a day before meals and bedtime, 0 Refills, Maintenance, 08/20/18 13:55:26 EDT Start Date: 08/20/18 Status: Ordered multivitamin Multiple Vitamins oral tablet 1 tablet, By Mouth, Daily, B complex multivitamin, # 30 tablet, 11 Refills, Maintenance, 12/22/20 10:52:00 EDT, [facility], Partial fill upon patient request if the prescription is for a schedule II opioid drug., 1 tablet By Mouth Daily,Inst... Start Date: 12/22/20 Status: Ordered Narcan 4 mg/0.1 mL nasal spray = 4 mg, Nares, Both, Once, may repeat every 2 to 3 minutes until patient responds, # 2 each, 0 Refills, Soft Stop, 05/25/21 10:17:00 EST, [facility], 188, cm, 05/25/21 9:26:00 EST, Height, 125.2, kg, 06/20/20 14:28:00 EST, Dry Weight Start Date: 05/25/21 Status: Ordered nystatin-triamcinolone topical 386781 u/gm-0.1% ointment 1 applicator, Topically, 3 times a day, to foreskin area FOR 3 DAYS then switch to other antifungal, # 15 Gm, 1 Refills, Maintenance, 05/25/21 10:20:00 EST, [facility], 1 applicator Topically 3 [...] EDT Start Date: 08/20/18 Status: Ordered Pen [place], 31 G x 8 mm BD Ultra [...] mL, 11 Refills, Maintenance, 05/25/21 10:14:00 EST, [facility], Partial fill upon patient request if the prescription is for a schedule II op... Start Date: 05/25/21 Status: Ordered Singulair 10 mg oral tablet 10 mg, 1, tablet, By Mouth, Daily, # 90 tablet, Refills 3, Tot. Refills 3, Maintenance, 03/30/20 21:31:00 EST, Route to Pharmacy Electronically, [facility], 185, cm, 02/25/20 10:29:00 EST, Height, [...] solution 0.75 mL, Intramuscular, Every 14 days, [facility], # 5 mL, 5 Refills, Maintenance, 03/25/21 1:06:00 EST, [facility], 188, cm, 03/22/21 14:17:00 EST, Height, 125.2, kg, 06/20/20 14:28:00 EST, Dry Weight Start Date: 03/25/21 Status: Ordered tiZANidine 4 mg oral tablet 4 mg, 1, tablet, By Mouth, 3 times a day, PRN, # 90 tablet, Refills 11, Tot. Refills 11, Maintenance, as needed for muscle spasm, 07/08/20 15:40:00 EDT, Route to Pharmacy Electronically, [facility], 188, cm, 07/08/20 13:42:00 EDT, Height, 12... Start Date: 07/08/20 Status: Ordered traZODone 100 mg oral tablet TAKE ONE TO TWO TABLETS BY MOUTH AT BEDTIME NEEDED S. McAnulty Start Date: 05/11/20 Status: Ordered Tylenol Extra Strength 500 mg oral tablet 2 tablet = 1,000 mg, By Mouth, 3 times a day, # 30 tablet, 11 Refills, Maintenance, 03/24/21 21:00:00 EST, [facility], 188, cm, 03/22/21 14:17:00 EST, Height, 125.2, kg, 06/20/20 14:28:00 EST, Dry Weight Start Date: 03/24/21 Status: Ordered Vitamin D3 1000 intl units oral tablet 1 tablet, By Mouth, Daily, # 30 tablet, 5 Refills, [facility], 188, cm, 03/22/21 14:17:00EST, Height, 125.2, [...]
--- OUTSIDE RECORDS SUMMARY | 2023-10-11 08:17 | XMS_ITS | Continuity of Care Document ---
Author Organization [facility] Address [address] [place] [address]- Care Team Providers Care Assistant Toddler Teacher Name Role Phone Vamshi Man MD Primary Care Physician Encounter [facility] Date(s): 03/08/20 - 04/07/20 [facility]/[address] [address]- Allergies, Adverse Reactions, Alerts Substance Reaction Severity [...] REceived at [facility] at [place], [place]; ordered by Dr Michael Oliveira 12Location [...] 03/30/20 21:31:00 EST, Route to Pharmacy Electronically, [facility], [employer] rx. original sent 11/04/19. remaining refills sent., 185, cm, 02/25/20 10:29:00 EST, Hei... Start Date: 03/30/20 Status: Ordered AutoCPAP 9-18 with heated humidification AutoCPAP 9-18 with heated humidification, See Instructions, # 1 each, Refills 0, Tot. Refills 0, Maintenance, use overnight and naps from [facility], 11/04/18 12:28:22 EDT, Compound Start [...] = 300 mg, By Mouth, Daily, Latosha Reeys, Maintenance, 03/14/18 8:20:24 EST, ER Tablet Start Date: 03/14/18 Status: Ordered cetirizine 10 mg oral tablet TAKE 1 TABLET ONCE A DAY IN THE EVENING FOR 90 DAYS Start Date: 08/20/18 Status: Ordered cholecalciferol 1000 intl units oral capsule 1 capsule, By Mouth, Daily, # 90 capsule, 3 Refills, Maintenance, 03/30/20 21:36:00 EST, [facility], 185, cm, 02/25/20 10:29:00 EST, Height, 126.81, kg, 02/25/20 10:29:00 EST, Dry Weight Start Date: 03/30/20 Status: Ordered clotrimazole 1% topical cream 1 application, Topically, 2 times a day, apply to penile rash, # 30 Gm, 2 Refills, Maintenance, 01/07/20 14:49:00 EDT, Cream, [facility], 1 application Topically 2 times a day,Instr:apply to penile rash, 185, cm, 01/07/20 13:55:00 EDT, Francheska... Start Date: 01/07/20 Status: Ordered Cozaar 100 mg oral tablet 1 tablet = 100 mg, By Mouth, Daily in AM, # 30 tablet, 5 Refills, Maintenance, 03/15/20 17:08:00 EST, Tablet, [facility], duplicate rx. original sent 09/16/19. remaining refills sent., 185, cm, 02/25/20 10:29:00 EST, Height, 126.81, kg, ... Start Date: 03/15/20 Status: Ordered diclofenac 1% topical gel = 2 Gm, Topically, 4 times a day, PRN for pain, (kyrgyz) not to exceed: 16 gm/day/joint lower limb8 gm/day/joint of upper limb 32 gm/day, # 100 Gm, 1 Refills, Maintenance, 10/27/19 10:15:00 EDT, Gel, [facility], 185, cm, 06/24/19 13:00:... Start Date: [...] 11 Refills, Maintenance, 02/15/20 21:05:00 EST, Solution, [facility], 185, cm, 01/07/20 13:55:00 EDT, Height, [...] tablet, 11 Refills, Maintenance, 01/07/20 14:40:00 EDT, [facility], 185, cm, 01/07/20 13:55:00 EDT, Height, 127.72, kg, 05/06/19 13:41:00 EST, Dry Weight Start Date: 01/07/20 Status: Ordered Lantus Solostar Pen 100 units/mL subcutaneous solution = 90 units, Subcutaneous Infusion, Daily at bedtime, # 15 mL, 2 Refills, Maintenance, 03/08/20 15:23:00 EST, [facility], 185, cm, 02/25/20 10:29:00 EST, Height, 126.81, kg, 02/25/20 10:29:00 EST, Dry Weight Start Date: 03/08/20 Status: Ordered latanoprost 0.005% ophthalmic solution 1 drops, Eyes, Both, Daily at bedtime, cover gap- Naturalization Examiner Dr Broussard, # 2.5 mL, 1 Refills, Maintenance, 02/25/14 10:47:09, Ophth Solution, 1 drops Eyes, Both Daily at bedtime,Instr:cover gap-Naturalization Examiner Dr Broussard Start Date: 02/25/14 Status: Ordered lidocaine 4% topical cream 1 application, Topically, 3 times a day, may interchange 3-5% cream or ointment or 2% gel per insurance coverage., # 60 Gm, 5 Refills, Maintenance, 10/28/19 20:11:00 EDT, [facility], 1 application Topically 3 times a day,Instr:may interchang... Start Date: 10/28/19 Status: Ordered Lipitor 40 mg oral tablet 1 tablet = 40 mg, By Mouth, Daily, # 90 tablet, 3 Refills, Maintenance, 03/30/20 21:30:00 EST, [facility], duplicate rx. original sent 11/04/19. remaining refill sent., 185, cm, 02/25/20 10:29:00 EST, Height, 126.81, kg, 02/25/20 10:29:00 EST... Start Date: 03/30/20 Status: Ordered metFORMIN 500 mg oral tablet 1 tablet = 500 mg, By Mouth, 2 times a day, with meals. Replaces metformin ER, # 60 tablet, 11 Refills, Maintenance, 06/24/19 15:02:00 EDT, Tablet, [facility], 185, cm, 06/24/19 13:00:00 EDT, Height, [...] pain. IDC10: G90.5 CRPS. 28 day supply. [facility]., # 154 tablet, 0 Refills, Maintenance, pain, 03/30/20 23:51:00 EST,[facility], May partial fill., 03/30/20... Start Date: [...] Start Date: 05/15/18 Status: Ordered nystatin-triamcinolone topical 675481 u/gm-0.1% ointment 1 applicator, Topically, 3 times a day, to foreskin area FOR 3 DAYS then switch to other antifungal, # 15 Gm, 1 Refills, Maintenance, 01/07/20 14:48:00 EDT, [facility], 1 applicator Topically 3 times a [...] EDT Start Date: 08/20/18 Status: Ordered Pen [place], 31 G x 8 mm BD Ultra [...] 03/30/20 21:31:00 EST, Route to Pharmacy Electronically, [facility], 185, cm, 02/25/20 10:29:00 EST, Height, 126.81, kg, 02/25/20 10:29:00 EST, Dry Weight Start Date: 03/30/20 Status: Ordered Testosterone Cypionate = 0.75 mg, Intramuscular, Every 14 days, Adm. today to Lot [id number] exp: 02/2020, 0 Refills, Maintenance, 11/14/18 14:06:08 EDT Start Date: 11/14/18 Status: Ordered testosterone enanthate 200 mg/mL intramuscular solution 0.75 mL, Intramuscular, Every 14 days, [facility], # 5 mL, 5 Refills, Maintenance, 01/06/20 11:17:00 EDT, [facility], 185, cm, 06/24/19 13:00:00 EDT, Height, 127.72, kg, 05/06/19 13:41:00 EST, Dry Weight Start Date: 01/06/20 Status: Ordered testosterone enanthate 200 mg/mL intramuscular solution 0.75 mL, Intramuscular, Every 14 days, [facility], # 5 mL, 5 Refills, Maintenance, 01/11/20 21:30:00 EDT, [facility], 185, cm, 01/07/20 13:55:00 EDT, Height, 127.72, kg, 05/06/19 13:41:00 EST, Dry Weight Start Date: 01/11/20 Status: Ordered tiZANidine 4 mg oral tablet 4 mg, 1, tablet, By Mouth, 3 times a day, PRN, # 90 tablet, Refills 11, Tot. Refills 11, Maintenance, as needed for muscle spasm, 02/04/19 21:34:51 EDT, Route to Pharmacy Electronically, NCPDP_[id number], [facility] Start Date: 02/04/19 Status: Ordered Problem [...] ? chr regional pain syndrome 4s/p Modified [place] procedure, repair of conjoined tendon of extensor [...]
--- OUTSIDE RECORDS SUMMARY | 2023-10-11 08:17 | XMS_ITS | Continuity of Care Document ---
Author Organization [facility] Address [address] [place] [address]- Care Team Providers Care Cupola Liner Name Role Phone Vamshi Man MD Primary Care Physician Encounter [facility] Date(s): 05/21/20 - 06/20/20 [facility]/[address] [address]- Allergies, Adverse Reactions, Alerts Substance Reaction Severity [...] Elissa Bertrand 11Result Comment: [11/27/2017] REceived at [facility] at [place], [place]; ordered by Dr Michael Oliveira 12Location [...] 21:31:00 EST, Route to Pharmacy Electronically, [facility], [employer] rx. original sent 11/04/19. remaining refills sent., 185, cm, 02/25/20 10:29:00 EST, Hei... Start Date: 03/30/20 Status: Ordered AutoCPAP 9-18 with heated humidification AutoCPAP 9-18 with heated humidification, See Instructions, # 1 each, Refills 0, Tot. Refills 0, Maintenance, use overnight and naps from [facility], 11/04/18 12:28:22 EDT, Compound Start Date: [...] 3 Refills, Maintenance, 03/30/20 21:36:00 EST, [facility], 185, cm, 02/25/20 10:29:00 EST, Height, 126.81, kg, 02/25/20 10:29:00 EST, Dry Weight Start Date: 03/30/20 Status: Ordered clotrimazole 1% topical cream 1 application, Topically, 2 times a day, apply to penile rash, # 30 Gm, 2 Refills, Maintenance, 01/07/20 14:49:00 EDT, Cream, [facility], 1 application Topically 2 times a day,Instr:apply to penile rash, 185, cm, 01/07/20 13:55:00 EDT, Hechidi... Start Date: 01/07/20 Status: Ordered Cozaar 100 mg oral tablet 1 tablet = 100 mg, By Mouth, Daily in AM, # 30 tablet, 5 Refills, Maintenance, 03/15/20 17:08:00 EST, Tablet, [facility], duplicate rx. original sent 09/16/19. remaining [...] 06/27/20 14:15:00 EDT, 06/20/20 14:15:00 EST, Tablet, [facility]/pharmacy #[id number], Partial fill upon patient request if th... Start Date: 06/20/20 Stop Date: 06/27/20 Status: Ordered diclofenac 1% topical gel = 2 Gm, Topically, 4 times a day, PRN for pain, (yakut) not to exceed: 16 gm/day/joint lower limb8 gm/day/joint of upper limb 32 gm/day, # 100 Gm, 1 Refills, Maintenance, 10/27/19 10:15:00 EDT, Gel, [facility], 185, cm, 06/24/19 13:00:... Start Date: [...] 11 Refills, Maintenance, 02/15/20 21:05:00 EST, Solution, [facility], 185, cm, 01/07/20 13:55:00 EDT, Height, [...] tablet, Refills 0, Tot. Refills 0, Acute 03/14/21 14:15:00 EDT, for pain, 06/20/20 14:15:00 EST, [id number], Partial fill upon patient request... Start Date: 06/20/20 Stop Date: 06/27/20 Status: Ordered ketotifen 0.025% ophthalmic solution INSTILL 1 DROP INTO AFFECTED EYE TWICE A DAY Dr Poe Start Date: 05/11/20 Status: Ordered Lantus Solostar Pen 100 units/mL subcutaneous solution = 90 units, Subcutaneous Infusion, Daily at bedtime, # 15 mL, 2 Refills, Maintenance, 05/06/20 9:55:00 EST, [facility], 185, cm, 02/25/20 10:29:00 EST, Height, [...] Gm, 5 Refills, Maintenance, 10/28/19 20:11:00 EDT, [facility], 1 application Topically 3 times a day,Instr:august interchang... Start Date: 10/28/19 Status: Ordered lidocaine 4% topical film 1 patch, Topically, 2 times a day, for 5 days, # 10 patch, 0 Refills, Acute 06/25/20 14:16:00 EST, 06/20/20 14:16:00 EST, Film, [id number], Partial fill upon patient request if the prescription is for a schedule II opioid drug., 1 patch Topica... Start Date: 06/20/20 Stop Date: 06/25/20 Status: Ordered Lipitor 40 mg oral tablet 1 tablet = 40 mg, By Mouth, Daily, # 90 tablet, 3 Refills, Maintenance, 03/30/20 21:30:00 EST, [facility], duplicate rx. original sent 11/04/19. remaining [...] 11 Refills, Maintenance, 06/24/19 15:02:00 EDT, Tablet, [facility], 185, cm, 06/24/19 13:00:00 EDT, Height, 127.72, kg, 05/06/19 13:41:00 EST, Dry We... Start Date: 06/24/19 Status: Ordered methadone 10 mg oral tablet See Instructions, By mouth. 2 tab in AM, 1.5 midday, 2 in evening;for pain. IDC10: G90.5 CRPS. 28 day supply. [facility]., # 154 tablet, 0 Refills, Maintenance, pain, 06/21/20 17:50:00 EST,[facility], May partial fill., 185, cm,... Start Date: 06/21/20 Status: Ordered methadone 10 mg oral tablet See Instructions, By mouth. 2 tab in AM, 1.5 midday, 2 in evening;for pain. IDC10: G90.5 CRPS. 28 day supply. [facility]., # 154 tablet, 0 Refills, Maintenance, pain, 05/24/20 16:29:00 EST,[facility], May partial fill., 05/24/20... Start Date: [...] Start Date: 05/15/18 Status: Ordered nystatin-triamcinolone topical 663136 u/gm-0.1% ointment 1 applicator, Topically, 3 times a day, to foreskin area FOR 3 DAYS then switch to other antifungal, # 15 Gm, 1 Refills, Maintenance, 01/07/20 14:48:00 EDT, [facility], 1 applicator Topically 3 times a [...] EDT Start Date: 08/20/18 Status: Ordered Pen [place], 31 G x 8 mm BD Ultra [...] 06/24/20 14:15:00 EST, 06/20/20 14:15:00 EST, Tablet, [facility]/pharmacy #[id number], Partial fill upon patient request if the prescription is for a schedule II opioid drug., 188, cm, ... Start Date: 06/20/20 Stop Date: 06/24/20 Status: Ordered Singulair 10 mg oral tablet 10 mg, 1, tablet, By Mouth, Daily, # 90 tablet, Refills 3, Tot. Refills 3, Maintenance, 03/30/20 21:31:00 EST, Route to Pharmacy Electronically, [facility], 185, cm, 02/25/20 10:29:00 EST, Height, [...] 0.75 mL, Intramuscular, Every 14 days, [facility], # 5 mL, 5 Refills, Maintenance, 01/11/20 21:30:00 EDT, [facility], 185, cm, 01/07/20 13:55:00 EDT, Height, 127.72, kg, 05/06/19 13:41:00 EST, Dry Weight Start Date: 01/11/20 Status: Ordered tiZANidine 4 mg oral tablet 4 mg, 1, tablet, By Mouth, 3 times a day, PRN, # 90 tablet, Refills 11, Tot. Refills 11, Maintenance, as needed for muscle spasm, 05/11/20 18:47:00 EST, Route to Pharmacy Electronically, [facility], 185, cm, 02/25/20 10:29:00 EST, Height, 12... Start Date: 05/11/20 Status: Ordered traZODone 100 mg oral tablet TAKE ONE TO TWO TABLETS BY MOUTH AT BEDTIME NEEDED S. McAnnatheny Start Date: 05/11/20 Status: Ordered Tylenol Extra Strength 500 mg oral tablet 2 tablet = 1,000 mg, By Mouth, 3 times a day, PRN as needed for pain, for 7 days, # 50 tablet, 0 Refills, Acute 06/27/20 14:15:00 EDT, 06/20/20 14:15:00 EST, Tablet, [facility]/pharmacy #[id number], Partial fill upon patient request if the [...]
--- OUTSIDE RECORDS SUMMARY | 2023-10-11 08:17 | XMS_ITS | Continuity of Care Document ---
Author Organization [facility] Address Unknown Care Team Providers Care [employer] Jointer Name Role Phone Vamshi Man MD Primary Care Physician [phone] [facility] [place] Date(s): 04/06/21 - 05/21/21 [facility] Attending Physician: Vamshi Man MD Admitting [...] [11/27/2017] REceived at [facility] at [place], [place]; ordered by Dr Michael Oliveira 13Location [...] tablet, 5 Refills, Maintenance, 05/14/21 20:06:00 EST, [facility], 188, cm, 03/22/21 14:17:00 EST, Height, 125.2, kg, 06/20/20 14:28:00 EST, Dry Weight Start Date: 05/14/21 Status: Ordered atorvastatin 40 mg oral tablet 1 tablet, By Mouth, Daily, # 90 tablet, 1 Refills, [facility], 188, cm, 03/22/21 14:17:00EST, Height, 125.2, [...] 2 Refills, Maintenance, 01/07/20 14:49:00 EDT, Cream, [facility], 1 application Topically 2 times a day,Instr:apply to penile rash, 185, cm, 01/07/20 13:55:00 EDT, Francheska... Start Date: 01/07/20 Status: Ordered Cozaar 100 mg oral tablet 1 tablet = 100 mg, By Mouth, Daily in AM, # 30 tablet, 11 Refills, Maintenance, 09/22/20 9:41:00 EDT, Tablet, [facility], duplicate rx. original sent 09/16/19. remaining [...] 06/25/20 15:39:00 EST, Route to Pharmacy Electronically, [facility], Partial f... Start Date: 06/25/20 Status: Ordered diclofenac 1% topical gel = 2 Gm, Topically, 4 times a day, PRN for pain, (israeli) not to exceed: 16 gm/day/joint lower limb8 gm/day/joint of upper limb 32 gm/day may interchange for cream, # 100 Gm, 5 Refills, Maintenance,07/08/20 15:35:00 EDT, Gel, [facility] Start Date: 07/08/20 Status: Ordered docusate [...] 11 Refills, Maintenance, 03/03/21 21:23:00 EST, Solution, [facility], 188, cm, 02/24/21 16:26:00 EST, Height, [...] mL, 11 Refills, Maintenance, 01/14/21 18:16:00 EDT, [facility], 188, cm, 12/22/20 9:45:00 EDT, Height, 125.2, kg, 06/20/20 14:28:00EST, Dry Weight Start Date: 01/14/21 Status: Ordered latanoprost 0.005% ophthalmic solution 0 Refills, Maintenance, 05/11/20 16:57:00 EST Start Date: 05/11/20 Status: Ordered lidocaine 5% topical ointment See Instructions, 1 APPLICATION TOPICALLY 3 TIMES A DAY, # 70.88 Gm, 4 Refills, Acute, [facility], 14, 1 APPLICATION TOPICALLY 3 TIMES A DAY, 188, cm, 09/22/20 8:33:00 EDT, Height, 125.2, kg, 06/20/20 14:28:00 EST, Dry Weight Start Date: 11/08/20 Status: Ordered LORazepam 1 mg oral tablet See Instructions, PRN for anxiety, 2 tablets By Mouth 1 hours prior to MRI, # 2 tablet, 0 Refills, Acute 09/22/21 9:45:00 EDT, 09/22/20 9:43:00 EDT, Tablet, [facility], Partial fill upon patient request if the prescription is for a schedule... Start Date: 09/22/20 Stop Date: 09/22/21 Status: Ordered LORazepam 1 mg oral tablet See Instructions, PRN for anxiety, 2 tablets By Mouth 1 hours prior to MRI, # 2 tablet, 0 Refills, Maintenance, 04/15/21 10:58:00 EST, Tablet, [facility], 188, cm, 03/22/21 14:17:00 EST, Height, [...] tablet, 0 Refills, Maintenance, pain, 03/29/21 21:05:00 EST,[facility], May partial fill., 03/29/21... Start Date: 03/29/21 Status: Ordered methadone 10 mg oral tablet See Instructions, By mouth. 2 tab in AM, 1.5 midday, 2 in evening;for pain. IDC10: G90.5 CRPS. 28 day supply. [facility]., # 154 tablet, 0 Refills, Maintenance, pain, 04/26/21 0:34:00 EST, [facility], May partial fill., 04/26/21,... Start Date: [...] Start Date: 05/15/18 Status: Ordered nystatin-triamcinolone topical 587675 u/gm-0.1% ointment 1 applicator, Topically, 3 times a day, to foreskin area FOR 3 DAYS then switch to other antifungal, # 15 Gm, 1 Refills, Maintenance, 07/08/20 15:34:00 EDT, [facility], 1 applicator Topically 3 times a [...] EDT Start Date: 08/20/18 Status: Ordered Pen [place], 31 G x 8 mm BD Ultra [...] 03/30/20 21:31:00 EST, Route to Pharmacy Electronically, [facility], 185, cm, 02/25/20 10:29:00 EST, Height, [...] solution 0.75 mL, Intramuscular, Every 14 days, [facility], # 5 mL, 5 Refills, Maintenance, 03/25/21 1:06:00 EST, [facility], 188, cm, 03/22/21 14:17:00 EST, Height, 125.2, kg, 06/20/20 14:28:00 EST, Dry Weight Start Date: 03/25/21 Status: Ordered tiZANidine 4 mg oral tablet 4 mg, 1, tablet, By Mouth, 3 times a day, PRN, # 90 tablet, Refills 11, Tot. Refills 11, Maintenance, as needed for muscle spasm, 07/08/20 15:40:00 EDT, Route to Pharmacy Electronically, [facility], 188, cm, 07/08/20 13:42:00 EDT, Height, 12... Start Date: 07/08/20 Status: Ordered traZODone 100 mg oral tablet TAKE ONE TO TWO TABLETS BY MOUTH AT BEDTIME NEEDED SZayra Morales Start Date: 05/11/20 Status: Ordered Tylenol Extra Strength 500 mg oral tablet 2 tablet = 1,000 mg, By Mouth, 3 times a day, # 30 tablet, 11 Refills, Maintenance, 03/24/21 21:00:00 EST, [facility], 188, cm, 03/22/21 14:17:00 EST, Height, 125.2, kg, 06/20/20 14:28:00 EST, Dry Weight Start Date: 03/24/21 Status: Ordered Vitamin D3 1000 intl units oral tablet 1 tablet, By Mouth, Daily, # 30 tablet, 5 Refills, [facility], 188, cm, 03/22/21 14:17:00EST, Height, 125.2, [...] ? chr regional pain syndrome 4s/p Modified [place] procedure, repair of conjoined tendon of extensor [...]
--- OUTSIDE RECORDS SUMMARY | 2023-10-11 08:18 | XMS_ITS | Continuity of Care Document ---
Author Organization [facility] Address Unknown Care Team Providers Care Physical Science Technician Name Role Phone Vamshi Man MD Primary Care Physician [phone] [place] [facility] [place](s): 09/23/21 - 11/06/21 [facility] Attending Physician: Not on Staff, Attending MD [...] 12Result Comment: [11/27/2017] REceived at [facility] [place], [place]; ordered by Dr Michael Oliveira 13Location [...] tablet, 5 Refills, Maintenance, 05/14/21 20:06:00 EST, [facility], 188, cm, 03/22/21 14:17:00 EST, Height, 125.2, kg, 06/20/20 14:28:00 EST, Dry Weight Start Date: 05/14/21 Status: Ordered atorvastatin 40 mg oral tablet 1 tablet, By Mouth, Daily, # 90 tablet, 1 Refills, [facility], 188, cm, 09/15/21 12:49:00EDT, Height, 125.2, kg, 06/20/20 14:28:00 EST, Dry Weight Start Date: 10/04/21 Status: Ordered AutoCPAP 9-18 with heated humidification AutoCPAP 9-18 with heated humidification, See Instructions, # 1 each, Refills 0, Tot. Refills 0, Maintenance, use overnight and naps from [facility], 11/04/18 12:28:22 EDT, Compound Start Date: 11/04/18 [...] 2 Refills, Maintenance, 09/15/21 14:49:00 EDT, Cream, [facility], 1 application Topically 2 times [...] 06/25/20 15:39:00 EST, Route to Pharmacy Electronically, [facility], Partial f... Start Date: 06/25/20 Status: Ordered diclofenac 1% topical gel = 2 Gm, Topically, 4 times a day, PRN for pain, (slovak) not to exceed: 16 gm/day/joint lower limb8 gm/day/joint of upper limb 32 gm/day may interchange for cream, # 100 Gm, 5 Refills, Maintenance,07/08/20 15:35:00 EDT, Gel, [facility] Start Date: 07/08/20 Status: Ordered docusate [...] 08/22/21 16:07:00 EDT, Route to Pharmacy Electronically, [facility], Partial fill upon patient request i... Start Date: 08/22/21 Status: Ordered gabapentin 600 mg oral tablet 1 tablet = 600 mg, By Mouth, Daily at bedtime, for sciatic pain, # 25 tablet, 1 Refills, Maintenance, 09/15/21 14:34:00 EDT, [facility], [...] tablet, 11 Refills, Maintenance, 07/25/21 20:18:00 EDT, [facility], 188, cm, 06/28/21 16:20:00 EDT, Height, [...] mL, 11 Refills, Maintenance, 01/14/21 18:16:00 EDT, [facility], 188, cm, 12/22/20 9:45:00 EDT, Height, 125.2, kg, 06/20/20 14:28:00EST, Dry Weight Start Date: 01/14/21 Status: Ordered latanoprost 0.005% ophthalmic solution 0 Refills, Maintenance, 05/11/20 16:57:00 EST Start Date: 05/11/20 Status: Ordered lidocaine 5% topical ointment See Instructions, PRN Pain , Moderate, 1 APPLICATION TOPICALLY 3 TIMES A DAY, # 50 Gm, 5 Refills, Maintenance, 08/29/21 22:40:00 EDT, [facility], 1 APPLICATION TOPICALLY 3 TIMES A DAY,PRN:Pain , Moderate, 188, cm, 08/26/21 9:59:00 EDT, Francheska..Zayra Start Date: 08/29/21 Status: Ordered LORazepam 1 mg oral tablet See Instructions, PRN for anxiety, 2 tablets By Mouth 1 hours prior to MRI, # 2 tablet, 1 Refills, Maintenance, 05/25/21 10:06:00 EST, Tablet, [facility], 188, cm, 05/25/21 9:26:00 EST, Height, 125.2, kg, 06/20/20 14:28:00 EST, Dry Weight Start Date: 05/25/21 Status: Ordered losartan 100 mg oral tablet 1 tablet, By Mouth, Daily in AM, # 30 tablet, 5 Refills, [facility], 188, cm, 09/15/21 12:49:00 EDT, Height, [...] 1 Refills, Maintenance, 09/15/21 14:35:00 EDT, Tablet, [facility], Partial fill upon patient request if the prescription is for a schedule II opioid... Start Date: 09/15/21 Status: Ordered metFORMIN 500 mg oral tablet 1 tablet, By Mouth, 2 times a day, # 60 tablet, 5 Refills, [facility], 188, cm, 06/28/21 16:20:00 EDT, Height, 125.2, kg, 06/20/20 14:28:00 EST, Dry Weight Start Date: 07/08/21 Status: Ordered methadone 10 mg oral tablet See Instructions, By mouth. 2 tab in AM, 1.5 midday, 2 in evening;for pain. IDC10: G90.5 CRPS. 28 day supply. [facility]., # 154 tablet, 0 Refills, Maintenance, pain, 11/08/21 7:19:00 EDT, [facility], May partial fill., 188, cm,... Start Date: 11/08/21 Status: Ordered methadone 10 mg oral tablet See Instructions, By mouth. 2 tab in AM, 1.5 midday, 2 in evening;for pain. IDC10: G90.5 CRPS. 28 day supply. [facility]., # 154 tablet, 0 Refills, Maintenance, pain, 12/06/21 7:20:00 EDT, [facility], August partial fill., 12/06/21,... Start Date: 12/06/21 Status: Ordered Metoclopramide = 10 mg, By Mouth, 3 times a day before meals and bedtime, 0 Refills, Maintenance, 08/20/18 13:55:26 EDT Start Date: 08/20/18 Status: Ordered multivitamin Multiple Vitamins oral tablet 1 tablet, By Mouth, Daily, B complex multivitamin, # 30 tablet, 11 Refills, Maintenance, 12/22/20 10:52:00 EDT, [facility], Partial fill upon patient request if the prescription is for a schedule II opioid drug., 1 tablet By Mouth Daily,Inst... Start Date: 12/22/20 Status: Ordered Narcan 4 mg/0.1 mL nasal spray = 4 mg, Nares, Both, Once, may repeat every 2 to 3 minutes until patient responds, # 2 each, 0 Refills, Soft Stop, 05/25/21 10:17:00 EST, [facility], 188, cm, 05/25/21 9:26:00 EST, Height, 125.2, kg, 06/20/20 14:28:00 EST, Dry Weight Start Date: 05/25/21 Status: Ordered nystatin-triamcinolone topical 779760 u/gm-0.1% ointment 1 applicator, Topically, 3 times a day, to foreskin area FOR 3 DAYS then switch to other antifungal, # 15 Gm, 1 Refills, Maintenance, 05/25/21 10:20:00 EST, [facility], 1 applicator Topically 3 times a [...] [place] Start Date: 08/20/18 Status: Ordered Pen [place], 31 G x 8 mm BD Ultra [...] each, 11 Refills, Maintenance, 09/15/21 14:29:00 EDT, [facility], Partial fill upon patient request if the prescription is for a schedule II opioid drug., 188, cm, 09/15/21 12:4... Start Date: 09/15/21 Status: Ordered Singulair 10 mg oral tablet 10 mg, 1, tablet, By Mouth, Daily, # 90 tablet, Refills 3, Tot. Refills 3, Maintenance, 03/30/20 21:31:00 EST, Route to Pharmacy Electronically, [facility], 185, cm, 02/25/20 10:29:00 EST, Height, [...] solution 0.75 mL, Intramuscular, Every 14 days, [facility], # 5 mL, 5 Refills, Maintenance, 07/27/21 9:48:00 EDT, [facility], 188, cm, 07/27/21 8:34:00 EDT, Height, 125.2, kg, 06/20/20 14:28:00 EST, Dry Weight Start Date: 07/27/21 Status: Ordered tiZANidine 4 mg oral tablet 4 mg, 1, tablet, By Mouth, 3 times a day, PRN, # 90 tablet, Refills 11, Tot. Refills 11, Maintenance, as needed for muscle spasm, 08/12/21 11:09:00 EDT, Route to Pharmacy Electronically, [facility], 188, cm, 07/27/21 8:34:00 EDT, Height, 125... Start Date: 08/12/21 Status: Ordered traZODone 100 mg oral tablet TAKE ONE TO TWO TABLETS BY MOUTH AT BEDTIME NEEDED S. Adynulty Start Date: 05/11/20 Status: Ordered Tylenol Extra Strength 500 mg oral tablet 2 tablet = 1,000 mg, By Mouth, 3 times a day, # 30 tablet, 11 Refills, Maintenance, 03/24/21 21:00:00 EST, [facility], 188, cm, 03/22/21 14:17:00 EST, Height, 125.2, kg, 06/20/20 14:28:00 EST, Dry Weight Start Date: 03/24/21 Status: Ordered Vitamin D3 1000 intl units oral tablet 1 tablet, By Mouth, Daily, for 30 days, # 30 tablet, 11 Refills, Physician Stop 10/30/22 17:07:00 EDT, 11/04/21 17:07:00 EDT, [facility], 188, cm, 09/15/21 12:49:00 EDT, Height, [...]
--- OUTSIDE RECORDS SUMMARY | 2023-10-11 08:18 | XMS_ITS | Continuity of Care Document ---
Author Organization [facility] Address [address] [place] [address]- Care Team Providers Care Supervisor Painting Department Name Role Phone Vamshi Man MD Primary Care Physician Encounter [facility] Date(s): 03/25/20 - 04/24/20 [facility]/[address] [address]- Allergies, Adverse Reactions, Alerts Substance Reaction Severity [...] Elissa Bertrand 11Result Comment: [11/27/2017] REceived at [facility] at [place], [place]; ordered by Dr Michael Oliveira 12Location [...] 03/30/20 21:31:00 EST, Route to Pharmacy Electronically, [facility], mohanilcate rx. original sent 11/04/19. remaining refills sent., 185, cm, 02/25/20 10:29:00 EST, Hei... Start Date: 03/30/20 Status: Ordered AutoCPAP 9-18 with heated humidification AutoCPAP 9-18 with heated humidification, See Instructions, # 1 each, Refills 0, Tot. Refills 0, Maintenance, use overnight and naps from [facility], 11/04/18 12:28:22 EDT, Compound Start Date: [...] capsule, 3 Refills, Maintenance, 03/30/20 21:36:00 EST, [facility], 185, cm, 02/25/20 10:29:00 EST, Height, 126.81, kg, 02/25/20 10:29:00 EST, Dry Weight Start Date: 03/30/20 Status: Ordered clotrimazole 1% topical cream 1 application, Topically, 2 times a day, apply to penile rash, # 30 Gm, 2 Refills, Maintenance, 01/07/20 14:49:00 EDT, Cream, [facility], 1 application Topically 2 times a day,Instr:apply to penile rash, 185, cm, 01/07/20 13:55:00 EDT, Francheska... Start Date: 01/07/20 Status: Ordered Cozaar 100 mg oral tablet 1 tablet = 100 mg, By Mouth, Daily in AM, # 30 tablet, 5 Refills, Maintenance, 03/15/20 17:08:00 EST, Tablet, [facility], duplicate rx. original sent 09/16/19. remaining refills sent., 185, cm, 02/25/20 10:29:00 EST, Height, 126.81, kg, ... Start Date: 03/15/20 Status: Ordered diclofenac 1% topical gel = 2 Gm, Topically, 4 times a day, PRN for pain, (welsh) not to exceed: 16 gm/day/joint lower limb8 gm/day/joint of upper limb 32 gm/day, # 100 Gm, 1 Refills, Maintenance, 10/27/19 10:15:00 EDT, Gel, [facility], 185, cm, 06/24/19 13:00:... Start Date: [...] 11 Refills, Maintenance, 02/15/20 21:05:00 EST, Solution, [facility], 185, cm, 01/07/20 13:55:00 EDT, Height, [...] tablet, 11 Refills, Maintenance, 01/07/20 14:40:00 EDT, [facility], 185, cm, 01/07/20 13:55:00 EDT, Height, 127.72, kg, 05/06/19 13:41:00 EST, Dry Weight Start Date: 01/07/20 Status: Ordered Lantus Solostar Pen 100 units/mL subcutaneous solution = 90 units, Subcutaneous Infusion, Daily at bedtime, # 15 mL, 2 Refills, Maintenance, 03/08/20 15:23:00 EST, [facility], 185, cm, 02/25/20 10:29:00 EST, Height, 126.81, kg, 02/25/20 10:29:00 EST, Dry Weight Start Date: 03/08/20 Status: Ordered latanoprost 0.005% ophthalmic solution 1 drops, Eyes, Both, Daily at bedtime, cover gap- Bel[employer] Inspector Dr Broussard, # 2.5 mL, 1 Refills, Maintenance, 02/25/14 10:47:09, Ophth Solution, 1 drops Eyes, Both Daily at bedtime,Instr:cover gap-Belting Inspector Dr Broussard Start Date: 02/25/14 Status: Ordered lidocaine 4% topical cream 1 application, Topically, 3 times a day, may interchange 3-5% cream or ointment or 2% gel per insurance coverage., # 60 Gm, 5 Refills, Maintenance, 10/28/19 20:11:00 EDT, [facility], 1 application Topically 3 times a day,Instr:august interchang... Start Date: 10/28/19 Status: Ordered Lipitor 40 mg oral tablet 1 tablet = 40 mg, By Mouth, Daily, # 90 tablet, 3 Refills, Maintenance, 03/30/20 21:30:00 EST, [facility], duplicate rx. original sent 11/04/19. remaining refill sent., 185, cm, 02/25/20 10:29:00 EST, Height, 126.81, kg, 02/25/20 10:29:00 EST... Start Date: 03/30/20 Status: Ordered metFORMIN 500 mg oral tablet 1 tablet = 500 mg, By Mouth, 2 times a day, with meals. Replaces metformin ER, # 60 tablet, 11 Refills, Maintenance, 06/24/19 15:02:00 EDT, Tablet, [facility], 185, cm, 06/24/19 13:00:00 EDT, Height, [...] pain. IDC10: G90.5 CRPS. 28 day supply. [facility]., # 154 tablet, 0 Refills, Maintenance, pain, 03/30/20 23:51:00 EST,[facility], May partial fill., 03/30/20... Start Date: 03/30/20 Status: Ordered methadone 10 mg oral tablet See Instructions, By mouth. 2 tab in AM, 1.5 midday, 2 in evening;for pain. IDC10: G90.5 CRPS. 28 day supply. [facility]., # 154 tablet, 0 Refills, Maintenance, pain, 03/02/20 21:37:00 EST,[facility], May partial fill., 03/02/20... Start Date: [...] Start Date: 05/15/18 Status: Ordered nystatin-triamcinolone topical 124411 u/gm-0.1% ointment 1 applicator, Topically, 3 times a day, to foreskin area FOR 3 DAYS then switch to other antifungal, # 15 Gm, 1 Refills, Maintenance, 01/07/20 14:48:00 EDT, [facility], 1 applicator Topically 3 times a [...] EDT Start Date: 08/20/18 Status: Ordered Pen [place], 31 G x 8 mm BD Ultra [...] 03/30/20 21:31:00 EST, Route to Pharmacy Electronically, [facility], 185, cm, 02/25/20 10:29:00 EST, Height, 126.81, kg, 02/25/20 10:29:00 EST, Dry Weight Start Date: 03/30/20 Status: Ordered Testosterone Cypionate = 0.75 mg, Intramuscular, Every 14 days, Adm. today to Lot [id number] exp: 02/2020, 0 Refills, Maintenance, 11/14/18 14:06:08 EDT Start Date: 11/14/18 Status: Ordered testosterone enanthate 200 mg/mL intramuscular solution 0.75 mL, Intramuscular, Every 14 days, [facility], # 5 mL, 5 Refills, Maintenance, 01/06/20 11:17:00 EDT, [facility], 185, cm, 06/24/19 13:00:00 EDT, Height, 127.72, kg, 05/06/19 13:41:00 EST, Dry Weight Start Date: 01/06/20 Status: Ordered testosterone enanthate 200 mg/mL intramuscular solution 0.75 mL, Intramuscular, Every 14 days, [facility], # 5 mL, 5 Refills, Maintenance, 01/11/20 21:30:00 EDT, [facility], 185, cm, 01/07/20 13:55:00 EDT, Height, 127.72, kg, 05/06/19 13:41:00 EST, Dry Weight Start Date: 01/11/20 Status: Ordered tiZANidine 4 mg oral tablet 4 mg, 1, tablet, By Mouth, 3 times a day, PRN, # 90 tablet, Refills 11, Tot. Refills 11, Maintenance, as needed for muscle spasm, 02/04/19 21:34:51 EDT, Route to Pharmacy Electronically, [id number], [facility] Start Date: 02/04/19 Status: Ordered Problem [...] ? chr regional pain syndrome 4s/p Modified [place] procedure, repair of conjoined tendon of extensor [...]
--- OUTSIDE RECORDS SUMMARY | 2023-10-11 08:18 | XMS_ITS | Continuity of Care Document ---
Author Organization [facility] Address Unknown Care Team Providers Care Grocery Stocker Name Role Phone Vamshi Man MD Primary Care Physician Encounter [facility] Date(s): 05/05/21 - 06/18/21 [facility] Attending Physician: Vamshi Man MD Admitting [...] 12Result Comment: [11/27/2017] REceived at [facility] [place], [place]; ordered by Dr Michael Oliveira 13Location [...] tablet, 5 Refills, Maintenance, 05/14/21 20:06:00 EST, [facility], 188, cm, 03/22/21 14:17:00 EST, Height, 125.2, kg, 06/20/20 14:28:00 EST, Dry Weight Start Date: 05/14/21 Status: Ordered atorvastatin 40 mg oral tablet 1 tablet, By Mouth, Daily, # 90 tablet, 1 Refills, [facility], 188, cm, 03/22/21 14:17:00EST, Height, 125.2, [...] 2 Refills, Maintenance, 01/07/20 14:49:00 EDT, Cream, [facility], 1 application Topically 2 times a day,Instr:apply to penile rash, 185, cm, 01/07/20 13:55:00 EDT, Francheska... Start Date: 01/07/20 Status: Ordered Cozaar 100 mg oral tablet 1 tablet = 100 mg, By Mouth, Daily in AM, # 30 tablet, 11 Refills, Maintenance, 09/22/20 9:41:00 EDT, Tablet, [facility], duplicate rx. original sent 09/16/19. remaining [...] 06/25/20 15:39:00 EST, Route to Pharmacy Electronically, [facility], Partial f... Start Date: 06/25/20 Status: Ordered diclofenac 1% topical gel = 2 Gm, Topically, 4 times a day, PRN for pain, (uzbek) not to exceed: 16 gm/day/joint lower limb8 gm/day/joint of upper limb 32 gm/day may interchange for cream, # 100 Gm, 5 Refills, Maintenance,07/08/20 15:35:00 EDT, Gel, [facility] Start Date: 07/08/20 Status: Ordered docusate [...] mL, 11 Refills, Maintenance, 01/14/21 18:16:00 EDT, [facility], 188, cm, 12/22/20 9:45:00 EDT, Height, 125.2, kg, 06/20/20 14:28:00EST, Dry Weight Start Date: 01/14/21 Status: Ordered latanoprost 0.005% ophthalmic solution 0 Refills, Maintenance, 05/11/20 16:57:00 EST Start Date: 05/11/20 Status: Ordered lidocaine 5% topical ointment See Instructions, 1 APPLICATION TOPICALLY 3 TIMES A DAY, # 70.88 Gm, 4 Refills, Acute, [facility], 14, 1 APPLICATION TOPICALLY 3 TIMES A DAY, 188, cm, 09/22/20 8:33:00 EDT, Height, 125.2, kg, 06/20/20 14:28:00 EST, Dry Weight Start Date: 11/08/20 Status: Ordered LORazepam 1 mg oral tablet See Instructions, PRN for anxiety, 2 tablets By Mouth 1 hours prior to MRI, # 2 tablet, 1 Refills, Maintenance, 05/25/21 10:06:00 EST, Tablet, [facility], 188, cm, 05/25/21 9:26:00 EST, Height, [...] 3 Refills, Maintenance, 07/08/20 15:40:00 EDT, Tablet, [facility], Duplicate rx-Original rx sent06/22/20. Resent., 188, cm, 07/08/20 13:42:00 EDT, He... Start Date: 07/08/20 Status: Ordered methadone 10 mg oral tablet See Instructions, By mouth. 2 tab in AM, 1.5 midday, 2 in evening;for pain. IDC10: G90.5 CRPS. 28 day supply. [facility]., # 154 tablet, 0 Refills, Maintenance, pain, 05/24/21 22:11:00 EST,[facility], August partial fill., 05/24/21... Start Date: 05/24/21 Status: Ordered methadone 10 mg oral tablet See Instructions, By mouth. 2 tab in AM, 1.5 midday, 2 in evening;for pain. IDC10: G90.5 CRPS. [address] [facility]., # 154 tablet, 0 Refills, Maintenance, pain, 06/21/21 22:11:00 EST,[facility], August partial fill., 06/21/21... Start Date: [...] 0 Refills, Soft Stop, 05/25/21 10:17:00 EST, [facility], 188, cm, 05/25/21 9:26:00 EST, Height, 125.2, kg, 06/20/20 14:28:00 EST, Dry Weight Start Date: 05/25/21 Status: Ordered nystatin-triamcinolone topical 918494 u/gm-0.1% ointment 1 applicator, Topically, 3 times a day, to foreskin area FOR 3 DAYS then switch to other antifungal, # 15 Gm, 1 Refills, Maintenance, 05/25/21 10:20:00 EST, [facility], 1 applicator Topically 3 times a [...] EDT Start Date: 08/20/18 Status: Ordered Pen [place], 31 G x 8 mm BD Ultra [...] mL, 11 Refills, Maintenance, 05/25/21 10:14:00 EST, [facility], Partial fill upon patient request if the prescription is for a schedule II op... Start Date: 05/25/21 Status: Ordered Singulair 10 mg oral tablet 10 mg, 1, tablet, By Mouth, Daily, # 90 tablet, Refills 3, Tot. Refills 3, Maintenance, 03/30/20 21:31:00 EST, Route to Pharmacy Electronically, [facility], 185, cm, 02/25/20 10:29:00 EST, Height, [...] solution 0.75 mL, Intramuscular, Every 14 days, [facility], # 5 mL, 5 Refills, Maintenance, 03/25/21 1:06:00 EST, [facility], 188, cm, 03/22/21 14:17:00 EST, Height, 125.2, kg, 06/20/20 14:28:00 EST, Dry Weight Start Date: 03/25/21 Status: Ordered tiZANidine 4 mg oral tablet 4 mg, 1, tablet, By Mouth, 3 times a day, PRN, # 90 tablet, Refills 11, Tot. Refills 11, Maintenance, as needed for muscle spasm, 07/08/20 15:40:00 EDT, Route to Pharmacy Electronically, [facility], 188, cm, 07/08/20 13:42:00 EDT, Height, 12... Start Date: 07/08/20 Status: Ordered traZODone 100 mg oral tablet TAKE ONE TO TWO TABLETS BY MOUTH AT BEDTIME NEEDED S. McAnulty Start Date: 05/11/20 Status: Ordered Tylenol Extra Strength 500 mg oral tablet 2 tablet = 1,000 mg, By Mouth, 3 times a day, # 30 tablet, 11 Refills, Maintenance, 03/24/21 21:00:00 EST, [facility], 188, cm, 03/22/21 14:17:00 EST, Height, 125.2, kg, 06/20/20 14:28:00 EST, Dry Weight Start Date: 03/24/21 Status: Ordered Vitamin D3 1000 intl units oral tablet 1 tablet, By Mouth, Daily, # 30 tablet, 5 Refills, [facility], 188, cm, 03/22/21 14:17:00EST, Height, 125.2, [...]
--- OUTSIDE RECORDS SUMMARY | 2023-10-11 08:18 | XMS_ITS | Continuity of Care Document ---
Author Organization [facility] Address [address] [place] [address]- Care Team Providers Care Integration Specialist Name Role Phone Vamshi Man MD Primary Care Physician [phone] Encounter [facility] Date(s): 02/21/23 - 04/06/23 [facility]/[place] [address]- Attending Physician: Not on Staff, Attending MD [...] Recorded Vaccine Date Status Refusal Reason SARS-CoV-2(COVID-19)mRNA-LNP vac([id number]) 01/30/23 Given influenza virus vaccine, inactivated 01/05/23 [...] influenza virus vaccine, inactivated 03/19/06 Give n [id number] 12y+ bivalent booster vax 02/16/22 Given pneumococcal 20-valent conjugate vaccine 02/16/22 Given Influenza Virus Vaccine (oldterm) 9 01/27/22 Recor ded Influenza Virus Vaccine (oldterm) 01/26/21 Recorde d SARS-CoV-2 mRNA ([id number]) vax 11/11/21 Given SARS-CoV-2 (COVID-19) mRNA BNT-162b2 [...] [facility] [place], [place]; ordered by Dr Michael Oliveira 14Location [...] 11 Refills, Maintenance, 02/08/23 10:21:00 EDT, Powder, [facility], replaces Flovent due to insurance coverage, 188, cm, 01/30/23 13:26:00 EDT, Height, 126, kg, 01/30/23 13:26:00 EDT,... Start Date: 02/08/23 Status: Ordered Aspirin Low Dose 81 mg oral delayed release tablet 1 tablet, By Mouth, Daily, # 90 tablet, 4 Refills, Maintenance, 03/01/23 17:49:00 EST, [facility], 188, cm, 01/30/23 13:26:00 EDT, Height, 126, kg, 01/30/23 13:26:00 EDT, Dry Weight Start Date: 03/01/23 Status: Ordered atorvastatin 40 mg oral tablet See Instructions, TAKE 1 TABLET BY MOUTH EVERY DAY, # 90 tablet, 1 Refills, Maintenance, 11/02/22 16:19:00 EDT, [facility], 188, cm, 10/19/22 13:16:00 EDT, Height, 122.63, kg, 11/22/21 16:37:00 EDT, Dry Weight Start Date: 11/02/22 Status: Ordered AutoCPAP 9-18 with heated humidification AutoCPAP 9-18 with heated humidification, See Instructions, # 1 each, Refills 0, Tot. Refills 0, Maintenance, use overnight and naps from [facility], 11/04/18 12:28:22 EDT, Compound Start Date: 11/04/18 Status: Ordered baclofen 5 mg oral tablet 1 tablet = 5 mg, By Mouth, 3 times a day, take it with meals x 3/day, # 12 tablet, 0 Refills, Maintenance, 05/15/22 16:24:00 EST, Tablet, [facility], Partial fill upon patient request if [...] 2 Refills, Maintenance, 04/27/22 23:43:00 EST, Cream, [facility], 1 application Topically 2 times a day,Instr:apply to penile rash, 188, cm, 04/27/22 13:44:00 EST, Heigh... Start Date: 04/27/22 Status: Ordered diazepam 10 mg oral tablet See Instructions, PRN, 1 tablet By Mouth 1 hr before MRI, # 1 tablet, Refills 2, Tot. Refills 2, Maintenance, as needed for anxiety, 01/30/23 15:02:00 EDT, Instructions Replace Required Details, Route to Pharmacy Electronically, [facility],... Start Date: 01/30/23 Status: Ordered diclofenac 1% topical gel = 2 Gm, Topically, 4 times a day, PRN for pain, (hungarian) not to exceed: 16 gm/day/joint lower limb8 gm/day/joint of upper limb 32 gm/day may interchange for cream, # 100 Gm, 11 Refills, Maintenance, 04/15/22 13:02:00 EST, Gel, [facility]... Start Date: 04/15/22 Status: Ordered docusate [...] 0 Refills, Maintenance, 09/03/22 13:58:00 EDT, Tablet, [facility], 188, cm, 07/18/22 14:01:00 EDT, Height, 122.63, kg, 11/22/21... Start Date: 09/03/22 Status: Ordered fexofenadine 60 mg oral tablet 1 tablet = 60 mg, By Mouth, 2 times a day, PRN for allergy symptoms, # 20 tablet, 0 Refills, Maintenance, 09/03/22 13:58:00 EDT, Tablet, [facility], Partial fill upon patient request if theprescription is for a schedule II opioid drug., 188... Start Date: 09/03/22 Status: Ordered fluticasone 50 mcg/inh nasal spray 0 Refills, Maintenance, 05/11/20 16:57:00 EST Start Date: 05/11/20 Status: Ordered Freestyle Tatyana Troy Freestyle Tatyana Troy, See Instructions, # 1 each, Refills 0, [...] May cause drowsiness, do notdrive after taking Australian, # 28 tablet, 0 Refills, Maintenance, 04/07/22 [...] 11 Refills, Maintenance, 11/28/21 21:27:00 EDT, Solution, [facility], 188, cm, 11/22/21 16:37:00 EDT, Height, [...] Gm, 5 Refills, Maintenance, 12/22/21 7:28:00 EDT, [facility], same Rx was sent 11/11 w/ [...] 0 Refills, Maintenance, 01/12/22 7:27:00 EDT, Tablet, [facility], 188, cm, 12/26/21 14:06:00 EDT, Height, 122.63, kg, 11/22/21 16:37:00 EDT, Dry Weight Start Date: 01/12/22 Status: Ordered losartan 100 mg oral tablet See Instructions, TAKE 1 TABLET BY MOUTH DAILY IN AM, # 30 tablet, 5 Refills, Maintenance, 02/28/2314:13:00 EST, [facility], 188, cm, 01/30/23 13:26:00 EDT, Height, 126, kg, 01/30/23 13:26:00 EDT, Dry Weight Start Date: 02/28/23 Status: Ordered LUBRIC TEARS CALE 0.4-0.3% Milliliters INSTILL 1 DROP FOUR TIMES DAILY EACH EYE Start Date: 05/11/20 Status: Ordered magnesium oxide 400 mg oral tablet 1 tablet = 400 mg, By Mouth, Daily, # 30 tablet, 11 Refills, Maintenance, 04/27/22 15:29:00 EST, Tablet, [facility], Partial fill upon patient request if the prescription is for a schedule II opioid drug., 188, cm, 04/27/22 13:44:00 EST, Hei... Start Date: 04/27/22 Status: Ordered meloxicam 15 mg oral tablet 1 tablet = 15 mg, By Mouth, Daily, Take with food PRN back pain Australian, # 14 tablet, 0 Refills, Maintenance, 11/25/21 [...] Refills, Maintenance, 11/01/22 8:40:00 EDT, ER Tablet, [facility], Partial fill upon patient request if the prescription is for a schedule II opioid drug.... Start Date: 11/01/22 Status: Ordered methadone 10 mg oral tablet See Instructions, By mouth. 2 tab in AM, 1.5 midday, 2 in evening;for pain. IDC10: G90.5 CRPS. 28 day supply. [facility]., # 154 tablet, 0 Refills, Maintenance, pain, 03/27/23 10:28:00 EST,[facility], May partial fill., 03/27/23... Start Date: 03/27/23 Status: Ordered methadone 10 mg oral tablet See Instructions, By mouth. 2 tab in AM, 1.5 midday, 2 in evening;for pain. IDC10: G90.5 CRPS. 28 day supply. [facility]., # 154 tablet, 0 Refills, Maintenance, pain, 02/27/23 10:28:00 EST,[facility], May partial fill., 02/27/23... Start Date: 02/27/23 Status: Ordered methadone 10 mg oral tablet See Instructions, By mouth. 2 tab in AM, 1.5 midday, 2 in evening;for pain. IDC10: G90.5 CRPS. 28 day supply. [facility]. Early fill before travel., # 154 tablet, 0 Refills, Maintenance, pain, 02/27/23 14:24:00 EST, [facility],... Start Date: 02/27/23 Status: Ordered methadone 10 mg oral tablet See Instructions, By mouth. 2 tab in AM, 1.5 midday, 2 in evening;for pain. IDC10: G90.5 CRPS. 28 day supply. [facility]., # 154 tablet, 0 Refills, Maintenance, pain, 04/24/23 22:44:00 EST,[facility], May partial fill., 188, cm,... [...] 1 Refills, Soft Stop, 02/16/22 23:38:00 EDT, [facility], 188, cm, 02/16/22 13:07:00 EDT, Height,122.63, [...] mL, 10 Refills, Maintenance, 04/01/23 22:39:00 EST, [facility], Assuming this is available given order was proposed so d/c liraglutide.... Start Date: 04/01/23 Status: Ordered pantoprazole 40 mg oral delayed release tablet 0 Refills, Maintenance, 02/16/22 23:33:00 EDT Start Date: 02/16/22 Status: Ordered PEN NEEDLES MIS [id number] PEN NEEDLES MIS [id number], See Instructions, # 100 each, 5 Refills, Maintenance, USE DAILY TYPE 2 DIABETES MELLITUS ON INSULIN WITH PEN, 08/25/22 16:39:00 EDT, 188, cm, 07/18/22 14:01:00 EDT, Height, 122.63, kg, 11/22/21 16:37:00 EDT, Dry Weight Start Date: 08/25/22 Status: Ordered Pen Connelly, 31 G x 8 mm BD Ultra [...] 02/18/23 19:20:00 EST, Route to Pharmacy Electronically, [facility], 188, cm, 01/30/23 13:26:00 EDT, Height, 126, kg, 01/30/23 13:26:00 EDT, Dry Weight Start Date: 02/18/23 Status: Ordered Tab-A-Kelsie oral tablet 1 tablet, By Mouth, Daily, # 30 tablet, 5 Refills, Maintenance, 12/19/22 20:41:00 EDT, [facility], 30, TAKE 1 TABLET BY MOUTH EVERY DAY, 188, cm, 10/19/22 13:16:00 EDT, Height, 122.63, kg, 11/22/21 16:37:00 EDT, Dry Weight Start Date: 12/19/22 Status: Ordered tamsulosin 0.4 mg oral capsule 0.8 mg, 2, capsule, By Mouth, Daily, dose increase, # 60 capsule, Refills 11, Tot. Refills 11, Maintenance, 07/27/22 11:57:00 EDT, Route to Pharmacy Electronically, [facility], 188, cm, 07/18/22 14:01:00 EDT, Height, 122.63, kg, 11/22/21 16:... Start Date: 07/27/22 Status: Ordered Test Strips See Instructions, # 100 each, Refills 5, Tot. Refills 5, Maintenance, Precision Ganga strips (for Freestyle Tatyana glucometer). Type 2 diabetes mellitus on insulin (E11, Z79.4). Test 2-4x/day if symptoms, or sensor concerns., 02/08/23 10:36:00 EDT, [place]... Start Date: 02/08/23 Status: Ordered Test Strips [...] Intramuscular, Every 14 days, IM or subcutaneous. [facility]., # 2 mL, 5 Refills, Maintenance, 10/27/22 17:23:00 EDT, [facility], 188, cm, 10/19/22 13:16:00 EDT, Height, 122.63, kg, 11/22/21 16:37:00 EDT, Dry Weight Start Date: 10/27/22 Status: Ordered tiZANidine 4 mg oral tablet 4 mg, 1, tablet, By Mouth, 3 times a day, PRN, # 90 tablet, Refills 11, Tot. Refills 11, Maintenance, as needed for muscle spasm, 08/18/22 8:03:00 EDT, Route to Pharmacy Electronically, [facility], 188, cm, 07/18/22 14:01:00 EDT, Height, 122... Start Date: 08/18/22 Status: Ordered Toucorina Max SoloStar 300 units/mL subcutaneous solution = 60 units, Subcutaneous Injection, Daily, # 12 mL, 11 Refills, Maintenance, 02/08/23 10:15:00 EDT,Solution, [facility], replaces Lantus due to insurance coverage, [...] tablet, 11 Refills, Maintenance, 03/24/21 21:00:00 EST, [facility], 188, cm, 03/22/21 14:17:00 EST, Height, 125.2, kg, 06/20/20 14:28:00 EST, Dry Weight Start Date: 03/24/21 Status: Ordered Victoza 18 mg/3 mL subcutaneous solution = 1.8 mg, Subcutaneous Injection, Daily, # 9 mL, 11 Refills, Maintenance, 02/08/23 10:25:00 EDT, Solution, [facility], replaces semaglutide, 188, cm, 01/30/23 13:26:00 EDT, Height, 126, kg,01/30/23 13:26:00 EDT, Dry Weight Start Date: 02/08/23 Status: Ordered Vitamin D3 1000 intl units oral tablet 1 tablet, By Mouth, Daily, # 90 tablet, 4 Refills, Maintenance, 04/01/23 22:28:00 EST, [facility], 188, cm, 01/30/23 13:26:00 EDT, Height, [...] ? chr regional pain syndrome 4s/p Modified [place] procedure, repair of conjoined tendon of extensor [...] Team Personnel Name: Shoaib An RN Position: [facility] RN Supv Member Role: Primary Care Nurse Name: Vamshi Man MD Position: [facility] Physician - Primary Care Member Role: PCP Address: Address: [address] [place] [address] Name: Luz Potter Position: [facility] Outreach Member Role: Lifetime Consulting Physician Name: Miki Rodriguez MD Position: [facility] Renal MD Member Role: Lifetime Consulting Physician Address: Address: [facility] [address] [facility] [place] [address]- Care Team Related Persons Name: BRANDON MTZ Address: home [address] [place] [address] Name: BRANDON BARKER Address: home [address] [place] [address] Name: ROSALINDA BERTRAND Address: home [address] [place] [address]
--- OUTSIDE RECORDS SUMMARY | 2023-10-11 08:18 | XMS_ITS | Continuity of Care Document ---
Author Organization [facility] Address [address] [place] [address]- Care Team Providers Care Surgical Appliances Salesperson Name Role Phone Vamshi Man MD Primary Care Physician [phone] Encounter [facility] Date(s): 08/12/20 - 09/11/20 [facility]/[address] [address]- Allergies, Adverse Reactions, Alerts Substance Reaction Severity [...] History: [facility] 4Result Comment: [01/01/2014] ORDERED BY PRISCLILA PFEIFFER MD 5Result Comment: [01/15/2013] ordered by Vamshi Man MD 6Admin Note: VIS 11/08/10 GIVEN 7Admin Note: VIS 11/08/2010 Fluzone given 8Admin Note: ADMINISTERED BY R.N. 9Admin Note: sanofi-pasteur 10Location History: [facility] 11Location History: [facility] 12Result Comment: [11/27/2017] REceived at [facility] at [place], [place]; ordered by Dr Michael Oliveira 13Location [...] 03/30/20 21:31:00 EST, Route to Pharmacy Electronically, [facility], dupilcate rx. original sent 11/04/19. remaining refills sent., 185, cm, 02/25/20 10:29:00 EST, Hei... Start Date: 03/30/20 Status: Ordered AutoCPAP 9-18 with heated humidification AutoCPAP 9-18 with heated humidification, See Instructions, # 1 each, Refills 0, Tot. Refills 0, Maintenance, use overnight and naps from [facility], 11/04/18 12:28:22 EDT, Compound Start Date: [...] capsule, 3 Refills, Maintenance, 03/30/20 21:36:00 EST, [facility], 185, cm, 02/25/20 10:29:00 EST, Height, 126.81, kg, 02/25/20 10:29:00 EST, Dry Weight Start Date: 03/30/20 Status: Ordered clotrimazole 1% topical cream 1 application, Topically, 2 times a day, apply to penile rash, # 30 Gm, 2 Refills, Maintenance, 01/07/20 14:49:00 EDT, Cream, [facility], 1 application Topically 2 times a day,Instr:apply to penile rash, 185, cm, 01/07/20 13:55:00 EDT, Francheska... Start Date: 01/07/20 Status: Ordered Cozaar 100 mg oral tablet 1 tablet = 100 mg, By Mouth, Daily in AM, # 30 tablet, 5 Refills, Maintenance, 03/15/20 17:08:00 EST, Tablet, [facility], duplicate rx. original sent 09/16/19. remaining [...] 06/25/20 15:39:00 EST, Route to Pharmacy Electronically, [facility], Partial f... Start Date: 06/25/20 Status: Ordered diclofenac 1% topical gel = 2 Gm, Topically, 4 times a day, PRN for pain, (yemeni) not to exceed: 16 gm/day/joint lower limb8 gm/day/joint of upper limb 32 gm/day may interchange for cream, # 100 Gm, 5 Refills, Maintenance,07/08/20 15:35:00 EDT, Gel, [facility] Start Date: 07/08/20 Status: Ordered docusate [...] 11 Refills, Maintenance, 02/15/20 21:05:00 EST, Solution, [facility], 185, cm, 01/07/20 13:55:00 EDT, Height, [...] mL, 3 Refills, Maintenance, 07/08/20 15:42:00 EDT, [facility], Duplicate rx-Original rx sent 06/22/20. Resent., 188, cm, 07/08/20 13:42:00 EDT, Height, 125.2, kg, 06/20/20 14:28:00 EST,... Start Date: 07/08/20 Status: Ordered latanoprost 0.005% ophthalmic solution 0 Refills, Maintenance, 05/11/20 16:57:00 EST Start Date: 05/11/20 Status: Ordered Lipitor 40 mg oral tablet 1 tablet = 40 mg, By Mouth, Daily, # 90 tablet, 3 Refills, Maintenance, 03/30/20 21:30:00 EST, [facility], duplicate rx. original sent 11/04/19. remaining [...] pain. IDC10: G90.5 CRPS. 28 day supply. [facility]., # 154 tablet, 0 Refills, Maintenance, pain, 09/14/20 0:46:00 EDT, [facility], May partial fill., 09/14/20,... Start Date: 09/14/20 Status: Ordered methadone 10 mg oral tablet See Instructions, By mouth. 2 tab in AM, 1.5 midday, 2 in evening;for pain. IDC10: G90.5 CRPS. 28 day supply. [facility]., # 154 tablet, 0 Refills, Maintenance, pain, 08/17/20 15:47:00 EDT,[facility], May partial fill., 08/17/20... Start Date: [...] Start Date: 05/15/18 Status: Ordered nystatin-triamcinolone topical 076930 u/gm-0.1% ointment 1 applicator, Topically, 3 times a day, to foreskin area FOR 3 DAYS then switch to other antifungal, # 15 Gm, 1 Refills, Maintenance, 07/08/20 15:34:00 EDT, [facility], 1 applicator Topically 3 times a [...] EDT Start Date: 08/20/18 Status: Ordered Pen Ada, 31 G x 8 mm BD Ultra [...] 03/30/20 21:31:00 EST, Route to Pharmacy Electronically, [facility], 185, cm, 02/25/20 10:29:00 EST, Height, [...] solution 0.75 mL, Intramuscular, Every 14 days, [facility], # 5 mL, 5 Refills, Maintenance, 08/29/20 21:33:00 EDT, [facility], 188, cm, 07/08/20 13:42:00 EDT, Height, 125.2, kg, 06/20/20 14:28:00 EST, Dry Weight Start Date: 08/29/20 Status: Ordered tiZANidine 4 mg oral tablet 4 mg, 1, tablet, By Mouth, 3 times a day, PRN, # 90 tablet, Refills 11, Tot. Refills 11, Maintenance, as needed for muscle spasm, 07/08/20 15:40:00 EDT, Route to Pharmacy Electronically, [facility], 188, cm, 07/08/20 13:42:00 EDT, Height, [...]
--- OUTSIDE RECORDS SUMMARY | 2023-10-11 08:18 | XMS_ITS | Continuity of Care Document ---
Author Organization [facility] Address [address] [place] [address]- Care Team Providers Care Shading Painter Name Role Phone Vamshi Man MD Primary Care Physician [phone] [facility]counter [facility] Date(s): 03/24/23 - 04/23/23 [facility]/[place] [address]- [place] Allergies, Adverse Reactions, Alerts Substance Reaction Severity Status penicillin 1 rash Resolved Latex RASH Active Other Food Allergy fresh peaches - itch y mouth, throat and lips swell Active 1rash per mother as child. Did take a penicillin for treatment of H pylori per pt w/o problem. Immunizations Given and Recorded Vaccine Date Status Refusal Reason SARS-CoV-2(COVID-19)mRNA-LNP vac([id number]) 01/30/23 Given influenza virus vaccine, inactivated 01/05/23 [...] influenza virus vaccine, inactivated 03/19/06 Give n [id number] 12y+ bivalent booster vax 02/16/22 Given pneumococcal 20-valent conjugate vaccine 02/16/22 Given Influenza Virus Vaccine (oldterm) 9 01/27/22 Recor ded Influenza Virus Vaccine (oldterm) 01/26/21 Recorde d SARS-CoV-2 mRNA (xiumzyl-pjqu-bjvfr) vax 11/11/21 Given SARS-CoV-2 (COVID-19) mRNA BNT-162b2 [...] [11/27/2017] REceived at [facility] [place], [place]; ordered by Dr Michael Oliveira 14Location [...] 11 Refills, Maintenance, 02/08/23 10:21:00 EDT, Powder, [facility], replaces Flovent due to insurance coverage, 188, cm, 01/30/23 13:26:00 EDT, Height, 126, kg, 01/30/23 13:26:00 EDT,... Start Date: 02/08/23 Status: Ordered Aspirin Low Dose 81 mg oral delayed release tablet 1 tablet, By Mouth, Daily, # 90 tablet, 4 Refills, Maintenance, 03/01/23 17:49:00 EST, [facility], 188, cm, 01/30/23 13:26:00 EDT, Height, 126, kg, 01/30/23 13:26:00 EDT, Dry Weight Start Date: 03/01/23 Status: Ordered atorvastatin 40 mg oral tablet See Instructions, TAKE 1 TABLET BY MOUTH EVERY DAY, # 90 tablet, 1 Refills, Maintenance, 11/02/22 16:19:00 EDT, [facility], 188, cm, 10/19/22 13:16:00 EDT, Height, [...] 0 Refills, Maintenance, 05/15/22 16:24:00 EST, Tablet, [facility], Partial fill upon patient request if [...] 2 Refills, Maintenance, 04/27/22 23:43:00 EST, Cream, [facility], 1 application Topically 2 times a day,Instr:apply to penile rash, 188, cm, 04/27/22 13:44:00 EST, Heigh... Start Date: 04/27/22 Status: Ordered diazepam 10 mg oral tablet See Instructions, PRN, 1 tablet By Mouth 1 hr before MRI, # 1 tablet, Refills 2, Tot. Refills 2, Maintenance, as needed for anxiety, 01/30/23 15:02:00 EDT, Instructions Replace Required Details, Route to Pharmacy Electronically, [facility],... Start Date: 01/30/23 Status: Ordered diclofenac 1% topical gel = 2 Gm, Topically, 4 times a day, PRN for pain, (kyrgyz) not to exceed: 16 gm/day/joint lower limb8 gm/day/joint of upper limb 32 gm/day may interchange for cream, # 100 Gm, 11 Refills, Maintenance, 04/15/22 13:02:00 EST, Gel, [facility]... Start Date: 04/15/22 Status: Ordered docusate [...] 0 Refills, Maintenance, 09/03/22 13:58:00 EDT, Tablet, [facility], 188, cm, 07/18/22 14:01:00 EDT, Height, 122.63, kg, 11/22/21... Start Date: 09/03/22 Status: Ordered fexofenadine 60 mg oral tablet 1 tablet = 60 mg, By Mouth, 2 times a day, PRN for allergy symptoms, # 20 tablet, 0 Refills, Maintenance, 09/03/22 13:58:00 EDT, Tablet, [facility], Partial fill upon patient request if theprescription is for a schedule II opioid drug., 188... Start Date: 09/03/22 Status: Ordered fluticasone 50 mcg/inh nasal spray 0 Refills, Maintenance, 05/11/20 16:57:00 EST Start Date: 05/11/20 Status: Ordered Freestyle Tatyana Mobile Freestyle Tatyana Mobile, See Instructions, # 1 each, Refills 0, [...] May cause drowsiness, do notdrive after taking Palauan, # 28 tablet, 0 Refills, Maintenance, 04/07/22 [...] 11 Refills, Maintenance, 11/28/21 21:27:00 EDT, Solution, [facility], 188, cm, 11/22/21 16:37:00 EDT, Height, [...] Gm, 5 Refills, Maintenance, 12/22/21 7:28:00 EDT, [facility], same Rx was sent 11/11 w/ [...] 0 Refills, Maintenance, 01/12/22 7:27:00 EDT, Tablet, [facility], 188, cm, 12/26/21 14:06:00 EDT, Height, 122.63, kg, 11/22/21 16:37:00 EDT, Dry Weight Start Date: 01/12/22 Status: Ordered losartan 100 mg oral tablet See Instructions, TAKE 1 TABLET BY MOUTH DAILY IN AM, # 30 tablet, 5 Refills, Maintenance, 02/28/2314:13:00 EST, [facility], 188, cm, 01/30/23 13:26:00 EDT, Height, 126, kg, 01/30/23 13:26:00 EDT, Dry Weight Start Date: 02/28/23 Status: Ordered LUBRIC TEARS CALE 0.4-0.3% Milliliters INSTILL 1 DROP FOUR TIMES DAILY EACH EYE Start Date: 05/11/20 Status: Ordered magnesium oxide 400 mg oral tablet 1 tablet = 400 mg, By Mouth, Daily, # 30 tablet, 11 Refills, Maintenance, 04/27/22 15:29:00 EST, Tablet, [facility], Partial fill upon patient request if the prescription is for a schedule II opioid drug., 188, cm, 04/27/22 13:44:00 EST, Hei... Start Date: 04/27/22 Status: Ordered meloxicam 15 mg oral tablet 1 tablet = 15 mg, By Mouth, Daily, Take with food PRN back pain Palauan, # 14 tablet, 0 Refills, Maintenance, 11/25/21 [...] Refills, Maintenance, 11/01/22 8:40:00 EDT, ER Tablet, [facility], Partial [...] 0 Refills, Maintenance, pain, 02/27/23 14:24:00 EST, [facility],... Start Date: 02/27/23 Status: Ordered methadone 10 mg oral tablet See Instructions, By mouth. 2 tab in AM, 1.5 midday, 2 in evening;for pain. IDC10: G90.5 CRPS. 28 day supply. [facility]., # 154 tablet, 0 Refills, Maintenance, pain, 04/24/23 22:44:00 EST,[facility], May partial fill., 188, cm,... Start [...] 1 Refills, Soft Stop, 02/16/22 23:38:00 EDT, [facility], 188, cm, 02/16/22 13:07:00 EDT, Height,122.63, [...] mL, 10 Refills, Maintenance, 04/01/23 22:39:00 EST, [facility], Assuming this is available given order was proposed so d/c liraglutide.... Start Date: 04/01/23 Status: Ordered pantoprazole 40 mg oral delayed release tablet 0 Refills, Maintenance, 02/16/22 23:33:00 EDT Start Date: 02/16/22 Status: Ordered PEN NEEDLES MIS [id number] PEN NEEDLES MIS [id number], See Instructions, # 100 each, 5 Refills, Maintenance, USE DAILY TYPE 2 DIABETES MELLITUS ON INSULIN WITH PEN, 08/25/22 16:39:00 EDT, 188, cm, 07/18/22 14:01:00 EDT, Height, 122.63, kg, 11/22/21 16:37:00 EDT, Dry Weight Start Date: 08/25/22 Status: Ordered Pen [place], 31 G x 8 mm BD Ultra [...] 02/18/23 19:20:00 EST, Route to Pharmacy Electronically, [facility], 188, cm, 01/30/23 13:26:00 EDT, Height, 126, kg, 01/30/23 13:26:00 EDT, Dry Weight Start Date: 02/18/23 Status: Ordered Tab-A-Kelsie oral tablet 1 tablet, By Mouth, Daily, # 30 tablet, 5 Refills, Maintenance, 12/19/22 20:41:00 EDT, [facility], 30, TAKE 1 TABLET BY MOUTH EVERY DAY, 188, cm, 10/19/22 13:16:00 EDT, Height, 122.63, kg, 11/22/21 16:37:00 EDT, Dry Weight Start Date: 12/19/22 Status: Ordered tamsulosin 0.4 mg oral capsule 0.8 mg, 2, capsule, By Mouth, Daily, dose increase, # 60 capsule, Refills 11, Tot. Refills 11, Maintenance, 07/27/22 11:57:00 EDT, Route to Pharmacy Electronically, [facility], 188, cm, 07/18/22 14:01:00 EDT, Height, 122.63, kg, 11/22/21 16:... Start Date: 07/27/22 Status: Ordered Test Strips See Instructions, # 100 each, Refills 5, Tot. Refills 5, Maintenance, Precision Ganga strips (for Freestyle Tatyana glucometer). Type 2 diabetes mellitus on insulin (E11, Z79.4). Test 2-4x/day if symptoms, or sensor concerns., 02/08/23 10:36:00 EDT, [place]... Start Date: 02/08/23 Status: Ordered Test Strips [...] Intramuscular, Every 14 days, IM or subcutaneous. [facility]., # 2 mL, 5 Refills, Maintenance, 10/27/22 17:23:00 EDT, [facility], 188, cm, 10/19/22 13:16:00 EDT, Height, 122.63, kg, 11/22/21 16:37:00 EDT, Dry Weight Start Date: 10/27/22 Status: Ordered tiZANidine 4 mg oral tablet 4 mg, 1, tablet, By Mouth, 3 times a day, PRN, # 90 tablet, Refills 11, Tot. Refills 11, Maintenance, as needed for muscle spasm, 08/18/22 8:03:00 EDT, Route to Pharmacy Electronically, [facility], 188, cm, 07/18/22 14:01:00 EDT, Height, 122... Start Date: 08/18/22 Status: Ordered Toucorina Max SoloStar 300 units/mL subcutaneous solution = 60 units, Subcutaneous Injection, Daily, # 12 mL, 11 Refills, Maintenance, 02/08/23 10:15:00 EDT,Solution, [facility], replaces Lantus due to insurance coverage, [...] 11 Refills, Maintenance, 03/24/21 21:00:00 EST, [facility], 188, cm, 03/22/21 14:17:00 EST, Height, 125.2, kg, 06/20/20 14:28:00 EST, Dry Weight Start Date: 03/24/21 Status: Ordered Victoza 18 mg/3 mL subcutaneous solution = 1.8 mg, Subcutaneous Injection, Daily, # 9 mL, 11 Refills, Maintenance, 02/08/23 10:25:00 EDT, Solution, [facility], replaces semaglutide, 188, cm, 01/30/23 13:26:00 EDT, Height, 126, kg,01/30/23 13:26:00 EDT, Dry Weight Start Date: 02/08/23 Status: Ordered Vitamin D3 1000 intl units oral tablet 1 tablet, By Mouth, Daily, # 90 tablet, 4 Refills, Maintenance, 04/01/23 22:28:00 EST, [facility], 188, cm, 01/30/23 13:26:00 EDT, Height, [...] ? chr regional pain syndrome 4s/p Modified Presho procedure, repair of conjoined tendon of extensor [...] Team Personnel Name: Shoaib An RN Position: [facility] RN Supv Member Role: Primary Care Nurse Name: Vamshi Man MD Position: [facility] Physician - Primary Care Member Role: PCP Address: Address: [address] [place] [address] Name: Luz Potter Position: [facility] Outreach Member Role: Lifetime Consulting Physician Name: Miki Rodriguez MD Position: [facility] Renal MD Member Role: Lifetime Consulting Physician Address: Address: [address] [facility] [place] [address]- Care Team Related Persons Name: BRANDON MTZ Address: home [address] [address] [place] [address] Name: BRANDON BARKER Address: home [address] [place] [address] Name: ROSALINDA BERTRAND Address: home [address] [place] [address]
--- OUTSIDE RECORDS SUMMARY | 2023-10-11 08:18 | XMS_ITS | Continuity of Care Document ---
Author Organization [facility] Address [address] [place] [address]- Care Team Providers Care Community Relations Assistant Name Role Phone Vamsih Man MD Primary Care Physician [phone] [facility] Date(s): 11/03/19 - 12/03/19 [facility]/[address] [address]- [place] Allergies, Adverse Reactions, Alerts Substance Reaction [...] Elissa Bertrand 11Result Comment: [11/27/2017] REceived at [facility] [place], [place]; ordered by Dr Michael Oliveira 12Location [...] 11/04/19 15:57:00 EDT, Route to Pharmacy Electronically, [facility], 185, cm, 06/24/19 13:00:00 EDT, Height, [...] 1 Refills, Maintenance, 06/24/19 15:23:00 EDT, Cream, [facility], 1 application Topically 2 times a day,Instr:apply to penile rash, 185, cm, 06/24/19 13:00:00 EDT, [facility]..[facility]ayra Start Date: 06/24/19 Status: Ordered Cozaar 100 mg oral tablet 1 tablet = 100 mg, By Mouth, Daily in AM, # 30 tablet, 11 Refills, Maintenance, 09/16/19 15:00:00 EDT, Tablet, [facility], 185, cm, 06/24/19 13:00:00 EDT, Height, 127.72, kg, 05/06/19 13:41:00 EST, Dry Weight Start Date: 09/16/19 Status: Ordered diclofenac 1% topical gel = 2 Gm, Topically, 4 times a day, PRN for pain, (icelandic) not to exceed: 16 gm/day/joint lower limb8 gm/day/joint of upper limb 32 gm/day, # 100 Gm, 1 Refills, Maintenance, 10/27/19 10:15:00 EDT, Gel, [facility], 185, cm, 06/24/19 13:00:... Start Date: [...] 1 Refills, Maintenance, 12/02/19 10:07:00 EDT, Solution, [facility], duplicate rx. remaining refills sent. original [...] tablet, 1 Refills, Maintenance, 04/15/19 5:02:00 EST, [facility], 185, cm, 02/12/19 9:28:00 EDT, Height, 123.7, kg, 08/22/18 12:59:00 EDT, Dry Weight Start Date: 04/15/19 Status: Ordered Lantus Solostar Pen 100 units/mL subcutaneous solution = 90 units, Subcutaneous Infusion, Daily at bedtime, # 15 mL, 5 Refills, Maintenance, 10/09/19 15:22:00 EDT, [facility], duplicate rx. original rx sent 03/18/19. remaining refills sent, 185,cm, 06/24/19 13:00:00 EDT, Height, 127.72, kg, 04/17... Start Date: 10/09/19 Status: Ordered latanoprost 0.005% ophthalmic solution 1 drops, Eyes, Both, Daily at bedtime, cover gap- Swage Tender Dr Broussard, # 2.5 mL, 1 Refills, Maintenance, 02/25/14 10:47:09, Ophth Solution, 1 drops Eyes, Both Daily at bedtime,Instr:cover gap-Swage Tender Dr Broussard Start Date: 02/25/14 Status: Ordered lidocaine 4% topical cream 1 application, Topically, 3 times a day, may interchange 3-5% cream or ointment or 2% gel per insurance coverage., # 60 Gm, 5 Refills, Maintenance, 10/28/19 20:11:00 EDT, [facility], 1 application Topically 3 times a day,Instr:august interchang... Start Date: 10/28/19 Status: Ordered Linzess 145 mcg oral capsule TAKE 1 CAPSULE BY MOUTH 30 MINUTES BEFORE MEAL (constipation) Start Date: 03/31/17 Status: Ordered Lipitor 40 mg oral tablet 1 tablet = 40 mg, By Mouth, Daily, # 30 tablet, 5 Refills, Maintenance, 11/04/19 15:57:00 EDT, [facility], 185, cm, 06/24/19 13:00:00 EDT, Height, [...] pain. IDC10: G90.5 CRPS. 28 day supply. [facility]., # 154 tablet, 0 Refills, Maintenance, pain, 11/10/19 12:54:00 EDT,[facility], August partial fill., 11/10/19... Start Date: 11/10/19 Status: Ordered methadone 10 mg oral tablet See Instructions, By mouth. 2 tab in AM, 1.5 midday, 2 in evening;for pain. IDC10: G90.5 CRPS. 28 day supply. [facility]., # 154 tablet, 0 Refills, Maintenance, pain, 12/08/19 12:56:00 EDT,[facility], August partial fill., 12/08/19... Start [...] Start Date: 05/15/18 Status: Ordered nystatin topical 430358 u/gm cream 1 application, Topically, 2 times a day, for fungal rash, # 30 Gm, 0 Refills, Maintenance, 09/15/2014:01:00 EDT, Cream, [facility], 1 application Topically 2 times a day,x14 days,Instr:forfungal rash, 185, cm, 06/24/19 13:00:00 EDT, Height... Start Date: 09/16/19 Stop Date: 09/30/19 Status: Ordered nystatin-triamcinolone topical 644697 u/gm-0.1% ointment 1 applicator, Topically, 3 times [...] EDT Start Date: 08/20/18 Status: Ordered Pen [place], 31 G x 8 mm BD Ultra [...] 11/29/18 11:27:43 EDT, Route to Pharmacy Electronically, [id number], [facility] Start Date: 11/29/18 Status: Ordered Testosterone Cypionate = 0.75 mg, Intramuscular, Every 14 days, Adm. today to Lot [id number] exp: 02/2020, 0 Refills, Maintenance, 11/14/18 14:06:08 EDT Start Date: 11/14/18 Status: Ordered testosterone enanthate 200 mg/mL intramuscular solution 0.75 mL, Intramuscular, Every 14 days, [facility], # 5 mL, 5 Refills, Maintenance, 05/06/19 15:06:00 EST, [facility], 185, cm, 05/06/19 13:41:00 EST, Height, 127.72, kg, 05/06/19 13:41:00 EST, Dry Weight Start Date: 05/06/19 Status: Ordered tiZANidine 4 mg oral tablet 4 mg, 1, tablet, By Mouth, 3 times a day, PRN, # 90 tablet, Refills 11, Tot. Refills 11, Maintenance, as needed for muscle spasm, 02/04/19 21:34:51 EDT, Route to Pharmacy Electronically, NCPDP_[id number], [facility] Start Date: 02/04/19 Status: Ordered Problem [...] ? chr regional pain syndrome 4s/p Modified [place] procedure, repair of conjoined tendon of extensor [...]
--- OUTSIDE RECORDS SUMMARY | 2023-10-11 08:18 | XMS_ITS | Continuity of Care Document ---
Author Organization [facility] Address [address] [place] [address]- Care Team Providers Care Express Manager Name Role Phone Vamshi Man MD Primary Care Physician Encounter [facility] [place](s): 04/15/22 - 05/15/22 [facility]/[place] [address]- [place] Allergies, Adverse Reactions, Alerts Substance Reaction Severity Status penicillin 1 rash Resolved Latex RASH Active Other Food Allergy fresh peaches - itch y mouth, throat and lips swell Active 1rash per mother as child. Did take a penicillin for treatment of H pylori per pt w/o problem. Immunizations Given and Recorded Vaccine Date Status Refusal Reason [id number] 12y+ bivalent booster vax 02/16/22 Given pneumococcal 20-valent conjugate vaccine 02/16/22 Given Influenza Virus Vaccine (oldterm) 1 01/27/22 Recor ded Influenza Virus Vaccine (oldterm) 01/26/21 Recorde d SARS-CoV-2 mRNA ([id number]) vax 11/11/21 Given SARS-CoV-2 (COVID-19) mRNA BNT-162b2 [...] [11/27/2017] REceived at [facility] at [place], [place]; ordered by Dr Michael Oliveira 14Location [...] tablet, 5 Refills, Maintenance, 11/20/21 13:03:00 EDT, [facility], 188, cm, 11/11/21 12:46:00 EDT, Height, 125.2, kg, 06/20/20 14:28:00 EST, Dry Weight Start Date: 11/20/21 Status: Ordered atorvastatin 40 mg oral tablet 1 tablet, By Mouth, Daily, # 90 tablet, 1 Refills, Maintenance, 04/10/22 12:34:00 EST, [facility], 188, cm, 02/16/22 13:07:00 EDT, Height, [...] 0 Refills, Maintenance, 05/15/22 16:24:00 EST, Tablet, [facility], Partial fill [...] 2 Refills, Maintenance, 04/27/22 23:43:00 EST, Cream, [facility], 1 application Topically 2 times a [...] 11 Refills, Maintenance, 04/15/22 13:02:00 EST, Gel, [facility]... Start Date: 04/15/22 Status: Ordered docusate [...] May cause drowsiness, do notdrive after taking Niuean, # 28 tablet, 0 Refills, Maintenance, 04/07/22 15:51:00 EST, [facility], 188, cm, 02/16/22 13:07:00 EDT, Heigh... Start [...] 11 Refills, Maintenance, 11/28/21 21:27:00 EDT, Solution, [facility], 188, cm, 11/22/21 16:37:00 EDT, Height, [...] mL, 5 Refills, Maintenance, 01/23/22 8:43:00 EDT, [facility], 188, cm, 12/26/21 14:06:00 EDT, Height, 122.63, kg, 11/22/21 16:37:00 EDT, Dry Weight Start Date: 01/23/22 Status: Ordered latanoprost 0.005% ophthalmic solution 0 Refills, Maintenance, 05/11/20 16:57:00 EST Start Date: 05/11/20 Status: Ordered lidocaine 5% topical ointment See Instructions, PRN Pain , Moderate, 1 APPLICATION TOPICALLY 3 TIMES A DAY, # 50 Gm, 5 Refills, Maintenance, 12/22/21 7:28:00 EDT, [facility], same Rx was sent 11/11 w/ [...] 0 Refills, Maintenance, 01/12/22 7:27:00 EDT, Tablet, [facility], 188, cm, 12/26/21 14:06:00 EDT, Height, 122.63, kg, 11/22/21 16:37:00 EDT, Dry Weight Start Date: 01/12/22 Status: Ordered losartan 100 mg oral tablet 1 tablet, By Mouth, Daily in AM, # 30 tablet, 5 Refills, 03/20/22 10:07:00 EST, [facility], 188, cm, 02/16/22 13:07:00 EDT, Height, 122.63, kg, 11/22/21 16:37:00 EDT, Dry Weight Start Date: 03/20/22 Status: Ordered LUBRIC TEARS CALE 0.4-0.3% Milliliters INSTILL 1 DROP FOUR TIMES DAILY EACH EYE Start Date: 05/11/20 Status: Ordered magnesium oxide 400 mg oral tablet 1 tablet = 400 mg, By Mouth, Daily, # 30 tablet, 11 Refills, Maintenance, 04/27/22 15:29:00 EST, Tablet, [facility], Partial fill upon patient request if the prescription is for a schedule II opioid drug., 188, cm, 04/27/22 13:44:00 EST, Hei... Start Date: 04/27/22 Status: Ordered meloxicam 15 mg oral tablet 1 tablet = 15 mg, By Mouth, Daily, Take with food PRN back pain Niuean, # 14 tablet, 0 Refills, Maintenance, 11/25/21 13:26:00 EDT, [facility], Partial fill upon [...] pain. IDC10: G90.5 CRPS. 28 day supply. [facility]., # 154 tablet, 0 Refills, Maintenance, pain, 07/18/22 23:44:00 EDT,[facility], May partial fill., 07/18/22... Start Date: 07/18/22 Status: Ordered methadone 10 mg oral tablet See Instructions, By mouth. 2 tab in AM, 1.5 midday, 2 in evening;for pain. IDC10: G90.5 CRPS. 28 day supply. [facility]., # 154 tablet, 0 Refills, Maintenance, pain, 05/23/22 23:44:00 EST,[facility], August partial fill., 05/23/22... Start Date: 05/23/22 Status: Ordered methadone 10 mg oral tablet See Instructions, By mouth. 2 tab in AM, 1.5 midday, 2 in evening;for pain. IDC10: G90.5 CRPS. 28 day supply. [facility]., # 154 tablet, 0 Refills, Maintenance, pain, 06/20/22 23:45:00 EST,[facility], August partial fill., 06/20/22... Start Date: 06/20/22 Status: Ordered methadone 10 mg oral tablet See Instructions, By mouth. 2 tab in AM, 1.5 midday, 2 in evening;for pain. IDC10: G90.5 CRPS. 28 day supply. [facility]., # 154 tablet, 0 Refills, Maintenance, pain, 04/25/22 23:30:00 EST,[facility], May partial fill., 04/25/22... Start Date: 04/25/22 Status: Ordered Metoclopramide = 10 mg, By Mouth, 3 times a day before meals and bedtime, 0 Refills, Maintenance, 08/20/18 13:55:26 EDT Start Date: 08/20/18 Status: Ordered metoclopramide 5 mg oral tablet 1 tablet = 5 mg, By Mouth, 4 times a day, for 4 days, 30 minutes before meals and at bedtime, # 16 tablet, 0 Refills, Acute 05/19/22 16:24:00 EST, 05/15/22 16:24:00 EST, Tablet, [facility],Partial fill upon patient request if the prescripti... Start Date: 05/15/22 Stop Date: 05/19/22 Status: Ordered multivitamin Multiple Vitamins oral tablet 1 tablet, By Mouth, Daily, B complex multivitamin, # 30 tablet, 11 Refills, Maintenance, 11/22/21 17:58:00 EDT, [facility], Partial fill upon [...] 1 Refills, Soft Stop, 02/16/22 23:38:00 EDT, [facility], 188, cm, 02/16/22 13:07:00 EDT, Height,122.63, [...] EDT Start Date: 02/16/22 Status: Ordered Pen [place], 31 G x 8 mm BD Ultra [...] mL, 11 Refills, Maintenance, 04/27/22 23:40:00 EST, [facility], 188, cm, 04/27/22 13:44:00 EST, Height, 122.63, kg, 11/22/21 16:37:00 EDT,... Start Date: 04/27/22 Status: Ordered Singulair 10 mg oral tablet 10 mg, 1, tablet, By Mouth, Daily, # 90 tablet, Refills 3, Tot. Refills 3, Maintenance, 03/30/20 21:31:00 EST, Route to Pharmacy Electronically, [facility], 185, cm, 02/25/20 10:29:00 EST, Height, 126.81, kg, 02/25/20 10:29:00 EST, Dry Weight Start Date: 03/30/20 Status: Ordered tamsulosin 0.4 mg oral capsule 0.4 mg, 1, capsule, By Mouth, Daily, Per urology, # 30 capsule, Refills 11, Tot. Refills 11, Maintenance, 02/16/22 23:29:00 EDT, Route to Pharmacy Electronically, [facility], 188, cm, 02/16/22 13:07:00 EDT, Height, [...] Intramuscular, Every 14 days, IM or subcutaneous. [facility]., # 2 mL, 5 Refills, Maintenance, 02/05/22 22:55:00 EDT, [facility], 188, cm, 12/26/21 14:06:00 EDT, Height, 122.63, kg, 11/22/21 16:37:00 EDT, Dry Weight Start Date: 02/05/22 Status: Ordered tiZANidine 4 mg oral tablet 4 mg, 1, tablet, By Mouth, 3 times a day, PRN, # 90 tablet, Refills 11, Tot. Refills 11, Maintenance, as needed for muscle spasm, 08/12/21 11:09:00 EDT, Route to Pharmacy Electronically, [facility], 188, cm, 07/27/21 8:34:00 EDT, Height, 125... Start Date: 08/12/21 Status: Ordered traZODone 100 mg oral tablet TAKE ONE TO TWO TABLETS BY MOUTH AT BEDTIME NEEDED SZayra Morales Start Date: 05/11/20 Status: Ordered Tylenol Extra Strength 500 mg oral tablet 2 tablet = 1,000 mg, By Mouth, 3 times a day, # 30 tablet, 11 Refills, Maintenance, 03/24/21 21:00:00 EST, [facility], 188, cm, 03/22/21 14:17:00 EST, Height, 125.2, kg, 06/20/20 14:28:00 EST, Dry Weight Start Date: 03/24/21 Status: Ordered Vitamin D3 1000 intl units oral tablet 1 tablet, By Mouth, Daily, for 30 days, # 30 tablet, 11 Refills, Physician Stop 10/30/22 17:07:00 EDT, 11/04/21 17:07:00 EDT, [facility], 188, cm, 09/15/21 12:49:00 EDT, Height, [...] Team Personnel Name: Shoaib An RN Position: [facility] RN Supv Member Role: Primary Care Nurse Name: Vamshi Man MD Position: [facility] Primary Care Physician Member Role: PCP Address: Address: [address] [place] [address]- Name: Miki Rodriguez MD Position: [facility] Renal MD Member Role: Lifetime Consulting Physician Address: Address: [address] [facility] [place] [address]- Care Team Related Persons Name: BRANDON MTZ Address: home [address] [place] [address] Name: BRANDON BARKER Address: home [address] [place] [address] Name: ROSALINDA BERTRAND Address: home [address] [place] [address]
--- OUTSIDE RECORDS SUMMARY | 2023-10-11 08:18 | XMS_ITS | Continuity of Care Document ---
Author Organization [facility] Address Unknown Care Team Providers Care Technician Trainee Name Role Phone Vamshi Man MD Primary Care Physician Encounter [facility] Date(s): 07/19/21 - 08/18/21 [facility] Allergies, Adverse Reactions, Alerts Substance [...] Elissa Bertrand 12Result Comment: [11/27/2017] REceived at [facility] at [place], [place]; ordered by Dr Michael Oliveira 13Location [...] tablet, 5 Refills, Maintenance, 05/14/21 20:06:00 EST, [facility], 188, cm, 03/22/21 14:17:00 EST, Height, 125.2, kg, 06/20/20 14:28:00 EST, Dry Weight Start Date: 05/14/21 Status: Ordered atorvastatin 40 mg oral tablet 1 tablet, By Mouth, Daily, # 90 tablet, 1 Refills, [facility], 188, cm, 03/22/21 14:17:00EST, Height, 125.2, [...] 2 Refills, Maintenance, 01/07/20 14:49:00 EDT, Cream, [facility], 1 application Topically 2 times a day,Instr:apply to penile rash, 185, cm, 01/07/20 13:55:00 EDT, [facility]... Start Date: 01/07/20 Status: Ordered Cozaar 100 mg oral tablet 1 tablet = 100 mg, By Mouth, Daily in AM, # 30 tablet, 11 Refills, Maintenance, 09/22/20 9:41:00 EDT, Tablet, [facility], duplicate rx. original sent 09/16/19. remaining [...] 06/25/20 15:39:00 EST, Route to Pharmacy Electronically, [facility], Partial f... Start Date: 06/25/20 Status: Ordered diclofenac 1% topical gel = 2 Gm, Topically, 4 times a day, PRN for pain, (guyanese) not to exceed: 16 gm/day/joint lower limb8 gm/day/joint of upper limb 32 gm/day may interchange for cream, # 100 Gm, 5 Refills, Maintenance,07/08/20 15:35:00 EDT, Gel, [facility] Start Date: 07/08/20 Status: Ordered docusate [...] QD Start Date: 08/20/18 Status: Ordered gabapentin 600 mg oral tablet [...] tablet, 11 Refills, Maintenance, 07/25/21 20:18:00 EDT, [facility], 188, cm, 06/28/21 16:20:00 EDT, Height, [...] mL, 11 Refills, Maintenance, 01/14/21 18:16:00 EDT, [facility], 188, cm, 12/22/20 9:45:00 EDT, Height, 125.2, kg, 06/20/20 14:28:00EST, Dry Weight Start Date: 01/14/21 Status: Ordered latanoprost 0.005% ophthalmic solution 0 Refills, Maintenance, 05/11/20 16:57:00 EST Start Date: 05/11/20 Status: Ordered lidocaine 5% topical ointment See Instructions, 1 APPLICATION TOPICALLY 3 TIMES A DAY, # 70.88 Gm, 4 Refills, Acute, [facility], 14, 1 APPLICATION TOPICALLY 3 TIMES A DAY, 188, cm, 09/22/20 8:33:00 EDT, Height, 125.2, kg, 06/20/20 14:28:00 EST, Dry Weight Start Date: 11/08/20 Status: Ordered LORazepam 1 mg oral tablet See Instructions, PRN for anxiety, 2 tablets By Mouth 1 hours prior to MRI, # 2 tablet, 1 Refills, Maintenance, 05/25/21 10:06:00 EST, Tablet, [facility], 188, cm, 05/25/21 9:26:00 EST, Height, 125.2, kg, 06/20/20 14:28:00 EST, Dry Weight Start Date: 05/25/21 Status: Ordered LUBRIC TEARS CALE 0.4-0.3% Milliliters INSTILL 1 DROP FOUR TIMES DAILY EACH EYE Start Date: 05/11/20 Status: Ordered metFORMIN 500 mg oral tablet 1 tablet, By Mouth, 2 times a day, # 60 tablet, 5 Refills, [facility], 188, cm, 06/28/21 16:20:00 EDT, Height, 125.2, kg, 06/20/20 14:28:00 EST, Dry Weight Start Date: 07/08/21 Status: Ordered methadone 10 mg oral tablet See Instructions, By mouth. 2 tab in AM, 1.5 midday, 2 in evening;for pain. IDC10: G90.5 CRPS. 28 day supply. [facility]., # 154 tablet, 0 Refills, Maintenance, pain, 07/19/21 1:23:00 EDT, [facility], August partial fill., 07/19/21,... Start Date: 07/19/21 Status: Ordered methadone 10 mg oral tablet See Instructions, By mouth. 2 tab in AM, 1.5 midday, 2 in evening;for pain. IDC10: G90.5 CRPS. 28 day supply. [facility]., # 154 tablet, 0 Refills, Maintenance, pain, 08/16/21 11:07:00 EDT,[facility], May partial fill., 08/16/21... Start Date: 08/16/21 Status: Ordered Metoclopramide = 10 mg, By Mouth, 3 times a day before meals and bedtime, 0 Refills, Maintenance, 08/20/18 13:55:26 EDT Start Date: 08/20/18 Status: Ordered multivitamin Multiple Vitamins oral tablet 1 tablet, By Mouth, Daily, B complex multivitamin, # 30 tablet, 11 Refills, Maintenance, 12/22/20 10:52:00 EDT, [facility], Partial fill upon patient request if the prescription is for a schedule II opioid drug., 1 tablet By Mouth Daily,Inst... Start Date: 12/22/20 Status: Ordered Narcan 4 mg/0.1 mL nasal spray = 4 mg, Nares, Both, Once, may repeat every 2 to 3 minutes until patient responds, # 2 each, 0 Refills, Soft Stop, 05/25/21 10:17:00 EST, [facility], 188, cm, 05/25/21 9:26:00 EST, Height, 125.2, kg, 06/20/20 14:28:00 EST, Dry Weight Start Date: 05/25/21 Status: Ordered nystatin-triamcinolone topical 065263 u/gm-0.1% ointment 1 applicator, Topically, 3 times a day, to foreskin area FOR 3 DAYS then switch to other antifungal, # 15 Gm, 1 Refills, Maintenance, 05/25/21 10:20:00 EST, [facility], 1 applicator Topically 3 times a [...] EDT Start Date: 08/20/18 Status: Ordered Pen [place], 31 G x 8 mm BD Ultra [...] mL, 11 Refills, Maintenance, 05/25/21 10:14:00 EST, [facility], Partial fill upon patient request if the prescription is for a schedule II op... Start Date: 05/25/21 Status: Ordered Singulair 10 mg oral tablet 10 mg, 1, tablet, By Mouth, Daily, # 90 tablet, Refills 3, Tot. Refills 3, Maintenance, 03/30/20 21:31:00 EST, Route to Pharmacy Electronically, [facility], 185, cm, 02/25/20 10:29:00 EST, Height, [...] solution 0.75 mL, Intramuscular, Every 14 days, [facility], # 5 mL, 5 Refills, Maintenance, 07/27/21 9:48:00 EDT, [facility], 188, cm, 07/27/21 8:34:00 EDT, Height, 125.2, kg, 06/20/20 14:28:00 EST, Dry Weight Start Date: 07/27/21 Status: Ordered tiZANidine 4 mg oral tablet 4 mg, 1, tablet, By Mouth, 3 times a day, PRN, # 90 tablet, Refills 11, Tot. Refills 11, Maintenance, as needed for muscle spasm, 08/12/21 11:09:00 EDT, Route to Pharmacy Electronically, [facility], 188, cm, 07/27/21 8:34:00 EDT, Height, 125... Start Date: 08/12/21 Status: Ordered traZODone 100 mg oral tablet TAKE ONE TO TWO TABLETS BY MOUTH AT BEDTIME NEEDED S. McAnulty Start Date: 05/11/20 Status: Ordered Tylenol Extra Strength 500 mg oral tablet 2 tablet = 1,000 mg, By Mouth, 3 times a day, # 30 tablet, 11 Refills, Maintenance, 03/24/21 21:00:00 EST, [facility], 188, cm, 03/22/21 14:17:00 EST, Height, 125.2, kg, 06/20/20 14:28:00 EST, Dry Weight Start Date: 03/24/21 Status: Ordered Vitamin D3 1000 intl units oral tablet 1 tablet, By Mouth, Daily, # 30 tablet, 5 Refills, [facility], 188, cm, 03/22/21 14:17:00EST, Height, 125.2, [...] ? chr regional pain syndrome 4s/p Modified [place] procedure, repair of conjoined tendon of [...]
--- OUTSIDE RECORDS SUMMARY | 2023-10-11 08:18 | XMS_ITS | Continuity of Care Document ---
Author Organization [facility] Address [address] [place] [address]- Care Team Providers Care Global Mobility Specialist Name Role Phone Vamshi Man MD Primary Care Physician [phone] Encounter [facility] Date(s): 01/14/20 - 02/13/20 [facility]/[address] [address]- [facility] Allergies, Adverse Reactions, Alerts Substance Reaction Severity [...] Elissa Bertrand 11Result Comment: [11/27/2017] REceived at [facility] at [place], [place]; ordered by Dr Michael Oliveira 12Location [...] 11/04/19 15:57:00 EDT, Route to Pharmacy Electronically, [facility], 185, cm, 06/24/19 13:00:00 EDT, Height, 127.72, kg, 05/06/19 13:41:00 EST, Dry Weight Start Date: 11/04/19 Status: Ordered AutoCPAP 9-18 with heated humidification AutoCPAP 9-18 with heated humidification, See Instructions, # 1 each, Refills 0, Tot. Refills 0, Maintenance, use overnight and naps from [facility], 11/04/18 12:28:22 EDT, Compound Start Date: 11/04/18 [...] 2 Refills, Maintenance, 01/07/20 14:49:00 EDT, Cream, [facility], 1 application Topically 2 times a day,Instr:apply to penile rash, 185, cm, 01/07/20 13:55:00 EDT, [facility]... Start Date: 01/07/20 Status: Ordered Cozaar 100 mg oral tablet 1 tablet = 100 mg, By Mouth, Daily in AM, # 30 tablet, 11 Refills, Maintenance, 09/16/19 15:00:00 EDT, Tablet, [facility], 185, cm, 06/24/19 13:00:00 EDT, Height, 127.72, kg, 05/06/19 13:41:00 EST, Dry Weight Start Date: 09/16/19 Status: Ordered diclofenac 1% topical gel = 2 Gm, Topically, 4 times a day, PRN for pain, (gambian) not to exceed: 16 gm/day/joint lower limb8 gm/day/joint of upper limb 32 gm/day, # 100 Gm, 1 Refills, Maintenance, 10/27/19 10:15:00 EDT, Gel, [facility], 185, cm, 06/24/19 13:00:... Start Date: [...] Every week, replaces Victoza, # 2.5 mL, 2 Refills, Maintenance, 02/12/20 8:54:00 EDT, Solution, [facility], 185, cm, 01/07/20 13:55:00 EDT, Height, 127.72, kg, 05/06/19 13:41:00 EST, Dry Weight Start Date: 02/12/20 Status: Ordered EpiPen 2-Deejay 0.3 mg injectable [...] tablet, 11 Refills, Maintenance, 01/07/20 14:40:00 EDT, [facility], 185, cm, 01/07/20 13:55:00 EDT, Height, 127.72, kg, 05/06/19 13:41:00 EST, Dry Weight Start Date: 01/07/20 Status: Ordered Lantus Solostar Pen 100 units/mL subcutaneous solution = 90 units, Subcutaneous Infusion, Daily at bedtime, # 15 mL, 5 Refills, Maintenance, 10/09/19 15:22:00 EDT, [facility], duplicate rx. original rx sent 03/18/19. remaining refills sent, 185,cm, 06/24/19 13:00:00 EDT, Height, 127.72, kg, 04/17... Start Date: 10/09/19 Status: Ordered latanoprost 0.005% ophthalmic solution 1 drops, Eyes, Both, Daily at bedtime, cover gap- [employer] Dr Broussard, # 2.5 mL, 1 Refills, Maintenance, 02/25/14 10:47:09, Ophth Solution, 1 drops Eyes, Both Daily at bedtime,Instr:cover gap-[employer] Dr Broussard Start Date: 02/25/14 Status: Ordered lidocaine 4% topical cream 1 application, Topically, 3 times a day, may interchange 3-5% cream or ointment or 2% gel per insurance coverage., # 60 Gm, 5 Refills, Maintenance, 10/28/19 20:11:00 EDT, [facility], 1 application Topically 3 times a day,Instr:may interchang... Start Date: 10/28/19 Status: Ordered Lipitor 40 mg oral tablet 1 tablet = 40 mg, By Mouth, Daily, # 30 tablet, 5 Refills, Maintenance, 11/04/19 15:57:00 EDT, [facility], 185, cm, [...] tablet, 0 Refills, Maintenance, pain, 02/03/20 21:32:00 EDT,[facility], August partial fill., 02/03/20... Start Date: 02/03/20 Status: Ordered methadone 10 mg oral tablet See Instructions, By mouth. 2 tab in AM, 1.5 midday, 2 in evening;for pain. IDC10: G90.5 CRPS. 28 day supply. [facility]., # 154 tablet, 0 Refills, Maintenance, pain, 03/02/20 21:37:00 EST,[facility], May partial fill., 03/02/20... [...] Start Date: 05/15/18 Status: Ordered nystatin-triamcinolone topical 290229 u/gm-0.1% ointment 1 applicator, Topically, 3 times a day, to foreskin area FOR 3 DAYS then switch to other antifungal, # 15 Gm, 1 Refills, Maintenance, 01/07/20 14:48:00 EDT, [facility], 1 applicator Topically 3 times a [...] EDT Start Date: 08/20/18 Status: Ordered Pen [place], 31 G x 8 mm BD Ultra [...] 11/29/18 11:27:43 EDT, Route to Pharmacy Electronically, [id number], [facility] Start Date: 11/29/18 Status: Ordered Testosterone Cypionate = 0.75 mg, Intramuscular, Every 14 days, Adm. today to Lot [id number] exp: 02/2020, 0 Refills, Maintenance, 11/14/18 14:06:08 EDT Start Date: 11/14/18 Status: Ordered testosterone enanthate 200 mg/mL intramuscular solution 0.75 mL, Intramuscular, Every 14 days, [facility], # 5 mL, 5 Refills, Maintenance, 01/06/20 11:17:00 EDT, [facility], 185, cm, 06/24/19 13:00:00 EDT, Height, 127.72, kg, 05/06/19 13:41:00 EST, Dry Weight Start Date: 01/06/20 Status: Ordered testosterone enanthate 200 mg/mL intramuscular solution 0.75 mL, Intramuscular, Every 14 days, [facility], # 5 mL, 5 Refills, Maintenance, 01/11/20 21:30:00 EDT, [facility], 185, cm, 01/07/20 13:55:00 EDT, Height, 127.72, kg, 05/06/19 13:41:00 EST, Dry Weight Start Date: 01/11/20 Status: Ordered tiZANidine 4 mg oral tablet 4 mg, 1, tablet, By Mouth, 3 times a day, PRN, # 90 tablet, Refills 11, Tot. Refills 11, Maintenance, as needed for muscle spasm, 02/04/19 21:34:51 EDT, Route to Pharmacy Electronically, [id number]_[id number], [facility] Start Date: 02/04/19 Status: Ordered Problem List Condition Effective Dates Status Health Status Inform ant Alcohol abuse - per MH evaln 2016(Confirmed) Active Allergic rhinitis(Confirmed) Active Anxiety [...] ? chr regional pain syndrome 4s/p Modified [place] procedure, repair of conjoined tendon of extensor [...]
--- OUTSIDE RECORDS SUMMARY | 2023-10-11 08:18 | XMS_ITS | Continuity of Care Document ---
Author Organization [facility] Address [address] [place] [address]- Care Team Providers Care Fire Safety Inspector Name Role Phone Vamshi Man MD Primary Care Physician Encounter [facility] Date(s): 07/18/22 - 08/17/22 [facility] [address]- [place] Allergies, Adverse Reactions, Alerts Substance Reaction Severity Status Other Food Allergy fresh peaches - itch y mouth, throat and lips swell Active penicillin 1 rash Resolved Latex RASH Active 1rash per mother as child. Did take a penicillin for treatment of H pylori per pt w/o problem. Immunizations Given and Recorded Vaccine Date Status Refusal Reason [id number] 12y+ bivalent booster vax 02/16/22 Given pneumococcal 20-valent conjugate vaccine 02/16/22 Given Influenza Virus Vaccine (oldterm) 1 01/27/22 Recor ded Influenza Virus Vaccine (oldterm) 01/26/21 Recorde d SARS-CoV-2 mRNA ([id number]) vax 11/11/21 Given SARS-CoV-2 (COVID-19) mRNA BNT-162b2 [...] REceived at [facility] [place], [place]; ordered by Dr Michael Oliveira 14Location [...] tablet, 5 Refills, Maintenance, 11/20/21 13:03:00 EDT, [facility], 188, cm, 11/11/21 12:46:00 EDT, Height, 125.2, kg, 06/20/20 14:28:00 EST, Dry Weight Start Date: 11/20/21 Status: Ordered atorvastatin 40 mg oral tablet 1 tablet, By Mouth, Daily, # 90 tablet, 1 Refills, Maintenance, 04/10/22 12:34:00 EST, [facility], 188, cm, 02/16/22 13:07:00 EDT, Height, [...] 0 Refills, Maintenance, 05/15/22 16:24:00 EST, Tablet, [facility], Partial fill upon patient request if [...] 2 Refills, Maintenance, 04/27/22 23:43:00 EST, Cream, [facility], 1 application Topically 2 times a day,Instr:apply to penile rash, 188, cm, 04/27/22 13:44:00 EST, Heigh... Start Date: 04/27/22 Status: Ordered diclofenac 1% topical gel = 2 Gm, Topically, 4 times a day, PRN for pain, ([place] zeal[place]) not to exceed: 16 gm/day/joint lower limb8 [...] May cause drowsiness, do notdrive after taking Guatemalan, # 28 tablet, 0 Refills, Maintenance, 04/07/22 15:51:00 EST, [facility], cm, 02/16/22 13:07:00 EDT, Heigh... Start [...] 11 Refills, Maintenance, 11/28/21 21:27:00 EDT, Solution, [facility], 188, cm, 11/22/21 16:37:00 EDT, Height, [...] mL, 5 Refills, Maintenance, 08/02/22 14:51:00 EDT, [facility], 188, cm, 07/18/22 14:01:00 EDT, Height, 122.63,kg, 11/22/21 16:37:00 EDT, Dry Weight Start Date: 08/02/22 Status: Ordered latanoprost 0.005% ophthalmic solution 0 Refills, Maintenance, 05/11/20 16:57:00 EST Start Date: 05/11/20 Status: Ordered lidocaine 5% topical ointment See Instructions, PRN Pain , Moderate, 1 APPLICATION TOPICALLY 3 TIMES A DAY, # 50 Gm, 5 Refills, Maintenance, 12/22/21 7:28:00 EDT, [facility], same Rx was sent 11/11 w/ [...] 0 Refills, Maintenance, 01/12/22 7:27:00 EDT, Tablet, [facility], 188, cm, 12/26/21 14:06:00 EDT, Height, 122.63, kg, 11/22/21 16:37:00 EDT, Dry Weight Start Date: 01/12/22 Status: Ordered losartan 100 mg oral tablet 1 tablet, By Mouth, Daily in AM, # 30 tablet, 5 Refills, 03/20/22 10:07:00 EST, [facility], 188, cm, 02/16/22 13:07:00 EDT, Height, 122.63, kg, 11/22/21 16:37:00 EDT, Dry Weight Start Date: 03/20/22 Status: Ordered LUBRIC TEARS CALE 0.4-0.3% [place] INSTILL 1 DROP FOUR TIMES DAILY EACH EYE Start Date: 05/11/20 Status: Ordered magnesium oxide 400 mg oral tablet 1 tablet = 400 mg, By Mouth, Daily, # 30 tablet, 11 Refills, Maintenance, 04/27/22 15:29:00 EST, Tablet, [facility], Partial fill upon patient request if the prescription is for a schedule II opioid drug., 188, cm, 04/27/22 13:44:00 EST, Hei... Start Date: 04/27/22 Status: Ordered meloxicam 15 mg oral tablet 1 tablet = 15 mg, By Mouth, Daily, Take with food PRN back pain Guatemalan, # 14 tablet, 0 Refills, Maintenance, 11/25/21 13:26:00 EDT, [facility], Partial fill upon patient request if the prescription is for a schedule II opioid drug., 188,... Start Date: 11/25/21 Stop Date: 12/09/21 Status: Ordered metFORMIN 750 mg oral tablet, extended release 1 tablet = 750 mg, By Mouth, Daily, [replaces the metformin 500mg bid], # 30 tablet, 11 Refills, Maintenance, 11/22/21 17:53:00 EDT, ER Tablet, [facility], Partial fill upon patient requestif the prescription is for a schedule II opioid alessandra... Start Date: 11/22/21 Status: Ordered methadone 10 mg oral tablet See Instructions, By mouth. 2 tab in AM, 1.5 midday, 2 in evening;for pain. IDC10: G90.5 CRPS. 28 day supply. [facility]., # 154 tablet, 0 Refills, Maintenance, pain, 10/10/22 19:56:00 EDT,[facility], August partial fill., 10/10/22... Start Date: 10/10/22 Status: Ordered methadone 10 mg oral tablet See Instructions, By mouth. 2 tab in AM, 1.5 midday, 2 in evening;for pain. IDC10: G90.5 CRPS. 28 day supply. [facility]., # 154 tablet, 0 Refills, Maintenance, pain, 09/12/22 19:56:00 EDT,[facility], August partial fill., 09/12/22... Start Date: 09/12/22 Status: Ordered methadone 10 mg oral tablet See Instructions, By mouth. 2 tab in AM, 1.5 midday, 2 in evening;for pain. IDC10: G90.5 CRPS. 28 day supply. [facility]., # 154 tablet, 0 Refills, Maintenance, pain, 08/15/22 19:56:00 EDT,[facility], August partial fill., 08/15/22... Start Date: 08/15/22 Status: Ordered methadone 10 mg oral tablet See Instructions, By mouth. 2 tab in AM, 1.5 midday, 2 in evening;for pain. IDC10: G90.5 CRPS. 28 day supply. [facility]., # 154 tablet, 0 Refills, Maintenance, pain, 04/25/22 23:30:00 EST,[facility], August partial fill., 04/25/22... Start Date: 04/25/22 Status: Ordered Metoclopramide = 10 mg, By Mouth, 3 times a day before meals and bedtime, 0 Refills, Maintenance, 08/20/18 13:55:26 EDT Start Date: 08/20/18 Status: Ordered multivitamin Multiple Vitamins oral tablet 1 tablet, By Mouth, Daily, B complex multivitamin, # 30 tablet, 11 Refills, Maintenance, 11/22/21 17:58:00 EDT, [facility], Partial fill upon patient request if [...] 1 Refills, Soft Stop, 02/16/22 23:38:00 EDT, [facility], 188, cm, 02/16/22 13:07:00 EDT, Height,122.63, [...] EDT Start Date: 02/16/22 Status: Ordered Pen [place], 31 G x 8 mm BD Ultra [...] mL, 11 Refills, Maintenance, 04/27/22 23:40:00 EST, [facility], 188, cm, 04/27/22 13:44:00 EST, Height, 122.63, kg, 11/22/21 16:37:00 EDT,... Start Date: 04/27/22 Status: Ordered Singulair 10 mg oral tablet 10 mg, 1, tablet, By Mouth, Daily, # 90 tablet, Refills 3, Tot. Refills 3, Maintenance, 03/30/20 21:31:00 EST, Route to Pharmacy Electronically, [facility], 185, cm, 02/25/20 10:29:00 EST, Height, 126.81, kg, 02/25/20 10:29:00 EST, Dry Weight Start Date: 03/30/20 Status: Ordered tamsulosin 0.4 mg oral capsule 0.8 mg, 2, capsule, By Mouth, Daily, dose increase, # 60 capsule, Refills 11, Tot. Refills 11, Maintenance, 07/27/22 11:57:00 EDT, Route to Pharmacy Electronically, [facility], 188, cm, 07/18/22 14:01:00 EDT, Height, [...] Intramuscular, Every 14 days, IM or subcutaneous. [facility]., # 2 mL, 5 Refills, Maintenance, 07/26/22 21:21:00 EDT, [facility], 188, cm, 07/18/22 14:01:00 EDT, Height, 122.63, kg, 11/22/21 16:37:00 EDT, Dry Weight Start Date: 07/26/22 Status: Ordered tiZANidine 4 mg oral tablet 4 mg, 1, tablet, By Mouth, 3 times a day, PRN, # 90 tablet, Refills 11, Tot. Refills 11, Maintenance, as needed for muscle spasm, 08/12/21 11:09:00 EDT, Route to Pharmacy Electronically, [facility], 188, cm, 07/27/21 8:34:00 EDT, Height, 125... Start Date: 08/12/21 Status: Ordered traZODone 100 mg oral tablet TAKE ONE TO TWO TABLETS BY MOUTH AT BEDTIME NEEDED SZayra Morales Start Date: 05/11/20 Status: Ordered Tylenol Extra Strength 500 mg oral tablet 2 tablet = 1,000 mg, By Mouth, 3 times a day, # 30 tablet, 11 Refills, Maintenance, 03/24/21 21:00:00 EST, [facility], 188, cm, 03/22/21 14:17:00 EST, Height, 125.2, kg, 06/20/20 14:28:00 EST, Dry Weight Start Date: 03/24/21 Status: Ordered Vitamin D3 1000 intl units oral tablet 1 tablet, By Mouth, Daily, for 30 days, # 30 tablet, 11 Refills, Physician Stop 10/30/22 17:07:00 EDT, 11/04/21 17:07:00 EDT, [facility], 188, cm, 09/15/21 12:49:00 EDT, Height, 125.2, kg, 06/20/20 14:28:00 EST, Dry Weight Start Date: 11/04/21 Stop Date: 10/30/22 Status: Ordered Problem List Condition Confirmation Course Effective Dates Status Health Status Informant Alcohol abuse - per CONNIE bushraperez 2015 Confirmed Active Allergic rhinitis Confirmed [...] ? chr regional pain syndrome 4s/p Modified [place] procedure, repair of conjoined tendon of [...] Care Physician Member Role: PCP Address: Address: [address] [place] [address] Name: Miki Rodriguez MD Position: [facility] Renal MD Member Role: Lifetime Consulting Physician Address: Address: [address] [place] [address] [address] [facility], [address] Care Team Related Persons Name: BRANDON MTZ Address: home [address] [address] Name: BRANDON BARKER Address: home [address] [place] [address] Name: ROSALINDA BERTRAND Address: home [address] [place] [address]
--- OUTSIDE RECORDS SUMMARY | 2023-10-11 08:18 | XMS_ITS | Continuity of Care Document ---
Author Organization [facility] Address Unknown Care Team Providers Care Delivery Department Supervisor Name Role Phone Vamshi Man MD Primary Care Physician Encounter [facility] [place] Date(s): 08/12/21 - 09/28/21 [facility] Attending Physician: Not on Staff, [...] at [facility] [place], [place]; ordered by Dr Michael Oliveira 13Location [...] tablet, 5 Refills, Maintenance, 05/14/21 20:06:00 EST, [facility], 188, cm, 03/22/21 14:17:00 EST, Height, 125.2, kg, 06/20/20 14:28:00 EST, Dry Weight Start Date: 05/14/21 Status: Ordered atorvastatin 40 mg oral tablet 1 tablet, By Mouth, Daily, # 90 tablet, 1 Refills, [facility], 188, cm, 03/22/21 14:17:00EST, Height, 125.2, kg, 06/20/20 14:28:00 EST, Dry Weight Start Date: 04/13/21 Status: Ordered AutoCPAP 9-18 with heated humidification AutoCPAP 9-18 with heated humidification, See Instructions, # 1 each, Refills 0, Tot. Refills 0, Maintenance, use overnight and naps from [facility], 11/04/18 12:28:22 EDT, Compound Start Date: [...] 2 Refills, Maintenance, 09/15/21 14:49:00 EDT, Cream, [facility], 1 application Topically 2 times a day,Instr:apply to penile rash, 188, cm, 09/15/21 12:49:00 EDT, Hechidi... Start Date: 09/15/21 Status: Ordered Cozaar 100 mg oral tablet 1 tablet = 100 mg, By Mouth, Daily in AM, # 30 tablet, 11 Refills, Maintenance, 09/22/20 9:41:00 EDT, Tablet, [facility], duplicate rx. original sent 09/16/19. remaining [...] 06/25/20 15:39:00 EST, Route to Pharmacy Electronically, [facility], Partial f... Start Date: 06/25/20 Status: Ordered diclofenac 1% topical gel = 2 Gm, Topically, 4 times a day, PRN for pain, ([place]ol[place]) not to exceed: 16 gm/day/joint lower limb8 gm/day/joint of upper limb 32 gm/day may interchange for cream, # 100 Gm, 5 Refills, Maintenance,07/08/20 15:35:00 EDT, Gel, [facility] Start Date: 07/08/20 Status: Ordered docusate [...] 08/22/21 16:07:00 EDT, Route to Pharmacy Electronically, [facility], Partial fill upon patient request i... Start Date: 08/22/21 Status: Ordered gabapentin 600 mg oral tablet 1 tablet = 600 mg, By Mouth, Daily at bedtime, for sciatic pain, # 25 tablet, 1 Refills, Maintenance, 09/15/21 14:34:00 EDT, [facility], Partial fill upon [...] tablet, 11 Refills, Maintenance, 07/25/21 20:18:00 EDT, [facility], 188, cm, 06/28/21 16:20:00 EDT, Height, [...] mL, 11 Refills, Maintenance, 01/14/21 18:16:00 EDT, [facility], 188, cm, 12/22/20 9:45:00 EDT, Height, 125.2, kg, 06/20/20 14:28:00EST, Dry Weight Start Date: 01/14/21 Status: Ordered latanoprost 0.005% ophthalmic solution 0 Refills, Maintenance, 05/11/20 16:57:00 EST Start Date: 05/11/20 Status: Ordered lidocaine 5% topical ointment See Instructions, PRN Pain , Moderate, 1 APPLICATION TOPICALLY 3 TIMES A DAY, # 50 Gm, 5 Refills, Maintenance, 08/29/21 22:40:00 EDT, [facility], 1 APPLICATION TOPICALLY 3 TIMES A DAY,PRN:Pain , Moderate, 188, cm, 08/26/21 9:59:00 EDT, [facility]... Start Date: 08/29/21 Status: Ordered LORazepam 1 mg oral tablet See Instructions, PRN for anxiety, 2 tablets By Mouth 1 hours prior to MRI, # 2 tablet, 1 Refills, Maintenance, 05/25/21 10:06:00 EST, Tablet, [facility], 188, cm, 05/25/21 9:26:00 EST, Height, [...] 1 Refills, Maintenance, 09/15/21 14:35:00 EDT, Tablet, [facility], Partial fill upon patient request if the prescription is for a schedule II opioid... Start Date: 09/15/21 Status: Ordered metFORMIN 500 mg oral tablet 1 tablet, By Mouth, 2 times a day, # 60 tablet, 5 Refills, [facility], 188, cm, 06/28/21 16:20:00 EDT, Height, 125.2, kg, 06/20/20 14:28:00 EST, Dry Weight Start Date: 07/08/21 Status: Ordered methadone 10 mg oral tablet See Instructions, By mouth. 2 tab in AM, 1.5 midday, 2 in evening;for pain. IDC10: G90.5 CRPS. 28 day supply. [facility]., # 154 tablet, 0 Refills, Maintenance, pain, 09/13/21 22:42:00 EDT,[facility], May partial fill., 09/13/21... Start Date: 09/13/21 Status: Ordered methadone 10 mg oral tablet See Instructions, By mouth. 2 tab in AM, 1.5 midday, 2 in evening;for pain. IDC10: G90.5 CRPS. 28 day supply. [facility]., # 154 tablet, 0 Refills, Maintenance, pain, 10/11/21 14:47:00 EDT,[facility], May partial fill., 10/11/21... Start Date: 10/11/21 Status: Ordered Metoclopramide = 10 mg, By Mouth, 3 times a day before meals and bedtime, 0 Refills, Maintenance, 08/20/18 13:55:26 EDT Start Date: 08/20/18 Status: Ordered multivitamin Multiple Vitamins oral tablet 1 tablet, By Mouth, Daily, B complex multivitamin, # 30 tablet, 11 Refills, Maintenance, 12/22/20 10:52:00 EDT, [facility], Partial fill upon patient request if the prescription is for a schedule II opioid drug., 1 tablet By Mouth Daily,Inst... Start Date: 12/22/20 Status: Ordered Narcan 4 mg/0.1 mL nasal spray = 4 mg, Nares, Both, Once, may repeat every 2 to 3 minutes until patient responds, # 2 each, 0 Refills, Soft Stop, 05/25/21 10:17:00 EST, [facility], 188, cm, 05/25/21 9:26:00 EST, Height, 125.2, kg, 06/20/20 14:28:00 EST, Dry Weight Start Date: 05/25/21 Status: Ordered nystatin-triamcinolone topical 875159 u/gm-0.1% ointment 1 applicator, Topically, 3 times a day, to foreskin area FOR 3 DAYS then switch to other antifungal, # 15 Gm, 1 Refills, Maintenance, 05/25/21 10:20:00 EST, [facility], 1 applicator Topically 3 times a [...] [place] Start Date: 08/20/18 Status: Ordered Pen [place], 31 G x 8 mm BD Ultra [...] each, 11 Refills, Maintenance, 09/15/21 14:29:00 EDT, [facility], Partial fill upon patient request if the prescription is for a schedule II opioid drug., 188, cm, 09/15/21 12:4... Start Date: 09/15/21 Status: Ordered Singulair 10 mg oral tablet 10 mg, 1, tablet, By Mouth, Daily, # 90 tablet, Refills 3, Tot. Refills 3, Maintenance, 03/30/20 21:31:00 EST, Route to Pharmacy Electronically, [facility], 185, cm, 02/25/20 10:29:00 EST, Height, [...] solution 0.75 mL, Intramuscular, Every 14 days, [facility], # 5 mL, 5 Refills, Maintenance, 07/27/21 9:48:00 EDT, [facility], 188, cm, 07/27/21 8:34:00 EDT, Height, 125.2, kg, 06/20/20 14:28:00 EST, Dry Weight Start Date: 07/27/21 Status: Ordered tiZANidine 4 mg oral tablet 4 mg, 1, tablet, By Mouth, 3 times a day, PRN, # 90 tablet, Refills 11, Tot. Refills 11, Maintenance, as needed for muscle spasm, 08/12/21 11:09:00 EDT, Route to Pharmacy Electronically, [facility], 188, cm, 07/27/21 8:34:00 EDT, Height, 125... Start Date: 08/12/21 Status: Ordered traZODone 100 mg oral tablet TAKE ONE TO TWO TABLETS BY MOUTH AT BEDTIME NEEDED SZayra Morales Start Date: 05/11/20 Status: Ordered Tylenol Extra Strength 500 mg oral tablet 2 tablet = 1,000 mg, By Mouth, 3 times a day, # 30 tablet, 11 Refills, Maintenance, 03/24/21 21:00:00 EST, [facility], 188, cm, 03/22/21 14:17:00 EST, Height, 125.2, kg, 06/20/20 14:28:00 EST, Dry Weight Start Date: 03/24/21 Status: Ordered Vitamin D3 1000 intl units oral tablet 1 tablet, By Mouth, Daily, # 30 tablet, 5 Refills, [facility], 188, cm, 03/22/21 14:17:00EST, Height, 125.2, [...]
--- OUTSIDE RECORDS SUMMARY | 2023-10-11 08:18 | XMS_ITS | Continuity of Care Document ---
Author Organization [facility] Address [address] [place] [id number]- Care Team Providers Care C D Area Supervisor Name Role Phone Vamshi Man MD Primary Care Physician [phone] Encounter [facility] Date(s): 08/01/23 - 08/31/23 [facility]/[address] [address]- Allergies, Adverse Reactions, Alerts Substance Reaction Severity Status penicillin 1 rash Resolved penicillins Active Latex RASH Active Other Food Allergy fresh peaches - itch y mouth, throat and lips swell Active 1rash per mother as child. Did take a penicillin for treatment of H pylori per pt w/o problem. Immunizations Given and Recorded Vaccine Date Status Refusal Reason SARS-CoV-2(COVID-19)mRNA-LNP vac([id number]) 01/30/23 Given influenza virus vaccine, inactivated 01/05/23 [...] influenza virus vaccine, inactivated 03/19/06 Give n [id number] 12y+ bivalent booster vax 02/16/22 Given pneumococcal 20-valent conjugate vaccine 02/16/22 Given Influenza Virus Vaccine (oldterm) 9 01/27/22 Recor ded Influenza Virus Vaccine (oldterm) 01/26/21 Recorde d SARS-CoV-2 mRNA ([id number]) vax 11/11/21 Given SARS-CoV-2 (COVID-19) mRNA BNT-162b2 [...] Elissa Bertrand 13Result Comment: [11/27/2017] REceived at [facility] [place], [place]; ordered by Dr Michael Oliveira 14Location [...] 11 Refills, Maintenance, 02/08/23 10:21:00 EDT, Powder, [facility], replaces Flovent due to insurance coverage, 188, cm, 01/30/23 13:26:00 EDT, Height, 126, kg, 01/30/23 13:26:00 EDT,... Start Date: 02/08/23 Status: Ordered Aspirin Low Dose 81 mg oral delayed release tablet 1 tablet, By Mouth, Daily, # 90 tablet, 4 Refills, Maintenance, 03/01/23 17:49:00 EST, [facility], 188, cm, 01/30/23 13:26:00 EDT, Height, 126, kg, 01/30/23 13:26:00 EDT, Dry Weight Start Date: 03/01/23 Status: Ordered atorvastatin 40 mg oral tablet 1 tablet, By Mouth, Daily, # 90 tablet, 1 Refills, Maintenance, 07/25/23 20:12:00 EDT, [facility], 188, cm, 07/05/23 11:09:00 EDT, Height, [...] 2 Refills, Maintenance, 04/27/22 23:43:00 EST, Cream, [facility], 1 application Topically 2 [...] Replace Required Details, Route to Pharmacy Electronically, [facility],... Start Date: 01/30/23 Status: Ordered diclofenac 1% topical gel = 2 Gm, Topically, 4 times a day, PRN for pain, (latvian) not to exceed: 16 gm/day/joint lower limb8 gm/day/joint of upper limb 32 gm/day may interchange for cream, # 100 Gm, 11 Refills, Maintenance, 04/15/22 13:02:00 EST, Gel, [facility]... Start Date: 04/15/22 Status: Ordered docusate [...] 16 Gm, 11 Refills, Maintenance, 07/09/23 11:37:00EDT, [place], [facility], Partial fill upon patient request if the prescription is for a schedule II opioid drug., 2 sprays Nares, Both 2 times... Start Date: 07/09/23 Status: Ordered Freestyle Tatyana Oxford Freestyle Tatyana Oxford, See Instructions, # 1 each, Refills 0, [...] days., 08/11/23 11:15:00 EDT, Recently sent to [facility]... Start Date: 08/11/23 [...] 11 Refills, Maintenance, 11/28/21 21:27:00 EDT, Solution, [facility], 188, cm, 11/22/21 16:37:00 EDT, Height, [...] Gm, 5 Refills, Maintenance, 12/22/21 7:28:00 EDT, [facility], same Rx was sent 11/11 w/ [...] 3 Refills, Maintenance, 05/07/23 16:31:00 EST, Tablet, [facility], 188, cm, 04/26/23 13:06:00 EST, Height, 126.09, kg, 04/26/23 13:06:00 EST, Dry Weight Start Date: 05/07/23 Status: Ordered metFORMIN 750 mg oral tablet, extended release 1 tablet = 750 mg, By Mouth, Daily, [replaces the metformin 500mg bid], # 30 tablet, 5 Refills, Maintenance, 05/15/23 8:10:00 EST, ER Tablet, [facility], Partial fill upon patient request if the prescription is for a schedule II opioid drug.... Start Date: 05/15/23 Status: Ordered methadone 10 mg oral tablet See Instructions, By mouth. 2 tab in AM, 1.5 midday, 2 in evening;for pain. IDC10: G90.5 CRPS. 28 day supply. [facility]., # 154 tablet, 0 Refills, Maintenance, pain, 10/09/23 21:08:00 EDT,[facility], May partial fill., 0... Start Date: 10/09/23 Status: Ordered methadone 10 mg oral tablet See Instructions, By mouth. 2 tab in AM, 1.5 midday, 2 in evening;for pain. IDC10: G90.5 CRPS. 28 day supply. [facility]., # 154 tablet, 0 Refills, Maintenance, pain, 09/11/23 21:08:00 EDT,[facility], May partial fill., 0... Start Date: 09/11/23 Status: Ordered methadone 10 mg oral tablet See Instructions, By mouth. 2 tab in AM, 1.5 midday, 2 in evening;for pain. IDC10: G90.5 CRPS. 28 day supply. [facility]., # 154 tablet, 0 Refills, Maintenance, pain, 08/14/23 21:08:00 EDT,[facility], May partial fill., 0... Start Date: 08/14/23 Status: Ordered methadone 10 mg oral tablet See Instructions, By mouth. 2 tab in AM, 1.5 midday, 2 in evening;for pain. IDC10: G90.5 CRPS. 28 day supply. [facility]., # 154 tablet, 0 Refills, Maintenance, pain, 04/24/23 22:44:00 EST,[facility], May partial fill., 188, cm,... Start Date: 04/24/23 Status: Ordered Mounjaro 10 mg/0.5 mL subcutaneous solution = 10 mg, Subcutaneous Infusion, Every 7 days, please interchange with other Rx for 7.5 mg if unavailable., # 4 each, 11 Refills, Maintenance, 07/26/23 14:10:00 EDT, [facility], Partial fillupon patient request if the prescription is for a s... Start Date: 07/26/23 Status: Ordered Mounjaro 7.5 mg/0.5 mL subcutaneous solution = 7.5 mg, Subcutaneous Injection, Every week, rotate injection sites, # 4 each, 5 Refills, Maintenance, 07/07/23 17:04:00 EDT, Solution, [facility], should still have a couple months [...] EDT Start Date: 02/16/22 Status: Ordered Pen [place], 31 G x 8 mm BD Ultra [...] 02/18/23 19:20:00 EST, Route to Pharmacy Electronically, [facility], 188, cm, 01/30/23 13:26:00 EDT, Height, [...] tablet, 5 Refills, Maintenance, 07/09/23 11:09:00 EDT, [facility], 30, 1 tablet By Mouth Daily, 188, cm, 07/05/23 11:09:00 EDT, Height, 126.09, kg, 04/26/23 13:06:00 EST, Dry Weight Start Date: 07/09/23 Status: Ordered tamsulosin 0.4 mg oral capsule 0.8 mg, 2, capsule, By Mouth, Daily, dose increase, # 180 capsule, Refills 11, Tot. Refills 11, Maintenance, 07/26/23 14:15:00 EDT, Route to Pharmacy Electronically, [facility], 188, cm, 07/26/23 13:30:00 EDT, Height, 121.81, kg, 07/26/23 13... Start Date: 07/26/23 Status: Ordered Test Strips See Instructions, # 100 each, Refills 5, Tot. Refills 5, Maintenance, Precision Ganga strips (for Freestyle Tatyana glucometer). Type 2 diabetes mellitus on insulin (E11, Z79.4). Test 2-4x/day if symptoms, or sensor concerns., 02/08/23 10:36:00 EDT, [place]... Start Date: 02/08/23 Status: Ordered Test Strips [...] Intramuscular, Every 14 days, IM or subcutaneous. [facility]., # 2 mL, 5 Refills, Maintenance, 08/11/23 11:20:00 EDT, [facility], Last sent to [facility]. Sending now to [facility] due to pt request msg [email or web address]... Start Date: 08/11/23 Status: Ordered tiZANidine 4 mg oral tablet 4 mg, 1, tablet, By Mouth, 3 times a day, PRN, # 90 tablet, Refills 11, Tot. Refills 11, Maintenance, as needed for muscle spasm, 08/18/22 8:03:00 EDT, Route to Pharmacy Electronically, [facility], 188, cm, 07/18/22 14:01:00 EDT, Height, 122... Start Date: 08/18/22 Status: Ordered Toujeo Max SoloStar 300 units/mL subcutaneous solution = 70 units, Subcutaneous Injection, Daily, decrease frin 90u, # 12 mL, 11 Refills, Maintenance, 07/26/23 14:19:00 EDT, Solution, [facility], replaces Lantus due to insurance coverage, 188, cm, 07/26/23 13:30:00 EDT, Height, 121.81, kg, 07/25... Start Date: 07/26/23 Status: Ordered Tylenol Extra Strength 500 mg oral tablet 2 tablet = 1,000 mg, By Mouth, 3 times a day, # 30 tablet, 11 Refills, Maintenance, 03/24/21 21:00:00 EST, [facility], 188, cm, 03/22/21 14:17:00 EST, Height, 125.2, kg, 06/20/20 14:28:00 EST, Dry Weight Start Date: 03/24/21 Status: Ordered Vitamin D3 1000 intl units oral tablet 1 tablet, By Mouth, Daily, # 90 tablet, 4 Refills, Maintenance, 04/01/23 22:28:00 EST, [facility], 188, cm, 01/30/23 13:26:00 EDT, Height, [...] Team Personnel Name: Shoaib An RN Position: [facility] RN Supv Member Role: Primary Care Nurse Name: Donovan DE LOS SANTOS, Vamshi Oshea Position: [facility] Physician - Primary Care Member Role: PCP Address: Address: [address] [place] [address]- Name: Luz Potter Position: [facility] Outreach Member Role: Lifetime Consulting Physician Name: Miki Rodriguez MD Position: [facility] Renal MD Member Role: Lifetime Consulting Physician Address: Address: [address] [facility], [place] [address]- Care Team Related Persons Name: BRANDON MTZ Address: home [address] [place] [address] Name: BRANDON BARKER Address: home [address] [place] [address] Name: ROSALINDA BERTRAND
--- OUTSIDE RECORDS SUMMARY | 2023-10-11 08:18 | XMS_ITS | Continuity of Care Document ---
Author Organization [facility] Address [address] [place] [address]- Care Team Providers Care Environmental Change Analyst Name Role Phone Donovna DE LOS SANTOS, Vamshi Oshea Primary Care Physician Encounter [facility] Date(s): 05/09/23 - 05/16/23 [facility] [address], [place] [address] Attending Physician: Joseph Cantor MD Referring Physician: Michael Ceron MD Allergies, Adverse Reactions, Alerts Substance Reaction Severity Status penicillin 1 rash Resolved penicillins Active Latex RASH Active Other Food Allergy fresh peaches - itch y mouth, throat and lips swell Active 1rash per mother as child. Did take a penicillin for treatment of H pylori per pt w/o problem. Immunizations Given and Recorded Vaccine Date Status Refusal Reason SARS-CoV-2(COVID-19)mRNA-LNP vac([id number]) 01/30/23 Given influenza virus vaccine, inactivated 01/05/23 [...] influenza virus vaccine, inactivated 03/19/06 Give n [id number] 12y+ bivalent booster vax 02/16/22 Given pneumococcal 20-valent conjugate vaccine 02/16/22 Given Influenza Virus Vaccine (oldterm) 9 01/27/22 Recor ded Influenza Virus Vaccine (oldterm) 01/26/21 Recorde d SARS-CoV-2 mRNA ([id number]) vax 11/11/21 Given SARS-CoV-2 (COVID-19) mRNA BNT-162b2 [...] Elissa Bertrand 13Result Comment: [11/27/2017] REceived at [facility] [place], [place]; ordered by Dr Michael Oliveira 14Location [...] 11 Refills, Maintenance, 02/08/23 10:21:00 EDT, Powder, [facility], replaces Flovent due to insurance coverage, 188, cm, 01/30/23 13:26:00 EDT, Height, 126, kg, 01/30/23 13:26:00 EDT,... Start Date: 02/08/23 Status: Ordered Aspirin Low Dose 81 mg oral delayed release tablet 1 tablet, By Mouth, Daily, # 90 tablet, 4 Refills, Maintenance, 03/01/23 17:49:00 EST, [facility], 188, cm, 01/30/23 13:26:00 EDT, Height, 126, kg, 01/30/23 13:26:00 EDT, Dry Weight Start Date: 03/01/23 Status: Ordered atorvastatin 40 mg oral tablet See Instructions, TAKE 1 TABLET BY MOUTH EVERY DAY, # 90 tablet, 0 Refills, Maintenance, 05/01/23 21:18:00 EST, [facility], 188, cm, 04/26/23 13:06:00 EST, Height, 126.09, kg, 04/26/23 13:06:00 EST, Dry Weight Start Date: 05/01/23 Status: Ordered AutoCPAP 9-18 with heated humidification AutoCPAP 9-18 with heated humidification, See Instructions, # 1 each, Refills 0, Tot. Refills 0, Maintenance, use overnight and naps from [facility], 11/04/18 12:28:22 EDT, Compound Start Date: 11/04/18 [...] 2 Refills, Maintenance, 04/27/22 23:43:00 EST, Cream, [facility], 1 application Topically 2 times a day,Instr:apply to penile rash, 188, cm, 04/27/22 13:44:00 EST, Heigh... Start Date: 04/27/22 Status: Ordered diazepam 10 mg oral tablet See Instructions, PRN, 1 tablet By Mouth 1 hr before MRI, # 1 tablet, Refills 2, Tot. Refills 2, Maintenance, as needed for anxiety, 01/30/23 15:02:00 EDT, Instructions Replace Required Details, Route to Pharmacy Electronically, [facility],... Start Date: 01/30/23 Status: Ordered diclofenac 1% topical gel = 2 Gm, Topically, 4 times a day, PRN for pain, (cymraes) not to exceed: 16 gm/day/joint lower limb8 gm/day/joint of upper limb 32 gm/day may interchange for cream, # 100 Gm, 11 Refills, Maintenance, 04/15/22 13:02:00 EST, Gel, [facility]... Start Date: 04/15/22 Status: Ordered docusate [...] Start Date: 05/11/20 Status: Ordered Freestyle Tatyana Birchwood Freestyle Tatyana Birchwood, See Instructions, # 1 each, Refills 0, [...] 11 Refills, Maintenance, 11/28/21 21:27:00 EDT, Solution, [facility], 188, cm, 11/22/21 16:37:00 EDT, Height, [...] Gm, 5 Refills, Maintenance, 12/22/21 7:28:00 EDT, [facility], same Rx was sent 11/11 w/ [...] 0 Refills, Maintenance, 01/12/22 7:27:00 EDT, Tablet, [facility], 188, cm, 12/26/21 14:06:00 EDT, Height, [...] Daily, Take with food PRN back pain Belarusian, # 14 tablet, 0 Refills, Maintenance, 11/25/21 [...] tablet, 0 Refills, Maintenance, pain, 06/19/23 23:14:00 EST,[facility], May partial fill., 06/19/23... Start Date: 06/19/23 Status: Ordered methadone 10 mg oral tablet See Instructions, By mouth. 2 tab in AM, 1.5 midday, 2 in evening;for pain. IDC10: G90.5 CRPS. 28 day supply. [facility]., # 154 tablet, 0 Refills, Maintenance, pain, 05/22/23 23:14:00 EST,[facility], May partial fill., 05/22/23... Start Date: 05/22/23 Status: Ordered methadone 10 mg oral tablet See Instructions, By mouth. 2 tab in AM, 1.5 midday, 2 in evening;for pain. IDC10: G90.5 CRPS. 28 day supply. [facility]., # 154 tablet, 0 Refills, Maintenance, pain, 07/17/23 23:14:00 EDT,[facility], August partial fill., 07/17/23... Start Date: 07/17/23 Status: Ordered methadone 10 mg oral tablet See Instructions, By mouth. 2 tab in AM, 1.5 midday, 2 in evening;for pain. IDC10: G90.5 CRPS. 28 day supply. [facility]., # 154 tablet, 0 Refills, Maintenance, pain, 04/24/23 22:44:00 EST,[facility], August partial fill., 188, cm,... Start Date: 04/24/23 Status: Ordered Metoclopramide = 10 mg, By Mouth, 3 times a day before meals and bedtime, 0 Refills, Maintenance, 08/20/18 13:55:26 EDT Start Date: 08/20/18 Status: Ordered Mounjaro 7.5 mg/0.5 mL subcutaneous solution = 7.5 mg, Subcutaneous Injection, Every week, rotate injection sites, # 4 each, 5 Refills, Maintenance, 04/27/23 0:18:00 EST, Solution, [facility], please d/c all prior Rx/refills for semaglutide, liraglutide, dulaglutide, 188, cm, 04/26/23... Start Date: 04/27/23 Status: Ordered Narcan 4 mg/0.1 mL nasal spray = 4 mg, Nares, Both, Once, may repeat every 2 to 3 minutes until patient responds, # 2 each, 1 Refills, Soft Stop, 02/16/22 23:38:00 EDT, [facility], 188, cm, 02/16/22 13:07:00 EDT, Height,122.63, kg, 11/22/21 16:37:00 EDT, Dry Weight Start Date: 02/16/22 Status: Ordered ondansetron 4 mg oral tablet TAKE 1 TABLET BY MOUTH EVERY 8 HOURS NEEDED FOR NAUSEA Idalia Sandoval Start Date: 08/20/18 Status: Ordered pantoprazole 40 mg oral delayed release tablet 0 Refills, Maintenance, 02/16/22 23:33:00 EDT Start Date: 02/16/22 Status: Ordered PEN NEEDLES MIS [id number] PEN NEEDLES MIS [id number], See Instructions, # 100 each, 5 Refills, Maintenance, USE DAILY TYPE 2 DIABETES MELLITUS ON INSULIN WITH PEN, 08/25/22 16:39:00 EDT, 188, cm, 07/18/22 14:01:00 EDT, Height, 122.63, kg, 11/22/21 16:37:00 EDT, Dry Weight Start Date: 08/25/22 Status: Ordered PEN NEEDLES MIS [id number] PEN NEEDLES MIS [id number], See Instructions, # 150 each, 5 Refills, Maintenance, USE 2-5X/DAY TYPE 2 DIABETES MELLITUS ON LANTUS AND HUMALOG INSULIN WITH PEN, 04/30/23 9:00:00 EST, 188, cm, 04/26/23 13:06:00 EST, Height, 126.09, kg, 04/26/23 13:06:00 ES... Start Date: 04/30/23 Status: Ordered Pen [place], 31 G x 8 mm BD Ultra [...] 02/18/23 19:20:00 EST, Route to Pharmacy Electronically, [facility], 188, cm, 01/30/23 13:26:00 EDT, Height, [...] tablet, 5 Refills, Maintenance, 12/19/22 20:41:00 EDT, [facility], 30, TAKE 1 TABLET BY MOUTH EVERY DAY, 188, cm, 10/19/22 13:16:00 EDT, Height, 122.63, kg, 11/22/21 16:37:00 EDT, Dry Weight Start Date: 12/19/22 Status: Ordered tamsulosin 0.4 mg oral capsule 0.8 mg, 2, capsule, By Mouth, Daily, dose increase, # 60 capsule, Refills 11, Tot. Refills 11, Maintenance, 07/27/22 11:57:00 EDT, Route to Pharmacy Electronically, [facility], 188, cm, 07/18/22 14:01:00 EDT, Height, 122.63, kg, 11/22/21 16:... Start Date: 07/27/22 Status: Ordered Test Strips See Instructions, # 100 each, Refills 5, Tot. Refills 5, Maintenance, Precision Ganga strips (for Freestyle Tatyana glucometer). Type 2 diabetes mellitus on insulin (E11, Z79.4). Test 2-4x/day if symptoms, or sensor concerns., 02/08/23 10:36:00 EDT, [facility]... Start Date: 02/08/23 Status: Ordered Test Strips [...] Intramuscular, Every 14 days, IM or subcutaneous. [facility]., # 2 mL, 5 Refills, Maintenance, 05/04/23 13:34:00 EST, [facility], 188, cm, 04/26/23 13:06:00 EST, Height, 126.09, kg, 04/26/23 13:06:00 EST, Dry Weight Start Date: 05/04/23 Status: Ordered tiZANidine 4 mg oral tablet 4 mg, 1, tablet, By Mouth, 3 times a day, PRN, # 90 tablet, Refills 11, Tot. Refills 11, Maintenance, as needed for muscle spasm, 08/18/22 8:03:00 EDT, Route to Pharmacy Electronically, [facility], 188, cm, 07/18/22 14:01:00 EDT, Height, 122... Start Date: 08/18/22 Status: Ordered Toujeo Max SoloStar 300 units/mL subcutaneous solution = 60 units, Subcutaneous Injection, Daily, # 12 mL, 11 Refills, Maintenance, 02/08/23 10:15:00 EDT,Solution, [facility], replaces Lantus due to insurance coverage, 188, cm, 01/30/23 13:26:00 EDT, Height, 126, kg, 01/30/23 13:26:00 EDT, Dry... Start Date: 02/08/23 Status: Ordered Tylenol Extra Strength 500 mg oral tablet 2 tablet = 1,000 mg, By Mouth, 3 times a day, # 30 tablet, 11 Refills, Maintenance, 03/24/21 21:00:00 EST, [facility], 188, cm, 03/22/21 14:17:00 EST, Height, 125.2, kg, 06/20/20 14:28:00 EST, Dry Weight Start Date: 03/24/21 Status: Ordered Vitamin D3 1000 intl units oral tablet 1 tablet, By Mouth, Daily, # 90 tablet, 4 Refills, Maintenance, 12/17/23 22:28:00 EST, [facility], 188, cm, 01/30/23 13:26:00 EDT, Height, [...] ? chr regional pain syndrome 4s/p Modified [place] procedure, repair of conjoined tendon of extensor carpi radialis longus and brevis and of partial tear of the lateral collateral ligament 12/29/10- Dr Calin Melgar. 5Arthroscopic subacromial decompression with debridement of undersurface partial cuff tear, & distal clavicle excision AC joint arthritis 2007 Vital Signs Most recent to oldest [Reference Range]: 1 Height 188 cm (05/09/23 12:59 PM) Weight 120.5 kg (05/09/23 12:59 PM) Oxygen Saturation [94-100 %] 96 % (05/09/23 12:59 PM) Pulse Rate [55-90 bpm] 95 bpm *H* (05/09/23 12:59 PM) Body Mass Index [18.5-24.99 kg/m2] 34.09 kg/m2 *>HHI* (05/09/23 12:59 PM) Blood Pressure [90-138/55-84 mm Hg] 123/ 79mm Hg (05/09/23 12:59 PM) Respiratory Rate [16-30 br/min] 21 br/mi n (05/09/23 12:59 PM) Mode of Delivery (Oxygen) Room air (05/09/23 12:59 PM) Blood pressure sites Arm, left (05/09/23 12:59 PM) Weight Obtained Via Patient/family state d (05/09/23 12:59 PM) Social History Social History Type Response Smoking Status Former smoker, quit more than 30 days ago entered on: 07/18/22 Sex Male Note * Marcela Stallings: PERFORM, SIGN, VERIFY Event Display: Patient Education/Instruction Authored Date: [id number] [facility] *[facility] Preop Clinical Summary Name ELISSA BERTRAND Age 58 Years 1965 PCP Donovan DE LOS SANTOS, Vamshi Oshea PCP Visit Date 05/09/2023 12:46:00 Patient Instructions Today, you were seen by KERVIN Whitten. If you have any questions, you can reach??her at [phone] between 8.00am to 4.00pm. Thank you for??coming to your visit today with the preoperative??medical evaluation clinic.?? We wish you a fast recovery??from your surgery.? Your medication instructions are summarized below.?? If??you??are prescribed any new??medications, develop any any new medical problems, or??are hospitalized for any reason prior to your surgery; please??contact your us or your surgeon's office immediately.? Please stop all ufhe-tla-ynxrmqn medications including ibuprofen (Advil, Motrin), naproxen (Aleve),??fish oil, multivitamins, turmeric and any herbal drugs 10 days prior to your procedure as these could increase your risk of bleeding complications.? If you require something for pain or a headache, it is safe to use acetaminophen (Tylenol) or any opiates prescribed to you. ??Examples of opiates include oxycodone, hydrocodone, and tramadol. Be aware that with surgery and narcotic use??there may be an increased risk of post operative constipation.?? To help with this increase your fiber intake, fluid intake, and??increase activity as soon as possible.?? You may also consider over the counter agents such as Colace, Dulcolax, Senna and/or Miralax. The morning of surgery, take the following medications with a sip of water:?? ALL NORMAL MEDICATIONS EXECEPT FOR:?Diabetes??medications, HOLD??the morning of??surgery. HOLD MOUNJARO?? ON THE , MAY RESUME ON THE Toujeo??-??take 1/2??normal dose the??night??prior to??surgery. Thank you, Marcela Aguillon, PAC Additional Instructions: Scheduled Appointments?? Future Appointments ?*[facility] ?Phone:??--?Fax:??-- ?Appt. Date:??05/16/2023?9:00 AM ?Scheduled Provider:??[facility] Nurse Yellow Team ?*[facility] ?[address]??[place],??[place],??[address] ?Phone:??--?Fax:??-- ?Appt. Date:??06/01/2023?12:45 PM ?Scheduled Provider:??Joseph Cantor MD ?[facility] ?Phone:??--?Fax:??-- ?Appt. Date:??06/20/2023?8:00 AM ?Scheduled Provider:??[facility] RN X2 ?*[facility] ?[address] ?[place],??[place],??[address] ?Phone:??--?Fax:??-- ?Appt. Date:??07/05/2023?11:00 AM ?Scheduled Provider:??Leslie BARNES, Ai Dc ?*[facility] ?[address]??[place],??[place],??[address] ?Phone:??--?Fax:??-- ?Appt. Date:??07/26/2023?1:00 PM ?Scheduled Provider:??Vamshi Man MD Follow-Up Instructions ?? Allergy Info:?? Other Food Allergy; Latex; penicillin Medications Given This Visit Vital Signs Height 188 cm Weight 120.5 kg BMI 34.09 kg/m2 Blood Pressure 123 mm Hg/79 mm Hg Temperature Pulse Rate 95 bpm Respiratory Rate 21 br/min 02 Sat Mode of Delivery 96 %/Room air You can now view a summary of your hospital visit from the comfort of your home through a free online portal called [employer]. [employer] is a website that allows you to securely view your medical information including discharge summary, medications and follow-up visits. ??You can alsosend a secure electronic message to your doctor???s office to request appointments, renew medications or just ask a question. You can enroll at [email or web address] or register during your next office visit. Disclaimer:?? The information provided is of a general nature and is intended to be used in conjunction with the recommendations and advice of your health care practitioner. ??Every effort has been made to ensure that the information provided is accurate and complete at the time it is provided to you however, as your needs change, or, as new ??information becomes available, different or additional instructions may be required. If you have questions, please consult with your primary care provider or pharmacist, as appropriate. ??This information is not intended to serve as substitution for assessment and evaluation by a qualified health care provider. If you do not have a primary care provider, you may find a [facility] provider by calling [facility] at [phone]. [facility], in keeping with [facility] guidance, no longer requires face masks for staff, patientsor visitors in most situations. Similar to time spent indoors at other locations, there is the chance that you were exposed to respiratory viruses during your time with us (such as flu or COVID-19).? If you develop symptoms concerning for a viral respiratory infection, please seek testing (and treatment if indicated) from your medical provider or home test kit. For information about the plan of care including goals and instructions for your diagnosis, please see the patient education orders section of this document. Patient Education Materials?? The content of this educational material or handout may have been modified, supplemented, or adapted from its original content and format to support your individualized medical care. * Marcela Stallings: PERFORM, SIGN, VERIFY Event Display: Patient Education/Instruction Authored Date: [id number] [facility] *[facility] Preop Clinical Summary Name ELISSA BERTRAND Age 58 Years 1965 [id number] Visit Date 05/09/2023 12:46:00 Patient Instructions Today, you were seen by KERVIN Whitten. If you have any questions, you can reach??her at [phone] between 8.00am to 4.00pm. Thank you for??coming to your visit today with the preoperative??medical evaluation clinic.?? We wish you a fast recovery??from your surgery.? Your medication instructions are summarized below.?? If??you??are prescribed any new??medications, develop any any new medical problems, or??are hospitalized for any reason prior to your surgery; please??contact your us or your surgeon's office immediately.? Please stop all bmru-msg-adnutfa medications including ibuprofen (Advil, Motrin), naproxen (Aleve),??fish oil, multivitamins, turmeric and any herbal drugs 10 days prior to your procedure as these could increase your risk of bleeding complications.? If you require something for pain or a headache, it is safe to use acetaminophen (Tylenol) or any opiates prescribed to you. ??Examples of opiates include oxycodone, hydrocodone, and tramadol. Be aware that with surgery and narcotic use??there may be an increased risk of post operative constipation.?? To help with this increase your fiber intake, fluid intake, and??increase activity as soon as possible.?? You may also consider over the counter agents such as Colace, Dulcolax, Senna and/or Miralax. The morning of surgery, take the following medications with a sip of water:?? ALL NORMAL MEDICATIONS EXECEPT FOR:?Diabetes??medications, HOLD??the morning of??surgery. HOLD MOUNJARO?? ON THE , MAY RESUME ON THE Toujeo??-??take 1/2??normal dose the??night??prior to??surgery. Thank you, Marcela Aguillon, KERVIN Additional Instructions: Scheduled Appointments?? Future Appointments ?*[facility] ?Phone:??--?Fax:??-- ?Appt. Date:??05/16/2023?9:00 AM ?Scheduled Provider:??[facility] Nurse Yellow Team ?*[facility] ?[address]??[place],??[place],??[address] ?Phone:??--?Fax:??-- ?Appt. Date:??06/01/2023?12:45 PM ?Scheduled Provider:??Sakshi DE LOS SANTOS, Joseph ?[facility] ?Phone:??--?Fax:??-- ?Appt. Date:??06/20/2023?8:00 AM ?Scheduled Provider:??[facility] RN X[facility] ?*[facility] ?[address] ?[place],??[place],??[address] ?Phone:??--?Fax:??-- ?Appt. Date:??07/05/2023?11:00 AM ?Scheduled Provider:??Leslie BARNES, Ai Dc ?*[facility] ?[address]??[place],??[place],??[address] ?Phone:??--?Fax:??-- ?Appt. Date:??07/26/2023?1:00 PM ?Scheduled Provider:??Vamshi Man MD Follow-Up Instructions ?? Allergy Info:?? Other Food Allergy; Latex; penicillin Medications Given This Visit Vital Signs Height 188 cm Weight 120.5 kg BMI 34.09 kg/m2 Blood Pressure 123 mm Hg/79 mm Hg Temperature Pulse Rate 95 bpm Respiratory Rate 21 br/min 02 Sat Mode of Delivery 96 %/Room air You can now view a summary of your hospital visit from the comfort of your home through a free online portal called [employer]. [employer] is a website that allows you to securely view your medical information including discharge summary, medications and follow-up visits. ??You can alsosend a secure electronic message to your doctor???s office to request appointments, renew medications or just ask a question. You can enroll at [email or web address] or register during your next office visit. Disclaimer:?? The information provided is of a general nature and is intended to be used in conjunction with the recommendations and advice of your health care practitioner. ??Every effort has been made to ensure that the information provided is accurate and complete at the time it is provided to you however, as your needs change, or, as new ??information becomes available, different or additional instructions may be required. If you have questions, please consult with your primary care provider or pharmacist, as appropriate. ??This information is not intended to serve as substitution for assessment and evaluation by a qualified health care provider. If you do not have a primary care provider, you may find a [facility] provider by calling [facility] at [phone]. [facility], in keeping with [facility] guidance, no longer requires face masks for staff, patientsor visitors in most situations. Similar to time spent indoors at other locations, there is the chance that you were exposed to respiratory viruses during your time with us (such as flu or COVID-19).? If you develop symptoms concerning for a viral respiratory infection, please seek testing (and treatment if indicated) from your medical provider or home test kit. For information about the plan of care including goals and instructions for your diagnosis, please see the patient education orders section of this document. Patient Education Materials?? The content of this educational material or handout may have been modified, supplemented, or adapted from its original content and format to support your individualized medical care. Patient Care team information Care Team Personnel Name: Shoaib An RN Position: [facility] RN Supv Member Role: Primary Care Nurse Name: Vamshi Man MD Position: [facility] Physician - Primary Care Member Role: PCP Address: Address: [address] Name: Luz Potter Position: [facility] Outreach Member Role: [employer] Consulting Physician Name: Miki Rodriguez MD Position: [facility] Renal MD Member Role: Lifetime Consulting Physician Address: Address: [address] [facility] [place], [place] [address] Care Team Related Persons Name: BRANDON MTZ Address: home [address] [facility] [place] [address] Name: BRANDON BARKER Address: home [address] [place] [address] Name: ROSALINDA BERTRAND Address: [address] [place] [address]
--- OUTSIDE RECORDS SUMMARY | 2023-10-11 08:19 | XMS_ITS | Continuity of Care Document ---
Author Organization [facility] Address [address] [place] [id number]- Care Team Providers Care Satellite Communications Engineer Name Role Phone Vamshi Man MD Primary Care Physician Encounter [facility] Date(s): 09/04/23 - 10/04/23 [facility]/[address] [address]- Allergies, Adverse Reactions, Alerts Substance Reaction Severity Status Other Food Allergy fresh peaches - itch y mouth, throat and lips swell Active penicillin 1 rash Resolved penicillins Active Latex RASH Active 1rash per mother as child. Did take a penicillin for treatment of H pylori per pt w/o problem. Immunizations Given and Recorded Vaccine Date Status Refusal Reason SARS-CoV-2(COVID-19)mRNA-LNP vac([id number]) 01/30/23 Given influenza virus vaccine, inactivated 01/05/23 [...] influenza virus vaccine, inactivated 03/19/06 Give n [id number] 12y+ bivalent booster vax 02/16/22 Given pneumococcal 20-valent conjugate vaccine 02/16/22 Given Influenza Virus Vaccine (oldterm) 9 01/27/22 Recor ded Influenza Virus Vaccine (oldterm) 01/26/21 Recorde d SARS-CoV-2 mRNA ([id number]-feunj) vax 11/11/21 Given SARS-CoV-2 (COVID-19) mRNA BNT-162b2 [...] Elissa Bertrand 13Result Comment: [11/27/2017] REceived at [facility] [place], [place]; ordered by Dr Michael Oliveira 14Location [...] 11 Refills, Maintenance, 02/08/23 10:21:00 EDT, Powder, [facility], replaces Flovent due to insurance coverage, 188, cm, 01/30/23 13:26:00 EDT, Height, 126, kg, 01/30/23 13:26:00 EDT,... Start Date: 02/08/23 Status: Ordered Aspirin Low Dose 81 mg oral delayed release tablet 1 tablet, By Mouth, Daily, # 90 tablet, 4 Refills, Maintenance, 03/01/23 17:49:00 EST, [facility], 188, cm, 01/30/23 13:26:00 EDT, Height, 126, kg, 01/30/23 13:26:00 EDT, Dry Weight Start Date: 03/01/23 Status: Ordered atorvastatin 40 mg oral tablet 1 tablet, By Mouth, Daily, # 90 tablet, 1 Refills, Maintenance, 07/25/23 20:12:00 EDT, [facility], 188, cm, 07/05/23 11:09:00 EDT, [...] 2 Refills, Maintenance, 04/27/22 23:43:00 EST, Cream, [facility], 1 application Topically 2 times a day,Instr:apply to penile rash, 188, cm, 04/27/22 13:44:00 EST, Heigh... Start Date: 04/27/22 Status: Ordered diazepam 10 mg oral tablet See Instructions, PRN, 1 tablet By Mouth 1 hr before MRI, # 1 tablet, Refills 2, Tot. Refills 2, Maintenance, as needed for anxiety, 01/30/23 15:02:00 EDT, Instructions Replace Required Details, Route to Pharmacy Electronically, [facility],... Start Date: 01/30/23 Status: Ordered diclofenac 1% topical gel = 2 Gm, Topically, 4 times a day, PRN for pain, (setswana) not to exceed: 16 gm/day/joint lower limb8 gm/day/joint of upper limb 32 gm/day may interchange for cream, # 100 Gm, 11 Refills, Maintenance, 04/15/22 13:02:00 EST, Gel, [facility]... Start Date: 04/15/22 Status: Ordered docusate [...] 16 Gm, 11 Refills, Maintenance, 07/09/23 11:37:00EDT, [place], [facility], Partial fill upon patient request if the prescription is for a schedule II opioid drug., 2 sprays Nares, Both 2 times... Start Date: 07/09/23 Status: Ordered Freestyle Tatyana [place] Freestyle Tatyana [place], See Instructions, # 1 each, Refills 0, [...] days., 08/11/23 11:15:00 EDT, Recently sent to [facility]... Start Date: 08/11/23 Status: [...] 07/06/22 Status: Ordered FREESTYLE PHYLLIS LITE FREESTYLE HPYLLIS LITE, See Instructions, # 100 each, 9 [...] 11 Refills, Maintenance, 11/28/21 21:27:00 EDT, Solution, [facility], 188, cm, 11/22/21 16:37:00 EDT, Height, [...] Gm, 5 Refills, Maintenance, 12/22/21 7:28:00 EDT, [facility], same Rx was sent 11/11 w/ [...] 3 Refills, Maintenance, 05/07/23 16:31:00 EST, Tablet, [facility], 188, cm, 04/26/23 13:06:00 EST, Height, 126.09, kg, 04/26/23 13:06:00 EST, Dry Weight Start Date: 05/07/23 Status: Ordered metFORMIN 750 mg oral tablet, extended release 1 tablet = 750 mg, By Mouth, Daily, [replaces the metformin 500mg bid], # 30 tablet, 5 Refills, Maintenance, 05/15/23 8:10:00 EST, ER Tablet, [facility], Partial fill upon patient request if the prescription is for a schedule II opioid drug.... Start Date: 05/15/23 Status: Ordered methadone 10 mg oral tablet See Instructions, By mouth. 2 tab in AM, 1.5 midday, 2 in evening;for pain. IDC10: G90.5 CRPS. 28 day supply. [facility]., # 154 tablet, 0 Refills, Maintenance, pain, 10/09/23 21:08:00 EDT,[facility], May partial fill., 0... Start Date: 10/09/23 Status: Ordered methadone 10 mg oral tablet See Instructions, By mouth. 2 tab in AM, 1.5 midday, 2 in evening;for pain. IDC10: G90.5 CRPS. 28 day supply. [facility]., # 154 tablet, 0 Refills, Maintenance, pain, 09/11/23 21:08:00 EDT,[facility], May partial fill., 0... Start Date: 09/11/23 Status: Ordered methadone 10 mg oral tablet See Instructions, By mouth. 2 tab in AM, 1.5 midday, 2 in evening;for pain. IDC10: G90.5 CRPS. 28 day supply. [facility]., # 154 tablet, 0 Refills, Maintenance, pain, 08/14/23 21:08:00 EDT,[facility], May partial fill., 0... Start Date: 08/14/23 Status: Ordered methadone 10 mg oral tablet See Instructions, By mouth. 2 tab in AM, 1.5 midday, 2 in evening;for pain. IDC10: G90.5 CRPS. 28 day supply. [facility]., # 154 tablet, 0 Refills, Maintenance, pain, 04/24/23 22:44:00 EST,[facility], May partial fill., 188, cm,... Start Date: 04/24/23 Status: Ordered Mounjaro 10 mg/0.5 mL subcutaneous solution = 10 mg, Subcutaneous Infusion, Every 7 days, please interchange with other Rx for 7.5 mg if unavailable., # 4 each, 11 Refills, Maintenance, 07/26/23 14:10:00 EDT, [facility], Partial fillupon patient request if the prescription is for a s... Start Date: 07/26/23 Status: Ordered Mounjaro 7.5 mg/0.5 mL subcutaneous solution = 7.5 mg, Subcutaneous Injection, Every week, rotate injection sites, # 4 each, 5 Refills, Maintenance, 07/07/23 17:04:00 EDT, Solution, [facility], should still have a couple [...] EDT Start Date: 02/16/22 Status: Ordered Pen [place], 31 G x 8 mm BD Ultra [...] 02/18/23 19:20:00 EST, Route to Pharmacy Electronically, [facility], 188, cm, 01/30/23 13:26:00 EDT, Height, [...] tablet, 5 Refills, Maintenance, 07/09/23 11:09:00 EDT, [facility], 30, 1 tablet By Mouth Daily, 188, cm, 07/05/23 11:09:00 EDT, Height, 126.09, kg, 04/26/23 13:06:00 EST, Dry Weight Start Date: 07/09/23 Status: Ordered tamsulosin 0.4 mg oral capsule 0.8 mg, 2, capsule, By Mouth, Daily, dose increase, # 180 capsule, Refills 11, Tot. Refills 11, Maintenance, 07/26/23 14:15:00 EDT, Route to Pharmacy Electronically, [facility], 188, cm, 07/26/23 13:30:00 EDT, Height, 121.81, kg, 07/26/23 13... Start Date: 07/26/23 Status: Ordered Test Strips See Instructions, # 100 each, Refills 5, Tot. Refills 5, Maintenance, Precision Ganga strips (for Freestyle Tatyana glucometer). Type 2 diabetes mellitus on insulin (E11, Z79.4). Test 2-4x/day if symptoms, or sensor concerns., 02/08/23 10:36:00 EDT, [facility]... Start Date: 02/08/23 Status: Ordered Test Strips [...] Intramuscular, Every 14 days, IM or subcutaneous. [facility]., # 2 mL, 5 Refills, Maintenance, 08/11/23 11:20:00 EDT, [facility], Last sent to [facility]. Sending now to [facility] due to pt request msg [email or web address]... Start Date: 08/11/23 Status: Ordered tiZANidine 4 mg oral tablet 4 mg, 1, tablet, By Mouth, 3 times a day, PRN, # 90 tablet, Refills 11, Tot. Refills 11, Maintenance, as needed for muscle spasm, 09/10/23 13:47:00 EDT, Route to Pharmacy Electronically, [facility], 188, cm, 07/26/23 17:37:00 EDT, Height, 12... Start Date: 09/10/23 Status: Ordered Toujeo Max SoloStar 300 units/mL subcutaneous solution = 70 units, Subcutaneous Injection, Daily, decrease frin 90u, # 12 mL, 11 Refills, Maintenance, 07/26/23 14:19:00 EDT, Solution, [facility], replaces Lantus due to insurance coverage, 188, cm, 07/26/23 13:30:00 EDT, Height, 121.81, kg, 07/25... Start Date: 07/26/23 Status: Ordered Tylenol Extra Strength 500 mg oral tablet 2 tablet = 1,000 mg, By Mouth, 3 times a day, # 30 tablet, 11 Refills, Maintenance, 03/24/21 21:00:00 EST, [facility], 188, cm, 03/22/21 14:17:00 EST, Height, 125.2, kg, 06/20/20 14:28:00 EST, Dry Weight Start Date: 03/24/21 Status: Ordered Vitamin D3 1000 intl units oral tablet 1 tablet, By Mouth, Daily, # 90 tablet, 4 Refills, Maintenance, 04/01/23 22:28:00 EST, [facility], 188, cm, 01/30/23 13:26:00 EDT, [...] ? chr regional pain syndrome 4s/p Modified [place] procedure, repair of conjoined tendon of extensor [...] Name: Shoaib An RN Position: [facility] RN Supv Member Role: Primary Care Nurse Name: Donovan DE LOS SANTOS, Vamshi Oshea Position: [facility] Physician - Primary Care Member Role: PCP Address: Address: [address] [place] [address]- Name: Luz Potter Position: [facility] Outreach Member Role: Lifetime Consulting Physician Name: Miki Rodriguez MD Position: [facility] Renal MD Member Role: Lifetime Consulting Physician Address: Address: [address] [facility] [place], [place] [address]- Care Team Related Persons Name: BRANDON MTZ Address: home [address] [place] [address] Name: BRANDON BARKER Address: home [address] [place] [address] Name: ROSALINDA BERTRAND
--- OUTSIDE RECORDS SUMMARY | 2023-10-11 08:19 | XMS_ITS | Continuity of Care Document ---
Author Organization [facility] Address [address] [place] [address]- Care Team Providers Care Medical Data Entry Clerk Name Role Phone Vamshi Man MD Primary Care Physician Encounter [facility] [id number] Date(s): 06/11/19 - 06/21/[address] [address]- [facility] Attending Physician: Savanna Liu Admitting Physician: Savanna [...] Elissa Bertrand 11Result Comment: [11/27/2017] REceived at [facility] [place], [place]; ordered by Dr Michael Oliveira 12Location [...] 10/30/18 7:28:48 EDT, Route to Pharmacy Electronically, [id number], [facility] Start Date: 10/30/18 Status: Ordered AutoCPAP [...] 4 times a day, PRN for pain, (faroese) not to exceed: 16 gm/day/joint lower limb8 gm/day/joint of upper limb 32 gm/day, # 100 Gm, 1 Refills, Maintenance, 05/29/19 13:35:00 EST, Gel, [facility], 185, cm, 05/06/19 13:41:... Start Date: 05/29/19 Status: Ordered Discontinued prescription(s) notice. Discontinued prescription(s) notice., See Instructions, # 0.001 each, Refills 0, Tot. Refills 0, Acute 07/03/19 23:55:00 EDT, Please discontinue and cancel refill Rx(s) for: methadone. pt to fill at [facility]. thanks, 06/03/19 23:54:00 EST,... Start Date: 06/03/19 Stop Date: 07/03/19 Status: Ordered docusate sodium/sennosides 50/8.6mg docusate sodium/sennosides [...] tablet, 1 Refills, Maintenance, 04/15/19 5:02:00 EST, [facility], 185, cm, 02/12/19 9:28:00 EDT, Height, [...] Eyes, Both, Daily at bedtime, cover gap- Reinforcer Dr Broussard, # 2.5 mL, 1 Refills, Maintenance, 02/25/14 10:47:09, Ophth Solution, 1 drops Eyes, Both Daily at bedtime,Instr:cover gap-Reinforcer Dr Broussard Start Date: 02/25/14 Status: Ordered lidocaine 4% topical cream 1 application, Topically, 3 times a day, may interchange 3-5% cream or ointment or 2% gel per insurance coverage., # 60 Gm, 5 Refills, Maintenance, 06/03/19 14:41:00 EST, [facility], 1 application Topically 3 times a day,Instr:august interchang... Start Date: 06/03/19 Status: Ordered Linzess 145 mcg oral capsule TAKE 1 CAPSULE BY MOUTH 30 MINUTES BEFORE MEAL (constipation) Start Date: 03/31/17 Status: Ordered Lipitor 40 mg oral tablet 1 tablet = 40 mg, By Mouth, Daily, # 30 tablet, 5 Refills, Maintenance, 05/15/19 11:16:00 EST, [facility], 185, cm, 05/06/19 13:41:00 EST, Height, [...] # 154 tablet, 0 Refills, Maintenance, pain, 06/03/19 23:53:00 EST, [facility], August partial fill.,... Start Date: 06/03/19 Status: Ordered Metoclopramide = 10 mg, By [...] Start Date: 05/15/18 Status: Ordered nystatin topical 409733 u/gm cream 1 application, Topically, 2 times a day, for fungal rash, # 30 Gm, 0 Refills, Maintenance, 12/27/1710:41:38, Cream, 1 application Topically 2 times a day,x14 days,Instr:for fungal rash Start Date: 12/27/16 Stop Date: 01/10/17 Status: Ordered nystatin-triamcinolone topical 480548 u/gm-0.1% ointment 1 applicator, Topically, 3 times [...] EDT Start Date: 08/20/18 Status: Ordered Pen [place], 31 G x 8 mm BD Ultra [...] 11/29/18 11:27:43 EDT, Route to Pharmacy Electronically, [id number], [facility] Start Date: 11/29/18 Status: Ordered Testosterone Cypionate = 0.75 mg, Intramuscular, Every 14 days, Adm. today to Lot [id number] exp: 02/2020, 0 Refills, Maintenance, 11/14/18 14:06:08 EDT Start Date: 11/14/18 Status: Ordered testosterone enanthate 200 mg/mL intramuscular solution 0.75 mL, Intramuscular, Every 14 days, [facility], # 5 mL, 5 Refills, Maintenance, 05/06/19 15:06:00 EST, [facility], 185, cm, 05/06/19 13:41:00 EST, Height, 127.72, kg, 05/06/19 13:41:00 EST, Dry Weight Start Date: 05/06/19 Status: Ordered tiZANidine 4 mg oral tablet 4 mg, 1, tablet, By Mouth, 3 times a day, PRN, # 90 tablet, Refills 11, Tot. Refills 11, Maintenance, as needed for muscle spasm, 02/04/19 21:34:51 EDT, Route to Pharmacy Electronically, NCPDP_[id number], [facility] Start Date: 02/04/19 Status: Ordered Problem List Condition Effective Dates Status Health Status Inform ant Alcohol abuse - per evaln 2015(Confirmed) Active Allergic rhinitis(Confirmed) Active Anxiety [...] ? chr regional pain syndrome 4s/p Modified [place] procedure, repair of conjoined tendon of extensor [...]
--- OUTSIDE RECORDS SUMMARY | 2023-10-11 08:19 | XMS_ITS | Continuity of Care Document ---
Author Organization [facility] Address [address] [place] [address]- Care Team Providers Care Trout Farmer Name Role Phone Vamshi Man MD Primary Care Physician En[place] [facility] Date(s): 10/27/22 - 11/26/22 [facility]/[place] [address]- [place] Allergies, Adverse Reactions, Alerts Substance Reaction Severity Status penicillin 1 rash Resolved Other Food Allergy fresh peaches - itch y mouth, throat and lips swell Active Latex RASH Active 1rash per mother as child. Did take a penicillin for treatment of H pylori per pt w/o problem. Immunizations Given and Recorded Vaccine Date Status Refusal Reason [id number] 12y+ bivalent booster vax 02/16/22 Given pneumococcal 20-valent conjugate vaccine 02/16/22 Given Influenza Virus Vaccine (oldterm) 1 01/27/22 Recor ded Influenza Virus Vaccine (oldterm) 01/26/21 Recorde d SARS-CoV-2 mRNA (iyijbqt-[id number]-[id number]) vax 11/11/21 Given SARS-CoV-2 (COVID-19) mRNA BNT-162b2 [...] Elissa Bertrand 13Result Comment: [11/27/2017] REceived at [facility] [place], [place]; ordered by Dr Michael Oliveira 14Location [...] tablet, 5 Refills, Maintenance, 09/06/22 21:30:00 EDT, [facility], 188, cm, 07/18/22 14:01:00 EDT, Height, 122.63, kg, 11/22/21 16:37:00 EDT, Dry Weight Start Date: 09/06/22 Status: Ordered atorvastatin 40 mg oral tablet See Instructions, TAKE 1 TABLET BY MOUTH EVERY DAY, # 90 tablet, 1 Refills, Maintenance, 11/02/22 16:19:00 EDT, [facility], 188, cm, 10/19/22 13:16:00 EDT, Height, [...] 0 Refills, Maintenance, 05/15/22 16:24:00 EST, Tablet, [facility], Partial [...] 2 Refills, Maintenance, 04/27/22 23:43:00 EST, Cream, [facility], 1 application Topically 2 times a day,Instr:apply to penile rash, 188, cm, 04/27/22 13:44:00 EST, [facility]... Start Date: 04/27/22 Status: Ordered diclofenac 1% topical gel = 2 Gm, Topically, 4 times a day, PRN for pain, (armenian) not to exceed: 16 gm/day/joint lower limb8 gm/day/joint of upper limb 32 gm/day may interchange for cream, # 100 Gm, 11 Refills, Maintenance, 04/15/22 13:02:00 EST, Gel, [facility]... Start Date: 04/15/22 Status: Ordered docusate [...] 0 Refills, Maintenance, 09/03/22 13:58:00 EDT, Tablet, [facility], 188, cm, 07/18/22 14:01:00 EDT, Height, 122.63, kg, 11/22/21... Start Date: 09/03/22 Status: Ordered fexofenadine 60 mg oral tablet 1 tablet = 60 mg, By Mouth, 2 times a day, PRN for allergy symptoms, # 20 tablet, 0 Refills, Maintenance, 09/03/22 13:58:00 EDT, Tablet, [facility], [...] May cause drowsiness, do notdrive after taking Jordanian, # 28 tablet, 0 Refills, Maintenance, 04/07/22 15:51:00 EST[facility], [facility], 02/16/22 13:07:00 EDT, Heigh... [...] 11 Refills, Maintenance, 11/28/21 21:27:00 EDT, Solution, [facility], 188, cm, 11/22/21 16:37:00 EDT, Height, [...] mL, 5 Refills, Maintenance, 08/02/22 14:51:00 EDT, [facility], 188, cm, 07/18/22 14:01:00 EDT, Height, 122.63,kg, 11/22/21 16:37:00 EDT, Dry Weight Start Date: 08/02/22 Status: Ordered latanoprost 0.005% ophthalmic solution 0 Refills, Maintenance, 05/11/20 16:57:00 EST Start Date: 05/11/20 Status: Ordered lidocaine 5% topical ointment See Instructions, PRN Pain , Moderate, 1 APPLICATION TOPICALLY 3 TIMES A DAY, # 50 Gm, 5 Refills, Maintenance, 12/22/21 7:28:00 EDT, [facility], same Rx was sent 11/11 w/ [...] 0 Refills, Maintenance, 01/12/22 7:27:00 EDT, Tablet, [facility], 188, cm, 12/26/21 14:06:00 EDT, Height, 122.63, kg, 11/22/21 16:37:00 EDT, Dry Weight Start Date: 01/12/22 Status: Ordered losartan 100 mg oral tablet See Instructions, TAKE 1 TABLET BY MOUTH DAILY IN AM, # 30 tablet, 4 Refills, Maintenance, 10/06/2315:25:00 EDT, [facility], 188, [...] 11 Refills, Maintenance, 04/27/22 15:29:00 EST, Tablet, [facility], Partial fill upon patient request if the prescription is for a schedule II opioid drug., 188, cm, 04/27/22 13:44:00 EST, Hei... Start Date: 04/27/22 Status: Ordered meloxicam 15 mg oral tablet 1 tablet = 15 mg, By Mouth, Daily, Take with food PRN back pain Jordanian, # 14 tablet, 0 Refills, Maintenance, 11/25/21 [...] tablet, 0 Refills, Maintenance, pain, 12/05/22 17:25:00 EDT,[facility], May partial fill., 12/05/22... Start Date: 12/05/22 Status: Ordered methadone 10 mg oral tablet See Instructions, By mouth. 2 tab in AM, 1.5 midday, 2 in evening;for pain. IDC10: G90.5 CRPS. 28 day supply. [facility]., # 154 tablet, 0 Refills, Maintenance, pain, 01/02/23 17:25:00 EDT,[facility], May partial fill., 01/02/23... Start Date: 01/02/23 Status: Ordered methadone 10 mg oral tablet See Instructions, By mouth. 2 tab in AM, 1.5 midday, 2 in evening;for pain. IDC10: G90.5 CRPS. 28 day supply. [facility]., # 154 tablet, 0 Refills, Maintenance, pain, 11/07/22 17:25:00 EDT,[facility], August partial fill., 11/07/22... Start Date: 11/07/22 Status: Ordered methadone 10 mg oral tablet See Instructions, By mouth. 2 tab in AM, 1.5 midday, 2 in evening;for pain. IDC10: G90.5 CRPS. 28 day supply. [facility]., # 154 tablet, 0 Refills, Maintenance, pain, 04/25/22 23:30:00 EST,[facility], August partial fill., 04/25/22... Start Date: 04/25/22 Status: Ordered Metoclopramide = 10 mg, By Mouth, 3 times a day before meals and bedtime, 0 Refills, Maintenance, 08/20/18 13:55:26 EDT Start Date: 08/20/18 Status: Ordered multivitamin Multiple Vitamins oral tablet 1 tablet, By Mouth, Daily, B complex multivitamin, # 30 tablet, 11 Refills, Maintenance, 11/22/21 17:58:00 EDT, [facility], Partial [...] Date: 02/16/22 Status: Ordered PEN NEEDLES MIS [id number] PEN NEEDLES MIS [id number], See Instructions, # 100 each, 5 Refills, Maintenance, USE DAILY TYPE 2 DIABETES MELLITUS ON INSULIN WITH PEN, 08/25/22 16:39:00 EDT, 188, cm, 07/18/22 14:01:00 EDT, Height, 122.63, kg, 11/22/21 16:37:00 EDT, Dry Weight Start Date: 08/25/22 Status: Ordered Pen [place], 31 G x 8 mm BD Ultra [...] mL, 11 Refills, Maintenance, 04/27/22 23:40:00 EST, [facility], 188, cm, 04/27/22 13:44:00 EST, Height, 122.63, kg, 11/22/21 16:37:00 EDT,... Start Date: 04/27/22 Status: Ordered Singulair 10 mg oral tablet 10 mg, 1, tablet, By Mouth, Daily, # 90 tablet, Refills 3, Tot. Refills 3, Maintenance, 03/30/20 21:31:00 EST, Route to Pharmacy Electronically, [facility], 185, cm, 02/25/20 10:29:00 EST, Height, 126.81, kg, 02/25/20 10:29:00 EST, Dry Weight Start Date: 03/30/20 Status: Ordered tamsulosin 0.4 mg oral capsule 0.8 mg, 2, capsule, By Mouth, Daily, dose increase, # 60 capsule, Refills 11, Tot. Refills 11, Maintenance, 07/27/22 11:57:00 EDT, Route to Pharmacy Electronically, [facility], 188, cm, 07/18/22 14:01:00 EDT, Height, [...] Intramuscular, Every 14 days, IM or subcutaneous. [facility]., # 2 mL, 5 Refills, Maintenance, 10/27/22 17:23:00 EDT, [facility], 188, cm, 10/19/22 13:16:00 EDT, Height, 122.63, kg, 11/22/21 16:37:00 EDT, Dry Weight Start Date: 10/27/22 Status: Ordered tiZANidine 4 mg oral tablet 4 mg, 1, tablet, By Mouth, 3 times a day, PRN, # 90 tablet, Refills 11, Tot. Refills 11, Maintenance, as needed for muscle spasm, 08/18/22 8:03:00 EDT, Route to Pharmacy Electronically, [facility], 188, cm, 07/18/22 14:01:00 EDT, Height, 122... Start Date: 08/18/22 Status: Ordered traZODone 100 mg oral tablet TAKE ONE TO TWO TABLETS BY MOUTH AT BEDTIME NEEDED S. McAnulty Start Date: 05/11/20 Status: Ordered Tylenol Extra Strength 500 mg oral tablet 2 tablet = 1,000 mg, By Mouth, 3 times a day, # 30 tablet, 11 Refills, Maintenance, 03/24/21 21:00:00 EST, [facility], 188, cm, 03/22/21 14:17:00 EST, Height, [...] Team Personnel Name: Shoaib An RN Position: [facility] RN Supv Member Role: Primary Care Nurse Name: Donovan DE LOS SANTOS, Vamshi Oshea Position: [facility] Physician - Primary Care Member Role: PCP Address: Address: [address] [place] [address]- Name: Miki Rodriguez MD Position: [facility] Renal MD Member Role: Lifetime Consulting Physician Address: Address: [address] [facility] [place] [address]- Care Team Related Persons Name: BRANDON MTZ Address: home [address] [place] [address] Name: BRANDON BARKER Address: home [address] [place] [address] Name: ROSALINDA BERTRAND Address: home [address] [place] [address]
--- OUTSIDE RECORDS SUMMARY | 2023-10-11 08:19 | XMS_ITS | Continuity of Care Document ---
Author Organization [facility] Address Unknown Care Team Providers Care Mop Machine Operator Name Role Phone Vamshi Man MD Primary Care Physician [place] [facility] [place] - 12/05/20 [facility] Attending Physician: Vamshi Man MD Admitting [...] Elissa Bertrand 12Result Comment: [11/27/2017] REceived at [facility] at [place], [place]; ordered by Dr Michael Oliveira 13Location [...] tablet, 5 Refills, Maintenance, 11/18/20 15:30:00 EDT, [facility], 188, cm, 09/22/20 8:33:00 EDT, Height, 125.2, kg, 06/20/20 14:28:00 EST, Dry Weight Start Date: 11/18/20 Status: Ordered AutoCPAP 9-18 with heated humidification AutoCPAP 9-18 with heated humidification, See Instructions, # 1 each, Refills 0, Tot. Refills 0, Maintenance, use overnight and naps from [facility], 11/04/18 12:28:22 EDT, Compound Start Date: 11/04/18 [...] capsule, 3 Refills, Maintenance, 03/30/20 21:36:00 EST, [facility], 185, cm, 02/25/20 10:29:00 EST, Height, 126.81, kg, 02/25/20 10:29:00 EST, Dry Weight Start Date: 03/30/20 Status: Ordered clotrimazole 1% topical cream 1 application, Topically, 2 times a day, apply to penile rash, # 30 Gm, 2 Refills, Maintenance, 01/07/20 14:49:00 EDT, Cream, [facility], 1 application Topically 2 times a day,Instr:apply to penile rash, 185, cm, 01/07/20 13:55:00 EDT, Francheska... Start Date: 01/07/20 Status: Ordered Cozaar 100 mg oral tablet 1 tablet = 100 mg, By Mouth, Daily in AM, # 30 tablet, 11 Refills, Maintenance, 09/22/20 9:41:00 EDT, Tablet, [facility], duplicate rx. original sent 09/16/19. [...] 06/25/20 15:39:00 EST, Route to Pharmacy Electronically, [facility], Partial f... Start Date: 06/25/20 Status: Ordered diclofenac 1% topical gel = 2 Gm, Topically, 4 times a day, PRN for pain, (malagasy) not to exceed: 16 gm/day/joint lower limb8 gm/day/joint of upper limb 32 gm/day may interchange for cream, # 100 Gm, 5 Refills, Maintenance,07/08/20 15:35:00 EDT, Gel, [facility] Start Date: 07/08/20 Status: Ordered [...] 11 Refills, Maintenance, 02/15/20 21:05:00 EST, Solution, [facility], 185, cm, 01/07/20 13:55:00 EDT, [...] mL, 3 Refills, Maintenance, 07/08/20 15:42:00 EDT, [facility], Duplicate rx-Original rx sent 06/22/20. Resent., 188, cm, 07/08/20 13:42:00 EDT, Height, 125.2, kg, 06/20/20 14:28:00 EST,... Start Date: 07/08/20 Status: Ordered latanoprost 0.005% ophthalmic solution 0 Refills, Maintenance, 05/11/20 16:57:00 EST Start Date: 05/11/20 Status: Ordered lidocaine 5% topical ointment See Instructions, 1 APPLICATION TOPICALLY 3 TIMES A DAY, # 70.88 Gm, 4 Refills, Acute, [facility], 14, 1 APPLICATION TOPICALLY 3 TIMES A DAY, 188, cm, 09/22/20 8:33:00 EDT, Height, 125.2, kg, 06/20/20 14:28:00 EST, Dry Weight Start Date: 11/08/20 Status: Ordered Lipitor 40 mg oral tablet 1 tablet = 40 mg, By Mouth, Daily, # 90 tablet, 3 Refills, Maintenance, 03/30/20 21:30:00 EST, [facility], duplicate rx. original sent 11/04/19. remaining refill sent., 185, cm, 02/25/20 10:29:00 EST, Height, 126.81, kg, 02/25/20 10:29:00 EST... Start Date: 03/30/20 Status: Ordered LORazepam 1 mg oral tablet See Instructions, PRN for anxiety, 2 tablets By Mouth 1 hours prior to MRI, # 2 tablet, 0 Refills, Acute 09/22/21 9:45:00 EDT, 09/22/20 9:43:00 EDT, Tablet, [facility], Partial fill upon patient request [...] 3 Refills, Maintenance, 07/08/20 15:40:00 EDT, Tablet, [facility], Duplicate rx-Original rx sent06/22/20. Resent., 188, cm, 07/08/20 13:42:00 EDT, He... Start Date: 07/08/20 Status: Ordered methadone 10 mg oral tablet See Instructions, By mouth. 2 tab in AM, 1.5 midday, 2 in evening;for pain. IDC10: G90.5 CRPS. 28 day supply. [facility]., # 154 tablet, 0 Refills, Maintenance, pain, 11/09/20 9:00:00 EDT, [facility], May partial fill., 11/09/20,... Start Date: 11/09/20 Status: Ordered methadone 10 mg oral tablet See Instructions, By mouth. 2 tab in AM, 1.5 midday, 2 in evening;for pain. IDC10: G90.5 CRPS. 28 day supply. [facility]., # 154 tablet, 0 Refills, Maintenance, pain, 12/07/20 9:00:00 EDT, [facility], May partial fill., 12/07/20,... Start Date: 12/07/20 [...] Start Date: 05/15/18 Status: Ordered nystatin-triamcinolone topical 330345 u/gm-0.1% ointment 1 applicator, Topically, 3 times a day, to foreskin area FOR 3 DAYS then switch to other antifungal, # 15 Gm, 1 Refills, Maintenance, 07/08/20 15:34:00 EDT, [facility], 1 applicator Topically 3 times [...] EDT Start Date: 08/20/18 Status: Ordered Pen [place], 31 G x 8 mm BD Ultra [...] 03/30/20 21:31:00 EST, Route to Pharmacy Electronically, [facility], 185, cm, 02/25/20 10:29:00 EST, [...] solution 0.75 mL, Intramuscular, Every 14 days, [facility], # 5 mL, 5 Refills, Maintenance, 08/29/20 21:33:00 EDT, [facility], 188, cm, 07/08/20 13:42:00 EDT, Height, 125.2, kg, 06/20/20 14:28:00 EST, Dry Weight Start Date: 08/29/20 Status: Ordered tiZANidine 4 mg oral tablet 4 mg, 1, tablet, By Mouth, 3 times a day, PRN, # 90 tablet, Refills 11, Tot. Refills 11, Maintenance, as needed for muscle spasm, 07/08/20 15:40:00 EDT, Route to Pharmacy Electronically, [facility], 188, cm, 07/08/20 13:42:00 EDT, [...] ? chr regional pain syndrome 4s/p Modified [place] procedure, repair of conjoined tendon of extensor [...]
--- OUTSIDE RECORDS SUMMARY | 2023-10-11 08:19 | XMS_ITS | Continuity of Care Document ---
Author Organization [facility] Address [address] [place] [address]- Care Team Providers Care In School Suspension Coordinator Name Role Phone Donovan DE LOS SANTOS, Vamshi Oshea Primary Care Physician [place] [facility] [place] 10/04/22 - 11/17/22 [facility] [address]- Attending Physician: Not on Staff, Attending MD Allergies, Adverse Reactions, Alerts Substance Reaction Severity Status Other Food Allergy fresh peaches - itch y mouth, throat and lips swell Active Latex RASH Active penicillin 1 rash Resolved 1rash per mother as child. Did take a penicillin for treatment of H pylori per pt w/o problem. Immunizations Given and Recorded Vaccine Date Status Refusal Reason [id number] 12y+ bivalent booster vax 02/16/22 Given pneumococcal 20-valent conjugate vaccine 02/16/22 Given Influenza Virus Vaccine (oldterm) 1 01/27/22 Recor ded Influenza Virus Vaccine (oldterm) 01/26/21 Recorde d SARS-CoV-2 mRNA ([id number]) vax 11/11/21 Given SARS-CoV-2 (COVID-19) mRNA BNT-162b2 [...] 13Result Comment: [11/27/2017] REceived at [facility] at [place], [place]; ordered by Dr Michael Oliveira 14Location [...] tablet, 5 Refills, Maintenance, 09/06/22 21:30:00 EDT, [facility], 188, cm, 07/18/22 14:01:00 EDT, Height, 122.63, kg, 11/22/21 16:37:00 EDT, Dry Weight Start Date: 09/06/22 Status: Ordered atorvastatin 40 mg oral tablet See Instructions, TAKE 1 TABLET BY MOUTH EVERY DAY, # 90 tablet, 1 Refills, Maintenance, 11/02/22 16:19:00 EDT, [facility], 188, cm, 10/19/22 13:16:00 EDT, Height, 122.63, kg, 11/22/21 16:37:00 EDT, Dry Weight Start Date: 11/02/22 Status: Ordered AutoCPAP 9-18 with heated humidification AutoCPAP 9-18 with heated humidification, See Instructions, # 1 each, Refills 0, Tot. Refills 0, Maintenance, use overnight and naps from [facility], 11/04/18 12:28:22 EDT, Compound Start Date: 11/04/18 Status: Ordered baclofen 5 mg oral tablet 1 tablet = 5 mg, By Mouth, 3 times a day, take it with meals x 3/day, # 12 tablet, 0 Refills, Maintenance, 05/15/22 16:24:00 EST, Tablet, [facility], Partial fill upon patient request if [...] 2 Refills, Maintenance, 04/27/22 23:43:00 EST, Cream, [facility], 1 application Topically 2 times a [...] 0 Refills, Maintenance, 09/03/22 13:58:00 EDT, Tablet, [facility], 188, cm, 07/18/22 14:01:00 EDT, Height, 122.63, kg, 11/22/21... Start Date: 09/03/22 Status: Ordered fexofenadine 60 mg oral tablet 1 tablet = 60 mg, By Mouth, 2 times a day, PRN for allergy symptoms, # 20 tablet, 0 Refills, Maintenance, 09/03/22 13:58:00 EDT, Tablet, [facility], Partial fill upon patient request if [...] May cause drowsiness, do notdrive after taking Lithuanian, # 28 tablet, 0 Refills, Maintenance, 04/07/22 [...] 11 Refills, Maintenance, 11/28/21 21:27:00 EDT, Solution, [facility], 188, cm, 11/22/21 16:37:00 EDT, Height, [...] mL, 5 Refills, Maintenance, 08/02/22 14:51:00 EDT, [facility], 188, cm, 07/18/22 14:01:00 EDT, Height, 122.63,kg, 11/22/21 16:37:00 EDT, Dry Weight Start Date: 08/02/22 Status: Ordered latanoprost 0.005% ophthalmic solution 0 Refills, Maintenance, 05/11/20 16:57:00 EST Start Date: 05/11/20 Status: Ordered lidocaine 5% topical ointment See Instructions, PRN Pain , Moderate, 1 APPLICATION TOPICALLY 3 TIMES A DAY, # 50 Gm, 5 Refills, Maintenance, 12/22/21 7:28:00 EDT, [facility], same Rx was sent 11/11 w/ [...] 0 Refills, Maintenance, 01/12/22 7:27:00 EDT, Tablet, [facility], 188, cm, 12/26/21 14:06:00 EDT, Height, 122.63, kg, 11/22/21 16:37:00 EDT, Dry Weight Start Date: 01/12/22 Status: Ordered losartan 100 mg oral tablet See Instructions, TAKE 1 TABLET BY MOUTH DAILY IN AM, # 30 tablet, 4 Refills, Maintenance, 10/06/2315:25:00 EDT, [facility], 188, cm, 07/18/22 14:01:00 EDT, Height, [...] Daily, Take with food PRN back pain Lithuanian, # 14 tablet, 0 Refills, Maintenance, 11/25/21 [...] pain. IDC10: G90.5 CRPS. 28 day supply. [facility]., # 154 tablet, 0 Refills, Maintenance, pain, 12/05/22 17:25:00 EDT,[facility], May partial fill., 12/05/22... Start Date: 12/05/22 Status: Ordered methadone 10 mg oral tablet See Instructions, By mouth. 2 tab in AM, 1.5 midday, 2 in evening;for pain. IDC10: G90.5 CRPS. 28 day supply. 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 Start Date: 04/27/22 Status: Ordered Singulair 10 mg oral tablet 10 mg, 1, tablet, By Mouth, Daily, # 90 tablet, Refills 3, Tot. Refills 3, Maintenance, 03/30/20 21:31:00 EST, Route to Pharmacy Electronically, [facility], 185, cm, 02/25/20 10:29:00 EST, Height, 126.81, kg, 02/25/20 10:29:00 EST, Dry Weight Start Date: 03/30/20 Status: Ordered tamsulosin 0.4 mg oral capsule 0.8 mg, 2, capsule, By Mouth, Daily, dose increase, # 60 capsule, Refills 11, Tot. Refills 11, Maintenance, 07/27/22 11:57:00 EDT, Route to Pharmacy Electronically, [facility], 188, cm, 07/18/22 14:01:00 EDT, Height, [...] Intramuscular, Every 14 days, IM or subcutaneous. [facility]., # 2 mL, 5 Refills, Maintenance, 10/27/22 17:23:00 EDT, [facility], 188, cm, 10/19/22 13:16:00 EDT, Height, 122.63, kg, 11/22/21 16:37:00 EDT, Dry Weight Start Date: 10/27/22 Status: Ordered tiZANidine 4 mg oral tablet 4 mg, 1, tablet, By Mouth, 3 times a day, PRN, # 90 tablet, Refills 11, Tot. Refills 11, Maintenance, as needed for muscle spasm, 08/18/22 8:03:00 EDT, Route to Pharmacy Electronically, [facility], 188, cm, 07/18/22 14:01:00 EDT, Height, 122... Start Date: 08/18/22 Status: Ordered traZODone 100 mg oral tablet TAKE ONE TO TWO TABLETS BY MOUTH AT BEDTIME NEEDED S. McAnulty Start Date: 05/11/20 Status: Ordered Tylenol Extra Strength 500 mg oral tablet 2 tablet = 1,000 mg, By Mouth, 3 times a day, # 30 tablet, 11 Refills, Maintenance, 03/24/21 21:00:00 EST, [facility], 188, cm, 03/22/21 14:17:00 EST, Height, [...] ? chr regional pain syndrome 4s/p Modified [place] procedure, repair of conjoined tendon of extensor [...] Team Personnel Name: Shoaib An RN Position: [facility] RN Supv Member Role: Primary Care Nurse Name: Vamshi Man MD Position: [facility] Physician - Primary Care Member Role: PCP Address: Address: [address] [place] [address]- Name: Miki Rodriguez MD Position: [facility] Renal MD Member Role: Lifetime Consulting Physician Address: Address: [address] [facility] [place] [address]- Care Team Related Persons Name: BRANDON MTZ Address: home [address] [place] [address] Name: BRANDON BARKER Address: home [address] [place] [address] Name: ROSALINDA BERTRAND Address: home [address] [place] [address]
--- OUTSIDE RECORDS SUMMARY | 2023-10-11 08:19 | XMS_ITS | Continuity of Care Document ---
Author Organization [facility] Address [address] [place] [address]- Care Team Providers Care Medical Legal Investigator Name Role Phone Vamshi Man MD Primary Care Physician Encounter [facility] Date(s): 12/30/19 - 01/29/20 [facility] [address] [address]- [facility] Allergies, Adverse Reactions, Alerts Substance Reaction [...] Elissa Bertrand 11Result Comment: [11/27/2017] REceived at [facility] [place], [place]; ordered by Dr Michael Oliveira 12Location [...] 11/04/19 15:57:00 EDT, Route to Pharmacy Electronically, [facility], 185, cm, 06/24/19 13:00:00 EDT, Height, 127.72, kg, 05/06/19 13:41:00 EST, Dry Weight Start Date: 11/04/19 Status: Ordered AutoCPAP 9-18 with heated humidification AutoCPAP 9-18 with heated humidification, See Instructions, # 1 each, Refills 0, Tot. Refills 0, Maintenance, use overnight and naps from [facility], 11/04/18 12:28:22 EDT, Compound Start Date: [...] 2 Refills, Maintenance, 01/07/20 14:49:00 EDT, Cream, [facility], 1 application Topically 2 times a day,Instr:apply to penile rash, 185, cm, 01/07/20 13:55:00 EDT, Francheska... Start Date: 01/07/20 Status: Ordered Cozaar 100 mg oral tablet 1 tablet = 100 mg, By Mouth, Daily in AM, # 30 tablet, 11 Refills, Maintenance, 09/16/19 15:00:00 EDT, Tablet, [facility], 185, cm, 06/24/19 13:00:00 EDT, Height, 127.72, kg, 05/06/19 13:41:00 EST, Dry Weight Start Date: 09/16/19 Status: Ordered diclofenac 1% topical gel = 2 Gm, Topically, 4 times a day, PRN for pain, (south korean) not to exceed: 16 gm/day/joint lower limb8 gm/day/joint of upper limb 32 gm/day, # 100 Gm, 1 Refills, Maintenance, 10/27/19 10:15:00 EDT, Gel, [facility], 185, cm, 06/24/19 13:00:... Start Date: [...] 1 Refills, Maintenance, 12/02/19 10:07:00 EDT, Solution, [facility], duplicate rx. remaining refills sent. original [...] tablet, 11 Refills, Maintenance, 01/07/20 14:40:00 EDT, [facility], 185, cm, 01/07/20 13:55:00 EDT, Height, 127.72, kg, 05/06/19 13:41:00 EST, Dry Weight Start Date: 01/07/20 Status: Ordered Lantus Solostar Pen 100 units/mL subcutaneous solution = 90 units, Subcutaneous Infusion, Daily at bedtime, # 15 mL, 5 Refills, Maintenance, 10/09/19 15:22:00 EDT, [facility], duplicate rx. original rx sent 03/18/19. remaining refills sent, 185,cm, 06/24/19 13:00:00 EDT, Height, 127.72, kg, 04/17... Start Date: 10/09/19 Status: Ordered latanoprost 0.005% ophthalmic solution 1 drops, Eyes, Both, Daily at bedtime, cover gap- Mint Machine Operator Dr Broussard, # 2.5 mL, 1 Refills, Maintenance, 02/25/14 10:47:09, Ophth Solution, 1 drops Eyes, Both Daily at bedtime,Instr:cover gap-Mint Machine Operator Dr Broussard Start Date: 02/25/14 Status: Ordered lidocaine 4% topical cream 1 application, Topically, 3 times a day, may interchange 3-5% cream or ointment or 2% gel per insurance coverage., # 60 Gm, 5 Refills, Maintenance, 10/28/19 20:11:00 EDT, [facility], 1 application Topically 3 times a day,Instr:may interchang... Start Date: 10/28/19 Status: Ordered Lipitor 40 mg oral tablet 1 tablet = 40 mg, By Mouth, Daily, # 30 tablet, 5 Refills, Maintenance, 11/04/19 15:57:00 EDT, [facility], 185, cm, 06/24/19 13:00:00 EDT, Height, 127.72, kg, 05/06/19 13:41:00 EST, Dry Weight Start Date: 11/04/19 Status: Ordered metFORMIN 500 mg oral tablet 1 tablet = 500 mg, By Mouth, 2 times a day, with meals. Replaces metformin ER, # 60 tablet, 11 Refills, Maintenance, 06/24/19 15:02:00 EDT, Tablet, [facility], 185, cm, 06/24/19 13:00:00 EDT, Height, [...] tablet, 0 Refills, Maintenance, pain, 02/03/20 21:32:00 EDT,[facility], May partial fill., 02/03/20... Start Date: 02/03/20 Status: Ordered methadone 10 mg oral tablet See Instructions, By mouth. 2 tab in AM, 1.5 midday, 2 in evening;for pain. IDC10: G90.5 CRPS. 28 day supply. [facility]., # 154 tablet, 0 Refills, Maintenance, pain, 03/02/20 21:37:00 EST,[facility], May partial fill., 03/02/20... Start Date: [...] Start Date: 05/15/18 Status: Ordered nystatin-triamcinolone topical 569963 u/gm-0.1% ointment 1 applicator, Topically, 3 times a day, to foreskin area FOR 3 DAYS then switch to other antifungal, # 15 Gm, 1 Refills, Maintenance, 01/07/20 14:48:00 EDT, [facility], 1 applicator Topically 3 times a [...] EDT Start Date: 08/20/18 Status: Ordered Pen [place], 31 G x 8 mm BD Ultra [...] 11/29/18 11:27:43 EDT, Route to Pharmacy Electronically, [id number], [facility] Start Date: 11/29/18 Status: Ordered Testosterone Cypionate = 0.75 mg, Intramuscular, Every 14 days, Adm. today to Lot [id number] exp: 02/2020, 0 Refills, Maintenance, 11/14/18 14:06:08 EDT Start Date: 11/14/18 Status: Ordered testosterone enanthate 200 mg/mL intramuscular solution 0.75 mL, Intramuscular, Every 14 days, [facility], # 5 mL, 5 Refills, Maintenance, 01/06/20 11:17:00 EDT, [facility], 185, cm, 06/24/19 13:00:00 EDT, Height, 127.72, kg, 05/06/19 13:41:00 EST, Dry Weight Start Date: 01/06/20 Status: Ordered testosterone enanthate 200 mg/mL intramuscular solution 0.75 mL, Intramuscular, Every 14 days, [facility], # 5 mL, 5 Refills, Maintenance, 01/11/20 21:30:00 EDT, [facility], 185, cm, 01/07/20 13:55:00 EDT, Height, 127.72, kg, 05/06/19 13:41:00 EST, Dry Weight Start Date: 01/11/20 Status: Ordered tiZANidine 4 mg oral tablet 4 mg, 1, tablet, By Mouth, 3 times a day, PRN, # 90 tablet, Refills 11, Tot. Refills 11, Maintenance, as needed for muscle spasm, 02/04/19 21:34:51 EDT, Route to Pharmacy Electronically, [id number], [facility] Start Date: 02/04/19 Status: Ordered Problem [...] ? chr regional pain syndrome 4s/p Modified [place] procedure, repair of conjoined tendon of extensor [...]
--- OUTSIDE RECORDS SUMMARY | 2023-10-11 08:19 | XMS_ITS | Continuity of Care Document ---
Author Organization [facility] Address Unknown Care Team Providers Care Social Sciences Chair Name Role Phone Vamshi Man MD Primary Care Physician Encounter [facility] Date(s): 05/19/21 - 06/18/21 [facility] Allergies, Adverse [...] Elissa Bertrand 12Result Comment: [11/27/2017] REceived at [facility] [place], [place]; ordered by Dr Michael Oliveira 13Location [...] tablet, 5 Refills, Maintenance, 05/14/21 20:06:00 EST, [facility], 188, cm, 03/22/21 14:17:00 EST, Height, 125.2, kg, 06/20/20 14:28:00 EST, Dry Weight Start Date: 05/14/21 Status: Ordered atorvastatin 40 mg oral tablet 1 tablet, By Mouth, Daily, # 90 tablet, 1 Refills, [facility], 188, cm, 03/22/21 14:17:00EST, Height, 125.2, [...] 2 Refills, Maintenance, 01/07/20 14:49:00 EDT, Cream, [facility], 1 application Topically 2 times a day,Instr:apply to penile rash, 185, cm, 01/07/20 13:55:00 EDT, Francheska... Start Date: 01/07/20 Status: Ordered Cozaar 100 mg oral tablet 1 tablet = 100 mg, By Mouth, Daily in AM, # 30 tablet, 11 Refills, Maintenance, 09/22/20 9:41:00 EDT, Tablet, [facility], duplicate rx. original sent 09/16/19. remaining [...] 06/25/20 15:39:00 EST, Route to Pharmacy Electronically, [facility], Partial f... Start Date: 06/25/20 Status: Ordered diclofenac 1% topical gel = 2 Gm, Topically, 4 times a day, PRN for pain, (pashto) not to exceed: 16 gm/day/joint lower limb8 gm/day/joint of upper limb 32 gm/day may interchange for cream, # 100 Gm, 5 Refills, Maintenance,07/08/20 15:35:00 EDT, Gel, [facility] Start Date: 07/08/20 Status: Ordered docusate [...] mL, 11 Refills, Maintenance, 01/14/21 18:16:00 EDT, [facility], 188, cm, 12/22/20 9:45:00 EDT, Height, 125.2, kg, 06/20/20 14:28:00EST, Dry Weight Start Date: 01/14/21 Status: Ordered latanoprost 0.005% ophthalmic solution 0 Refills, Maintenance, 05/11/20 16:57:00 EST Start Date: 05/11/20 Status: Ordered lidocaine 5% topical ointment See Instructions, 1 APPLICATION TOPICALLY 3 TIMES A DAY, # 70.88 Gm, 4 Refills, Acute, [facility], 14, 1 APPLICATION TOPICALLY 3 TIMES [...] 3 Refills, Maintenance, 07/08/20 15:40:00 EDT, Tablet, [facility], Duplicate rx-Original rx sent06/22/20. Resent., 188, cm, 07/08/20 13:42:00 EDT, He... Start Date: 07/08/20 Status: Ordered methadone 10 mg oral tablet See Instructions, By mouth. 2 tab in AM, 1.5 midday, 2 in evening;for pain. IDC10: G90.5 CRPS. 28 day supply. [facility]., # 154 tablet, 0 Refills, Maintenance, pain, 05/24/21 22:11:00 EST,[facility], May partial fill., 02/08/22... Start Date: 05/24/21 Status: Ordered methadone 10 mg oral tablet See Instructions, By mouth. 2 tab in AM, 1.5 midday, 2 in evening;for pain. IDC10: G90.5 CRPS. 28 day supply. [facility]., # 154 tablet, 0 Refills, Maintenance, [...] 0 Refills, Soft Stop, 05/25/21 10:17:00 EST, [facility], 188, cm, 05/25/21 9:26:00 EST, Height, 125.2, kg, 06/20/20 14:28:00 EST, Dry Weight Start Date: 05/25/21 Status: Ordered nystatin-triamcinolone topical 333798 u/gm-0.1% ointment 1 applicator, Topically, 3 times a day, to foreskin area FOR 3 DAYS then switch to other antifungal, # 15 Gm, 1 Refills, Maintenance, 05/25/21 10:20:00 EST, [facility], 1 applicator Topically 3 [...] EDT Start Date: 08/20/18 Status: Ordered Pen [place], 31 G x 8 mm BD Ultra [...] mL, 11 Refills, Maintenance, 05/25/21 10:14:00 EST, [facility], Partial fill upon patient request if the prescription is for a schedule II op... Start Date: 05/25/21 Status: Ordered Singulair 10 mg oral tablet 10 mg, 1, tablet, By Mouth, Daily, # 90 tablet, Refills 3, Tot. Refills 3, Maintenance, 03/30/20 21:31:00 EST, Route to Pharmacy Electronically, [facility], 185, cm, 02/25/20 10:29:00 EST, Height, [...] solution 0.75 mL, Intramuscular, Every 14 days, [facility], # 5 mL, 5 Refills, Maintenance, 03/25/21 1:06:00 EST, [facility], 188, cm, 03/22/21 14:17:00 EST, Height, 125.2, kg, 06/20/20 14:28:00 EST, Dry Weight Start Date: 03/25/21 Status: Ordered tiZANidine 4 mg oral tablet 4 mg, 1, tablet, By Mouth, 3 times a day, PRN, # 90 tablet, Refills 11, Tot. Refills 11, Maintenance, as needed for muscle spasm, 07/08/20 15:40:00 EDT, Route to Pharmacy Electronically, [facility], 188, cm, 07/08/20 13:42:00 EDT, Height, 12... Start Date: 07/08/20 Status: Ordered traZODone 100 mg oral tablet TAKE ONE TO TWO TABLETS BY MOUTH AT BEDTIME NEEDED S. McAnulty Start Date: 05/11/20 Status: Ordered Tylenol Extra Strength 500 mg oral tablet 2 tablet = 1,000 mg, By Mouth, 3 times a day, # 30 tablet, 11 Refills, Maintenance, 03/24/21 21:00:00 EST, [facility], 188, cm, 03/22/21 14:17:00 EST, Height, 125.2, kg, 06/20/20 14:28:00 EST, Dry Weight Start Date: 03/24/21 Status: Ordered Vitamin D3 1000 intl units oral tablet 1 tablet, By Mouth, Daily, # 30 tablet, 5 Refills, [facility], 188, cm, 03/22/21 14:17:00EST, Height, 125.2, [...]
--- OUTSIDE RECORDS SUMMARY | 2023-10-11 08:19 | XMS_ITS | Continuity of Care Document ---
Author Organization [facility] Address [address] [place] [address]- Care Team Providers Care Apprentice Embalmer Name Role Phone Vamshi Man MD Primary Care Physician [phone] Encounter [facility] Date(s): 05/15/22 - 05/22/22 [facility] [address] [place] [address]- Attending Physician: Louisa Aguirre MD Referring Physician: Vamshi Man MD Allergies, Adverse Reactions, Alerts Substance Reaction Severity Status penicillin 1 rash Resolved Latex RASH Active Other Food Allergy fresh peaches - itch y mouth, throat and lips swell Active 1rash per mother as child. Did take a penicillin for treatment of H pylori per pt w/o problem. Immunizations Given and Recorded Vaccine Date Status Refusal Reason [id number] 12y+ bivalent booster vax 02/16/22 Given pneumococcal 20-valent conjugate vaccine 02/16/22 Given Influenza Virus Vaccine (oldterm) 1 01/27/22 Recor ded Influenza Virus Vaccine (oldterm) 01/26/21 Recorde d SARS-CoV-2 mRNA ([id number]) vax 11/11/21 Given SARS-CoV-2 (COVID-19) mRNA BNT-162b2 [...] [11/27/2017] REceived at [facility] [place], [place]; ordered by Dr Michael Oliveira 14Location [...] tablet, 5 Refills, Maintenance, 11/20/21 13:03:00 EDT, [facility], 188, cm, 11/11/21 12:46:00 EDT, Height, 125.2, kg, 06/20/20 14:28:00 EST, Dry Weight Start Date: 11/20/21 Status: Ordered atorvastatin 40 mg oral tablet 1 tablet, By Mouth, Daily, # 90 tablet, 1 Refills, Maintenance, 04/10/22 12:34:00 EST, [facility], 188, cm, 02/16/22 13:07:00 EDT, Height, [...] 0 Refills, Maintenance, 05/15/22 16:24:00 EST, Tablet, [facility], Partial fill upon patient request if [...] 2 Refills, Maintenance, 04/27/22 23:43:00 EST, Cream, [facility], 1 application Topically 2 times a day,Instr:apply to penile rash, 188, cm, 04/27/22 13:44:00 EST, Hechidi... Start Date: 04/27/22 Status: Ordered diclofenac 1% topical gel = 2 Gm, Topically, 4 times a day, PRN for pain, (mauritanian) not to exceed: 16 gm/day/joint lower limb8 gm/day/joint of upper limb 32 gm/day may interchange for cream, # 100 Gm, 11 Refills, Maintenance, 04/15/22 13:02:00 EST, Gel, [facility]... Start Date: 04/15/22 Status: Ordered docusate [...] May cause drowsiness, do notdrive after taking Jamaican, # 28 tablet, 0 Refills, Maintenance, 04/07/22 15:51:00 EST, [facility], 188, cm, 02/16/22 13:07:00 EDT, Heigh... Start [...] 11 Refills, Maintenance, 11/28/21 21:27:00 EDT, Solution, [facility], 188, cm, 11/22/21 16:37:00 EDT, Height, [...] mL, 5 Refills, Maintenance, 01/23/22 8:43:00 EDT, [facility], 188, cm, 12/26/21 14:06:00 EDT, Height, 122.63, kg, 11/22/21 16:37:00 EDT, Dry Weight Start Date: 01/23/22 Status: Ordered latanoprost 0.005% ophthalmic solution 0 Refills, Maintenance, 05/11/20 16:57:00 EST Start Date: 05/11/20 Status: Ordered lidocaine 5% topical ointment See Instructions, PRN Pain , Moderate, 1 APPLICATION TOPICALLY 3 TIMES A DAY, # 50 Gm, 5 Refills, Maintenance, 12/22/21 7:28:00 EDT, [facility], same Rx was sent 11/11 w/ [...] 30 tablet, 5 Refills, 03/20/22 10:07:00 EST, [facility], 188, cm, 02/16/22 13:07:00 EDT, Height, [...] Daily, Take with food PRN back pain Jamaican, # 14 tablet, 0 Refills, Maintenance, 11/25/21 [...] Refills, Maintenance, 11/22/21 17:53:00 EDT, ER Tablet, [facility], Partial fill upon patient requestif the prescription is for a schedule II opioid alessandra... Start Date: 11/22/21 Status: Ordered methadone 10 mg oral tablet See Instructions, By mouth. 2 tab in AM, 1.5 midday, 2 in evening;for pain. IDC10: G90.5 CRPS. 28 day supply. [facility]., # 154 tablet, 0 Refills, Maintenance, pain, 07/18/22 23:44:00 EDT,[facility], May partial fill., 07/18/22... Start Date: 07/18/22 Status: Ordered methadone 10 mg oral tablet See Instructions, By mouth. 2 tab in AM, 1.5 midday, 2 in evening;for pain. IDC10: G90.5 CRPS. 28 day supply. [facility]., # 154 tablet, 0 Refills, Maintenance, pain, 05/23/22 23:44:00 EST,[facility], August partial fill., 05/23/22... Start Date: 05/23/22 Status: Ordered methadone 10 mg oral tablet See Instructions, By mouth. 2 tab in AM, 1.5 midday, 2 in evening;for pain. IDC10: G90.5 CRPS. 28 day supply. [facility]., # 154 tablet, 0 Refills, Maintenance, pain, 06/20/22 23:45:00 EST,[facility], August partial fill., 06/20/22... Start Date: [...] tablet, 11 Refills, Maintenance, 11/22/21 17:58:00 EDT, [facility], Partial fill upon [...] 1 Refills, Soft Stop, 02/16/22 23:38:00 EDT, [facility], 188, cm, 02/16/22 13:07:00 EDT, Height,122.63, [...] EDT Start Date: 02/16/22 Status: Ordered Pen [place], 31 G x 8 mm BD Ultra [...] mL, 11 Refills, Maintenance, 04/27/22 23:40:00 EST, [facility], 188, cm, 04/27/22 13:44:00 EST, Height, 122.63, kg, 11/22/21 16:37:00 EDT,... Start Date: 04/27/22 Status: Ordered Singulair 10 mg oral tablet 10 mg, 1, tablet, By Mouth, Daily, # 90 tablet, Refills 3, Tot. Refills 3, Maintenance, 03/30/20 21:31:00 EST, Route to Pharmacy Electronically, [facility], 185, cm, 02/25/20 10:29:00 EST, Height, 126.81, kg, 02/25/20 10:29:00 EST, Dry Weight Start Date: 03/30/20 Status: Ordered tamsulosin 0.4 mg oral capsule 0.4 mg, 1, capsule, By Mouth, Daily, Per urology, # 30 capsule, Refills 11, Tot. Refills 11, Maintenance, 02/16/22 23:29:00 EDT, Route to Pharmacy Electronically, [facility], 188, cm, 02/16/22 13:07:00 EDT, Height, [...] Intramuscular, Every 14 days, IM or subcutaneous. [facility]., # 2 mL, 5 Refills, Maintenance, 02/05/22 22:55:00 EDT, [facility], 188, cm, 12/26/21 14:06:00 EDT, Height, 122.63, kg, 11/22/21 16:37:00 EDT, Dry Weight Start Date: 02/05/22 Status: Ordered tiZANidine 4 mg oral tablet 4 mg, 1, tablet, By Mouth, 3 times a day, PRN, # 90 tablet, Refills 11, Tot. Refills 11, Maintenance, as needed for muscle spasm, 08/12/21 11:09:00 EDT, Route to Pharmacy Electronically, [facility], 188, cm, 07/27/21 8:34:00 EDT, Height, 125... Start Date: 08/12/21 Status: Ordered traZODone 100 mg oral tablet TAKE ONE TO TWO TABLETS BY MOUTH AT BEDTIME NEEDED Damaris Morales Start Date: 05/11/20 Status: Ordered Tylenol Extra Strength 500 mg oral tablet 2 tablet = 1,000 mg, By Mouth, 3 times a day, # 30 tablet, 11 Refills, Maintenance, 03/24/21 21:00:00 EST, [facility], 188, cm, 03/22/21 14:17:00 EST, Height, 125.2, kg, 06/20/20 14:28:00 EST, Dry Weight Start Date: 03/24/21 Status: Ordered Vitamin D3 1000 intl units oral tablet 1 tablet, By Mouth, Daily, for 30 days, # 30 tablet, 11 Refills, Physician Stop 10/30/22 17:07:00 EDT, 11/04/21 17:07:00 EDT, [facility], 188, cm, 09/15/21 12:49:00 EDT, Height, [...] oldest [Reference Range]: 1 Height 188 cm (05/15/22 10:16 AM) Oxygen Saturation [94-100 %] 98 % (05/15/22 10:16 AM) Pulse Rate [55-90 bpm] 108 bpm *H* (05/15/22 10:16 AM) Blood Pressure [90-138/55-84 mm Hg] 123/ 86mm Hg (05/15/22 10:16 AM) Respiratory Rate [16-30 br/min] 18 br/mi n (05/15/22 10:16 AM) Temperature [96.8-100.4 DegF] 97.9 DegF (05/15/22 10:16 AM) Mode of Delivery (Oxygen) Room air (05/15/22 10:16 AM) Blood pressure sites Arm, right (05/15/22 10:16 AM) Temperature Route Temporal (05/15/22 10:16 AM) Social History Social History Type Response Smoking Status Never (less than 100 in lifetime); Exposure to Secondhand Smoke: No entered on: 04/27/22 Sex Male Note * Caprice Ricci: PERFORM, SIGN, VERIFY Event Display: Patient Education/Instruction Authored Date: [id number] [facility] *[facility] Clinical Summary Name ELISSA BERTRAND Age 57 Years 1965 PCP Donovan DE LOS SANTOS, Vamshi Oshea PCP Visit Date 05/15/2022 09:58:00 Additional Instructions: Scheduled Appointments?? Future Appointments ?*[facility] ?Phone:??--?Fax:??-- ?Appt. Date:??05/18/2022?9:30 AM ?Scheduled Provider:??[facility] Nurse Purple Team ?*[facility] ?[address]??[place],??[place],??[address] ?Phone:??--?Fax:??-- ?Appt. Date:??07/18/2022?1:00 PM ?Scheduled Provider:??Vamshi Man MD Follow-Up Instructions ?? Diagnosis Medications: Please continue your medications until treatment is completed or stopped by your provider. Discuss any questions related to medications with your provider. Medications to Continue with No Changes These medications were not printed or sent to your pharmacy Acetaminophen (Tylenol Extra Strength 500 mg oral tablet) 2 tab(s) Oral 3 times a day. Refills: 11. Next Dose: Albuterol (albuterol CFC free 90 mcg/inh inhalation aerosol) 2 puff(s) Oral every 4 hours. as needed. Next Dose: Alprazolam (ALPRAZolam 2 mg oral tablet) Dr Tesha Schwarz. Next Dose: Aspirin (Aspirin Low Dose 81 mg oral delayed release tablet) 1 tab(s) Oral Daily. Refills: 5. Next Dose: Atorvastatin (atorvastatin 40 mg oral tablet) 1 tab(s) Oral Daily. Refills: 1. Next Dose: Brimonidine Ophthalmic (brimonidine 0.15% ophthalmic solution) Next Dose: BuPROpion (buPROPion 300 mg/24 hours (XL) oral tablet, extended release) 1 tab(s) Oral Daily. Alissa. Next Dose: Cetirizine (cetirizine 10 mg oral tablet) TAKE 1 TABLET ONCE A DAY IN THE EVENING FOR 90 DAYS. Next Dose: Cholecalciferol (Vitamin D3 1000 intl units oral tablet) 1 tab(s) Oral Daily for 30 Days. Refills: 11. Next Dose: Clotrimazole Topical (clotrimazole 1% topical cream) 1 jorge Topically twice a day. apply to penile rash. Refills: 2. Next Dose: Diclofenac Topical (diclofenac 1% topical gel) 2 gram Topically 4 times a day as needed for pain. (mauritanian) not to exceed: 16 gm/day/joint lower limb 8 gm/day/joint of upper limb 32 gm/day may interchange for cream. Refills: 11. Next Dose: Duloxetine (duloxetine 60 mg oral enteric coated capsule) TAKE 1 CAPSULE BY MOUTH ONCE A DAY WITH MEALS. Next Dose: Durable Medical Equipment (22G or 23G 1.5 inch hypodermic needle) for testosterone. Use 21G, 22G or23G needle for injection into abdominal fat, anterior thigh or lateral gluteal muscle. Refills: 1. Next Dose: Durable Medical Equipment (3 mL syringe with 0.5-1.5 18G-21G needle) for testosterone, withdrawingfrom vial.. Refills: 1. Next Dose: Durable Medical Equipment (Alcohol Wipes) for insulin and glucose testing up to 7x/wk total. Dx: E11. Refills: 5. Next Dose: Durable Medical Equipment (AutoCPAP 9-18 with heated humidification) use overnight and naps from Regional. Refills: 0. Next Dose: Durable Medical Equipment (Freestyle Lite Monitor) Dx: E11 (DM2) (on insulin) Z79.4.. Refills: 0. Next Dose: Durable Medical Equipment (Glucose Monitor) Embrace glucometer. Dx: E11, Z79. 4.; as needed diabetes mellitus 2. Refills: 0. Next Dose: Durable Medical Equipment (Home Blood Pressure Monitor) electronic sensor. Refills: 0. Next Dose: Durable Medical Equipment (Lancets) 3x per day for type 2 diabetes m. Dx: E11.. Refills: 5. Next Dose: Durable Medical Equipment (Pen [place], 31 G x 8 mm BD Ultra Fine III) use 2- 5x/day Type 2 DiabetesMellitus on Lantus and Humalog insulin with pen. Refills: 11. Next Dose: Durable Medical Equipment (Test Strips) Glucometer test strips. Dx Diabetes M-2 on insulin (ICD-10:E11, Z79. 4). 3x per day. Refills: 11. Next Dose: Epinephrine (EpiPen 2-Deejay 0.3 mg injectable kit) Maria G Collado/Melissa. Next Dose: Fluticasone (Flovent HFA 110 mcg/inh inhalation aerosol) 2 puff(s) Inhalation twice a day. Next Dose: Fluticasone Nasal (fluticasone 50 mcg/inh nasal spray) Next Dose: Gabapentin (gabapentin 600 mg oral tablet) 1 tab(s) Oral twice a day for 14 Days. PRN back pain andsciatica May cause drowsiness, do not drive after taking Jamaican. Refills: 0. Next Dose: Insulin Glargine (Lantus Solostar Pen 100 units/mL subcutaneous solution) INJECT 90 UNITS SUBCUTANEOUS INFUSION DAILY AT BEDTIME. Refills: 5. Next Dose: Insulin Lispro (Humalog Kwik Pen 100 units/mL subcutaneous injection) 10 units Subcutaneous Injection 1-3 times a day before meals.. Refills: 11. Next Dose: Ketotifen Ophthalmic (ketotifen 0.025% ophthalmic solution) INSTILL 1 DROP INTO AFFECTED EYE TWICE A DAY Dr Poe. Next Dose: Latanoprost Ophthalmic (latanoprost 0.005% ophthalmic solution) Next Dose: Lidocaine Topical (lidocaine 5% topical ointment) 1 APPLICATION TOPICALLY 3 TIMES A DAY; as needed Pain , Moderate. Refills: 5. Next Dose: linaclotide (Linzess 290 mcg oral capsule) 1 capsule Oral Daily. Next Dose: Lorazepam (LORazepam 1 mg oral tablet) 2 tablets By Mouth 1 hours prior to MRI; as needed for anxiety. Refills: 0. Next Dose: Losartan (losartan 100 mg oral tablet) 1 tab(s) Oral Daily in the morning. Refills: 5. Next Dose: Magnesium Oxide (magnesium oxide 400 mg oral tablet) 1 tab(s) Oral Daily. Refills: 11. Next Dose: Meloxicam (meloxicam 15 mg oral tablet) 1 tab(s) Oral Daily for 14 Days. Take with food PRN back pain Jamaican. Refills: 0. Next Dose: Metformin (metFORMIN 750 mg oral tablet, extended release) 1 tab(s) Oral Daily. [replaces the metformin 500mg bid]. Refills: 11. Next Dose: Methadone (methadone 10 mg oral tablet) By mouth. 2 tab in AM, 1.5 midday, 2 in evening;for pain. IDC10: G90.5 CRPS. 28 day supply. [facility].. Refills: 0. Next Dose: Methadone (methadone 10 mg oral tablet) By mouth. 2 tab in AM, 1.5 midday, 2 in evening;for pain. IDC10: G90.5 CRPS. 28 day supply. [facility].. Refills: 0. Next Dose: Methadone (methadone 10 mg oral tablet) By mouth. 2 tab in AM, 1.5 midday, 2 in evening;for pain. IDC10: G90.5 CRPS. 28 day supply. [facility].. Refills: 0. Next Dose: Methadone (methadone 10 mg oral tablet) By mouth. 2 tab in AM, 1.5 midday, 2 in evening;for pain. IDC10: G90.5 CRPS. 28 day supply. [facility].. Refills: 0. Next Dose: Metoclopramide 10 Milligram Oral 3 times a day before meals and bedtime. Next Dose: Miscellaneous Rx (docusate sodium/sennosides 50/8.6mg) 1-3 tablet Oral twice a day as needed Constipation. Refills: 11. Next Dose: Miscellaneous Rx (LUBRIC TEARS CALE 0.4-0.3% Milliliters) INSTILL 1 DROP FOUR TIMES DAILY EACH EYE. Next Dose: Montelukast (Singulair 10 mg oral tablet) 1 tab(s) Oral Daily. Refills: 3. Next Dose: Multivitamin (multivitamin Multiple Vitamins oral tablet) 1 tab(s) Oral Daily. B complex multivitamin. Refills: 11. Next Dose: nalOXONE (Narcan 4 mg/0.1 mL nasal spray) 4 Milligram Nares, Both once. may repeat every 2 to 3 minutes until patient responds. Refills: 1. Next Dose: Naproxen (naproxen 500 mg oral tablet) 1 tab(s) Oral twice a day. Next Dose: Olopatadine Ophthalmic (olopatadine 0.1% ophthalmic solution) 1 Drops Both eyes twice a day. Next Dose: Ondansetron (ondansetron 4 mg oral tablet) TAKE 1 TABLET BY MOUTH EVERY 8 HOURS NEEDED FOR NAUSEA Idalia Sandoval. Next Dose: Pantoprazole (pantoprazole 40 mg oral delayed release tablet) Next Dose: Prazosin (prazosin 1 mg oral capsule) 2 Milligram. AT BEDTIME. Next Dose: semaglutide (semaglutide 8 mg/3 mL (2 mg dose) subcutaneous solution) 2 Milligram Subcutaneous Infusion every 7 days. in the abdomen, thigh, or upper arm. Dose increase. Refills: 11. Next Dose: Tamsulosin (tamsulosin 0.4 mg oral capsule) 1 capsule Oral Daily. Per urology. Refills: 11. Next Dose: Testosterone (testosterone enanthate 200 mg/mL intramuscular solution) 0.75 Milliliter Intramuscular Every 14 days. IM or subcutaneous. [facility].. Refills: 5. Next Dose: Tizanidine (tiZANidine 4 mg oral tablet) 1 tab(s) Oral 3 times a day as needed as needed for musclespasm. Refills: 11. Next Dose: Trazodone (traZODone 100 mg oral tablet) TAKE ONE TO TWO TABLETS BY MOUTH AT BEDTIME NEEDED Damaris Morales. Next Dose: Zolpidem (Ambien 10 mg oral tablet) 1 tab(s) Oral Daily at Bedtime as needed as needed for sleep. Dr Tesha Schwarz. Next Dose: Allergy Info:?? Other Food Allergy; Latex; penicillin Medications Given This Visit Future Orders ?No future orders Vital Signs Height 188 cm Weight BMI Blood Pressure 123 mm Hg/86 mm Hg Temperature 97.9 DegF Pulse Rate 108 bpm Respiratory Rate 18 br/min 02 Sat Mode of Delivery 98 %/Room air You can now view a summary of your hospital visit from the comfort of your home through a free online portal called [employer]oh. [employer] is a website that allows you to securely view your medical information including discharge summary, medications and follow-up visits. ??You can alsosend a secure electronic message to your doctor???s office to request appointments, renew medications or just ask a question. You can enroll at [email or web address] or register during your next office visit. [...] primary care provider, you may find a [facility] provider by calling [facility] [employer] Link at [phone]. For information about the plan of care [...] Name: Shoaib An RN Position: [facility] RN Supv Member Role: Primary Care Nurse Name: Vamshi Man MD Position: [facility] Primary Care Physician Member Role: PCP Address: Address: [address] [place] [id number] Name: Miki Rodriguez MD Position: [facility] Renal MD Member Role: Lifetime Consulting Physician Address: Address: [address] [facility] [place] [address]- [place] Care Team Related Persons Name: BRANDON MTZ Address: home [address] [place] [address] Name: BRANDON BARKER Address: home [address] [place] [address] Name: ROSALINDA BERTRAND Address: home [address] [place] [address]
--- OUTSIDE RECORDS SUMMARY | 2023-10-11 08:19 | XMS_ITS | Continuity of Care Document ---
Author Organization [facility] Address Unknown Care Team Providers Care Deputy Building Guard Name Role Phone Vamshi Man MD Primary Care Physician [phone] [place] [facility] [place] 06/30/21 - 08/13/21 [facility] Attending Physician: Not on Staff, Attending [...] PFEIFFER MD 5Result Comment: [01/15/2013] ordered by Vmashi Man MD 6Admin Note: VIS 11/08/10 GIVEN 7Admin Note: VIS 11/08/2010 Fluzone given 8Admin Note: ADMINISTERED BY R.N. 9Admin Note: sanofi-pasteur 10Location History: PH 11Location History: Elissa Bertrand 12Result Comment: [11/27/2017] REceived at [facility] at [place], [place]; ordered by Dr Michael Oliveira 13Location [...] tablet, 5 Refills, Maintenance, 05/14/21 20:06:00 EST, [facility], 188, cm, 03/22/21 14:17:00 EST, Height, 125.2, kg, 06/20/20 14:28:00 EST, Dry Weight Start Date: 05/14/21 Status: Ordered atorvastatin 40 mg oral tablet 1 tablet, By Mouth, Daily, # 90 tablet, 1 Refills, [facility], 188, cm, 03/22/21 14:17:00EST, Height, 125.2, [...] 2 Refills, Maintenance, 01/07/20 14:49:00 EDT, Cream, [facility], 1 application Topically 2 times a day,Instr:apply to penile rash, 185, cm, 01/07/20 13:55:00 EDT, [facility]... Start Date: 01/07/20 Status: Ordered Cozaar 100 mg oral tablet 1 tablet = 100 mg, By Mouth, Daily in AM, # 30 tablet, 11 Refills, Maintenance, 09/22/20 9:41:00 EDT, Tablet, [facility], duplicate rx. original sent 09/16/19. remaining [...] 06/25/20 15:39:00 EST, Route to Pharmacy Electronically, [facility], Partial f... Start Date: 06/25/20 Status: Ordered diclofenac 1% topical gel = 2 Gm, Topically, 4 times a day, PRN for pain, (vietnamese) not to exceed: 16 gm/day/joint lower limb8 gm/day/joint of upper limb 32 gm/day may interchange for cream, # 100 Gm, 5 Refills, Maintenance,07/08/20 15:35:00 EDT, Gel, [facility] Start Date: 07/08/20 Status: Ordered docusate [...] tablet, 11 Refills, Maintenance, 07/25/21 20:18:00 EDT, [facility], 188, cm, 06/28/21 16:20:00 EDT, Height, [...] mL, 11 Refills, Maintenance, 01/14/21 18:16:00 EDT, [facility], 188, cm, 12/22/20 9:45:00 EDT, Height, 125.2, kg, 06/20/20 14:28:00EST, Dry Weight Start Date: 01/14/21 Status: Ordered latanoprost 0.005% ophthalmic solution 0 Refills, Maintenance, 05/11/20 16:57:00 EST Start Date: 05/11/20 Status: Ordered lidocaine 5% topical ointment See Instructions, 1 APPLICATION TOPICALLY 3 TIMES A DAY, # 70.88 Gm, 4 Refills, Acute, [facility], 14, 1 APPLICATION TOPICALLY 3 TIMES A DAY, 188, cm, 09/22/20 8:33:00 EDT, Height, 125.2, kg, 06/20/20 14:28:00 EST, Dry Weight Start Date: 11/08/20 Status: Ordered LORazepam 1 mg oral tablet See Instructions, PRN for anxiety, 2 tablets By Mouth 1 hours prior to MRI, # 2 tablet, 1 Refills, Maintenance, 05/25/21 10:06:00 EST, Tablet, [facility], 188, cm, 05/25/21 9:26:00 EST, [...] 0 Refills, Maintenance, pain, 07/19/21 1:23:00 EDT, [facility], May partial fill., 07/19/21,... Start Date: 07/19/21 Status: Ordered methadone 10 mg oral tablet See Instructions, By mouth. 2 tab in AM, 1.5 midday, 2 in evening;for pain. IDC10: G90.5 CRPS. 28 day supply. [facility]., # 154 tablet, 0 Refills, Maintenance, pain, 08/16/21 11:07:00 EDT,[facility], May partial fill., 08/16/21... Start Date: 08/16/21 Status: Ordered Metoclopramide = 10 mg, By Mouth, 3 times a day before meals and bedtime, 0 Refills, Maintenance, 08/20/18 13:55:26 EDT Start Date: 08/20/18 Status: Ordered multivitamin Multiple Vitamins oral tablet 1 tablet, By Mouth, Daily, B complex multivitamin, # 30 tablet, 11 Refills, Maintenance, 12/22/20 10:52:00 EDT, [facility], Partial fill upon patient request if the prescription is for a schedule II opioid drug., 1 tablet By Mouth Daily,Inst... Start Date: 12/22/20 Status: Ordered Narcan 4 mg/0.1 mL nasal spray = 4 mg, Nares, Both, Once, may repeat every 2 to 3 minutes until patient responds, # 2 each, 0 Refills, Soft Stop, 05/25/21 10:17:00 EST, [facility], 188, cm, 05/25/21 9:26:00 EST, Height, 125.2, kg, 06/20/20 14:28:00 EST, Dry Weight Start Date: 05/25/21 Status: Ordered nystatin-triamcinolone topical 767652 u/gm-0.1% ointment 1 applicator, Topically, 3 times a day, to foreskin area FOR 3 DAYS then switch to other antifungal, # 15 Gm, 1 Refills, Maintenance, 05/25/21 10:20:00 EST, [facility], 1 applicator Topically 3 times a [...] EDT Start Date: 08/20/18 Status: Ordered Pen [place], 31 G x 8 mm BD Ultra [...] mL, 11 Refills, Maintenance, 05/25/21 10:14:00 EST, [facility], Partial fill upon patient request if the prescription is for a schedule II op... Start Date: 05/25/21 Status: Ordered Singulair 10 mg oral tablet 10 mg, 1, tablet, By Mouth, Daily, # 90 tablet, Refills 3, Tot. Refills 3, Maintenance, 03/30/20 21:31:00 EST, Route to Pharmacy Electronically, [facility], 185, cm, 02/25/20 10:29:00 EST, Height, [...] (ICD-10: E11, Z79. 4). 3x per day, 08/12/21 11:16:00 EDT, Compound, 188, cm,07/27/21 8:34:00 EDT, Height, 125.2, kg, 06/20/20... Start Date: 08/12/21 Status: Ordered testosterone enanthate 200 mg/mL intramuscular solution 0.75 mL, Intramuscular, Every 14 days, [facility], # 5 mL, 5 Refills, Maintenance, 07/27/21 9:48:00 EDT, [facility], 188, cm, 07/27/21 8:34:00 EDT, Height, 125.2, kg, 06/20/20 14:28:00 EST, Dry Weight Start Date: 07/27/21 Status: Ordered tiZANidine 4 mg oral tablet 4 mg, 1, tablet, By Mouth, 3 times a day, PRN, # 90 tablet, Refills 11, Tot. Refills 11, Maintenance, as needed for muscle spasm, 08/12/21 11:09:00 EDT, Route to Pharmacy Electronically, [facility], 188, cm, 07/27/21 8:34:00 EDT, Height, 125... Start Date: 08/12/21 Status: Ordered traZODone 100 mg oral tablet TAKE ONE TO TWO TABLETS BY MOUTH AT BEDTIME NEEDED S. Carmen Start Date: 05/11/20 Status: Ordered Tylenol Extra Strength 500 mg oral tablet 2 tablet = 1,000 mg, By Mouth, 3 times a day, # 30 tablet, 11 Refills, Maintenance, 03/24/21 21:00:00 EST, [facility], 188, cm, 03/22/21 14:17:00 EST, Height, 125.2, kg, 06/20/20 14:28:00 EST, Dry Weight Start Date: 03/24/21 Status: Ordered Vitamin D3 1000 intl units oral tablet 1 tablet, By Mouth, Daily, # 30 tablet, 5 Refills, [facility], 188, cm, 03/22/21 14:17:00EST, Height, 125.2, [...]
--- OUTSIDE RECORDS SUMMARY | 2023-10-11 08:19 | XMS_ITS | Continuity of Care Document ---
Author Organization [facility] Address [address] [place] [address]- Care Team Providers Care Talent Acquisition Sourcer Name Role Phone Vamshi Man MD Primary Care Physician [phone] [place]counter [facility] [place] Date(s): 05/15/22 - 06/14/22 [facility] [address] [place] [address]- Attending Physician: Savanna Liu Admitting Physician: Savanna [...] and Recorded Vaccine Date Status Refusal Reason [id number] 12y+ bivalent booster vax 02/16/22 Given pneumococcal 20-valent conjugate vaccine 02/16/22 Given Influenza Virus Vaccine (oldterm) 1 01/27/22 Recor ded Influenza Virus Vaccine (oldterm) 01/26/21 Recorde d SARS-CoV-2 mRNA ([id number]) vax 11/11/21 Given SARS-CoV-2 (COVID-19) mRNA BNT-162b2 [...] Elissa Bertrand 13Result Comment: [11/27/2017] REceived at [facility] at [place], [place]; ordered by Dr Michael Oliveira 14Location [...] tablet, 5 Refills, Maintenance, 11/20/21 13:03:00 EDT, [facility], 188, cm, 11/11/21 12:46:00 EDT, Height, 125.2, kg, 06/20/20 14:28:00 EST, Dry Weight Start Date: 11/20/21 Status: Ordered atorvastatin 40 mg oral tablet 1 tablet, By Mouth, Daily, # 90 tablet, 1 Refills, Maintenance, 04/10/22 12:34:00 EST, [facility], 188, cm, 02/16/22 13:07:00 EDT, Height, [...] 0 Refills, Maintenance, 05/15/22 16:24:00 EST, Tablet, [facility], Partial fill upon patient request if [...] 2 Refills, Maintenance, 04/27/22 23:43:00 EST, Cream, [facility], 1 application Topically 2 times a day,Instr:apply to penile rash, 188, cm, 04/27/22 13:44:00 EST, Heigh... Start Date: 04/27/22 Status: Ordered diclofenac 1% topical gel = 2 Gm, Topically, 4 times a day, PRN for pain, (puerto rican) not to exceed: 16 gm/day/joint lower limb8 gm/day/joint of upper limb 32 gm/day may interchange for cream, # 100 Gm, 11 Refills, Maintenance, 04/15/22 13:02:00 EST, Gel, [facility]... Start Date: 04/15/22 Status: Ordered docusate [...] cm, 02/16/22 13:07:00 EDT, Height, 122.63, kg, 08/09/22 16:37:00 EDT, Dry Weight Start Date: 02/16/22 Status: Ordered gabapentin 600 mg oral tablet 1 tablet = 600 mg, By Mouth, 2 times a day, PRN back pain and sciatica May cause drowsiness, do notdrive after taking Japanese, # 28 tablet, 0 Refills, Maintenance, 04/07/22 15:51:00 EST, [facility], 188, cm, 02/16/22 13:07:00 EDT, Heigh... Start [...] 11 Refills, Maintenance, 11/28/21 21:27:00 EDT, Solution, [facility], 188, cm, 11/22/21 16:37:00 EDT, Height, [...] mL, 5 Refills, Maintenance, 01/23/22 8:43:00 EDT, [facility], 188, cm, 12/26/21 14:06:00 EDT, Height, 122.63, kg, 11/22/21 16:37:00 EDT, Dry Weight Start Date: 01/23/22 Status: Ordered latanoprost 0.005% ophthalmic solution 0 Refills, Maintenance, 05/11/20 16:57:00 EST Start Date: 05/11/20 Status: Ordered lidocaine 5% topical ointment See Instructions, PRN Pain , Moderate, 1 APPLICATION TOPICALLY 3 TIMES A DAY, # 50 Gm, 5 Refills, Maintenance, 12/22/21 7:28:00 EDT, [facility], same Rx was sent 11/11 w/ [...] 0 Refills, Maintenance, 01/12/22 7:27:00 EDT, Tablet, [facility], 188, cm, 12/26/21 14:06:00 EDT, Height, 122.63, kg, 11/22/21 16:37:00 EDT, Dry Weight Start Date: 01/12/22 Status: Ordered losartan 100 mg oral tablet 1 tablet, By Mouth, Daily in AM, # 30 tablet, 5 Refills, 03/20/22 10:07:00 EST, [facility], 188, cm, 02/16/22 13:07:00 EDT, Height, 122.63, kg, 11/22/21 16:37:00 EDT, Dry Weight Start Date: 03/20/22 Status: Ordered LUBRIC TEARS CALE 0.4-0.3% Milliliters INSTILL 1 DROP FOUR TIMES DAILY EACH EYE Start Date: 05/11/20 Status: Ordered magnesium oxide 400 mg oral tablet 1 tablet = 400 mg, By Mouth, Daily, # 30 tablet, 11 Refills, Maintenance, 04/27/22 15:29:00 EST, Tablet, [facility], Partial fill upon patient request if the prescription is for a schedule II opioid drug., 188, cm, 04/27/22 13:44:00 EST, Hei... Start Date: 04/27/22 Status: Ordered meloxicam 15 mg oral tablet 1 tablet = 15 mg, By Mouth, Daily, Take with food PRN back pain Japanese, # 14 tablet, 0 Refills, Maintenance, 11/25/21 [...] tablet, 0 Refills, Maintenance, pain, 07/18/22 23:44:00 EDT,[facility], May partial fill., 07/18/22... Start Date: 07/18/22 Status: Ordered methadone 10 mg oral tablet See Instructions, By mouth. 2 tab in AM, 1.5 midday, 2 in evening;for pain. IDC10: G90.5 CRPS. 28 day supply. [facility]., # 154 tablet, 0 Refills, Maintenance, pain, 05/23/22 23:44:00 EST,[facility], August partial fill., 05/23/22... Start Date: 05/23/22 Status: Ordered methadone 10 mg oral tablet See Instructions, By mouth. 2 tab in AM, 1.5 midday, 2 in evening;for pain. IDC10: G90.5 CRPS. 28 day supply. [facility]., # 154 tablet, 0 Refills, Maintenance, pain, 06/20/22 23:45:00 EST,[facility], August partial fill., 06/20/22... Start Date: 06/20/22 Status: Ordered methadone 10 mg oral tablet See Instructions, By mouth. 2 tab in AM, 1.5 midday, 2 in evening;for pain. IDC10: G90.5 CRPS. 28 day supply. [facility]., # 154 tablet, 0 Refills, Maintenance, pain, 04/25/22 23:30:00 EST,[facility], August partial fill., 04/25/22... Start [...] 1 Refills, Soft Stop, 02/16/22 23:38:00 EDT, [facility], 188, cm, 02/16/22 13:07:00 EDT, Height,122.63, [...] EDT Start Date: 02/16/22 Status: Ordered Pen [place], 31 G x 8 mm BD Ultra [...] mL, 11 Refills, Maintenance, 04/27/22 23:40:00 EST, [facility], 188, cm, 04/27/22 13:44:00 EST, Height, 122.63, kg, 11/22/21 16:37:00 EDT,... Start Date: 04/27/22 Status: Ordered Singulair 10 mg oral tablet 10 mg, 1, tablet, By Mouth, Daily, # 90 tablet, Refills 3, Tot. Refills 3, Maintenance, 03/30/20 21:31:00 EST, Route to Pharmacy Electronically, [facility], 185, cm, 02/25/20 10:29:00 EST, Height, 126.81, kg, 02/25/20 10:29:00 EST, Dry Weight Start Date: 03/30/20 Status: Ordered tamsulosin 0.4 mg oral capsule 0.4 mg, 1, capsule, By Mouth, Daily, Per urology, # 30 capsule, Refills 11, Tot. Refills 11, Maintenance, 02/16/22 23:29:00 EDT, Route to Pharmacy Electronically, [facility], 188, cm, 02/16/22 13:07:00 EDT, Height, [...] Intramuscular, Every 14 days, IM or subcutaneous. [facility]., # 2 mL, 5 Refills, Maintenance, 02/05/22 22:55:00 EDT, [facility], 188, cm, 12/26/21 14:06:00 EDT, Height, 122.63, kg, 11/22/21 16:37:00 EDT, Dry Weight Start Date: 02/05/22 Status: Ordered tiZANidine 4 mg oral tablet 4 mg, 1, tablet, By Mouth, 3 times a day, PRN, # 90 tablet, Refills 11, Tot. Refills 11, Maintenance, as needed for muscle spasm, 08/12/21 11:09:00 EDT, Route to Pharmacy Electronically, [facility], 188, cm, 07/27/21 8:34:00 EDT, Height, 125... Start Date: 08/12/21 Status: Ordered traZODone 100 mg oral tablet TAKE ONE TO TWO TABLETS BY MOUTH AT BEDTIME NEEDED S. McAnulty Start Date: 05/11/20 Status: Ordered Tylenol Extra Strength 500 mg oral tablet 2 tablet = 1,000 mg, By Mouth, 3 times a day, # 30 tablet, 11 Refills, Maintenance, 03/24/21 21:00:00 EST, [facility], 188, cm, 03/22/21 14:17:00 EST, Height, 125.2, kg, 06/20/20 14:28:00 EST, Dry Weight Start Date: 03/24/21 Status: Ordered Vitamin D3 1000 intl units oral tablet 1 tablet, By Mouth, Daily, for 30 days, # 30 tablet, 11 Refills, Physician Stop 10/30/22 17:07:00 EDT, 11/04/21 17:07:00 EDT, [facility], 188, cm, 09/15/21 12:49:00 EDT, Height, [...] ? chr regional pain syndrome 4s/p Modified [place] procedure, repair of conjoined tendon of extensor [...] Vamshi Oshea Position: [facility] Primary Care Physician Member Role: PCP Address: Address: [address] [place] [address]- Name: Miki Rodriguez MD Position: [facility] Renal MD Member Role: Lifetime Consulting Physician Address: Address: [address] [facility] [place] [address]- Care Team Related Persons Name: BRANDON MTZ Address: home [address] [place] [address] Name: BRANDON BARKER Address: home [address] [place] [address] Name: ROSALINDA BERTRAND Address: home [address] [place] [address]
--- OUTSIDE RECORDS SUMMARY | 2023-10-11 08:19 | XMS_ITS | Continuity of Care Document ---
Author Organization [facility] Address [address] [place] [address]- Care Team Providers Care Corsetier Name Role Phone Vamshi Man MD Primary Care Physician [phone] Encounter [facility] Date(s): 03/25/20 - 04/24/20 [facility]/[address] [address]- Allergies, Adverse Reactions, Alerts Substance Reaction Severity [...] Elissa Bertrand 11Result Comment: [11/27/2017] REceived at [facility] at [place], [place]; ordered by Dr Michael Oliveira 12Location [...] 03/30/20 21:31:00 EST, Route to Pharmacy Electronically, [facility], smithcate rx. original sent 11/04/19. remaining [...] capsule, 3 Refills, Maintenance, 03/30/20 21:36:00 EST, [facility], 185, cm, 02/25/20 10:29:00 EST, Height, 126.81, kg, 02/25/20 10:29:00 EST, Dry Weight Start Date: 03/30/20 Status: Ordered clotrimazole 1% topical cream 1 application, Topically, 2 times a day, apply to penile rash, # 30 Gm, 2 Refills, Maintenance, 01/07/20 14:49:00 EDT, Cream, [facility], 1 application Topically 2 times a day,Instr:apply to penile rash, 185, cm, 01/07/20 13:55:00 EDT, [facility]... Start Date: 01/07/20 Status: Ordered Cozaar 100 mg oral tablet 1 tablet = 100 mg, By Mouth, Daily in AM, # 30 tablet, 5 Refills, Maintenance, 03/15/20 17:08:00 EST, Tablet, [facility], duplicate rx. original sent 09/16/19. remaining refills sent., 185, cm, 02/25/20 10:29:00 EST, Height, 126.81, kg, ... Start Date: 03/15/20 Status: Ordered diclofenac 1% topical gel = 2 Gm, Topically, 4 times a day, PRN for pain, (zambian) not to exceed: 16 gm/day/joint lower limb8 gm/day/joint of upper limb 32 gm/day, # 100 Gm, 1 Refills, Maintenance, 10/27/19 10:15:00 EDT, Gel, [facility], 185, cm, 06/24/19 13:00:... Start Date: [...] 11 Refills, Maintenance, 02/15/20 21:05:00 EST, Solution, [facility], 185, cm, 01/07/20 13:55:00 EDT, Height, [...] tablet, 11 Refills, Maintenance, 01/07/20 14:40:00 EDT, [facility], 185, cm, 01/07/20 13:55:00 EDT, Height, 127.72, kg, 05/06/19 13:41:00 EST, Dry Weight Start Date: 01/07/20 Status: Ordered Lantus Solostar Pen 100 units/mL subcutaneous solution = 90 units, Subcutaneous Infusion, Daily at bedtime, # 15 mL, 2 Refills, Maintenance, 03/08/20 15:23:00 EST, [facility], 185, cm, 02/25/20 10:29:00 EST, Height, 126.81, kg, 02/25/20 10:29:00 EST, Dry Weight Start Date: 03/08/20 Status: Ordered latanoprost 0.005% ophthalmic solution 1 drops, Eyes, Both, Daily at bedtime, cover gap- Certified Alcohol And Drug Counselor Dr Broussard, # 2.5 mL, 1 Refills, Maintenance, 02/25/14 10:47:09, Ophth Solution, 1 drops Eyes, Both Daily at bedtime,Instr:cover gap-Certified Alcohol And Drug Counselor Dr Broussard Start Date: 02/25/14 Status: Ordered lidocaine 4% topical cream 1 application, Topically, 3 times a day, may interchange 3-5% cream or ointment or 2% gel per insurance coverage., # 60 Gm, 5 Refills, Maintenance, 10/28/19 20:11:00 EDT, [facility], 1 application Topically 3 times a day,Instr:may interchang... Start Date: 10/28/19 Status: Ordered Lipitor 40 mg oral tablet 1 tablet = 40 mg, By Mouth, Daily, # 90 tablet, 3 Refills, Maintenance, 03/30/20 21:30:00 EST, [facility], duplicate rx. original sent 11/04/19. remaining refill sent., 185, cm, 02/25/20 10:29:00 EST, Height, 126.81, kg, 02/25/20 10:29:00 EST... Start Date: 03/30/20 Status: Ordered metFORMIN 500 mg oral tablet 1 tablet = 500 mg, By Mouth, 2 times a day, with meals. Replaces metformin ER, # 60 tablet, 11 Refills, Maintenance, 06/24/19 15:02:00 EDT, Tablet, [facility], 185, cm, 06/24/19 13:00:00 EDT, [...] pain. IDC10: G90.5 CRPS. 28 day supply. [facility]., # 154 tablet, 0 Refills, Maintenance, pain, 03/30/20 23:51:00 EST,[facility], May partial fill., 03/30/20... Start Date: 03/30/20 Status: Ordered methadone 10 mg oral tablet See Instructions, By mouth. 2 tab in AM, 1.5 midday, 2 in evening;for pain. IDC10: G90.5 CRPS. 28 day supply. [facility]., # 154 tablet, 0 Refills, Maintenance, pain, 03/02/20 21:37:00 EST,[facility], May partial fill., 03/02/20... Start Date: [...] Start Date: 05/15/18 Status: Ordered nystatin-triamcinolone topical 591094 u/gm-0.1% ointment 1 applicator, Topically, 3 times a day, to foreskin area FOR 3 DAYS then switch to other antifungal, # 15 Gm, 1 Refills, Maintenance, 01/07/20 14:48:00 EDT, [facility], 1 applicator Topically 3 times a [...] EDT Start Date: 08/20/18 Status: Ordered Pen [place], 31 G x 8 mm BD Ultra [...] 03/30/20 21:31:00 EST, Route to Pharmacy Electronically, [facility], 185, cm, 02/25/20 10:29:00 EST, Height, 126.81, kg, 02/25/20 10:29:00 EST, Dry Weight Start Date: 03/30/20 Status: Ordered Testosterone Cypionate = 0.75 mg, Intramuscular, Every 14 days, Adm. today to Lot [id number] exp: 02/2020, 0 Refills, Maintenance, 11/14/18 14:06:08 EDT Start Date: 11/14/18 Status: Ordered testosterone enanthate 200 mg/mL intramuscular solution 0.75 mL, Intramuscular, Every 14 days, [facility], # 5 mL, 5 Refills, Maintenance, 01/06/20 11:17:00 EDT, [facility], 185, cm, 06/24/19 13:00:00 EDT, Height, 127.72, kg, 05/06/19 13:41:00 EST, Dry Weight Start Date: 01/06/20 Status: Ordered testosterone enanthate 200 mg/mL intramuscular solution 0.75 mL, Intramuscular, Every 14 days, [facility], # 5 mL, 5 Refills, Maintenance, 01/11/20 21:30:00 EDT, [facility], 185, cm, 01/07/20 13:55:00 EDT, Height, 127.72, kg, 05/06/19 13:41:00 EST, Dry Weight Start Date: 01/11/20 Status: Ordered tiZANidine 4 mg oral tablet 4 mg, 1, tablet, By Mouth, 3 times a day, PRN, # 90 tablet, Refills 11, Tot. Refills 11, Maintenance, as needed for muscle spasm, 02/04/19 21:34:51 EDT, Route to Pharmacy Electronically, [id number], [facility] Start Date: 02/04/19 Status: Ordered Problem [...] ? chr regional pain syndrome 4s/p Modified [place] procedure, repair of conjoined tendon of extensor [...]
--- OUTSIDE RECORDS SUMMARY | 2023-10-11 08:19 | XMS_ITS | Continuity of Care Document ---
Author Organization [facility] Address Unknown Care Team Providers Care Supervisor Finishing Name Role Phone Vamshi Man MD Primary Care Physician [phone] [facility]20 - 12/01/20 [facility] Allergies, Adverse Reactions, Alerts Substance Reaction Severity [...] REceived at [facility] at [place], [place]; ordered by Dr Michael Oliveira 13Location [...] tablet, 5 Refills, Maintenance, 11/18/20 15:30:00 EDT, [facility], 188, cm, 09/22/20 8:33:00 EDT, Height, 125.2, kg, 06/20/20 14:28:00 EST, Dry Weight Start Date: 11/18/20 Status: Ordered AutoCPAP 9-18 with heated humidification AutoCPAP 9-18 with heated humidification, See Instructions, # 1 each, Refills 0, Tot. Refills 0, Maintenance, use overnight and naps from [facility], 11/04/18 12:28:22 EDT, Compound Start Date: 11/04/18 [...] capsule, 3 Refills, Maintenance, 03/30/20 21:36:00 EST, [facility], 185, cm, 02/25/20 10:29:00 EST, Height, 126.81, kg, 02/25/20 10:29:00 EST, Dry Weight Start Date: 03/30/20 Status: Ordered clotrimazole 1% topical cream 1 application, Topically, 2 times a day, apply to penile rash, # 30 Gm, 2 Refills, Maintenance, 01/07/20 14:49:00 EDT, Cream, [facility], 1 application Topically 2 times a day,Instr:apply to penile rash, 185, cm, 01/07/20 13:55:00 EDT, [place]... Start Date: 01/07/20 Status: Ordered Cozaar 100 mg oral tablet 1 tablet = 100 mg, By Mouth, Daily in AM, # 30 tablet, 11 Refills, Maintenance, 09/22/20 9:41:00 EDT, Tablet, [facility], duplicate rx. original sent 09/16/19. remaining [...] 06/25/20 15:39:00 EST, Route to Pharmacy Electronically, [facility], Partial f... Start Date: 06/25/20 Status: Ordered diclofenac 1% topical gel = 2 Gm, Topically, 4 times a day, PRN for pain, (mexican) not to exceed: 16 gm/day/joint lower limb8 gm/day/joint of upper limb 32 gm/day may interchange for cream, # 100 Gm, 5 Refills, Maintenance,07/08/20 15:35:00 EDT, Gel, [facility] Start Date: 07/08/20 Status: Ordered docusate [...] 11 Refills, Maintenance, 02/15/20 21:05:00 EST, Solution, [facility], 185, cm, 01/07/20 13:55:00 EDT, Height, [...] mL, 3 Refills, Maintenance, 07/08/20 15:42:00 EDT, [facility], Duplicate rx-Original rx sent 06/22/20. Resent., 188, cm, 07/08/20 13:42:00 EDT, Height, 125.2, kg, 06/20/20 14:28:00 EST,... Start Date: 07/08/20 Status: Ordered latanoprost 0.005% ophthalmic solution 0 Refills, Maintenance, 05/11/20 16:57:00 EST Start Date: 05/11/20 Status: Ordered lidocaine 5% topical ointment See Instructions, 1 APPLICATION TOPICALLY 3 TIMES A DAY, # 70.88 Gm, 4 Refills, Acute, [facility], 14, 1 APPLICATION TOPICALLY 3 TIMES A DAY, 188, cm, 09/22/20 8:33:00 EDT, Height, 125.2, kg, 06/20/20 14:28:00 EST, Dry Weight Start Date: 11/08/20 Status: Ordered Lipitor 40 mg oral tablet 1 tablet = 40 mg, By Mouth, Daily, # 90 tablet, 3 Refills, Maintenance, 03/30/20 21:30:00 EST, [facility], duplicate rx. original sent 11/04/19. remaining refill sent., 185, cm, 02/25/20 10:29:00 EST, Height, 126.81, kg, 02/25/20 10:29:00 EST... Start Date: 03/30/20 Status: Ordered LORazepam 1 mg oral tablet See Instructions, PRN for anxiety, 2 tablets By Mouth 1 hours prior to MRI, # 2 tablet, 0 Refills, Acute 09/22/21 9:45:00 EDT, 09/22/20 9:43:00 EDT, Tablet, [facility], Partial fill upon patient request if [...] Start Date: 05/15/18 Status: Ordered nystatin-triamcinolone topical 218644 u/gm-0.1% ointment 1 applicator, Topically, 3 times [...] EDT Start Date: 08/20/18 Status: Ordered Pen [place], 31 G x 8 mm BD Ultra [...] 03/30/20 21:31:00 EST, Route to Pharmacy Electronically, [facility], 185, cm, 02/25/20 10:29:00 EST, Height, [...] solution 0.75 mL, Intramuscular, Every 14 days, [facility], # 5 mL, 5 Refills, Maintenance, 08/29/20 21:33:00 EDT, [facility], 188, cm, 07/08/20 13:42:00 EDT, Height, 125.2, kg, 06/20/20 14:28:00 EST, Dry Weight Start Date: 08/29/20 Status: Ordered tiZANidine 4 mg oral tablet 4 mg, 1, tablet, By Mouth, 3 times a day, PRN, # 90 tablet, Refills 11, Tot. Refills 11, Maintenance, as needed for muscle spasm, 07/08/20 15:40:00 EDT, Route to Pharmacy Electronically, [facility], 188, cm, 07/08/20 13:42:00 EDT, Height, [...]
--- OUTSIDE RECORDS SUMMARY | 2023-10-11 08:19 | XMS_ITS | Continuity of Care Document ---
Author Organization [facility] Address [address] [place] [id number]- Care Team Providers Care Sink Cutter Name Role Phone Vamshi Man MD Primary Care Physician [facility] Date[facility]): 07/09/23 - 08/08/23 [facility]/[address] [address]- Allergies, Adverse Reactions, Alerts Substance Reaction Severity Status Other Food Allergy fresh peaches - itch y mouth, throat and lips swell Active penicillin 1 rash Resolved penicillins Active Latex RASH Active 1rash per mother as child. Did take a penicillin for treatment of H pylori per pt w/o problem. Immunizations Given and Recorded Vaccine Date Status Refusal Reason SARS-CoV-2(COVID-19)mRNA-LNP vac([id number]) 01/30/23 Given influenza virus vaccine, inactivated 01/05/23 [...] influenza virus vaccine, inactivated 03/19/06 Give n [id number] 12y+ bivalent booster vax 02/16/22 Given pneumococcal 20-valent conjugate vaccine 02/16/22 Given Influenza Virus Vaccine (oldterm) 9 01/27/22 Recor ded Influenza Virus Vaccine (oldterm) 01/26/21 Recorde d SARS-CoV-2 mRNA ([id number]) vax 11/11/21 Given SARS-CoV-2 (COVID-19) mRNA BNT-162b2 [...] Elissa Bertrand 13Result Comment: [11/27/2017] REceived at [facility] at [place], [place]; ordered by Dr Michael Oliveira 14Location [...] 11 Refills, Maintenance, 02/08/23 10:21:00 EDT, Powder, [facility], replaces Flovent due to insurance coverage, 188, cm, 01/30/23 13:26:00 EDT, Height, 126, kg, 01/30/23 13:26:00 EDT,... Start Date: 02/08/23 Status: Ordered Aspirin Low Dose 81 mg oral delayed release tablet 1 tablet, By Mouth, Daily, # 90 tablet, 4 Refills, Maintenance, 03/01/23 17:49:00 EST, [facility], 188, cm, 01/30/23 13:26:00 EDT, Height, 126, kg, 01/30/23 13:26:00 EDT, Dry Weight Start Date: 03/01/23 Status: Ordered atorvastatin 40 mg oral tablet 1 tablet, By Mouth, Daily, # 90 tablet, 1 Refills, Maintenance, 07/25/23 20:12:00 EDT, [facility], 188, cm, 07/05/23 11:09:00 EDT, [...] 2 Refills, Maintenance, 04/27/22 23:43:00 EST, Cream, [facility], 1 application Topically 2 times a day,Instr:apply to penile rash, 188, cm, 04/27/22 13:44:00 EST, Heigh... Start Date: 04/27/22 Status: Ordered diazepam 10 mg oral tablet See Instructions, PRN, 1 tablet By Mouth 1 hr before MRI, # 1 tablet, Refills 2, Tot. Refills 2, Maintenance, as needed for anxiety, 01/30/23 15:02:00 EDT, Instructions Replace Required Details, Route to Pharmacy Electronically, [facility],... Start Date: 01/30/23 Status: Ordered diclofenac 1% topical gel = 2 Gm, Topically, 4 times a day, PRN for pain, (kiswahili) not to exceed: 16 gm/day/joint lower limb8 gm/day/joint of upper limb 32 gm/day may interchange for cream, # 100 Gm, 11 Refills, Maintenance, 04/15/22 13:02:00 EST, Gel, [facility]... Start Date: 04/15/22 Status: Ordered docusate [...] 16 Gm, 11 Refills, Maintenance, 07/09/23 11:37:00EDT, [place], [facility], Partial fill upon patient request if the prescription is for a schedule II opioid drug., 2 sprays Nares, Both 2 times... Start Date: 07/09/23 Status: Ordered Freestyle Tatyana [place] Freestyle Tatyana [place], See Instructions, # 1 each, Refills 0, [...] 11 Refills, Maintenance, 11/28/21 21:27:00 EDT, Solution, [facility], 188, cm, 11/22/21 16:37:00 EDT, [...] Gm, 5 Refills, Maintenance, 12/22/21 7:28:00 EDT, [facility], same Rx was sent 11/11 w/ [...] Refills, Maintenance, 01/12/22 7:27:00 EDT, Tablet, [facility], 188, cm, 12/26/21 14:06:00 EDT, Height, 122.63, kg, 11/22/21 16:37:00 EDT, Dry Weight Start Date: 01/12/22 Status: Ordered LUBRIC TEARS CALE 0.4-0.3% [place] INSTILL 1 DROP FOUR TIMES DAILY EACH EYE Start Date: 05/11/20 Status: Ordered magnesium oxide 400 mg oral tablet 1 tablet = 400 mg, By Mouth, Daily, # 90 tablet, 3 Refills, Maintenance, 05/07/23 16:31:00 EST, Tablet, [facility], 188, cm, 04/26/23 13:06:00 EST, Height, 126.09, kg, 04/26/23 13:06:00 EST, Dry Weight Start Date: 05/07/23 Status: Ordered meloxicam 15 mg oral tablet 1 tablet = 15 mg, By Mouth, Daily, Take with food PRN back pain Italian, # 14 tablet, 0 Refills, Maintenance, 11/25/21 [...] Refills, Maintenance, 05/15/23 8:10:00 EST, ER Tablet, [facility], Partial [...] pain, 10/09/23 21:08:00 EDT,[facility], May partial fill., 0... Start Date: 10/09/23 Status: Ordered methadone 10 mg oral tablet See Instructions, By mouth. 2 tab in AM, 1.5 midday, 2 in evening;for pain. IDC10: G90.5 CRPS. 28 day supply. [facility]., # 154 tablet, 0 Refills, Maintenance, pain, 09/11/23 21:08:00 EDT,[facility], May partial fill., 0... Start Date: 09/11/23 Status: Ordered methadone 10 mg oral tablet See Instructions, By mouth. 2 tab in AM, 1.5 midday, 2 in evening;for pain. IDC10: G90.5 CRPS. 28 day supply. [facility]., # 154 tablet, 0 Refills, Maintenance, pain, 08/14/23 21:08:00 EDT,[facility], May partial fill., 0... Start [...] each, 11 Refills, Maintenance, 07/26/23 14:10:00 EDT, [facility], Partial fillupon patient request if the prescription is for a s... Start Date: 07/26/23 Status: Ordered Mounjaro 7.5 mg/0.5 mL subcutaneous solution = 7.5 mg, Subcutaneous Injection, Every week, rotate injection sites, # 4 each, 5 Refills, Maintenance, 07/07/23 17:04:00 EDT, Solution, [facility], should still have a couple months of refills from last Rx sent in April but sending again... Start Date: 07/07/23 Status: Ordered Narcan 4 mg/0.1 mL nasal spray = 4 mg, Nares, Both, Once, may repeat every 2 to 3 minutes until patient responds, # 2 each, 1 Refills, Soft Stop, 02/16/22 23:38:00 EDT, [facility], 188, cm, 02/16/22 13:07:00 EDT, Height,122.63, kg, 11/22/21 16:37:00 EDT, Dry Weight Start Date: 02/16/22 Status: Ordered ondansetron 4 mg oral tablet TAKE 1 TABLET BY MOUTH EVERY 8 HOURS NEEDED FOR NAUSEA Idalia Sandoval Start Date: 08/20/18 Status: Ordered pantoprazole 40 mg oral delayed release tablet 0 Refills, Maintenance, 02/16/22 23:33:00 EDT Start Date: 02/16/22 Status: Ordered Pen [place], 31 G x 8 mm BD Ultra [...] 02/18/23 19:20:00 EST, Route to Pharmacy Electronically, [facility], 188, cm, 01/30/23 13:26:00 EDT, Height, [...] tablet, 5 Refills, Maintenance, 07/09/23 11:09:00 EDT, [facility], 30, 1 tablet By Mouth Daily, 188, cm, 07/05/23 11:09:00 EDT, Height, 126.09, kg, 04/26/23 13:06:00 EST, Dry Weight Start Date: 07/09/23 Status: Ordered tamsulosin 0.4 mg oral capsule 0.8 mg, 2, capsule, By Mouth, Daily, dose increase, # 180 capsule, Refills 11, Tot. Refills 11, Maintenance, 07/26/23 14:15:00 EDT, Route to Pharmacy Electronically, [facility], 188, cm, 07/26/23 13:30:00 EDT, Height, 121.81, kg, 07/26/23 13... Start Date: 07/26/23 Status: Ordered Test Strips See Instructions, # 100 each, Refills 5, Tot. Refills 5, Maintenance, Precision Ganga strips (for Freestyle Tatyana glucometer). Type 2 diabetes mellitus on insulin (E11, Z79.4). Test 2-4x/day if symptoms, or sensor concerns., 02/08/23 10:36:00 EDT, [place]... Start Date: 02/08/23 Status: Ordered Test Strips [...] Intramuscular, Every 14 days, IM or subcutaneous. [facility]., # 2 mL, 5 Refills, Maintenance, 05/04/23 13:34:00 EST, [facility], 188, cm, 04/26/23 13:06:00 EST, Height, 126.09, kg, 04/26/23 13:06:00 EST, Dry Weight Start Date: 05/04/23 Status: Ordered tiZANidine 4 mg oral tablet 4 mg, 1, tablet, By Mouth, 3 times a day, PRN, # 90 tablet, Refills 11, Tot. Refills 11, Maintenance, as needed for muscle spasm, 08/18/22 8:03:00 EDT, Route to Pharmacy Electronically, [facility], 188, cm, 07/18/22 14:01:00 EDT, Height, 122... Start Date: 08/18/22 Status: Ordered Toujeo Max SoloStar 300 units/mL subcutaneous solution = 70 units, Subcutaneous Injection, Daily, decrease frin 90u, # 12 mL, 11 Refills, Maintenance, 07/26/23 14:19:00 EDT, Solution, [facility], replaces Lantus due to insurance coverage, 188, cm, 07/26/23 13:30:00 EDT, Height, 121.81, kg, 07/25... Start Date: 07/26/23 Status: Ordered Tylenol Extra Strength 500 mg oral tablet 2 tablet = 1,000 mg, By Mouth, 3 times a day, # 30 tablet, 11 Refills, Maintenance, 03/24/21 21:00:00 EST, [facility], 188, cm, 03/22/21 14:17:00 EST, Height, 125.2, kg, 06/20/20 14:28:00 EST, Dry Weight Start Date: 03/24/21 Status: Ordered Vitamin D3 1000 intl units oral tablet 1 tablet, By Mouth, Daily, # 90 tablet, 4 Refills, Maintenance, 04/01/23 22:28:00 EST, [facility], 188, cm, 01/30/23 13:26:00 EDT, Height, [...] ? chr regional pain syndrome 4s/p Modified [place] procedure, repair of conjoined tendon of extensor [...] Team Personnel Name: Shoaib An RN Position: [facility] RN Supv Member Role: Primary Care Nurse Name: Donovan DE LOS SANTOS, Vamshi Oshea Position: [facility] Physician - Primary Care Member Role: PCP Address: Address: [address] Name: Luz Potter Position: [facility] Outreach Member Role: Lifetime Consulting Physician Name: Miki Rodriguez MD Position: [facility] Renal MD Member Role: Lifetime Consulting Physician Address: Address: [address] [facility] [address] [facility], [address] Care Team Related Persons Name: BRANDON MTZ Address: home [address] [address] Name: BRANDON BARKER Address: home [address] [place] [address] Name: ROSALINDA BERTRAND
--- OUTSIDE RECORDS SUMMARY | 2023-10-11 08:20 | XMS_ITS | Continuity of Care Document ---
Author Organization [facility] Address Unknown Care Team Providers Care Legal File Clerk Name Role Phone Vamshi Man MD Primary Care Physician [facility] 03[facility]25[facility]21 - 04/24/21 [facility] Allergies, Adverse Reactions, Alerts [...] at [facility] at [place], [place]; ordered by Dr Michael Oliveira 13Location [...] capsule, 3 Refills, Maintenance, 03/30/20 21:36:00 EST, [facility], 185, cm, 02/25/20 10:29:00 EST, Height, 126.81, kg, 02/25/20 10:29:00 EST, Dry Weight Start Date: 03/30/20 Status: Ordered clotrimazole 1% topical cream 1 application, Topically, 2 times a day, apply to penile rash, # 30 Gm, 2 Refills, Maintenance, 01/07/20 14:49:00 EDT, Cream, [facility], 1 application Topically 2 times a day,Instr:apply to penile rash, 185, cm, 01/07/20 13:55:00 EDT, Heigh... Start Date: 01/07/20 Status: Ordered Cozaar 100 mg oral tablet 1 tablet = 100 mg, By Mouth, Daily in AM, # 30 tablet, 11 Refills, Maintenance, 09/22/20 9:41:00 EDT, Tablet, [facility], duplicate rx. original sent 09/16/19. remaining [...] 06/25/20 15:39:00 EST, Route to Pharmacy Electronically, [facility], Partial f... Start Date: 06/25/20 Status: Ordered diclofenac 1% topical gel = 2 Gm, Topically, 4 times a day, PRN for pain, (nauruan) not to exceed: 16 gm/day/joint lower limb8 gm/day/joint of upper limb 32 gm/day may interchange for cream, # 100 Gm, 5 Refills, Maintenance,07/08/20 15:35:00 EDT, Gel, [facility] Start Date: 07/08/20 Status: Ordered docusate [...] 11 Refills, Maintenance, 03/03/21 21:23:00 EST, Solution, [facility], 188, cm, 02/24/21 16:26:00 EST, Height, [...] mL, 11 Refills, Maintenance, 01/14/21 18:16:00 EDT, [facility], 188, cm, 12/22/20 9:45:00 EDT, Height, 125.2, kg, 06/20/20 14:28:00EST, Dry Weight Start Date: 01/14/21 Status: Ordered latanoprost 0.005% ophthalmic solution 0 Refills, Maintenance, 05/11/20 16:57:00 EST Start Date: 05/11/20 Status: Ordered lidocaine 5% topical ointment See Instructions, 1 APPLICATION TOPICALLY 3 TIMES A DAY, # 70.88 Gm, 4 Refills, Acute, [facility], 14, 1 APPLICATION TOPICALLY 3 TIMES A DAY, 188, cm, 09/22/20 8:33:00 EDT, Height, 125.2, kg, 06/20/20 14:28:00 EST, Dry Weight Start Date: 11/08/20 Status: Ordered LORazepam 1 mg oral tablet See Instructions, PRN for anxiety, 2 tablets By Mouth 1 hours prior to MRI, # 2 tablet, 0 Refills, Acute 09/22/21 9:45:00 EDT, 09/22/20 9:43:00 EDT, Tablet, [facility], Partial fill upon patient request if the prescription is for a schedule... Start Date: 09/22/20 Stop Date: 09/22/21 Status: Ordered LORazepam 1 mg oral tablet See Instructions, PRN for anxiety, 2 tablets By Mouth 1 hours prior to MRI, # 2 tablet, 0 Refills, Maintenance, 04/15/21 10:58:00 EST, Tablet, [facility], 188, cm, 03/22/21 14:17:00 EST, Height, [...] 3 Refills, Maintenance, 07/08/20 15:40:00 EDT, Tablet, [facility], Duplicate rx-Original rx sent06/22/20. Resent., 188, [...] Start Date: 05/15/18 Status: Ordered nystatin-triamcinolone topical 945373 u/gm-0.1% ointment 1 applicator, Topically, 3 times a day, to foreskin area FOR 3 DAYS then switch to other antifungal, # 15 Gm, 1 Refills, Maintenance, 07/08/20 15:34:00 EDT, [facility], 1 applicator Topically 3 times a [...] EDT Start Date: 08/20/18 Status: Ordered Pen [place], 31 G x 8 mm BD Ultra [...] 03/30/20 21:31:00 EST, Route to Pharmacy Electronically, [facility], 185, cm, 02/25/20 10:29:00 EST, Height, [...] solution 0.75 mL, Intramuscular, Every 14 days, [facility], # 5 mL, 5 Refills, Maintenance, 03/25/21 1:06:00 EST, [facility], 188, cm, 03/22/21 14:17:00 EST, Height, 125.2, kg, 06/20/20 14:28:00 EST, Dry Weight Start Date: 03/25/21 Status: Ordered tiZANidine 4 mg oral tablet 4 mg, 1, tablet, By Mouth, 3 times a day, PRN, # 90 tablet, Refills 11, Tot. Refills 11, Maintenance, as needed for muscle spasm, 07/08/20 15:40:00 EDT, Route to Pharmacy Electronically, [facility], 188, cm, 07/08/20 13:42:00 EDT, Height, 12... Start Date: 07/08/20 Status: Ordered traZODone 100 mg oral tablet TAKE ONE TO TWO TABLETS BY MOUTH AT BEDTIME NEEDED S. McAnbrett Start Date: 05/11/20 Status: Ordered Tylenol Extra Strength 500 mg oral tablet 2 tablet = 1,000 mg, By Mouth, 3 times a day, # 30 tablet, 11 Refills, Maintenance, 03/24/21 21:00:00 EST, [facility], 188, cm, 03/22/21 14:17:00 EST, Height, [...] chr regional pain syndrome 4s/p Modified [place] procedure, repair of conjoined tendon of extensor [...]
--- OUTSIDE RECORDS SUMMARY | 2023-10-11 08:20 | XMS_ITS | Continuity of Care Document ---
Author Organization [facility] Address [address] [place] [address]- Care Team Providers Care Rotary Rock Drilling Machine Operator Name Role Phone Vamshi Man MD Primary Care Physician [phone] [facility]): 07/14/20 - 08/13/20 [facility]/[address] [address]- Allergies, Adverse Reactions, Alerts Substance Reaction Severity [...] 12Result Comment: [11/27/2017] REceived at [facility] at [place], [place]; ordered by Dr Michael Oliveira 13Location [...] 03/30/20 21:31:00 EST, Route to Pharmacy Electronically, [facility], dupilcate rx. original sent 11/04/19. remaining [...] capsule, 3 Refills, Maintenance, 03/30/20 21:36:00 EST, [facility], 185, cm, 02/25/20 10:29:00 EST, Height, 126.81, kg, 02/25/20 10:29:00 EST, Dry Weight Start Date: 03/30/20 Status: Ordered clotrimazole 1% topical cream 1 application, Topically, 2 times a day, apply to penile rash, # 30 Gm, 2 Refills, Maintenance, 01/07/20 14:49:00 EDT, Cream, [facility], 1 application Topically 2 times a day,Instr:apply to penile rash, 185, cm, 01/07/20 13:55:00 EDT, [facility]... Start Date: 01/07/20 Status: Ordered Cozaar 100 mg oral tablet 1 tablet = 100 mg, By Mouth, Daily in AM, # 30 tablet, 5 Refills, Maintenance, 03/15/20 17:08:00 EST, Tablet, [facility], duplicate rx. original sent 09/16/19. remaining [...] 06/25/20 15:39:00 EST, Route to Pharmacy Electronically, [facility], Partial f... Start Date: 06/25/20 Status: Ordered diclofenac 1% topical gel = 2 Gm, Topically, 4 times a day, PRN for pain, (citizen of [place]) not to exceed: 16 gm/day/joint lower limb8 gm/day/joint of upper limb 32 gm/day may interchange for cream, # 100 Gm, 5 Refills, Maintenance,07/08/20 15:35:00 EDT, Gel, [facility] Start Date: 07/08/20 Status: Ordered docusate [...] 11 Refills, Maintenance, 02/15/20 21:05:00 EST, Solution, [facility], 185, cm, 01/07/20 13:55:00 EDT, Height, [...] mL, 3 Refills, Maintenance, 07/08/20 15:42:00 EDT, [facility], Duplicate rx-Original rx sent 06/22/20. Resent., 188, cm, 07/08/20 13:42:00 EDT, Height, 125.2, kg, 06/20/20 14:28:00 EST,... Start Date: 07/08/20 Status: Ordered latanoprost 0.005% ophthalmic solution 0 Refills, Maintenance, 05/11/20 16:57:00 EST Start Date: 05/11/20 Status: Ordered Lipitor 40 mg oral tablet 1 tablet = 40 mg, By Mouth, Daily, # 90 tablet, 3 Refills, Maintenance, 03/30/20 21:30:00 EST, [facility], duplicate rx. original sent 11/04/19. remaining [...] 3 Refills, Maintenance, 07/08/20 15:40:00 EDT, Tablet, [facility], Duplicate rx-Original rx sent06/22/20. Resent., 188, cm, 07/08/20 13:42:00 EDT, He... Start Date: 07/08/20 Status: Ordered methadone 10 mg oral tablet See Instructions, By mouth. 2 tab in AM, 1.5 midday, 2 in evening;for pain. IDC10: G90.5 CRPS. 28 day supply. [facility]., # 154 tablet, 0 Refills, Maintenance, pain, 07/20/20 15:43:00 EDT,[facility], May partial fill., 188, cm,... Start Date: 07/20/20 Status: Ordered methadone 10 mg oral tablet See Instructions, By mouth. 2 tab in AM, 1.5 midday, 2 in evening;for pain. IDC10: G90.5 CRPS. 28 day supply. [facility]., # 154 tablet, 0 Refills, Maintenance, pain, 08/17/20 15:47:00 EDT,[facility], May partial fill., 08/17/20... Start Date: [...] Start Date: 05/15/18 Status: Ordered nystatin-triamcinolone topical 501686 u/gm-0.1% ointment 1 applicator, Topically, 3 times a day, to foreskin area FOR 3 DAYS then switch to other antifungal, # 15 Gm, 1 Refills, Maintenance, 07/08/20 15:34:00 EDT, [facility], 1 applicator Topically 3 times a [...] EDT Start Date: 08/20/18 Status: Ordered Pen [place], 31 G x 8 mm BD Ultra [...] 03/30/20 21:31:00 EST, Route to Pharmacy Electronically, [facility], 185, cm, 02/25/20 10:29:00 EST, Height, [...] solution 0.75 mL, Intramuscular, Every 14 days, [facility], # 5 mL, 5 Refills, Maintenance, 01/11/20 21:30:00 EDT, [facility], 185, cm, 01/07/20 13:55:00 EDT, Height, 127.72, kg, 05/06/19 13:41:00 EST, Dry Weight Start Date: 01/11/20 Status: Ordered tiZANidine 4 mg oral tablet 4 mg, 1, tablet, By Mouth, 3 times a day, PRN, # 90 tablet, Refills 11, Tot. Refills 11, Maintenance, as needed for muscle spasm, 07/08/20 15:40:00 EDT, Route to Pharmacy Electronically, [facility], 188, cm, 07/08/20 13:42:00 EDT, Height, [...] ? chr regional pain syndrome 4s/p Modified [place] procedure, repair of conjoined tendon of [...]
--- OUTSIDE RECORDS SUMMARY | 2023-10-11 08:20 | XMS_ITS | Continuity of Care Document ---
Author Organization [facility] Address [address] [place] [id number]- Care Team Providers Care Nutrition Technician Name Role Phone Vamshi Man MD Primary Care Physician [phone] Encounter [facility] Date(s): 08/28/23 - 09/27/23 [facility]/[address] [address]- Allergies, Adverse Reactions, Alerts Substance Reaction Severity Status penicillin 1 rash Resolved Latex RASH Active Other Food Allergy fresh peaches - itch y mouth, throat and lips swell Active penicillins Active 1rash per mother as child. Did take a penicillin for treatment of H pylori per pt w/o problem. Immunizations Given and Recorded Vaccine Date Status Refusal Reason SARS-CoV-2(COVID-19)mRNA-LNP vac([id number]) 01/30/23 Given influenza virus vaccine, inactivated 01/05/23 [...] influenza virus vaccine, inactivated 03/19/06 Give n [id number] 12y+ bivalent booster vax 02/16/22 Given pneumococcal 20-valent conjugate vaccine 02/16/22 Given Influenza Virus Vaccine (oldterm) 9 01/27/22 Recor ded Influenza Virus Vaccine (oldterm) 01/26/21 Recorde d SARS-CoV-2 mRNA ([id number]) vax 11/11/21 Given SARS-CoV-2 (COVID-19) mRNA BNT-162b2 [...] 13Result Comment: [11/27/2017] REceived at [facility] at [place], [place]; ordered by Dr Michael Oliveira 14Location [...] 11 Refills, Maintenance, 02/08/23 10:21:00 EDT, Powder, [facility], replaces Flovent due to insurance coverage, 188, cm, 01/30/23 13:26:00 EDT, Height, 126, kg, 01/30/23 13:26:00 EDT,... Start Date: 02/08/23 Status: Ordered Aspirin Low Dose 81 mg oral delayed release tablet 1 tablet, By Mouth, Daily, # 90 tablet, 4 Refills, Maintenance, 03/01/23 17:49:00 EST, [facility], 188, cm, 01/30/23 13:26:00 EDT, Height, 126, kg, 01/30/23 13:26:00 EDT, Dry Weight Start Date: 03/01/23 Status: Ordered atorvastatin 40 mg oral tablet 1 tablet, By Mouth, Daily, # 90 tablet, 1 Refills, Maintenance, 07/25/23 20:12:00 EDT, [facility], 188, cm, 07/05/23 11:09:00 EDT, [...] 2 Refills, Maintenance, 04/27/22 23:43:00 EST, Cream, [facility], 1 application Topically 2 times a day,Instr:apply to penile rash, 188, cm, 04/27/22 13:44:00 EST, Heigh... Start Date: 04/27/22 Status: Ordered diazepam 10 mg oral tablet See Instructions, PRN, 1 tablet By Mouth 1 hr before MRI, # 1 tablet, Refills 2, Tot. Refills 2, Maintenance, as needed for anxiety, 01/30/23 15:02:00 EDT, Instructions Replace Required Details, Route to Pharmacy Electronically, [facility],... Start Date: 01/30/23 Status: Ordered diclofenac 1% topical gel = 2 Gm, Topically, 4 times a day, PRN for pain, (english) not to exceed: 16 gm/day/joint lower limb8 gm/day/joint of upper limb 32 gm/day may interchange for cream, # 100 Gm, 11 Refills, Maintenance, 04/15/22 13:02:00 EST, Gel, [facility]... Start Date: 04/15/22 Status: Ordered docusate [...] 16 Gm, 11 Refills, Maintenance, 07/09/23 11:37:00EDT, [place], [facility], Partial fill upon patient request if the prescription is for a schedule II opioid drug., 2 sprays Nares, Both 2 times... Start Date: 07/09/23 Status: Ordered Freestyle Tatyana Fillmore Freestyle Tatyana Fillmore, See Instructions, # 1 each, Refills 0, [...] days., 08/11/23 11:15:00 EDT, Recently sent to [facility]... Start Date: 08/11/23 Status: Ordered [...] 11 Refills, Maintenance, 11/28/21 21:27:00 EDT, Solution, [facility], 188, cm, 11/22/21 16:37:00 EDT, Height, [...] Gm, 5 Refills, Maintenance, 12/22/21 7:28:00 EDT, [facility], same Rx was sent 11/11 w/ [...] 3 Refills, Maintenance, 05/07/23 16:31:00 EST, Tablet, [facility], 188, cm, 04/26/23 13:06:00 EST, Height, 126.09, kg, 04/26/23 13:06:00 EST, Dry Weight Start Date: 05/07/23 Status: Ordered metFORMIN 750 mg oral tablet, extended release 1 tablet = 750 mg, By Mouth, Daily, [replaces the metformin 500mg bid], # 30 tablet, 5 Refills, Maintenance, 05/15/23 8:10:00 EST, ER Tablet, [facility] [...] tablet, 0 Refills, Maintenance, pain, 10/09/23 21:08:00 EDT,[facility], May partial fill., 0... Start Date: 10/09/23 Status: Ordered methadone 10 mg oral tablet See Instructions, By mouth. 2 tab in AM, 1.5 midday, 2 in evening;for pain. IDC10: G90.5 CRPS. 28 day supply. [facility]., # 154 tablet, 0 Refills, Maintenance, pain, 09/11/23 21:08:00 EDT,[facility], May partial fill., 0... Start Date: 09/11/23 Status: Ordered methadone 10 mg oral tablet See Instructions, By mouth. 2 tab in AM, 1.5 midday, 2 in evening;for pain. IDC10: G90.5 CRPS. 28 day supply. [facility]., # 154 tablet, 0 Refills, Maintenance, pain, 08/14/23 21:08:00 EDT,[facility], August partial fill., 0... Start Date: 08/14/23 Status: Ordered methadone 10 mg oral tablet See Instructions, By mouth. 2 tab in AM, 1.5 midday, 2 in evening;for pain. IDC10: G90.5 CRPS. 28 day supply. [facility]., # 154 tablet, 0 Refills, Maintenance, pain, 04/24/23 22:44:00 EST,[facility], May partial fill., 188, cm,... Start Date: 04/24/23 Status: Ordered Mounjaro 10 mg/0.5 mL subcutaneous solution = 10 mg, Subcutaneous Infusion, Every 7 days, please interchange with other Rx for 7.5 mg if unavailable., # 4 each, 11 Refills, Maintenance, 07/26/23 14:10:00 EDT, [facility], Partial fillupon patient request if the prescription is for a s... Start Date: 07/26/23 Status: Ordered Mounjaro 7.5 mg/0.5 mL subcutaneous solution = 7.5 mg, Subcutaneous Injection, Every week, rotate injection sites, # 4 each, 5 Refills, Maintenance, 07/07/23 17:04:00 EDT, Solution, [facility], should still have a couple [...] 1 Refills, Soft Stop, 02/16/22 23:38:00 EDT, [facility], 188, cm, 02/16/22 13:07:00 EDT, Height,122.63, kg, 11/22/21 16:37:00 EDT, Dry Weight Start Date: 02/16/22 Status: Ordered ondansetron 4 mg oral tablet Rx by Idalia Lori, # 60, Maintenance, 08/11/23 11:48:00 EDT Start Date: 08/11/23 Status: Ordered pantoprazole 40 mg oral delayed release tablet 0 Refills, Maintenance, 02/16/22 23:33:00 EDT Start Date: 02/16/22 Status: Ordered Pen [place], 31 G x 8 mm BD Ultra [...] 02/18/23 19:20:00 EST, Route to Pharmacy Electronically, [facility], 188, cm, 01/30/23 13:26:00 EDT, Height, [...] tablet, 5 Refills, Maintenance, 07/09/23 11:09:00 EDT, [facility], 30, 1 tablet By Mouth Daily, 188, cm, 07/05/23 11:09:00 EDT, Height, 126.09, kg, 04/26/23 13:06:00 EST, Dry Weight Start Date: 07/09/23 Status: Ordered tamsulosin 0.4 mg oral capsule 0.8 mg, 2, capsule, By Mouth, Daily, dose increase, # 180 capsule, Refills 11, Tot. Refills 11, Maintenance, 07/26/23 14:15:00 EDT, Route to Pharmacy Electronically, [facility], 188, cm, 07/26/23 13:30:00 EDT, Height, 121.81, kg, 07/26/23 13... Start Date: 07/26/23 Status: Ordered Test Strips See Instructions, # 100 each, Refills 5, Tot. Refills 5, Maintenance, Precision Ganga strips (for Freestyle Tatyana glucometer). Type 2 diabetes mellitus on insulin (E11, Z79.4). Test 2-4x/day if symptoms, or sensor concerns., 02/08/23 10:36:00 EDT, [facility]... Start Date: 02/08/23 Status: Ordered Test [...] Intramuscular, Every 14 days, IM or subcutaneous. [facility]., # 2 mL, 5 Refills, Maintenance, 08/11/23 11:20:00 EDT, [facility], Last sent to [facility]. Sending now to [facility] due to pt request wale... Start Date: 08/11/23 Status: Ordered tiZANidine 4 mg oral tablet 4 mg, 1, tablet, By Mouth, 3 times a day, PRN, # 90 tablet, Refills 11, Tot. Refills 11, Maintenance, as needed for muscle spasm, 09/10/23 13:47:00 EDT, Route to Pharmacy Electronically, [facility], 188, cm, 07/26/23 17:37:00 EDT, Height, 12... Start Date: 09/10/23 Status: Ordered Toujeo Max SoloStar 300 units/mL subcutaneous solution = 70 units, Subcutaneous Injection, Daily, decrease frin 90u, # 12 mL, 11 Refills, Maintenance, 07/26/23 14:19:00 EDT, Solution, [facility], replaces Lantus due to insurance coverage, 188, cm, 07/26/23 13:30:00 EDT, Height, 121.81, kg, 07/25... Start Date: 07/26/23 Status: Ordered Tylenol Extra Strength 500 mg oral tablet 2 tablet = 1,000 mg, By Mouth, 3 times a day, # 30 tablet, 11 Refills, Maintenance, 03/24/21 21:00:00 EST, [facility], 188, cm, 03/22/21 14:17:00 EST, Height, 125.2, kg, 06/20/20 14:28:00 EST, Dry Weight Start Date: 03/24/21 Status: Ordered Vitamin D3 1000 intl units oral tablet 1 tablet, By Mouth, Daily, # 90 tablet, 4 Refills, Maintenance, 04/01/23 22:28:00 EST, [facility], 188, cm, 01/30/23 13:26:00 EDT, Height, [...] ? chr regional pain syndrome 4s/p Modified [place] procedure, repair of conjoined tendon of extensor [...] Team Personnel Name: Shoaib An RN Position: [facility] RN Supv Member Role: Primary Care Nurse Name: Donovan DE LOS SANTOS, Vamshi Oshea Position: [facility] Physician - Primary Care Member Role: PCP Address: Address: [address] [place] [address]- Name: Luz Potter Position: [facility] Outreach Member Role: Lifetime Consulting Physician Name: Miki Rodriguez MD Position: [facility] Renal MD Member Role: Lifetime Consulting Physician Address: Address: [address] [facility], [place] [address]- Care Team Related Persons Name: BRANDON MTZ Address: home [address] [place] [address] Name: BRANDON BARKER Address: home [address] [place] [address] Name: ROSALINDA BERTRAND
--- OUTSIDE RECORDS SUMMARY | 2023-10-11 08:20 | XMS_ITS | Continuity of Care Document ---
Author Organization [facility] Address [address] [place] [address]- Care Team Providers Care Wool Fleece Grader Name Role Phone Vamshi Man MD Primary Care Physician Encounter [facility] Date(s): 03/28/22 - 04/27/22 [facility] [address]- [place] Allergies, Adverse Reactions, Alerts Substance Reaction Severity Status penicillin 1 rash Resolved Latex RASH Active Other Food Allergy fresh peaches - itch y mouth, throat and lips swell Active 1rash per mother as child. Did take a penicillin for treatment of H pylori per pt w/o problem. Immunizations Given and Recorded Vaccine Date Status Refusal Reason [id number] 12y+ bivalent booster vax 02/16/22 Given pneumococcal 20-valent conjugate vaccine 02/16/22 Given Influenza Virus Vaccine (oldterm) 1 01/27/22 Recor ded Influenza Virus Vaccine (oldterm) 01/26/21 Recorde d SARS-CoV-2 mRNA ([id number]) vax 11/11/21 Given SARS-CoV-2 (COVID-19) mRNA BNT-162b2 [...] Bertrand 13Result Comment: [11/27/2017] REceived at [facility] at [place], [place]; ordered by Dr Michael Oliveira 14Location [...] tablet, 5 Refills, Maintenance, 11/20/21 13:03:00 EDT, [facility], 188, cm, 11/11/21 12:46:00 EDT, Height, 125.2, kg, 06/20/20 14:28:00 EST, Dry Weight Start Date: 11/20/21 Status: Ordered atorvastatin 40 mg oral tablet 1 tablet, By Mouth, Daily, # 90 tablet, 1 Refills, Maintenance, 04/10/22 12:34:00 EST, [facility], 188, cm, 02/16/22 13:07:00 EDT, Height, [...] 2 Refills, Maintenance, 04/27/22 23:43:00 EST, Cream, [facility], 1 application Topically 2 times a [...] 11 Refills, Maintenance, 04/15/22 13:02:00 EST, Gel, [facility]... Start Date: 04/15/22 Status: Ordered docusate [...] May cause drowsiness, do notdrive after taking Indian, # 28 tablet, 0 Refills, Maintenance, 04/07/22 15:51:00 EST, [facility], 188, cm, 02/16/22 13:07:00 EDT, Heigh... Start [...] 11 Refills, Maintenance, 11/28/21 21:27:00 EDT, Solution, [facility], 188, cm, 11/22/21 16:37:00 EDT, Height, [...] mL, 5 Refills, Maintenance, 01/23/22 8:43:00 EDT, [facility], 188, cm, 12/26/21 14:06:00 EDT, Height, 122.63, kg, 11/22/21 16:37:00 EDT, Dry Weight Start Date: 01/23/22 Status: Ordered latanoprost 0.005% ophthalmic solution 0 Refills, Maintenance, 05/11/20 16:57:00 EST Start Date: 05/11/20 Status: Ordered lidocaine 5% topical ointment See Instructions, PRN Pain , Moderate, 1 APPLICATION TOPICALLY 3 TIMES A DAY, # 50 Gm, 5 Refills, Maintenance, 12/22/21 7:28:00 EDT, [facility], same Rx was sent 11/11 w/ [...] 30 tablet, 5 Refills, 03/20/22 10:07:00 EST, [facility], 188, cm, 02/16/22 13:07:00 EDT, Height, [...] Daily, Take with food PRN back pain Indian, # 14 tablet, 0 Refills, Maintenance, 11/25/21 [...] tablet, 0 Refills, Maintenance, pain, 07/18/22 23:44:00 EDT,[facility], May partial fill., 07/18/22... Start Date: 07/18/22 Status: Ordered methadone 10 mg oral tablet See Instructions, By mouth. 2 tab in AM, 1.5 midday, 2 in evening;for pain. IDC10: G90.5 CRPS. 28 day supply. [facility]., # 154 tablet, 0 Refills, Maintenance, pain, 05/23/22 23:44:00 EST,[facility], May partial fill., 05/23/22... Start Date: 05/23/22 Status: Ordered methadone 10 mg oral tablet See Instructions, By mouth. 2 tab in AM, 1.5 midday, 2 in evening;for pain. IDC10: G90.5 CRPS. 28 day supply. [facility]., # 154 tablet, 0 Refills, Maintenance, pain, 03/07/23 23:45:00 EST,[facility], May partial fill., 06/20/22... Start Date: [...] EDT Start Date: 02/16/22 Status: Ordered Pen [place], 31 G x 8 mm BD Ultra [...] mL, 11 Refills, Maintenance, 04/27/22 23:40:00 EST, [facility], 188, cm, 04/27/22 13:44:00 EST, Height, 122.63, kg, 11/22/21 16:37:00 EDT,... Start Date: 04/27/22 Status: Ordered Singulair 10 mg oral tablet 10 mg, 1, tablet, By Mouth, Daily, # 90 tablet, Refills 3, Tot. Refills 3, Maintenance, 03/30/20 21:31:00 EST, Route to Pharmacy Electronically, [facility], 185, cm, 02/25/20 10:29:00 EST, Height, 126.81, kg, 02/25/20 10:29:00 EST, Dry Weight Start Date: 03/30/20 Status: Ordered tamsulosin 0.4 mg oral capsule 0.4 mg, 1, capsule, By Mouth, Daily, Per urology, # 30 capsule, Refills 11, Tot. Refills 11, Maintenance, 02/16/22 23:29:00 EDT, Route to Pharmacy Electronically, [facility], 188, cm, 02/16/22 13:07:00 EDT, Height, [...] Intramuscular, Every 14 days, IM or subcutaneous. [facility]., # 2 mL, 5 Refills, Maintenance, 02/05/22 22:55:00 EDT, [facility], 188, cm, 12/26/21 14:06:00 EDT, Height, 122.63, kg, 11/22/21 16:37:00 EDT, Dry Weight Start Date: 02/05/22 Status: Ordered tiZANidine 4 mg oral tablet 4 mg, 1, tablet, By Mouth, 3 times a day, PRN, # 90 tablet, Refills 11, Tot. Refills 11, Maintenance, as needed for muscle spasm, 08/12/21 11:09:00 EDT, Route to Pharmacy Electronically, [facility], 188, cm, 07/27/21 8:34:00 EDT, Height, 125... Start Date: 08/12/21 Status: Ordered traZODone 100 mg oral tablet TAKE ONE TO TWO TABLETS BY MOUTH AT BEDTIME NEEDED Damaris Morales Start Date: 05/11/20 Status: Ordered Tylenol Extra Strength 500 mg oral tablet 2 tablet = 1,000 mg, By Mouth, 3 times a day, # 30 tablet, 11 Refills, Maintenance, 03/24/21 21:00:00 EST, [facility], 188, cm, 03/22/21 14:17:00 EST, Height, 125.2, kg, 06/20/20 14:28:00 EST, Dry Weight Start Date: 03/24/21 Status: Ordered Vitamin D3 1000 intl units oral tablet 1 tablet, By Mouth, Daily, for 30 days, # 30 tablet, 11 Refills, Physician Stop 10/30/22 17:07:00 EDT, 11/04/21 17:07:00 EDT, [facility], 188, cm, 09/15/21 12:49:00 EDT, Height, [...] ? chr regional pain syndrome 4s/p Modified [place] procedure, repair of conjoined tendon of extensor [...] Team Personnel Name: Shoaib An RN Position: [facility] RN Supv Member Role: Primary Care Nurse Name: Vamshi Man MD Position: [facility] Primary Care Physician Member Role: PCP Address: Address: [address] [place] [address]- Name: Miki Rodriguez MD Position: [facility] Renal MD Member Role: Lifetime Consulting Physician Address: Address: [address] [facility] [place] [address]- Care Team Related Persons Name: BRANDON MTZ Address: home [address] [place] [address] Name: BRANDON BARKER Address: home [address] [place] [address] Name: ROSALINDA BERTRAND Address: home [address] [place] [address]
--- OUTSIDE RECORDS SUMMARY | 2023-10-11 08:20 | XMS_ITS | Continuity of Care Document ---
Author Organization [facility] Address [address] [place] [address]- Care Team Providers Care Telephone Order Clerk Room Service Name Role Phone Vamshi Man MD Primary Care Physician [phone] Encounter [facility] Date(s): 06/09/20 - 07/09/20 [facility]/[address] [address]- Allergies, Adverse Reactions, Alerts Substance Reaction Severity [...] REceived at [facility] at [place], [place]; ordered by Dr Michael Oliveira 13Location [...] 03/30/20 21:31:00 EST, Route to Pharmacy Electronically, [facility], Airizuilcate rx. original sent 11/04/19. remaining refills sent., [...] capsule, 3 Refills, Maintenance, 03/30/20 21:36:00 EST, [facility], 185, cm, 02/25/20 10:29:00 EST, Height, 126.81, kg, 02/25/20 10:29:00 EST, Dry Weight Start Date: 03/30/20 Status: Ordered clotrimazole 1% topical cream 1 application, Topically, 2 times a day, apply to penile rash, # 30 Gm, 2 Refills, Maintenance, 01/07/20 14:49:00 EDT, Cream, [facility], 1 application Topically 2 times a day,Instr:apply to penile rash, 185, cm, 01/07/20 13:55:00 EDT, [facility]... Start Date: 01/07/20 Status: Ordered Cozaar 100 mg oral tablet 1 tablet = 100 mg, By Mouth, Daily in AM, # 30 tablet, 5 Refills, Maintenance, 03/15/20 17:08:00 EST, Tablet, [facility], duplicate rx. original sent 09/16/19. remaining [...] 06/25/20 15:39:00 EST, Route to Pharmacy Electronically, [facility], Partial f... Start Date: 06/25/20 Status: Ordered diclofenac 1% topical gel = 2 Gm, Topically, 4 times a day, PRN for pain, (finnish) not to exceed: 16 gm/day/joint lower limb8 gm/day/joint of upper limb 32 gm/day may interchange for cream, # 100 Gm, 5 Refills, Maintenance,07/08/20 15:35:00 EDT, Gel, [facility] Start Date: 07/08/20 Status: Ordered docusate [...] 11 Refills, Maintenance, 02/15/20 21:05:00 EST, Solution, [facility], 185, cm, 01/07/20 13:55:00 EDT, Height, [...] mL, 3 Refills, Maintenance, 07/08/20 15:42:00 EDT, [facility], Duplicate rx-Original rx sent 06/22/20. Resent., 188, cm, 07/08/20 13:42:00 EDT, Height, 125.2, kg, 06/20/20 14:28:00 EST,... Start Date: 07/08/20 Status: Ordered latanoprost 0.005% ophthalmic solution 0 Refills, Maintenance, 05/11/20 16:57:00 EST Start Date: 05/11/20 Status: Ordered Lipitor 40 mg oral tablet 1 tablet = 40 mg, By Mouth, Daily, # 90 tablet, 3 Refills, Maintenance, 03/30/20 21:30:00 EST, [facility], duplicate rx. original sent 11/04/19. remaining [...] 3 Refills, Maintenance, 07/08/20 15:40:00 EDT, Tablet, [facility], Duplicate rx-Original rx sent06/22/20. Resent., 188, cm, 07/08/20 13:42:00 EDT, He... Start Date: 07/08/20 Status: Ordered methadone 10 mg oral tablet See Instructions, By mouth. 2 tab in AM, 1.5 midday, 2 in evening;for pain. IDC10: G90.5 CRPS. 28 day supply. [facility]., # 154 tablet, 0 Refills, Maintenance, pain, 07/20/20 15:43:00 EDT,[facility], May partial fill., 188, cm,... Start Date: 07/20/20 Status: Ordered methadone 10 mg oral tablet See Instructions, By mouth. 2 tab in AM, 1.5 midday, 2 in evening;for pain. IDC10: G90.5 CRPS. 28 day supply. [facility]., # 154 tablet, 0 Refills, Maintenance, pain, 08/17/20 15:47:00 EDT,[facility], May partial fill., 08/17/20... Start Date: [...] Start Date: 05/15/18 Status: Ordered nystatin-triamcinolone topical 238435 u/gm-0.1% ointment 1 applicator, Topically, 3 times a day, to foreskin area FOR 3 DAYS then switch to other antifungal, # 15 Gm, 1 Refills, Maintenance, 07/08/20 15:34:00 EDT, [facility], 1 applicator Topically 3 times a [...] EDT Start Date: 08/20/18 Status: Ordered Pen [place], 31 G x 8 mm BD Ultra [...] 03/30/20 21:31:00 EST, Route to Pharmacy Electronically, [facility], 185, cm, 02/25/20 10:29:00 EST, Height, [...] solution 0.75 mL, Intramuscular, Every 14 days, [facility], # 5 mL, 5 Refills, Maintenance, 01/11/20 21:30:00 EDT, [facility], 185, cm, 01/07/20 13:55:00 EDT, Height, 127.72, kg, 05/06/19 13:41:00 EST, Dry Weight Start Date: 01/11/20 Status: Ordered tiZANidine 4 mg oral tablet 4 mg, 1, tablet, By Mouth, 3 times a day, PRN, # 90 tablet, Refills 11, Tot. Refills 11, Maintenance, as needed for muscle spasm, 07/08/20 15:40:00 EDT, Route to Pharmacy Electronically, [facility], 188, cm, 07/08/20 13:42:00 EDT, Height, [...]
--- OUTSIDE RECORDS SUMMARY | 2023-10-11 08:20 | XMS_ITS | Continuity of Care Document ---
Author Organization [facility] Address [address] [place] [address]- Care Team Providers Care Autocad Detailer Name Role Phone Vamshi Man MD Primary Care Physician Encounter [facility] Date(s): 05/11/20 - 06/24/20 [facility] [address] [place] [address]- Attending Physician: Not on Staff, Attending MD [...] Gi adrianne influenza virus vaccine, inactivated 9 9/22/09 Gi adrianne influenza virus vaccine, inactivated 03/19/06 [...] at [facility] [place], [place]; ordered by Dr Michael Oliveira 13Location [...] 03/30/20 21:31:00 EST, Route to Pharmacy Electronically, [facility], dupilcate rx. original sent 11/04/19. remaining refills sent., 185, cm, 02/25/20 10:29:00 EST, Hei... Start Date: 03/30/20 Status: Ordered AutoCPAP 9-18 with heated humidification AutoCPAP 9-18 with heated humidification, See Instructions, # 1 each, Refills 0, Tot. Refills 0, Maintenance, use overnight and naps from [facility], [facility], 11/04/18 12:28:22 EDT, Compound Start Date: 11/04/18 [...] capsule, 3 Refills, Maintenance, 03/30/20 21:36:00 EST, [facility], 185, cm, 02/25/20 10:29:00 EST, Height, 126.81, kg, 02/25/20 10:29:00 EST, Dry Weight Start Date: 03/30/20 Status: Ordered clotrimazole 1% topical cream 1 application, Topically, 2 times a day, apply to penile rash, # 30 Gm, 2 Refills, Maintenance, 01/07/20 14:49:00 EDT, Cream, [facility], 1 application Topically 2 times a day,Instr:apply to penile rash, 185, cm, 01/07/20 13:55:00 EDT, Hechidi... Start Date: 01/07/20 Status: Ordered Cozaar 100 mg oral tablet 1 tablet = 100 mg, By Mouth, Daily in AM, # 30 tablet, 5 Refills, Maintenance, 03/15/20 17:08:00 EST, Tablet, [facility], duplicate rx. original sent 09/16/19. remaining [...] 06/27/20 14:15:00 EDT, 06/20/20 14:15:00 EST, Tablet, [facility]/pharmacy #[id number], Partial fill upon patient request if th... Start Date: 06/20/20 Stop Date: 06/27/20 Status: Ordered diclofenac 1% topical gel = 2 Gm, Topically, 4 times a day, PRN for pain, (mohawk) not to exceed: 16 gm/day/joint lower limb8 gm/day/joint of upper limb 32 gm/day, # 100 Gm, 1 Refills, Maintenance, 10/27/19 10:15:00 EDT, Gel, [facility], 185, cm, 06/24/19 13:00:... Start Date: [...] 11 Refills, Maintenance, 02/15/20 21:05:00 EST, Solution, [facility], 185, cm, 01/07/20 13:55:00 EDT, Height, [...] 06/20/20 14:15:00 EST, [id number] Partial fill upon patient request... Start Date: 06/20/20 Stop Date: 06/27/20 Status: Ordered ketotifen 0.025% ophthalmic solution INSTILL 1 DROP INTO AFFECTED EYE TWICE A DAY Dr Poe Start Date: 05/11/20 Status: Ordered Lantus Solostar Pen 100 units/mL subcutaneous solution = 90 units, Subcutaneous Infusion, Daily at bedtime, # 30 mL, 3 Refills, Maintenance, 06/23/20 23:04:00 EST, [facility], Duplicate rx-Original rx sent 06/22/20. Resent., [...] Gm, 5 Refills, Maintenance, 10/28/19 20:11:00 EDT, [facility], 1 application Topically 3 times a day,Instr:may interchang... Start Date: 10/28/19 Status: Ordered lidocaine 4% topical film 1 patch, Topically, 2 times a day, for 5 days, # 10 patch, 0 Refills, Acute 06/25/20 14:16:00 EST, 06/20/20 14:16:00 EST, Film[id number] Partial fill upon patient request if the prescription is for a schedule II opioid drug., 1 patch Topica... Start Date: 06/20/20 Stop Date: 06/25/20 Status: Ordered Lipitor 40 mg oral tablet 1 tablet = 40 mg, By Mouth, Daily, # 90 tablet, 3 Refills, Maintenance, 03/30/20 21:30:00 EST, [facility], duplicate rx. original sent 11/04/19. remaining [...] 3 Refills, Maintenance, 06/23/20 23:04:00 EST, Tablet, [facility], Duplicate rx-Original rx sent06/22/20. Resent., 188, cm, 06/20/20 14:28:00 EST, He... Start Date: 06/23/20 Status: Ordered methadone 10 mg oral tablet See Instructions, By mouth. 2 tab in AM, 1.5 midday, 2 in evening;for pain. IDC10: G90.5 CRPS. 28 day supply. [facility]., # 154 tablet, 0 Refills, Maintenance, pain, 06/21/20 17:50:00 EST,[facility], May partial fill., 185, cm,... Start Date: 06/21/20 Status: Ordered methadone 10 mg oral tablet See Instructions, By mouth. 2 tab in AM, 1.5 midday, 2 in evening;for pain. IDC10: G90.5 CRPS. 28 day supply. [facility]., # 154 tablet, 0 Refills, Maintenance, pain, 05/24/20 16:29:00 EST,[facility], May partial fill., 05/24/20... Start Date: [...] Start Date: 05/15/18 Status: Ordered nystatin-triamcinolone topical 299681 u/gm-0.1% ointment 1 applicator, Topically, 3 times a day, to foreskin area FOR 3 DAYS then switch to other antifungal, # 15 Gm, 1 Refills, Maintenance, 01/07/20 14:48:00 EDT, [facility], 1 applicator Topically 3 times a [...] EDT Start Date: 08/20/18 Status: Ordered Pen [place], 31 G x 8 mm BD [...] 03/30/20 21:31:00 EST, Route to Pharmacy Electronically, [facility], 185, cm, 02/25/20 10:29:00 EST, Height, [...] solution 0.75 mL, Intramuscular, Every 14 days, [facility], # 5 mL, 5 Refills, Maintenance, 01/11/20 21:30:00 EDT, [facility], 185, cm, 01/07/20 13:55:00 EDT, Height, 127.72, kg, 05/06/19 13:41:00 EST, Dry Weight Start Date: 01/11/20 Status: Ordered tiZANidine 4 mg oral tablet 4 mg, 1, tablet, By Mouth, 3 times a day, PRN, # 90 tablet, Refills 11, Tot. Refills 11, Maintenance, as needed for muscle spasm, 05/11/20 18:47:00 EST, Route to Pharmacy Electronically, [facility], 185, cm, 02/25/20 10:29:00 EST, Height, [...] 06/27/20 14:15:00 EDT, 06/20/20 14:15:00 EST, Tablet, [facility]/pharmacy #[id number], Partial fill upon patient request [...] ? chr regional pain syndrome 4s/p Modified [place] procedure, repair of conjoined tendon of extensor [...]
--- OUTSIDE RECORDS SUMMARY | 2023-10-11 08:20 | XMS_ITS | Continuity of Care Document ---
Author Organization [facility] Address Unknown Care Team Providers Care Bell Hole Digger Name Role Phone Vamshi Man MD Primary Care Physician [phone] Encounter [facility] Date(s): 07/27/21 - 10/28/21 [facility] Attending Physician: Vamshi Man MD Admitting [...] 12Result Comment: [11/27/2017] REceived at [facility] at [place], [place]; ordered by Dr Michael Oliveira 13Location [...] tablet, 5 Refills, Maintenance, 05/14/21 20:06:00 EST, [facility], 188, cm, 03/22/21 14:17:00 EST, Height, 125.2, kg, 06/20/20 14:28:00 EST, Dry Weight Start Date: 05/14/21 Status: Ordered atorvastatin 40 mg oral tablet 1 tablet, By Mouth, Daily, # 90 tablet, 1 Refills, [facility], 188, cm, 09/15/21 12:49:00EDT, Height, 125.2, [...] 2 Refills, Maintenance, 09/15/21 14:49:00 EDT, Cream, [facility], 1 [...] 06/25/20 15:39:00 EST, Route to Pharmacy Electronically, [facility], Partial f... Start Date: 06/25/20 Status: Ordered diclofenac 1% topical gel = 2 Gm, Topically, 4 times a day, PRN for pain, (equatorial guinean) not to exceed: 16 gm/day/joint lower limb8 gm/day/joint of upper limb 32 gm/day may interchange for cream, # 100 Gm, 5 Refills, Maintenance,07/08/20 15:35:00 EDT, Gel, [facility] Start Date: 07/08/20 Status: Ordered docusate [...] 08/22/21 16:07:00 EDT, Route to Pharmacy Electronically, [facility], Partial fill upon patient request i... Start Date: 08/22/21 Status: Ordered gabapentin 600 mg oral tablet 1 tablet = 600 mg, By Mouth, Daily at bedtime, for sciatic pain, # 25 tablet, 1 Refills, Maintenance, 09/15/21 14:34:00 EDT, [facility], Partial fill upon patient request if [...] tablet, 11 Refills, Maintenance, 07/25/21 20:18:00 EDT, [facility], 188, cm, 06/28/21 16:20:00 EDT, Height, [...] mL, 11 Refills, Maintenance, 01/14/21 18:16:00 EDT, [facility], 188, cm, 12/22/20 9:45:00 EDT, Height, 125.2, kg, 06/20/20 14:28:00EST, Dry Weight Start Date: 01/14/21 Status: Ordered latanoprost 0.005% ophthalmic solution 0 Refills, Maintenance, 05/11/20 16:57:00 EST Start Date: 05/11/20 Status: Ordered lidocaine 5% topical ointment See Instructions, PRN Pain , Moderate, 1 APPLICATION TOPICALLY 3 TIMES A DAY, # 50 Gm, 5 Refills, Maintenance, 08/29/21 22:40:00 EDT, [facility], 1 APPLICATION TOPICALLY 3 TIMES A DAY,PRN:Pain , Moderate, 188, cm, 08/26/21 9:59:00 EDT, [facility] Start Date: 08/29/21 Status: Ordered LORazepam 1 mg oral tablet See Instructions, PRN for anxiety, 2 tablets By Mouth 1 hours prior to MRI, # 2 tablet, 1 Refills, Maintenance, 05/25/21 10:06:00 EST, Tablet, [facility], 188, cm, 05/25/21 9:26:00 EST, Height, 125.2, kg, 06/20/20 14:28:00 EST, Dry Weight Start Date: 05/25/21 Status: Ordered losartan 100 mg oral tablet 1 tablet, By Mouth, Daily in AM, # 30 tablet, 5 Refills, [facility], 188, cm, 09/15/21 12:49:00 EDT, Height, [...] 1 Refills, Maintenance, 09/15/21 14:35:00 EDT, Tablet, [facility], Partial fill upon patient request if [...] pain. IDC10: G90.5 CRPS. 28 day supply. [facility]., # 154 tablet, 0 Refills, Maintenance, pain, 11/08/21 7:19:00 EDT, [facility], May partial fill., 188, cm,... Start Date: 11/08/21 Status: Ordered methadone 10 mg oral tablet See Instructions, By mouth. 2 tab in AM, 1.5 midday, 2 in evening;for pain. IDC10: G90.5 CRPS. 28 day supply. [facility]., # 154 tablet, 0 Refills, Maintenance, pain, 12/06/21 7:20:00 EDT, [facility], May partial fill., 12/06/21,... Start Date: 12/06/21 Status: Ordered Metoclopramide = 10 mg, By Mouth, 3 times a day before meals and bedtime, 0 Refills, Maintenance, 08/20/18 13:55:26 EDT Start Date: 08/20/18 Status: Ordered multivitamin Multiple Vitamins oral tablet 1 tablet, By Mouth, Daily, B complex multivitamin, # 30 tablet, 11 Refills, Maintenance, 12/22/20 10:52:00 EDT, [facility], Partial fill upon patient request if the prescription is for a schedule II opioid drug., 1 tablet By Mouth Daily,Inst... Start Date: 12/22/20 Status: Ordered Narcan 4 mg/0.1 mL nasal spray = 4 mg, Nares, Both, Once, may repeat every 2 to 3 minutes until patient responds, # 2 each, 0 Refills, Soft Stop, 05/25/21 10:17:00 EST, [facility], 188, cm, 05/25/21 9:26:00 EST, Height, 125.2, kg, 06/20/20 14:28:00 EST, Dry Weight Start Date: 05/25/21 Status: Ordered nystatin-triamcinolone topical 283175 u/gm-0.1% ointment 1 applicator, Topically, 3 times a day, to foreskin area FOR 3 DAYS then switch to other antifungal, # 15 Gm, 1 Refills, Maintenance, 05/25/21 10:20:00 EST, [facility], 1 applicator Topically 3 times a [...] [place] Start Date: 08/20/18 Status: Ordered Pen [place], 31 G x 8 mm BD Ultra [...] each, 11 Refills, Maintenance, 09/15/21 14:29:00 EDT, [facility], Partial fill upon patient request if the prescription is for a schedule II opioid drug., 188, cm, 09/15/21 12:4... Start Date: 09/15/21 Status: Ordered Singulair 10 mg oral tablet 10 mg, 1, tablet, By Mouth, Daily, # 90 tablet, Refills 3, Tot. Refills 3, Maintenance, 03/30/20 21:31:00 EST, Route to Pharmacy Electronically, [facility], 185, cm, 02/25/20 10:29:00 EST, Height, [...] solution 0.75 mL, Intramuscular, Every 14 days, [facility], # 5 mL, 5 Refills, Maintenance, 07/27/21 9:48:00 EDT, [facility], 188, cm, 07/27/21 8:34:00 EDT, Height, 125.2, kg, 06/20/20 14:28:00 EST, Dry Weight Start Date: 07/27/21 Status: Ordered tiZANidine 4 mg oral tablet 4 mg, 1, tablet, By Mouth, 3 times a day, PRN, # 90 tablet, Refills 11, Tot. Refills 11, Maintenance, as needed for muscle spasm, 08/12/21 11:09:00 EDT, Route to Pharmacy Electronically, [facility], 188, cm, 07/27/21 8:34:00 EDT, Height, 125... Start Date: 08/12/21 Status: Ordered traZODone 100 mg oral tablet TAKE ONE TO TWO TABLETS BY MOUTH AT BEDTIME NEEDED S. Adynbrett Start Date: 05/11/20 Status: Ordered Tylenol Extra Strength 500 mg oral tablet 2 tablet = 1,000 mg, By Mouth, 3 times a day, # 30 tablet, 11 Refills, Maintenance, 03/24/21 21:00:00 EST, [facility], 188, cm, 03/22/21 14:17:00 EST, Height, 125.2, kg, 06/20/20 14:28:00 EST, Dry Weight Start Date: 03/24/21 Status: Ordered Vitamin D3 1000 intl units oral tablet 1 tablet, By Mouth, Daily, # 30 tablet, 5 Refills, [facility], 188, cm, 03/22/21 14:17:00EST, Height, 125.2, [...]
== END 2023-10-10 11:54 | disposition left against medical advice (07) ==
LOC: HO.ED 08:28
PROVIDERS: Emergency Provider Emergency Medicine; PCP Internal Medicine
DX: M54.10 Radiculopathy, site unspecified (principal); M54.50 Low back pain, unspecified; I10 Essential (primary) hypertension; E11.9 Type 2 diabetes mellitus without complications; K21.9 Gastro-esophageal reflux disease without esophagitis; J45.909 Unspecified asthma, uncomplicated; Z79.899 Other long term (current) drug therapy
CPT/HCPCS: 72100; 99281; 99283

== ENCOUNTER 2023-11-13 08:27 | Outpatient (AMB) | payer MEDICARE, MEDICAID, SELFPAY ==
[2023-11-13 08:33] VITALS: BP 122/62; PULSE 89; BMI 32.5
--- NOTE | 2023-11-13 08:33 | A.OFFVIS_ITS ---
Vital Signs 11/13/23 08:33 Height 6 ft 2 in Weight 253 lb 8.505 oz BMI 32.5 BP 122/62 Blood Pressure Location Lt brachial Position Sitting Pulse 89 Pulse Source Monitor Intake Visit Reasons: r/s 08/22/23 claim professional/dr stearns/cardiomyopathy Category Specialist Required: Yes Category Specialist Name: GORDON [id number] Allergies Penicillins [PENICILLINS] Allergy (Unknown, Verified 10/10/23 08:03) RASH lactose Adverse Reaction (Intermediate, Uncoded 10/10/23 08:03) Abdominal Pain Medication List - Last Reconciled 11/13/23 by Rasheed Purvis MD albuterol sulfate 90 mcg/actuation 2 puffs inhalation Q4H PRN alprazolam 1 tab PO BID PRN aspirin (Aspirin Childrens) 81 mg PO DAILY atorvastatin (Lipitor) 80 mg PO BEDTIME blood sugar diagnostic (FreeStyle Lite Strips) As directed brimonidine 0.15% 1 drp ophthalmic (eye) Q8H bupropion HCl XL 300 mg PO DAILY carvedilol 6.25 mg PO BID cholecalciferol (vitamin D3) 25 mcg PO DAILY cyclobenzaprine 10 mg PO duloxetine 60 mg PO DAILY finasteride (Proscar) 5 mg PO DAILY 90 days fluticasone propionate 110 mcg/actuation (Flovent HFA) 2 puffs inhalation BID hydrocortisone 2.5% (Procto-Med HC) 1 appl IN BID-QID PRN ibuprofen 800 mg PO Q8H PRN 30 days insulin glargine U-300 conc (Toujeo Max U-300 SoloStar) 70 units subcut DAILY insulin lispro 1 sliding scale dose subcut USEASDIRECTD ketotifen fumarate 0.025%(0.035%) 1 drp ophthalmic (eye) BID latanoprost 0.005% 1 drp ophthalmic (eye) BEDTIME levocetirizine 5 mg PO DAILY linaclotide (Linzess) 290 mcg PO DAILY PRN magnesium oxide 400 mg PO DAILY metformin ER 750 mg PO DAILY methadone 10 mg PO TID PRN metoclopramide HCl 10 mg PO TID montelukast (Singulair) 10 mg PO DAILY multivitamin with folic acid 400 mcg (Tab-A-Kelsie) 1 tab PO DAILY naloxone 4 mg/actuation (Narcan) 1 spray intranasal ondansetron 4 mg PO Q8H PRN 3 days pantoprazole 40 mg PO BID pen needle, diabetic (UltiCare Pen Needle) As directed pen needle, diabetic (Comfort EZ Pen [place]) As directed prazosin 2 mg PO BEDTIME prednisone 20 mg PO DAILY 7 days sacubitril-valsartan 49-51 mg (Entresto) 1 tab PO BID spironolactone 25 mg PO DAILY tamsulosin 0.4 mg PO BEDTIME testosterone enanthate 150 mg IM Q2W tirzepatide (Mounjaro) 10 mg subcut QWEEK tizanidine 4 mg PO TID PRN zolpidem 10 mg PO BEDTIME PRN HPI Comments Details: Elissa has been referred for cardiac evaluation. It seems that he is currently a patient at [facility] but would like to switch. Patient can not clearly say why he underwent cardiac evaluation but it seems that he underwent a coronary CTA as well as cardiac MRI. There is evidence of mild coronary disease and mild cardiomyopathy. Patient himself does not really have any clear-cut cardiac symptoms like angina or shortness of breath. Otherwise, generally feels okay. Many comorbidities. He is on polypharmacy. [facility] Medical History Obesity (BMI 30.0-34.9) Left flank discomfort Upper abdominal pain Constipation by delayed colonic transit GERD (gastroesophageal reflux disease) Elevated cholesterol HTN (hypertension) Bleeding hemorrhoids Diabetes mellitus Asthma Surgical History H/O foot surgery History of esophagogastroduodenoscopy (EGD) History of tonsillectomy History of sinus surgery History of neck surgery History of carpal tunnel release History of release of tendon History of umbilical hernia repair History of colonoscopy Family History Mother History of colon cancer Brother History of liver cancer Maternal Aunt History of colon cancer Father No problems noted. 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 Review of Systems Const Denies weakness ENT Denies dizziness Card Reports chest pain, Denies chest pain with activity, Denies syncope, Denies rapid heart rate, Denies pedal edema, Denies edema, Denies leg edema, Denies lightheadedness, Denies palpitations, Denies dyspnea, Denies dyspnea on exertion and Denies orthopnea Resp Denies cough, Denies dyspnea and Denies dyspnea on exertion GI Denies hematochezia and Denies change in stool character Musc Denies abnormal gait, Denies muscle cramps, Denies muscle weakness, Denies numbness, Denies radiating pain into limb and Denies tingling Neuro Denies abnormal gait, Denies dizziness, Denies syncope, Denies numbness, Denies tingling and Denies weakness Endo Denies palpitations Physical Exam Vital Signs: Last Vital Signs Pulse 89 11/13/23 08:33 BP 122/62 11/13/23 08:33 BMI result Body Mass Index 32.5 Const General: comfortable and no acute distress Orientation/consciousness: patient oriented x3 HEENT Other: Unremarkable Head: Yes normal to inspection Neck Neck: Yes normal visual inspection Chest Chest palpation & inspection: normal inspection of the chest Resp Auscultation: clear to auscultation bilaterally Cardio Palpation: normal PMI Heart sounds: S1 normal heart sound present, S2 normal heart sound present, no gallops, no murmurs and no rubs GI Palpation (GI): Soft to palpation Back/Spine/Pelvis Other: unremarkable Skin General skin exam: no rashes or lesions noted Neuro General: patient oriented x3 Extrem General: Yes normal to inspection Psych Mental Status: mental status grossly normal Office Procedures EKG Details: EKG with underlying sinus rhythm at 89/Min; nonspecific ST-T changes; PVCs; [place]. [id number], Complete Assessment & Plan Assessment & Plan (1) Cardiomyopathy: Code(s): I42.9 - Cardiomyopathy, unspecified Category: Medical (2) Atherosclerotic cardiovascular disease: Code(s): I25.10 - Atherosclerotic heart disease of resighini coronary artery without angina pectoris Category: Medical Plan Cardiac studies reviewed. Coronary CT from 06/2023-minimal stenosis in the ostial, proximal LAD, proximal circumflex, distal circumflex, proximal RCA with short segment of calcified plaque. Dilated main pulmonary artery up to 3.2 cm, possible pulmonary hypertension in setting of DHARA. Cardiac MRI 02/2023 suggestive nonischemic cardiomyopathy. Study limited due to motion artifact/arrhythmia. Mildly diminished LVEF at 47%. Mild wall thickening, greatest in the basal to mid septum. Late gadolinium enhancement with mildly increased mid wall signal in the basal to mid inferolateral wall and possibly the basal septum, possible infiltrative disease. Myocarditis not excluded. No evidence of infarct. Normal RV size and function. Overall, he has got mild coronary disease mild cardiomyopathy. Mainly risk factor modification considering his many comorbidities. For meds, he is on carvedilol, Entresto, statins and that seems to be very reasonable regimen for him. We will also request the last office note from [facility]. Reviewed [facility] labs from March. It seems there is elevation of free kappa light chains and increase in ratio of kappa/lambda. However, patient states he does not see any associate software application engineer. We will refer him to our associate software application engineer. He is willing to go. Follow-up in about 3 months with repeat echocardiogram for LVEF. We will also request outpatient cardiac records. Discussed with significant other. Orders: Orders CA echo transthoracic complete 3 Months I42.9 - Cardiomyopathy, unspecified Referrals Hematology & Oncology Referral R77.9 - Abnormality of plasma protein, unspecified Coding Level of Care Code New Pt Level 4 (00035) Diagnoses Cardiomyopathy I42.9 Atherosclerotic cardiovascular disease I25.10 CPT Codes EKG - CPT: 32064-[id number], Complete ([id number])
== END 2023-11-13 09:06 | disposition home or self-care (01) ==
PROVIDERS: PCP Internal Medicine; Visit Provider Internal Medicine
DX: I42.9 Cardiomyopathy, unspecified (principal); I25.10 Atherosclerotic heart disease of native coronary artery without angina pectoris
CPT/HCPCS: 93010; 99204

== ENCOUNTER → 2023-11-13 08:27 | Outpatient (BNVA) | payer MEDICARE, MEDICAID, SELFPAY | PROVIDERS: PCP Internal Medicine; Visit Provider Internal Medicine | DX: I42.9 Cardiomyopathy, unspecified (principal); I25.10 Atherosclerotic heart disease of native coronary artery without angina pectoris; R94.31 Abnormal electrocardiogram [ECG] [EKG] | CPT/HCPCS: 93005; 99202 ==

== ENCOUNTER 2023-11-22 10:14 | Day surgery (SDC) | payer MEDICARE, MEDICAID, SELFPAY ==
[2023-11-21 07:49] VITALS: BMI 33.5
--- NOTE | 2023-11-21 12:03 | P.CONAN_ITS ---
Documented by User: Maylin Todd NP 11/21/23 12:06 HPI - Anesthesia Eval Consult details Narrative: 58yo M for Upper Endoscopy with Dilitation St[place] [facility] [place] [facility] Active Problems Active Problems: All Active Problems Atherosclerotic cardiovascular disease (Acute) BPH with elevated PSA (Acute) BPH loc w urin obs/LUTS (Acute) High prostate specific antigen (PSA) (Acute) Trigger thumb of right hand (Acute) Trigger little finger of right hand (Acute) Trigger index finger of right hand (Acute) Left sided abdominal pain (Acute) Cardiomyopathy (Acute) Renal cyst (Acute) Osteoarthritis of right knee (Acute) Osteoarthritis of right foot (Acute) History of esophageal dilatation (Acute) GERD (gastroesophageal reflux disease) (Acute) Dysphagia (Acute) HTN (hypertension) (Acute) Bleeding hemorrhoids (Acute) Diabetes mellitus (Acute) Asthma (Acute) Past Medical History Medical History (Updated 11/21/23 @ 07:48 by Ann Jordan RN) Diverticulosis Osteoarthritis IBS (irritable bowel syndrome) Hyperlipidemia CAD (coronary artery disease) Nonischemic cardiomyopathy CHF (congestive heart failure) Sleep apnea Obesity (BMI 30.0-34.9) Left flank discomfort Upper abdominal pain GERD (gastroesophageal reflux disease) Elevated cholesterol HTN (hypertension) Constipation by delayed colonic transit Bleeding hemorrhoids Diabetes mellitus Asthma Family History Family History Mother History of colon cancer Brother History of liver cancer Maternal Aunt History of colon cancer Father No problems noted. Family history of problems with anesthesia: No Surgical History Surgical History H/O foot surgery History of esophagogastroduodenoscopy (EGD) History of tonsillectomy History of sinus surgery History of neck surgery History of carpal tunnel release History of release of tendon History of umbilical hernia repair History of colonoscopy History of Problems with Anesthesia: No Social History Social History Household Members: None Are you a primary skin care consultant to a significant other at home: No Do you presently have visiting nurse or other home services: No Alcohol intake: never Patient Tobacco Use Status: Former Tobacco user Tobacco use type: Cigarette Are you DNR?: No Advance Directives: No Advance Directives Information Provided: Yes Nutrition Risks: No Nutritional Risk Current occupational status: unemployed and disabled 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 Meds Allergies Allergy/AdvReac Type Severity Reaction Status Date / Time Penicillins [PENICILLINS] Allergy Unknown RASH Verified 10/10/23 08:03 lactose AdvReac Intermediate Abdominal Uncoded 10/10/23 08:03 Pain Home Medications ?Medication ?Instructions ?Recorded ?Confirmed ?Last Taken ?Type aspirin 81 mg chewable tablet 81 mg PO DAILY 02/19/20 11/13/23 12/18/22 History (Aspirin Childrens) methadone 10 mg tablet 10 mg PO TID PRN Pain 02/19/20 11/13/23 12/26/22 History montelukast 10 mg tablet 10 mg PO DAILY 02/19/20 11/13/23 Unknown History (Singulair) duloxetine 60 mg capsule,delayed 60 mg PO DAILY 09/10/20 11/13/23 Unknown History release zolpidem 10 mg tablet 10 mg PO BEDTIME PRN insomnia 08/12/21 11/13/23 Unknown History albuterol sulfate 90 mcg/actuation 2 puff inhalation Q4H PRN Wheezing 10/27/21 11/13/23 Unknown History aerosol inhaler alprazolam 2 mg tablet 1 tab PO BID PRN anxiety 10/27/21 11/13/23 Unknown History latanoprost 0.005 % eye drops 1 drp ophthalmic (eye) BEDTIME 10/27/21 11/13/23 Unknown History multivitamin with folic acid 400 1 tab PO DAILY 10/27/21 11/13/23 Unknown History mcg tablet (Tab-A-Kelsie) naloxone 4 mg/actuation nasal 1 spray intranasal 10/27/21 11/13/23 Unknown History spray (Narcan) blood sugar diagnostic (FreeStyle #10 ea 07/10/22 11/13/23 Unknown History Lite Strips) magnesium oxide 400 mg (241.3 mg 400 mg PO DAILY 07/10/22 11/13/23 Unknown History magnesium) tablet metformin 750 mg tablet,extended 750 mg PO DAILY 07/10/22 11/13/23 Unknown History release 24 hr pantoprazole 40 mg tablet,delayed 40 mg PO BID 07/10/22 11/13/23 Unknown History release pen needle, diabetic 33 gauge x #100 ea 07/10/22 11/13/23 Unknown History 04/19 (Comfort EZ Pen [place]) testosterone enanthate 200 mg/mL 150 mg IM Q2W 07/10/22 11/13/23 Unknown History intramuscular oil tizanidine 4 mg tablet 4 mg PO TID PRN Pain 07/10/22 11/13/23 Unknown History bupropion HCl 300 mg 24 hr tablet, 300 mg PO DAILY 12/11/22 11/13/23 Unknown History extended release fluticasone propionate 110 2 puff inhalation BID 12/11/22 11/13/23 Unknown History mcg/actuation HFA aerosol inhaler (Flovent HFA) linaclotide 290 mcg capsule 290 mcg PO DAILY PRN Constipation 12/11/22 11/13/23 Unknown History (Linzess) pen needle, diabetic 31 gauge x #1,200 ea 12/11/22 11/13/23 Unknown History 08/29 (UltiCare Pen Needle) levocetirizine 5 mg tablet 5 mg PO DAILY 01/25/23 11/13/23 Unknown History spironolactone 25 mg tablet 25 mg PO DAILY 01/25/23 11/13/23 Unknown History carvedilol 6.25 mg tablet 6.25 mg PO BID 04/11/23 11/13/23 Unknown History sacubitril 49 mg-valsartan 51 mg 1 tab PO BID 04/11/23 11/13/23 Unknown History tablet (Entresto) brimonidine 0.15 % eye drops 1 drp ophthalmic (eye) Q8H 05/08/23 11/13/23 Unknown History cholecalciferol (vitamin D3) 25 25 mcg PO DAILY 05/08/23 11/13/23 Unknown History mcg (1,000 unit) capsule insulin lispro 100 unit/mL 1 sliding scale dose subcut 05/08/23 11/13/23 Unknown History subcutaneous pen USEASDIRECTD ketotifen fumarate 0.025 % (0.035 1 drp ophthalmic (eye) BID 05/08/23 11/13/23 Unknown History %) eye drops metoclopramide HCl 10 mg tablet 10 mg PO TID 05/08/23 11/13/23 Unknown History prazosin 1 mg capsule 2 mg PO BEDTIME 05/08/23 11/13/23 Unknown History insulin glargine U-300 conc 300 70 unit subcut DAILY 08/14/23 11/13/23 Unknown History unit/mL (3 mL) subcutaneous pen (Toujeo Max U-300 SoloStar) tirzepatide 7.5 mg/0.5 mL 10 mg subcut QWEEK 08/14/23 11/13/23 Unknown History subcutaneous pen injector (Mounjaro) atorvastatin 40 mg tablet (Lipitor) 80 mg PO BEDTIME 11/13/23 11/13/23 Unknown History cyclobenzaprine 5 mg tablet 10 mg PO 11/13/23 11/13/23 Unknown History Exam Height,Weight and Vital Signs: Height 6 ft 2 in Weight 118.388 kg Pertinent Lab Results Pertinent Lab Results: Laboratory Tests 02/02/23 08/07/23 09:14 10:38 WBC 8.7 Hgb 15.0 Hct 45.0 Plt Count 221 Sodium 141 Potassium 4.2 Chloride 107 Carbon Dioxide 26 BUN 15 Creatinine 0.91 Narrative Narrative: EKG 11/13/23 SR with PVCs Nonspecific T wave abn Per 10/2023 cardiology office visit note: Coronary CT from 06/2023-minimal stenosis in the ostial, proximal LAD, proximal circumflex, distal circumflex, proximal RCA with short segment of calcified plaque. Dilated main pulmonary artery up to 3.2 cm, possible pulmonary hypertension in setting of DHARA. Cardiac MRI 02/2023 suggestive nonischemic cardiomyopathy. Study limited due to motion artifact/arrhythmia. Mildly diminished LVEF at 47%. Mild wall thickening, greatest in the basal to mid septum. Late gadolinium enhancement with mildly increased mid wall signal in the basal to mid inferolateral wall and possibly the basal septum, possible infiltrative disease. Myocarditis not excl uded. No evidence of infarct. Normal RV size and function. Overall, he has got mild coronary disease mild cardiomyopathy. Assessment and Plan Assessment Anesthesia Assessment: Chart Reviewed Final Anesthetic Review Family History of Problems with Anesthesia: No History of Problems with Anesthesia: No Documented by User: Taqueria Mills MD 11/22/23 10:47 [facility] Past Medical History Medical History (Updated 11/21/23 @ 07:48 by Ann Jordan RN) Diverticulosis Osteoarthritis IBS (irritable bowel syndrome) Hyperlipidemia CAD (coronary artery disease) Nonischemic cardiomyopathy CHF (congestive heart failure) Sleep apnea Obesity (BMI 30.0-34.9) Left flank discomfort Upper abdominal pain GERD (gastroesophageal reflux disease) Elevated cholesterol HTN (hypertension) Constipation by delayed colonic transit Bleeding hemorrhoids Diabetes mellitus Asthma Family History Family History Mother History of colon cancer Brother History of liver cancer Maternal Aunt History of colon cancer Father No problems noted. Surgical History Surgical History H/O foot surgery History of esophagogastroduodenoscopy (EGD) History of tonsillectomy History of sinus surgery History of neck surgery History of carpal tunnel release History of release of tendon History of umbilical hernia repair History of colonoscopy Social History Social History Household Members: None Are you a primary skin care consultant to a significant other at home: No Do you presently have visiting nurse or other home services: No Alcohol intake: never Patient Tobacco Use Status: Former Tobacco user Tobacco use type: Cigarette Are you DNR?: No Advance Directives: No Advance Directives Information Provided: Yes Nutrition Risks: No Nutritional Risk Current occupational status: unemployed and disabled 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 Meds Allergies Allergy/AdvReac Type Severity Reaction Status Date / Time Penicillins [PENICILLINS] Allergy Unknown RASH Verified 10/10/23 08:03 lactose AdvReac Intermediate Abdominal Uncoded 10/10/23 08:03 Pain Home Medications ?Medication ?Instructions ?Recorded ?Confirmed ?Last Taken ?Type aspirin 81 mg chewable tablet 81 mg PO DAILY 02/19/20 11/13/23 12/18/22 History (Aspirin Childrens) methadone 10 mg tablet 10 mg PO TID PRN Pain 02/19/20 11/13/23 12/26/22 History montelukast 10 mg tablet 10 mg PO DAILY 02/19/20 11/13/23 Unknown History (Singulair) duloxetine 60 mg capsule,delayed 60 mg PO DAILY 09/10/20 11/13/23 Unknown History release zolpidem 10 mg tablet 10 mg PO BEDTIME PRN insomnia 08/12/21 11/13/23 Unknown History albuterol sulfate 90 mcg/actuation 2 puff inhalation Q4H PRN Wheezing 10/27/21 11/13/23 Unknown History aerosol inhaler alprazolam 2 mg tablet 1 tab PO BID PRN anxiety 10/27/21 11/13/23 Unknown History latanoprost 0.005 % eye drops 1 drp ophthalmic (eye) BEDTIME 10/27/21 11/13/23 Unknown History multivitamin with folic acid 400 1 tab PO DAILY 10/27/21 11/13/23 Unknown History mcg tablet (Tab-A-Kelsie) naloxone 4 mg/actuation nasal 1 spray intranasal 10/27/21 11/13/23 Unknown History spray (Narcan) blood sugar diagnostic (FreeStyle #10 ea 07/10/22 11/13/23 Unknown History Lite Strips) magnesium oxide 400 mg (241.3 mg 400 mg PO DAILY 07/10/22 11/13/23 Unknown History magnesium) tablet metformin 750 mg tablet,extended 750 mg PO DAILY 07/10/22 11/13/23 Unknown History release 24 hr pantoprazole 40 mg tablet,delayed 40 mg PO BID 07/10/22 11/13/23 Unknown History release pen needle, diabetic 33 gauge x #100 ea 07/10/22 11/13/23 Unknown History 1/ (Comfort EZ Pen [place]) testosterone enanthate 200 mg/mL 150 mg IM Q2W 07/10/22 11/13/23 Unknown History intramuscular oil tizanidine 4 mg tablet 4 mg PO TID PRN Pain 07/10/22 11/13/23 Unknown History bupropion HCl 300 mg 24 hr tablet, 300 mg PO DAILY 12/11/22 11/13/23 Unknown History extended release fluticasone propionate 110 2 puff inhalation BID 12/11/22 11/13/23 Unknown History mcg/actuation HFA aerosol inhaler (Flovent HFA) linaclotide 290 mcg capsule 290 mcg PO DAILY PRN Constipation 12/11/22 11/13/23 Unknown History (Linzess) pen needle, diabetic 31 gauge x #1,200 ea 12/11/22 11/13/23 Unknown History / (UltiCare Pen Needle) levocetirizine 5 mg tablet 5 mg PO DAILY 01/25/23 11/13/23 Unknown History spironolactone 25 mg tablet 25 mg PO DAILY 01/25/23 11/13/23 Unknown History carvedilol 6.25 mg tablet 6.25 mg PO BID 04/11/23 11/13/23 Unknown History sacubitril 49 mg-valsartan 51 mg 1 tab PO BID 04/11/23 11/13/23 Unknown History tablet (Entresto) brimonidine 0.15 % eye drops 1 drp ophthalmic (eye) Q8H 05/08/23 11/13/23 Unknown History cholecalciferol (vitamin D3) 25 25 mcg PO DAILY 05/08/23 11/13/23 Unknown History mcg (1,000 unit) capsule insulin lispro 100 unit/mL 1 sliding scale dose subcut 05/08/23 11/13/23 Unknown History subcutaneous pen USEASDIRECTD ketotifen fumarate 0.025 % (0.035 1 drp ophthalmic (eye) BID 05/08/23 11/13/23 Unknown History %) eye drops metoclopramide HCl 10 mg tablet 10 mg PO TID 05/08/23 11/13/23 Unknown History prazosin 1 mg capsule 2 mg PO BEDTIME 05/08/23 11/13/23 Unknown History insulin glargine U-300 conc 300 70 unit subcut DAILY 08/14/23 11/13/23 Unknown History unit/mL (3 mL) subcutaneous pen (Toujeo Max U-300 SoloStar) tirzepatide 7.5 mg/0.5 mL 10 mg subcut QWEEK 08/14/23 11/13/23 Unknown History subcutaneous pen injector (Tamela) atorvastatin 40 mg tablet (Lipitor) 80 mg PO BEDTIME 11/13/23 11/13/23 Unknown History cyclobenzaprine 5 mg tablet 10 mg PO 11/13/23 11/13/23 Unknown History Exam Airway Mallampati Class: III TM Dist: >3cm Neck ROM: Full Assessment and Plan Assessment Anesthesia Assessment: Anesthesia Plan Discussed Final Anesthetic Review NPO: Yes ASA Class: III Final Preanesthetic Review: No Changes in Pt Med Stat, Meds/Allgs Chart Reviewed, Consent Obtained/Reviewed and Anes Risks/Benef Reviewed Patient Risk: Intermediate Procedure Risk: Low Anesthetic Plan Anesthetic Plan: TIVA Disposition: Standard PACU
--- OUTSIDE RECORDS SUMMARY | 2023-11-22 10:20 | XMS_ITS | Continuity of Care Document ---
Author Organization [facility] Address [address] [place] [id number]- Care Team Providers Care Buyer Intern Name Role Phone Vamshi Man MD Primary Care Physician [place] [facility] [place] 07/11/23 - 11/08/[address] [address]- Attending Physician: Sarah Arauz MD Admitting Physician: [...] Recorded Vaccine Date Status Refusal Reason SARS-CoV-2(COVID-19)mRNA-LNP vac([id number]) 01/30/23 Given influenza virus vaccine, inactivated 01/05/23 [...] influenza virus vaccine, inactivated 03/19/06 Give n [id number] 12y+ bivalent booster vax 02/16/22 Given pneumococcal 20-valent conjugate vaccine 02/16/22 Given Influenza Virus Vaccine (oldterm) 9 01/27/22 Recor ded Influenza Virus Vaccine (oldterm) 01/26/21 Recorde d SARS-CoV-2 mRNA ([id number]) vax 11/11/21 Given SARS-CoV-2 (COVID-19) mRNA BNT-162b2 [...] PFEIFFER MD 4Result Comment: [01/15/2013] ordered by Vamhsi Man MD 5Admin Note: VIS 11/08/10 GIVEN 6Admin Note: VIS 11/08/2010 Fluzone given 7Admin Note: ADMINISTERED BY R.N. 8Admin Note: sanofi-pasteur 9Result Comment: pharmacy. Date approximate. Per pt recall. Non in ExtRx or MIIS 10Result Comment: Patient showed RN picture of immunization card 11Location History: PH 12Location History: Elissa Bertrand 13Result Comment: [11/27/2017] REceived at [facility] on [facility] [place] [place]; ordered by Dr Michael Oliveira 14Location [...] 11 Refills, Maintenance, 02/08/23 10:21:00 EDT, Powder, [facility], replaces Flovent due to insurance coverage, 188, cm, 01/30/23 13:26:00 EDT, Height, 126, kg, 01/30/23 13:26:00 EDT,... Start Date: 02/08/23 Status: Ordered Aspirin Low Dose 81 mg oral delayed release tablet 1 tablet, By Mouth, Daily, # 90 tablet, 4 Refills, Maintenance, 03/01/23 17:49:00 EST, [facility], 188, cm, 01/30/23 13:26:00 EDT, Height, 126, kg, 01/30/23 13:26:00 EDT, Dry Weight Start Date: 03/01/23 Status: Ordered atorvastatin 40 mg oral tablet 1 tablet, By Mouth, Daily, # 90 tablet, 1 Refills, Maintenance, 07/25/23 20:12:00 EDT, [facility], 188, cm, 07/05/23 11:09:00 EDT, Height, [...] 2 Refills, Maintenance, 04/27/22 23:43:00 EST, Cream, [facility], 1 application Topically 2 times a day,Instr:apply to penile rash, 188, cm, 04/27/22 13:44:00 EST, Heigh... Start Date: 04/27/22 Status: Ordered diazepam 10 mg oral tablet See Instructions, PRN, 1 tablet By Mouth 1 hr before MRI, # 1 tablet, Refills 2, Tot. Refills 2, Maintenance, as needed for anxiety, 01/30/23 15:02:00 EDT, Instructions Replace Required Details, Route to Pharmacy Electronically, [facility],... Start Date: 01/30/23 Status: Ordered diclofenac 1% topical gel = 2 Gm, Topically, 4 times a day, PRN for pain, (swazi) not to exceed: 16 gm/day/joint lower limb8 gm/day/joint of upper limb 32 gm/day may interchange for cream, # 100 Gm, 11 Refills, Maintenance, 04/15/22 13:02:00 EST, Gel, [facility]... Start Date: 04/15/22 Status: Ordered docusate [...] 16 Gm, 11 Refills, Maintenance, 07/09/23 11:37:00EDT, Webb, [facility], Partial fill upon patient request if the prescription is for a schedule II opioid drug., 2 sprays Nares, Both 2 times... Start Date: 07/09/23 Status: Ordered Freestyle Tatyana [place] Freestyle Tatyana [place], See Instructions, # 1 each, Refills 0, [...] days., 08/11/23 11:15:00 EDT, Recently sent to [facility]... Start Date: 08/11/23 Status: [...] 11 Refills, Maintenance, 11/28/21 21:27:00 EDT, Solution, [facility], 188, cm, 11/22/21 16:37:00 EDT, Height, 122.63, kg, 11/22/21 16:37:00 EDT, Dry We... Start Date: 11/28/21 Status: Ordered ipratropium nasal 21 mcg/inh spray 1 sprays = 21 mcg, Nares, Both, Daily at bedtime, # 30 mL, 11 Refills, Acute 10/31/24 9:00:00 EDT, 11/01/23 9:04:00 EDT, [facility], Partial fill upon patient request if the prescription isfor a schedule II opioid drug., 1 sprays Nares, Bot... Start Date: 11/01/23 Stop Date: 10/31/24 Status: Ordered ketotifen 0.025% ophthalmic solution INSTILL [...] Gm, 5 Refills, Maintenance, 12/22/21 7:28:00 EDT, [facility], same Rx was sent 11/11 w/ [...] 3 Refills, Maintenance, 05/07/23 16:31:00 EST, Tablet, [facility], 188, cm, 04/26/23 13:06:00 EST, Height, 126.09, kg, 04/26/23 13:06:00 EST, Dry Weight Start Date: 05/07/23 Status: Ordered metFORMIN 750 mg oral tablet, extended release 1 tablet = 750 mg, By Mouth, Daily, [replaces the metformin 500mg bid], # 90 tablet, 1 Refills, Maintenance, 10/17/23 16:21:00 EDT, ER Tablet, [facility], Partial fill upon patient request if the prescription is for a schedule II opioid drug... Start Date: 10/17/23 Status: Ordered methadone 10 mg oral tablet See Instructions, By mouth. 2 tab in AM, 1.5 midday, 2 in evening;for pain. IDC10: G90.5 CRPS. 28 day supply. [facility]., # 154 tablet, 0 Refills, Maintenance, pain, 10/09/23 21:08:00 EDT,[facility], May partial fill., 0... Start Date: 10/09/23 Status: Ordered methadone 10 mg oral tablet See Instructions, By mouth. 2 tab in AM, 1.5 midday, 2 in evening;for pain. IDC10: G90.5 CRPS. 28 day supply. [facility]., # 154 tablet, 0 Refills, Maintenance, pain, 09/11/23 21:08:00 EDT,[facility], August partial fill., 0... Start Date: 09/11/23 Status: Ordered methadone 10 mg oral tablet See Instructions, By mouth. 2 tab in AM, 1.5 midday, 2 in evening;for pain. IDC10: G90.5 CRPS. 28 day supply. [facility]., # 154 tablet, 0 Refills, Maintenance, pain, 11/06/23 14:08:00 EDT,[facility], May partial fill., 11/06/23... Start Date: 11/06/23 Status: Ordered methadone 10 mg oral tablet See Instructions, By mouth. 2 tab in AM, 1.5 midday, 2 in evening;for pain. IDC10: G90.5 CRPS. 28 day supply. [facility]., # 154 tablet, 0 Refills, Maintenance, pain, 04/24/23 22:44:00 EST,[facility], May partial fill., 188, cm,... Start Date: 04/24/23 Status: Ordered Mounjaro 10 mg/0.5 mL subcutaneous solution = 10 mg, Subcutaneous Infusion, Every 7 days, please interchange with other Rx for 7.5 mg if unavailable., # 4 each, 11 Refills, Maintenance, 07/26/23 14:10:00 EDT, [facility], Partial fillupon patient request if the prescription is for a s... Start Date: 07/26/23 Status: Ordered Mounjaro 7.5 mg/0.5 mL subcutaneous solution = 7.5 mg, Subcutaneous Injection, Every week, rotate injection sites, # 4 each, 5 Refills, Maintenance, 07/07/23 17:04:00 EDT, Solution, [facility], should still have a couple [...] 1 Refills, Soft Stop, 02/16/22 23:38:00 EDT, [facility], 188, cm, 02/16/22 13:07:00 EDT, Height,122.63, kg, 11/22/21 16:37:00 EDT, Dry Weight Start Date: 02/16/22 Status: Ordered ondansetron 4 mg oral tablet Rx by Idalia Sandoval, # 60, Maintenance, 08/11/23 11:48:00 EDT Start Date: 08/11/23 Status: Ordered pantoprazole 40 mg oral delayed release tablet 0 Refills, Maintenance, 02/16/22 23:33:00 EDT Start Date: 02/16/22 Status: Ordered Pen [place], 31 G x 8 mm BD Ultra [...] 02/18/23 19:20:00 EST, Route to Pharmacy Electronically, [facility], 188, cm, 01/30/23 13:26:00 EDT, Height, [...] tablet, 5 Refills, Maintenance, 07/09/23 11:09:00 EDT, [facility], 30, 1 tablet By Mouth Daily, 188, cm, 07/05/23 11:09:00 EDT, Height, 126.09, kg, 04/26/23 13:06:00 EST, Dry Weight Start Date: 07/09/23 Status: Ordered tamsulosin 0.4 mg oral capsule 0.8 mg, 2, capsule, By Mouth, Daily, dose increase, # 180 capsule, Refills 11, Tot. Refills 11, Maintenance, 07/26/23 14:15:00 EDT, Route to Pharmacy Electronically, [facility], 188, cm, 07/26/23 13:30:00 EDT, Height, 121.81, kg, 07/26/23 13... Start Date: 07/26/23 Status: Ordered Test Strips See Instructions, # 100 each, Refills 11, Tot. Refills 11, Maintenance, Freestyle Lite glucometer test strips. Dx Type 2 diabetes mellitus on insulin (E11, Z79.4). Test 3x/day if symptoms, or Tatyana sensor concerns., 11/08/23 11:26:00 EDT, Compound, 18... Start Date: 11/08/23 Status: Ordered Test Strips See Instructions, # 100 each, Refills 11, Tot. Refills 11, Maintenance, Precision Ganga strips (for Freestyle Tatyana glucometer). Type 2 diabetes mellitus on insulin (E11, Z79.4). Test 2-4x/day if symptoms, or sensor concerns., 10/17/23 20:28:00 EDT, Com... Start Date: 10/17/23 Status: Ordered testosterone enanthate 200 mg/mL intramuscular solution 0.75 mL, Intramuscular, Every 14 days, IM or subcutaneous. [facility]., # 2 mL, 5 Refills, Maintenance, 08/11/23 11:20:00 EDT, [facility], Last sent to [facility]. Sending now to [facility] due to pt request msg wale... Start Date: 08/11/23 Status: Ordered tiZANidine 4 mg oral tablet 4 mg, 1, tablet, By Mouth, 3 times a day, PRN, # 90 tablet, Refills 11, Tot. Refills 11, Maintenance, as needed for muscle spasm, 09/10/23 13:47:00 EDT, Route to Pharmacy Electronically, [facility], 188, cm, 07/26/23 17:37:00 EDT, Height, 12... Start Date: 09/10/23 Status: Ordered Toujeo Max SoloStar 300 units/mL subcutaneous solution = 70 units, Subcutaneous Injection, Daily, decrease frin 90u, # 12 mL, 11 Refills, Maintenance, 07/26/23 14:19:00 EDT, Solution, [facility], replaces Lantus due to insurance coverage, 188, cm, 07/26/23 13:30:00 EDT, Height, 121.81, kg, 07/25... Start Date: 07/26/23 Status: Ordered Tylenol Extra Strength 500 mg oral tablet 2 tablet = 1,000 mg, By Mouth, 3 times a day, # 30 tablet, 11 Refills, Maintenance, 03/24/21 21:00:00 EST, [facility], 188, cm, 03/22/21 14:17:00 EST, Height, 125.2, kg, 06/20/20 14:28:00 EST, Dry Weight Start Date: 03/24/21 Status: Ordered Vitamin D3 1000 intl units oral tablet 1 tablet, By Mouth, Daily, # 90 tablet, 4 Refills, Maintenance, 04/01/23 22:28:00 EST, [facility], 188, cm, 01/30/23 13:26:00 EDT, Height, [...] Team Personnel Name: Shoaib An RN Position: [facility] RN Supv Member Role: Primary Care Nurse Name: Vamshi Man MD Position: [facility] Physician - Primary Care Member Role: PCP Address: Address: [address] [place] [address]- Name: Luz Potter Position: [facility] Outreach Member Role: Lifetime Consulting Physician Name: Miki Rodriguez MD Position: [facility] Renal MD Member Role: Lifetime Consulting Physician Address: Address: [address] [facility] [address] [facility] [place] [address]- Care Team Related Persons Name: BRANDON MTZ Address: home [address] [facility] [address] [place] [address] Name: BRANDON BARKER Address: home [address] [place] [address] Name: ROSALINDA BERTRAND
--- OUTSIDE RECORDS SUMMARY | 2023-11-22 10:21 | XMS_ITS | Continuity of Care Document ---
Author Organization [facility] Address [address] [place] [id number]- Care Team Providers Care Java Systems Analyst Name Role Phone Vamshi Man MD Primary Care Physician [phone] [facility]counter [facility] Date(s): 09/12/23 - 10/12/23 [facility]/[address] [address]- Allergies, Adverse Reactions, Alerts Substance Reaction Severity Status penicillin 1 rash Resolved Other Food Allergy fresh peaches - itch y mouth, throat and lips swell Active penicillins Active Latex RASH Active 1rash per mother as child. Did take a penicillin for treatment of H pylori per pt w/o problem. Immunizations Given and Recorded Vaccine Date Status Refusal Reason SARS-CoV-2(COVID-19)mRNA-LNP vac([id number]) 01/30/23 Given influenza virus vaccine, inactivated 01/05/23 [...] influenza virus vaccine, inactivated 03/19/06 Give n [id number] 12y+ bivalent booster vax 02/16/22 Given pneumococcal 20-valent conjugate vaccine 02/16/22 Given Influenza Virus Vaccine (oldterm) 9 01/27/22 Recor ded Influenza Virus Vaccine (oldterm) 01/26/21 Recorde d SARS-CoV-2 mRNA ([id number]) vax 11/11/21 Given SARS-CoV-2 (COVID-19) mRNA BNT-162b2 [...] [facility] 3Result Comment: [01/01/2014] ORDERED BY PRISCILLA PFEIFFRE MD 4Result Comment: [01/15/2013] ordered by Vamshi [...] [facility] [place], [place]; ordered by Dr Michael Oliveira 14Location [...] 11 Refills, Maintenance, 02/08/23 10:21:00 EDT, Powder, [facility], replaces Flovent due to insurance coverage, 188, cm, 01/30/23 13:26:00 EDT, Height, 126, kg, 01/30/23 13:26:00 EDT,... Start Date: 02/08/23 Status: Ordered Aspirin Low Dose 81 mg oral delayed release tablet 1 tablet, By Mouth, Daily, # 90 tablet, 4 Refills, Maintenance, 03/01/23 17:49:00 EST, [facility], 188, cm, 01/30/23 13:26:00 EDT, Height, 126, kg, 01/30/23 13:26:00 EDT, Dry Weight Start Date: 03/01/23 Status: Ordered atorvastatin 40 mg oral tablet 1 tablet, By Mouth, Daily, # 90 tablet, 1 Refills, Maintenance, 07/25/23 20:12:00 EDT, [facility], 188, cm, 07/05/23 11:09:00 EDT, [...] 2 Refills, Maintenance, 04/27/22 23:43:00 EST, Cream, [facility], 1 application Topically 2 times a day,Instr:apply to penile rash, 188, cm, 04/27/22 13:44:00 EST, Heigh... Start Date: 04/27/22 Status: Ordered diazepam 10 mg oral tablet See Instructions, PRN, 1 tablet By Mouth 1 hr before MRI, # 1 tablet, Refills 2, Tot. Refills 2, Maintenance, as needed for anxiety, 01/30/23 15:02:00 EDT, Instructions Replace Required Details, Route to Pharmacy Electronically, [facility],... Start Date: 01/30/23 Status: Ordered diclofenac 1% topical gel = 2 Gm, Topically, 4 times a day, PRN for pain, (swedish) not to exceed: 16 gm/day/joint lower limb8 gm/day/joint of upper limb 32 gm/day may interchange for cream, # 100 Gm, 11 Refills, Maintenance, 04/15/22 13:02:00 EST, Gel, [facility]... Start Date: 04/15/22 Status: Ordered docusate [...] 16 Gm, 11 Refills, Maintenance, 07/09/23 11:37:00EDT, [place], [facility], Partial fill upon patient request if the prescription is for a schedule II opioid drug., 2 sprays Nares, Both 2 times... Start Date: 07/09/23 Status: Ordered Freestyle Tatyana [place] Freestyle Tatyana [place], See Instructions, # 1 each, Refills 0, [...] days., 08/11/23 11:15:00 EDT, Recently sent to [facility]... Start Date: 08/11/23 [...] 11 Refills, Maintenance, 11/28/21 21:27:00 EDT, Solution, [facility], 188, cm, 11/22/21 16:37:00 EDT, Height, [...] Gm, 5 Refills, Maintenance, 12/22/21 7:28:00 EDT, [facility], same Rx was sent 11/11 w/ [...] 3 Refills, Maintenance, 05/07/23 16:31:00 EST, Tablet, [facility], 188, cm, 04/26/23 13:06:00 EST, Height, 126.09, kg, 04/26/23 13:06:00 EST, Dry Weight Start Date: 05/07/23 Status: Ordered metFORMIN 750 mg oral tablet, extended release 1 tablet = 750 mg, By Mouth, Daily, [replaces the metformin 500mg bid], # 30 tablet, 5 Refills, Maintenance, 05/15/23 8:10:00 EST, ER Tablet, [facility], Partial fill upon patient request if the prescription is for a schedule II opioid drug.... Start Date: 05/15/23 Status: Ordered methadone 10 mg oral tablet See Instructions, By mouth. 2 tab in AM, 1.5 midday, 2 in evening;for pain. IDC10: G90.5 CRPS. 28 day supply. [facility]., # 154 tablet, 0 Refills, Maintenance, pain, 10/09/23 21:08:00 EDT,[facility], May partial fill., 0... Start Date: 10/09/23 Status: Ordered methadone 10 mg oral tablet See Instructions, By mouth. 2 tab in AM, 1.5 midday, 2 in evening;for pain. IDC10: G90.5 CRPS. 28 day supply. [facility]., # 154 tablet, 0 Refills, Maintenance, pain, 09/11/23 21:08:00 EDT,[facility], May partial fill., 0... Start Date: 09/11/23 Status: Ordered methadone 10 mg oral tablet See Instructions, By mouth. 2 tab in AM, 1.5 midday, 2 in evening;for pain. IDC10: G90.5 CRPS. 28 day supply. [facility]., # 154 tablet, 0 Refills, Maintenance, pain, 08/14/23 21:08:00 EDT,[facility], May partial fill., 0... Start Date: 08/14/23 Status: Ordered methadone 10 mg oral tablet See Instructions, By mouth. 2 tab in AM, 1.5 midday, 2 in evening;for pain. IDC10: G90.5 CRPS. 28 day supply. [facility]., # 154 tablet, 0 Refills, Maintenance, pain, 04/24/23 22:44:00 EST,[facility], May partial fill., 188, cm,... Start Date: 04/24/23 Status: Ordered Mounjaro 10 mg/0.5 mL subcutaneous solution = 10 mg, Subcutaneous Infusion, Every 7 days, please interchange with other Rx for 7.5 mg if unavailable., # 4 each, 11 Refills, Maintenance, 07/26/23 14:10:00 EDT, [facility], Partial fillupon patient request if the prescription is for a s... Start Date: 07/26/23 Status: Ordered Mounjaro 7.5 mg/0.5 mL subcutaneous solution = 7.5 mg, Subcutaneous Injection, Every week, rotate injection sites, # 4 each, 5 Refills, Maintenance, 07/07/23 17:04:00 EDT, Solution, [facility], should still have a couple [...] EDT Start Date: 02/16/22 Status: Ordered Pen [place], 31 G x 8 mm BD Ultra [...] 02/18/23 19:20:00 EST, Route to Pharmacy Electronically, [facility], 188, cm, 01/30/23 13:26:00 EDT, Height, [...] tablet, 5 Refills, Maintenance, 07/09/23 11:09:00 EDT, [facility], 30, 1 tablet By Mouth Daily, 188, cm, 07/05/23 11:09:00 EDT, Height, 126.09, kg, 04/26/23 13:06:00 EST, Dry Weight Start Date: 07/09/23 Status: Ordered tamsulosin 0.4 mg oral capsule 0.8 mg, 2, capsule, By Mouth, Daily, dose increase, # 180 capsule, Refills 11, Tot. Refills 11, Maintenance, 07/26/23 14:15:00 EDT, Route to Pharmacy Electronically, [facility], 188, cm, 07/26/23 13:30:00 EDT, Height, 121.81, kg, 07/26/23 13... Start Date: 07/26/23 Status: Ordered Test Strips See Instructions, # 100 each, Refills 5, Tot. Refills 5, Maintenance, Precision Ganga strips (for Freestyle Tatyana glucometer). Type 2 diabetes mellitus on insulin (E11, Z79.4). Test 2-4x/day if symptoms, or sensor concerns., 02/08/23 10:36:00 EDT, [facility]... Start Date: 02/08/23 Status: Ordered Test Strips [...] Intramuscular, Every 14 days, IM or subcutaneous. [facility]., # 2 mL, 5 Refills, Maintenance, 08/11/23 11:20:00 EDT, [facility], Last sent to [facility]. Sending now to [facility] due to pt request msg [email or web address]... Start Date: 08/11/23 Status: Ordered tiZANidine 4 mg oral tablet 4 mg, 1, tablet, By Mouth, 3 times a day, PRN, # 90 tablet, Refills 11, Tot. Refills 11, Maintenance, as needed for muscle spasm, 09/10/23 13:47:00 EDT, Route to Pharmacy Electronically, [facility], 188, cm, 07/26/23 17:37:00 EDT, Height, 12... Start Date: 09/10/23 Status: Ordered Toujeo Max SoloStar 300 units/mL subcutaneous solution = 70 units, Subcutaneous Injection, Daily, decrease frin 90u, # 12 mL, 11 Refills, Maintenance, 07/26/23 14:19:00 EDT, Solution, [facility], replaces Lantus due to insurance coverage, 188, cm, 07/26/23 13:30:00 EDT, Height, 121.81, kg, 07/25... Start Date: 07/26/23 Status: Ordered Tylenol Extra Strength 500 mg oral tablet 2 tablet = 1,000 mg, By Mouth, 3 times a day, # 30 tablet, 11 Refills, Maintenance, 03/24/21 21:00:00 EST, [facility], 188, cm, 03/22/21 14:17:00 EST, Height, 125.2, kg, 06/20/20 14:28:00 EST, Dry Weight Start Date: 03/24/21 Status: Ordered Vitamin D3 1000 intl units oral tablet 1 tablet, By Mouth, Daily, # 90 tablet, 4 Refills, Maintenance, 04/01/23 22:28:00 EST, [facility], 188, cm, 01/30/23 13:26:00 EDT, [...] ? chr regional pain syndrome 4s/p Modified [place] procedure, repair of conjoined tendon of extensor [...] Team Personnel Name: Shoaib An RN Position: [facility] RN Supv Member Role: Primary Care Nurse Name: Donovan DE LOS SANTOS, Vamshi Oshea Position: [facility] Physician - Primary Care Member Role: PCP Address: Address: [address] [place] [address]- Name: Luz Potter Position: [facility] Outreach Member Role: Lifetime Consulting Physician Name: Miki Rodriguez MD Position: [facility] Renal MD Member Role: Lifetime Consulting Physician Address: Address: [address] [facility] [address] [facility], [place] [address]- Care Team Related Persons Name: BRANDON MTZ Address: home [address] [facility] [address] [place] [address] Name: BRANDON BARKER Address: home [address] [place] [address] Name: ROSALINDA BERTRAND
--- OUTSIDE RECORDS SUMMARY | 2023-11-22 10:22 | XMS_ITS | Continuity of Care Document ---
Author Organization [facility] Address [address] [place] [id number]- Care Team Providers Care Brand Ambassadors Promotional Sales Name Role Phone Vamshi Man MD Primary Care Physician [phone] [facility]counter [facility] Date[facility]s): 10/17/23 - 11/16/23 [facility]/[address] [address]- Allergies, Adverse Reactions, Alerts Substance Reaction Severity Status Other Food Allergy fresh peaches - itch y mouth, throat and lips swell Active penicillin 1 rash Resolved penicillins Active Latex RASH Active 1rash per mother as child. Did take a penicillin for treatment of H pylori per pt w/o problem. Immunizations Given and Recorded Vaccine Date Status Refusal Reason SARS-CoV-2(COVID-19)mRNA-LNP vac([id number]) 01/30/23 Given influenza virus vaccine, inactivated 01/05/23 Ravindra rded influenza virus vaccine, inactivated 01/20/20 Give n influenza virus vaccine, inactivated 01/24/19 Give n influenza virus vaccine, inactivated 01/11/18 Ravindar rded influenza virus vaccine, inactivated 01/10/17 Give [...] influenza virus vaccine, inactivated 03/19/06 Give n [id number] 12y+ bivalent booster vax 02/16/22 Given pneumococcal 20-valent conjugate vaccine 02/16/22 Given Influenza Virus Vaccine (oldterm) 9 01/27/22 Recor ded Influenza Virus Vaccine (oldterm) 01/26/21 Recorde d SARS-CoV-2 mRNA ([id number]) vax 11/11/21 Given SARS-CoV-2 (COVID-19) mRNA BNT-162b2 [...] REceived at [facility] [place], [place]; ordered by Dr Michael Oliveira 14Location [...] 11 Refills, Maintenance, 02/08/23 10:21:00 EDT, Powder, [facility], replaces Flovent due to insurance coverage, 188, cm, 01/30/23 13:26:00 EDT, Height, 126, kg, 01/30/23 13:26:00 EDT,... Start Date: 02/08/23 Status: Ordered Aspirin Low Dose 81 mg oral delayed release tablet 1 tablet, By Mouth, Daily, # 90 tablet, 4 Refills, Maintenance, 03/01/23 17:49:00 EST, [facility], 188, cm, 01/30/23 13:26:00 EDT, Height, 126, kg, 01/30/23 13:26:00 EDT, Dry Weight Start Date: 03/01/23 Status: Ordered atorvastatin 40 mg oral tablet 1 tablet, By Mouth, Daily, # 90 tablet, 1 Refills, Maintenance, 07/25/23 20:12:00 EDT, [facility], 188, cm, 07/05/23 11:09:00 EDT, Height, [...] 2 Refills, Maintenance, 04/27/22 23:43:00 EST, Cream, [facility], 1 application Topically 2 times a day,Instr:apply to penile rash, 188, cm, 04/27/22 13:44:00 EST, Heigh... Start Date: 04/27/22 Status: Ordered diazepam 10 mg oral tablet See Instructions, PRN, 1 tablet By Mouth 1 hr before MRI, # 1 tablet, Refills 2, Tot. Refills 2, Maintenance, as needed for anxiety, 01/30/23 15:02:00 EDT, Instructions Replace Required Details, Route to Pharmacy Electronically, [facility],... Start Date: 01/30/23 Status: Ordered diclofenac 1% topical gel = 2 Gm, Topically, 4 times a day, PRN for pain, (vietnamese) not to exceed: 16 gm/day/joint lower limb8 gm/day/joint of upper limb 32 gm/day may interchange for cream, # 100 Gm, 11 Refills, Maintenance, 04/15/22 13:02:00 EST, Gel, [facility]... Start Date: 04/15/22 Status: Ordered docusate [...] 16 Gm, 11 Refills, Maintenance, 07/09/23 11:37:00EDT, [place], [facility], Partial fill upon patient request if the prescription is for a schedule II opioid drug., 2 sprays Nares, Both 2 times... Start Date: 07/09/23 Status: Ordered Freestyle Tatyana [place] Freestyle Tatyana [place], See Instructions, # 1 each, Refills 0, [...] days., 08/11/23 11:15:00 EDT, Recently sent to [facility]... Start Date: 08/11/23 Status: [...] 11 Refills, Maintenance, 11/28/21 21:27:00 EDT, Solution, [facility], 188, cm, 11/22/21 16:37:00 EDT, Height, 122.63, kg, 11/22/21 16:37:00 EDT, Dry We... Start Date: 11/28/21 Status: Ordered ipratropium nasal 21 mcg/inh spray 1 sprays = 21 mcg, Nares, Both, Daily at bedtime, # 30 mL, 11 Refills, Acute 10/31/24 9:00:00 EDT, 11/01/23 9:04:00 EDT, [facility], Partial fill upon patient request if [...] Gm, 5 Refills, Maintenance, 12/22/21 7:28:00 EDT, [facility], same Rx was sent 11/11 w/ [...] 3 Refills, Maintenance, 05/07/23 16:31:00 EST, Tablet, [facility], 188, cm, 04/26/23 13:06:00 EST, Height, 126.09, kg, 04/26/23 13:06:00 EST, Dry Weight Start Date: 05/07/23 Status: Ordered metFORMIN 750 mg oral tablet, extended release 1 tablet = 750 mg, By Mouth, Daily, [replaces the metformin 500mg bid], # 90 tablet, 1 Refills, Maintenance, 10/17/23 16:21:00 EDT, ER Tablet, [facility], [...] tablet, 0 Refills, Maintenance, pain, 10/09/23 21:08:00 EDT,[facility], May partial fill., 0... Start Date: 10/09/23 Status: Ordered methadone 10 mg oral tablet See Instructions, By mouth. 2 tab in AM, 1.5 midday, 2 in evening;for pain. IDC10: G90.5 CRPS. 28 day supply. [facility]., # 154 tablet, 0 Refills, Maintenance, pain, 09/11/23 21:08:00 EDT,[facility], August partial fill., 0... Start Date: 09/11/23 Status: Ordered methadone 10 mg oral tablet See Instructions, By mouth. 2 tab in AM, 1.5 midday, 2 in evening;for pain. IDC10: G90.5 CRPS. 28 day supply. [facility]., # 154 tablet, 0 Refills, Maintenance, pain, 11/06/23 14:08:00 EDT,[facility], May partial fill., 11/06/23... Start Date: 11/06/23 Status: Ordered methadone 10 mg oral tablet See Instructions, By mouth. 2 tab in AM, 1.5 midday, 2 in evening;for pain. IDC10: G90.5 CRPS. 28 day supply. [facility]., # 154 tablet, 0 Refills, Maintenance, pain, 04/24/23 22:44:00 EST,[facility], May partial fill., 188, cm,... Start Date: 04/24/23 Status: Ordered Mounjaro 10 mg/0.5 mL subcutaneous solution = 10 mg, Subcutaneous Infusion, Every 7 days, please interchange with other Rx for 7.5 mg if unavailable., # 4 each, 11 Refills, Maintenance, 07/26/23 14:10:00 EDT, [facility], Partial fillupon patient request if the prescription is for a s... Start Date: 07/26/23 Status: Ordered Mounjaro 7.5 mg/0.5 mL subcutaneous solution = 7.5 mg, Subcutaneous Injection, Every week, rotate injection sites, # 4 each, 5 Refills, Maintenance, 07/07/23 17:04:00 EDT, Solution, [facility], should still have a couple months [...] 1 Refills, Soft Stop, 02/16/22 23:38:00 EDT, [facility], 188, cm, 02/16/22 13:07:00 EDT, Height,122.63, kg, 11/22/21 16:37:00 EDT, Dry Weight Start Date: 02/16/22 Status: Ordered ondansetron 4 mg oral tablet Rx by Idalia Sandoval, # 60, Maintenance, 08/11/23 11:48:00 EDT Start Date: 08/11/23 Status: Ordered pantoprazole 40 mg oral delayed release tablet 0 Refills, Maintenance, 02/16/22 23:33:00 EDT Start Date: 02/16/22 Status: Ordered Pen [place], 31 G x 8 mm BD Ultra [...] 02/18/23 19:20:00 EST, Route to Pharmacy Electronically, [facility], 188, cm, 01/30/23 13:26:00 EDT, Height, [...] tablet, 5 Refills, Maintenance, 07/09/23 11:09:00 EDT, [facility], 30, 1 tablet By Mouth Daily, 188, cm, 07/05/23 11:09:00 EDT, Height, 126.09, kg, 04/26/23 13:06:00 EST, Dry Weight Start Date: 07/09/23 Status: Ordered tamsulosin 0.4 mg oral capsule 0.8 mg, 2, capsule, By Mouth, Daily, dose increase, # 180 capsule, Refills 11, Tot. Refills 11, Maintenance, 07/26/23 14:15:00 EDT, Route to Pharmacy Electronically, [facility], 188, cm, 07/26/23 13:30:00 EDT, Height, [...] Intramuscular, Every 14 days, IM or subcutaneous. [facility]., # 2 mL, 5 Refills, Maintenance, 08/11/23 11:20:00 EDT, [facility], Last sent to [facility]. Sending now to [facility] due to pt request msg [email or web address]... Start Date: 08/11/23 Status: Ordered tiZANidine 4 mg oral tablet 4 mg, 1, tablet, By Mouth, 3 times a day, PRN, # 90 tablet, Refills 11, Tot. Refills 11, Maintenance, as needed for muscle spasm, 09/10/23 13:47:00 EDT, Route to Pharmacy Electronically, [facility], 188, cm, 07/26/23 17:37:00 EDT, Height, 12... Start Date: 09/10/23 Status: Ordered Toujeo Max SoloStar 300 units/mL subcutaneous solution = 70 units, Subcutaneous Injection, Daily, decrease frin 90u, # 12 mL, 11 Refills, Maintenance, 07/26/23 14:19:00 EDT, Solution, [facility], replaces Lantus due to insurance coverage, 188, cm, 07/26/23 13:30:00 EDT, Height, 121.81, kg, 07/25... Start Date: 07/26/23 Status: Ordered Tylenol Extra Strength 500 mg oral tablet 2 tablet = 1,000 mg, By Mouth, 3 times a day, # 30 tablet, 11 Refills, Maintenance, 03/24/21 21:00:00 EST, [facility], 188, cm, 03/22/21 14:17:00 EST, Height, 125.2, kg, 06/20/20 14:28:00 EST, Dry Weight Start Date: 03/24/21 Status: Ordered Vitamin D3 1000 intl units oral tablet 1 tablet, By Mouth, Daily, # 90 tablet, 4 Refills, Maintenance, 04/01/23 22:28:00 EST, [facility], 188, cm, 01/30/23 13:26:00 EDT, Height, [...] Care Nurse Name: Vamshi Man MD Position: [facility] Physician - Primary Care Member Role: PCP Address: Address: [address] [place] [address] Name: Luz Potter Position: [facility] Outreach Member Role: Lifetime Consulting Physician Name: Miki Rodriguez MD Position: [facility] Renal MD Member Role: Lifetime Consulting Physician Address: Address: [address] [facility] [place] [address]- [place] Care Team Related Persons Name: BRANDON MTZ Address: home [address] [facility] [address] [place] [address] Name: BRANDON BARKER Address: home [address] [place] [address] Name: ROSALINDA BERTRAND
--- OUTSIDE RECORDS SUMMARY | 2023-11-22 10:22 | XMS_ITS | Continuity of Care Document ---
Author Organization [facility] Address [address] [place] [id number]- Care Team Providers Care Plate Painter Apprentice Name Role Phone Vamshi Man MD Primary Care Physician [facility]counter [facility] Date(s): 09/11/23 - 10/11/23 [facility]/[address] [address]- Allergies, Adverse Reactions, Alerts Substance Reaction Severity Status penicillin 1 rash Resolved Other Food Allergy fresh peaches - itch y mouth, throat and lips swell Active penicillins Active Latex RASH Active 1rash per mother as child. Did take a penicillin for treatment of H pylori per pt w/o problem. Immunizations Given and Recorded Vaccine Date Status Refusal Reason SARS-CoV-2(COVID-19)mRNA-LNP vac([id number]) 01/30/23 Given influenza virus vaccine, inactivated 01/05/23 [...] influenza virus vaccine, inactivated 03/19/06 Give n [id number] 12y+ bivalent booster vax 02/16/22 Given pneumococcal 20-valent conjugate vaccine 02/16/22 Given Influenza Virus Vaccine (oldterm) 9 01/27/22 Recor ded Influenza Virus Vaccine (oldterm) 01/26/21 Recorde d SARS-CoV-2 mRNA ([id number]) vax 11/11/21 Given SARS-CoV-2 (COVID-19) mRNA BNT-162b2 [...] [11/27/2017] REceived at [facility] [place], [place]; ordered by Dr Michael Oliveira 14Location [...] 11 Refills, Maintenance, 02/08/23 10:21:00 EDT, Powder, [facility], replaces Flovent due to insurance coverage, 188, cm, 01/30/23 13:26:00 EDT, Height, 126, kg, 01/30/23 13:26:00 EDT,... Start Date: 02/08/23 Status: Ordered Aspirin Low Dose 81 mg oral delayed release tablet 1 tablet, By Mouth, Daily, # 90 tablet, 4 Refills, Maintenance, 03/01/23 17:49:00 EST, [facility], 188, cm, 01/30/23 13:26:00 EDT, Height, [...] 2 Refills, Maintenance, 04/27/22 23:43:00 EST, Cream, [facility], 1 application Topically 2 times a day,Instr:apply to penile rash, 188, cm, 04/27/22 13:44:00 EST, Heigh... Start Date: 04/27/22 Status: Ordered diazepam 10 mg oral tablet See Instructions, PRN, 1 tablet By Mouth 1 hr before MRI, # 1 tablet, Refills 2, Tot. Refills 2, Maintenance, as needed for anxiety, 01/30/23 15:02:00 EDT, Instructions Replace Required Details, Route to Pharmacy Electronically, [facility],... Start Date: 01/30/23 Status: Ordered diclofenac 1% topical gel = 2 Gm, Topically, 4 times a day, PRN for pain, (wolof) not to exceed: 16 gm/day/joint lower limb8 gm/day/joint of upper limb 32 gm/day may interchange for cream, # 100 Gm, 11 Refills, Maintenance, 04/15/22 13:02:00 EST, Gel, [facility]... Start Date: 04/15/22 Status: Ordered docusate [...] 16 Gm, 11 Refills, Maintenance, 07/09/23 11:37:00EDT, [place], [facility], Partial fill upon patient request if the prescription is for a schedule II opioid drug., 2 sprays Nares, Both 2 times... Start Date: 07/09/23 Status: Ordered Freestyle Tatyana [place] Freestyle Tatyana [place], See Instructions, # 1 each, Refills [...] days., 08/11/23 11:15:00 EDT, Recently sent to [facility]... Start Date: 08/11/23 Status: [...] 11 Refills, Maintenance, 11/28/21 21:27:00 EDT, Solution, [facility], 188, cm, 11/22/21 16:37:00 EDT, Height, [...] Gm, 5 Refills, Maintenance, 12/22/21 7:28:00 EDT, [facility], same Rx was sent 11/11 w/ [...] tablet, 0 Refills, Maintenance, pain, 09/11/23 21:08:00 EDT,[facility], May partial fill., 0... Start Date: 09/11/23 Status: Ordered methadone 10 mg oral tablet See Instructions, By mouth. 2 tab in AM, 1.5 midday, 2 in evening;for pain. IDC10: G90.5 CRPS. 28 day supply. [facility]., # 154 tablet, 0 Refills, Maintenance, pain, 08/14/23 21:08:00 EDT,[facility], May partial fill., 0... [...] EDT Start Date: 02/16/22 Status: Ordered Pen [place], 31 G x 8 mm BD Ultra [...] 02/18/23 19:20:00 EST, Route to Pharmacy Electronically, [facility], 188, cm, 01/30/23 13:26:00 EDT, Height, [...] tablet, 5 Refills, Maintenance, 07/09/23 11:09:00 EDT, [facility], 30, 1 tablet By Mouth Daily, 188, cm, 07/05/23 11:09:00 EDT, Height, 126.09, kg, 04/26/23 13:06:00 EST, Dry Weight Start Date: 07/09/23 Status: Ordered tamsulosin 0.4 mg oral capsule 0.8 mg, 2, capsule, By Mouth, Daily, dose increase, # 180 capsule, Refills 11, Tot. Refills 11, Maintenance, 07/26/23 14:15:00 EDT, Route to Pharmacy Electronically, [facility], 188, cm, 07/26/23 13:30:00 EDT, Height, 121.81, kg, 07/26/23 13... Start Date: 07/26/23 Status: Ordered Test Strips See Instructions, # 100 each, Refills 5, Tot. Refills 5, Maintenance, Precision Ganga strips (for Freestyle Tatyana glucometer). Type 2 diabetes mellitus on insulin (E11, Z79.4). Test 2-4x/day if symptoms, or sensor concerns., 02/08/23 10:36:00 EDT, [place]... Start Date: 02/08/23 Status: Ordered Test Strips [...] Intramuscular, Every 14 days, IM or subcutaneous. [facility]., # 2 mL, 5 Refills, Maintenance, 08/11/23 11:20:00 EDT, [facility], Last sent to [facility]. Sending now to [facility] due to pt request msg [...] tablet, 11 Refills, Maintenance, 03/24/21 21:00:00 EST, [facility], 188, cm, 03/22/21 14:17:00 EST, Height, [...] chr regional pain syndrome 4s/p Modified [place] procedure, repair of conjoined tendon of extensor [...] Personnel Name: Shoaib An RN Position: [facility] RN Supv Member Role: Primary Care Nurse Name: Donovan DE LOS SANTOS, Vamshi Oshea Position: [facility] Physician - Primary Care Member Role: PCP Address: Address: [address] [place] [address]- Name: Luz Potter Position: [facility] Outreach Member Role: Lifetime Consulting Physician Name: Miki Rodriguez MD Position: [facility] Renal MD Member Role: Lifetime Consulting Physician Address: Address: [address] [facility], [place] [address]- Care Team Related Persons Name: BRANDON MTZ Address: home [address] [place] [address] Name: BRANDON BARKER Address: home [address] [place] [address] Name: ROSALINDA BERRTAND
--- OUTSIDE RECORDS SUMMARY | 2023-11-22 10:23 | XMS_ITS | Continuity of Care Document ---
Author Organization [facility] Address [address] [place] [address]- Care Team Providers Care Nurse Paralegal Name Role Phone Vamshi Man MD Primary Care Physician [phone] Encounter [facility] Date(s): 10/22/23 - 11/21/23 [facility]/[address] [address]- Allergies, Adverse Reactions, Alerts Substance Reaction Severity Status Other Food Allergy fresh peaches - itch y mouth, throat and lips swell Active penicillin 1 rash Resolved penicillins Active Latex RASH Active 1rash per mother as child. Did take a penicillin for treatment of H pylori per pt w/o problem. Immunizations Given and Recorded Vaccine Date Status Refusal Reason SARS-CoV-2(COVID-19)mRNA-LNP vac([id number]) 01/30/23 Given influenza virus vaccine, inactivated 01/05/23 [...] influenza virus vaccine, inactivated 03/19/06 Give n [id number] 12y+ bivalent booster vax 02/16/22 Given pneumococcal 20-valent conjugate vaccine 02/16/22 Given Influenza Virus Vaccine (oldterm) 9 01/27/22 Recor ded Influenza Virus Vaccine (oldterm) 01/26/21 Recorde d SARS-CoV-2 mRNA (tixuclr-owvq-tmtyf) vax 11/11/21 Given SARS-CoV-2 (COVID-19) mRNA BNT-162b2 [...] Elissa Bertrand 13Result Comment: [11/27/2017] REceived at [facility] at [place], [place]; ordered by Dr Michael Oliveira 14Location [...] 11 Refills, Maintenance, 02/08/23 10:21:00 EDT, Powder, [facility], replaces Flovent due to insurance coverage, 188, cm, 01/30/23 13:26:00 EDT, Height, 126, kg, 01/30/23 13:26:00 EDT,... Start Date: 02/08/23 Status: Ordered Aspirin Low Dose 81 mg oral delayed release tablet 1 tablet, By Mouth, Daily, # 90 tablet, 4 Refills, Maintenance, 03/01/23 17:49:00 EST, [facility], 188, cm, 01/30/23 13:26:00 EDT, Height, [...] 2 Refills, Maintenance, 04/27/22 23:43:00 EST, Cream, [facility], 1 application Topically 2 times a day,Instr:apply to penile rash, 188, cm, 04/27/22 13:44:00 EST, Heigh... Start Date: 04/27/22 Status: Ordered diazepam 10 mg oral tablet See Instructions, PRN, 1 tablet By Mouth 1 hr before MRI, # 1 tablet, Refills 2, Tot. Refills 2, Maintenance, as needed for anxiety, 01/30/23 15:02:00 EDT, Instructions Replace Required Details, Route to Pharmacy Electronically, [facility],... Start Date: 01/30/23 Status: Ordered diclofenac 1% topical gel = 2 Gm, Topically, 4 times a day, PRN for pain, (surinamese) not to exceed: 16 gm/day/joint lower limb8 gm/day/joint of upper limb 32 gm/day may interchange for cream, # 100 Gm, 11 Refills, Maintenance, 04/15/22 13:02:00 EST, Gel, [facility]... Start Date: 04/15/22 Status: Ordered docusate [...] 16 Gm, 11 Refills, Maintenance, 07/09/23 11:37:00EDT, [place], [facility], Partial fill upon patient request if the prescription is for a schedule II opioid drug., 2 sprays Nares, Both 2 times... Start Date: 07/09/23 Status: Ordered Freestyle Tatyana [place] Freestyle Tatyana [place], See Instructions, # 1 each, Refills 0, [...] days., 08/11/23 11:15:00 EDT, Recently sent to [facility]... Start Date: 08/11/23 Status: [...] 11 Refills, Maintenance, 11/28/21 21:27:00 EDT, Solution, [facility], 188, cm, 11/22/21 16:37:00 EDT, Height, 122.63, kg, 11/22/21 16:37:00 EDT, Dry We... Start Date: 11/28/21 Status: Ordered ipratropium nasal 21 mcg/inh spray 1 sprays = 21 mcg, Nares, Both, Daily at bedtime, # 30 mL, 11 Refills, Acute 10/31/24 9:00:00 EDT, 11/01/23 9:04:00 EDT, [facility], Partial fill upon patient request if [...] Gm, 5 Refills, Maintenance, 12/22/21 7:28:00 EDT, [facility], same Rx was sent 11/11 w/ [...] Refills, Maintenance, 10/17/23 16:21:00 EDT, ER Tablet, [facility], Partial fill upon patient request if the prescription is for a schedule II opioid drug... Start Date: 10/17/23 Status: Ordered methadone 10 mg oral tablet See Instructions, By mouth. 2 tab in AM, 1.5 midday, 2 in evening;for pain. IDC10: G90.5 CRPS. [address] [facility]., # 154 tablet, 0 Refills, Maintenance, pain, 10/09/23 21:08:00 EDT,[facility], May partial fill., 0... Start Date: 10/09/23 Status: Ordered methadone 10 mg oral tablet See Instructions, By mouth. 2 tab in AM, 1.5 midday, 2 in evening;for pain. IDC10: G90.5 CRPS. [address] [facility]., # 154 tablet, 0 Refills, Maintenance, pain, 09/11/23 21:08:00 EDT,[facility], August partial fill., 0... Start Date: 09/11/23 Status: Ordered methadone 10 mg oral tablet See Instructions, By mouth. 2 tab in AM, 1.5 midday, 2 in evening;for pain. IDC10: G90.5 CRPS. [address] [facility]., # 154 tablet, 0 Refills, Maintenance, pain, 11/06/23 14:08:00 EDT,[facility], May partial fill., 11/06/23... Start Date: [...] 1 Refills, Soft Stop, 02/16/22 23:38:00 EDT, [facility], 188, cm, 02/16/22 13:07:00 EDT, Height,122.63, kg, 11/22/21 16:37:00 EDT, Dry Weight Start Date: 02/16/22 Status: Ordered ondansetron 4 mg oral tablet Rx by [facility], # 60, Maintenance, 08/11/23 11:48:00 EDT Start Date: 08/11/23 Status: Ordered pantoprazole 40 mg oral delayed release tablet 0 Refills, Maintenance, 02/16/22 23:33:00 EDT Start Date: 02/16/22 Status: Ordered Pen [place], 31 G [...] 02/18/23 19:20:00 EST, Route to Pharmacy Electronically, [facility], 188, cm, 01/30/23 13:26:00 EDT, Height, [...] tablet, 5 Refills, Maintenance, 07/09/23 11:09:00 EDT, [facility], 30, 1 tablet By Mouth Daily, 188, cm, 07/05/23 11:09:00 EDT, Height, 126.09, kg, 04/26/23 13:06:00 EST, Dry Weight Start Date: 07/09/23 Status: Ordered tamsulosin 0.4 mg oral capsule 0.8 mg, 2, capsule, By Mouth, Daily, dose increase, # 180 capsule, Refills 11, Tot. Refills 11, Maintenance, 07/26/23 14:15:00 EDT, Route to Pharmacy Electronically, [facility], 188, cm, 07/26/23 13:30:00 EDT, Height, [...] Intramuscular, Every 14 days, IM or subcutaneous. [facility]., # 2 mL, 5 Refills, Maintenance, 08/11/23 11:20:00 EDT, [facility], Last sent to [facility]. Sending now to [facility] due to pt request msg [...] tablet, 11 Refills, Maintenance, 03/24/21 21:00:00 EST, [facility], 188, cm, 03/22/21 14:17:00 EST, Height, 125.2, kg, 06/20/20 14:28:00 EST, Dry Weight Start Date: 03/24/21 Status: Ordered Vitamin D3 1000 intl units oral tablet 1 tablet, By Mouth, Daily, # 90 tablet, 4 Refills, Maintenance, 04/01/23 22:28:00 EST, [facility], 188, cm, 01/30/23 13:26:00 EDT, Height, [...] Primary Care Member Role: PCP Address: Address: [address] [place] [address] Name: Luz Potter Position: [facility] Outreach Member Role: Lifetime Consulting Physician Name: Miki Rodriguez MD Position: [facility] Renal MD Member Role: Lifetime Consulting Physician Address: Address: [address] [facility] [place] [address]- [place] Care Team Related Persons Name: BRANDON MTZ Address: home [address] [place] [address] Name: BRANDON BARKER Address: home [address] [place] [address] Name: ROSALINDA BERTRAND
--- OUTSIDE RECORDS SUMMARY | 2023-11-22 10:25 | XMS_ITS | Continuity of Care Document ---
Author Organization [facility] Address [address] [place] [address]- Care Team Providers Care Car Escort Name Role Phone Vamshi Man MD Primary Care Physician Encounter [facility] Date(s): 10/15/23 - 11/14/23 [facility]/[address] [address]- Allergies, Adverse Reactions, Alerts Substance Reaction Severity Status Other Food Allergy fresh peaches - itch y mouth, throat and lips swell Active penicillin 1 rash Resolved penicillins Active Latex RASH Active 1rash per mother as child. Did take a penicillin for treatment of H pylori per pt w/o problem. Immunizations Given and Recorded Vaccine Date Status Refusal Reason SARS-CoV-2(COVID-19)mRNA-LNP vac([id number]) 01/30/23 Given influenza virus vaccine, inactivated 01/05/23 [...] influenza virus vaccine, inactivated 03/19/06 Give n [id number] 12y+ bivalent booster vax 02/16/22 Given pneumococcal 20-valent conjugate vaccine 02/16/22 Given Influenza Virus Vaccine (oldterm) 9 01/27/22 Recor ded Influenza Virus Vaccine (oldterm) 01/26/21 Recorde d SARS-CoV-2 mRNA (aluwqhz-tdjh-xwfvp) vax 11/11/21 Given SARS-CoV-2 (COVID-19) mRNA BNT-162b2 [...] Elissa Bertrand 13Result Comment: [11/27/2017] REceived at [facility] [place], [place]; ordered by Dr Michael Oliveira 14Location [...] 11 Refills, Maintenance, 02/08/23 10:21:00 EDT, Powder, [facility], replaces Flovent due to insurance coverage, 188, cm, 01/30/23 13:26:00 EDT, Height, 126, kg, 01/30/23 13:26:00 EDT,... Start Date: 02/08/23 Status: Ordered Aspirin Low Dose 81 mg oral delayed release tablet 1 tablet, By Mouth, Daily, # 90 tablet, 4 Refills, Maintenance, 03/01/23 17:49:00 EST, [facility], 188, cm, 01/30/23 13:26:00 EDT, Height, 126, kg, 01/30/23 13:26:00 EDT, Dry Weight Start Date: 03/01/23 Status: Ordered atorvastatin 40 mg oral tablet 1 tablet, By Mouth, Daily, # 90 tablet, 1 Refills, Maintenance, 07/25/23 20:12:00 EDT, [facility], 188, cm, 07/05/23 11:09:00 EDT, Height, 126.09, kg, 04/26/23 13:06:00 EST, Dry Weight Start Date: 07/25/23 Status: Ordered AutoCPAP 9-18 with heated humidification AutoCPAP 9-18 with heated humidification, See Instructions, # 1 each, Refills 0, Tot. Refills 0, Maintenance, use overnight and naps from [facility], 11/04/18 12:28:22 EDT, Compound Start [...] 2 Refills, Maintenance, 04/27/22 23:43:00 EST, Cream, [facility], 1 application Topically 2 times a day,Instr:apply to penile rash, 188, cm, 04/27/22 13:44:00 EST, Heigh... Start Date: 04/27/22 Status: Ordered diazepam 10 mg oral tablet See Instructions, PRN, 1 tablet By Mouth 1 hr before MRI, # 1 tablet, Refills 2, Tot. Refills 2, Maintenance, as needed for anxiety, 01/30/23 15:02:00 EDT, Instructions Replace Required Details, Route to Pharmacy Electronically, [facility],... Start Date: 01/30/23 Status: Ordered diclofenac 1% topical gel = 2 Gm, Topically, 4 times a day, PRN for pain, (swedish) not to exceed: 16 gm/day/joint lower limb8 gm/day/joint of upper limb 32 gm/day may interchange for cream, # 100 Gm, 11 Refills, Maintenance, 04/15/22 13:02:00 EST, Gel, [facility]... Start Date: 04/15/22 Status: Ordered docusate [...] 16 Gm, 11 Refills, Maintenance, 07/09/23 11:37:00EDT, [place], [facility], Partial fill upon patient request if the prescription is for a schedule II opioid drug., 2 sprays Nares, Both 2 times... Start Date: 07/09/23 Status: Ordered Freestyle Tatyana [place] Freestyle Tatyana [place], See Instructions, # 1 each, Refills 0, [...] 08/11/23 11:15:00 EDT, Recently sent to [facility] Start Date: 08/11/23 Status: Ordered [...] 11 Refills, Maintenance, 11/28/21 21:27:00 EDT, Solution, [facility], 188, cm, 11/22/21 16:37:00 EDT, Height, 122.63, kg, 11/22/21 16:37:00 EDT, Dry We... Start Date: 11/28/21 Status: Ordered ipratropium nasal 21 mcg/inh spray 1 sprays = 21 mcg, Nares, Both, Daily at bedtime, # 30 mL, 11 Refills, Acute 10/31/24 9:00:00 EDT, 11/01/23 9:04:00 EDT, [facility], Partial fill upon patient request if [...] Gm, 5 Refills, Maintenance, 12/22/21 7:28:00 EDT, [facility], same Rx was sent 11/11 w/ [...] Refills, Maintenance, 10/17/23 16:21:00 EDT, ER Tablet, [facility], [...] 0 Refills, Maintenance, pain, 10/09/23 21:08:00 EDT,[facility], May partial fill., 0... Start Date: 10/09/23 Status: Ordered methadone 10 mg oral tablet See Instructions, By mouth. 2 tab in AM, 1.5 midday, 2 in evening;for pain. IDC10: G90.5 CRPS. 28 day supply. [facility]., # 154 tablet, 0 Refills, Maintenance, pain, 09/11/23 21:08:00 EDT,[facility], August partial fill., 0... Start Date: 09/11/23 Status: Ordered methadone 10 mg oral tablet See Instructions, By mouth. 2 tab in AM, 1.5 midday, 2 in evening;for pain. IDC10: G90.5 CRPS. 28 day supply. [facility]., # 154 tablet, 0 Refills, Maintenance, pain, 11/06/23 14:08:00 EDT,[facility], May partial fill., 11/06/23... Start Date: [...] 1 Refills, Soft Stop, 02/16/22 23:38:00 EDT, [facility], 188, cm, 02/16/22 13:07:00 EDT, Height,122.63, kg, 11/22/21 16:37:00 EDT, Dry Weight Start Date: 02/16/22 Status: Ordered ondansetron 4 mg oral tablet Rx by Idalia Sandoval, # 60, Maintenance, 08/11/23 11:48:00 EDT Start Date: 08/11/23 Status: Ordered pantoprazole 40 mg oral delayed release tablet 0 Refills, Maintenance, 02/16/22 23:33:00 EDT Start Date: 02/16/22 Status: Ordered Pen [place], 31 G x 8 mm BD Ultra [...] 02/18/23 19:20:00 EST, Route to Pharmacy Electronically, [facility], 188, cm, 01/30/23 13:26:00 EDT, Height, [...] tablet, 5 Refills, Maintenance, 07/09/23 11:09:00 EDT, [facility], 30, 1 tablet By Mouth Daily, 188, cm, 07/05/23 11:09:00 EDT, Height, 126.09, kg, 04/26/23 13:06:00 EST, Dry Weight Start Date: 07/09/23 Status: Ordered tamsulosin 0.4 mg oral capsule 0.8 mg, 2, capsule, By Mouth, Daily, dose increase, # 180 capsule, Refills 11, Tot. Refills 11, Maintenance, 07/26/23 14:15:00 EDT, Route to Pharmacy Electronically, [facility], 188, cm, 07/26/23 13:30:00 EDT, Height, [...] Intramuscular, Every 14 days, IM or subcutaneous. [facility]., # 2 mL, 5 Refills, Maintenance, 08/11/23 11:20:00 EDT, [facility], Last sent to [facility]. Sending now to [facility] due to pt request msg [email or web address]... Start Date: 08/11/23 Status: Ordered tiZANidine 4 mg oral tablet 4 mg, 1, tablet, By Mouth, 3 times a day, PRN, # 90 tablet, Refills 11, Tot. Refills 11, Maintenance, as needed for muscle spasm, 09/10/23 13:47:00 EDT, Route to Pharmacy Electronically, [facility], 188, cm, 07/26/23 17:37:00 EDT, Height, [...] tablet, 11 Refills, Maintenance, 03/24/21 21:00:00 EST, [facility], 188, cm, 03/22/21 14:17:00 EST, Height, 125.2, kg, 06/20/20 14:28:00 EST, Dry Weight Start Date: 03/24/21 Status: Ordered Vitamin D3 1000 intl units oral tablet 1 tablet, By Mouth, Daily, # 90 tablet, 4 Refills, Maintenance, 04/01/23 22:28:00 EST, [facility], 188, cm, 01/30/23 13:26:00 EDT, Height, [...] Primary Care Member Role: PCP Address: Address: [address] [place] [address] Name: Luz Potter Position: [facility] Outreach Member Role: Lifetime Consulting Physician Name: Miki Rodriguez MD Position: [facility] Renal MD Member Role: Lifetime Consulting Physician Address: Address: [address] [facility] [place] [address]- [place] Care Team Related Persons Name: BRANDON MTZ Address: home [address] [facility] [address] [place] [address] Name: BRANDON BARKER Address: home [address] [place] [address] Name: ROSALINDA BERTRAND
[2023-11-22 10:26] LABS: Glucose, Whole Blood 98 mg/dL (60-115)
--- OUTSIDE RECORDS SUMMARY | 2023-11-22 10:27 | XMS_ITS | Continuity of Care Document ---
Author Organization [facility] Address [address] [place] [id number]- Care Team Providers Care Asbestos Brake Lining Finisher Name Role Phone Vamshi Man MD Primary Care Physician Encounter [facility] Date(s): 10/16/23 - 11/15/23 [facility]/[address] [address]- Allergies, Adverse Reactions, Alerts Substance Reaction Severity Status Other Food Allergy fresh peaches - itch y mouth, throat and lips swell Active penicillin 1 rash Resolved penicillins Active Latex RASH Active 1rash per mother as child. Did take a penicillin for treatment of H pylori per pt w/o problem. Immunizations Given and Recorded Vaccine Date Status Refusal Reason SARS-CoV-2(COVID-19)mRNA-LNP vac([id number]) 01/30/23 Given influenza virus vaccine, inactivated 01/05/23 [...] influenza virus vaccine, inactivated 03/19/06 Give n [id number] 12y+ bivalent booster vax 02/16/22 Given pneumococcal 20-valent conjugate vaccine 02/16/22 Given Influenza Virus Vaccine (oldterm) 9 01/27/22 Recor ded Influenza Virus Vaccine (oldterm) 01/26/21 Recorde d SARS-CoV-2 mRNA ([id number]) vax 11/11/21 Given SARS-CoV-2 (COVID-19) mRNA BNT-162b2 [...] Elissa Bertrand 13Result Comment: [11/27/2017] REceived at [facility] [place], [place]; ordered by Dr Michael Oliveira 14Location [...] 11 Refills, Maintenance, 02/08/23 10:21:00 EDT, Powder, [facility], replaces Flovent due to insurance coverage, 188, cm, 01/30/23 13:26:00 EDT, Height, 126, kg, 01/30/23 13:26:00 EDT,... Start Date: 02/08/23 Status: Ordered Aspirin Low Dose 81 mg oral delayed release tablet 1 tablet, By Mouth, Daily, # 90 tablet, 4 Refills, Maintenance, 03/01/23 17:49:00 EST, [facility], 188, cm, 01/30/23 13:26:00 EDT, Height, [...] Maintenance, use overnight and naps from [facility], 11/04/18 12:28:22 EDT, Compound Start [...] 2 Refills, Maintenance, 04/27/22 23:43:00 EST, Cream, [facility], 1 application Topically 2 times a day,Instr:apply to penile rash, 188, cm, 04/27/22 13:44:00 EST, Heigh... Start Date: 04/27/22 Status: Ordered diazepam 10 mg oral tablet See Instructions, PRN, 1 tablet By Mouth 1 hr before MRI, # 1 tablet, Refills 2, Tot. Refills 2, Maintenance, as needed for anxiety, 01/30/23 15:02:00 EDT, Instructions Replace Required Details, Route to Pharmacy Electronically, [facility],... Start Date: 01/30/23 Status: Ordered diclofenac 1% topical gel = 2 Gm, Topically, 4 times a day, PRN for pain, (romansh) not to exceed: 16 gm/day/joint lower limb8 gm/day/joint of upper limb 32 gm/day may interchange for cream, # 100 Gm, 11 Refills, Maintenance, 04/15/22 13:02:00 EST, Gel, [facility]... Start Date: 04/15/22 Status: Ordered docusate [...] 16 Gm, 11 Refills, Maintenance, 07/09/23 11:37:00EDT, [place], [facility], Partial fill upon patient request if the prescription is for a schedule II opioid drug., 2 sprays Nares, Both 2 times... Start Date: 07/09/23 Status: Ordered Freestyle Tatyana [place] Freestyle Tatyana [place], See Instructions, # 1 each, Refills 0, [...] days., 08/11/23 11:15:00 EDT, Recently sent to [facility]... Start Date: 08/11/23 Status: [...] 11 Refills, Maintenance, 11/28/21 21:27:00 EDT, Solution, [facility], 188, cm, 11/22/21 16:37:00 EDT, Height, 122.63, kg, 11/22/21 16:37:00 EDT, Dry We... Start Date: 11/28/21 Status: Ordered ipratropium nasal 21 mcg/inh spray 1 sprays = 21 mcg, Nares, Both, Daily at bedtime, # 30 mL, 11 Refills, Acute 10/31/24 9:00:00 EDT, 11/01/23 9:04:00 EDT, [facility], Partial fill upon patient request [...] Refills, Maintenance, 10/17/23 16:21:00 EDT, ER Tablet, [facility], Partial fill upon patient request if the prescription is for a schedule II opioid drug... Start Date: 10/17/23 Status: Ordered methadone 10 mg oral tablet See Instructions, By mouth. 2 tab in AM, 1.5 midday, 2 in evening;for pain. IDC10: G90.5 CRPS. 28 day supply. [facility]., # 154 tablet, 0 Refills, Maintenance, pain, 10/09/23 21:08:00 EDT,[facility], May partial fill., 0... Start Date: 10/09/23 Status: Ordered methadone 10 mg oral tablet See Instructions, By mouth. 2 tab in AM, 1.5 midday, 2 in evening;for pain. IDC10: G90.5 CRPS. 28 day supply. [facility]., # 154 tablet, 0 Refills, Maintenance, pain, 09/11/23 21:08:00 EDT,[facility], August partial fill., 0... Start Date: 09/11/23 Status: Ordered methadone 10 mg oral tablet See Instructions, By mouth. 2 tab in AM, 1.5 midday, 2 in evening;for pain. IDC10: G90.5 CRPS. 28 day supply. [facility]., # 154 tablet, 0 Refills, Maintenance, pain, 11/06/23 14:08:00 EDT,[facility], May partial fill., 11/06/23... Start Date: [...] 1 Refills, Soft Stop, 02/16/22 23:38:00 EDT, [facility], 188, cm, 02/16/22 13:07:00 EDT, Height,122.63, kg, 11/22/21 16:37:00 EDT, Dry Weight Start Date: 02/16/22 Status: Ordered ondansetron 4 mg oral tablet Rx by Idalia Sandoval, # 60, Maintenance, 08/11/23 11:48:00 EDT Start Date: 08/11/23 Status: Ordered pantoprazole 40 mg oral delayed release tablet 0 Refills, Maintenance, 02/16/22 23:33:00 EDT Start Date: 02/16/22 Status: Ordered Pen [place], 31 G x 8 mm BD Ultra [...] 02/18/23 19:20:00 EST, Route to Pharmacy Electronically, [facility], 188, cm, 01/30/23 13:26:00 EDT, Height, [...] tablet, 5 Refills, Maintenance, 07/09/23 11:09:00 EDT, [facility], 30, 1 tablet By Mouth Daily, 188, cm, 07/05/23 11:09:00 EDT, Height, 126.09, kg, 04/26/23 13:06:00 EST, Dry Weight Start Date: 07/09/23 Status: Ordered tamsulosin 0.4 mg oral capsule 0.8 mg, 2, capsule, By Mouth, Daily, dose increase, # 180 capsule, Refills 11, Tot. Refills 11, Maintenance, 07/26/23 14:15:00 EDT, Route to Pharmacy Electronically, [facility], 188, cm, 07/26/23 13:30:00 EDT, Height, [...] Intramuscular, Every 14 days, IM or subcutaneous. [facility]., # 2 mL, 5 Refills, Maintenance, 08/11/23 11:20:00 EDT, [facility], Last sent to [facility]. Sending [facility] to [facility] [...] tablet, 11 Refills, Maintenance, 03/24/21 21:00:00 EST, [facility], 188, cm, 03/22/21 14:17:00 EST, Height, 125.2, kg, 06/20/20 14:28:00 EST, Dry Weight Start Date: 03/24/21 Status: Ordered Vitamin D3 1000 intl units oral tablet 1 tablet, By Mouth, Daily, # 90 tablet, 4 Refills, Maintenance, 04/01/23 22:28:00 EST, [facility], 188, cm, 01/30/23 13:26:00 EDT, Height, [...] Team Personnel Name: Shoaib An RN Position: [facility] RN Supv Member Role: Primary Care Nurse Name: Vamshi Man MD Position: [facility] Physician - Primary Care Member Role: PCP Address: Address: [address] [place] [address] Name: Luz Potter Position: [facility] Outreach Member Role: Lifetime Consulting Physician Name: Miki Rodriguez MD Position: [facility] Renal MD Member Role: Lifetime Consulting Physician Address: Address: [address] [facility] [place] [address]- [place] Care Team Related Persons Name: BRANDON MTZ Address: home [address] [place] [address] Name: BRANDON BARKER Address: home [address] [place] [address] Name: ROSALINDA BERTRAND
--- OUTSIDE RECORDS SUMMARY | 2023-11-22 10:28 | XMS_ITS | Continuity of Care Document ---
Author Organization [facility] Address [address] [place] [id number]- Care Team Providers Care Plaster Lather Name Role Phone Vamshi Man MD Primary Care Physician [phone] Encounter [facility] Date(s): 09/11/23 - 10/11/23 [facility]/[address] [address]- Allergies, Adverse Reactions, Alerts Substance Reaction Severity Status Other Food Allergy fresh peaches - itch y mouth, throat and lips swell Active penicillin 1 rash Resolved penicillins Active Latex RASH Active 1rash per mother as child. Did take a penicillin for treatment of H pylori per pt w/o problem. Immunizations Given and Recorded Vaccine Date Status Refusal Reason SARS-CoV-2(COVID-19)mRNA-LNP vac([id number]) 01/30/23 Given influenza virus vaccine, inactivated 01/05/23 [...] influenza virus vaccine, inactivated 03/19/06 Give n [id number] 12y+ bivalent booster vax 02/16/22 Given pneumococcal 20-valent conjugate vaccine 02/16/22 Given Influenza Virus Vaccine (oldterm) 9 01/27/22 Recor ded Influenza Virus Vaccine (oldterm) 01/26/21 Recorde d SARS-CoV-2 mRNA ([id number]) vax 11/11/21 Given SARS-CoV-2 (COVID-19) mRNA BNT-162b2 [...] immunization card 11Location History: [facility] 12Location History: Eilssa Bertrand 13Result Comment: [11/27/2017] REceived at [facility] [place], [place]; ordered by Dr Michael Oliveira 14Location [...] 11 Refills, Maintenance, 02/08/23 10:21:00 EDT, Powder, [facility], replaces Flovent due to insurance coverage, 188, cm, 01/30/23 13:26:00 EDT, Height, 126, kg, 01/30/23 13:26:00 EDT,... Start Date: 02/08/23 Status: Ordered Aspirin Low Dose 81 mg oral delayed release tablet 1 tablet, By Mouth, Daily, # 90 tablet, 4 Refills, Maintenance, 03/01/23 17:49:00 EST, [facility], 188, cm, 01/30/23 13:26:00 EDT, Height, [...] 2 Refills, Maintenance, 04/27/22 23:43:00 EST, Cream, [facility], 1 application Topically 2 times a day,Instr:apply to penile rash, 188, cm, 04/27/22 13:44:00 EST, Heigh... Start Date: 04/27/22 Status: Ordered diazepam 10 mg oral tablet See Instructions, PRN, 1 tablet By Mouth 1 hr before MRI, # 1 tablet, Refills 2, Tot. Refills 2, Maintenance, as needed for anxiety, 01/30/23 15:02:00 EDT, Instructions Replace Required Details, Route to Pharmacy Electronically, [facility],... Start Date: 01/30/23 Status: Ordered diclofenac 1% topical gel = 2 Gm, Topically, 4 times a day, PRN for pain, (yi) not to exceed: 16 gm/day/joint lower limb8 gm/day/joint of upper limb 32 gm/day may interchange for cream, # 100 Gm, 11 Refills, Maintenance, 04/15/22 13:02:00 EST, Gel, [facility]... Start Date: 04/15/22 Status: Ordered docusate [...] 16 Gm, 11 Refills, Maintenance, 07/09/23 11:37:00EDT, [place], [facility], Partial fill upon patient request if the prescription is for a schedule II opioid drug., 2 sprays Nares, Both 2 times... Start Date: 07/09/23 Status: Ordered Freestyle Tatyana [place] Freestyle Tatyana [place], See Instructions, # 1 each, Refills 0, [...] days., 08/11/23 11:15:00 EDT, Recently sent to [facility]... Start Date: 08/11/23 Status: [...] 11 Refills, Maintenance, 11/28/21 21:27:00 EDT, Solution, [facility], 188, cm, 11/22/21 16:37:00 EDT, Height, [...] Gm, 5 Refills, Maintenance, 12/22/21 7:28:00 EDT, [facility], same Rx was sent 11/11 w/ [...] tablet, 0 Refills, Maintenance, pain, 10/09/23 21:08:00 EDT,[facility], May partial fill., 0... Start Date: 10/09/23 Status: Ordered methadone 10 mg oral tablet See Instructions, By mouth. 2 tab in AM, 1.5 midday, 2 in evening;for pain. IDC10: G90.5 CRPS. 28 day supply. [facility]., # 154 tablet, 0 Refills, Maintenance, pain, 09/11/23 21:08:00 EDT,[facility], May partial fill., 0... Start Date: 09/11/23 Status: Ordered methadone 10 mg oral tablet See Instructions, By mouth. 2 tab in AM, 1.5 midday, 2 in evening;for pain. IDC10: G90.5 CRPS. 28 day supply. [facility]., # 154 tablet, 0 Refills, Maintenance, pain, 08/14/23 21:08:00 EDT,[facility], August partial fill., 0... [...] EDT Start Date: 02/16/22 Status: Ordered Pen [place], 31 G x 8 mm BD Ultra [...] 02/18/23 19:20:00 EST, Route to Pharmacy Electronically, [facility], 188, cm, 01/30/23 13:26:00 EDT, Height, [...] tablet, 5 Refills, Maintenance, 07/09/23 11:09:00 EDT, [facility], 30, 1 tablet By Mouth Daily, 188, cm, 07/05/23 11:09:00 EDT, Height, 126.09, kg, 04/26/23 13:06:00 EST, Dry Weight Start Date: 07/09/23 Status: Ordered tamsulosin 0.4 mg oral capsule 0.8 mg, 2, capsule, By Mouth, Daily, dose increase, # 180 capsule, Refills 11, Tot. Refills 11, Maintenance, 07/26/23 14:15:00 EDT, Route to Pharmacy Electronically, [facility], 188, cm, 07/26/23 13:30:00 EDT, Height, 121.81, kg, 07/26/23 13... Start Date: 07/26/23 Status: Ordered Test Strips See Instructions, # 100 each, Refills 5, Tot. Refills 5, Maintenance, Precision Ganga strips (for Freestyle Tatyana glucometer). Type 2 diabetes mellitus on insulin (E11, Z79.4). Test 2-4x/day if symptoms, or sensor concerns., 02/08/23 10:36:00 EDT, [facility]... Start Date: 02/08/23 Status: Ordered Test [...] Intramuscular, Every 14 days, IM or subcutaneous. [facility]., # 2 mL, 5 Refills, Maintenance, 08/11/23 11:20:00 EDT, [facility], Last sent to [facility]. Sending now to [facility] due to pt request wale... Start Date: 08/11/23 Status: Ordered tiZANidine 4 mg oral tablet 4 mg, 1, tablet, By Mouth, 3 times a day, PRN, # 90 tablet, Refills 11, Tot. Refills 11, Maintenance, as needed for muscle spasm, 09/10/23 13:47:00 EDT, Route to Pharmacy Electronically, [facility], 188, cm, 07/26/23 17:37:00 EDT, Height, [...] tablet, 11 Refills, Maintenance, 03/24/21 21:00:00 EST, [facility], 188, cm, 03/22/21 14:17:00 EST, Height, 125.2, kg, 06/20/20 14:28:00 EST, Dry Weight Start Date: 03/24/21 Status: Ordered Vitamin D3 1000 intl units oral tablet 1 tablet, By Mouth, Daily, # 90 tablet, 4 Refills, Maintenance, 04/01/23 22:28:00 EST, [facility], 188, cm, 01/30/23 13:26:00 EDT, Height, [...] ? chr regional pain syndrome 4s/p Modified Alger procedure, repair of conjoined tendon of extensor [...] Team Personnel Name: Shoaib An RN Position: [facility] RN Supv Member Role: Primary Care Nurse Name: Donovan DE LOS [place], Vamshi Oshea Position: [facility] Physician - Primary Care Member Role: PCP Address: Address: [address] [place] [address]- Name: Luz Potter Position: [facility] Outreach Member Role: Lifetime Consulting Physician Name: Miki Rodriguez MD Position: [facility] Renal MD Member Role: Lifetime Consulting Physician Address: Address: [address] [facility] [place] [place] [address]- Care Team Related Persons Name: BRANDON MTZ Address: home [address] [place] [address] Name: BRANDON BARKER Address: home [address] [place] [address] Name: ROSALINDA BERTRAND
[2023-11-22 10:29] VITALS: BP 125/88; PULSE 86; RESP 18; TEMP 36.9; O2SAT 97
[2023-11-22] MEDS: Lactated Ringers 1,000 ML 100 ML IVCONT (10:37)
--- NOTE | 2023-11-22 11:09 | P.HPSUR_ITS ---
Pre-Procedural Eval Section A - 24 Hr Update-Section A only Date of Service: 11/22/23 Section B - Complete if H&P > 30 days Chief Complaint: Gastro-esophageal reflux disease without esophagit Relevant Family History (Specify if Yes): No Relevant Social History: None Present Medications: see Short Stay Collaborative assessment Medical History: Significant History (Obesity (BMI 30.0-34.9) Left flank disc omfort Upper abdominal pain Constipation by delayed colonic transit GERD (gastroesophageal reflux disease) Elevated cholesterol HTN (hypertension) Bleeding hemorrhoids Diabetes mellitus Asthma) History of Previous Operations: Relevant previous surgery/procedure and date(s) (H/O foot surgery History of esophagogastroduodenoscopy (EGD) History of tonsillectomy History of sinus surgery History of neck surgery History of carpal tunnel release History of release of tendon History of umbilical hernia repair History of colonoscopy) Allergies: Allergies Allergy/AdvReac Type Severity Reaction Status Date / Time Penicillins [PENICILLINS] Allergy Unknown RASH Verified 10/10/23 08:03 lactose AdvReac Intermediate Abdominal Uncoded 10/10/23 08:03 Pain Review of Systems Sugical H&P ROS: Negative: Constitution, Cardiovascular, Respiratory, Neurologic al, Psychiatric, Hem-Onc, Allergic/Immunologic, Gastrointestinal, Genitourinary, Musculoskeletal, Integumentary, Endocrine and Eyes/Ears/Nose/Throat Exam Surgical H&P Exam: Normal: HEENT, Normal: Heart, Normal: Lungs, Normal: Extremities, Normal: Abdomen, Normal: Skin and Normal: Neurological Plan Diagnosis/Plan: Unchanged I have reviewed the history and physical and performed a pertinent physical examination on my patient. No changes have occurred unless specified. Time Spent With Patient Time: Total time managing care of this patient today ____ minutes.
--- NOTE | 2023-11-22 11:48 | W.PM.OPN ---
Operative Note Operative Note Date of Service: 11/22/23 Narrative: Procedure Description: EGD Indication: dysphagia Anesthesia: MAC FLEXIBLE TRANSORAL UPPER GASTROINTESTINAL ENDOSCOPY UPPER ENDOSCOPY Consent: Indications for the procedure and potential complications of bleeding, perforation, reaction to medications and missed diagnosis were discussed with the patient and informed consent was obtained. Instrument: Olympus GIF H 190 J mid size upper endoscope Monitoring: Vital signs and clinical assessment, continuous EKG monitoring, Pulse oximetry, Carbon Dioxide monitoring and blood pressure monitoring were done throughout the procedure. Procedure: The patient was placed in the left lateral decubitis position and pre-procedure medications were administered and a bite block was placed. The endoscope was inserted into the mouth and advanced under direct vision to the third part of duodenum. A careful inspection was made as the upper endoscope was withdrawn including a retroflexed examination of the proximal stomach; Findings and interventions are described below. Findings: Larynx:normal Esophagus: GE junction at 40? cm, diaphragm hiatus at 40 cm, normal mucosa, savary wire passed and over the wire a 18 mm bougie was passed for dilation, no tears seen Stomach: Normal mucosa with few fundic gland polyps seen. Grade 2 flap valve on retroflexed examination of the cardia. Duodenum: normal Intervention: savary dilation Impression/Findings: fundic gland polyps PLAN: cont with PPI rept dilation prn
[2023-11-22 12:15] VITALS: BP 108/72; PULSE 104; RESP 18; TEMP 36.1; O2SAT 99
[2023-11-22 12:30] VITALS: BP 117/80; PULSE 89; RESP 18; TEMP 36.1; O2SAT 97
== END 2023-11-22 12:55 | disposition home or self-care (01) ==
PROVIDERS: PCP Internal Medicine; Visit Provider Internal Medicine Gastroenterology
PROC: (CPT 43248; principal; 2023-11-22 12:40)
DX: R13.10 Dysphagia, unspecified (principal); K21.9 Gastro-esophageal reflux disease without esophagitis; K31.7 Polyp of stomach and duodenum; I10 Essential (primary) hypertension; I25.10 Atherosclerotic heart disease of native coronary artery without angina pectoris; I42.9 Cardiomyopathy, unspecified; E11.9 Type 2 diabetes mellitus without complications; E78.00 Pure hypercholesterolemia, unspecified; J45.909 Unspecified asthma, uncomplicated; K58.9 Irritable bowel syndrome, unspecified; E66.9 Obesity, unspecified; Z68.33 Body mass index [BMI] 33.0-33.9, adult; Z79.899 Other long term (current) drug therapy; Z79.82 Long term (current) use of aspirin; Z79.51 Long term (current) use of inhaled steroids; F11.90 Opioid use, unspecified, uncomplicated; Z79.4 Long term (current) use of insulin; Z79.84 Long term (current) use of oral hypoglycemic drugs; Z87.891 Personal history of nicotine dependence; Z88.0 Allergy status to penicillin; Z98.890 Other specified postprocedural states
CPT/HCPCS: 43248; 82947; C1769; J2704

== ENCOUNTER → 2023-11-22 10:14 | Outpatient (BNV) | payer MEDICARE, MEDICAID, SELFPAY | PROVIDERS: PCP Internal Medicine; Visit Provider Internal Medicine Gastroenterology | DX: R13.10 Dysphagia, unspecified (principal); K31.7 Polyp of stomach and duodenum | CPT/HCPCS: 43248 ==

== ENCOUNTER 2023-11-29 09:14 | Outpatient (AMB) | payer MEDICARE, MEDICAID, SELFPAY ==
--- NOTE | 2023-11-29 09:16 | MHC.OFFVIS ---
Intake Visit Reasons: OV-Right knee pain-follow up Intake Note: Elissa a 58 year old male presents today for a follow up of right knee, last Durolane injection on 07/02/23. Patient reports gel injection provided him with relief, stating his pain returned about 2-3 months ago. He is requesting a cortisone injection as he is too soon to have a gel injection. Allergies Penicillins [PENICILLINS] Allergy (Unknown, Verified 11/29/23 09:22) RASH lactose Adverse Reaction (Intermediate, Uncoded 11/29/23 09:22) Abdominal Pain Medication List - Last Reconciled 11/29/23 by Luana Gama PA-C albuterol sulfate 90 mcg/actuation 2 puffs inhalation Q4H PRN alprazolam 1 tab PO BID PRN aspirin (Aspirin Childrens) 81 mg PO DAILY atorvastatin (Lipitor) 80 mg PO BEDTIME blood sugar diagnostic (FreeStyle Lite Strips) As directed brimonidine 0.15% 1 drp ophthalmic (eye) Q8H bupropion HCl XL 300 mg PO DAILY carvedilol 6.25 mg PO BID cholecalciferol (vitamin D3) 25 mcg PO DAILY cyclobenzaprine 10 mg PO duloxetine 60 mg PO DAILY finasteride (Proscar) 5 mg PO DAILY 90 days fluticasone propionate 110 mcg/actuation (Flovent HFA) 2 puffs inhalation BID hydrocortisone 2.5% (Procto-Med HC) 1 appl [place] BID-QID PRN ibuprofen 800 mg PO Q8H PRN 30 days insulin glargine U-300 conc (Toujeo Max U-300 SoloStar) 70 units subcut DAILY insulin lispro 1 sliding scale dose subcut USEASDIRECTD ketotifen fumarate 0.025%(0.035%) 1 drp ophthalmic (eye) BID latanoprost 0.005% 1 drp ophthalmic (eye) BEDTIME levocetirizine 5 mg PO DAILY linaclotide (Linzess) 290 mcg PO DAILY PRN magnesium oxide 400 mg PO DAILY metformin ER 750 mg PO DAILY methadone 10 mg PO TID PRN metoclopramide HCl 10 mg PO TID montelukast (Singulair) 10 mg PO DAILY multivitamin with folic acid 400 mcg (Tab-A-Kelsie) 1 tab PO DAILY naloxone 4 mg/actuation (Narcan) 1 spray intranasal ondansetron 4 mg PO Q8H PRN 3 days pantoprazole 40 mg PO BID pen needle, diabetic (UltiCare Pen Needle) As directed pen needle, diabetic (Comfort EZ Pen [place]) As directed prazosin 2 mg PO BEDTIME prednisone 20 mg PO DAILY 7 days sacubitril-valsartan 49-51 mg (Entresto) 1 tab PO BID spironolactone 25 mg PO DAILY tamsulosin 0.4 mg PO BEDTIME testosterone enanthate 150 mg IM Q2W tirzepatide (Mounjaro) 10 mg subcut QWEEK tizanidine 4 mg PO TID PRN zolpidem 10 mg PO BEDTIME PRN HPI HPI OV-Right knee pain-follow up: Details: 58-year-old male who returns to the office today for a follow-up of right knee pain. He had his last Durolane injection on 07/02/23 which provided him relief until about 3 months ago. He is interested in having a cortisone injection. She has a history of diabetes. [facility] Medical History (Updated 11/21/23 @ 07:48 by Ann Jordan RN) Diverticulosis Osteoarthritis IBS (irritable bowel syndrome) Hyperlipidemia CAD (coronary artery disease) Nonischemic cardiomyopathy CHF (congestive heart failure) Sleep apnea Obesity (BMI 30.0-34.9) Left flank discomfort Upper abdominal pain GERD (gastroesophageal reflux disease) Elevated cholesterol HTN (hypertension) Constipation by delayed colonic transit Bleeding hemorrhoids Diabetes mellitus Asthma Surgical History H/O foot surgery History of esophagogastroduodenoscopy (EGD) History of tonsillectomy History of sinus surgery History of neck surgery History of carpal tunnel release History of release of tendon History of umbilical hernia repair History of colonoscopy Family History Mother History of colon cancer Brother History of liver cancer Maternal Aunt History of colon cancer Father No problems noted. 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 Tenderness along the medial and lateral joint line. Full ROM with crepitus. Negative Pearl?s. No ligamentous laxity. NVI. Office Procedures Joint Injection/Aspiration Joint Injection/Aspiration Primary Site: right knee Prep: site was prepped using aseptic technique, ethochloride spray was applied and injection warnings given Injected: 40 mg of, DepoMedrol, with 8 mL of, 1% plain lidocaine and in the joint Approach Used: anterolateral Procedure: The patient tolerated the procedure well and there was some relief with the local anesthesia Coding 50472 - Glenohumeral/Tronchanteric Bursa/Intraarticular Procedure code (CPT) selection complete Assessment & Plan Assessment & Plan (1) Osteoarthritis of right knee: Code(s): M17.11 - Unilateral primary osteoarthritis, right knee Category: Medical Qualifiers: Osteoarthritis type: primary Qualified Code(s): M17.11 - Unilateral primary osteoarthritis, right knee Plan We discussed options today, which include steroid injection. The patient did consent to move forward with the right knee injection, which was tolerated well. I recommended rest, ice, and elevation and OTC anti-inflammatories as needed for discomfort. We also discussed diabetes and the effect the steroid injection can have on their blood glucose levels; therefore, they will continue to monitor these very closely over the next 72 hours. If there are concerns, they should report to the ED immediately. He is also interested in repeating gel at his next appt in 3 months alongside the cortisone. We will arrange this. Patient Instructions: Scribed for Luana Gama PA-C, by [facility], on 11/29/2023 at 9:30 AM EST.? I, Luana Gama PA-C, have personally reviewed and agree with the information entered by the scribe. Coding Level of Care Code Est Pt Level 3 (98249) Diagnoses Primary osteoarthritis of right knee M17.11 Osteoarthritis type: primary CPT Codes Coding - Joint 7: 24618 - Glenohumeral/Tronchanteric Bursa/Intraarticular ([id number])
== END 2023-11-29 10:16 | disposition home or self-care (01) ==
PROVIDERS: PCP Internal Medicine; Visit Provider Physician Assistant
DX: M17.11 Unilateral primary osteoarthritis, right knee (principal)
CPT/HCPCS: 20610; 99213

== ENCOUNTER → 2023-11-29 09:14 | Outpatient (BNVA) | payer MEDICARE, MEDICAID, SELFPAY | PROVIDERS: PCP Internal Medicine; Visit Provider Physician Assistant | DX: M17.11 Unilateral primary osteoarthritis, right knee (principal) | CPT/HCPCS: 20610; 99212; J1010 ==

== ENCOUNTER 2023-12-03 13:13 | Outpatient (AMB) | payer MEDICARE, MEDICAID, SELFPAY ==
--- NOTE | 2023-12-03 13:24 | MHC.OFFVIS ---
Vital Signs 12/03/23 13:25 Height 6 ft 2 in Weight 251 lb 5.231 oz BMI 32.3 BP 118/79 Blood Pressure Location Lt brachial Position Sitting Pulse 88 Intake Visit Reasons: f/u procedures Intake Note: Elissa presents in the office as a follow up EGD and COLO. CC: Allergies Penicillins [PENICILLINS] Allergy (Unknown, Verified 12/03/23 13:28) RASH lactose Adverse Reaction (Intermediate, Uncoded 12/03/23 13:28) Abdominal Pain HPI HPI f/u procedures: Details: A 58 y/o male follow up with dysphagia and early satiety RECAP: EGD with balloon dilation which helped his dysphagia He had rept EGD with dilation for recurrence of dysphagia 06/08 with savary 17 mm He is was also dx with rapid gastric emptying and urgency possibly from DM and medication effects US 08/2022-- elastography 1.6, steatosis, nml GB, no stones/sludge Rept EGD 11/22/23: dilation with 18 mm savary wire INTERIM: swallowing is much better since stretching he still has occ left flank pain appetite is good he is taking weight loss meds, a1c is much better still taking pantoprazole and linaclotide, helping EXAM: GENERAL: The patient is well developed and nontoxic. VITAL SIGNS:see workflow HEENT: Nonicteric sclerae, PERRLA, EOMI. Oropharynx clear. Moist mucous membranes. Conjunctivae appear well perfused. No thyroid mass. CHEST: Chest wall is nontender. HEART: Regular rate and rhythm without murmurs. LUNGS: Clear to auscultation bilaterally. ABDOMEN: Soft, positive bowel sounds, nontender, no organomegaly. pos flank tenderness and left sided abdomen SKIN: No rash, no excessive bruising, petechiae, or purpura. NEUROLOGIC: Cranial nerves II-XII intact without motor/sensory deficit. Psych--nml MS; using walking stick, A/P: 1/ Dysphagia, possibly related to medications, DM, methadone--better with dilation 2/ rapid gastric emptying 3/ left sided flank discomfort seems to be radicular from the spine PLAN: 1/ waiting to see heme for light chains in urine 2/ cont with PPI and take MV 3/ repeat EGD prn PFSH Medical History Diverticulosis Osteoarthritis IBS (irritable bowel syndrome) Hyperlipidemia CAD (coronary artery disease) Nonischemic cardiomyopathy CHF (congestive heart failure) Sleep apnea Obesity (BMI 30.0-34.9) Left flank discomfort Upper abdominal pain GERD (gastroesophageal reflux disease) Elevated cholesterol HTN (hypertension) Constipation by delayed colonic transit Bleeding hemorrhoids Diabetes mellitus Asthma Surgical History H/O foot surgery History of esophagogastroduodenoscopy (EGD) History of tonsillectomy History of sinus surgery History of neck surgery History of carpal tunnel release History of release of tendon History of umbilical hernia repair History of colonoscopy Family History Mother History of colon cancer Brother History of liver cancer Maternal Aunt History of colon cancer Father No problems noted. 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
[2023-12-03 13:25] VITALS: BP 118/79; PULSE 88; BMI 32.3
== END 2023-12-03 13:51 | disposition home or self-care (01) ==
PROVIDERS: PCP Internal Medicine; Visit Provider Internal Medicine Gastroenterology
DX: Z98.890 Other specified postprocedural states (principal)
CPT/HCPCS: 99213

== ENCOUNTER → 2023-12-03 13:13 | Outpatient (BNVA) | payer MEDICARE, MEDICAID, SELFPAY | PROVIDERS: PCP Internal Medicine; Visit Provider Internal Medicine Gastroenterology | DX: R47.02 Dysphasia (principal); R68.81 Early satiety; Z98.890 Other specified postprocedural states | CPT/HCPCS: 99212 ==

== ENCOUNTER 2023-12-20 13:58 | Outpatient (AMB) | payer MEDICARE, MEDICAID, SELFPAY ==
[2023-12-20 14:03] VITALS: BMI 32.7
--- NOTE | 2023-12-20 14:03 | A.OFFVIS_ITS ---
VS Expanded 12/20/23 14:03 Height 6 ft 2 in Weight 254 lb 6.615 oz BMI 32.7 Intake Visit Reasons: T2DM/CONFIRMED Allergies Penicillins [PENICILLINS] Allergy (Unknown, Verified 12/03/23 13:28) RASH lactose Adverse Reaction (Intermediate, Uncoded 12/03/23 13:28) Abdominal Pain Medication List - Last Reconciled 12/20/[address], LDN albuterol sulfate 90 mcg/actuation 2 puffs inhalation Q4H PRN alprazolam 1 tab PO BID PRN aspirin (Aspirin Childrens) 81 mg PO DAILY atorvastatin 80 mg PO DAILY blood sugar diagnostic (FreeStyle Lite Strips) As directed brimonidine 0.15% 1 drp ophthalmic (eye) Q8H bupropion HCl XL 300 mg PO DAILY carvedilol 6.25 mg PO BID cholecalciferol (vitamin D3) 25 mcg PO DAILY cyclobenzaprine 10 mg PO dorzolamide 2% drps ophthalmic (eye) duloxetine 60 mg PO DAILY finasteride (Proscar) 5 mg PO DAILY 90 days fluticasone furoate 100 mcg/actuation (Arnuity Ellipta) 1 inh inhalation DAILY fluticasone propionate 50 mcg/actuation 1 spray intranasal BID glipizide 5 mg PO BID hydrocortisone 2.5% (Procto-Med HC) 1 appl [place] BID-QID PRN ibuprofen 800 mg PO Q8H PRN 30 days insulin glargine U-300 conc (Toujeo Max U-300 SoloStar) 70 units subcut DAILY ketotifen fumarate 0.025%(0.035%) 1 drp ophthalmic (eye) BID latanoprost 0.005% 1 drp ophthalmic (eye) BEDTIME levocetirizine 5 mg PO DAILY linaclotide (Linzess) 290 mcg PO DAILY PRN magnesium oxide 400 mg PO DAILY metformin ER 750 mg PO DAILY methadone 10 mg PO TID PRN montelukast (Singulair) 10 mg PO DAILY multivitamin with folic acid 400 mcg (Tab-A-Kelsie) 1 tab PO DAILY naloxone 4 mg/actuation (Narcan) 1 spray intranasal ondansetron HCl 4 mg PO Q8H PRN pantoprazole 40 mg PO BID pen needle, diabetic (UltiCare Pen Needle) As directed pen needle, diabetic (Comfort EZ Pen [place]) As directed prazosin mg PO prednisone 20 mg PO DAILY 7 days sacubitril-valsartan 49-51 mg (Entresto) 1 tab PO BID spironolactone 25 mg PO DAILY tamsulosin 0.4 mg PO BEDTIME testosterone enanthate 150 mg IM Q2W tirzepatide (Mounjaro) 12.5 mg subcut tizanidine 4 mg PO TID PRN zolpidem 10 mg PO BEDTIME PRN Nutrition Presentation Details: Pt presents for MNT f/u for T2DM Pt reports his most recent A1c 6.7% (12/07) Pt reports having small meals , due to feeling full fast (Pt also on Mounjaro) Pt reports choosing soft foods, chewing foods well prior to swallowing and working on following healthy plate method the majority of the time BS Monitoring Most Recent Diabetes Results: No Data to Display PFS Medical History Diverticulosis Osteoarthritis IBS (irritable bowel syndrome) Hyperlipidemia CAD (coronary artery disease) Nonischemic cardiomyopathy CHF (congestive heart failure) Sleep apnea Obesity (BMI 30.0-34.9) Left flank discomfort Upper abdominal pain GERD (gastroesophageal reflux disease) Elevated cholesterol HTN (hypertension) Constipation by delayed colonic transit Bleeding hemorrhoids Diabetes mellitus Asthma Surgical History H/O foot surgery History of esophagogastroduodenoscopy (EGD) History of tonsillectomy History of sinus surgery History of neck surgery History of carpal tunnel release History of release of tendon History of umbilical hernia repair History of colonoscopy Family History Mother History of colon cancer Brother History of liver cancer Maternal Aunt History of colon cancer Father No problems noted. 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 Assessment & Plan Assessment & Plan (1) Diabetes mellitus: Code(s): E11.9 - Type 2 diabetes mellitus without complications Category: Medical Plan: wt: 123 kg, 118kg (06/2023), 119kg (09/2023), 119 kg (01/07) Est kcal needs as per MSJ: 2500 (40% carb, 30% protein/fat) Est fluid needs as per 30 ml/d: 3500 Est prot per day as per 1 g/kg bw: 118 Recommend fiber intake : 8-10 g per day and gradually increase to 25-28 g per day for women and 35-38 g for men or as tolerated Recommend sodium intake per day : less than 2000 mg Educated patient on: ( R = reviewed V = verbalizes understanding N/R = needs review N/A = not applicable * Food sources of carbohydrate, adequate serving sizes and its role in various health conditions: R * Differences between complex carbohydrates a simple carbohydrates, role of fiber in diet: R * Differences between types of fats and role in diet (mono on saturated fat fatty acids, saturated fatty acids, trans fats): R , V * Food sources of sodium in salt and healthy modifications for heart health in kidney health: R * Vitamins and minerals: R * Healthy plate method concept: R , V * Physical activity: Benefits a precaution: R * Hypoglycemia protocol (rule of 15): R V - rule of 15 * Dietary prevention of Hyperglycemia: R V (2) Obesity (BMI 30.0-34.9): Code(s): E66.9 - Obesity, unspecified Category: Medical Plan: Follow healthy plate method choose MUFA source so foods (fish, seeds, nuts) Patient Instructions: Continue working on following healthy plate method, choosing fiber rich foods and lean protein foods Include a daily serving of omega 3 source of foods (seeds, nuts, fish Coding Level of Care Code Nutr Indiv Subseq (26487) Diagnoses Diabetes mellitus E11.9 Obesity (BMI 30.0-34.9) E66.9 Time Spent (min) 30
== END 2023-12-20 14:31 | disposition home or self-care (01) ==
PROVIDERS: PCP Internal Medicine; Visit Provider Dietitian, Registered
DX: E11.9 Type 2 diabetes mellitus without complications (principal); E66.9 Obesity, unspecified

== ENCOUNTER → 2023-12-20 13:58 | Outpatient (BNVA) | payer MEDICARE, MEDICAID, SELFPAY | PROVIDERS: PCP Internal Medicine; Visit Provider Dietitian, Registered | DX: E11.9 Type 2 diabetes mellitus without complications (principal); E66.9 Obesity, unspecified; R68.81 Early satiety; E78.00 Pure hypercholesterolemia, unspecified; Z68.32 Body mass index [BMI] 32.0-32.9, adult; Z79.4 Long term (current) use of insulin; Z71.3 Dietary counseling and surveillance | CPT/HCPCS: 97803 ==

== ENCOUNTER → 2023-12-31 09:47 | Outpatient (BNV) | payer MEDICARE, MEDICAID, SELFPAY | PROVIDERS: PCP Internal Medicine; Referring Provider Internal Medicine; Visit Provider Internal Medicine Medical Oncology | DX: D47.2 Monoclonal gammopathy (principal) | CPT/HCPCS: 99204 ==

== ENCOUNTER 2024-01-02 09:50 | Outpatient (REF) | payer MEDICARE, MEDICAID, SELFPAY ==
--- NOTE | ~2024-01-02 | US_ITS ---
EXAMINATION: US RETROPERITONEAL COMPLETE (RENAL) CLINICAL INFORMATION: Benign prostatic hyperplasia without lower urinary tract symptoms. COMPARISON: Ultrasound abdomen complete 06/05/2023. CT abdomen and pelvis 02/02/2023. Ultrasound abdomen complete with elastography 08/25/2022. TECHNIQUE: Real-time imaging of the kidneys and bladder. FINDINGS: RIGHT KIDNEY: 12.7 x 5.9 x 6.0 cm (SAG x AP x TRV). The kidney is normal in size, contour, and echogenicity. Renal cortical thickness is normal. No renal calculi or hydronephrosis. Benign-appearing renal cysts measuring up to 2.6 cm. No follow-up imaging is recommended. LEFT KIDNEY: 11.4 x 6.3 x 5.5 cm (SAG x AP x TRV). The kidney is normal in size, contour, and echogenicity. Renal cortical thickness is normal. No renal calculi or hydronephrosis. Benign-appearing renal cyst measuring 0.9 cm. No follow up imaging is recommended. BLADDER: Well distended and normal. Bilateral ureteral jets are demonstrated. Prevoid bladder volume is 513 mL. Postvoid bladder volume is 31.5 mL. Enlarged prostate, volume 43.2 mL. US/US retroperitoneal comp IMPRESSION: 1. Prostatomegaly. 2. Small postvoid bladder residual of 31.5 mL. Electronically signed by: Meri Sanderson MD 01/07/2024 05:42 PM EDT
== END 2024-01-02 09:51 | disposition home or self-care (01) ==
LOC: HO.HMGCX 09:50
PROVIDERS: PCP Internal Medicine; Visit Provider Urology
DX: N40.0 Benign prostatic hyperplasia without lower urinary tract symptoms (principal); R97.20 Elevated prostate specific antigen [PSA]
CPT/HCPCS: 76770

== ENCOUNTER → 2024-01-24 07:40 | Outpatient (REF) | payer MEDICARE, MEDICAID, SELFPAY ==
--- NOTE | 2024-01-24 07:43 | CA_ITS ---
Transthoracic Echocardiogram Patient (Last, First, Middle): Elissa Guo L Gender: Male Date of : 1965 Age: 58 Procedure Date: 01/24/2024 Procedure Type: Transthoracic Echocardiogram Location: OP Height: 187.96 cm Weight: 111.13 kg BSA: 2.37 m2 Heart Rate: 95 bpm BP: 122 / 70 mmHg Flatlock Sewing Machine Operator: KISHAN Referring MD: Rasheed Purvis MD Client Sales And Service Officer: Francois Palacio MD Symptoms: I42.9 - Cardiomyopathy, unspecified Study Quality: Adequate w contrast ECG Rhythm: Sinus Conclusions: - 1. Mildly reduced LV ejection fraction of 45-50% with mild LVH with impaired relaxation filling pattern 2. Normal cardiac valvular Dopplers 3. Mildly dilated ascending aorta at 3.8 cm 4. No gross pericardial effusion Findings Procedure Information Contrast agent, definity, is being given per protocol without apparent complications. The quality of the study was technically difficult. The study quality is limited by patients body habitus. Left Ventricle Normal left ventricular cavity size. There is mildly increased left ventricular wall thickness. The left ventricular systolic function is mildly decreased. The visually estimated ejection fraction is between 45-50%. Spectral Doppler is indicative of an impaired relaxation filling pattern. E/E prime ratio is between 8 and 15 consistent with indeterminate filling pressures. Right Ventricle Normal right ventricular cavity size and systolic function. Atria Both atria are normal in size. Interatrial shunt cannot be excluded. Aortic Valve The aortic valve structure and function is likely normal. There is no aortic valve stenosis. There is no aortic valve regurgitation. Mitral Valve Likely normal mitral valve structure and function. There is trace mitral valve regurgitation. There is no mitral valve stenosis. Pulmonic Valve The pulmonic valve was not well visualized. Tricuspid Valve The tricuspid valve was not well visualized. Tricuspid regurgitation envelope is inadequate for calculation of right ventricular systolic pressure. Normal right atrial pressure. Great Vessels The pulmonary artery was not well visualized. There is mild dilatation of the ascending aorta measuring 3.80 cm. Venous The inferior vena cava is normal in size and collapses greater than 50% with inspiration. Pericardium/Pleural The pericardium was not well visualized. Prior Study Comparison No prior study available for comparison. Measurements 2D Linear Measurements IVSd: 1.44 0.6-0.9/0.6-1.0 cm LVIDd: 4.16 3.9-5.3/4.2-5.9 cm LVIDd Index: 1.76 2.4-3.2/2.2-3.1 cm/m2 LVIDs: 3.29 2.0-3.6 cm LVPWd: 1.20 0.7-1.1 cm LA Diam: 3.60 2.7-3.8/3.0-4.0 cm LAIDs Index: 1.52 1.5-2.3 cm/m2 LV Mass: 252.14 67-162/88-224 g LV Mass Index: 106.39 43-95/49-115 g/m2 LVOT Diam: 2.70 3.0+(-)1.3 cm 2D Systolic Function EF 4C: 49.00 >55% EF 2C: 45.50 >55% EF BiP: 45.30 >55% Mitral Valve MV Pk E: 0.61 MV PK A: 0.86 MV Decel Time: 165.00 E/A: 0.70 E'Lateral: 5.00 E'Medial: 5.22 E/E' Med: 11.70 E/E' Lat: 12.30 PHT: 48.00 MVA PHT: 4.58 Decel Andrews: 3.70 Aortic Valve AoV Pk Yordy: 1.08 AoV Pk Grad: 5.00 DORIAN: 4.22 LVOT LVOT Pk Yordy: 0.80 LVOT Mn Yordy: 0.57 LVOT VTI: 0.16 LVOT Pk Grad: 3.00 LVOT Mn Grad: 1.00 LVOT Diam: 2.70 LVOT Area: 5.73 Diastolic Function MV Pk E: 0.61 MV Pk A: 0.86 E/A: 0.70 E'Medial: 5.22 E/E' Med: 11.70 E' Laterial: 5.00 E/E' Lat: 12.30 Right Ventricle TAPSE (mm): 25.40 TVS' Yordy: 11.70 Tricuspid Valve RA Press: 3.00 Great Vessels Aorta Sinus of Valsalva: 4.10 2.0-3.5 cm Ao Asc: 3.80 2.1-3.4 cm Pulmonary Veins Pulm Vein S/D 1.40 Pulmonary Valve PV Pk Yordy: 0.95 Peak PV Grad: 4.00 Updated in Other Vendor System with Status of Final Francois Palacio MD electronically signed on 01/25/2024 4:37:48 PM with status of Final
== END ==
LOC: HO.CARD 07:40
PROVIDERS: PCP Internal Medicine; Visit Provider Internal Medicine
DX: I42.9 Cardiomyopathy, unspecified (principal)
CPT/HCPCS: 93306; Q9957

== ENCOUNTER → 2024-01-24 07:43 | Outpatient (BNV) | payer MEDICARE, MEDICAID, SELFPAY | PROVIDERS: PCP Internal Medicine; Visit Provider Internal Medicine Cardiovascular Disease | DX: I42.8 Other cardiomyopathies (principal); I51.89 Other ill-defined heart diseases | CPT/HCPCS: 93306 ==

== ENCOUNTER 2024-02-05 08:40 | Outpatient (REF) | payer MEDICARE, MEDICAID, SELFPAY ==
[2024-02-05 14:07] LABS: Total Protein Urine Random < 7 mg/dL (<12)
[2024-02-05 19:30] LABS: Anion Gap 9 (12-20); Blood Urea Nitrogen 11 mg/dL (9-16); Calcium 8.8 mg/dL (8.4-10.2); Carbon Dioxide 24 mmol/L (22-29); Chloride 107 mmol/L (96-108); Estimated Glomerular Filt Rate > 60; Sodium 136 mmol/L (135-145)
== END 2024-02-05 08:41 | disposition home or self-care (01) ==
LOC: HO.HKASLDS 08:40
PROVIDERS: Visit Provider Internal Medicine Nephrology
DX: R97.20 Elevated prostate specific antigen [PSA] (principal); N28.1 Cyst of kidney, acquired; I10 Essential (primary) hypertension
CPT/HCPCS: 36415; 80051; 82310; 82565; 82570; 84156; 84520

== ENCOUNTER 2024-02-12 14:16 | Outpatient (AMB) | payer MEDICARE, MEDICAID, SELFPAY ==
--- NOTE | 2024-02-12 14:59 | HO.NEPHOV ---
Vital Signs 02/12/24 15:01 Height 6 ft 2 in Weight 249 lb BMI 32.0 BP 100/60 Blood Pressure Location Lt brachial Pulse 89 Pulse Source Pulse Oximeter Pulse Oximetry (%) 98 Oxygen Delivery Method Room Air Intake Visit Reasons: 6 mon follow up-Conf Incident Response Coordinator Required: Yes Incident Response Coordinator Language: Facilities Administrator Name: [id number] Information Interpreted: clinical only Accompanied by: Self / Same As Patient Allergies Penicillins [PENICILLINS] Allergy (Unknown, Verified 02/12/24 15:04) RASH lactose Adverse Reaction (Intermediate, Uncoded 12/31/23 10:06) Abdominal Pain HPI Comments Details: I had the privilege of seeing Elissa in follow up for his hypertension and renal cysts. He had pancreatic cyst as well and had been having yearly MRI. He had seen Dr. Brooks before and is here for me to continue his renal care. He does not have any flank pain, nephrolithiasis, hematuria. He has taken Jardiance before and had urinary symptoms from it and was discontinued. It was replaced by glipizide, the dose of which he has adjusted as he thought he had similar symptoms from it like Jardiance. He is on insulin and his blood sugar is fair. He is also on a Entresto and spironolactone. He denies any chest pain, shortness of breath, proximal nocturnal dyspnea, orthopnea, pedal edema or orthostatic symptoms. He claims to be compliant with medications. He denies taking any nonsteroidal anti-inflammatories. He has no family history of any ESRD or renal transplantation. He denies any significant proteinuria or retinopathy. His last serum creatinine has been stable [facility] Medical History Diverticulosis Osteoarthritis IBS (irritable bowel syndrome) Hyperlipidemia CAD (coronary artery disease) Nonischemic cardiomyopathy CHF (congestive heart failure) Sleep apnea Obesity (BMI 30.0-34.9) Left flank discomfort Upper abdominal pain GERD (gastroesophageal reflux disease) Elevated cholesterol HTN (hypertension) Constipation by delayed colonic transit Bleeding hemorrhoids Diabetes mellitus Asthma Surgical History H/O foot surgery History of esophagogastroduodenoscopy (EGD) History of tonsillectomy History of sinus surgery History of neck surgery History of carpal tunnel release History of release of tendon History of umbilical hernia repair History of colonoscopy Family History Mother History of colon cancer Brother History of liver cancer Maternal Aunt History of colon cancer Father No problems noted. 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 Review of Systems Const All systems reviewed & are unremarkable except as noted in HPI and below Physical Exam Vital Signs: Last Vital Signs Pulse 89 02/12/24 15:01 BP 100/60 02/12/24 15:01 Pulse Ox 98 02/12/24 15:01 Oxygen Delivery Method Room Air 02/12/24 15:01 BMI result Body Mass Index 32.0 Const General: comfortable and no acute distress Orientation/consciousness: patient oriented x3 HEENT Head: Yes normocephalic Mouth: Normal oral and palatal mucosa present Eyes EOM: EOMs intact bilaterally Neck Neck: Yes supple Resp Auscultation: clear to auscultation bilaterally Cardio Jugular venous distension: no JVD Rate: regular rate GI Palpation (GI): Soft to palpation Auscultation: normal bowel sounds General: Yes no CVA tenderness Back/Spine/Pelvis Back: no CVA tenderness Skin General skin exam: no rashes or lesions noted Neuro General: patient oriented x3 and moves all extremities Extrem General: Yes no pedal edema Results Reviewed Nephrology Results: Sodium 136 mmol/L (135-145) 02/05/24 Potassium 4.0 mmol/L (3.3-5.1) 02/05/24 Chloride 107 mmol/L (96-108) 02/05/24 Carbon Dioxide 24 mmol/L (22-29) 02/05/24 BUN 11 mg/dL (9-16) 02/05/24 Creatinine 0.90 mg/dL (0.5-1.4) 02/05/24 Calcium 8.8 mg/dL (8.4-10.2) 02/05/24 Urine Creatinine 52.10 mg/dL 02/05/24 Protein/Creatinin Ratio TNP 02/05/24 Assessment & Plan Assessment & Plan (1) Renal cyst: Code(s): N28.1 - Cyst of kidney, acquired Category: Medical (2) HTN (hypertension): Code(s): I10 - Essential (primary) hypertension Category: Medical Qualifiers: Hypertension type: primary hypertension Qualified Code(s): I10 - Essential (primary) hypertension Plan Elissa has longstanding hypertension and is on multiple antihypertensive medications. He needs to lose weight. He needs to cut back sodium in the diet. He denied any cardiomyopathy. He has renal cysts for long time which has been followed by yearly imaging when he gets the scanned for pancreatic cyst. He is not known to have any significant proteinuria. He had biopsy of the renal lesions which were unremarkable as per the patient. I ordered blood work and urine studies. Renal USS will be done next visit. Answered all questions. Follow-up given. Orders: Orders Creatinine 6 Months I10 - Essential (primary) hypertension, N28.1 - Cyst of kidney, acquired Blood Urea Nitrogen 6 Months I10 - Essential (primary) hypertension, N28.1 - Cyst of kidney, acquired Electrolytes 6 Months I10 - Essential (primary) hypertension, N28.1 - Cyst of kidney, acquired Protein Creatinine Ratio, Ur 6 Months I10 - Essential (primary) hypertension, N28.1 - Cyst of kidney, acquired Coding Level of Care Code Est Pt Level 4 (67860) Diagnoses Renal cyst N28.1 Primary hypertension I10 Hypertension type: primary hypertension
[2024-02-12 15:01] VITALS: BP 100/60; PULSE 89; O2SAT 98; BMI 32.0
== END 2024-02-12 15:25 | disposition home or self-care (01) ==
LOC: HO.HKAS 14:17
PROVIDERS: PCP Internal Medicine; Visit Provider Internal Medicine Nephrology
DX: N28.1 Cyst of kidney, acquired (principal); I10 Essential (primary) hypertension
CPT/HCPCS: 99214

== ENCOUNTER → 2024-02-12 14:16 | Outpatient (BNVA) | payer MEDICARE, MEDICAID, SELFPAY | PROVIDERS: PCP Internal Medicine; Visit Provider Internal Medicine Nephrology | DX: N28.1 Cyst of kidney, acquired (principal); I10 Essential (primary) hypertension; K86.2 Cyst of pancreas | CPT/HCPCS: 99212 ==

== ENCOUNTER 2024-02-13 14:26 | Outpatient (AMB) | payer MEDICARE, MEDICAID, SELFPAY ==
--- NOTE | 2024-02-13 14:28 | A.OFFVIS_ITS ---
Vital Signs 02/13/24 14:29 Height 6 ft 2 in Weight 247 lb 5.738 oz BMI 31.8 BP 92/54 L Blood Pressure Location Lt brachial Position Sitting Intake Visit Reasons: 3 mth f/up s/p echo Rehab Technician Required: Yes Rehab Technician Name: Sana [id number] Accompanied by: Self / Same As Patient Allergies Penicillins [PENICILLINS] Allergy (Unknown, Verified 02/12/24 15:04) RASH lactose Adverse Reaction (Intermediate, Uncoded 12/31/23 10:06) Abdominal Pain Medication List - Last Reconciled 02/13/24 by Rasheed Purvis MD albuterol sulfate 90 mcg/actuation 2 puffs inhalation Q4H PRN alprazolam 1 tab PO BID PRN aspirin (Aspirin Childrens) 81 mg PO DAILY atorvastatin 80 mg PO DAILY blood sugar diagnostic (FreeStyle Lite Strips) As directed brimonidine 0.15% 1 drp ophthalmic (eye) Q8H bupropion HCl XL 150 mg PO QAM carvedilol 6.25 mg PO BID cholecalciferol (vitamin D3) 25 mcg PO DAILY cyclobenzaprine 10 mg PO DAILY dorzolamide 2% 2 drps ophthalmic (eye) DAILY duloxetine 60 mg PO DAILY finasteride (Proscar) 5 mg PO DAILY 90 days fluticasone furoate 100 mcg/actuation (Arnuity Ellipta) 1 inh inhalation DAILY fluticasone propionate 50 mcg/actuation 1 spray intranasal BID glipizide 5 mg PO BID hydrocortisone 2.5% (Procto-Med HC) 1 appl TN BID-QID PRN insulin glargine U-300 conc (Toujeo Max U-300 SoloStar) 70 units subcut DAILY ketotifen fumarate 0.025%(0.035%) 1 drp ophthalmic (eye) BID latanoprost 0.005% 1 drp ophthalmic (eye) BEDTIME levocetirizine 5 mg PO DAILY linaclotide (Linzess) 290 mcg PO DAILY PRN magnesium oxide 400 mg PO DAILY metformin ER 750 mg PO DAILY methadone 10 mg PO TID PRN montelukast (Singulair) 10 mg PO DAILY multivitamin with folic acid 400 mcg (Tab-A-Kelsie) 1 tab PO DAILY naloxone 4 mg/actuation (Narcan) 1 spray intranasal DAILY ondansetron HCl 4 mg PO Q8H PRN pantoprazole 40 mg PO BID pen needle, diabetic (UltiCare Pen Needle) As directed pen needle, diabetic (Comfort EZ Pen [place]) As directed prazosin 5 mg PO DAILY sacubitril-valsartan 49-51 mg (Entresto) 1 tab PO BID spironolactone 25 mg PO DAILY tamsulosin 0.4 mg PO BEDTIME testosterone enanthate 150 mg IM Q2W tirzepatide (Mounjaro) 12.5 mg subcut DAILY tizanidine 4 mg PO TID PRN zolpidem 10 mg PO BEDTIME PRN HPI Comments Details: Elissa returns for follow-up. Patient of [facility] trying to switch to . Essentially, he has undergone a comprehensive cardiac workup including echocardiogram, stress test, cardiac CTA, MRI and PYP scan. However, not entirely clear as to how this started and if it truly had any symptoms. Any case currently not having any cardiac symptoms apart from some dizziness.. Many comorbidities and on polypharmacy. [facility] Medical History Diverticulosis Osteoarthritis IBS (irritable bowel syndrome) Hyperlipidemia CAD (coronary artery disease) Nonischemic cardiomyopathy CHF (congestive heart failure) Sleep apnea Obesity (BMI 30.0-34.9) Left flank discomfort Upper abdominal pain GERD (gastroesophageal reflux disease) Elevated cholesterol HTN (hypertension) Constipation by delayed colonic transit Bleeding hemorrhoids Diabetes mellitus Asthma Surgical History H/O foot surgery History of esophagogastroduodenoscopy (EGD) History of tonsillectomy History of sinus surgery History of neck surgery History of carpal tunnel release History of release of tendon History of umbilical hernia repair History of colonoscopy Family History Mother History of colon cancer Brother History of liver cancer Maternal Aunt History of colon cancer Father No problems noted. 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 Review of Systems Const Denies chills, Denies fatigue, Denies fever(s), Denies weight gain and Denies weight loss ENT Denies dizziness Card Reports chest pain, Denies leg edema, Denies lightheadedness, Denies palpitations, Denies dyspnea on exertion, Denies orthopnea and Denies other Resp Denies cough and Denies dyspnea on exertion GI Denies hematochezia and Denies change in stool character Musc Denies abnormal gait, Denies muscle weakness, Denies numbness, Denies radiating pain into limb and Denies tingling Neuro Denies abnormal gait, Denies dizziness, Denies numbness and Denies tingling Endo Denies fatigue and Denies palpitations Physical Exam Vital Signs: Last Vital Signs BP 92/54 L 02/13/24 14:29 BMI result Body Mass Index 31.8 Const General: comfortable and no acute distress Orientation/consciousness: patient oriented x3 HEENT Other: Unremarkable Head: Yes normal to inspection Neck Neck: Yes normal visual inspection Chest Chest palpation & inspection: normal inspection of the chest Resp Auscultation: clear to auscultation bilaterally Cardio Palpation: normal PMI Heart sounds: S1 normal heart sound present, S2 normal heart sound present, no gallops, no murmurs and no rubs GI Palpation (GI): Soft to palpation Back/Spine/Pelvis Other: unremarkable Skin General skin exam: no rashes or lesions noted Neuro General: patient oriented x3 Extrem General: Yes normal to inspection Psych Mental Status: mental status grossly normal Assessment & Plan Assessment & Plan (1) Cardiomyopathy: Code(s): I42.9 - Cardiomyopathy, unspecified Category: Medical (2) Atherosclerotic cardiovascular disease: Code(s): I25.10 - Atherosclerotic heart disease of [place] coronary artery without angina pectoris Category: Medical Plan Cardiac studies reviewed. Coronary CT from 06/2023-minimal stenosis in the ostial, proximal LAD, proximal circumflex, distal circumflex, proximal RCA with short segment of calcified plaque. Dilated main pulmonary artery up to 3.2 cm, possible pulmonary hypertension in setting of DHARA. Cardiac MRI 02/2023 suggestive nonischemic cardiomyopathy. Study limited due to motion artifact/arrhythmia. Mildly diminished LVEF at 47%. Mild wall thickening, greatest in the basal to mid septum. Late gadolinium enhancement with mildly increased mid wall signal in the basal to mid inferolateral wall and possibly the basal septum, possible infiltrative disease. Myocarditis not excluded. No evidence of infarct. Normal RV size and function. Overall, he has got mild coronary disease mild cardiomyopathy. Cardiac PYP scan 2022- not suggestive of TTR amyloidosis. Holter 2023-sinus rhythm, PACs and PVCs. Echocardiogram 01/2024 with LVEF of 45-50%. Overall, mild cardiomyopathy, mild coronary disease. Mainly risk factor modification considering his many comorbidities. For meds, he is on carvedilol, Entresto, statins and that seems to be very reasonable regimen for him. With regard to question of dizziness could be medication related as he is also on several other medications including prazosin, Flomax, Proscar which could all decrease the blood pressure. Advised him to discuss with the ordering provider's. Coding Level of Care Code Est Pt Level 4 (70947) Diagnoses Cardiomyopathy I42.9 Atherosclerotic cardiovascular disease I25.10
[2024-02-13 14:29] VITALS: BP 92/54; BMI 31.8
== END 2024-02-13 14:52 | disposition home or self-care (01) ==
LOC: HO.HCS 14:26
PROVIDERS: PCP Internal Medicine; Visit Provider Internal Medicine
DX: I42.9 Cardiomyopathy, unspecified (principal); I25.10 Atherosclerotic heart disease of native coronary artery without angina pectoris
CPT/HCPCS: 99214

== ENCOUNTER → 2024-02-13 14:26 | Outpatient (BNVA) | payer MEDICARE, MEDICAID, SELFPAY | PROVIDERS: PCP Internal Medicine; Visit Provider Internal Medicine | DX: I42.9 Cardiomyopathy, unspecified (principal); I25.10 Atherosclerotic heart disease of native coronary artery without angina pectoris | CPT/HCPCS: 99212 ==

== ENCOUNTER 2024-03-03 08:39 | Outpatient (AMB) | payer MEDICARE, MEDICAID, SELFPAY ==
--- NOTE | 2024-03-03 08:50 | MHC.OFFVIS ---
Intake Visit Reasons: INJ- RT knee Durolane injection Intake Note: Elissa a 58 year old male who presents today for a right knee Durolane injection. Allergies Penicillins [PENICILLINS] Allergy (Unknown, Verified 03/03/24 09:00) RASH lactose Adverse Reaction (Intermediate, Uncoded 03/03/24 09:00) Abdominal Pain HPI HPI INJ- RT knee Durolane injection: Details: 58-year-old gentleman returns to the office today for right knee pain. Was last seen in November where he had some relief with drooling injections from June. Developed increased pain with activities and requested to have repeat gel injections. [facility] Medical History (Updated 03/03/24 @ 08:59 by CADEN Gaona) Diverticulosis Osteoarthritis IBS (irritable bowel syndrome) Hyperlipidemia CAD (coronary artery disease) Nonischemic cardiomyopathy CHF (congestive heart failure) Sleep apnea Obesity (BMI 30.0-34.9) Left flank discomfort Upper abdominal pain GERD (gastroesophageal reflux disease) Elevated cholesterol HTN (hypertension) Constipation by delayed colonic transit Bleeding hemorrhoids Diabetes mellitus Asthma Surgical History (Updated 03/03/24 @ 08:59 by CADEN Gaona) History of dacryocystorhinostomy H/O foot surgery History of esophagogastroduodenoscopy (EGD) History of tonsillectomy History of sinus surgery History of neck surgery History of carpal tunnel release History of release of tendon History of umbilical hernia repair History of colonoscopy Family History Mother History of colon cancer Brother History of liver cancer Maternal Aunt History of colon cancer Father No problems noted. 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 Tenderness along the medial and lateral joint line. Full ROM with crepitus. Negative Pearl?s. No ligamentous laxity. NVI. Office Procedures AMB Joint Injection/Aspiration Joint Injection/Aspiration Details: Right knee duralane and injection with cortisone Primary Site: right knee Prep: site was prepped using aseptic technique, ethochloride spray was applied and injection warnings given Injected: 40 mg of, DepoMedrol, with 8 mL of, 1% plain lidocaine and in the joint Approach Used: anterolateral Procedure: The patient tolerated the procedure well and there was some relief with the local anesthesia Coding 39082 - Glenohumeral/Tronchanteric Bursa/Intraarticular Procedure code (CPT) selection complete Assessment & Plan Assessment & Plan (1) Osteoarthritis of right knee: Code(s): M17.11 - Unilateral primary osteoarthritis, right knee Category: Medical Qualifiers: Osteoarthritis type: primary Qualified Code(s): M17.11 - Unilateral primary osteoarthritis, right knee Plan: We discussed options today, which include steroid injection. The patient did consent to move forward with the injection, which was tolerated well.? I recommended rest, ice and elevation and OTC antiinflammatories prn for discomfort. If symptoms persist over the next 6-8 weeks, they will contact our office, otherwise, prn We also discussed their diabetes and the effect the steroid can have on thier blood glucose levels; therefore, they will continue to monitor these very closely over the next 72 hours He would like to repeat cortisone and gel injection again in 6 months. Coding Level of Care Code Procedure Only Diagnoses Primary osteoarthritis of right knee M17.11 Osteoarthritis type: primary CPT Codes Coding - Joint 7: 62072 - Glenohumeral/Tronchanteric Bursa/Intraarticular ([id number])
== END 2024-03-03 09:07 | disposition home or self-care (01) ==
PROVIDERS: PCP Internal Medicine; Visit Provider Physician Assistant
DX: M17.11 Unilateral primary osteoarthritis, right knee (principal)
CPT/HCPCS: 20610

== ENCOUNTER → 2024-03-03 08:39 | Outpatient (BNVA) | payer MEDICARE, MEDICAID, SELFPAY | PROVIDERS: PCP Internal Medicine; Visit Provider Physician Assistant | DX: M17.11 Unilateral primary osteoarthritis, right knee (principal) | CPT/HCPCS: 20610; J1010; J2003; J7318 ==

== ENCOUNTER 2024-03-31 08:46 | Outpatient (REF) | payer MEDICARE, MEDICAID, SELFPAY ==
[2024-03-31 10:21] LABS: PSA,Total (Free>4and<10) 0.84 ng/mL (0.00-4.00)
== END 2024-03-31 08:47 | disposition home or self-care (01) ==
LOC: HO.LAB 08:46
PROVIDERS: PCP Internal Medicine; Visit Provider Urology
DX: N40.1 Benign prostatic hyperplasia with lower urinary tract symptoms (principal); N40.0 Benign prostatic hyperplasia without lower urinary tract symptoms; R97.20 Elevated prostate specific antigen [PSA]; Z12.5 Encounter for screening for malignant neoplasm of prostate
CPT/HCPCS: 36415; 84153

== ENCOUNTER 2024-04-07 08:01 | Outpatient (AMB) | payer MEDICARE, MEDICAID, SELFPAY ==
--- NOTE | 2024-04-07 08:03 | MHC.OFFVIS ---
Intake Visit Reasons: 6m/PSA(PSA?) Intake Note: Patient is present for elevated PSA Urology Med: Finasteride, tamsulosin Antibiotic Allergy: Penicillins Blood Thinner: LABS: 03/31- PSA: 0.84 Superintendent Building Required: Yes Superintendent Building Language: Beamster Services: Superintendent Building Present Superintendent Building Name: Gerardo Brown Information Interpreted: non-clinical & clinical Allergies Penicillins [PENICILLINS] Allergy (Unknown, Verified 04/07/24 08:13) RASH lactose Adverse Reaction (Intermediate, Uncoded 04/07/24 08:13) Abdominal Pain Medication List - Last Reconciled 04/07/24 by Stephanie Flowers MD albuterol sulfate 90 mcg/actuation 2 puffs inhalation Q4H PRN alprazolam 1 tab PO BID PRN aspirin 81 mg PO DAILY atorvastatin 80 mg PO DAILY blood sugar diagnostic (FreeStyle Lite Strips) As directed brimonidine 0.15% 1 drp ophthalmic (eye) Q8H bupropion HCl XL 150 mg PO QAM carvedilol 6.25 mg PO BID cholecalciferol (vitamin D3) 25 mcg PO DAILY cyclobenzaprine 10 mg PO DAILY dorzolamide 2% 2 drps ophthalmic (eye) DAILY duloxetine 60 mg PO DAILY finasteride (Proscar) 5 mg PO DAILY 90 days fluticasone furoate 100 mcg/actuation (Arnuity Ellipta) 1 inh inhalation DAILY fluticasone propionate 50 mcg/actuation 1 spray intranasal BID glipizide 5 mg PO BID hydrocortisone 2.5% (Procto-Med HC) 1 appl ID BID-QID PRN ibuprofen 800 mg PO Q8H PRN 30 days insulin glargine U-300 conc (Toujeo Max U-300 SoloStar) 70 units subcut DAILY isosorbide mononitrate ER 30 mg PO DAILY ketotifen fumarate 0.025%(0.035%) 1 drp ophthalmic (eye) BID latanoprost 0.005% 1 drp ophthalmic (eye) BEDTIME levocetirizine 5 mg PO DAILY linaclotide (Linzess) 290 mcg PO DAILY PRN magnesium oxide 400 mg PO DAILY metformin ER 750 mg PO DAILY methadone 10 mg PO TID PRN montelukast (Singulair) 10 mg PO DAILY multivitamin with folic acid 400 mcg (Tab-A-Kelsie) 1 tab PO DAILY naloxone 4 mg/actuation (Narcan) 1 spray intranasal DAILY ondansetron HCl 4 mg PO Q8H PRN pantoprazole 40 mg PO BID pen needle, diabetic (UltiCare Pen Needle) As directed pen needle, diabetic (Comfort EZ Pen Argenta) As directed prazosin 5 mg PO DAILY sacubitril-valsartan 49-51 mg (Entresto) 1 tab PO BID spironolactone 25 mg PO DAILY testosterone enanthate 150 mg IM Q2W tirzepatide (Mounjaro) 12.5 mg subcut DAILY tizanidine 4 mg PO TID PRN zolpidem 10 mg PO BEDTIME PRN HPI Comments Details: 04/07/24--Elissa is a 59-year-old Niuean-speaking male who is here for 6 month follow-up. He was referred due to elevated PSA. He had prostate biopsy done which pathology came back benign. He was started on Proscar. The patient is on methadone and testosterone replacement prescribed by his PCP. I have discussed renal ultrasound performed 01/04/2024 kidneys are within normal limits prostatomegaly, PVR acceptable. He is also prescribed tamsulosin and states that his etl application developer discussed that the tamsulosin in addition to his other medications is making his blood pressure too low. Will continue to monitor PSA. Discontinue tamsulosin continue Proscar follow-up in 6 months. US Retroperitoneal: 01/02/24--bilateral small simple cysts. Enlarged prostate, estimated volume 43.2 mL. Small postvoid bladder residual of 31.5 mL. Review of chart: 10/01/23--Elissa is a 58-year-old male who is here for new patient visit. The patient is Niuean-speaking. Certified residential real estate assistant service used during this visit. Past medical history diabetes, he is on testosterone replacement, he states his PCP prescribes his testosterone. He was followed by [facility] for BPH. He had a recent prostate biopsy on 09/18/2023 due to elevated PSA of 5.3. Review of pathology 12 biopsies were done all came back benign prostatic tissue. The patient has been on tamsulosin 0.4 mg. I have discussed trial of Proscar 5 mg daily. The patient asked about [id number] supplements that may be helpful. I discussed use of saw palmetto. Bladder scan PVR 47 mL. Will continue to monitor PSA. Will check a renal bladder ultrasound. Follow-up in 6 months. [facility] Medical History Diverticulosis Osteoarthritis IBS (irritable bowel syndrome) Hyperlipidemia CAD (coronary artery disease) Nonischemic cardiomyopathy CHF (congestive heart failure) Sleep apnea Obesity (BMI 30.0-34.9) Left flank discomfort Upper abdominal pain GERD (gastroesophageal reflux disease) Elevated cholesterol HTN (hypertension) Constipation by delayed colonic transit Bleeding hemorrhoids Diabetes mellitus Asthma Surgical History History of dacryocystorhinostomy H/O foot surgery History of esophagogastroduodenoscopy (EGD) History of tonsillectomy History of sinus surgery History of neck surgery History of carpal tunnel release History of release of tendon History of umbilical hernia repair History of colonoscopy Family History Mother History of colon cancer Brother History of liver cancer Maternal Aunt History of colon cancer Father No problems noted. 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 Review of Systems Const All systems reviewed & are unremarkable except as noted in HPI and below Reports no additional complaints Eyes Reports no additional complaints ENT Reports no additional complaints Card Reports no additional complaints Resp Reports no additional complaints GI Reports no additional complaints Reports as per HPI Musc Reports no additional complaints Skin/Breast Reports system reviewed and no additional complaints, except as documented Neuro Reports no additional complaints Psych Reports no additional complaints Endo Reports no additional complaints Abdi/Lymph Reports no additional complaints Aller/Immun Reports no additional complaints Results AMB Urinalysis, Automated UA Leukoctes 0 Sheryl/uL Last Edit by Analilia Tee CMA on 04/07/24 08:23 UA Nitrite Negative Last Edit by Analilia Tee CMA on 04/07/24 08:23 UA Urobilinogen 0.2 mg/dL Last Edit by Analilia Tee, GEORGE on 04/07/24 08:23 UA Protein 0 mg/dL Last Edit by Analilia Tee, CLINICAL ACCOUNT EXECUTIVE on 04/07/24 08:23 UA pH 5.5 Last Edit by Analilia Tee, CLINICAL ACCOUNT EXECUTIVE on 04/07/24 08:23 UA Blood 0 Bonifacio/uL Last Edit by Analilia Tee, CLINICAL ACCOUNT EXECUTIVE on 04/07/24 08:23 UA Specific Teague 1.025 Last Edit by Analilia Tee, CLINICAL ACCOUNT EXECUTIVE on 04/07/24 08:23 UA Ketone Negative Last Edit by Analilia Tee, GEORGE on 04/07/24 08:23 UA Bilirubin 0 mg/dL Last Edit by Analilia Tee, CLINICAL ACCOUNT EXECUTIVE on 04/07/24 08:23 UA Glucose 0 mg/dL Last Edit by Analilia Tee, GEORGE on 04/07/24 08:23 Results Reviewed Results Reviewed: Laboratory Last Values Urine pH (Auto) 5.5 04/07/24 08:20 Specific Teague (Auto) 1.025 04/07/24 08:20 Urine Protein (Auto) 0 mg/dL 04/07/24 08:20 Glucose (UA)(Auto) 0 mg/dL 04/07/24 08:20 Urine Ketones (Auto) Negative 04/07/24 08:20 Urine Blood (Auto) 0 Bonifacio/uL 04/07/24 08:20 Urine Nitrite (Auto) Negative 04/07/24 08:20 Urine Bilirubin (Auto) 0 mg/dL 04/07/24 08:20 Urine Urobilinogen (Auto) 0.2 mg/dL 04/07/24 08:20 Leukocyte Esterase (Auto) 0 Sheryl/uL 04/07/24 08:20 Date of Service: 01/02/24 US RETROPERITONEAL COMPLETE (RENAL) CLINICAL INFORMATION: Benign prostatic hyperplasia without lower urinary tract symptoms. COMPARISON: Ultrasound abdomen complete 06/05/2023. CT abdomen and pelvis 02/02/2023. Ultrasound abdomen complete with elastography 08/25/2022. TECHNIQUE: Real-time imaging of the kidneys and bladder. FINDINGS: RIGHT KIDNEY: 12.7 x 5.9 x 6.0 cm (SAG x AP x TRV). The kidney is normal in size, contour, and echogenicity. Renal cortical thickness is normal. No renal calculi or hydronephrosis. Benign-appearing renal cysts measuring up to 2.6 cm. No follow-up imaging is recommended. LEFT KIDNEY: 11.4 x 6.3 x 5.5 cm (SAG x AP x TRV). The kidney is normal in size, contour, and echogenicity. Renal cortical thickness is normal. No renal calculi or hydronephrosis. Benign-appearing renal cyst measuring 0.9 cm. No follow up imaging is recommended. BLADDER: Well distended and normal. Bilateral ureteral jets are demonstrated. Prevoid bladder volume is 513 mL. Postvoid bladder volume is 31.5 mL. Enlarged prostate, volume 43.2 mL. IMPRESSION: 1. Prostatomegaly. 2. Small postvoid bladder residual of 31.5 mL. Assessment & Plan Assessment & Plan (1) BPH loc w urin obs/LUTS: Code(s): N40.1 - Benign prostatic hyperplasia with lower urinary tract symptoms Category: Medical (2) BPH with elevated PSA: Code(s): N40.0 - Benign prostatic hyperplasia without lower urinary tract symptoms; R97.20 - Elevated prostate specific antigen [PSA] Category: Medical Plan He is also prescribed tamsulosin and states that his etl application developer discussed that the tamsulosin in addition to his other medications is making his blood pressure too low. Will continue to monitor PSA. Discontinue tamsulosin continue Proscar follow-up in 6 months. Orders: Orders Prostate Specific Antigen 03/31/24 N40.0 - Benign prostatic hyperplasia without lower urinary tract symptoms, R97.20 - Elevated prostate specific antigen [PSA] AMB Urinalysis Automated Today Z13.9 - Encounter for screening, unspecified Medications: Refilled finasteride (Proscar) 5 mg PO DAILY 90 days 90 tabs 3RF Discontinued tamsulosin Discontinued Reason: Doctor's Order 0.4 mg PO BEDTIME 90 caps 2RF Coding Level of Care Code Est Pt Level 4 (85491) Diagnoses BPH loc w urin obs/LUTS N40.1 BPH with elevated PSA N40.0; R97.20
== END 2024-04-07 08:46 | disposition home or self-care (01) ==
PROVIDERS: PCP Internal Medicine; Visit Provider Urology
DX: N40.1 Benign prostatic hyperplasia with lower urinary tract symptoms (principal); N40.0 Benign prostatic hyperplasia without lower urinary tract symptoms; R97.20 Elevated prostate specific antigen [PSA]; Z13.9 Encounter for screening, unspecified
CPT/HCPCS: 99214

== ENCOUNTER → 2024-04-07 08:01 | Outpatient (BNVA) | payer MEDICARE, MEDICAID, SELFPAY | PROVIDERS: PCP Internal Medicine; Visit Provider Urology | DX: R97.20 Elevated prostate specific antigen [PSA] (principal); N40.0 Benign prostatic hyperplasia without lower urinary tract symptoms | CPT/HCPCS: 81003; 99212 ==

== ENCOUNTER 2024-05-09 07:36 | Emergency (ER) | payer MEDICARE, MEDICAID, SELFPAY ==
--- NOTE | ~2024-05-09 | XR_ITS ---
EXAMINATION: XR FOOT, RIGHT CLINICAL INFORMATION: Foot pain-no further clinical information provided. COMPARISON: 10/02/2022. TECHNIQUE: AP, lateral, and oblique views of the right foot. FINDINGS: Normal bone mineralization. No fracture, dislocation, or suspicious bone lesion. No malalignment. Compression screw in the proximal fifth metatarsal, fixating a healed proximal metaphyseal fracture. Hardware appears intact and well seated. There is spurring of the base of the fifth metatarsal. No regions of focal osteopenia, periostitis, permeative bony change to suggest osteomyelitis. Normal plantar arch. Small calcaneal plantar spur and tiny Achilles enthesophyte. Soft tissues appear normal without abnormal gas or foreign body. There are diffuse vascular calcifications. XR/XR foot RT min 3V IMPRESSION: No acute findings right foot. Chronic findings as detailed. No change from 10/02/2022. Electronically signed by: Paul Suarez MD 05/09/2024 08:24 AM MELLISA
[2024-05-09 07:51] VITALS: BP 136/76; PULSE 93; RESP 16; TEMP 36.6; O2SAT 99; BMI 31.8
--- NOTE | 2024-05-09 08:27 | ED.EXTPRO ---
HPI - Extremity Problem General Chief complaint: Extremity Problem Stated complaint: foot pain Time Seen by Provider: 05/09/24 08:09 Source: patient, old records reviewed and account underwriter Mode of arrival: ambulatory Limitations: no limitations History of Present Illness ED Provider: ELSA CHERY Narrative: 59 yo male with PMH of MGUS, BPH, cardiomyopathy, HTN, GERD, DM, asthma here with c/o R foot x 1 week no trauma no rash no lesions. He states it hurts to walk especially in the AM. He wanted to see his orthopedics doctor for this but they state he needs a referral. He has no other complaints. Has never had plantar fasciitis before. MD Complaint: other (foot pain) Onset (ago): week(s) (1) Pain Consistency: constant Location: right and other (foot) Quality: burning and aching Radiation: none Relieving factors: immobilization Exacerbating factors: weight bearing and walking Associated symptoms: denies other symptoms Related Data Home Medications ?Medication ?Instructions ?Recorded ?Confirmed methadone 10 mg tablet 10 mg PO TID PRN Pain 02/19/20 04/17/24 montelukast 10 mg tablet 10 mg PO DAILY 02/19/20 04/17/24 (Singulair) duloxetine 60 mg capsule,delayed 60 mg PO DAILY 09/10/20 04/17/24 release zolpidem 10 mg tablet 10 mg PO BEDTIME PRN insomnia 08/12/21 04/17/24 albuterol sulfate 90 mcg/actuation 2 puff inhalation Q4H PRN Wheezing 10/27/21 04/17/24 aerosol inhaler alprazolam 2 mg tablet 1 tab PO BID PRN anxiety 10/27/21 04/17/24 latanoprost 0.005 % eye drops 1 drp ophthalmic (eye) BEDTIME 10/27/21 04/17/24 multivitamin with folic acid 400 1 tab PO DAILY 10/27/21 04/17/24 mcg tablet (Tab-A-Kelsie) naloxone 4 mg/actuation nasal 1 spray intranasal DAILY 10/27/21 04/17/24 spray (Narcan) blood sugar diagnostic (FreeStyle #10 ea 07/10/22 04/17/24 Lite Strips) magnesium oxide 400 mg (241.3 mg 400 mg PO DAILY 07/10/22 04/17/24 magnesium) tablet metformin 750 mg tablet,extended 750 mg PO DAILY 07/10/22 04/17/24 release 24 hr pantoprazole 40 mg tablet,delayed 40 mg PO BID 07/10/22 04/17/24 release pen needle, diabetic 33 gauge x #100 ea 07/10/22 04/17/2404/19 (Comfort EZ Pen [place]) testosterone enanthate 200 mg/mL 150 mg IM Q2W 07/10/22 04/17/24 intramuscular oil tizanidine 4 mg tablet 4 mg PO TID PRN Pain 07/10/22 04/17/24 linaclotide 290 mcg capsule 290 mcg PO DAILY PRN Constipation 12/11/22 04/17/24 (Linzess) pen needle, diabetic 31 gauge x #1,200 ea 12/11/22 04/17/2408/29 (UltiCare Pen Needle) levocetirizine 5 mg tablet 5 mg PO DAILY 01/25/23 04/17/24 spironolactone 25 mg tablet 25 mg PO DAILY 01/25/23 04/17/24 carvedilol 6.25 mg tablet 3.1 mg PO BID 04/11/23 04/17/24 sacubitril 49 mg-valsartan 51 mg 1 tab PO BID 04/11/23 04/17/24 tablet (Entresto) brimonidine 0.15 % eye drops 1 drp ophthalmic (eye) Q8H 05/08/23 04/17/24 cholecalciferol (vitamin D3) 25 25 mcg PO DAILY 05/08/23 04/17/24 mcg (1,000 unit) capsule ketotifen fumarate 0.025 % (0.035 1 drp ophthalmic (eye) BID 05/08/23 04/17/24 %) eye drops insulin glargine U-300 conc 300 70 unit subcut DAILY 08/14/23 04/17/24 unit/mL (3 mL) subcutaneous pen (Toujeo Max U-300 SoloStar) cyclobenzaprine 5 mg tablet 10 mg PO DAILY 11/13/23 04/17/24 atorvastatin 80 mg tablet 80 mg PO DAILY 12/03/23 04/17/24 dorzolamide 2 % eye drops 2 drp ophthalmic (eye) DAILY 12/03/23 04/17/24 fluticasone furoate 100 1 inh inhalation DAILY 12/03/23 04/17/24 mcg/actuation blister powder for inhalation (Arnuity Ellipta) fluticasone propionate 50 1 spray intranasal BID 12/03/23 04/17/24 mcg/actuation nasal spray,suspension glipizide 5 mg tablet 5 mg PO BID 12/03/23 04/17/24 ondansetron HCl 4 mg tablet 4 mg PO Q8H PRN Nausea 12/03/23 04/17/24 prazosin 5 mg capsule 5 mg PO DAILY 12/03/23 04/17/24 tirzepatide 10 mg/0.5 mL 15 mg subcut DAILY 12/20/23 04/17/24 subcutaneous pen injector (Tamela) bupropion HCl 150 mg 24 hr tablet, 150 mg PO QAM 02/13/24 04/17/24 extended release aspirin 81 mg tablet,delayed 81 mg PO DAILY 04/07/24 04/17/24 release isosorbide mononitrate 30 mg 30 mg PO DAILY 04/07/24 04/17/24 tablet,extended release 24 hr Previous Rx's ?Medication ?Instructions ?Recorded hydrocortisone 2.5 % topical cream 1 appl SC BID-QID PRN hemorrhoids 07/09/20 with perineal applicator #30 grams (Procto-Med HC) ibuprofen 800 mg tablet 800 mg PO Q8H PRN pain 30 days #90 03/07/24 tabs finasteride 5 mg tablet (Proscar) 5 mg PO DAILY 90 days #90 tabs 04/07/24 lidocaine 4 % topical gel 1 appl topical BID PRN pain #30 05/09/24 grams Allergies Allergy/AdvReac Type Severity Reaction Status Date / Time Penicillins [PENICILLINS] Allergy Unknown RASH Verified 05/09/24 07:53 lactose AdvReac Intermediate Abdominal Uncoded 05/09/24 07:53 Pain Review of Systems Review of Systems: Constitutional : No Fever, No Chills ENT/Mouth : No Ear Pain, No Hoarseness, No sore throat Eyes: No Eye Pain, No Swelling, No Redness, No Foreign Body Cardiovascular : No Chest Pain, No SOB Respiratory : No Cough, No Dyspnea Gastrointestinal : No Nausea, No Vomiting, No Diarrhea, No abdominal Pain Genitourinary : No Dysuria, No Hematuria Musculoskeletal : positive joint pain, No Myalgias, No Joint Swelling Skin : No Skin lacerations, No rash Neuro : No Weakness, No Numbness, No Loss of Consciousness, No Dizziness, No Headache All other systems reviewed and are negative [facility] Past Medical History Attestation statement: The following information was validated with the patient. Source: old records reviewed Medical History Diverticulosis Osteoarthritis IBS (irritable bowel syndrome) Hyperlipidemia CAD (coronary artery disease) Nonischemic cardiomyopathy CHF (congestive heart failure) Sleep apnea Obesity (BMI 30.0-34.9) Left flank discomfort Upper abdominal pain GERD (gastroesophageal reflux disease) Elevated cholesterol HTN (hypertension) Constipation by delayed colonic transit Bleeding hemorrhoids Diabetes mellitus Asthma Surgical History History of dacryocystorhinostomy H/O foot surgery History of esophagogastroduodenoscopy (EGD) History of tonsillectomy History of sinus surgery History of neck surgery History of carpal tunnel release History of release of tendon History of umbilical hernia repair History of colonoscopy Family History Family History Mother History of colon cancer Brother History of liver cancer Maternal Aunt History of colon cancer Father No problems noted. 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 Oriented X3. No acute distress. Eyes: Pupils equal, round and reactive to light. ENT: Pharynx normal. Neck: Normal inspection. Neck supple. CVS: Normal heart rate and rhythm. Pulses normal. Respiratory: No respiratory distress. Breath sounds normal. Abdomen: Soft and nontender. Skin: Skin warm and dry. Normal skin color. Normal skin turgor. Extremities: No lower extremity edema. pulses intact R foot no rash, swelling, signs of infection, SILT and NV intact has pain all over plantar area ttp but no obvious lesions Neuro: Oriented X 3. No motor deficit. No sensory deficit. CN2-12 intact Medical Decision Making Medical Decision Making MDM Narrative: 59 yo male with PMH of MGUS, BPH, cardiomyopathy, HTN, GERD, DM, asthma here with c/o atraumatic R foot pain he has bounding pulses he is NV intact SILT intact no signs of infection will obtain xray and place in boot treat as suspected plantar fasciitis Differential Diagnosis Differential Diagnoses: The differential diagnosis associated with the presentation includes plantar fasciitis, foot pain Independent Interpretation I performed an independent interpretation of an: Plain X-Ray (normal ) Radiology Impression Discussion of test interpretation with radiology: I have reviewed the radiologist's reading. External Record Review External record reviewed: Outpatient record Prescription Management I considered prescription management with: Other Procedures Orthopedic Splinting/Casting Injury #1: Side: right Lower Extremity Injury Location: foot Lower Extremity Immobilizer: post-op shoe Discharge Plan Discharge Clinical Impression: Plantar fasciitis of right foot Patient Disposition: Home, Self-Care Instructions: Plantar Fasciitis (ED), Plantar Fasciitis Exercises (ED) Additional Instructions: xray no fracture return for fevers, worsening pain, rash. follow up with your orthopedics team wear boot as needed for comfort would wear it for 7 days Prescriptions: New lidocaine 4 % gel 1 appl topical BID PRN (Reason: pain) Qty: 30 0RF Rx Instructions: apply to affected area, monitor area for any signs of rash or skin breakdown No Action ibuprofen 800 mg tablet 800 mg PO Q8H PRN (Reason: pain) 30 Days Qty: 90 3RF latanoprost 0.005 % drops 1 drp ophthalmic (eye) BEDTIME alprazolam 2 mg tablet 1 tab PO BID PRN (Reason: anxiety) albuterol sulfate 90 mcg/actuation HFA aerosol inhaler 2 puff inhalation Q4H PRN (Reason: Wheezing) multivitamin with folic acid [Tab-A-Kelsie] 400 mcg tablet 1 tab PO DAILY naloxone [Narcan] 4 mg/actuation spray,non-aerosol 1 spray intranasal DAILY montelukast [Singulair] 10 mg tablet 10 mg PO DAILY methadone 10 mg tablet 10 mg PO TID PRN (Reason: Pain) duloxetine 60 mg capsule,delayed release(DR/EC) 60 mg PO DAILY hydrocortisone [Procto-Med HC] 2.5 % cream with perineal applicator 1 appl SC BID-QID PRN (Reason: hemorrhoids) Qty: 30 0RF zolpidem 10 mg tablet 10 mg PO BEDTIME PRN (Reason: insomnia) pantoprazole 40 mg tablet,delayed release (DR/EC) 40 mg PO BID (DME) FreeStyle Lite Strips Strip See Rx Instructions .ROUTE TID Qty: 10 Rx Instructions: As directed (DME) pen needle, diabetic [Comfort EZ Pen [place]] 33 gauge x 1/4 needle See Rx Instructions .ROUTE .MEDSUPPLY Qty: 100 Rx Instructions: As directed metformin 750 mg tablet extended release 24 hr 750 mg PO DAILY tizanidine 4 mg tablet 4 mg PO TID PRN (Reason: Pain) magnesium oxide 400 mg (241.3 mg magnesium) tablet 400 mg PO DAILY testosterone enanthate 200 mg/mL oil 150 mg IM Q2W (DME) pen needle, diabetic [UltiCare Pen Needle] 31 gauge x 5/16 needle See Rx Instructions .ROUTE .MEDSUPPLY Qty: 1200 Rx Instructions: As directed Linzess 290 mcg capsule 290 mcg PO DAILY PRN (Reason: Constipation) levocetirizine 5 mg tablet 5 mg PO DAILY spironolactone 25 mg tablet 25 mg PO DAILY carvedilol 6.25 mg tablet 3.1 mg PO BID Rx Instructions: must administer with a meal/food Entresto 49-51 mg tablet 1 tab PO BID Toujeo Max U-300 SoloStar 300 unit/mL (3 mL) insulin pen 70 unit subcut DAILY cyclobenzaprine 5 mg tablet 10 mg PO DAILY isosorbide mononitrate 30 mg tablet extended release 24 hr 30 mg PO DAILY aspirin 81 mg tablet,delayed release (DR/EC) 81 mg PO DAILY finasteride [Proscar] 5 mg tablet 5 mg PO DAILY 90 Days Qty: 90 3RF bupropion HCl 150 mg tablet extended release 24 hr 150 mg PO QAM brimonidine 0.15 % drops 1 drp ophthalmic (eye) Q8H ketotifen fumarate 0.025 % (0.035 %) drops 1 drp ophthalmic (eye) BID Rx Instructions: administer at least 8 hours apart cholecalciferol (vitamin D3) 25 mcg (1,000 unit) capsule 25 mcg PO DAILY prazosin 5 mg capsule 5 mg PO DAILY atorvastatin 80 mg tablet 80 mg PO DAILY fluticasone propionate 50 mcg/actuation spray,suspension 1 spray intranasal BID Arnuity Ellipta 100 mcg/actuation blister with device 1 inh inhalation DAILY glipizide 5 mg tablet 5 mg PO BID dorzolamide 2 % drops 2 drp ophthalmic (eye) DAILY ondansetron HCl 4 mg tablet 4 mg PO Q8H PRN (Reason: Nausea) Mounjaro 10 mg/0.5 mL pen injector 15 mg subcut DAILY Referrals: [facility] Orth[facility] Surgeons [Provider Group] Print Language: Georgian
[2024-05-09 09:43] VITALS: BP 136/76; PULSE 93; RESP 16; TEMP 36.6; O2SAT 99
== END 2024-05-09 09:44 | disposition home or self-care (01) ==
PROVIDERS: Emergency Provider Emergency Medicine; PCP Internal Medicine
DX: M72.2 Plantar fascial fibromatosis (principal); M79.671 Pain in right foot; Z79.899 Other long term (current) drug therapy
CPT/HCPCS: 29515; 73630; 99283; 99284

== ENCOUNTER → 2024-05-09 08:09 | Outpatient (BNV) | payer MEDICARE, MEDICAID, SELFPAY | PROVIDERS: Emergency Provider Emergency Medicine; PCP Internal Medicine; Visit Provider Radiology Diagnostic Radiology | DX: M79.671 Pain in right foot (principal) | CPT/HCPCS: 73630 ==

== ENCOUNTER 2024-05-13 09:01 | Outpatient (AMB) | payer MEDICARE, MEDICAID, SELFPAY ==
[2024-05-13 09:21] VITALS: BMI 31.4
--- NOTE | 2024-05-13 09:21 | A.OFFVIS_ITS ---
VS Expanded 05/13/24 09:21 Height 6 ft 2 in Weight 244 lb 11.41 oz BMI 31.4 Intake Visit Reasons: T2DM Allergies Penicillins [PENICILLINS] Allergy (Unknown, Verified 05/09/24 07:53) RASH lactose Adverse Reaction (Intermediate, Uncoded 05/09/24 07:53) Abdominal Pain Nutrition Presentation Details: Pt presents for MNT f/u for T2DM Pt reports doing well, feeling well, no concerns expressed today Brought record: BG ranging from 74-127 mg/dl Pt reports Toujeo was reduced to 40 units.d , metformin ER 750 /day and mounjaro 15 mg/wk, glipizide 5 mg twice/day Pt reports keeping physically active as able - stationary bike Pt reports including fish 2 x/wk, and also taking omega 3 fatty acids fiber: legumes/oats, root veg, spinach, asparagus, carrots including 2 serving/d fried foods: 0-1/wk physically activity: 1x/wk Pt reports A1c at 6% 04/2024 BS Monitoring Most Recent Diabetes Results: Creatinine 0.94 mg/dL (0.5-1.4) 04/17/24 Blood Urea Nitrogen 16 mg/dL (9-16) 04/17/24 Sodium 138 mmol/L (135-145) 04/17/24 Potassium 4.7 mmol/L (3.3-5.1) 04/17/24 Chloride 107 mmol/L (96-108) 04/17/24 Carbon Dioxide 25 mmol/L (22-29) 04/17/24 Calcium 9.5 mg/dL (8.4-10.2) 04/17/24 AST 36 U/L (5-37) 04/17/24 ALT 39 U/L (0-40) 04/17/24 Total Protein 6.9 g/dL (6.5-8.0) 04/17/24 Albumin 4.3 g/dL (3.5-5.0) 04/17/24 [facility] Medical History Diverticulosis Osteoarthritis IBS (irritable bowel syndrome) Hyperlipidemia CAD (coronary artery disease) Nonischemic cardiomyopathy CHF (congestive heart failure) Sleep apnea Obesity (BMI 30.0-34.9) Left flank discomfort Upper abdominal pain GERD (gastroesophageal reflux disease) Elevated cholesterol HTN (hypertension) Constipation by delayed colonic transit Bleeding hemorrhoids Diabetes mellitus Asthma Surgical History History of dacryocystorhinostomy H/O foot surgery History of esophagogastroduodenoscopy (EGD) History of tonsillectomy History of sinus surgery History of neck surgery History of carpal tunnel release History of release of tendon History of umbilical hernia repair History of colonoscopy Family History Mother History of colon cancer Brother History of liver cancer Maternal Aunt History of colon cancer Father No problems noted. 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 Assessment & Plan Assessment & Plan (1) Diabetes mellitus: Code(s): E11.9 - Type 2 diabetes mellitus without complications Category: Medical Plan: wt: 123 kg, 118kg (06/2023), 119kg (09/2023), 119 kg (01/07), 111 kg (05/10) Est kcal needs as per MSJ: 2500 (40% carb, 30% protein/fat) Est fluid needs as per 30 ml/d: 3500 Est prot per day as per 1 g/kg bw: 118 Recommend fiber intake : 8-10 g per day and gradually increase to 25-28 g per day for women and 35-38 g for men or as tolerated Recommend sodium intake per day : less than 2000 mg Educated patient on: ( R = reviewed V = verbalizes understanding N/R = needs review N/A = not applicable * Food sources of carbohydrate, adequate serving sizes and its role in various health conditions: R * Differences between complex carbohydrates a simple carbohydrates, role of fiber in diet: R * Differences between types of fats and role in diet (mono on saturated fat fatty acids, saturated fatty acids, trans fats): R , V * Food sources of sodium in salt and healthy modifications for heart health in kidney health: R * Vitamins and minerals: R * Healthy plate method concept: R , V * Physical activity: Benefits a precaution: R * Hypoglycemia protocol (rule of 15): R V - rule of 15 * Dietary prevention of Hyperglycemia: R V (2) Obesity (BMI 30.0-34.9): Code(s): E66.9 - Obesity, unspecified Category: Medical Plan: Continue following healthy plale method, choosing foods iwth omega 3 fatty acids Patient Instructions: Follow healthy plate method- incluya variedad de comida siguiendo el plato saludable choose MUFA source so foods (fish, seeds, nuts, avocado)- Escoja comida con grasa mono insaturada (pescado, semillas, nueces, aguacate Always carry glucose tablets , treat low blood sugar by havin 3-4 glucose tablets, wait 15 minutes and recheck reapeat treament in sugar continue below 70 - , Siempre cargue con tabletas de glucosa , coja 3-4 si dennis nivel de azucar esta menos de 70, espere 15 minutos y vuelva a chequear dennis azucar, repita el tratamiento si dennis azucar continua menos de 70 . Coding Level of Care Code Nutr Indiv Subseq (78978) Diagnoses Diabetes mellitus E11.9 Obesity (BMI 30.0-34.9) E66.9 Time Spent (min) 30
== END 2024-05-13 09:57 | disposition home or self-care (01) ==
PROVIDERS: PCP Internal Medicine; Visit Provider Dietitian, Registered
DX: E11.9 Type 2 diabetes mellitus without complications (principal); E66.9 Obesity, unspecified

== ENCOUNTER → 2024-05-13 09:01 | Outpatient (BNVA) | payer MEDICARE, MEDICAID, SELFPAY | PROVIDERS: PCP Internal Medicine; Visit Provider Dietitian, Registered | DX: E11.9 Type 2 diabetes mellitus without complications (principal); E66.9 Obesity, unspecified; Z71.3 Dietary counseling and surveillance; Z68.31 Body mass index [BMI] 31.0-31.9, adult | CPT/HCPCS: 97803 ==

== ENCOUNTER 2024-05-26 09:36 | Outpatient (AMB) | payer MEDICARE, MEDICAID, SELFPAY ==
--- NOTE | 2024-05-26 09:58 | MHC.OFFVIS ---
Vital Signs 05/26/24 10:05 05/26/24 10:09 Height 6 ft 2 in 6 ft 2 in Weight 242 lb 8.136 oz BMI 31.1 BP 114/65 Blood Pressure Location Lt brachial Position Sitting Pulse 92 Intake Visit Reasons: 6 mnth follow up Intake Note: Elissa presents in the office as a 6 month follow up today. CC: States that he is having N/V again and he feels like the food is getting stuck in his esophagus. Electronics Maintenance Technician Required: Yes Electronics Maintenance Technician Name: [id number] Kasandra Allergies Penicillins [PENICILLINS] Allergy (Unknown, Verified 05/26/24 10:11) RASH lactose Adverse Reaction (Intermediate, Uncoded 05/26/24 10:11) Abdominal Pain HPI HPI 6 mnth follow up: Details: A 59 y/o male follow up with dysphagia and early satiety RECAP: EGD with balloon dilation which helped his dysphagia He had rept EGD with dilation for recurrence of dysphagia 06/08 with savary 17 mm He is was also dx with rapid gastric emptying and urgency possibly from DM and medication effects US 08/2022-- elastography 1.6, steatosis, nml GB, no stones/sludge Rept EGD 11/22/23: dilation with 18 mm savary wire INTERIM: swallowing is bad again--just started being a problem 2 weeks ago appetite is good he is taking weight loss meds, a1c is much better still taking pantoprazole and linaclotide, helping EXAM: GENERAL: The patient is well developed and nontoxic. VITAL SIGNS:see workflow HEENT: Nonicteric sclerae, PERRLA, EOMI. Oropharynx clear. Moist mucous membranes. Conjunctivae appear well perfused. No thyroid mass. CHEST: Chest wall is nontender. HEART: Regular rate and rhythm without murmurs. LUNGS: Clear to auscultation bilaterally. ABDOMEN: Soft, positive bowel sounds, nontender, no organomegaly. pos flank tenderness and left sided abdomen SKIN: No rash, no excessive bruising, petechiae, or purpura. NEUROLOGIC: Cranial nerves II-XII intact without motor/sensory deficit. Psych--nml MS; using walking stick, A/P: 1/ Dysphagia, possibly related to medications, DM, methadone--better with dilation --sx recurrence 2/ rapid gastric emptying PLAN: 1/ Rebook EGD with dilation, can do scheduled q 6 monthly 2/ change to nexium BID and see if superior effect as compared to pantoparazole PFSH Medical History Diverticulosis Osteoarthritis IBS (irritable bowel syndrome) Hyperlipidemia CAD (coronary artery disease) Nonischemic cardiomyopathy CHF (congestive heart failure) Sleep apnea Obesity (BMI 30.0-34.9) Left flank discomfort Upper abdominal pain GERD (gastroesophageal reflux disease) Elevated cholesterol HTN (hypertension) Constipation by delayed colonic transit Bleeding hemorrhoids Diabetes mellitus Asthma Surgical History History of dacryocystorhinostomy H/O foot surgery History of esophagogastroduodenoscopy (EGD) History of tonsillectomy History of sinus surgery History of neck surgery History of carpal tunnel release History of release of tendon History of umbilical hernia repair History of colonoscopy Family History Mother History of colon cancer Brother History of liver cancer Maternal Aunt History of colon cancer Father No problems noted. 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
[2024-05-26 10:09] VITALS: BP 114/65; PULSE 92; BMI 31.1
== END 2024-05-26 10:46 | disposition home or self-care (01) ==
PROVIDERS: PCP Internal Medicine; Visit Provider Internal Medicine Gastroenterology
DX: Z98.890 Other specified postprocedural states (principal)
CPT/HCPCS: 99213

== ENCOUNTER → 2024-05-26 09:36 | Outpatient (BNVA) | payer MEDICARE, MEDICAID, SELFPAY | PROVIDERS: PCP Internal Medicine; Visit Provider Internal Medicine Gastroenterology | DX: R13.10 Dysphagia, unspecified (principal); Z98.890 Other specified postprocedural states | CPT/HCPCS: 99212 ==

== ENCOUNTER 2024-08-05 10:00 | Outpatient (REF) | payer MEDICARE, MEDICAID, SELFPAY ==
--- OUTSIDE RECORDS SUMMARY | 2024-08-05 11:23 | XMS_ITS | Encounter Summary ---
Author Organization [facility] Address [address] [place] [address] Care Team Providers Care Multi Punch Operator Name Role Phone Vamshi Man MD Primary Care Provider Encounter Details Date Type Department Care Team (Late st Contact Info) Description 01/30/2024 2:30 PM EDT Hospital Encounter TH HISTORIC ENCOUNTERS [facility]AST[facility] CONVERSION ONLY Kash Hammonds MD [address] [facility] [address] [place] [address] Social History Tobacco Use Types Packs/Day Years [...] AM EDT Office Visit Orthopedic Surgery - [place] [address] [facility] [address] [place] [address] Cheng Rea, DPFranco [address] [facility] [address] [place] [address] 09/10/2024 8:50 AM EDT Office Visit [facility] [address] [facility] [address] [place] [address] Manuel Aldrich MD [address] [place] [address] [address] [place] [address] 12/08/2024 9:10 AM EDT Office Visit Gastroenterology - [place] [address] [facility] [address] [place] [phone] Idalia Sandoval PA [address] [facility] [address] [place] [address] documented as of this encounter Visit Diagnoses Not on filedocumented in this encounter Care Teams Multi Punch Operator Relationship Specialty Start Date End Date Vamshi Man MD [address] [place] [id number] PCP - General 10/06/10 documented as of this encounter
--- OUTSIDE RECORDS SUMMARY | 2024-08-05 11:23 | XMS_ITS | Clinical Summary ---
Author Organization [facility] Address [address] [place] [address] Phone Care Team Providers Care Bridge Builder Name Role Phone Vamshi Man MD Primary Care Provider [phone] Allergies Active Allergy Reactions Criticality Noted Date [...] 24 hr tabletIndication s:Coronary artery disease involving chefornak coronary artery of chefornak heart with other form of angina pectoris [...] DAILY (BEFORE MEALS). 180 tablet 3 05/21/19 25 Active Linzess 290 mcg capsule TAKE 1 CAPSULE BY MOUTH DAILY. 90 capsule 1 05/21/19 25 Active Active Problems Problem Noted Date Diagnosed Date Palpitations 03/28/2024 Assessment & Plan (03/28/2024 1:13 PM EST): The patient continues to have episodes of palpitations. He recently completed a 30-day ambulatory item repair manager. He had 38 symptomatic events during the [...] actual syncope. During a recent 30-day ambulatory item repair manager, the patient was found to have a [...] near syncope in the past. 30-day ambulatory item repair manager showed instances of high-grade AV block with a pause of up to 3 seconds. As a result of this, his carvedilol was decreased from 6.25 mg orally twice a day down to 3.5 mg orally twice a day. After the changing the dose of the beta-sabiha, no further episodes of high-grade AV block or sinus pauses were noted on the ambulatory item repair manager. Of note, there was no evidence of [...] mg orally daily Candidate for ICD or ARCHITECT IN TRAINING: Not a candidate due to the LVEF [...] immunofixation study. The patient was evaluated by [place] [facility] in May 2023 due to his [...] orally daily ? Candidate for ICD or ARCHITECT IN TRAINING: Not a candidate due to the LVEF [...] immunofixation study. The patient was evaluated by [place] [facility] in May 2023 due to his elevated serum kappa lambda ratio and they determined that the patient did not have any plasma cell disorder. 4. 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 The patient was referred to the [facility] genetic medicine program. Last documented LVEF: 1. [...] SGLT2 inhibitor: None Candidate for ICD or ARCHITECT IN TRAINING: Not a candidate due to the LVEF [...] was referred for an evaluation with the [place] hematology service who determined that the patient did not have a plasma cell disorder and therefore does not have AL amyloidosis. The patient's brother has a history of a cardiomyopathy and cardiac arrhythmias and is currently hospitalized in [place] awaiting a cardiac transplant. The patient underwent genetic testing ([employer] comprehensive cardiomyopathy panel) and the test showed that he is a carrier of 1 pathogenic variant in the gene [id number] which is associated with an autosomal recessive primary carnitine deficiency. We refer the patient for an evaluation with the [facility] genetics program but the patient states that [...] immunofixation study. The patient was evaluated by [place] [facility]ology in May 2023 due to his elevated serum kappa lambda ratio and they determined that the patient did not have any plasma cell disorder. 4. 8. 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 The patient was referred to the [facility] genetic medicine program. Last documented LVEF: 1. 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 In the meantime, the patient will [...] Description 07/22/2024 12:25 PM EDT Ancillary Procedure [facility] [address] [facility] [address] [place] [address] 07/14/2024 8:41 AM EDT - 07/14/2024 11:59 PM EDT Hospital Encounter [facility] Xray [address] [place] [phone] Dysphagia, unspecified type Discharge Disposition: Home or Self Care 06/26/2024 10:45 AM EDT Office Visit [facility]opedic Surgery - [facility] [address] [facility] [address] [place] [address] Cheng Rea, DPM Closed displaced fracture of cuboid bone of right foot with malunion (Primary Dx); Follow-up exam; Tendinitis of right ankle; Plantar fascial fibromatosis 06/18/2024 4:35 PM EST Ancillary Procedure [facility] [address] [facility] [address] [place] [address] 06/12/2024 Telephone [facility] [address] [facility] [address] [place] [address] Musa Griffin MD Procedure (ILR Removal) 06/10/2024 11:05 AM EST Office Visit [facility] [address] [place] [address] Musa Griffin MD Irritation symptom of skin (Primary Dx); Implantable loop recorder present 06/10/[address] [facility] [address] [facility] [address] [place] [address] Manuel Aldrich MD 05/29/2024 10:45 AM EST Office Visit Orthopedic [facility] [address] [phone] Cheng Rea DPM Closed displaced fracture of cuboid bone of right foot with malunion (Primary Dx); Tendinitis of right ankle; Plantar fascial fibromatosis 05/16/2024 11:30 AM EST - 05/16/2024 12:00 PM EST Surgery [facility] Cardiac Electroplater [address] [place] [address] Musa Griffin MD Loop recorder insertion [[id number] (CPT??)] 05/16/2024 10:21 AM EST - 05/16/2024 11:59 PM EST Hospital Encounter [facility] Cardiac Electroplater [address] [place] [phone] Musa Griffin MD Dilated cardiomyopathy (CMS/HCC V24, CMS/HCC V28) (Primary Dx); Palpitations; Near syncope Discharge Disposition: Home or Self Care 05/13/2024 10:45 AM EST Office Visit Orthopedic [facility] [address] [phone] Cheng Rea DPM Closed displaced fracture of cuboid bone of right foot with malunion (Primary Dx); Tendinitis of right ankle; Plantar fascial fibromatosis 05/12/2024 9:20 AM EST Lab Draw Station - [address] [place] [phone] Syncope 05/08/2024 10:00 AM EST Office Visit Gastroenterology [facility] [address] [place] [phone] Idalia Sandoval PA LLQ abdominal pain (Primary Dx); Gastroesophageal reflux disease, unspecified whether esophagitis present; Gastroparesis; Oral phase dysphagia; Diverticulosis; Chronic constipation 05/08/2024 Telephone Orthopedic Surgery [facility] [address] [phone] Cheng Rea, DPM from Last 3 Months Immunizations Name Administration Dates Next Due H1N1 Inj 02/16/2009 Hepatitis A Adult (Havrix; V aqta) 19yo and older 06/02/2004,02/21/2003 Hepatitis B (Dnhevck-Y-Nxtto , Recombivax HB-Adult) 19yo and older 06/04/2003,12/19/2002,11/18/2002 [...] DX:Chronic constipation Diabetes mellitus type 2, uncomplicated ([facility]/HCC V24, CMS/HCC V28) 04/05/2017 DX:Diabetes mellitus type 2, uncomplicated ([facility]) Dysphagia 06/21/2016 DX:Dysphagia Esophageal reflux 11/19/2017 DX:Esophageal reflux Gastroparesis 10/31/2017 DX:Gastroparesis History of diverticulitis of colon 01/02/2017 DX:History of diverticulitis of colon Internal hemorrhoids with complication DX:Internal hemorrhoids with complication Irritable bowel syndrome [...] disease DX:Gastroesophageal reflux disease Gastroparesis diabeticorum ( CMS/HCC V24, CMS/HCC V28) DX:Gastroparesis diabeticoru m (HCC) Hx of syphilis DX:Hx of syphili s [...] AM EDT Office Visit [facility] - [place] [address] [facility] [address] [place] [phone] Cheng Rea DPM 175 [facility] [address] [place] [address] 09/10/2024 8:50 AM EDT Office Visit [facility] [address] [place] [address] [place] [phone] Manuel Aldrich MD [address] [place] [address] [address] [place] [address] 12/08/2024 9:10 AM EDT Office Visit Gastroenterology - [place] 175 [facility] 175 [facility] [address] [place] [phone] Idalia Sandoval PA 175 [facility] [address] [place] [address] Health Maintenance Due Date Last Done Comments Diabetes: Annual Foot Exam 1975 Diabetes: Annual Retina Eye Exam 1975 Cholesterol Screening (Lipid Panel) 03/25/2022 Depression Screening 03/25/2022 HIV Screening 03/25/2022 Hepatitis C Screening 03/25/2022 Medicare Annual Wellness Visit 03/25/2022 Social Influencers of Health Screening 03/25/2022 Diabetes: Blood Sugar Control Test (HGBA1C) 11/22/2022 05/25/2022 COVID-19 Vaccine (7 - Pfizer risk season) 2024 05/06/2024, 01/30/2023, 11/11/2021, Additional history exists Diabetes: Annual GFR (Glomerular Filtration Rate) 05/12/2025 [...] Completed 12/20/2023, , 01/27/2022, Additional history exists HIB Vaccines Aged Out [...] this topic Medical Devices Implanted Type Area Computer Systems Consultant Device Identifier Shelf Expiration Date Model / Serial / Lot Monitor Cardiac Insert Lux Dx Ii+ - [id number] - [id number] Implanted:Qty: 1 on 05/16/2024 by Musa Griffin MD at [facility] Cardiac Loop Recorder Left: Chest [employer] MGMT [id number] 09/12/2025 M312 / [id number] / Procedures Procedure Name Priority Date/Time Associated [...] period is included. Date Time Interrogation Session [id number] CV DEVICE CHECK Type Interrogation Session Remote Scheduled CV DEVICE CHECK Implantable Pulse Generator Computer Systems Consultant BSX CV DEVICE CHECK Implantable Pulse Generator Type ILR CV DEVICE CHECK Implantable Pulse Generator Model M312 CV DEVICE CHECK Implantable Pulse Generator Serial Number [id number] CV DEVICE CHECK Implantable Pulse Generator Implant Date [id number] CV DEVICE CHECK Battery Status Beginning of Service CV DEVICE CHECK Atrial Tachy Statistic AT/AF [place] Percent 0.00 CV DEVICE CHECK Date of [...] Signed Date: 07/14/2024 11:05 ET Workstation ID: [id number] Transcribed By: Self Edit Transcribed Date: 07/14/2024 10:38 ET Resident/PA/CHIEF ADMINISTRATIVE OFFICER: Angela Cabrera 07/14/2024 11:05 AM EDT CLINICAL HISTORY: dysphagia. 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 06/26/2024 12:27 PM Injection tendon or ligament Indications: pain Details: 25 G needle Medications: 0.5 mL lidocaine (PF) 1 %; 20 mg triamcinolone acetonide 40 mg/mL Informed Consent: ??Site: ??Foot ligament tendon Cheng Rea DPM IN CLINIC/BEDSIDE ORDERAB LES Final Result * Injection tendon or ligament (05/29/2024 10:45 AM EST) Narrative Cheng Rea DPM - 05/29/2024 10:45 AM EST Cheng [...] and I deployed the device using the [employer] apparatus. I noted good are sensing waves I closed incision with a 2-0 Vicryl. Dermabond was placed over the incision. Tegaderm dressing was placed over the incision. Device a [employer] Lux DX. Model number is M312. Serial number is [id number]. R waves are 0.34mV. P waves were noted. Impression Successful implantation of a [employer] MRI compatible implantable loop recorder Manuel Aldrich MD CV ELECTROPHYSIOLOGY P ROCEDURES Final Result * Injection tendon or ligament (05/13/2024 10:45 AM EST) Cheng Akhtar DPM - 05/13/2024 10:45 AM EST Cheng Rea DPM ? 05/13/2024 11:57 AM Injection tendon or ligament Indications: pain Details: 25 G needle Medications: 0.5 mL lidocaine (PF) 1 %; 20 mg triamcinolone acetonide 40 mg/mL Informed Consent: ??Site: ??Foot ligament tendon us Cheng Rea DPM IN CLINIC/BEDSIDE ORDERAB LES Final Result * CBC auto differential (05/12/2024 9:17 AM EST) Pathologist [facility] WBC 7.1 4.8 - 10.8 K/mcL LAB HEMETOLOGY METHOD 05/12/2024 2:56 PM [facility] RBC 4.80 4.50 - 5.50 M/mcL LAB HEMETOLOGY METHOD 05/12/2024 2:56 PM [facility] Hemoglobin 13.5 13.5 - 17.5 g/dL LAB HEMETOLOGY METHOD 05/12/2024 2:56 PM [facility] Hematocrit 42.0 42.0 - 54.0 % LAB HEMETOLOGY METHOD 05/12/2024 2:56 PM [facility] MCV 88.1 79.0 - 98.0 FL LAB HEMETOLOGY METHOD 05/12/2024 2:56 PM [facility] MCH 28.3 27.0 - 32.0 pcg LAB HEMETOLOGY METHOD 05/12/2024 2:56 PM [facility] MCHC 32.1 32.0 - 37.0 g/dL LAB HEMETOLOGY METHOD 05/12/2024 2:56 PM [facility] RDW 12.8 11.0 - 15.0 % LAB HEMETOLOGY METHOD 05/12/2024 2:56 PM [facility] Platelets 222 130 - 400 K/mcL LAB HEMETOLOGY METHOD 05/12/2024 2:56 PM [facility] MPV 9.6 7.0 - 11.0 FL LAB HEMETOLOGY METHOD 05/12/2024 2:56 PM [facility] NRBC 0.0 <1.0 % LAB HEMETOLOGY METHOD 05/12/2024 2:56 PM [facility] NRBC Absolute 0.00 <0.10 K/mcL LAB HEMETOLOGY METHOD 05/12/2024 2:56 PM [facility] Neutrophils Relative 55.6 % LAB HEMETOLOGY METHOD 05/12/2024 2:56 PM [facility] Lymphocytes Relative 30.6 % LAB HEMETOLOGY METHOD 05/12/2024 2:56 PM [facility] Monocytes Relative 11.5 % LAB HEMETOLOGY METHOD 05/12/2024 2:56 PM [facility] Eosinophils Relative 1.3 % LAB HEMETOLOGY METHOD 05/12/2024 2:56 PM [facility] Basophils Relative 0.9 % LAB HEMETOLOGY METHOD 05/12/2024 2:56 PM [facility] Immature Granulocytes Relative 0.1 % LAB HEMETOLOGY METHOD 05/12/2024 2:56 PM [facility] Neutrophils Absolute 3.92 1.50 - 7.00 K/mcL LAB HEMETOLOGY METHOD 05/12/2024 2:56 PM [facility] Lymphocytes Absolute 2.16 1.00 - 5.00 K/mcL LAB HEMETOLOGY METHOD 05/12/2024 2:56 PM [facility] Monocytes Absolute 0.81 0.20 - 1.00 K/mcL LAB HEMETOLOGY METHOD 05/12/2024 2:56 PM [facility] Eosinophils Absolute 0.09 0.00 - 0.50 K/mcL LAB HEMETOLOGY METHOD 05/12/2024 2:56 PM [facility] Basophils Absolute 0.06 0.00 - 0.20 K/mcL LAB HEMETOLOGY METHOD 05/12/2024 2:56 PM EST [facility] Immature Granulocytes Absolute 0.01 0.00 - 0.03 K/mcL LAB HEMETOLOGY METHOD 05/12/2024 2:56 PM EST [facility] Blood Venous blood specimen / Unknown Venipuncture / Unknown 05/12/2024 9:17 AM EST 05/12/2024 9:17 AM EST us Musa Griffin MD LAB BLOOD ORDERABLES Final Result [facility] [address] [place] [address], [place] [phone] * Prothrombin time with INR (05/12/2024 9:17 AM EST) Protime 11.1 10.6 - 13.9 sec LAB COAGULATION METHOD 05/12/2024 2:30 PM [facility] INR 0.9 LAB COAGULATION METHOD 05/12/2024 2:30 PM [facility] Blood Venous blood specimen / Unknown Venipuncture / Unknown 05/12/2024 9:17 AM EST 05/12/2024 9:17 AM EST us Musa Griffin MD LAB BLOOD ORDERABLES Final Result [facility] [address] [place] [address], [place] [phone] * Basic metabolic panel (05/12/2024 9:17 AM EST) Sodium 135 133 - 145 mmol/L LAB CHEMISTRY METHOD 05/12/2024 3:18 PM [facility] Potassium 4.5 3.5 - 5.5 mmol/L LAB CHEMISTRY METHOD 05/12/2024 3:18 PM [facility] Chloride 102 96 - 110 mmol/L LAB CHEMISTRY METHOD 05/12/2024 3:18 PM [facility] CO2 25 21 - 32 mmol/L LAB CHEMISTRY METHOD 05/12/2024 3:18 PM [facility] Anion Gap 8 3 - 11 LAB CHEMISTRY METHOD 05/12/2024 3:18 PM [facility] Glucose 84 70 - 100 mg/dL LAB CHEMISTRY METHOD 05/12/2024 3:18 PM [facility] BUN 16 5 - 25 mg/dL LAB CHEMISTRY METHOD 05/12/2024 3:18 PM [facility] Creatinine 0.99 0.70 - 1.30 mg/dL LAB CHEMISTRY METHOD 05/12/2024 3:18 PM [facility] eGFR 88 >=60 mL/min/1. 73m2 LAB CHEMISTRY METHOD 05/12/2024 3:18 PM [facility] Comment:Calculation based on the??Chronic Kidney Disease Epidemiology Collaboration (CKD-EPI) equation refit??without adjustment for race. BUN/Creatinine Ratio 16.2 LAB CHEMISTRY METHOD 05/12/2024 3:18 PM [facility] Calcium 9.4 8.5 - 10.5 mg/dL LAB CHEMISTRY METHOD 05/12/2024 3:18 PM [facility] Blood Venous blood specimen / Unknown Venipuncture / Unknown 05/12/2024 9:17 AM EST 05/12/2024 9:17 AM EST Musa Griffin MD LAB BLOOD ORDERABLES Final Result [facility] [address] [place] [address], * Colonoscopy (02/12/2020) Pathologist [facility] Colonoscopy no interpretation , abstracted Anatomical Region Laterality Modality Other Historical Provider HEALTH MAINTENANCE Final Result from Last 3 Months or Most Recently Relevant to Health Maintenance Insurance MEDICAID - [place] MEDICARE Advance Directives Documents on File Type Date Recorded Patient Marketing Programs Specialist Expl anation Health Care Decision (hx) 07/31/2013 [...] (hx) 07/14/2013 AD DURBIN DIRECTIVE Care Teams Bridge Builder Relationship Specialty Start Date End Date Vamshi Man MD [address] [place] [address] (work) PCP - General 10/06/10
--- OUTSIDE RECORDS SUMMARY | 2024-08-05 11:23 | XMS_ITS | Clinical Summary ---
Author Organization [facility] Address [address] [place] [address] Care Team Providers Care Veterans' Coordinator Name Role Phone Vamshi Man MD Primary Care Provider + [phone] Allergies Active Allergy Reactions Criticality Noted Date [...] age to complete this topic Care Teams Veterans' Coordinator Relationship Specialty Start Date End Date Vamshi Man MD [address] [place] [id number] PCP - General Internal Medicine 05/02/23
--- OUTSIDE RECORDS SUMMARY | 2024-08-05 11:23 | XMS_ITS | Clinical Summary ---
Author Organization [facility] Address [address] [place] [address] Phone Care Team Providers Care Forensic Locksmith Name Role Phone Vamshi Man MD Primary Care Provider [phone] Allergies Active Allergy Reactions Criticality Noted Date [...] Lateral epicondylitis 11/23/2021 Overview (11/23/2021): s/p Modified Flushing procedure, repair of conjoined tendon of extensor [...] today Switched from Losartan to Entresto by Career Coach recently Renal osteodystrophy 11/23/2021 Diabetes mellitus 01/06/2021 [...] Office Visit [facility] [address] [address] Caprice Mary ARNP Chronic kidney disease, stage 2 (mild) (Primary Dx); Hypertension; Vitamin D deficiency, not otherwise specified 07/24/2024 Orders Only [facility] [address] [address] Caprice Mary ARNP 07/16/2024 Orders Only [facility]. [address] [address] Caprice Mary ARNP from Last 3 Months [...] Visit [facility] [address] [address] Caprice Mary ARNP [address] [address] Health Maintenance Due Date Last [...] Procedure Name Priority Date/Time Associated Diagnosis Comments VITAMIN D 25 HYDROXY Routine 07/24/2024 10:12 AM EDT FERRITIN Routine 07/16/2024 9:59 AM EDT MAGNESIUM [...] EDT from Last 3 Months Results * Vitamin D 25 Hydroxy (07/24/2024 10:12 AM EDT) Vitamin D, 25-OH, Total 41.0 30.0 - 100.0 ng/mL [facility] Comment: Vitamin D deficiency has been defined by the [place] of [employer] and an Endocrine Society practice guideline as a level of serum 25-OH vitamin D less than 20 ng/mL (1,2). The Endocrine Society went on to further define vitamin D insufficiency as a level between 21 and 29 ng/mL (2). 1. IOM ([place] of [employer]). 2010. Dietary reference ?? intakes for calcium and D. [place]: The ?? National iwoca Press. 2. Nenita MF, Jeremie SPRINGER, Ronaldo DOSS, et al. ?? Evaluation, treatment, and prevention of vitamin D ?? deficiency: an Endocrine Society clinical practice ?? guideline. JCEM. 2010; 96(7):1911-30. 07/24/2024 10:1 2 AM EDT 07/24/2024 Caprice SMITH LAB BLOOD ORDERABLES Final Result [facility] [address] [place] [address] * (ABNORMAL) Hemoglobin A1C (07/16/2024 9:59 AM EDT) Hemoglobin A1C 6.0(H) %Hb [facility] Comment: Reference Range: [place] Diabetes Association (ADA) Guidelines: <5.7: Decreased risk for diabetes 5.7 - 6.4: Increased risk for diabetes >6.4: Ongoing Hyperglycemia of any cause <7.0: Glycemic control for adults with diabetes Estimated Average Glucose 126 mg/dL [facility] 07/16/2024 9:59 AM EDT 07/16/2024 Caprice SMITH LAB BLOOD ORDERABLES Final Result [facility] [address] [place] [address] * CBC Diff Ambiguous Default (07/16/2024 9:59 AM EDT) WBC 9.0 3.4 - 10.8 x10E3/uL [facility] RBC 4.66 4.14 - 5.80 x10E6/uL [facility] Hemoglobin 13.3 13.0 - 17.7 g/dL [facility] Hematocrit 40.8 37.5 - 51.0 % [facility] MCV 88 79 - 97 fL [facility] MCH 28.5 26.6 - 33.0 pg [facility] MCHC 32.6 31.5 - 35.7 g/dL [facility] RDW 13.4 11.6 - 15.4 % [facility] Platelets 235 150 - 450 x10E3/uL [facility] Neutrophils Relative 60 Not Estab. % [facility] Lymphocytes Relative 29 Not Estab. % [facility] Monocytes 9 Not Estab. % [facility] Eosinophils Relative 1 Not Estab. % [facility] Basophils Relative 1 Not Estab. % [facility] Neutrophils Absolute 5.4 1.4 - 7.0 x10E3/uL [facility] Lymphocytes Absolute 2.6 0.7 - 3.1 x10E3/uL [facility] Monocytes Absolute 0.8 0.1 - 0.9 x10E3/uL [facility] Eosinophils Absolute 0.1 0.0 - 0.4 x10E3/uL [facility] Basophils Absolute 0.1 0.0 - 0.2 x10E3/uL [facility] Immature Granulocytes 0 Not Estab. % [facility] Immature Grans (Absolute) 0.0 0.0 - 0.1 x10E3/uL [facility] Comment: A hand-written panel/profile was received from your office. In accordance with the [facility] Ambiguous Test Code Policy dated October 2002, we have assigned CBC with Differential/Platelet, Test Code #385265 to this request. If this is not the testing you wished to receive on this specimen, please contact the [facility] Client Inquiry/ Technical Services Department to clarify the test order. We appreciate your business. 07/16/2024 9:59 AM EDT 07/16/2024 Caprice [facility] LAB BLOOD ORDERABLES Final Result [facility] [address] [place] [phone] * Iron Panel (Fe, TIBC, TSAT) (07/16/2024 9:59 AM EDT) TIBC 335 250 - 450 ug/dL [facility] UIBC 258 111 - 343 ug/dL [facility] Iron 77 38 - 169 ug/dL [facility] Iron Saturation (TSat) 23 15 - 55 % [facility] 07/16/2024 9:59 AM EDT 07/16/2024 [facility] Final Result [facility] [address] [place] [address] * Urine Albumin / Creatinine Ratio (07/16/2024 9:59 AM EDT) Pathologist [facility] Creatinine, Ur 132.3 Not Estab. mg/dL [facility] Albumin, Urine 6.8 Not Estab. ug/mL [facility] Albumin/Creatin ine Ratio 5 0 - 29 mg/g creat [facility] Comment: ? Normal: ?0 - ??29 ? Moderately increased: 30 - 300 ? Severely increased: ? >300 07/16/2024 9:59 AM EDT 07/16/2024 Caprice Mary [facility] LAB URINE ORDERABLES Final Result Performing Organization Address [facility]/ZIP Co de Phone Number [facility] [address] [place] [address] * Magnesium (07/16/2024 9:59 AM EDT) Pathologist [facility] Magnesium 1.8 1.6 - 2.3 mg/dL [facility] 07/16/2024 9:59 AM EDT 07/16/2024 Caprice [facility] LAB BLOOD ORDERABLES Final Result Performing Organization Address [facility] Co de Phone Number [facility] [address] [place] [address] * Ferritin (07/16/2024 9:59 AM EDT) Ferritin 73 30 - 400 ng/mL [facility] 07/16/2024 9:59 AM EDT 07/16/2024 Caprice SMITH LAB BLOOD ORDERABLES Final Result [facility] [address] [place] [address] * (ABNORMAL) Renal Function Panel (07/16/2024 9:59 AM EDT) Glucose 83 70 - 99 mg/dL [facility] BUN 14 6 - 24 mg/dL [facility] Creatinine 1.07 0.76 - 1.27 mg/dL [facility] eGFR CKD-EPI CR 2020 80 >59 mL/min/1.7 3 [facility] BUN/Creatinine Ratio 13 9 - 20 [facility] Sodium 135 134 - 144 mmol/L [facility] Potassium 4.2 3.5 - 5.2 mmol/L [facility] Chloride 101 96 - 106 mmol/L [facility] Bicarbonate (CO2) 19(L) 20 - 29 mmol/L [facility] Calcium 9.1 8.7 - 10.2 mg/dL [facility] Albumin 4.6 3.8 - 4.9 g/dL [facility] Phosphorus 3.2 2.8 - 4.1 mg/dL [facility] 07/16/2024 9:59 AM EDT 07/16/2024 Caprice Mary LUIS LAB BLOOD ORDERABLES Final Result [facility] [address] [place] [address] from Last 3 Months Insurance Medicaid [place] Medicaid [place] Care Teams Forensic Locksmith Relationship Specialty Start Date End Date Vamshi Man MD [address] [place] [address] PCP - General 04/26/20
[2024-08-05 14:05] LABS: Anion Gap 12 (12-20); Blood Urea Nitrogen 19 mg/dL (9-16); Carbon Dioxide 26 mmol/L (22-29); Chloride 107 mmol/L (96-108); Estimated Glomerular Filt Rate > 60; Potassium 5.1 mmol/L (3.3-5.1); Sodium 140 mmol/L (135-145)
[2024-08-05 14:14] LABS: Creatinine Urine 89.24 mg/dL; Total Protein Urine Random < 7 mg/dL (<12)
== END 2024-08-05 10:01 | disposition home or self-care (01) ==
LOC: HO.HMGCLDS 10:00
PROVIDERS: Visit Provider Internal Medicine Nephrology
DX: N28.1 Cyst of kidney, acquired (principal); I10 Essential (primary) hypertension
CPT/HCPCS: 36415; 80051; 82565; 82570; 84156; 84520

== ENCOUNTER 2024-08-12 09:12 | Outpatient (REF) | payer MEDICARE, MEDICAID, SELFPAY ==
--- OUTSIDE RECORDS SUMMARY | 2024-08-12 11:36 | XMS_ITS | Clinical Summary ---
Author Organization [facility] Address [address] [place] [address] Phone Care Team Providers Care Market Research Intern Name Role Phone Vamshi Man MD Primary Care Provider [phone] Allergies Active Allergy Reactions Criticality Noted Date [...] 24 hr tabletIndicatio ns:Coronary artery disease involving suquamish coronary artery of suquamish heart with other form of angina pectoris (CMS/[facility] V24) Take 1 tablet (60 mg [...] palpitations. He recently completed a 30-day ambulatory manager monitoring. He had 38 symptomatic events during the [...] actual syncope. During a recent 30-day ambulatory manager monitoring, the patient was found to have a [...] near syncope in the past. 30-day ambulatory manager monitoring showed instances of high-grade AV block with a pause of up to 3 seconds. As a result of this, his carvedilol was decreased from 6.25 mg orally twice a day down to 3.5 mg orally twice a day. After the changing the dose of the beta-sabiha, no further episodes of high-grade AV block or sinus pauses were noted on the ambulatory manager monitoring. Of note, there was no evidence of [...] mg orally daily Candidate for ICD or HACK SAW OPERATOR: Not a candidate due to the LVEF [...] immunofixation study. The patient was evaluated by [facility] in May 2023 due to his [...] orally daily ? Candidate for ICD or HACK SAW OPERATOR: Not a candidate due to the LVEF [...] immunofixation study. The patient was evaluated by [facility] in May 2023 due to his elevated serum kappa lambda ratio and they determined that the patient did not have any plasma cell disorder. 4. 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 The patient was referred to the [facility] genetic medicine program. Last documented LVEF: [...] SGLT2 inhibitor: None Candidate for ICD or HACK SAW OPERATOR: Not a candidate due to the LVEF [...] was referred for an evaluation with the [facility] service who determined that the patient did not have a plasma cell disorder and therefore does not have AL amyloidosis. The patient's brother has a history of a cardiomyopathy and cardiac arrhythmias and is currently hospitalized in [place] awaiting a cardiac transplant. The patient underwent genetic testing ([facility] comprehensive cardiomyopathy panel) and the test showed that he is a carrier of 1 pathogenic variant in the gene [id number] which is associated with an autosomal recessive primary carnitine deficiency. We refer the patient for an evaluation with the [facility] genetics program but the patient states [...] immunofixation study. The patient was evaluated by [facility] in May 2023 due to his elevated serum kappa lambda ratio and they determined that the patient did not have any plasma cell disorder. 4. 8. 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 The patient was referred to the [facility] genetic medicine program. Last documented LVEF: [...] mg orally daily Candidate for ICD or HACK SAW OPERATOR: Not a candidate due to the LVEF Orders: spironolactone (ALDACTONE) 25 mg tablet; Take 1 tablet (25 mg total) by mouth 1 (one) time each day. Chronic kidney disease, stage 2 (mild) 2 Stage 3a chronic kidney disease (CMS/[facility] V24, CM S/HCC V28) 11/23/2021 Spondylosis 11/23/2021 Renal osteodystrophy 11/23/2021 Plantar fasciitis 11/23/2021 Low back pain 11/23/2021 Lateral epicondylitis 11/23/2021 Overview (06/12/2023): s/p Modified [place] procedure, repair of conjoined tendon of extensor carpi radialis longus and brevis and of partial tear of the lateral collateral ligament 12/29/10- Dr Calni Melgar. Impotence of organic origin 11/23/2021 Impingement [...] CT scan is scheduled for 06[facility]20/2023 at [facility]. In the meantime, the patient [...] 12:25 PM EDT Ancillary Procedure [facility] 154 300 [facility] 154 [place] [address] 07/14/2024 8:41 AM EDT - 07/14/2024 11:59 PM EDT Hospital Encounter [facility] Xray [address] [place] [phone] Dysphagia, unspecified type Discharge Disposition: Home or Self Care 06/26/2024 10:45 AM EDT Office Visit Orthopedic Surgery [facility] 250 175 [facility] 250 [place] [address] Cheng Rea, DPM Closed displaced fracture of cuboid bone of right foot with malunion (Primary Dx); Follow-up exam; Tendinitis of right ankle; Plantar fascial fibromatosis 06/18/2024 4:35 PM EST Ancillary Procedure [facility] [address] [facility] 154 [place] [address] 06/12/2024 Telephone [facility] [address] [address] Musa Griffin MD Procedure (ILR Removal) 06/10/2024 11:05 AM EST Office Visit [address] [place] [phone] Musa Griffin MD Irritation symptom of skin (Primary Dx); Implantable loop recorder present 06/10/2024 Telephone [facility] [address] [place] [phone] Manuel Aldrich MD 05/29/2024 10:45 AM EST Office Visit Orthopedic Surgery - [place] 250 175 [facility] [address] [place] [address] Cheng Rea, DPM Closed displaced fracture of cuboid bone of right foot with malunion (Primary Dx); Tendinitis of right ankle; Plantar fascial fibromatosis 05/16/2024 11:30 AM EST - 05/16/2024 12:00 PM EST Surgery [facility] Cardiac Wash Oil Pump Operator Helper [address] [place] [phone] Musa Griffin MD Loop recorder insertion [[id number] (CPT??)] 05/16/2024 10:21 AM EST - 05/16/2024 11:59 PM EST Hospital Encounter [facility] Cardiac Wash Oil Pump Operator Helper [address] [place] [address] Musa Griffin MD Dilated cardiomyopathy (CMS/HCC V24, CMS/HCC V28) (Primary Dx); Palpitations; Near syncope Discharge Disposition: Home or Self Care from Last 3 Months Immunizations Name Administration Dates Next Due H1N1 Inj 02/16/2009 Hepatitis A Adult (Havrix; V aqta) 19yo and older 06/02/2004,02/21/2003 Hepatitis B (Ytthpog-S-Dagwm , Recombivax HB-Adult) 19yo and older 06/04/2003,12/19/2002,11/18/2002 [...] DX:Chronic constipation Diabetes mellitus type 2, uncomplicated ([facility] V24, [facility] V28) 04/05/2017 DX:Diabetes mellitus type 2, uncomplicated ([facility]) Dysphagia 06/21/2016 DX:Dysphagia Esophageal reflux 11/19/2017 [...] disease DX:Gastroesophageal reflux disease Gastroparesis diabeticorum ( [facility] V24, [facility] V28) DX:Gastroparesis diabeticoru m ([facility]) Hx of syphilis DX:Hx of syphili [...] AM EDT Office Visit Orthopedic Surgery - [place] 250 175 [facility] [address] [place] [phone] Cheng Rea DPM 175 [facility] [address] [place] [address] 09/10/2024 8:50 AM EDT Office Visit [facility] [place] [address] [place] [address] Manuel Aldrich MD [address] [place] [address] Dr [address]riaza [address] [place] [address] 12/08/2024 9:10 AM EDT Office Visit Gastroenterology - [place] [address] [place] [phone] Idalia Sandoval PA [address] [place] [address] Health Maintenance Due Date Last Done Comments [...] this topic Medical Devices Implanted Type Area Well Reactivator Operator Device Identifier Shelf Expiration Date Model / Serial / Lot Monitor Cardiac Insert Lux Dx Ii+ - [id number] - [id number] Implanted:Qty: 1 on 05/16/2024 by Musa Griffin MD at [facility] Cardiac Loop Recorder Left: Chest [employer] MGMT [id number] 09/12/2025 M312 / [id number] / Procedures Procedure Name Priority Date/Time Associated [...] period is included. Date Time Interrogation Session [id number] CV DEVICE CHECK Type Interrogation Session Remote Scheduled CV DEVICE CHECK Implantable Pulse Generator Well Reactivator Operator BSX CV DEVICE CHECK Implantable Pulse Generator Type ILR CV DEVICE CHECK Implantable Pulse Generator Model M312 CV DEVICE CHECK Implantable Pulse Generator Serial Number [id number] CV DEVICE CHECK Implantable Pulse Generator Implant Date [id number] CV DEVICE CHECK Battery Status Beginning of Service CV DEVICE CHECK Atrial Tachy Statistic AT/AF [place] Percent 0.00 CV DEVICE CHECK Date of [...] Signed Date: 07/14/2024 11:05 ET Workstation ID: [id number] Transcribed By: Self Edit Transcribed Date: 07/14/2024 10:38 ET Resident/PA/BUTTER MELTER: Angela Cabrera Narrative 07/14/2024 11:05 AM EDT [...] Signed Date: 07/14/2024 11:05 ET Workstation ID: [id number] Transcribed By: Self Edit Transcribed Date: 07/14/2024 10:38 ET Resident/PA/BUTTER MELTER: Angela Cabrera us Vamshi Man MD IMG [...] and I deployed the device using the [employer] apparatus. I noted good are sensing waves I closed incision with a 2-0 Vicryl. Dermabond was placed over the incision. Tegaderm dressing was placed over the incision. Device a [employer] Lux DX. Model number is M312. Serial number is [id number]. R waves are 0.34mV. P waves were noted. Impression Successful implantation of a [employer] MRI compatible implantable loop recorder us [...] LAB CHEMISTRY METHOD 05/12/2024 3:18 PM EST [facility] Calcium 9.4 8.5 - 10.5 mg/dL LAB CHEMISTRY METHOD 05/12/2024 3:18 PM EST [facility] Blood Venous blood specimen / Unknown Venipuncture / Unknown 05/12/2024 9:17 AM EST 05/12/2024 9:17 AM EST Musa Griffin MD LAB BLOOD ORDERABLES Final Result [facility] [address] [place] [address], [place] [phone] * Colonoscopy (02/12/2020) Colonoscopy no interpretation , abstracted Anatomical Region Laterality Modality Other Historical Provider HEALTH MAINTENANCE Final Result from Last 3 Months or Most Recently Relevant to Health Maintenance Insurance MEDICAID - [place] MEDICARE Advance Directives Documents on File Type Date Recorded Patient Automation Test Developer Expl anation Health Care Decision (hx) 07/31/2013 [...] (hx) 07/14/2013 AD DURBIN DIRECTIVE Care Teams Market Research Intern Relationship Specialty Start Date End Date Vamshi Man MD [address] [place] [address] PCP - General 10/06/10
--- OUTSIDE RECORDS SUMMARY | 2024-08-12 11:36 | XMS_ITS | Encounter Summary ---
Author Organization [facility] Address [address] [place] [address] Care Team Providers Care Laundry Housekeeping Aide Name Role Phone Vamshi Man MD Primary Care Provider [phone] Encounter Details Date Type Department Care Team (Late st Contact Info) Description 01/30/2024 2:30 PM EDT Hospital Encounter TH HISTORIC ENCOUNTERS EASTERN CONVERSION ONLY Kash Hammonds MD 175 [facility] 200 [place] [address] Social History Tobacco Use Types Packs/Day Years [...] AM EDT Office Visit Orthopedic Surgery - [place] 250 175 [facility] 250 [place] [address] Cheng Rea, DPFranco 175 [facility] 250 [place] [address] 09/10/2024 8:50 AM EDT Office Visit [facility] - [facility] 2 [facility] [address] [place] [address] Manuel Aldrich MD [address] [place] [address] [address] [place] [address] 12/08/2024 9:10 AM EDT Office Visit Gastroenterology - [place] [address] 175 [facility] [address] [place] [phone] Idalia Sandoval PA 175 [facility] 200 [place] [address] documented as of this encounter Visit Diagnoses Not on filedocumented in this encounter Care Teams Laundry Housekeeping Aide Relationship Specialty Start Date End Date Vamshi Man MD [address] [place] [address] PCP - General 10/06/10 documented as of this encounter
--- OUTSIDE RECORDS SUMMARY | 2024-08-12 11:36 | XMS_ITS | Clinical Summary ---
Author Organization [facility] Address [address] [place] [address] Care Team Providers Care Sinter Press Operator Name Role Phone Vamshi Man MD Primary Care Provider [phone] Allergies Active Allergy Reactions Criticality Noted Date [...] age to complete this topic Care Teams Sinter Press Operator Relationship Specialty Start Date End Date Vamshi Man MD [address] [place] [address] PCP - General Internal Medicine 05/02/23
--- OUTSIDE RECORDS SUMMARY | 2024-08-12 11:36 | XMS_ITS | Clinical Summary ---
Author Organization [facility] Address [address] [facility] [place] [address] Phone Care Team Providers Care Hired Worker Name Role Phone Vamshi Man MD Primary Care Provider [phone] Allergies Active Allergy Reactions Criticality Noted Date [...] Lateral epicondylitis 11/23/2021 Overview (11/23/2021): s/p Modified Kane procedure, repair of conjoined tendon of extensor [...] today Switched from Losartan to Entresto by Certified Surgical Tech/First Assistant recently Renal osteodystrophy 11/23/2021 Diabetes mellitus 01/06/2021 [...] Office Visit [facility] [address] [address] Caprice Mary ARNP Chronic kidney disease, stage 2 (mild) (Primary Dx); Hypertension; Vitamin D deficiency, not otherwise specified 07/24/2024 Orders Only [facility]. [address] [address] Caprice Mary ARNP 07/16/2024 Orders Only [facility]. [address] [address] Caprice Mary ARNP from Last 3 Months [...] Visit [facility] [address] [address] Caprice Mary ARNP [address] [address] Health Maintenance Due Date Last [...] 25-OH, Total 41.0 30.0 - 100.0 ng/mL [facility] Comment: Vitamin D deficiency has been defined by the [place] of Medicine and an Endocrine Society practice guideline as a level of serum 25-OH vitamin D less than 20 ng/mL (1,2). The Endocrine Society went on to further define vitamin D insufficiency as a level between 21 and 29 ng/mL (2). 1. IOM ([place] of Medicine). 2010. Dietary reference ?? intakes for calcium and D. Chowdhury [place]: The ?? National [employer]. 2. Nenita MF, Jeremie SPRINGER, Ronaldo DOSS, et al. ?? Evaluation, treatment, and prevention of vitamin D ?? deficiency: an Endocrine Society clinical practice ?? guideline. JCEM. 2010; 96(7):1911-30. 07/24/2024 10:1 2 AM EDT 07/24/2024 Caprice SMITH LAB BLOOD ORDERABLES Final Result [facility] [address] [place] [address] * (ABNORMAL) Hemoglobin A1C (07/16/2024 9:59 AM EDT) Hemoglobin A1C 6.0(H) %Hb [facility] Comment: Reference Range: [place] Diabetes Association (ADA) Guidelines: <5.7: Decreased risk for diabetes 5.7 - 6.4: Increased risk for diabetes >6.4: Ongoing Hyperglycemia of any cause <7.0: Glycemic control for adults with diabetes Estimated Average Glucose 126 mg/dL [facility] 07/16/2024 9:59 AM EDT 07/16/2024 Caprice SMITH LAB BLOOD ORDERABLES Final Result [facility] [address] [place] [address] * CBC Diff Ambiguous Default (07/16/2024 9:59 AM EDT) WBC 9.0 3.4 - 10.8 x10E3/uL [facility] RBC 4.66 4.14 - 5.80 x10E6/uL [facility] Hemoglobin 13.3 13.0 - 17.7 g/dL [facility] Hematocrit 40.8 37.5 - 51.0 % [facility] MCV 88 79 - 97 fL [facility] MCH 28.5 26.6 - 33.0 pg [facility] MCHC 32.6 31.5 - 35.7 g/dL [facility] RDW 13.4 11.6 - 15.4 % [facility] Platelets 235 150 - 450 x10E3/uL [facility] Neutrophils Relative 60 Not Estab. % [facility] Lymphocytes Relative 29 Not Estab. % [facility] Monocytes 9 Not Estab. % [facility] Eosinophils Relative 1 Not Estab. % [facility] Basophils Relative 1 Not Estab. % [facility] Neutrophils Absolute 5.4 1.4 - 7.0 x10E3/uL [facility] Lymphocytes Absolute 2.6 0.7 - 3.1 x10E3/uL [facility] Monocytes Absolute 0.8 0.1 - 0.9 x10E3/uL [facility] Eosinophils Absolute 0.1 0.0 - 0.4 x10E3/uL [facility] Basophils Absolute 0.1 0.0 - 0.2 x10E3/uL [facility] Immature Granulocytes 0 Not Estab. % [facility] Immature Grans (Absolute) 0.0 0.0 - 0.1 x10E3/uL [facility] Comment: A hand-written panel/profile was received from your office. In accordance with the [facility] Ambiguous Test Code Policy dated October 2002, we have assigned CBC with Differential/Platelet, Test Code #462032 to this request. If this is not the testing you wished to receive on this specimen, please contact the [facility] Client Inquiry/ Technical Services Department to clarify the test order. We appreciate your business. 07/16/2024 9:59 AM EDT 07/16/2024 [facility] LAB BLOOD ORDERABLES Final Result [facility] [address] [place] [phone] * Iron Panel (Fe, TIBC, TSAT) (07/16/2024 9:59 AM EDT) TIBC 335 250 - 450 ug/dL [facility] UIBC 258 111 - 343 ug/dL [facility] Iron 77 38 - 169 ug/dL [facility] Iron Saturation (TSat) 23 15 - 55 % [facility] 07/16/2024 9:59 AM EDT 07/16/2024 [facility] Final Result [facility] [address] [place] [address] * Urine Albumin / Creatinine Ratio (07/16/2024 9:59 AM EDT) Pathologist [facility] Creatinine, Ur 132.3 Not Estab. mg/dL [facility] Albumin, Urine 6.8 Not Estab. ug/mL [facility] Albumin/Creatin ine Ratio 5 0 - 29 mg/g creat [facility] Comment: ? Normal: ?0 - ??29 ? Moderately increased: 30 - 300 ? Severely increased: ? >300 07/16/2024 9:59 AM EDT 07/16/2024 Caprice Mary [facility] LAB URINE ORDERABLES Final Result Performing Organization Address [facility]/ZIP Co de Phone Number [facility] [address] [place] [address] * Magnesium (07/16/2024 9:59 AM EDT) Pathologist [facility] Magnesium 1.8 1.6 - 2.3 mg/dL [facility] 07/16/2024 9:59 AM EDT 07/16/2024 [facility] LAB BLOOD ORDERABLES Final Result Performing Organization Address [facility] Co de Phone Number [facility] [address] [place] [address] * Ferritin (07/16/2024 9:59 AM EDT) Ferritin 73 30 - 400 ng/mL [facility] 07/16/2024 9:59 AM EDT 07/16/2024 Caprice SMITH LAB BLOOD ORDERABLES Final Result [facility] [address] [place] [address] * (ABNORMAL) Renal Function Panel (07/16/2024 9:59 AM EDT) Glucose 83 70 - 99 mg/dL [facility] BUN 14 6 - 24 mg/dL [facility] Creatinine 1.07 0.76 - 1.27 mg/dL [facility] eGFR CKD-EPI CR 2020 80 >59 mL/min/1.7 3 [facility] BUN/Creatinine Ratio 13 9 - 20 [facility] Sodium 135 134 - 144 mmol/L [facility] Potassium 4.2 3.5 - 5.2 mmol/L [facility] Chloride 101 96 - 106 mmol/L [facility] Bicarbonate (CO2) 19(L) 20 - 29 mmol/L [facility] Calcium 9.1 8.7 - 10.2 mg/dL [facility] Albumin 4.6 3.8 - 4.9 g/dL [facility] Phosphorus 3.2 2.8 - 4.1 mg/dL [facility] 07/16/2024 9:59 AM EDT 07/16/2024 Caprice Mary [facility] LAB BLOOD ORDERABLES Final Result [facility] [address] [place] [address] from Last 3 Months Insurance Medicaid [place] Care Teams Hired Worker Relationship Specialty Start Date End Date Vamshi Man MD [address] [place] [address] PCP - General 04/26/20
== END 2024-08-12 09:13 | disposition home or self-care (01) ==
LOC: HO.HKASLDS 09:12
PROVIDERS: PCP Internal Medicine; Visit Provider Internal Medicine Nephrology
DX: N28.1 Cyst of kidney, acquired (principal); I10 Essential (primary) hypertension; R10.9 Unspecified abdominal pain; R31.29 Other microscopic hematuria
CPT/HCPCS: 87086; 99212

== ENCOUNTER 2024-08-12 09:12 | Outpatient (AMB) | payer MEDICARE, MEDICAID, SELFPAY ==
--- NOTE | 2024-08-12 09:27 | HO.NEPHOV ---
Vital Signs 08/12/24 09:33 Height 6 ft 2 in Weight 241 lb 4 oz BMI 31.0 BP 120/60 Blood Pressure Location Lt brachial Position Sitting Pulse 90 Pulse Source Pulse Oximeter Pulse Oximetry (%) 98 Oxygen Delivery Method Room Air Intake Visit Reasons: 6 mon follow up-Conf Infrastructure Developer Required: Yes Infrastructure Developer Language: Electrical Hardware Engineer Services: Infrastructure Developer Present Infrastructure Developer Name: Poly [id number] Information Interpreted: clinical only Accompanied by: Self / Same As Patient Allergies Penicillins [PENICILLINS] Allergy (Unknown, Verified 08/12/24 09:33) RASH lactose Adverse Reaction (Intermediate, Uncoded 05/26/24 10:11) Abdominal Pain HPI Comments Details: Elissa was seen in follow up for his hypertension and renal cysts. He had pancreatic cyst as well and had been having yearly MRI. He had seen Dr. Brooks before and is here for me to continue his renal care. He does not have any flank pain, nephrolithiasis, hematuria. He has taken Jardiance before and had urinary symptoms from it and was discontinued. It was replaced by glipizide, the dose of which he has adjusted as he thought he had similar symptoms from it like Jardiance. He is on insulin and his blood sugar is fair. He is also on a Entresto and spironolactone. He denies any chest pain, shortness of breath, proximal nocturnal dyspnea, orthopnea, pedal edema or orthostatic symptoms. He claims to be compliant with medications. He denies taking any nonsteroidal anti-inflammatories. He has no family history of any ESRD or renal transplantation. He denies any significant proteinuria or retinopathy. His last serum creatinine had been stable. He has been having flank pain as well as back pain and M/S hematuria for which he was prescribed antibiotics which he took only for 3 days as it was causing nausea. [facility] Medical History (Updated 08/12/24 @ 10:02 by Jose Whitney MD) Diverticulosis Osteoarthritis IBS (irritable bowel syndrome) Hyperlipidemia CAD (coronary artery disease) Nonischemic cardiomyopathy CHF (congestive heart failure) Sleep apnea Obesity (BMI 30.0-34.9) Left flank discomfort Upper abdominal pain GERD (gastroesophageal reflux disease) Elevated cholesterol HTN (hypertension) Constipation by delayed colonic transit Bleeding hemorrhoids Diabetes mellitus Asthma Surgical History History of dacryocystorhinostomy H/O foot surgery History of esophagogastroduodenoscopy (EGD) History of tonsillectomy History of sinus surgery History of neck surgery History of carpal tunnel release History of release of tendon History of umbilical hernia repair History of colonoscopy Family History Mother History of colon cancer Brother History of liver cancer Maternal Aunt History of colon cancer Father No problems noted. 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 Review of Systems Const All systems reviewed & are unremarkable except as noted in HPI and below Physical Exam Vital Signs: Last Vital Signs Pulse 90 08/12/24 09:33 BP 120/60 08/12/24 09:33 Pulse Ox 98 08/12/24 09:33 Oxygen Delivery Method Room Air 08/12/24 09:33 BMI result Body Mass Index 31.0 Const General: comfortable and no acute distress Orientation/consciousness: patient oriented x3 HEENT Head: Yes normocephalic Mouth: Normal oral and palatal mucosa present Eyes EOM: EOMs intact bilaterally Neck Neck: Yes supple Resp Auscultation: clear to auscultation bilaterally Cardio Jugular venous distension: no JVD Rate: regular rate GI Palpation (GI): Soft to palpation Auscultation: normal bowel sounds General: Yes no CVA tenderness Back/Spine/Pelvis Back: no CVA tenderness Skin General skin exam: no rashes or lesions noted Neuro General: patient oriented x3 and moves all extremities Extrem General: Yes no pedal edema Results Reviewed Nephrology Results: Hgb 13.2 g/dl (14.0-18.0) L 04/17/24 WBC 7.3 X10*3/uL (4.8-10.8) 04/17/24 Plt Count 219 X10*3/uL (160-400) 04/17/24 Sodium 140 mmol/L (135-145) 08/05/24 Potassium 5.1 mmol/L (3.3-5.1) 08/05/24 Chloride 107 mmol/L (96-108) 08/05/24 Carbon Dioxide 26 mmol/L (22-29) 08/05/24 BUN 19 mg/dL (9-16) H 08/05/24 Creatinine 0.92 mg/dL (0.5-1.4) 08/05/24 Calcium 9.5 mg/dL (8.4-10.2) 04/17/24 Urine Creatinine 89.24 mg/dL 08/05/24 Protein/Creatinin Ratio TNP 08/05/24 Assessment & Plan Assessment & Plan (1) Renal cyst: Code(s): N28.1 - Cyst of kidney, acquired Category: Medical (2) HTN (hypertension): Code(s): I10 - Essential (primary) hypertension Category: Medical Qualifiers: Hypertension type: primary hypertension Qualified Code(s): I10 - Essential (primary) hypertension (3) Flank pain: Code(s): R10.9 - Unspecified abdominal pain Category: Medical (4) Microscopic hematuria: Code(s): R31.29 - Other microscopic hematuria Category: Medical Plan Elissa has longstanding hypertension and is on multiple antihypertensive medications. He needs to lose weight. He needs to cut back sodium in the diet. He denied any cardiomyopathy. He has renal cysts for long time which has been followed by yearly imaging when he gets the scanned for pancreatic cyst. He is not known to have any significant proteinuria. He had biopsy of the renal lesions which were unremarkable as per the patient. I ordered blood work and urine studies. Renal USS was ordered. Answered all questions. Follow-up given. Orders: Orders CT abdomen pelvis wo/w IV con Today R10.9 - Unspecified abdominal pain, R31.29 - Other microscopic hematuria Creatinine 6 Months I10 - Essential (primary) hypertension, N28.1 - Cyst of kidney, acquired, R10.9 - Unspecified abdominal pain, R31.29 - Other microscopic hematuria Electrolytes 6 Months I10 - Essential (primary) hypertension, N28.1 - Cyst of kidney, acquired, R10.9 - Unspecified abdominal pain, R31.29 - Other microscopic hematuria Urine Culture Today R10.9 - Unspecified abdominal pain, R31.29 - Other microscopic hematuria Blood Urea Nitrogen 6 Months I10 - Essential (primary) hypertension, N28.1 - Cyst of kidney, acquired, R10.9 - Unspecified abdominal pain, R31.29 - Other microscopic hematuria Coding Level of Care Code Est Pt Level 4 (09178) Diagnoses Renal cyst N28.1 Primary hypertension I10 Hypertension type: primary hypertension Flank pain R10.9 Microscopic hematuria R31.29
[2024-08-12 09:33] VITALS: BP 120/60; PULSE 90; O2SAT 98; BMI 31.0
--- OUTSIDE RECORDS SUMMARY | 2024-08-12 09:59 | XMS_ITS | Clinical Summary ---
Author Organization [facility] Address [address] [place] [address] Care Team Providers Care Financial Intern Name Role Phone Vamshi Man MD Primary Care Provider [phone] Allergies Active Allergy Reactions Criticality Noted Date [...] age to complete this topic Care Teams Financial Intern Relationship Specialty Start Date End Date Vamshi Man MD [address] [place] [phone] PCP - General Internal Medicine 05/02/23
--- OUTSIDE RECORDS SUMMARY | 2024-08-12 09:59 | XMS_ITS | Clinical Summary ---
Author Organization [facility] Address [address] [place] [address] Phone Care Team Providers Care Air Pollution Control Engineer Name Role Phone Vamshi Man MD Primary Care Provider [phone] Allergies Active Allergy Reactions Criticality Noted Date Comments Food Allergy Formula 02/17/2021 Fresh peaches-itchy mout, throat and lips swell. Latex Rash 02/17/2021 Penicillins Rash Low 12/17/2009 Medications albuterol HFA (PROAIR HFA ; PROVENTIL HFA ; VENTOLIN HFA) 90 mcg/actuation inhaler as needed. Active ALPRAZolam (XANAX) 2 mg tablet Take 1 tablet (2 mg total) by mouth 2 (two) times a day. Active aspirin 81 mg EC tablet Take 1 tablet (81 mg total) by mouth 1 (one) time each day. Active buPROPion SR (WELLBUTRIN SR) 150 mg 12 hr tablet Take 1 tablet (150 mg total) by mouth. Active cetirizine (ZyrTEC) 10 mg tablet Take 1 tablet (10 mg total) by mouth. Active cholecalciferol (VITAMIN D-3) 25 mcg (1,000 unit) tablet Take 1 tablet (1,000 Units total) by mouth 1 (one) time each day. Active cromolyn (OPTICROM) 4 % ophthalmic solution Administer into affected eye(s) 1 (one) time each day if needed. Active diclofenac (VOLTAREN) 1 % topical gel Apply 4 g topically. Active diclofenac (VOLTAREN) 1 % topical gel Apply 4 g topically. Active DULoxetine (CYMBALTA) [address] capsule Take 1 capsule (60 mg total) by mouth 1 (one) time each day. Active fluticasone HFA (Flovent HFA) 110 mcg/actuation inhaler Inhale 1 puff by mouth 1 (one) time each day. Active glipiZIDE (GLUCOTROL) 5 mg tablet Take 1 tablet (5 mg total) by mouth 2 (two) times a day before meals. Active ibuprofen (ADVIL,MOTRIN) 800 mg tablet Take 1 tablet (800 mg total) by mouth as needed. Active latanoprost (XALATAN) 0.005 % ophthalmic solution Administer 1 drop into affected eye(s) 1 (one) time each day. Active methadone (DOLOPHINE) 10 mg tablet Take 1 tablet (10 mg total) by mouth 1 (one) time each day if needed. Active montelukast (SINGULAIR) 10 mg tablet Take 1 tablet (10 mg total) by mouth. Active naproxen (EC NAPROSYN) 500 mg EC tablet Take 1 tablet (500 mg total) by mouth 1 (one) time each day. Active senna-docusate (PERICOLACE) 8.6-50 mg per tablet Take 1 tablet by mouth 4 times daily as needed. Active tamsulosin (FLOMAX) 0.4 mg 24 hr capsule Take 1 capsule (0.4 mg total) by mouth 2 (two) times a day. Take 30 mins after same meal every day. Active testosterone cypionate (DEPO-TESTOTERO NE) 200 mg/mL injection Inject as directed See administration instructions. Active tirzepatide (Mounjaro) 7.5 mg/0.5 mL pen injector Inject 0.5 mL (7.5 mg total) under the skin. Active zolpidem (AMBIEN) 10 mg tablet Take 1 tablet (10 mg total) by mouth. Active atorvastatin (LIPITOR) 80 mg tablet Take 1 tablet (80 mg total) by mouth 1 (one) time each day. for 360 days 024 2024 Active metformin HCl (METFORMIN ORAL) Take 750 tablets by mouth 1 (one) time each day. Active carvediloL (COREG) 3.125 mg tablet Take 1 tablet (3.125 mg total) by mouth 2 (two) times a day with meals. Dose has been reduced from 6.25mg bid to 3.125mg bid pt aware 180 tablet 1 Active spironolactone (ALDACTONE) 25 mg tabletIndicatio ns:Chronic HFrEF (heart failure with reduced ejection fraction) (CMS/HCC V24, CMS/HCC V28) Take 1 tablet (25 mg total) by mouth 1 (one) time each day. 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 Do not crush or chew. 30 each 11 025 2025 Active ondansetron (ZOFRAN) 4 mg tablet Take 1 tablet (4 mg total) by mouth every 8 (eight) hours if needed for nausea. 30 tablet 3 Active Toujeo Max U-300 SoloStar 300 unit/mL (3 mL) CONCENTRATED injection pen Inject 45 Units under the skin at bedtime. Active Mounjaro 15 mg/0.5 mL injection Inject 50 mg under the skin every 7 (seven) days. Active pantoprazole (PROTONIX) 40 mg EC tablet TAKE 1 TABLET BY MOUTH 2 TIMES DAILY (BEFORE MEALS). 180 tablet 3 Active Linzess 290 mcg capsule TAKE 1 CAPSULE BY MOUTH DAILY. 90 capsule 1 025 Active sacubitriL-vals tabatha (Entresto) 49-51 mg per tablet TAKE 1 TABLET BY MOUTH TWICE DAILY 180 tablet 1 025 Active sacubitriL-vals tabatha (ENTRESTO) 49-51 mg per tablet Take 1 tablet by mouth 2 (two) times a day. 2024 Discontinued Active Problems Problem Noted Date Diagnosed Date Palpitations 03/28/2024 Assessment & Plan (03/28/2024 1:13 PM EST): The patient continues to have episodes of palpitations. He recently completed a 30-day ambulatory hospital monitor. He had 38 symptomatic events during [...] actual syncope. During a recent 30-day ambulatory hospital monitor, the patient was found to have [...] near syncope in the past. 30-day ambulatory hospital monitor showed instances of high-grade AV block with a pause of up to 3 seconds. As a result of this, his carvedilol was decreased from 6.25 mg orally twice a day down to 3.5 mg orally twice a day. After the changing the dose of the beta-sabiha, no further episodes of high-grade AV block or sinus pauses were noted on the ambulatory hospital monitor. Of note, there was no evidence [...] mg orally daily Candidate for ICD or SENIOR SSIS DEVELOPER: Not a candidate due to the LVEF [...] immunofixation study. The patient was evaluated by [facility] in May 2023 due to his [...] orally daily ? Candidate for ICD or SENIOR SSIS DEVELOPER: Not a candidate due to the LVEF [...] immunofixation study. The patient was evaluated by [facility] in May 2023 due to his elevated serum kappa lambda ratio and they determined that the patient did not have any plasma cell disorder. 4. 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 The patient was referred to the [facility] genetic medicine program. Last documented LVEF: [...] SGLT2 inhibitor: None Candidate for ICD or SENIOR SSIS DEVELOPER: Not a candidate due to the LVEF [...] was referred for an evaluation with the [facility] service who determined that the patient did not have a plasma cell disorder and therefore does not have AL amyloidosis. The patient's brother has a history of a cardiomyopathy and cardiac arrhythmias and is currently hospitalized in [place] awaiting a cardiac transplant. The patient underwent genetic testing ([employer] comprehensive cardiomyopathy panel) and the test showed that he is a carrier of 1 pathogenic variant in the gene [id number] which is associated with an autosomal recessive primary carnitine deficiency. We refer the patient for an evaluation with the [facility] genetics program but the patient states [...] immunofixation study. The patient was evaluated by [facility] in May 2023 due to his elevated serum kappa lambda ratio and they determined that the patient did not have any plasma cell disorder. 4. 8. 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 The patient was referred to the [facility] genetic medicine program. Last documented LVEF: [...] mg orally daily Candidate for ICD or SENIOR SSIS DEVELOPER: Not a candidate due to the LVEF Orders: spironolactone (ALDACTONE) 25 mg tablet; Take 1 tablet (25 mg total) by mouth 1 (one) time each day. Chronic kidney disease, stage 2 (mild) 2 Stage 3a chronic kidney disease (CMS/[facility] V24, CM S/HCC V28) 11/23/2021 Spondylosis 11/23/2021 [...] CT scan is scheduled for 06/20/2023 at [facility]. In the meantime, the patient will continue [...] Description 07/22/2024 12:25 PM EDT Ancillary Procedure [facility] 154 300 [facility] [address] [place] [address] 07/14/2024 8:41 AM EDT - 07/14/2024 11:59 PM EDT Hospital Encounter [facility] [address] [place] [phone] Dysphagia, unspecified type Discharge Disposition: Home or Self Care 06/26/2024 10:45 AM EDT Office Visit Orthopedic Surgery [facility] 250 175 [facility] [address] [place] [phone] Cheng Rea, DPM Closed displaced fracture of cuboid bone of right foot with malunion (Primary Dx); Follow-up exam; Tendinitis of right ankle; Plantar fascial fibromatosis 06/18/2024 4:35 PM EST Ancillary Procedure [facility] [address] [facility] [address] [place] [address] 06/12/2024 Telephone [facility] [address] [phone] Musa Griffin MD Procedure (ILR Removal) 06/10/2024 11:05 AM EST Office Visit [address] [place] [phone] Musa Griffin MD Irritation symptom of skin (Primary Dx); Implantable loop recorder present 06/10/2024 Telephone [facility] [address] [place] [phone] Manuel Aldrich MD 05/29/2024 10:45 AM EST Office Visit Orthopedic Surgery [facility] [address] [facility] [address] [place] [phone] Cheng Rea, DPM Closed displaced fracture of cuboid bone of right foot with malunion (Primary Dx); Tendinitis of right ankle; Plantar fascial fibromatosis 05/16/2024 11:30 AM EST - 05/16/2024 12:00 PM EST Surgery [facility] [place] [address] [place] [phone] Musa Griffin MD Loop recorder insertion [[id number] (CPT??)] 05/16/2024 10:21 AM EST - 05/16/2024 11:59 PM EST Hospital Encounter [facility] [place] [address] [place] [phone] Musa Griffin MD Dilated cardiomyopathy (CMS/HCC V24, CMS/HCC V28) (Primary Dx); Palpitations; Near syncope Discharge Disposition: Home or Self Care from Last 3 Months Immunizations Name Administration Dates Next Due H1N1 Inj 02/16/2009 Hepatitis A Adult (Havrix; V aqta) 19yo and older 06/02/2004,02/21/2003 Hepatitis B (Tfwhauh-B-Tmcrg , Recombivax HB-Adult) 19yo and older 06/04/2003,12/19/2002,11/18/2002 [...] DX:Chronic constipation Diabetes mellitus type 2, uncomplicated ([facility] V24, [facility] V28) 04/05/2017 DX:Diabetes mellitus type 2, uncomplicated ([facility]) Dysphagia 06/21/2016 DX:Dysphagia Esophageal reflux 11/19/2017 DX:Esophageal [...] disease DX:Gastroesophageal reflux disease Gastroparesis diabeticorum ( [facility] V24, [facility] V28) DX:Gastroparesis diabeticoru m ([facility]) Hx of syphilis DX:Hx of syphili s [...] Care Team (Late st Contact Info) Description 08/28/2024 9:45 AM EDT Office Visit [facility] [address] [facility] [address] [place] [phone] Cheng eRa DPM [address] [facility] [address] [place] [address] 09/10/2024 8:50 AM EDT Office Visit [facility] [place] [address] [place] [address] Manuel Aldrich MD [address] [place] [address] [address] [place] [address] 12/08/2024 9:10 AM EDT Office Visit Gastroenterology - [facility] [address] [place] [phone] Idalia Sandoval PA [address] [place] [address] [place] [address] Health Maintenance Due Date Last Done Comments [...] 11/18/2002 Hepatitis A Vaccines Completed 06/02/2004, 02/22/20 Zoster Vaccines Completed 02/06/2018, 11/26/2017 Pneumococcal Vaccine: [...] this topic Medical Devices Implanted Type Area Financial Foundations Representative Device Identifier Shelf Expiration Date Model / Serial / Lot Monitor Cardiac Insert Lux Dx Ii+ - [id number] - [id number] Implanted:Qty: 1 on 05/16/2024 by Musa Griffin MD at [facility] Cardiac Loop Recorder Left: Chest [employer] MGMT [id number] 09/12/2025 [id number] / [id number] / Procedures Procedure Name Priority Date/Time Associated [...] 05/16/2024 11:34 AM EST Palpitations Near syncope BASIC METABOLIC PANEL Routine 05/12/2024 9:17 AM EST Syncope HM COLONOSCOPY Routine 02/12/2020 from Last 3 Months or Most Recently Relevant to Health Maintenance Results * Cardiac device check - Remote- MURJ (07/22/2024 12:24 PM EDT) Only the most recent of2 resultswithin the time period is included. Date Time Interrogation Session [id number] CV DEVICE CHECK Type Interrogation Session Remote Scheduled CV DEVICE CHECK Implantable Pulse Generator Financial Foundations Representative BSX CV DEVICE CHECK Implantable Pulse Generator Type ILR CV DEVICE CHECK Implantable Pulse Generator Model M312 CV DEVICE CHECK Implantable Pulse Generator Serial Number [id number] CV DEVICE CHECK Implantable Pulse Generator Implant Date 20240516 CV DEVICE CHECK Battery Status Beginning of Service CV DEVICE CHECK Atrial Tachy Statistic AT/AF [place] Percent 0.00 CV DEVICE CHECK Date of [...] Signed Date: 07/14/2024 11:05 ET Workstation ID: [id number] Transcribed By: Self Edit Transcribed Date: 07/14/2024 10:38 ET Resident/PA/CNC TECHNICIAN: Angela Cabrera Narrative 07/14/2024 11:05 AM EDT [...] Signed Date: 07/14/2024 11:05 ET Workstation ID: [id number] Transcribed By: Self Edit Transcribed Date: 07/14/2024 10:38 ET Resident/PA/CNC TECHNICIAN: Angela Cabrera us Vamshi Man MD IMG [...] and I deployed the device using the [employer] apparatus. I noted good are sensing waves I closed incision with a 2-0 Vicryl. Dermabond was placed over the incision. Tegaderm dressing was placed over the incision. Device a [employer] Lux DX. Model number is M312. Serial number is [id number]. R waves are 0.34mV. P waves were noted. Impression Successful implantation of a [email or web address] MRI compatible implantable loop recorder us Manuel Aldrich MD CV ELECTROPHYSIOLOGY P ROCEDURES Final Result * Basic metabolic panel (05/12/2024 9:17 AM EST) Sodium 135 133 - 145 mmol/L LAB CHEMISTRY METHOD 05/12/2024 3:18 PM [facility] Potassium 4.5 3.5 - 5.5 mmol/L LAB CHEMISTRY METHOD 05/12/2024 3:18 PM [facility] Chloride 102 96 - 110 mmol/L LAB CHEMISTRY METHOD 05/12/2024 3:18 PM [facility] CO2 25 21 - 32 mmol/L LAB CHEMISTRY METHOD 05/12/2024 3:18 PM [facility] Anion Gap 8 3 - 11 LAB CHEMISTRY METHOD 05/12/2024 3:18 PM [facility] Glucose 84 70 - 100 mg/dL LAB CHEMISTRY METHOD 05/12/2024 3:18 PM [facility] BUN 16 5 - 25 mg/dL LAB CHEMISTRY METHOD 05/12/2024 3:18 PM [facility] Creatinine 0.99 0.70 - 1.30 mg/dL LAB CHEMISTRY METHOD 05/12/2024 3:18 PM [facility] eGFR 88 >=60 mL/min/1. 73m2 LAB CHEMISTRY METHOD 05/12/2024 3:18 PM [facility] Comment:Calculation based on the??Chronic Kidney Disease Epidemiology Collaboration (CKD-EPI) equation refit??without adjustment for race. BUN/Creatinine Ratio 16.2 LAB CHEMISTRY METHOD 05/12/2024 3:18 PM EST [facility] Calcium 9.4 8.5 - 10.5 mg/dL LAB CHEMISTRY METHOD 05/12/2024 3:18 PM EST [facility] Blood Venous blood specimen / Unknown Venipuncture / Unknown 05/12/2024 9:17 AM EST 05/12/2024 9:17 AM EST Musa Griffin MD LAB BLOOD ORDERABLES Final Result [facility] [address] [place] [address], [place] [phone] * Colonoscopy (02/12/2020) Colonoscopy no interpretation , abstracted Anatomical Region Laterality Modality Other Historical Provider HEALTH MAINTENANCE Final Result from Last 3 Months or Most Recently Relevant to Health Maintenance Insurance MEDICA[place] - [place] MEDICARE Advance Directives Documents on File Type Date Recorded 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
--- OUTSIDE RECORDS SUMMARY | 2024-08-12 09:59 | XMS_ITS | Clinical Summary ---
Author Organization [facility] Address 100 [facility] 20 0 [place] [address] Phone Care Team Providers Care Shank Stitcher Name Role Phone Vamshi Man MD Primary Care Provider [phone] Allergies Active Allergy Reactions Criticality Noted Date [...] Lateral epicondylitis 11/23/2021 Overview (11/23/2021): s/p Modified [place] procedure, repair of conjoined tendon of extensor [...] today Switched from Losartan to Entresto by Ballistic Expert recently Renal osteodystrophy 11/23/2021 Diabetes mellitus 01/06/2021 [...] Office Visit [facility]. [address] [address] Caprice Mary ARNP Chronic kidney disease, stage 2 (mild) (Primary Dx); Hypertension; Vitamin D deficiency, not otherwise specified 07/24/2024 Orders Only [facility]. [address] [address] Caprice Mary ARNP 07/16/2024 Orders Only [facility]. [address] [address] Caprice Mary ARNP from Last 3 Months [...] Visit [facility] [address] [address] Caprice Mary ARNP [address] [address] Health Maintenance Due Date Last [...] 25-OH, Total 41.0 30.0 - 100.0 ng/mL [facility] Comment: Vitamin D deficiency has been defined by the [place] of Medicine and an Endocrine Society practice guideline as a level of serum 25-OH vitamin D less than 20 ng/mL (1,2). The Endocrine Society went on to further define vitamin D insufficiency as a level between 21 and 29 ng/mL (2). 1. IOM ([place] of Medicine). 2010. Dietary reference ?? intakes for calcium and D. [place]: The ?? National ftopia Press. 2. Nenita MF, Jeremie SPRINGER, Ronaldo DOSS, et al. ?? Evaluation, treatment, and prevention of vitamin D ?? deficiency: an Endocrine Society clinical practice ?? guideline. JCEM. 2010; 96(7):1911-30. 07/24/2024 10:1 2 AM EDT 07/24/2024 Caprice SMITH LAB BLOOD ORDERABLES Final Result [facility] [address] [place] [address] * (ABNORMAL) Hemoglobin A1C (07/16/2024 9:59 AM EDT) Hemoglobin A1C 6.0(H) %Hb [facility] Comment: Reference Range: [place] Diabetes Association (ADA) Guidelines: <5.7: Decreased risk for diabetes 5.7 - 6.4: Increased risk for diabetes >6.4: Ongoing Hyperglycemia of any cause <7.0: Glycemic control for adults with diabetes Estimated Average Glucose 126 mg/dL [facility] 07/16/2024 9:59 AM EDT 07/16/2024 Caprice SMITH LAB BLOOD ORDERABLES Final Result [facility] [address] [place] [address] * CBC Diff Ambiguous Default (07/16/2024 9:59 AM EDT) WBC 9.0 3.4 - 10.8 x10E3/uL [facility] RBC 4.66 4.14 - 5.80 x10E6/uL [facility] Hemoglobin 13.3 13.0 - 17.7 g/dL [facility] Hematocrit 40.8 37.5 - 51.0 % [facility] MCV 88 79 - 97 fL [facility] MCH 28.5 26.6 - 33.0 pg [facility] MCHC 32.6 31.5 - 35.7 g/dL [facility] RDW 13.4 11.6 - 15.4 % [facility] Platelets 235 150 - 450 x10E3/uL [facility] Neutrophils Relative 60 Not Estab. % [facility] Lymphocytes Relative 29 Not Estab. % [facility] Monocytes 9 Not Estab. % [facility] Eosinophils Relative 1 Not Estab. % [facility] Basophils Relative 1 Not Estab. % [facility] Neutrophils Absolute 5.4 1.4 - 7.0 x10E3/uL [facility] Lymphocytes Absolute 2.6 0.7 - 3.1 x10E3/uL [facility] Monocytes Absolute 0.8 0.1 - 0.9 x10E3/uL [facility] Eosinophils Absolute 0.1 0.0 - 0.4 x10E3/uL [facility] Basophils Absolute 0.1 0.0 - 0.2 x10E3/uL [facility] Immature Granulocytes 0 Not Estab. % [facility] Immature Grans (Absolute) 0.0 0.0 - 0.1 x10E3/uL [facility] Comment: A hand-written panel/profile was received from your office. In accordance with the [facility] Ambiguous Test Code Policy dated October 2002, we have assigned CBC with Differential/Platelet, Test Code #907381 to this request. If this is not the testing you wished to receive on this specimen, please contact the [facility] Client Inquiry/ Technical Services Department to clarify the test order. We appreciate your business. 07/16/2024 9:59 AM EDT 07/16/2024 Cap[facility] LAB BLOOD ORDERABLES Final Result [facility] [address] [place] [address] * Iron Panel (Fe, TIBC, TSAT) (07/16/2024 9:59 AM EDT) TIBC 335 250 - 450 ug/dL [facility] UIBC 258 111 - 343 ug/dL [facility] Iron 77 38 - 169 ug/dL [facility] Iron Saturation (TSat) 23 15 - 55 % [facility] 07/16/2024 9:59 AM EDT 07/16/2024 [facility]LO[facility] ORDERAB[facility] Final Result [facility] [address] [place] [address] * Urine Albumin / Creatinine Ratio (07/16/2024 9:59 AM EDT) Pathologist [facility] Creatinine, Ur 132.3 Not Estab. mg/dL [facility] Albumin, Urine 6.8 Not Estab. ug/mL [facility] Albumin/Creatin ine Ratio 5 0 - 29 mg/g creat [facility] Comment: ? Normal: ?0 - ??29 ? Moderately increased: 30 - 300 ? Severely increased: ? >300 07/16/2024 9:59 AM EDT 07/16/2024 Caprice Mary [facility] LAB URINE ORDERABLES Final Result Performing Organization Address [facility]/ZIP Co de Phone Number [facility] [address] [place] [address] * Magnesium (07/16/2024 9:59 AM EDT) Pathologist [facility] Magnesium 1.8 1.6 - 2.3 mg/dL [facility] 07/16/2024 9:59 AM EDT 07/16/2024 Cap[facility] LAB BLOOD ORDERABLES Final Result Performing Organization Address [facility] Co de Phone Number [facility] [address] [place] [address] * Ferritin (07/16/2024 9:59 AM EDT) Ferritin 73 30 - 400 ng/mL [facility] 07/16/2024 9:59 AM EDT 07/16/2024 Caprice SMITH LAB BLOOD ORDERABLES Final Result [facility] [address] [place] [address] * (ABNORMAL) Renal Function Panel (07/16/2024 9:59 AM EDT) Glucose 83 70 - 99 mg/dL [facility] BUN 14 6 - 24 mg/dL [facility] Creatinine 1.07 0.76 - 1.27 mg/dL [facility] eGFR CKD-EPI CR 2020 80 >59 mL/min/1.7 3 [facility] BUN/Creatinine Ratio 13 9 - 20 [facility] Sodium 135 134 - 144 mmol/L [facility] Potassium 4.2 3.5 - 5.2 mmol/L [facility] Chloride 101 96 - 106 mmol/L [facility] Bicarbonate (CO2) 19(L) 20 - 29 mmol/L [facility] Calcium 9.1 8.7 - 10.2 mg/dL [facility] Albumin 4.6 3.8 - 4.9 g/dL [facility] Phosphorus 3.2 2.8 - 4.1 mg/dL [facility] 07/16/2024 9:59 AM EDT 07/16/2024 Caprice Mary LUIS LAB BLOOD ORDERABLES Final Result [facility] [address] [place] [address] from Last 3 Months Insurance Medicaid [place] Medicare Medicaid [place] Care Teams Shank Stitcher Relationship Specialty Start Date End Date Vamshi Man MD [address] [place] [address] PCP - General 04/26/20
--- OUTSIDE RECORDS SUMMARY | 2024-08-12 09:59 | XMS_ITS | Encounter Summary ---
Author Organization [facility] Address [address] [place] [address] Care Team Providers Care Observer Gravity Prospecting Name Role Phone Vamshi Man MD Primary Care Provider [phone] Encounter Details Date Type Department Care Team (Late st Contact Info) Description 01/30/2024 2:30 PM EDT Hospital Encounter TH HISTORIC ENCOUNTERS EASTERN CONVERSION ONLY Kash Hammonds MD 175 [facility] 200 [place] [address] Social History Tobacco Use Types Packs/Day Years [...] Department Care Team (Late Contact Info) Description 08/28/2024 9:45 AM EDT Office Visit Orthopedic Surgery - [place] 250 175 [facility] 250 [place] [address] Cheng Rea, DPFranco 175 [facility] 250 [place] [address] 09/10/2024 8:50 AM EDT Office Visit [facility] [address] [facility] [address] [place] [address] Manuel Aldrich MD [address] [place] [address] [address] Arsal[address] [place] [address] 12/08/2024 9:10 AM EDT Office Visit Gastroenterology - [place] [address] [facility] [address] [place] [phone] Idalia Sandoval PA 175 [facility] 200 [place] [address] documented as of this encounter Visit Diagnoses Not on filedocumented in this encounter Care Teams Observer Gravity Prospecting Relationship Specialty Start Date End Date Vamshi Man MD [address] [place] [address] PCP - General 10/06/10 documented as of this encounter
== END 2024-08-12 10:07 | disposition home or self-care (01) ==
LOC: HO.HKAS 09:13
PROVIDERS: PCP Internal Medicine; Visit Provider Internal Medicine Nephrology
DX: N28.1 Cyst of kidney, acquired (principal); I10 Essential (primary) hypertension; R10.9 Unspecified abdominal pain; R31.29 Other microscopic hematuria
CPT/HCPCS: 99214

== ENCOUNTER 2024-08-13 08:10 | Day surgery (SDC) | payer MEDICARE, MEDICAID, SELFPAY ==
--- OUTSIDE RECORDS SUMMARY | 2024-07-24 15:02 | XMS_ITS | Encounter Summary ---
[facility] Address [address] [place] [address] Care Team Providers Care Vertical Roll Operator Name Role Phone Vamshi Man MD Primary Care Provider Encounter Details Date Type Department Care Team (Late st Contact Info) Description 01/30/2024 2:30 PM EDT Hospital Encounter TH HISTORIC ENCOUNTERS EASTERN CONVERSION ONLY Kash Hammonds MD [address] [facility] [address] [place] [address] Social History Tobacco Use Types Packs/Day Years [...] Encounters Date Type Department Care Team (Late Contact Info) Description 08/07/2024 10:00 AM EDT Office Visit Orth[facility] - [place] [address] [facility] [address] [place] [address] Cheng Rea, DPFranco [address] [facility] [address] [place] [address] 09/10/2024 8:50 AM EDT Office Visit [facility] [address] [facility] [address] [place] [address] Manuel Aldrich MD [address] [place] [address] [address] [place] [address] 12/08/2024 9:10 AM EDT Office Visit Gastroenterology - [place] [address] [facility] [address] [place] [phone] Idalia Sandoval PA [address] [facility] [address] [place] [address] documented as of this encounter Visit Diagnoses Not on filedocumented in this encounter Care Teams Vertical Roll Operator Relationship Specialty Start Date End Date Vamshi Man MD [address] [place] [id number] PCP - General 10/06/10 documented as of this encounter
--- OUTSIDE RECORDS SUMMARY | 2024-07-24 15:02 | XMS_ITS | Clinical Summary ---
Author Organization [facility] Address [address] [facility] [address] [place] [address] Phone Care Team Providers Care Cut In Station Operator Name Role Phone Vamshi Man MD Primary Care Provider [phone] Allergies Active Allergy Reactions Criticality Noted Date Comments Penicillins Rash Low 01/06/2021 Medications albuterol HFA (PROVENTIL HFA;VENTOLIN HFA) 108 (90 Base) MCG/ACT inhaler Inhale 1 puff 1 (one) time each day if needed Active ALPRAZolam (XANAX) 2 MG tablet Take 1 tablet by mouth 2 (two) times a day Active atorvastatin (LIPITOR) 40 MG tablet Take 1 tablet by mouth 1 (one) time each day Active buPROPion XL (WELLBUTRIN XL) 150 MG 24 hr tablet Take 1 tablet by mouth 3 (three) times a day Active cetirizine (ZyrTEC) 10 MG tablet Take 10 mg by mouth 1 (one) time each day in the evening 11/19/19 21 Active cholecalcifero l (VITAMIN D-3) 25 MCG (1000 UT) tablet Take 1,000 Units by mouth 1 (one) time each day 11/04/19 21 Active ciprofloxacin (CILOXAN) 0.3 % ophthalmic solution Administer 1 drop into both eyes 1 (one) time each day 12/26/19 21 Active fluticasone (FLONASE) 50 MCG/ACT nasal spray Administer 1 spray into each nostril 1 (one) time each day 12/15/19 21 Active Flovent HFA 110 MCG/ACT inhaler Inhale 1 puff 1 (one) time each day 12/15/19 21 Active latanoprost (XALATAN) 0.005 % ophthalmic solution Administer 1 drop into both eyes 1 (one) time each day Active Linzess 290 MCG capsule Take 1 tablet by mouth 1 (one) time each day 12/15/19 21 Active METFORMIN HCL PO Take 750 tablets by mouth 1 (one) time daily 30 minutes after same meal 750 mg Active methadone (DOLOPHINE) 10 MG tablet Take 5 tablets by mouth 1 (one) time each day Active montelukast (SINGULAIR) 10 MG tablet Take 1 tablet by mouth 1 (one) time each day Active ondansetron ODT (ZOFRAN-ODT) 4 MG dispersible tablet Take 1 tablet by mouth 1 (one) time each day 10/12/19 21 Active pantoprazole (PROTONIX) 40 MG EC tablet Take 1 tablet by mouth 2 (two) times a day Active tamsulosin (FLOMAX) 0.4 MG 24 hr capsule Take 1 capsule by mouth 1 (one) time each day 12/15/19 21 Active testosterone enanthate (DELATESTRYL) 200 MG/ML injection Inject 1 mL into the shoulder, thigh, or buttocks 1 (one) time daily 30 minutes after same meal 10/12/19 21 Active tiZANidine (ZANAFLEX) 4 MG tablet Take 1 tablet by mouth 1 (one) time each day 11/03/19 21 Active zolpidem (AMBIEN) 10 MG tablet Take 1 tablet by mouth 1 (one) time each day Active Insulin Glargine, 2 Unit Dial, (Toujeshabbir Max SoloStar) 300 UNIT/ML solution pen-injector Inject under the skin Active spironolactone (ALDACTONE) 25 MG tablet Take 25 mg by mouth in the morning. 01/13/20 23 Active glipiZIDE (Glucotrol) 5 MG tabletIndicati ons:Type 2 diabetes mellitus with diabetic chronic kidney disease (HCC) Take 1 tablet (5 mg total) by mouth in the morning and 1 tablet (5 mg total) in the evening. Take before meals. 180 tablet 3 12/12/19 24 025 Active carvedilol (COREG) 3.125 MG tablet Take 3.125 mg by mouth in the morning and 3.125 mg in the evening. Take with meals. Active Tirzepatide (Mounjaro) 15 MG/0.5ML solution auto-injector Inject under the skin Active sacubitril-rhys sartan (Entresto) 49-51 MG per tablet Take 1 tablet by mouth in the morning and 1 tablet in the evening. Active DULoxetine (CYMBALTA) [address] capsule Take 1 capsule by mouth 1 (one) time each day 01/04/20 025 Discontinued(Th erapy completed) ibuprofen (ADVIL,MOTRIN) 800 MG tablet Take 1 tablet by mouth if needed 01/06/20 025 Discontinued naproxen (EC NAPROSYN) 500 MG EC tablet Take 1 tablet by mouth 1 (one) time each day 01/04/20 025 Discontinued sacubitril-rhys sartan (Entresto) 24-26 MG per tablet Take 1 tablet by mouth in the morning and 1 tablet in the evening. 025 Discontinued carvedilol CR (COREG CR) 10 MG 24 hr capsule Take 10 mg by mouth 1 (one) time each day Do not crush or chew. 025 Discontinued(Fo rmulary change) Mounjaro 7.5 MG/0.5ML solution pen-injector Inject 7.5 mg under the skin 1 (one) time per week 04/27/19 025 Discontinued(Fo rmulary change) Active Problems Problem Noted Date Diagnosed Date Vitamin D deficiency, not otherwise specified Overview (07/24/2024): On Vitamin D supplement Checking Vitamin D25 level Hypertension 07/19/2023 Overview (07/24/2024): Blood pressure remains optimally controlled Currently taking Carvedilol 3.125 mg BID, Entresto 24-26 mg BID and Spironolactone 25 mg QD Lifestyle modifications as above. No medication changes made today Follow low NA diet Avoid NSAIDs/OTC Decongestant medications Target BP <120/80 Maintain weight to target healthy BMI Assessment & Plan (07/19/2023 1:11 PM EDT): Blood pressure is currently optimally controlled Currently taking Carvedilol CR 10 mg QD, Entresto 24-26 mg BID and Spironolactone 25 mg QD Lifestyle modifications as above. No medication changes made today Chronic kidney disease, stage 2 (mild) Overview (07/24/2024): Related to diabetic nephropathy As of 07/16/24 labs: HgbA1c very good at 6.0% Maintain good DM control Stable Creatinine 1.0, GFR 80 On ARB in Entresto Normal electrolytes No Anemia No proteinuria Normal Ca/Phos levels Alcohol abuse 11/23/2021 Allergic rhinitis 11/23/2021 Anxiety disorder 11/23/2021 Asthma 11/23/2021 Cataract 11/23/2021 Cervical disc disorder with radiculopathy 2021 Overview (11/23/2021): C5-6 Left Chronic pain syndrome 11/23/2021 Overview (11/23/2021): 2 surgery R foot ankle w hardware lateral foot and ?tendon at lat malleolus.R Foot- ? 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 Spondylosis 11/23/2021 Plantar fasciitis 11/23/2021 Obese class I 11/23/2021 Low back pain 11/23/2021 Type 2 diabetes mellitus wit h diabetic chronic kidney disease 11/23/2021 Overview (07/19/2023): H/o Proteinuria Controlled GLORIA/ARB Target HgbA1c 6.0 Monitor Renal panel and urine alb/creat ratio Assessment & Plan (07/19/2023 1:07 PM EDT): Checking Renal panel and urine alb/creat ratio to re-evaluate Last Creat 0.9, eGFR 95 as of 03/2023 Most recent reports HgbA1c was 7 per patient, improved form 9.0 a year ago Continue with current DM regimen, no changes made today Switched from Losartan to Entresto by Machine Feeder recently Renal osteodystrophy 11/23/2021 Diabetes mellitus 01/06/2021 Nephrotic syndrome 01/06/2021 Renal mass 01/06/2021 Overview (07/19/2023): Benign on biopsy 2017 He gets q6 month MRI for pancreatic cyst, confirming simple cysts Snoring 03/18/2004 Obstructive sleep apnea syndrome 03/18/2004 Resolved Problems Problem Noted Date Diagnosed Date Resolved Date Stage 3a chronic kidney disease 11/23/2021 07/19/2023 Encounters Date Type Department Care Team Description 07/24/2024 9:00 AM EDT Office Visit [facility] [address] [address] Caprice Mary ARNP Chronic kidney disease, stage 2 (mild) (Primary Dx); Hypertension; Vitamin D deficiency, not otherwise specified 07/16/2024 Orders Only [facility] [address] [address] Caprice Mary ARNP from Last 3 Months Immunizations Immunization Administration Dates Next Due H1N1 Inj 02/16/2009 Hepatitis A 06/02/2004,02/21/2003 Hepatitis B 06/04/2003,12/19/2002,11/18/2002 Influenza Whole 01/26/2021 Influenza, Unspecified 01/20/2020,2018,01/11/2018,01/10/2017,01/14,01/15/2016,01/14/2015,01/01/2014,01/16/20 13,01/04/2012,01/12/2011,01/25/2010,01/05/2009,1 05/20/2005 Pfizer SARS-COV-2 02/23/2021,05/20/2020,04/29/19 21 Pneumococcal Polysaccharide 2005 Shingrix 02/06/2018,11/26/2017 Td, Unspecified 2005 Tdap 09/29/2017,01/18/2012 Family History Medical History Relation Comments Stroke Father Cancer Mother Diabetes Mother Hypertension Mother Heart disease Sibling 1 brother Cancer Sibling 2 Kidney disease Sibling 3 brother - cyst o n Kidney Diabetes Sibling 4 brother Hypertension Sibling 5 brother Relation Status Comments Father Mother Sibling 1 Sibling 2 Sibling 3 Sibling 4 Sibling 5 Social History Tobacco Use Types Packs/Day Years Used Date Smoking Tobacco: Never Smokeless Tobacco: Never Alcohol Use Standard Drinks/Week Comments No 0 (1 standard drink = 0.6 oz pur e alcohol) Sex and Gender Information Value Date Recorded Sex Assigned at Not on file Legal Sex Male 4:50 PM EST Gender Identity Not on file Sexual Orientation Not on file Last Filed Vital Signs Vital Sign Reading Time Taken Comments Blood Pressure 100/60 07/24/2024 9:14 AM EDT Pulse 89 07/24/2024 9:14 AM EDT Temperature - - Respiratory Rate - - Oxygen Saturation 99% 07/19/2023 11:02 AM EDT Inhaled Oxygen Concentration - - Weight 109 kg (241 lb) 07/24/2024 9:14 AM EDT Height 187.9 cm (6' 1.98 ) 12/01/2019 12:00 PM E DT Body Mass Index 30.96 12/01/2019 12:00 PM EDT Plan of Treatment Upcoming Encounters Date Type Department Care Team (Late st Contact Info) Description 07/23/2025 8:00 AM EDT Office Visit [facility] [address] [address] Caprice Mary ARNP [address] [address] Health Maintenance Due Date Last Done Comments Hepatitis B Vaccine (1 of 3 - 19+ 3-dose series) 1984 06/04/2003, 12/19/2002, 11/18/2002 Pneumococcal Vaccine: 50+ Ye ars (2 of 2 - PCV) 2006 2005 Colorectal Cancer Screening: Annual FOBT 2014 Colorectal Cancer Screening: Colonoscopy 2014 Colorectal Cancer Screening: Sigmoidoscopy 2014 Diabetes: Ophthalmology Exam 05/17/2020 Diabetes: Pedal Pulse Checked 05/17/2020 Diabetes: Sensory Foot Exam 05/17/2020 Diabetes: Visual Foot Exam 05/17/2020 Diabetes: Hemoglobin A1C 10/15/2024 025, 05/25/2022, 09/08/2021, Additional history exists Influenza Vaccine (Season Ended) 2024 01/27/2022, 01/26/2021, 01/20/2020, Additional history exists Pneumococcal Vaccine: Peds ( 0 to 5 Years) and At-Risk Patients (6 to 49 Years) Discontinued 2005 Procedures Procedure Name Priority Date/Time Associated Diagnosis Comments FERRITIN Routine 07/16/2024 9:59 AM EDT MAGNESIUM Routine 07/16/2024 9:59 AM EDT HEMOGLOBIN A1C (HC) Routine 07/16/2024 9 :59 AM EDT URINE ALBUMIN / CREATININE RATIO Routine 07/16/2024 9:59 AM EDT IRON PANEL (FE, TIBC, TSAT) Routine 07/16/2024 9:59 AM EDT RENAL FUNCTION PANEL Routine 07/16/2024 9:59 AM EDT CBC DIFF AMBIGUOUS DEFAULT - DO NOT USE Routine 07/16/2024 9:59 AM EDT from Last 3 Months Results * (ABNORMAL) Hemoglobin A1C (07/16/2024 9:59 AM EDT) Hemoglobin A1C 6.0(H) %Hb [facility] Comment: Reference Range: [place] Diabetes Association (ADA) Guidelines: <5.7: Decreased risk for diabetes 5.7 - 6.4: Increased risk for diabetes >6.4: Ongoing Hyperglycemia of any cause <7.0: Glycemic control for adults with diabetes Estimated Average Glucose 126 mg/dL [facility] 07/16/2024 9:59 AM EDT 07/16/2024 Caprice [facility] LAB BLOOD ORDERABLES Final Result [facility] [address] [place] [address] * CBC Diff Ambiguous Default (07/16/2024 9:59 AM EDT) WBC 9.0 3.4 - 10.8 x10E3/uL [facility] RBC 4.66 4.14 - 5.80 x10E6/uL [facility] Hemoglobin 13.3 13.0 - 17.7 g/dL [facility] Hematocrit 40.8 37.5 - 51.0 % [facility] MCV 88 79 - 97 fL [facility] MCH 28.5 26.6 - 33.0 pg [facility] MCHC 32.6 31.5 - 35.7 g/dL [facility] RDW 13.4 11.6 - 15.4 % [facility] Platelets 235 150 - 450 x10E3/uL [facility] Neutrophils Relative 60 Not Estab. % [facility] Lymphocytes Relative 29 Not Estab. % [facility] Monocytes 9 Not Estab. % [facility] Eosinophils Relative 1 Not Estab. % [facility] Basophils Relative 1 Not Estab. % [facility] Neutrophils Absolute 5.4 1.4 - 7.0 x10E3/uL [facility] Lymphocytes Absolute 2.6 0.7 - 3.1 x10E3/uL [facility] Monocytes Absolute 0.8 0.1 - 0.9 x10E3/uL [facility] Eosinophils Absolute 0.1 0.0 - 0.4 x10E3/uL [facility] Basophils Absolute 0.1 0.0 - 0.2 x10E3/uL [facility] Immature Granulocytes 0 Not Estab. % [facility] Immature Grans (Absolute) 0.0 0.0 - 0.1 x10E3/uL [facility] Comment: A hand-written panel/profile was received from your office. In accordance with the [facility] Ambiguous Test Code Policy dated October 2002, we have assigned CBC with Differential/Platelet, Test Code #723388 to this request. If this is not the testing you wished to receive on this specimen, please contact the [facility] Client Inquiry/ Technical Services Department to clarify the test order. We appreciate your business. 07/16/2024 9:59 AM EDT 07/16/2024 Caprice Mary [facility] LAB BLOOD ORDERABLES Final Result [facility] [address] [place] [address] * Iron Panel (Fe, TIBC, TSAT) (07/16/2024 9:59 AM EDT) TIBC 335 250 - 450 ug/dL [facility] UIBC 258 111 - 343 ug/dL [facility] Iron 77 38 - 169 ug/dL [facility] Iron Saturation (TSat) 23 15 - 55 % [facility] 07/16/2024 9:59 AM EDT 07/16/2024 Caprice Mary [facility] LAB BLOOD ORDERABLES Final Result [facility] [address] [place] [address] * Urine Albumin / Creatinine Ratio (07/16/2024 9:59 AM EDT) Creatinine, Ur 132.3 Not Estab. mg/dL [facility] Albumin, Urine 6.8 Not Estab. ug/mL [facility] Albumin/Creatin ine Ratio 5 0 - 29 mg/g creat [facility] Comment: ? Normal: ?0 - ??29 ? Moderately increased: 30 - 300 ? Severely increased: ? >300 07/16/2024 9:59 AM EDT 07/16/2024 Caprice Mary [facility] LAB URINE ORDERABLES Final Result [facility] [address] [place] [address] * Magnesium (07/16/2024 9:59 AM EDT) Magnesium 1.8 1.6 - 2.3 mg/dL [facility] 07/16/2024 9:59 AM EDT 07/16/2024 [facility] LAB BLOOD ORDERABLES Final Result [facility] [address] [place] [address] * Ferritin (07/16/2024 9:59 AM EDT) Ferritin 73 30 - 400 ng/mL [facility] 07/16/2024 9:59 AM EDT 07/16/2024 [facility] LAB BLOOD ORDERABLES Final Result Performing Organization Address [facility] Co de Phone Number [facility] [address] [place] [address] * (ABNORMAL) Renal Function Panel (07/16/2024 9:59 AM EDT) Glucose 83 70 - 99 mg/dL [facility] BUN 14 6 - 24 mg/dL [facility] Creatinine 1.07 0.76 - 1.27 mg/dL [facility] eGFR CKD-EPI CR 2020 80 >59 mL/min/1.7 3 [facility] BUN/Creatinine Ratio 13 9 - 20 [facility] Sodium 135 134 - 144 mmol/L [facility] Potassium 4.2 3.5 - 5.2 mmol/L [facility] Chloride 101 96 - 106 mmol/L [facility] Bicarbonate (CO2) 19(L) 20 - 29 mmol/L [facility] Calcium 9.1 8.7 - 10.2 mg/dL [facility] Albumin 4.6 3.8 - 4.9 g/dL [facility] Phosphorus 3.2 2.8 - 4.1 mg/dL [facility] 07/16/2024 9:59 AM EDT 07/16/2024 Caprice SMITH LAB BLOOD ORDERABLES Final Result [facility] [address] [place] [address] from Last 3 Months Insurance Medicare Medicaid [place] Medicare Medicaid [place] Care Teams Cut In Station Operator Relationship Specialty Start Date End Date Vamshi Man MD [address] [place] [address] PCP - General 04/26/20
--- OUTSIDE RECORDS SUMMARY | 2024-07-24 15:02 | XMS_ITS | Encounter Summary ---
Author Organization [facility] Address [address] [address] Phone Care Team Providers Care Stumper Feller Name Role Phone Vamshi Man MD Primary Care Provider [phone] Reason for Visit * Reason Comments Diabetes Mellitus Encounter Details Date Type Department Care Team ([facility] st Contact Info) Description 07/24/2024 9:00 AM EDT Office Visit [facility]. [address] [address] Caprice Mary ARNP [address] [address] Chronic kidney disease, stage 2 (mild) (Primary Dx); Hypertension; Vitamin D deficiency, not otherwise specified Social History Tobacco Use Types Packs/Day Years Used Date Smoking Tobacco: Never Smokeless Tobacco: Never Alcohol Use Standard Drinks/Week Comments No 0 (1 standard drink = 0.6 oz pur e alcohol) Sex and Gender Information Value Date Recorded Sex Assigned at Not on file Legal Sex Male 4:50 PM EST Gender Identity Not on file Sexual Orientation Not on file documented as of this encounter Last Filed Vital Signs Vital Sign Reading Time Taken Comments Blood Pressure 100/60 07/24/2024 9:14 AM EDT Pulse 89 07/24/2024 9:14 AM EDT Temperature - - Respiratory Rate - - Oxygen Saturation - - Inhaled Oxygen Concentration - - Weight 109 kg (241 lb) 07/24/2024 9:14 AM EDT Height - - Body Mass Index 30.96 12/01/2019 12:00 PM EDT documented in this encounter Progress Notes * Caprice Mary ARNP - 07/24/2024 9:00 AM EDT Images from the original note were not included. Patient Name: Elissa Bertrand, Male Date of : 1965, 59 y.o. Date: 07/24/2024 History of Present Illness Elissa Bertrand is a 59 y.o. male here in follow-up for h/o benign renal mass - biopsied 05/24/2017, w/ T2DM w/proteinuria, chronic NSAID use, glaucoma, asthma, GERD, diverticulitis and IBS. Has dominant 3 cm cyst interpolar region of right kidney, unchanged as of 02/11/2022 while monitoring a cystic lesion of pancreatic tail requiring q6 month monitoring. Had a cardiac rhythm monitoring device implanted Apr 2024 with a 5 yr plan. 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 He reports he is currently on Munjaro inj for his DM2 and tolerating this much better than the Ozempic trialed prior. Did not tolerate Jardiance in the past d/t groin itch. Started on Glipizide 5 mg BID at his previous visit here - needs renewal. He was happy to report his HgbA1c is down from 9.0 a year ago to 7. The patient has a cystic lesion at the pancreatic tail, which requires q6 month monitoring. He has a 3cm cyst in the right interpolar kidney. His last MRI was 02/11/22. We had this renal mass biopsied 05/24/17 and it resulted as benign. The following portions of the patient's chart were reviewed in this encounter and updated as appropriate: Allergies Meds Problems Med Hx Surg Hx Fam Hx Review of Systems Constitutional: Negative for chills, fever, weight gain and weight loss. HENT: Negative for nosebleeds. Eyes: Negative for blurred vision and double vision. Respiratory: Negative for cough and shortness of breath. Cardiovascular: Negative for chest pain, palpitations and leg swelling. Gastrointestinal: Positive for heartburn. Negative for abdominal pain, blood in stool, diarrhea, nausea, vomiting and poor appetite. Chronic Genitourinary: Negative for dysuria, flank pain, frequency, hematuria, urgency and urinary hesitancy. Musculoskeletal: Positive for back pain. Bilateral mid to low back pain, reports h/o sciatica Skin: Negative for rash. Neurological: Negative for dizziness, tingling, numbness and headaches. Endo/Heme/Allergies: Does not bruise/bleed easily. Psychiatric/Behavioral: Negative. Medication List Current Outpatient Medications Medication Sig Dispense Refill albuterol HFA (PROVENTIL HFA;VENTOLIN HFA) 108 (90 Base) MCG/ACT inhaler Inhale 1 puff 1 (one) timeeach day if needed atorvastatin (LIPITOR) 40 MG tablet Take 1 tablet by mouth 1 (one) time each day buPROPion XL (WELLBUTRIN XL) 150 MG 24 hr tablet Take 1 tablet by mouth 3 (three) times a day carvedilol (COREG) 3.125 MG tablet Take 3.125 mg by mouth in the morning and 3.125 mg in the evening. Take with meals. cetirizine (ZyrTEC) 10 MG tablet Take 10 mg by mouth 1 (one) time each day in the evening cholecalciferol (VITAMIN D-3) 25 MCG (1000 UT) tablet Take 1,000 Units by mouth 1 (one) time each day sacubitril-valsartan (Entresto) 49-51 MG per tablet Take 1 tablet by mouth in the morning and 1 tablet in the evening. Tirzepatide (Mounjaro) 15 MG/0.5ML solution auto-injector Inject under the skin ALPRAZolam (XANAX) 2 MG tablet Take 1 tablet by mouth 2 (two) times a day ciprofloxacin (CILOXAN) 0.3 % ophthalmic solution Administer 1 drop into both eyes 1 (one) time each day Flovent HFA 110 MCG/ACT inhaler Inhale 1 puff 1 (one) time each day fluticasone (FLONASE) 50 MCG/ACT nasal spray Administer 1 spray into each nostril 1 (one) time eachday glipiZIDE (Glucotrol) 5 MG tablet Take 1 tablet (5 mg total) by mouth in the morning and 1 tablet (5 mg total) in the evening. Take before meals. 180 tablet 3 Insulin Glargine, 2 Unit Dial, (Toujeo Max SoloStar) 300 UNIT/ML solution pen- injector Inject underthe skin latanoprost (XALATAN) 0.005 % ophthalmic solution Administer 1 drop into both eyes 1 (one) time each day Linzess 290 MCG capsule Take 1 tablet by mouth 1 (one) time each day METFORMIN HCL PO Take 750 tablets by mouth 1 (one) time daily 30 minutes after same meal 750 mg methadone (DOLOPHINE) 10 MG tablet Take 5 tablets by mouth 1 (one) time each day montelukast (SINGULAIR) 10 MG tablet Take 1 tablet by mouth 1 (one) time each day ondansetron ODT (ZOFRAN-ODT) 4 MG dispersible tablet Take 1 tablet by mouth 1 (one) time each day pantoprazole (PROTONIX) 40 MG EC tablet Take 1 tablet by mouth 2 (two) times a day spironolactone (ALDACTONE) 25 MG tablet Take 25 mg by mouth in the morning. tamsulosin (FLOMAX) 0.4 MG 24 hr capsule Take 1 capsule by mouth 1 (one) time each day testosterone enanthate (DELATESTRYL) 200 MG/ML injection Inject 1 mL into the shoulder, thigh, or buttocks 1 (one) time daily 30 minutes after same meal tiZANidine (ZANAFLEX) 4 MG tablet Take 1 tablet by mouth 1 (one) time each day zolpidem (AMBIEN) 10 MG tablet Take 1 tablet by mouth 1 (one) time each day No current facility-administered medications for this visit. Allergy List Allergies Allergen Reactions Penicillins Rash Physical Exam BP 100/60 Pulse 89 Wt 241 lb (109 kg) BMI 30.96 kg/m?? Vitals reviewed. Constitutional: He is oriented to person, place, and time. He does not appear ill. No distress. HEENT: Mouth/Throat: Oropharynx is clear and moist. Eyes: Conjunctivae are normal. Neck: No JVD present. Cardiovascular: Normal rate and regular rhythm. No murmur heard.He exhibits no edema. Pulmonary/Chest: Effort normal and breath sounds normal. He has no rales. Abdominal: Soft. He exhibits no distension. There is no abdominal tenderness. No CVS tenderness bilat Musculoskeletal: He exhibits tenderness. Comments: Right sciatica - chronic Neurological: He is alert and oriented to person, place, and time. Skin: Skin is warm and dry. No rash noted. No erythema. Psychiatric: He has a normal mood and affect. His behavior is normal. Judgment normal. Chemistry Lab Units 07/16/24 0959 05/12/24 0917 07/19/23 1148 04/10/23 0000 CREATININE mg/dL 1.07 0.99 1.07 0.90 BUN mg/dL 14 16 20 17 POTASSIUM mmol/L 4.2 4.5 5.2 4.2 SODIUM mmol/L 135 135 134 136* CO2 mmol/L 19* 25 22 27 CHLORIDE mmol/L 101 102 98 -- ALBUMIN g/dL 4.6 -- 4.6 -- EGFRNAFR -- -- -- 95 EGFR mL/min/1.73 80 88 80 -- HEMOGLOBIN A1C %Hb 6.0* -- -- -- WBC AUTO x10E3/uL 9.0 -- 7.7 -- HEMATOCRIT % 40.8 -- 43.6 -- HEMOGLOBIN g/dL 13.3 -- 14.7 -- PLATELETS AUTO x10E3/uL 235 -- -- -- Bone Mineral Lab Units 07/16/24 0959 05/12/24 0917 07/19/23 1148 04/10/23 0000 CALCIUM mg/dL 9.1 9.4 9.3 9.0 PHOSPHORUS mg/dL 3.2 -- 3.3 -- Urine Lab Units 07/16/24 0959 07/19/23 1148 ALB MG/G CREAT UR mg/g creat 5 <4 Iron Studies Lab Units 07/16/24 0959 07/19/23 1148 FERRITIN ng/mL 73 210 TIBC ug/dL 335 332 IRON SATURATION % 23 31 Assessment & Plan Problem List Items Addressed This Visit Chronic kidney disease, stage 2 (mild) - Primary (Chronic) Overview Related to diabetic nephropathy As of 07/16/24 labs: HgbA1c very good at 6.0% Maintain good DM control Stable Creatinine 1.0, GFR 80 On ARB in Entresto Normal electrolytes No Anemia No proteinuria Normal Ca/Phos levels Hypertension Overview Blood pressure remains optimally controlled Currently taking Carvedilol 3.125 mg BID, Entresto 24-26 mg BID and Spironolactone 25 mg QD Lifestyle modifications as above. No medication changes made today Follow low NA diet Avoid NSAIDs/OTC Decongestant medications Target BP <120/80 Maintain weight to target healthy BMI Vitamin D deficiency, not otherwise specified Overview On Vitamin D supplement Checking Vitamin D25 level Orders Placed This Encounter Vitamin D 25 hydroxy Renal function panel Urine Protein / creatinine ratio Urine Albumin / Creatinine Ratio CBC PTH, intact Vitamin D 25 hydroxy Return in about 1 year (around 07/24/2025) for Next scheduled follow-up with LUIS Mendenhall Cosigned by Jamie Ly MD at 07/24/2024 2:30 PM EDT documented in this encounter Plan of Treatment Upcoming Encounters Date Type Department Care Team (Late st Contact Info) Description 07/23/2025 8:00 AM EDT Office Visit [facility] [address] [address] Caprice Mary ARNP [address] [address] Scheduled Orders Name Type Priority Associated Diagnoses Orde r Schedule Vitamin D 25 hydroxy Lab Routine Vitamin D deficiency, not otherwise specified Expected: 07/24/2024, Expires: 08/23/2025 Renal function panel Lab Routine Hypertension Vitamin D deficiency, not otherwise specified Expected: 06/14/2025, Expires: 08/13/2025 Urine Protein / creatinine ratio Lab Routine Hypertension Vitamin D deficiency, not otherwise specified Expected: 06/14/2025, Expires: 08/13/2025 Urine Albumin / Creatinine Ratio Lab Routine Hypertension Vitamin D deficiency, not otherwise specified Expected: 06/14/2025, Expires: 08/13/2025 CBC Lab Routine Hypertension Vitamin D deficiency, not otherwise specified Expected: 06/14/2025, Expires: 08/13/2025 PTH, intact Lab Routine Hypertension Vitamin D deficiency, not otherwise specified Expected: 06/14/2025, Expires: 08/13/2025 Vitamin D 25 hydroxy Lab Routine Hypertension Vitamin D deficiency, not otherwise specified Expected: 06/14/2025, Expires: 08/13/2025 documented as of this encounter Visit Diagnoses Diagnosis Chronic kidney disease, stage 2 (mild)- Primary Hypertension Vitamin D deficiency, not otherwise specified documented in this encounter Care Teams Stumper Feller Relationship Specialty Start Date End Date Vamshi Man MD [address] [place], [place] PCP - General 04/26/20 documented as of this encounter
--- OUTSIDE RECORDS SUMMARY | 2024-07-24 15:02 | XMS_ITS | Encounter Summary ---
Author Organization [facility] Address [address] [place] [address] Care Team Providers Care Rn Transitional Care Name Role Phone Vamshi Man MD Primary Care Provider Encounter Details Date Type Department Care Team (Late Contact Info) Description 07/22/2024 12:25 PM EDT Ancillary Procedure [facility] [address] [facility] [address] [place] [address] Arrived Social History Tobacco Use Types Packs/Day Years [...] AM EDT Office Visit Orthopedic Surgery - [place] [address] [facility] [address] [place] [phone] Cheng Rea, DPM [address] [address] 09/10/2024 8:50 AM EDT Office Visit [facility] [address] [place] [phone] Manuel Aldrich MD [address] [place] [address] [place] [address] 12/08/2024 9:10 AM EDT Office Visit Gastroenterology - [place] [address] [place] [phone] Idalia Sandoval PA [address] [place] [address] documented as of this encounter Procedures Procedure Name Priority Date/Time Associated Diagnosis Comments CARDIAC DEVICE CHECK- REMOTE- MURJ Routine 07/22/2024 12:24 PM EDT documented in this encounter Results * Cardiac device check - Remote- MURJ (07/22/2024 12:24 PM EDT) Date Time Interrogation Session [id number] CV DEVICE CHECK Type Interrogation Session Remote Scheduled CV DEVICE CHECK Implantable Pulse Generator Supervisor Soldering BSX CV DEVICE CHECK Implantable Pulse Generator Type ILR CV DEVICE CHECK Implantable Pulse Generator Model [id number] CV DEVICE CHECK Implantable Pulse Generator Serial Number [id number] CV DEVICE CHECK Implantable Pulse Generator Implant Date 20240516 CV DEVICE CHECK Battery Status Beginning of Service CV DEVICE CHECK Atrial Tachy Statistic AT/AF Lovilia Percent 0.00 CV DEVICE CHECK Date of Service 2024-07-27 CV DEVICE CHECK Anatomical Region Laterality Modality Device Interroga tion 07/21/2024 12:2 8 AM EDT Impressions 07/22/2024 12:16 PM EDT Normal Remote: No Events * This is a normal remote diagnostic device check * Alerts or events: None * Battery data was reviewed * Battery status: JADA, OK * Presenting rhythm: Irregular SR w PVC's * Heart Rate Histograms reviewed Narrative Procedure Note Griffin, Nadavaluru S, MD - 07/22/2024 IMPRESSION: Normal Remote: No Events * This is a normal remote diagnostic device check * Alerts or events: None * Battery data was reviewed * Battery status: JADA, OK * Presenting rhythm: Irregular SR w PVC's * Heart Rate Histograms reviewed us Musa Griffin MD CV IMPLANTABLE CARDIAC DEV ICE PROCEDURES Final Result documented in this encounter Visit Diagnoses Not on filedocumented in this encounter Care Teams Rn Transitional Care Relationship Specialty Start Date End Date Vamshi Man MD [address] [place] [address] PCP - General 10/06/10 documented as of this encounter
--- OUTSIDE RECORDS SUMMARY | 2024-07-24 15:03 | XMS_ITS | Clinical Summary ---
Author Organization [facility] Address [address] [place] [address] Phone Care Team Providers Care Freight Sorter Name Role Phone Vamshi Man MD Primary Care Provider [phone] Allergies Active Allergy Reactions Criticality Noted Date Comments Food Allergy Formula 02/17/2021 Fresh peaches-itchy mout, throat and lips swell. Latex Rash 02/17/2021 Penicillins Rash Low 12/17/2009 Medications albuterol HFA (PROAIR HFA ; PROVENTIL HFA ; VENTOLIN HFA) 90 mcg/actuation inhaler as needed. 07/29/19 09 Active ALPRAZolam (XANAX) 2 mg tablet Take 1 tablet (2 mg total) by mouth 2 (two) times a day. Active aspirin 81 mg EC tablet Take 1 tablet (81 mg total) by mouth 1 (one) time each day. 07/29/19 09 Active buPROPion SR (WELLBUTRIN SR) 150 mg 12 hr tablet Take 1 tablet (150 mg total) by mouth. Active cetirizine (ZyrTEC) 10 mg tablet Take 1 tablet (10 mg total) by mouth. 11/19/19 21 Active cholecalciferol (VITAMIN D-3) 25 mcg (1,000 unit) tablet Take 1 tablet (1,000 Units total) by mouth 1 (one) time each day. 11/04/19 Active cromolyn (OPTICROM) 4 % ophthalmic solution Administer into affected eye(s) 1 (one) time each day if needed. 09/16/19 Active diclofenac (VOLTAREN) 1 % topical gel Apply 4 g topically. 01/23/20 Active diclofenac (VOLTAREN) 1 % topical gel Apply 4 g topically. Active DULoxetine (CYMBALTA) [address] capsule Take 1 capsule (60 mg total) by mouth 1 (one) time each day. 01/04/20 Active fluticasone HFA (Flovent HFA) 110 mcg/actuation inhaler Inhale 1 puff by mouth 1 (one) time each day. 12/15/19 Active glipiZIDE (GLUCOTROL) 5 mg tablet Take 1 tablet (5 mg total) by mouth 2 (two) times a day before meals. 12/05/19 Active ibuprofen (ADVIL,MOTRIN) 800 mg tablet Take 1 tablet (800 mg total) by mouth as needed. 01/06/20 Active latanoprost (XALATAN) 0.005 % ophthalmic solution Administer 1 drop into affected eye(s) 1 (one) time each day. 09/16/19 Active methadone (DOLOPHINE) 10 mg tablet Take 1 tablet (10 mg total) by mouth 1 (one) time each day if needed. Active montelukast (SINGULAIR) 10 mg tablet Take 1 tablet (10 mg total) by mouth. 07/29/19 Active naproxen (EC NAPROSYN) 500 mg EC tablet Take 1 tablet (500 mg total) by mouth 1 (one) time each day. 01/04/20 Active sacubitriL-valsa rtan (ENTRESTO) 49-51 mg per tablet Take 1 tablet by mouth 2 (two) times a day. Active senna-docusate (PERICOLACE) 8.6-50 mg per tablet Take 1 tablet by mouth 4 times daily as needed. Active tamsulosin (FLOMAX) 0.4 mg 24 hr capsule Take 1 capsule (0.4 mg total) by mouth 2 (two) times a day. Take 30 mins after same meal every day. 08/31/20 21 Active testosterone cypionate (DEPO-TESTOTERON E) 200 mg/mL injection Inject as directed See administration instructions. Active tirzepatide (Mounjaro) 7.5 mg/0.5 mL pen injector Inject 0.5 mL (7.5 mg total) under the skin. Active zolpidem (AMBIEN) 10 mg tablet Take 1 tablet (10 mg total) by mouth. 09/16/19 09 Active atorvastatin (LIPITOR) 80 mg tablet Take 1 tablet (80 mg total) by mouth 1 (one) time each day. for 360 days 09/07/19 24 025 Active metformin HCl (METFORMIN ORAL) Take 750 tablets by mouth 1 (one) time each day. Active carvediloL (COREG) 3.125 mg tablet Take 1 tablet (3.125 mg total) by mouth 2 (two) times a day with meals. Dose has been reduced from 6.25mg bid to 3.125mg bid pt aware 180 tablet 1 03/04/20 24 Active spironolactone (ALDACTONE) 25 mg tabletIndication s:Chronic HFrEF (heart failure with reduced ejection fraction) (CMS/HCC V24, CMS/HCC V28) Take 1 tablet (25 mg total) by mouth 1 (one) time each day. 90 each 1 03/28/20 24 025 Active isosorbide mononitrate (IMDUR) 60 mg 24 hr tabletIndication s:Coronary artery disease involving [place] coronary artery of [place] heart with other form of angina pectoris (CMS/HCC V24) Take 1 tablet (60 mg total) by mouth 1 (one) time each day. Do not crush or chew. 30 each 11 04/24/19 25 026 Active ondansetron (ZOFRAN) 4 mg tablet Take 1 tablet (4 mg total) by mouth every 8 (eight) hours if needed for nausea. 30 tablet 3 05/08/19 25 Active Toujeo Max U-300 SoloStar 300 unit/mL (3 mL) CONCENTRATED injection pen Inject 45 Units under the skin at bedtime. 03/12/20 24 Active Mounjaro 15 mg/0.5 mL injection Inject 50 mg under the skin every 7 (seven) days. 05/09/19 25 Active pantoprazole (PROTONIX) 40 mg EC tablet TAKE 1 TABLET BY MOUTH 2 TIMES DAILY (BEFORE MEALS). 180 tablet 3 05/21/19 Active Linzess 290 mcg capsule TAKE 1 CAPSULE BY MOUTH DAILY. 90 capsule 1 05/21/19 Active Hospital, Clinic, or Other Facility Administered Medication Ordered Dose Route Frequency Start Date End Date Status lidocaine (PF) (XYLOCAINE-MPF) 1 % injection 0.5 mLIndications:Planta r fascial fibromatosis .5 mL inj Once PRN Procedure 06/26/2024 06/26/2024 Ended triamcinolone acetonide (KENALOG-40) 40 mg/mL injection 20 mgIndications:Planta r fascial fibromatosis 20 mg IAtc Once PRN Procedure 06/26/2024 06/26/2024 Ended Active Problems Problem Noted Date Diagnosed Date Palpitations 03/28/2024 Assessment & Plan (03/28/2024 1:13 PM EST): The patient continues to have episodes of palpitations. He recently completed a 30-day ambulatory secured entrance monitor. He had 38 symptomatic events during the monitoring period but during these events, the patient was noted to be in a normal sinus rhythm. No evidence of sustained arrhythmias. Orders: Case Request EP Lab: Loop recorder insertion Near syncope 03/28/2024 Assessment & Plan (03/28/2024 1:13 PM EST): The patient states that he continues to have episodes of dizziness. He denies any actual syncope. During a recent 30-day ambulatory secured entrance monitor, the patient was found to have a 3-second pause and after this event, the dose of his carvedilol was decreased from 6.25 mg orally twice a day down to 3.125 mg orally twice daily. The patient states that his symptoms of dizziness have improved after reducing the dose of the carvedilol but there is still persistent. Also, the patient had a 20 beat episode of an atrial run with aberrant conduction during the monitoring period. I discussed the case with the electrophysiology service (Dr. Griffin) and we reviewed the monitor EKG strips. Dr. Griffin agreed that the episode noted was consistent with an atrial run with aberrant conduction and less likely a VT. He also agreed that we should continue the current dose of carvedilol given evidence of a 3-second pause with a higher dose of the carvedilol. Dr. Griffin also recommended for the patient to undergo an ILR placement for continued monitoring of his heart rhythm in order to exclude any episodes of arrhythmias that may be contributing to his symptoms. As such, we will arrange for the patient to undergo an ILR monitor placement with Dr. Griffin. Orders: Case Request EP Lab: Loop recorder insertion Closed avulsion fracture of metatarsal bone of r ight foot 02/27/2024 Closed displaced fracture of cuboid bone of right foot with malunion 02/27/2024 Tendinitis of right ankle 02/27/2024 Esophageal reflux 01/18/2024 Irritable bowel syndrome 01/18/2024 Sleep apnea 01/18/2024 CAD (coronary artery disease) 08/27/2023 Overview (01/18/2024): Last Assessment & Plan: The patient has a history of CAD. Recent cardiac CT scan showed evidence of mild nonobstructive CAD. Currently, the patient denies any anginal symptoms. He continues on medical therapy with Coreg, atorvastatin, and aspirin. As such, at this point, we will continue his current medication regimen. Assessment & Plan (04/24/2024 12:37 PM EST): The patient was noted to have mild to moderate nonobstructive coronary artery disease on a cardiac CT scan done in July 2023. The patient is currently on antianginal therapy with carvedilol 3.125 mg orally twice daily and isosorbide mononitrate 30 mg orally daily. Cannot increase the doses of the carvedilol any further due to a history of sinus pauses with a higher dose of carvedilol in the past. On today's visit, the patient states that he still experiencing a mild shortness of breath sensation with chest discomfort when he does certain exercises in the gym. Nevertheless, the same level of activity does not always result in the development of symptoms. He also sometimes experiences the symptoms of chest discomfort/dyspnea while at rest. He does mention that after starting the isosorbide mononitrate his symptoms feel less prominent but they are still present. Given his continued exertional symptoms despite antianginal therapy, we will proceed with further evaluation with a left heart catheterization. Will also arrange for a right heart catheterization to evaluate the patient's pulmonary artery pressures given prior cardiac CT scan findings of a dilated pulmonary artery which is suggestive of underlying pulmonary hypertension. In the meantime, we will increase his isosorbide mononitrate to 60 mg orally daily. Will also continue his current doses of aspirin, atorvastatin, and carvedilol. Orders: isosorbide mononitrate (IMDUR) 60 mg 24 hr tablet; Take 1 tablet (60 mg total) by mouth 1 (one) time each day. Do not crush or chew. Assessment & Plan (03/28/2024 1:13 PM EST): The patient has a history of mild nonobstructive coronary artery disease as noted on his cardiac CT scan done in June 2023. The patient continues on medical therapy with A needle, aspirin, and atorvastatin. On today's visit, the patient states that he sometimes experiences a shortness of breath sensation with a mild chest discomfort sensation when he is doing more vigorous exercises in the gym. He denies any significant symptoms of chest discomfort or shortness of breath during his normal exercise routine. He denies any symptoms at rest. The patient's exertional symptoms may be secondary to underlying microvascular angina given the absence of significant obstructive CAD on the cardiac CT scan. His coronary artery disease could also be causing the symptoms of any more vigorous exercising but this is less likely given the absence of significant obstructive CAD on the cardiac CT scan. Importantly, the patient does not have any evidence of significant left main disease however significant multivessel disease on the cardiac CT scan. As such, medical therapy only is indicated at this point (ischemia trial). Will continue his current dose of carvedilol. Cannot increase the dose of the carvedilol given his past episode of a 3-second pause while on higher doses of carvedilol. As such, we will start the patient on isosorbide mononitrate 30 mg orally daily. The patient is not on any PDE 5 inhibitor. Will reevaluate the patient in 4 weeks to assess his symptoms after the initiation of the long-acting nitrate therapy. During today's visit, we reviewed the warning signs that should prompt an urgent medical evaluation. Specifically, we discussed that the patient should go to the hospital if she develops any chest discomfort at rest or worsening chest discomfort with exertion. Orders: isosorbide mononitrate (IMDUR) 30 mg 24 hr tablet; Take 1 tablet (30 mg total) by mouth 1 (one) time each day in the evening. Do not crush or chew. Palpitations 03/30/2023 Overview (06/12/2023): Last Assessment & Plan: The patient has been experiencing episodes of palpitations. We will order a Holter monitor to evaluate for any underlying arrhythmias as a cause of her symptoms. Assessment & Plan (04/24/2024 12:37 PM EST): The patient has had episodes of palpitations in the past. He has also had episodes of near syncope in the past. 30-day ambulatory secured entrance monitor showed instances of high-grade AV block with a pause of up to 3 seconds. As a result of this, his carvedilol was decreased from 6.25 mg orally twice a day down to 3.5 mg orally twice a day. After the changing the dose of the beta-sabiha, no further episodes of high-grade AV block or sinus pauses were noted on the ambulatory secured entrance monitor. Of note, there was no evidence of any sustained arrhythmias. The patient has continued to have occasional episodes of palpitations. Case discussed with the electrophysiology service who recommended an ILR placement. The patient will undergo an ILR placement by Dr. Griffin on 05/16/2024. Cardiomyopathy (CMS/HCC V24, CMS/HCC V28) 2022 Overview (06/12/2023): Last Assessment & Plan: The patient has heart failure with reduced ejection fraction. Etiology: Probable nonischemic cardiomyopathy Last ischemic work-up: Nuclear stress test in December 2022 (no evidence of ischemia or infarct after attenuation correction was applied). Patient is scheduled for a cardiac CT scan on 06/20/2023 Nonischemic cardiomyopathy evaluation: 1. Cardiac MRI (February 2023): Late gadolinium enhancement imaging reveals mildly increased indistinct mid wall signal in the basal to mid inferolateral wall and possibly in the basal septal wall raising the question of an infiltrative disease. 2. Cardiac PYP scan (March 2023): Findings are not suggestive of TTR amyloidosis. 3. Laboratory testing (04/10/2023): Serum creatinine 0.9. Serum kappa lambda ratio at 2.25 (high). Serum free kappa level 30.15 (high). Free lambda level 13.4. Normal serum immunofixation study. Normal urine immunofixation study. Hematology evaluation requested and is currently scheduled for 05/31/2023. Last documented LVEF: 45 to 50% on echocardiogram done in November 2022; 47% by cardiac MRI done in February 2023 Current symptom classification: NYHA class 2 Guideline directed medical therapy: 1. Beta-blockers: Carvedilol 6.25 mg orally twice a day 2. ARNI / GLORIA inhibitor / ARB: Entresto 49/51 mg orally daily 3. MRA: Spironolactone 25 mg orally daily Candidate for ICD or GATE GUARD: Not a candidate due to the LVEF Plan of care: 1. Cardiac CT scan scheduled for 06/20/2023 for evaluation of coronary artery disease given episodes of atypical chest discomfort. 2. Continue current doses of carvedilol, Entresto, and spironolactone. 3. Hematology evaluation due to the abnormal serum kappa lambda ratio (evaluation currently scheduled for 05/31/2023). Chronic HFrEF (heart failure with reduced ejection fraction) (CMS/HCC V24, CMS/HCC V28) 01/12/2023 Overview (01/18/2024): Last Assessment & Plan: The patient has heart failure with reduced ejection fraction. ?? Etiology: Nonischemic cardiomyopathy ?? Last ischemic work-up: 1. Nuclear stress test in December 2022 (no evidence of ischemia or infarct after attenuation correction was applied). 2. Cardiac CT scan (July 2023): Mild nonobstructive CAD. Nonischemic cardiomyopathy evaluation: 1. Cardiac MRI (February 2023): ??Late gadolinium enhancement imaging reveals mildly increased indistinct mid wall signal in the basal to mid inferolateral wall and possibly in the basal septal wall raising the question of an infiltrative disease. ?? 2. Cardiac PYP scan (March 2023): Findings are not suggestive of TTR amyloidosis. 3. Laboratory testing (04/10/2023): Serum creatinine 0.9. Serum kappa lambda ratio at 2.25 (high). Serum free kappa level 30.15 (high). Free lambda level 13.4. Normal serum immunofixation study. Normal urine immunofixation study. The patient was evaluated by [facility] in May 2023 due to his elevated serum kappa lambda ratio and they determined that the patient did not have any plasma cell disorder. Last documented LVEF: 1. 45 to 50% on echocardiogram done in November 2022 2. 47% by cardiac MRI done in February 2023 ?? Current symptom classification: NYHA class 2 ?? Guideline directed medical therapy: 1. Beta-blockers: Carvedilol 6.25 mg orally twice a day 2. ARNI / GLORIA inhibitor / ARB: Entresto 49/51 mg orally daily 3. MRA: Spironolactone 25 mg orally daily ? Candidate for ICD or GATE GUARD: Not a candidate due to the LVEF ?? Plan of care: 1. Continue current medication regimen. 2. Follow-up chemistry panel. 3. Genetic testing (nonischemic cardiomyopathy panel). 4. Per the patient, he is scheduled to begin treatment for his sleep apnea in September 2023. Would recommend to continue with plans to treat his sleep apnea as directed by the sleep medicine team. Assessment & Plan (04/24/2024 12:37 PM EST): The patient has heart failure with reduced ejection fraction. Etiology: Nonischemic cardiomyopathy Last ischemic work-up: 1. Nuclear stress test in December 2022 (no evidence of ischemia or infarct after attenuation correction was applied). 2. Cardiac CT scan (July 2023): Mild nonobstructive CAD. Nonischemic cardiomyopathy evaluation: 1. Cardiac MRI (February 2023): Late gadolinium enhancement imaging reveals mildly increased indistinct mid wall signal in the basal to mid inferolateral wall and possibly in the basal septal wall raising the question of an infiltrative disease. 2. Cardiac PYP scan (March 2023): Findings are not suggestive of TTR amyloidosis. 3. Laboratory testing (04/10/2023): Serum creatinine 0.9. Serum kappa lambda ratio at 2.25 (high). Serum free kappa level 30.15 (high). Free lambda level 13.4. Normal serum immunofixation study. Normal urine immunofixation study. The patient was evaluated by [facility] in May 2023 due to his elevated serum kappa lambda ratio and they determined that the patient did not have any plasma cell disorder. 4. 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 The patient was referred to the [facility] genetic medicine program. Last documented LVEF: 1. 45 to 50% on echocardiogram done in November 2022 2. 47% by cardiac MRI done in February 2023 Current symptom classification: NYHA class 2 Guideline directed medical therapy: 1. Beta-blockers: Carvedilol 3.125 mg orally twice a day (unable to tolerate higher doses of carvedilol due to sinus pauses) 2. ARNI / GLORIA inhibitor / ARB: Entresto 49/51 mg orally daily 3. MRA: Spironolactone 25 mg orally daily 4. SGLT2 inhibitor: None Candidate for ICD or GATE GUARD: Not a candidate due to the LVEF Assessment: 59 years old male patient with history of heart failure with midrange ejection fraction due to a nonischemic cardiomyopathy. Prior cardiac CT scan showed mild to moderate nonobstructive CAD. Cardiac MRI showed evidence of a possible infiltrative cardiomyopathy but cardiac PYP scan did not show any evidence of TTR amyloidosis. The patient was also noted to have an abnormal serum kappa lambda ratio with a normal serum immunofixation study and a normal urine immunofixation study. He was referred for an evaluation with the [facility] hematology service who determined that the patient did not have a plasma cell disorder and therefore does not have AL amyloidosis. The patient's brother has a history of a cardiomyopathy and cardiac arrhythmias and is currently hospitalized in [place] awaiting a cardiac transplant. 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 We refer the patient for an evaluation with the [facility] genetics program but the patient states that he still has not received an appointment date. Will place a referral again. In the meantime, we will continue his current medication regimen. Plan: 1. Continue current doses of Entresto, carvedilol, and spironolactone. Assessment & Plan (03/28/2024 1:13 PM EST): The patient has heart failure with reduced ejection fraction. Etiology: Nonischemic cardiomyopathy Last ischemic work-up: 1. Nuclear stress test in December 2022 (no evidence of ischemia or infarct after attenuation correction was applied). 2. Cardiac CT scan (July 2023): Mild nonobstructive CAD. Nonischemic cardiomyopathy evaluation: 1. Cardiac MRI (February 2023): Late gadolinium enhancement imaging reveals mildly increased indistinct mid wall signal in the basal to mid inferolateral wall and possibly in the basal septal wall raising the question of an infiltrative disease. 2. Cardiac PYP scan (March 2023): Findings are not suggestive of TTR amyloidosis. 3. Laboratory testing (04/10/2023): Serum creatinine 0.9. Serum kappa lambda ratio at 2.25 (high). Serum free kappa level 30.15 (high). Free lambda level 13.4. Normal serum immunofixation study. Normal urine immunofixation study. The patient was evaluated by [facility] in May 2023 due to his elevated serum kappa lambda ratio and they determined that the patient did not have any plasma cell disorder. 4. 8. 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 The patient was referred to the [facility] genetic medicine program. Last documented LVEF: 1. 45 to 50% on echocardiogram done in November 2022 2. 47% by cardiac MRI done in February 2023 Current symptom classification: NYHA class 2 Guideline directed medical therapy: 1. Beta-blockers: Carvedilol 3.125 mg orally twice a day 2. ARNI / GLORIA inhibitor / ARB: Entresto 49/51 mg orally daily 3. MRA: Spironolactone 25 mg orally daily Candidate for ICD or GATE GUARD: Not a candidate due to the LVEF Orders: spironolactone (ALDACTONE) 25 mg tablet; Take 1 tablet (25 mg total) by mouth 1 (one) time each day. Chronic kidney disease, stage 2 (mild) 2 Stage 3a chronic kidney disease (CMS/HCC V24, CM S/HCC V28) 11/23/2021 Spondylosis 11/23/2021 Renal osteodystrophy 11/23/2021 Plantar fasciitis 11/23/2021 Low back pain 11/23/2021 Lateral epicondylitis 11/23/2021 Overview (06/12/2023): s/p Modified Marbin procedure, repair of conjoined tendon of extensor carpi radialis longus and brevis and of partial tear of the lateral collateral ligament 12/29/10- Dr Calin Melgar. 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 chr regional pain syndrome Cervical disc disorder with radiculopathy 2021 Overview (06/12/2023): C5-6 Left Cataract 11/23/2021 Anxiety disorder 11/23/2021 Allergic rhinitis 11/23/2021 Alcohol abuse 11/23/2021 HTN (hypertension) 02/21/2021 Overview (06/12/2023): Last Assessment & Plan: The patient has a history of arterial hypertension. The patient's blood pressure today was noted to be well controlled. We'll continue the current antihypertensive medication regimen. Assessment & Plan (04/24/2024 12:37 PM EST): The patient has a history of arterial hypertension. The patient's blood pressure today was noted to be well controlled. We'll continue the current antihypertensive medication regimen. Assessment & Plan (03/28/2024 1:13 PM EST): The patient has a history of arterial hypertension. The patient's blood pressure today was noted to be well controlled. We'll continue the current antihypertensive medication regimen. Mixed hyperlipidemia 02/17/2021 Overview (06/12/2023): Last Assessment & Plan: The patient has a history of hyperlipidemia. He is currently on atorvastatin. Will continue his current therapy. Renal mass 01/06/2021 Nephrotic syndrome 01/06/2021 Gastroesophageal reflux disease 11/19/2017 Gastroparesis 10/31/2017 Diabetes mellitus type 2, un complicated (CMS/HCC V24, CMS/HCC V28) 04/05/2017 Chronic constipation 02/02/2017 Renal lesion 02/01/2017 Anal fissure 11/23/2016 Internal hemorrhoids with complication 7 Dysphagia 06/21/2016 Urethral stone 07/21/2014 Asthma 03/18/2004 Overview (06/12/2023): Last Assessment & Plan: The patient has a history of sleep apnea. However, he has not been on CPAP therapy for years. On his previous office visit, we referred him for a reevaluation with a new sleep study. However, this was not completed. I will place an order for a sleep study again. Resolved Problems Problem Noted Date Diagnosed Date Resolved Date Chest pain 03/30/2023 03/28/2024 Overview (06/12/2023): Last Assessment & Plan: The patient has a history of episodes of atypical chest discomfort. Previous nuclear stress test did not show any evidence of ischemia or infarct after attenuation correction was applied. Given his continued symptoms, further cardiac testing was indicated and the patient was scheduled for a cardiac CT scan for better evaluation of his coronary anatomy and to rule out any significant underlying CAD. The CT scan is scheduled for 06/20/2023 at [facility]. In the meantime, the patient will continue his current medication regimen with carvedilol, aspirin, and atorvastatin. Dyspnea 11/06/2022 03/28/2024 Overview (06/12/2023): Last Assessment & Plan: The patient has been noticing symptoms of exertional dyspnea. He denies any chest pain at rest or with exertion. The patient does have multiple risk factors for coronary artery disease including: Hypertension, diabetes, and hyperlipidemia. Therefore, we need to consider the possibility of underlying coronary artery disease as a cause of his exertional symptoms. As such, an ischemic evaluation is indicated. We will refer the patient for a stress test. Given the patient's osteoarthritis and the need to ambulate with a cane, he will be unlikely to be able to tolerate an exercise protocol. Therefore, we will refer the patient for a pharmacological nuclear stress test. We will also order an echocardiogram to rule out any underlying structural heart disease as a cause of his symptoms. Snoring 03/18/2004 03/28/2024 Encounters Date Type Department Care Team Description 07/22/2024 12:25 PM EDT Ancillary Procedure [facility] 154 300 [facility] 154 [place] [address] Arrived 07/14/2024 8:41 AM EDT - 07/14/2024 11:59 PM EDT Hospital Encounter [facility] Xray [address] [place] [address] Dysphagia, unspecified type Discharge Disposition: Home or Self Care 06/26/2024 10:45 AM EDT Office Visit Orthopedic Surgery - [place] 250 175 [facility] 250 [place] [address] Cheng Rea, DPM Closed displaced fracture of cuboid bone of right foot with malunion (Primary Dx); Follow-up exam; Tendinitis of right ankle; Plantar fascial fibromatosis 06/18/2024 4:35 PM EST Ancillary Procedure [facility] [address] [address] 06/12/2024 Telephone [facility] [address] [phone] Musa Griffin MD Procedure (ILR Removal) 06/10/2024 11:05 AM EST Office Visit [facility] [address] [place] [phone] Musa Griffin MD Irritation symptom of skin (Primary Dx); Implantable loop recorder present 06/10/[address] [facility] [address] [place] [phone] Manuel Aldrich MD 05/29/2024 10:45 AM EST Office Visit Orthopedic Surgery [facility] [address] [phone] Cheng Rea DPM Closed displaced fracture of cuboid bone of right foot with malunion (Primary Dx); Tendinitis of right ankle; Plantar fascial fibromatosis 05/16/2024 11:30 AM EST - 05/16/2024 12:00 PM EST Surgery [facility] Cardiac [facility] [address] [place] [phone] Musa Griffin MD Loop recorder insertion [[id number] (CPT??)] 05/16/2024 10:21 AM EST - 05/16/2024 11:59 PM EST Hospital Encounter [facility]iac [facility] [address] [place] [phone] Musa Griffin MD Dilated cardiomyopathy (CMS/HCC V24, CMS/HCC V28) (Primary Dx); Palpitations; Near syncope Discharge Disposition: Home or Self Care 05/13/2024 10:45 AM EST Office Visit Orthopedic Surgery [facility] 250 [address] [facility] [address] [place] [phone] Cheng Rea DPM Closed displaced fracture of cuboid bone of right foot with malunion (Primary Dx); Tendinitis of right ankle; Plantar fascial fibromatosis 05/12/2024 9:20 AM EST Lab Draw Station - [address] [facility] [address] [facility] [address] [place] [address] Syncope 05/08/2024 10:00 AM EST Office Visit Gastroenterology - [place] 175 [address] [facility] [address] [place] [address] Idalia Sandoval PA LLQ abdominal pain (Primary Dx); Gastroesophageal reflux disease, unspecified whether esophagitis present; Gastroparesis; Oral phase dysphagia; Diverticulosis; Chronic constipation 05/08/2024 Telephone Orthopedic Surgery - [place] [address] [facility] [address] [place] [address] Cheng Rea, DPM 04/25/2024 Telephone [facility] [address] [place] [address] Ozzie Tellez MD hospital procedure (Cardiac cath/) from Last 3 Months Immunizations Name Administration Dates Next Due H1N1 Inj 02/16/2009 Hepatitis A Adult (Havrix; V aqta) 19yo and older 06/02/2004,02/21/2003 Hepatitis B (Qlitxcx-Q-Prmpl , Recombivax HB-Adult) 19yo and older 06/04/2003,12/19/2002,11/18/2002 Influenza Whole 01/26/2021 Influenza, Unspecified 01/20/2020,2018,01/11/2018,01/10,01/28/2016,01/15/2016,01/14/2015 ,01/01/2014,01/15/2013,01/04/2012,12/16,01/25/2010,01/05/2009, 6 Pfizer (ages 12 & older) LORY S-CoV-2 COVID-19, mRNA, LNP-S, adele-sucrose, preservative free 11/11/2021 Pneumococcal polysaccharide 23 valent (Pneumovax 23) 2yo and older 2005 Td, Unspecified 2005 Tdap Tetanus diptheria acell ular pertussis (Boostrix; Adacel) 7yo and older 09/29/2017,01/18/2012 Zoster recombinant (Shingrix ) 19yo and older 02/06/2018,11/26/2017 Medical History Medical History Date Comments Anal fissure 11/23/2016 DX:Anal fissure Chronic constipation 08/16/2017 DX:Chronic constipation Diabetes mellitus type 2, uncomplicated ([facility] V24, [facility] V28) 04/05/2017 DX:Diabetes mellitus type 2, uncomplicated ([facility]) Dysphagia 06/21/2016 DX:Dysphagia Esophageal reflux 11/19/2017 DX:Esophageal reflux Gastroparesis 10/31/2017 DX:Gastroparesis History of diverticulitis of colon 01/02/2017 DX:History of diverticulitis of colon Internal hemorrhoids with complication 7 DX:Internal hemorrhoids with complication Irritable bowel syndrome 02/02/2017 DX:Irri table bowel syndrome Renal lesion 02/01/2017 DX:Renal lesion Urethral stone 07/21/2014 DX:Urethral ston e Alcohol abuse DX:Alcohol abuse Allergic rhinitis DX:Allergic rh initis Anxiety disorder DX:Anxiety diso rder Cervical disc disorder with radiculopathy DX:Cervical disc disorder wi th radiculopathy Chronic back pain DX:Chronic desirae k pain Lateral epicondylitis of elbow D X:Lateral epicondylitis of elbow Chronic pain syndrome DX:Chronic pain syndrome Condyloma acuminatum of penis DX :Condyloma acuminatum of penis 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 Diverticulitis of colon DX:Diver ticulitis of colon; COMMENT: recurrent with bleeding Erectile dysfunction DX:Erectile dysfunction Fecal incontinence DX:Fecal inco ntinence Gastroesophageal reflux disease DX:Gastroesophageal reflux disease Gastroparesis diabeticorum ( [facility] V24, [facility] V28) DX:Gastroparesis diabeticoru m ([facility]) Hx of syphilis DX:Hx of syphili s Non-alcoholic fatty liver disease DX:Non-alcoholic fatty liver disease DHARA (obstructive sleep apnea) DX :DHARA (obstructive sleep apnea) 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 DX:Osteoarthritis of cervica l and lumbar spine Plantar fasciitis DX:Plantar fas ciitis Shoulder impingement syndrome, right DX:Shoulder impingement syndrome, right Snoring DX:Snoring Social History Tobacco Use Types Packs/Day Years Used Date Smoking Tobacco: Former Smokeless Tobacco: Former Tobacco Cessation:Counseling Given: Not Answered Alcohol Use Standard Drinks/Week Comments Not Currently 1 (1 standard drink = 0.6 oz pur e alcohol) Sex and Gender Information Value Date Recorded Sex Assigned at Male 05/16/2024 10:20 AM EST Legal Sex Male 4:52 AM EST Gender Identity Male 05/16/2024 10:20 AM EST Sexual Orientation Straight 05/16/2024 10 :20 AM EST Obstetrics History Last Filed Vital Signs Vital Sign Reading Time Taken Comments Blood Pressure 119/74 05/16/2024 10:41 AM EST Pulse 85 05/16/2024 10:41 AM EST Temperature 36.6 ??C (97.9 ??F) 05/16/2024 10:[address] Respiratory Rate 14 05/16/2024 10:41 AM EST Oxygen Saturation 97% 05/16/2024 10:41 AM EST Inhaled Oxygen Concentration - - Weight 109 kg (240 lb) 06/26/2024 10:54 AM EDT Height 177.8 cm (5' 10 ) 06/26/2024 10:54 AM EDT Body Mass Index 34.44 06/26/2024 10:54 AM EDT Plan of Treatment Upcoming Encounters Date Type Department Care Team (Late st Contact Info) Description 08/07/2024 10:00 AM EDT Office Visit Orthopedic Surgery - [place] [address] [facility] [address] [place] [phone] Cheng Rea DPFranco [address] [facility] [address] [place] [address] 09/10/2024 8:50 AM EDT Office Visit [facility] [address] [place] [phone] Manuel Aldrich MD [address] [place] [address] [address] [place] [address] 12/08/2024 9:10 AM EDT Office Visit Gastroenterology - [place] [address] [place] [phone] Idalia Sandoval PA [address] [facility] [address] [place] [address] Health Maintenance Due Date Last Done Comments Diabetes: Annual Foot Exam 1975 Diabetes: Annual Retina Eye Exam 1975 Cholesterol Screening (Lipid Panel) 03/25/2022 Depression Screening 03/25/2022 HIV Screening 03/25/2022 Hepatitis C Screening 03/25/2022 Medicare Annual Wellness Visit 03/25/2022 Social Influencers of Health Screening 03/25/2022 Diabetes: Blood Sugar Control Test (HGBA1C) 11/22/2022 05/25/2022 Diabetes: Annual GFR (Glomerular Filtration Rate) 05/12/2025 05/12/2024, 05/19/2021 Hypertension/CHF/CAD Annual BMP Blood Test 05/12/2025 05/12/2024, 05/19/2021 Diabetes: Annual Urine Albumin-Creatinine Ratio (uACR) 07/16/2025 07/16/2024 DTaP,Tdap,and Td Vaccines (4 - Td or Tdap) 09/30/2027 09/29/2017, 01/18/2012, 2005 Colorectal Cancer Screening: Colonoscopy 02/11/2030 02/12/2020 RSV Immunization Adult Patients (1 - 1-dose 75+ series) 2040 Hepatitis B Vaccines Completed 06/04/2003, 12/19/2002, 11/18/2002 Hepatitis A Vaccines Completed 06/02/2004, 02/22/20 03 Zoster Vaccines Completed 02/06/2018, 11/26/2017 Pneumococcal Vaccine: 50+ Years Completed 02/16/2022, 2005 Pneumococcal Vaccine: Pediatrics (0 to 5 Years) and At-Risk Patients (6 to 64 Years) Completed 02/16/2022, 2005 Influenza Vaccine Completed 12/20/2023, , 01/27/2022, Additional history exists COVID-19 Vaccine Completed 05/06/2024, , 11/11/2021, Additional history exists HIB Vaccines Aged Out No longer eligi ble based on patient's age to complete this topic HPV Vaccines Aged Out No longer eligi ble based on patient's age to complete this topic IPV Vaccines Aged Out No longer eligi ble based on patient's age to complete this topic MMR Vaccines Aged Out No longer eligi ble based on patient's age to complete this topic Meningococcal ACWY Vaccine Aged Out N o longer eligible based on patient's age to complete this topic Meningococcal B Vaccine Aged Out No l onger eligible based on patient's age to complete this topic RSV Immunization Patients Under 20 months Aged Out No longer eligible based on patient's age to complete this topic Varicella Vaccines Aged Out No longer eligible based on patient's age to complete this topic Medical Devices Implanted Type Area Supervisor Public Health Nursing Device Identifier Shelf Expiration Date Model / Serial / Lot Monitor Cardiac Insert Lux Dx Ii+ - [id number] - [id number] Implanted:Qty: 1 on 05/16/2024 by Musa Griffin MD at [facility] Cardiac Loop Recorder Left: Chest [employer] MGMT [id number] 09/12/2025 [id number] / [id number] / Procedures Procedure Name Priority Date/Time Associated Diagnosis Comments CARDIAC DEVICE CHECK- REMOTE- MURJ Routine 07/22/2024 12:24 PM EDT XR BARIUM SWALLOW WITH VIDEO AND SPEECH Routine 07/14/2024 8:59 AM EDT Dysphagia, unspecified type XR FOOT 3+ VIEWS RIGHT Routine 06/26/2024 11:13 AM EDT Follow-up exam INJECTION TENDON OR LIGAMENT Routine 06/26/2024 10:45 AM EDT Plantar fascial fibromatosis CARDIAC DEVICE CHECK- REMOTE- MURJ Routine 06/18/2024 4:32 PM EST INJECTION TENDON OR LIGAMENT Routine 05/29/2024 10:45 AM EST Plantar fascial fibromatosis LOOP RECORDER INSERTION Routine 05/16/2024 11:34 AM EST Palpitations Near syncope INJECTION TENDON OR LIGAMENT Routine 05/13/2024 10:45 AM EST Plantar fascial fibromatosis CBC WITH AUTO DIFFERENTIAL Routine 05/12/2024 9:17 AM EST Syncope PROTHROMBIN TIME WITH INR Routine 05/12/2024 9:17 AM EST Syncope BASIC METABOLIC PANEL Routine 05/12/2024 9:17 AM EST Syncope CBC AND DIFFERENTIAL Routine 05/12/2024 9:17 AM EST Syncope HM COLONOSCOPY Routine 02/12/2020 from Last 3 Months or Most Recently Relevant to Health Maintenance Results * Cardiac device check - Remote- MURJ (07/22/2024 12:24 PM EDT) Only the most recent of2 resultswithin the time period is included. Date Time Interrogation Session [id number] CV DEVICE CHECK Type Interrogation Session Remote Scheduled CV DEVICE CHECK Implantable Pulse Generator Supervisor Public Health Nursing BSX CV DEVICE CHECK Implantable Pulse Generator Type ILR CV DEVICE CHECK Implantable Pulse Generator Model M312 CV DEVICE CHECK Implantable Pulse Generator Serial Number [id number] CV DEVICE CHECK Implantable Pulse Generator Implant Date 20240516 CV DEVICE CHECK Battery Status Beginning of Service CV DEVICE CHECK Atrial Tachy Statistic AT/AF Ideal Percent 0.00 CV DEVICE CHECK Date of [...] Heart Rate Histograms reviewed Narrative Procedure Note Musa Griffin MD - 07/22/2024 IMPRESSION: Normal Remote: No Events * This is a normal remote diagnostic device check * Alerts or events: None * Battery data was reviewed * Battery status: JADA, OK * Presenting rhythm: Irregular SR w PVC's * Heart Rate Histograms reviewed Musa Griffin MD CV IMPLANTABLE CARDIAC DEV ICE PROCEDURES Final Result * XR Barium Swallow with Video and Speech (07/14/2024 8:59 AM EDT) Anatomical Region Laterality Modality Head and Neck Radiographic Danelle ging 07/14/2024 10:3 4 AM EDT Impressions 07/14/2024 11:05 AM EDT 1. No evidence for penetration or aspiration of the various consistencies. 2. Incidentally noted moderate anterior osteophyte formation at level of C4-5 which should be considered possible contributing factor to patient's globus sensation. Please refer to the dedicated speech pathologist report for further details as clinically indicated. -------- FINAL REPORT -------- Dictated By: Angela Cabrera Dictated Date: 07/14/2024 10:34 ET Assigned Physician: Peyman Pickard Reviewed and Electronically Signed By: Peyman Pickard Signed Date: 07/14/2024 11:05 ET Workstation ID: [id number] Transcribed By: Self Edit Transcribed Date: 07/14/2024 10:38 ET Resident/PA/COAT CHECKER: Angela Cabrera Narrative 07/14/2024 11:05 AM EDT CLINICAL HISTORY: dysphagia. STUDY: Modified barium swallow study COMPARISON: No prior modified swallow. Barium swallow imaging from May 02, 2016. HISTORY: Patient is a 59-year-old male with a history of dysphagia, globus sensation. TECHNIQUE: ??Multiple sequential fluoroscopic images of the lateral neck were obtained for a swallowing function study. ??Barium enhanced consistencies of pudding, honey, nectar, thin liquid, semi-solid, and a 13 mm barium tablet were utilized for evaluation. ??Examination was performed with the speech therapist present. ?? FINDINGS: There was no evidence for penetration or aspiration of the various consistencies. 13mm barium tablet was swallowed without difficulty with prompt passage of pill from the esophagus into the stomach. The patient is seen to have undergone previous anterior fusion at the C5-6 level. The surgical screws appear well-positioned and intact. These do not impress upon the posterior wall of the esophagus nor do they interfere with swallowing. DAP: 0.35 Gycm^2 Procedure Note Peyman Pickard MD - 07/14/2024 CLINICAL HISTORY: dysphagia. STUDY: Modified barium swallow study COMPARISON: No prior modified swallow. Barium swallow imaging from 2016. HISTORY: Patient is a 59-year-old male with a history of dysphagia, globussensation. TECHNIQUE: Multiple sequential fluoroscopic images of the lateral neckwere obtained for a swallowing function study. Barium enhancedconsistencies of pudding, honey, nectar, thin liquid, semi-solid, and a 13mm barium tablet were utilized for evaluation. Examination was performedwith the speech therapist present. FINDINGS: There was no evidence for penetration or aspiration of the variousconsistencies. 13mm barium tablet was swallowed without difficulty withprompt passage of pill from the esophagus into the stomach. The patient is seen to have undergone previous anterior fusion at the C5-6level. The surgical screws appear well-positioned and intact. These do notimpress upon the posterior wall of the esophagus nor do they interferewith swallowing. DAP: 0.35 Gycm^2 IMPRESSION: 1. No evidence for penetration or aspiration of the variousconsistencies. 2. Incidentally noted moderate anterior osteophyte formation at level ofC4-5 which should be considered possible contributing factor to patient'sglobus sensation. Please refer to the dedicated speech pathologist report for furtherdetails as clinically indicated. -------- FINAL REPORT -------- Dictated By: Angela Cabrera Dictated Date: 07/14/2024 10:34 ET Assigned Physician: Peyman Pickard Reviewed and Electronically Signed By: Peyman Pickard Signed Date: 07/14/2024 11:05 ET Workstation ID: [id number] Transcribed By: Self Edit Transcribed Date: 07/14/2024 10:38 ET Resident/PA/COAT CHECKER: Angela Cabrera us Vamshi Man MD IMG FLUOROSCOPY PROCEDURES F inal Result * XR Foot 3+ Views Right (06/26/2024 11:13 AM EDT) Anatomical Region Laterality Modality Lower Extremities, Foot Right Computed Radiography Narrative 07/04/2024 3:33 PM EDT Right foot 3 views Unchanged from previous exam heterotrophic bone formation malunion of the fifth metatarsal base with hardware present us Cheng Rea DPM IMG XR PROCEDURES Final R esult * Injection tendon or ligament (06/26/2024 10:45 AM EDT) Cheng Akhtar DPM - 06/26/2024 10:45 AM EDT Cheng Rea DPM ? 06/26/2024 12:27 PM Injection tendon or ligament Indications: pain Details: 25 G needle Medications: 0.5 mL lidocaine (PF) 1 %; 20 mg triamcinolone acetonide 40 mg/mL Informed Consent: ??Site: ??Foot ligament tendon us Cheng Rea DPM IN CLINIC/BEDSIDE ORDERAB LES Final Result * Injection tendon or ligament (05/29/2024 10:45 AM EST) Cheng Akhtar DPM - 05/29/2024 10:45 AM EST Cheng Rea DPM ? 05/29/2024 11:36 AM Injection tendon or ligament Indications: pain Details: 25 G needle Medications: 0.5 mL lidocaine (PF) 1 %; 20 mg triamcinolone acetonide 40 mg/mL Informed Consent: ??Site: ??Foot ligament tendon Cheng Rea DPM IN CLINIC/BEDSIDE ORDERAB LES Final Result * LOOP RECORDER INSERTION (05/16/2024 11:34 AM EST) Anatomical Region Laterality Modality X-Ray Angiograph y Narrative 05/20/2024 2:31 PM EST Patient have a cardiac event recorder Study Details 59 year old male patient with history of heart failure reduced ejection fraction due to a nonischemic cardiomyopathy, nonobstructive coronary artery disease, arterial hypertension, hyperlipidemia, diabetes mellitus type 2, IBS, obstructive sleep apnea (currently not on CPAP therapy per patient preference), osteoarthritis, and diverticulosis, with unexplained syncope with prior monitoring showing no significant arrhythmias Procedure Details Procedure Description Patient was brought to the EP lab in a fasting state. He was consented prior to procedure. He was prepped and draped in the usual sterile fashion. I gave lidocaine in the fourth intercostal space left of the sternal border. Made a small incision and I deployed the device using the [employer] apparatus. I noted good are sensing waves I closed incision with a 2-0 Vicryl. Dermabond was placed over the incision. Tegaderm dressing was placed over the incision. Device a T-System Lux DX. Model number is M312. Serial number is [id number]. R waves are 0.34mV. P waves were noted. Impression Successful implantation of a T-System MRI compatible implantable loop recorder Manuel Aldrich MD CV ELECTROPHYSIOLOGY P ROCEDURES Final Result * Injection tendon or ligament (05/13/2024 10:45 AM EST) Narrative Cheng Rea DPM - 05/13/2024 10:45 AM EST Cheng Rea DPM ? 05/13/2024 11:57 AM Injection tendon or ligament Indications: pain Details: 25 G needle Medications: 0.5 mL lidocaine (PF) 1 %; 20 mg triamcinolone acetonide 40 mg/mL Informed Consent: ??Site: ??Foot ligament tendon Cheng Rea DPM IN CLINIC/BEDSIDE ORDERAB LES Final Result * CBC auto differential (05/12/2024 9:17 AM EST) WBC 7.1 4.8 - 10.8 K/mcL LAB HEMETOLOGY METHOD 05/12/2024 2:56 PM [facility] RBC 4.80 4.50 - 5.50 M/mcL LAB HEMETOLOGY METHOD 05/12/2024 2:56 PM [facility] Hemoglobin 13.5 13.5 - 17.5 g/dL LAB HEMETOLOGY METHOD 05/12/2024 2:56 PM [facility] Hematocrit 42.0 42.0 - 54.0 % LAB HEMETOLOGY METHOD 05/12/2024 2:56 PM [facility] MCV 88.1 79.0 - 98.0 FL LAB HEMETOLOGY METHOD 05/12/2024 2:56 PM [facility] MCH 28.3 27.0 - 32.0 pcg LAB HEMETOLOGY METHOD 05/12/2024 2:56 PM [facility] MCHC 32.1 32.0 - 37.0 g/dL LAB HEMETOLOGY METHOD 05/12/2024 2:56 PM [facility] RDW 12.8 11.0 - 15.0 % LAB HEMETOLOGY METHOD 05/12/2024 2:56 PM [facility] Platelets 222 130 - 400 K/mcL LAB HEMETOLOGY METHOD 05/12/2024 2:56 PM [facility] MPV 9.6 7.0 - 11.0 FL LAB HEMETOLOGY METHOD 05/12/2024 2:56 PM [facility] NRBC 0.0 <1.0 % LAB HEMETOLOGY METHOD 05/12/2024 2:56 PM [facility] NRBC Absolute 0.00 <0.10 K/mcL LAB HEMETOLOGY METHOD 05/12/2024 2:56 PM [facility] Neutrophils Relative 55.6 % LAB HEMETOLOGY METHOD 05/12/2024 2:56 PM [facility] Lymphocytes Relative 30.6 % LAB HEMETOLOGY METHOD 05/12/2024 2:56 PM [facility] Monocytes Relative 11.5 % LAB HEMETOLOGY METHOD 05/12/2024 2:56 PM [facility] Eosinophils Relative 1.3 % LAB HEMETOLOGY METHOD 05/12/2024 2:56 PM [facility] Basophils Relative 0.9 % LAB HEMETOLOGY METHOD 05/12/2024 2:56 PM [facility] Immature Granulocytes Relative 0.1 % LAB HEMETOLOGY METHOD 05/12/2024 2:56 PM [facility] Neutrophils Absolute 3.92 1.50 - 7.00 K/mcL LAB HEMETOLOGY METHOD 05/12/2024 2:56 PM [facility] Lymphocytes Absolute 2.16 1.00 - 5.00 K/mcL LAB HEMETOLOGY METHOD 05/12/2024 2:56 PM EST [facility] Monocytes Absolute 0.81 0.20 - 1.00 K/[facility] LAB HEMETOLOGY METHOD 05/12/2024 2:56 PM [facility] Eosinophils Absolute 0.09 0.00 - 0.50 K/[facility] LAB HEMETOLOGY METHOD 05/12/2024 2:56 PM EST [facility] Basophils Absolute 0.06 0.00 - 0.20 K/[facility] HEMETOLOGY METHOD 05/12/2024 2:56 PM EST [facility] Immature Granulocytes Absolute 0.01 0.00 - 0.03 K/[facility] LAB HEMETOLOGY METHOD 05/12/2024 2:56 PM EST [facility] Blood Venous blood specimen / Unknown Venipuncture / Unknown 05/12/2024 9:17 AM EST 05/12/2024 9:17 AM EST us Musa Griffin MD LAB BLOOD ORDERABLES Final Result [facility] [address] [place] [address], [place] [phone] * Prothrombin time with INR (05/12/2024 9:17 AM EST) Protime 11.1 10.6 - 13.9 sec LAB COAGULATION METHOD 05/12/2024 2:30 PM EST [facility] LAB INR 0.9 LAB COAGULATION METHOD 05/12/2024 2:30 PM EST [facility] Blood Venous blood specimen / Unknown Venipuncture / Unknown 05/12/2024 9:17 AM EST 05/12/2024 9:17 AM EST us Musa Griffin MD LAB BLOOD ORDERABLES Final Result [facility] [address] [place] [address], * Basic metabolic panel (05/12/2024 9:17 AM EST) Sodium 135 133 - 145 mmol/L LAB CHEMISTRY METHOD 05/12/2024 3:18 PM [facility] Potassium 4.5 3.5 - 5.5 mmol/L LAB CHEMISTRY METHOD 05/12/2024 3:18 PM [facility] Chloride 102 96 - 110 mmol/L LAB CHEMISTRY METHOD 05/12/2024 3:18 PM [facility] CO2 25 21 - 32 mmol/L LAB CHEMISTRY METHOD 05/12/2024 3:18 PM [facility] Anion Gap 8 3 - 11 LAB CHEMISTRY METHOD 05/12/2024 3:18 PM [facility] Glucose 84 70 - 100 mg/dL LAB CHEMISTRY METHOD 05/12/2024 3:18 PM [facility] BUN 16 5 - 25 mg/dL LAB CHEMISTRY METHOD 05/12/2024 3:18 PM [facility] Creatinine 0.99 0.70 - 1.30 mg/dL LAB CHEMISTRY METHOD 05/12/2024 3:18 PM [facility] eGFR 88 >=60 mL/min/1. 73m2 LAB CHEMISTRY METHOD 05/12/2024 3:18 PM [facility] Comment:Calculation based on the??Chronic Kidney Disease Epidemiology Collaboration (CKD-EPI) equation refit??without adjustment for race. BUN/Creatinine Ratio 16.2 LAB CHEMISTRY METHOD 05/12/2024 3:18 PM [facility] Calcium 9.4 8.5 - 10.5 mg/dL LAB CHEMISTRY METHOD 05/12/2024 3:18 PM [facility] Blood Venous blood specimen / Unknown Venipuncture / Unknown 05/12/2024 9:17 AM EST 05/12/2024 9:17 AM EST Musa Griffin MD LAB BLOOD ORDERABLES Final Result [facility] [address] [place] [address], * Colonoscopy (02/12/2020) Colonoscopy no interpretation , abstracted Anatomical Region Laterality Modality Other us Historical Provider HEALTH MAINTENANCE Final Result from Last 3 Months or Most Recently Relevant to Health Maintenance Insurance MEDICAID - [place] MEDICARE Advance Directives Documents on File Type Date Recorded Patient Comsec Manager Expl anation Health Care Decision (hx) 07/31/2013 AD DURBIN DIRECTIVE Health Care Decision (hx) 07/31/2013 AD DURBIN DIRECTIVE Health Care Decision (hx) 07/31/2013 AD DURBIN DIRECTIVE Health Care Decision (hx) 07/31/2013 AD DURBIN DIRECTIVE Health Care Decision (hx) 07/31/2013 AD DURBIN DIRECTIVE Health Care Decision (hx) 07/31/2013 AD DURBIN DIRECTIVE Health Care Decision (hx) 07/31/2013 AD DURBIN DIRECTIVE Health Care Decision (hx) 07/31/2013 AD DURBIN DIRECTIVE Health Care Decision (hx) 07/31/2013 AD DURBIN DIRECTIVE Health Care Decision (hx) 07/31/2013 AD DURBIN DIRECTIVE Health Care Decision (hx) 07/31/2013 AD DURBIN DIRECTIVE Health Care Decision (hx) 07/31/2013 AD DURBIN DIRECTIVE Health Care Decision (hx) 07/31/2013 AD DURBIN DIRECTIVE Health Care Decision (hx) 07/31/2013 AD DURBIN DIRECTIVE Health Care Decision (hx) 07/31/2013 AD DURBIN DIRECTIVE Health Care Decision (hx) 07/31/2013 AD DURBIN DIRECTIVE Health Care Decision (hx) 07/31/2013 AD DURBIN DIRECTIVE Health Care Decision (hx) 07/31/2013 AD DURBIN DIRECTIVE Health Care Decision (hx) 07/31/2013 AD DURBIN DIRECTIVE Health Care Decision (hx) 07/31/2013 AD DURBIN DIRECTIVE Health Care Decision (hx) 07/31/2013 AD DURBIN DIRECTIVE Health Care Decision (hx) 07/31/2013 AD DURBIN DIRECTIVE Health Care Decision (hx) 07/31/2013 AD DURBIN DIRECTIVE Health Care Decision (hx) 07/31/2013 AD DURBIN DIRECTIVE Health Care Decision (hx) 07/31/2013 AD DURBIN DIRECTIVE Health Care Decision (hx) 07/31/2013 AD DURBIN DIRECTIVE Health Care Decision (hx) 07/31/2013 AD DURBIN DIRECTIVE Health Care Decision (hx) 07/31/2013 AD DURBIN DIRECTIVE Health Care Decision (hx) 07/31/2013 AD DURBIN DIRECTIVE Health Care Decision (hx) 07/31/2013 AD DURBIN DIRECTIVE Health Care Decision (hx) 07/31/2013 AD DURBIN DIRECTIVE Health Care Decision (hx) 07/31/2013 AD DURBIN DIRECTIVE Health Care Decision (hx) 07/31/2013 AD DURBIN DIRECTIVE Health Care Decision (hx) 07/31/2013 AD DURBIN DIRECTIVE Health Care Decision (hx) 07/31/2013 AD DURBIN DIRECTIVE Health Care Decision (hx) 07/31/2013 AD DURBIN DIRECTIVE Health Care Decision (hx) 07/31/2013 AD DURBIN DIRECTIVE Health Care Decision (hx) 07/31/2013 AD DURBIN DIRECTIVE Health Care Decision (hx) 07/31/2013 AD DURBIN DIRECTIVE Health Care Decision (hx) 07/14/2013 AD DURBIN DIRECTIVE Health Care Decision (hx) 07/14/2013 AD DURBIN DIRECTIVE Health Care Decision (hx) 07/14/2013 AD DURBIN DIRECTIVE Health Care Decision (hx) 07/14/2013 AD DURBIN DIRECTIVE Health Care Decision (hx) 07/14/2013 AD DURBIN DIRECTIVE Health Care Decision (hx) 07/14/2013 AD DURBIN DIRECTIVE Health Care Decision (hx) 07/14/2013 AD DURBIN DIRECTIVE Health Care Decision (hx) 07/14/2013 AD DURBIN DIRECTIVE Health Care Decision (hx) 07/14/2013 AD DURBIN DIRECTIVE Health Care Decision (hx) 07/14/2013 AD DURBIN DIRECTIVE Health Care Decision (hx) 07/14/2013 AD DURBIN DIRECTIVE Health Care Decision (hx) 07/14/2013 AD DURBIN DIRECTIVE Health Care Decision (hx) 07/14/2013 AD DURBIN DIRECTIVE Health Care Decision (hx) 07/14/2013 AD DURBIN DIRECTIVE Health Care Decision (hx) 07/14/2013 AD DURBIN DIRECTIVE Health Care Decision (hx) 07/14/2013 AD DURBIN DIRECTIVE Health Care Decision (hx) 07/14/2013 AD DURBIN DIRECTIVE Health Care Decision (hx) 07/14/2013 AD DURBIN DIRECTIVE Health Care Decision (hx) 07/14/2013 AD DURBIN DIRECTIVE Health Care Decision (hx) 07/14/2013 AD DURBIN DIRECTIVE Health Care Decision (hx) 07/14/2013 AD DURBIN DIRECTIVE Health Care Decision (hx) 07/14/2013 AD DURBIN DIRECTIVE Health Care Decision (hx) 07/14/2013 AD DURBIN DIRECTIVE Health Care Decision (hx) 07/14/2013 AD DURBIN DIRECTIVE Health Care Decision (hx) 07/14/2013 AD DURBIN DIRECTIVE Health Care Decision (hx) 07/14/2013 AD DURBIN DIRECTIVE Health Care Decision (hx) 07/14/2013 AD DURBIN DIRECTIVE Health Care Decision (hx) 07/14/2013 AD DURBIN DIRECTIVE Health Care Decision (hx) 07/14/2013 AD DURBIN DIRECTIVE Health Care Decision (hx) 07/14/2013 AD DURBIN DIRECTIVE Health Care Decision (hx) 07/14/2013 AD DURBIN DIRECTIVE Health Care Decision (hx) 07/14/2013 AD DURBIN DIRECTIVE Health Care Decision (hx) 07/14/2013 AD DURBIN DIRECTIVE Health Care Decision (hx) 07/14/2013 AD DURBIN DIRECTIVE Health Care Decision (hx) 07/14/2013 AD DURBIN DIRECTIVE Health Care Decision (hx) 07/14/2013 AD DURBIN DIRECTIVE Health Care Decision (hx) 07/14/2013 AD DURBIN DIRECTIVE Health Care Decision (hx) 07/14/2013 AD DURBIN DIRECTIVE Health Care Decision (hx) 07/14/2013 AD DURBIN DIRECTIVE Care Teams Freight Sorter Relationship Specialty Start Date End Date Vamshi Man MD [address] [place] [id number] PCP - General 10/06/10
--- OUTSIDE RECORDS SUMMARY | 2024-07-24 15:03 | XMS_ITS | Clinical Summary ---
Author Organization [facility] Address [address] [place] [address] Care Team Providers Care Envelope Cutter Name Role Phone Vamshi Man MD Primary Care Provider + [phone] Allergies Active Allergy Reactions Criticality Noted Date Comments Latex 05/30/2023 Penicillins 05/30/2023 Medications Medication Sig Dispensed Refills Start Date End Date Status Insulin Glargine, 2 Unit Dial, 300 UNIT/ML SOPN Inject 60 Units under the skin daily. 0 Active Liraglutide -Weight Management 18 MG/3ML SOPN Inject 1.8 Int'l Units under the skin daily. 0 Active carvedilol (COREG) 6.25 MG tablet Take 1 tablet (6.25 mg total) by mouth 2 (two) times a day with meals. 0 Active sacubitril-valsartan (ENTRESTO) 49-51 MG per tablet Take 1 tablet by mouth 2 (two) times a day. 0 Active LORazepam (ATIVAN) 1 MG tablet Take 1 tablet (1 mg total) by mouth as needed for anxiety (1 tab 30 minutes before cardiac MRI). 0 Active linaclotide (LINZESS) 290 MCG capsule Take 1 capsule (290 mcg total) by mouth daily. 0 Active pantoprazole (PROTONIX) 40 MG tablet Take 1 tablet (40 mg total) by mouth 2 (two) times a day before breakfast and dinner. 0 Active ondansetron (ZOFRAN) 4 MG tablet Take 1 tablet (4 mg total) by mouth every 8 (eight) hours as needed for nausea. 0 Active metoclopramide (REGLAN) tablet 5 mg Take 1 tablet (5 mg total) by mouth 4 (four) times a day. 0 Active senna-docusate (PERICOLACE) 8.6-50 MG Take 1 tablet by mouth 4 (four) times a day as needed for constipation. 0 Active Diclofenac Sodium 1 % GEL Apply 4 g topically 2 (two) times a day. 0 Active glipiZIDE (GLUCOTROL) tablet 5 mg Take 1 tablet (5 mg total) by mouth 2 (two) times a day before breakfast and dinner. 0 Active tamsulosin (FLOMAX) 0.4 MG CAPS Take 1 capsule (0.4 mg total) by mouth 2 (two) times a day. 0 Active buPROPion (Wellbutrin SR) 150 MG 12 hr tablet Take 1 tablet (150 mg total) by mouth daily. 0 Active DULoxetine (CYMBALTA) DR capsule 60 mg Take 1 capsule (60 mg total) by mouth daily. 0 Active spironolactone (ALDACTONE) tablet 25 mg Take 1 tablet (25 mg total) by mouth daily. 0 Active methadone (DOLOPHINE) 10 MG tablet Take 1 tablet (10 mg total) by mouth daily as needed for pain. 0 Active albuterol (Proventil HFA) 108 (90 Base) MCG/ACT inhaler Inhale 2 puffs into the lungs as needed for wheezing or shortness of breath. 0 Active aspirin EC 81 MG tablet Take 1 tablet (81 mg total) by mouth daily. 0 Active cromolyn (OPTICROM) 4 % ophthalmic solution Apply 1 drop to eye as needed. 0 Active metFORMIN (GLUCOPHAGE) tablet 1000 mg Take 750 mg by mouth daily. 0 Active atorvastatin (LIPITOR) tablet 40 mg Take 1 tablet (40 mg total) by mouth daily. 0 Active mometasone (NASONEX) 50 MCG/ACT nasal spray spray or apply 2 sprays inside Nose daily. 0 Active montelukast (SINGULAIR) 10 MG tablet Take 1 tablet (10 mg total) by mouth every night at bedtime. 0 Active Testosterone Cypionate 200 MG/ML SOLN Inject as directed. 0 Activ e latanoprost (XALATAN) 0.005 % ophthalmic solution Apply 1 drop to eye every night at bedtime. 0 Active zolpidem (AMBIEN) 10 MG tablet Take 1 tablet (10 mg total) by mouth every night at bedtime as needed for sleep. 0 Active Active Problems No known active problems Social History Tobacco Use Types Packs/Day Years Used Date Smoking Tobacco: Never Smokeless Tobacco: Never Tobacco Cessation:Counseling Given: Not Answered Alcohol Use Standard Drinks/Week Comments Never 0 (1 standard drink = 0.6 oz pur e alcohol) Sex and Gender Information Value Date Recorded Sex Assigned at Male 05/02/2023 1:32 PM EST Gender Identity Not on file Sexual Orientation Not on file Job Start Date Occupation Industry Not on file Not on file Not on file Last Filed Vital Signs Vital Sign Reading Time Taken Comments Blood Pressure 116/70 06/14/2023 10:56 AM EST Pulse 88 06/14/2023 10:56 AM EST Temperature 36.4 ??C (97.6 ??F) 06/14/2023 10:[address] Respiratory Rate - - Oxygen Saturation 100% 06/14/2023 10:56 AM EST Inhaled Oxygen Concentration - - Weight 118.4 kg (261 lb) 06/14/2023 10:56 AM EST Height - - Body Mass Index - - Plan of Treatment Health Maintenance Due Date Last Done Comments Hepatitis C Screening 1965 Depression Screening 1977 Preventative Health Evaluation 1983 Colon Cancer Screening (Colonoscopy) 2010 COVID-19 Vaccine ( season) 2023 01/30/2023, 11/11/2021, 02/23/2021, Additional history exists Influenza Vaccine (#1) 2023 , 01/20/2020, 01/24/2019, Additional history exists DTap / Tdap / Td (3 - Td or Tdap) 09/30/2027 09/29/2017, 01/18/2012, 2005 Hepatitis B Vaccines Completed 06/04/2003, 12/19/2002, 11/18/2002 Shingrix-Zoster Vaccine Completed 02/06/2018, 11/26 Pneumococcal Vaccine Aged Out 02/16/2022, 03/23/20 05 No longer eligible based on patient's age to complete this topic RSV Ped < 20 months Aged Out No longe r eligible based on patient's age to complete this topic Care Teams Envelope Cutter Relationship Specialty Start Date End Date Vamshi Man MD [address] [place] [id number] PCP - General Internal Medicine 05/02/23
[2024-08-11 14:14] VITALS: BMI 31.2
--- NOTE | 2024-08-12 09:06 | HO.ANESPROP2 ---
Documented by User: Maylin Todd NP 08/12/24 09:11 HPI - Anesthesia Eval Consult details Narrative: 59yo M for Upper Endoscopy Anesthesia Pre-Procedure Meds Is the patient on any of the following meds?: GLP1/DPP4 PMFSH Active Problems Active Problems: All Active Problems MGUS (monoclonal gammopathy of unknown significance) (Acute) Atherosclerotic cardiovascular disease (Acute) BPH with elevated PSA (Acute) BPH loc w urin obs/LUTS (Acute) High prostate specific antigen (PSA) (Acute) Trigger thumb of right hand (Acute) Trigger little finger of right hand (Acute) Trigger index finger of right hand (Acute) Left sided abdominal pain (Acute) Cardiomyopathy (Acute) Renal cyst (Acute) Osteoarthritis of right knee (Acute) Osteoarthritis of right foot (Acute) History of esophageal dilatation (Acute) GERD (gastroesophageal reflux disease) (Acute) Dysphagia (Acute) HTN (hypertension) (Acute) Bleeding hemorrhoids (Acute) Diabetes mellitus (Acute) Asthma (Acute) Past Medical History Medical History (Updated 08/12/24 @ 15:07 by Jose Whitney MD) Diverticulosis Osteoarthritis IBS (irritable bowel syndrome) Hyperlipidemia CAD (coronary artery disease) Nonischemic cardiomyopathy CHF (congestive heart failure) Sleep apnea Obesity (BMI 30.0-34.9) Left flank discomfort Upper abdominal pain GERD (gastroesophageal reflux disease) Elevated cholesterol HTN (hypertension) Constipation by delayed colonic transit Bleeding hemorrhoids Diabetes mellitus Asthma Family History Family History Mother History of colon cancer Brother History of liver cancer Maternal Aunt History of colon cancer Father No problems noted. Family history of problems with anesthesia: No Surgical History Surgical History History of dacryocystorhinostomy H/O foot surgery History of esophagogastroduodenoscopy (EGD) History of tonsillectomy History of sinus surgery History of neck surgery History of carpal tunnel release History of release of tendon History of umbilical hernia repair History of colonoscopy History of Problems with Anesthesia: No Social History Social History Household Members: None Are you a primary career and technology education teacher to a significant other at home: No Do you presently have visiting nurse or other home services: No Alcohol intake: never Patient Tobacco Use Status: Former Tobacco user Tobacco use type: Cigarette Second Hand Smoke Exposure: No Have you been hit, kicked, punched, or otherwise hurt by someone within the past year? 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 Meds Allergies Allergy/AdvReac Type Severity Reaction Status Date / Time Penicillins [PENICILLINS] Allergy Unknown RASH Verified 08/12/24 09:33 lactose AdvReac Intermediate Abdominal Uncoded 05/26/24 10:11 Pain Home Medications ?Medication ?Instructions ?Recorded ?Confirmed ?Last Taken ?Type methadone 10 mg tablet 10 mg PO TID PRN Pain 02/19/20 08/11/24 12/26/22 History montelukast 10 mg tablet 10 mg PO DAILY 02/19/20 08/11/24 Unknown History (Singulair) duloxetine 60 mg capsule,delayed 60 mg PO DAILY 09/10/20 08/11/24 Unknown History release zolpidem 10 mg tablet 10 mg PO BEDTIME PRN insomnia 08/12/21 08/11/24 Unknown History albuterol sulfate 90 mcg/actuation 2 puff inhalation Q4H PRN Wheezing 10/27/21 08/11/24 Unknown History aerosol inhaler alprazolam 2 mg tablet 1 tab PO BID PRN anxiety 10/27/21 08/11/24 Unknown History latanoprost 0.005 % eye drops 1 drp ophthalmic (eye) BEDTIME 10/27/21 08/11/24 Unknown History multivitamin with folic acid 400 1 tab PO DAILY 10/27/21 08/11/24 Unknown History mcg tablet (Tab-A-Kelsie) naloxone 4 mg/actuation nasal 1 spray intranasal DAILY 10/27/21 08/11/24 Unknown History spray (Narcan) blood sugar diagnostic (FreeStyle #10 ea 07/10/22 04/17/24 Unknown History Lite Strips) magnesium oxide 400 mg (241.3 mg 400 mg PO DAILY 07/10/22 08/11/24 Unknown History magnesium) tablet metformin 750 mg tablet,extended 750 mg PO DAILY 07/10/22 08/11/24 Unknown History release 24 hr pen needle, diabetic 33 gauge x #100 ea 07/10/22 04/17/24 Unknown History 1/4 (Comfort EZ Pen [place]) testosterone enanthate 200 mg/mL 150 mg IM Q2W 07/10/22 08/11/24 Unknown History intramuscular oil tizanidine 4 mg tablet 4 mg PO TID PRN Pain 07/10/22 08/11/24 Unknown History linaclotide 290 mcg capsule 290 mcg PO DAILY PRN Constipation 12/11/22 08/11/24 Unknown History (Linzess) pen needle, diabetic 31 gauge x #1,200 ea 12/11/22 04/17/24 Unknown History / (UltiCare Pen Needle) levocetirizine 5 mg tablet 5 mg PO DAILY 01/25/23 08/11/24 Unknown History spironolactone 25 mg tablet 25 mg PO DAILY 01/25/23 08/11/24 Unknown History sacubitril 49 mg-valsartan 51 mg 1 tab PO BID 04/11/23 08/11/24 Unknown History tablet (Entresto) cholecalciferol (vitamin D3) 25 25 mcg PO DAILY 05/08/23 08/11/24 Unknown History mcg (1,000 unit) capsule ketotifen fumarate 0.025 % (0.035 1 drp ophthalmic (eye) BID 05/08/23 08/11/24 Unknown History %) eye drops insulin glargine U-300 conc 300 70 unit subcut DAILY 08/14/23 08/11/24 Unknown History unit/mL (3 mL) subcutaneous pen (Toujeo Max U-300 SoloStar) cyclobenzaprine 5 mg tablet 10 mg PO DAILY 11/13/23 08/11/24 Unknown History atorvastatin 80 mg tablet 80 mg PO DAILY 12/03/23 08/11/24 Unknown History dorzolamide 2 % eye drops 2 drp ophthalmic (eye) DAILY 12/03/23 08/11/24 Unknown History fluticasone furoate 100 1 inh inhalation DAILY 12/03/23 08/11/24 Unknown History mcg/actuation blister powder for inhalation (Arnuity Ellipta) fluticasone propionate 50 1 spray intranasal BID 12/03/23 08/11/24 Unknown History mcg/actuation nasal spray,suspension glipizide 5 mg tablet 5 mg PO BID 12/03/23 08/11/24 Unknown History ondansetron HCl 4 mg tablet 4 mg PO Q8H PRN Nausea 12/03/23 08/11/24 Unknown History prazosin 5 mg capsule 5 mg PO DAILY 12/03/23 08/11/24 Unknown History bupropion HCl 150 mg 24 hr tablet, 150 mg PO QAM 02/13/24 08/11/24 Unknown History extended release aspirin 81 mg tablet,delayed 81 mg PO DAILY 04/07/24 08/11/24 Unknown History release brimonidine 0.2 % eye drops 1 drp ophthalmic (eye) DAILY 05/26/24 08/11/24 Unknown History bupropion HCl 300 mg 24 hr tablet, 300 mg PO DAILY 05/26/24 08/11/24 Unknown History extended release carvedilol 3.125 mg tablet 3.125 mg PO BID 05/26/24 08/11/24 Unknown History isosorbide mononitrate 60 mg 60 mg PO DAILY 05/26/24 08/11/24 Unknown History tablet,extended release 24 hr metoclopramide HCl 5 mg tablet 5 mg PO DAILY 05/26/24 08/11/24 Unknown History naproxen 500 mg tablet 500 mg PO BID PRN Pain 05/26/24 08/11/24 Unknown History netarsudil 0.02 %-latanoprost 1 drp ophthalmic (eye) DAILY 05/26/24 08/11/24 Unknown History 0.005 % [facility] pen needle, diabetic, safety 32 #100 ea 05/26/24 Unknown History gauge x 5/32 (True Comfort Safety Pen Needle) prednisolone acetate 1 % eye 1 drp ophthalmic (eye) DAILY 05/26/24 08/11/24 Unknown History drops,suspension tamsulosin 0.4 mg capsule 0.4 mg PO DAILY 05/26/24 08/11/24 Unknown History tirzepatide 15 mg/0.5 mL 15 mg subcut QWEEK 05/26/24 08/11/24 08/04/24 History subcutaneous pen injector (Tamela) Exam Height,Weight and Vital Signs: Height 6 ft 2 in Weight 110.223 kg Pertinent Lab Results Pertinent Lab Results: Laboratory Tests 04/17/24 08/05/24 08:22 10:15 WBC 7.3 Hgb 13.2 L Hct 39.8 L Plt Count 219 Sodium 140 Potassium 5.1 Chloride 107 Carbon Dioxide 26 BUN 19 H Creatinine 0.92 Narrative Narrative: Per 01/2024 cardiac office visit note: Cardiac studies reviewed. Coronary CT from 06/2023-minimal stenosis in the ostial, proximal LAD, proximal circumflex, distal circumflex, proximal RCA with short segment of calcified plaque. Dilated main pulmonary artery up to 3.2 cm, possible pulmonary hypertension in setting of DHARA. Cardiac MRI 02/2023 suggestive nonischemic cardiomyopathy. Study limited due to motion artifact/arrhythmia. Mildly diminished LVEF at 47%. Mild wall thickening, greatest in the basal to mid septum. Late gadolinium enhancement with mildly increased mid wall signal in the basal to mid inferolateral wall and possibly the basal septum, possible infiltrative disease. Myocarditis not excluded. No evidence of infarct. Normal RV size and function. Overall, he has got mild coronary disease mild cardiomyopathy. Cardiac PYP scan 2022- not suggestive of TTR amyloidosis. Holter 2023-sinus rhythm, PACs and PVCs. Echocardiogram 01/2024 with LVEF of 45-50%. Assessment and Plan Assessment Anesthesia Assessment: Chart Reviewed Final Anesthetic Review Family History of Problems with Anesthesia: No History of Problems with Anesthesia: No Documented by User: Chriss Brito MD 08/13/24 09:41 [facility] Past Medical History Medical History (Updated 08/12/24 @ 15:07 by Jose Whitney MD) Diverticulosis Osteoarthritis IBS (irritable bowel syndrome) Hyperlipidemia CAD (coronary artery disease) Nonischemic cardiomyopathy CHF (congestive heart failure) Sleep apnea Obesity (BMI 30.0-34.9) Left flank discomfort Upper abdominal pain GERD (gastroesophageal reflux disease) Elevated cholesterol HTN (hypertension) Constipation by delayed colonic transit Bleeding hemorrhoids Diabetes mellitus Asthma Family History Family History Mother History of colon cancer Brother History of liver cancer Maternal Aunt History of colon cancer Father No problems noted. Surgical History Surgical History History of dacryocystorhinostomy H/O foot surgery History of esophagogastroduodenoscopy (EGD) History of tonsillectomy History of sinus surgery History of neck surgery History of carpal tunnel release History of release of tendon History of umbilical hernia repair History of colonoscopy Social History Social History Household Members: None Are you a primary career and technology education teacher to a significant other at home: No Do you presently have visiting nurse or other home services: No Alcohol intake: never Patient Tobacco Use Status: Former Tobacco user Tobacco use type: Cigarette Second Hand Smoke Exposure: No Have you been hit, kicked, punched, or otherwise hurt by someone within the past year? 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 Meds Allergies Allergy/AdvReac Type Severity Reaction Status Date / Time Penicillins [PENICILLINS] Allergy Unknown RASH Verified 08/12/24 09:33 lactose AdvReac Intermediate Abdominal Uncoded 05/26/24 10:11 Pain Home Medications ?Medication ?Instructions ?Recorded ?Confirmed ?Last Taken ?Type methadone 10 mg tablet 10 mg PO TID PRN Pain 02/19/20 08/11/24 12/26/22 History montelukast 10 mg tablet 10 mg PO DAILY 02/19/20 08/11/24 Unknown History (Singulair) duloxetine 60 mg capsule,delayed 60 mg PO DAILY 09/10/20 08/11/24 Unknown History release zolpidem 10 mg tablet 10 mg PO BEDTIME PRN insomnia 08/12/21 08/11/24 Unknown History albuterol sulfate 90 mcg/actuation 2 puff inhalation Q4H PRN Wheezing 10/27/21 08/11/24 Unknown History aerosol inhaler alprazolam 2 mg tablet 1 tab PO BID PRN anxiety 10/27/21 08/11/24 Unknown History latanoprost 0.005 % eye drops 1 drp ophthalmic (eye) BEDTIME 10/27/21 08/11/24 Unknown History multivitamin with folic acid 400 1 tab PO DAILY 10/27/21 08/11/24 Unknown History mcg tablet (Tab-A-Kelsie) naloxone 4 mg/actuation nasal 1 spray intranasal DAILY 10/27/21 08/11/24 Unknown History spray (Narcan) blood sugar diagnostic (FreeStyle #10 ea 07/10/22 04/17/24 Unknown History Lite Strips) magnesium oxide 400 mg (241.3 mg 400 mg PO DAILY 07/10/22 08/11/24 Unknown History magnesium) tablet metformin 750 mg tablet,extended 750 mg PO DAILY 07/10/22 08/11/24 Unknown History release 24 hr pen needle, diabetic 33 gauge x #100 ea 07/10/22 04/17/24 Unknown History 04/19 (Comfort EZ Pen [place]) testosterone enanthate 200 mg/mL 150 mg IM Q2W 07/10/22 08/11/24 Unknown History intramuscular oil tizanidine 4 mg tablet 4 mg PO TID PRN Pain 07/10/22 08/11/24 Unknown History linaclotide 290 mcg capsule 290 mcg PO DAILY PRN Constipation 12/11/22 08/11/24 Unknown History (Linzess) pen needle, diabetic 31 gauge x #1,200 ea 12/11/22 04/17/24 Unknown History 08/29 (UltiCare Pen Needle) levocetirizine 5 mg tablet 5 mg PO DAILY 01/25/23 08/11/24 Unknown History spironolactone 25 mg tablet 25 mg PO DAILY 01/25/23 08/11/24 Unknown History sacubitril 49 mg-valsartan 51 mg 1 tab PO BID 04/11/23 08/11/24 Unknown History tablet (Entresto) cholecalciferol (vitamin D3) 25 25 mcg PO DAILY 05/08/23 08/11/24 Unknown History mcg (1,000 unit) capsule ketotifen fumarate 0.025 % (0.035 1 drp ophthalmic (eye) BID 05/08/23 08/11/24 Unknown History %) eye drops insulin glargine U-300 conc 300 70 unit subcut DAILY 08/14/23 08/11/24 Unknown History unit/mL (3 mL) subcutaneous pen (Toujeo Max U-300 SoloStar) cyclobenzaprine 5 mg tablet 10 mg PO DAILY 11/13/23 08/11/24 Unknown History atorvastatin 80 mg tablet 80 mg PO DAILY 12/03/23 08/11/24 Unknown History dorzolamide 2 % eye drops 2 drp ophthalmic (eye) DAILY 12/03/23 08/11/24 Unknown History fluticasone furoate 100 1 inh inhalation DAILY 12/03/23 08/11/24 Unknown History mcg/actuation blister powder for inhalation (Arnuity Ellipta) fluticasone propionate 50 1 spray intranasal BID 12/03/23 08/11/24 Unknown History mcg/actuation nasal spray,suspension glipizide 5 mg tablet 5 mg PO BID 12/03/23 08/11/24 Unknown History ondansetron HCl 4 mg tablet 4 mg PO Q8H PRN Nausea 12/03/23 08/11/24 Unknown History prazosin 5 mg capsule 5 mg PO DAILY 12/03/23 08/11/24 Unknown History bupropion HCl 150 mg 24 hr tablet, 150 mg PO QAM 02/13/24 08/11/24 Unknown History extended release aspirin 81 mg tablet,delayed 81 mg PO DAILY 04/07/24 08/11/24 Unknown History release brimonidine 0.2 % eye drops 1 drp ophthalmic (eye) DAILY 05/26/24 08/11/24 Unknown History bupropion HCl 300 mg 24 hr tablet, 300 mg PO DAILY 05/26/24 08/11/24 Unknown History extended release carvedilol 3.125 mg tablet 3.125 mg PO BID 05/26/24 08/11/24 Unknown History isosorbide mononitrate 60 mg 60 mg PO DAILY 05/26/24 08/11/24 Unknown History tablet,extended release 24 hr metoclopramide HCl 5 mg tablet 5 mg PO DAILY 05/26/24 08/11/24 Unknown History naproxen 500 mg tablet 500 mg PO BID PRN Pain 05/26/24 08/11/24 Unknown History netarsudil 0.02 %-latanoprost 1 drp ophthalmic (eye) DAILY 05/26/24 08/11/24 Unknown History 0.005 % eye drops (Rocklatan) pen needle, diabetic, safety 32 #100 ea 05/26/24 Unknown History gauge x 5/32 (True Comfort Safety Pen Needle) prednisolone acetate 1 % eye 1 drp ophthalmic (eye) DAILY 05/26/24 08/11/24 Unknown History drops,suspension tamsulosin 0.4 mg capsule 0.4 mg PO DAILY 05/26/24 08/11/24 Unknown History tirzepatide 15 mg/0.5 mL 15 mg subcut QWEEK 05/26/24 08/11/24 08/04/24 History subcutaneous pen injector (Tamela) Exam Airway Mallampati Class: II TM Dist: <=3cm Neck ROM: Full Heart: CMOP. EF 45% Lungs: ok Assessment and Plan Assessment Anesthesia Assessment: Anesthesia Plan Discussed Final Anesthetic Review NPO: Yes ASA Class: IV Final Preanesthetic Review: No Changes in Pt Med Stat, Meds/Allgs Chart Reviewed, Consent Obtained/Reviewed and Anes Risks/Benef Reviewed Patient Risk: High Procedure Risk: Intermediate Anesthetic Plan Anesthetic Plan: Agree w/ Assess. and Plan and TIVA Disposition: Standard PACU
[2024-08-13 08:19] VITALS: BMI 30.6
[2024-08-13 08:26] VITALS: BP 128/72; PULSE 86; RESP 16; TEMP 36.2; O2SAT 98
[2024-08-13] MEDS: Lactated Ringers 1,000 ML 100 ML IVCONT (08:32)
--- NOTE | 2024-08-13 09:05 | P.HPSUR_ITS ---
Pre-Procedural Eval Section A - 24 Hr Update-Section A only Date of Service: 08/13/24 Section B - Complete if H&P > 30 days Chief Complaint: Dysphagia, Relevant Family History (Specify if Yes): No Relevant Social History: None Present Medications: see Short Stay Collaborative assessment Medical History: Significant History (Diverticulosis Osteoarthritis IBS (irritable bowel syndrome) Hyperlipidemia CAD (coronary artery disease) Nonischemic cardiomyopathy CHF (congestive heart failure) Sleep apnea Obesity (BMI 30.0-34.9) Left flank discomfort Upper abdominal pain GERD (gastroesophageal reflux disease) Elevated cholester) History of Previous Operations: Relevant previous surgery/procedure and date(s) (History of dacryocystorhinostomy H/O foot surgery History of esophagogas troduodenoscopy (EGD) History of tonsillectomy History of sinus surgery History of neck surgery History of carpal tunnel release History of release of tendon History of umbilical hernia repair History of colonoscopy) Allergies: Allergies Allergy/AdvReac Type Severity Reaction Status Date / Time Penicillins [PENICILLINS] Allergy Unknown RASH Verified 08/12/24 09:33 lactose AdvReac Intermediate Abdominal Uncoded 05/26/24 10:11 Pain Review of Systems Sugical H&P ROS: Negative: Constitution, Cardiovascular, Respiratory, Neurological, Psychiatric, Hem-Onc, Allergic/Immunologic, Gastrointestinal, Genitourinary, Musculoskeletal, Integumentary, Endocrine and Eyes/Ears/ Nose/Throat Exam Surgical H&P Exam: Normal: HEENT, Normal: Heart, Normal: Lungs, Normal: Extremities, Normal: Abdomen, Normal: Skin and Normal: Neurological Plan Diagnosis/Plan: Unchanged I have reviewed the history and physical and performed a pertinent physical examination on my patient. No changes have occurred unless specified. Time Spent With Patient Time: Total time managing care of this patient today ____ minutes.
[2024-08-13 09:12] LABS: Glucose, Whole Blood 105 mg/dL (60-115)
--- NOTE | 2024-08-13 09:58 | W.PM.OPN ---
Operative Note Operative Note Date of Service: 08/13/24 Narrative: Procedure Description: EGD Indication: dysphagia Anesthesia: MAC FLEXIBLE TRANSORAL UPPER GASTROINTESTINAL ENDOSCOPY UPPER ENDOSCOPY Consent: Indications for the procedure and potential complications of bleeding, perforation, reaction to medications and missed diagnosis were discussed with the patient and informed consent was obtained. Instrument: Olympus GIF H 190 J mid size upper endoscope Monitoring: Vital signs and clinical assessment, continuous EKG monitoring, Pulse oximetry, Carbon Dioxide monitoring and blood pressure monitoring were done throughout the procedure. Procedure: The patient was placed in the left lateral decubitis position and pre-procedure medications were administered and a bite block was placed. The endoscope was inserted into the mouth and advanced under direct vision to the third part of duodenum. A careful inspection was made as the upper endoscope was withdrawn including a retroflexed examination of the proximal stomach; Findings and interventions are described below. Findings: Larynx:normal Esophagus: GE junction at 40? cm, diaphragm hiatus at 40 cm, slightyl irregular z line, bx taken from GEJ, distal and proximal esophagus--balloon dilation done to 20 mm at UES and LES, no tears seen Stomach: mild erythema and granularity, bx taken with few fundic gland polyps seen. Grade 2 flap valve on retroflexed examination of the cardia. Duodenum: normal Intervention: balloon dilation Impression/Findings: fundic gland polyps mild gastritis PLAN: cont with PPI rept dilation prn
[2024-08-13 10:05] VITALS: BP 101/61; PULSE 85; RESP 18; TEMP 36.3; O2SAT 94
[2024-08-13 10:20] VITALS: BP 114/73; PULSE 80; RESP 18; O2SAT 95
== END 2024-08-13 10:40 | disposition home or self-care (01) ==
PROVIDERS: PCP Internal Medicine; Visit Provider Internal Medicine Gastroenterology
PROC: 0DJ08ZZ Inspection of Upper Intestinal Tract, Via Natural or Artificial Opening Endoscopic (ICD-10-PCS; CPT 43235; principal; 2024-08-13 10:10)
DX: K31.7 Polyp of stomach and duodenum (principal); K29.60 Other gastritis without bleeding; K22.9 Disease of esophagus, unspecified; R13.10 Dysphagia, unspecified; K21.9 Gastro-esophageal reflux disease without esophagitis; R68.81 Early satiety; E11.9 Type 2 diabetes mellitus without complications; I11.0 Hypertensive heart disease with heart failure; I50.9 Heart failure, unspecified; E78.5 Hyperlipidemia, unspecified; J45.909 Unspecified asthma, uncomplicated; G47.33 Obstructive sleep apnea (adult) (pediatric); Z87.891 Personal history of nicotine dependence; Z79.899 Other long term (current) drug therapy; Z79.4 Long term (current) use of insulin; Z79.02 Long term (current) use of antithrombotics/antiplatelets
CPT/HCPCS: 43249; 43239; 82947; 88305; 88313; 88342; C1726; J2003; J2704; J3010

== ENCOUNTER → 2024-08-13 08:10 | Outpatient (BNV) | payer MEDICARE, MEDICAID, SELFPAY | PROVIDERS: PCP Internal Medicine; Visit Provider Internal Medicine Gastroenterology | DX: R13.10 Dysphagia, unspecified (principal); K31.7 Polyp of stomach and duodenum; K29.70 Gastritis, unspecified, without bleeding | CPT/HCPCS: 43239; 43249 ==

== ENCOUNTER 2024-08-25 11:29 | Outpatient (AMB) | payer MEDICARE, MEDICAID, SELFPAY ==
--- NOTE | 2024-08-25 11:45 | A.OFFVIS_ITS ---
Vital Signs 08/25/24 11:49 Height 6 ft 2 in Weight 238 lb BMI 30.6 Intake Visit Reasons: OV- Bilateral knee pain Intake Note: Elissa is a 59 year old male who presents today for a follow up of bilateral knee OA, last cortisone and Durolane injection on 03/03/2024. Patient reports injection provided him with relief, his pain returned about a month ago. He is requesting to repeat injections. He states his blood sugar level today is 90. Allergies Penicillins [PENICILLINS] Allergy (Unknown, Verified 08/25/24 11:49) RASH lactose Adverse Reaction (Intermediate, Uncoded 08/25/24 11:49) Abdominal Pain Medication List - Last Reconciled 08/25/24 by Luana Gama PA-C albuterol sulfate 90 mcg/actuation 2 puffs inhalation Q4H PRN alprazolam 1 tab PO BID PRN aspirin 81 mg PO DAILY atorvastatin 80 mg PO DAILY blood sugar diagnostic (FreeStyle Lite Strips) As directed brimonidine 0.2% 1 drp ophthalmic (eye) DAILY bupropion HCl XL 150 mg PO QAM bupropion HCl XL 300 mg PO DAILY carvedilol 3.125 mg PO BID cholecalciferol (vitamin D3) 25 mcg PO DAILY cyclobenzaprine 10 mg PO DAILY dorzolamide 2% 2 drps ophthalmic (eye) DAILY duloxetine 60 mg PO DAILY esomeprazole magnesium 20 mg PO BID finasteride (Proscar) 5 mg PO DAILY 90 days fluticasone furoate 100 mcg/actuation (Arnuity Ellipta) 1 inh inhalation DAILY fluticasone propionate 50 mcg/actuation 1 spray intranasal BID glipizide 5 mg PO BID hydrocortisone 2.5% (Procto-Med HC) 1 appl ND BID-QID PRN ibuprofen 800 mg PO Q8H PRN 30 days ibuprofen 800 mg PO Q8H PRN 30 days insulin glargine U-300 conc (Toujeo Max U-300 SoloStar) 70 units subcut DAILY isosorbide mononitrate ER 60 mg PO DAILY ketotifen fumarate 0.025%(0.035%) 1 drp ophthalmic (eye) BID latanoprost 0.005% 1 drp ophthalmic (eye) BEDTIME levocetirizine 5 mg PO DAILY lidocaine 4% 1 appl topical BID PRN linaclotide (Linzess) 290 mcg PO DAILY PRN magnesium oxide 400 mg PO DAILY metformin ER 750 mg PO DAILY methadone 10 mg PO TID PRN metoclopramide HCl 5 mg PO DAILY montelukast (Singulair) 10 mg PO DAILY multivitamin with folic acid 400 mcg (Tab-A-Kelsie) 1 tab PO DAILY naloxone 4 mg/actuation (Narcan) 1 spray intranasal DAILY naproxen 500 mg PO BID PRN netarsudil-latanoprost 0.02-0.005 % (Rocklatan) 1 drp ophthalmic (eye) DAILY ondansetron HCl 4 mg PO Q8H PRN pen needle, diabetic (UltiCare Pen Needle) As directed pen needle, diabetic (Comfort EZ Pen [place]on) As directed pen needle, diabetic, safety (True Comfort Safety Pen Needle) As directed prazosin 5 mg PO DAILY prednisolone acetate 1% 1 drp ophthalmic (eye) DAILY sacubitril-valsartan 49-51 mg (Entresto) 1 tab PO BID spironolactone 25 mg PO DAILY tamsulosin 0.4 mg PO DAILY testosterone enanthate 150 mg IM Q2W tirzepatide (Mounjaro) 15 mg subcut QWEEK tizanidine 4 mg PO TID PRN zolpidem 10 mg PO BEDTIME PRN HPI HPI OV- Bilateral knee pain: Details: 59-year-old gentleman returns to the office today for bilateral knee pain. Previous injections have been helpful and allow him to perform activities with better pain management. No concerns today. [facility] Medical History (Updated 08/25/24 @ 13:01 by Luana Gama PA-C) Diverticulosis Osteoarthritis IBS (irritable bowel syndrome) Hyperlipidemia CAD (coronary artery disease) Nonischemic cardiomyopathy CHF (congestive heart failure) Sleep apnea Obesity (BMI 30.0-34.9) Left flank discomfort Upper abdominal pain GERD (gastroesophageal reflux disease) Elevated cholesterol HTN (hypertension) Constipation by delayed colonic transit Bleeding hemorrhoids Diabetes mellitus Asthma Surgical History History of dacryocystorhinostomy H/O foot surgery History of esophagogastroduodenoscopy (EGD) History of tonsillectomy History of sinus surgery History of neck surgery History of carpal tunnel release History of release of tendon History of umbilical hernia repair History of colonoscopy Family History Mother History of colon cancer Brother History of liver cancer Maternal Aunt History of colon cancer Father No problems noted. 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 Tenderness along the medial and lateral joint line. Full ROM with crepitus. Negative Pearl?s. No ligamentous laxity. NVI. Office Procedures AMB Joint Injection/Aspiration Joint Injection/Aspiration Primary Site: right knee Secondary Site: left knee Prep: site was prepped using aseptic technique, ethochloride spray was applied and injection warnings given Injected: 40 mg of, DepoMedrol, with 8 mL of, 1% plain lidocaine and in the joint Approach Used: anterolateral Procedure: The patient tolerated the procedure well and there was some relief with the local anesthesia Coding 76605 - Glenohumeral/Tronchanteric Bursa/Intraarticular Procedure code (CPT) selection complete Assessment & Plan Assessment & Plan (1) Osteoarthritis of knees, bilateral: Code(s): M17.0 - Bilateral primary osteoarthritis of knee Category: Medical Plan: We discussed options today, which include steroid injection. The patient did consent to move forward with bilat knee injection, which was tolerated well.? I recommended rest, ice and elevation and OTC antiinflammatories prn for discomfort. If symptoms persist over the next 6-8 weeks, they will contact our office, otherwise, prn We also discussed their diabetes and the effect the steroid can have on thier blood glucose levels; therefore, they will continue to monitor these very closely over the next 72 hours Medications: New ibuprofen 800 mg PO Q8H PRN 90 tabs 3RF pain 30 days Coding Level of Care Code Est Pt Level 3 (11256) Complex EM visit Add On G2211 Diagnoses Osteoarthritis of knees, bilateral M17.0 CPT Codes Coding - Joint 7: 97273 - Glenohumeral/Tronchanteric Bursa/Intraarticular ([id number])
[2024-08-25 11:49] VITALS: BMI 30.6
--- OUTSIDE RECORDS SUMMARY | 2024-08-25 12:19 | XMS_ITS | Encounter Summary ---
Author Organization [facility] Address [address] [place] [address] Care Team Providers Care Mattress Filling Machine Tender Name Role Phone Vamshi Man MD Primary Care Provider [phone] Encounter Details Date Type Department Care Team (Late st Contact Info) Description 08/22/2024 Telephone [facility] - [facility] [address] [place] [address] Gabbie Roca NP [address] [place] [address] Social History Tobacco Use Types Packs/Day Years [...] AM EST documented as of this encounter Progress Notes * Gabbie Roca NP - 08/22/2024 4:09 PM EDT August 21 134 in the afternoon, 3.7-second pause -nonconducted P waves suggestive of complete heart block, followed by a probable escape beat and then a 1-1/2-second pause with resumption of sinus rhythm. Spoke with Elissa - cannot recall correlating symptoms. I asked that he hold Carvedilol for now and that with any significant lightheadedness over the weekend that he present to the ED We will continue to monitor, I will send a message to Dr. Griffin, question move forward with permanent pacemaker implantation. No previously documented left bundle branch block, but in the setting HFrEF and probable 100% ventricular pacing, plan for left bundle branch area pacing Most recent echocardiogram 2022 EF 45 to 50% Dr Griffin/Dr Campa documented in this encounter Plan of Treatment Upcoming Encounters Date Type Department Care Team (Late st Contact Info) Description 08/28/2024 9:45 AM EDT Office Visit Orthopedic Surgery - [place] [address] [facility] [address] [place] [phone] Cheng Rea DPM 175 [facility] 250 [place] [address] 09/10/2024 8:50 AM EDT Office Visit [facility] - [address] [place] [address] Manuel Aldrich MD [address] [place] [address] [address] [place] [address] 12/08/2024 9:10 AM EDT Office Visit Gastroenterology - [place] [address] [facility] [address] [place] [phone] Idalia Sandoval PA 175 [facility] 200 [place] [address] documented as of this encounter Visit Diagnoses Not on filedocumented in this encounter Care Teams Mattress Filling Machine Tender Relationship Specialty Start Date End Date Vamshi Man MD [address] [place] [address] PCP - General 10/06/10 documented as of this encounter
--- OUTSIDE RECORDS SUMMARY | 2024-08-25 12:19 | XMS_ITS | Clinical Summary ---
Author Organization [facility] Address [address] [place] [address] Care Team Providers Care Hat Blocking Operator Name Role Phone Vamshi Man MD Primary Care Provider [phone] Allergies Active Allergy Reactions Criticality Noted Date [...] age to complete this topic Care Teams Hat Blocking Operator Relationship Specialty Start Date End Date Vamshi Man MD [address] [place] [address] PCP - General Internal Medicine 05/02/23
--- OUTSIDE RECORDS SUMMARY | 2024-08-25 12:19 | XMS_ITS | Encounter Summary ---
Author Organization [facility] Address [address] [place] [address] Care Team Providers Care Bacon Slicer Name Role Phone Vamshi Man MD Primary Care Provider Encounter Details Date Type Department Care Team (Late Contact Info) Description 08/22/2024 4:25 PM EDT Ancillary Procedure [facility] - [facility] [address] [facility] [address] [place] [address] Arrived Social History Tobacco Use [...] AM EDT Office Visit Orthopedic Surgery - [place] [address] [facility] [address] [place] [phone] Cheng Rea, DPM [address] [address] 09/10/2024 8:50 AM EDT Office Visit [facility] - [facility] [address] [place] [phone] Manuel Aldrich MD [address] [place] [address] [place] [address] 12/08/2024 9:10 AM EDT Office Visit Gastroenterology - [place] [address] [place] [phone] Idalia Sandoval PA [address] [place] [address] documented as of this encounter Procedures Procedure Name Priority Date/Time Associated Diagnosis Comments CARDIAC DEVICE CHECK- REMOTE- MURJ Routine 08/22/2024 4:20 PM EDT documented in this encounter Results * Cardiac device check - Remote- MURJ (08/22/2024 4:20 PM EDT) Date Time Interrogation Session [id number] CV DEVICE CHECK Type Interrogation Session Remote Device Initiated CV DEVICE CHECK Implantable Pulse Generator Clinical Care Leader BSX CV DEVICE CHECK Implantable Pulse Generator Type ILR CV DEVICE CHECK Implantable Pulse Generator Model [id number] CV DEVICE CHECK Implantable Pulse Generator Serial Number [id number] CV DEVICE CHECK Implantable Pulse Generator Implant Date 20240516 CV DEVICE CHECK Battery Status Beginning of Service CV DEVICE CHECK Atrial Tachy Statistic AT/AF [place] Percent 0.00 CV DEVICE CHECK Date of Service 2024-08-27 CV DEVICE CHECK Anatomical Region Laterality Modality Device Interroga tion 08/22/2024 12:3 2 AM EDT Impressions 08/22/2024 4:16 PM EDT Pause * Stored EGMs are consistent with or suggestive of non conductive P waves * Total episodes: 1 * Longest episode: 3.7 seconds * Rhythm before episode: Sinus * Rhythm after episode: Anthony 2 beats Additional Notes: *Implanted for syncope Narrative Procedure Note Gabbie Roca, LINE RIDER - 08/22/2024 IMPRESSION: Pause * Stored EGMs are consistent with or suggestive of non conductive Pwaves * Total episodes: 1 * Longest episode: 3.7 seconds * Rhythm before episode: Sinus * Rhythm after episode: Anthony 2 beats Additional Notes: *Implanted for syncope Gabbie Roca NP CV IMPLANTABLE CARDIAC DEVIC E PROCEDURES Final Result documented in this encounter Visit Diagnoses Not on filedocumented in this encounter Care Teams Bacon Slicer Relationship Specialty Start Date End Date Vamshi Man MD [address] [place] [address] PCP - General 10/06/10 documented as of this encounter
--- OUTSIDE RECORDS SUMMARY | 2024-08-25 12:19 | XMS_ITS | Clinical Summary ---
Author Organization [facility] Address [address] [place] [address] Phone Care Team Providers Care Acute Dialysis Nurse Name Role Phone Vamshi Man MD Primary Care Provider [phone] Allergies Active Allergy Reactions Criticality Noted Date [...] 1 tablet (10 mg total) by mouth. 009 Active metformin HCl (METFORMIN ORAL) Take 750 tablets by mouth 1 (one) time each day. Active ondansetron (ZOFRAN) 4 mg tablet Take 1 tablet (4 mg total) by mouth every 8 (eight) hours if needed for nausea. 30 tablet 3 025 Active Toujeo Max U-300 SoloStar 300 unit/mL (3 mL) CONCENTRATED injection pen Inject 45 Units under the skin at bedtime. 024 Active Mounjaro 15 mg/0.5 mL injection Inject 50 mg under the skin every 7 (seven) days. 025 Active pantoprazole (PROTONIX) 40 mg EC tablet TAKE 1 TABLET BY MOUTH 2 TIMES DAILY (BEFORE MEALS). 180 tablet 3 Active Linzess 290 mcg capsule TAKE 1 CAPSULE BY MOUTH DAILY. 90 capsule 1 025 Active sacubitriL-vals tabatha (Entresto) 49-51 mg per tablet TAKE 1 TABLET BY MOUTH TWICE DAILY 180 tablet 1 025 Active atorvastatin (LIPITOR) 80 mg tablet TAKE 1 TABLET BY MOUTH DAILY 90 tablet 1 025 Active carvediloL (COREG) 3.125 mg tablet Take 1 tablet (3.125 mg total) by mouth 2 (two) times a day with meals. Dose has been reduced from 6.25mg bid to 3.125mg bid pt aware 180 tablet 1 025 Active spironolactone (ALDACTONE) 25 mg tabletIndicatio ns:Chronic HFrEF (heart failure with reduced ejection fraction) (CMS/HCC V24, CMS/HCC V28) Take 1 tablet (25 mg total) by mouth 1 (one) time each day. 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 Do not crush or chew. 90 tablet 2 025 Active sacubitriL-vals tabatha (ENTRESTO) 49-51 mg per tablet Take 1 tablet by mouth 2 (two) times a day. 2024 Discontinued atorvastatin (LIPITOR) 80 mg tablet Take 1 tablet (80 mg total) by mouth 1 (one) time each day. for 360 days 024 2024 Discontinued carvediloL (COREG) 3.125 mg tablet Take 1 tablet (3.125 mg total) by mouth 2 (two) times a day with meals. Dose has been reduced from 6.25mg bid to 3.125mg bid pt aware 180 tablet 1 024 2024 Discontinued(R eorder) spironolactone (ALDACTONE) 25 mg tabletIndicatio ns:Chronic HFrEF (heart failure with reduced ejection fraction) (CMS/HCC V24, CMS/HCC V28) Take 1 tablet (25 mg total) by mouth 1 (one) time each day. 90 each 1 024 2024 Discontinued(R eorder) isosorbide mononitrate (IMDUR) 60 mg 24 hr tabletIndicatio ns:Coronary artery disease involving [place] coronary artery of [place] heart with other form of angina pectoris (CMS/HCC V24) Take 1 tablet (60 mg total) by mouth 1 (one) time each day. Do not crush or chew. 30 each 11 025 2024 Discontinued(R eorder) Active Problems Problem Noted Date Diagnosed Date Palpitations 03/28/2024 Assessment & Plan (03/28/2024 1:13 PM EST): The patient continues to have episodes of palpitations. He recently completed a 30-day ambulatory accounting support specialist. He had 38 symptomatic events during the [...] actual syncope. During a recent 30-day ambulatory accounting support specialist, the patient was found to have a [...] near syncope in the past. 30-day ambulatory accounting support specialist showed instances of high-grade AV block with a pause of up to 3 seconds. As a result of this, his carvedilol was decreased from 6.25 mg orally twice a day down to 3.5 mg orally twice a day. After the changing the dose of the beta-sabiha, no further episodes of high-grade AV block or sinus pauses were noted on the ambulatory accounting support specialist. Of note, there was no evidence of [...] mg orally daily Candidate for ICD or E COMMERCE WEB DEVELOPER: Not a candidate due to the [...] immunofixation study. The patient was evaluated by [facility] in May 2023 due to his [...] orally daily ? Candidate for ICD or E COMMERCE WEB DEVELOPER: Not a candidate due to the [...] immunofixation study. The patient was evaluated by [facility] in May 2023 due to his elevated serum kappa lambda ratio and they determined that the patient did not have any plasma cell disorder. 4. 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 The patient was referred to the [facility] genetic medicine program. Last documented LVEF: [...] SGLT2 inhibitor: None Candidate for ICD or E COMMERCE WEB DEVELOPER: Not a candidate due to the [...] was referred for an evaluation with the [place] [facility] service who determined that the patient did not have a plasma cell disorder and therefore does not have AL amyloidosis. The patient's brother has a history of a cardiomyopathy and cardiac arrhythmias and is currently hospitalized in [place] awaiting a cardiac transplant. The patient underwent genetic testing ([employer] comprehensive cardiomyopathy panel) and the test showed that he is a carrier of 1 pathogenic variant in the gene [id number] which is associated with an autosomal recessive primary carnitine deficiency. We refer the patient for an evaluation with the [facility] genetics program but the patient states [...] immunofixation study. The patient was evaluated by [facility] in May 2023 due to his elevated serum kappa lambda ratio and they determined that the patient did not have any plasma cell disorder. 4. 8. 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 The patient was referred to the [facility] genetic medicine program. Last documented LVEF: [...] mg orally daily Candidate for ICD or E COMMERCE WEB DEVELOPER: Not a candidate due to the [...] 10/31/2017 Diabetes mellitus type 2, un complicated (CMS/[facility] V24, [facility] V28) 04/05/2017 Chronic constipation 02/02/2017 Renal lesion [...] CT scan is scheduled for 06/20/2023 at [facility]. In the meantime, the patient will [...] Encounters Date Type Department Care Team Description 08/22/2024 4:25 PM EDT Ancillary Procedure [facility] Cardiology [facility] [address] [place] [address] Arrived 08/22/2024 Telephone [facility] Cardiology [facility] [address] [place] [address] Gabbie Roca NP 08/18/2024 Telephone [facility] [address] [facility] [facility] [address] [place] [phone] Manuel Aldrich MD Med Refill 07/22/2024 12:25 PM EDT Ancillary Procedure [facility] [address] [facility] [address] [place] [address] 07/14/2024 8:41 AM EDT - 07/14/2024 11:59 PM EDT Hospital Encounter [facility] Xray [address] [place] [phone] Dysphagia, unspecified type Discharge Disposition: Home or Self Care 06/26/2024 10:45 AM EDT Office Visit Orthopedic Surgery [facility] [address] [facility] [address] [place] [phone] Cheng Rea, DPM Closed displaced fracture of cuboid bone of right foot with malunion (Primary Dx); Follow-up exam; Tendinitis of right ankle; Plantar fascial fibromatosis 06/18/2024 4:35 PM EST Ancillary Procedure [facility] [address] [place] [address] 06/12/2024 Telephone [facility] [address] [facility] [address] [place] [address] Musa Griffin MD Procedure (ILR Removal) 06/10/2024 11:05 AM EST Office Visit [facility] [facility] [address] [place] [phone] Musa Griffin MD Irritation symptom of skin (Primary Dx); Implantable loop recorder present 06/10/2024 Telephone [facility] [address] [facility] [address] [place] [phone] Manuel Aldrich MD 05/29/2024 10:45 AM EST Office Visit Orthopedic Surgery [facility] [address] [place] [phone] Cheng Rea, DPM Closed displaced fracture of cuboid bone of right foot with malunion (Primary Dx); Tendinitis of right ankle; Plantar fascial fibromatosis from Last 3 Months Immunizations Name Administration Dates Next Due H1N1 Inj 02/16/2009 Hepatitis A Adult (Havrix; V aqta) 19yo and older 06/02/2004,02/21/2003 Hepatitis B (Scfnwhf-L-Ldfkx , Recombivax HB-Adult) 19yo and older 06/04/2003,12/19/2002,11/18/2002 [...] DX:Chronic constipation Diabetes mellitus type 2, uncomplicated (CMS/HCC V24, CMS/HCC V28) 04/05/2017 DX:Diabetes mellitus type 2, uncomplicated ([facility]) Dysphagia 06/21/2016 DX:Dysphagia Esophageal reflux 11/19/2017 [...] CMS/HCC V24, CMS/HCC V28) DX:Gastroparesis diabeticoru m ([facility]) Hx of syphilis DX:Hx of syphili [...] AM EDT Office Visit Orthopedic Surgery - [place] [address] [facility] [address] [place] [phone] Cheng Rea DPM [address] [facility] [address] [place] [address] 09/10/2024 8:50 AM EDT Office Visit [facility] [address] [place] [phone] KatherynManuel Jenkins MD [address] [place] [address] [address] [place] [address] 12/08/2024 9:10 AM EDT Office Visit Gastroenterology [facility] [address] [facility] [address] [place] [phone] Idalia Sandoval PA 175 [facility] [address] [place] [address] Health Maintenance Due Date Last Done Comments Diabetes: Annual Foot Exam 1975 Diabetes: Annual Retina Eye Exam 1975 Cholesterol Screening (Lipid Panel) 03/25/2022 Depression Screening 03/25/2022 HIV Screening 03/25/2022 Hepatitis C Screening 03/25/2022 Medicare Annual Wellness Visit 03/25/2022 Social Influencers of Health Screening 03/25/2022 Diabetes: Blood Sugar Control Test (HGBA1C) 11/22/2022 05/25/2022 COVID-19 Vaccine (7 - Pfizer risk 2024-25 season) 2024 05/06/2024, 01/30/2023, 11/11/2021, Additional history [...] this topic Medical Devices Implanted Type Area Home Security Alarm Installer Device Identifier Shelf Expiration Date Model / Serial / Lot Monitor Cardiac Insert Lux Dx Ii+ - [id number] - [id number] Implanted:Qty: 1 on 05/16/2024 by Musa Griffin MD at [facility] Cardiac Loop Recorder Left: Chest [employer] MGMT [id number] 09/12/2025 [id number] / [id number] / Procedures Procedure Name Priority Date/Time Associated Diagnosis Comments CARDIAC DEVICE CHECK- REMOTE- MURJ Routine 08/22/2024 4:20 PM EDT CARDIAC DEVICE CHECK- REMOTE- MURJ Routine 07/22/2024 [...] 05/29/2024 10:45 AM EST Plantar fascial fibromatosis BASIC METABOLIC PANEL Routine 05/12/2024 9:17 AM EST Syncope HM COLONOSCOPY Routine 02/12/2020 from Last 3 Months or Most Recently Relevant to Health Maintenance Results * Cardiac device check - Remote- MURJ (08/22/2024 4:20 PM EDT) Only the most recent of3 resultswithin the time period is included. Date Time Interrogation Session [id number] CV DEVICE CHECK Type Interrogation Session Remote Device Initiated CV DEVICE CHECK Implantable Pulse Generator Home Security Alarm Installer BSX CV DEVICE CHECK Implantable Pulse Generator Type ILR CV DEVICE CHECK Implantable Pulse Generator Model M312 CV DEVICE CHECK Implantable Pulse Generator Serial Number [id number] CV DEVICE CHECK Implantable Pulse Generator Implant Date [id number] CV DEVICE CHECK Battery Status Beginning of Service CV DEVICE CHECK Atrial Tachy Statistic AT/AF [place] Percent 0.00 CV DEVICE CHECK Date of [...] for syncope Narrative Procedure Note Gabbie Roca, MOLLY - 08/22/2024 IMPRESSION: Pause * Stored EGMs are consistent with or suggestive of non conductive Pwaves * Total episodes: 1 * Longest episode: 3.7 seconds * Rhythm before episode: Sinus * Rhythm after episode: Anthony 2 beats Additional Notes: *Implanted for syncope Gabbie Roca NP CV IMPLANTABLE CARDIAC DEVIC E PROCEDURES Final Result * XR Barium Swallow [...] Signed Date: 07/14/2024 11:05 ET Workstation ID: [id number] Transcribed By: Self Edit Transcribed Date: 07/14/2024 10:38 ET Resident/PA/PHOTO ENGRAVER: Angela Cabrera Narrative 07/14/2024 11:05 AM EDT [...] Signed Date: 07/14/2024 11:05 ET Workstation ID: [id number] Transcribed By: Self Edit Transcribed Date: 07/14/2024 10:38 ET Resident/PA/PHOTO ENGRAVER: Angela Cabrera us Vamshi Man MD IMG [...] IN CLINIC/BEDSIDE ORDERAB LES Final Result * Basic metabolic panel (05/12/2024 9:17 AM EST) Sodium 135 133 - 145 mmol/L LAB CHEMISTRY METHOD 05/12/2024 3:18 PM [facility] Potassium 4.5 3.5 - 5.5 mmol/L LAB CHEMISTRY METHOD 05/12/2024 3:18 PM [facility] Chloride 102 96 - 110 mmol/L LAB CHEMISTRY METHOD 05/12/2024 3:18 PM [facility] CO2 25 21 - 32 mmol/L LAB CHEMISTRY METHOD 05/12/2024 3:18 PM [facility] Anion Gap 8 3 - 11 LAB CHEMISTRY METHOD 05/12/2024 3:18 PM [facility] Glucose 84 70 - 100 mg/dL LAB CHEMISTRY METHOD 05/12/2024 3:18 PM [facility] BUN 16 5 - 25 mg/dL LAB CHEMISTRY METHOD 05/12/2024 3:18 PM [facility] Creatinine 0.99 0.70 - 1.30 mg/dL LAB CHEMISTRY METHOD 05/12/2024 3:18 PM [facility] eGFR 88 >=60 mL/min/1. 73m2 LAB CHEMISTRY METHOD 05/12/2024 3:18 PM [facility] Comment:Calculation based on the??Chronic Kidney Disease Epidemiology Collaboration (CKD-EPI) equation refit??without adjustment for race. BUN/Creatinine Ratio 16.2 LAB CHEMISTRY METHOD 05/12/2024 3:18 PM [facility] Calcium 9.4 8.5 - 10.5 mg/dL LAB CHEMISTRY METHOD 05/12/2024 3:18 PM [facility] Blood Venous blood specimen / Unknown Venipuncture / Unknown 05/12/2024 9:17 AM EST 05/12/2024 9:17 AM EST Musa Griffin MD LAB BLOOD ORDERABLES Final Result [facility] [address] [place] [address], * Colonoscopy (02/12/2020) Colonoscopy no interpretation , abstracted Anatomical Region Laterality Modality Other us Historical Provider HEALTH MAINTENANCE Final Result from Last 3 Months or Most Recently Relevant to Health Maintenance Insurance MEDICA[place] - [place] MEDICARE Advance Directives Documents on File Type Date Recorded 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
--- OUTSIDE RECORDS SUMMARY | 2024-08-25 12:19 | XMS_ITS | Clinical Summary ---
Author Organization [facility] Address [address] [facility] [address] [place] [address] Phone Care Team Providers Care Procurement Technician Name Role Phone Vamshi Man MD Primary Care Provider [phone] Allergies Active Allergy Reactions Criticality Noted Date [...] (one) time each day in the evening 1 Active cholecalciferol (VITAMIN D-3) 25 MCG (1000 UT) tablet Take 1,000 Units by mouth 1 (one) time each day 1 Active ciprofloxacin (CILOXAN) 0.3 % ophthalmic solution Administer 1 drop into both eyes 1 (one) time each day 1 Active fluticasone (FLONASE) 50 MCG/ACT nasal spray Administer 1 spray into each nostril 1 (one) time each day 1 Active Flovent HFA 110 MCG/ACT inhaler Inhale 1 puff 1 (one) time each day 1 Active latanoprost (XALATAN) 0.005 % ophthalmic solution Administer 1 drop into both eyes 1 (one) time each day Active Linzess 290 MCG capsule Take 1 tablet by mouth 1 (one) time each day 1 Active METFORMIN HCL PO Take 750 tablets [...] by mouth 1 (one) time each day 1 Active pantoprazole (PROTONIX) 40 MG EC tablet Take 1 tablet by mouth 2 (two) times a day Active tamsulosin (FLOMAX) 0.4 MG 24 hr capsule Take 1 capsule by mouth 1 (one) time each day 1 Active testosterone enanthate (DELATESTRYL) 200 MG/ML injection Inject 1 mL into the shoulder, thigh, or buttocks 1 (one) time daily 30 minutes after same meal 1 Active tiZANidine (ZANAFLEX) 4 MG tablet Take 1 tablet by mouth 1 (one) time each day 1 Active zolpidem (AMBIEN) 10 MG tablet Take 1 tablet by mouth 1 (one) time each day Active Insulin Glargine, 2 Unit Dial, (Toujeo Max SoloStar) 300 UNIT/ML solution pen-injector Inject under the skin Active spironolactone (ALDACTONE) 25 MG tablet Take 25 mg by mouth in the morning. 3 Active glipiZIDE (Glucotrol) 5 MG tabletIndication s:Type 2 diabetes mellitus with diabetic chronic kidney disease (HCC) Take 1 tablet (5 mg total) by mouth in the morning and 1 tablet (5 mg total) in the evening. Take before meals. 180 tablet 3 4 12/12/19 25 Active carvedilol (COREG) 3.125 MG tablet Take 3.125 mg by mouth in the morning and 3.125 mg in the evening. Take with meals. Active Tirzepatide (Mounjaro) 15 MG/0.5ML solution auto-injector Inject under the skin Active sacubitril-valsa rtan (Entresto) 49-51 MG per tablet Take 1 tablet by mouth in the morning and 1 tablet in the evening. 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 Hypertriglyceridemia 11/23/2021 Impotence of organic origin 11/23/2021 Impingement syndrome of shoulder region 11/24/19 22 Overview (11/23/2021): Arthroscopic subacromial decompression with debridement of undersurface partial cuff tear, & distal clavicle excision AC joint arthritis 2008 Lateral epicondylitis 11/23/2021 Overview (11/23/2021): s/p Modified Marbin procedure, repair of conjoined [...] today Switched from Losartan to Entresto by Software Engineering Specialist recently Renal osteodystrophy 11/23/2021 Diabetes mellitus 01/06/2021 [...] Office Visit [facility] [address] [place] [phone] Caprice Mary ARNP Chronic kidney disease, stage 2 (mild) (Primary Dx); Hypertension; Vitamin D deficiency, not otherwise specified 07/24/2024 Orders Only [facility] [address] [address] Caprice Mary ARNP 07/16/2024 Orders Only [facility] [address] [address] Caprice Mary ARNP from Last 3 Months [...] Office Visit [facility] [address] [address] Caprice Mary ARNP [address] [address] Health Maintenance Due Date Last [...] Foot Exam 05/17/2020 Diabetes: Hemoglobin A1C 10/15/2024 04 025, 05/25/2022, 09/08/2021, Additional history exists Influenza [...] D 25 Hydroxy (07/24/2024 10:12 AM EDT) [facility] Signature Vitamin D, 25-OH, Total 41.0 30.0 - 100.0 ng/mL [facility] Comment: Vitamin D deficiency has been defined by the [place] of Medicine and an Endocrine Society practice guideline as a level of serum 25-OH vitamin D less than 20 ng/mL (1,2). The Endocrine Society went on to further define vitamin D insufficiency as a level between 21 and 29 ng/mL (2). 1. IOM ([place] of Medicine). 2010. Dietary reference ?? intakes for calcium and D. [place]: The ?? National Academies Press. 2. Nenita MF, Jeremie SPRINGER, Ronaldo DOSS, et al. ?? Evaluation, treatment, and prevention of vitamin D ?? deficiency: an Endocrine Society clinical practice ?? guideline. JCEM. 2010; 96(7):1911-30. 07/24/2024 10:1 2 AM EDT 07/24/2024 Caprice [facility] LAB BLOOD ORDERABLES Final Result [facility] [address] [place] [address] * (ABNORMAL) Hemoglobin A1C (07/16/2024 9:59 AM EDT) Hemoglobin A1C 6.0(H) %Hb [facility] Comment: Reference Range: [place] Diabetes Association (ADA) Guidelines: <5.7: Decreased risk for diabetes 5.7 - 6.4: Increased risk for diabetes >6.4: Ongoing Hyperglycemia of any cause <7.0: Glycemic control for adults with diabetes Estimated Average Glucose 126 mg/dL [facility] 07/16/2024 9:59 AM EDT 07/16/2024 [facility] Final Result [email or web address] [address] [place] [phone] * CBC Diff Ambiguous Default (07/16/2024 9:59 AM EDT) WBC 9.0 3.4 - 10.8 x10E3/uL [facility] RBC 4.66 4.14 - 5.80 x10E6/uL [facility] Hemoglobin 13.3 13.0 - 17.7 g/dL [facility] Hematocrit 40.8 37.5 - 51.0 % [facility] MCV 88 79 - 97 fL [facility] MCH 28.5 26.6 - 33.0 pg [facility] MCHC 32.6 31.5 - 35.7 g/dL [facility] RDW 13.4 11.6 - 15.4 % [facility] Platelets 235 150 - 450 x10E3/uL [facility] Neutrophils Relative 60 Not Estab. % [facility] Lymphocytes Relative 29 Not Estab. % [facility] Monocytes 9 Not Estab. % [facility] Eosinophils Relative 1 Not Estab. % [facility] Basophils Relative 1 Not Estab. % [facility] Neutrophils Absolute 5.4 1.4 - 7.0 x10E3/uL [facility] Lymphocytes Absolute 2.6 0.7 - 3.1 x10E3/uL [facility] Monocytes Absolute 0.8 0.1 - 0.9 x10E3/uL [facility] Eosinophils Absolute 0.1 0.0 - 0.4 x10E3/uL [facility] Basophils Absolute 0.1 0.0 - 0.2 x10E3/uL [facility] Immature Granulocytes 0 Not Estab. % [facility] Immature Grans (Absolute) 0.0 0.0 - 0.1 x10E3/uL [facility] Comment: A hand-written panel/profile was received from your office. In accordance with the [facility] Ambiguous Test Code Policy dated October 2002, we have assigned CBC with Differential/Platelet, Test Code #518451 to this request. If this is not the testing you wished to receive on this specimen, please contact the [facility] Client Inquiry/ Technical Services Department to clarify the test order. We appreciate your business. 07/16/2024 9:59 AM EDT 07/16/[address] [facility] LAB BLOOD ORDERABLES Final Result Performing Organization Address [facility] de Phone Number [facility] [address] [place] [address] * Iron Panel (Fe, TIBC, TSAT) (07/16/2024 9:59 AM EDT) TIBC 335 250 - 450 ug/dL [facility] UIBC 258 111 - 343 ug/dL [facility] Iron 77 38 - 169 ug/dL [facility] Iron Saturation (TSat) 23 15 - 55 % [facility] 07/16/2024 9:59 AM EDT 07/16/2024 Caprice [facility] LAB BLOOD ORDERABLES Final Result Performing Organization Address [facility] de Phone Number [facility] [place] [address] [place] [address] * Urine Albumin / Creatinine Ratio (07/16/2024 9:59 AM EDT) Creatinine, Ur 132.3 Not Estab. mg/dL [facility] Albumin, Urine 6.8 Not Estab. ug/mL [facility] Albumin/Creatin ine Ratio 5 0 - 29 mg/g creat [facility] Comment: ? Normal: ?0 - ??29 ? Moderately increased: 30 - 300 ? Severely increased: ? >300 07/16/2024 9:59 AM EDT 07/16/2024 Caprice [facility] LAB URINE ORDERABLES Final Result Performing Organization Address City/[facility]/ZIP Co de Phone Number [facility] [place] [address] [place] [address] * Magnesium (07/16/2024 9:59 AM EDT) Magnesium 1.8 1.6 - 2.3 mg/dL [facility] 07/16/2024 9:59 AM EDT 07/16/2024 Cap[facility] LAB BLOOD ORDERABLES Final Result Performing Organization Address [facility] Co de Phone Number [facility] [address] [place] [address] * Ferritin (07/16/2024 9:59 AM EDT) Ferritin 73 30 - 400 ng/mL [facility] 07/16/2024 9:59 AM EDT 07/16/[address] [facility] LAB BLOOD ORDERABLES Final Result Performing Organization Address [facility] Co de Phone Number [facility] [place] [address] [place] [address] * (ABNORMAL) Renal Function Panel (07/16/2024 9:59 AM EDT) Glucose 83 70 - 99 mg/dL [facility] BUN 14 6 - 24 mg/dL [facility] Creatinine 1.07 0.76 - 1.27 mg/dL [facility] eGFR CKD-EPI CR 2020 80 >59 mL/min/1.7 3 [facility] BUN/Creatinine Ratio 13 9 - 20 [facility] Sodium 135 134 - 144 mmol/L [facility] Potassium 4.2 3.5 - 5.2 mmol/L [facility] Chloride 101 96 - 106 mmol/L [facility] Bicarbonate (CO2) 19(L) 20 - 29 mmol/L [facility] Calcium 9.1 8.7 - 10.2 mg/dL [facility] Albumin 4.6 3.8 - 4.9 g/dL [facility] Phosphorus 3.2 2.8 - 4.1 mg/dL [facility] 07/16/2024 9:59 AM EDT 07/16/2024 Caprice SMITH LAB BLOOD ORDERABLES Final Result [facility] [address] [place] [address] from Last 3 Months Insurance Medicare Medicaid [place] Medicare Medicaid [place] Care Teams Procurement Technician Relationship Specialty Start Date End Date Vamshi Man MD [address] [place] [address] PCP - General 04/26/20
--- OUTSIDE RECORDS SUMMARY | 2024-08-25 12:19 | XMS_ITS | Encounter Summary ---
Author Organization [facility] Address [address] [place] [address] Care Team Providers Care Respiratory Clinician Name Role Phone Vamshi Man MD Primary Care Provider Encounter Details Date Type Department Care Team (Late st Contact Info) Description 01/30/2024 2:30 PM EDT Hospital Encounter TH HISTORIC ENCOUNTERS EASTERN CONVERSION ONLY Kash Hammonds MD [address] [facility] [address] [place] [address] Social History Tobacco Use Types Packs/Day Years [...] AM EDT Office Visit [facility] - [place] [address] [facility] [address] [place] [address] Cheng Rea, DPFranco [address] [facility] [address] [place] [address] 09/10/2024 8:50 AM EDT Office Visit [facility] [address] [place] [address] Manuel Aldrich MD [address] [place] [address] [address] [place] [address] 12/08/2024 9:10 AM EDT Office Visit Gastroenterology - [place] [address] [facility] [address] [place] [phone] Idalia Sandoval PA [address] [facility] [address] [place] [address] documented as of this encounter Visit Diagnoses Not on filedocumented in this encounter Care Teams Respiratory Clinician Relationship Specialty Start Date End Date Vamshi Man MD [address] [place] [id number] PCP - General 10/06/10 documented as of this encounter
== END 2024-08-25 13:02 | disposition home or self-care (01) ==
LOC: HO.HOS 11:30
PROVIDERS: PCP Internal Medicine; Visit Provider Physician Assistant
DX: M17.0 Bilateral primary osteoarthritis of knee (principal)
CPT/HCPCS: 20610; 99213

== ENCOUNTER → 2024-08-25 11:29 | Outpatient (BNVA) | payer MEDICARE, MEDICAID, SELFPAY | PROVIDERS: PCP Internal Medicine; Visit Provider Physician Assistant | DX: M17.0 Bilateral primary osteoarthritis of knee (principal) | CPT/HCPCS: 20610; 99212; J1010; J2003 ==

== ENCOUNTER 2024-09-05 11:17 | Outpatient (REF) | payer MEDICARE, MEDICAID, SELFPAY ==
--- NOTE | ~2024-09-05 | CT_ITS ---
EXAMINATION: CT ABDOMEN AND PELVIS WITHOUT AND WITH CONTRAST CLINICAL INFORMATION: Unspecified abdominal pain. History of benign prostate hyperplasia. COMPARISON: February 02, 2023. TECHNIQUE: Multidetector volumetric imaging was performed of the abdomen and pelvis before and after the IV administration of 85 mL of Omnipaque 350 strength intravenous contrast. No reported immediate complications. Sagittal and coronal reformatted images were obtained on the technologist's workstation. This CT examination was performed using dose optimization techniques as appropriate, variously including the following: *Automated exposure control *Adjustment of mA and/or kV according to patient size (this includes techniques or standardized protocols for targeted exams where dose is matched to indication/reason for exam; i.e. extremities or head) *Use of iterative reconstruction technique. DLP: 1010 mGy centimeter. FINDINGS: Inadequate IV contrast enhancement of the intra-abdominal solid organs and vascular structures. LUNG BASES: No acute airspace disease or gross pulmonary nodules in the small [id number] LIVER, GALLBLADDER, AND BILIARY TREE: Liver measures 15 cm. No intrahepatic biliary ductal dilatation. No pericholecystic fluid collection or gallbladder wall thickening. No extrahepatic biliary ductal dilatation. PANCREAS: No peripancreatic fluid collection. No main pancreatic ductal dilatation. SPLEEN: 9 cm. ADRENAL GLANDS: No nodular lesions. KIDNEYS AND URETERS: Right kidney: No hydronephrosis. No nephrolithiasis. There is a 2.4 cm exophytic isodensity lesion in the midportion which measures 7 Hounsfield units without gross enhancement or septations or nodular component. There is a 3.8 cm lobulated fluid density and cortical medullary junction midportion. Subcentimeter cyst in the lower pole. Normal urinary excretion into the collecting system. Left kidney: No hydronephrosis. No nephrolithiasis. 0.7 cm exophytic fluid density in the midportion lower pole junction. Normal urinary excretion into the collecting system. BLADDER: Fluid-filled. GASTROINTESTINAL TRACT: Scattered diverticula throughout the left hemicolon. Abundant stool. No intestinal obstruction pattern. No ascites. No pneumatosis intestinalis. No concentric wall thickening. Appendix is normal. ABDOMINAL WALL: Status post mesh procedure placement in the perihilar umbilical region. Focal soft tissue contusions both sides beneath the skin of the mid abdomen likely subcutaneous injection related. LYMPH NODES: Prominent in the inguinal region. No lymphadenopathy in the retroperitoneum or mesenteric. VASCULAR: Abdominal aorta wall and iliac arteries without aneurysm or gross dissection. PELVIC VISCERA: Not enlarged. OSSEOUS STRUCTURES: Multilevel thoracolumbar spondylosis and incomplete ankylosis of the lower thoracic spine. 1 mm retrolisthesis L3-4 and L4-5. Vacuum phenomenon at L4-5. CT/CT abdomen pelvis wo/w IV con IMPRESSION: Bosniak type II cysts, right kidney. Bosniak type I cyst bilaterally. Fleischner guidelines were followed. Electronically signed by: Isael Hutson MD 09/05/2024 01:46 PM EDT
[2024-09-05] MEDS: iohexoL 350 MG/ML 100 ML INFUS..BTL IV (12:56)
== END 2024-09-05 11:18 | disposition home or self-care (01) ==
LOC: HO.CT 11:17
PROVIDERS: PCP Internal Medicine; Visit Provider Internal Medicine Nephrology
DX: R10.9 Unspecified abdominal pain (principal); R31.29 Other microscopic hematuria
CPT/HCPCS: 74178; Q9967

== ENCOUNTER → 2024-09-05 11:19 | Outpatient (BNV) | payer MEDICARE, MEDICAID, SELFPAY | PROVIDERS: PCP Internal Medicine; Visit Provider Radiology Diagnostic Radiology | DX: N28.1 Cyst of kidney, acquired (principal) | CPT/HCPCS: 74178 ==

== ENCOUNTER 2024-09-06 08:00 | Emergency (ER) | payer MEDICARE, MEDICAID, SELFPAY ==
[2024-09-06 08:21] VITALS: BP 107/80; PULSE 114; RESP 18; TEMP 36.6; O2SAT 97; BMI 30.4
[2024-09-06 08:57] LABS: Appearance Urine Clear; Color Urine Dark Yellow; Glucose Urine UA Negative (Negative); Leukocyte Esterase Urine Trace (Negative); Nitrite Urine Negative (Negative); UMIC TRIGGER UACC YES; Urine Blood Negative (Negative); Urine Ketones Trace mg/dL (Negative); Urine Protein Negative (Neg-Trace)
[2024-09-06 09:08] LABS: Bacteria Urine None Seen (None Seen); RBC Urine 0-2 /HPF (0-2); WBC Urine 0-5 /HPF (0-5)
--- NOTE | 2024-09-06 09:16 | ED_ITS ---
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 Patient states that over the last week he has had left lower back pain that radiates down to his left leg. Patient states that this feels like a sciatica flare and he usually uses steroids when this happens. Patient denies any dizziness, lightheadedness, abdominal pain, nausea, vomiting, fever, chills, blurry vision, double vision, loss of vision, chest pain, difficulty breathing, shortness of breath, night sweats, pain with urination, increased urinary frequency, increased urinary urgency, blood in his urine or stool, syncope or a near syncopal episode, recent trauma or falls, bowel incontinence, bladder incontinence, or any other complaints at this time. Onset (ago): week(s) (1) Location: back and left Radiation: distal Relieving factors: none Exacerbating factors: none Associated symptoms: denies other symptoms Treatments prior to arrival: none Related Data Home Medications ?Medication ?Instructions ?Recorded ?Confirmed methadone 10 mg tablet 10 mg PO TID PRN Pain 02/19/20 08/25/24 montelukast 10 mg tablet 10 mg PO DAILY 02/19/20 08/25/24 (Singulair) duloxetine 60 mg capsule,delayed 60 mg PO DAILY 09/10/20 08/25/24 release zolpidem 10 mg tablet 10 mg PO BEDTIME PRN insomnia 08/12/21 08/25/24 albuterol sulfate 90 mcg/actuation 2 puff inhalation Q4H PRN Wheezing 10/27/21 08/25/24 aerosol inhaler alprazolam 2 mg tablet 1 tab PO BID PRN anxiety 10/27/21 08/25/24 latanoprost 0.005 % eye drops 1 drp ophthalmic (eye) BEDTIME 10/27/21 08/25/24 multivitamin with folic acid 400 1 tab PO DAILY 10/27/21 08/25/24 mcg tablet (Tab-A-Kelsie) naloxone 4 mg/actuation nasal 1 spray intranasal DAILY 10/27/21 08/25/24 spray (Narcan) blood sugar diagnostic (FreeStyle #10 ea 07/10/22 08/25/24 Lite Strips) magnesium oxide 400 mg (241.3 mg 400 mg PO DAILY 07/10/22 08/25/24 magnesium) tablet metformin 750 mg tablet,extended 750 mg PO DAILY 07/10/22 08/25/24 release 24 hr pen needle, diabetic 33 gauge x #100 ea 07/10/22 08/25/2404/19 (Comfort EZ Pen [place]) testosterone enanthate 200 mg/mL 150 mg IM Q2W 07/10/22 08/25/24 intramuscular oil tizanidine 4 mg tablet 4 mg PO TID PRN Pain 07/10/22 08/25/24 linaclotide 290 mcg capsule 290 mcg PO DAILY PRN Constipation 12/11/22 08/25/24 (Linzess) pen needle, diabetic 31 gauge x #1,200 ea 12/11/22 08/25/24/16 (UltiCare Pen Needle) levocetirizine 5 mg tablet 5 mg PO DAILY 01/25/23 08/25/24 spironolactone 25 mg tablet 25 mg PO DAILY 01/25/23 08/25/24 sacubitril 49 mg-valsartan 51 mg 1 tab PO BID 04/11/23 08/25/24 tablet (Entresto) cholecalciferol (vitamin D3) 25 25 mcg PO DAILY 05/08/23 08/25/24 mcg (1,000 unit) capsule ketotifen fumarate 0.025 % (0.035 1 drp ophthalmic (eye) BID 05/08/23 08/25/24 %) eye drops insulin glargine U-300 conc 300 70 unit subcut DAILY 08/14/23 08/25/24 unit/mL (3 mL) subcutaneous pen (Toujeo Max U-300 SoloStar) cyclobenzaprine 5 mg tablet 10 mg PO DAILY 11/13/23 08/25/24 atorvastatin 80 mg tablet 80 mg PO DAILY 12/03/23 08/25/24 dorzolamide 2 % eye drops 2 drp ophthalmic (eye) DAILY 12/03/23 08/25/24 fluticasone furoate 100 1 inh inhalation DAILY 12/03/23 08/25/24 mcg/actuation blister powder for inhalation (Arnuity Ellipta) fluticasone propionate 50 1 spray intranasal BID 12/03/23 08/25/24 mcg/actuation nasal spray,suspension glipizide 5 mg tablet 5 mg PO BID 12/03/23 08/25/24 ondansetron HCl 4 mg tablet 4 mg PO Q8H PRN Nausea 12/03/23 08/25/24 prazosin 5 mg capsule 5 mg PO DAILY 12/03/23 08/25/24 bupropion HCl 150 mg 24 hr tablet, 150 mg PO QAM 02/13/24 08/25/24 extended release aspirin 81 mg tablet,delayed 81 mg PO DAILY 04/07/24 08/25/24 release brimonidine 0.2 % eye drops 1 drp ophthalmic (eye) DAILY 05/26/24 08/25/24 bupropion HCl 300 mg 24 hr tablet, 300 mg PO DAILY 05/26/24 08/25/24 extended release carvedilol 3.125 mg tablet 3.125 mg PO BID 05/26/24 08/25/24 isosorbide mononitrate 60 mg 60 mg PO DAILY 05/26/24 08/25/24 tablet,extended release 24 hr metoclopramide HCl 5 mg tablet 5 mg PO DAILY 05/26/24 08/25/24 naproxen 500 mg tablet 500 mg PO BID PRN Pain 05/26/24 08/25/24 netarsudil 0.02 %-latanoprost 1 drp ophthalmic (eye) DAILY 05/26/24 08/25/24 0.005 % eye drops ([facility]) pen needle, diabetic, safety 32 #100 ea 05/26/24 08/25/24 gauge x 5/32 (True Comfort Safety Pen Needle) prednisolone acetate 1 % eye 1 drp ophthalmic (eye) DAILY 05/26/24 08/25/24 drops,suspension tamsulosin 0.4 mg capsule 0.4 mg PO DAILY 05/26/24 08/25/24 tirzepatide 15 mg/0.5 mL 15 mg subcut QWEEK 05/26/24 08/25/24 subcutaneous pen injector (Tamela) Previous Rx's ?Medication ?Instructions ?Recorded hydrocortisone 2.5 % topical cream 1 appl SD BID-QID PRN hemorrhoids 07/09/20 with perineal applicator #30 grams (Procto-Med HC) ibuprofen 800 mg tablet 800 mg PO Q8H PRN pain 30 days #90 03/07/24 tabs finasteride 5 mg tablet (Proscar) 5 mg PO DAILY 90 days #90 tabs 04/07/24 lidocaine 4 % topical gel 1 appl topical BID PRN pain #30 05/09/24 grams esomeprazole magnesium 20 mg 20 mg PO BID #60 caps 05/26/24 capsule,delayed release ibuprofen 800 mg tablet 800 mg PO Q8H PRN pain 30 days #90 08/25/24 tabs cyclobenzaprine 5 mg tablet 5 mg PO TID PRN muscle spasm 7 09/06/24 days #21 tabs prednisone 20 mg tablet 20 mg PO DAILY 7 days #7 tabs 09/06/24 Allergies Allergy/AdvReac Type Severity Reaction Status Date / Time Penicillins [PENICILLINS] Allergy Unknown RASH Verified 09/06/24 08:24 lactose AdvReac Intermediate Abdominal Uncoded 09/06/24 08:24 Pain Review of Systems Constitutional: Constitutional: Reports no additional constitutional complaints, Denies chills, Denies fever(s) and Denies night sweats Eyes: Eyes: Reports no additional eye complaints, Denies blurry vision, Denies change in vision, Denies diplopia, Denies eye discharge, Denies loss of vision and Denies eye pain ENT: Denies dizziness Cardiovascular: Cardiovascular: Reports no additional cardiovascular complaints, Denies chest pain, Denies lightheadedness, Denies Loss of Consciousness and Denies dyspnea Respiratory: Respiratory: Reports no additional respiratory complaints and Denies dyspnea Gastrointestinal: Gastrointestinal: Reports no additional gastrointestinal complaints, Denies abdominal pain, Denies melena, Denies hematochezia, Denies change in bowel habits and Denies change in stool character Genitourinary: Genitourinary: Reports no additional male genitourinary complaints, Denies hematuria, Denies oliguria, Denies difficulty urinating, Denies dysuria, Denies urinary frequency, Denies urinary hesitancy, Denies urinary incontinence and Denies urinary urgency Musculoskeletal: Musculoskeletal: Reports no additional musculoskeletal complaints, Reports back pain, Denies numbness and Denies tingling Neurologic: Denies dizziness, Denies loss of vision, Denies numbness and Denies tingling Psychiatric: Psychiatric: Reports no additional psychiatric complaints Endocrine: Endocrine: Reports no additional endocrine complaints Hematologic/Lymphatic: Hematologic/Lymphatic: Reports no additional hematologic/lymphatic complaints Allergic/Immunologic: Allergic/Immunologic: Reports no additional allergic/immunologic complaints [facility] Past Medical History Attestation statement: The following information was validated with the patient. Source: old records reviewed and nursing notes reviewed Medical History Diverticulosis Osteoarthritis IBS (irritable bowel syndrome) Hyperlipidemia CAD (coronary artery disease) Nonischemic cardiomyopathy CHF (congestive heart failure) Sleep apnea Obesity (BMI 30.0-34.9) Left flank discomfort Upper abdominal pain GERD (gastroesophageal reflux disease) Elevated cholesterol HTN (hypertension) Constipation by delayed colonic transit Bleeding hemorrhoids Diabetes mellitus Asthma Surgical History History of dacryocystorhinostomy H/O foot surgery History of esophagogastroduodenoscopy (EGD) History of tonsillectomy History of sinus surgery History of neck surgery History of carpal tunnel release History of release of tendon History of umbilical hernia repair History of colonoscopy Family History Family History Mother History of colon cancer Brother History of liver cancer Maternal Aunt History of colon cancer Father No problems noted. Social History Social History Household Members: None Are you a primary pet care attendant to a significant other at home: No Do you presently have visiting nurse or other home services: No Alcohol intake: never Patient Tobacco Use Status: Former Tobacco user Tobacco use type: Cigarette Smoked in Last 30 Days: No Second Hand Smoke Exposure: No Use of substances other than those prescribed or required for medical reasons: No Advance Directives: No Advance Directives Information Provided: No Do you have a plan to hurt others: No Plan service: No Current occupational status: unemployed and disabled 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 Physical Exam ED Vital Signs: Vital Signs - 24 hr 09/06/24 08:21 09/06/24 10:01 09/06/24 10:24 Temperature 97.9 F 97.9 F 97.9 F Pulse Rate 114 H 98 98 Respiratory Rate 18 16 16 Blood Pressure 107/80 107/64 107/64 Pulse Oximetry 97 96 96 Oxygen Delivery Method Room Air Room Air Room Air BMI result Body Mass Index 30.4 Const General: cooperative, no acute distress, alert and awake Nutritional Appearance: well nourished Orientation/consciousness: patient oriented x3 HENMT Head: Yes normal to inspection and Yes atraumatic Ears: hearing grossly normal bilaterally and external ears normal General nose exam: Normal external nose present, no nasal discharge noted and no epistaxis Face and sinus: Yes normal facial exam, No abrasion and No laceration Mouth: Normal oral and palatal mucosa present, no drooling and no muffled voice Eyes General: appearance normal, both eyes and all related structures Periorbital: periorbital findings normal Eyelids: Yes eyelids normal Conjunctivae: conjunctivae normal Pupils: Equal, round and reactive pupils present EOM: EOMs intact bilaterally Neck Neck: Yes normal visual inspection, Yes full ROM and Yes no lymphadenopathy Resp Effort & Inspection: normal respiratory effort and able to speak in complete sentences Neuro General: patient oriented x3, moves all extremities and CN's II-XI intact bilaterally Cranial nerves: Yes Equal, round and reactive pupils present Cognition (Neuro): normal cognition Extrem General: Yes normal to inspection, Yes full ROM and Yes capillary refill normal Psych Appearance: grossly normal Mental Status: mental status grossly normal Affect: normal affect Attitude: cooperative Thought process: Normal thought process present Thought content: Normal thought content present Insight: Good insight present (Psych) Medications Administered Discontinued Medications Generic Name Dose Route Start Last Admin Trade Name Freq PRN Reason Stop Dose Admin Cyclobenzaprine HCl 5 mg 09/06/24 09:55 09/06/24 10:14 Cyclobenzaprine Hcl 5 Mg Tablet PO 09/06/24 09:56 5 mg ONCE ONE Administration Prednisone 20 mg 09/06/24 09:55 09/06/24 10:14 Prednisone 20 Mg Tablet PO 09/06/24 09:56 20 mg ONCE ONE Administration Medical Decision Making Medical Decision Making MDM Narrative: Patient is a 59 year old assigned male at with a history of sciatica, HTN, asthma, DM, and GERD presenting to the emergency department today with left sided low back pain. Patient's physical exam was unremarkable. Patient's clinical presentation is most consistent with sciatica. I explained my physical exam findings as well as all test results to the patient. I answered all questions asked by the patient. I stressed the importance of the patient taking his medication as directed (either prescribed or as the over the counter packaging recommends). I stressed the importance of the patient following up with his primary care provider. I stressed the importance of the patient returning to the emergency department immediately if his symptoms were to worsen or if he were to develop any dizziness, shortness of breath, difficulty breathing, chest pain, blurry vision, loss of vision, nausea, vomiting, abdominal pain, fever, chills, back pain, or any other complaints. Patient verbalized agreement and understanding with this treatment plan and discharge. Differential Diagnosis Differential Diagnoses: The differential diagnosis associated with the presentation includes Sciatica Low back pain Admission/Observation Consideration of admission/observation: Escalation of care including admission/observation considered Patient would have been admitted to the hospital had his clinical presentation warranted hospital admission. Lab Data MDM Lab Attestation statement: I reviewed the patient's lab results. My interpretation of these studies and their corresponding values is that they are grossly normal. Labs: Lab Results 09/06/24 Range/Units 08:50 Urine Color Dark Yellow Urine Appearance Clear Urine pH 6.0 (5.0-9.0) Ur Specific [place] 1.020 (1.005-1.025) Urine Protein Negative (Neg-Trace) mg/dL Urine Glucose (UA) Negative (Negative) mg/dL Urine Ketones Trace (Negative) mg/dL Urine Blood Negative (Negative) Urine Nitrite Negative (Negative) Ur Leukocyte Esterase Trace H (Negative) Urine RBC 0-2 (0-2) /HPF Urine WBC 0-5 (0-5) /HPF Ur Squamous Epith Cells 3-5 (0-2) /HPF Urine Bacteria None Seen (None Seen) Hyaline Casts 3-5 (0-2) /LPF Prescription Management I considered prescription management with: Pain Medication (patient prescribed a muscle relaxer for sciatica.) Discharge Plan Discharge Clinical Impression: Sciatica Patient Disposition: Home, Self-Care Instructions: Sciatica (ED), Lower Back Exercises (ED) Additional Instructions: Follow up with your primary care provider. Return to the emergency department immediately if your symptoms worsen or if you develop any dizziness, shortness of breath, difficulty breathing, chest pain, blurry vision, loss of vision, nausea, vomiting, abdominal pain, fever, chills, back pain, or any other complaints. Sydnie?seguimiento?con peetrsen m?dico de atenci?n primaria. Acuda inmediatamente al servicio de urgencias si petrona s?ntomas empeoran o si presenta falta de aliento, dificultad para respirar, dolor tor?cico, mareos, aturdimiento, dolor de espalda, dolor abdominal, fiebre, escalofr?os o cualquier otro s?ntoma. Please see the information below about our Patient Portal. If you are not yet enrolled in the [facility] Patient Portal, you will receive an enrollment email invitation following your visit to any [facility] setting. You may also self-enroll in the Patient Portal by visiting our website: [email or web address] The following information is required to access the Patient Portal: - Your [facility] Medical Record Number - Your personal home email address (must match what is in your electronic medical record, Registration staff can assist with this) - Name - Date of Capabilities of the Patient Portal: - Message some providers - View upcoming appointments - Access your health summary, medical history, and visit history - View current conditions and allergies - View procedure and lab results - View your medications, including guidelines, side effects, and precautions - Complete pre-appointment questionnaires requested by your provider - Ready summary reports of your office visits and procedures To access the Patient Portal Mobile Alvaro, follow these directions: - Search [place] in the Alvaro Store or [employer] Store - Download the Alvaro - Search for [facility] - Enter your login/password Portal del paciente Si usted no esta inscrito en el portal de pacientes de [facility], recibira kenneth invitacion de inscripcion despues de petersen visita al [facility] o al [facility] via correo electronico. Tambien puede inscribirse voluntariamente en el portal de pacientes visitando nuestra pagina web: [email or web address] La siguiente informacion sera requerida para acceder al portal: - Petersen nandini de historia medica de [facility] - Petersen direccion de correo electronico personal - Nombre - Fecha de nacimiento Capacidades: Las siguientes capacidades estan disponibles en el portal de pacientes: - Enviar mensajes a algunos doctores - Verificar proximas citas - Acceso a peteresn historial de laureen, registro medico e historial de visitas - Azul las condiciones actuales y alergias azul procedimientos y resultados del laboratorio - Azul petrona medicamentos, incluyendo las pautas - Efectos secundarios y precauciones - Completar o llenar formularios / cuestionarios de - Citas solicitadas por petersen doctor - Leer los resumenes de reportes medicos de petrona visitas y procedimientos [place] acceder a la aplicacion movil: - [employer] [facility] en la Alvaro Store o [employer] - Descargue la aplicacion - [facility] - Ingrese petersen nombre de usuario / Contrasena Prescriptions: New prednisone 20 mg tablet 20 mg PO DAILY 7 Days Qty: 7 0RF cyclobenzaprine 5 mg tablet 5 mg PO TID PRN (Reason: muscle spasm) 7 Days Qty: 21 0RF No Action ibuprofen 800 mg tablet 800 mg PO Q8H PRN (Reason: pain) 30 Days Qty: 90 3RF latanoprost 0.005 % drops 1 drp ophthalmic (eye) BEDTIME alprazolam 2 mg tablet 1 tab PO BID PRN (Reason: anxiety) albuterol sulfate 90 mcg/actuation HFA aerosol inhaler 2 puff inhalation Q4H PRN (Reason: Wheezing) multivitamin with folic acid [Tab-A-Kelsie] 400 mcg tablet 1 tab PO DAILY naloxone [Narcan] 4 mg/actuation spray,non-aerosol 1 spray intranasal DAILY lidocaine 4 % gel 1 appl topical BID PRN (Reason: pain) Qty: 30 0RF Rx Instructions: apply to affected area, monitor area for any signs of rash or skin breakdown montelukast [Singulair] 10 mg tablet 10 mg PO DAILY methadone 10 mg tablet 10 mg PO TID PRN (Reason: Pain) duloxetine 60 mg capsule,delayed release(DR/EC) 60 mg PO DAILY hydrocortisone [Procto-Med HC] 2.5 % cream with perineal applicator 1 appl SD BID-QID PRN (Reason: hemorrhoids) Qty: 30 0RF zolpidem 10 mg tablet 10 mg PO BEDTIME PRN (Reason: insomnia) (DME) FreeStyle Lite Strips Strip See Rx Instructions .ROUTE TID Qty: 10 Rx Instructions: As directed (DME) pen needle, diabetic [Comfort EZ Pen [place]] 33 gauge x 1/4 needle See Rx Instructions .ROUTE .MEDSUPPLY Qty: 100 Rx Instructions: As directed metformin 750 mg tablet extended release 24 hr 750 mg PO DAILY tizanidine 4 mg tablet 4 mg PO TID PRN (Reason: Pain) magnesium oxide 400 mg (241.3 mg magnesium) tablet 400 mg PO DAILY testosterone enanthate 200 mg/mL oil 150 mg IM Q2W (DME) pen needle, diabetic [UltiCare Pen Needle] 31 gauge x 5/16 needle See Rx Instructions .ROUTE .MEDSUPPLY Qty: 1200 Rx Instructions: As directed Linzess 290 mcg capsule 290 mcg PO DAILY PRN (Reason: Constipation) levocetirizine 5 mg tablet 5 mg PO DAILY spironolactone 25 mg tablet 25 mg PO DAILY Entresto 49-51 mg tablet 1 tab PO BID Toujeo Max U-300 SoloStar 300 unit/mL (3 mL) insulin pen 70 unit subcut DAILY cyclobenzaprine 5 mg tablet 10 mg PO DAILY aspirin 81 mg tablet,delayed release (DR/EC) 81 mg PO DAILY finasteride [Proscar] 5 mg tablet 5 mg PO DAILY 90 Days Qty: 90 3RF bupropion HCl 150 mg tablet extended release 24 hr 150 mg PO QAM bupropion HCl 300 mg tablet extended release 24 hr 300 mg PO DAILY tamsulosin 0.4 mg capsule 0.4 mg PO DAILY naproxen 500 mg tablet 500 mg PO BID PRN (Reason: Pain) isosorbide mononitrate 60 mg tablet extended release 24 hr 60 mg PO DAILY Rocklatan 0.02-0.005 % drops 1 drp ophthalmic (eye) DAILY Mounjaro 15 mg/0.5 mL pen injector 15 mg subcut QWEEK brimonidine 0.2 % drops 1 drp ophthalmic (eye) DAILY prednisolone acetate 1 % drops,suspension 1 drp ophthalmic (eye) DAILY (DME) True Comfort Safety Pen Needle 32 gauge x 5/32 needle See Rx Instructions .ROUTE .MEDSUPPLY Qty: 100 Rx Instructions: As directed carvedilol 3.125 mg tablet 3.125 mg PO BID metoclopramide HCl 5 mg tablet 5 mg PO DAILY esomeprazole magnesium 20 mg capsule,delayed release(DR/EC) 20 mg PO BID Qty: 60 2RF ketotifen fumarate 0.025 % (0.035 %) drops 1 drp ophthalmic (eye) BID Rx Instructions: administer at least 8 hours apart cholecalciferol (vitamin D3) 25 mcg (1,000 unit) capsule 25 mcg PO DAILY prazosin 5 mg capsule 5 mg PO DAILY atorvastatin 80 mg tablet 80 mg PO DAILY fluticasone propionate 50 mcg/actuation spray,suspension 1 spray intranasal BID Arnuity Ellipta 100 mcg/actuation blister with device 1 inh inhalation DAILY glipizide 5 mg tablet 5 mg PO BID dorzolamide 2 % drops 2 drp ophthalmic (eye) DAILY ondansetron HCl 4 mg tablet 4 mg PO Q8H PRN (Reason: Nausea) ibuprofen 800 mg tablet 800 mg PO Q8H PRN (Reason: pain) 30 Days Qty: 90 3RF Referrals: Vamshi Man MD [Primary Care Provider] - Interventions: ED Discharge Assessment Last Done: 09/06/24 10:24 Discharge Date/Time: 09/06/24 10:25 Print Language: Polish
[2024-09-06 10:01] VITALS: BP 107/64; PULSE 98; RESP 16; TEMP 36.6; O2SAT 96
[2024-09-06] MEDS: Cyclobenzaprine HCl 5 MG TABLET PO (10:14)
[2024-09-06] MEDS: predniSONE 20 MG TABLET PO (10:14)
--- NOTE | 2024-09-06 10:23 | PC.NURSE ---
Pt was ambulatory to bed w/ steady gait. using cane minimally. BLE warm to touch.
[2024-09-06 10:24] VITALS: BP 107/64; PULSE 98; RESP 16; TEMP 36.6; O2SAT 96
== END 2024-09-06 10:25 | disposition home or self-care (01) ==
PROVIDERS: Emergency Provider Emergency Medicine; PCP Internal Medicine
DX: M54.42 Lumbago with sciatica, left side (principal); I25.10 Atherosclerotic heart disease of native coronary artery without angina pectoris; E11.9 Type 2 diabetes mellitus without complications; Z79.4 Long term (current) use of insulin; Z79.899 Other long term (current) drug therapy
CPT/HCPCS: 81001; 99283; 99284

== ENCOUNTER 2024-09-17 08:54 | Outpatient (AMB) | payer MEDICARE, MEDICAID, SELFPAY ==
--- NOTE | 2024-09-17 09:04 | A.OFFVIS_ITS ---
Vital Signs 09/17/24 09:09 Height 6 ft 2 in Weight 237 lb BMI 30.4 Intake Visit Reasons: OV- B/L knee Durolane injection Intake Note: Elissa is a 59 year old male who presents today for bilateral knee Durolane injection. Allergies Penicillins [PENICILLINS] Allergy (Unknown, Verified 09/17/24 09:09) RASH lactose Adverse Reaction (Intermediate, Uncoded 09/17/24 09:09) Abdominal Pain HPI HPI OV- B/L knee Durolane injection: Details: 59 year old male who presents today for bilateral knee Durolane injection. [facility] Medical History Diverticulosis Osteoarthritis IBS (irritable bowel syndrome) Hyperlipidemia CAD (coronary artery disease) Nonischemic cardiomyopathy CHF (congestive heart failure) Sleep apnea Obesity (BMI 30.0-34.9) Left flank discomfort Upper abdominal pain GERD (gastroesophageal reflux disease) Elevated cholesterol HTN (hypertension) Constipation by delayed colonic transit Bleeding hemorrhoids Diabetes mellitus Asthma Surgical History History of dacryocystorhinostomy H/O foot surgery History of esophagogastroduodenoscopy (EGD) History of tonsillectomy History of sinus surgery History of neck surgery History of carpal tunnel release History of release of tendon History of umbilical hernia repair History of colonoscopy Family History Mother History of colon cancer Brother History of liver cancer Maternal Aunt History of colon cancer Father No problems noted. 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 Tenderness along the medial and lateral joint line. Full ROM with crepitus. Negative Pearl?s. No ligamentous laxity. NVI. Office Procedures AMB Joint Injection/Aspiration Joint Injection/Aspiration Details: Bilat knee durolane injection Primary Site: right knee Secondary Site: left knee Prep: site was prepped using aseptic technique, ethochloride spray was applied and injection warnings given Injected: in the joint Approach Used: anterolateral Procedure: The patient tolerated the procedure well Coding 83746 - Glenohumeral/Tronchanteric Bursa/Intraarticular Procedure code (CPT) selection complete Assessment & Plan Assessment & Plan (1) Osteoarthritis of knees, bilateral: Code(s): M17.0 - Bilateral primary osteoarthritis of knee Category: Medical Plan: Plan was to proceed with gel injection today. Bilateral knee durolane Injection performed today which the patient tolerated well. He will rest ice and use anti-inflammatories as needed for the next several days. Increase activities as tolerated and if symptoms persist or worsen the patient will contact our office otherwise follow up as needed. Coding Level of Care Code Procedure Only Diagnoses Osteoarthritis of knees, bilateral M17.0 CPT Codes Coding - Joint 7: 13046 - Glenohumeral/Tronchanteric Bursa/Intraarticular ([id number])
[2024-09-17 09:09] VITALS: BMI 30.4
--- OUTSIDE RECORDS SUMMARY | 2024-09-17 09:20 | XMS_ITS | Encounter Summary ---
Author Organization [facility] Address [address] [place] [address] Care Team Providers Care Valve Technician Name Role Phone Vamshi Man MD Primary Care Provider Encounter Details Date Type Department Care Team (Late st Contact Info) Description 09/16/2024 11:25 AM EDT Ancillary Procedure [facility] Cardiology [facility] [address] [facility] [address] [place] [phone] Arrived Social History Tobacco Use Types Packs/Day [...] Department Care Team (Late Contact Info) Description 09/17/2024 10:50 AM EDT Office Visit [facility] [address] [place] [phone] Manuel Aldrich MD [address] [place] [address] [address] [place] [address] 10/10/2024 11:00 AM EDT Hospital Encounter [facility] Cardiac Bander And Cellophaner Helper Machine [address] [place] [phone] Musa Griffin MD [address] [place] [address] Left bundle branch block 10/10/2024 11:00 AM EDT - 10/10/2024 12:00 PM EDT Surgery [facility] Cardiac Bander [facility] Cell[employer] Hel[facility] [address] [place] [phone] Musa Griffin MD [address] [place] [address] Loop recorder removal [01007 (CPT??)] 10/27/2024 1:00 PM EDT Ancillary Procedure [facility] - [facility] [address] [facility] [address] [place] [address] 10/29/2024 8:30 AM EDT Office Visit Orthopedic Surgery - [place] [address] [facility] [address] [place] [phone] Cheng Rea, DPM 175 [facility] [address] [place] [address] 12/08/2024 9:10 AM EDT Office Visit Gastroenterology - [place] 175 [facility] 175 [facility] [address] [place] [phone] Idalia Sandoval PA 175 [facility] [address] [place] [address] documented as of this encounter Procedures Procedure Name Priority Date/Time Associated Diagnosis Comments CARDIAC DEVICE CHECK- REMOTE- MURJ Routine 09/16/2024 11:24 AM EDT documented in this encounter Results * Cardiac device check - Remote- MURJ (09/16/2024 11:24 AM EDT) Date Time Interrogation Session [id number] CV DEVICE CHECK Type Interrogation Session Remote Device Initiated CV DEVICE CHECK Implantable Pulse Generator Shore Worker BSX CV DEVICE CHECK Implantable Pulse Generator Type ILR CV DEVICE CHECK Implantable Pulse Generator Model M312 CV DEVICE CHECK Implantable Pulse Generator Serial Number [id number] CV DEVICE CHECK Implantable Pulse Generator Implant Date 20240516 CV DEVICE CHECK Battery Status Beginning of Service CV DEVICE CHECK Atrial Tachy Statistic AT/AF [place] Percent 0.00 CV DEVICE CHECK Date of Service 2024-09-27 CV DEVICE CHECK Anatomical Region Laterality Modality Device Interroga tion 09/08/2024 12:3 4 AM EDT Impressions 09/16/2024 11:08 AM EDT Normal Remote: With Events * Events or Alerts: 1 PAT / 9 sec * This is a normal remote diagnostic device check * Battery data was reviewed * Battery status: JADA, * Presenting rhythm reviewed * Heart Rate Histograms reviewed Narrative Procedure Note Musa Griffin MD - 09/16/2024 IMPRESSION: Normal Remote: With Events * Events or Alerts: 1 PAT / 9 sec * This is a normal remote diagnostic device check * Battery data was reviewed * Battery status: JADA, * Presenting rhythm reviewed * Heart Rate Histograms reviewed Musa Griffin MD CV IMPLANTABLE CARDIAC DEV ICE PROCEDURES Final Result documented in this encounter Visit Diagnoses Not on filedocumented in this encounter Care Teams Valve Technician Relationship Specialty Start Date End Date Vamshi Man MD [address] [place] [id number] PCP - General 10/06/10 documented as of this encounter
== END 2024-09-17 10:20 | disposition home or self-care (01) ==
LOC: HO.HOS 08:55
PROVIDERS: PCP Internal Medicine; Visit Provider Physician Assistant
DX: M17.0 Bilateral primary osteoarthritis of knee (principal)
CPT/HCPCS: 20610

== ENCOUNTER → 2024-09-17 08:54 | Outpatient (BNVA) | payer MEDICARE, MEDICAID, SELFPAY | PROVIDERS: PCP Internal Medicine; Visit Provider Physician Assistant | DX: M17.0 Bilateral primary osteoarthritis of knee (principal) | CPT/HCPCS: 20610; J7318 ==

== ENCOUNTER 2024-09-19 06:16 | Outpatient (REF) | payer MEDICARE, MEDICAID, SELFPAY ==
--- OUTSIDE RECORDS SUMMARY | 2024-09-19 06:19 | XMS_ITS | Encounter Summary ---
Author Organization [facility] Address [address] [place] [address] Care Team Providers Care Safety Physician Name Role Phone Vamshi Man MD Primary Care Provider Encounter Details Date Type Department Care Team (Late Contact Info) Description 09/16/2024 11:25 AM EDT Ancillary Procedure [facility] - [facility] [address] [facility] [address] [place] [address] Arrived Social History Tobacco Use [...] Department Care Team (Late Contact Info) Description 10/10/2024 11:00 AM EDT Hospital Encounter [facility] Cardiac Shredding Floor Equipment Operator [address] [place] [phone] Musa Griffin MD [address] [place] [address] Left bundle branch block 10/10/2024 11:00 AM EDT - 10/10/2024 12:00 PM EDT Surgery [facility] Cardiac Shredding Floor Equipment Operator [address] [place] [phone] Musa Griffin MD 300 [facility] [address] [place] [address] Loop recorder removal [08816 (CPT??)] 10/27/2024 1:00 PM EDT Ancillary Procedure [facility]iology Associates - [facility] [address] [facility] [address] [place] [phone] 10/29/2024 8:30 AM EDT Office Visit Orthopedic Surgery - [place] [address] 175 [facility] [address] [place] [phone] Cheng Rea DPFranco 175 [facility] [address] [place] [address] 12/08/2024 9:10 AM EDT Office Visit Gastroenterology - [place] 175 [facility] 175 [facility] [address] [place] [phone] Idalia Sandoval PA 175 [facility] [address] [place] [address] documented as of this encounter Procedures Procedure Name Priority Date/Time Associated Diagnosis Comments CARDIAC DEVICE CHECK- REMOTE- MURJ Routine 09/16/2024 11:24 AM EDT documented in this encounter Results * Cardiac device check - Remote- MURJ (09/16/2024 11:24 AM EDT) Date Time Interrogation Session [id number] CV DEVICE CHECK Type Interrogation Session Remote Device Initiated CV DEVICE CHECK Implantable Pulse Generator Hyperbaric Tech BSX CV DEVICE CHECK Implantable Pulse Generator Type ILR CV DEVICE CHECK Implantable Pulse Generator Model M312 CV DEVICE CHECK Implantable Pulse Generator Serial Number [id number] CV DEVICE CHECK Implantable Pulse Generator Implant Date 20240516 CV DEVICE CHECK Battery Status Beginning of Service CV DEVICE CHECK Atrial Tachy Statistic AT/AF [place] Percent 0.00 CV DEVICE CHECK Date of [...] on filedocumented in this encounter Care Teams Safety Physician Relationship Specialty Start Date End Date Vamshi Man MD [address] [place] [phone] PCP - General 10/06/10 documented as of this encounter
[2024-09-19 08:04] LABS: Prostate Specific Antigen 1.74 ng/mL (<0.05-4.0)
== END 2024-09-19 06:17 | disposition home or self-care (01) ==
LOC: HO.LAB 06:16
PROVIDERS: PCP Internal Medicine; Visit Provider Urology
DX: R31.29 Other microscopic hematuria (principal); N40.1 Benign prostatic hyperplasia with lower urinary tract symptoms; N13.8 Other obstructive and reflux uropathy; R97.20 Elevated prostate specific antigen [PSA]; Z12.5 Encounter for screening for malignant neoplasm of prostate
CPT/HCPCS: 36415; 84153

== ENCOUNTER 2024-09-26 13:45 | Outpatient (AMB) | payer MEDICARE, MEDICAID, SELFPAY ==
[2024-09-26 13:50] VITALS: BP 110/64; PULSE 98; O2SAT 98; BMI 29.9
--- NOTE | 2024-09-26 13:50 | A.OFFVIS_ITS ---
Vital Signs 09/26/24 13:50 Height 6 ft 2 in Weight 233 lb 4 oz BMI 29.9 BP 110/64 Blood Pressure Location Lt brachial Position Sitting Pulse 98 Pulse Source Pulse Oximeter Pulse Oximetry (%) 98 Oxygen Delivery Method Room Air Intake Visit Reasons: INP-DHARA Intake Note: Patient presents STRAP CUTTING MACHINE OPERATOR DHARA. Can not sleep, only about 2 hrs. He sometimes takes nap but very short without feeling refreshed. Rn Documentation Required: Yes Rn Documentation Services: Rn Documentation Present Rn Documentation Name: Quintin [id number] Information Interpreted: non-clinical & clinical Accompanied by: Spouse Allergies Penicillins [PENICILLINS] Allergy (Unknown, Verified 09/26/24 13:58) RASH lactose Adverse Reaction (Intermediate, Uncoded 09/17/24 09:09) Abdominal Pain HPI Comments Details: 59 year old r. handed, yoruba speaking male with T2DM, referred to us for sleep evaluation by his Answering Service Telephone Operator. He is here with his today who helps with history, certified court/medical interpreter on IPAD. Pacemaker implantation scheduled October 05, 2024 at [facility], Dr. Lees. H/O glaucoma, July 2024, Dr. Jose Holbrook, and takes latanoprost for IOP management. HST pending Labs pending His bp has been low lately and managed by his lead process engineer. He states he has insomnia will take daytime naps due to fatigue, and his c/o of loud snoring during the day and the night. He goes to bed at 8pm to 10pm and will not fall asleep, he takes melatonin and ambien as this helps him to fall asleep. He wakes up at 12am, 1am, and has trouble staying asleep. He wakes up for the bathroom 5-7 times, at night, now he is being followed by his urologist and takes flomax 0.4mg PO daily. His memory is stable. His mood is hyper, sad, depressed, he feels very anxious, and will go to the gym at 3am, he takes buproprion 150mg PO BID, per his therapist. He has Headaches daily, and says he has 2 screws in cervical spine and due to this his ROM is limited to the r>l. RLS he c/o of r. ankle pain with numbness, tingling and uncomfortable feeling bilaterally. He denies this keeps him up at night. He denies smoking, and drinking [facility] Medical History Diverticulosis Osteoarthritis IBS (irritable bowel syndrome) Hyperlipidemia CAD (coronary artery disease) Nonischemic cardiomyopathy CHF (congestive heart failure) Sleep apnea Obesity (BMI 30.0-34.9) Left flank discomfort Upper abdominal pain GERD (gastroesophageal reflux disease) Elevated cholesterol HTN (hypertension) Constipation by delayed colonic transit Bleeding hemorrhoids Diabetes mellitus Asthma Surgical History History of dacryocystorhinostomy H/O foot surgery History of esophagogastroduodenoscopy (EGD) History of tonsillectomy History of sinus surgery History of neck surgery History of carpal tunnel release History of release of tendon History of umbilical hernia repair History of colonoscopy Family History Mother History of colon cancer Brother History of liver cancer Maternal Aunt History of colon cancer Father No problems noted. 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 Resp Effort & Inspection: normal respiratory effort and able to speak in complete sentences Neuro Other: limited rom on lateral ROM bilaterally. General: patient oriented x3 and moves all extremities Cranial nerves: Yes Facial sensation intact/muscles of mastication intact, Yes Equal, round and reactive pupils present, Yes Normal accommodation reflex present, Yes Midline tongue present, Yes Ability to bilaterally rotate head present and Yes Ability to bilaterally elevate shoulders present Gait exam (Neuro): Normal gait present Motor exam (neuro): 5/5 motor strength present throughout and Normal motor mu scle tone present throughout Deep tendon reflexes (DTR's): Right triceps reflex intensity grade: 2+, Left triceps reflex intensity grade: 2+, Rt Biceps (C5, C6): 2+, Left biceps reflex intensity grade: 2+, Right brachioradialis reflex intensity grade: 2+, Left brachioradialis reflex intensity grade: 2+, Right patellar reflex intensity grade: 2+, Left patellar reflex intensity grade: 2+, Right ankle reflex intensity grade: 2+ and Left ankle reflex intensity grade: 2+ Coordination: [id number] test normal Psych Appearance: grossly normal Thought process: Normal thought process present Thought content: Normal thought content present Results Reviewed Results Reviewed: CT/CT abdomen pelvis wo/w IV con IMPRESSION: Bosniak type II cysts, right kidney. Bosniak type I cyst bilaterally. Fleischner guidelines were followed. Assessment & Plan Assessment & Plan (1) Excessive daytime sleepiness: Code(s): G47.19 - Other hypersomnia Category: Medical (2) Insomnia: Code(s): G47.00 - Insomnia, unspecified Category: Medical Qualifiers: Insomnia type: primary Qualified Code(s): F51.01 - Primary insomnia (3) Loud snoring: Code(s): R06.83 - Snoring Category: Medical Plan HST to r/o sleep apnea. Difficulty falling asleep, stop ambien and start Ramelteon 8mg po at bedtime. Excessive daytime sleepiness will check labs to r/o deficiencies. Snoring can use night time snore strips. Orders: Orders RT home sleep study 09/26/24 G47.19 - Other hypersomnia Methylmalonic Acid 09/26/24 G47.19 - Other hypersomnia, G47.9 - Sleep disorder, unspecified, R53.83 - Other fatigue Vitamin B12 and Folate 09/26/24 G47.19 - Other hypersomnia Vitamin D 25-OH Total 09/26/24 G47.19 - Other hypersomnia TSH reflex Free T4 09/26/24 G47.19 - Other hypersomnia Hemoglobin A1c 09/26/24 G47.19 - Other hypersomnia Ferritin 09/26/24 G47.19 - Other hypersomnia Homocysteine 09/26/24 G47.19 - Other hypersomnia, G47.9 - Sleep disorder, unspecified, R53.83 - Other fatigue Medications: New ramelteon take one tablet daily at bedtime. 8 mg PO BEDTIME 30 tabs 1RF insomnia MDD 8mg po G47.00 - Insomnia, unspecified Patient Instructions: Sleep Hygiene provided: set a scheduled bedtime and wake time to help regulate the circadian rhythm and balance the release of pituitary hormones. Sleep in a dark room, temperatures below 68 degrees, and no devices n bed. Limit caffeinated products 6 hours prior to bed, and limit fluids 2-4 hours prior to bed. Gentle night yoga, diffusing essential oils, and playing soft music can be relaxing. Coding Level of Care Code New Pt Level 4 (32710) Diagnoses Excessive daytime sleepiness G47.19 Primary insomnia F51.01 Insomnia type: primary Loud snoring R06.83 Time Spent (min) 30 Comment Evaluation Sleep Questionnaire Difficulty staying asleep?: Yes Number of arousals: 5-7 Snoring: Yes Witnessed apneas: No Gasping arousals: No Nocturia: Yes GERD: Yes Vivid dreams: Yes (nightmares about his father and brother) Acting out dreams: No Abnormal behavior in sleep: No Abnormal movements in sleep: No Morning headaches: Yes (daily otc tylenol) Excessive daytime sleepiness: Yes Daytime naps: No (can't sleep due to the light.) Restless legs: Yes (sometimes R>L screws) Hallucinations: No Sleep paralysis: No Drop attacks: No Sleep Study: Yes CPAP: No
--- OUTSIDE RECORDS SUMMARY | 2024-09-26 13:51 | XMS_ITS | Clinical Summary ---
Author Organization [facility] Address 100 [facility] 20 0 [place] [address] Phone Care Team Providers Care Rate Quoting Operator Name Role Phone Vamshi Man MD Primary Care Provider [phone] Allergies Active Allergy Reactions Criticality Noted Date [...] Lateral epicondylitis 11/23/2021 Overview (11/23/2021): s/p Modified [place] procedure, repair of conjoined tendon of extensor [...] today Switched from Losartan to Entresto by Aerial Planting And Cultivation Manager recently Renal osteodystrophy 11/23/2021 Diabetes mellitus 01/06/2021 [...] Office Visit [facility] [address] [place] [phone] Caprice Mary ARNP Chronic kidney disease, stage 2 (mild) (Primary Dx); Hypertension; Vitamin D deficiency, not otherwise specified 07/24/2024 Orders Only [facility] [address] [address] Caprice Mary ARNP 07/16/2024 Orders Only [facility] [address] [address] Caprice Mary ARNP from Last 3 Months [...] Office Visit [facility] [address] [phone] Caprice Mary ARNP [address] [address] Health Maintenance Due Date Last [...] D 25 Hydroxy (07/24/2024 10:12 AM EDT) [facility] Signature Vitamin D, 25-OH, Total 41.0 30.0 - 100.0 ng/mL [facility] Comment: Vitamin D deficiency has been defined by the [place] of Medicine and an Endocrine Society practice guideline as a level of serum 25-OH vitamin D less than 20 ng/mL (1,2). The Endocrine Society went on to further define vitamin D insufficiency as a level between 21 and 29 ng/mL (2). 1. IOM ([place] of Medicine). 2010. Dietary reference ?? intakes for calcium and D. [place]: The ?? National Academies Press. 2. Nenita MF, Jeremie SPRINGER, Ronaldo DOSS, et al. ?? Evaluation, treatment, and prevention of vitamin D ?? deficiency: an Endocrine Society clinical practice ?? guideline. JCEM. 2010; 96(7):1911-30. 07/24/2024 10:1 2 AM EDT 07/24/2024 Caprice Mary [facility] LAB BLOOD ORDERABLES Final Result [facility] [address] [place] [address] * (ABNORMAL) Hemoglobin A1C (07/16/2024 9:59 AM EDT) Hemoglobin A1C 6.0(H) %Hb [employer] Comment: Reference Range: [place] Diabetes Association (ADA) Guidelines: <5.7: Decreased risk for diabetes 5.7 - 6.4: Increased risk for diabetes >6.4: Ongoing Hyperglycemia of any cause <7.0: Glycemic control for adults with diabetes Estimated Average Glucose 126 mg/dL [facility] [employer] 07/16/2024 9:59 AM EDT 07/16/2024 [facility] BLOOD ORDERABLES Final Result [facility] [address] [place] [address] * CBC Diff Ambiguous Default (07/16/2024 9:59 AM EDT) WBC 9.0 3.4 - 10.8 x10E3/uL [facility] RBC 4.66 4.14 - 5.80 x10E6/uL [facility] Hemoglobin 13.3 13.0 - 17.7 g/dL [facility] Hematocrit 40.8 37.5 - 51.0 % [facility] MCV 88 79 - 97 fL [facility] MCH 28.5 26.6 - 33.0 pg [facility] MCHC 32.6 31.5 - 35.7 g/dL [facility] RDW 13.4 11.6 - 15.4 % [facility] Platelets 235 150 - 450 x10E3/uL [facility] Neutrophils Relative 60 Not Estab. % [facility] Lymphocytes Relative 29 Not Estab. % [facility] Monocytes 9 Not Estab. % [facility] Eosinophils Relative 1 Not Estab. % [facility] Basophils Relative 1 Not Estab. % [facility] Neutrophils Absolute 5.4 1.4 - 7.0 x10E3/uL [facility] Lymphocytes Absolute 2.6 0.7 - 3.1 x10E3/uL [facility] Monocytes Absolute 0.8 0.1 - 0.9 x10E3/uL [facility] Eosinophils Absolute 0.1 0.0 - 0.4 x10E3/uL [facility] Basophils Absolute 0.1 0.0 - 0.2 x10E3/uL [facility] Immature Granulocytes 0 Not Estab. % [facility] Immature Grans (Absolute) 0.0 0.0 - 0.1 x10E3/uL [facility] Comment: A hand-written panel/profile was received from your office. In accordance with the [facility] Ambiguous Test Code Policy dated October 2002, we have assigned CBC with Differential/Platelet, Test Code #017538 to this request. If this is not the testing you wished to receive on this specimen, please contact the [facility] Services Department to clarify the test order. We appreciate your business. 07/16/2024 9:59 AM EDT 07/16/2024 Caprice Mary [facility] LAB BLOOD ORDERABLES Final Result Performing Organization Address [facility] de Phone Number [facility] [address] [place] [address] * Iron Panel (Fe, TIBC, TSAT) (07/16/2024 9:59 AM EDT) TIBC 335 250 - 450 ug/dL [facility] UIBC 258 111 - 343 ug/dL [facility] Iron 77 38 - 169 ug/dL [facility] Iron Saturation (TSat) 23 15 - 55 % [facility] 07/16/2024 9:59 AM EDT 07/16/2024 Caprice Mary [facility] LAB BLOOD ORDERABLES Final Result Performing Organization Address [facility] de Phone Number [facility] [place] [address] [place] [address] * Urine Albumin / Creatinine Ratio (07/16/2024 9:59 AM EDT) Creatinine, Ur 132.3 Not Estab. mg/dL [facility] Albumin, Urine 6.8 Not Estab. ug/mL [facility] Albumin/Creatin ine Ratio 5 0 - 29 mg/g creat [facility] Comment: ? Normal: ?0 - ??29 ? Moderately increased: 30 - 300 ? Severely increased: ? >300 07/16/2024 9:59 AM EDT 07/16/2024 Caprice Mary [facility] LAB URINE ORDERABLES Final Result Performing Organization Address City/[facility]/ZIP Co de Phone Number [facility] [place] [address] [place] [address] * Magnesium (07/16/2024 9:59 AM EDT) Magnesium 1.8 1.6 - 2.3 mg/dL [facility] 07/16/2024 9:59 AM EDT 07/16/2024 Caprice Mary [facility] LAB BLOOD ORDERABLES Final Result Performing Organization Address [facility] Co de Phone Number [facility] [address] [place] [address] * Ferritin (07/16/2024 9:59 AM EDT) Ferritin 73 30 - 400 ng/mL [facility] 07/16/2024 9:59 AM EDT 07/16/2024 [facility] LAB BLOOD ORDERABLES Final Result Performing Organization Address [facility] Co de Phone Number [facility] [place] [address] [place] [address] * (ABNORMAL) Renal Function Panel (07/16/2024 9:59 AM EDT) Glucose 83 70 - 99 mg/dL [facility] BUN 14 6 - 24 mg/dL [facility] Creatinine 1.07 0.76 - 1.27 mg/dL [facility] eGFR CKD-EPI CR 2020 80 >59 mL/min/1.7 3 [facility] BUN/Creatinine Ratio 13 9 - 20 [facility] Sodium 135 134 - 144 mmol/L [facility] Potassium 4.2 3.5 - 5.2 mmol/L [facility] Chloride 101 96 - 106 mmol/L [facility] Bicarbonate (CO2) 19(L) 20 - 29 mmol/L [facility] Calcium 9.1 8.7 - 10.2 mg/dL [facility] Albumin 4.6 3.8 - 4.9 g/dL [facility] Phosphorus 3.2 2.8 - 4.1 mg/dL [facility] 07/16/2024 9:59 AM EDT 07/16/2024 Caprice SMITH LAB BLOOD ORDERABLES Final Result [facility] [address] [place] [address] from Last 3 Months Insurance Medicare Medicaid [place] Medicare Medicaid [place] Care Teams Rate Quoting Operator Relationship Specialty Start Date End Date Vamshi Man MD [address] [place] [address] PCP - General 04/26/20
== END 2024-09-26 15:28 | disposition home or self-care (01) ==
LOC: HO.HSMS 13:46
PROVIDERS: PCP Internal Medicine; Visit Provider Physician Assistant Medical
DX: G47.19 Other hypersomnia (principal); F51.01 Primary insomnia; R06.83 Snoring
CPT/HCPCS: 99204

== ENCOUNTER → 2024-09-26 13:45 | Outpatient (BNVA) | payer MEDICARE, MEDICAID, SELFPAY | PROVIDERS: PCP Internal Medicine; Visit Provider Physician Assistant Medical | DX: G47.19 Other hypersomnia (principal); F51.01 Primary insomnia | CPT/HCPCS: 99202 ==

== ENCOUNTER 2024-09-30 06:02 | Outpatient (REF) | payer MEDICARE, MEDICAID, SELFPAY ==
--- OUTSIDE RECORDS SUMMARY | 2024-09-30 06:05 | XMS_ITS | Clinical Summary ---
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 [address] [place] [phone] Caprice Mary ARNP Chronic kidney disease, stage 2 (mild) (Primary Dx); Hypertension; Vitamin D deficiency, not otherwise specified 07/24/2024 Orders Only [facility] [address] [address] Caprice Mary ARNP 07/16/2024 Orders Only [facility] [address] [phone] Caprice Mary ARNP from Last 3 Months [...] Office Visit [facility] [address] [phone] Caprice Mary ARNP [address] [phone] Health Maintenance Due Date Last [...] D 25 Hydroxy (07/24/2024 10:12 AM EDT) [facility] Signature Vitamin D, 25-OH, Total 41.0 30.0 - 100.0 ng/mL [facility] Comment: Vitamin D deficiency has been defined by the [place] of Medicine and an Endocrine Society practice guideline as a level of serum 25-OH vitamin D less than 20 ng/mL (1,2). The Endocrine Society went on to further define vitamin D insufficiency as a level between 21 and 29 ng/mL (2). 1. IOM ([place] of Medicine). 2010. Dietary reference ?? intakes for calcium and D. [place]: The ?? National Academies Press. 2. Nenita MF, Jeremie SPRINGER, Ronaldo DOSS, et al. ?? Evaluation, treatment, and prevention of vitamin D ?? deficiency: an Endocrine Society clinical practice ?? guideline. JCEM. 2010; 96(7):1911-30. 07/24/2024 10:1 2 AM EDT 07/24/2024 Cap[facility] LAB BLOOD ORDERABLES Final Result [facility] [place] [address] [place] [address] * (ABNORMAL) Hemoglobin A1C (07/16/2024 9:59 AM EDT) Hemoglobin A1C 6.0(H) %Hb [employer] Comment: Reference Range: [place] Diabetes Association (ADA) Guidelines: <5.7: Decreased risk for diabetes 5.7 - 6.4: Increased risk for diabetes >6.4: Ongoing Hyperglycemia of any cause <7.0: Glycemic control for adults with diabetes Estimated Average Glucose 126 mg/dL [facility] [employer] 07/16/2024 9:59 AM EDT 07/16/[address] [facility] LAB BLOOD ORDERABLES Final Result [facility] [address] [place] [phone] * CBC Diff Ambiguous Default (07/16/2024 9:59 AM EDT) WBC 9.0 3.4 - 10.8 x10E3/uL [facility] [place] RBC 4.66 4.14 - 5.80 x10E6/uL [facility] [place] Hemoglobin 13.3 13.0 - 17.7 g/dL [facility] [place] Hematocrit 40.8 37.5 - 51.0 % [facility] [place] MCV 88 79 - 97 fL [facility] [place] MCH 28.5 26.6 - 33.0 pg [facility] [place] MCHC 32.6 31.5 - 35.7 g/dL [facility] [place] RDW 13.4 11.6 - 15.4 % [facility] [place] Platelets 235 150 - 450 x10E3/uL [facility] [place] Neutrophils Relative 60 Not Estab. % [facility] [place] Lymphocytes Relative 29 Not Estab. % [facility] [place] Monocytes 9 Not Estab. % [facility] [place] Eosinophils Relative 1 Not Estab. % [facility] [place] Basophils Relative 1 Not Estab. % [facility] [place] Neutrophils Absolute 5.4 1.4 - 7.0 x10E3/uL [facility] [place] Lymphocytes Absolute 2.6 0.7 - 3.1 x10E3/uL [facility] [place] Monocytes Absolute 0.8 0.1 - 0.9 x10E3/uL [facility] [place] Eosinophils Absolute 0.1 0.0 - 0.4 x10E3/uL [facility] [place] Basophils Absolute 0.1 0.0 - 0.2 x10E3/uL [facility] [place] Immature Granulocytes 0 Not Estab. % [facility] [place] Immature Grans (Absolute) 0.0 0.0 - 0.1 x10E3/uL [facility] [place] Comment: A hand-written panel/profile was received from your office. In accordance with the [facility] Ambiguous Test Code Policy dated October 2002, we have assigned CBC with Differential/Platelet, Test Code #430597 to this request. If this is not the testing you wished to receive on this specimen, please contact the [facility] Client Inquiry/ Technical Services Department to clarify the test order. We appreciate your business. 07/16/2024 9:59 AM EDT 07/16/2024 Caprice Mary [facility] LAB BLOOD ORDERABLES Final Result Performing Organization Address [facility] de Phone Number [facility] [place] [address] [place] [address] * Iron Panel (Fe, TIBC, TSAT) (07/16/2024 9:59 AM EDT) TIBC 335 250 - 450 ug/dL [facility] [place] UIBC 258 111 - 343 ug/dL [facility] [place] Iron 77 38 - 169 ug/dL [facility] [place] Iron Saturation (TSat) 23 15 - 55 % [facility] [place] 07/16/2024 9:59 AM EDT 07/16/2024 Caprice [facility] LAB BLOOD ORDERABLES Final Result Performing Organization Address [facility] de Phone Number [facility] [place] [address] [place] [address] * Urine Albumin / Creatinine Ratio (07/16/2024 9:59 AM EDT) Creatinine, Ur 132.3 Not Estab. mg/dL [facility] [place] Albumin, Urine 6.8 Not Estab. ug/mL [facility] [place] Albumin/Creatin ine Ratio 5 0 - 29 mg/g creat [facility] [place] Comment: ? Normal: ?0 - ??29 ? Moderately increased: 30 - 300 ? Severely increased: ? >300 07/16/2024 9:59 AM EDT 07/16/2024 Caprice [facility] LAB URINE ORDERABLES Final Result Performing Organization Address City/[facility]/ZIP Co de Phone Number [facility] [place] [address] [place] [address] * Magnesium (07/16/2024 9:59 AM EDT) Magnesium 1.8 1.6 - 2.3 mg/dL [facility] [place] 07/16/2024 9:59 AM EDT 07/16/2024 Caprice [facility] LAB BLOOD ORDERABLES Final Result Performing Organization Address [facility] Co de Phone Number [facility] [place] [address] [place] [address] * Ferritin (07/16/2024 9:59 AM EDT) Ferritin 73 30 - 400 ng/mL [facility] [place] 07/16/2024 9:59 AM EDT 07/16/2024 [facility] LAB BLOOD ORDERABLES Final Result Performing Organization Address [facility] Co de Phone Number [facility] [place] [address] [place] [address] * (ABNORMAL) Renal Function Panel (07/16/2024 9:59 AM EDT) Glucose 83 70 - 99 mg/dL [facility] [place] BUN 14 6 - 24 mg/dL [facility] [place] Creatinine 1.07 0.76 - 1.27 mg/dL [facility] [place] eGFR CKD-EPI CR 2020 80 >59 mL/min/1.7 3 [facility] [place] BUN/Creatinine Ratio 13 9 - 20 [facility] [place] Sodium 135 134 - 144 mmol/L [facility] [place] Potassium 4.2 3.5 - 5.2 mmol/L [facility] [place] Chloride 101 96 - 106 mmol/L [facility] [place] Bicarbonate (CO2) 19(L) 20 - 29 mmol/L [facility] [place] Calcium 9.1 8.7 - 10.2 mg/dL [facility] [place] Albumin 4.6 3.8 - 4.9 g/dL [facility] [place] Phosphorus 3.2 2.8 - 4.1 mg/dL [facility] [place] 07/16/2024 9:59 AM EDT 07/16/2024 Caprice SMITH LAB BLOOD ORDERABLES Final Result [facility] [place] [address] [place] [address] from Last 3 Months Insurance Medicare Medicaid [place] Medicare Medicaid [place] Care Teams Professional Bass Fisher Relationship Specialty Start Date End Date Vamshi Man MD [address] [place] [address] PCP - General 04/26/20
[2024-09-30 07:38] LABS: Estimated Average Glucose 134 mg/dL; Hemoglobin A1c % 6.3 % (<6.0)
[2024-09-30 08:12] LABS: Ferritin 94 ng/mL (20-250); TSH reflex Free T4 0.91 uIU/mL (0.32-4.0); Vitamin D 25-OH Total 38.3 ng/mL (>30)
[2024-09-30 08:26] LABS: Folate 11.5 ng/mL (> or = 4.0); Vitamin B12 787 pg/mL (200-900)
[2024-10-01 18:19] LABS: Homocysteine 11.9 umol/L (< or = 15.2)
[2024-10-03 19:08] LABS: Methylmalonic Acid 136 nmol/L (55-335)
== END 2024-09-30 06:03 | disposition home or self-care (01) ==
LOC: HO.LAB 06:02
PROVIDERS: Visit Provider Physician Assistant Medical
DX: G47.19 Other hypersomnia (principal); R53.83 Other fatigue; G47.9 Sleep disorder, unspecified; Z13.1 Encounter for screening for diabetes mellitus
CPT/HCPCS: 36415; 82306; 82607; 82728; 82746; 83036; 83090; 83921; 84443

== ENCOUNTER 2024-10-06 08:29 | Outpatient (AMB) | payer MEDICARE, MEDICAID, SELFPAY ==
--- OUTSIDE RECORDS SUMMARY | 2024-10-06 08:43 | XMS_ITS | Clinical Summary ---
Author Organization [facility] Address 100 [facility] [address] 0 [place] [address] Phone Care Team Providers Care Installer Metal Flooring Name Role Phone Vamshi Man MD Primary Care Provider Allergies Active Allergy Reactions Criticality Noted Date [...] Lateral epicondylitis 11/23/2021 Overview (11/23/2021): s/p Modified [place] procedure, repair of conjoined tendon of [...] today Switched from Losartan to Entresto by [place] Customs And Border Officer recently Renal osteodystrophy 11/23/2021 Diabetes mellitus 01/06/2021 [...] [facility] [address] [place] [phone] Caprice Mary ARNP Chronic kidney disease, stage 2 (mild) (Primary Dx); Hypertension; Vitamin D deficiency, not otherwise specified 07/24/2024 Orders Only [facility] [address] [address] Caprice Mary ARNP 07/16/2024 Orders Only [facility] [address] [address] Caprice Mary ARNP from Last 3 Months [...] Office Visit [facility] [address] [phone] Caprice Mary ARNP [address] [phone] Health Maintenance Due Date [...] 25-OH, Total 41.0 30.0 - 100.0 ng/mL [facility] Comment: Vitamin D deficiency has been defined by the [place] of Medicine and an Endocrine Society practice guideline as a level of serum 25-OH vitamin D less than 20 ng/mL (1,2). The Endocrine Society went on to further define vitamin D insufficiency as a level between 21 and 29 ng/mL (2). 1. IOM ([place] of Medicine). 2010. Dietary reference intakes for calcium and D. [place]: The National Academies Press. 2. Nenita MF, Jeremie SPRINGER, Ronaldo DOSS, et al. Evaluation, treatment, and prevention of vitamin D deficiency: an Endocrine Society clinical practice guideline. JCEM. 2010; 96(7):1911-30. 07/24/2024 10:1 2 AM EDT 07/24/2024 [facility] LAB BLOOD ORDERABLES Final Result Performing Organization Address City/[facility]/ZIP Co de Phone Number [facility] [address] [place] [address] * (ABNORMAL) Hemoglobin A1C (07/16/2024 9:59 AM EDT) Hemoglobin A1C 6.0(H) %Hb [employer] [employer] Comment: Reference Range: [place] Diabetes Association (ADA) Guidelines: <5.7: Decreased risk for diabetes 5.7 - 6.4: Increased risk for diabetes >6.4: Ongoing Hyperglycemia of any cause <7.0: Glycemic control for adults with diabetes Estimated Average Glucose 126 mg/dL [facility] 07/16/2024 9:59 AM EDT 07/16/2024 [facility] LAB BLOOD ORDERABLES Final Result [facility] [employer] [address] [place] [phone] * CBC Diff Ambiguous Default (07/16/2024 9:59 AM EDT) WBC 9.0 3.4 - 10.8 x10E3/uL [facility] RBC 4.66 4.14 - 5.80 x10E6/uL [facility] Hemoglobin 13.3 13.0 - 17.7 g/dL [facility] Hematocrit 40.8 37.5 - 51.0 % [facility] MCV 88 79 - 97 fL [facility] MCH 28.5 26.6 - 33.0 pg [facility] MCHC 32.6 31.5 - 35.7 g/dL [facility] RDW 13.4 11.6 - 15.4 % [facility] Platelets 235 150 - 450 x10E3/uL [facility] Neutrophils Relative 60 Not Estab. % [facility] Lymphocytes Relative 29 Not Estab. % [facility] Monocytes 9 Not Estab. % [facility] Eosinophils Relative 1 Not Estab. % [facility] Basophils Relative 1 Not Estab. % [facility] Neutrophils Absolute 5.4 1.4 - 7.0 x10E3/uL [facility] Lymphocytes Absolute 2.6 0.7 - 3.1 x10E3/uL [facility] Monocytes Absolute 0.8 0.1 - 0.9 x10E3/uL [facility] Eosinophils Absolute 0.1 0.0 - 0.4 x10E3/uL [facility] Basophils Absolute 0.1 0.0 - 0.2 x10E3/uL [facility] Immature Granulocytes 0 Not Estab. % [facility] Immature Grans (Absolute) 0.0 0.0 - 0.1 x10E3/uL [facility] Comment: A hand-written panel/profile was received from your office. In accordance with the [facility] Ambiguous Test Code Policy dated October 2002, we have assigned CBC with Differential/Platelet, Test Code #960345 to this request. If this is not the testing you wished to receive on this specimen, please contact the [facility] Client Inquiry/ Technical Services Department to clarify the test order. We appreciate your business. 07/16/2024 9:59 AM EDT 07/16/2024 Caprice Mary [facility] LAB BLOOD ORDERABLES Final Result Performing Organization Address City/[facility]/ZIP Co de Phone Number [facility] [address] [place] [address] * Iron Panel (Fe, TIBC, TSAT) (07/16/2024 9:59 AM EDT) TIBC 335 250 - 450 ug/dL [facility] UIBC 258 111 - 343 ug/dL [facility] Iron 77 38 - 169 ug/dL [facility] Iron Saturation (TSat) 23 15 - 55 % [facility] 07/16/2024 9:59 AM EDT 07/16/2024 Caprice Mary [facility] LAB BLOOD ORDERABLES Final Result Performing Organization Address [facility] de Phone Number [facility] [address] [place] [address] * Urine Albumin / Creatinine Ratio (07/16/2024 9:59 AM EDT) Creatinine, Ur 132.3 Not Estab. mg/dL [facility] Albumin, Urine 6.8 Not Estab. ug/mL [facility] Albumin/Creatin ine Ratio 5 0 - 29 mg/g creat [facility] Comment: Normal: 0 - 29 Moderately increased: 30 - 300 Severely increased: >300 07/16/2024 9:59 AM EDT 07/16/2024 [facility] LAB URINE ORDERABLES Final Result Performing Organization Address City/[facility]/ZIP Co de Phone Number [facility] [facility] [place] [address] [place] [address] * Magnesium (07/16/2024 9:59 AM EDT) Pathologist [facility] Magnesium 1.8 1.6 - 2.3 mg/dL [facility] 07/16/2024 9:59 AM EDT 07/16/2024 [facility] LAB BLOOD ORDERABLES Final Result Performing Organization Address City/[facility]/ZIP Co de Phone Number [facility] [address] [place] [address] * Ferritin (07/16/2024 9:59 AM EDT) Pathologist [facility] Ferritin 73 30 - 400 ng/mL [facility] [place] 07/16/2024 9:59 AM EDT 07/16/2024 [facility] LAB BLOOD ORDERABLES Final Result Performing Organization Address City/[facility] de Phone Number [facility] [address] [place] [address] * (ABNORMAL) Renal Function Panel (07/16/2024 9:59 AM EDT) Pathologist [facility] Glucose 83 70 - 99 mg/dL [facility] BUN 14 6 - 24 mg/dL [facility] Creatinine 1.07 0.76 - 1.27 mg/dL [facility] eGFR CKD-EPI CR 2020 80 >59 mL/min/1.7 3 [facility] BUN/Creatinine Ratio 13 9 - 20 [facility] Sodium 135 134 - 144 mmol/L [facility] Potassium 4.2 3.5 - 5.2 mmol/L [facility] Chloride 101 96 - 106 mmol/L [facility] Bicarbonate (CO2) 19(L) 20 - 29 mmol/L [facility] Calcium 9.1 8.7 - 10.2 mg/dL [facility] Albumin 4.6 3.8 - 4.9 g/dL [facility] Phosphorus 3.2 2.8 - 4.1 mg/dL [facility] 07/16/2024 9:59 AM EDT 07/16/2024 Caprice SMITH LAB BLOOD ORDERABLES Final Result [facility] [address] [place] [address] from Last 3 Months Insurance Medicare Medicaid [place] Medicare Medicaid [place] Care Teams Installer Metal Flooring Relationship Specialty Start Date End Date Vamshi Man MD [address] [place] [address] PCP - General 04/26/20
--- NOTE | 2024-10-06 08:46 | MHC.OFFVIS ---
Intake Visit Reasons: 6m/PSA Intake Note: Patient is present for 6m follow up/PSA 09/19 PSA: 1.74 Urology Med: Finasteride, tamsulosin, testosterone Antibiotic Allergy: Penicillins Blood Thinner:Aspirin Sleep Lab Technician Required: Yes Sleep Lab Technician Language: Corporate Account Executive Services: Sleep Lab Technician Present Sleep Lab Technician Name: Gerardo Brown Information Interpreted: non-clinical & clinical Allergies Penicillins (PENICILLINS) Allergy (Unknown, Verified 10/06/24 08:47) RASH lactose Adverse Reaction (Intermediate, Uncoded 09/17/24 09:09) Abdominal Pain Medication List - Last Reconciled 10/06/24 by Stephanie Flowers MD albuterol sulfate 90 mcg/actuation 2 puffs inhalation Q4H PRN alprazolam 1 tab PO BID PRN aspirin 81 mg PO DAILY atorvastatin 80 mg PO DAILY blood sugar diagnostic (FreeStyle Lite Strips) As directed brimonidine 0.2% 1 drp ophthalmic (eye) DAILY bupropion HCl XL 150 mg PO QAM bupropion HCl XL 300 mg PO DAILY carvedilol 3.125 mg PO BID cholecalciferol (vitamin D3) 25 mcg PO DAILY cyclobenzaprine 5 mg PO TID PRN 7 days cyclobenzaprine 10 mg PO DAILY dorzolamide 2% 2 drps ophthalmic (eye) DAILY duloxetine 60 mg PO DAILY esomeprazole magnesium 20 mg PO BID finasteride (Proscar) 5 mg PO DAILY 90 days fluticasone furoate 100 mcg/actuation (Arnuity Ellipta) 1 inh inhalation DAILY fluticasone propionate 50 mcg/actuation 1 spray intranasal BID glipizide 5 mg PO BID hydrocortisone 2.5% (Procto-Med HC) 1 appl NE BID-QID PRN ibuprofen 800 mg PO Q8H PRN 30 days ibuprofen 800 mg PO Q8H PRN 30 days insulin glargine U-300 conc (Toujeo Max U-300 SoloStar) 70 units subcut DAILY isosorbide mononitrate ER 60 mg PO DAILY ketotifen fumarate 0.025%(0.035%) 1 drp ophthalmic (eye) BID latanoprost 0.005% 1 drp ophthalmic (eye) BEDTIME levocetirizine 5 mg PO DAILY lidocaine 4% 1 appl topical BID PRN linaclotide (Linzess) 290 mcg PO DAILY PRN magnesium oxide 400 mg PO DAILY metformin ER 750 mg PO DAILY methadone 10 mg PO TID PRN metoclopramide HCl 5 mg PO DAILY montelukast (Singulair) 10 mg PO DAILY multivitamin with folic acid 400 mcg (Tab-A-Kelsie) 1 tab PO DAILY naloxone 4 mg/actuation (Narcan) 1 spray intranasal DAILY naproxen 500 mg PO BID PRN netarsudil-latanoprost 0.02-0.005 % (Rocklatan) 1 drp ophthalmic (eye) DAILY ondansetron HCl 4 mg PO Q8H PRN pen needle, diabetic (UltiCare Pen Needle) As directed pen needle, diabetic (Comfort EZ Pen [place]) As directed pen needle, diabetic, safety (True Comfort Safety Pen Needle) As directed prazosin 5 mg PO DAILY prednisolone acetate 1% 1 drp ophthalmic (eye) DAILY ramelteon 8 mg PO BEDTIME MDD 8mg po sacubitril-valsartan 49-51 mg (Entresto) 1 tab PO BID spironolactone 25 mg PO DAILY tamsulosin 0.4 mg PO DAILY testosterone enanthate 150 mg IM Q2W tirzepatide (Mounjaro) 15 mg subcut QWEEK tizanidine 4 mg PO TID PRN zolpidem 10 mg PO BEDTIME PRN HPI Comments Details: 10/06/24-- History of Present Illness - The patient is a 59-year-old male presenting with elevated Prostate-Specific Antigen (PSA) levels. - Initially sought a second opinion for elevated PSA levels on 10/01/23, with a PSA of 5.3 on 09/18/23. - Prostate biopsy on 09/24/23 showed benign results. (performed at [facility]) - Started on finasteride; recent PSA is 1.74 as of 09/19/24. - Monitored for BPH, on tamsulosin. - Reports nocturia and occasional dysuria, he stated he was treated by PCP with antibiotics for a UTI. Review of chart 08/12/24- urine c/s no growth - Long-standing benign kidney cysts. - On methadone and testosterone replacement therapy by PCP - Pt states he is scheduled for pacemaker placement, currently on aspirin. Results - Labs: PSA level was 5.3 on 09/18/23 and 1.74 on 09/19/24. - Tests: Prostate biopsy on 09/24/23 showed benign pathology. - Diagnostics: recent CT scan-09/05/24-- showed benign kidney cysts. Discussion Notes I discussed with the patient the current status of his PSA levels, which have decreased to 1.74, indicating a positive response to finasteride therapy. We reviewed his medication regimen, ensuring adherence to finasteride and tamsulosin. I advised him on the importance of monitoring nocturia and any urinary discomfort, and to report any significant changes. We also discussed the benign nature of his kidney cysts. Follow-up for PSA monitoring is scheduled in nine months, with blood work to be done two weeks prior to the appointment. 04/07/24--Elissa is a 59-year-old French-speaking male who is here for 6 month follow-up. He was referred due to elevated PSA. He had prostate biopsy done which pathology came back benign. He was started on Proscar. The patient is on methadone and testosterone replacement prescribed by his PCP. I have discussed renal ultrasound performed 01/04/2024 kidneys are within normal limits prostatomegaly, PVR acceptable. He is also prescribed tamsulosin and states that his training consultant discussed that the tamsulosin in addition to his other medications is making his blood pressure too low. Will continue to monitor PSA. Discontinue tamsulosin continue Proscar follow-up in 6 months. Imaging--US Retroperitoneal: 01/02/24--bilateral small simple cysts. Enlarged prostate, estimated volume 43.2 mL. Small postvoid bladder residual of 31.5 mL. 10/01/23--Elissa is a 58-year-old male who is here for new patient visit. The patient is French-speaking. Certified trimmer press clippings service used during this visit. Past medical history diabetes, he is on testosterone replacement, he states his PCP prescribes his testosterone. He was followed by [facility] for BPH. He had a recent prostate biopsy on 09/18/2023 due to elevated PSA of 5.3. Review of pathology 12 biopsies were done all came back benign prostatic tissue. The patient has been on tamsulosin 0.4 mg. I have discussed trial of Proscar 5 mg daily. The patient asked about [id number]-[id number] supplements that may be helpful. I discussed use of saw palmetto. Bladder scan PVR 47 mL. Will continue to monitor PSA. Will check a renal bladder ultrasound. Follow-up in 6 months. [facility] Medical History Diverticulosis Osteoarthritis IBS (irritable bowel syndrome) Hyperlipidemia CAD (coronary artery disease) Nonischemic cardiomyopathy CHF (congestive heart failure) Sleep apnea Obesity (BMI 30.0-34.9) Left flank discomfort Upper abdominal pain GERD (gastroesophageal reflux disease) Elevated cholesterol HTN (hypertension) Constipation by delayed colonic transit Bleeding hemorrhoids Diabetes mellitus Asthma Surgical History History of dacryocystorhinostomy H/O foot surgery History of esophagogastroduodenoscopy (EGD) History of tonsillectomy History of sinus surgery History of neck surgery History of carpal tunnel release History of release of tendon History of umbilical hernia repair History of colonoscopy Family History Mother History of colon cancer Brother History of liver cancer Maternal Aunt History of colon cancer Father No problems noted. 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 Review of Systems Const All systems reviewed & are unremarkable except as noted in HPI and below Reports no additional complaints Eyes Reports no additional complaints ENT Reports no additional complaints Card Reports no additional complaints Resp Reports no additional complaints GI Reports no additional complaints Reports as per HPI Musc Reports no additional complaints Skin/Breast Reports system reviewed and no additional complaints, except as documented Neuro Reports no additional complaints Psych Reports no additional complaints Endo Reports no additional complaints Abdi/Lymph Reports no additional complaints Aller/Immun Reports no additional complaints Results Reviewed Results Reviewed: Date of Service: 09/05/24 EXAMINATION: CT ABDOMEN AND PELVIS WITHOUT AND WITH CONTRAST CLINICAL INFORMATION: Unspecified abdominal pain. History of benign prostate hyperplasia. COMPARISON: February 02, 2023. TECHNIQUE: Multidetector volumetric imaging was performed of the abdomen and pelvis before and after the IV administration of 85 mL of Omnipaque 350 strength intravenous contrast. No reported immediate complications. Sagittal and coronal reformatted images were obtained on the technologist's workstation. This CT examination was performed using dose optimization techniques as appropriate, variously including the following: *Automated exposure control *Adjustment of mA and/or kV according to patient size (this includes techniques or standardized protocols for targeted exams where dose is matched to indication/reason for exam; i.e. extremities or head) *Use of iterative reconstruction technique. DLP: 1010 mGy centimeter. FINDINGS: Inadequate IV contrast enhancement of the intra-abdominal solid organs and vascular structures. LUNG BASES: No acute airspace disease or gross pulmonary nodules in the small [id number]-[id number] LIVER, GALLBLADDER, AND BILIARY TREE: Liver measures 15 cm. No intrahepatic biliary ductal dilatation. No pericholecystic fluid collection or gallbladder wall thickening. No extrahepatic biliary ductal dilatation. PANCREAS: No peripancreatic fluid collection. No main pancreatic ductal dilatation. SPLEEN: 9 cm. ADRENAL GLANDS: No nodular lesions. KIDNEYS AND URETERS: Right kidney: No hydronephrosis. No nephrolithiasis. There is a 2.4 cm exophytic isodensity lesion in the midportion which measures 7 Hounsfield units without gross enhancement or septations or nodular component. There is a 3.8 cm lobulated fluid density and cortical medullary junction midportion. Subcentimeter cyst in the lower pole. Normal urinary excretion into the collecting system. Left kidney: No hydronephrosis. No nephrolithiasis. 0.7 cm exophytic fluid density in the midportion lower pole junction. Normal urinary excretion into the collecting system. BLADDER: Fluid-filled. GASTROINTESTINAL TRACT: Scattered diverticula throughout the left hemicolon. Abundant stool. No intestinal obstruction pattern. No ascites. No pneumatosis intestinalis. No concentric wall thickening. Appendix is normal. ABDOMINAL WALL: Status post mesh procedure placement in the perihilar umbilical region. Focal soft tissue contusions both sides beneath the skin of the mid abdomen likely subcutaneous injection related. LYMPH NODES: Prominent in the inguinal region. No lymphadenopathy in the retroperitoneum or mesenteric. VASCULAR: Abdominal aorta wall and iliac arteries without aneurysm or gross dissection. PELVIC VISCERA: Not enlarged. OSSEOUS STRUCTURES: Multilevel thoracolumbar spondylosis and incomplete ankylosis of the lower thoracic spine. 1 mm retrolisthesis L3-4 and L4-5. Vacuum phenomenon at L4-5. IMPRESSION: Bosniak type II cysts, right kidney. Bosniak type I cyst bilaterally. Date of Service: 01/02/24 US RETROPERITONEAL COMPLETE (RENAL) CLINICAL INFORMATION: Benign prostatic hyperplasia without lower urinary tract symptoms. COMPARISON: Ultrasound abdomen complete 06/05/2023. CT abdomen and pelvis 02/02/2023. Ultrasound abdomen complete with elastography 08/25/2022. TECHNIQUE: Real-time imaging of the kidneys and bladder. FINDINGS: RIGHT KIDNEY: 12.7 x 5.9 x 6.0 cm (SAG x AP x TRV). The kidney is normal in size, contour, and echogenicity. Renal cortical thickness is normal. No renal calculi or hydronephrosis. Benign-appearing renal cysts measuring up to 2.6 cm. No follow-up imaging is recommended. LEFT KIDNEY: 11.4 x 6.3 x 5.5 cm (SAG x AP x TRV). The kidney is normal in size, contour, and echogenicity. Renal cortical thickness is normal. No renal calculi or hydronephrosis. Benign-appearing renal cyst measuring 0.9 cm. No follow up imaging is recommended. BLADDER: Well distended and normal. Bilateral ureteral jets are demonstrated. Prevoid bladder volume is 513 mL. Postvoid bladder volume is 31.5 mL. Enlarged prostate, volume 43.2 mL. IMPRESSION: 1. Prostatomegaly. 2. Small postvoid bladder residual of 31.5 mL. Assessment & Plan Assessment & Plan (1) BPH with elevated PSA: Code(s): N40.0 - Benign prostatic hyperplasia without lower urinary tract symptoms; R97.20 - Elevated prostate specific antigen [PSA] Category: Medical (2) Nocturia more than twice per night: Code(s): R35.1 - Nocturia Category: Medical (3) Complex renal cyst: Code(s): N28.1 - Cyst of kidney, acquired Category: Medical Plan Plan - Continue finasteride and tamsulosin for management of elevated PSA and BPH. - Monitor PSA levels with follow-up in nine months; blood work to be done two weeks prior. - Advise patient to monitor nocturia and urinary discomfort, report any significant changes. - Discussed benign nature of kidney cysts; no immediate intervention required. Orders: Orders PSA,Total (Free>4and<10) 8 Months N40.0 - Benign prostatic hyperplasia without lower urinary tract symptoms, R97.20 - Elevated prostate specific antigen [PSA] Medications: New tamsulosin 0.4 mg PO DAILY 90 caps 3RF Refilled finasteride (Proscar) 5 mg PO DAILY 90 tabs 3RF 90 days Patient Instructions: The patient had an opportunity to ask questions regarding treatment plan. The patient expressed understanding and agreement with the above treatment plan. The patient is aware they should contact our office by phone for worsening of their current condition or the appearance of new symptoms. Compliance is encouraged with any medications and followup testing that is ordered. It is a privilege to be allowed the opportunity to participate in the urologic care of your patient. If you have any questions or concerns regarding treatment for the above conditions please do not hesitate to contact me. The office telephone contact is [phone]. This note is constructed in part using voice recognition software. While every effort has been made to ensure accuracy bobbin cleaning machine operator errors may have been included. Yours sincerely, Stephanie Flowers MD Scribe Plan - Not visible on output: Patient was informed and verbally consented to the use of an ambient scribe for clinic note documentation during this visit. Coding Level of Care Code Est Pt Level 4 (96509) Diagnoses BPH with elevated PSA N40.0; R97.20 Nocturia more than twice per night R35.1 Complex renal cyst N28.1
== END 2024-10-06 10:23 | disposition home or self-care (01) ==
LOC: HO.HUSH 08:29
PROVIDERS: PCP Internal Medicine; Visit Provider Urology
DX: N40.0 Benign prostatic hyperplasia without lower urinary tract symptoms (principal); R97.20 Elevated prostate specific antigen [PSA]; R35.1 Nocturia; N28.1 Cyst of kidney, acquired; Z13.9 Encounter for screening, unspecified
CPT/HCPCS: 99214

== ENCOUNTER → 2024-10-06 08:29 | Outpatient (BNVA) | payer MEDICARE, MEDICAID, SELFPAY | PROVIDERS: PCP Internal Medicine; Visit Provider Urology | DX: N40.1 Benign prostatic hyperplasia with lower urinary tract symptoms (principal); R35.1 Nocturia; R97.20 Elevated prostate specific antigen [PSA]; N28.1 Cyst of kidney, acquired | CPT/HCPCS: 81003; 99212 ==

== ENCOUNTER → 2024-12-04 13:37 | Outpatient (REF) | payer MEDICARE, MEDICAID, SELFPAY ==
--- OUTSIDE RECORDS SUMMARY | 2024-01-30 14:30 | XMS_ITS | Encounter Summary ---
Author Organization [facility] Address [address] [place] [address] Care Team Providers Care Arc Welding Machine Operator Name Role Phone Vamshi Man MD Primary Care Provider [phone] Encounter Details Date Type Department Care Team (Late st Contact Info) Description 01/30/2024 2:30 PM EDT Hospital Encounter TH HISTORIC ENCOUNTERS EASTERN CONVERSION ONLY Kash Hammonds MD 175 [facility] 200 [place] [address] Social History Tobacco Use Types Packs/Day Years [...] Care Team (Late st Contact Info) Description 12/08/2024 9:10 AM EDT Office Visit Gastroenterology - [place] 175 [place] [address] [facility] [address] [place] [phone] Idalia Sandoval PA 175 [facility] 200 [place] [address] 01/01/2025 3:30 PM EDT Office Visit Orthopedic Surgery - [place] 250 175 [facility] 250 [place] [phone] Cheng Rea DPM [address] [address] documented as of this encounter Visit Diagnoses Not on filedocumented in this encounter Care Teams Arc Welding Machine Operator Relationship Specialty Start Date End Date Vamshi Man MD [address] [place] [address] PCP - General 10/06/10 documented as of this encounter
--- OUTSIDE RECORDS SUMMARY | 2024-12-04 13:47 | XMS_ITS | Patient Health Record ---
Author Organization [facility] Address [address] [place] [id number] Care Team Providers Care Formation Fracturing Operator Name Role Phone Sumit Clarence Unavailable [phone] Reason For Referral No Information Plan Of Treatment No Information
--- OUTSIDE RECORDS SUMMARY | 2024-12-04 13:47 | XMS_ITS | Clinical Summary ---
Author Organization [facility] Address [address] [place] [address] Care Team Providers Care Fixed Wing Aircraft Flight Engineer Name Role Phone Vmashi Man MD Primary Care Provider [phone] Allergies Active Allergy Reactions Criticality Noted Date [...] 88 06/14/2023 10:56 AM EST Temperature 36.4 C (97.6 F) 06/14/2023 10:56 AM EST Respiratory Rate - - Oxygen Saturation 100% [...] 02/23/2021, Additional history exists Influenza Vaccine (#1) 2024 , 01/20/2020, 01/24/2019, Additional history exists DTap [...] age to complete this topic Care Teams Fixed Wing Aircraft Flight Engineer Relationship Specialty Start Date End Date Vamshi Man MD [address] [place] [id number] PCP - General Internal Medicine 05/02/23
--- OUTSIDE RECORDS SUMMARY | 2024-12-04 13:47 | XMS_ITS | Clinical Summary ---
Author Organization [facility] Address [address] [place] [address] Phone Care Team Providers Care Advanced Practice Nurse Psychotherapist Name Role Phone Vamshi Man MD Primary Care Provider [phone] Allergies Active Allergy Reactions Criticality Noted Date [...] Lateral epicondylitis 11/23/2021 Overview (11/23/2021): s/p Modified [place] procedure, repair of conjoined tendon of extensor [...] today Switched from Losartan to Entresto by Cmo & President recently Renal osteodystrophy 11/23/2021 Diabetes mellitus 01/06/2021 Nephrotic syndrome 01/06/2021 Renal mass 01/06/2021 Overview (07/19/2023): Benign on biopsy 2017 He gets q6 month MRI for pancreatic cyst, confirming simple cysts Snoring 03/18/2004 Obstructive sleep apnea syndrome 03/18/2004 Resolved Problems Problem Noted Date Diagnosed Date Resolved Date Stage 3a chronic kidney disease 11/23/2021 07/19/2023 Immunizations Immunization Administration Dates Next Due H1N1 [...] Visit [facility] [address] [place] [address] Caprice MaryLUIS [address] [address] Health Maintenance Due Date Last [...] 05/25/2022, 09/08/2021, Additional history exists Influenza Vaccine (#1) 2024 2, 01/26/2021, 01/20/2020, Additional history exists Pneumococcal Vaccine: Peds ( 0 to 5 Years) and At-Risk Patients (6 to 49 Years) Discontinued 2005 Procedures Procedure Name Priority Date/Time Associated Diagnosis Comments HEMOGLOBIN A1C (HC) Routine 07/16/2024 9 :59 AM EDT from Last 3 Months or Most Recently Relevant to Health Maintenance Results * (ABNORMAL) Hemoglobin A1C (07/16/2024 9:59 AM EDT) Hemoglobin A1C 6.0(H) %Hb whoactually Comment: Reference Range: [place] [employer] (ADA) Guidelines: <5.7: Decreased risk for diabetes 5.7 - 6.4: Increased risk for diabetes >6.4: Ongoing Hyperglycemia of any cause <7.0: Glycemic control for adults with diabetes Estimated Average Glucose 126 mg/dL [employer] 07/16/2024 9:59 AM EDT 07/16/2024 Caprice Mary LUIS LAB BLOOD ORDERABLES Final Result [facility] [employer] [facility] [place] [phone] from Last 3 Months or Most Recently Relevant to Health Maintenance Insurance Medicare Medicaid [place] Care Teams Advanced Practice Nurse Psychotherapist Relationship Specialty Start Date End Date Vamshi Man MD [address] [place] [address] PCP - General 04/26/20
== END ==
LOC: HO.SL 13:37
PROVIDERS: PCP Internal Medicine; Visit Provider Physician Assistant Medical
DX: G47.19 Other hypersomnia (principal)
CPT/HCPCS: 95806

== ENCOUNTER → 2024-12-04 13:59 | Outpatient (BNV) | payer MEDICARE, MEDICAID, SELFPAY | PROVIDERS: PCP Internal Medicine; Visit Provider Psychiatry & Neurology Neurology | DX: G47.10 Hypersomnia, unspecified (principal) | CPT/HCPCS: 95806 ==

== ENCOUNTER 2024-12-31 12:59 | Outpatient (AMB) | payer MEDICARE, MEDICAID, SELFPAY ==
--- NOTE | 2024-12-31 13:00 | MHC.OFFVIS ---
Vital Signs 12/31/24 13:03 Height 6 ft 2 in Weight 230 lb 2 oz BMI 29.5 Pulse 95 Pulse Source Pulse Oximeter Pulse Oximetry (%) 98 Oxygen Delivery Method Room Air Intake Visit Reasons: 3m follow up Intake Note: Patient presents follow up Sleep. Labs in chart. HST done 12/04 Button And Buckle Maker Required: Yes Button And Buckle Maker Language: Industrial Psychology Teacher Services: Button And Buckle Maker Present Button And Buckle Maker Name: Rosi [id number] Information Interpreted: non-clinical & clinical Accompanied by: Spouse Allergies Penicillins (PENICILLINS) Allergy (Unknown, Verified 12/31/24 13:06) RASH lactose Adverse Reaction (Intermediate, Uncoded 09/17/24 09:09) Abdominal Pain HPI Comments Details: 59 year old r. handed, Citizen Of [place] speaking male with T2DM,is here for a f/u of HST. He is here with his today who helps with history and research analyst on IPAD. HST is pending Dec 05, 2024 PMH September 2024 Pacemaker implantation at [facility]. He feels like he has 4 voltage shocks since device implantation and this causes jolting chest pain. The last one was on Dec and more intense 8/10 pain, he almost started to cry. his urged him to go to ED. He will f/u with the Dr. Lees and has an appt. on Feb 17 is the f/u. Katheryn. He has sleep disturbances trhough out the night, he tried taking Ramelteon and insurance denied it and he had to pay for a 30 day rx and it made him irritable and drowsy the next day so he discontinued it and now is taking the Ambien 10mg po daily. Stopped prazosin. He is going to the bathroom 5-6x a night, takes flomax 0.4mg po but no longer taking the tamsulosin due to hypotension. dr. Stephanie Cuello. He is taking methadone 10mg po only when he needs it for pain. Mood is sad and depressed he has anxiety is better managed with Duloxetine and Wellbutrin along with Alprazolam 1 tablet po BID/ and or PRN it helps alleviate the symptoms. He feels well rested after waking up in the morning despite the snoring and 2 hours of sleep. He is seeing his therapist once a week. He takes naps due to fatigue, and his c/o of loud snoring during naps and through the night. He has headaches daily, and says he has 2 screws in c spine due to pinched nerve and limited ROM and neurosurgeon referral pending for surgical spine. He has dysphagia and inablity to swallow solids with bolus getting stuck in the throat daily. His memory is poor he forgets many tasks. RLS he c/o of r. ankle pain with numbness, tingling and uncomfortable feeling bilaterally. He denies this keeps him up at night. [facility] Medical History Pacemaker Diverticulosis Osteoarthritis IBS (irritable bowel syndrome) Hyperlipidemia CAD (coronary artery disease) Nonischemic cardiomyopathy CHF (congestive heart failure) Sleep apnea Obesity (BMI 30.0-34.9) Left flank discomfort Upper abdominal pain GERD (gastroesophageal reflux disease) Elevated cholesterol HTN (hypertension) Constipation by delayed colonic transit Bleeding hemorrhoids Diabetes mellitus Asthma Surgical History History of dacryocystorhinostomy H/O foot surgery History of esophagogastroduodenoscopy (EGD) History of tonsillectomy History of sinus surgery History of neck surgery History of carpal tunnel release History of release of tendon History of umbilical hernia repair History of colonoscopy Family History Mother History of colon cancer Brother History of liver cancer Maternal Aunt History of colon cancer Father No problems noted. 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 Resp Effort & Inspection: normal respiratory effort and able to speak in complete sentences Neuro Other: limited rom on lateral ROM bilaterally. General: patient oriented x3 and moves all extremities Cranial nerves: Yes Facial sensation intact/muscles of mastication intact, Yes Equal, round and reactive pupils present, Yes Normal accommodation reflex present, Yes Midline tongue present, Yes Ability to bilaterally rotate head present and Yes Ability to bilaterally elevate shoulders present Gait exam (Neuro): Normal gait present Motor exam (neuro): 5/5 motor strength present throughout and Normal motor muscle tone present throughout Coordination: [id number]-il-wjow test normal Psych Appearance: grossly normal Thought process: Normal thought process present Thought content: Normal thought content present Assessment & Plan Assessment & Plan (1) Excessive daytime sleepiness: Code(s): G47.19 - Other hypersomnia Category: Medical (2) Insomnia: Code(s): G47.00 - Insomnia, unspecified Category: Medical Qualifiers: Insomnia type: primary Qualified Code(s): F51.01 - Primary insomnia (3) Loud snoring: Code(s): R06.83 - Snoring Category: Medical Plan HST Dec 05 however pending it being read by the mail technician. Labs pending Difficulty falling asleep, continue ambien for sleep. Excessive daytime sleepiness will check labs to r/o deficiencies. Snoring can use night time snore strips or magnets to open the nares, vicks vapor rub stick, eucalyptus, or menthol. Coding Level of Care Code Est Pt Level 4 (35394) Diagnoses Excessive daytime sleepiness G47.19 Primary insomnia F51.01 Insomnia type: primary Loud snoring R06.83
[2024-12-31 13:03] VITALS: PULSE 95; O2SAT 98; BMI 29.5
--- OUTSIDE RECORDS SUMMARY | 2024-12-31 16:28 | XMS_ITS | Clinical Summary ---
Author Organization [facility] Address [address] [place] [address] Care Team Providers Care Radio Repair Teacher Name Role Phone Vamshi Man MD Primary Care Provider + [phone] Allergies Active Allergy Reactions Criticality Noted Date [...] Screening (Colonoscopy) 2010 COVID-19 Vaccine ( season) 2024 01/30/2023, 11/11/2021, 02/23/2021, Additional history exists Influenza [...] age to complete this topic Care Teams Radio Repair Teacher Relationship Specialty Start Date End Date Vamshi Man MD [address] [place] [address] PCP - General Internal Medicine 05/02/23
--- OUTSIDE RECORDS SUMMARY | 2024-12-31 16:28 | XMS_ITS | Patient Health Record ---
Author Organization [facility] Address [address] [place] [address] Care Team Providers Care Hospital Ward Clerk Name Role Phone Arana Clarence Unavailable [phone] Reason For Referral No Information Plan Of Treatment No Information
--- OUTSIDE RECORDS SUMMARY | 2024-12-31 16:28 | XMS_ITS | Encounter Summary ---
Author Organization [facility] Address [address] [address] Phone Care Team Providers Care Resident Care Coordinator Name Role Phone Vamshi Man MD Primary Care Provider [phone] Reason for Visit * Reason Comments Med Refill Encounter Details Date Type Department Care Team (Late Contact Info) Description 12/09/2024 Refill [facility] [address] [address] Caprice Mary ARNP [address] [address] Type 2 diabetes mellitus with diabetic chronic kidney disease (HCC) Social History Tobacco Use Types Packs/Day Years [...] on file documented as of this encounter Plan of Treatment Upcoming Encounters Date Type Department Care Team (Late st Contact Info) Description 07/23/2025 8:00 AM EDT Office Visit [facility] [address] [address] Caprice Mary ARNP [address] [address] documented as of this encounter Visit Diagnoses Diagnosis Type 2 diabetes mellitus with diabetic chronic kidney disease (HCC) documented in this encounter Care Teams Resident Care Coordinator Relationship Specialty Start Date End Date Vamshi Man MD [facility] [address] [facility] [address] [place], [place] PCP - General 04/26/20 documented as of this encounter
--- OUTSIDE RECORDS SUMMARY | 2024-12-31 16:28 | XMS_ITS | Clinical Summary ---
Author Organization [facility] Address [address] [facility] [address] [place] [address] Phone Care Team Providers Care Medical Technologist Chief Name Role Phone Vamshi Man MD Primary Care Provider [phone] Allergies Active Allergy Reactions Criticality Noted Date [...] Take before meals. 180 tablet 3 4 Active carvedilol (COREG) 3.125 MG tablet Take [...] Impingement syndrome of shoulder region 11/24/19 Overview (11/23/2021): Arthroscopic subacromial decompression with debridement [...] today Switched from Losartan to Entresto by Neuro Ophthalmologist recently Renal osteodystrophy 11/23/2021 Diabetes mellitus 01/06/2021 Nephrotic syndrome 01/06/2021 Renal mass 01/06/2021 Overview (07/19/2023): Benign on biopsy 2017 He gets q6 month MRI for pancreatic cyst, confirming simple cysts Snoring 03/18/2004 Obstructive sleep apnea syndrome 03/18/2004 Resolved Problems Problem Noted Date Diagnosed Date Resolved Date Stage 3a chronic kidney disease 11/23/2021 07/19/2023 Encounters Date Type Department Care Team Description 12/09/2024 Refill [facility] [address] [address] Caprice Mary ARNP Type 2 diabetes mellitus with diabetic chronic kidney disease (HCC) from Last 3 Months Immunizations Immunization Administration [...] Visit [facility] [address] [facility] [address] [place] [address] MaryCapriceLUIS [address] [address] Health Maintenance Due Date Last [...] 9:59 AM EDT) Hemoglobin A1C 6.0(H) %Hb [employer] Comment: Reference Range: [place] Diabetes Association (ADA) Guidelines: <5.7: Decreased risk for diabetes 5.7 - 6.4: Increased risk for diabetes >6.4: Ongoing Hyperglycemia of any cause <7.0: Glycemic control for adults with diabetes Estimated Average Glucose 126 mg/dL [employer] WAKU WAKU ? 07/16/2024 9:59 AM EDT 07/16/2024 Caprice Usman [facility] BLOOD ORDERABLES Final Result [facility] [address] [place] [phone] from Last 3 Months or Most Recently Relevant to Health Maintenance Insurance Medicare Medicaid [place] Medicare Medicaid [place] Care Teams Medical Technologist Chief Relationship Specialty Start Date End Date Vamshi Man MD [address] [place] [address] PCP - General 04/26/20
== END 2024-12-31 14:06 | disposition home or self-care (01) ==
LOC: HO.HSMC 13:00
PROVIDERS: PCP Internal Medicine; Visit Provider Physician Assistant Medical
DX: G47.19 Other hypersomnia (principal); F51.01 Primary insomnia; R06.83 Snoring
CPT/HCPCS: 99214

== ENCOUNTER → 2024-12-31 12:59 | Outpatient (BNVA) | payer MEDICARE, MEDICAID, SELFPAY | PROVIDERS: PCP Internal Medicine; Visit Provider Physician Assistant Medical | DX: G47.19 Other hypersomnia (principal); F51.01 Primary insomnia; R06.83 Snoring | CPT/HCPCS: 99212 ==

== ENCOUNTER 2025-01-14 07:30 | Day surgery (SDC) | payer MEDICARE, MEDICAID, SELFPAY ==
--- OUTSIDE RECORDS SUMMARY | 2024-01-30 14:30 | XMS_ITS | Encounter Summary ---
Author Organization [facility] Address [address] [place] [address] Care Team Providers Care Locum Tenens Hospitalist Name Role Phone Vamshi Man MD Primary Care Provider [phone] Encounter Details Date Type Department Care Team (Late st Contact Info) Description 01/30/2024 2:30 PM EDT Hospital Encounter TH HISTORIC ENCOUNTERS EASTERN CONVERSION ONLY Kash Hammonds MD [address] [place] [address] Social History Tobacco Use Types Packs/Day Years Used Date Smoking Tobacco: Former Smokeless Tobacco: Former Alcohol Use Standard Drinks/Week Comments Not Currently 1 (1 standard drink = 0.6 oz pur e alcohol) Sex and Gender Information Value Date Recorded Sex Assigned at Male 05/16/2024 10:20 AM EST Legal Sex Male 4:52 AM EST Gender Identity Male 05/16/2024 10:20 AM EST Sexual Orientation Straight 05/16/2024 10 :20 AM EST documented as of this encounter Plan of Treatment Upcoming Encounters Date Type Department Care Team (Late st Contact Info) Description 01/01/2025 3:30 PM EDT Office Visit Orthopedic Surgery - [place] [address] [place] [phone] Cheng Rea, DPM 175 [facility] 250 [place] [phone] 01/28/2025 8:[address] [facility] [place] 175 [facility] 350 [place] [phone] Clarence Hunt, PT 02/05/2025 7:30 AM EDT Appointment [facility] 271 [place] [phone] Kash Hammonds MD [address] [place] [phone] 02/17/2025 11:20 AM EST Office Visit [facility] [address] [place] [phone] Manuel Aldrich MD [address] [place] [address] Dr [place] [address] [place] [phone] 03/30/2025 8:30 AM EST Office Visit Gastroenterology - [place] 175 [facility] 175 [facility] 200 [place] [phone] Idalia Sandoval PA 175 [facility] 200 [place], [place] [phone] documented as of this encounter Visit Diagnoses Not on filedocumented in this encounter Care Teams Locum Tenens Hospitalist Relationship Specialty Start Date End Date Vamshi Man MD [address] [place] [address] PCP - General 10/06/10 documented as of this encounter
--- OUTSIDE RECORDS SUMMARY | 2025-01-01 09:30 | XMS_ITS | Encounter Summary ---
Author Organization [facility] Address [address] [place] [address] Care Team Providers Care Package Winder Name Role Phone Vamshi Man MD Primary Care Provider + [phone] Reason for Referral * Consultation (Routine) - Authorized Specialty Diagnoses / Procedures Referred By Mykel haynes Referred To Contact Physical Therapy Diagnoses Cervical spondylosis Cecy Fisher PA [address] [facility], [address] [place] [address] Phone: tel: fax: [facility] [address] [place] [address] Phone: tel: Referral ID Status Reason Start Date Expiration Date Visits Requested Visits Authorized [id number] Authorized Consult and Treat 01/01/2025 01/01/2026 1 1 Reason for Visit * Reason Comments Neck Pain Gastroesophageal ref lux disease, Oral phase dysphagia Trouble swallowing * Consultation (Routine) - Authorized Specialty Diagnoses / Procedures Referred By Mykel haynes Referred To Contact Neurosurgery Diagnoses Gastroesophageal reflux disease, unspecified whether esophagitis present Gastroparesis Oral phase dysphagia Diverticulosis Family history of colon cancer Idalia Sandoval PA [address] [facility] [address] [place] [address] Phone: tel: fax: Hannah Hawley MD [address] [place] [address] Phone: tel: fax: Referral ID Status Reason Start Date Expiration Date Visits Requested Visits Authorized [id number] Authorized Specialty Services Required 12/08/2024 12/08/2025 1 1 Encounter Details Date Type Department Care Team ([facility] Contact Info) Description 01/01/2025 9:30 AM EDT Consult Neurosurgery [facility] [address] [facility] [address] [place] [phone] Cecy Fisher PA 175 [facility] 300 [place] [address] Cervical spondylosis (Primary Dx); Gastroesophageal reflux disease, unspecified whether esophagitis present; Gastroparesis; Oral phase dysphagia; Diverticulosis; Family history of colon cancer Social History Tobacco Use Types Packs/Day Years [...] AM EST documented as of this encounter Last Filed Vital Signs Vital Sign Reading Time Taken Comments Blood Pressure - - Pulse - - Temperature - - Respiratory Rate - - Oxygen Saturation - - Inhaled Oxygen Concentration - - Weight 104 kg (230 lb) 01/01/2025 9:49 AM EDT Height 188 cm (6' 2 ) 01/01/2025 9:49 AM EDT Body Mass Index 29.53 01/01/2025 9:49 AM EDT documented in this encounter Plan of Treatment Upcoming Encounters Date Type Department Care Team (Late Contact Info) Description 01/01/2025 3:30 PM EDT Office Visit Orthopedic Surgery - [place] 250 [address] [facility] 250 [place] [phone] Cheng Rea DPM [address] [facility] 250 [place] [phone] 01/28/2025 8:00 AM EDT Evaluation [facility] [place] 175 [facility] 350 [place] [phone] Clarence Hunt, PT 02/05/2025 7:30 AM EDT Appointment [facility] Endoscopy [address] [place] [phone] Kash Hammonds MD [address] [place] [phone] 02/17/2025 11:20 AM EST Office [facility] [address] [place] [address] [place] [phone] Manuel Aldrich MD [address] [place] [address] Dr [facility] 410 [place] [phone] 03/30/2025 8:30 AM EST Office Visit Gastroenterology - [place] 175 [facility] [address] [facility] 200 [place] [phone] Idalia Sandoval PA 175 [facility] 200 [place] [address] Pending Results Name Type Priority Associated Diagnoses Date /Time XR Cervical Spine 4-5 Views Imaging Routine Cervical spondylosis 01/01/2025 12:36 PM EDT Scheduled Orders Name Type Priority Associated Diagnoses Orde r Schedule XR Cervical Spine 4-5 Views Imaging Routine Cervical spondylosis Expected: 01/01/2025, Expires: 01/01/2026 Scheduled Referrals Name Type Priority Associated Diagnoses Order Schedule Ambulatory referral to Physical Therapy and Athletic Training Outpatient Referral Routine Cervical spondylosis 1 Occurrences starting 01/01/2025 until 01/01/2026 documented as of this encounter Visit Diagnoses Diagnosis Cervical spondylosis- Primary Cervical spondylosis without myelopathy Gastroesophageal reflux disease, unspecified whether esophagitis present Gastroparesis Oral phase dysphagia Dysphagia, oral phase Diverticulosis Diverticulosis of colon (without mention of hemorrhage) Family history of colon cancer Family history of malignant neoplasm of gastrointestinal tract documented in this encounter Historical Medications * This list may reflect changes made after this encounter. testosterone enanthate (DELATESTRYL) 200 mg/mL injection 12/19/2024 nystatin (MYCOSTATIN) cream Apply 1 Application topically. 12/02/2024 levocetirizine (XYZAL) 5 mg tablet 12/22/2024 isosorbide mononitrate (IMDUR) 60 mg 24 hr tablet 12/19/2024 Arnuity Ellipta 100 mcg/actuation blister with device inhaler 12/22/2024 buPROPion XL (WELLBUTRIN XL) 300 mg 24 hr tablet 12/22/2024 brimonidine (ALPHAGAN) 0.2 % ophthalmic solution 12/11/2024 added in this encounter Orders Outpatient Referral Count Last Ordered Date Fir st Ordered Date AMB REFERRAL TO NEUROSURGERY 1 01/01/2025 documented in this encounter Care Teams Package Winder Relationship Specialty Start Date End Date Vamshi Man MD [address] [place] [address] PCP - General 10/06/10 documented as of this encounter
--- OUTSIDE RECORDS SUMMARY | 2025-01-01 12:26 | XMS_ITS | Encounter Summary ---
Author Organization [facility] Address [address] [place] [address] Care Team Providers Care Airplane Pilot Chief Name Role Phone Vamshi Man MD Primary Care Provider [phone] Encounter Details Date Type Department Care Team (Latest Contact Info) Description 01/01/2025 12:26 PM EDT Hospital Encounter [facility] Xray [address] [place] [phone] Cervical spondylosis Social History Tobacco Use Types Packs/Day Years [...] PM EDT Office Visit Orthopedic Surgery - [place] 250 175 [facility] [address] [place] [phone] Cheng Rea, DPM 175 [facility] 250 [place] [phone] 01/28/2025 8:00 AM EDT Evaluation [facility] Rehabilitation - [place] 175 [facility] 350 [place] [phone] Clarence Hunt, ALICIA 02/05/2025 7:30 AM EDT Appointment [facility] Endoscopy 271 [place] [phone] Kash Hammonds MD [address] [place] [phone] 02/17/2025 11:20 AM EST Office Visit [facility] [address] [place] [phone] Manuel Aldrich MD [address] [place] [address] 410 [place] [phone] 03/30/2025 8:30 AM EST Office Visit Gastroenterology - [place] [address] 200 [place] [phone] Idalia Sandoval PA 175 [facility] 200 [place], [place] [phone] Pending Results Name Type Priority Associated Diagnoses Date /Time XR Cervical Spine 4-5 Views Imaging Routine Cervical spondylosis 01/01/2025 12:36 PM EDT Scheduled Orders Name Type Priority Associated Diagnoses Orde r Schedule XR Cervical Spine 4-5 Views Imaging Routine Cervical spondylosis Once for 1 Occurrences starting 01/01/2025 until 01/01/2025 documented as of this encounter Visit Diagnoses Diagnosis Cervical spondylosis Cervical spondylosis without myelopathy documented in this encounter Care Teams Airplane Pilot Chief Relationship Specialty Start Date End Date Vamshi Man MD [address] [place] [address] PCP - General 10/06/10 documented as of this encounter
--- OUTSIDE RECORDS SUMMARY | 2025-01-01 14:22 | XMS_ITS | Encounter Summary ---
Author Organization [facility] Address [address] [address] Phone Care Team Providers Care Eeg Technician Name Role Phone Vamshi Man MD Primary Care Provider [phone] Reason for Visit * Reason Comments Med Refill Encounter Details Date Type Department Care Team (Late Contact Info) Description 12/09/2024 Refill [facility] [address] [address] Caprice Mary ARNP [address] [address] Type 2 diabetes mellitus with [...] Office Visit [facility] [address] [address] Caprice Mary ARNP [address] [address] documented as of this encounter Visit Diagnoses Diagnosis Type 2 diabetes mellitus with diabetic chronic kidney disease (HCC) documented in this encounter Care Teams Eeg Technician Relationship Specialty Start Date End Date Vamshi Man MD [facility] [address] [facility] [address] [place], [place] PCP - General 04/26/20 documented as of this encounter
--- OUTSIDE RECORDS SUMMARY | 2025-01-01 14:22 | XMS_ITS | Encounter Summary ---
Author Organization [facility] Address [address] [place] [address] Care Team Providers Care Body Straightener Name Role Phone Vamshi Man MD Primary Care Provider [phone] Reason for Visit * Reason Onset Date Comments Referral 04/24/2024 Genetics Encounter Details Date Type Department Care Team (Late st Contact Info) Description 04/24/2024 Telephone [facility] - [facility] [address] [facility] [address] [place] [address] Manuel Aldrich MD [address] [place] [address] [place] [address] Social History Tobacco Use Types Packs/Day Years [...] as of this encounter Progress Notes * Mickie Hinds MA - 01/01/2025 10:46 AM EDT Spoke with Wendi at [facility] who stated patient has an [facility] * Mickie Hinds MA - 06/09/2024 2:29 PM EST Received incoming fax from [facility] that adult patients cannot been seen in [facility] practice at this time. [facility] is recruiting for patient to be seen at [facility]. Faxed referral, demo, JUAQUIN,and genetic notes from October 07 to [facility] [phone]. * Mickie Hinds MA - 04/25/2024 11:31 AM EST Faxed over notes, referral, and demo [phone]. * Mickie Hinds MA - 04/24/2024 2:21 PM EST Spoke with Hilda at [facility] attempting to schedule patient however notes, referral, and demo needs to be faxed prior. Will fax over referral, demo, JUAQUIN, and genetics notes from September 2023 to [phone]. Once received [facility] [employer] will reach out to patient to schedule. It takes up to 72 hours. * Manuel Aldrich MD - 04/24/2024 1:21 PM EST Hi, We have requested several times before for the patient to be evaluated by the [facility] genetics program. However, the patient tells me that he has not heard from the [facility] genetic program regarding an appointment. Please contact the [facility] genetics program (phone #[phone]) and request for the patient to be given an appointment for an evaluation with a genetic counselor. Please include the results from the patient's genetic testing from September 2023. documented in this encounter Plan of Treatment Upcoming Encounters Date Type Department Care Team (Late st Contact Info) Description 01/01/2025 3:30 PM EDT Office Visit Orthopedic Surgery - [place] 250 175 [facility] 250 [place] [phone] Cheng Rea DPFranco 175 [facility] 250 [place] [phone] 01/28/2025 8:00 AM EDT Evaluation [facility] 175 [facility] 350 [place] [phone] Clarence Hunt, PT 02/05/2025 7:30 AM EDT Appointment [facility] Endoscopy 271 [place] [phone] Kash Hammonds MD [address] [place] [phone] 02/17/2025 11:20 AM EST Office Visit [facility] [address] [place] [phone] Manuel Aldrich MD [address] [place] [address] Dr [place] [place] [address] 03/30/2025 8:30 AM EST Office Visit Gastroenterology - [place] 175 [facility] 175 [facility] 200 [place] [phone] Idalia Sandoval PA 175 [facility] 200 [place], [place] [phone] documented as of this encounter Visit Diagnoses Not on filedocumented in this encounter Care Teams Body Straightener Relationship Specialty Start Date End Date Vamshi Man MD [address] [place] [address] PCP - General 10/06/10 documented as of this encounter
--- OUTSIDE RECORDS SUMMARY | 2025-01-01 14:22 | XMS_ITS | Clinical Summary ---
Author Organization [facility] Address [address] [facility] [address] [place] [address] Phone Care Team Providers Care Industrial Maintenance Mechanic Name Role Phone Vamshi Man MD Primary Care Provider [phone] Allergies Active Allergy Reactions Criticality Noted Date [...] today Switched from Losartan to Entresto by Ups Driver recently Renal osteodystrophy 11/23/2021 Diabetes mellitus 01/06/2021 [...] 12/09/2024 Refill [facility] [address] [phone] Caprice Mary ARNP Type 2 diabetes mellitus [...] Visit [facility] [address] [facility] [address] [place] [address] MaryCapriceLUIS [address] [address] Health Maintenance Due Date Last [...] 9:59 AM EDT) Hemoglobin A1C 6.0(H) %Hb [employer] Comment: Reference Range: [place] Diabetes Association (ADA) Guidelines: <5.7: Decreased risk for diabetes 5.7 - 6.4: Increased risk for diabetes >6.4: Ongoing Hyperglycemia of any cause <7.0: Glycemic control for adults with diabetes Estimated Average Glucose 126 mg/dL [facility] [employer] 07/16/2024 9:59 AM EDT 07/16/2024 Caprice Usman [facility] BLOOD ORDERABLES Final Result [facility] [employer] [address] [place] [phone] from Last 3 Months or Most Recently Relevant to Health Maintenance Insurance Medicare Medicaid [place] Medicare Medicaid [place] Care Teams Industrial Maintenance Mechanic Relationship Specialty Start Date End Date Vamshi Man MD [address] [place] [address] PCP - General 04/26/20
--- OUTSIDE RECORDS SUMMARY | 2025-01-01 14:22 | XMS_ITS | Clinical Summary ---
Author Organization [facility] Address [address] [place] [address] Care Team Providers Care Business Development Consultant Name Role Phone Vamshi Man MD Primary Care Provider [phone] Social History Tobacco Use Types Packs/Day Years Used Date Smoking Tobacco: Never Assessed Sex and Gender Information Value Date Recorded Sex Assigned at Male 07/23/2024 11:10 AM EDT Legal Sex Male 8:49 AM EDT Gender Identity Male 12/31/2024 6:51 PM EDT Sexual Orientation Don't know 12/31/2024 6: 51 PM EDT Plan of Treatment Upcoming Encounters Date Type Department Care Team (Late st Contact Info) Description 01/06/2025 10:00 AM EDT Telehealth [facility] [address] [place] [address] [phone] Workplace Trainer And Assessor: Zonia Herrera Health Maintenance Due Date Last Done Comments Cologuard 1965 Colon Cancer Screening 1965 Colonoscopy 1965 FOBT / Fit Test 1965 HIV Screening 1965 Hepatitis C Screening 1965 Sigmoidoscopy 1965 Medicare AWV 1966 Alcohol/Substance Use Screening 04/16/2024 Depression Screening and Follow-Up 04/16/2024 Social Drivers of Health Kyra ual Screening 04/16/2024 Influenza Vaccine (#1) 2024 , 01/05/2023, 01/26/2021, Additional history exists DTaP,Tdap,and Td Vaccines (3 - Td or Tdap) 09/30/2027 09/29/2017, 01/18/2012, 2005 RSV Vaccine (60+ years old a nd patients) (1 - 1-dose 75+ series) 2040 Hepatitis B Vaccines Completed 06/04/2003, 12/19/2002, 11/18/2002 Zoster Vaccines Completed 02/06/2018, 11/26/2017 Pneumococcal Vaccine: 50+ Years Completed , 2005 COVID-19 Vaccine Completed 05/06/2024, , 02/23/2021, Additional history exists Insurance [address] [place] [address] MEDICARE [facility] Care Teams Business Development Consultant Relationship Specialty Start Date End Date Vamshi Man MD [address] [place] [id number] PCP - General Internal Medicine 07/22/24
--- OUTSIDE RECORDS SUMMARY | 2025-01-01 14:23 | XMS_ITS | Clinical Summary ---
Author Organization [facility] Address [address] [place] [address] Phone Care Team Providers Care Masseur/Masseuse Name Role Phone Vamshi Man MD Primary Care Provider [phone] Allergies Active Allergy Reactions Criticality Noted Date [...] mouth 2 (two) times a day. Active cholecalciferol (VITAMIN D-3) 25 mcg (1,000 unit) tablet Take 1 tablet (1,000 Units total) by mouth 1 (one) time each day. 11/04/19 Active DULoxetine (CYMBALTA) [address] capsule [...] total) by mouth as needed. 01/06/20 Active methadone (DOLOPHINE) 10 mg tablet Take 1 tablet (10 mg total) by mouth 1 (one) time each day if needed. Active montelukast (SINGULAIR) 10 mg tablet Take 1 tablet (10 mg total) by mouth. 07/29/19 Active naproxen (EC NAPROSYN) 500 mg EC tablet Take 1 tablet (500 mg total) by mouth 1 (one) time each day. 01/04/20 Active senna-docusate (PERICOLACE) 8.6-50 mg per tablet Take 1 tablet by mouth 4 times daily as needed. Active tamsulosin (FLOMAX) 0.4 mg 24 hr capsule Take 1 capsule (0.4 mg total) by mouth 2 (two) times a day. Take 30 mins after same meal every day. 12/15/19 Active testosterone cypionate (DEPO-TESTOTERON E) 200 mg/mL injection Inject as directed See administration instructions. Active zolpidem (AMBIEN) 10 mg tablet Take 1 tablet (10 mg total) by mouth at bedtime as needed. 09/16/19 09 Active metformin HCl (METFORMIN ORAL) Take 750 tablets by mouth 1 (one) time each day. Active Toujeo Max U-300 SoloStar 300 unit/mL (3 mL) CONCENTRATED injection pen Inject 25 Units under the skin at bedtime. 03/12/20 24 Active Mounjaro 15 mg/0.5 mL injection Inject 50 mg under the skin every 7 (seven) days. 05/09/19 25 Active atorvastatin (LIPITOR) 80 mg tablet Take 1 tablet (80 mg total) by mouth 1 (one) time each day. 90 tablet 1 11/12/19 25 Active sacubitriL-valsa rtan (Entresto) 49-51 mg per tablet Take 1 tablet by mouth 2 (two) times a day. 180 tablet 1 11/12/19 25 Active aspirin 81 mg EC tablet Take 1 tablet (81 mg total) by mouth 1 (one) time each day. 90 tablet 3 11/13/19 25 Active carvediloL (COREG) 3.125 mg tablet Take 1 tablet (3.125 mg total) by mouth 2 (two) times a day with meals. 180 tablet 1 11/13/19 25 Active spironolactone (ALDACTONE) 25 mg tabletIndication s:Chronic HFrEF (heart failure with reduced ejection fraction) (CMS/HCC V24, CMS/HCC V28) Take 0.5 tablets (12.5 mg total) by mouth 1 (one) time each day. 90 each 11/26/19 25 026 Active linaCLOtide (Linzess) 290 mcg capsule Take 1 capsule (290 mcg total) by mouth 1 (one) time each day. 90 capsule 1 12/09/19 25 Active pantoprazole (PROTONIX) 40 mg EC tablet Take 1 tablet (40 mg total) by mouth 2 (two) times a day before meals. Do not crush, chew, or split. 180 tablet 1 12/09/19 25 Active ondansetron (ZOFRAN) 4 mg tabletIndication s:Gastroesophage al reflux disease, unspecified whether esophagitis present,Gastropa resis,Oral phase dysphagia,Divert iculosis Take 1 tablet (4 mg total) by mouth 3 (three) times a day. 20 tablet 1 12/09/19 25 025 Active brimonidine (ALPHAGAN) 0.2 % ophthalmic solution 12/12/19 25 Active buPROPion XL (WELLBUTRIN XL) 300 mg 24 hr tablet 12/23/19 25 Active Arnuity Ellipta 100 mcg/actuation blister with device inhaler 12/23/19 25 Active isosorbide mononitrate (IMDUR) 60 mg 24 hr tablet 12/20/19 25 Active levocetirizine (XYZAL) 5 mg tablet 12/23/19 25 Active nystatin (MYCOSTATIN) cream Apply 1 Application topically. 12/03/19 25 Active testosterone enanthate (DELATESTRYL) 200 mg/mL injection 12/20/19 25 Active pantoprazole (PROTONIX) 40 mg EC tablet TAKE 1 TABLET BY MOUTH 2 TIMES DAILY (BEFORE MEALS). 180 tablet 3 05/21/19 25 025 Discontin ued(Reord er) Linzess 290 mcg capsule TAKE 1 CAPSULE BY MOUTH DAILY. 90 capsule 1 05/21/19 25 025 Discontin ued(Reord er) Active Problems Problem Noted Date Diagnosed Date SSS (sick sinus syndrome) (CMS/[facility] V24, CMS/[facility] V28) 09/04/2024 Assessment & Plan (11/11/2024 3:35 PM EDT): Status post recent pacemaker placement. Assessment & Plan (11/04/2024 7:41 PM EDT): The patient has a history of sick sinus syndrome. Because of this, beta-sabiha therapy is currently on hold. The patient has already been evaluated by the EP service and he scheduled to undergo pacemaker placement. I reviewed this with the patient today and he is in agreement to proceed with the pacemaker placement as recommended by the EP service. Left bundle branch block 09/04/2024 Closed avulsion fracture of metatarsal bone of r ight foot 02/27/2024 Closed displaced fracture of cuboid bone of right foot with malunion 02/27/2024 Tendinitis of right ankle 02/27/2024 Esophageal reflux 01/18/2024 Irritable bowel syndrome 01/18/2024 Sleep apnea 01/18/2024 CAD (coronary artery disease) 08/27/2023 Assessment & Plan (11/11/2024 3:35 PM EDT): The patient has a history of coronary artery disease. Currently, the patient denies any chest pain at rest or with exertion. The patient continues on secondary preventive therapy for CAD, including: aspirin, statin. Will continue current therapy. Assessment & Plan (11/04/2024 7:41 PM EDT): The patient has a history of coronary artery disease. Currently, the patient denies any chest pain at rest or with exertion. The patient continues on secondary preventive therapy for CAD, including: aspirin, statin. Will continue current therapy. Assessment & Plan (04/24/2024 12:37 PM EST): [...] the evening. Do not crush or chew. Cardiomyopathy (CMS/HCC V24, CMS/HCC V28) 2022 Assessment & Plan (11/11/2024 3:35 PM EDT): Patient has history of HFrEF. Echocardiogram showing an LVEF of 45 to 50% in the past. Nuclear stress test showing an LVEF of 41%. Cardiac MRI showing LVEF of 47%. PYP scan done in the past which did not reveal any evidence of amyloidosis. Etiology: Probable nonischemic cardiomyopathy Last ischemic work-up: [...] immunofixation study. The patient was evaluated by [place] [facility] in May 2023 due to his elevated serum kappa lambda ratio and they determined that the patient did not have any plasma cell disorder. 4. 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 The patient was referred to the [facility] genetic medicine program. Last documented LVEF: 45 to 50% on echocardiogram done in November 2022; 47% by cardiac MRI done in February 2023 Current symptom classification: NYHA class 2 Guideline directed medical therapy: 1. Beta-blockers: NONE 2. ARNI / GLORIA inhibitor / ARB: Entresto 49/51 mg orally daily 3. MRA: Spironolactone 25 mg orally daily Candidate for ICD or TRANSCRIPTION MANAGER: Not a candidate due to the LVEF Plan of care: Continue current doses of Entresto, and spironolactone. Chronic HFrEF (heart failure with reduced ejection [...] mg orally daily Candidate for ICD or TRANSCRIPTION MANAGER: Not a candidate due to the LVEF Plan of care: 1. Continue current medication regimen. 2. Follow-up chemistry panel. 3. Genetic testing (nonischemic cardiomyopathy panel). 4. Per the patient, he is scheduled to begin treatment for his sleep apnea in September 2023. Would recommend to continue with plans to treat his sleep apnea as directed by the sleep medicine team. 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 The patient was referred to the [facility] genetic medicine program. Last documented LVEF: 1. 45 to 50% on echocardiogram done in November 2022 2. 47% by cardiac MRI done in February 2023 Current symptom classification: NYHA class 2 Guideline directed medical therapy: 1. Beta-blockers: Beta-sabiha therapy is on hold due to bradycardia/sinus pauses 2. ARNI / GLORIA inhibitor / ARB: Entresto 49/51 mg orally daily 3. MRA: Spironolactone 25 mg orally daily 4. SGLT2 inhibitor: None Candidate for ICD or TRANSCRIPTION MANAGER: Not a candidate due to the LVEF Assessment and plan: 1. Continue current medication regimen Assessment & Plan (04/24/2024 12:37 PM EST): [...] immunofixation study. The patient was evaluated by [place] [facility] in May 2023 due to his elevated serum kappa lambda ratio and they determined that the patient did not have any plasma cell disorder. 4. 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 The patient was referred to the [facility] genetic medicine program. Last documented LVEF: [...] SGLT2 inhibitor: None Candidate for ICD or TRANSCRIPTION MANAGER: Not a candidate due to the LVEF [...] was referred for an evaluation with the [place] [facility] service who determined that the patient did not have a plasma cell disorder and therefore does not have AL amyloidosis. The patient's brother has a history of a cardiomyopathy and cardiac arrhythmias and is currently hospitalized in [place] awaiting a cardiac transplant. The patient underwent genetic testing ([employer] comprehensive cardiomyopathy panel) and the test showed that he is a carrier of 1 pathogenic variant in the gene [id number] which is associated with an autosomal recessive primary carnitine deficiency. We refer the patient for an evaluation with the [facility] genetics program but the patient states [...] immunofixation study. The patient was evaluated by [place] [facility] in May 2023 due to his elevated serum kappa lambda ratio and they determined that the patient did not have any plasma cell disorder. 4. 8. 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 The patient was referred to the [facility] genetic medicine program. Last documented LVEF: [...] mg orally daily Candidate for ICD or TRANSCRIPTION MANAGER: Not a candidate due to the LVEF Orders: spironolactone (ALDACTONE) 25 mg tablet; Take 1 tablet (25 mg total) by mouth 1 (one) time each day. Chronic kidney disease, stage 2 (mild) 2 Stage 3a chronic kidney disease (CMS/HCC V24, CM S/HCC V28) 11/23/2021 Spondylosis 11/23/2021 Renal osteodystrophy 11/23/2021 Plantar fasciitis 11/23/2021 Low back pain 11/23/2021 Lateral epicondylitis 11/23/2021 Overview (06/12/2023): s/p Modified [facility] procedure, repair of conjoined tendon of extensor carpi radialis longus and brevis and of partial tear of the lateral collateral ligament 12/29/10- Dr Calin Melgar. Impotence of organic origin 11/23/2021 Impingement syndrome of shoulder region 11/24/19 22 Overview (06/12/2023): Arthroscopic subacromial decompression with debridement [...] current antihypertensive medication regimen. Assessment & Plan (11/11/2024 3:35 PM EDT): Patient's blood pressure today 102/68. He continues to have episodes of lightheadedness and dizziness. He recently reduced his isosorbide to 30 mg daily however the dizziness continues. I have asked him to stop the isosorbide altogether at this point and we will see if this helps with his dizziness symptoms. He is on Entresto 49/51 mg daily as well as spironolactone. If lightheadedness and dizziness continue I would consider reducing his spironolactone to 12.5 mg once a day or possibly decreasing his Entresto to a lower dose. Assessment & Plan (11/04/2024 7:41 PM EDT): The patient has a history of arterial [...] current antihypertensive medication regimen. Mixed hyperlipidemia 02/17/2021 Assessment & Plan (11/11/2024 3:35 PM EDT): Patient is history of hyperlipidemia. Continue with atorvastatin as prescribed. Renal mass 01/06/2021 Nephrotic syndrome 01/06/2021 Gastroesophageal [...] Problem Noted Date Diagnosed Date Resolved Date Palpitations 03/28/2024 11/11/2024 Assessment & Plan (03/28/2024 1:13 PM EST): The patient continues to have episodes of palpitations. He recently completed a 30-day ambulatory quality assurance monitor final. He had 38 symptomatic events during the monitoring period but during these events, the patient was noted to be in a normal sinus rhythm. No evidence of sustained arrhythmias. Orders: Case Request EP Lab: Loop recorder insertion Near syncope 03/28/2024 11/11/2024 Assessment & Plan (03/28/2024 1:13 PM EST): The patient states that he continues to have episodes of dizziness. He denies any actual syncope. During a recent 30-day ambulatory quality assurance monitor final, the patient was found to have a [...] the case with the electrophysiology service (Dr. Cheung) and we reviewed the monitor EKG strips. Dr. Cheung agreed that the episode noted was consistent with an atrial run with aberrant conduction and less likely a VT. He also agreed that we should continue the current dose of carvedilol given evidence of a 3-second pause with a higher dose of the carvedilol. Dr. Cheung also recommended for the patient to undergo an ILR placement for continued monitoring of his heart rhythm in order to exclude any episodes of arrhythmias that may be contributing to his symptoms. As such, we will arrange for the patient to undergo an ILR monitor placement with Dr. Cheung. Orders: Case Request EP Lab: Loop recorder insertion Palpitations 03/30/2023 11/11/2024 Overview (06/12/2023): Last Assessment & Plan: The patient has been experiencing episodes of palpitations. We will order a Holter monitor to evaluate for any underlying arrhythmias as a cause of her symptoms. Assessment & Plan (04/24/2024 12:37 PM EST): The patient has had episodes of palpitations in the past. He has also had episodes of near syncope in the past. 30-day ambulatory quality assurance monitor final showed instances of high-grade AV block with a pause of up to 3 seconds. As a result of this, his carvedilol was decreased from 6.25 mg orally twice a day down to 3.5 mg orally twice a day. After the changing the dose of the beta-sabiha, no further episodes of high-grade AV block or sinus pauses were noted on the ambulatory quality assurance monitor final. Of note, there was no evidence of any sustained arrhythmias. The patient has continued to have occasional episodes of palpitations. Case discussed with the electrophysiology service who recommended an ILR placement. The patient will undergo an ILR placement by Dr. Cheung on 05/16/2024. Chest pain 03/30/2023 03/28/2024 Overview (06/12/2023): Last [...] CT scan is scheduled for 06/20/2023 at [facility]. In the meantime, the patient will continue [...] Encounters Date Type Department Care Team Description 01/01/2025 12:26 PM EDT Hospital Encounter [facility] [address] [place] [phone] Cervical spondylosis 01/01/2025 9:30 AM EDT Consult Neurosurgery [place] [facility] [address] [place] [phone] Cecy Fisher PA Cervical spondylosis (Primary Dx); Gastroesophageal reflux disease, unspecified whether esophagitis present; Gastroparesis; Oral phase dysphagia; Diverticulosis; Family history of colon cancer 12/08/2024 9:10 AM EDT Office Visit Gastroenterology [facility] [address] [facility] 175 [facility] [address] [place] [phone] Idalia Sandoval PA Gastroesophageal reflux disease, unspecified whether esophagitis present (Primary Dx); Gastroparesis; Oral phase dysphagia; Diverticulosis; Family history of colon cancer 11/25/2024 10:46 AM EDT - 11/25/2024 2:16 PM EDT Emergency [facility] Emergency [address] [place] [address] Peyman Lake MD Lightheadedness (Primary Dx); Chronic HFrEF (heart failure with reduced ejection fraction) (CMS/HCC V24, CMS/HCC V28) Discharge Disposition: Home or Self Care 11/19/2024 2:00 PM EDT Office Visit Orthopedic Surgery - [place] [address] [facility] [address] [place] [phone] Cheng Rea DPM Tendinitis of left ankle (Primary Dx); Tendinitis of right ankle; Plantar fascial fibromatosis 11/12/2024 Telephone [facility] [address] [facility] [address] [place] [address] Manuel Aldrich MD 11/11/2024 10:10 AM EDT Office Visit [facility] [address] [facility] [address] [place] [address] Melly Kern NP Primary hypertension (Primary Dx); Chronic HFrEF (heart failure with reduced ejection fraction) ([facility] V24, CMS/[facility] V28); SSS (sick sinus syndrome) ([facility] V24, CMS/[facility] V28); Mixed hyperlipidemia; Cardiomyopathy, unspecified type (CMS/HCC V24, CMS/HCC V28); Coronary artery disease involving torres martinez coronary artery of torres martinez heart without angina pectoris 11/06/2024 Telephone [facility] [address] [place] [address] Cecy De Luna MA 11/05/2024 2:00 PM EDT Ancillary Procedure [facility] [address] [place] [address] 10/29/2024 10:15 AM EDT Ancillary Procedure [facility] [address] [place] [address] 10/27/2024 1:00 PM EDT Ancillary Procedure [facility] [address] [place] [address] Wound dehiscence (Primary Dx); Encounter for adjustment or management of cardiac device 10/20/2024 9:20 AM EDT Ancillary Procedure [facility] [address] [place] [address] 10/13/2024 1:00 PM EDT - 10/13/2024 2:00 PM EDT Surgery [facility] [place] [address] [place] [address] Musa Cheung MD Loop recorder removal [[id number] (CPT )] 10/13/2024 11:52 AM EDT - 10/13/2024 11:59 PM EDT Hospital Encounter [facility] [address] [place] [address] Musa Cheung MD SSS (sick sinus syndrome) ([facility] V24, [facility] V28) (Primary Dx); Left bundle branch block; Near syncope; Palpitations Discharge Disposition: Home or Self Care 10/07/2024 1:30 AM EDT Ancillary Procedure [facility] [address] [facility] [address] [place] [address] from Last 3 Months Immunizations Name Administration Dates Next Due H1N1 Inj 02/16/2009 Hepatitis A Adult (Havrix; V aqta) 19yo and older 06/02/2004,02/21/2003 Hepatitis B (Tjilysf-D-Fywht , Recombivax HB-Adult) 19yo and older 06/04/2003,12/19/2002,11/18/2002 [...] DX:Chronic constipation Diabetes mellitus type 2, uncomplicated ([facility] V24, [facility] V28) 04/05/2017 DX:Diabetes mellitus type 2, uncomplicated ([facility]) Dysphagia 06/21/2016 DX:Dysphagia Esophageal reflux 11/19/2017 [...] CMS/HCC V24, CMS/HCC V28) DX:Gastroparesis diabeticoru m ([facility]) Hx of syphilis DX:Hx of syphili s Non-alcoholic fatty liver disease DX:Non-alcoholic fatty liver disease DHARA (obstructive sleep apnea) DX :DHARA (obstructive sleep apnea) 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 DX:Osteoarthritis of cervica l and lumbar spine Plantar fasciitis DX:Plantar fas ciitis Shoulder impingement syndrome, right DX:Shoulder impingement syndrome, right Snoring DX:Snoring Arthritis High blood pressure Social History Tobacco Use Types Packs/Day Years [...] Sign Reading Time Taken Comments Blood Pressure 98/60 12/08/2024 9:14 AM EDT Pulse 92 12/08/2024 9:14 AM EDT Temperature 36.6 C (97.9 F) 11/25/2024 12:56 PM EDT Respiratory Rate 16 11/25/2024 12:56 PM EDT Oxygen Saturation 96% 12/08/2024 9:14 AM EDT Inhaled Oxygen Concentration - - Weight 104 kg (230 lb) 01/01/2025 9:49 AM EDT Height 188 cm (6' 2 ) 01/01/2025 9:49 AM EDT Body Mass Index 29.53 01/01/2025 9:49 AM EDT Plan of Treatment Upcoming Encounters Date Type Department Care Team (Late st Contact Info) Description 01/01/2025 3:30 PM EDT Office Visit Orthopedic Surgery - [place] [address] [facility] [address] [place] [phone] Cheng Rea DPFranco [address] [facility] [address] [place] [phone] 01/28/2025 8:00 AM EDT Evaluation [facility] [address] [facility] [address] [place] [phone] Clarence Hunt, PT 02/05/2025 7:30 AM EDT Appointment [facility] [address] [place] [phone] Kash Hammonds MD [address] [place] [phone] 02/17/2025 11:20 AM EST Office Visit [facility] [address] [place] [phone] Manuel Aldrich MD [address] [place] [address] [address] [place] [address] 03/30/2025 8:30 AM EST Office Visit Gastroenterology - [place] 175 [facility] 175 [facility] [address] [place] [phone] Idalia Sandoval PA [address] [facility] [address] [place], [place] [phone] Health Maintenance Due Date Last Done Comments Diabetes: Annual Foot Exam 1975 Diabetes: Annual Retina Eye Exam 1975 Cholesterol Screening (Lipid Panel) 03/25/2022 HIV Screening 03/25/2022 Hepatitis C Screening 03/25/2022 Medicare Annual Wellness Visit 03/25/2022 Social Influencers of Health Screening 03/25/2022 Diabetes: Blood Sugar Control Test (HGBA1C) 11/22/2022 05/25/2022 Depression Screening 04/16/2024 COVID-19 Vaccine (7 - Pfizer risk season) 2024 05/06/2024, 01/30/2023, 11/11/2021, Additional history exists Diabetes: Annual Urine Albumin-Creatinine Ratio (uACR) 07/16/2025 07/16/2024 Diabetes: Annual GFR (Glomerular Filtration Rate) 11/25/2025 11/25/2024, 09/29/2024, 05/12/2024, Additional history exists Hypertension/CHF/CAD Annual BMP Blood Test 11/25/2025 11/25/2024, 09/29/2024, 05/12/2024, Additional history exists DTaP,Tdap,and Td Vaccines (4 - Td or Tdap) 09/30/2027 09/29/2017, 01/18/2012, 2005 Colorectal Cancer Screening: Colonoscopy 02/11/2030 02/12/2020 RSV Immunization Adult Patients (1 - 1-dose 75+ series) 2040 Hepatitis B Vaccines Completed 06/04/2003, 12/19/2002, 11/18/2002 Hepatitis A Vaccines Completed 06/02/2004, 02/22/20 03 Zoster Vaccines Completed 02/06/2018, 11/26/2017 Pneumococcal Vaccine: 50+ Years Completed 02/16/2022, 2005 Influenza Vaccine Completed 12/17/2024, , 01/05/2023, Additional history exists HIB Vaccines Aged Out [...] this topic Medical Devices Implanted Type Area [place] Smearer Device Identifier Shelf Expiration Date Model / Serial / Lot Lead Ipg Select Secure 69cm Catheter Delivered Lead - [id number] - [id number] Implanted:Qty: 1 on 10/13/2024 by Musa Cheung MD at [facility] Cardiac Lead N/A: Heart [employer] - CARDIAC RHYTH-[facility] [id number] 07/10/2026 [id number] / [id number] / Lead Pcmkr Capsure Novus 52cm - [id number] - [id number] Implanted:Qty: 1 on 10/13/2024 by Musa Cheung MD at [facility] Cardiac Lead N/A: Heart [employer] - CARDIAC RHY[employer]-[facility] [id number] 12/19/2025 [id number] / [id number] / Monitor Cardiac Insert Lux Dx Ii+ - [id number] - [id number] Implanted:Qty: 1 on 05/16/2024 by Musa Cheung MD at [facility] Cardiac Loop Recorder Left: Chest [employer] MGMT [id number] 09/12/2025 [id number] / [id number] / Pacemaker Cardiac Milagros Xt Dr Arriola - [id number] - [id number] Implanted:Qty: 1 on 10/13/2024 by Musa Cheung MD at [facility] Cardiac Pacemaker Chest Wall [employer] - CARDIAC [employer]-CRD [id number] 10/11/2025 W1DR01 / [id number] / Medt-Card Cisco Xt Dr Arriola [id number] [id number] Implanted:09/16 (Quantity not on file) Cardiac Pacemaker MEDTRONIC - CARDIAC RHYTH-CRDM MILAGROS XT DR MRI W1DR01 / [id number] / Medt-Card Milagros Xt Dr Mri [id number] Implanted:09/16 (Quantity not on file) Cardiac Pacemaker MEDTRONIC - CARDIAC RHYTH-CRDM MILAGROS XT DR ARRIOLA / [id number] / Hemostat Absorb 1x2 Surgicel Fibrillar - [id number] - [id number] Implanted:Qty: 1 on 10/13/2024 by Musa Cheung MD at [facility] Hemostasis Chest Wall [employer] [id number] 09/13/2026 1961 / [id number] / Procedures Procedure Name Priority Date/Time Associated Diagnosis Comments ECG ANNOTATED 11/26/2024 ECG 12-LEAD STAT 11/25/2024 11:12 AM EDT CBC WITH AUTO DIFFERENTIAL STAT 11/25/2024 9:14 AM EDT MAGNESIUM STAT 11/25/2024 9:14 AM EDT BASIC METABOLIC PANEL STAT 11/25/2024 9:14 AM EDT CBC AND DIFFERENTIAL STAT 11/25/2024 9:14 AM EDT INJECTION TENDON OR LIGAMENT Routine 11/19/2024 2:00 PM EDT Tendinitis of left ankle CARDIAC DEVICE CHECK- REMOTE- MURJ Routine 10/29/2024 10:14 AM EDT CARDIAC DEVICE CHECK- IN CLINIC- MURJ Routine 10/27/2024 2:30 PM EDT Encounter for adjustment or management of cardiac device CULTURE WOUND WITH GRAM STAIN STAT 10/27/2024 1:34 PM EDT Encounter for adjustment or management of cardiac device Wound dehiscence CARDIAC DEVICE CHECK- REMOTE- MURJ Routine 10/20/2024 9:16 AM EDT XR CHEST 1 VIEW STAT 10/13/2024 5:31 PM EDT INSERT PPM DUAL Routine 10/13/2024 4:25 PM EDT Left bundle branch block LOOP RECORDER REMOVAL Routine 10/13/2024 4:25 PM EDT Left bundle branch block CARDIAC DEVICE CHECK- REMOTE- MURJ Routine 10/07/2024 1:26 AM EDT HM COLONOSCOPY Routine 02/12/2020 from Last 3 Months or Most Recently Relevant to Health Maintenance Results * ECG-Annotated (11/26/2024) us Provider Onbase ECG ORDERABLES Final Result * ECG 12 lead (11/25/2024 11:12 AM EDT) Ventricular Rate ECG 71 BPM GEMUSE Atrial Rate 71 BPM GEMUSE P-R Interval 176 ms GEMUSE QRS Duration 106 ms GEMUSE Q-T Interval 402 ms GEMUSE QTc 436 ms GEMUSE P Wave [place] 24 degrees GEMUSE R [place] 0 degrees GEMUSE T [place] 58 degrees GEMUSE ECG Interpretation Normal sinus rhythm When compared with ECG of 04-SEP-2024 13:42, Premature atrial complexes are no longer Present Confirmed by MARTI CHEUNG ([id number]) on 11/25/2024 11:48:01 PM GEMUSE 11/25/2024 11:1 2 AM EDT 11/25/2024 11:48 PM EDT Ayan Miranda MD ECG ORDERABLES Final Resul t GEMUSE * (ABNORMAL) CBC auto differential (11/25/2024 9:14 AM EDT) WBC 8.2 4.8 - 10.8 K/[facility] LAB HEMETOLOGY METHOD 11/25/2024 9:28 AM EDT [facility] RBC 4.80 4.50 - 5.50 M/mcL LAB HEMETOLOGY METHOD 11/25/2024 9:28 AM [facility] Hemoglobin 13.7 13.5 - 17.5 g/dL LAB HEMETOLOGY METHOD 11/25/2024 9:28 AM [facility] Hematocrit 40.3(L) 42.0 - 54.0 % LAB HEMETOLOGY METHOD 11/25/2024 9:28 AM [facility] MCV 84.7 79.0 - 98.0 FL LAB HEMETOLOGY METHOD 11/25/2024 9:28 AM [facility] MCH 28.8 27.0 - 32.0 pcg LAB HEMETOLOGY METHOD 11/25/2024 9:28 AM [facility] MCHC 34.0 32.0 - 37.0 g/dL LAB HEMETOLOGY METHOD 11/25/2024 9:28 AM [facility] RDW 13.8 11.0 - 15.0 % LAB HEMETOLOGY METHOD 11/25/2024 9:28 AM [facility] Platelets 192 130 - 400 K/mcL LAB HEMETOLOGY METHOD 11/25/2024 9:28 AM [facility] MPV 8.9 7.0 - 11.0 FL LAB HEMETOLOGY METHOD 11/25/2024 9:28 AM [facility] NRBC 0.0 <1.0 % LAB HEMETOLOGY METHOD 11/25/2024 9:28 AM [facility] NRBC Absolute 0.00 <0.10 K/mcL LAB HEMETOLOGY METHOD 11/25/2024 9:28 AM [facility] Neutrophils Relative 59.5 % LAB HEMETOLOGY METHOD 11/25/2024 9:28 AM [facility] Lymphocytes Relative 28.6 % LAB HEMETOLOGY METHOD 11/25/2024 9:28 AM [facility] Monocytes Relative 9.6 % LAB HEMETOLOGY METHOD 11/25/2024 9:28 AM [facility] Eosinophils Relative 1.5 % LAB HEMETOLOGY METHOD 11/25/2024 9:28 AM [facility] Basophils Relative 0.6 % LAB HEMETOLOGY METHOD 11/25/2024 9:28 AM [facility] Immature Granulocytes Relative 0.2 % LAB HEMETOLOGY METHOD 11/25/2024 9:28 AM [facility] Neutrophils Absolute 4.90 1.50 - 7.00 K/mcL LAB HEMETOLOGY METHOD 11/25/2024 9:28 AM [facility] Lymphocytes Absolute 2.35 1.00 - 5.00 K/mcL LAB HEMETOLOGY METHOD 11/25/2024 9:28 AM [facility] Monocytes Absolute 0.79 0.20 - 1.00 K/mcL LAB HEMETOLOGY METHOD 11/25/2024 9:28 AM [facility] Eosinophils Absolute 0.12 0.00 - 0.50 K/mcL LAB HEMETOLOGY METHOD 11/25/2024 9:28 AM [facility] Basophils Absolute 0.05 0.00 - 0.20 K/mcL LAB HEMETOLOGY METHOD 11/25/2024 9:28 AM [facility] Immature Granulocytes Absolute 0.02 0.00 - 0.03 K/mcL LAB HEMETOLOGY METHOD 11/25/2024 9:28 AM [facility] Blood Venous blood specimen / Unknown Venipuncture / Unknown 11/25/2024 9:14 AM EDT 11/25/2024 9:21 AM EDT us Ayan Miranda MD LAB BLOOD ORDERABLES Final Result Performing Organization Address [facility]/ZIP Co de Phone Number [facility] [address] [place] [address], [place] [phone] * (ABNORMAL) Magnesium (11/25/2024 9:14 AM EDT) Magnesium 1.8(L) 1.9 - 2.6 mg/dL LAB CHEMISTRY METHOD 11/25/2024 9:49 AM EDT [facility] Blood Venous blood specimen / Unknown Venipuncture / Unknown 11/25/2024 9:14 AM EDT 11/25/2024 9:21 AM EDT Ayan Miranda MD LAB BLOOD ORDERABLES Final Result Performing Organization Address [facility] Co de Phone Number [facility] [address] [place] [address], [place] [phone] * (ABNORMAL) Basic metabolic panel (11/25/2024 9:14 AM EDT) Sodium 138 133 - 145 mmol/L LAB CHEMISTRY METHOD 11/25/2024 10:00 AM [facility] Potassium 3.5 3.5 - 5.5 mmol/L LAB CHEMISTRY METHOD 11/25/2024 10:00 AM [facility] Chloride 107 96 - 110 mmol/L LAB CHEMISTRY METHOD 11/25/2024 10:00 AM [facility] CO2 28 21 - 32 mmol/L LAB CHEMISTRY METHOD 11/25/2024 10:00 AM [facility] Anion Gap 3 3 - 11 LAB CHEMISTRY METHOD 11/25/2024 10:00 AM [facility] Glucose 127(H) 70 - 100 mg/dL LAB CHEMISTRY METHOD 11/25/2024 10:00 AM [facility] BUN 12 5 - 25 mg/dL LAB CHEMISTRY METHOD 11/25/2024 10:00 AM EDT [facility] Creatinine 0.90 0.70 - 1.30 mg/dL LAB CHEMISTRY METHOD 11/25/2024 10:00 AM EDT [facility] eGFR 98 >=60 mL/min/1. 73m2 LAB CHEMISTRY METHOD 11/25/2024 10:00 AM EDT [facility] Comment:Calculation based on the Chronic Kidney Disease Epidemiology Collaboration (CKD-EPI) equation refit without adjustment for race. BUN/Creatinine Ratio 13.3 LAB CHEMISTRY METHOD 11/25/2024 10:00 AM T [facility] Calcium 8.8 8.5 - 10.5 mg/dL LAB CHEMISTRY METHOD 11/25/2024 10:00 AM T [facility] Blood Venous blood specimen / Unknown Venipuncture / Unknown 11/25/2024 9:14 AM EDT 11/25/2024 9:21 AM EDT Ayan Miranda MD LAB BLOOD ORDERABLES Final Result [facility] [address] [place] [address], * Injection tendon or ligament (11/19/2024 2:00 PM EDT) Narrative Cheng Rea DPM - 11/19/2024 2:00 PM EDT Cheng Rea DPM 11/19/2024 5:23 PM Injection tendon or ligament Indications: pain Details: 25 G needle Medications: 0.5 mL lidocaine (PF) 1 %; 20 mg triamcinolone acetonide 40 mg/mL Informed Consent: Site: Foot ligament tendon Cheng Rea DPM IN CLINIC/BEDSIDE ORDERAB LES Final Result * Cardiac device check - Remote- MURJ (10/29/2024 10:14 AM EDT) Only the most recent of3 resultswithin the time period is included. Date Time Interrogation Session [id number] CV DEVICE CHECK Type Interrogation Session Remote CV DEVICE CHECK Implantable Pulse Generator [place] Hat Smearer MDT CV DEVICE CHECK Implantable Pulse Generator Type IPG CV DEVICE CHECK Implantable Pulse Generator Model Milagros XT DR MRI W1DR01 CV DEVICE CHECK Implantable Pulse Generator Serial Number [id number] CV DEVICE CHECK Implantable Pulse Generator Implant Date 20241013 CV DEVICE CHECK Battery Remaining Longevity 180.0 CV DEVICE CHECK Battery Voltage 3.180 CV D EVICE CHECK Battery HAND GLASS CUTTER Trigger 2.625 CV DEVICE CHECK Battery Status Middle of Service CV DEVICE CHECK Anthony Statistic RA Percent Paced 0.00 CV DEVICE CHECK Anthony Statistic RV Percent Paced 0.00 CV DEVICE CHECK Atrial Tachy Statistic AT/AF [place] Percent 0.00 CV DEVICE CHECK Lead Channel Sensing Intrinsic Amplitude 3.125 CV DEVICE CHECK Lead Channel Setting Sensing Sensitivity 0.30 CV DEVICE CHECK Lead Channel Impedance Value 437 CV DEVICE CHECK Lead Channel Pacing Threshold Amplitude 0.750 CV DEVICE CHECK Lead Channel Pacing Threshold Pulse Width 0.4 CV DEVICE CHECK Lead Channel RA Pacing Threshold Date 2024-10-21 CV DEVICE CHECK Lead Channel Setting Pacing Amplitude 3.500 CV DEVICE CHECK Lead Channel Setting Pacing Pulse Width 0.4 CV DEVICE CHECK Lead Channel Sensing Intrinsic Amplitude 23.375 CV DEVICE CHECK Lead Channel Setting Sensing Sensitivity 0.90 CV DEVICE CHECK Lead Channel Impedance Value 665 CV DEVICE CHECK Lead Channel Pacing Threshold Amplitude 0.625 CV DEVICE CHECK Lead Channel Pacing Threshold Pulse Width 0.4 CV DEVICE CHECK Lead Channel RV Pacing Threshold Date 2024-10-22 CV DEVICE CHECK Lead Channel Setting Pacing Amplitude 3.500 CV DEVICE CHECK Lead Channel Setting Pacing Pulse Width 0.4 CV DEVICE CHECK Anthony Setting Mode (NBG Code) AAI<=>DDD CV DEVICE CHECK Anthony Setting Lower Rate Limit 60 CV DEVICE CHECK Anthony Setting AT Mode Switch Rate 171 CV DEVICE CHECK Anthony Setting Maximum Tracking Rate 130 CV DEVICE CHECK Anthony Setting Maximum Sensor Rate 130 CV DEVICE CHECK Anthony Setting PAV Delay 180 CV DEVICE CHECK Anthony Setting CURTIS Delay 150 CV DEVICE CHECK Zone Setting Type Category AT/AF CV DEVICE CHECK Rate 171 CV DEVICE CHECK Therapies Some Rx Off CV DEVIC E CHECK Zone Setting Status Monitor CV DEVICE CHECK Zone ID 2 CV DEVICE CHECK Zone Setting Type Category VT CV DEVICE CHECK Rate 150 CV DEVICE CHECK Zone Setting Status ENABLED CV DEVICE CHECK Zone ID 6 CV DEVICE CHECK Date of Service 2025-01-13 CV DEVICE CHECK Anatomical Region Laterality Modality Device Interroga tion 10/22/2024 9:37 PM EDT Impressions 10/29/2024 7:12 AM EDT Normal Remote: No Events * Normal Device Function * Alerts or events: None * Battery: , * Sensing, impedance and thresholds reviewed * Programmed parameters reviewed * Presenting rhythm reviewed * Heart Rate Histograms reviewed * No significant changes noted Normal Remote: No Events * Normal Device Function * Alerts or events: None * Battery: OK, 15.00 yrs * Sensing, impedance and thresholds reviewed * Programmed parameters reviewed * Presenting rhythm reviewed * Heart Rate Histograms reviewed * No significant changes noted Narrative Procedure Note Musa Cheung MD - 10/29/2024 IMPRESSION: Normal Remote: No Events * Normal Device Function * Alerts or events: None * Battery: , * Sensing, impedance and thresholds reviewed * Programmed parameters reviewed * Presenting rhythm reviewed * Heart Rate Histograms reviewed * No significant changes noted Normal Remote: No Events * Normal Device Function * Alerts or events: None * Battery: OK, 15.00 yrs * Sensing, impedance and thresholds reviewed * Programmed parameters reviewed * Presenting rhythm reviewed * Heart Rate Histograms reviewed * No significant changes noted Musa Cheung MD CV IMPLANTABLE CARDIAC DEV ICE PROCEDURES Final Result * CARDIAC DEVICE CHECK- IN CLINIC- [facility] (10/27/2024 2:30 PM EDT) Date Time Interrogation Session [id number] CV DEVICE CHECK Implantable Pulse Generator [place] Hat Smearer CASSY CV DEVICE CHECK Implantable Pulse Generator Type IPG CV DEVICE CHECK Implantable Pulse Generator Model Milagros XT DR ARRIOLA CV DEVICE CHECK Implantable Pulse Generator Serial Number [id number] CV DEVICE CHECK Implantable Pulse Generator Implant Date 20241013 CV DEVICE CHECK Battery Status Middle of Service CV DEVICE CHECK Atrial Tachy Statistic AT/AF [place] Percent 0.10 CV DEVICE CHECK Lead Channel Sensing Intrinsic Amplitude 3.500 CV DEVICE CHECK Lead Channel Setting Sensing Sensitivity 0.30 CV DEVICE CHECK Lead Channel Impedance Value 418 CV DEVICE CHECK Lead Channel Pacing Threshold Amplitude 0.630 CV DEVICE CHECK Lead Channel Pacing Threshold Pulse Width 0.4 CV DEVICE CHECK Lead Channel RA Pacing Threshold Date 2024-10-27 CV DEVICE CHECK Lead Channel Setting Pacing Amplitude 3.500 CV DEVICE CHECK Lead Channel Setting Pacing Pulse Width 0.4 CV DEVICE CHECK Lead Channel Sensing Intrinsic Amplitude 18.900 CV DEVICE CHECK Lead Channel Setting Sensing Sensitivity 0.90 CV DEVICE CHECK Lead Channel Impedance Value 646 CV DEVICE CHECK Lead Channel Pacing Threshold Amplitude 0.750 CV DEVICE CHECK Lead Channel Pacing Threshold Pulse Width 0.4 CV DEVICE CHECK Lead Channel RV Pacing Threshold Date 2024-10-27 CV DEVICE CHECK Lead Channel Setting Pacing Amplitude 3.500 CV DEVICE CHECK Lead Channel Setting Pacing Pulse Width 0.4 CV DEVICE CHECK Anthony Setting Mode (NBG Code) AAI<=>DDD CV DEVICE CHECK Anthony Setting Lower Rate Limit 60 CV DEVICE CHECK Anthony Setting AT Mode Switch Rate 171 CV DEVICE CHECK Anthony Setting Maximum Tracking Rate 130 CV DEVICE CHECK Anthony Setting Maximum Sensor Rate 130 CV DEVICE CHECK Zone Setting Type Category AT/AF CV DEVICE CHECK Therapies All Rx Off CV DEVICE CHECK Zone Setting Status Monitor CV DEVICE CHECK Zone ID 2 CV DEVICE CHECK Zone Setting Type Category VT CV DEVICE CHECK Zone Setting Status Monitor CV DEVICE CHECK Zone ID 5 CV DEVICE CHECK Date of Service 2024-10-27 CV DEVICE CHECK Anatomical Region Laterality Modality Device Interroga tion 10/27/2024 Impressions 10/29/2024 7:12 AM EDT Normal In-Office: No Events * Normal Device Function * Alerts or events: None * Battery: MOS, 15.0 years * Sensing, impedance and thresholds reviewed and tested * Presenting Rhythm: -VS 82 bpm * Heart Rate Histograms reviewed, rate response turned on today. * Pacing and Detection Parameters were evaluated Wound Check * Device pocket examined, no edema, erythema or drainage noted, scant Dermabond remains. * ILR removal site was found to be open and reddened, with the help of MALORIE Love a suture was removed from the site, the incision was cultured and sent to the lab and steri strips were placed over incision. See EPIC for more information. Narrative Procedure Note Musa Cheung MD - 10/29/2024 IMPRESSION: Normal In-Office: No Events * Normal Device Function * Alerts or events: None * Battery: MOS, 15.0 years * Sensing, impedance and thresholds reviewed and tested * Presenting Rhythm: -VS 82 bpm * Heart Rate Histograms reviewed, rate response turned on today. * Pacing and Detection Parameters were evaluated Wound Check * Device pocket examined, no edema, erythema or drainage noted, scantDermabond remains. * ILR removal site was found to be open and reddened, with the help ofMALORIE Love a suture was removed from the site, the incision wascultured and sent to the lab and steri strips were placed over incision.See [facility] for more information. us Order Referral Cardiovascular CV IMPLANTABLE CAR DIAC DEVICE PROCEDURES Final Result * Culture wound with gram stain (10/27/2024 1:34 PM EDT) Culture, Wound No growth at 3 days 10/30/2024 9:11 AM EDT [facility] Gram Stain Result Rare Polymorphonuclear leukocytes 10/30/2024 9:11 AM EDT [facility] Gram Stain Result No epithelial cells seen 10/30/2024 9:11 AM EDT [facility] Gram Stain Result No organisms seen 10/30/2024 9:11 AM EDT [facility] Discharge Left thorax structure / Unknown 10/27/2024 1:34 PM EDT 10/27/2024 1:59 PM EDT [facility] LAB MICROBIOLOGY - GENERAL ORDER KATHERINE Final Result [facility] [address] [place] [address], * XR Chest 1 View (10/13/2024 5:31 PM EDT) Anatomical Region Laterality Modality Body Radiographic Danelle ging 10/14/2024 8:34 AM EDT Impressions 10/14/2024 8:35 AM EDT Impression: 1. Status post pacemaker placement, with leads well-positioned in this single projection. 2. No pneumothorax. 3. Lungs grossly clear. Telerad MALORIE ([id number]) -------- FINAL REPORT -------- Dictated By: Taylor Bright Dictated Date: 10/14/2024 08:34 ET Assigned Physician: Taylor Bright Reviewed and Electronically Signed By: Taylor Bright Signed Date: 10/14/2024 08:35 ET Workstation ID: [id number] Transcribed By: Self Edit Transcribed Date: 10/14/2024 08:34 ET Narrative 10/14/2024 8:35 AM EDT History: Chest pain. Status post pacemaker implantation. Comparison: 01/16/23 Findings: Portable AP upright chest at 5:25 PM. This is a poor inspiration. The cardiac silhouette remains normal in size. A new left subclavian transvenous pacemaker is demonstrated, with leads terminating in the expected locations of the right atrium and ventricle. No pneumothorax is seen. Hilar contours and pulmonary vascularity appear normal. The lungs are grossly clear. The costophrenic angles are sharp. Cervical spine surgical hardware is noted. Procedure Note Taylor Bright MD - 10/14/2024 History: Chest pain. Status post pacemaker implantation. Comparison: 01/16/23 Findings: Portable AP upright chest at 5:25 PM. This is a poor inspiration. Thecardiac silhouette remains normal in size. A new left subclaviantransvenous pacemaker is demonstrated, with leads terminating in theexpected locations of the right atrium and ventricle. No pneumothorax isseen. Hilar contours and pulmonary vascularity appear normal. The lungs aregrossly clear. The costophrenic angles are sharp. Cervical spine surgical hardware is noted. IMPRESSION: Impression: 1. Status post pacemaker placement, with leads well-positioned in thissingle projection. 2. No pneumothorax. 3. Lungs grossly clear. Telerad PA ([id number]) -------- FINAL REPORT -------- Dictated By: Taylor Bright Dictated Date: 10/14/2024 08:34 ET Assigned Physician: Taylor Bright Reviewed and Electronically Signed By: Taylor Bright Signed Date: 10/14/2024 08:35 ET Workstation ID: [id number] Transcribed By: Self Edit Transcribed Date: 10/14/2024 08:34 ET us Musa Cheung MD IMG XR PROCEDURES Final Re sult * LOOP RECORDER REMOVAL, INSERT PPM DUAL (10/13/2024 4:25 PM EDT) Anatomical Region Laterality Modality X-Ray Angiograph y Narrative 10/14/2024 7:54 PM EDT Placement of a dual-chamber pacemaker with left bundle area pacing Moderate sedation Left upper extremity venogram for injection and placement of J-wire using modified Seldinger technique Removal of a cardiac event recorder Study Details 59 y.o. old male with recurrent symptoms of dizziness and near syncope [place] [facility] ILR was placed April 2024-the eighth at 130 pm- 3.8-second pause followed by an escape beat and 1.5 second pause with resumption of sinus rhythm. Nonischemic cardiomyopathy, Nonobstructive CAD, Type 2 diabetes, DHARA currently not on CPAP declines mask, recurrent symptoms of dizziness and near syncope [place] [facility] ILR was placed April 2024 Procedure Details Patient was brought to the EP lab in a fasting state. He was consented by the procedure. He was prepped draped in sterile fashion. I did do a venogram of the left upper extremity and placed a wire through the left axillary vein, through the left subclavian vein, to the right atrium. I then made an incision and made the wire flush the underlying pectoral muscle. I then used a 7 Colombian sheath a double wire trying to wire access. I then used a 9 Colombian sheath over wire. I used the deflectable excellent hook catheter and placed an endocardial pace lead in the RV septal region. After confirming reasonable left bundle area pacing morphology with good impedance, thresholds, and sensing, I slit the sheath, I remove the 9 [place]ian sheath and I sutured the lead down to the underlying pectoral muscle. I then used a 7 [place]ian sheath and placed right to appendage. After confirming good sensing, thresholds, and impedances, I sutured the lead down to the muscle. I then gave additional lidocaine and made the device pocket. I connected the RV lead RA lead to the dual-chamber pacemaker generator and placed device pocket. I placed fibrillar for additional hemostasis purposes. I closed incision with a 2-0 Vicryl from a 3-0 Vicryl and I placed Dermabond glue over the incision. I then made an incision and removed the implantable loop recorder. There was some bleeding at the superficial site which required some cautery. I sutured the lead with a 2-0 Vicryl followed by placement of derma glue and placement of Steri-Strip. New device as mentioned in this report is a Medtronic dual-chamber pacemaker with left bundle area pacing. Pacemaker is a model number W1 DR 01. Serial number [id number]. The right atrial lead is a model #[id number]. Simmers [id number]. RV pacing lead is model #[id number]. Length is 10 cm. Tremors L FF [id number]. The removed implantable recorder is a Positionly Lux DX 2. 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
--- OUTSIDE RECORDS SUMMARY | 2025-01-01 14:23 | XMS_ITS | Patient Health Record ---
Author Organization [facility] Address [address] [place] [id number] Care Team Providers Care Special Education Superintendent Name Role Phone Arana Clarence Unavailable [phone] Reason For Referral No Information Plan Of Treatment No Information
--- OUTSIDE RECORDS SUMMARY | 2025-01-01 14:23 | XMS_ITS | Clinical Summary ---
Author Organization [facility] Address [address] [place] [address] Care Team Providers Care Consultant Intern Name Role Phone Vamshi Man MD Primary Care Provider + [phone] Allergies Active Allergy Reactions Criticality Noted Date [...] age to complete this topic Care Teams Consultant Intern Relationship Specialty Start Date End Date Vamshi Man MD [address] [place] [id number] PCP - General Internal Medicine 05/02/23
[2025-01-12 16:10] VITALS: BMI 31.1
[2025-01-14 07:42] VITALS: BMI 29.4
[2025-01-14] MEDS: Lactated Ringers 1,000 ML 80 ML IVCONT (08:08)
--- NOTE | 2025-01-14 08:11 | HO.ANESPROP2 ---
Documented by User: Charisma Vo NP 01/14/25 07:48 HPI - Anesthesia Eval Consult details Narrative: 59 yr old male for upper endoscopy Spoke to pt today, 01/13/25, he feels well, no dizziness or chest pain. Walked 3 miles today. Cardiac pacemaker: 09/2024, device check 01/12/25, SUPERVISOR DECORATING pacing <0.1%, AP 2.0%, *see full report below HF with reduced EG due to nonischemic cardiomyopathy: On Entresto, last echo was done in 2022 (*see below), cardiac MRI done in 2022 - neg for cardiac amylodosis. Saw cardiology 11/11/24, PVC, reported dizziness, fatigue, intermittent left sided chest pain. His isosorbide was held due to his symptoms. He was then seen at [facility] ED 11/25/24 with headache, dizziness, thought to be related to hypotension, he was hydrated, given magnesium replacement, advised to follow up with PCP for BP mgt. DHARA: currently not using CPAP On methadone Anesthesia Pre-Procedure Meds Is the patient on any of the following meds?: GLP1/DPP4 PMFSH Active Problems Active Problems: All Active Problems (Updated 01/12/25 @ 16:14 by Jeannette Ramirez RN) Complex renal cyst (Acute) Nocturia more than twice per night (Acute) Loud snoring (Acute) Insomnia (Acute) Excessive daytime sleepiness (Acute) Osteoarthritis of knees, bilateral (Acute) DHARA (obstructive sleep apnea) (Acute) Microscopic hematuria (Acute) Flank pain (Acute) MGUS (monoclonal gammopathy of unknown significance) (Acute) Atherosclerotic cardiovascular disease (Acute) BPH with elevated PSA (Acute) BPH loc w urin obs/LUTS (Acute) High prostate specific antigen (PSA) (Acute) Trigger thumb of right hand (Acute) Trigger little finger of right hand (Acute) Trigger index finger of right hand (Acute) Left sided abdominal pain (Acute) Cardiomyopathy (Acute) Renal cyst (Acute) Osteoarthritis of right knee (Acute) Osteoarthritis of right foot (Acute) History of esophageal dilatation (Acute) GERD (gastroesophageal reflux disease) (Acute) Dysphagia (Acute) HTN (hypertension) (Acute) Bleeding hemorrhoids (Acute) Diabetes mellitus (Acute) Asthma (Acute) Past Medical History Medical History Pacemaker (09/2024) Diverticulosis Osteoarthritis IBS (irritable bowel syndrome) Hyperlipidemia CAD (coronary artery disease) Nonischemic cardiomyopathy CHF (congestive heart failure) Sleep apnea Obesity (BMI 30.0-34.9) Left flank discomfort Upper abdominal pain GERD (gastroesophageal reflux disease) Elevated cholesterol HTN (hypertension) Constipation by delayed colonic transit Bleeding hemorrhoids Diabetes mellitus Asthma Family History Family History Mother History of colon cancer Brother History of liver cancer Maternal Aunt History of colon cancer Father No problems noted. Family history of problems with anesthesia: No Surgical History Surgical History History of dacryocystorhinostomy H/O foot surgery History of esophagogastroduodenoscopy (EGD) (08/13/24) History of tonsillectomy History of sinus surgery History of neck surgery History of carpal tunnel release History of release of tendon History of umbilical hernia repair History of colonoscopy History of Problems with Anesthesia: No Social History Social History (Updated 01/12/25 @ 16:44 by Jeannette Ramirez RN) Household Members: None Housing: Apartment Are you a primary patient care manager to a significant other at home: No Do you presently have visiting nurse or other home services: No Alcohol intake: never Patient Tobacco Use Status: Former Tobacco user Tobacco use type: Cigarette Smoked in Last 30 Days: No Second Hand Smoke Exposure: No Use of substances other than those prescribed or required for medical reasons: No Have you been hit, kicked, punched, or otherwise hurt by someone within the past year? 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 Meds Allergies Allergy/AdvReac Type Severity Reaction Status Date / Time Penicillins (PENICILLINS) Allergy Intermediate RASH Verified 01/14/25 07:54 lactose AdvReac Intermediate Abdominal Uncoded 01/14/25 07:54 Pain Home Medications ?Medication ?Instructions ?Recorded ?Confirmed ?Last Taken ?Type methadone 10 mg tablet 10 mg PO TID PRN Pain 02/19/20 01/14/25 01/14/25 05:00 History montelukast 10 mg tablet 10 mg PO DAILY 02/19/20 01/14/25 Unknown History (Singulair) duloxetine 60 mg capsule,delayed 60 mg PO DAILY 09/10/20 01/14/25 Unknown History release zolpidem 10 mg tablet 10 mg PO BEDTIME PRN insomnia 08/12/21 01/14/25 Unknown History albuterol sulfate 90 mcg/actuation 2 puff inhalation Q4H PRN Wheezing 10/27/21 01/14/25 Unknown History aerosol inhaler alprazolam 2 mg tablet 1 tab PO BID PRN anxiety 10/27/21 01/14/25 Unknown History multivitamin with folic acid 400 1 tab PO DAILY 10/27/21 01/14/25 Unknown History mcg tablet (Tab-A-Kelsie) naloxone 4 mg/actuation nasal 1 spray intranasal DAILY 10/27/21 01/14/25 Unknown History spray (Narcan) blood sugar diagnostic (FreeStyle #10 ea 07/10/22 01/14/25 Unknown History Lite Strips) magnesium oxide 400 mg (241.3 mg 400 mg PO DAILY 07/10/22 01/14/25 Unknown History magnesium) tablet metformin 750 mg tablet,extended 750 mg PO DAILY 07/10/22 01/14/25 Unknown History release 24 hr pen needle, diabetic 33 gauge x #100 ea 07/10/22 01/14/25 Unknown History 1/4 (Comfort EZ Pen [place]) testosterone enanthate 200 mg/mL 150 mg IM Q2W 07/10/22 01/14/25 Unknown History intramuscular oil tizanidine 4 mg tablet 4 mg PO TID PRN Pain 07/10/22 01/14/25 Unknown History linaclotide 290 mcg capsule 290 mcg PO DAILY PRN Constipation 12/11/22 01/14/25 Unknown History (Linzess) pen needle, diabetic 31 gauge x #1,200 ea 12/11/22 01/14/25 Unknown History 08/29 (UltiCare Pen Needle) levocetirizine 5 mg tablet 5 mg PO DAILY 01/25/23 01/14/25 Unknown History spironolactone 25 mg tablet 25 mg PO DAILY 01/25/23 01/14/25 Unknown History sacubitril 49 mg-valsartan 51 mg 1 tab PO BID 04/11/23 01/14/25 Unknown History tablet (Entresto) cholecalciferol (vitamin D3) 25 25 mcg PO DAILY 05/08/23 01/14/25 Unknown History mcg (1,000 unit) capsule insulin glargine U-300 conc 300 8 unit subcut DAILY 08/14/23 01/14/25 Unknown History unit/mL (3 mL) subcutaneous pen (Toujeo Max U-300 SoloStar) atorvastatin 80 mg tablet 80 mg PO DAILY 12/03/23 01/14/25 Unknown History fluticasone furoate 100 1 inh inhalation DAILY 12/03/23 01/14/25 Unknown History mcg/actuation blister powder for inhalation (Arnuity Ellipta) fluticasone propionate 50 1 spray intranasal BID 12/03/23 01/14/25 Unknown History mcg/actuation nasal spray,suspension glipizide 5 mg tablet 5 mg PO BID 12/03/23 01/14/25 Unknown History ondansetron HCl 4 mg tablet 4 mg PO Q8H PRN Nausea 12/03/23 01/14/25 Unknown History bupropion HCl 150 mg 24 hr tablet, 150 mg PO QAM 02/13/24 01/14/25 Unknown History extended release aspirin 81 mg tablet,delayed 81 mg PO DAILY 04/07/24 01/14/25 01/13/25 History release bupropion HCl 300 mg 24 hr tablet, 300 mg PO DAILY 05/26/24 01/14/25 Unknown History extended release carvedilol 3.125 mg tablet 3.125 mg PO BID 05/26/24 01/14/25 Unknown History naproxen 500 mg tablet 500 mg PO BID PRN Pain 05/26/24 01/14/25 12/30/24 History pen needle, diabetic, safety 32 #100 ea 05/26/24 01/14/25 Unknown History gauge x 5/32 (True Comfort Safety Pen Needle) tirzepatide 15 mg/0.5 mL 15 mg subcut QWEEK 05/26/24 01/14/25 01/04/25 History subcutaneous pen injector (Tamela) Exam Height,Weight and Vital Signs: Height 6 ft 2 in Weight 109.999 kg Narrative Narrative: EKG 11/25/24 Normal sinus rhythm, rate 71 Cardiac pacemaker Device check 01/12/25 IMPRESSION: Normal Remote: With Events * Normal Device Function * Events or Alerts: 2 VT longest 8 beats * Battery: OK, 14.67 yrs * Sensing, impedance and thresholds reviewed * Programmed parameters reviewed * Presenting rhythm reviewed * Heart Rate Histograms reviewed ECHO 11/2022 Technically difficult study. Normal left ventricular chamber size. Mild contcentric left ventricular hypertrophy. Global hypokinesis. Mild reduced left ventricular systolic function. Left ventricular EF 45-50% Enlarged right ventricular size. Normal right ventricular global systolic function. No significant valvular disease. Ascending aorta dilatation 4.2 cm Assessment and Plan Final Anesthetic Review Family History of Problems with Anesthesia: No History of Problems with Anesthesia: No Documented by User: Cyndi Singh DO 01/14/25 08:12 HPI - Anesthesia Eval Anesthesia Pre-Procedure Meds Is the patient on any of the following meds?: GLP1/DPP4 [facility] Past Medical History Medical History Pacemaker (09/2024) Diverticulosis Osteoarthritis IBS (irritable bowel syndrome) Hyperlipidemia CAD (coronary artery disease) Nonischemic cardiomyopathy CHF (congestive heart failure) Sleep apnea Obesity (BMI 30.0-34.9) Left flank discomfort Upper abdominal pain GERD (gastroesophageal reflux disease) Elevated cholesterol HTN (hypertension) Constipation by delayed colonic transit Bleeding hemorrhoids Diabetes mellitus Asthma Family History Family History Mother History of colon cancer Brother History of liver cancer Maternal Aunt History of colon cancer Father No problems noted. Family history of problems with anesthesia: No Surgical History Surgical History History of dacryocystorhinostomy H/O foot surgery History of esophagogastroduodenoscopy (EGD) (08/13/24) History of tonsillectomy History of sinus surgery History of neck surgery History of carpal tunnel release History of release of tendon History of umbilical hernia repair History of colonoscopy History of Problems with Anesthesia: No Social History Social History (Updated 01/12/25 @ 16:44 by Jeannette Ramirez RN) Household Members: None Housing: Apartment Are you a primary patient care manager to a significant other at home: No Do you presently have visiting nurse or other home services: No Alcohol intake: never Patient Tobacco Use Status: Former Tobacco user Tobacco use type: Cigarette Smoked in Last 30 Days: No Second Hand Smoke Exposure: No Use of substances other than those prescribed or required for medical reasons: No Have you been hit, kicked, punched, or otherwise hurt by someone within the past year? 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 Meds Allergies Allergy/AdvReac Type Severity Reaction Status Date / Time Penicillins (PENICILLINS) Allergy Intermediate RASH Verified 01/14/25 07:54 lactose AdvReac Intermediate Abdominal Uncoded 01/14/25 07:54 Pain Home Medications ?Medication ?Instructions ?Recorded ?Confirmed ?Last Taken ?Type methadone 10 mg tablet 10 mg PO TID PRN Pain 02/19/20 01/14/25 01/14/25 05:00 History montelukast 10 mg tablet 10 mg PO DAILY 02/19/20 01/14/25 Unknown History (Singulair) duloxetine 60 mg capsule,delayed 60 mg PO DAILY 09/10/20 01/14/25 Unknown History release zolpidem 10 mg tablet 10 mg PO BEDTIME PRN insomnia 08/12/21 01/14/25 Unknown History albuterol sulfate 90 mcg/actuation 2 puff inhalation Q4H PRN Wheezing 10/27/21 01/14/25 Unknown History aerosol inhaler alprazolam 2 mg tablet 1 tab PO BID PRN anxiety 10/27/21 01/14/25 Unknown History multivitamin with folic acid 400 1 tab PO DAILY 10/27/21 01/14/25 Unknown History mcg tablet (Tab-A-Kelsie) naloxone 4 mg/actuation nasal 1 spray intranasal DAILY 10/27/21 01/14/25 Unknown History spray (Narcan) blood sugar diagnostic (FreeStyle #10 ea 07/10/22 01/14/25 Unknown History Lite Strips) magnesium oxide 400 mg (241.3 mg 400 mg PO DAILY 07/10/22 01/14/25 Unknown History magnesium) tablet metformin 750 mg tablet,extended 750 mg PO DAILY 07/10/22 01/14/25 Unknown History release 24 hr pen needle, diabetic 33 gauge x #100 ea 07/10/22 01/14/25 Unknown History 1/4 (Comfort EZ Pen [place]) testosterone enanthate 200 mg/mL 150 mg IM Q2W 07/10/22 01/14/25 Unknown History intramuscular oil tizanidine 4 mg tablet 4 mg PO TID PRN Pain 07/10/22 01/14/25 Unknown History linaclotide 290 mcg capsule 290 mcg PO DAILY PRN Constipation 12/11/22 01/14/25 Unknown History (Linzess) pen needle, diabetic 31 gauge x #1,200 ea 12/11/22 01/14/25 Unknown History 08/29 (UltiCare Pen Needle) levocetirizine 5 mg tablet 5 mg PO DAILY 01/25/23 01/14/25 Unknown History spironolactone 25 mg tablet 25 mg PO DAILY 01/25/23 01/14/25 Unknown History sacubitril 49 mg-valsartan 51 mg 1 tab PO BID 04/11/23 01/14/25 Unknown History tablet (Entresto) cholecalciferol (vitamin D3) 25 25 mcg PO DAILY 05/08/23 01/14/25 Unknown History mcg (1,000 unit) capsule insulin glargine U-300 conc 300 8 unit subcut DAILY 08/14/23 01/14/25 Unknown History unit/mL (3 mL) subcutaneous pen (Toujeo Max U-300 SoloStar) atorvastatin 80 mg tablet 80 mg PO DAILY 12/03/23 01/14/25 Unknown History fluticasone furoate 100 1 inh inhalation DAILY 12/03/23 01/14/25 Unknown History mcg/actuation blister powder for inhalation (Arnuity Ellipta) fluticasone propionate 50 1 spray intranasal BID 12/03/23 01/14/25 Unknown History mcg/actuation nasal spray,suspension glipizide 5 mg tablet 5 mg PO BID 12/03/23 01/14/25 Unknown History ondansetron HCl 4 mg tablet 4 mg PO Q8H PRN Nausea 12/03/23 01/14/25 Unknown History bupropion HCl 150 mg 24 hr tablet, 150 mg PO QAM 02/13/24 01/14/25 Unknown History extended release aspirin 81 mg tablet,delayed 81 mg PO DAILY 04/07/24 01/14/25 01/13/25 History release bupropion HCl 300 mg 24 hr tablet, 300 mg PO DAILY 05/26/24 01/14/25 Unknown History extended release carvedilol 3.125 mg tablet 3.125 mg PO BID 05/26/24 01/14/25 Unknown History naproxen 500 mg tablet 500 mg PO BID PRN Pain 05/26/24 01/14/25 12/30/24 History pen needle, diabetic, safety 32 #100 ea 05/26/24 01/14/25 Unknown History gauge x 5/32 (True Comfort Safety Pen Needle) tirzepatide 15 mg/0.5 mL 15 mg subcut QWEEK 05/26/24 01/14/25 01/04/25 History subcutaneous pen injector (Tamela) Exam Exam Date and Time: 01/14/25 0810 Airway Mallampati Class: II TM Dist: <=3cm Neck ROM: Full Loose/Missing/Broken Teeth: No (patient denies any loose or broken teeth) Heart: S1S2 Lungs: CTAB Assessment and Plan Assessment Anesthesia Assessment: Anesthesia Plan Discussed and Chart Reviewed Final Anesthetic Review Family History of Problems with Anesthesia: No History of Problems with Anesthesia: No NPO: Yes ASA Class: III Final Preanesthetic Review: No Changes in Pt Med Stat, Meds/Allgs Chart Reviewed, Consent Obtained/Reviewed (motor vehicle parts interpreter at bedside for translation) and Anes Risks/Benef Reviewed Patient Risk: Intermediate Procedure Risk: Low Anesthetic Plan Anesthetic Plan: MAC: and Agree w/ Assess. and Plan Disposition: Standard PACU
[2025-01-14 08:12] VITALS: BP 127/82; PULSE 82; RESP 17; TEMP 36.3; O2SAT 98
[2025-01-14 08:20] LABS: Glucose, Whole Blood 121 mg/dL (60-115)
--- NOTE | 2025-01-14 08:37 | P.HPSUR_ITS ---
Pre-Procedural Eval Section A - 24 Hr Update-Section A only Date of Service: 01/14/25 Section B - Complete if H&P > 30 days Chief Complaint: Dysphagia, Relevant Family History (Specify if Yes): No Relevant Social History: None Present Medications: see Short Stay Collaborative assessment Medical History: Significant History (Pacemaker (09/2024) Diverticulosis Osteoarthritis IBS (irritable bowel syndrome) Hyperlipidemia CAD (coronary artery disease) Nonischemic cardiomyopathy CHF (congestive heart failure) Sleep apnea Obesity (BMI 30.0-34.9) Left flank discomfort Upper abdominal pain GERD (gastroesophageal reflux disease) History of Previous Operations: Relevant previous surgery/procedure and date(s) (History of dacryocystorhinostomy H/O foot surgery History of esophagogas troduodenoscopy (EGD) (08/13/24) History of tonsillectomy History of sinus surgery History of neck surgery History of carpal tunnel release History of release of tendon History of umbilical hernia repair History of colonoscopy) Allergies: Allergies Allergy/AdvReac Type Severity Reaction Status Date / Time Penicillins (PENICILLINS) Allergy Intermediate RASH Verified 01/14/25 07:54 lactose AdvReac Intermediate Abdominal Uncoded 01/14/25 07:54 Pain Review of Systems Sugical H&P ROS: Negative: Constitution, Cardiovascular, Respiratory, Neurological, Psychiatric, Hem-Onc, Allergic/Immunologic, Gastrointestinal, Genitourinary, Musculoskeletal, Integumentary, Endocrine and Eyes/Ears/Nose/Throat Exam Surgical H&P Exam: Normal: HEENT, Normal: Heart, Normal: Lungs, Normal: Extremities, Normal: Abdomen, Normal: Skin and Normal: Neurological Plan Diagnosis/Plan: Unchanged I have reviewed the history and physical and performed a pertinent physical examination on my patient. No changes have occurred unless specified. Time Spent With Patient Time: Total time managing care of this patient today ____ minutes.
--- NOTE | 2025-01-14 08:52 | P.OP_ITS ---
Operative Note Operative Note Date of Service: 01/14/25 Narrative: Procedure Description: EGD Indication: [] Anesthesia: MAC FLEXIBLE TRANSORAL UPPER GASTROINTESTINAL ENDOSCOPY UPPER ENDOSCOPY Consent: Indications for the procedure and potential complications of bleeding, perforation, reaction to medications and missed diagnosis were discussed with the patient and informed consent was obtained. Instrument: Olympus GIF H 190 J mid size upper endoscope Monitoring: Vital signs and clinical assessment, continuous EKG monitoring, Pulse oximetry, Carbon Dioxide monitoring and blood pressure monitoring were done throughout the procedure. Procedure: The patient was placed in the left lateral decubitis position and pre-procedure medications were administered and a bite block was placed. The endoscope was inserted into the mouth and advanced under direct vision to the third part of duodenum. A careful inspection was made as the upper endoscope was withdrawn including a retroflexed examination of the proximal stomach; Findings and interventions are described below. Findings: Larynx:normal Esophagus: GE junction at 40? cm, diaphragm hiatus at 40 cm, white adherent plaques all thru out the esophagus consistent with yolande, bx taken from distal and proximal esophagus--balloon dilation done to 20 mm at UES and LES, no tears seen Stomach: mild erythema and granularity, bx taken with few fundic gland polyps s een. Grade 2 flap valve on retroflexed examination of the cardia. Duodenum: normal Intervention: balloon dilation and biopsies Impression/Findings: fundic gland polyps mild gastritis candidal esophagitis PLAN: cont with PPI add fluconazole for 3 weeks --if ongoing sx then check HIV but he is diabetic and on steroid inhalers could be the cause rept dilation prn
[2025-01-14 08:55] VITALS: BP 88/61; PULSE 88; RESP 16; TEMP 36.3; O2SAT 97
[2025-01-14 09:10] VITALS: BP 101/68; PULSE 80; RESP 16; TEMP 36.9; O2SAT 98
== END 2025-01-14 09:33 | disposition home or self-care (01) ==
PROVIDERS: PCP Internal Medicine; Visit Provider Internal Medicine Gastroenterology
PROC: 0DJ08ZZ Inspection of Upper Intestinal Tract, Via Natural or Artificial Opening Endoscopic (ICD-10-PCS; CPT 43235; principal; 2025-01-14 08:30)
DX: R13.10 Dysphagia, unspecified (principal); K31.7 Polyp of stomach and duodenum; K29.70 Gastritis, unspecified, without bleeding; B37.81 Candidal esophagitis; I25.10 Atherosclerotic heart disease of native coronary artery without angina pectoris; I11.0 Hypertensive heart disease with heart failure; I50.9 Heart failure, unspecified; I42.8 Other cardiomyopathies; E11.9 Type 2 diabetes mellitus without complications; Z95.0 Presence of cardiac pacemaker; Z88.0 Allergy status to penicillin
CPT/HCPCS: 43249; 43239; 82947; 88305; 88312; 88313; 88342; C1726; J2003; J2704

== ENCOUNTER → 2025-01-14 07:30 | Outpatient (BNV) | payer MEDICARE, MEDICAID, SELFPAY | PROVIDERS: PCP Internal Medicine; Visit Provider Internal Medicine Gastroenterology | DX: R13.10 Dysphagia, unspecified (principal); K20.80 Other esophagitis without bleeding; K29.70 Gastritis, unspecified, without bleeding; K31.7 Polyp of stomach and duodenum | CPT/HCPCS: 43239; 43249 ==

== ENCOUNTER 2025-01-21 12:51 | Outpatient (AMB) | payer MEDICARE, MEDICAID, SELFPAY ==
--- NOTE | 2025-01-21 13:03 | MHC.OFFVIS ---
Vital Signs 01/21/25 13:04 Height 6 ft 2 in Weight 227 lb 8 oz BMI 29.2 BP 100/72 Blood Pressure Location Lt brachial Position Sitting Pulse 85 Pulse Source Pulse Oximeter Pulse Oximetry (%) 98 Oxygen Delivery Method Room Air Intake Visit Reasons: 1m follow up Intake Note: Patient presents follow up Insomnia. HST in chart(AHI-0, TONYA-89%) Deputy Chief Sheriff Required: Yes Deputy Chief Sheriff Language: Regional Engagement Consultant Services: Deputy Chief Sheriff Present Deputy Chief Sheriff Name: [id number] Information Interpreted: non-clinical & clinical Accompanied by: Spouse Allergies Penicillins (PENICILLINS) Allergy (Intermediate, Verified 01/21/25 13:11) RASH lactose Adverse Reaction (Intermediate, Uncoded 01/14/25 07:54) Abdominal Pain HPI Comments Details: 59 year old r. handed, [place] speaking male presents for a f/u of his HST. He is here with his today and the diplomatic interpreter helps with history. HST is c/w AHI 0 and oxygen levels is 90%, snoring is mild with 16 episodes. PMH in September 2024 he underwent an implantation of a Pacemaker at [facility]. He has had fragmented sleep with disturbances through out the night he sleeps for a maximum of 2-3 hours after taking an ambien 10mg. He no longer takes Prazosin due to lack of efficacy.He gets up to go to the gym at 3am if he can not sleep.He gets up for the bathroom 5-6x a night, he takes flomax 0.4mg po but no longer taking the tamsulosin due to concerns of hypotension, he is being managed by his apple turner Dr. Stephanie Cuello. He is taking methadone 10mg po only when he needs it for pain due to a past cervical fusion/ injury. He has arthritis and chronic lower back, pain in his knees, ankles and feet bilaterally. His mood is sad, he feels depressed and has anxiety. Though he says his symptoms are better managed with Cymbalta and Wellbutrin along with Alprazolam PRN for situations when he is overwhelmed and feels panic. He is seeing his therapist once a week. He takes naps daily for about an hour due to fatigue. He feels refreshed when he wakes up after napping. He has headaches daily, and says he has 2 screws in c spine due to pinched nerve and limited ROM. Awaiting surgical consult. He has dysphagia and inability to swallow solids with bolus getting stuck in the throat daily and he vomits, he is being followed by GI. His memory is poor he forgets many tasks however not concerned. RLS he c/o of r. ankle pain with numbness, tingling and an uncomfortable feeling bilaterally in his feet. He denies this keeps him up at night. [facility] Medical History Pacemaker (09/2024) Diverticulosis Osteoarthritis IBS (irritable bowel syndrome) Hyperlipidemia CAD (coronary artery disease) Nonischemic cardiomyopathy CHF (congestive heart failure) Sleep apnea Obesity (BMI 30.0-34.9) Left flank discomfort Upper abdominal pain GERD (gastroesophageal reflux disease) Elevated cholesterol HTN (hypertension) Constipation by delayed colonic transit Bleeding hemorrhoids Diabetes mellitus Asthma Surgical History History of dacryocystorhinostomy H/O foot surgery History of esophagogastroduodenoscopy (EGD) (08/13/24) History of tonsillectomy History of sinus surgery History of neck surgery History of carpal tunnel release History of release of tendon History of umbilical hernia repair History of colonoscopy Family History Mother History of colon cancer Brother History of liver cancer Maternal Aunt History of colon cancer Father No problems noted. 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 Resp Effort & Inspection: normal respiratory effort and able to speak in complete sentences Neuro Other: limited rom on lateral ROM bilaterally. limited flexion and extension cervical fusion. General: patient oriented x3 and moves all extremities Cranial nerves: Yes Facial sensation intact/muscles of mastication intact, Yes Equal, round and reactive pupils present, Yes Normal accommodation reflex present, Yes Midline tongue present, Yes Ability to bilaterally rotate head present and Yes Ability to bilaterally elevate shoulders present Gait exam (Neuro): Normal gait present Motor exam (neuro): 5/5 motor strength present throughout and Normal motor muscle tone present throughout Coordination: [id number] test normal Psych Appearance: grossly normal Thought process: Normal thought process present Thought content: Normal thought content present Results Reviewed Results Reviewed: HST 12/2024 AHI is 0 and Oxygen Nadirs to 93%. Labs reviewed with pt. Assessment & Plan Assessment & Plan (1) Excessive daytime sleepiness: Code(s): G47.19 - Other hypersomnia Category: Medical (2) Insomnia: Code(s): G47.00 - Insomnia, unspecified Category: Medical Qualifiers: Insomnia type: primary Qualified Code(s): F51.01 - Primary insomnia (3) Loud snoring: Code(s): R06.83 - Snoring Category: Medical (4) Nocturia more than twice per night: Code(s): R35.1 - Nocturia Category: Medical (5) Cervicalgia: Code(s): M54.2 - Cervicalgia Category: Medical (6) Hypersomnia: Code(s): G47.10 - Hypersomnia, unspecified Category: Medical Plan Excessive daytime sleepiness will send for PSG to evaluate HST reviewed with pt. Will evaluate with an in lab psg- as pt recently had a pacemaker implant due to 2nd degree heart block. New labs pending. Difficulty falling asleep, continue Ambien 10mg po qpm for sleep, may take with magnesium 400mg po at bedtime. Nocturia f/u w/ urology, continue proscar 5mg po qhs and tamsulosin 0.4mg po qhs. Cervicalgia with headaches may take naproxen 500mg po BID and Tizanidine for stiffness and joint pain. RLS will monitor, continue eye and foot exam due to T2DM. Snoring can use night time snore strips or magnets to open the nares, vicks vapor rub stick, eucalyptus, or menthol. will refer to sleep dentistry after evaluation of in lab PSG. F/U in 3 months. Orders: Orders RT PSG in-lab sleep study 01/21/25 G47.19 - Other hypersomnia Medications: Changed From zolpidem 10 mg PO BEDTIME PRN insomnia G47.10 - Hypersomnia, unspecified To zolpidem 10 mg PO BEDTIME PRN 30 tabs 2RF insomnia 3 months MDD 10mg G47.10 - Hypersomnia, unspecified Refilled lidocaine 4% apply to affected area, monitor area for any signs of rash or skin breakdown 1 appl topical BID PRN 30 grams 0RF pain Coding Level of Care Code Est Pt Level 4 (06783) Diagnoses Excessive daytime sleepiness G47.19 Primary insomnia F51.01 Insomnia type: primary Loud snoring R06.83 Nocturia more than twice per night R35.1 Cervicalgia M54.2 Hypersomnia G47.10
[2025-01-21 13:04] VITALS: BP 100/72; PULSE 85; O2SAT 98; BMI 29.2
== END 2025-01-21 14:26 | disposition home or self-care (01) ==
LOC: HO.HSMC 12:51
PROVIDERS: PCP Internal Medicine; Visit Provider Physician Assistant Medical
DX: G47.19 Other hypersomnia (principal); F51.01 Primary insomnia; R06.83 Snoring; R35.1 Nocturia; M54.2 Cervicalgia; G47.10 Hypersomnia, unspecified
CPT/HCPCS: 99214

== ENCOUNTER → 2025-01-21 12:51 | Outpatient (BNVA) | payer MEDICARE, MEDICAID, SELFPAY | PROVIDERS: PCP Internal Medicine; Visit Provider Physician Assistant Medical | DX: G47.19 Other hypersomnia (principal); F51.01 Primary insomnia; R06.83 Snoring; R35.1 Nocturia; Z95.0 Presence of cardiac pacemaker; Z87.891 Personal history of nicotine dependence; M54.2 Cervicalgia; M54.50 Low back pain, unspecified | CPT/HCPCS: 99212 ==

== ENCOUNTER 2025-02-01 07:56 | Emergency (ER) | payer MEDICARE, MEDICAID, SELFPAY ==
--- OUTSIDE RECORDS SUMMARY | 2024-01-30 14:30 | XMS_ITS | Encounter Summary ---
Author Organization [facility] Address [address] [place] [address] Care Team Providers Care Doll Eye Setter Name Role Phone Vamshi Man MD Primary Care Provider [phone] Encounter Details Date Type Department Care Team (Late st Contact Info) Description 01/30/2024 2:30 PM EDT Hospital Encounter TH HISTORIC ENCOUNTERS EASTERN CONVERSION ONLY Kash Hammonds MD 175 [facility] 200 [place] [address] Social History Tobacco Use Types Packs/Day Years [...] 7:54 AM EDT Lisandra Herrera RN * [place] Suicide Severity Rating Scale (Screener/Recent Self-Report) Question Answer Date of Assessment Author 1. Wish to be (Past 1 Month) No 025 7:54 AM EDT Ruthie Herrera, AXEL 2. Non-Specific Active Suici vanessa Thoughts (Past 1 Month) No 11/25/2024 7:54 AM EDT Ruthie Herrera , AXEL 6. Suicidal Behavior (Lifetime) No 7:54 AM EDT Ruthie Herrera RN documented as of this encounter Plan of Treatment Upcoming Encounters Date Type Department Care Team (Late st Contact Info) Description 02/05/2025 7:30 AM EDT Hospital Encounter [facility] Endoscopy 271 [place] [phone] Kash Hammonds MD [address] [address] 02/16/2025 2:00 PM EST Office Visit Orthopedic Surgery - [place] [address] [phone] Cheng Rea DPM [address] [phone] 02/17/2025 11:20 AM EST Office Visit [facility] [address] [place] [address] [address] [place] [phone] Manuel Aldrich MD [address] [place] [address] Dr [facility] 410 [place] [phone] 03/30/2025 8:30 AM EST Office Visit Gastroenterology - [place] 175 [facility] 175 [facility] 200 [place] [phone] Idalia Sandoval PA 175 [facility] 200 [place] [address] documented as of this encounter Visit Diagnoses Not on filedocumented in this encounter Care Teams Doll Eye Setter Relationship Specialty Start Date End Date Vamshi Man MD [address] [place] [address] PCP - General 10/06/10 documented as of this encounter
--- NOTE | ~2025-02-01 | XR_ITS ---
CLINICAL HISTORY: rt shoulder pain 4 view right shoulder Comparison: None provided Findings: Bones intact. No dislocations. No significant arthritic change. No erosions. No radiopaque foreign body. IMPRESSION: 1. No acute findings This document has been electronically signed by: Peyman Adkins MD on 02/01/2025 09:26:59
[2025-02-01 07:58] VITALS: BP 112/71; PULSE 100; RESP 18; TEMP 36.3; O2SAT 98; BMI 28.8
--- NOTE | 2025-02-01 09:52 | ED.BACK ---
HPI - Back Pain/Injury General Chief Complaint: Back Pain/Injury Stated Complaint: Pain on back and shoulder Time Seen by Provider: 02/01/25 09:49 Source: patient and court interpreter (mozambican) Mode of arrival: ambulatory Limitations: language barrier (mozambican) History of Present Illness ED Provider: LUIS HARDING PA-C HPI Narrative: 59-year-old male with pmhx significant for asthma, DM, HTN, GERD, BPH, cardiomyopathy, CAD, s/p pacemaker presents to the ED today for evaluation of right upper back pain x4 days. Patient states pain to right upper back began after he was lifting weights at the gym. Pain is exacerbated with movement of the RUE. Reports favoring his RUE while lifting secondary to his pacemaker. Denies blunt injury or trauma. Admits to trialing motrin and a muscle relaxer without improvement. Endorses hxof cervical spine surgery withot complication. Denies fever, chills, neck pain, numbness/tingling/weakness of the right upper extremity. Denies chest pain, palpitations, sob, LE pain/swelling, rashes. Related Data Home Medications ?Medication ?Instructions ?Recorded ?Confirmed methadone 10 mg tablet 10 mg PO TID PRN Pain 02/19/20 01/14/25 montelukast 10 mg tablet 10 mg PO DAILY 02/19/20 01/14/25 (Singulair) duloxetine 60 mg capsule,delayed 60 mg PO DAILY 09/10/20 01/14/25 release albuterol sulfate 90 mcg/actuation 2 puff inhalation Q4H PRN Wheezing 10/27/21 01/14/25 aerosol inhaler alprazolam 2 mg tablet 1 tab PO BID PRN anxiety 10/27/21 01/14/25 multivitamin with folic acid 400 1 tab PO DAILY 10/27/21 01/14/25 mcg tablet (Tab-A-Kelsie) naloxone 4 mg/actuation nasal 1 spray intranasal DAILY 10/27/21 01/14/25 spray (Narcan) blood sugar diagnostic (FreeStyle #10 ea 07/10/22 01/14/25 Lite Strips) magnesium oxide 400 mg (241.3 mg 400 mg PO DAILY 07/10/22 01/14/25 magnesium) tablet metformin 750 mg tablet,extended 750 mg PO DAILY 07/10/22 01/14/25 release 24 hr pen needle, diabetic 33 gauge x #100 ea 07/10/22 01/14/2504/19 (Comfort EZ Pen [place]) testosterone enanthate 200 mg/mL 150 mg IM Q2W 07/10/22 01/14/25 intramuscular oil tizanidine 4 mg tablet 4 mg PO TID PRN Pain 07/10/22 01/14/25 linaclotide 290 mcg capsule 290 mcg PO DAILY PRN Constipation 12/11/22 01/14/25 (Linzess) pen needle, diabetic 31 gauge x #1,200 ea 12/11/22 01/14/25/ (UltiCare Pen Needle) levocetirizine 5 mg tablet 5 mg PO DAILY 01/25/23 01/14/25 spironolactone 25 mg tablet 25 mg PO DAILY 01/25/23 01/14/25 sacubitril 49 mg-valsartan 51 mg 1 tab PO BID 04/11/23 01/14/25 tablet (Entresto) cholecalciferol (vitamin D3) 25 25 mcg PO DAILY 05/08/23 01/14/25 mcg (1,000 unit) capsule insulin glargine U-300 conc 300 8 unit subcut DAILY 08/14/23 01/14/25 unit/mL (3 mL) subcutaneous pen (Toujeo Max U-300 SoloStar) atorvastatin 80 mg tablet 80 mg PO DAILY 12/03/23 01/14/25 fluticasone furoate 100 1 inh inhalation DAILY 12/03/23 01/14/25 mcg/actuation blister powder for inhalation (Arnuity Ellipta) fluticasone propionate 50 1 spray intranasal BID 12/03/23 01/14/25 mcg/actuation nasal spray,suspension glipizide 5 mg tablet 5 mg PO BID 12/03/23 01/14/25 ondansetron HCl 4 mg tablet 4 mg PO Q8H PRN Nausea 12/03/23 01/14/25 bupropion HCl 150 mg 24 hr tablet, 150 mg PO QAM 02/13/24 01/14/25 extended release aspirin 81 mg tablet,delayed 81 mg PO DAILY 04/07/24 01/14/25 release bupropion HCl 300 mg 24 hr tablet, 300 mg PO DAILY 05/26/24 01/14/25 extended release carvedilol 3.125 mg tablet 3.125 mg PO BID 05/26/24 01/14/25 naproxen 500 mg tablet 500 mg PO BID PRN Pain 05/26/24 01/14/25 pen needle, diabetic, safety 32 #100 ea 05/26/24 01/14/25 gauge x 5/32 (True Comfort Safety Pen Needle) tirzepatide 15 mg/0.5 mL 15 mg subcut QWEEK 05/26/24 01/14/25 subcutaneous pen injector (Tamela) Previous Rx's ?Medication ?Instructions ?Recorded hydrocortisone 2.5 % topical cream 1 appl MA BID-QID PRN hemorrhoids 07/09/20 with perineal applicator #30 grams (Procto-Med HC) ibuprofen 800 mg tablet 800 mg PO Q8H PRN pain 30 days #90 03/07/24 tabs finasteride 5 mg tablet (Proscar) 5 mg PO DAILY 90 days #90 tabs 10/06/24 tamsulosin 0.4 mg capsule 0.4 mg PO DAILY #90 caps 10/06/24 lidocaine 4 % topical gel 1 appl topical BID PRN pain #30 01/26/25 grams zolpidem 10 mg tablet 10 mg PO BEDTIME PRN insomnia 3 01/26/25 months #30 tabs lidocaine 5 % topical patch See Rx Instructions topical 02/01/25 .COMPLEX #15 ea methocarbamol 1,000 mg tablet 1,000 mg PO TID PRN muscle pain 3 02/01/25 days #9 tabs Allergies Allergy/AdvReac Type Severity Reaction Status Date / Time Penicillins (PENICILLINS) Allergy Intermediate RASH Verified 02/01/25 08:02 lactose AdvReac Intermediate Abdominal Uncoded 01/14/25 07:54 Pain Review of Systems Review of Systems: Yes all other systems are reviewed and are negative [facility] Past Medical History Attestation statement: The following information was validated with the patient. Source: old records reviewed and nursing notes reviewed Medical History Pacemaker (09/2024) Diverticulosis Osteoarthritis IBS (irritable bowel syndrome) Hyperlipidemia CAD (coronary artery disease) Nonischemic cardiomyopathy CHF (congestive heart failure) Sleep apnea Obesity (BMI 30.0-34.9) Left flank discomfort Upper abdominal pain GERD (gastroesophageal reflux disease) Elevated cholesterol HTN (hypertension) Constipation by delayed colonic transit Bleeding hemorrhoids Diabetes mellitus Asthma Surgical History History of dacryocystorhinostomy H/O foot surgery History of esophagogastroduodenoscopy (EGD) (08/13/24) History of tonsillectomy History of sinus surgery History of neck surgery History of carpal tunnel release History of release of tendon History of umbilical hernia repair History of colonoscopy Family History Family History Mother History of colon cancer Brother History of liver cancer Maternal Aunt History of colon cancer Father No problems noted. 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 Skin: Warm, dry, intact. No rashes or lesions. Head: Normocephalic, atraumatic. EENT: Hearing is intact b/l. Conjunctiva clear. PERRLA. EOM intact. Moist mucous membranes.? Neck: No midline tenderness, full ROM intact Cardiac: Chest wall symmetric. RRR Lungs: Normal respiratory effort without accessory muscle use. CTA bilaterally Abdomen: Soft, non-tender, non-distended. No rebound tenderness or guarding Back: No midline spinous tenderness or step-off deformity. There is reproducible tenderness to palpation of the right thoracic paraspinal musculature. No palpable fluctuance, warmth. No overlying skin changes/rashes. Ext: Upper and lower extremities atraumatic, without tenderness, deformity, swelling or erythema. Full ROM throughout. Neuro: AOx3. Normal speech. Strength 5/5 intact throughout. No saddle anesthesia. Sensation intact to light touch. NV intact distally. Ambulating with steady gait. Course Course Course Narrative: X-ray right shoulder unremarkable. Given significant cardiac history, obtained labs. CBC without leukocytosis or left shift. Normocytic anemia, H and H appears baseline when compared to priors. You without acute electrolyte abnormality requiring intervention. No FRANKO. Random glucose 123. No gap. Liver function at baseline. Troponin undetectable, ACS unlikely. EKG showing normal sinus rhythm, rate of 87 beats per minute, no acute ischemic changes or ST elevations. > patient treated with Toradol, Flexeril and lidocaine patch in the ED with improvement > his exam is consistent with muscular pain, likely exacerbated after lifting weights at the gym. I do not have concern for compression fracture or vertebral etiology as there is no midline tenderness or step offs, x-rays not warranted at this time. Will send him home with methocarbamol and lidocaine patch. Advised PCP follow up. Patient has remained stable throughout ED visit today. Discussed worrisome signs and symptoms and when to return to the ED. All questions answered at this time. Patient is agreeable with disposition and stable for discharge. Medications Administered Discontinued Medications Generic Name Dose Route Start Last Admin Trade Name Freq PRN Reason Stop Dose Admin Cyclobenzaprine HCl 10 mg 02/01/25 10:21 02/01/25 10:27 Cyclobenzaprine Hcl 10 Mg Tablet PO 02/01/25 10:22 10 mg ONCE ONE Administration Ketorolac Tromethamine 30 mg 02/01/25 10:21 02/01/25 10:27 Ketorolac Tromethamine 30 Mg/Ml Vial IM 02/01/25 10:22 30 mg ONCE ONE Administration Lidocaine 1 patch 02/01/25 10:21 02/01/25 10:27 Lidocaine 4 % Patch Adh..Patch TRANSDERMA 02/01/25 10:22 1 patch ONCE ONE Administration Protocol Medical Decision Making Medical Decision Making MDM Narrative: 59-year-old male with pmhx significant for asthma, DM, HTN, GERD, BPH, cardiomyopathy, CAD, s/p pacemaker presents to the ED today for evaluation of right upper back pain x4 days. Vital signs stable. Not hypoxic or tachycardic. Afebrile. He is well-appearing and in no acute distress. Sitting comfortably on the exam bed. On exam, Differential diagnosis includes muscle spasm, MSK sprain/strain. Lower suspicion for ACS, arrhythmia, dissection. Lower suspicion for compression fracture. Unlikely cauda equina, Guillain-[place], epidural abscess, cord compression, hardware malfunction. Plan for screening labs, imaging, pain control and re-evaluation. Differential Diagnosis Differential Diagnoses: The differential diagnosis associated with the presentation includes As above Admission/Observation Not indicated Lab Data MDM Lab Attestation statement: I reviewed the patient's lab results. As above 02/01/25 10:21 02/01/25 10:21 Labs: Lab Results 02/01/25 Range/Units 10:21 WBC 7.0 (4.8-10.8) X10*3/uL RBC 4.89 (4.60-5.80) X10*6/uL Hgb 13.9 L (14.0-18.0) g/dl Hct 41.7 L (42.0-52.0) % MCV 85.3 (80.0-98.0) fL MCH 28.4 (27.0-33.0) pg MCHC 33.3 (31.0-36.0) g/dl RDW 13.1 (11.0-16.0) % Plt Count 196 (160-400) X10*3/uL MPV 9.3 L (9.4-12.4) fL Immature Gran % (Auto) 0.1 (0.0-0.4) % Neut % (Auto) 60.7 (45-73) % Lymph % (Auto) 26.8 (20-40) % Jessamine % (Auto) 10.5 (2-11) % Eos % (Auto) 1.0 (0-4) % Baso % (Auto) 0.9 (0-2) % Lymph # (Auto) 1.9 (1.2-4.9) X10*3/uL Jessamine # (Auto) 0.7 (0.1-1.2) X10*3/uL Eos # (Auto) 0.1 (0.0-0.4) X10*3/uL Baso # (Auto) 0.1 (0.0-0.2) X10*3/uL Abs Immat Gran (auto) 0.01 (0.00-0.03) X10*3/uL Absolute Neuts (auto) 4.2 (2.0-8.3) x10*3/uL Absolute Nucleated RBC 0.000 (0.0-0.012) X10*3/uL Nucleated RBC % (auto) 0.0 (0.0-0.2) /100WBC Sodium 137 (135-145) mmol/L Potassium 4.1 (3.3-5.1) mmol/L Chloride 111 H (96-108) mmol/L Carbon Dioxide 20 L (22-29) mmol/L Anion Gap 10 L (12-20) BUN 16 (9-16) mg/dL Creatinine 0.76 (0.5-1.4) mg/dL Estim Creat Clear Calc 133.2 Estimated GFR > 60 Random Glucose 123 H (60-115) mg/dL Calcium 8.6 D (8.4-10.2) mg/dL Magnesium 1.9 (1.6-2.6) mg/dL Total Bilirubin 0.7 (0.0-1.0) mg/dL AST 24 (5-37) U/L ALT 26 (0-40) U/L Alkaline Phosphatase 66 (39-117) U/L Troponin I High Sens < 2.7 (<3.5-35.0) ng/L Total Protein 6.4 L (6.5-8.0) g/dL Albumin 4.3 (3.5-5.0) g/dL Independent Interpretation I performed an independent interpretation of an: Plain X-Ray Interpretation: Today right shoulder without fracture Radiology Impression Discussion of test interpretation with radiology: I have reviewed the radiologist's reading. Radiologist Impression: Procedure(s): XR shoulder RT min 2V Accession Number(s): [id number] cc: Generic ED Physician; VAMSHI ROSE MD~ Reason for Exam: rt shoulder pain CLINICAL HISTORY: rt shoulder pain 4 view right shoulder Comparison: None provided Findings: Bones intact. No dislocations. No significant arthritic change. No erosions. No radiopaque foreign body. IMPRESSION: 1. No acute findings This document has been electronically signed by: Peyman Adkins MD on 02/01/2025 09:26:59 External Record Review External record reviewed: Inpatient record Prescription Management I considered prescription management with: Other (Methocarbamol, lidocaine) Chronic Conditions Patient?s care impacted by: Diabetes and Hypertension Social Determinants Patient?s care significantly limited by Social Determinants of Health including: Other Social Determinant of Health Critical Care Time Critical Care Time Critical Care Time: No Discharge Plan Discharge Clinical Impression: Back pain Patient Disposition: Home, Self-Care Instructions: Back Pain (ED) Additional Instructions: You were evaluated in the Emergency Department today for your back pain.? Your evaluation did not show signs of medical conditions requiring emergent intervention at this time. Avoid bending, lifting, or twisting. Use ice several times per day for 20 minutes at a time for the next 48 hours and then change to heat. I recommend you take 600mg ibuprofen every 6 hours or tylenol 650mg every 6 hours as needed for pain. If needed, you can alternate these medications so that you take one medication every 3 hours. For example, at noon take ibuprofen, then at 3pm take tylenol, then at 6pm take ibuprofen. Methocarbamol is a muscle relaxer Lidoderm patches are numbing patches. Apply to painful areas. Please schedule an appointment for follow-up with your primary care provider this week for further evaluation of your symptoms. Return to the Emergency Department if you experience worsening back pain, difficulty walking, fevers, numbness, tingling, incontinence, or any other concerning symptoms. In the case of an emergency call 911. Prescriptions: New lidocaine 5 % adhesive patch,medicated See Rx Instructions .ROUTE .COMPLEX Qty: 15 0RF Rx Instructions: leave on most painful area for up to 12 hrs methocarbamol 1,000 mg tablet 1,000 mg PO TID PRN (Reason: muscle pain) 3 Days Qty: 9 0RF No Action ibuprofen 800 mg tablet 800 mg PO Q8H PRN (Reason: pain) 30 Days Qty: 90 3RF alprazolam 2 mg tablet 1 tab PO BID PRN (Reason: anxiety) albuterol sulfate 90 mcg/actuation HFA aerosol inhaler 2 puff inhalation Q4H PRN (Reason: Wheezing) multivitamin with folic acid [Tab-A-Kelsie] 400 mcg tablet 1 tab PO DAILY naloxone [Narcan] 4 mg/actuation spray,non-aerosol 1 spray intranasal DAILY montelukast [Singulair] 10 mg tablet 10 mg PO DAILY methadone 10 mg tablet 10 mg PO TID PRN (Reason: Pain) duloxetine 60 mg capsule,delayed release(DR/EC) 60 mg PO DAILY hydrocortisone [Procto-Med HC] 2.5 % cream with perineal applicator 1 appl MA BID-QID PRN (Reason: hemorrhoids) Qty: 30 0RF (DME) FreeStyle Lite Strips Strip See Rx Instructions .ROUTE TID Qty: 10 Rx Instructions: As directed (DME) pen needle, diabetic [Comfort EZ Pen [place]] 33 gauge x 1/4 needle See Rx Instructions .ROUTE .MEDSUPPLY Qty: 100 Rx Instructions: As directed metformin 750 mg tablet extended release 24 hr 750 mg PO DAILY tizanidine 4 mg tablet 4 mg PO TID PRN (Reason: Pain) magnesium oxide 400 mg (241.3 mg magnesium) tablet 400 mg PO DAILY testosterone enanthate 200 mg/mL oil 150 mg IM Q2W (DME) pen needle, diabetic [UltiCare Pen Needle] 31 gauge x 5/16 needle See Rx Instructions .ROUTE .MEDSUPPLY Qty: 1200 Rx Instructions: As directed Linzess 290 mcg capsule 290 mcg PO DAILY PRN (Reason: Constipation) levocetirizine 5 mg tablet 5 mg PO DAILY spironolactone 25 mg tablet 25 mg PO DAILY Entresto 49-51 mg tablet 1 tab PO BID Toujeo Max U-300 SoloStar 300 unit/mL (3 mL) insulin pen 8 unit subcut DAILY aspirin 81 mg tablet,delayed release (DR/EC) 81 mg PO DAILY bupropion HCl 150 mg tablet extended release 24 hr 150 mg PO QAM bupropion HCl 300 mg tablet extended release 24 hr 300 mg PO DAILY naproxen 500 mg tablet 500 mg PO BID PRN (Reason: Pain) Mounjaro 15 mg/0.5 mL pen injector 15 mg subcut QWEEK (DME) True Comfort Safety Pen Needle 32 gauge x 5/32 needle See Rx Instructions .ROUTE .MEDSUPPLY Qty: 100 Rx Instructions: As directed carvedilol 3.125 mg tablet 3.125 mg PO BID finasteride [Proscar] 5 mg tablet 5 mg PO DAILY 90 Days Qty: 90 3RF tamsulosin 0.4 mg capsule 0.4 mg PO DAILY Qty: 90 3RF cholecalciferol (vitamin D3) 25 mcg (1,000 unit) capsule 25 mcg PO DAILY atorvastatin 80 mg tablet 80 mg PO DAILY fluticasone propionate 50 mcg/actuation spray,suspension 1 spray intranasal BID Arnuity Ellipta 100 mcg/actuation blister with device 1 inh inhalation DAILY glipizide 5 mg tablet 5 mg PO BID ondansetron HCl 4 mg tablet 4 mg PO Q8H PRN (Reason: Nausea) lidocaine 4 % gel 1 appl topical BID PRN (Reason: pain) Qty: 30 0RF Rx Instructions: apply to affected area, monitor area for any signs of rash or skin breakdown zolpidem 10 mg tablet 10 mg PO BEDTIME MDD 10mg PRN (Reason: insomnia) 90 Days Qty: 30 2RF Referrals: Vamshi Rose MD [Primary Care Provider, Emergency Medicine] Interventions: ED Discharge Assessment Last Done: 02/01/25 11:13 Discharge Date/Time: 02/01/25 11:13 Print Language: Mexican
--- NOTE | 2025-02-01 09:58 | ECG_ITS ---
Test Reason : SHOULDER PAIN Blood Pressure : */* mmHG Vent. Rate : 87 BPM Atrial Rate : 87 BPM P-R Int : 162 ms QRS Dur : 98 ms QT Int : 352 ms P-R-T Axes : 17 -15 46 degrees QTcB Int : 423 ms Normal sinus rhythm Normal ECG When compared with ECG of 19-Feb-2002 15:17, No significant change was found Referred By: Rubina Godoy Electronically Signed By: SUSAN SPIVEY MD
[2025-02-01] MEDS: Lidocaine 4 % Patch ADH..PATCH 1 PATCH TRANSDERMA (10:27)
[2025-02-01 10:30] LABS: MANUAL DIFF FLAG NO
[2025-02-01 10:31] LABS: Hematocrit 41.7 % (42.0-52.0); Hemoglobin 13.9 g/dl (14.0-18.0); Imm Gran Abs Auto 0.01 X10*3/uL (0.00-0.03); Imm Gran Pct Auto 0.1 % (0.0-0.4); Lymphocytes Absolute Auto 1.9 X10*3/uL (1.2-4.9); Mean Corpuscular HGB Conc 33.3 g/dl (31.0-36.0); Mean Corpuscular Hemoglobin 28.4 pg (27.0-33.0); Mean Corpuscular Volume 85.3 fL (80.0-98.0); NRBC Abs Auto 0.000 X10*3/uL (0.0-0.012); NRBC Pct Auto 0.0 /100WBC (0.0-0.2); Platelet Count 196 X10*3/uL (160-400); Red Blood Count 4.89 X10*6/uL (4.60-5.80); White Blood Count 7.0 X10*3/uL (4.8-10.8)
[2025-02-01 10:44] LABS: Alanine Aminotransferase 26 U/L (0-40); Albumin Level 4.3 g/dL (3.5-5.0); Alkaline Phosphatase 66 U/L (39-117); Anion Gap 10 (12-20); Aspartate Amino Transferase 24 U/L (5-37); Blood Urea Nitrogen 16 mg/dL (9-16); Calcium 8.6 mg/dL (8.4-10.2); Carbon Dioxide 20 mmol/L (22-29); Chloride 111 mmol/L (96-108); Creatinine Clr Calc Pharmacy 133.2; Estimated Glomerular Filt Rate > 60; Magnesium 1.9 mg/dL (1.6-2.6); Potassium 4.1 mmol/L (3.3-5.1); Sodium 137 mmol/L (135-145); Total Protein 6.4 g/dL (6.5-8.0)
--- OUTSIDE RECORDS SUMMARY | 2025-02-01 10:45 | XMS_ITS | Clinical Summary ---
Author Organization [facility] Address [address] [facility] [address] [place] [address] Phone Care Team Providers Care Can Handler Name Role Phone Vamshi Man MD Primary Care Provider [phone] Allergies Active Allergy Reactions Criticality Noted Date [...] Lateral epicondylitis 11/23/2021 Overview (11/23/2021): s/p Modified [place] procedure, repair of conjoined tendon of extensor [...] today Switched from Losartan to Entresto by [employer] recently Renal osteodystrophy 11/23/2021 Diabetes mellitus 01/06/2021 Nephrotic syndrome 01/06/2021 Renal mass 01/06/2021 Overview (07/19/2023): Benign on biopsy 2017 He gets q6 month MRI for pancreatic cyst, confirming simple cysts Snoring 03/18/2004 Obstructive sleep apnea syndrome 03/18/2004 Resolved Problems Problem Noted Date Diagnosed Date Resolved Date Stage 3a chronic kidney disease 11/23/2021 07/19/2023 Encounters Date Type Department Care Team Description 01/08/2025 Refill [facility] [address] [address] Caprice Mary TEST CONSULTANT Type 2 diabetes mellitus with diabetic chronic kidney disease (HCC) 12/09/2024 Refill [facility] [address] [address] Caprice MaryJAMISONP Type 2 diabetes mellitus with diabetic chronic [...] Office Visit [facility] P.CZayra [address] [address] Caprice Mary ARNP [address] [address] Health Maintenance Due Date Last [...] %Hb [employer] Comment: Reference Range: [place] Diabetes Association (ADA) Guidelines: <5.7: Decreased risk for diabetes 5.7 - 6.4: Increased risk for diabetes >6.4: Ongoing Hyperglycemia of any cause <7.0: Glycemic control for adults with diabetes Estimated Average Glucose 126 mg/dL [employer] 07/16/2024 9:59 AM EDT 07/16/2024 Caprice SMITH LAB BLOOD ORDERABLES Final Result [facility] [employer] [address] [place] [phone] from Last 3 Months or Most Recently Relevant to Health Maintenance Insurance Medicare Medicaid [place] Medicare Medicaid [place] Care Teams Can Handler Relationship Specialty Start Date End Date Vamshi Man MD [facility] [address] [facility] [address] [place], [place] PCP - General 04/26/20
--- OUTSIDE RECORDS SUMMARY | 2025-02-01 10:45 | XMS_ITS | Clinical Summary ---
Author Organization [facility] Address [address] [place] [address] Care Team Providers Care Drum Maker Name Role Phone Vamshi Man MD Primary Care Provider [phone] Encounters Date Type Department Care Team Description 01/06/2025 10:00 AM EDT Telehealth [facility] [address] [place] [address] [phone] Air Marshal: Iliana Jaramillo CGC Cardiomyopathy, unspecified type (HCC) (Primary Dx) 01/06/2025 myChart Message [facility] [address] [place] [address] [phone] Air Marshal: Iliana Jaramillo [facility] Genetics Follow Up from Last 3 Months Social History Tobacco Use Types Packs/Day Years Used Date Smoking Tobacco: Never Assessed Sex and Gender Information Value Date Recorded Sex Assigned at Male 07/23/2024 11:10 AM EDT Legal Sex Male 8:49 AM EDT Gender Identity Male 12/31/2024 6:51 PM EDT Sexual Orientation Don't know 12/31/2024 6: 51 PM EDT Plan of Treatment Health Maintenance Due Date Last Done Comments Cologuard 1965 Colon Cancer Screening 1965 Colonoscopy 1965 FOBT / Fit Test 1965 HIV Screening 1965 Hepatitis C Screening 1965 Sigmoidoscopy 1965 Medicare AWV 1966 Alcohol/Substance Use Screening 04/16/2024 Depression Screening and Follow-Up 04/16/2024 Social Drivers of Health Kyra ual Screening 04/16/2024 COVID-19 Vaccine (6 - 2024-2 6 season) 2024 05/06/2024, 11/11/2021, 02/23/2021, Additional history exists DTaP,Tdap,and Td Vaccines (3 - Td or Tdap) 09/30/2027 09/29/2017, 01/18/2012, 2005 RSV Vaccine (60+ years old a nd patients) (1 - 1-dose 75+ series) 2040 Hepatitis B Vaccines Completed 06/04/2003, 12/19/2002, 11/18/2002 Zoster Vaccines Completed 02/06/2018, 11/26/2017 Pneumococcal Vaccine: 50+ Years Completed , 2005 Influenza Vaccine Completed 12/17/2024, , 01/05/2023, Additional history exists Insurance MEDICARE [facility] Care Teams Drum Maker Relationship Specialty Start Date End Date Vamshi Man MD [address] [place] [phone] PCP - General Internal Medicine 07/22/24
--- OUTSIDE RECORDS SUMMARY | 2025-02-01 10:45 | XMS_ITS | Encounter Summary ---
Author Organization [facility] Address [address] [place] [address] Care Team Providers Care Check Clerk Name Role Phone Vamshi Man MD Primary Care Provider [phone] Encounter Details Date Type Department Care Team (Late st Contact Info) Description 01/06/2025 myChart Message [facility] [address] [place] [address] Body Engineer: Iliana Jaramillo, [facility] [address] [place], [place] [phone] Genetics Follow Up Social History Tobacco Use Types Packs/Day Years Used Date Smoking Tobacco: Never Assessed Sex and Gender Information Value Date Recorded Sex Assigned at Male 07/23/2024 11:10 AM EDT Legal Sex Male 8:49 AM EDT Gender Identity Male 12/31/2024 6:51 PM EDT Sexual Orientation Don't know 12/31/2024 6: 51 PM EDT documented as of this encounter Plan of Treatment Not on file documented as of this encounter Visit Diagnoses Not on filedocumented in this encounter Care Teams Check Clerk Relationship Specialty Start Date End Date Vamshi Man MD [address] [place] [phone] PCP - General Internal Medicine 07/22/24 documented as of this encounter
--- OUTSIDE RECORDS SUMMARY | 2025-02-01 10:46 | XMS_ITS | Patient Health Record ---
Author Organization [facility] Address [address] [place] [id number] Care Team Providers Care Naval Inspector Name Role Phone Arana Clarence Unavailable [phone] Reason For Referral No Information Plan Of Treatment No Information
--- OUTSIDE RECORDS SUMMARY | 2025-02-01 10:46 | XMS_ITS | Encounter Summary ---
Author Organization [facility] Address [address] [address] Phone Care Team Providers Care Motor Coach Tour Operator Name Role Phone Vamshi Man MD Primary Care Provider [phone] Reason for Visit * Reason Comments Med Refill Encounter Details Date Type Department Care Team (Late Contact Info) Description 01/08/2025 Refill [facility] [address] [address] Caprice Mary ARNP [address] [address] Type 2 diabetes mellitus with [...] Office Visit [facility] [address] [address] Caprice Mary ARNP [address] [address] documented as of this encounter Visit Diagnoses Diagnosis Type 2 diabetes mellitus with diabetic chronic kidney disease (HCC) documented in this encounter Care Teams Motor Coach Tour Operator Relationship Specialty Start Date End Date Vamshi Man MD [facility] [address] [place], [place] PCP - General 04/26/20 documented as of this encounter
--- OUTSIDE RECORDS SUMMARY | 2025-02-01 10:46 | XMS_ITS | Clinical Summary ---
Author Organization [facility] Address [address] [place] [address] Care Team Providers Care Veterinary Pathologist Name Role Phone Vamshi Man MD Primary Care Provider [phone] Allergies Active Allergy Reactions Criticality Noted Date [...] age to complete this topic Care Teams Veterinary Pathologist Relationship Specialty Start Date End Date Vamshi Man MD [address] [place] [id number] PCP - General Internal Medicine 05/02/23
--- OUTSIDE RECORDS SUMMARY | 2025-02-01 10:46 | XMS_ITS | Clinical Summary ---
Author Organization [facility] Address [address] [place] [address] Phone Care Team Providers Care Time Motion Analyst Name Role Phone Vamshi Man MD Primary Care Provider Allergies Active Allergy Reactions Criticality Noted Date Comments Latex Rash 02/17/2021 Labette Itching 01/29/2025 Itchy mouth and swelling of lips Penicillins Rash Low 12/17/2009 Medications albuterol HFA [...] mouth 1 (one) time each day. 11/04/19 21 Active DULoxetine (CYMBALTA) [address] capsule Take 1 capsule (60 mg total) by mouth 1 (one) time each day. 01/04/20 21 Active fluticasone HFA (Flovent HFA) 110 mcg/actuation [...] by mouth at bedtime as needed. 09/16/19 Active metformin HCl (METFORMIN ORAL) Take 750 tablets by mouth 1 (one) time each day. Active Toujeo Max U-300 SoloStar 300 unit/mL (3 mL) CONCENTRATED injection pen Inject 10 Units under the skin at bedtime. 03/12/20 24 Active Mounjaro 15 mg/0.5 mL injection Inject 50 mg under the skin every 7 (seven) days. 05/09/19 Active atorvastatin (LIPITOR) 80 mg tablet Take [...] split. 180 tablet 1 12/09/19 25 Active brimonidine (ALPHAGAN) 0.2 % ophthalmic solution [...] (DELATESTRYL) 200 mg/mL injection 12/20/19 25 Active polyethylene glycol (Golytely) 236-22.74-6.74 -5.86 gram solution Take 4L by mouth once for one dose. May substitue any PEG. Starting at 2PM the day before your procedure drink 1 8oz glasses at your own pace until you complete half of the gallon. Finish 2nd half of the gallon at 8PM. 4000 mL 01/23/20 25 Active bisacodyL (DULCOLAX) 5 mg EC tablet Take 2 tablets by mouth right before beginning bowel prep. See instructions provided by the office 2 tablet 01/23/20 25 Active ondansetron (ZOFRAN) 4 mg tabletIndication s:Gastroesophage al reflux disease, unspecified whether esophagitis present,Gastropa resis,Oral phase dysphagia,Divert iculosis Take 1 tablet (4 mg total) by mouth 3 (three) times a day. 20 tablet 1 12/09/19 25 025 Active Problems Problem Noted Date Diagnosed Date SSS (sick sinus syndrome) ([facility] V24, [facility] V28) 09/04/2024 Assessment & Plan (11/11/2024 3:35 [...] immunofixation study. The patient was evaluated by [facility] in May 2023 due to his elevated serum kappa lambda ratio and they determined that the patient did not have any plasma cell disorder. 4. 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 The patient was referred to the [facility] genetic medicine program. Last documented LVEF: 45 to 50% on echocardiogram done in November 2022; 47% by cardiac MRI done in February 2023 Current symptom classification: NYHA class 2 Guideline directed medical therapy: 1. Beta-blockers: NONE 2. ARNI / GLORIA inhibitor / ARB: Entresto 49/51 mg orally daily 3. MRA: Spironolactone 25 mg orally daily Candidate for ICD or SPEECH LANGUAGE PATHOLOGIST: Not a candidate due to the LVEF [...] immunofixation study. The patient was evaluated by [facility] in May 2023 due to his [...] mg orally daily Candidate for ICD or SPEECH LANGUAGE PATHOLOGIST: Not a candidate due to the LVEF [...] immunofixation study. The patient was evaluated by [facility] in May 2023 due to his elevated serum kappa lambda ratio and they determined that the patient did not have any plasma cell disorder. 4. 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 The patient was referred to the [facility] genetic medicine program. Last documented LVEF: [...] SGLT2 inhibitor: None Candidate for ICD or SPEECH LANGUAGE PATHOLOGIST: Not a candidate due to the LVEF [...] immunofixation study. The patient was evaluated by [facility] in May 2023 due to his elevated serum kappa lambda ratio and they determined that the patient did not have any plasma cell disorder. 4. 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 The patient was referred to the [facility] genetic medicine program. Last documented LVEF: [...] SGLT2 inhibitor: None Candidate for ICD or SPEECH LANGUAGE PATHOLOGIST: Not a candidate due to the LVEF [...] was referred for an evaluation with the [facility] service who determined that the patient did not have a plasma cell disorder and therefore does not have AL amyloidosis. The patient's brother has a history of a cardiomyopathy and cardiac arrhythmias and is currently hospitalized in [place] awaiting a cardiac transplant. The patient underwent genetic testing ([facility] [employer] comprehensive cardiomyopathy panel) and the test showed that he is a carrier of 1 pathogenic variant in the gene [id number] which is associated with an autosomal recessive primary carnitine deficiency. We refer the patient for an evaluation with the [facility] genetics program but the patient states [...] immunofixation study. The patient was evaluated by [facility] in May 2023 due to his elevated serum kappa lambda ratio and they determined that the patient did not have any plasma cell disorder. 4. 8. 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 The patient was referred to the [facility] genetic medicine program. Last documented LVEF: [...] mg orally daily Candidate for ICD or SPEECH LANGUAGE PATHOLOGIST: Not a candidate due to the LVEF Orders: spironolactone (ALDACTONE) 25 mg tablet; Take 1 tablet (25 mg total) by mouth 1 (one) time each day. Chronic kidney disease, stage 2 (mild) 2 Stage 3a chronic kidney disease (CMS/HCC V24, CM S/HCC V28) 11/23/2021 Cervical spondylosis 11/23/2021 Assessment & Plan (01/01/2025 5:39 PM EDT): Patient has history of C5-[address] Mukherjee 2019 at [facility], states at the time he had neck pain and was told he had a pinched nerve. He states after surgery he got worse, currently is describing significant chronic neck pain and mild bilateral hand numbness (states he has had that since his elbow and wrist surgeries). He was referred here by gastroenterology, he also has history of difficulty swallowing, patient states 4-5 years, almost daily trouble swallowing especially hard foods , like rice, meats. He states he does okay with things like soup, scrambled eggs, no issues with liquids. He describes his swallow issue as vomiting /GERD, it is a little unclear but he reports he had some swallow issues after anterior cervical surgery, but swallowing has progressively worsened. He has quite an extensive history for orthopedic surgeries, including right shoulder surgery, bilateral elbow, carpal tunnel, right hand trigger finger surgeries. He reports pain from his neck, trap to right shoulder. He also has recent cardiac issues, had a pacemaker placed for high-grade AV block, SSS. He was scheduled to have hardware removed from his right ankle, they could not do surgery due to his heart issues. He states occasionally he will use ibuprofen or naproxen, but it upsets his stomach so does not use it frequently. Patient had barium swallow study for his dysphagia, on the video I was able to see the screws at C5-6 for fusion, he has overall mild anterior osteophyte C4-5, does not appear to be in contact with posterior esophagus when he swallowing, radiologist report states moderate anterior osteophyte C4-5 could be contributing factor to patient's globus sensation, however I do not think this is contributing. I reviewed the imaging with the patient on the computer. Mr. Jerzy Wilks is describing neck pain that has been worsening with time s/p C5-6 fusion, he has overall mild C4-5 anterior osteophytes, some degenerative changes at this level, I could not see below C5-6 level on barium swallow. I told patient I could order cervical MRI to get better pictures of the discs and nerves, for now we will start with C[facility]spine x-[facility] at [facility]. We talked about conservative treatment options like physical therapy. Prescription provided to patient, he agrees to try PT. He states his insurance does not cover acupuncture, has not pursued this in the past. (At this time given his cardiac issues he does not sound like he would be cleared for surgery). I will review all his imaging with Dr. Hawley, see if she feels the C4- 5 anterior osteophytes would contribute to his dysphagia. All questions answered. We used plans examiner Joellen #[id number]. Renal osteodystrophy 11/23/2021 Plantar fasciitis 11/23/2021 Low [...] 10/31/2017 Diabetes mellitus type 2, un complicated (CMS/[facility] V24, CMS/[facility] V28) 04/05/2017 Chronic constipation 02/02/2017 Renal lesion [...] palpitations. 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 He had 38 symptomatic events during the [...] actual syncope. During a recent 30-day ambulatory wood preparation supervisor, the patient was found to have a [...] near syncope in the past. 30-day ambulatory wood preparation supervisor showed instances of high-grade AV block with a pause of up to 3 seconds. As a result of this, his carvedilol was decreased from 6.25 mg orally twice a day down to 3.5 mg orally twice a day. After the changing the dose of the beta-sabiha, no further episodes of high-grade AV block or sinus pauses were noted on the ambulatory wood preparation supervisor. Of note, there was no evidence of [...] CT scan is scheduled for [facility]/20/2023 at [facility]. In the meantime, the patient will continue [...] Encounters Date Type Department Care Team Description 01/13/2025 Telephone [facility] Cardiology [address] [place] [address] Melly Kern NP 01/12/2025 7:25 PM EDT Ancillary Procedure [facility] [address] [facility] [address] [place] [address] 01/09/2025 Telephone [facility] [address] [facility] [address] [place] [phone] Cecy Fisher PA 01/01/2025 3:30 PM EDT Office Visit Orthopedic Surgery [facility] [address] [facility] [address] [place] [phone] Cheng Rea, DPM Tendinitis of right ankle (Primary Dx); Plantar fascial fibromatosis 01/01/2025 12:26 PM EDT - 01/01/2025 11:59 PM EDT Hospital Encounter [facility] X[facility] [address] [place] [phone] Cervical spondylosis Discharge Disposition: Home or Self Care 01/01/2025 9:30 AM EDT Consult Neurosurgery [facility] [address] [facility] [address] [place] [phone] Cecy Fisher PA Cervical spondylosis (Primary Dx); Gastroesophageal reflux disease, unspecified whether esophagitis present; Gastroparesis; Oral phase dysphagia; Diverticulosis; Family history of colon cancer 12/08/2024 9:10 AM EDT Office Visit G[facility]ology - [place] [address] [facility] [address] [place] [phone] Idalia Sandoval PA Gastroesophageal reflux disease, unspecified whether esophagitis present (Primary Dx); Gastroparesis; Oral phase dysphagia; Diverticulosis; Family history of colon cancer 11/25/2024 10:46 AM EDT - 11/25/2024 2:16 PM EDT Emergency [facility] [address] [place] [phone] Peyman Lake MD Lightheadedness (Primary Dx); Chronic HFrEF (heart failure with reduced ejection fraction) (CMS/HCC V24, CMS/HCC V28) Discharge Disposition: Home or Self Care 11/19/2024 2:00 PM EDT Office Visit Orthopedic Surgery - [place] [address] [facility] [address] [place] [phone] Cheng Rea DPM Tendinitis of left ankle (Primary Dx); Tendinitis of right ankle; Plantar fascial fibromatosis 11/12/2024 Telephone [facility] Cardiology [facility] [address] [facility] [address] [place] [address] Manuel Aldrich MD 11/11/2024 10:10 AM EDT Office Visit [facility] [address] [place] [phone] Melly Kern NP Primary hypertension (Primary Dx); Chronic HFrEF (heart failure with reduced ejection fraction) (CMS/HCC V24, CMS/HCC V28); SSS (sick sinus syndrome) (CMS/HCC V24, CMS/HCC V28); Mixed hyperlipidemia; Cardiomyopathy, unspecified type (CMS/HCC V24, CMS/HCC V28); Coronary artery disease involving enterprise coronary artery of enterprise heart without angina pectoris 11/06/2024 Telephone [facility] [address] [facility] [address] [place] [phone] Cecy De Luna MA 11/05/2024 2:00 PM EDT Ancillary Procedure [facility] [address] [facility] [address] [place] [address] from Last 3 Months Immunizations Immunization Administration Dates Next Due H1N1 Inj 02/16/2009 Hepatitis A Adult (Havrix; V aqta) 19yo and older 06/02/2004,02/21/2003 Hepatitis B (Tuqnvwq-H-Xcfjx , Recombivax HB-Adult) 19yo and older 06/04/2003,12/19/2002,11/18/2002 Influenza Whole 01/26/2021 Influenza, Unspecified 01/20/2020,2018,01/11/2018,01/10,01/28/2016,01/15/2016,01/14/2015 ,01/01/2014,01/15/2013,01/04/2012,12/16,01/25/2010,01/05/2009, 6 Pfizer (ages 12 & older) LORY S-CoV-2 COVID-19, mRNA, LNP-S, adele-sucrose, preservative free 11/11/2021 Pneumococcal polysaccharide 23 valent (Pneumovax 23) 2yo and older 2005 Td, Unspecified 2005 Tdap Tetanus diptheria acell ular pertussis (Boostrix; Adacel) 7yo and older 09/29/2017,01/18/2012 Zoster recombinant (Shingrix ) 19yo and older 02/06/2018,11/26/2017 Surgical History Surgery Date Site/Laterality Comments ORTHOPEDIC SURGERY History of multiple orthopedic surgeries including right shoulder, bilateral elbow and carpal tunnel, right hand trigger finger, right ankle surgery ORIF PACEMAKER IMPLANT 04/16/2024 - 04/15/2025 CERVICAL SPINE SURGERY 04/16/2018 - 04/15/2019 C5-6 ACDF, Dr. Mukherjee, [facility] Medical History Medical History Date Comments Anal fissure 11/23/2016 Chronic constipation 08/16/2017 DX:Chronic constipation Diabetes mellitus type 2, un complicated (CMS/HCC V24, CMS/HCC V28) 04/05/2017 Dysphagia 06/21/2016 Esophageal reflux 11/19/2017 Gastroparesis 10/31/2017 History of diverticulitis of colon 01/02/2017 Internal hemorrhoids with complication 7 Irritable bowel syndrome 02/02/2017 Renal lesion 02/01/2017 Urethral stone 07/21/2014 Alcohol abuse Allergic rhinitis Anxiety disorder Cervical disc disorder with radiculopathy Chronic back pain Lateral epicondylitis of elbow Chronic pain syndrome Condyloma acuminatum of penis Deficiency of testosterone biosynthesis Diverticulitis of colon recurren t with bleeding Erectile dysfunction Fecal incontinence Gastroesophageal reflux disease Gastroparesis diabeticorum ( CMS/HCC V24, CMS/HCC V28) Hx of syphilis Non-alcoholic fatty liver disease DHARA (obstructive sleep apnea) Osteoarthritis of cervical and lumbar spine Plantar fasciitis Shoulder impingement syndrome, right Snoring Arthritis High blood pressure Social History Tobacco [...] EDT Inhaled Oxygen Concentration - - Weight 102 kg (225 lb) 01/29/2025 10:00 AM EDT Height 188 cm (6' 2 ) 01/29/2025 10:00 AM EDT Body Mass Index 28.89 01/29/2025 10:00 AM EDT Plan of Treatment Upcoming Encounters Date Type Department Care Team (Late st Contact Info) Description 02/05/2025 7:30 AM EDT Hospital Encounter [facility] [address] [place] [address] Kash Hammonds MD [address] [place] [address] 02/16/2025 2:00 PM EST Office Visit Orthopedic Surgery - [place] [address] [facility] [address] [place] [phone] Cheng Rea DPM [address] [facility] [address] [place] [phone] 02/17/2025 11:20 AM EST Office Visit [facility] [address] [place] [address] [address] [place] [phone] Manuel Aldrich MD [address] [place] [address] [address] [place] [phone] 03/30/2025 8:30 AM EST Office Visit Gastroenterology [facility] 175 [facility] 175 [facility] [address] [place] [phone] Idalia Sandoval PA 175 [facility] [address] [place] [address] Health Maintenance Due Date Last Done Comments Diabetes: Annual Foot Exam 1975 Diabetes: Annual Retina Eye Exam 1975 RSV Immunization Adult Patients (1 - Risk 50-74 years 1-dose series) 2015 Cholesterol Screening (Lipid Panel) 03/25/2022 HIV Screening [...] 2005 Colorectal Cancer Screening: Colonoscopy 02/11/2030 02/12/2020 Hepatitis B Vaccines Completed 06/04/2003, 12/19/2002, 11/18/2002 [...] on patient's age to complete this topic Goals Goal Patient Goal Type Associated Problems Recent Progress Patient-Stated? Author Autogenerat ed Goal Care Plan Autogenerated Problem No Eligio [employer] Medical Devices Implanted Type Area Switchgear Repairer Device Identifier Shelf Expiration Date Model / Serial / Lot Lead Ipg Select Secure 69cm Catheter Delivered Lead - [id number] - [id number] Implanted:Qty: 1 on 10/13/2024 by Musa Cheung MD at [facility] Cardiac Lead N/A: Heart [employer] - CARDIAC RHYTH-[facility] [id number] 07/10/2026 [id number] / [id number] / Lead Pcmkr Ame Hooper 52cm - [id number] - [id number] Implanted:Qty: 1 on 10/13/2024 by Musa Cheung MD at [facility] Cardiac Lead N/A: Heart [employer] - CARDIAC RHYTH-[facility] [id number] 12/19/2025 [id number] / [id number] / Monitor Cardiac Insert Lux Dx Ii+ - [id number] - [id number] Implanted:Qty: 1 on 05/16/2024 by Musa Cheung MD at [facility] Cardiac Loop Recorder Left: Chest [place] Osmosis CARD RHYTHM MGMT [id number] 09/12/2025 [id number] / [id number] / Pacemaker Cardiac [place] Xt Dr Arriola - [id number] - [id number] Implanted:Qty: 1 on 10/13/2024 by Musa Cheung MD at [facility] Cardiac Pacemaker Chest Wall [employer] - CARDIAC RHYTH-CRD [id number] 10/11/2025 [id number] / [id number] / Medt-Card [facility] Xt Dr Arriola [id number] Implanted:09/16 (Quantity not on file) Cardiac Pacemaker [employer] - CARDIAC RHYTH-CRDM MILAGROS XT DR ARRIOLA [id number] / [id number] / Medt-Card [place] Xt Dr Arriola [id number] Implanted:09/16 (Quantity not on file) Cardiac Pacemaker [employer] - CARDIAC RHYTH-CRDM MILAGROS XT DR ARRIOLA / [id number] / Hemostat Absorb 1x2 Surgicel Fibrillar - [id number] - [id number] Implanted:Qty: 1 on 10/13/2024 by Musa Cheung MD at [facility] Hemostasis Chest Wall [employer] [id number] 09/13/2026 1961 / [id number] / Procedures Procedure Name Priority Date/Time Associated Diagnosis Comments CARDIAC DEVICE CHECK- REMOTE- MURJ Routine 01/12/2025 7:22 PM EDT INJECTION TENDON OR LIGAMENT Routine 01/01/2025 3:30 PM EDT Tendinitis of right ankle Plantar fascial fibromatosis XR CERVICAL SPINE 4-5 VIEWS Routine 01/01/2025 12:36 PM EDT Cervical spondylosis ECG ANNOTATED 11/26/2024 ECG 12-LEAD STAT 11/25/2024 11:12 AM EDT CBC WITH AUTO DIFFERENTIAL STAT 11/25/2024 9:14 AM EDT MAGNESIUM STAT 11/25/2024 9:14 AM EDT BASIC METABOLIC PANEL STAT 11/25/2024 9:14 AM EDT CBC AND DIFFERENTIAL STAT 11/25/2024 9:14 AM EDT INJECTION TENDON OR LIGAMENT Routine 11/19/2024 2:00 PM EDT Tendinitis of left ankle HM COLONOSCOPY Routine 02/12/2020 from Last 3 Months or Most Recently Relevant to Health Maintenance Results * Cardiac device check - Remote- MURJ (01/12/2025 7:22 PM EDT) Date Time Interrogation Session [id number] CV DEVICE CHECK Type Interrogation Session Remote CV DEVICE CHECK Implantable Pulse Generator Switchgear Repairer MDT CV DEVICE CHECK Implantable Pulse Generator Type IPG CV DEVICE CHECK Implantable Pulse Generator Model Milagros XT MRI [id number] CV DEVICE CHECK Implantable Pulse Generator Serial Number [id number] CV DEVICE CHECK Implantable Pulse Generator Implant Date 20241013 CV DEVICE CHECK Battery Remaining Longevity 176.0 CV DEVICE CHECK Battery Voltage 3.180 CV D EVICE CHECK Battery GREASE MAN Trigger 2.625 CV DEVICE CHECK Battery Status Middle of Service CV DEVICE CHECK Anthony Statistic RA Percent Paced 1.99 CV DEVICE CHECK Anthony Statistic RV Percent Paced 0.04 CV DEVICE CHECK Atrial Tachy Statistic AT/AF [place] Percent 0.00 CV DEVICE CHECK Lead Channel Sensing Intrinsic Amplitude 2.625 CV DEVICE CHECK Lead Channel Setting Sensing Sensitivity 0.30 CV DEVICE CHECK Lead Channel Impedance Value 437 CV DEVICE CHECK Lead Channel Pacing Threshold Amplitude 0.625 CV DEVICE CHECK Lead Channel Pacing Threshold Pulse Width 0.4 CV DEVICE CHECK Lead Channel RA Pacing Threshold Date 2025-01-03 CV DEVICE CHECK Lead Channel Setting Pacing Amplitude 3.500 CV DEVICE CHECK Lead Channel Setting Pacing Pulse Width 0.4 CV DEVICE CHECK Lead Channel Sensing Intrinsic Amplitude 23.250 CV DEVICE CHECK Lead Channel Setting Sensing Sensitivity 0.90 CV DEVICE CHECK Lead Channel Impedance Value 665 CV DEVICE CHECK Lead Channel Pacing Threshold Amplitude 0.750 CV DEVICE CHECK Lead Channel Pacing Threshold Pulse Width 0.4 CV DEVICE CHECK Lead Channel RV Pacing Threshold Date 2025-01-03 CV DEVICE CHECK Lead Channel Setting Pacing Amplitude 3.500 CV DEVICE CHECK Lead Channel Setting Pacing Pulse Width 0.4 CV DEVICE CHECK Anthony Setting Mode (NBG Code) AAIR<=>DDDR CV DEVICE CHECK Anthony Setting Lower Rate [...] Anatomical Region Laterality Modality Device Interroga tion 01/03/2025 1:04 AM EDT Impressions 01/12/2025 7:19 PM EDT Normal Remote: With Events * Normal Device Function * Events or Alerts: 2 VT longest 8 beats * Battery: OK, 14.67 yrs * Sensing, impedance and thresholds reviewed * Programmed parameters reviewed * Presenting rhythm reviewed * Heart Rate Histograms reviewed Narrative Procedure Note Musa Cheung MD - 01/12/2025 IMPRESSION: Normal Remote: With Events * Normal Device Function * Events or Alerts: 2 VT longest 8 beats * Battery: OK, 14.67 yrs * Sensing, impedance and thresholds reviewed * Programmed parameters reviewed * Presenting rhythm reviewed * Heart Rate Histograms reviewed Musa Cheung MD CV IMPLANTABLE CARDIAC DEV ICE PROCEDURES Final Result * Injection tendon or ligament (01/01/2025 3:30 PM EDT) Cheng Akhtar DPM - 01/01/2025 3:30 PM EDT Cheng Rea DPM 01/01/2025 4:56 PM Injection tendon or ligament Indications: pain Details: 25 G needle Medications: 0.5 mL lidocaine (PF) 1 %; 20 mg triamcinolone acetonide 40 mg/mL Informed Consent: Site: Foot ligament tendon Cheng Rea DPM IN CLINIC/BEDSIDE ORDERAB LES Final Result * XR Cervical Spine 4-5 Views (01/01/2025 12:36 PM EDT) Anatomical Region Laterality Modality Spine, C-spine Radiographic Danelle ging 01/03/2025 5:41 PM EDT Impressions 01/03/2025 5:45 PM EDT Prior discectomy and interbody fusion with instrumentation. There is straightening of the expected lordosis. There is no pathologic change in alignment with flexion or extension, however there is limited range of motion Extensive facet disease on the right at C4/C5 -------- FINAL REPORT -------- Dictated By: Julian Woodall Dictated Date: 01/03/2025 17:41 ET Assigned Physician: Julian Woodall Reviewed and Electronically Signed By: Julian Woodall Signed Date: 01/03/2025 17:45 ET Workstation ID: [id number] Transcribed By: Self Edit Transcribed Date: 01/03/2025 17:41 ET Narrative 01/03/2025 5:45 PM EDT EXAMINATION: CERVICAL SPINE CLINICAL INFORMATION: Status post C5/C6 fusion. Right-sided pain. COMPARISON: None. TECHNIQUE: Frontal view of the cervical spine. Lateral views of the cervical spine in neutral, flexion and extension. FINDINGS: No definite prevertebral soft tissue swelling. There is straightening of the expected lordosis. There has been discectomy and interbody fusion with instrumentation at C5/C6. No definite evidence of hardware failure. There are osteophytes anteriorly at C4/C5 and at C6/C7. There is some facet disease. There is uncovertebral joint spurring greatest on the right at C4/C5. There is no pathologic change in alignment with flexion or extension. There is limited range of motion. Left carotid calcification. Cardiac leads partially included. Procedure Note Julian Woodall MD - 01/03/2025 EXAMINATION: CERVICAL SPINE CLINICAL INFORMATION: Status post C5/C6 fusion. Right-sided pain. COMPARISON: None. TECHNIQUE: Frontal view of the cervical spine. Lateral views of the cervical spine inneutral, flexion and extension. FINDINGS: No definite prevertebral soft tissue swelling. There is straightening of the expected lordosis. There has been discectomyand interbody fusion with instrumentation at C5/C6. No definite evidence of hardware failure. There are osteophytes anteriorlyat C4/C5 and at C6/C7. There is some facet disease. There is uncovertebraljoint spurring greatest on the right at C4/C5. There is no pathologic change in alignment with flexion or extension.There is limited range of motion. Left carotid calcification. Cardiac leads partially included. IMPRESSION: Prior discectomy and interbody fusion with instrumentation. There isstraightening of the expected lordosis. There is no pathologic change inalignment with flexion or extension, however there is limited range ofmotion Extensive facet disease on the right at C4/C5 -------- FINAL REPORT -------- Dictated By: Julian Woodall Dictated Date: 01/03/2025 17:41 ET Assigned Physician: Julian Woodall Reviewed and Electronically Signed By: Julian Woodall Signed Date: 01/03/2025 17:45 ET Workstation ID: [id number] Transcribed By: Self Edit Transcribed Date: 01/03/2025 17:41 ET us Cecy ESPANA IMG XR PROCEDURES Final Re sult * ECG-Annotated (11/26/2024) us Provider Onbase ECG ORDERABLES Final Result * ECG 12 lead (11/25/2024 11:12 AM EDT) Ventricular Rate ECG 71 BPM GEMUSE Atrial Rate 71 BPM GEMUSE P-R Interval 176 ms GEMUSE QRS Duration 106 ms GEMUSE Q-T Interval 402 ms GEMUSE QTc 436 ms GEMUSE P Wave [place] 24 degrees GEMUSE R [place] 0 degrees GEMUSE T [place] 58 degrees GEMUSE ECG Interpretation Normal sinus rhythm When compared with ECG of 04-SEP-2024 13:42, Premature atrial complexes are no longer Present Confirmed by MARTI CHEUNG ([id number]) on 11/25/2024 11:48:01 PM GEMUSE 11/25/2024 11:1 2 AM EDT 11/25/2024 11:48 PM EDT us Ayan Miranda MD ECG ORDERABLES Final Resul t GEMUSE * (ABNORMAL) CBC auto differential (11/25/2024 9:14 AM EDT) WBC 8.2 4.8 - 10.8 K/mcL LAB HEMETOLOGY METHOD 11/25/2024 9:28 AM [facility] RBC 4.80 4.50 - 5.50 M/mcL LAB HEMETOLOGY METHOD 11/25/2024 9:28 AM [facility] Hemoglobin 13.7 13.5 - 17.5 g/dL LAB HEMETOLOGY METHOD 11/25/2024 9:28 AM [facility] Hematocrit 40.3(L) 42.0 - 54.0 % LAB HEMETOLOGY METHOD 11/25/2024 9:28 AM [facility] MCV 84.7 79.0 - 98.0 FL LAB HEMETOLOGY METHOD 11/25/2024 9:28 AM [facility] MCH 28.8 27.0 - 32.0 pcg LAB HEMETOLOGY METHOD 11/25/2024 9:28 AM [facility] MCHC 34.0 32.0 - 37.0 g/dL LAB HEMETOLOGY METHOD 11/25/2024 9:28 AM [facility] RDW 13.8 11.0 - 15.0 % LAB HEMETOLOGY METHOD 11/25/2024 9:28 AM [facility] Platelets 192 130 - 400 K/mcL LAB HEMETOLOGY METHOD 11/25/2024 9:28 AM [facility] MPV 8.9 7.0 - 11.0 FL LAB HEMETOLOGY METHOD 11/25/2024 9:28 AM [facility] NRBC 0.0 <1.0 % LAB HEMETOLOGY METHOD 11/25/2024 9:28 AM [facility] NRBC Absolute 0.00 <0.10 K/mcL LAB HEMETOLOGY METHOD 11/25/2024 9:28 AM [facility] Neutrophils Relative 59.5 % LAB HEMETOLOGY METHOD 11/25/2024 9:28 AM [facility] Lymphocytes Relative 28.6 % LAB HEMETOLOGY METHOD 11/25/2024 9:28 AM [facility] Monocytes Relative 9.6 % LAB HEMETOLOGY METHOD 11/25/2024 9:28 AM [facility] Eosinophils Relative 1.5 % LAB HEMETOLOGY METHOD 11/25/2024 9:28 AM [facility] Basophils Relative 0.6 % LAB HEMETOLOGY METHOD 11/25/2024 9:28 AM [facility] Immature Granulocytes Relative 0.2 % LAB HEMETOLOGY METHOD 11/25/2024 9:28 AM [facility] Neutrophils Absolute 4.90 1.50 - 7.00 K/mcL LAB HEMETOLOGY METHOD 11/25/2024 9:28 AM [facility] Lymphocytes Absolute 2.35 1.00 - 5.00 K/mcL LAB HEMETOLOGY METHOD 11/25/2024 9:28 AM EDT [facility] Monocytes Absolute 0.79 0.20 - 1.00 K/mcL LAB HEMETOLOGY METHOD 11/25/2024 9:28 AM EDT [facility] Eosinophils Absolute 0.12 0.00 - 0.50 K/[facility] LAB HEMETOLOGY METHOD 11/25/2024 9:28 AM EDT [facility] Basophils Absolute 0.05 0.00 - 0.20 K/[facility] LAB HEMETOLOGY METHOD 11/25/2024 9:28 AM EDT [facility] Immature Granulocytes Absolute 0.02 0.00 - 0.03 K/[facility] LAB HEMETOLOGY METHOD 11/25/2024 9:28 AM EDT [facility] Blood Venous blood specimen / Unknown Venipuncture / Unknown 11/25/2024 9:14 AM EDT 11/25/2024 9:21 AM EDT Ayan Miranda MD LAB BLOOD ORDERABLES Final Result [facility] [address] [place] [address], * (ABNORMAL) Magnesium (11/25/2024 9:14 AM EDT) Magnesium 1.8(L) 1.9 - 2.6 mg/dL LAB CHEMISTRY METHOD 11/25/2024 9:49 AM EDT [facility] Blood Venous blood specimen / Unknown Venipuncture / Unknown 11/25/2024 9:14 AM EDT 11/25/2024 9:21 AM EDT Ayan Miranda MD LAB BLOOD ORDERABLES Final Result [facility] [address] [place] [address], [place] [phone] * (ABNORMAL) Basic metabolic panel (11/25/2024 9:14 AM EDT) Sodium 138 133 - 145 mmol/L LAB CHEMISTRY METHOD 11/25/2024 10:00 AM [facility] Potassium 3.5 3.5 - 5.5 mmol/L LAB CHEMISTRY METHOD 11/25/2024 10:00 AM [facility] Chloride 107 96 - 110 mmol/L LAB CHEMISTRY METHOD 11/25/2024 10:00 AM [facility] CO2 28 21 - 32 mmol/L LAB CHEMISTRY METHOD 11/25/2024 10:00 AM [facility] Anion Gap 3 3 - 11 LAB CHEMISTRY METHOD 11/25/2024 10:00 AM [facility] Glucose 127(H) 70 - 100 mg/dL LAB CHEMISTRY METHOD 11/25/2024 10:00 AM [facility] BUN 12 5 - 25 mg/dL LAB CHEMISTRY METHOD 11/25/2024 10:00 AM [facility] Creatinine 0.90 0.70 - 1.30 mg/dL LAB CHEMISTRY METHOD 11/25/2024 10:00 AM [facility] eGFR 98 >=60 mL/min/1. 73m2 LAB CHEMISTRY METHOD 11/25/2024 10:00 AM [facility] Comment:Calculation based on the Chronic Kidney Disease Epidemiology Collaboration (CKD-EPI) equation refit without adjustment for race. BUN/Creatinine Ratio 13.3 LAB CHEMISTRY METHOD 11/25/2024 10:00 AM [facility] Calcium 8.8 8.5 - 10.5 mg/dL LAB CHEMISTRY METHOD 11/25/2024 10:00 AM [facility] Blood Venous blood specimen / Unknown Venipuncture / Unknown 11/25/2024 9:14 AM EDT 11/25/2024 9:21 AM EDT Ayan Miranda MD LAB BLOOD ORDERABLES Final Result [facility] [address] [place] [address], * Injection tendon or ligament (11/19/2024 2:00 PM EDT) Narrative Cheng Rea DPM - 11/19/2024 2:00 PM EDT Cheng Rea DPM 11/19/2024 5:23 PM Injection tendon or ligament Indications: pain Details: 25 G needle Medications: 0.5 mL lidocaine (PF) 1 %; 20 mg triamcinolone acetonide 40 mg/mL Informed Consent: Site: Foot ligament tendon Cheng Rea DPM IN CLINIC/BEDSIDE ORDERAB LES Final Result * Colonoscopy (02/12/2020) Colonoscopy no interpretation , abstracted Anatomical Region Laterality Modality Other Historical Provider HEALTH MAINTENANCE Final Result from Last 3 Months or Most Recently Relevant to Health Maintenance Additional Health Concerns Active Problems Noted Date Diagnosed Date Autogenerated Problem 01/12/2025 Insurance MEDICARE [place] - [place] Advance Directives Documents on File Type Date 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
[2025-02-01 10:54] LABS: Troponin-I High Sensitivity < 2.7 ng/L (<3.5-35.0)
[2025-02-01 11:13] VITALS: BP 112/71; PULSE 100; RESP 18; TEMP 36.3; O2SAT 98
== END 2025-02-01 11:13 | disposition home or self-care (01) ==
PROVIDERS: Physician Assistant Medical; Emergency Provider Emergency Medicine; PCP Internal Medicine
DX: M54.6 Pain in thoracic spine (principal); M25.511 Pain in right shoulder; E11.9 Type 2 diabetes mellitus without complications; I10 Essential (primary) hypertension; K21.9 Gastro-esophageal reflux disease without esophagitis; N40.0 Benign prostatic hyperplasia without lower urinary tract symptoms; I25.10 Atherosclerotic heart disease of native coronary artery without angina pectoris; Z95.0 Presence of cardiac pacemaker; Z87.891 Personal history of nicotine dependence
CPT/HCPCS: 36415; 73030; 80053; 83735; 84484; 85025; 93005; 96372; 99283; 99284; J1885

== ENCOUNTER → 2025-02-01 08:30 | Outpatient (BNV) | payer MEDICARE, MEDICAID, SELFPAY | PROVIDERS: Emergency Provider Emergency Medicine; PCP Internal Medicine; Visit Provider Specialist | DX: M25.511 Pain in right shoulder (principal) | CPT/HCPCS: 73030 ==

== ENCOUNTER → 2025-02-01 09:58 | Outpatient (BNV) | payer MEDICARE, MEDICAID, SELFPAY | PROVIDERS: Emergency Provider Emergency Medicine; PCP Internal Medicine; Visit Provider Internal Medicine Cardiovascular Disease | DX: M25.511 Pain in right shoulder (principal) | CPT/HCPCS: 93010 ==

== ENCOUNTER 2025-02-03 08:13 | Outpatient (REF) | payer MEDICARE, MEDICAID, SELFPAY ==
[2025-02-03 10:59] LABS: Anion Gap 12 (12-20); Blood Urea Nitrogen 18 mg/dL (9-16); Carbon Dioxide 22 mmol/L (22-29); Chloride 109 mmol/L (96-108); Estimated Glomerular Filt Rate > 60; Potassium 3.9 mmol/L (3.3-5.1); Sodium 139 mmol/L (135-145)
== END 2025-02-03 08:14 | disposition home or self-care (01) ==
LOC: HO.LAB 08:13
PROVIDERS: Absent Provider Internal Medicine Nephrology; PCP Internal Medicine; Visit Provider Dietitian, Registered
DX: E11.9 Type 2 diabetes mellitus without complications (principal); I11.0 Hypertensive heart disease with heart failure; I50.9 Heart failure, unspecified; E66.9 Obesity, unspecified; N28.1 Cyst of kidney, acquired; R31.29 Other microscopic hematuria; R10.9 Unspecified abdominal pain; Z87.891 Personal history of nicotine dependence
CPT/HCPCS: 36415; 80051; 82565; 84520; 97803

== ENCOUNTER 2025-02-03 08:13 | Outpatient (AMB) | payer MEDICARE, MEDICAID, SELFPAY ==
--- OUTSIDE RECORDS SUMMARY | 2024-01-30 14:30 | XMS_ITS | Encounter Summary ---
Author Organization [facility] Address [address] [place] [address] Care Team Providers Care Medical I D Sales Name Role Phone Vamshi Man MD Primary Care Provider [phone] Encounter Details Date Type Department Care Team (Late st Contact Info) Description 01/30/2024 2:30 PM EDT Hospital Encounter TH HISTORIC ENCOUNTERS EASTERN CONVERSION ONLY Kash Hammonds MD 175 [facility] 200 [place] [address] Social History Tobacco Use Types Packs/Day Years [...] 7:54 AM EDT Lisandra Herrera RN * [place] Suicide Severity Rating Scale (Screener/Recent Self-Report) Question [...] Description 02/05/2025 7:30 AM EDT Hospital Encounter [facility] Endoscopy 271 [place] [phone] Kash Hammonds MD [address] [address] 02/16/2025 2:00 PM EST Office Visit Orthopedic Surgery - [place] [address] [phone] Cheng Rea DPM [address] [phone] 02/17/2025 11:20 AM EST Office Visit [facility] [address] [place] [address] [address] [place] [phone] Manuel Aldrich MD [address] [place] [address] Dr [facility] 410 [place] [phone] 03/30/2025 8:30 AM EST Office Visit Gastroenterology - [place] 175 [facility] 175 [facility] 200 [place] [phone] Idalia Sandoval PA 175 [facility] 200 [place] [address] documented as of this encounter Visit Diagnoses Not on filedocumented in this encounter Care Teams Medical I D Sales Relationship Specialty Start Date End Date Vamshi Man MD [address] [place] [address] PCP - General 10/06/10 documented as of this encounter
--- OUTSIDE RECORDS SUMMARY | 2025-02-03 08:20 | XMS_ITS | Clinical Summary ---
Author Organization [facility] Address [address] [place] [address] Care Team Providers Care Welding Equipment Repairer Name Role Phone Vamshi Man MD Primary Care Provider + [phone] Allergies Active Allergy Reactions Criticality Noted Date [...] age to complete this topic Care Teams Welding Equipment Repairer Relationship Specialty Start Date End Date Vamshi Man MD [address] [place] [id number] PCP - General Internal Medicine 05/02/23
--- OUTSIDE RECORDS SUMMARY | 2025-02-03 08:20 | XMS_ITS | Clinical Summary ---
Author Organization [facility] Address [address] [place] [address] Phone Care Team Providers Care Calibration Tester Name Role Phone Vamshi Man MD Primary Care Provider Allergies Active Allergy Reactions Criticality Noted Date Comments Latex Rash 02/17/2021 Yellow Medicine Itching 01/29/2025 Itchy mouth and swelling of [...] Date Diagnosed Date SSS (sick sinus syndrome) ([facility] V24, [facility] V28) 09/04/2024 Assessment & Plan (11/11/2024 3:35 [...] immunofixation study. The patient was evaluated by [facility] in May 2023 due to his elevated serum kappa lambda ratio and they determined that the patient did not have any plasma cell disorder. 4. 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 The patient was referred to the [facility] genetic medicine program. Last documented LVEF: 45 to 50% on echocardiogram done in November 2022; 47% by cardiac MRI done in February 2023 Current symptom classification: NYHA class 2 Guideline directed medical therapy: 1. Beta-blockers: NONE 2. ARNI / GLORIA inhibitor / ARB: Entresto 49/51 mg orally daily 3. MRA: Spironolactone 25 mg orally daily Candidate for ICD or QUALITY ENGINEERING MANAGER: Not a candidate due to the [...] immunofixation study. The patient was evaluated by [id number] in May 2023 due to his [...] mg orally daily Candidate for ICD or QUALITY ENGINEERING MANAGER: Not a candidate due to the [...] immunofixation study. The patient was evaluated by [facility] in May 2023 due to his elevated serum kappa lambda ratio and they determined that the patient did not have any plasma cell disorder. 4. 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 The patient was referred to the [facility] genetic medicine program. Last documented [...] SGLT2 inhibitor: None Candidate for ICD or QUALITY ENGINEERING MANAGER: Not a candidate due to the [...] immunofixation study. The patient was evaluated by [facility] in May 2023 due to his elevated serum kappa lambda ratio and they determined that the patient did not have any plasma cell disorder. 4. 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 The patient was referred to the [facility] genetic medicine program. Last documented [...] SGLT2 inhibitor: None Candidate for ICD or QUALITY ENGINEERING MANAGER: Not a candidate due to the [...] was referred for an evaluation with the [facility] service who determined that the patient did not have a plasma cell disorder and therefore does not have AL amyloidosis. The patient's brother has a history of a cardiomyopathy and cardiac arrhythmias and is currently hospitalized in [place] awaiting a cardiac transplant. The patient underwent genetic testing ([facility] [employer] comprehensive cardiomyopathy panel) and the test showed that he is a carrier of 1 pathogenic variant in the gene [id number] which is associated with an autosomal recessive primary carnitine deficiency. We refer the patient for an evaluation with the [facility] genetics program but the patient [...] immunofixation study. The patient was evaluated by [facility] in May 2023 due to his elevated serum kappa lambda ratio and they determined that the patient did not have any plasma cell disorder. 4. 8. 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 The patient was referred to the [facility] genetic medicine program. Last documented [...] mg orally daily Candidate for ICD or QUALITY ENGINEERING MANAGER: Not a candidate due to the [...] anterior fusion by Dr. Mukherjee 2019 at [facility], states at the time he had neck [...] we will start with C-spine x-rays at [facility]. We talked about conservative treatment options [...] his dysphagia. All questions answered. We used back hand Joellen #[id number]. Renal osteodystrophy 11/23/2021 Plantar fasciitis 11/23/2021 Low [...] 10/31/2017 Diabetes mellitus type 2, un complicated (CMS/[facility] V24, CMS/[facility] V28) 04/05/2017 Chronic constipation 02/02/2017 Renal lesion [...] palpitations. He recently completed a 30-day ambulatory monitor and storage bin tender. He had 38 symptomatic events during the [...] actual syncope. During a recent 30-day ambulatory monitor and storage bin tender, the patient was found to have a [...] near syncope in the past. 30-day ambulatory monitor and storage bin tender showed instances of high-grade AV block with a pause of up to 3 seconds. As a result of this, his carvedilol was decreased from 6.25 mg orally twice a day down to 3.5 mg orally twice a day. After the changing the dose of the beta-sabiha, no further episodes of high-grade AV block or sinus pauses were noted on the ambulatory monitor and storage bin tender. Of note, there was no evidence of [...] CT scan is scheduled for 06/20/2023 at [facility]. In the meantime, the patient [...] Type Department Care Team Description 01/13/[address] [facility] Cardiology [address] [place] [address] Melly Kern NP 01/12/2025 7:25 PM EDT Ancillary Procedure [facility] [address] [facility] [address] [place] [address] 01/09/2025 Telephone [facility] [address] [place] [phone] Cecy Fisher PA 01/01/2025 3:30 PM EDT Office Visit Orthopedic Surgery [facility] [address] [facility] [address] [place] [address] Cheng Rea, DPM Tendinitis of right ankle (Primary Dx); Plantar fascial fibromatosis 01/01/2025 12:26 PM EDT - 01/01/2025 11:59 PM EDT Hospital Encounter [facility] Xray [address] [place] [phone] Cervical spondylosis Discharge Disposition: Home or Self Care 01/01/2025 9:30 AM EDT Consult Neurosurgery [facility] [address] [place] [phone] Cecy Fisher PA Cervical spondylosis (Primary Dx); Gastroesophageal reflux disease, unspecified whether esophagitis present; Gastroparesis; Oral phase dysphagia; Diverticulosis; Family history of colon cancer 12/08/2024 9:10 AM EDT Office Visit G[facility]ology - [place] [address] [place] [address] Idalia Sandoval PA Gastroesophageal reflux disease, unspecified whether esophagitis present (Primary Dx); Gastroparesis; Oral phase dysphagia; Diverticulosis; Family history of colon cancer 11/25/2024 10:46 AM EDT - 11/25/2024 2:16 PM EDT Emergency [facility] Emergency [address] [place] [phone] Peyman Lake MD Lightheadedness (Primary Dx); Chronic HFrEF (heart failure with reduced ejection fraction) (CMS/HCC V24, CMS/HCC V28) Discharge Disposition: Home or Self Care 11/19/2024 2:00 PM EDT Office Visit Orthopedic Surgery - [place] [address] [place] [address] Cheng Rea DPM Tendinitis of left ankle (Primary Dx); Tendinitis of right ankle; Plantar fascial fibromatosis 11/12/[address] [facility] Cardiology [facility] [address] [place] [address] Manuel Aldrich MD 11/11/2024 10:10 AM EDT Office Visit [facility] Cardiology [facility] [address] [place] [address] Melly Kern NP Primary hypertension (Primary Dx); Chronic HFrEF (heart failure with reduced ejection fraction) (CMS/HCC V24, CMS/HCC V28); SSS (sick sinus syndrome) (CMS/HCC V24, CMS/HCC V28); Mixed hyperlipidemia; Cardiomyopathy, unspecified type (CMS/HCC V24, CMS/HCC V28); Coronary artery disease involving [place] coronary artery of [place] heart without angina pectoris 11/06/[address] [facility] Cardiology [facility] [address] [facility] [address] [place] [phone] Cecy De Luna MA 11/05/2024 2:00 PM EDT Ancillary Procedure [facility] [address] [facility] [address] [place] [address] from Last 3 Months Immunizations Immunization Administration Dates Next Due H1N1 Inj 02/16/2009 Hepatitis A Adult (Havrix; V aqta) 19yo and older 06/02/2004,02/21/2003 Hepatitis B (Ycqqjbx-S-Omuwy , Recombivax HB-Adult) 19yo and older 06/04/2003,12/19/2002,11/18/2002 [...] Encounter [facility] Endoscopy [address] [place] [address] Kash Hammonds MD [address] [place] [address] 02/16/2025 2:00 PM EST Office Visit Orthopedic Surgery - [place] [address] [facility] [address] [place] [phone] Cheng Rea DPM 175 [facility] 250 [place] [phone] 02/17/2025 11:20 AM EST Office Visit [facility] [address] [place] [address] Dr [address] [place] [phone] Manuel Aldrich MD [address] [place] [address] [address] [place] [phone] 03/30/2025 8:30 AM EST Office Visit Gastroenterology [facility] 175 [facility] 175 [facility] 200 [place] [address] Idalia Sandoval PA [address] [facility] 200 [place] [address] Health Maintenance Due Date Last Done Comments [...] [employer] Implanted Type Area Meat Stock Clerk Device Identifier Shelf Expiration Date Model / Serial / Lot Lead Ipg Select Secure 69cm Catheter Delivered Lead - [id number] - [id number] Implanted:Qty: 1 on 10/13/2024 by Musa Cheung MD at [facility] Cardiac Lead N/A: Heart [employer] - CARDIAC RHYTH-[facility] [id number] 07/10/2026 [id number] / [id number] / Lead Pcmkr Ame Hooper 52cm - [id number] - [id number] Implanted:Qty: 1 on 10/13/2024 by Musa Cheung MD at [facility] Cardiac Lead N/A: Heart [employer] - CARDIAC RHYTH-[facility] [id number] 12/19/2025 [id number] / [id number] / Monitor Cardiac Insert Lux Dx Ii+ - [id number] - [id number] Implanted:Qty: 1 on 05/16/2024 by Musa Cheung MD at [facility] Cardiac Loop Recorder Left: Chest [employer] A/S CARD RHYTHM MGMT [id number] 09/12/2025 [id number] / [id number] / Pacemaker Cardiac K[place]on Xt Dr Arriola - [id number] - [id number] Implanted:Qty: 1 on 10/13/2024 by Musa Cheung MD at [facility] Cardiac Pacemaker Chest Wall [employer] - CARDIAC RHYTH-CRD [id number] 10/11/2025 [id number] / [id number] / Medt-Card Milagros Xt Dr Arriola [id number] Implanted:09/16 (Quantity not on file) Cardiac Pacemaker [employer] - CARDIAC RHYTH-CRDM MILAGROS XT DR ARROILA [id number] / [id number] / Medt-Card Kasson Xt Dr Arriola [id number] Implanted:09/16 (Quantity not on file) Cardiac Pacemaker [employer] - CARDIAC RHYTH-CRDM MILAGROS XT DR ARRIOLA / [id number] / Hemostat Absorb 1x2 Surgicel Fibrillar - [id number] - [id number] Implanted:Qty: 1 on 10/13/2024 by Musa Cheung MD at [facility] Hemostasis Chest Wall [employer] [id number] 09/13/2026 1961 / [id number] / Procedures Procedure [...] 7:22 PM EDT) Date Time Interrogation Session [id number] CV DEVICE CHECK Type Interrogation Session Remote CV DEVICE CHECK Implantable Pulse Generator Meat Stock Clerk MDT CV DEVICE CHECK Implantable Pulse Generator Type IPG CV DEVICE CHECK Implantable Pulse Generator Model Milagros XT MRI [id number] CV DEVICE CHECK Implantable Pulse Generator Serial Number [id number] CV DEVICE CHECK Implantable Pulse Generator Implant Date 20241013 CV DEVICE CHECK Battery Remaining Longevity 176.0 CV DEVICE CHECK Battery Voltage 3.180 CV D EVICE CHECK Battery SEAMING INSPECTOR Trigger 2.625 CV DEVICE CHECK Battery Status Middle of Service CV DEVICE CHECK Anthony Statistic RA Percent Paced 1.99 CV DEVICE CHECK Anthony Statistic RV Percent Paced 0.04 CV DEVICE CHECK Atrial Tachy Statistic AT/AF [place] Percent 0.00 CV DEVICE CHECK Lead Channel [...] Signed Date: 01/03/2025 17:45 ET Workstation ID: [id number] Transcribed By: Self Edit Transcribed Date: 01/03/2025 [...] Signed Date: 01/03/2025 17:45 ET Workstation ID: [id number] Transcribed By: Self Edit Transcribed Date: 01/03/2025 [...] GEMUSE QTc 436 ms GEMUSE P Wave Stowell 24 degrees GEMUSE R Stowell 0 degrees GEMUSE T Stowell 58 degrees GEMUSE ECG Interpretation Normal sinus [...] K/mcL LAB HEMETOLOGY METHOD 11/25/2024 9:28 AM [facility] RBC 4.80 4.50 - 5.50 M/mcL LAB HEMETOLOGY METHOD 11/25/2024 9:28 AM [facility] Hemoglobin 13.7 13.5 - 17.5 g/dL LAB HEMETOLOGY METHOD 11/25/2024 9:28 AM [facility] Hematocrit 40.3(L) 42.0 - 54.0 % LAB HEMETOLOGY METHOD 11/25/2024 9:28 AM [facility] MCV 84.7 79.0 - 98.0 FL LAB HEMETOLOGY METHOD 11/25/2024 9:28 AM [facility] MCH 28.8 27.0 - 32.0 pcg LAB HEMETOLOGY METHOD 11/25/2024 9:28 AM [facility] MCHC 34.0 32.0 - 37.0 g/dL LAB HEMETOLOGY METHOD 11/25/2024 9:28 AM [facility] RDW 13.8 11.0 - 15.0 % LAB HEMETOLOGY METHOD 11/25/2024 9:28 AM [facility] Platelets 192 130 - 400 K/mcL LAB HEMETOLOGY METHOD 11/25/2024 9:28 AM [facility] MPV 8.9 7.0 - 11.0 FL LAB HEMETOLOGY METHOD 11/25/2024 9:28 AM [facility] NRBC 0.0 <1.0 % LAB HEMETOLOGY METHOD 11/25/2024 9:28 AM [facility] NRBC Absolute 0.00 <0.10 K/mcL LAB HEMETOLOGY METHOD 11/25/2024 9:28 AM [facility] Neutrophils Relative 59.5 % LAB HEMETOLOGY METHOD 11/25/2024 9:28 AM [facility] Lymphocytes Relative 28.6 % LAB HEMETOLOGY METHOD 11/25/2024 9:28 AM [facility] Monocytes Relative 9.6 % LAB HEMETOLOGY METHOD 11/25/2024 9:28 AM [facility] Eosinophils Relative 1.5 % LAB HEMETOLOGY METHOD 11/25/2024 9:28 AM [facility] Basophils Relative 0.6 % LAB HEMETOLOGY METHOD 11/25/2024 9:28 AM [facility] Immature Granulocytes Relative 0.2 % LAB HEMETOLOGY METHOD 11/25/2024 9:28 AM [facility] Neutrophils Absolute 4.90 1.50 - 7.00 K/mcL LAB HEMETOLOGY METHOD 11/25/2024 9:28 AM [facility] Lymphocytes Absolute 2.35 1.00 - 5.00 K/mcL LAB HEMETOLOGY METHOD 11/25/2024 9:28 AM EDT [facility] Monocytes Absolute 0.79 0.20 - 1.00 K/mcL LAB HEMETOLOGY METHOD 11/25/2024 9:28 AM EDT [facility] Eosinophils Absolute 0.12 0.00 - 0.50 K/[facility] LAB HEMETOLOGY METHOD 11/25/2024 9:28 AM EDT [facility] Basophils Absolute 0.05 0.00 - 0.20 K/[facility] LAB HEMETOLOGY METHOD 11/25/2024 9:28 AM EDT [facility] Immature Granulocytes Absolute 0.02 0.00 - 0.03 K/[facility] LAB HEMETOLOGY METHOD 11/25/2024 9:28 AM EDT [facility] Blood Venous blood specimen / Unknown Venipuncture / Unknown 11/25/2024 9:14 AM EDT 11/25/2024 9:21 AM EDT Ayan Miranda MD LAB BLOOD ORDERABLES Final Result [facility] [address] [place] [address], * (ABNORMAL) Magnesium (11/25/2024 9:14 AM EDT) Magnesium 1.8(L) 1.9 - 2.6 mg/dL LAB CHEMISTRY METHOD 11/25/2024 9:49 AM EDT [facility] Blood Venous blood specimen / Unknown Venipuncture / Unknown 11/25/2024 9:14 AM EDT 11/25/2024 9:21 AM EDT Ayan Miranda MD LAB BLOOD ORDERABLES Final Result [facility] [address] [place] [address], [place] [phone] * (ABNORMAL) Basic metabolic panel (11/25/2024 9:14 AM EDT) Sodium 138 133 - 145 mmol/L LAB CHEMISTRY METHOD 11/25/2024 10:00 AM [facility] Potassium 3.5 3.5 - 5.5 mmol/L LAB CHEMISTRY METHOD 11/25/2024 10:00 AM [facility] Chloride 107 96 - 110 mmol/L LAB CHEMISTRY METHOD 11/25/2024 10:00 AM [facility] CO2 28 21 - 32 mmol/L LAB CHEMISTRY METHOD 11/25/2024 10:00 AM [facility] Anion Gap 3 3 - 11 LAB CHEMISTRY METHOD 11/25/2024 10:00 AM [facility] Glucose 127(H) 70 - 100 mg/dL LAB CHEMISTRY METHOD 11/25/2024 10:00 AM [facility] BUN 12 5 - 25 mg/dL LAB CHEMISTRY METHOD 11/25/2024 10:00 AM [facility] Creatinine 0.90 0.70 - 1.30 mg/dL LAB CHEMISTRY METHOD 11/25/2024 10:00 AM [facility] eGFR 98 >=60 mL/min/1. 73m2 LAB CHEMISTRY METHOD 11/25/2024 10:00 AM [facility] Comment:Calculation based on the Chronic Kidney Disease Epidemiology Collaboration (CKD-EPI) equation refit without adjustment for race. BUN/Creatinine Ratio 13.3 LAB CHEMISTRY METHOD 11/25/2024 10:00 AM [facility] Calcium 8.8 8.5 - 10.5 mg/dL LAB CHEMISTRY METHOD 11/25/2024 10:00 AM [facility] Blood Venous blood specimen / Unknown Venipuncture / Unknown 11/25/2024 9:14 AM EDT 11/25/2024 9:21 AM EDT Ayan Miranda MD LAB BLOOD ORDERABLES Final Result [facility] [address] [place] [address], * Injection tendon or ligament (11/19/2024 2:00 [...] Documents on File Type Date Recorded Patient Supervisor Loading Expl anation Health Care Decision (hx) 07/31/2013 [...] DIRECTIVE Health Care Decision (hx) 07/14/2013 AD DURIBN DIRECTIVE Health Care Decision (hx) 07/14/2013 AD [...] (hx) 07/14/2013 AD DURBIN DIRECTIVE Care Teams Calibration Tester Relationship Specialty Start Date End Date Vamshi Man MD [address] [place] [id number] PCP - General 10/06/10
--- OUTSIDE RECORDS SUMMARY | 2025-02-03 08:20 | XMS_ITS | Encounter Summary ---
Author Organization [facility] Address [address] [address] Phone Care Team Providers Care Geological Technician Name Role Phone Vamshi Man MD Primary Care Provider [phone] Reason for Visit * Reason Comments Med Refill Encounter Details Date Type Department Care Team (Late Contact Info) Description 01/08/2025 Refill [facility] [address] [address] Caprice Mary ARNP [address] [address] Type 2 diabetes mellitus with [...] Office Visit [facility] [address] [address] Caprice Mary ARNP [address] [address] documented as of this encounter Visit Diagnoses Diagnosis Type 2 diabetes mellitus with diabetic chronic kidney disease (HCC) documented in this encounter Care Teams Geological Technician Relationship Specialty Start Date End Date Vamshi Man MD [facility] [address] [facility] [address] [place], [place] PCP - General 04/26/20 documented as of this encounter
--- OUTSIDE RECORDS SUMMARY | 2025-02-03 08:20 | XMS_ITS | Clinical Summary ---
Author Organization [facility] Address [address] [facility] [address] [place] [address] Phone Care Team Providers Care Horseradish Maker Name Role Phone Vamshi Man MD Primary Care Provider [phone] Allergies Active Allergy Reactions Criticality Noted Date [...] Lateral epicondylitis 11/23/2021 Overview (11/23/2021): s/p Modified [place] procedure, repair of conjoined tendon of [...] today Switched from Losartan to Entresto by Convex Grinder Operator recently Renal osteodystrophy 11/23/2021 Diabetes mellitus 01/06/2021 [...] 01/08/2025 Refill [facility] [address] [address] Caprice Mary RADIATION PROTECTION ENGINEER Type 2 diabetes mellitus with diabetic chronic kidney disease (HCC) 12/09/2024 Refill [facility] [address] [address] Caprice MaryJAMISONP Type 2 diabetes mellitus with [...] Office Visit [facility] [address] [address] Caprice Mary ARNP [address] [address] Health Maintenance Due Date Last [...] %Hb [employer] Comment: Reference Range: [place] Diabetes Association (ADA) Guidelines: <5.7: Decreased risk for diabetes 5.7 - 6.4: Increased risk for diabetes >6.4: Ongoing Hyperglycemia of any cause <7.0: Glycemic control for adults with diabetes Estimated Average Glucose 126 mg/dL [employer] 07/16/2024 9:59 AM EDT 07/16/2024 Caprice SMITH LAB BLOOD ORDERABLES Final Result [facility] [employer] [address] [place] [phone] from Last 3 Months or Most Recently Relevant to Health Maintenance Insurance Medicare Medicaid [place] Medicare Medicaid [place] Care Teams Horseradish Maker Relationship Specialty Start Date End Date Vamshi Man MD [facility] [address] [facility] [address] [place], [place] PCP - General 04/26/20
--- OUTSIDE RECORDS SUMMARY | 2025-02-03 08:20 | XMS_ITS | Clinical Summary ---
Author Organization [facility] Address [address] [place] [address] Care Team Providers Care Door Puller Name Role Phone Vamshi Man MD Primary Care Provider [phone] Encounters Date Type Department Care Team Description 01/06/2025 10:00 AM EDT Telehealth [facility] [address] [place] [address] [phone] Specialty Trimmer: Iliana Jaramillo CGC Cardiomyopathy, unspecified type (HCC) (Primary Dx) 01/06/2025 myChart Message [facility] [address] [place] [address] [phone] Specialty Trimmer: Iliana Jaramillo [facility] Genetics Follow Up from [...] , 01/05/2023, Additional history exists Insurance MEDICARE [facility] Care Teams Door Puller Relationship Specialty Start Date End Date Vamshi Man MD [address] [place] [id number] PCP - General Internal Medicine 07/22/24
--- OUTSIDE RECORDS SUMMARY | 2025-02-03 08:20 | XMS_ITS | Patient Health Record ---
Author Organization [facility] Address [address] [place] [address] Care Team Providers Care Flight Steward Name Role Phone Arana Clarence Unavailable [phone] Reason For Referral No Information Plan Of Treatment No Information
--- OUTSIDE RECORDS SUMMARY | 2025-02-03 08:20 | XMS_ITS | Encounter Summary ---
Author Organization [facility] Address [address] [place] [address] Care Team Providers Care State Wildlife Officer Name Role Phone Vamshi Man MD Primary Care Provider [phone] Encounter Details Date Type Department Care Team (Late st Contact Info) Description 01/06/2025 myChart Message [facility] [address] [place] [address] Oil Furnace Installer: Iliana Jaramillo, [facility] [address] [place], [place] [phone] Genetics Follow Up Social History Tobacco Use [...] on filedocumented in this encounter Care Teams State Wildlife Officer Relationship Specialty Start Date End Date Vamshi Man MD [address] [place] [phone] PCP - General Internal Medicine 07/22/24 documented as of this encounter
[2025-02-03 08:32] VITALS: BMI 29.0
--- NOTE | 2025-02-03 08:32 | A.OFFVIS_ITS ---
VS Expanded 02/03/25 08:32 Height 6 ft 2 in Weight 225 lb 12.054 oz BMI 29.0 Intake Visit Reasons: T2DM Allergies Penicillins (PENICILLINS) Allergy (Intermediate, Verified 02/01/25 08:02) RASH lactose Adverse Reaction (Intermediate, Uncoded 01/14/25 07:54) Abdominal Pain Medication List - Last Reconciled 02/03/[address], LDN albuterol sulfate 90 mcg/actuation 2 puffs inhalation Q4H PRN alprazolam 1 tab PO BID PRN aspirin 81 mg PO DAILY atorvastatin 80 mg PO DAILY blood sugar diagnostic (FreeStyle Lite Strips) As directed bupropion HCl XL 150 mg PO QAM bupropion HCl XL 300 mg PO DAILY carvedilol 3.125 mg PO BID cholecalciferol (vitamin D3) 25 mcg PO DAILY duloxetine 60 mg PO DAILY finasteride (Proscar) 5 mg PO DAILY 90 days fluticasone furoate 100 mcg/actuation (Arnuity Ellipta) 1 inh inhalation DAILY fluticasone propionate 50 mcg/actuation 1 spray intranasal BID hydrocortisone 2.5% (Procto-Med HC) 1 appl NE BID-QID PRN ibuprofen 800 mg PO Q8H PRN 30 days insulin glargine U-300 conc (Toujeo Max U-300 SoloStar) 8 units subcut DAILY levocetirizine 5 mg PO DAILY lidocaine 5% leave on most painful area for up to 12 hrs lidocaine 4% 1 appl topical BID PRN linaclotide (Linzess) 290 mcg PO DAILY PRN magnesium oxide 400 mg PO DAILY metformin ER 750 mg PO DAILY methadone 10 mg PO TID PRN methocarbamol 1,000 mg PO TID PRN 3 days montelukast (Singulair) 10 mg PO DAILY multivitamin with folic acid 400 mcg (Tab-A-Kelsie) 1 tab PO DAILY naloxone 4 mg/actuation (Narcan) 1 spray intranasal DAILY naproxen 500 mg PO BID PRN ondansetron HCl 4 mg PO Q8H PRN pen needle, diabetic (UltiCare Pen Needle) As directed pen needle, diabetic (Comfort EZ Pen [place]) As directed pen needle, diabetic, safety (True Comfort Safety Pen Needle) As directed sacubitril-valsartan 49-51 mg (Entresto) 1 tab PO BID spironolactone 25 mg PO DAILY tamsulosin 0.4 mg PO DAILY testosterone enanthate 150 mg IM Q2W tirzepatide (Mounjaro) 15 mg subcut QWEEK tizanidine 4 mg PO TID PRN zolpidem 10 mg PO BEDTIME PRN 3 months MDD 10mg Nutrition Presentation Details: Pt presents for MNT 6 month f/u for T2DM Food frequency vegetables: daily 1-2 cup dairy: 2/day (yogurt ) fish: 2/wk (salmon/tuna) beverages: water, juices , no soda starches: choosing whole grain and starchy vegetables for fiber fruits: 2/d Pt reports trying to keep physically active: walking as able , 3-5 times/wk Takes a mVI daily Pt reports he is on Mounjaro 15 mg/wk , working on choosing low fat foods reports doing well Reports no hypoglycemia since glipizide was stopped Pt reports FBG ranging 80-130s , occ [address] since september 2024 BS Monitoring Most Recent Diabetes Results: Creatinine, (0.5-1.4) 0.76 mg/dL 02/01/25 BUN, (9-16) 16 mg/dL 02/01/25 Sodium, (135-145) 137 mmol/L 02/01/25 Potassium, (3.3-5.1) 4.1 mmol/L 02/01/25 Chloride, (96-108) 111 mmol/L H 02/01/25 Carbon Dioxide, (22-29) 20 mmol/L L 02/01/25 Calcium, (8.4-10.2) 8.6 mg/dL Δ 02/01/25 AST, (5-37) 24 U/L 02/01/25 ALT, (0-40) 26 U/L 02/01/25 Total Protein, (6.5-8.0) 6.4 g/dL L 02/01/25 Albumin, (3.5-5.0) 4.3 g/dL 02/01/25 MYA-Aizdomo-Ms.Jeor Equation Height: 6 ft 2 in Weight: 226 lb Resting Metabolic Rate: 1913.56 Calculated Activity Level: Mild Activity Calories Needed to Maintain Weight: 2631.15 PFSH Medical History Pacemaker (09/2024) Diverticulosis Osteoarthritis IBS (irritable bowel syndrome) Hyperlipidemia CAD (coronary artery disease) Nonischemic cardiomyopathy CHF (congestive heart failure) Sleep apnea Obesity (BMI 30.0-34.9) Left flank discomfort Upper abdominal pain GERD (gastroesophageal reflux disease) Elevated cholesterol HTN (hypertension) Constipation by delayed colonic transit Bleeding hemorrhoids Diabetes mellitus Asthma Surgical History History of dacryocystorhinostomy H/O foot surgery History of esophagogastroduodenoscopy (EGD) (08/13/24) History of tonsillectomy History of sinus surgery History of neck surgery History of carpal tunnel release History of release of tendon History of umbilical hernia repair History of colonoscopy Family History Mother History of colon cancer Brother History of liver cancer Maternal Aunt History of colon cancer Father No problems noted. 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 Assessment & Plan Assessment & Plan (1) Diabetes mellitus: Code(s): E11.9 - Type 2 diabetes mellitus without complications Category: Medical Plan: wt: 123 kg, 118kg (06/2023), 119kg (09/2023), 119 kg (01/07), 111 kg (05/10), 102 kg(02/07) Est kcal needs as per MSJ: 2500 (40% carb, 30% protein/fat) Est fluid needs as per 30 ml/d: 3100 Est prot per day as per 1-1.2 g/kg bw: 100 -120 Recommend fiber intake : 8-10 g per day and gradually increase to 25-28 g per day for women and 35-38 g for men or as tolerated Recommend sodium intake per day : less than 2300 mg unless otherwise specified by your doctor Educated patient on: ( R = reviewed V = verbalizes understanding N/R = needs review N/A = not applicable * Food sources of carbohydrate, adequate serving sizes and its role in various health conditions: R ,v * Differences between complex carbohydrates a simple carbohydrates, role of fiber in diet: R ,v * Differences between types of fats and role in diet (mono on saturated fat fatty acids, saturated fatty acids, trans fats): R , V * Food sources of sodium in salt and healthy modifications for heart health in kidney health: R ,v * Vitamins and minerals: R * Healthy plate method concept: R , V * Physical activity: Benefits a precaution: R ,v * Hypoglycemia protocol (rule of 15): R V - rule of 15 * Dietary prevention of Hyperglycemia: R V (2) Obesity (BMI 30.0-34.9): Code(s): E66.9 - Obesity, unspecified Category: Medical Plan: Continue following healthy plale method, choosing foods with omega 3 fatty acids (fish twice/wk, nuts and seeds 2-3 times/wk ) Caution with sodium intake, read food labels and aim at less than 2300 mg per day unless otherwise specified by your doctor Patient Instructions: Choose low sodium food options, read food labels, aim at less than 2300 mg per day unless otherwise specified by your doctor see list of lower sodium seasonings, food options Coding Level of Care Code Nutr Indiv Subseq (62523) Diagnoses Diabetes mellitus E11.9 Obesity (BMI 30.0-34.9) E66.9 Time Spent (min) 30
[2025-02-03 10:26] VITALS: BMI 29.0
== END 2025-02-03 09:07 | disposition home or self-care (01) ==
LOC: HO.ENCR 08:14
PROVIDERS: PCP Internal Medicine; Visit Provider Dietitian, Registered
DX: E11.9 Type 2 diabetes mellitus without complications (principal); E66.9 Obesity, unspecified

== ENCOUNTER 2025-02-10 10:05 | Outpatient (AMB) | payer MEDICARE, MEDICAID, SELFPAY ==
--- NOTE | 2025-02-10 10:11 | HO.NEPHOV ---
Vital Signs 02/10/25 10:12 Height 6 ft 2 in Weight 228 lb 2 oz BMI 29.3 BP 100/60 Blood Pressure Location Lt brachial Position Sitting Pulse 94 Pulse Source Pulse Oximeter Pulse Oximetry (%) 99 Oxygen Delivery Method Room Air Intake Visit Reasons: 6mon follow-up w/labs-LVM [employer] English Teacher Required: Yes [employer] English Teacher Language: Dermatology Physician Services: Middle [employer] English Teacher Present [employer] English Teacher Name: Martha [id number] Information Interpreted: clinical only Accompanied by: Self / Same As Patient Allergies Penicillins (PENICILLINS) Allergy (Intermediate, Verified 02/10/25 10:12) RASH lactose Adverse Reaction (Intermediate, Uncoded 01/14/25 07:54) Abdominal Pain HPI Comments Details: Elissa was seen in follow up for his hypertension and renal cysts. He had pancreatic cyst as well and had been having yearly MRI. He had seen Dr. Brooks before and is here for me to continue his renal care. He does not have any flank pain, nephrolithiasis, hematuria. He has taken Jardiance before and had urinary symptoms from it and was discontinued. It was replaced by glipizide, the dose of which he has adjusted as he thought he had similar symptoms from it like Jardiance. He is on insulin and his blood sugar is fair. He is also on a Entresto and spironolactone. He denies any chest pain, shortness of breath, proximal nocturnal dyspnea, orthopnea, pedal edema or orthostatic symptoms. He claims to be compliant with medications. He denies taking any nonsteroidal anti-inflammatories. He has no family history of any ESRD or renal transplantation. He denies any significant proteinuria or retinopathy. His last serum creatinine had been stable. [facility] Medical History Pacemaker (09/2024) Diverticulosis Osteoarthritis IBS (irritable bowel syndrome) Hyperlipidemia CAD (coronary artery disease) Nonischemic cardiomyopathy CHF (congestive heart failure) Sleep apnea Obesity (BMI 30.0-34.9) Left flank discomfort Upper abdominal pain GERD (gastroesophageal reflux disease) Elevated cholesterol HTN (hypertension) Constipation by delayed colonic transit Bleeding hemorrhoids Diabetes mellitus Asthma Surgical History History of dacryocystorhinostomy H/O foot surgery History of esophagogastroduodenoscopy (EGD) (08/13/24) History of tonsillectomy History of sinus surgery History of neck surgery History of carpal tunnel release History of release of tendon History of umbilical hernia repair History of colonoscopy Family History Mother History of colon cancer Brother History of liver cancer Maternal Aunt History of colon cancer Father No problems noted. 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 Review of Systems Const All systems reviewed & are unremarkable except as noted in HPI and below Physical Exam Vital Signs: Last Vital Signs Pulse 94 02/10/25 10:12 BP 100/60 02/10/25 10:12 Pulse Ox 99 02/10/25 10:12 Oxygen Delivery Method Room Air 02/10/25 10:12 BMI result Body Mass Index 29.3 Const General: comfortable and no acute distress Orientation/consciousness: patient oriented x3 HEENT Head: Yes normocephalic Mouth: Normal oral and palatal mucosa present Eyes EOM: EOMs intact bilaterally Neck Neck: Yes supple Resp Auscultation: clear to auscultation bilaterally Cardio Jugular venous distension: no JVD Rate: regular rate GI Palpation (GI): Soft to palpation Auscultation: normal bowel sounds General: Yes no CVA tenderness Back/Spine/Pelvis Back: no CVA tenderness Skin General skin exam: no rashes or lesions noted Neuro General: patient oriented x3 and moves all extremities Extrem General: Yes no pedal edema Results Reviewed Nephrology Results: Hgb, (14.0-18.0) 13.9 g/dl L 02/01/25 WBC, (4.8-10.8) 7.0 X10*3/uL 02/01/25 Plt Count, (160-400) 196 X10*3/uL 02/01/25 Sodium, (135-145) 139 mmol/L 02/03/25 Potassium, (3.3-5.1) 3.9 mmol/L 02/03/25 Chloride, (96-108) 109 mmol/L H 02/03/25 Carbon Dioxide, (22-29) 22 mmol/L 02/03/25 BUN, (9-16) 18 mg/dL H 02/03/25 Creatinine, (0.5-1.4) 0.95 mg/dL 02/03/25 Calcium, (8.4-10.2) 8.6 mg/dL Δ 02/01/25 Assessment & Plan Assessment & Plan (1) HTN (hypertension): Code(s): I10 - Essential (primary) hypertension Category: Medical Qualifiers: Hypertension type: primary hypertension Qualified Code(s): I10 - Essential (primary) hypertension (2) Renal cyst: Code(s): N28.1 - Cyst of kidney, acquired Category: Medical Plan Elissa has longstanding hypertension and is on multiple antihypertensive medications. He needs to lose weight. He needs to cut back sodium in the diet. He denied any cardiomyopathy. He has renal cysts for long time which has been followed by yearly imaging when he gets the scanned for pancreatic cyst. He is not known to have any significant proteinuria. He had biopsy of the renal lesions which were unremarkable as per the patient. I have ordered F/U blood work. Answered all questions. Follow-up given. Orders: Orders Creatinine 6 Months I10 - Essential (primary) hypertension, N28.1 - Cyst of kidney, acquired Blood Urea Nitrogen 6 Months I10 - Essential (primary) hypertension, N28.1 - Cyst of kidney, acquired Electrolytes 6 Months I10 - Essential (primary) hypertension, N28.1 - Cyst of kidney, acquired Coding Level of Care Code Est Pt Level 4 (60084) Diagnoses Primary hypertension I10 Hypertension type: primary hypertension Renal cyst N28.1
[2025-02-10 10:12] VITALS: BP 100/60; PULSE 94; O2SAT 99; BMI 29.3
--- OUTSIDE RECORDS SUMMARY | 2025-02-10 12:08 | XMS_ITS | Clinical Summary ---
Author Organization [facility] Address [address] [place] [address] Care Team Providers Care Green Building Energy Engineer Name Role Phone Vamshi Man MD Primary Care Provider [phone] Allergies Active Allergy Reactions Criticality Noted Date [...] age to complete this topic Care Teams Green Building Energy Engineer Relationship Specialty Start Date End Date Vamshi Man MD [address] [place] [id number] PCP - General Internal Medicine 05/02/23
--- OUTSIDE RECORDS SUMMARY | 2025-02-10 12:08 | XMS_ITS | Encounter Summary ---
Author Organization [facility] Address [address] [place] [address] Care Team Providers Care Pediatrician Managing Partner Name Role Phone Vamhsi Man MD Primary Care Provider [phone] Encounter Details Date Type Department Care Team (Late st Contact Info) Description 01/06/2025 myChart Message [facility] [address] [place] [address] Electrician Powerhouse: Iliana Jaramillo, [facility] [address] [place], [place] [phone] Genetics Follow Up Social History Tobacco Use [...] on filedocumented in this encounter Care Teams Pediatrician Managing Partner Relationship Specialty Start Date End Date Vamshi Man MD [address] [place] [phone] PCP - General Internal Medicine 07/22/24 documented as of this encounter
--- OUTSIDE RECORDS SUMMARY | 2025-02-10 12:08 | XMS_ITS | Patient Health Record ---
Author Organization [facility] Address [address] [place] [id number] Care Team Providers Care Paper Machine Tender Name Role Phone Arana Clarence Unavailable [phone] Reason For Referral No Information Plan Of Treatment No Information
--- OUTSIDE RECORDS SUMMARY | 2025-02-10 12:08 | XMS_ITS | Clinical Summary ---
Author Organization [facility] Address [address] [place] [address] Care Team Providers Care Antenna Machine Operator Name Role Phone Vamshi Man MD Primary Care Provider [phone] Encounters Date Type Department Care Team Description 01/06/2025 10:00 AM EDT Telehealth [facility] [address] [place] [address] [phone] Account Service Associate: Iliana Jaramillo CGC Cardiomyopathy, unspecified type (HCC) (Primary Dx) 01/06/2025 myChart Message [facility] [address] [place] [address] [phone] Account Service Associate: Iliana Jaramillo [facility] Genetics Follow Up from Last 3 Months [...] exists Insurance MEDICARE [facility] Care Teams Antenna Machine Operator Relationship Specialty Start Date End Date Vamshi Man MD [address] [place] [phone] PCP - General Internal Medicine 07/22/24
== END 2025-02-10 10:27 | disposition home or self-care (01) ==
LOC: HO.HKAS 10:06
PROVIDERS: PCP Internal Medicine; Visit Provider Internal Medicine Nephrology
DX: I10 Essential (primary) hypertension (principal); N28.1 Cyst of kidney, acquired
CPT/HCPCS: 99214

== ENCOUNTER → 2025-02-10 10:05 | Outpatient (BNVA) | payer MEDICARE, MEDICAID, SELFPAY | PROVIDERS: PCP Internal Medicine; Visit Provider Internal Medicine Nephrology | DX: I10 Essential (primary) hypertension (principal); N28.1 Cyst of kidney, acquired | CPT/HCPCS: 99212 ==

== ENCOUNTER 2025-02-19 06:44 | Emergency (ER) | payer MEDICARE, MEDICAID, SELFPAY ==
--- OUTSIDE RECORDS SUMMARY | 2024-01-30 13:30 | XMS_ITS | Encounter Summary ---
Author Organization [facility] Address [address] [place] [address] Care Team Providers Care Grinder Set Up Operator Thread Name Role Phone Vamshi Man MD Primary Care Provider [phone] Encounter Details Date Type Department Care Team (Late st Contact Info) Description 01/30/2024 2:30 PM EDT Hospital Encounter TH HISTORIC ENCOUNTERS EASTERN CONVERSION ONLY Kash Hammonds MD [address] [place] [address] Social History Tobacco Use Types Packs/Day Years Used Date Smoking Tobacco: Former Cigarettes Smokeless Tobacco: Former Alcohol Use Standard Drinks/Week Comments Not Currently 1 (1 standard drink = 0.6 oz pur e alcohol) Interpersonal Safety Answer Date Record ed Physical Abuse Unrecognized value 02/05/2025 Verbal Abuse Unrecognized value 02/05/2025 Sex and Gender Information Value Date Recorded Sex Assigned at Male 05/16/2024 10:20 AM EST Legal Sex Male 4:52 AM EST Gender Identity Male 05/16/2024 10:20 AM EST Sexual Orientation Straight 05/16/2024 10 :20 AM EST documented as of this encounter Functional Status * Calculated C-SSRS Risk Score (Lifetime/Recent) Answer Date of Assessment Author No Risk Indicated 11/25/2024 7:54 AM EDT Lisandra Herrera RN * [place] Suicide Severity Rating Scale (Screener/Recent Self-Report) Question Answer Date of Assessment Author 1. Wish to be (Past 1 Month) No 025 7:54 AM EDT Ruthie Herrera RN 2. Non-Specific Active Suici vanessa Thoughts (Past 1 Month) No 11/25/2024 7:54 AM EDT Ruthie Herrera RN 6. Suicidal Behavior (Lifetime) No 7:54 AM EDT Ruthie Herrera RN documented as of this encounter Plan of Treatment Upcoming Encounters Date Type Department Care Team (Late st Contact Info) Description 03/30/2025 8:30 AM EST Office Visit Gastroenterology - [address] [facility] [address] [place] [address] Idalia Sandoval PA [address] [place] [address] 03/31/2025 9:30 AM EST Office Visit Orthopedic Surgery - [place] [address] [place] [phone] Cheng Rea, DPM [address] [place] [phone] 04/29/2025 11:00 AM EST Ancillary Procedure [facility] [address] [place] [phone] 07/02/2025 8:40 AM EDT Office Visit [facility] - [facility] [address] [place] [phone] Angella Dickerson NP [address] [place] [address] [address] [place] [phone] documented as of this encounter Visit Diagnoses Not on filedocumented in this encounter Care Teams Grinder Set Up Operator Thread Relationship Specialty Start Date End Date Vamshi Man MD [address] [place] [id number] PCP - General 10/06/10 documented as of this encounter
--- OUTSIDE RECORDS SUMMARY | 2025-02-14 22:59 | XMS_ITS | Continuity of Care Document ---
Author Organization [facility] Address [address] [place] [id number]- Care Team Providers Care Winter Intern Name Role Phone Vamshi Man MD Primary Care Physician Encounter [facility] [place] Date(s): 01/15/25 - 02/14/25 [facility]/[address] [address]- Encounter Type: Triage Allergies, Adverse Reactions, Alerts Substance Criticality Severity Reaction Reaction Severity Status Other Food Allergy fresh pea ches - itchy mouth, throat and lips swell Active penicillin 1 rash Resolve d penicillins 2 Resolv ed Latex RASH Active 1rash per mother as child. Did take a penicillin for treatment of H pylori per pt w/o problem. 2Allergy report originated from childhood report by his mother with rash. As adult he has taken penicillin without complication for throat infection in [place] and as part of treatment for H. pylori that he recalls specifically Immunizations Given and Recorded Vaccine Date Status Refusal Reason influenza virus vaccine, inactivated 12/17/24 Ravindra rded influenza virus vaccine, inactivated 12/20/23 Ravindra rded influenza virus vaccine, inactivated 01/05/23 Ravindra rded [...] influenza virus vaccine, inactivated 03/19/06 Give n SARS-CoV-2(COVID-19)mRNA-LNP vac([id number]) 05/06/24 Given SARS-CoV-2(COVID-19)mRNA-LNP vac([id number]) 01/30/23 Given [id number] 12y+ bivalent booster vax 02/16/22 Given pneumococcal 20-valent conjugate vaccine 02/16/22 Given Influenza Virus Vaccine (oldterm) 9 01/27/22 Recor ded Influenza Virus Vaccine (oldterm) 01/26/21 Recorde d SARS-CoV-2 mRNA ([id number]) vax 11/11/21 Given SARS-CoV-2 (COVID-19) mRNA BNT-162b2 [...] Elissa Bertrand 13Result Comment: [11/27/2017] REceived at [facility][1] at [place], [place]; ordered by Dr Michael Oliveira 14Location History: Hospital ER 15Admin Note: VIS GIVEN 16Admin Note: [employer] VIS 02/12/2009 17Admin Note: 2nd 18Admin Note: GIVEN BY RN. 19Admin Note: third Medications 1 mL syringe with Luer-Manjit 1 mL syringe with Luer-Manjit, See Instructions, # 4 each, Refills 5, Tot. Refills 5, Maintenance, fortestosterone: 1mL Luer-Manjit syringe, 18G needle to draw from vial, 25G 5/8 needle for subcutaneous injection (expect to inject slowly due to needle size), 01/29/25 7:36:00 PM EDT, 18G preferred if available, Supply, 188, cm, 12/02/24 14:56:00 EDT, Height, 107.1, kg, 12/02/24 14:56:00 EDT, Dry Weight Start Date: 01/29/25 Status: Ordered Medication Dispense Status: Completed Quantity: 4.0 Unit: each Total Allowed Fills: 6 Fills Dispensed: 0 18G 1 inch hypodermic needle 18G 1 inch hypodermic needle, See Instructions, # 4 each, Refills 3, Tot. Refills 3, Maintenance, for withdrawing testosterone from vial, 01/29/25 7:36:00 PM EDT, Supply, 188, cm, 12/02/24 14:56:00 EDT, Height, 107.1, kg, 12/02/24 14:56:00 EDT, Dry Weight Start Date: 01/29/25 Status: Ordered Medication Dispense Status: Completed Quantity: 4.0 Unit: each Total Allowed Fills: 4 Fills Dispensed: 0 22G or 23G 1.5 inch hypodermic needle 22G or 23G 1.5 inch hypodermic needle, See Instructions, # 4 each, Refills 3, Tot. Refills 3, Maintenance, for testosterone. Use 21G, 22G or 23G needle for injection into abdominal fat, anterior thigh or lateral gluteal muscle, 03/20/24 10:13:00 AM EST, 22G preferred when available, Supply, 188, cm,02/19/24 13:07:00 EST, Height, 116.727, kg, 02/19/24 13:07:00 EST, Dry Weight Start Date: 03/20/24 Status: Ordered Medication Dispense Status: Completed Quantity: 4.0 Unit: each Total Allowed Fills: 4 Fills Dispensed: 0 25G 5/8 inch hypodermic needle 25G 5/8 inch hypodermic needle, See Instructions, # 4 each, Refills 5, Tot. Refills 5, Maintenance,for testosterone subcutaneous injection, 01/29/25 7:36:00 PM EDT, Supply, 188, cm, 12/02/24 14:56:00 EDT, Height, 107.1, kg, 12/02/24 14:56:00 EDT, Dry Weight Start Date: 01/29/25 Status: Ordered Medication Dispense Status: Completed Quantity: 4.0 Unit: each Total Allowed Fills: 6 Fills Dispensed: 0 3 mL syringe with 0.5-1.5 18G-21G needle 3 mL syringe with 0.5-1.5 18G-21G needle, See Instructions, # 4 each, Refills 3, Tot. Refills 3, Maintenance, for testosterone, withdrawing from vial., 03/20/24 10:13:00 AM EST, 18G preferred if available, Supply, 188, cm, 02/19/24 13:07:00 EST, Height, 116.727, kg, 02/19/24 13:07:00 EST, Dry Weight Start Date: 03/20/24 Status: Ordered Medication Dispense Status: Completed Quantity: 4.0 Unit: each Total Allowed Fills: 4 Fills Dispensed: 0 albuterol CFC free 90 mcg/inh inhalation aerosol 2, puffs, By Mouth, Every 4 hours, as needed Start Date: 08/20/18 Status: Ordered Medication Dispense Status: Completed Total Allowed Fills: 1 Fills Dispensed: 0 Alcohol Wipes See Instructions, # 100 each, Refills 5, Tot. Refills 5, Maintenance, for insulin and glucose testing up to 7x/wk total. Dx: E11, 11/18/20 3:30:00 PM EDT, Compound, 188, cm, 09/22/20 8:33:00 EDT, Height, 125.2, kg, 06/20/20 14:28:00 EST, Dry Weight Start Date: 11/18/20 Status: Ordered Medication Dispense Status: Completed Quantity: 100.0 Unit: each Total Allowed Fills: 6 Fills Dispensed: 0 ALPRAZolam [address] Tesha Schwarz, # 60 tablet, 0 Refills, Maintenance, 01/13/15 11:11:48 PM EDT Start Date: 01/13/15 Status: Ordered Medication Dispense Status: Completed Quantity: 60.0 Unit: tablet Total Allowed Fills: 1 Fills Dispensed: 0 Ambien 10 mg oral tablet 10 mg, 1, tablet, By Mouth, Daily at bedtime, PRN as needed for sleep, Dr Tesha Schwarz, 0 Refills Start Date: 12/23/07 Status: Ordered Medication Dispense Status: Completed Total Allowed Fills: 1 Fills Dispensed: 0 Arnuity Ellipta 100 mcg inhalation powder 1 puffs = 100 mcg, Inhalation, Every 24 hours, # 30 each, 11 Refills, Maintenance, 07/20/24 1:32:00 PM EDT, Powder, [facility], replaces Flovent due to insurance coverage, 188, cm, 05/21/24 12:59:00 EST, Height, 111.4, kg, 05/21/24 12:59:00 EST, Dry Weight Start Date: 07/20/24 Status: Ordered Medication Dispense Status: Completed Quantity: 30.0 Unit: each Total Allowed Fills: 12 Fills Dispensed: 0 Aspirin Low Dose 81 mg oral delayed release tablet 1 tablet, By Mouth, Daily, # 90 tablet, 4 Refills, Maintenance, 03/17/24 5:36:00 PM EST, [facility], 188, cm, 02/19/24 13:07:00 EST, Height, 116.727, kg, 02/19/24 13:07:00 EST, Dry Weight Start Date: 03/17/24 Status: Ordered Medication Dispense Status: Completed Quantity: 90.0 Unit: tablet Total Allowed Fills: 5 Fills Dispensed: 0 atorvastatin 80 mg oral tablet 1 tablet = 80 mg, By Mouth, Daily, 0 Refills, Maintenance, 05/06/24 2:04:00 PM EST, Tablet Start Date: 05/06/24 Status: Ordered Medication Dispense Status: Completed Total Allowed Fills: 1 Fills Dispensed: 0 AutoCPAP 9-18 with heated humidification AutoCPAP 9-18 with heated humidification, See Instructions, # 1 each, Refills 0, Tot. Refills 0, Maintenance, use overnight and naps from Regional, 11/04/18 12:28:22 PM EDT, Compound Start Date: 11/04/18 Status: Ordered Medication Dispense Status: Completed Quantity: 1.0 Unit: each Total Allowed Fills: 1 Fills Dispensed: 0 brimonidine 0.15% ophthalmic solution 0 Refills, Maintenance, 12/22/21 7:34:00 AM EDT Start Date: 12/22/21 Status: Ordered Medication Dispense Status: Completed Total Allowed Fills: 1 Fills Dispensed: 0 buPROPion 300 mg/24 hours (XL) oral tablet, extended release 1 tablet = 300 mg, By Mouth, Daily, Latosha Amy, Maintenance, 03/14/18 8:20:24 AM EST, ER Tablet Start Date: 03/14/18 Status: Ordered Medication Dispense Status: Completed Total Allowed Fills: 1 Fills Dispensed: 0 carvedilol 3.125 mg oral tablet 3.125 mg, 1, tablet, By Mouth, 2 times a day, per Dr Katheryn Haines, # 60 tablet, Maintenance, 12/09/24 2:34:00 PM EDT Start Date: 12/09/24 Status: Ordered Medication Dispense Status: Completed Quantity: 60.0 Unit: tablet Total Allowed Fills: 1 Fills Dispensed: 0 Compression Stockings See Instructions, # 3 each, Refills 0, Tot. Refills 0, Maintenance, surgical, knee length 20-30 mm Hg. Dx orthostasis, I95.1, 01/10/24 5:34:00 PM EDT, Supply Start Date: 01/10/24 Status: Ordered Medication Dispense Status: Completed Quantity: 3.0 Unit: each Total Allowed Fills: 1 Fills Dispensed: 0 diabetic shoes with 3 Plasizote inserts diabetic shoes with 3 Plasizote inserts, See Instructions, # 1 each, Refills 3, Tot. Refills 3, Maintenance, dx: diabetic mellitus 2, neuropathy and foot deformity. [facility], fax [phone], 03/17/24 5:24:00 PM EST, Supply Start Date: 03/17/24 Status: Ordered Medication Dispense Status: Completed Quantity: 1.0 Unit: each Total Allowed Fills: 4 Fills Dispensed: 0 diclofenac 1% topical gel = 4 Gm, Topically, 2 times a day, # 100 Gm, 1 Refills, Maintenance, 07/04/24 8:23:00 AM EDT, [facility], 14, APPLY 4 G TOPICALLY 2 TIMES DAILY., 188, cm, 05/21/24 12:59:00 EST, Height, 111.4, kg, 05/21/24 12:59:00 EST, Dry Weight Start Date: 07/04/24 Status: Ordered Medication Dispense Status: Completed Quantity: 100.0 Unit: g Total Allowed Fills: 1 Fills Dispensed: 0 docusate-senna 50 mg-187 mg oral tablet See Instructions, TAKE 1-3 TABLET BY MOUTH 2 TIMES A DAY NEEDED FOR CONSTIPATION, # 90 tablet, 10 Refills, Maintenance, 06/28/24 1:47:00 PM EDT, [facility], 30, TAKE 1-3 TABLET BY MOUTH 2TIMES A DAY NEEDED FOR CONSTIPATION, 188, cm, 05/21/24 12:59:00 EST, Height, 111.4, kg, 05/21/24 12:59:00 EST, Dry Weight Start Date: 06/28/24 Status: Ordered Medication Dispense Status: Completed Quantity: 90.0 Unit: tablet Total Allowed Fills: 1 Fills Dispensed: 0 duloxetine 60 mg oral enteric coated capsule TAKE 1 CAPSULE BY MOUTH ONCE A DAY WITH MEALS Start Date: 05/11/20 Status: Ordered Medication Dispense Status: Completed Total Allowed Fills: 1 Fills Dispensed: 0 Entresto 49 mg-51 mg oral tablet 1 tablet, By Mouth, 2 times a day, # 60 tablet, Maintenance, 04/26/23 2:22:00 PM EST, Tablet, Partial fill upon patient request if the prescription is for a schedule II opioid drug. Start Date: 04/26/23 Status: Ordered Medication Dispense Status: Completed Quantity: 60.0 Unit: tablet Total Allowed Fills: 1 Fills Dispensed: 0 EpiPen 2-Deejay 0.3 mg injectable kit Maria G Collado/Melissa, 0 Refills, Maintenance, 01/01/16 6:30:41 PM EDT Start Date: 01/01/16 Status: Ordered Medication Dispense Status: Completed Total Allowed Fills: 1 Fills Dispensed: 0 FreeStyle Tatyana 3 Plus Sensors See Instructions, # 2 each, Refills 11, Tot. Refills 11, Maintenance, Type 2 diabetes mellitus on insulin (E11, Z79.4). Change every 15 days., 09/19/24 2:09:00 PM EDT, Supply, 188, cm, 08/05/24 12:57:00 EDT, Height, 111.4, kg, 05/21/24 12:59:00 EST, Dry Weight Start Date: 09/19/24 Status: Ordered Medication Dispense Status: Completed Quantity: 2.0 Unit: each Total Allowed Fills: 12 Fills Dispensed: 0 Freestyle Tatyana 3 [place] Freestyle Tatyana 3 [place], See Instructions, # 1 each, Refills 0, Tot. Refills 0, Maintenance, Type 2 diabetes mellitus on insulin (E11, Z79.4). For use with Tatyana 3 sensors., 09/15/24 10:15:00 PM EDT, Compound, 188, cm, 08/05/24 12:57:00 EDT, Height, 111.4, kg, 05/21/24 12:59:00 EST, Dry Weight Start Date: 09/15/24 Status: Ordered Medication Dispense Status: Completed Quantity: 1.0 Unit: each Total Allowed Fills: 1 Fills Dispensed: 0 Freestyle Tatyana [place] Freestyle Tatyana [place], See Instructions, # 1 each, Refills 0, Tot. Refills 0, Maintenance, Type 2 diabetes mellitus on insulin (E11, Z79.4). For use w/ Tatyana sensor, 07/10/23 11:13:00 AM EDT, Compound, 188, cm, 07/05/23 11:09:00 EDT, Height, 126.09, kg, 04/26/23 13:06:00 EST, Dry Weight Start Date: 07/10/23 Status: Ordered Medication Dispense Status: Completed Quantity: 1.0 Unit: each Total Allowed Fills: 1 Fills Dispensed: 0 Freestyle Tatyana Sensor Freestyle Tatyana Sensor, See Instructions, # 2 each, Refills 5, Tot. Refills 5, Maintenance, Type 2 diabetes mellitus on insulin (E11, Z79.4). For use w/ Tatyana reader. Change every 14 days., 06/26/24 1:15:00 PM EDT, Recently sent to [facility]. Sending now to [facility] due to pt request msg that all Rx sent to [facility] be sent to [facility] Compound, 188, cm, 05/21/24 12:59:00 EST, Height, 111.4, kg, 05/21/24 12:59:00 EST, Dry Weight Start Date: 06/26/24 Status: Ordered Medication Dispense Status: Completed Quantity: 2.0 Unit: each Total Allowed Fills: 6 Fills Dispensed: 0 Freestyle Tatyana Sensor Freestyle Tatyana Sensor, See Instructions, # 2 each, Refills 5, Tot. Refills 5, Maintenance, Type 2 diabetes mellitus on insulin (E11, Z79.4). For use w/ Tatyana reader. Change every 14 days., 07/29/23 8:08:00 PM EDT, Compound, 188, cm, 07/26/23 17:37:00 EDT, Height, 121.81, kg, 07/26/23 13:30:00 EDT, Dry Weight Start Date: 07/29/23 Status: Ordered Medication Dispense Status: Completed Quantity: 2.0 Unit: each Total Allowed Fills: 6 Fills Dispensed: 0 Freestyle Lite Monitor See Instructions, # 1 each, Maintenance, Dx: E11 (DM2) (on insulin) Z79.4., 02/16/22 11:40:00 PM EDT, Compound, 188, cm, 02/16/22 13:07:00 EDT, Height, 122.63, kg, 11/22/21 16:37:00 EDT, Dry Weight Start Date: 02/16/22 Status: Ordered Medication Dispense Status: Completed Quantity: 1.0 Unit: each Total Allowed Fills: 1 Fills Dispensed: 0 FREESTYLE PHYLLIS LITE FREESTYLE PHYLLIS LITE, See Instructions, # 100 each, 10 Refills, Maintenance, USE UP TO 3X PER DAY NEEDED. DX: E11, 07/06/22 3:56:00 AM EDT, 188, cm, 05/19/22 10:14:00 EST, Height, 122.63, kg, 11/22/21 16:37:00 EDT, Dry Weight Start Date: 07/06/22 Status: Ordered Medication Dispense Status: Completed Quantity: 100.0 Unit: each Total Allowed Fills: 1 Fills Dispensed: 0 FREESTYLE PHYLLIS LITE FREESTYLE PHYLLIS LITE, See Instructions, # 100 each, 9 Refills, Maintenance, USE UP TO 3X PER DAY NEEDED. DX: E11, 08/08/22 9:44:00 AM EDT, 188, cm, 07/18/22 14:01:00 EDT, Height, 122.63, kg, 11/23/2215:37:00 EDT, Dry Weight Start Date: 08/08/22 Status: Ordered Medication Dispense Status: Completed Quantity: 100.0 Unit: each Total Allowed Fills: 1 Fills Dispensed: 0 Glucose Monitor See Instructions, PRN, # 1 each, Refills 0, Tot. Refills 0, Maintenance, diabetes mellitus 2, Embrace glucometer. Dx: E11, Z79. 4., diabetes m 2, 08/12/21 11:19:00 AM EDT, Compound, 188, cm, 07/27/21 8:34:00 EDT, Height, 125.2, kg, 06/20/20 14:28:00 EST, Dry Weight Start Date: 08/12/21 Status: Ordered Medication Dispense Status: Completed Quantity: 1.0 Unit: each Total Allowed Fills: 1 Fills Dispensed: 0 Home Blood Pressure Monitor See Instructions, # 1 each, Maintenance, electronic sensor, Hypertension with difficulty to control, 12/22/19 10:32:00 AM EDT, Compound Start Date: 12/22/19 Status: Ordered Medication Dispense Status: Completed Quantity: 1.0 Unit: each Total Allowed Fills: 1 Fills Dispensed: 0 isosorbide mononitrate 60 mg oral tablet, extended release 1 tablet = 60 mg, By Mouth, Daily in AM, # 90 tablet, 9 Refills, Maintenance, 05/06/24 2:06:00 PM EST, EC Tablet Start Date: 05/06/24 Status: Ordered Medication Dispense Status: Completed Quantity: 90.0 Unit: tablet Total Allowed Fills: 1 Fills Dispensed: 0 ketotifen 0.025% ophthalmic solution INSTILL 1 DROP INTO AFFECTED EYE TWICE A DAY Dr Poe Start Date: 05/11/20 Status: Ordered Medication Dispense Status: Completed Total Allowed Fills: 1 Fills Dispensed: 0 Lancets See Instructions, # 100 each, Refills 5, Tot. Refills 5, Maintenance, 3x per day for type 2 diabetes m. Dx: E11., 08/12/21 11:15:00 AM EDT, Compound, 188, cm, 07/27/21 8:34:00 EDT, Height, 125.2, kg, 06/20/20 14:28:00 EST, Dry Weight Start Date: 08/12/21 Status: Ordered Medication Dispense Status: Completed Quantity: 100.0 Unit: each Total Allowed Fills: 6 Fills Dispensed: 0 levocetirizine 5 mg oral tablet 1 tablet = 5 mg, By Mouth, Daily before dinner, Dr. Peyman Roach, # 30 tablet, Maintenance, 04/29/23 11:05:00 PM EST, Tablet Start Date: 04/29/23 Status: Ordered Medication Dispense Status: Completed Quantity: 30.0 Unit: tablet Total Allowed Fills: 1 Fills Dispensed: 0 lidocaine 5% topical ointment See Instructions, PRN Pain , Moderate, 1 APPLICATION TOPICALLY 3 TIMES A DAY. May interchange with 4% cream/ointment per insurance coverage, # 50 Gm, 5 Refills, Maintenance, 10/14/24 1:57:00 PM EDT, [facility], 1 APPLICATION TOPICALLY 3 TIMES A DAY. May interchange with 4% cream/ointment per insurance coverage,PRN:Pain , Moderate, 188, cm, 10/14/24 13:21:00 EDT, Height, 244.2, kg, 07/01/25 13:21:00 EDT, Dry Weight Start Date: 10/14/24 Status: Ordered Medication Dispense Status: Completed Quantity: 50.0 Unit: g Total Allowed Fills: 6 Fills Dispensed: 0 Linzess 290 mcg oral capsule 1 capsule = 290 mcg, By Mouth, Daily, # 30 capsule, 0 Refills, Maintenance, 02/16/22 2:12:00 PM EDT,Capsule, Partial fill upon patient request if the prescription is for a schedule II opioid drug. Start Date: 02/16/22 Status: Ordered Medication Dispense Status: Completed Quantity: 30.0 Unit: capsule Total Allowed Fills: 1 Fills Dispensed: 0 LUBRIC TEARS CALE 0.4-0.3% Milliliters INSTILL 1 DROP FOUR TIMES DAILY EACH EYE Start Date: 05/11/20 Status: Ordered Medication Dispense Status: Completed Total Allowed Fills: 1 Fills Dispensed: 0 magnesium oxide 400 mg oral tablet 1 tablet = 400 mg, By Mouth, Daily, # 90 tablet, 4 Refills, Maintenance, 12/02/24 4:40:00 PM EDT, Tablet, [facility], 188, cm, 12/02/24 14:56:00 EDT, Height, 107.1, kg, 12/02/24 14:56:00 EDT, Dry Weight Start Date: 12/02/24 Status: Ordered Medication Dispense Status: Completed Quantity: 90.0 Unit: tablet Total Allowed Fills: 5 Fills Dispensed: 0 metFORMIN 750 mg oral tablet, extended release 1 tablet = 750 mg, By Mouth, Daily, [replaces the metformin 500mg bid], # 90 tablet, 3 Refills, Maintenance, 12/02/24 4:40:00 PM EDT, ER Tablet, [facility], 188, cm, 12/02/24 14:56:00 EDT, Height, 107.1, kg, 12/02/24 14:56:00 EDT, Dry Weight Start Date: 12/02/24 Status: Ordered Medication Dispense Status: Completed Quantity: 90.0 Unit: tablet Total Allowed Fills: 4 Fills Dispensed: 0 methadone 10 mg oral tablet See Instructions, By mouth. 2 tab in AM, 1.5 midday, 2 in evening;for pain. IDC10: G90.5 CRPS. 28 day supply. [facility]., # 154 tablet, 0 Refills, Maintenance, pain, 02/24/25 2:59:00 PM EST, [facility], August partial fill., 02/24/25, 188, cm, 12/02/24 14:56:00 EDT, Height, 107.1,kg, 12/02/24 14:56:00 EDT, Dry Weight Start Date: 02/24/25 Status: Ordered Medication Dispense Status: Completed Quantity: 154.0 Unit: tablet Total Allowed Fills: 1 Fills Dispensed: 0 methadone 10 mg oral tablet See Instructions, By mouth. 2 tab in AM, 1.5 midday, 2 in evening;for pain. IDC10: G90.5 CRPS. 28 day supply. [facility]., # 154 tablet, 0 Refills, Maintenance, pain, 01/27/25 2:59:00 PM EDT, [facility], August partial fill., 01/27/25, 188, cm, 12/02/24 14:56:00 EDT, Height, 107.1,kg, 12/02/24 14:56:00 EDT, Dry Weight Start Date: 01/27/25 Status: Ordered Medication Dispense Status: Completed Quantity: 154.0 Unit: tablet Total Allowed Fills: 1 Fills Dispensed: 0 methadone 10 mg oral tablet See Instructions, By mouth. 2 tab in AM, 1.5 midday, 2 in evening;for pain. IDC10: G90.5 CRPS. 28 day supply. [facility]., # 154 tablet, 0 Refills, Maintenance, pain, 10/07/24 11:21:00 PM EDT, [facility], August partial fill., 10/07/24, 188, cm, 08/05/24 12:57:00 EDT, Height, 111.4,kg, 05/21/24 12:59:00 EST, Dry Weight Start Date: 10/07/24 Status: Ordered Medication Dispense Status: Completed Quantity: 154.0 Unit: tablet Total Allowed Fills: 1 Fills Dispensed: 0 methadone 10 mg oral tablet See Instructions, By mouth. 2 tab in AM, 1.5 midday, 2 in evening;for pain. IDC10: G90.5 CRPS. 28 day supply. [facility]., # 154 tablet, 0 Refills, Maintenance, pain, 12/30/24 6:09:00 PM EDT, [facility], May partial fill., 12/30/24, 188, cm, 10/14/24 13:21:00 EDT, Height, 244.2, kg, 10/14/24 13:21:00 EDT, Dry Weight Start Date: 12/30/24 Status: Ordered Medication Dispense Status: Completed Quantity: 154.0 Unit: tablet Total Allowed Fills: 1 Fills Dispensed: 0 Mounjaro 15 mg/0.5 mL subcutaneous solution = 15 mg, Subcutaneous Injection, Every week, rotate injection sites dose increase, # 4 each, 11 Refills, Maintenance, 12/02/24 4:43:00 PM EDT, Solution, [facility]) #[id number], 188, cm, 12/02/24 14:56:00 EDT, Height, 107.1, kg, 12/02/24 14:56:00 EDT, Dry Weight Start Date: 12/02/24 Status: Ordered Medication Dispense Status: Completed Quantity: 4.0 Unit: each Total Allowed Fills: 12 Fills Dispensed: 0 naproxen 500 mg oral tablet 1 tablet = 500 mg, By Mouth, 2 times a day, # 60 tablet, Maintenance, 08/11/23 11:46:00 AM EDT, Tablet Start Date: 08/11/23 Status: Ordered Medication Dispense Status: Completed Quantity: 60.0 Unit: tablet Total Allowed Fills: 1 Fills Dispensed: 0 Narcan 4 mg/0.1 mL nasal spray = 4 mg, Nares, Both, Once, may repeat every 2 to 3 minutes until patient responds, # 2 each, 1 Refills, Soft Stop, 02/19/24 10:52:00 PM EST, [facility], 188, cm, 02/19/24 13:07:00 EST, Height, 116.727, kg, 02/19/24 13:07:00 EST, Dry Weight Start Date: 02/19/24 Status: Ordered Medication Dispense Status: Completed Quantity: 2.0 Unit: each Total Allowed Fills: 2 Fills Dispensed: 0 nystatin topical [id number] u/gm cream 1 application, Topically, 2 times a day, for fungal groin rash, # 60 Gm, 3 Refills, Maintenance, 12/02/24 5:02:00 PM EDT, Cream, [facility], 1 application Topically 2 times a day,Instr:for fungal groin rash, 188, cm, 12/02/24 14:56:00 EDT, Height, 107.1, kg, 12/02/24 14:56:00 EDT, Dry Weight Start Date: 12/02/24 Status: Ordered Medication Dispense Status: Completed Quantity: 60.0 Unit: g Total Allowed Fills: 4 Fills Dispensed: 0 ondansetron 4 mg oral tablet Rx by Idalia Sandoval, # 60, Maintenance, 08/11/23 11:48:00 AM EDT Start Date: 08/11/23 Status: Ordered Medication Dispense Status: Completed Quantity: 60.0 Unit: Total Allowed Fills: 1 Fills Dispensed: 0 pantoprazole 40 mg oral delayed release tablet 0 Refills, Maintenance, 02/16/22 11:33:00 PM EDT Start Date: 02/16/22 Status: Ordered Medication Dispense Status: Completed Total Allowed Fills: 1 Fills Dispensed: 0 PEN NEEDLES MIS [id number] PEN NEEDLES MIS [id number], See Instructions, # 150 each, 5 Refills, Maintenance, USE 2-5X/DAY TYPE 2 DIABETES MELLITUS ON LANTUS AND HUMALOG INSULIN WITH PEN, 06/03/24 12:11:00 PM EST, 188, cm, 05/21/2511:59:00 EST, Height, 111.4, kg, 05/21/24 12:59:00 EST, Dry Weight Start Date: 06/03/24 Status: Ordered Medication Dispense Status: Completed Quantity: 150.0 Unit: each Total Allowed Fills: 1 Fills Dispensed: 0 Pen Camby, 31 G x 8 mm BD Ultra Fine III See Instructions, # 100 each, Refills 11, Tot. Refills 11, Maintenance, use 2- 5x/day Type 2 Diabetes Mellitus on Lantus and Humalog insulin with pen, 05/31/23 1:55:00 PM EST, Compound, 188, cm, 05/09/23 12:59:00 EST, Height, 126.09, kg, 04/26/23 13:06:00 EST, Dry Weight Start Date: 05/31/23 Stop Date: 05/25/24 Status: Ordered Medication Dispense Status: Completed Quantity: 100.0 Unit: each Total Allowed Fills: 12 Fills Dispensed: 0 prazosin 1 mg oral capsule 5 mg, AT BEDTIME Start Date: 05/11/20 Status: Ordered Medication Dispense Status: Completed Total Allowed Fills: 1 Fills Dispensed: 0 Rocklatan 0.02%-0.005% ophthalmic solution Maintenance, 08/11/23 11:32:00 AM EDT Start Date: 08/11/23 Status: Ordered Medication Dispense Status: Completed Total Allowed Fills: 1 Fills Dispensed: 0 SAFETY 30G MIS LANCETS SAFETY 30G MIS LANCETS, See Instructions, # 100 each, 11 Refills, Maintenance, USE DIRECTED THREE TIMES DAILY, 06/13/22 11:35:00 AM EST, 188, cm, 05/19/22 10:14:00 EST, Height, 122.63, kg, 11/23/2215:37:00 EDT, Dry Weight Start Date: 06/13/22 Status: Ordered Medication Dispense Status: Completed Quantity: 100.0 Unit: each Total Allowed Fills: 1 Fills Dispensed: 0 Shower Chair See Instructions, # 1 each, Maintenance, with back. Dx: R26.81 unsteadiness; osteoarthritis, neuropathy. [facility], 03/17/24 5:37:00 PM EST, Supply Start Date: 03/17/24 Status: Ordered Medication Dispense Status: Completed Quantity: 1.0 Unit: each Total Allowed Fills: 1 Fills Dispensed: 0 Singulair 10 mg oral tablet 10 mg, 1, tablet, By Mouth, Daily, # 90 tablet, Refills 3, Tot. Refills 3, Maintenance, 02/18/23 7:20:00 PM EST, Route to Pharmacy Electronically, [facility], 188, cm, 01/30/23 13:26:00 EDT,Height, 126, kg, 01/30/23 13:26:00 EDT, Dry Weight Start Date: 02/18/23 Status: Ordered Medication Dispense Status: Completed Quantity: 90.0 Unit: tablet Total Allowed Fills: 4 Fills Dispensed: 0 spironolactone 25 mg oral tablet 25 mg, 1, tablet, By Mouth, Daily, Refills 0, Maintenance, 04/26/23 2:34:00 PM EST, Partial fill upon patient request if the prescription is for a schedule II opioid drug. Start Date: 04/26/23 Status: Ordered Medication Dispense Status: Completed Total Allowed Fills: 1 Fills Dispensed: 0 Tab-A-Kelsie oral tablet See Instructions, TAKE 1 TABLET BY MOUTH DAILY, # 30 tablet, 4 Refills, Maintenance, 05/28/24 3:34:00 PM EST, [facility], 60, TAKE 1 TABLET BY MOUTH DAILY, 188, cm, 05/21/24 12:59:00 EST, Height, 111.4, kg, 05/21/24 12:59:00 EST, Dry Weight Start Date: 05/28/24 Status: Ordered Medication Dispense Status: Completed Quantity: 30.0 Unit: tablet Total Allowed Fills: 1 Fills Dispensed: 0 tamsulosin 0.4 mg oral capsule 2, capsule, By Mouth, Daily, INSTR:DOSE INCREASE, # 60 capsule, Refills 5, Maintenance, 10/23/24 12:17:00 PM EDT, Route to Pharmacy Electronically, [facility], 188, cm, 10/14/24 13:21:00 EDT, Height, 244.2, kg, 10/14/24 13:21:00 EDT, Dry Weight Start Date: 10/23/24 Status: Ordered Medication Dispense Status: Completed Quantity: 60.0 Unit: capsule Total Allowed Fills: 1 Fills Dispensed: 0 Test Strips See Instructions, # 100 each, Refills 11, Tot. Refills 11, Maintenance, [employer] glucometer test strips. Dx Type 2 diabetes mellitus on insulin (E11, Z79.4). Test 3x/day if symptoms, or Tatyana sensor concerns., 12/09/24 3:03:00 PM EDT, [facility], 188, cm, 12/02/24 14:56:00 EDT, Height, 107.1, kg, 12/02/24 14:56:00 EDT, Dry Weight Start Date: 12/09/24 Status: Ordered Medication Dispense Status: Completed Quantity: 100.0 Unit: each Total Allowed Fills: 12 Fills Dispensed: 0 Test Strips See Instructions, # 100 each, Refills 11, Tot. Refills 11, Maintenance, Precision Ganga strips (for Freestyle Tatyana glucometer). Type 2 diabetes mellitus on insulin (E11, Z79.4). Test 2-4x/day if symptoms, or sensor concerns., 10/17/23 8:28:00 PM EDT, [facility], 188, cm, 07/26/23 17:37:00 EDT, Height, 121.81, kg, 07/26/23 13:30:00 EDT, Dry Weight Start Date: 10/17/23 Status: Ordered Medication Dispense Status: Completed Quantity: 100.0 Unit: each Total Allowed Fills: 12 Fills Dispensed: 0 testosterone cypionate 200 mg/mL intramuscular solution = 150 mg, Subcutaneous Injection, Every 14 days, May interchange with enanthate or propionate if cypionate not covered/available, # 2 mL, 5 Refills, Maintenance, 02/08/25 1:50:00 PM EDT, [facility], subcutaneous not IM, 188, cm, 12/02/24 14:56:00 EDT, Height, 107.1, kg, 12/02/24 14:56:00 EDT, Dry Weight Start Date: 02/08/25 Status: Ordered Medication Dispense Status: Completed Quantity: 2.0 Unit: mL Total Allowed Fills: 6 Fills Dispensed: 0 tiZANidine 2 mg oral tablet 2 mg, 1, tablet, By Mouth, Every 8 hours, PRN, # 200 tablet, Refills 2, Tot. Refills 2, Maintenance, as needed for muscle spasm, 02/12/25 2:15:00 PM EDT, Route to Pharmacy Electronically, [facility], 188, cm, 02/12/25 12:55:00 EDT, Height, 107.1, kg, 12/02/24 14:56:00 EDT, Dry Weight Start Date: 02/12/25 Status: Ordered Medication Dispense Status: Completed Quantity: 200.0 Unit: tablet Total Allowed Fills: 3 Fills Dispensed: 0 Tylenol Extra Strength 500 mg oral tablet 2 tablet = 1,000 mg, By Mouth, 3 times a day, # 30 tablet, 11 Refills, Maintenance, 03/24/21 9:00:00PM EST, [facility], 188, cm, 03/22/21 14:17:00 EST, Height, 125.2, kg, 06/20/20 14:28:00 EST, Dry Weight Start Date: 03/24/21 Status: Ordered Medication Dispense Status: Completed Quantity: 30.0 Unit: tablet Total Allowed Fills: 12 Fills Dispensed: 0 Vitamin D3 1000 intl units oral tablet 1 tablet = 25 mcg, By Mouth, Daily, # 90 tablet, 3 Refills, Maintenance, 12/02/24 4:39:00 PM EDT, [facility], 188, cm, 12/02/24 14:56:00 EDT, Height, 107.1, kg, 12/02/24 14:56:00 EDT, Dry Weight Start Date: 12/02/24 Status: Ordered Medication Dispense Status: Completed Quantity: 90.0 Unit: tablet Total Allowed Fills: 4 Fills Dispensed: 0 Problem List Condition Confirmation Course Effective Dates Status Health Status Informant Alcohol abuse - per josé 2015 Confirmed Active Allergic rhinitis Confirmed Active Anxiety disorder Confirmed Active Asthma Confirmed Active 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 Confirmed 2023 Active Cardiomyopathy, nonischemic Confirmed Active Cataracts Confirmed 2013 Active Cervical [...] Confirmed Active Gastresophageal reflux disease Confirmed Active Glaucoma Confirmed Active Hx of syphilis serology Confirmed Active Hypertriglyceridemia Confirmed Active Erectile dysfunction Confirmed 2015 Active Chronic lateral epicondylitis of elbow 4 Confirmed 2010 Active Chronic back pain Confirmed Active Diabetic retinopathy, nonproliferative, mild Confirmed 2023 Active DHARA (obstructive sleep apnea) Confirmed 03/18/04 [...] 2008 Social History Social History Type Response Sexual Sexually involved in last 6 months: Yes. Gender identity: Male. Smoking Status Former smoker, quit more than 30 days ago entered on: 07/26/23 Sex Male Sex Representation Male (finding) Patient Care team information Care Team Personnel Name: Shoaib An RN Position: [facility] RN Supv Member Role: Primary Care Nurse Name: Vamshi Man MD Position: [facility] Physician - Primary Care Member Role: PCP Address: [address] [place] [address] Telecom: Name: Luz Potter Position: [facility] Outreach Member Role: [employer] Consult[employer] Physician Name: Miki Rodriguez MD Position: [facility] Outreach Member Role: [employer] Consulting Physician Address: [address] [place] [address] [address] [facility], [address] Telecom: Care Team Related Persons Name: BRANDON MTZ Name: BRANDON BARKER Name: ROSALINDA BERTRAND Insurance Providers Guarantor name: ELISSA BERTRAND Health Plan Information #: 1 Payer: MEDICARE B Payer Identifier: Member Number: [id number] Group Number: Subscriber Identifier: Relationship to Subscriber: self Coverage Type: NA Coverage Verification Date: NA Telecom: NA Address: Health Plan Information #: 2 Payer: [employer] Payer Identifier: Member Number: [id number] Group Number: Subscriber Identifier: NA Relationship to Subscriber: self Coverage Type: MEDICAID Coverage Verification Date: Telecom: Address:
--- OUTSIDE RECORDS SUMMARY | 2025-02-16 14:00 | XMS_ITS | Encounter Summary ---
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 Name Role Phone Vamshi Man MD Primary Care Provider [phone] Reason for Visit * Reason Comments Pain fracture Encounter Details Date Type Department Care Team (Late st Contact Info) Description 02/16/2025 2:00 PM EST Office Visit Orthopedic Surgery - [place] [address] [address] Cheng Rea, DPM [address] [address] Tendinitis of right ankle (Primary Dx); Plantar fascial fibromatosis Social History Tobacco Use Types Packs/Day Years [...] as of this encounter Progress Notes * Cheng Rea DPM - 02/16/2025 2:00 PM ESTAssociated Order(s): Injection tendon or ligament Post-Procedure Diagnose(s): Plantar fascial fibromatosis S Patient presents with a history of fracture and surgery of his right foot and ankle he states that multiple surgeries in the past most recently in 1993 states that he is a chronic pain and discomfortpatient has scheduled surgery for screw removal and removal of malformation of bone with reattachment of tendon Case was canceled secondary to cardiovascular concerns continues have chronic pain disco mfort in this area reports that has been somewhat managed with shoe adjustments does note his previous injection helped tremendously his pain discomfort in his right forefoot has resolved he now has some new pain in the arch of his right foot reports the pain discomfort in the center of his right foot and has been going for the last 2 to 3 weeks he denies history of trauma patient declined american sign language interpreter services today's appointment ROS: GENERAL: Pt denies nausea, fever, vomiting, chills, or shortness of breath. Pt in NAD. CARDIOLOGY: pt denies chest pain, palpitations LUNGS: pt denies shortness of breath MUSCULOSKELETAL: See HPI, otherwise no joint pain or swelling, back pain, or muscle pain. SKIN: see HPI, otherwise no lesions, rash or itching NEURO: No persistent headache, weakness or numbness The remainder of the review of systems is noncontributory PAST MEDICAL HISTORY: Patient Active Problem List Diagnosis Urethral stone Stage 3a chronic kidney disease ([facility] V24, [facility] V28) Cervical spondylosis Asthma Renal osteodystrophy Renal mass Renal lesion Plantar fasciitis Nephrotic syndrome Mixed hyperlipidemia Low back pain Lateral epicondylitis Internal hemorrhoids with complication Impotence of organic origin Impingement syndrome of shoulder region HTN (hypertension) Gastroparesis Gastroesophageal reflux disease Dysphagia Diabetes mellitus type 2, uncomplicated ([facility] V24, [facility] V28) Deficiency of testosterone biosynthesis Condyloma acuminatum Class 1 obesity Chronic pain syndrome Chronic kidney disease, stage 2 (mild) Chronic constipation Cervical disc disorder with radiculopathy Cataract Cardiomyopathy ([facility] V24, [facility] V28) Anxiety disorder Anal fissure Allergic rhinitis Alcohol abuse CAD (coronary artery disease) Chronic HFrEF (heart failure with reduced ejection fraction) ([facility] V24, [facility] V28) Esophageal reflux Irritable bowel syndrome Sleep apnea Closed avulsion fracture of metatarsal bone of right foot Closed displaced fracture of cuboid bone of right foot with malunion Tendinitis of right ankle SSS (sick sinus syndrome) ([facility] V24, [facility] V28) Left bundle branch block SOCIAL HISTORY: Social History Tobacco Use Smoking status: Former Types: Cigarettes Smokeless tobacco: Former Substance Use Topics Alcohol use: Not Currently Alcohol/week: 1.0 standard drink of alcohol ACTIVE MEDICATIONS: Outpatient Medications Marked as Taking for the 02/16/25 encounter (Office Visit) with Cheng Buchanan DPM Medication Sig Dispense Refill albuterol HFA (PROAIR HFA ; PROVENTIL HFA ; VENTOLIN HFA) 90 mcg/actuation inhaler as needed. ALPRAZolam (XANAX) 2 mg tablet Take 1 tablet (2 mg total) by mouth 2 (two) times a day. Arnuity Ellipta 100 mcg/actuation blister with device inhaler aspirin 81 mg EC tablet Take 1 tablet (81 mg total) by mouth 1 (one) time each day. 90 tablet 3 atorvastatin (LIPITOR) 80 mg tablet Take 1 tablet (80 mg total) by mouth 1 (one) time each day. 90 tablet 1 bisacodyL (DULCOLAX) 5 mg EC tablet Take 2 tablets by mouth right before beginning bowel prep. See instructions provided by the office 2 tablet 0 brimonidine (ALPHAGAN) 0.2 % ophthalmic solution buPROPion XL (WELLBUTRIN XL) 300 mg 24 hr tablet carvediloL (COREG) 3.125 mg tablet Take 1 tablet (3.125 mg total) by mouth 2 (two) times a day withmeals. 180 tablet 1 cholecalciferol (VITAMIN D-3) 25 mcg (1,000 unit) tablet Take 1 tablet (1,000 Units total) by mouth1 (one) time each day. DULoxetine (CYMBALTA) [address] capsule Take 1 capsule (60 mg total) by mouth 1 (one) time each day. fluticasone HFA (Flovent HFA) 110 mcg/actuation inhaler Inhale 1 puff by mouth 1 (one) time each day. glipiZIDE (GLUCOTROL) 5 mg tablet Take 1 tablet (5 mg total) by mouth 2 (two) times a day before meals. ibuprofen (ADVIL,MOTRIN) 800 mg tablet Take 1 tablet (800 mg total) by mouth as needed. isosorbide mononitrate (IMDUR) 60 mg 24 hr tablet levocetirizine (XYZAL) 5 mg tablet linaCLOtide (Linzess) 290 mcg capsule Take 1 capsule (290 mcg total) by mouth 1 (one) time each day. 90 capsule 1 metformin HCl (METFORMIN ORAL) Take 750 tablets by mouth 1 (one) time each day. methadone (DOLOPHINE) 10 mg tablet Take 1 tablet (10 mg total) by mouth 1 (one) time each day if needed. methocarbamoL (ROBAXIN) 500 mg tablet montelukast (SINGULAIR) 10 mg tablet Take 1 tablet (10 mg total) by mouth. Mounjaro 15 mg/0.5 mL injection Inject 50 mg under the skin every 7 (seven) days. naproxen (EC NAPROSYN) 500 mg EC tablet Take 1 tablet (500 mg total) by mouth 1 (one) time each day. nystatin (MYCOSTATIN) cream Apply 1 Application topically. pantoprazole (PROTONIX) 40 mg EC tablet Take 1 tablet (40 mg total) by mouth 2 (two) times a day before meals. Do not crush, chew, or split. 180 tablet 1 polyethylene glycol (Golytely) 236-22.74-6.74 -5.86 gram solution Take 4L by mouth once for one dose. May substitue any PEG. Starting at 2PM the day before your procedure drink 1 8oz glasses at your own pace until you complete half of the gallon. Finish 2nd half of the gallon at 8PM. 4000 mL 0 polyethylene glycol-electrolytes (NULYTELY) 420 gram solution sacubitriL-valsartan (Entresto) 49-51 mg per tablet Take 1 tablet by mouth 2 (two) times a day. 180tablet 1 senna-docusate (PERICOLACE) 8.6-50 mg per tablet Take 1 tablet by mouth 4 times daily as needed. spironolactone (ALDACTONE) 25 mg tablet Take 0.5 tablets (12.5 mg total) by mouth 1 (one) time eachday. 90 each 0 tamsulosin (FLOMAX) 0.4 mg 24 hr capsule Take 1 capsule (0.4 mg total) by mouth 2 (two) times a day. Take 30 mins after same meal every day. testosterone cypionate (DEPO-TESTOTERONE) 200 mg/mL injection Inject as directed See administrationinstructions. testosterone enanthate (DELATESTRYL) 200 mg/mL injection tiZANidine (ZANAFLEX) 2 mg tablet Toujeo Max U-300 SoloStar 300 unit/mL (3 mL) CONCENTRATED injection pen Inject 10 Units under the skin at bedtime. zolpidem (AMBIEN) 10 mg tablet Take 1 tablet (10 mg total) by mouth at bedtime as needed. ALLERGIES: Allergies Allergen Reactions Latex Rash Edgar Itching Itchy mouth and swelling of lips Penicillins Rash PHYSICAL EXAM: Visit Vitals Smoking Status Former PODIATRIC EXAMINATION: GENERAL: Patient appears well nourished, with NAD. VASCULAR: Dorsalis pedis pulses are 2/4 bilaterally and Posterior tibial pulses are 2/4 bilaterally. Capillary filling time within normal limits the digits. No pallor on elevation or rubor on dependency. Positive hair growth. No varicosities. Denies rest pain or claudication pain. NEUROLOGICAL: Sharp/dull sensation intact, protective sensation intact 10/10 with 5.07 semmes leo bilaterally, vibratory sensation with tuning fork intact to the tibial tuberosity. ORTHOPEDIC: Good muscle strength 5/5 of all flexors and extensors. Dorsi flexion of ankle ,10 degrees, plantar flexion WNL. No muscle atrophy. DERMATOLOGICAL: Normal scar tissue noted over the right foot multiple both posterior lateral malleolus as well as around the fifth metatarsal base BIOMECHANICS: STJ ROM increased inversion eversion, MTJ ROM wnl, 1st MPJ ROM wnl. Notable crepitation on the fifth metatarsal with the cuboid joint with extensive heterotrophic bone formation in bothof these areas patient does have a pes cavus foot type Pain with patient with central plantar fascial band right Capsulitis inflammation of the fifth metatarsophalangeal joint right completely resolved IMAGING: Radiographs reviewed consistent with extensive severe heterotrophic bone formation of the fifth metatarsal base and lateral cuneiform with possible old malunion of fracture of the fifth metatarsal base screws intact no signs of radiolucencies or failure malunion of the cuboid heterotrophic bone formation. IMPRESSION: 1. Tendinitis of right ankle 2. Plantar fascial fibromatosis PLAN: New Rx sent to [facility] Performance compounding cream of diclofenac sodium 5% baclofen 2% Cyclobenzaprine 2% Gabapentin 10%Bupivicaine 2% patient with the think about this option AFO lace up brace fitted dispensed to be worn left lower extremity for tenderness of left lower extremity can continue with Due to cardiology workup patient is not a candidate for surgical cancel his case for cardiology forfurther intervention discussed alternative treatment options for peroneal tendon chronic tear revisited surgical options the patient in detail insufficiency and malunion of cuboid Custom bracing was discussed and reviewed Treatment options were discussed and reviewed including stretching exercises demonstrated for patient anti-inflammatory medications steroid injections orthotics and insoles Recommendations given for prefabricated insoles Possible benefits of repeat radiographs reviewed patient like to hold off on at this time Follow-up in 4 to 6 weeks Injection of right plantar fascial ligament was performed after consent was obtained. Risks and benefits discussed in detail with patient and include but are not limited to risk of infection risk of recurrence . Injection given of half cc 1% lidocaine half cc of Kenalog 40 Cheng Rea DPM Injection tendon or ligament Indications: pain Details: 25 G needle Medications: 0.5 mL lidocaine (PF) 1 %; 20 mg triamcinolone acetonide 40 mg/mL Informed Consent: Site: Foot ligament tendon Cheng Rea DPM documented in this encounter Plan of Treatment Upcoming Encounters Date Type Department Care Team (Late st Contact Info) Description 03/30/2025 8:30 AM EST Office Visit Gastroenterology - [facility] [address] [place] [id number] Idalia Sandoval PA [address] [facility] [address] [place] [address] 03/31/2025 9:30 AM EST Office Visit Orthopedic Surgery - [place] [address] [facility] [address] [place] [phone] Cheng Rea DPM [address] [place] [address] 04/29/2025 11:00 AM EST Ancillary Procedure [facility] Cardiology [facility] [address] [place] [address] 07/02/2025 8:40 AM EDT Office Visit [facility] [address] [place] [address] Angella Dickerson NP [address] [place] [address] [address] [place] [address] documented as of this encounter Goals Goal Patient Goal Type Associated Problems Recent Progress Patient-Stated? Author Autogenerat ed Goal Care Plan Autogenerated Problem No Eligio Cohen documented as of this encounter Procedures Procedure Name Priority Date/Time Associated Diagnosis Comments INJECTION TENDON OR LIGAMENT Routine 02/16/2025 2:00 PM EST Plantar fascial fibromatosis documented in this encounter Results * Injection tendon or ligament (02/16/2025 2:00 PM EST) Narrative Cheng Rea DPM - 02/16/2025 2:00 PM EST Cheng Rea DPM 02/16/2025 4:55 PM Injection tendon or ligament Indications: pain Details: 25 G needle Medications: 0.5 mL lidocaine (PF) 1 %; 20 mg triamcinolone acetonide 40 mg/mL Informed Consent: Site: Foot ligament tendon us Cheng Rea DPM IN CLINIC/BEDSIDE ORDERAB LES Final Result documented in this encounter Visit Diagnoses Diagnosis Tendinitis of right ankle- Primary Plantar fascial fibromatosis documented in this encounter Administered Medications Inactive Administered Medications - up to 3 most recent administrations Medication Order MAR Action Action Date Dose Rate Site lidocaine (PF) (XYLOCAINE-MPF) 1 % injection 0.5 mL 0.5 mL, Once PRN Procedure, Starting on 02/16/25 at 1400, For 1 doseIndications:Plantar fascial fibromatosis Given 02/16/2025 2:00 PM EST 0.5 mL triamcinolone acetonide (KENALOG-40) 40 mg/mL injection 20 mg 20 mg, Once PRN Procedure, Starting on Sun02/16/25 at 1400, For 1 doseIndications:Plantar fascial fibromatosis Given 02/16/2025 2:00 PM EST 20 mg documented in this encounter Historical Medications * This list may reflect changes made after this encounter. Medication Sig Dispense Quantity Refills Last Filled Start D ate End Date tiZANidine (ZANAFLEX) 2 mg tablet 02/12/2025 polyethylene glycol-electrolytes (NULYTELY) 420 gram solution 01/22/2025 methocarbamoL (ROBAXIN) 500 mg tablet 02/02/2025 02/17/2025 added in this encounter Additional Health Concerns Active Problems Noted Date Diagnosed Date Autogenerated Problem 01/12/2025 documented as of this encounter Care Teams Rock Wool Applicator Relationship Specialty Start Date End Date Vamshi Man MD [address] [place] [id number] PCP - General 10/06/10 documented as of this encounter
--- OUTSIDE RECORDS SUMMARY | 2025-02-17 11:20 | XMS_ITS | Encounter Summary ---
Author Organization [facility] Address [address] [place] [address] Care Team Providers Care Stunt Man Name Role Phone Vamshi Man MD Primary Care Provider + [phone] Reason for Referral * Imaging (Routine) - Authorized Specialty Diagnoses / Procedures Referred By Contac t Referred To Contact Cardiology Diagnoses Chronic HFrEF (heart failure with reduced ejection fraction) (CMS/HCC V24, CMS/HCC V28) Other cardiomyopathy (CMS/HCC V24, CMS/HCC V28) Procedures Transthoracic echocardiogram (TTE) complete with PRN contrast, bubble, strain, and 3D order panel CT TTE W 2D IMAGE COMPLETE W DOPPLER ECHO & COLOR FLOW DOPPLER ECHO CT NALINI 2D COMPLETE W/CONTRAST OR W & WO CONTRAST WITH DOPPLER Manuel Aldrich MD [address] [place] [address] [place] [address] Phone: tel: fax: [facility] Referral ID Status Reason Start Date Expiration Date V isits Requested Visits Authorized [id number] Authorized 02/17/2025 02/17/2026 1 1 Reason for Visit * Reason Comments Follow-up Encounter Details Date Type Department Care Team (Latest Contact Info) Description 02/17/2025 11:20 AM EST Office Visit [facility] [address] [place] [address] Manuel Aldrich MD [address] [place] [address] Dr [address] [place] [address] Coronary artery disease involving [place] coronary artery of [place] heart without angina pectoris (Primary Dx); Chronic HFrEF (heart failure with reduced ejection fraction) (CMS/HCC V24, CMS/HCC V28); Other cardiomyopathy (CMS/HCC V24, CMS/HCC V28); Primary hypertension; Mixed hyperlipidemia Social History Tobacco Use Types Packs/Day Years [...] Sign Reading Time Taken Comments Blood Pressure 122/82 02/17/2025 11:14 AM EST Pulse 90 02/17/2025 11:14 AM EST Temperature - - Respiratory Rate - - Oxygen Saturation 99% 02/17/2025 11:14 AM EST Inhaled Oxygen Concentration - - Weight 101 kg (223 lb) 02/17/2025 11:14 AM EST Height 188 cm (6' 2 ) 02/17/2025 11:14 AM EST Body Mass Index 28.63 02/17/2025 11:14 AM EST documented in this encounter Ordered Prescriptions Prescription Sig Dispense Quantity Refills Last Filled Start Date End Date spironolactone (ALDACTONE) 25 mg tablet Take 1 tablet (25 mg total) by mouth 1 (one) time each day. 90 each 3 02/17/2025 02/17/2026 sacubitriL-valsart an (Entresto) 49-51 mg per tablet Take 1 tablet by mouth 2 (two) times a day. 180 each 3 02/17/2025 02/17/2026 carvediloL (COREG) 3.125 mg tablet Take 1 tablet (3.125 mg total) by mouth 2 (two) times a day with meals. 180 each 3 02/17/2025 02/17/2026 atorvastatin (LIPITOR) 80 mg tablet Take 1 tablet (80 mg total) by mouth 1 (one) time each day. 90 each 3 02/17/2025 02/17/2026 aspirin 81 mg EC tablet Take 1 tablet (81 mg total) by mouth 1 (one) time each day. 90 each 3 02/17/2025 02/17/2026 documented in this encounter Progress Notes * Manuel Aldrich MD - 02/17/2025 11:20 AM ESTAssociated Problem(s): Chronic HFrEF (heart failure with reduced ejection fraction) (CMS/HCC V24, CM S/HCC V28) The patient has heart failure with reduced ejection fraction. Etiology: Nonischemic cardiomyopathy Last ischemic work-up: 1. Nuclear stress test in December 2022 (no evidence of ischemia or infarct after attenuation correction was applied). 2. Cardiac CT scan (July 2023): Mild nonobstructive CAD. 3. Left heart catheterization (May 2023): No significant CAD. Nonischemic cardiomyopathy evaluation: 1. Cardiac MRI [...] immunofixation study. The patient was evaluated by [facility] in May 2023 due to his elevated serum kappa lambda ratio and they determined that the patient did not have any plasma cell disorder. 4. 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 The patient was referred to the [facility] genetic medicine program. Last documented LVEF: 1. 45 to 50% on echocardiogram done in November 2022 2. 47% by cardiac MRI done in February 2023 Current symptom classification: NYHA class 2 Guideline directed medical therapy: 1. Beta-blockers: coreg 3.125 mg BID 2. ARNI / GLORIA inhibitor / ARB: Entresto 49/51 mg orally daily 3. MRA: Spironolactone 25 mg orally daily 4. SGLT2 inhibitor: None Candidate for ICD or NATIONAL FACILITIES MANAGER: Not a candidate for an ICDdue to the LVEF Assessment and plan: 1. Continue current med regimen (unable to tolerate higher doses due to dizziness). 2. Chemistry panel to be done today 3. Echocardiogram to reevaluate LVEF Orders: Comprehensive metabolic panel; Future Lipid panel; Future Transthoracic echocardiogram (TTE) complete with PRN contrast, bubble, strain, and 3D order panel; Future perflutren lipid microsphere (DEFINDeitek Systems) 1.3 mL in sodium chloride 0.9% 8.7 mL injection * Manuel Aldrich MD - 02/17/2025 11:20 AM ESTAssociated Problem(s): CAD (coronary artery disease) The patient has a history of coronary artery disease. Currently, the patient denies any chest pain at rest or with exertion. The patient continues on secondary preventive therapy for CAD, including: aspirin, statin and beta sabiha. Will continue current therapy. Orders: Comprehensive metabolic panel; Future Lipid panel; Future * Manuel Aldrich MD - 02/17/2025 11:20 AM ESTAssociated Problem(s): Cardiomyopathy (CMS/HCC V24, CMS/HCC V28) Orders: Transthoracic echocardiogram (TTE) complete with PRN contrast, bubble, strain, and 3D order panel; Future perflutren lipid microsphere (DEFINITY) 1.3 mL in sodium chloride 0.9% 8.7 mL injection * Manuel Aldrich MD - 02/17/2025 11:20 AM ESTAssociated Problem(s): HTN (hypertension) The patient has a history of arterial hypertension. The patient's blood pressure today was noted shantell well controlled. We'll continue the current antihypertensive medication regimen. * Manuel Aldrich MD - 02/17/2025 11:20 AM ESTAssociated Problem(s): Mixed hyperlipidemia The patient has a history of hyperlipidemia. The patient is currently on atorvastatin 80 mg orally daily. We will order a new lipid panel to evaluate the patient's current lipid control and determineif any adjustment are needed in the lipid lowering therapy. Orders: Comprehensive metabolic panel; Future Lipid panel; Future * Manuel Aldrich MD - 02/17/2025 11:20 AM EST [facility] Outpatient Follow Up Note PCP: Vamshi Man MD HPI: Elissa Wilks is a 59 y.o. old male with history of heart failure reduced ejection fraction due to a nonischemic cardiomyopathy, sick sinus syndrome status post left bundle pacemaker placement in September 2024, nonobstructive coronary artery disease, arterial hypertension, hyperlipidemia, diabetes mellitus type 2, IBS, obstructive sleep apnea (currently not on CPAP therapy, per patient preference), osteoarthritis, and diverticulosis, who underwent a follow-up evaluation today. On today's visit, the patient is accompanied by his The patient states that he exercises regularly at the gym and denies any symptoms of chest pain or shortness of breath during his exercise sessions. He denies any palpitations, orthopnea, PND, or syncope. Ancillary testin. Echocardiogram (12/13/2022): Mildly reduced left ventricular systolic function with a left ventricular ejection fraction of 45 to 50%. Mild LVH. Global hypokinesis. Enlarged RV size with normal function. Ascending aorta dilation of 4.2 cm. 2. Nuclear stress test (12/20/2022): No evidence of ischemia after attenuation correction was applied. No evidence of an infarct after attenuation correction was applied. TID was noted to be normal at 1.18. Gated SPECT imaging revealed global hypokinesis and mildly reduced systolic function with an LVEF of 41%. Calcification was noted in the LAD. 3. Cardiac MRI (02/28/2023): Moderately limited examination due to motion/arrhythmia artifact. Mildly reduced left ventricular systolic function with a left ventricular ejection fraction of 47%. No focal wall motion abnormality of the left ventricle. LV wall thickness is mildly increased measuring up to 13 mm. No LVOT obstruction. No evidence of LV thrombus. Normal RV size and function. Late gadolinium enhancement imaging reveals mildly increased indistinct mid wall signal in the basal to mid inferolateral wall and possibly in the basal septal wall raising the question of an infiltrative disea se. Myocarditis not excluded. 4. Cardiac PYP scan (04/02/2023): Findings are not suggestive of TTR amyloidosis. 5. Laboratory testing (04/10/2023): Serum creatinine 0.9. Serum kappa lambda ratio at 2.25 (high). Serum free kappa level 30.15 (high). Free lambda level 13.4. Normal serum immunofixation study. Normal urine immunofixation study. The patient was subsequently evaluated by the [facility]cology service who determined that the patient did not have any plasma cell disorder. 6. Holter monitor (April 2023): Normal sinus rhythm. Average heart rate 93 bpm. Heart rate range 71-132 bpm. Frequent PACs. PAC burden 0.2%. Occasional PVCs. No sustained arrhythmias. 7. Cardiac CT scan (July 2023): No significant extracardiac extracardiac abnormalities in the visualized portions of the chest. Left main-normal. LAD- Short segment of calcified plaque in the ostialLAD causing less than 25% stenosis, mild stenosis of 25-49% in the proximal LAD. Circumflex-focal ca lcified plaque in the proximal circumflex causing less than 25% stenosis, calcified plaque in the distal circumflex causing less than 25% stenosis. RCA- focal calcified plaque in the proximal RCA causing less than 25% stenosis. The main pulmonary artery is dilated up to 32 mm in diameter. 8. 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 9. 30-day ambulatory monitoring and evaluation advisor (02/07/2024 - 03/08/2024): Predominant rhythm was a normal sinus rhythm. Occasional PVCs with a PVC burden of 0.4%. Frequent PACs with a PAC burden of 4.4%. Brief atrial runs noted. There was an episode of an atrial run with aberrant conduction on 02/09/2024 at 1:27AM. Brief episode of high-grade AV block resulting in a R to R interval 3 seconds on 03/03/2024 (aft er this event the dose of his carvedilol was decreased from 6.25 mg orally twice daily down to 3.125 mg orally twice a day; no further events noted after decreasing the dose of the carvedilol). Therewere a total of 38 patient triggered symptomatic events and during these events the patient was noted to be in a sinus rhythm. 10. Left heart catheterization (05/21/2024): Left main-normal; LAD-normal; circumflex-normal; RCA-normal. ACTIVE MEDICATIONS: Medications Taking[1] ALLERGIES: Allergies[2] SOCIAL HISTORY: Social History Tobacco Use Smoking status: Former Types: Cigarettes Smokeless tobacco: Former Substance Use Topics Alcohol use: Not Currently Alcohol/week: 1.0 standard drink of alcohol REVIEW OF SYSTEMS: Review of Systems Constitutional: Negative for malaise/fatigue. Cardiovascular: Negative for chest pain, claudication, dyspnea on exertion, leg swelling, near-syncope, orthopnea, palpitations, paroxysmal nocturnal dyspnea and syncope. Respiratory: Negative for shortness of breath. Neurological: Negative for dizziness and light-headedness. PHYSICAL EXAM: Vitals: 02/17/25 1114 BP: 122/82 Pulse: 90 SpO2: 99% Body mass index is 28.63 kg/m??. Physical Exam Vitals reviewed. Constitutional: General: He is not in acute distress. Appearance: Normal appearance. He is not ill-appearing. HENT: Head: Normocephalic. Nose: Nose normal. Cardiovascular: Rate and Rhythm: Normal rate and regular rhythm. Heart sounds: Normal heart sounds. No murmur heard. No friction rub. No gallop. Pulmonary: Effort: No respiratory distress. Breath sounds: Normal breath sounds. Musculoskeletal: General: No swelling. Skin: General: Skin is warm. Neurological: Mental Status: He is alert and oriented to person, place, and time. Mental status is at baseline. Psychiatric: Mood and Affect: Mood normal. Behavior: Behavior normal. TESTING: Lab Results Component Value Date WBC 8.2 11/25/2024 HGB 13.7 11/25/2024 HCT 40.3 (L) 11/25/2024 MCV 84.7 11/25/2024 PLT 192 11/25/2024 and Lab Results Component Value Date GLUCOSE 127 (H) 11/25/2024 CALCIUM 8.8 11/25/2024 NA 138 11/25/2024 K 3.5 11/25/2024 CO2 28 11/25/2024 CL 107 11/25/2024 BUN 12 11/25/2024 CREATININE 0.90 11/25/2024 ASSESSMENT/PLAN: Assessment & Plan Chronic HFrEF (heart failure with reduced ejection fraction) (CMS/HCC V24, CMS/HCC V28) The patient has heart failure with reduced ejection fraction. Etiology: Nonischemic cardiomyopathy Last ischemic work-up: 1. Nuclear stress test in December 2022 (no evidence of ischemia or infarct after attenuation correction was applied). 2. Cardiac CT scan (July 2023): Mild nonobstructive CAD. 3. Left heart catheterization (May 2023): No significant CAD. Nonischemic cardiomyopathy evaluation: 1. Cardiac MRI [...] immunofixation study. The patient was evaluated by [facility] in May 2023 due to his elevated serum kappa lambda ratio and they determined that the patient did not have any plasma cell disorder. 4. 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 The patient was referred to the [facility] genetic medicine program. Last documented LVEF: 1. 45 to 50% on echocardiogram done in November 2022 2. 47% by cardiac MRI done in February 2023 Current symptom classification: NYHA class 2 Guideline directed medical therapy: 1. Beta-blockers: coreg 3.125 mg BID 2. ARNI / GLORIA inhibitor / ARB: Entresto 49/51 mg orally daily 3. MRA: Spironolactone 25 mg orally daily 4. SGLT2 inhibitor: None Candidate for ICD or NATIONAL FACILITIES MANAGER: Not a candidate for an ICDdue to the LVEF Assessment and plan: 1. Continue current med regimen (unable to tolerate higher doses due to dizziness). 2. Chemistry panel to be done today 3. Echocardiogram to reevaluate LVEF Orders: Comprehensive metabolic panel; Future Lipid panel; Future Transthoracic echocardiogram (TTE) complete with PRN contrast, bubble, strain, and 3D order panel; Future perflutren lipid microsphere (DEFINITY) 1.3 mL in sodium chloride 0.9% 8.7 mL injection Coronary artery disease involving [place] coronary artery of [place] heart without angina pectoris The patient has a history of coronary artery disease. Currently, the patient denies any chest pain at rest or with exertion. The patient continues on secondary preventive therapy for CAD, including: aspirin, statin and beta sabiha. Will continue current therapy. Orders: Comprehensive metabolic panel; Future Lipid panel; Future Other cardiomyopathy (CMS/HCC V24, CMS/HCC V28) Orders: Transthoracic echocardiogram (TTE) complete with PRN contrast, bubble, strain, and 3D order panel; Future perflutren lipid microsphere (DEFINITY) 1.3 mL in sodium chloride 0.9% 8.7 mL injection Primary hypertension The patient has a history of arterial hypertension. The patient's blood pressure today was noted shantell well controlled. We'll continue the current antihypertensive medication regimen. Mixed hyperlipidemia The patient has a history of hyperlipidemia. The patient is currently on atorvastatin 80 mg orally daily. We will order a new lipid panel to evaluate the patient's current lipid control and determineif any adjustment are needed in the lipid lowering therapy. Orders: Comprehensive metabolic panel; Future Lipid panel; Future The [facility] team will continue to co-manage this patient following the plan of care as established by my initial visit and as per AHA guidelines for ongoing management and surveillance of the medical conditions described previously in this note. This will include medication titration, initiation of appropriate medications and further titration, and diagnostic studies to manage this disease process. I have applied the code G2211 to this patient???s visit as the provider managing CAD, hypertension,HFrEF, hyperlipidemia that is/are complex) leading to the extensive work up, ongoing monitoring, and management associated with the medical care of this patient.? I have a longitudinal relationship with the patient. Please be aware that the above note was completed using voice recognition software. If you have anyquestions please contact the author of this note for clarification. [1] Outpatient Medications Marked as Taking for the 02/17/25 encounter (Office Visit) with Manuel Aldrich MD Medication Sig Dispense Refill albuterol HFA (PROAIR [...] 1 (one) time each day. 90 each 3 atorvastatin (LIPITOR) 80 mg tablet Take 1 tablet (80 mg total) by mouth 1 (one) time each day. 90 each 3 bisacodyL (DULCOLAX) 5 mg EC tablet Take 2 tablets by mouth right before beginning bowel prep. See instructions provided by the office 2 tablet 0 buPROPion XL (WELLBUTRIN XL) 300 mg 24 hr tablet carvediloL (COREG) 3.125 mg tablet Take 1 tablet (3.125 mg total) by mouth 2 (two) times a day withmeals. 180 each 3 cholecalciferol (VITAMIN D-3) 25 mcg (1,000 unit) [...] (800 mg total) by mouth as needed. levocetirizine (XYZAL) 5 mg tablet linaCLOtide (Linzess) 290 mcg capsule Take 1 capsule (290 mcg total) by mouth 1 (one) time each day. 90 capsule 1 metformin HCl (METFORMIN ORAL) Take 750 tablets by mouth 1 (one) time each day. methadone (DOLOPHINE) 10 mg tablet Take 1 tablet (10 mg total) by mouth 1 (one) time each day if needed. montelukast (SINGULAIR) 10 mg tablet Take 1 [...] by mouth 2 (two) times a day. 180each 3 senna-docusate (PERICOLACE) 8.6-50 mg per tablet Take 1 tablet by mouth 4 times daily as needed. spironolactone (ALDACTONE) 25 mg tablet Take 1 tablet (25 mg total) by mouth 1 (one) time each day.90 each 3 tamsulosin (FLOMAX) 0.4 mg 24 hr capsule [...] total) by mouth at bedtime as needed. [DISCONTINUED] aspirin 81 mg EC tablet Take 1 tablet (81 mg total) by mouth 1 (one) time each day. 90 tablet 3 [DISCONTINUED] atorvastatin (LIPITOR) 80 mg tablet Take 1 tablet (80 mg total) by mouth 1 (one) time each day. 90 tablet 1 [DISCONTINUED] carvediloL (COREG) 3.125 mg tablet Take 1 tablet (3.125 mg total) by mouth 2 (two) times a day with meals. 180 tablet 1 [DISCONTINUED] isosorbide mononitrate (IMDUR) 60 mg 24 hr tablet [DISCONTINUED] sacubitriL-valsartan (Entresto) 49-51 mg per tablet Take 1 tablet by mouth 2 (two) times a day. 180 tablet 1 [DISCONTINUED] spironolactone (ALDACTONE) 25 mg tablet Take 0.5 tablets (12.5 mg total) by mouth 1 (one) time each day. 90 each 0 [DISCONTINUED] spironolactone (ALDACTONE) 25 mg tablet Take 1 tablet (25 mg total) by mouth 1 (one)time each day. Current Facility-Administered Medications for the 02/17/25 encounter (Office Visit) with Manuel Aldrich MD Medication Dose Route Frequency Provider Last Rate Last Admin [COMPLETED] lidocaine (PF) (XYLOCAINE-MPF) 1 % injection 0.5 mL 0.5 mL Once PRN Procedure Cheng Rea DPM 0.5 mL at 02/16/25 1400 [COMPLETED] triamcinolone acetonide (KENALOG-40) 40 mg/mL injection 20 mg 20 mg Once PRN Procedure Cheng Rea DPM 20 mg at 02/16/25 1400 [2] Allergies Allergen Reactions Latex Rash [place] Itching Itchy mouth and swelling of lips Penicillins Rash documented in this encounter Plan of Treatment Upcoming Encounters Date Type Department Care Team (Late st Contact Info) Description 03/30/2025 8:30 AM EST Office Visit Gastroenterology - [address] [facility] [address] [facility] [address] [place] [id number] Idalia Sandoval PA [address] [facility] [address] [place] [address] 03/31/2025 9:30 AM EST Office Visit Orthopedic Surgery - [place] [address] [facility] [address] [place] [id number] Cheng Rea DPM [address] [facility] [address] [place] [phone] 04/29/2025 11:00 AM EST Ancillary Procedure [facility] Cardiology [facility] [address] [place] [place] [id number] 07/02/2025 8:40 AM EDT Office Visit [facility] Cardiology [facility] [address] [place] [address] Angella Dickerson NP [address] [place] [address] [address] [place] [address] Scheduled Orders Name Type Priority Associated Diagnoses Orde r Schedule Transthoracic echocardiogram (TTE) complete with PRN contrast, bubble, strain, and 3D order panel Echocardiography Routine Chronic HFrEF (heart failure with reduced ejection fraction) (CMS/HCC V24, CMS/HCC V28) Other cardiomyopathy (CMS/HCC V24, CMS/HCC V28) 1 Occurrences starting 02/17/2025 until 02/17/2026 documented as of this encounter Goals Goal Patient Goal Type Associated Problems Recent Progress Patient-Stated? Author Autogenerat ed Goal Care Plan Autogenerated Problem No Eligio Cohen documented as of this encounter Procedures Procedure Name Priority Date/Time Associated Diagnosis Comments LIPID PANEL Routine 02/17/2025 12:06 PM EST Chronic HFrEF (heart failure with reduced ejection fraction) (CMS/HCC V24, CMS/HCC V28) Coronary artery disease involving [place] coronary artery of [place] heart without angina pectoris Mixed hyperlipidemia COMPREHENSIVE METABOLIC PANEL Routine 02/17/2025 12:06 PM EST Chronic HFrEF (heart failure with reduced ejection fraction) (CMS/HCC V24, CMS/HCC V28) Coronary artery disease involving [place] coronary artery of [place] heart without angina pectoris Mixed hyperlipidemia documented in this encounter Results * Lipid panel (02/17/2025 12:06 PM EST) Cholesterol Total 153 100 - 199 mg/dL [facility] Triglycerides 95 0 - 149 mg/dL [facility] 1 HDL Cholesterol 52 >39 mg/dL [facility] 1 VLDL Cholesterol Calculated 18 5 - 40 mg/dL [facility] 1 LDL Chol Calc ([facility]) 83 0 - 99 mg/dL [facility] 1 Blood Venous blood specimen / Unknown 02/17/2025 12:06 PM EST 02/17/2025 Narrative [facility] 1 - 02/18/2025 4:06 AM EST Performed at: 01 - [facility] [place] [address] [place], [place] [id number] Microfilmer: Siobhan Valdes MD, Phone: [phone] Manuel Aldrich MD LAB BLOOD ORDERABLES F inal Result [facility] 1 * (ABNORMAL) Comprehensive metabolic panel (02/17/2025 12:06 PM EST) Pathologist [facility] Glucose 152(H) 70 - 99 mg/dL [facility] 1 Blood Urea Nitrogen (BUN) 16 6 - 24 mg/dL [facility] 1 Creatinine 0.92 0.76 - 1.27 mg/dL [facility] 1 eGFR 96 >59 mL/min/1. 73 [facility] 1 BUN/Creatinine Ratio 17 9 - 20 [facility] 1 Sodium 138 134 - 144 mmol/L [facility] 1 Potassium 3.9 3.5 - 5.2 mmol/L [facility] 1 Chloride 103 96 - 106 mmol/L [facility] 1 Carbon Dioxide 21 20 - 29 mmol/L [facility] 1 Calcium 9.5 8.7 - 10.2 mg/dL [facility] 1 Protein Total 6.6 6.0 - 8.5 g/dL [facility] 1 Albumin 4.6 3.8 - 4.9 g/dL [facility] 1 Globulin Total 2.0 1.5 - 4.5 g/dL [facility] 1 Bilirubin Total 0.5 0.0 - 1.2 mg/dL [facility] 1 Alkaline Phosphatase 69 47 - 123 IU/L [facility] 1 Aspartate aminotransferase (AST) 22 0 - 40 IU/L [facility] 1 Alanine Aminotransferase (ALT) 19 0 - 44 IU/L [facility] 1 Blood Venous blood specimen / Unknown 02/17/2025 12:06 PM EST 02/17/2025 Narrative [facility] 1 - 02/18/2025 4:06 AM EST Performed at: 01 - [facility] [address] [id number] Microfilmer: Siobhan Valdes MD, Phone: [phone] Manuel Aldrich MD LAB BLOOD ORDERABLES F inal Result [facility] 1 documented in this encounter Visit Diagnoses Diagnosis Coronary artery disease involving [place] coronary artery of [place] heart without angina pectoris- Primary Chronic HFrEF (heart failure with reduced ejection fraction) ([facility] V24, [facility] V28) Other cardiomyopathy (CMS/HCC V24, CMS/[facility] V28) Primary hypertension Unspecified essential hypertension Mixed hyperlipidemia documented in this encounter Discontinued Medications Medication Sig Discontinue Reason Start Date End Da te spironolactone (ALDACTONE) 25 mg tabletIndications:Chroni c HFrEF (heart failure with reduced ejection fraction) ([facility] V24, [facility] V28) Take 0.5 tablets (12.5 mg total) by mouth 1 (one) time each day. Dose adjustment 11/25/2024 02/17/2025 brimonidine (ALPHAGAN) 0.2 % ophthalmic solution Therapy completed 12/11/2024 02/17/2025 methocarbamoL (ROBAXIN) 500 mg tablet Therapy completed 02/02/2025 02/17/2025 isosorbide mononitrate (IMDUR) 60 mg 24 hr tablet 12/19/2024 02/17/2025 atorvastatin (LIPITOR) 80 mg tablet Take 1 tablet (80 mg total) by mouth 1 (one) time each day. Reorder 11/11/2024 02/17/2025 sacubitriL-valsartan (Entresto) 49-51 mg per tablet Take 1 tablet by mouth 2 (two) times a day. Reorder 11/11/2024 02/17/2025 aspirin 81 mg EC tablet Take 1 tablet (81 mg total) by mouth 1 (one) time each day. Reorder 11/12/2024 02/17/2025 carvediloL (COREG) 3.125 mg tablet Take 1 tablet (3.125 mg total) by mouth 2 (two) times a day with meals. Reorder 11/12/2024 02/17/2025 spironolactone (ALDACTONE) 25 mg tablet Take 1 tablet (25 mg total) by mouth 1 (one) time each day. Reorder 02/17/2025 documented as of this encounter Historical Medications * This list may reflect changes made after this encounter. spironolactone (ALDACTONE) 25 mg tablet Take 1 tablet (25 mg total) by mouth 1 (one) time each day. 02/17/2025 added in this encounter Additional Health Concerns Active Problems Noted Date Diagnosed Date Autogenerated Problem 01/12/2025 documented as of this encounter Care Teams Stunt Man Relationship Specialty Start Date End Date Vamshi Man MD [address] [place] [address] PCP - General 10/06/10 documented as of this encounter
[2025-02-19 06:46] VITALS: BP 137/70; PULSE 95; RESP 20; TEMP 36.3; O2SAT 97; BMI 28.9
--- OUTSIDE RECORDS SUMMARY | 2025-02-19 07:12 | XMS_ITS | Clinical Summary ---
Author Organization [facility] Address [address] 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 Diabetes mellitus [...] 01/08/2025 Refill [facility] [address] [phone] Caprice Mary LABORATORY ANIMAL CARETAKER Type 2 diabetes mellitus with diabetic chronic kidney disease (HCC) 12/09/2024 Refill [facility] [address] [address] Caprice MaryJAMISONP Type 2 diabetes mellitus with [...] Office Visit [facility] [address] [address] Caprice Mary ARNP [address] [address] Health Maintenance Due Date Last [...] %Hb [employer] Comment: Reference Range: [place] [employer] (ADA) Guidelines: <5.7: Decreased risk for diabetes 5.7 - 6.4: Increased risk for diabetes >6.4: Ongoing Hyperglycemia of any cause <7.0: Glycemic control for adults with diabetes Estimated Average Glucose 126 mg/dL [employer] 07/16/2024 9:59 AM EDT 07/16/2024 [facility] BLOOD ORDERABLES Final Result [facility] [employer] [address] [place] [phone] from Last 3 Months or Most Recently Relevant to Health Maintenance Insurance Medicare Medicaid [place] Medicare Medicaid [place] Care Teams Rn Admit Relationship Specialty Start Date End Date Vamshi Man MD [facility] [address] [facility] [address] [place], [place] PCP - General 04/26/20
--- OUTSIDE RECORDS SUMMARY | 2025-02-19 07:12 | XMS_ITS | Clinical Summary ---
Author Organization [facility] Address [address] [place] [address] Care Team Providers Care Manufacturing Engineering Intern Name Role Phone Vamshi Man MD Primary Care Provider [phone] Encounters Date Type Department Care Team Description 01/06/2025 10:00 AM EDT Telehealth [facility] [address] [place] [address] [phone] Senior Dot Net Developer: Iliana Jaramillo CGC Cardiomyopathy, unspecified type (HCC) (Primary Dx) 01/06/2025 myChart Message [facility] [address] [place] [address] [phone] Senior Dot Net Developer: Iliana Jaramillo [facility] Genetics Follow Up from Last 3 Months [...] 12/17/2024, , 01/05/2023, Additional history exists Insurance [address] [place] [address] MEDICARE [facility] Care Teams Manufacturing Engineering Intern Relationship Specialty Start Date End Date Vamshi Man MD [address] [place] [address] [place] [id number] PCP - General Internal Medicine 07/22/24
--- OUTSIDE RECORDS SUMMARY | 2025-02-19 07:12 | XMS_ITS | Clinical Summary ---
Author Organization [facility] Address [address] [place] [address] Care Team Providers Care Drilling Engineering Manager Name Role Phone Vamshi Man MD Primary Care Provider [phone] Allergies Active Allergy Reactions Criticality Noted Date [...] age to complete this topic Care Teams Drilling Engineering Manager Relationship Specialty Start Date End Date Vamshi Man MD [address] [place] [id number] PCP - General Internal Medicine 05/02/23
--- OUTSIDE RECORDS SUMMARY | 2025-02-19 07:12 | XMS_ITS | Clinical Summary ---
Author Organization [facility] Address [address] [place] [address] Phone Care Team Providers Care Shop Technician Name Role Phone Vamshi Man MD Primary Care Provider Allergies Active Allergy Reactions Criticality Noted Date Comments Latex Rash 02/17/2021 Bremer Itching 01/29/2025 Itchy mouth and swelling of lips Penicillins Rash Low 12/17/2009 Medications albuterol HFA (PROAIR HFA ; PROVENTIL HFA ; VENTOLIN HFA) 90 mcg/actuation inhaler as needed. 009 Active ALPRAZolam (XANAX) 2 mg tablet Take 1 tablet (2 mg total) by mouth 2 (two) times a day. Active cholecalciferol (VITAMIN D-3) 25 mcg (1,000 unit) tablet Take 1 tablet (1,000 Units total) by mouth 1 (one) time each day. 021 Active DULoxetine (CYMBALTA) [address] capsule Take 1 capsule (60 mg total) by mouth 1 (one) time each day. 021 Active fluticasone HFA (Flovent HFA) 110 mcg/actuation inhaler Inhale 1 puff by mouth 1 (one) time each day. Active glipiZIDE (GLUCOTROL) 5 mg tablet Take 1 tablet (5 mg total) by mouth 2 (two) times a day before meals. Active ibuprofen (ADVIL,MOTRIN) 800 mg tablet Take 1 tablet (800 mg total) by mouth as needed. Active methadone (DOLOPHINE) 10 mg tablet Take [...] total) by mouth at bedtime as needed. Active metformin HCl (METFORMIN ORAL) Take 750 tablets by mouth 1 (one) time each day. Active Toujeo Max U-300 SoloStar 300 unit/mL (3 mL) CONCENTRATED injection pen Inject 10 Units under the skin at bedtime. Active Mounjaro 15 mg/0.5 mL injection Inject 50 mg under the skin every 7 (seven) days. Active linaCLOtide (Linzess) 290 mcg capsule Take 1 capsule (290 mcg total) by mouth 1 (one) time each day. 90 capsule 1 Active pantoprazole (PROTONIX) 40 mg EC tablet Take 1 tablet (40 mg total) by mouth 2 (two) times a day before meals. Do not crush, chew, or split. 180 tablet 1 Active buPROPion XL (WELLBUTRIN XL) 300 mg 24 hr tablet Active Arnuity Ellipta 100 mcg/actuation blister with device inhaler Active levocetirizine (XYZAL) 5 mg tablet Active nystatin (MYCOSTATIN) cream Apply 1 Application topically. Active testosterone enanthate (DELATESTRYL) 200 mg/mL injection Active polyethylene glycol (Golytely) 236-22.74-6.74 -5.86 gram solution Take 4L by mouth once for one dose. May substitue any PEG. Starting at 2PM the day before your procedure drink 1 8oz glasses at your own pace until you complete half of the gallon. Finish 2nd half of the gallon at 8PM. 4000 mL Active bisacodyL (DULCOLAX) 5 mg EC tablet Take 2 tablets by mouth right before beginning bowel prep. See instructions provided by the office 2 tablet Active polyethylene glycol-electrol ytes (NULYTELY) 420 gram solution Active tiZANidine (ZANAFLEX) 2 mg tablet Active aspirin 81 mg EC tablet Take 1 tablet (81 mg total) by mouth 1 (one) time each day. 90 each 3 025 2025 Active atorvastatin (LIPITOR) 80 mg tablet Take 1 tablet (80 mg total) by mouth 1 (one) time each day. 90 each 3 025 2025 Active carvediloL (COREG) 3.125 mg tablet Take 1 tablet (3.125 mg total) by mouth 2 (two) times a day with meals. 180 each 3 025 2025 Active sacubitriL-vals tabatha (Entresto) 49-51 mg per tablet Take 1 tablet by mouth 2 (two) times a day. 180 each 3 025 2025 Active spironolactone (ALDACTONE) 25 mg tablet Take 1 tablet (25 mg total) by mouth 1 (one) time each day. 90 each 3 025 2025 Active atorvastatin (LIPITOR) 80 mg tablet Take 1 tablet (80 mg total) by mouth 1 (one) time each day. 90 tablet 1 025 2024 Discontinued(R eorder) sacubitriL-vals tabatha (Entresto) 49-51 mg per tablet Take 1 tablet by mouth 2 (two) times a day. 180 tablet 1 2024 Discontinued(R eorder) aspirin 81 mg EC tablet Take 1 tablet (81 mg total) by mouth 1 (one) time each day. 90 tablet 3 2024 Discontinued(R eorder) carvediloL (COREG) 3.125 mg tablet Take 1 tablet (3.125 mg total) by mouth 2 (two) times a day with meals. 180 tablet 1 2024 Discontinued(R eorder) spironolactone (ALDACTONE) 25 mg tabletIndicatio ns:Chronic HFrEF (heart failure with reduced ejection fraction) (CMS/HCC V24, CMS/HCC V28) Take 0.5 tablets (12.5 mg total) by mouth 1 (one) time each day. 90 each 025 2024 Discontinued(D ose adjustment) brimonidine (ALPHAGAN) 0.2 % ophthalmic solution 2024 Discontinued(T herapy completed) isosorbide mononitrate (IMDUR) 60 mg 24 hr tablet 2024 Discontinued methocarbamoL (ROBAXIN) 500 mg tablet 2024 Discontinued(T herapy completed) spironolactone (ALDACTONE) 25 mg tablet Take 1 tablet (25 mg total) by mouth 1 (one) time each day. 2024 Discontinued(R eorder) Hospital, Clinic, or Other Facility Administered Medication Ordered Dose Route Frequency Start Date End Date Status lidocaine (PF) (XYLOCAINE-MPF) 1 % injection 0.5 mLIndications:Planta r fascial fibromatosis .5 mL Once PRN Procedure 02/16/2025 02/16/2025 Ended triamcinolone acetonide (KENALOG-40) 40 mg/mL injection 20 mgIndications:Planta r fascial fibromatosis 20 mg Once PRN Procedure 02/16/2025 02/16/2025 Ended Active Problems Problem Noted Date Diagnosed Date SSS (sick sinus syndrome) ([facility] V24, [facility] V28) 09/04/2024 Assessment & Plan (11/11/2024 3:35 [...] (coronary artery disease) 08/27/2023 Assessment & Plan (02/17/2025 12:50 PM EST): The patient has a history of coronary artery disease. Currently, the patient denies any chest pain at rest or with exertion. The patient continues on secondary preventive therapy for CAD, including: aspirin, statin and beta sabiha. Will continue current therapy. Orders: Comprehensive metabolic panel; Future Lipid panel; Future Assessment & Plan (11/11/2024 3:35 PM EDT): [...] V24, CMS/HCC V28) 2022 Assessment & Plan (02/17/2025 12:50 PM EST): Orders: Transthoracic echocardiogram (TTE) complete with PRN contrast, bubble, strain, and 3D order panel; Future perflutren lipid microsphere (DEFINITY) 1.3 mL in sodium chloride 0.9% 8.7 mL injection Assessment & Plan (11/11/2024 3:35 PM EDT): [...] immunofixation study. The patient was evaluated by [facility] in May 2023 due to his elevated serum kappa lambda ratio and they determined that the patient did not have any plasma cell disorder. 4. 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 The patient was referred to the [facility] genetic medicine program. Last documented LVEF: 45 to 50% on echocardiogram done in November 2022; 47% by cardiac MRI done in February 2023 Current symptom classification: NYHA class 2 Guideline directed medical therapy: 1. Beta-blockers: NONE 2. ARNI / GLORIA inhibitor / ARB: Entresto 49/51 mg orally daily 3. MRA: Spironolactone 25 mg orally daily Candidate for ICD or ITINERANT TEACHER ASSISTANT: Not a candidate due to the LVEF [...] immunofixation study. The patient was evaluated by [facility] in May 2023 due to his [...] orally twice a day 2. ARNI / LGORIA inhibitor / ARB: Entresto 49/51 mg orally daily 3. MRA: Spironolactone 25 mg orally daily Candidate for ICD or ITINERANT TEACHER ASSISTANT: Not a candidate due to the LVEF Plan of care: 1. Continue current medication regimen. 2. Follow-up chemistry panel. 3. Genetic testing (nonischemic cardiomyopathy panel). 4. Per the patient, he is scheduled to begin treatment for his sleep apnea in September 2023. Would recommend to continue with plans to treat his sleep apnea as directed by the sleep medicine team. Assessment & Plan (02/17/2025 12:58 PM EST): The patient has heart failure [...] immunofixation study. The patient was evaluated by [facility] in May 2023 due to his elevated serum kappa lambda ratio and they determined that the patient did not have any plasma cell disorder. 4. 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 The patient was referred to the [facility] genetic medicine program. Last documented [...] SGLT2 inhibitor: None Candidate for ICD or ITINERANT TEACHER ASSISTANT: Not a candidate for an ICDdue to [...] in sodium chloride 0.9% 8.7 mL injection Assessment & Plan (11/04/2024 7:41 PM EDT): [...] immunofixation study. The patient was evaluated by [facility] in May 2023 due to his elevated serum kappa lambda ratio and they determined that the patient did not have any plasma cell disorder. 4. 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 The patient was referred to the [facility] genetic medicine program. Last documented LVEF: [...] SGLT2 inhibitor: None Candidate for ICD or ITINERANT TEACHER ASSISTANT: Not a candidate due to the LVEF [...] immunofixation study. The patient was evaluated by [facility] in May 2023 due to his elevated serum kappa lambda ratio and they determined that the patient did not have any plasma cell disorder. 4. 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 The patient was referred to the [facility] genetic medicine program. Last documented LVEF: [...] SGLT2 inhibitor: None Candidate for ICD or ITINERANT TEACHER ASSISTANT: Not a candidate due to the LVEF [...] was referred for an evaluation with the [facility] service who determined that the patient did not have a plasma cell disorder and therefore does not have AL amyloidosis. The patient's brother has a history of a cardiomyopathy and cardiac arrhythmias and is currently hospitalized in [place] awaiting a cardiac transplant. The patient underwent genetic testing ([facility] comprehensive cardiomyopathy panel) and the test showed that he is a carrier of 1 pathogenic variant in the gene [id number] which is associated with an autosomal recessive primary carnitine deficiency. We refer the patient for an evaluation with the [facility] genetics program but the patient states [...] immunofixation study. The patient was evaluated by [facility] in May 2023 due to his elevated serum kappa lambda ratio and they determined that the patient did not have any plasma cell disorder. 4. 8. 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 The patient was referred to the [facility] genetic medicine program. Last documented LVEF: [...] mg orally daily Candidate for ICD or ITINERANT TEACHER ASSISTANT: Not a candidate due to the LVEF Orders: spironolactone (ALDACTONE) 25 mg tablet; Take 1 tablet (25 mg total) by mouth 1 (one) time each day. Chronic kidney disease, stage 2 (mild) 2 Stage 3a chronic kidney disease ([facility] V24, S/[facility] V28) 11/23/2021 Cervical spondylosis 11/23/2021 Assessment & Plan (01/01/2025 5:39 PM EDT): Patient has history of C5-[address] Mukherjee [address] [facility], states at the time he had neck [...] we will start with C-spine x-rays at [facility]. We talked about conservative treatment options [...] his dysphagia. All questions answered. 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 Renal osteodystrophy 11/23/2021 Plantar fasciitis 11/23/2021 Low back pain 11/23/2021 Lateral epicondylitis 11/23/2021 Overview (06/12/2023): s/p Modified Mrabin procedure, repair of conjoined tendon of extensor [...] current antihypertensive medication regimen. Assessment & Plan (02/17/2025 12:50 PM EST): The patient has a history [...] regimen. Mixed hyperlipidemia 02/17/2021 Assessment & Plan (02/17/2025 12:50 PM EST): The patient has a history of hyperlipidemia. The patient is currently on atorvastatin 80 mg orally daily. We will order a new lipid panel to evaluate the patient's current lipid control and determine if any adjustment are needed in the lipid lowering therapy. Orders: Comprehensive metabolic panel; Future Lipid panel; Future Assessment & Plan (11/11/2024 3:35 PM EDT): Patient is history of hyperlipidemia. Continue with atorvastatin as prescribed. Renal mass 01/06/2021 Nephrotic syndrome 01/06/2021 Gastroesophageal reflux disease 11/19/2017 Gastroparesis 10/31/2017 Diabetes mellitus type 2, un complicated ([facility] V24, CMS/[facility] V28) 04/05/2017 Chronic constipation 02/02/2017 Renal lesion [...] palpitations. He recently completed a 30-day ambulatory desk monitor. He had 38 symptomatic events during [...] actual syncope. During a recent 30-day ambulatory desk monitor, the patient was found to have [...] near syncope in the past. 30-day ambulatory desk monitor showed instances of high-grade AV block with a pause of up to 3 seconds. As a result of this, his carvedilol was decreased from 6.25 mg orally twice a day down to 3.5 mg orally twice a day. After the changing the dose of the beta-sabiha, no further episodes of high-grade AV block or sinus pauses were noted on the ambulatory desk monitor. Of note, there was no evidence [...] CT scan is scheduled for 06/20/2023 at [facility]. In the meantime, the patient will [...] Encounters Date Type Department Care Team Description 02/18/2025 Telephone [facility] Cardiology [facility] [address] [facility] [address] [place] [address] KatherynManuel Jenkins MD 02/17/2025 11:20 AM EST Office Visit [facility] Cardiology [facility] [address] [facility] [address] [place] [address] Manuel Aldrich MD Coronary artery disease involving [place] coronary artery of [place] heart without angina pectoris (Primary Dx); Chronic HFrEF (heart failure with reduced ejection fraction) (CMS/HCC V24, CMS/HCC V28); Other cardiomyopathy (CMS/HCC V24, CMS/HCC V28); Primary hypertension; Mixed hyperlipidemia 02/16/2025 2:00 PM EST Office Visit Orthopedic Surgery [facility] [address] [facility] [address] [place] [phone] Cheng Rea DPFranco Tendinitis of right ankle (Primary Dx); Plantar fascial fibromatosis 02/05/2025 7:38 AM EDT Anesthesia Event [facility] Endoscopy [address] [place] [phone] Michael Jo MD 02/05/2025 6:38 AM EDT - 02/05/2025 11:59 PM EDT Hospital Encounter [facility] [address] [place] [phone] Kash Hammonds MD Dasilva, John E, MD Johnson, Lorraine, MORA Family hx of colon cancer Discharge Disposition: Home or Self Care 01/13/2025 Telephone [facility] Cardiology [facility] [address] [facility] [address] [place] [address] Melly Kern NP 01/12/2025 7:25 PM EDT Ancillary Procedure [facility] Cardiology [facility] [address] [facility] [address] [place] [phone] 01/09/2025 Telephone Neurosurgery [place] [facility] [address] [facility] [address] [place] [phone] Cecy Fisher PA 01/01/2025 3:30 PM EDT Office Visit Orthopedic Surgery [facility] [address] [facility] [address] [place] [phone] Cheng Rea DPM Tendinitis of right ankle (Primary Dx); Plantar fascial fibromatosis 01/01/2025 12:26 PM EDT - 01/01/2025 11:59 PM EDT Hospital Encounter [facility] Xray [address] [place] [phone] Cervical spondylosis Discharge Disposition: Home or Self Care 01/01/2025 9:30 AM EDT Consult Neurosurgery [place] [facility] 175 [facility] [address] [place] [address] Cecy Fisher PA Cervical spondylosis (Primary Dx); Gastroesophageal reflux disease, unspecified whether esophagitis present; Gastroparesis; Oral phase dysphagia; Diverticulosis; Family history of colon cancer 12/08/2024 9:10 AM EDT Office Visit Gastroenterology [facility] 175 [facility] 175 [facility] [address] [place] [phone] Idalia Sandoval PA Gastroesophageal reflux disease, unspecified whether esophagitis present (Primary Dx); Gastroparesis; Oral phase dysphagia; Diverticulosis; Family history of colon cancer 11/25/2024 10:46 AM EDT - 11/25/2024 2:16 PM EDT Emergency [facility] Emergency [address] [place] [phone] Peyman Lake MD Lightheadedness (Primary Dx); Chronic HFrEF (heart failure with reduced ejection fraction) (CMS/HCC V24, CMS/HCC V28) Discharge Disposition: Home or Self Care 11/19/2024 2:00 PM EDT Office Visit Orthopedic Surgery [facility] [address] [facility] [address] [place] [phone] Cheng Rea DPM Tendinitis of left ankle (Primary Dx); Tendinitis of right ankle; Plantar fascial fibromatosis from Last 3 Months Immunizations Immunization Administration Dates Next Due H1N1 Inj 02/16/2009 Hepatitis A Adult (Havrix; V aqta) 19yo and older 06/02/2004,02/21/2003 Hepatitis B (Zxtahns-D-Fzeaz , Recombivax HB-Adult) 19yo and older 06/04/2003,12/19/2002,11/18/2002 [...] - 04/15/2019 C5-6 ACDF, Dr. Mukherjee, [facility] REPAIR Medical History Medical History Date Comments Anal fissure 11/23/2016 Chronic constipation 08/16/2017 DX:Chronic constipation Diabetes mellitus type 2, un complicated ([facility] V24, [facility] V28) 04/05/2017 Dysphagia 06/21/2016 Esophageal reflux 11/19/2017 [...] incontinence Gastroesophageal reflux disease Gastroparesis diabeticorum ( [facility] V24, [facility] V28) Hx of syphilis Non-alcoholic fatty liver disease DHARA (obstructive sleep apnea) Osteoarthritis of cervical and lumbar spine Plantar fasciitis Shoulder impingement syndrome, right Snoring Arthritis High blood pressure Asthma Social History Tobacco Use Types Packs/Day Years Used Date Smoking Tobacco: Former Cigarettes Smokeless Tobacco: Former Tobacco Cessation:Counseling Given: Not [...] Pulse 90 02/17/2025 11:14 AM EST Temperature 36.3 C (97.3 F) 02/05/2025 8:19 AM EDT Respiratory Rate 15 02/05/2025 8:39 AM EDT Oxygen Saturation 99% 02/17/2025 11:14 AM EST Inhaled Oxygen Concentration - - Weight 101 kg (223 lb) 02/17/2025 11:14 AM EST Height 188 cm (6' 2 ) 02/17/2025 11:14 AM EST Body Mass Index 28.63 02/17/2025 11:14 AM EST Plan of Treatment Upcoming Encounters Date Type Department Care Team (Late st Contact Info) Description 03/30/2025 8:30 AM EST Office Visit Gastroenterology - [address] [facility] [address] [facility] [address] [place] [phone] Idalia Sandoval PA [address] [facility] [address] [place] [address] 03/31/2025 9:30 AM EST Office Visit Orthopedic Surgery - [place] [address] [phone] Cheng Rea, DPM [address] [phone] 04/29/2025 11:00 AM EST Ancillary Procedure [facility] Cardiology [facility] [address] [place] [phone] 07/02/2025 8:40 AM EDT Office Visit [facility] [address] [place] [phone] Angella Dickerson NP [address] [place] [address] [address] [place] [phone] Health Maintenance Due Date Last Done Comments Diabetes: Annual Foot Exam 1975 Diabetes: Annual Retina Eye Exam 1975 RSV Immunization Adult Patients (1 - Risk 50-74 years 1-dose series) 2015 HIV Screening 03/25/2022 Hepatitis C Screening 03/25/2022 Medicare Annual Wellness Visit 03/25/2022 Social Influencers of Health Screening 03/25/2022 Diabetes: Blood Sugar Control Test (HGBA1C) 11/22/2022 05/25/2022 Depression Screening 04/16/2024 Diabetes: Annual Urine Albumin-Creatinine Ratio (uACR) 07/16/2025 07/16/2024 Diabetes: Annual GFR (Glomerular Filtration Rate) 02/17/2026 02/17/2025, 11/25/2024, 09/29/2024, Additional history exists Hypertension/CHF/CAD Annual BMP Blood Test 02/17/2026 02/17/2025, 11/25/2024, 09/29/2024, Additional history exists DTaP,Tdap,and Td Vaccines (4 - Td or Tdap) 09/30/2027 09/29/2017, 01/18/2012, 2005 Cholesterol Screening (Lipid Panel) 02/17/2030 02/17/2025 Colorectal Cancer Screening: Colonoscopy 02/05/2035 02/05/2025, 02/12/2020 Hepatitis B Vaccines Completed 06/04/2003, 12/19/2002, 11/18/2002 Hepatitis A Vaccines Completed 06/02/2004, 02/22/20 03 Zoster Vaccines Completed 02/06/2018, 11/26/2017 Pneumococcal Vaccine: 50+ Years Completed 02/16/2022, 2005 Influenza Vaccine Completed 12/17/2024, , 01/05/2023, Additional history exists COVID-19 Vaccine Completed 02/12/2025, , 01/30/2023, Additional history exists HIB Vaccines Aged Out [...] [employer] Implanted Type Area Anodiser Device Identifier Shelf Expiration Date Model / Serial / Lot Lead Ipg Select Secure 69cm Catheter Delivered Lead - [id number] - [id number] Implanted:Qty: 1 on 10/13/2024 by Musa Cheung MD at [facility] Cardiac Lead N/A: Heart [employer] - CARDIAC RHYTH[facility] [id number] 07/10/2026 [id number] / [id number] / Lead Pcmkr Capsure Novus 52cm - [id number] - [id number] Implanted:Qty: 1 on 10/13/2024 by Musa Cheung MD at [facility] Cardiac Lead N/A: Heart [employer] - CARDIAC RHYTH-CRDM [id number] 12/19/2025 [id number] / [id number] / Monitor Cardiac Insert Lux Dx Ii+ - [id number] - [id number] Implanted:Qty: 1 on 05/16/2024 by Musa Cheung MD at [facility] Cardiac Loop Recorder Left: Chest [employer] MGMT [id number] 09/12/2025 [id number] / [id number] / Pacemaker Cardiac [place] Xt Dr Arriola - [id number] - [id number] Implanted:Qty: 1 on 10/13/2024 by Musa Cheung MD at [facility] Cardiac Pacemaker Chest Wall [employer] - CARDIAC RHYTH-CRDM [id number] 10/11/2025 [id number] / [id number] / Medt-Card [place] Xt Dr Mri [id number] Implanted:09/16 (Quantity not on file) Cardiac Pacemaker [employer] - CARDIAC RHYTH-CRDM MILAGROS XT DR MRI [id number] / [id number] / Medt-Card [place]ag[place] Xt Dr Mri [id number] Implanted:09/16 (Quantity not on file) Cardiac Pacemaker [employer] - CARDIAC RHYTH-CRDM MILAGROS XT DR DIEUDONNE / [id number] / Hemostat Absorb 1x2 Surgicel Fibrillar - [id number] - [id number] Implanted:Qty: 1 on 10/13/2024 by Musa Cheung MD at [facility] Hemostasis Chest Wall [employer] [id number] 09/13/2026 1961 / [id number] / Procedures Procedure Name Priority Date/Time Associated Diagnosis Comments LIPID PANEL Routine 02/17/2025 12:06 PM EST Chronic HFrEF (heart failure with reduced ejection fraction) (CMS/HCC V24, CMS/HCC V28) Coronary artery disease involving [place] coronary artery of [place] heart without angina pectoris Mixed hyperlipidemia COMPREHENSIVE METABOLIC PANEL Routine 02/17/2025 12:06 PM EST Chronic HFrEF (heart failure with reduced ejection fraction) (CMS/HCC V24, CMS/HCC V28) Coronary artery disease involving [place] coronary artery of [place] heart without angina pectoris Mixed hyperlipidemia INJECTION TENDON OR LIGAMENT Routine 02/16/2025 2:00 PM EST Plantar fascial fibromatosis COLONOSCOPY Routine 02/05/2025 8:18 AM EDT Family hx of colon cancer TISSUE EXAM Routine 02/05/2025 7:56 AM EDT Family hx of colon cancer CARDIAC DEVICE CHECK- REMOTE- MURJ Routine 01/12/2025 [...] 2:00 PM EDT Tendinitis of left ankle from Last 3 Months Results * Lipid panel (02/17/2025 12:06 PM EST) Cholesterol Total 153 100 - 199 mg/dL [facility] Triglycerides 95 0 - 149 mg/dL [facility] HDL Cholesterol 52 >39 mg/dL [facility] VLDL Cholesterol Calculated 18 5 - 40 mg/dL [facility] LDL Chol Calc ([facility]) 83 0 - 99 mg/dL [facility] Blood Venous blood specimen / Unknown 02/17/2025 12:06 PM EST 02/17/2025 Narrative [facility] - 02/18/2025 4:06 AM EST Performed at: 01 - [facility] [place] [address], [place] [id number] Sales Service Rep: Siobhan Valdes MD, Phone: [phone] Manuel Aldrich MD LAB BLOOD ORDERABLES F inal Result [facility] * (ABNORMAL) Comprehensive metabolic panel (02/17/2025 12:06 PM EST) Glucose 152(H) 70 - 99 mg/dL [facility] [...] AM EST Performed at: 01 - [facility] [address] [id number] Sales Service Rep: Siobhan Valdes MD, Phone: [phone] Manuel Aldrich MD LAB BLOOD ORDERABLES F inal Result [facility] * Injection tendon or ligament (02/16/2025 2:00 PM EST) Narrative Cheng Rea DPM - 02/16/2025 2:00 PM EST Cheng Rea DPM 02/16/2025 4:55 PM Injection tendon or ligament Indications: pain Details: 25 G needle Medications: 0.5 mL lidocaine (PF) 1 %; 20 mg triamcinolone acetonide 40 mg/mL Informed Consent: Site: Foot ligament tendon Cheng Rea DPM IN CLINIC/BEDSIDE ORDERAB LES Final Result * COLONOSCOPY Anesthesia - MAC; [facility] ENDOSCOPY (02/05/2025 8:18 AM EDT) Anatomical Region Laterality Modality Other 02/05/2025 7:45 AM EDT Impressions 02/05/2025 8:20 AM EDT - Preparation of the colon was fair. - Internal hemorrhoids. - Melanosis in the colon. - One 12 mm polyp in the cecum, removed with a hot snare. Resected and retrieved. Recommendation: - Await pathology results. - Use fiber, for example Citrucel, Fibercon, Konsyl or Metamucil. - Repeat colonoscopy in 2 years for surveillance. Narrative 02/05/2025 8:20 AM EDT [facility] GI Patient Name: Elissa Wilks Procedure Date: 02/05/2025 7:45 AM Date of : 1965 Age: 59 Gender: Male Note Status: Finalized Attending MD: Kash Hammonds MD, Procedure Date No Time: 02/05/2025 Procedure: Colonoscopy Indications: Family history of colon cancer Providers: Kash Hammonds MD Referring MD: Kash Hammonds MD Medicines: Propofol per Anesthesia Complications: No immediate complications. Estimated Blood Loss: Estimated blood loss: none. Procedure: Pre-Anesthesia Assessment: - ASA Grade Assessment: II - A patient with mild systemic disease. After I obtained informed consent, the scope was passed under direct vision. Throughout the procedure, the patient's blood pressure, pulse, and oxygen saturations were monitored continuously.The Olympus Pediatric Colonoscope was introduced through the anus and advanced to the cecum, identified by appendiceal orifice and ileocecal valve. The colonoscopy was performed without difficulty. The patient tolerated the procedure well. The quality of the bowel preparation was fair. Findings: The perianal and digital rectal examinations were normal. Internal hemorrhoids were found during endoscopy. The hemorrhoids were Grade I (internal hemorrhoids that do not prolapse). A diffuse area of mild melanosis was found in the entire colon. A 12 mm polyp was found in the cecum. The polyp was semi-pedunculated. The polyp was removed with a hot snare. Resection and retrieval were complete. Estimated blood loss: none. Procedure Code(s): --- Professional --- 77854, Colonoscopy, flexible; with removal of tumor(s), polyp(s), or other lesion(s) by snare technique Diagnosis Code(s): --- Professional --- K64.0, First degree hemorrhoids K63.89, Other specified diseases of intestine D12.0, Benign neoplasm of cecum Z80.0, Family history of malignant neoplasm of digestive organs CPT copyright 2020 [employer]. All rights reserved. The codes documented in this report are preliminary and upon iv rn review may be revised to meet current compliance requirements. Kash Hammonds MD 02/05/2025 8:20:52 AM This report has been signed electronically.Kash Hammonds MD Number of Addenda: 0 Note Initiated On: 02/05/2025 7:45 AM Scope In: Scope Out: Endoscopy Department at [facility] - [address] [place] [phone] Procedure Note Kash Hammonds MD - 02/05/2025 [facility] GI Patient Name: Elissa Wilks Procedure Date: 02/05/2025 7:45 AM Date of : 1965 Age: 59 Gender: Male Note Status: Finalized Attending MD: Kash Hammonds MD, Procedure Date No Time: 02/05/2025 Procedure: Colonoscopy Indications: Family history of colon cancer Providers: Kash Hammonds MD Referring MD: Kash Hammonds MD Medicines: Propofol per Anesthesia Complications: No immediate complications. Estimated Blood Loss: Estimated blood loss: none. Procedure: Pre-Anesthesia Assessment: - ASA Grade Assessment: II - A patient with mild systemic disease. After I obtained informed consent, the scope was passed under direct vision. Throughout theprocedure, the patient's blood pressure, pulse, and oxygen saturations were monitored continuously.The Olympus Pediatric Colonoscope was introduced through theanus and advanced to the cecum, identified byappendiceal orifice and ileocecal valve. The colonoscopy was performed without difficulty. The patient tolerated the procedure well. The quality of the bowel preparation was fair. Findings: The perianal and digital rectal examinations were normal. Internal hemorrhoids were found during endoscopy.The hemorrhoids were Grade I (internal hemorrhoids thatdo not prolapse). A diffuse area of mild melanosis was found in the entire colon. A 12 mm polyp was found in the cecum. The polyp was semi-pedunculated. The polyp was removed with a hot snare. Resection and retrieval were complete. Estimated blood loss: none. Procedure Code(s): --- Professional --- 39891, Colonoscopy, flexible; with removal of tumor(s), polyp(s), or other lesion(s) by snare technique Diagnosis Code(s): --- Professional --- K64.0, First degree hemorrhoids K63.89, Other specified diseases of intestine D12.0, Benign neoplasm of cecum Z80.0, Family history of malignant neoplasm of digestive organs CPT copyright 2020 [employer]. All rights reserved. The codes documented in this report are preliminary and upon iv rn reviewmay be revised to meet current compliance requirements. Kash Hammnods MD 02/05/2025 8:20:52 AM This report has been signed electronically.Kash Hammonds MD Number of Addenda: 0 Note Initiated On: 02/05/2025 7:45 AM Scope In: Scope Out: Endoscopy Department at [facility] - [address] [place] [phone] IMPRESSION: - Preparation of the colon was fair. - Internal hemorrhoids. - Melanosis in the colon. - One 12 mm polyp in the cecum, removed with a hot snare. Resected and retrieved. Recommendation: - Await pathology results. - Use fiber, for example Citrucel, Fibercon, Konsylor Metamucil. - Repeat colonoscopy in 2 years for surveillance. Kash Hammonds MD GI~PROCEDURE ORDERABLES Final Re sult * Tissue exam (02/05/2025 7:56 AM EDT) Final Diagnosis A. 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 - Stalk margin appears negative for adenoma. 02/06/2025 1:28 PM EDT [facility] at 1328 EDT Gross Description A. Large Intestine, Cecum, polyp x1: Labeled polyp x 1, colon, cecum . Received in formalin is a 1.4 x 1.4 x 0.5 cm loo-pink pedunculated mucosal tissue fragment which is admixed with organic material. The base is inked blue. The specimen is trisected and submitted entirely in one cassette, three pieces, multiple levels. KR 02/06/2025 1:28 PM EDT [facility] Disclaimer Unless otherwise specified, all tissue is 10% NB formalin fixed and paraffin embedded. 02/06/2025 1:28 PM EDT [facility] Tissue Cecum structure / Unknown 02/05/2025 7:56 AM EDT 02/05/2025 9:39 AM EDT Kash Hammonds MD LAB PATHOLOGY ORDERABLES Final R esult [facility] [address] [place] [address], * Cardiac device check - Remote- MURJ (01/12/2025 7:22 PM EDT) Date Time Interrogation Session [id number] CV DEVICE CHECK Type Interrogation Session Remote CV DEVICE CHECK Implantable Pulse Generator Anodiser MDT CV DEVICE CHECK Implantable Pulse Generator Type IPG CV DEVICE CHECK Implantable Pulse Generator Model Milagros XT DR ARRIOLA [id number] CV DEVICE CHECK Implantable Pulse Generator Serial Number [id number] CV DEVICE CHECK Implantable Pulse Generator Implant Date 20241013 CV DEVICE CHECK Battery Remaining Longevity 176.0 CV DEVICE CHECK Battery Voltage 3.180 CV D EVICE CHECK Battery COMPLIANCE ENGINEER Trigger 2.625 CV DEVICE CHECK Battery Status Middle of Service CV DEVICE CHECK Anthony Statistic RA Percent Paced 1.99 CV DEVICE CHECK Anthony Statistic RV Percent Paced 0.04 CV DEVICE CHECK Atrial Tachy Statistic AT/AF [place] Percent 0.00 CV DEVICE CHECK Lead Channel [...] rhythm reviewed * Heart Rate Histograms reviewed us Musa Cheung MD CV IMPLANTABLE CARDIAC DEV ICE PROCEDURES Final Result * Injection tendon or ligament (01/01/2025 3:30 PM EDT) Narrative Cheng Rea DPM - 01/01/2025 3:30 PM EDT Cheng [...] Signed Date: 01/03/2025 17:45 ET Workstation ID: [id number] Transcribed By: Self Edit Transcribed Date: 01/03/2025 [...] Signed Date: 01/03/2025 17:45 ET Workstation ID: [id number] Transcribed By: Self Edit Transcribed Date: 01/03/2025 17:41 ET us Cecy Fisher PA IMG XR PROCEDURES Final Re sult * ECG-Annotated (11/26/2024) Provider Onlinda DE LOS SANTOS ECG ORDERABLES Final Result * ECG 12 lead (11/25/2024 11:12 AM EDT) Ventricular Rate ECG 71 BPM GEMUSE Atrial Rate 71 BPM GEMUSE P-R Interval 176 ms GEMUSE QRS Duration 106 ms GEMUSE Q-T Interval 402 ms GEMUSE QTc 436 ms GEMUSE P Wave [place] 24 degrees GEMUSE R [place] 0 degrees GEMUSE T [place] 58 degrees GEMUSE ECG Interpretation Normal sinus [...] LAB HEMETOLOGY METHOD 11/25/2024 9:28 AM EDT [facility] RBC 4.80 4.50 - 5.50 M/mcL LAB HEMETOLOGY METHOD 11/25/2024 9:28 AM EDT [facility] Hemoglobin 13.7 13.5 - 17.5 g/dL LAB HEMETOLOGY METHOD 11/25/2024 9:28 AM EDT [facility] Hematocrit 40.3(L) 42.0 - 54.0 % [...] % LAB HEMETOLOGY METHOD 11/25/2024 9:28 AM EDT [facility] Immature Granulocytes Relative 0.2 % LAB HEMETOLOGY METHOD 11/25/2024 9:28 AM EDT [facility] Neutrophils Absolute 4.90 1.50 - 7.00 K/mcL LAB HEMETOLOGY METHOD 11/25/2024 9:28 AM EDT [facility] Lymphocytes Absolute 2.35 1.00 - 5.00 K/mcL LAB HEMETOLOGY METHOD 11/25/2024 9:28 AM EDT [facility] Monocytes Absolute 0.79 0.20 - 1.00 K/mcL LAB HEMETOLOGY METHOD 11/25/2024 9:28 AM EDT [facility] Eosinophils Absolute 0.12 0.00 - 0.50 K/mcL LAB HEMETOLOGY METHOD 11/25/2024 9:28 AM EDT [facility] Basophils Absolute 0.05 0.00 - 0.20 K/mcL LAB HEMETOLOGY METHOD 11/25/2024 9:28 AM EDT [facility] Immature Granulocytes Absolute 0.02 0.00 - 0.03 K/mcL LAB HEMETOLOGY METHOD 11/25/2024 9:28 AM EDT [facility] Blood Venous blood specimen / Unknown Venipuncture / Unknown 11/25/2024 9:14 AM EDT 11/25/2024 9:21 AM EDT us Ayan Miranda MD LAB BLOOD ORDERABLES Final Result [facility] [address] [place] [address], * (ABNORMAL) Magnesium (11/25/2024 9:14 AM EDT) Magnesium 1.8(L) 1.9 - 2.6 mg/dL LAB CHEMISTRY METHOD 11/25/2024 9:49 AM [facility] Blood Venous blood specimen / Unknown Venipuncture / Unknown 11/25/2024 9:14 AM EDT 11/25/2024 9:21 AM EDT us Ayan Miranda MD LAB BLOOD ORDERABLES Final Result [facility] [address] [place] [address], * (ABNORMAL) Basic metabolic panel (11/25/2024 9:14 [...] 13.3 LAB CHEMISTRY METHOD 11/25/2024 10:00 AM EDT [facility] Calcium 8.8 8.5 - 10.5 mg/dL LAB CHEMISTRY METHOD 11/25/2024 10:00 AM EDT [facility] Blood Venous blood specimen / Unknown Venipuncture / Unknown 11/25/2024 9:14 AM EDT 11/25/2024 9:21 AM EDT Ayan Miranda MD LAB BLOOD ORDERABLES Final Result [facility]) [facility] [address] [place] [address], [place] [phone] * Injection tendon or ligament (11/19/2024 2:00 PM EDT) Narrative Cheng Rea DPM - 11/19/2024 2:00 PM EDT Cheng Rea DPM 11/19/2024 5:23 PM Injection tendon or ligament Indications: pain Details: 25 G needle Medications: 0.5 mL lidocaine (PF) 1 %; 20 mg triamcinolone acetonide 40 mg/mL Informed Consent: Site: Foot ligament tendon Cheng Rea DPM IN CLINIC/BEDSIDE ORDERAB LES Final Result from Last 3 Months Additional Health Concerns Active Problems Noted Date Diagnosed Date Autogenerated Problem 01/12/2025 Insurance MEDICARE [place]ICAID - [place] Advance Directives Documents on File Type Date Recorded Patient Rrt Expl anation Health Care Decision (hx) 07/31/2013 [...] (hx) 07/14/2013 AD DURBIN DIRECTIVE Care Teams Shop Technician Relationship Specialty Start Date End Date Vamshi Man MD [address] [place] [id number] PCP - General 10/06/10
--- OUTSIDE RECORDS SUMMARY | 2025-02-19 07:13 | XMS_ITS | Patient Health Record ---
Author Organization [facility] Address [address] [place] [phone] Care Team Providers Care Hvac Design Mechanical Engineer Name Role Phone Arana Clarence Unavailable [phone] Reason For Referral No Information Plan Of Treatment No Information
--- OUTSIDE RECORDS SUMMARY | 2025-02-19 07:13 | XMS_ITS | Encounter Summary ---
Author Organization [facility] Address [address] [place] [address] Care Team Providers Care Nurse Paralegal Name Role Phone Vamshi Man MD Primary Care Provider Encounter Details Date Type Department Care Team (Late st Contact Info) Description 02/18/2025 Telephone [facility] Cardiology [facility] [address] [place] [address] Manuel Aldrich MD [address] [place] [address] [address] [place] [address] Social History Tobacco Use Types [...] as of this encounter Progress Notes * Liv Serra MA - 02/18/2025 1:30 PM EST Spoke to the patient and he stated that Dr. Campa gave him a sheet with the generic name of Entresto so that he can check with his insurance if they will cover it, the one that they will cover is Entresto sprinkle 15-16mg, 6-6 ng pellet for $240 for 30 days , valsartan 160-20 mg ($60 for 30 day)valsartan 401- 80 mg ($60 for 30 days ) valsartan-hydrochlorothiazide 160-12.5 mg ,160-25, 320- 25, 80-12.5 mg ( $30 for 30 days ) Dr. Campa patient is asking if any of these would be ok to switch to as they do not cover the one he is currently on now ? I have this sheet at my desk. * Naomy Reyes - 02/18/2025 12:03 PM EST Patient came into the office states that the list that he was given for meds is not on the sheet provided. And also states that his insurance is not going to cover it. He would like us to ask provider is there anything else he may take? The number to call back is [phone] documented in this encounter Plan of Treatment Upcoming Encounters Date Type Department Care Team (Late st Contact Info) Description 03/30/2025 8:30 AM EST Office Visit Gastroenterology - [address] [place] [phone] Idalia Sandoval PA [address] [place] [address] 03/31/2025 9:30 AM EST Office Visit Orthopedic Surgery - [place] [address] [facility] [address] [place] [phone] Cheng Rea, DPM [address] [facility] [address] [facility] [address] [place] [address] 04/29/2025 11:00 AM EST Ancillary Procedure [facility] Cardiology [facility] [address] [place] [phone] 07/02/2025 8:40 AM EDT Office Visit [facility] Cardiology [facility] [place] [address] [place] [address] Angella Dickerson NP [address] [place] [address] [address] [place] [phone] documented as of this encounter Goals Goal Patient Goal Type Associated Problems Recent Progress Patient-Stated? Author Autogenerat ed Goal Care Plan Autogenerated Problem No Eligio Cohen documented as of this encounter Visit Diagnoses Not on filedocumented in this encounter Additional Health Concerns Active Problems Noted Date Diagnosed Date Autogenerated Problem 01/12/2025 documented as of this encounter Care Teams Nurse Paralegal Relationship Specialty Start Date End Date Vamshi Man MD [address] [place] [phone] PCP - General 10/06/10 documented as of this encounter
[2025-02-19 09:57] VITALS: BP 106/65; PULSE 84; TEMP 36.4; O2SAT 97
--- NOTE | 2025-02-19 10:00 | ECG_ITS ---
Test Reason : mid back pain Blood Pressure : */* mmHG Vent. Rate : 79 BPM Atrial Rate : 79 BPM P-R Int : 166 ms QRS Dur : 104 ms QT Int : 376 ms P-R-T Axes : 29 -9 55 degrees QTcB Int : 431 ms Normal sinus rhythm Normal ECG When compared with ECG of 01-Feb-2025 10:23, No significant change was found Referred By: Antnoia Madden Electronically Signed By: Vincent Collado
--- NOTE | 2025-02-19 10:02 | ED.BACK ---
HPI - Back Pain/Injury General Chief Complaint: Back Pain/Injury Stated Complaint: Back Pain Time Seen by Provider: 02/19/25 08:13 Source: patient, RN notes reviewed and old records reviewed Mode of arrival: ambulatory Limitations: no limitations History of Present Illness ED Provider: GONZALEZ Madden HPI Narrative: 59-year-old male with medical history of HTN, GERD, T2DM, BPH, DHARA, asthma, osteoarthritis, presents to the ED due to 1 month of right-sided mid back pain that is now radiating down the R posterior leg. Patient has been seen recently in the department on 02/01 for back pain was discharged home with muscle relaxers, however patient states this is not improved his back pain. Patient denies saddle paresthesias, bowel/bladder incontinence, fall/injury/trauma, fevers, chills Related Data Home Medications ?Medication ?Instructions ?Recorded ?Confirmed methadone 10 mg tablet 10 mg PO TID PRN Pain 02/19/20 01/14/25 montelukast 10 mg tablet 10 mg PO DAILY 02/19/20 01/14/25 (Singulair) duloxetine 60 mg capsule,delayed 60 mg PO DAILY 09/10/20 01/14/25 release albuterol sulfate 90 mcg/actuation 2 puff inhalation Q4H PRN Wheezing 10/27/21 01/14/25 aerosol inhaler alprazolam 2 mg tablet 1 tab PO BID PRN anxiety 10/27/21 01/14/25 multivitamin with folic acid 400 1 tab PO DAILY 10/27/21 01/14/25 mcg tablet (Tab-A-Kelsie) naloxone 4 mg/actuation nasal 1 spray intranasal DAILY 10/27/21 01/14/25 spray (Narcan) blood sugar diagnostic (FreeStyle #10 ea 07/10/22 01/14/25 Lite Strips) magnesium oxide 400 mg (241.3 mg 400 mg PO DAILY 07/10/22 01/14/25 magnesium) tablet metformin 750 mg tablet,extended 750 mg PO DAILY 07/10/22 01/14/25 release 24 hr pen needle, diabetic 33 gauge x #100 ea 07/10/22 01/14/2504/19 (Comfort EZ Pen [place]) testosterone enanthate 200 mg/mL 150 mg IM Q2W 07/10/22 01/14/25 intramuscular oil tizanidine 4 mg tablet 4 mg PO TID PRN Pain 07/10/22 01/14/25 linaclotide 290 mcg capsule 290 mcg PO DAILY PRN Constipation 12/11/22 01/14/25 (Linzess) pen needle, diabetic 31 gauge x #1,200 ea 12/11/22 01/14/25 5/16 (UltiCare Pen Needle) levocetirizine 5 mg tablet 5 mg PO DAILY 01/25/23 01/14/25 spironolactone 25 mg tablet 25 mg PO DAILY 01/25/23 01/14/25 sacubitril 49 mg-valsartan 51 mg 1 tab PO BID 04/11/23 01/14/25 tablet (Entresto) cholecalciferol (vitamin D3) 25 25 mcg PO DAILY 05/08/23 01/14/25 mcg (1,000 unit) capsule insulin glargine U-300 conc 300 8 unit subcut DAILY 08/14/23 01/14/25 unit/mL (3 mL) subcutaneous pen (Toujeo Max U-300 SoloStar) atorvastatin 80 mg tablet 80 mg PO DAILY 12/03/23 01/14/25 fluticasone furoate 100 1 inh inhalation DAILY 12/03/23 01/14/25 mcg/actuation blister powder for inhalation (Arnuity Ellipta) fluticasone propionate 50 1 spray intranasal BID 12/03/23 01/14/25 mcg/actuation nasal spray,suspension ondansetron HCl 4 mg tablet 4 mg PO Q8H PRN Nausea 12/03/23 01/14/25 bupropion HCl 150 mg 24 hr tablet, 150 mg PO QAM 02/13/24 01/14/25 extended release aspirin 81 mg tablet,delayed 81 mg PO DAILY 04/07/24 01/14/25 release bupropion HCl 300 mg 24 hr tablet, 300 mg PO DAILY 05/26/24 01/14/25 extended release carvedilol 3.125 mg tablet 3.125 mg PO BID 05/26/24 01/14/25 naproxen 500 mg tablet 500 mg PO BID PRN Pain 05/26/24 01/14/25 pen needle, diabetic, safety 32 #100 ea 05/26/24 01/14/25 gauge x (True Comfort Safety Pen Needle) tirzepatide 15 mg/0.5 mL 15 mg subcut QWEEK 05/26/24 01/14/25 subcutaneous pen injector (Tamela) Previous Rx's ?Medication ?Instructions ?Recorded hydrocortisone 2.5 % topical cream 1 appl MD BID-QID PRN hemorrhoids 07/09/20 with perineal applicator #30 grams (Procto-Med HC) ibuprofen 800 mg tablet 800 mg PO Q8H PRN pain 30 days #90 03/07/24 tabs finasteride 5 mg tablet (Proscar) 5 mg PO DAILY 90 days #90 tabs 10/06/24 tamsulosin 0.4 mg capsule 0.4 mg PO DAILY #90 caps 10/06/24 lidocaine 4 % topical gel 1 appl topical BID PRN pain #30 01/26/25 grams zolpidem 10 mg tablet 10 mg PO BEDTIME PRN insomnia 3 01/26/25 months #30 tabs lidocaine 5 % topical patch See Rx Instructions topical 02/01/25 .COMPLEX #15 ea methocarbamol 1,000 mg tablet 1,000 mg PO TID PRN muscle pain 3 02/01/25 days #9 tabs cyclobenzaprine 5 mg tablet 5 mg PO BID #10 tabs 02/19/25 prednisone 20 mg tablet 20 mg PO BID 5 days #10 tabs 02/19/25 Allergies Allergy/AdvReac Type Severity Reaction Status Date / Time Penicillins (PENICILLINS) Allergy Intermediate RASH Verified 02/19/25 06:48 latex Allergy Itching Verified 02/19/25 06:49 lactose AdvReac Intermediate Abdominal Uncoded 02/19/25 06:48 Pain PMFSH Past Medical History Medical History Pacemaker (09/2024) Diverticulosis Osteoarthritis IBS (irritable bowel syndrome) Hyperlipidemia CAD (coronary artery disease) Nonischemic cardiomyopathy CHF (congestive heart failure) Sleep apnea Obesity (BMI 30.0-34.9) Left flank discomfort Upper abdominal pain GERD (gastroesophageal reflux disease) Elevated cholesterol HTN (hypertension) Constipation by delayed colonic transit Bleeding hemorrhoids Diabetes mellitus Asthma Surgical History History of dacryocystorhinostomy H/O foot surgery History of esophagogastroduodenoscopy (EGD) (08/13/24) History of tonsillectomy History of sinus surgery History of neck surgery History of carpal tunnel release History of release of tendon History of umbilical hernia repair History of colonoscopy Family History Family History Mother History of colon cancer Brother History of liver cancer Maternal Aunt History of colon cancer Father No problems noted. 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 HEENT: ?NC, AT. MMM. EOMI, clear conjunctiva, oropharynx clear. NECK: ?Supple without lymphadenopathy.? No stiffness or restricted ROM. HEART:? Normal rate and regular rhythm, normal S1/S1, no m/r/g LUNGS:? CTAB, moving air well. No crackles or wheezes are heard. ABDOMEN: ?Soft, nontender, nondistended with good bowel sounds heard. BACK: No CVAT, no obvious deformity. EXTREMITIES: ?Without cyanosis, clubbing or edema. NEUROLOGICAL: ?Grossly nonfocal. Alert and oriented, moving all 4 extremities. Observed to ambulate with normal gait. Skin: ?Warm and dry without any rash. Medications Administered Discontinued Medications Generic Name Dose Route Start Last Admin Trade Name Freq PRN Reason Stop Dose Admin Acetaminophen 975 mg 02/19/25 10:06 02/19/25 10:19 Acetaminophen 325 Mg Tablet PO 02/19/25 10:07 975 mg ONCE ONE Administration Diazepam 5 mg 02/19/25 10:06 02/19/25 10:19 Diazepam 10 Mg/2 Ml Cartridge IM 02/19/25 10:07 5 mg STAT STA Administration Ketorolac Tromethamine 30 mg 02/19/25 10:02/19/25 10:19 Ketorolac Tromethamine 30 Mg/Ml Vial IM 02/19/25 10:07 30 mg ONCE ONE Administration Medical Decision Making Medical Decision Making [facility] Narrative: 59-year-old male with medical history of HTN, GERD, T2DM, BPH, DHARA, asthma, osteoarthritis, presents to the ED due to 1 month of right-sided mid back pain that is now radiating down the R posterior leg. Patient has been seen recently in the department on 02/01 for back pain was discharged home with muscle relaxers, however patient states this is not improved his back pain. Patient denies saddle paresthesias, bowel/bladder incontinence, fall/injury/trauma, fevers, chills VS on initial observation-BP 106/65, pulse rate of 84, respiratory rate of 20, afebrile with oral temp of 97.6?, O2 saturation 97% on room air. On physical exam Patient without leukocytosis/leukopenia, afebrile, without saddle paresthesias, bowel/bladder incontinence, history of IVDU or malignancy. On chart review patient had CT abdomen pelvis done 09/05/24 which reveals multilevel thoracolumbar spondylosis and incomplete ankylosis of the lower thoracic spine, 1 mm retrolisthesis of L3-4 and L4-5 which is most likely causing his symptoms. The patient was medicated with 975 mg p.o. Tylenol, 30 mg IM Toradol, 5 mg IM Valium with significant relief of his symptoms. I discussed with the patient his need to follow up with his primary care for physical therapy. I placed referral for [facility] [place] further evaluation and management of his chronic back pain. Differential Diagnosis Differential Diagnoses: The differential diagnosis associated with the presentation includes Thoracic back strain Thoracic radiculopathy Lumbar back strain Lumbar radiculopathy Admission/Observation Consideration of admission/observation: Escalation of care including admission/observation considered Lab Data [facility] Lab Attestation statement: I reviewed the patient's lab results. 02/19/25 10:16 02/19/25 10:16 Labs: Lab Results 02/19/25 Range/Units 10:16 WBC 9.0 (4.8-10.8) X10*3/uL RBC 4.77 (4.60-5.80) X10*6/uL Hgb 13.5 L (14.0-18.0) g/dl Hct 41.2 L (42.0-52.0) % MCV 86.4 (80.0-98.0) fL MCH 28.3 (27.0-33.0) pg MCHC 32.8 (31.0-36.0) g/dl RDW 12.8 (11.0-16.0) % Plt Count 197 (160-400) X10*3/uL MPV 9.0 L (9.4-12.4) fL Immature Gran % (Auto) 0.3 (0.0-0.4) % Neut % (Auto) 61.2 (45-73) % Lymph % (Auto) 26.3 (20-40) % [place] % (Auto) 10.4 (2-11) % Eos % (Auto) 0.9 (0-4) % Baso % (Auto) 0.9 (0-2) % Lymph # (Auto) 2.4 (1.2-4.9) X10*3/uL [place] # (Auto) 0.9 (0.1-1.2) X10*3/uL Eos # (Auto) 0.1 (0.0-0.4) X10*3/uL Baso # (Auto) 0.1 (0.0-0.2) X10*3/uL Abs Immat Gran (auto) 0.03 (0.00-0.03) X10*3/uL Absolute Neuts (auto) 5.5 (2.0-8.3) x10*3/uL Absolute Nucleated RBC 0.020 H (0.0-0.012) X10*3/uL Nucleated RBC % (auto) 0.2 (0.0-0.2) /100WBC Sodium 138 (135-145) mmol/L Potassium 3.5 (3.3-5.1) mmol/L Chloride 105 (96-108) mmol/L Carbon Dioxide 27 (22-29) mmol/L Anion Gap 10 L (12-20) BUN 12 (9-16) mg/dL Creatinine 0.85 (0.5-1.4) mg/dL Estim Creat Clear Calc 119.3 Estimated GFR > 60 Random Glucose 95 (60-115) mg/dL Calcium 9.0 (8.4-10.2) mg/dL Magnesium 1.9 (1.6-2.6) mg/dL Total Bilirubin 0.8 (0.0-1.0) mg/dL AST 23 (5-37) U/L ALT 22 (0-40) U/L Alkaline Phosphatase 58 (39-117) U/L Troponin I High Sens < 2.7 (<3.5-35.0) ng/L Total Protein 6.3 L (6.5-8.0) g/dL Albumin 4.3 (3.5-5.0) g/dL Independent Interpretation I performed an independent interpretation of an: EKG Interpretation: I personally interpreted the EKG which reveals normal sinus rhythm without ST-elevation/depression, T-wave abnormality Vent. Rate : 79 BPM Atrial Rate : 79 BPM P-R Int : 166 ms QRS Dur : 104 ms QT Int : 376 ms P-R-T Axes : 29 -9 55 degrees QTcB Int : 431 ms Normal sinus rhythm Normal ECG When compared with ECG of 01-Feb-2025 10:23, No significant change was found External Record Review External record reviewed: Inpatient record, Office record, Outpatient record, Prior outpatient labs and Prior outpatient radiology Tests considered The following testing was considered but not selected: CT thoracic spine, however patient with CT abdomen and pelvis on 09/05/2024 which reveals multilevel thoracolumbar spondylosis and incomplete ankylosis of the lower thoracic spine, no fall/injury/trauma. No indication for additional imaging today. Chronic Conditions Patient?s care impacted by: Diabetes and Hypertension Discharge Plan Discharge Clinical Impression: Strain of thoracic region Patient Disposition: Home, Self-Care Instructions: Muscle Strain (DC) Additional Instructions: You were evaluated in the ED due to upper back pain. Your lab work was reassuring as there is a significant elevation or decrease in your white blood cell count indicative of systemic infection. A CT abdomen and pelvis which was done on 09/05/2024 reveals that you have degenerative changes of the thoracolumbar region on your back, which is most likely contributing to your symptoms. You are being discharged with a course of Flexeril, and 5 days of 40 mg prednisone for back pain. Additionally, please take 500 mg of Tylenol, and 400 mg of ibuprofen every 6 hours. You can use heating pads in the area of your back of discomfort. I also recommend gentle stretching, and exercises that you can find on you tube for management at home. Prednisone can elevate your blood sugar, please check your blood sugar before and after eating while on this medication. Please follow up with your primary care doctor as you may need referral for physical therapy. I have placed a referral to [facility]. Please call their office as they will not call you. Please return to the emergency department if you experience worsening back pain, shortness of breath, chest pain, difficulty with walking, numbness or tingling to the inner thighs/genital area, bowel/bladder incontinence or any new/worsening/concerning symptoms. Prescriptions: New cyclobenzaprine 5 mg tablet 5 mg PO BID Qty: 10 0RF prednisone 20 mg tablet 20 mg PO BID 5 Days Qty: 10 0RF No Action ibuprofen 800 mg tablet 800 mg PO Q8H PRN (Reason: pain) 30 Days Qty: 90 3RF alprazolam 2 mg tablet 1 tab PO BID PRN (Reason: anxiety) albuterol sulfate 90 mcg/actuation HFA aerosol inhaler 2 puff inhalation Q4H PRN (Reason: Wheezing) multivitamin with folic acid [Tab-A-Kelsie] 400 mcg tablet 1 tab PO DAILY naloxone [Narcan] 4 mg/actuation spray,non-aerosol 1 spray intranasal DAILY lidocaine 5 % adhesive patch,medicated See Rx Instructions .ROUTE .COMPLEX Qty: 15 0RF Rx Instructions: leave on most painful area for up to 12 hrs methocarbamol 1,000 mg tablet 1,000 mg PO TID PRN (Reason: muscle pain) 3 Days Qty: 9 0RF montelukast [Singulair] 10 mg tablet 10 mg PO DAILY methadone 10 mg tablet 10 mg PO TID PRN (Reason: Pain) duloxetine 60 mg capsule,delayed release(DR/EC) 60 mg PO DAILY hydrocortisone [Procto-Med HC] 2.5 % cream with perineal applicator 1 appl MD BID-QID PRN (Reason: hemorrhoids) Qty: 30 0RF (DME) FreeStyle Lite Strips Strip See Rx Instructions .ROUTE TID Qty: 10 Rx Instructions: As directed (DME) pen needle, diabetic [Comfort EZ Pen [place]] 33 gauge x 1/4 needle See Rx Instructions .ROUTE .MEDSUPPLY Qty: 100 Rx Instructions: As directed metformin 750 mg tablet extended release 24 hr 750 mg PO DAILY tizanidine 4 mg tablet 4 mg PO TID PRN (Reason: Pain) magnesium oxide 400 mg (241.3 mg magnesium) tablet 400 mg PO DAILY testosterone enanthate 200 mg/mL oil 150 mg IM Q2W (DME) pen needle, diabetic [UltiCare Pen Needle] 31 gauge x 5/16 needle See Rx Instructions .ROUTE .MEDSUPPLY Qty: 1200 Rx Instructions: As directed Linzess 290 mcg capsule 290 mcg PO DAILY PRN (Reason: Constipation) levocetirizine 5 mg tablet 5 mg PO DAILY spironolactone 25 mg tablet 25 mg PO DAILY Entresto 49-51 mg tablet 1 tab PO BID Toujeo Max U-300 SoloStar 300 unit/mL (3 mL) insulin pen 8 unit subcut DAILY aspirin 81 mg tablet,delayed release (DR/EC) 81 mg PO DAILY bupropion HCl 150 mg tablet extended release 24 hr 150 mg PO QAM bupropion HCl 300 mg tablet extended release 24 hr 300 mg PO DAILY naproxen 500 mg tablet 500 mg PO BID PRN (Reason: Pain) Mounjaro 15 mg/0.5 mL pen injector 15 mg subcut QWEEK (DME) True Comfort Safety Pen Needle 32 gauge x 5/32 needle See Rx Instructions .ROUTE .MEDSUPPLY Qty: 100 Rx Instructions: As directed carvedilol 3.125 mg tablet 3.125 mg PO BID finasteride [Proscar] 5 mg tablet 5 mg PO DAILY 90 Days Qty: 90 3RF tamsulosin 0.4 mg capsule 0.4 mg PO DAILY Qty: 90 3RF cholecalciferol (vitamin D3) 25 mcg (1,000 unit) capsule 25 mcg PO DAILY atorvastatin 80 mg tablet 80 mg PO DAILY fluticasone propionate 50 mcg/actuation spray,suspension 1 spray intranasal BID Arnuity Ellipta 100 mcg/actuation blister with device 1 inh inhalation DAILY ondansetron HCl 4 mg tablet 4 mg PO Q8H PRN (Reason: Nausea) lidocaine 4 % gel 1 appl topical BID PRN (Reason: pain) Qty: 30 0RF Rx Instructions: apply to affected area, monitor area for any signs of rash or skin breakdown zolpidem 10 mg tablet 10 mg PO BEDTIME MDD 10mg PRN (Reason: insomnia) 90 Days Qty: 30 2RF Referrals: [facility] [Provider Group, Neurosurgery] Print Language: Mexican
[2025-02-19] MEDS: diazePAM 10 MG/2 ML CARTRIDGE 5 MG IM (10:19)
[2025-02-19 10:20] LABS: MANUAL DIFF FLAG NO
[2025-02-19 10:28] LABS: Hematocrit 41.2 % (42.0-52.0); Hemoglobin 13.5 g/dl (14.0-18.0); Imm Gran Abs Auto 0.03 X10*3/uL (0.00-0.03); Imm Gran Pct Auto 0.3 % (0.0-0.4); Lymphocytes Absolute Auto 2.4 X10*3/uL (1.2-4.9); Mean Corpuscular HGB Conc 32.8 g/dl (31.0-36.0); Mean Corpuscular Hemoglobin 28.3 pg (27.0-33.0); Mean Corpuscular Volume 86.4 fL (80.0-98.0); NRBC Abs Auto 0.020 X10*3/uL (0.0-0.012); NRBC Pct Auto 0.2 /100WBC (0.0-0.2); Platelet Count 197 X10*3/uL (160-400); Red Blood Count 4.77 X10*6/uL (4.60-5.80); White Blood Count 9.0 X10*3/uL (4.8-10.8)
[2025-02-19 10:50] LABS: Alanine Aminotransferase 22 U/L (0-40); Albumin Level 4.3 g/dL (3.5-5.0); Alkaline Phosphatase 58 U/L (39-117); Anion Gap 10 (12-20); Aspartate Amino Transferase 23 U/L (5-37); Blood Urea Nitrogen 12 mg/dL (9-16); Calcium 9.0 mg/dL (8.4-10.2); Carbon Dioxide 27 mmol/L (22-29); Chloride 105 mmol/L (96-108); Creatinine Clr Calc Pharmacy 119.3; Estimated Glomerular Filt Rate > 60; Magnesium 1.9 mg/dL (1.6-2.6); Potassium 3.5 mmol/L (3.3-5.1); Sodium 138 mmol/L (135-145); Total Protein 6.3 g/dL (6.5-8.0)
[2025-02-19 10:58] LABS: Troponin-I High Sensitivity < 2.7 ng/L (<3.5-35.0)
[2025-02-19 12:28] VITALS: BP 106/65; PULSE 84; RESP 18; TEMP 36.4; O2SAT 97
== END 2025-02-19 12:28 | disposition home or self-care (01) ==
PROVIDERS: Emergency Provider Emergency Medicine; PCP Internal Medicine
DX: S29.012A Strain of muscle and tendon of back wall of thorax, initial encounter (principal); X58.XXXA Exposure to other specified factors, initial encounter; Y93.9 Activity, unspecified; Y92.9 Unspecified place or not applicable; Y99.9 Unspecified external cause status; M54.9 Dorsalgia, unspecified; E11.9 Type 2 diabetes mellitus without complications; I11.0 Hypertensive heart disease with heart failure; I50.9 Heart failure, unspecified; Z95.0 Presence of cardiac pacemaker
CPT/HCPCS: 36415; 80053; 83735; 84484; 85025; 93005; 96372; 99284; J1885; J3360

== ENCOUNTER → 2025-02-19 10:00 | Outpatient (BNV) | payer MEDICARE, MEDICAID, SELFPAY | PROVIDERS: Emergency Provider Emergency Medicine; PCP Internal Medicine; Visit Provider Internal Medicine Cardiovascular Disease | DX: M54.6 Pain in thoracic spine (principal) | CPT/HCPCS: 93010 ==